=== PATIENT | female | born 1945 | race Caucasian/White ===

== ENCOUNTER 2022-05-10 14:53 | Outpatient (CLI) | payer MEDICARE, BC, SELFPAY ==
--- NOTE | 2022-05-10 15:00 | CRLHL7_ITS ---
For Patients: As a result of the Century Cures Act, medical imaging exams and procedure reports are released immediately into your electronic medical record. You may view this report before your referring provider. If you have questions, please contact your health care provider. INDICATION: Right lateral calf pain. COMPARISON: None. TECHNIQUE: A compression venous ultrasound exam was performed of the right lower extremity using mcfarlane-scale imaging, color Doppler and spectral Doppler analysis. FINDINGS: Sonographic imaging of the right lower extremity demonstrates normal compressibility and color Doppler venous blood flow within the common femoral vein, deep femoral vein, and the proximal greater saphenous vein. Within the thigh, the femoral vein is patent and compressible. At a lower level, the popliteal, peroneal, and posterior tibial veins also show normal compressibility and color Doppler venous blood flow. Limited imaging of the contralateral groin demonstrates a normal spectral waveform and color Doppler venous blood flow within the left common femoral vein. IMPRESSION: Negative for acute DVT in the right lower extremity. Dictated by Rosalia Velarde MD @ 05/11/2022 2:08:42 AM (Electronically Signed)
--- OUTSIDE RECORDS SUMMARY | 2022-05-10 15:00 | XMS_ITS | Encounter Summary ---
:1945 Author Organization [facility] Address [address], [place] [address] Care Team Providers Name Role Phone Feliciano Uribe MD Primary Care Provider Reason for Visit Procedure/Equipment (Routine) - Incomplete Specialty Diagnoses / Procedures Referred By Contact Refer red To Contact Diagnoses Chronic pain of both knees Juan Diego Luo MD Procedures XR Knee Bilat 3 Views [address] [place], [place] [address] Referral ID Status Reason Start Date Expiration Date Visits V isits Requested Authorized [id number] Incomplete 04/07/2020 07/07/2021 1 1 Encounter Details Date Type Department Care Team Description 04/07/2020 Ancillary Amo Juan Diego Luo M D Chronic pain of both Procedure Radiology [address] [address] [place] [address] [phone] Social History Tobacco Use Types Packs/Day Years Used Date Smoking Tobacco: Never Smokeless Tobacco: Never Alcohol Use Standard Drinks/Week Comments Not Currently 0 (1 standard drink = 0.6 oz pure alcoho l) Sex Assigned at Date Recorded Not on file documented as of this encounter Plan of Treatment Not on filedocumented as of this encounter Procedures Procedure Name Priority Date/Time Associated Diagnosis Comme nts XR KNEE BILAT 3 Routine 04/07/2020 10:31 AM Chronic pain of vijay th Results for this VIEWS CDT knees procedure are i n the results section. documented in this encounter Results XR Knee Bilat 3 Views (04/07/2020 10:31 AM CDT) Anatomical Region Laterality Modality Lower Extremity, Knee Digital Radiograph y Specimen (Source) Anatomical Collection Method Collection Time Re ceived Time Location / / Volume Laterality 04/07/2020 10:20 AM CDT Impressions 04/07/2020 11:09 AM CDT COMPARISON: ??None. FINDINGS: ?? Right knee: Moderate tricompartmental guru int space narrowing. Chondrocalcinosis in the medial and lateral compartments. No effusion. Small dorsal patellar osteophytic spurring. Left knee: Mild tricompartmental joint s pace narrowing. Chondrocalcinosis in the lateral compartment. No effusion. Procedure Note Jack Burris MD - 04/07/2020Fo rmatting of this note might be different from the original. IMPRESSION COMPARISON: None. FINDINGS: Right knee: Moderate tricompartmental guru int space narrowing. Chondrocalcinosis in the medial and lateral compartments. No effusion. Small dorsal patellar osteophytic spurring. Left knee: Mild tricompartmental joint s pace narrowing. Chondrocalcinosis in the lateral compartment. No effusion. Juan Diego Luo MD RAD GD documented in this encounter Visit Diagnoses Diagnosis Chronic pain of both knees documented in this encounter Care Teams Junior Financial Analyst Relationship Specialty Start Date End Date Feliciano Uribe MD PCP - General 02/17/[address] [place] [address] documented as of this encounter
--- OUTSIDE RECORDS SUMMARY | 2022-05-10 15:00 | XMS_ITS | Clinical Summary ---
:1945 Author Organization [facility] Address [address] [address] Care Team Providers Name Role Phone Feliciano Uribe MD Primary Care Provider Source Comments You are receiving this document as you are listed as the primary care provider,follow-up provider, or the patient has been referred to you for consultation.This is in compliance with the Medicare and Medicaid EHR Incentive Program,which states Providers who transition their patient to another setting of careor provider of care or refers their patient to another provider of care shouldprovide summarycare record for each transition of care or referral. [address] street Allergies No known active allergies Medications Medication Sig Dispensed Refills Start Date End Date Status amLODIPine (NORVASC) Take 1 Tablet by 90 Tablet 3 03/27/2019 Active 10 MG tablet mouth daily. atorvastatin Take 1 Tablet by 11 03/27/2019 Active (LIPITOR) 10 MG mouth daily. tablet chlorthalidone Take 1 Tablet by 90 Tablet 3 03/27/2019 Active (HYGROTON) 50 MG mouth daily. tablet FLUoxetine (PROZAC) Take 1 Capsule by 90 Capsule 3 03/27/2019 Active 40 MG capsule mouth daily. nitroglycerin Place 1 Tablet 100 Tablet 11 03/27/2019 Active (NITROSTAT) 0.4 MG under tongue every sublingual tablet 5 minutes as needed for Chest Pain. If no relief after 5 min call 911;continue 1 tab every 5 min max 3 tab valACYclovir Take 1 Tablet by 0 03/27/2019 Active (VALTREX) 1 g tablet mouth two times a day. Cholecalciferol 0 03/27/2019 Act johnny (VITAMIN D3) 45592 units TABS levothyroxine Take 175 mcg by 90 Tablet 3 03/27/2019 Active (SYNTHROID) 137 MCG mouth daily. tablet multivitamin Take 1 Tablet by 30 Tablet 11 03/27/2019 Active (THERAGRAN) tablet mouth daily. calcium carbonate Take 1 Tablet by 0 03/27/2019 Active oyster shell (OYSTER mouth two times a SHELL) 500 mg day. elemental Ca tablet drug not in computer Cyanocobalamin 0 03/27/2019 Active (vitamin B 12) alendronate Take 1 Tablet by 12 Tablet 3 04/07/2020 Active (FOSAMAX) 70 MG mouth once every tablet week. Take 30 minutes before first lsol-dojxv-fpjkmggk on. Avoid lying down for 30 minutes. lisinopril (ZESTRIL) Take 1 Tablet by 90 Tablet 3 04/07/2020 Active 10 MG tablet mouth daily. celecoxib (CELEBREX) Take 1 Capsule by 180 Capsule 2 0 Active 100 MG capsule mouth two times daily as needed for Pain. 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 Hypothyroidism 04/07/2019 CAD (coronary artery disease) 04/07/2019 HTN (hypertension) 04/07/2019 Hyperlipidemia 04/07/2019 Anxiety 04/07/2019 Immunizations Name Administration Dates Next Due DT Ped 01/30/1980 Influenza, Unspecified Formulation 06/21/2020 Social History Tobacco Use Types Packs/Day Years Used Date Smoking Tobacco: Never Smokeless Tobacco: Never Alcohol Use Standard Drinks/Week Comments Not Currently 0 (1 standard drink = 0.6 oz pure alcoho l) Sex Assigned at Date Recorded Not on file Last Filed Vital Signs Vital Sign Reading Time Taken Comments Blood Pressure 181/88 04/07/2020 9:21 AM CDT Pulse 78 04/07/2020 9:21 AM CDT Temperature 36.1 ??C (96.9 ??F) 04/07/2020 9:21 AM CDT Respiratory Rate - - Oxygen Saturation - - Inhaled Oxygen Concentration - - Weight 60.8 kg (134 lb) 04/07/2020 9:21 AM CDT Height 152 cm (4' 11.84) 04/07/2019 12:52 PM CDT Body Mass Index 26.31 04/07/2019 12:52 PM CDT Plan of Treatment Health Maintenance Due Date Last Done Comments Hep C Screening (Preventive 1945 Services) Medicare Annual Wellness 1945 Visit COVID-19 Vaccine (#1) 1945 Zoster/Shingles (1 of 2) 1996 Dexa 2011 Influenza (#1) 2022 06/21/2020, 06/21/2020, 06/28/2018, Additional history exists DTaP/Tdap/Td (4 - Tdap) 05/02/2022 05/02/2012, 03/10/2005, 01/30/1980 Pneumococcal 65+ Yrs Completed 01/12/2015, 11/28/2013, 08/27/2007 HepA Aged Out No longer eligib le based on patient 's age to complete this topic HepB Aged Out No longer eligib le based on patient 's age to complete this topic Hib Aged Out No longer eligib le based on patient 's age to complete this topic IPV (Polio) Aged Out No longer eligib le based on patient 's age to complete this topic MCV4 Aged Out No longer eligib le based on patient 's age to complete this topic Insurance Payer Benefit Plan / Subscriber ID Effective Dates Phone Addre ss Type Group MEDICARE MEDICARE [id number] 1997-Presen [phone] M edicare MANAGED CARE t 66 BCBS BCBS BCBS [place] [id number] 2016-Presen [phone] [address] [address] Medicare BLUE t [address] [place] [address] Care Teams Radiologic Technologist Mammogram Relationship Specialty Start Date End Date Feliciano Uribe MD PCP - General 02/17/191999 [place] [address]
--- OUTSIDE RECORDS SUMMARY | 2022-05-10 15:00 | XMS_ITS | Encounter Summary ---
:1945 Author Organization [employer] Address [address] [address] Care Team Providers Name Role Phone Feliciano Uribe MD Primary Care Provider Encounter Details Date Type Department Care Team Description 04/07/2020 Lab Visit [facility] [place] [address] [place] [address] anti-inflammatories (NSAID) [phone] Social History Tobacco Use Types Packs/Day Years Used Date Smoking Tobacco: Never Smokeless Tobacco: Never Alcohol Use Standard Drinks/Week Comments Not Currently 0 (1 standard drink = 0.6 oz pure alcoho l) Sex Assigned at Date Recorded Not on file documented as of this encounter Plan of Treatment Not on filedocumented as of this encounter Procedures Procedure Name Priority Date/Time Associated Comments Diagnosis CBC AND DIFFERENTIAL Routine 04/07/2020 10:11 intermediate manager curren t Results for this PANEL AM CDT use of procedure are i n non-steroidal the results anti-inflammatories section. (NSAID) CREATININE / GFR Routine 04/07/2020 10:11 [facility] current Re sults for this AM CDT use of procedure are i n non-steroidal the results anti-inflammatories section. (NSAID) COMPLETE BLOOD Routine 04/07/2020 10:11 intermediate manager current Resu lts for this COUNT-W/DIFF AM CDT use of procedure are i n non-steroidal the results anti-inflammatories section. (NSAID) AST Routine 04/07/2020 10:11 intermediate manager current Result s for this AM CDT use of procedure are i n non-steroidal the results anti-inflammatories section. (NSAID) documented in this encounter Results Complete Blood Count-W/Diff (04/07/2020 10:11 AM CDT) P athologist Signature WBC 5.9 3.5 - 10.5 04/07/2020 [facility] x10(9)/L 10:47 AM CDT LABORATORY RBC 4.50 3.90 - 04/07/2020 [facility] 5.03 10:47 AM CDT LABORATORY x10(12)/L Hemoglobin 13.3 12.0 - 04/07/2020 [facility] 15.5 g/dL 10:47 AM CDT LABORATORY HCT 41.2 34.9 - 04/07/2020 [facility] 44.5 % 10:47 AM CDT LABORATORY MCV 91.6 80.0 - 04/07/2020 [facility] 100.0 fL 10:47 AM CDT LABORATORY MCH 29.6 27.6 - 04/07/2020 [facility] 33.3 pg 10:47 AM CDT LABORATORY MCHC 32.3 31.5 - 04/07/2020 [facility] 35.2 g/dL 10:47 AM CDT LABORATORY RDW 14.0 11.9 - 04/07/2020 [facility] 15.5 % 10:47 AM CDT LABORATORY Platelets 183 150 - 450 04/07/2020 [facility] x10(9)/L 10:47 AM CDT LABORATORY Automated NRBC 0 <=0 /100 04/07/2020 [facility] WBC 10:47 AM CDT LABORATORY Neutrophil 4.2 1.7 - 7.0 04/07/2020 [facility] Absolute 10(9)/L 10:47 AM CDT LABORATORY Lymphocyte 1.0 1.0 - 4.8 04/07/2020 [facility] Absolute 10(9)/L 10:47 AM CDT LABORATORY Monocytes 0.6 0.2 - 0.9 04/07/2020 [facility] [place] Absolute 10(9)/L 10:47 AM CDT LABORATORY Eosinophil 0.1 0.0 - 0.5 04/07/2020 [facility] Absolute 10(9)/L 10:47 AM CDT LABORATORY Basophil 0.0 0.0 - 0.3 04/07/2020 [facility] Absolute 10(9)/L 10:47 AM CDT LABORATORY Immature Gran % 0.3 0.0 - 0.5 04/07/2020 [facility] % 10:47 AM CDT LABORATORY Specimen Anatomical Collection Method / Collection Time Recei rylee Time (Source) Location / Volume Laterality Blood Venipuncture / 04/07/2020 10:11 0 Unknown AM CDT 10:11 AM CDT Juan Diego Luo MD LAB_1 Performing Organization Address City/[facility]/ZIP Code Phon e Number [facility] [address] [place] [address] AST - Aspartate Aminotransferase (04/07/2020 10:11 AM CDT) P athologist Signature AST (SGOT) 26 10 - 40 U/L 04/07/2020 [facility] 11:00 AM CDT LABORATORY Specimen Anatomical Collection Method / Collection Time Recei rylee Time (Source) Location / Volume Laterality Blood Venipuncture / 04/07/2020 10:11 0 Unknown AM CDT 10:11 AM CDT Juan Diego Luo MD LAB_1 Performing Organization Address [facility] Code Phon e Number [facility] [address] [place] [address] CREAT - Creatinine (04/07/2020 10:11 AM CDT) athologist Signature Creatinine 0.70 0.55 - 04/07/2020 [facility] 1.02 mg/dL 11:00 AM CDT LABORATORY GFR, Estimated >60 >60 04/07/2020 [facility] mL/min/1.7 11:00 AM CDT LABORATORY 3m2 Specimen Anatomical Collection Method / Collection Time Recei rylee Time (Source) Location / Volume Laterality Blood Venipuncture / 04/07/2020 10:11 0 Unknown AM CDT 10:11 AM CDT Juan Diego Luo MD LAB_1 Performing Organization Address City/[facility] Code Phon e Number [facility] [address] [place] [address] documented in this encounter Visit Diagnoses Diagnosis pen[facility]entiary current use of non-steroidal a nti-inflammatories (NSAID) Encounter for long-term (current) use of non-steroidal anti-inflammatories documented in this encounter Care Teams Director Of Sustainability Relationship Specialty Start Date End Date Feliciano Uribe MD PCP - General 02/17/19[address] [place] [address] documented as of this encounter
--- OUTSIDE RECORDS SUMMARY | 2022-05-10 15:00 | XMS_ITS | Encounter Summary ---
:1945 Author Organization [facility] Address [address] [place] [address] Care Team Providers Name Role Phone Feliciano Uribe MD Primary Care Provider Encounter Details Date Type Department Care Team Description 04/08/2019 Notes/Orders [place] [address] [place] [address] [address] [place], [place] [address] (Wo rk) Social History Tobacco Use Types Packs/Day Years Used Date Smoking Tobacco: Never Smokeless Tobacco: Never Alcohol Use Standard Drinks/Week Comments Not Currently 0 (1 standard drink = 0.6 oz pure alcoho l) Sex Assigned at Date Recorded Not on file documented as of this encounter Plan of Treatment Not on filedocumented as of this encounter Visit Diagnoses Not on filedocumented in this encounter Care Teams Manager R D Relationship Specialty Start Date End Date Feliciano Uribe MD PCP - General 02/17/19[address] [place] [address] documented as of this encounter
--- OUTSIDE RECORDS SUMMARY | 2022-05-10 15:00 | XMS_ITS | Encounter Summary ---
:1945 Author Organization [facility] Address [address] [place] [address] Care Team Providers Name Role Phone Unavailable Primary Care Provider Unavailable Encounter Details Date Type Department Care Team Description 08/27/1989 PN Conversion Only STRUCTURAL METAL WORKER [address] [place] [address] Social History Tobacco Use Types Packs/Day Years Used Date Smoking Tobacco: Never Assessed Sex Assigned at Date Recorded Not on file documented as of this encounter Plan of Treatment Not on filedocumented as of this encounter Visit Diagnoses Not on filedocumented in this encounter
--- OUTSIDE RECORDS SUMMARY | 2022-05-10 15:00 | XMS_ITS | Encounter Summary ---
:1945 Author Organization [facility] Address [address], [place] [address] Care Team Providers Name Role Phone Feliciano Uribe MD Primary Care Provider Reason for Referral (Routine) - Closed Specialty Diagnoses / Procedures Referred By Contact Refer red To Contact Diagnoses Primary osteoarthritis of left knee Juan Diego Luo MD Procedures Triamcinolone Acet Inj Nos: (per 10 mg) [address] [place], [place] [address] Referral ID Status Reason Start Date Expiration Date Visits Requ ested Visits Authorized [id number] Closed 04/07/2020 07/07/2021 1 1 Procedure/Equipment (Routine) - Incomplete Specialty Diagnoses / Procedures Referred By Contact Refer red To Contact Diagnoses Chronic pain of both knees Juan Diego Luo MD Procedures XR Knee Bilat 3 Views [address] [place], [place] [address] Referral ID Status Reason Start Date Expiration Date Visits V isits Requested Authorized [id number] Incomplete 04/07/2020 07/07/2021 1 1 Reason for Visit Reason Comments Follow-up Encounter Details Date Type Department Care Team Description 04/07/2020 Office Visit Juan Diego Matthews M D Pseudogout (Primary Dx); Rheumatology [address] [facility] Chondrocalcinosis; [address] [facility] Primary osteoarthritis of both ankles; [place] [address] [place], [place] director long term care current use of non -steroidal anti-inflammatories (NSAID); [phone] [id number] Chronic pain of both knees; [phone] Primary osteoar thritis of left knee (Work) Social History Tobacco Use Types Packs/Day Years Used Date Smoking Tobacco: Never Smokeless Tobacco: Never Alcohol Use Standard Drinks/Week Comments Not Currently 0 (1 standard drink = 0.6 oz pure alcoho l) Sex Assigned at Date Recorded Not on file documented as of this encounter Last Filed Vital Signs Vital Sign Reading Time Taken Comments Blood Pressure 181/88 04/07/2020 9:21 AM CDT Pulse 78 04/07/2020 9:21 AM CDT Temperature 36.1 ??C (96.9 ??F) 04/07/2020 9:21 AM CDT Respiratory Rate - - Oxygen Saturation - - Inhaled Oxygen Concentration - - Weight 60.8 kg (134 lb) 04/07/2020 9:21 AM CDT Height - - Body Mass Index 26.31 04/07/2019 12:52 PM CDT documented in this encounter Patient Instructions Patient InstructionsJuan Diego Luo MD - 04/07/2020 9:30 AM CDT Most of your pain is likely from osteoarthritis = age related cartilage wear. On top that, you've occasionally had pseudogout, which is usually red, swollen, very painful - for that you can use prednisone. I've sent in a new prescription for prednisone. Lets x-ray the knees today, lower level (basement) of this building. I suspect you have some arthritis there; we could do a cortisone shot in the knee. Also, today, lab - lab is on this floor, right across the matias. I'll be checking blood counts, liverand kidney function. Instead of naproxen (aleve), I'd recommend celebrex (celecoxib) 100 mg up to twice daily as needed for pain. Tylenol 1000 mg up to 3 times daily is also safe and can be used with the celecoxib. Recheck in 6 months, sooner if problem. documented in this encounter Progress Notes Juan Diego Luo MD - 04/07/2020 9:30 AM CDT RHEUMATOLOGY RECHECK This note was generated with voice activated robotics mechanic software and may contain typographical and word substitution errors. CC: Follow-up probable episodes of pseudogout, chondrocalcinosis, mild hyperuricemia, osteoarthritisof the ankles, osteoarthritis knees HPI: I initially evaluated her March,, she gets her primary care at [facility]. She described occasional attacks of severe ankle pain. She had an episode in June, where the right wrist got red and swollen. X-ray had shown chondrocalcinosis at the triangular fibrocartilage of the wrist. I gave her prednisone 20-40 mg for 1-10 days for gout attacks. She also had mild hyperuricemia, uricacid 7.8 in 2013 and was on chlorthalidone. She also had some osteoarthritis of the ankles but was still able to walk several miles daily. She returns for a 1 year follow-up. Interval history is reviewed. In 2018 she underwent a left ankle arthroscopic debridement the osteochondral lesion. She has done pretty well with this, is able to walk 2 or 3 miles daily. A new issue is that her left knee bothers her, she feels like it can give out at times. It can bother with walking sometimes. She estimates that she may have had 1 or 2 attacks of pseudogout, 1 in the ankle, 1 in the wrist since I saw her last and she use prednisone appropriately. She points out that she has been taking Aleve up to 2 tablets twice daily. She actually has a history of a gastric bypass and I have told her probably that is not a good idea. We are going to try Celebrex instead which I think would be safer. She has a little bit of dermatitis on the right 2nd finger, I suggested some topical hydrocortisone cream. She describes intermittent paresthesias hands and feet but nothing progressive. SH: , retired PMH: Updated in EMR MEDS: Updated in EMR but notable for: Prednisone 20-40 mg daily for 1-10 days for pseudogout or goutattacks. Aleve 2 tablets b.i.d. to be discontinued and switched to Celebrex 100 mg b.i.d. ADR/ALLERGIES: Updated in EMR ROS: Review of systems form from today's visit was reviewed with the patient, placed into SDOC, and is negative except: PAIN & RAPID3: In flowsheet if completed by patient. OBJECTIVE: VS: Per flow sheet. General: NAD. Eyes: Externally clear. Chest: CTA Musculoskeletal: All 4 limbs are examined. Mildly reduced range of motion right wrist but no swelling or erythema. Elbows shoulders and hips move normally. No warmth swelling or erythema in the knees, minimal crepitation. Ankles have good range of motion without swelling. 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 It sounds like she has had a couple episodes of pseudogout and I haverenewed her prednisone to take as needed for those flare ups. 2: She describes some new or issues in the left knee, probably has some degenerative change there. X-rays were obtained today. She would like to try cortisone injection for the left knee and after verbal consent and sterile prep, the left knee was injected using a medial subpatellar approach with 60 mg of triamcinolone and 3 cc of lidocaine. She tolerated it well. 3: She has actually been taking Aleve up to 2 tablets twice daily to manage arthritis pain. She has a history of a gastric bypass and I would worry about developing an anastomotic ulcer using the Aleve. Therefore I have suggested we try Celebrex 100 mg b.i.d. which is safer on the stomach and she can also supplement this with Tylenol. I will obtain CBC AST and creatinine today because of chronic NSAID usage. 4: Given the new medication of Celebrex and the cortisone injection in the knee, we are going to plan have her come back in about 6 months, sooner if problem arises. Feliciano Uribe MD, [facility], [place] documented in this encounter Plan of Treatment Not on filedocumented as of this encounter Results XR Knee Bilat 3 [...] effusion. Juan Diego Luo MD RAD GD AST - Aspartate Aminotransferase (04/07/2020 10:11 AM CDT) athologist Signature AST (SGOT) 26 10 - 40 U/L 04/07/2020 [facility] 11:00 AM CDT LABORATORY Specimen Anatomical Collection Method / Collection Time Recei rylee Time (Source) Location / Volume Laterality Blood Venipuncture / 04/07/2020 10:11 0 Unknown AM CDT 10:11 AM CDT Juan Diego Luo MD LAB_1 Performing Organization Address City/State/ZIP Code Phon e Number [facility] [address] [place] [address] CREAT - Creatinine (04/07/2020 10:11 AM CDT) athologist Signature Creatinine 0.70 0.55 - 04/07/2020 [facility] 1.02 mg/dL 11:00 AM CDT LABORATORY GFR, Estimated >60 >60 04/07/2020 [facility] mL/min/1.7 11:00 AM CDT LABORATORY 3m2 Specimen Anatomical Collection Method / Collection Time Recei rylee Time (Source) Location / Volume Laterality Blood Venipuncture / 04/07/2020 10:11 0 Unknown AM CDT 10:11 AM CDT Juan Diego Luo MD LAB_1 Performing Organization Address City/State/ZIP Code Phon e Number [facility] [address] [place] [address] documented in this encounter Visit Diagnoses Diagnosis Pseudogout - Primary Other disorder of calcium metabolism Chondrocalcinosis Other disorder of calcium metabolism Primary osteoarthritis of both ankles director long term care current use of non-steroidal a nti-inflammatories (NSAID) Encounter for long-term (current) use of non-steroidal anti-inflammatories Chronic pain of both knees Primary osteoarthritis of left knee Primary localized osteoarthrosis, lower leg Chronic pain of both knees documented in this encounter Care Teams Respiratory Care Instructor Relationship Specialty Start Date End Date Feliciano Uribe MD PCP - General 02/17/191999 [place], [place] [id number] documented as of this encounter
--- OUTSIDE RECORDS SUMMARY | 2022-05-10 15:00 | XMS_ITS | Encounter Summary ---
:1945 Author Organization [employer] Address [address] [place] [address] Care Team Providers Name Role Phone Feliciano Uribe MD Primary Care Provider Reason for Visit Reason Comments Consult, New Patient Encounter Details Date Type Department Care Team Description 04/07/2019 Initial Consult Juan Dieog Matthews, Pseudogout (Primary Dx); Rheumatology Chondrocalcinosis; [address] Primary osteo arthritis of both ankles; [address] [address] Osteochondritis dessicans; [facility], Hypothyroid ism, unspecified type [address] [place] [address] [phone] Social History Tobacco Use Types Packs/Day Years Used Date Smoking Tobacco: Never Smokeless Tobacco: Never Alcohol Use Standard Drinks/Week Comments Not Currently 0 (1 standard drink = 0.6 oz pure alcoho l) Sex Assigned at Date Recorded Not on file documented as of this encounter Last Filed Vital Signs Vital Sign Reading Time Taken Comments Blood Pressure 157/73 04/07/2019 12:52 PM CDT Pulse 78 04/07/2019 12:52 PM CDT Temperature - - Respiratory Rate - - Oxygen Saturation - - Inhaled Oxygen Concentration - - Weight 63.5 kg (140 lb) 04/07/2019 12:52 PM CDT Height 152 cm (4' 11.84) 04/07/2019 12:52 PM CDT Body Mass Index 27.49 04/07/2019 12:52 PM CDT documented in this encounter Patient Instructions Patient InstructionsJuan Diego Luo MD - 04/07/2019 1:30 PM CDT No doubt, your ankle have plain old arthritis = osteoarthritis = degenerative arthritis; we can see that on the x-ray. There also are these osteochondral lesions of the talus (part of the ankle). Seewhat the ankle specialist has to say about that, I'm doubtful they are a major part of your pain. Your wrist x-ray at december showed chondrocalcinosis = calcium crystals in the cartilage of the wrist.This is not uncommon with aging and arthritis and has nothing to do with calcium intake. Sometimes the body decides to attack those crystals and sends in inflammation cells and that can cause swelling, bad pain, warmth, and redness. Those attacks are very likely pseudogout (like gout, but instead ofuric acid crystals, they are calcium crystals). There is nothing to take away those crystals (for pseudogout). There are 3 types of medications thatcan help an attack: 1)ibuprofen or other cousins of it 2)colchicine 3)prednisone I could give you a prescription of prednisone 20 mg tabs, 1-2 tabs daily for 1- 10 days for an attack. You would not use this for day to day aches and pains. The joint needs to have a major change. You also have an elevated uric acid, which is the cause of gout, so its hard to totally rule out gout. The chlorthalidone you take raises uric acid, so if you could get off that, your gout risk would be less. Only way to really prove gout or pseudogout is to remove some fluid during an attack. For the osteoarthritis (aging) - tylenol 1000 mg up to 3 times daily. Can try aspercreme with lidocaine over the counter on any sore area. Pseudogout Definition Pseudogout (TAI-ehr-yfam) is a form of arthritis characterized by sudden, painful swelling in one ormore of your joints. These episodes can last for days or weeks. Pseudogout typically occurs in olderadults and most commonly affects the knee. Also called calcium pyrophosphate deposition (CPPD) disease, pseudogout gets its common name from its similarity to gout. Pseudogout and gout both occur when crystals -- one type in gout, another type in pseudogout -- form in the fluid that lubricates joint linings, causing pain and inflammation. Besides affecting the knees, pseudogout may develop in the ankles, wrists and elbows, while gout tends toaffect the big toe. It isn't clear why crystals form in your joints and cause pseudogout. Although you can't get rid of the crystals, there are treatments to help you relieve the pain and reduce the inflammation of pseudogout. Symptoms Pseudogout most commonly affects the knees. Other joints that may be involved include the ankles, hands, wrists, elbows and shoulders. If you have pseudogout, you might experience: Swelling of the affected joint or joints Warmth Severe joint pain Some people experience recurring pseudogout attacks. When to see a doctor Make an appointment with your doctor if you experience sudden, intense joint pain and swelling. Causes Pseudogout occurs when calcium pyrophosphate dihydrate (CPPD) crystals migrate from the cartilage inand around your joints to the lining of your joint (synovium), causing inflammation. Although it isn't clear why CPPD crystals form, they appear to be associated with the aging process.However, many older people have CPPD crystals in their joints, but most don't experience signs and symptoms of pseudogout. Symptoms may be more likely to develop when CPPD crystals form and you have: A family history of pseudogout Joint trauma, such as an injury to or surgery on the affected joint Certain medical conditions, such as hyperparathyroidism and amyloidosis Pseudogout is actually just one feature of calcium pyrophosphate deposition disease. This condition can cause calcification of joint cartilage (chondrocalcinosis) and joint degeneration as well as pseudogout, though you won't necessarily experience all of these manifestations. Risk factors Several factors are known to increase your risk of developing CPPD crystals that can increase your risk of pseudogout, including: Older age. Older adults are more likely to experience pseudogout because CPPD crystals are more commonly found in the joints of older people. Joint trauma. Trauma to a joint, such as a serious injury or a joint replacement surgery, increases your risk of developing CPPD crystals in your joints. Genetic disorder. Families can pass predisposition to CPPD crystals through their genes. People withfamilial chondrocalcinosis, the name for the inherited condition, tend to develop signs and symptomsof CPPD disease at younger ages. Complications The CPPD crystal deposits that cause pseudogout can also lead to joint damage. Bones in the affectedjoint or joints can develop cysts, bone spurs and cartilage loss. Further damage can lead to fractures. Joint damage associated with CPPD crystals sometimes mimics the signs and symptoms of osteoarthritisor rheumatoid arthritis. Tests and diagnosis Pseudogout signs and symptoms mimic those of gout, so your doctor may first suspect gout. Tests can rule out gout as a cause of your signs and symptoms. To determine whether pseudogout is causing your pain, your doctor may have you undergo these tests: Analysis of joint fluid. Your doctor inserts a needle into your joint to extract a small sample of joint fluid for analysis with a microscope. He or she looks for CPPD crystals in the fluid. X-rays. X-rays of your knee can reveal other conditions caused by CPPD crystals, such as crystal deposits in the joint cartilage (chondrocalcinosis) and joint damage. Your doctor may want to rule out other causes of joint pain and inflammation, such as infection, gout, injury and rheumatoid arthritis. Treatments and drugs Pseudogout treatment aims to reduce your pain and swelling. No treatments can rid your joints of theCPPD crystals that lead to pseudogout. Treatments to relieve the pain and inflammation of pseudogout include: Nonsteroidal anti-inflammatory drugs (NSAIDs), such as ibuprofen (Advil, Motrin, others), naproxen (Aleve) and indomethacin (Indocin). NSAIDs can cause stomach bleeding and decreased kidney function, especially in older adults, so discuss these risks with your doctor. Colchicine. This medication reduces inflammation in people with gout, but it may also be useful in people with pseudogout who can't take NSAIDs. Side effects include stomach pain, nausea, diarrhea and vomiting. Rare side effects include bone marrow suppression and intestinal bleeding. To minimize these risks, your doctor will prescribe the lowest dose possible to manage flare-ups -- typically not more than two tablets daily. Joint aspiration and injection. To relieve pain and pressure in an affected joint, your doctor inserts a needle and removes some of the joint fluid. Then he or she injects a corticosteroid to decrease inflammation and an anesthetic to temporarily numb your joint. Rest. Keeping your affected joints still in addition to taking medications may relieve pain and swelling. Your doctor may recommend limiting your activity for a short time. If your pseudogout is caused by joint trauma or a disease, such as hemochromatosis, your doctor alsowill treat the underlying condition. Lifestyle and home remedies Home treatment measures that commonly help with joint pain may ease the symptoms of pseudogout. During flare-ups, you may find relief by: Resting and elevating the affected joint Applying heat to the affected area Taking ksoc-ifu-teaauta NSAIDs, such as ibuprofen (Advil, Motrin, others) and naproxen (Aleve) Regular exercise, especially activities that strengthen the muscles around your affected joints, mayhelp you keep those joints mobile. Ask your doctor to recommend a safe and effective exercise program for you. Prevention If you experience repeated pseudogout attacks, you and your doctor may consider medication that may prevent attacks from occurring. Low doses of colchicine, a drug commonly used to prevent and treat gout, may reduce the number of pseudogout attacks you experience. Side effects, such as stomach problems, can occur in people taking colchicine. Discuss the benefits and risks of colchicine with your doctor. Symptoms documented in this encounter Progress Notes Juan Diego Luo MD - 04/07/2019 1:30 PM CDT RHEUMATOLOGY CONSULT NOTE This note was generated with voice activated rn medical surgical software and may contain typographical and word substitution errors. Consultation was requested by: Feliciano Uribe MD, [facility], family medicine HPI: She is a 73-year-old female. No internal records are available. I received and reviewed records from [facility] Review of lab data from 2019 shows normal creatinine, normal calcium. She had been seen in clinic in February, with bilateral ankle pain, worse on the right. In December, the pain has gotten so severe that even the sheets touching the ankles would cause severe pain. She had x-rays in the ankles which showed narrowing of the tibiotalarjoints consistent with osteoarthritis and bilateral medial talus osteochondral lesions in some plantar and posterior calcaneal spurs. She had been referred to an ankle surgeon, wanted to maintain active lifestyle. We reviewed her history in detail. She actually did see an orthopedist about her ankles but has beenreferred to yet another one, presumably a foot and ankle specialist about the osteochondral lesions. She recalls that in the early 80s she had polyarthralgias and may have had some inflammatory condition but this was not definitively diagnosed, apparently with serologically negative. She has had a few discrete attacks, 1 was June 2018 when the right wrist got red and swollen. She happened to be at [facility] following up on her Graves disease and an x-ray was done which showedchondrocalcinosis of the triangular fibrocartilage at the wrist. She has a history of kidney stones which were calcium. She has history of gastric bypass. She had another episode in November, where her right ankle got very painful and swollen. This wentaway in several days. I note that her uric acid was modestly elevated at 7.8 in 2014 and she is on chlorthalidone. She has other more degenerative sound in arthralgias such as some stiffness that can happen in the hips, shoulders, wrists, sometimes her ankles feel like they could give way, but despite that she is able to walk often 3 miles per day. PMH: Hypothyroidism, coronary artery disease, hypertension, hyperlipidemia, neck and back pain, depression, anxiety, gastric bypass, probably pseudogout MEDS: Updated in EMR but notable for: Amlodipine 10 mg daily, atorvastatin 10 mg daily, chlorthalidone 50 mg daily, fluoxetine 40 mg daily, Valtrex p.r.n., vitamin-D, levothyroxine, calcium ADRs: None FH: Positive for breast cancer, hypertension, heart disease SH: , retired PAIN & RAPID3: In flowsheet if completed by patient, 05/06 ROS: Comprehensive review of systems form filled out for today's visit was reviewed with the patient, placed into SDOC, and is otherwise negative except: OBJECTIVE: VS: Per flow sheet. Wt: 140 lb General: NAD. Eyes: Externally clear. Mouth: Moist mucous membranes. No ulcers. Lymph: No cervical or groin adenopathy. Chest: CTA. Heart: RRR, no M/R/G. Abdomen: Bowel sounds present, soft, nontender, no palpable HSM. Musculoskeletal: All 4 limbs examined. The joint exam was negative for synovitis, deformity, or instability with the exception of: Mild degenerative changes in the fingers, no synovitis. Elbows shoulders and hips move normally. Mild tenderness at the bilateral ankles. 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 The episode of right wrist pain and swelling she describes in conjunction with the chondrocalcinosis seen on prior wrist x-ray would suggest that she likely had pseudogout. This results from calcium pyrophosphate crystals. Unfortunately, these cannot be removed and are not related to dietary calcium. Thankfully, the attacks tend to be infrequent. She also had another attack in her right ankle which may also have been pseudogout. For those attacks, I recommend short course of prednisone 20-40 mg of prednisone for 1-10 days. If she wanted to really get to a crystal positive diagnosis she would need to call us and we would try to work RN for attempted aspiration of the inflamed joint. 2: I do note that she has mild hyperuricemia on blood work done elsewhere, uric acid was 7.8 at [facility] in 2013. Most likely this relates to chlorthalidone. If there were an alternative non diuretic blood pressure medication that would work for her, this may be something to consider. 3: No doubt, she has osteoarthritis of the ankles which gives her more of day-to-day difficulty but she still is able to walk 3 miles. We discussed Tylenol 1 g t.i.d. p.r.n. and some abyb-kqo-jwzjsoy Aspercreme since Voltaren gel did not appear to be covered by her insurance. 4: We will have her check back with us in 1 year, sooner if episodes of pseudogout become problematic or not managed with prednisone. Thanks for referring this nice lady. 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
== END 2022-05-10 14:54 | disposition home or self-care (01) ==
PROVIDERS: PCP Family Medicine; Visit Provider Physical Medicine & Rehabilitation Pain Medicine
DX: M79.651 Pain in right thigh (principal); R09.89 Other specified symptoms and signs involving the circulatory and respiratory systems
CPT/HCPCS: 93971

== ENCOUNTER 2022-05-22 09:47 | Outpatient (CLI) | payer MEDICARE, BC, SELFPAY ==
--- OUTSIDE RECORDS SUMMARY | 2022-05-22 09:50 | XMS_ITS | Encounter Summary ---
:1945 Author Organization [facility] Address [address] [place] [address] Care Team Providers Name Role Phone Feliciano Uribe MD Primary Care Provider Encounter Details Date Type Department Care Team Description 04/08/2019 Notes/Orders [place] [address] [address] [place], [place] [address] (Wo rk) Social History Tobacco Use Types [...] on filedocumented in this encounter Care Teams Shed Boss Relationship Specialty Start Date End Date Feliciano Uribe MD PCP - General 02/17/191999 [place] [address] documented as of this encounter
--- OUTSIDE RECORDS SUMMARY | 2022-05-22 09:50 | XMS_ITS | Encounter Summary ---
:1945 Author Organization [facility] Address [address], [place] [address] Care Team Providers Name Role Phone Feliciano Uribe MD Primary Care Provider Reason for Visit Procedure/Equipment (Routine) - Incomplete Specialty Diagnoses / Procedures Referred By Contact Refer red To Contact Diagnoses Chronic pain of both knees Juan Diego Luo MD Procedures XR Knee Bilat 3 Views [address] [place], [place] [address] Referral ID Status Reason Start Date Expiration Date Visits V isits Requested Authorized [id number] Incomplete 04/07/2020 07/07/2021 1 1 Encounter Details Date Type Department Care Team Description 04/07/2020 Ancillary [place] Juan Diego Luo M D Chronic pain of both Procedure Radiology [address] [address] [place] [address] [phone] Social History Tobacco Use Types Packs/Day Years [...] knees documented in this encounter Care Teams Planning And Analysis Manager Relationship Specialty Start Date End Date Feliciano Uribe MD PCP - General 02/17/191999 [place] [address] documented as of this encounter
--- OUTSIDE RECORDS SUMMARY | 2022-05-22 09:50 | XMS_ITS | Clinical Summary ---
:1945 Author Organization [employer] Address [address], [place] [address] Care Team Providers Name Role Phone Feliciano rUibe MD Primary Care Provider Source Comments You [...] for each transition of care or referral. Grain Management Allergies No known active allergies Medications Medication [...] Cholecalciferol 0 03/27/2019 Act johnny (VITAMIN D3) 49984 units TABS levothyroxine Take 175 mcg by [...] tablet week. Take 30 minutes before first cgvo-hoxsu-qajgdchx on. Avoid lying down for 30 minutes. [...] Phone Addre ss Type Group MEDICARE MEDICARE [id number] 1997-Presen [phone] M edicare MANAGED CARE t 65 BCBS BCBS BCBS CADDO [id number] 2016-Presen [phone] [address] [address] Medicare BLUE t [address] [place] [address] Care Teams Garden Machinery Mechanic Relationship Specialty Start Date End Date Feliciano Uribe MD PCP - General 02/17/191999 [place] [address]
--- OUTSIDE RECORDS SUMMARY | 2022-05-22 09:50 | XMS_ITS | Encounter Summary ---
:1945 Author Organization [facility] Address [address] [place] [address] Care Team Providers Name Role Phone Feliciano Uribe MD Primary Care Provider Reason for Visit Reason Comments Consult, New Patient Encounter Details Date Type Department Care Team Description 04/07/2019 Initial Consult Juan Diego Matthews, Pseudogout (Primary Dx); Rheumatology Chondrocalcinosis; [address] Primary osteo arthritis of both ankles; [address] Osteochondritis dessicans; [facility], Hypothyroid ism, [place] [address] [place] [address] [phone] Social History Tobacco Use Types Packs/Day Years [...] on any sore area. Pseudogout Definition Pseudogout (CLK-pgk-kler) is a form of arthritis characterized by [...] Applying heat to the affected area Taking dwgq-lch-qeysuyx NSAIDs, such as ibuprofen (Advil, Motrin, others) [...] This note was generated with voice activated melter clerk software and may contain typographical and word substitution errors. Consultation was requested by: Feliciano Uribe MD, [facility], family medicine HPI: She is a 73-year-old female. No internal records are available. I received and reviewed records from [facility]. Review of lab data from 2019 shows [...] and swollen. She happened to be at [facility] following up on her Graves disease and [...] seen on hand x-ray [facility] 3: Mild hyperuricemia, also puts her at [...] done elsewhere, uric acid was 7.8 at [facility] in 2013. Most likely this relates to chlorthalidone. If there were an alternative non diuretic blood pressure medication that would work for her, this may be something to consider. 3: No doubt, she has osteoarthritis of the ankles which gives her more of day-to-day difficulty but she still is able to walk 3 miles. We discussed Tylenol 1 g t.i.d. p.r.n. and some xfxa-ogt-klytgwz Aspercreme since Voltaren gel did not appear to be covered by her insurance. 4: We will have her check back with us in 1 year, sooner if episodes of pseudogout become problematic or not managed with prednisone. Thanks for referring this nice lady. 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
--- OUTSIDE RECORDS SUMMARY | 2022-05-22 09:50 | XMS_ITS | Encounter Summary ---
:1945 Author Organization [facility] Address [address] [place] [address] Care Team Providers Name Role Phone Unavailable Primary Care Provider Unavailable Encounter Details Date Type Department Care Team Description 08/27/1989 PN Conversion Only [employer] [address] [place] [address] Social History Tobacco Use Types Packs/Day Years Used Date Smoking Tobacco: Never Assessed Sex Assigned at Date Recorded Not on file documented as of this encounter Plan of Treatment Not on filedocumented as of this encounter Visit Diagnoses Not on filedocumented in this encounter
--- OUTSIDE RECORDS SUMMARY | 2022-05-22 09:50 | XMS_ITS | Encounter Summary ---
:1945 Author Organization [facility] Address [address], [place] [address] Care Team Providers Name Role Phone Feliciano Uribe MD Primary Care Provider Reason for Referral (Routine) - Closed Specialty Diagnoses / Procedures Referred By Contact Refer red To Contact Diagnoses Primary osteoarthritis of left knee Juan Diego Luo MD Procedures Triamcinolone Acet Inj Nos: (per 10 mg) [address] [place], [place] [address] Referral ID Status Reason Start Date Expiration Date Visits Requ ested Visits Authorized [id number] Closed 04/07/2020 07/07/2021 1 1 Procedure/Equipment (Routine) - Incomplete Specialty Diagnoses / Procedures Referred By Contact Refer red To Contact Diagnoses Chronic pain of both knees Juan Diego Luo MD Procedures XR Knee Bilat 3 Views [address] [place], [place] [address] Referral ID Status Reason Start Date Expiration Date Visits V isits Requested Authorized [id number] Incomplete 04/07/2020 07/07/2021 1 1 Reason for Visit Reason Comments Follow-up Encounter Details Date Type Department Care Team Description 04/07/2020 Office Visit Juan Diego Matthews M D Pseudogout (Primary Dx); Rheumatology [address] [facility] Chondrocalcinosis; [address] [facility] Primary osteoarthritis of both ankles; [place] [address] [place], [place]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 CC: Follow-up probable episodes of pseudogout, chondrocalcinosis, mild hyperuricemia, osteoarthritisof the ankles, osteoarthritis knees HPI: I initially evaluated her March,, she gets her primary care at [facility]. She described occasional attacks of [...] ankle) 2: [facility] 3: Mild hyperuricemia, also puts her [...] sooner if problem arises. Feliciano Uribe MD, [facility], [place] documented in this encounter Plan of [...] (SGOT) 26 10 - 40 U/L 04/07/2020 [facility] 11:00 AM CDT LABORATORY Specimen Anatomical Collection Method / Collection Time Recei rylee Time (Source) Location / Volume Laterality Blood Venipuncture / 04/07/2020 10:11 0 Unknown AM CDT 10:11 AM CDT Juan Diego Luo MD LAB_1 Performing Organization Address City/State/ZIP Code Phon e Number [facility] [address] [place] [address] CREAT - Creatinine (04/07/2020 10:11 AM CDT) athologist Signature Creatinine 0.70 0.55 - 04/07/2020 [facility] 1.02 mg/dL 11:00 AM CDT LABORATORY GFR, Estimated >60 >60 04/07/2020 [facility] mL/min/1.7 11:00 AM CDT LABORATORY 3m2 Specimen Anatomical Collection Method / Collection Time Recei rylee Time (Source) Location / Volume Laterality Blood Venipuncture / 04/07/2020 10:11 0 Unknown AM CDT 10:11 AM CDT Juan Diego Luo MD LAB_1 Performing Organization Address City/State/ZIP Code Phon e Number [facility] [address] [place] [address] documented in this encounter Visit Diagnoses Diagnosis Pseudogout - Primary Other disorder of calcium metabolism Chondrocalcinosis Other disorder of calcium metabolism Primary osteoarthritis of both ankles 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
--- OUTSIDE RECORDS SUMMARY | 2022-05-22 09:50 | XMS_ITS | Encounter Summary ---
:1945 Author Organization [employer] Address [address], [place] [address] Care Team Providers Name Role Phone Feliciano Uribe MD Primary Care Provider Encounter Details Date Type Department Care Team Description 04/07/2020 Lab Visit [place] [place] [address] [employer] [place] [address] anti-inflammatories (NSAID) [phone] Social History Tobacco Use Types Packs/Day Years [...] Diagnosis CBC AND DIFFERENTIAL Routine 04/07/2020 10:11 buttermaker curren t Results for this PANEL AM CDT use of procedure are i n non-steroidal the results anti-inflammatories section. (NSAID) CREATININE / GFR Routine 04/07/2020 10:11 senior care current Re sults for this AM CDT use of procedure are i n non-steroidal the results anti-inflammatories section. (NSAID) COMPLETE BLOOD Routine 04/07/2020 10:11 buttermaker current Resu lts for this COUNT-W/DIFF AM CDT use of procedure are i n non-steroidal the results anti-inflammatories section. (NSAID) AST Routine 04/07/2020 10:11 buttermaker current Result s for this AM CDT use of procedure are i n non-steroidal the results anti-inflammatories section. (NSAID) documented in this encounter Results Complete Blood Count-W/Diff (04/07/2020 10:11 AM CDT) P athologist Signature WBC 5.9 3.5 - 10.5 04/07/2020 [facility] x10(9)/L 10:47 AM CDT LABORATORY RBC 4.50 3.90 - 04/07/2020 [facility] 5.03 10:47 AM CDT LABORATORY x10(12)/L Hemoglobin 13.3 12.0 - 04/07/2020 [facility] 15.5 g/dL 10:47 AM CDT LABORATORY HCT 41.2 34.9 - 04/07/2020 [facility] 44.5 % 10:47 AM CDT LABORATORY MCV 91.6 80.0 - 04/07/2020 [facility] 100.0 fL 10:47 AM CDT LABORATORY MCH 29.6 27.6 - 04/07/2020 [facility] 33.3 pg 10:47 AM CDT LABORATORY MCHC 32.3 31.5 - 04/07/2020 [facility] 35.2 g/dL 10:47 AM CDT LABORATORY RDW 14.0 11.9 - 04/07/2020 [facility] 15.5 % 10:47 AM CDT LABORATORY Platelets 183 150 - 450 04/07/2020 [facility] x10(9)/L 10:47 AM CDT LABORATORY Automated NRBC 0 <=0 /100 04/07/2020 [facility] WBC 10:47 AM CDT LABORATORY Neutrophil 4.2 1.7 - 7.0 04/07/2020 [facility] Absolute 10(9)/L 10:47 AM CDT LABORATORY Lymphocyte 1.0 1.0 - 4.8 04/07/2020 [facility] Absolute 10(9)/L 10:47 AM CDT LABORATORY Monocytes 0.6 0.2 - 0.9 04/07/2020 [facility] Absolute 10(9)/L 10:47 AM CDT LABORATORY Eosinophil 0.1 0.0 - 0.5 04/07/2020 [facility] Absolute 10(9)/L 10:47 AM CDT LABORATORY Basophil 0.0 0.0 - 0.3 04/07/2020 [facility] Absolute 10(9)/L 10:47 AM CDT LABORATORY Immature Gran % 0.3 0.0 - 0.5 04/07/2020 [facility] % 10:47 AM CDT LABORATORY Specimen Anatomical Collection Method / Collection Time Recei rylee Time (Source) Location / Volume Laterality Blood Venipuncture / 04/07/2020 10:11 0 Unknown AM CDT 10:11 AM CDT Juan Diego Luo MD LAB_1 Performing Organization Address City/[facility]/ZIP Code Phon e Number [facility] [address] [place] [address] AST - Aspartate Aminotransferase (04/07/2020 10:11 AM CDT) P athologist Signature AST (SGOT) 26 10 - 40 U/L 04/07/2020 [facility] 11:00 AM CDT LABORATORY Specimen Anatomical Collection Method / Collection Time Recei rylee Time (Source) Location / Volume Laterality Blood Venipuncture / 04/07/2020 10:11 0 Unknown AM CDT 10:11 AM CDT Juan Diego Luo MD LAB_1 Performing Organization Address [facility] Code Phon e Number [facility] [address] [place] [address] CREAT - Creatinine (04/07/2020 10:11 AM CDT) athologist Signature Creatinine 0.70 0.55 - 04/07/2020 [facility] 1.02 mg/dL 11:00 AM CDT LABORATORY GFR, Estimated >60 >60 04/07/2020 [facility] mL/min/1.7 11:00 AM CDT LABORATORY 3m2 Specimen Anatomical Collection Method / Collection Time Recei rylee Time (Source) Location / Volume Laterality Blood Venipuncture / 04/07/2020 10:11 0 Unknown AM CDT 10:11 AM CDT Juan Diego Luo MD LAB_1 Performing Organization Address City/[facility] Code Phon e Number [facility] [address] [place] [address] documented in this encounter Visit Diagnoses Diagnosis senior care current use of non-steroidal a nti-inflammatories (NSAID) Encounter for long-term (current) use of non-steroidal anti-inflammatories documented in this encounter Care Teams Aircraft Machinist Relationship Specialty Start Date End Date Feliciano Uribe MD PCP - General 02/17/191999 [place] [address] documented as of this encounter
--- NOTE | 2022-05-22 10:15 | MR_ITS ---
[address] [address] Phone:?[phone] Fax:?[phone] Referring Physician Information: Jah Lobo D.O. [address] [place] [address] Phone:?[phone] Fax:?[phone] Patient:?Gato Jimenez D.O.B:?1945 Sex:?Female Phone:?[phone] [facility] MRN:?[id number] Exam Date:?05/22/2022 ? EXAM: MRI LUMBAR SPINE WITHOUT CONTRAST CLINICAL INFORMATION: 77-year-old woman with low back pain. TECHNICAL INFORMATION: MRI lumbar spine was obtained on 1.5 Lucy magnet including sagittal T2, T1, and STIR images. Axial T2 and T1-weighted images. INTERPRETATION: This exam is compared to MRI study dated 09/17/2021. There is normal lordotic curvature of the lumbar spine. No marrow edema within the lumbar vertebral bodies. No loss of vertebral body height. The conus is at the L1 level and is normal in appearance. There is a 12 mm cystic lesion in the right kidney most likely representing a renal cyst. L5-S1: Mild degenerative disc disease and disc bulge without central spinal canal or foraminal stenosis. Mild bilateral facet arthropathy. L4-5: Moderate degenerative disc disease and minimal anterolisthesis with disc bulge. Moderate right and mild left facet arthropathy. Moderate bilateral AP foraminal stenosis similar to the comparison study. L3-4: Moderate to severe degenerative disc disease with Schmorl's node and disc bulge. No central spinal canal stenosis. Small left posterior lateral and foraminal disc protrusion with left-sided subarticular recess narrowing. Moderate bilateral foraminal stenosis similar to the comparison study. L2-3: Mild degenerative disc disease. No central spinal canal or foraminal stenosis. The facet joints are unremarkable. L1-2: Mild degenerative disc disease and disc bulge. No central spinal canal or foraminal stenosis. T12-L1: Mild degenerative disc disease. No central spinal canal or foraminal stenosis. The facet joints are unremarkable. T11-12: Mild degenerative disc disease and disc bulge. No central spinal canal or foraminal stenosis. CONCLUSION: Multilevel degenerative disc disease with specific findings according to level includin. L3-4 small left posterior lateral and foraminal disc protrusion with left- sided subarticular recess narrowing. Moderate bilateral foraminal stenosis. 2. L4-5 moderate degenerative disc disease and minimal anterolisthesis with bilateral facet arthropathy and disc bulge. Moderate bilateral foraminal stenosis. 3. No significant change compared to MRI study of 09/17/2021. LPB Electronically signed on 05/23/2022 10:31:00 AM by Alexander Muniz M.D.
== END 2022-05-22 09:48 | disposition home or self-care (01) ==
LOC: MRI 09:48
PROVIDERS: PCP Family Medicine; Visit Provider Physical Medicine & Rehabilitation Pain Medicine
DX: M54.50 Low back pain, unspecified (principal); M51.26 Other intervertebral disc displacement, lumbar region; M51.36 Other intervertebral disc degeneration, lumbar region
CPT/HCPCS: 72148

== ENCOUNTER 2022-06-26 08:47 | Outpatient (CLI) | payer MEDICARE, BC, SELFPAY ==
--- OUTSIDE RECORDS SUMMARY | 2022-06-26 08:54 | XMS_ITS | Encounter Summary ---
:1945 Author Organization [facility] Address [address], [place] [address] Care Team Providers Name Role Phone Feliciano Uribe MD Primary Care Provider Reason for Visit Procedure/Equipment (Routine) - Incomplete Specialty Diagnoses / Procedures Referred By Contact Refer red To Contact Diagnoses Chronic pain of both knees Juan Diego Luo MD Procedures XR Knee Bilat 3 Views [address] [place], [place] [address] Referral ID Status Reason Start Date Expiration Date Visits V isits Requested Authorized [id number] Incomplete 04/07/2020 07/07/2021 1 1 Encounter Details Date Type Department Care Team Description 04/07/2020 Ancillary [place] Juan Diego Luo M D Chronic pain of both Procedure Radiology [address] [address] [place] [address] [phone] Social History Tobacco Use Types Packs/Day Years [...] knees documented in this encounter Care Teams Bracelet Former Relationship Specialty Start Date End Date Feliciano Uribe MD PCP - General 02/17/191999 [place] [address] documented as of this encounter
--- OUTSIDE RECORDS SUMMARY | 2022-06-26 08:54 | XMS_ITS | Encounter Summary ---
:1945 Author Organization [facility] Address [address] [place] [address] Care Team Providers Name Role Phone Feliciano Uribe MD Primary Care Provider Encounter Details Date Type Department Care Team Description 04/08/2019 Notes/Orders [place] [address] [employer] [address] [address] [place], [place] [address] (Wo rk) Social History Tobacco Use Types [...] on filedocumented in this encounter Care Teams Spindle Carver Relationship Specialty Start Date End Date Feliciano Uribe MD PCP - General 02/17/191999 [place] [address] documented as of this encounter
--- OUTSIDE RECORDS SUMMARY | 2022-06-26 08:54 | XMS_ITS | Encounter Summary ---
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
--- OUTSIDE RECORDS SUMMARY | 2022-06-26 08:54 | XMS_ITS | Encounter Summary ---
:1945 Author Organization [facility] Address [address] [address] Care Team Providers Name Role Phone Feliciano Uribe MD Primary Care Provider Reason for Referral (Routine) - Closed Specialty Diagnoses / Procedures Referred By Contact Refer red To Contact Diagnoses Primary osteoarthritis of left knee Juan Diego Luo MD Procedures Triamcinolone Acet Inj Nos: (per 10 mg) [address] [place], [place] [address] Referral ID Status Reason Start Date Expiration Date Visits Requ ested Visits Authorized [id number] Closed 04/07/2020 07/07/2021 1 1 Procedure/Equipment (Routine) - Incomplete Specialty Diagnoses / Procedures Referred By Contact Refer red To Contact Diagnoses Chronic pain of both knees Juan Diego Luo MD Procedures XR Knee Bilat 3 Views [address] [place], [place] [address] Referral ID Status Reason Start Date Expiration Date Visits V isits Requested Authorized [id number] Incomplete 04/07/2020 07/07/2021 1 1 Reason for Visit Reason Comments Follow-up Encounter Details Date Type Department Care Team Description 04/07/2020 Office Visit Juan Diego Matthews M D Pseudogout (Primary Dx); Rheumatology 38[address] 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 CC: Follow-up probable episodes of pseudogout, chondrocalcinosis, mild hyperuricemia, osteoarthritisof the ankles, osteoarthritis knees HPI: I initially evaluated her March,, she gets her primary care at [facility]. She described occasional attacks of [...] ankle) 2: Chondrocalcinosis seen on hand x-ray [facility] 3: Mild hyperuricemia, also puts [...] sooner if problem arises. Feliciano Uribe MD, [facility], [place] documented in this encounter Plan of [...] (SGOT) 26 10 - 40 U/L 04/07/2020 [facility] 11:00 AM CDT LABORATORY Specimen Anatomical Collection Method / Collection Time Recei rylee Time (Source) Location / Volume Laterality Blood Venipuncture / 04/07/2020 10:11 0 Unknown AM CDT 10:11 AM CDT Juan Diego Luo MD LAB_1 Performing Organization Address City/State/ZIP Code Phon e Number [facility] [address] [place] [address] CREAT - Creatinine (04/07/2020 10:11 AM CDT) athologist Signature Creatinine 0.70 0.55 - 04/07/2020 [facility] 1.02 mg/dL 11:00 AM CDT LABORATORY GFR, Estimated >60 >60 04/07/2020 [facility] mL/min/1.7 11:00 AM CDT LABORATORY 3m2 Specimen Anatomical Collection Method / Collection Time Recei rylee Time (Source) Location / Volume Laterality Blood Venipuncture / 04/07/2020 10:11 0 Unknown AM CDT 10:11 AM CDT Juan Diego Luo MD LAB_1 Performing Organization Address City/State/ZIP Code Phon e Number [facility] [address] [place] [address] documented in this encounter Visit Diagnoses Diagnosis Pseudogout - Primary Other disorder of calcium metabolism Chondrocalcinosis Other disorder of calcium metabolism Primary 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
--- OUTSIDE RECORDS SUMMARY | 2022-06-26 08:54 | XMS_ITS | Encounter Summary ---
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 (NSAID) CREATININE / GFR Routine 04/07/2020 10:11 prison current Re sults for this AM CDT use of procedure are i n non-steroidal the results anti-inflammatories section. (NSAID) COMPLETE BLOOD Routine 04/07/2020 10:11 parts counterman current Resu lts for this COUNT-W/DIFF AM CDT use of procedure are i n non-steroidal the results anti-inflammatories section. (NSAID) AST Routine 04/07/2020 10:11 parts counterman current Result s for this AM CDT use of procedure are i n non-steroidal the results anti-inflammatories section. (NSAID) documented in this encounter Results Complete Blood Count-W/Diff (04/07/2020 10:11 AM CDT) P athologist Signature WBC 5.9 3.5 - 10.5 04/07/2020 [facility] x10(9)/L 10:47 AM CDT LABORATORY RBC 4.50 3.90 - 04/07/2020 [facility] 5.03 10:47 AM CDT LABORATORY x10(12)/L Hemoglobin 13.3 12.0 - 04/07/2020 [facility] 15.5 g/dL 10:47 AM CDT LABORATORY HCT 41.2 34.9 - 04/07/2020 [facility] 44.5 % 10:47 AM CDT LABORATORY MCV 91.6 80.0 - 04/07/2020 [facility] 100.0 fL 10:47 AM CDT LABORATORY MCH 29.6 27.6 - 04/07/2020 [facility] 33.3 pg 10:47 AM CDT LABORATORY MCHC 32.3 31.5 - 04/07/2020 [facility] 35.2 g/dL 10:47 AM CDT LABORATORY RDW 14.0 11.9 - 04/07/2020 [facility] 15.5 % 10:47 AM CDT LABORATORY Platelets 183 150 - 450 04/07/2020 [facility] x10(9)/L 10:47 AM CDT LABORATORY Automated NRBC 0 <=0 /100 04/07/2020 [facility] WBC 10:47 AM CDT LABORATORY Neutrophil 4.2 1.7 - 7.0 04/07/2020 [facility] Absolute 10(9)/L 10:47 AM CDT LABORATORY Lymphocyte 1.0 1.0 - 4.8 04/07/2020 [facility] Absolute 10(9)/L 10:47 AM CDT LABORATORY Monocytes 0.6 0.2 - 0.9 04/07/2020 [facility] Absolute 10(9)/L 10:47 AM CDT LABORATORY Eosinophil 0.1 0.0 - 0.5 04/07/2020 [facility] Absolute 10(9)/L 10:47 AM CDT LABORATORY Basophil 0.0 0.0 - 0.3 04/07/2020 [facility] Absolute 10(9)/L 10:47 AM CDT LABORATORY Immature Gran % 0.3 0.0 - 0.5 04/07/2020 [facility] % 10:47 AM CDT LABORATORY Specimen Anatomical Collection Method / Collection Time Recei rylee Time (Source) Location / Volume Laterality Blood Venipuncture / 04/07/2020 10:11 0 Unknown AM CDT 10:11 AM CDT Juan Diego Luo MD LAB_1 Performing Organization Address City/[facility]/ZIP Code Phon e Number [facility] [address] [place] [address] AST - Aspartate Aminotransferase (04/07/2020 10:11 AM CDT) P athologist Signature AST (SGOT) 26 10 - 40 U/L 04/07/2020 [facility] 11:00 AM CDT LABORATORY Specimen Anatomical Collection Method / Collection Time Recei rylee Time (Source) Location / Volume Laterality Blood Venipuncture / 04/07/2020 10:11 0 Unknown AM CDT 10:11 AM CDT Juan Diego Luo MD LAB_1 Performing Organization Address [facility] Code Phon e Number [facility] [address] [place] [address] CREAT - Creatinine (04/07/2020 10:11 AM CDT) athologist Signature Creatinine 0.70 0.55 - 04/07/2020 [facility] 1.02 mg/dL 11:00 AM CDT LABORATORY GFR, Estimated >60 >60 04/07/2020 [facility] mL/min/1.7 11:00 AM CDT LABORATORY 3m2 Specimen Anatomical Collection Method / Collection Time Recei rylee Time (Source) Location / Volume Laterality Blood Venipuncture / 04/07/2020 10:11 0 Unknown AM CDT 10:11 AM CDT Juan Diego Luo MD LAB_1 Performing Organization Address City/[facility] Code Phon e Number [facility] [address] [place] [address] documented in this encounter Visit Diagnoses Diagnosis prison current use of non-steroidal a nti-inflammatories (NSAID) Encounter for long-term (current) use of non-steroidal anti-inflammatories documented in this encounter Care Teams Software Reliability Engineer Relationship Specialty Start Date End Date Feliciano Uribe MD PCP - General 02/17/191999 [place] [address] documented as of this encounter
--- OUTSIDE RECORDS SUMMARY | 2022-06-26 08:54 | XMS_ITS | Clinical Summary ---
:1945 Author Organization [facility] Address [address] [address] Care Team Providers Name Role Phone Feliciano [...] for each transition of care or referral. [facility] Allergies No known active allergies Medications Medication Sig Dispensed Refills Start Date End Date Status amLODIPine (NORVASC) Take 1 Tablet by 90 Tablet 3 03/27/2019 Active 10 MG tablet mouth daily. atorvastatin Take 1 Tablet by 03/27/2019 Active (LIPITOR) 10 MG mouth daily. tablet chlorthalidone Take 1 Tablet by 90 Tablet 3 03/27/2019 Active (HYGROTON) 50 MG mouth daily. tablet FLUoxetine (PROZAC) Take 1 Capsule by 90 Capsule 3 03/27/2019 Active 40 MG capsule mouth daily. nitroglycerin Place 1 Tablet 100 Tablet 03/27/2019 Active (NITROSTAT) 0.4 MG under tongue every sublingual tablet 5 minutes as needed for Chest Pain. If no relief after 5 min call 911;continue 1 tab every 5 min max 3 tab valACYclovir Take 1 Tablet by 0 03/27/2019 Active (VALTREX) 1 g tablet mouth two times a day. Cholecalciferol 0 03/27/2019 Act johnny (VITAMIN D3) 52593 units TABS levothyroxine Take 175 mcg by [...] tablet week. Take 30 minutes before first modu-bhqdk-kqgwehok on. Avoid lying down for 30 minutes. [...] Phone Addre ss Type Group MEDICARE MEDICARE [id number] 1997-Presen [phone] M edicare MANAGED CARE t 66 BCBS BCBS BCBS [place] [id number] 2016-Presen [phone] [address] [address] Medicare BLUE t [address] [place] [address] Care Teams Lawn Maintenance Worker Relationship Specialty Start Date End Date Feliciano Uribe MD PCP - General 02/17/191999 [place] [address]
--- OUTSIDE RECORDS SUMMARY | 2022-06-26 08:54 | XMS_ITS | Encounter Summary ---
:1945 Author Organization [facility] Address [address] [place] [address] Care Team Providers Name Role Phone Feliciano Uribe MD Primary Care Provider Reason for Visit Reason Comments Consult, New Patient Encounter Details Date Type Department Care Team Description 04/07/2019 Initial Consult Juan Diego Matthews, Pseudogout (Primary Dx); Rheumatology Chondrocalcinosis; [address] Primary osteo arthritis of both ankles; [address] Osteochondritis dessicans; [facility], Hypothyroid [place]m, [place] [address] [place] [id number] [phone] Social History Tobacco Use Types Packs/Day Years [...] on any sore area. Pseudogout Definition Pseudogout (VUI-lfv-pbvb) is a form of arthritis characterized by [...] Applying heat to the affected area Taking smwz-aig-lxtmger NSAIDs, such as ibuprofen (Advil, Motrin, others) [...] This note was generated with voice activated software applications architect software and may contain typographical and word substitution errors. Consultation was requested by: Feliciano Uribe MD, [facility], family medicine HPI: She is a 73-year-old female. No internal records are available. I received and reviewed records from [facility]. Review of lab data from 2019 shows [...] and swollen. She happened to be at [facility] following up on her Graves disease [...] ankle) 2: Chondrocalcinosis seen on hand x-ray [facility] 3: Mild hyperuricemia, also puts her [...] done elsewhere, uric acid was 7.8 at [facility] in 2013. Most likely this relates to chlorthalidone. If there were an alternative non diuretic blood pressure medication that would work for her, this may be something to consider. 3: No doubt, she has osteoarthritis of the ankles which gives her more of day-to-day difficulty but she still is able to walk 3 miles. We discussed Tylenol 1 g t.i.d. p.r.n. and some epkl-vet-abayldd Aspercreme since Voltaren gel did not appear to be covered by her insurance. 4: We will have her check back with us in 1 year, sooner if episodes of pseudogout become problematic or not managed with prednisone. Thanks for referring this nice lady. 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
[2022-06-26 10:17] LABS: Vitamin D 25 Hydroxy* 22 ng/mL (30-80)
== END 2022-06-26 08:48 | disposition home or self-care (01) ==
LOC: NFLDREF 08:48
PROVIDERS: PCP Family Medicine; Visit Provider Family Medicine
DX: Z01.818 Encounter for other preprocedural examination (principal); M85.80 Other specified disorders of bone density and structure, unspecified site; E55.9 Vitamin D deficiency, unspecified
CPT/HCPCS: 82306

== ENCOUNTER 2022-06-28 12:05 | Day surgery (SDC) | payer MEDICARE, BC, SELFPAY ==
[2022-06-28 11:15] VITALS: BP 140/67; PULSE 65; RESP 16; TEMP 36.6; O2SAT 98; BMI 24.4
[2022-06-28] MEDS: KETOROLAC OPHTH 0.5% 1 DROP EYE-RIGHT ×2 (11:15→11:22)
[2022-06-28] MEDS: TETRACAINE 0.5% OPHTH 1 DROP EYE-RIGHT ×2 (11:15→11:40)
[2022-06-28] MEDS: SODIUM CHLORIDE 0.9 % (FLUSH) 10 ML SYRINGE IVF (11:41)
[2022-06-28] MEDS: ETHYL CHLORIDE 1 APPLICATION 1 APPLIC TOPICAL (11:41)
--- NOTE | 2022-06-28 11:42 | SUR.PREOP ---
UPON ADMIT, The eye drops brought by the patient (Ketorolac and Prednisolone) are examined and I have determined they are labeled by the patient's pharmacy for this patient as prescribed by the surgeon. The bottles are intact, recently obtained and appear to be correct.
[2022-06-28] MEDS: TETRACAINE 0.5% OPHTH 2 DROP EYE-RIGHT (12:07)
[2022-06-28] MEDS: BALANCED SALT IRRIG SOLN 15 ML EYE-RIGHT (12:11)
--- NOTE | 2022-06-28 12:42 | W.ANESCHARGE ---
Anesthesia Charges Start Date/Time Anesthesia Start Date: 06/28/22 Anesthesia Start Time: 12:03 Stop Date/Time Anesthesia Stop Date: 06/28/22 Anesthesia Stop Time: 12:37 Summary Emergency: No Extremes of Age: Over 71-CPT 28508
[2022-06-28 12:50] VITALS: BP 133/65; PULSE 83; RESP 16; TEMP 36.5; O2SAT 97
--- NOTE | 2022-06-28 12:52 | W.ANESCHARGE ---
Anesthesia Charges Start Date/Time Anesthesia Start Date: 06/28/22 Anesthesia Start Time: 12:03 Stop Date/Time Anesthesia Stop Date: 06/28/22 Anesthesia Stop Time: 12:37 Summary Emergency: No Extremes of Age: Over 70-CPT 95521
--- NOTE | 2022-06-28 13:14 | W.PM.OPTPROC ---
Procedure Note Date of procedure: 06/28/22 Will [facility] bill your pro fee for this procedure?: Yes Procedure Description: SURGEON: Elvira Grimaldo MD PREOPERATIVE DIAGNOSIS: Nuclear sclerotic cataract, right eye. POSTOPERATIVE DIAGNOSIS: Nuclear sclerotic cataract, right eye. NAME OF OPERATION: Phacoemulsification of cataract with posterior chamber intraocular lens implantation in the right eye. ANESTHESIA: Topical. ESTIMATED BLOOD LOSS: Less than 2 cc. COMPLICATIONS: None. PATHOLOGY SPECIMEN: None. INDICATIONS: See consult note for details. The risks, benefits and alternatives of the procedure were explained to the patient, who elected to proceed and signed informed consent to do so. PROCEDURE: The patient was brought to the pre-holding area where the right eye was identified as the operative eye. I placed my initials above this eye. The patient received eye drops consisting of 0.5% tetracaine, 1% tropicamide, 10% phenylephrine, and 0.5% ketorolac. The patient was then brought to the operating room where the right eye was again identified as the operative eye. The eye was prepped with Betadine and draped in the usual sterile ophthalmic fashion. A #15 super-sharp blade was used to create a paracentesis site. 1% non-preserved intracameral lidocaine was injected into the anterior chamber. Endocoat was injected into the anterior chamber. A 2.4 mm keratome was used to create a three-plane self-sealing incision 1 mm anterior to the temporal limbus. A cystotome was used to create an anterior capsular leaflet. The Utrata forceps were used to extend this to form a continuous curvilinear capsulorrhexis. Hydrodissection was performed. The cataract was removed with phacoemulsification using the hctwus-xwq-bwixvna technique. The irrigation and aspiration tip was used to remove the remaining cortex. Healon was injected into the capsular bag. An ANYA ZCB00 intraocular lens of 17.5 diopters was injected into the capsular bag. The irrigation and aspiration tip was used to remove the remaining viscoelastic. Balanced salt solution on a cannula was used to hydrate the wound, and the wound was found to be watertight. The pupil was noted to be round. DISPOSITION: The patient was taken to the recovery room and discharged to home in stable condition. The patient was instructed to call me or go to the emergency department with any sudden change, including dramatic loss of vision, severe pain in the eye or eyebrow region, nausea, or vomiting. The patient will follow up in the clinic tomorrow morning. Surgeon: Elvira Grimaldo MD
== END 2022-06-28 13:05 | disposition home or self-care (01) ==
PROVIDERS: PCP Family Medicine; Visit Provider Ophthalmology
PROC: (CPT 66984; principal; 2022-06-28 11:00)
DX: H25.11 Age-related nuclear cataract, right eye (principal)
CPT/HCPCS: 66984; 00142; 99100; A9270; J2250; J3010; V2632

== ENCOUNTER 2022-07-10 09:01 | Outpatient (CLI) | payer MEDICARE, BC, SELFPAY ==
--- OUTSIDE RECORDS SUMMARY | 2022-07-10 09:03 | XMS_ITS | Clinical Summary ---
:1945 Author Organization [facility] Address [address], [place] [address] Care Team Providers Name Role Phone Feliciano [...] for each transition of care or referral. [facility] Allergies No known active allergies Medications Medication [...] Cholecalciferol 0 03/27/2019 Act johnny (VITAMIN D3) 57239 units TABS levothyroxine Take 175 mcg by [...] tablet week. Take 30 minutes before first mryb-buhqm-jkfrfree on. Avoid lying down for 30 minutes. [...] Phone Addre ss Type Group MEDICARE MEDICARE [id number] 1997-Presen [phone] M edicare MANAGED CARE t 66 BCBS BCBS BCBS [place] [id number] 2016-PresFrankly Chat [phone] [address] [address] Medicare BLUE t [address] [place] [address] Care Teams Heat Engineering Teacher Relationship Specialty Start Date End Date Feliciano Uribe MD PCP - General 02/17/191999 [place] [address]
--- OUTSIDE RECORDS SUMMARY | 2022-07-10 09:03 | XMS_ITS | Encounter Summary ---
:1945 Author Organization [facility] [employer] Address [address] [address] Care Team Providers Name Role Phone Feliciano Uribe MD Primary Care Provider Encounter Details Date Type Department Care Team Description 04/07/2020 Lab Visit [facility] [place] [address] [employer] [address] anti-inflammatories (NSAID) [phone] Social History Tobacco Use Types Packs/Day Years [...] Diagnosis CBC AND DIFFERENTIAL Routine 04/07/2020 10:11 extermination inspector curren t Results for this PANEL AM CDT use of procedure are i n non-steroidal the results anti-inflammatories section. (NSAID) CREATININE / GFR Routine 04/07/2020 10:11 skilled nursing current Re sults for this AM CDT use of procedure are i n non-steroidal the results anti-inflammatories section. (NSAID) COMPLETE BLOOD Routine 04/07/2020 10:11 skilled nursing current Resu lts for this COUNT-W/DIFF AM CDT use of procedure are i n non-steroidal the results anti-inflammatories section. (NSAID) AST Routine 04/07/2020 10:11 skilled nursing current Result s for this AM CDT use of procedure are i n non-steroidal the results anti-inflammatories section. (NSAID) documented in this encounter Results Complete Blood Count-W/Diff (04/07/2020 10:11 AM CDT) P athologist Signature WBC 5.9 3.5 - 10.5 04/07/2020 [facility] x10(9)/L 10:47 AM CDT LABORATORY RBC 4.50 3.90 - 04/07/2020 [facility] 5.03 10:47 AM CDT LABORATORY x10(12)/L Hemoglobin 13.3 12.0 - 04/07/2020 [facility] 15.5 g/dL 10:47 AM CDT LABORATORY HCT 41.2 34.9 - 04/07/2020 [facility] 44.5 % 10:47 AM CDT LABORATORY MCV 91.6 80.0 - 04/07/2020 [facility] 100.0 fL 10:47 AM CDT LABORATORY MCH 29.6 27.6 - 04/07/2020 [facility] 33.3 pg 10:47 AM CDT LABORATORY MCHC 32.3 31.5 - 04/07/2020 [facility] 35.2 g/dL 10:47 AM CDT LABORATORY RDW 14.0 11.9 - 04/07/2020 [facility] 15.5 % 10:47 AM CDT LABORATORY Platelets 183 150 - 450 04/07/2020 [facility] x10(9)/L 10:47 AM CDT LABORATORY Automated NRBC 0 <=0 /100 04/07/2020 [facility] WBC 10:47 AM CDT LABORATORY Neutrophil 4.2 1.7 - 7.0 04/07/2020 [facility] Absolute 10(9)/L 10:47 AM CDT LABORATORY Lymphocyte 1.0 1.0 - 4.8 04/07/2020 [facility] Absolute 10(9)/L 10:47 AM CDT LABORATORY Monocytes 0.6 0.2 - 0.9 04/07/2020 [facility] Absolute 10(9)/L 10:47 AM CDT LABORATORY Eosinophil 0.1 0.0 - 0.5 04/07/2020 [facility] Absolute 10(9)/L 10:47 AM CDT LABORATORY Basophil 0.0 0.0 - 0.3 04/07/2020 [facility] Absolute 10(9)/L 10:47 AM CDT LABORATORY Immature Gran % 0.3 0.0 - 0.5 04/07/2020 [facility] % 10:47 AM CDT LABORATORY Specimen Anatomical Collection Method / Collection Time Recei rylee Time (Source) Location / Volume Laterality Blood Venipuncture / 04/07/2020 10:11 0 Unknown AM CDT 10:11 AM CDT Juan Diego Luo MD LAB_1 Performing Organization Address City/[facility]/ZIP Code Phon e Number [facility] [address] [place] [address] AST - Aspartate Aminotransferase (04/07/2020 10:11 AM CDT) P athologist Signature AST (SGOT) 26 10 - 40 U/L 04/07/2020 [facility] 11:00 AM CDT LABORATORY Specimen Anatomical Collection Method / Collection Time Recei rylee Time (Source) Location / Volume Laterality Blood Venipuncture / 04/07/2020 10:11 0 Unknown AM CDT 10:11 AM CDT Juan Diego Luo MD LAB_1 Performing Organization Address [facility]/ZIP Code Phon e Number [facility] [address] [place] [address] CREAT - Creatinine (04/07/2020 10:11 AM CDT) athologist Signature Creatinine 0.70 0.55 - 04/07/2020 [facility] 1.02 mg/dL 11:00 AM CDT LABORATORY GFR, Estimated >60 >60 04/07/2020 [facility] mL/min/1.7 11:00 AM CDT LABORATORY 3m2 Specimen Anatomical Collection Method / Collection Time Recei rylee Time (Source) Location / Volume Laterality Blood Venipuncture / 04/07/2020 10:11 0 Unknown AM CDT 10:11 AM CDT Juan Diego Luo MD LAB_1 Performing Organization Address City/[facility] Phon e Number [facility] [address] [place] [address] documented in this encounter Visit Diagnoses Diagnosis skilled nursing current use of non-steroidal a nti-inflammatories (NSAID) Encounter for long-term (current) use of non-steroidal anti-inflammatories documented in this encounter Care Teams Route Salesman Relationship Specialty Start Date End Date Feliciano Uribe MD PCP - General 02/17/191999 [place] [address] documented as of this encounter
--- OUTSIDE RECORDS SUMMARY | 2022-07-10 09:03 | XMS_ITS | Encounter Summary ---
:1945 Author Organization [facility] Address [address] [place] [address] Care Team Providers Name Role Phone Feliciano Uribe MD Primary Care Provider Reason for Referral (Routine) - Closed Specialty Diagnoses / Procedures Referred By Contact Refer red To Contact Diagnoses Primary osteoarthritis of left knee Juan Diego Luo MD Procedures Triamcinolone Acet Inj Nos: (per 10 mg) [address] [place], [place] [address] Referral ID Status Reason Start Date Expiration Date Visits Requ ested Visits Authorized [id number] Closed 04/07/2020 07/07/2021 1 1 Procedure/Equipment (Routine) - Incomplete Specialty Diagnoses / Procedures Referred By Contact Refer red To Contact Diagnoses Chronic pain of both knees Juan Diego Luo MD Procedures XR Knee Bilat 3 Views [address] [place], [place] [address] Referral ID Status Reason Start Date Expiration Date Visits V isits Requested Authorized [id number] Incomplete 04/07/2020 07/07/2021 1 1 Reason for Visit Reason Comments Follow-up Encounter Details Date Type Department Care Team Description 04/07/2020 Office Visit Juan Diego Matthews M D Pseudogout (Primary Dx); Rheumatology [address] [facility] Chondrocalcinosis; [address] [facility] Primary osteoarthritis of both ankles; [place] [address] [place], [place] teacher [employer] current use of non -steroidal anti-inflammatories (NSAID); [phone] [address] Chronic pain of both knees; [phone] Primary osteoar thritis of left knee (Work) [...] This note was generated with voice activated wearing apparel assembler software and may contain typographical and word substitution errors. CC: Follow-up probable episodes of pseudogout, chondrocalcinosis, mild hyperuricemia, osteoarthritisof the ankles, osteoarthritis knees HPI: I initially evaluated her March,, she gets her primary care at [facility]. She described occasional attacks [...] Chondrocalcinosis seen on hand x-ray [facility] 3: Mild hyperuricemia, also puts her at [...] sooner if problem arises. Feliciano Uribe MD, [facility], [place], [place] documented in this encounter Plan of [...] (SGOT) 26 10 - 40 U/L 04/07/2020 [facility] 11:00 AM CDT LABORATORY Specimen Anatomical Collection Method / Collection Time Recei rylee Time (Source) Location / Volume Laterality Blood Venipuncture / 04/07/2020 10:11 0 Unknown AM CDT 10:11 AM CDT Juan Diego Luo MD LAB_1 Performing Organization Address City/State/ZIP Code Phon e Number [facility] [address] [place] [address] CREAT - Creatinine (04/07/2020 10:11 AM CDT) athologist Signature Creatinine 0.70 0.55 - 04/07/2020 [facility] 1.02 mg/dL 11:00 AM CDT LABORATORY GFR, Estimated >60 >60 04/07/2020 [facility] mL/min/1.7 11:00 AM CDT LABORATORY 3m2 Specimen Anatomical Collection Method / Collection Time Recei rylee Time (Source) Location / Volume Laterality Blood Venipuncture / 04/07/2020 10:11 0 Unknown AM CDT 10:11 AM CDT Juan Diego Luo MD LAB_1 Performing Organization Address City/State/ZIP Code Phon e Number [facility] [address] [place] [address] documented in this encounter Visit Diagnoses Diagnosis Pseudogout - Primary Other disorder of calcium metabolism Chondrocalcinosis Other disorder of calcium metabolism Primary osteoarthritis of both ankles [facility] current use of non-steroidal a nti-inflammatories (NSAID) Encounter for long-term (current) use of non-steroidal anti-inflammatories Chronic pain of both knees Primary osteoarthritis of left knee Primary localized osteoarthrosis, lower leg Chronic pain of both knees documented in this encounter Care Teams Rn Triage Relationship Specialty Start Date End Date Feliciano Uribe MD PCP - General 02/17/191999 [place] [address] documented as of this encounter
--- OUTSIDE RECORDS SUMMARY | 2022-07-10 09:03 | XMS_ITS | Encounter Summary ---
:1945 Author Organization [facility] Address [address] [place] [address] Care Team Providers Name Role Phone Feliciano Uribe MD Primary Care Provider Reason for Visit Procedure/Equipment (Routine) - Incomplete Specialty Diagnoses / Procedures Referred By Contact Refer red To Contact Diagnoses Chronic pain of both knees Juan Diego Luo MD Procedures XR Knee Bilat 3 Views [address] [place], [place] [address] Referral ID Status Reason Start Date Expiration Date Visits V isits Requested Authorized [id number] Incomplete 04/07/2020 07/07/2021 1 1 Encounter Details Date Type Department Care Team Description 04/07/2020 Ancillary [place] Juan Diego Luo M D Chronic pain of both Procedure Radiology [address] [address] [place] [address] [phone] Social History Tobacco Use Types Packs/Day Years [...] knees documented in this encounter Care Teams Academic Support Specialist Relationship Specialty Start Date End Date Feliciano Uribe MD PCP - General 02/17/191999 [place] [address] documented as of this encounter
--- OUTSIDE RECORDS SUMMARY | 2022-07-10 09:04 | XMS_ITS | Encounter Summary ---
:1945 Author Organization [facility] Address [address] [place] [address] Care Team Providers Name Role Phone Unavailable Primary Care Provider Unavailable Encounter Details Date Type Department Care Team Description 08/27/1989 PN Conversion Only SPEED OPERATOR [address] [place] [address] Social History Tobacco Use Types Packs/Day Years Used Date Smoking Tobacco: Never Assessed Sex Assigned at Date Recorded Not on file documented as of this encounter Plan of Treatment Not on filedocumented as of this encounter Visit Diagnoses Not on filedocumented in this encounter
--- OUTSIDE RECORDS SUMMARY | 2022-07-10 09:04 | XMS_ITS | Encounter Summary ---
:1945 Author Organization [facility] Address [address] [place] [address] Care Team Providers Name Role Phone Feliciano Uribe MD Primary Care Provider Reason for Visit Reason Comments Consult, New Patient Encounter Details Date Type Department Care Team Description 04/07/2019 Initial Consult Juan Diego Matthews, Pseudogout (Primary Dx); Rheumatology Chondrocalcinosis; [address] Primary osteo arthritis of both ankles; [address] Osteochondritis dessicans; [facility], Hypothyroid ism, unspecified type [address] [place] [address] [phone] Social History Tobacco Use Types Packs/Day Years [...] on any sore area. Pseudogout Definition Pseudogout (UCX-ieb-jhcx) is a form of arthritis characterized by [...] Applying heat to the affected area Taking oqxc-wxs-pqxwdcd NSAIDs, such as ibuprofen (Advil, Motrin, others) [...] This note was generated with voice activated crisis intervention counselor software and may contain typographical and word substitution errors. Consultation was requested by: Feliciano Uribe MD, [facility], family medicine HPI: She is a 73-year-old female. No internal records are available. I received and reviewed records from [facility]. Review of lab data from 2019 shows [...] She happened to be at [facility] following up on her Graves disease [...] acid was modestly elevated at 7.8 in 2013 and she is on chlorthalidone. She has [...] Chondrocalcinosis seen on hand x-ray [facility] 3: Mild hyperuricemia, also puts her [...] done elsewhere, uric acid was 7.8 at [facility] in 2013. Most likely this relates [...] Tylenol 1 g t.i.d. p.r.n. and some ckwy-brp-tccoufa Aspercreme since Voltaren gel did not appear to be covered by her insurance. 4: We will have her check back with us in 1 year, sooner if episodes of pseudogout become problematic or not managed with prednisone. Thanks for referring this nice lady. 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
--- OUTSIDE RECORDS SUMMARY | 2022-07-10 09:04 | XMS_ITS | Encounter Summary ---
:1945 Author Organization [facility] Address [address] [place] [address] Care Team Providers Name Role Phone Feliciano Uribe MD Primary Care Provider Encounter Details Date Type Department Care Team Description 04/08/2019 Notes/Orders [place] [id number] [place] [address] [place] [address] [phone] (Wo rk) Social History Tobacco Use Types [...] on filedocumented in this encounter Care Teams Charter Coordinator Relationship Specialty Start Date End Date Feliciano Uribe MD PCP - General 02/17/191999 [place] [address] documented as of this encounter
[2022-07-10 12:00] LABS: Chloride* 103 mmol/L (96-114)
[2022-07-10 12:01] LABS: Potassium* 4.2 mmol/L (3.6-5.1); Sodium* 136 mmol/L (135-149)
[2022-07-10 12:03] LABS: Creatinine* 0.5 mg/dL (0.5-1.5); Estimated Glomerular Filt Rate 97 ml/min
[2022-07-10 12:04] LABS: Blood Urea Nitrogen* 16 mg/dL (7-30); Carbon Dioxide* 26 mmol/L (20-32); Glucose* 95 mg/dL (60-115)
== END 2022-07-10 09:02 | disposition home or self-care (01) ==
LOC: NFLDREF 09:02
PROVIDERS: PCP Family Medicine; Visit Provider Family Medicine
DX: Z01.818 Encounter for other preprocedural examination (principal)
CPT/HCPCS: 80048

== ENCOUNTER 2022-07-12 07:15 | Day surgery (SDC) | payer MEDICARE, BC, SELFPAY ==
[2022-07-12] MEDS: KETOROLAC OPHTH 0.5% 1 DROP EYE-LEFT ×2 (07:35→07:40)
[2022-07-12] MEDS: TETRACAINE 0.5% OPHTH 1 DROP EYE-LEFT ×2 (07:35→07:40)
[2022-07-12 07:40] VITALS: BP 127/71; PULSE 68; RESP 16; TEMP 36.9; O2SAT 99
[2022-07-12] MEDS: SODIUM CHLORIDE 0.9 % (FLUSH) 10 ML SYRINGE IVF (07:40)
[2022-07-12 07:43] VITALS: BMI 24.7
--- NOTE | 2022-07-12 07:52 | SUR.PREOP ---
PATIENTS HOME COVID ANTIGEN TEST NEGATIVE.
[2022-07-12] MEDS: BALANCED SALT IRRIG SOLN 15 ML EYE-LEFT (09:02)
[2022-07-12] MEDS: TETRACAINE 0.5% OPHTH 2 DROP EYE-LEFT (09:02)
[2022-07-12 09:21] VITALS: BP 125/57; PULSE 67; RESP 16; TEMP 36.6; O2SAT 94
--- NOTE | 2022-07-12 09:22 | W.ANESCHARGE ---
Anesthesia Charges Start Date/Time Anesthesia Start Date: 07/12/22 Anesthesia Start Time: 08:52 Stop Date/Time Anesthesia Stop Date: 07/12/22 Anesthesia Stop Time: 09:21 Summary Emergency: No Extremes of Age: Over 70-CPT [address]
--- NOTE | 2022-07-12 09:22 | W.ANESCHARGE ---
Anesthesia Charges Start Date/Time Anesthesia Start Date: 07/12/22 Anesthesia Start Time: 12:03 Stop Date/Time Anesthesia Stop Date: 07/12/22 Anesthesia Stop Time: 12:37 Summary Emergency: No Extremes of Age: Over 71-CPT [address]
--- NOTE | 2022-07-12 09:24 | P.OPTPRC_ITS ---
Procedure Note Date of procedure: 07/12/22 Will [facility] bill your pro fee for this procedure?: Yes Procedure Description: SURGEON: Elvira Grimaldo MD PREOPERATIVE DIAGNOSIS: Nuclear sclerotic cataract, left eye. POSTOPERATIVE DIAGNOSIS: Nuclear sclerotic cataract, left eye. NAME OF OPERATION: Phacoemulsification of cataract with posterior chamber intraocular lens implantation in the left eye. ANESTHESIA: Topical. ESTIMATED BLOOD LOSS: Less than 2 cc. COMPLICATIONS: None. PATHOLOGY SPECIMEN: None. INDICATIONS: See consult note for details. The risks, benefits and alternatives of the procedure were explained to the patient, who elected to proceed and sign ed informed consent to do so. PROCEDURE: The patient was brought to the pre-holding area where the left eye was identified as the operative eye. I placed my initials above this eye. The patient received eye drops consisting of 0.5% tetracaine, 1% tropicamide, 10% phenylephrine, and 0.5% ketorolac. The patient was then brought to the operating room where the left eye was again identified as the operative eye. The eye was prepped with Betadine and draped in the usual sterile ophthalmic fashion. A #15 super-sharp blade was used to create a paracentesis site. 1% non-preserved intracameral lidocaine was injected into the anterior chamber. Endocoat was injected into the anterior chamber. A 2.4 mm keratome was used to create a three-plane self-sealing incision 1 mm anterior to the temporal limbus. A cystotome was used to create an anterior capsular leaflet. The Utrata forceps were used to extend this to form a continuous curvilinear capsulorrhexis. Hydrodissection was performed. The cataract was removed with phacoemulsification using the nlkjzf-obn-uxpnquz technique. The irrigation and aspiration tip was used to remove the remaining cortex. Healon was injected into the capsular bag. An ANYA ZCB00 intraocular lens of 20.0 diopters was injected into the capsular bag. The irrigation and aspiration tip was used to remove the remaining viscoelastic. Balanced salt solution on a cannula was used to hydrate the wound, and the wound was found to be watertight. The pupil was noted to be round. DISPOSITION: The patient was taken to the recovery room and discharged to home in stable condition. The patient was instructed to call me or go to the emergency department with any sudden change, including dramatic loss of vision, severe pain in the eye or eyebrow region, nausea, or vomiting. The patient will follow up in the clinic tomorrow morning. Surgeon: Elvira Grimaldo MD
== END 2022-07-12 09:50 | disposition home or self-care (01) ==
PROVIDERS: PCP Family Medicine; Visit Provider Ophthalmology
PROC: (CPT 66984; principal; 2022-07-12 07:30)
DX: H25.12 Age-related nuclear cataract, left eye (principal)
CPT/HCPCS: 66984; 142; 99100; A9270; J2250; J3010; V2632

== ENCOUNTER 2022-07-22 03:12 | Outpatient (CLI) | payer MEDICARE, BC, SELFPAY ==
--- OUTSIDE RECORDS SUMMARY | 2022-08-03 16:59 | XMS_ITS | Encounter Summary ---
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 (NSAID) CREATININE / GFR Routine 04/07/2020 10:11 detention current Re sults for this AM CDT use of procedure are i n non-steroidal the results anti-inflammatories section. (NSAID) COMPLETE BLOOD Routine 04/07/2020 10:11 detention current Resu lts for this COUNT-W/DIFF AM CDT use of procedure are i n non-steroidal the results anti-inflammatories section. (NSAID) AST Routine 04/07/2020 10:11 detention current Result s for this AM CDT use of procedure are i n non-steroidal the results anti-inflammatories section. (NSAID) documented in this encounter Results Complete Blood Count-W/Diff (04/07/2020 10:11 AM CDT) P athologist Signature WBC 5.9 3.5 - 10.5 04/07/2020 [place] x10(9)/L 10:47 AM CDT LABORATORY RBC 4.50 3.90 - 04/07/2020 [place] 5.03 10:47 AM CDT LABORATORY x10(12)/L Hemoglobin 13.3 12.0 - 04/07/2020 [place] 15.5 g/dL 10:47 AM CDT LABORATORY HCT 41.2 34.9 - 04/07/2020 [place] 44.5 % 10:47 AM CDT LABORATORY MCV 91.6 80.0 - 04/07/2020 [place] 100.0 fL 10:47 AM CDT LABORATORY MCH 29.6 27.6 - 04/07/2020 [place] 33.3 pg 10:47 AM CDT LABORATORY MCHC 32.3 31.5 - 04/07/2020 [place] 35.2 g/dL 10:47 AM CDT LABORATORY RDW 14.0 11.9 - 04/07/2020 [place] 15.5 % 10:47 AM CDT LABORATORY Platelets 183 150 - 450 04/07/2020 [place] x10(9)/L 10:47 AM CDT LABORATORY Automated NRBC 0 <=0 /100 04/07/2020 [place] WBC 10:47 AM CDT LABORATORY Neutrophil 4.2 1.7 - 7.0 04/07/2020 [place] Absolute 10(9)/L 10:47 AM CDT LABORATORY Lymphocyte 1.0 1.0 - 4.8 04/07/2020 [place] Absolute 10(9)/L 10:47 AM CDT LABORATORY Monocytes 0.6 0.2 - 0.9 04/07/2020 [place] Absolute 10(9)/L 10:47 AM CDT LABORATORY Eosinophil 0.1 0.0 - 0.5 04/07/2020 [place] Absolute 10(9)/L 10:47 AM CDT LABORATORY Basophil 0.0 0.0 - 0.3 04/07/2020 [place] Absolute 10(9)/L 10:47 AM CDT LABORATORY Immature Gran % 0.3 0.0 - 0.5 04/07/2020 [place] % 10:47 AM CDT LABORATORY Specimen Anatomical Collection Method / Collection Time Recei rylee Time (Source) Location / Volume Laterality Blood Venipuncture / 04/07/2020 10:11 0 Unknown AM CDT 10:11 AM CDT Juan Diego Luo MD LAB_1 Performing Organization Address City/[facility]/ZIP Code Phon e Number [facility] [address] [place] [address] 5791 AST - Aspartate Aminotransferase (04/07/2020 10:11 AM CDT) P athologist Signature AST (SGOT) 26 10 - 40 U/L 04/07/2020 [place] 11:00 AM CDT LABORATORY Specimen Anatomical Collection Method / Collection Time Recei rylee Time (Source) Location / Volume Laterality Blood Venipuncture / 04/07/2020 10:11 0 Unknown AM CDT 10:11 AM CDT Juan Diego Luo MD LAB_1 Performing Organization Address [facility]/ZIP Code Phon e Number [facility] [address] [place] [address] 5713 CREAT - Creatinine (04/07/2020 10:11 AM CDT) athologist Signature Creatinine 0.70 0.55 - 04/07/2020 [place] 1.02 mg/dL 11:00 AM CDT LABORATORY GFR, Estimated >60 >60 04/07/2020 [place] mL/min/1.7 11:00 AM CDT LABORATORY 3m2 Specimen Anatomical Collection Method / Collection Time Recei rylee Time (Source) Location / Volume Laterality Blood Venipuncture / 04/07/2020 10:11 0 Unknown AM CDT 10:11 AM CDT Juan Diego Luo MD LAB_1 Performing Organization Address City/[facility] Phon e Number [facility] [address] [place] [address] documented in this encounter Visit Diagnoses Diagnosis detention current use of non-steroidal a nti-inflammatories (NSAID) Encounter for long-term (current) use of non-steroidal anti-inflammatories documented in this encounter Care Teams Customer Relationship Specialist Relationship Specialty Start Date End Date eFliciano Uribe MD PCP - General 02/17/[address] [place] [address] documented as of this encounter
--- OUTSIDE RECORDS SUMMARY | 2022-08-03 16:59 | XMS_ITS | Encounter Summary ---
:1945 Author Organization [facility] Address [address] [place] [address] Care Team Providers Name Role Phone Feliciano Uribe MD Primary Care Provider Reason for Visit Reason Comments Consult, New Patient Encounter Details Date Type Department Care Team Description 04/07/2019 Initial Consult Juan Diego Matthews, Pseudogout (Primary Dx); Rheumatology Chondrocalcinosis; [address] Primary osteo arthritis of both ankles; [address] Osteochondritis dessicans; [facility], Hypothyroid ism, unspecified type [address] [place] [address] [phone] Social History Tobacco Use Types Packs/Day Years [...] on any sore area. Pseudogout Definition Pseudogout ([id number]) is a form of arthritis characterized by [...] Applying heat to the affected area Taking [id number]-iabvpry NSAIDs, such as ibuprofen (Advil, Motrin, others) [...] This note was generated with voice activated removable prosthodontist software and may contain typographical and word substitution errors. Consultation was requested by: Feliciano Uribe MD, [facility], family medicine HPI: She is a 73-year-old female. No internal records are available. I received and reviewed records from [facility]. Review of lab data from 2019 shows [...] and swollen. She happened to be at [facility] following up on her Graves disease [...] ankle) 2: Chondrocalcinosis seen on hand x-ray [facility] 3: Mild hyperuricemia, also puts her [...] done elsewhere, uric acid was 7.8 at [facility] in 2013. Most likely this relates to chlorthalidone. If there were an alternative non diuretic blood pressure medication that would work for her, this may be something to consider. 3: No doubt, she has osteoarthritis of the ankles which gives her more of day-to-day difficulty but she still is able to walk 3 miles. We discussed Tylenol 1 g t.i.d. p.r.n. and some [id number] Aspercreme since Voltaren gel did not appear to be covered by her insurance. 4: We will have her check back with us in 1 year, sooner if episodes of pseudogout become problematic or not managed with prednisone. Thanks for referring this nice lady. 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
--- OUTSIDE RECORDS SUMMARY | 2022-08-03 16:59 | XMS_ITS | Encounter Summary ---
:1945 Author Organization [facility] Address [address] [place] [address] Care Team Providers Name Role Phone Unavailable Primary Care Provider Unavailable Encounter Details Date Type Department Care Team Description 08/27/1989 PN Conversion Only DIRECTOR TOXICOLOGY [address] [place] [address] Social History Tobacco Use Types Packs/Day Years Used Date Smoking Tobacco: Never Assessed Sex Assigned at Date Recorded Not on file documented as of this encounter Plan of Treatment Not on filedocumented as of this encounter Visit Diagnoses Not on filedocumented in this encounter
--- OUTSIDE RECORDS SUMMARY | 2022-08-03 16:59 | XMS_ITS | Encounter Summary ---
:1945 Author Organization [facility] Address [address] [place] [address] Care Team Providers Name Role Phone Feliciano Uribe MD Primary Care Provider Reason for Referral (Routine) - Closed Specialty Diagnoses / Procedures Referred By Contact Refer red To Contact Diagnoses Primary osteoarthritis of left knee Juan Diego Luo MD Procedures Triamcinolone Acet Inj Nos: (per 10 mg) [address] [place], [place] [address] Referral ID Status Reason Start Date Expiration Date Visits Requ ested Visits Authorized [id number] Closed 04/07/2020 07/07/2021 1 1 Procedure/Equipment (Routine) - Incomplete Specialty Diagnoses / Procedures Referred By Contact Refer red To Contact Diagnoses Chronic pain of both knees Juan Diego Luo MD Procedures XR Knee Bilat 3 Views 38[address] [place], [place] [address] Referral ID Status Reason Start Date Expiration Date Visits V isits Requested Authorized [id number] Incomplete 04/07/2020 07/07/2021 1 1 Reason for Visit Reason Comments Follow-up Encounter Details Date Type Department Care Team Description 04/07/2020 Office Visit Juan Diego Matthews M D Pseudogout (Primary Dx); Rheumatology 3800 [facility] Chondrocalcinosis; [address] [facility] Primary osteoarthritis of both ankles; [place] [address] [place], [place]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 CC: Follow-up probable episodes of pseudogout, chondrocalcinosis, mild hyperuricemia, osteoarthritisof the ankles, osteoarthritis knees HPI: I initially evaluated her March,, she gets her primary care at [facility]. She described occasional [...] sooner if problem arises. Feliciano Uribe MD, [facility], [place] documented in this encounter Plan of [...] (SGOT) 26 10 - 40 U/L 04/07/2020 [facility] 11:00 AM CDT LABORATORY Specimen Anatomical Collection Method / Collection Time Recei rylee Time (Source) Location / Volume Laterality Blood Venipuncture / 04/07/2020 10:11 0 Unknown AM CDT 10:11 AM CDT Juan Diego Luo MD LAB_1 Performing Organization Address City/State/ZIP Code Phon e Number [facility] [address] [place] [address] CREAT - Creatinine (04/07/2020 10:11 AM CDT) athologist Signature Creatinine 0.70 0.55 - 04/07/2020 [facility] 1.02 mg/dL 11:00 AM CDT LABORATORY GFR, Estimated >60 >60 04/07/2020 [place] mL/min/1.7 11:00 AM CDT LABORATORY 3m2 Specimen Anatomical Collection Method / Collection Time Recei rylee Time (Source) Location / Volume Laterality Blood Venipuncture / 04/07/2020 10:11 0 Unknown AM CDT 10:11 AM CDT Juan Diego Luo MD LAB_1 Performing Organization Address City/State/ZIP Code Phon e Number [facility] [address] [place] [address] documented in this encounter Visit Diagnoses Diagnosis Pseudogout - Primary Other disorder of calcium metabolism Chondrocalcinosis Other disorder of calcium metabolism Primary osteoarthritis of both ankles longterm current use of non-steroidal a nti-inflammatories (NSAID) Encounter for long-term (current) use of non-steroidal anti-inflammatories Chronic pain of both knees Primary osteoarthritis of left knee Primary localized osteoarthrosis, lower leg Chronic pain of both knees documented in this encounter Care Teams Hand Rigger Relationship Specialty Start Date End Date Feliciano Uribe MD PCP - General 02/17/191999 [place] [address] documented as of this encounter
--- OUTSIDE RECORDS SUMMARY | 2022-08-03 16:59 | XMS_ITS | Clinical Summary ---
:1945 Author Organization [facility] Address [address], [place] [address] Care Team Providers Name Role Phone Feliciano [...] for each transition of care or referral. [facility] Allergies No known active allergies Medications Medication [...] Cholecalciferol 0 03/27/2019 Act johnny (VITAMIN D3) 22781 units TABS levothyroxine Take 175 mcg by [...] tablet week. Take 30 minutes before first dxly-zkjra-kzwqkzrr on. Avoid lying down for 30 minutes. [...] Phone Addre ss Type Group MEDICARE MEDICARE [id number] 1997-Presen [phone] M edicare MANAGED CARE t 66 BCBS BCBS BCBS [place] [id number] 2016-Pres[employer]ive Market [phone] [address] [address] Medicare BLUE t 65 [place] [address] Care Teams Correctional Therapy Director Relationship Specialty Start Date End Date Feliciano Uribe MD PCP - General 02/17/191999 [place] [address]
--- OUTSIDE RECORDS SUMMARY | 2022-08-03 16:59 | XMS_ITS | Encounter Summary ---
:1945 Author Organization [facility] Address [address] [place] [address] Care Team Providers Name Role Phone Feliciano Uribe MD Primary Care Provider Reason for Visit Procedure/Equipment (Routine) - Incomplete Specialty Diagnoses / Procedures Referred By Contact Refer red To Contact Diagnoses Chronic pain of both knees Juan Diego Luo MD Procedures XR Knee Bilat 3 Views [address] [place], [place] [address] Referral ID Status Reason Start Date Expiration Date Visits V isits Requested Authorized [id number] Incomplete 04/07/2020 07/07/2021 1 1 Encounter Details Date Type Department Care Team Description 04/07/2020 [facility] [place] Juan Diego Luo M D Chronic pain of both Procedure Radiology [address] [place] [address] [address] [place] [address] [phone] Social History Tobacco Use Types Packs/Day Years [...] knees documented in this encounter Care Teams Grappler Relationship Specialty Start Date End Date Feliciano Uribe MD PCP - General 02/17/191999 [place] [address] documented as of this encounter
--- OUTSIDE RECORDS SUMMARY | 2022-08-03 16:59 | XMS_ITS | Encounter Summary ---
:1945 Author Organization [facility] Address [address] [place] [address] Care Team Providers Name Role Phone Feliciano Uribe MD Primary Care Provider Encounter Details Date Type Department Care Team Description 04/08/2019 Notes/Orders [place] [address] [place] [address] [place] [address] [phone] (Wo rk) Social History Tobacco Use Types [...] on filedocumented in this encounter Care Teams Jig Bore Tool Maker Relationship Specialty Start Date End Date Feliciano Uribe MD PCP - General 02/17/191999 [place] [address] documented as of this encounter
== END 2022-07-22 03:13 | disposition home or self-care (01) ==
LOC: AMB 08-03 16:57
PROVIDERS: PCP Family Medicine; Visit Provider Family Medicine
DX: R53.1 Weakness (principal); R11.2 Nausea with vomiting, unspecified
CPT/HCPCS: A0425; A0427

== ENCOUNTER 2022-07-22 03:38 | Emergency (ER) | payer MEDICARE, BC, SELFPAY ==
[2022-07-22] VITALS (36 sets, daily range): BP systolic 114–150; BP diastolic 43–97; PULSE 93–130; RESP 16–25; TEMP 35.6–36.8; O2SAT 89–100; BMI 25.4
--- OUTSIDE RECORDS SUMMARY | 2022-07-22 04:08 | XMS_ITS | Encounter Summary ---
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
--- OUTSIDE RECORDS SUMMARY | 2022-07-22 04:08 | XMS_ITS | Clinical Summary ---
:1945 Author Organization [facility] Address [address], [place] [address] Care Team Providers Name Role Phone Feliciano [...] for each transition of care or referral. [facility] Property Manager Allergies No known active allergies Medications Medication [...] Cholecalciferol 0 03/27/2019 Act johnny (VITAMIN D3) 98126 units TABS levothyroxine Take 175 mcg by [...] tablet week. Take 30 minutes before first dklm-hokkt-rtehdyxi on. Avoid lying down for 30 minutes. [...] Phone Addre ss Type Group MEDICARE MEDICARE [id number] 1997-Presen [phone] M edicare MANAGED CARE t 66 BCBS BCBS BCBS KAKE [id number] 2016-[employer]is [place] [phone] [address] [address] Medicare BLUE t [address] [place] [address] Care Teams Race Relations Professor Relationship Specialty Start Date End Date Feliciano Uribe MD PCP - General 02/17/191999 [place] [address]
--- OUTSIDE RECORDS SUMMARY | 2022-07-22 04:08 | XMS_ITS | Encounter Summary ---
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 (NSAID) CREATININE / GFR Routine 04/07/2020 10:11 [facility] current Re sults for this AM CDT use of procedure are i n non-steroidal the results anti-inflammatories section. (NSAID) COMPLETE BLOOD Routine 04/07/2020 10:11 [facility] current Resu lts for this COUNT-W/DIFF AM CDT use of procedure are i n non-steroidal the results anti-inflammatories section. (NSAID) AST Routine 04/07/2020 10:11 [facility] current Result s for this AM CDT use of procedure are i n non-steroidal the results anti-inflammatories section. (NSAID) documented in this encounter Results Complete Blood Count-W/Diff (04/07/2020 10:11 AM CDT) P athologist Signature WBC 5.9 3.5 - 10.5 04/07/2020 [facility] x10(9)/L 10:47 AM CDT LABORATORY RBC 4.50 3.90 - 04/07/2020 [facility] 5.03 10:47 AM CDT LABORATORY x10(12)/L Hemoglobin 13.3 12.0 - 04/07/2020 [facility] 15.5 g/dL 10:47 AM CDT LABORATORY HCT 41.2 34.9 - 04/07/2020 [facility] 44.5 % 10:47 AM CDT LABORATORY MCV 91.6 80.0 - 04/07/2020 [facility] 100.0 fL 10:47 AM CDT LABORATORY MCH 29.6 27.6 - 04/07/2020 [facility] 33.3 pg 10:47 AM CDT LABORATORY MCHC 32.3 31.5 - 04/07/2020 [facility] 35.2 g/dL 10:47 AM CDT LABORATORY RDW 14.0 11.9 - 04/07/2020 [facility] 15.5 % 10:47 AM CDT LABORATORY Platelets 183 150 - 450 04/07/2020 [facility] x10(9)/L 10:47 AM CDT LABORATORY Automated NRBC 0 <=0 /100 04/07/2020 [facility] WBC 10:47 AM CDT LABORATORY Neutrophil 4.2 1.7 - 7.0 04/07/2020 [facility] Absolute 10(9)/L 10:47 AM CDT LABORATORY Lymphocyte 1.0 1.0 - 4.8 04/07/2020 [facility] Absolute 10(9)/L 10:47 AM CDT LABORATORY Monocytes 0.6 0.2 - 0.9 04/07/2020 [facility] Absolute 10(9)/L 10:47 AM CDT LABORATORY Eosinophil 0.1 0.0 - 0.5 04/07/2020 [facility] Absolute 10(9)/L 10:47 AM CDT LABORATORY Basophil 0.0 0.0 - 0.3 04/07/2020 [facility] Absolute 10(9)/L 10:47 AM CDT LABORATORY Immature Gran % 0.3 0.0 - 0.5 04/07/2020 [facility] % 10:47 AM CDT LABORATORY Specimen Anatomical Collection Method / Collection Time Recei rylee Time (Source) Location / Volume Laterality Blood Venipuncture / 04/07/2020 10:11 0 Unknown AM CDT 10:11 AM CDT Juan Diego Luo MD LAB_1 Performing Organization Address City/[facility]/ZIP Code Phon e Number [facility] [address] [place] [address] AST - Aspartate Aminotransferase (04/07/2020 10:11 AM CDT) P athologist Signature AST (SGOT) 26 10 - 40 U/L 04/07/2020 [facility] 11:00 AM CDT LABORATORY Specimen Anatomical Collection Method / Collection Time Recei rylee Time (Source) Location / Volume Laterality Blood Venipuncture / 04/07/2020 10:11 0 Unknown AM CDT 10:11 AM CDT Juan Diego Luo MD LAB_1 Performing Organization Address [facility]/ZIP Code Phon e Number [facility] [address] [place] [address] CREAT - Creatinine (04/07/2020 10:11 AM CDT) athologist Signature Creatinine 0.70 0.55 - 04/07/2020 [facility] 1.02 mg/dL 11:00 AM CDT LABORATORY GFR, Estimated >60 >60 04/07/2020 [facility] mL/min/1.7 11:00 AM CDT LABORATORY 3m2 Specimen Anatomical Collection Method / Collection Time Recei rylee Time (Source) Location / Volume Laterality Blood Venipuncture / 04/07/2020 10:11 0 Unknown AM CDT 10:11 AM CDT Juan Diego Luo MD LAB_1 Performing Organization Address City/[facility] Phon e Number [facility] [address] [place] [address] documented in this encounter Visit Diagnoses Diagnosis [facility] current use of non-steroidal a nti-inflammatories (NSAID) Encounter for long-term (current) use of non-steroidal anti-inflammatories documented in this encounter Care Teams Designer/Writer Relationship Specialty Start Date End Date Feliciano Uribe MD PCP - General 02/17/191999 [place] [address] documented as of this encounter
--- OUTSIDE RECORDS SUMMARY | 2022-07-22 04:08 | XMS_ITS | Encounter Summary ---
:1945 Author Organization [facility] Address [address] [place] [address] Care Team Providers Name Role Phone Feliciano Uribe MD Primary Care Provider Reason for Referral (Routine) - Closed Specialty Diagnoses / Procedures Referred By Contact Refer red To Contact Diagnoses Primary osteoarthritis of left knee Juan Diego Luo MD Procedures Triamcinolone Acet Inj Nos: (per 10 mg) [address] [place], [place] [address] Referral ID Status Reason Start Date Expiration Date Visits Requ ested Visits Authorized [id number] Closed 04/07/2020 07/07/2021 1 1 Procedure/Equipment (Routine) - Incomplete Specialty Diagnoses / Procedures Referred By Contact Refer red To Contact Diagnoses Chronic pain of both knees Juan Diego Luo MD Procedures XR Knee Bilat 3 Views [address] [place], [place] [address] Referral ID Status Reason Start Date Expiration Date Visits V isits Requested Authorized [id number] Incomplete 04/07/2020 07/07/2021 1 1 Reason for Visit Reason Comments Follow-up Encounter Details Date Type Department Care Team Description 04/07/2020 Office Visit Juan Diego Matthews M D Pseudogout (Primary Dx); Rheumatology [address] [facility] Chondrocalcinosis; [address] [facility] Primary osteoarthritis of both ankles; [place] [address] [place], [place] extermination inspector current use of non -steroidal anti-inflammatories (NSAID); [phone] [address] Chronic pain of both knees; [phone] Primary osteoar thritis of left knee (Work) [...] documented in this encounter Progress Notes Juan Deigo Luo MD - 04/07/2020 9:30 AM CDT RHEUMATOLOGY RECHECK This note was generated with voice activated slat twister software and may contain typographical and word substitution errors. CC: Follow-up probable episodes of pseudogout, chondrocalcinosis, mild hyperuricemia, osteoarthritisof the ankles, osteoarthritis knees HPI: I initially evaluated her March,, she gets her primary care at [facility]. She described occasional attacks [...] ankle) 2: Chondrocalcinosis seen on hand x-ray [facility] 3: Mild hyperuricemia, also puts her at [...] sooner if problem arises. Feliciano Uribe MD, [facility] [place]note 2], [place] documented in this encounter Plan of [...] (SGOT) 26 10 - 40 U/L 04/07/2020 [facility] 11:00 AM CDT LABORATORY Specimen Anatomical Collection Method / Collection Time Recei rylee Time (Source) Location / Volume Laterality Blood Venipuncture / 04/07/2020 10:11 0 Unknown AM CDT 10:11 AM CDT Juan Diego Luo MD LAB_1 Performing Organization Address City/State/ZIP Code Phon e Number [facility] [address] [place] [address] CREAT - Creatinine (04/07/2020 10:11 AM CDT) athologist Signature Creatinine 0.70 0.55 - 04/07/2020 [place] 1.02 mg/dL 11:00 AM CDT LABORATORY GFR, Estimated >60 >60 04/07/2020 [place] mL/min/1.7 11:00 AM CDT LABORATORY 3m2 Specimen Anatomical Collection Method / Collection Time Recei rylee Time (Source) Location / Volume Laterality Blood Venipuncture / 04/07/2020 10:11 0 Unknown AM CDT 10:11 AM CDT Juan Diego Luo MD LAB_1 Performing Organization Address City/State/ZIP Code Phon e Number [facility] [address] [place] [address] documented in this encounter Visit Diagnoses Diagnosis Pseudogout - Primary Other disorder of calcium metabolism Chondrocalcinosis Other disorder of calcium metabolism Primary osteoarthritis of both ankles alf current use of non-steroidal a nti-inflammatories (NSAID) Encounter for long-term (current) use of non-steroidal anti-inflammatories Chronic pain of both knees Primary osteoarthritis of left knee Primary localized osteoarthrosis, lower leg Chronic pain of both knees documented in this encounter Care Teams Marketing Automation Specialist Relationship Specialty Start Date End Date Feliciano Uribe MD PCP - General 02/17/191999 [place] [address] documented as of this encounter
--- OUTSIDE RECORDS SUMMARY | 2022-07-22 04:08 | XMS_ITS | Encounter Summary ---
:1945 Author Organization [facility] Address [address] [place] [address] Care Team Providers Name Role Phone Feliciano Uribe MD Primary Care Provider Reason for Visit Reason Comments Consult, New Patient Encounter Details Date Type Department Care Team Description 04/07/2019 Initial Consult Juan Diego Matthews, Pseudogout (Primary Dx); Rheumatology Chondrocalcinosis; [address] Primary osteo arthritis of both ankles; [address] Osteochondritis dessicans; [facility], Hypothyroid [place], [place] [address] [place] [address] [phone] Social History Tobacco Use Types Packs/Day Years [...] on any sore area. Pseudogout Definition Pseudogout (VCF-isr-zkyu) is a form of arthritis characterized by [...] Applying heat to the affected area Taking heby-icn-aqweeam NSAIDs, such as ibuprofen (Advil, Motrin, others) [...] This note was generated with voice activated negative developer software and may contain typographical and word substitution errors. Consultation was requested by: Feliciano Uribe MD, [facility], family medicine HPI: She is a 73-year-old female. No internal records are available. I received and reviewed records from [facility]. Review of lab data from 2019 shows [...] and swollen. She happened to be at [facility] following up on her Graves disease and [...] ankle) 2: Chondrocalcinosis seen on hand x-ray [facility] 3: Mild hyperuricemia, also puts her at [...] done elsewhere, uric acid was 7.8 at [facility] in 2013. Most likely this relates to chlorthalidone. If there were an alternative non diuretic blood pressure medication that would work for her, this may be something to consider. 3: No doubt, she has osteoarthritis of the ankles which gives her more of day-to-day difficulty but she still is able to walk 3 miles. We discussed Tylenol 1 g t.i.d. p.r.n. and some iomu-utn-afcjyvj Aspercreme since Voltaren gel did not appear to be covered by her insurance. 4: We will have her check back with us in 1 year, sooner if episodes of pseudogout become problematic or not managed with prednisone. Thanks for referring this nice lady. 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 Senator Relationship Specialty Start Date End Date Feliciano Uribe MD PCP - General 02/17/191999 [place] [address] documented as of this encounter
--- OUTSIDE RECORDS SUMMARY | 2022-07-22 04:08 | XMS_ITS | Encounter Summary ---
:1945 Author Organization [facility] Address [address] [place] [address] Care Team Providers Name Role Phone Feliciano Uribe MD Primary Care Provider Reason for Visit Procedure/Equipment (Routine) - Incomplete Specialty Diagnoses / Procedures Referred By Contact Refer red To Contact Diagnoses Chronic pain of both knees Juan Diego Luo MD Procedures XR Knee Bilat 3 Views [address] [place], [place] [address] Referral ID Status Reason Start Date Expiration Date Visits V isits Requested Authorized [id number] Incomplete 04/07/2020 07/07/2021 1 1 Encounter Details Date Type Department Care Team Description 04/07/2020 [facility] Juan Diego Luo M D Chronic pain of both Procedure Radiology [address] [place] [address] [address] [place] [address] [phone] Social History Tobacco Use Types Packs/Day Years [...] knees documented in this encounter Care Teams Mica Miner Relationship Specialty Start Date End Date Feliciano Uribe MD PCP - General 02/17/191999 [place] [address] documented as of this encounter
--- OUTSIDE RECORDS SUMMARY | 2022-07-22 04:08 | XMS_ITS | Encounter Summary ---
:1945 Author Organization [facility] Address [address] [place] [address] Care Team Providers Name Role Phone Feliciano Uribe MD Primary Care Provider Encounter Details Date Type Department Care Team Description 04/08/2019 Notes/Orders [place] [address] [place] [address] [place] [address] [phone] (Wo rk) Social History Tobacco Use Types [...] on filedocumented in this encounter Care Teams Vp Clinical Research Relationship Specialty Start Date End Date Felicinao Uribe MD PCP - General 02/17/191999 [place] [address] documented as of this encounter
[2022-07-22 04:15] LABS: Basophils Percent Auto 0.3 % (0.0-3.0); Eosinophils Percent Auto 1.5 % (0.0-7.0); Hematocrit 30.3 % (33.0-51.0); Hemoglobin* 9.7 gm/dL (12.0-16.0); Immature Granulocytes Pct Auto 1.1 %; Lymphocytes Percent Auto 9.4 % (20-44); Mean Corpuscular HGB Conc 32 gm/dL (32-36); Mean Corpuscular Hemoglobin 31 pg (26-34); Mean Corpuscular Volume 95 fL (80-100); Neutrophils Percent Auto 80.7 % (42.0-72.0); Platelet Count* 265 K/uL (140-440); RDW Coefficient of Variation % 14.1 % (11.5-15.5); Red Blood Count 3.18 m/uL (4.00-5.20); White Blood Count* 11.49 K/uL (4.50-11.00)
[2022-07-22 04:19] LABS: Slide Review Reflex No
[2022-07-22] MEDS: 0.9 % SODIUM CHLORIDE 1000 ml 1,000 ML IV (04:24)
[2022-07-22 04:30] LABS: Albumin* 2.8 g/dL (3.3-5.0); Chloride* 106 mmol/L (96-114); Sodium* 133 mmol/L (135-149)
[2022-07-22 04:31] LABS: Potassium* 4.9 mmol/L (3.6-5.1)
[2022-07-22 04:33] LABS: Creatinine* 0.5 mg/dL (0.5-1.5); Est. Creatinine Clearance* 34.38; Estimated Glomerular Filt Rate 97 ml/min
[2022-07-22 04:34] LABS: Alanine Aminotransferase* 265 U/L (4-35); Alkaline Phosphatase* 190 U/L (40-150); Aspartate Amino Transferase* 91 U/L (12-35); Bilirubin Direct* 0.2 mg/dL (0.0-0.5); Bilirubin Total* 0.9 mg/dL (0.1-1.5); Blood Urea Nitrogen* 16 mg/dL (7-30); Carbon Dioxide* 17 mmol/L (20-32); Glucose* 195 mg/dL (60-115); Total Protein* 4.9 g/dL (6.0-8.3)
[2022-07-22 04:37] LABS: C Reactive Protein* 4.4 mg/dL (0.5-1.0)
[2022-07-22 04:40] LABS: Prothrombin Time 13.8 Seconds
[2022-07-22 04:42] LABS: Partial Thromboplastin Time* 31 Seconds (23-33)
[2022-07-22 04:43] LABS: NT Pro B Type NatriureticPept* 445 PG/mL (0-450)
[2022-07-22 04:54] LABS: PCR FLU A Negative PCR FLU A (Negative); PCR FLU B Negative PCR FLU B (Negative)
[2022-07-22 04:57] LABS: SARS PCR* Negative SARS-CoV-2 (Negative)
[2022-07-22] MEDS: 0.9 % SODIUM CHLORIDE 500 ML 500 ML IV ×2 (06:36→07:45)
[2022-07-22 07:13] LABS: Troponin I* < 0.01 ng/mL (0.01-0.04)
[2022-07-22 07:14] LABS: Basophils Absolute Auto 0.02 K/uL (0.00-0.30); Basophils Percent Auto 0.2 % (0.0-3.0); Eosinophils Absolute Auto 0.02 K/uL (0.00-0.50); Eosinophils Percent Auto 0.2 % (0.0-7.0); Hematocrit 22.1 % (33.0-51.0); Immature Granulocytes Abs Auto 0.05 K/uL (0.00-0.30); Immature Granulocytes Pct Auto 0.5 %; Mean Corpuscular HGB Conc 32 gm/dL (32-36); Mean Corpuscular Hemoglobin 30 pg (26-34); Mean Corpuscular Volume 94 fL (80-100); Monocytes Percent Auto 6.2 % (0.0-11.0); Neutrophils Percent Auto 85.9 % (42.0-72.0); Platelet Count* 210 K/uL (140-440); RDW Coefficient of Variation % 14.2 % (11.5-15.5); Red Blood Count 2.35 m/uL (4.00-5.20); White Blood Count* 9.85 K/uL (4.50-11.00)
[2022-07-22 07:23] LABS: Slide Review Reflex No
[2022-07-22] MEDS: ONDANSETRON 2 MG/ML inj 4 MG IVP (07:23)
--- NOTE | 2022-07-22 07:24 | CRLHL7_ITS ---
For Patients: As a result of the Century Cures Act, medical imaging exams and procedure reports are released immediately into your electronic medical record. You may view this report before your referring provider. If you have questions, please contact your health care provider. INDICATION: GI bleed. TECHNIQUE: Multiple axial images were obtained from the diaphragm to symphysis pubis after administration of 64 mL of IV Isovue-370 intravenously. Sagittal and coronal re-formatted images were obtained. COMPARISON: 07/12/2017. FINDINGS: The visualized portion of the long bases are clear. There is no focal liver lesion. The gallbladder is surgically absent. There is intra and extrahepatic biliary dilatation again noted consistent with a reservoir effect. This is unchanged from the study of 2017. There are calcifications in the spleen consistent with previous granulomatous disease. There is stable tiny cyst in the spleen inferiorly. There is fatty involution of the pancreas. There is no mass in the pancreas. The adrenal glands are unremarkable. There are 2 cysts in the right kidney. There is no hydronephrosis. There is no stone seen in the ureters. There are postoperative changes on the stomach. There is no evidence of a bowel obstruction. There is a moderate amount of stool in the colon. The abdominal aorta is normal in caliber. There are atherosclerotic calcifications. There is no adenopathy. There is no free fluid in the abdomen or pelvis. The uterus is surgically absent. There are degenerative changes in the spine IMPRESSION: 1. No acute abnormality. 2. Status post cholecystectomy, gastric bypass and hysterectomy. 3. Prominent intra and extra hepatic biliary ducts unchanged from the previous study consistent with a reservoir effect. 4. Right kidney cysts. Please note that all CT scans at this facility use dose modulation, iterative reconstruction, and/or weight-based dosing when appropriate to reduce radiation dose to as low as reasonably achievable. Dictated by Salvador Rebolledo MD @ 07/22/2022 9:33:28 AM (Electronically Signed)
--- NOTE | 2022-07-22 07:41 | ED_ITS ---
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 She is 1 week status post right total knee. Has only been on low-dose aspirin. She does not know of any diverticular disease. She is not having abdominal pain. She had woken and subsequently vomited blood and gestures with a cupped hand as to quantity, then went to the stool and says she filled the bowl with blood. Became diaphoretic and lightheaded. She is not having urge to have a bowel movement at this time. Is not feeling short of breath. I note her to be tachycardic on arrival. Is not feeling lightheaded at this time. Not presently really nauseated either. No fever. Admits was feeling a little unwell last night before bed. Has been constipated postop. Reviewing records I see that about 2 weeks ago hemoglobin was nearly 14. Related Data Home Medications Medication Instructions Recorded Confirmed amlodipine 10 mg tablet 10 mg PO DAILY 06/26/22 07/22/22 atorvastatin 10 mg tablet 10 mg PO .Bedtime 06/26/22 07/22/22 calcium carbonate 500 mg calcium 500 mg PO QDAY 06/26/22 07/22/22 (1,250 mg) tablet (Oyster Shell Calcium) cyanocobalamin (vitamin B-12) 1,000 mcg IM ONCE 06/26/22 07/22/22 1,000 mcg/mL injection solution cyclobenzaprine 10 mg tablet 10 mg PO .Bedtime as needed PRN 06/26/22 07/22/22 fluoxetine 40 mg capsule 40 mg PO DAILY 06/26/22 07/22/22 levothyroxine 175 mcg tablet 175 mcg PO DAILY 06/26/22 07/22/22 lisinopril 10 mg tablet 10 mg PO DAILY 06/26/22 07/22/22 multivitamin 1 tab PO QAM 06/26/22 07/22/22 naproxen 250 mg tablet 250 mg PO QAM PRN 06/26/22 07/22/22 nitroglycerin 0.4 mg sublingual 0.4 mg sublingual ONCE PRN 06/26/22 07/12/22 tablet prednisone 20 mg tablet 20 mg PO BID PRN 06/26/22 07/22/22 Tylenol 07/22/22 aspirin 81 mg capsule 81 mg PO BID 07/22/22 07/22/22 Previous Rx's Medication Instructions Recorded cholecalciferol (vitamin D3) 1,250 50,000 unit PO .Once A Week #12 06/26/22 mcg (50,000 unit) tablet tabs Allergies Allergy/AdvReac Type Severity Reaction Status Date / Time No Known Allergies Allergy Verified 07/22/22 03:48 Review of Systems Status of ROS: Reports: 10 or more systems reviewed and unremarkable except as noted in History and below [facility] Medical History Calculus of kidney (05/06/09) Cerebrovascular accident (CVA) (05/02/12) Depression (05/06/09) Gastroesophageal reflux disease (05/06/09) Graves' disease (05/06/09) Hiatal hernia (05/06/09) History of tear of meniscus of knee joint (05/02/12) Hyperlipidemia (05/06/09) Hypertension (05/06/09) Hypothyroidism (05/06/09) Muscle spasms of neck Obstructive sleep apnea syndrome Osteopenia (05/13/09) Osteoporosis Restless legs syndrome Vitamin D deficiency Surgical History History of cystoscopy (05/02/12) History of hysterectomy (05/02/12) Status post gastric bypass for obesity Social History Smoking Status: Never smoker Do you use any of these nicotine containing products: None How often do you have a drink containing alcohol: 2-3 times a week Alcohol type: wine How many standard drinks containing alcohol do you have on a typical day: 1 or 2 How often do you have six or more drinks on one occasion: Weekly AUDIT-C Alcohol total score: 6 Non-prescribed substance use: denies use Caffeine: Yes (DAILY 3) Are you using contraception or practicing any form of control: No Exam Narrative: Exam Narrative: To split. Quite alert NAD. Looks pale. Cranial nerves 2-12 intact Is breathing easily. Lungs are clear. Oropharynx is dry. I do not see evidence of blood. Mucous membranes generally are rather pale. Abdomen is soft and nontender with normoactive bowel sounds. Cardiovascular is tachycardic and in a regular rhythm. Families are well perfused. Examination of recent surgical site of the right knee shows bandage in place without inflammatory changes or unusual swelling. There is bruising in the right thigh. Has compression stockings on the lower legs with some dried blood; on buttocks as well. Const: Vital Signs, click to edit/add: Vital Signs - 24 hr 07/22/22 03:39 07/22/22 03:41 07/22/22 04:03 Temperature 96.0 F L Pulse Rate 129 H Pulse Rate [Left P ulse Oximeter] 130 H Respiratory Rate 16 Blood Pressure 114/43 L Blood Pressure [Ri ght Upper Arm] 114/43 L Pulse Oximetry 95 92 96 Oxygen Delivery Me thod Room Air 07/22/22 04:20 07/22/22 04:21 07/22/22 04:32 Temperature Pulse Rate 115 H 112 H Pulse Rate [Left P ulse Oximeter] Respiratory Rate Blood Pressure 129/97 H 136/53 L Blood Pressure [Ri ght Upper Arm] Pulse Oximetry 97 98 Oxygen Delivery Me thod 07/22/22 04:37 07/22/22 04:45 07/22/22 05:00 Temperature Pulse Rate 107 H 101 H 97 Pulse Rate [Left P ulse Oximeter] Respiratory Rate Blood Pressure Blood Pressure [Ri ght Upper Arm] Pulse Oximetry 89 96 98 Oxygen Delivery Me thod 07/22/22 05:02 07/22/22 05:15 07/22/22 05:30 Temperature Pulse Rate 98 96 93 Pulse Rate [Left P ulse Oximeter] Respiratory Rate Blood Pressure 120/45 L Blood Pressure [Ri ght Upper Arm] Pulse Oximetry 98 97 97 Oxygen Delivery Me thod 07/22/22 05:32 07/22/22 05:45 07/22/22 06:00 Temperature Pulse Rate 101 H 101 H 105 H Pulse Rate [Left P ulse Oximeter] Respiratory Rate Blood Pressure 126/57 L Blood Pressure [Ri ght Upper Arm] Pulse Oximetry 100 98 99 Oxygen Delivery Me thod 07/22/22 06:02 07/22/22 06:15 07/22/22 06:30 Temperature Pulse Rate 99 101 H 98 Pulse Rate [Left P ulse Oximeter] Respiratory Rate Blood Pressure 128/54 L Blood Pressure [Ri ght Upper Arm] Pulse Oximetry 97 100 97 Oxygen Delivery Me thod 07/22/22 06:32 07/22/22 06:45 07/22/22 07:00 Temperature Pulse Rate 100 104 H 126 H Pulse Rate [Left P ulse Oximeter] Respiratory Rate Blood Pressure 139/51 L Blood Pressure [Ri ght Upper Arm] Pulse Oximetry 98 98 97 Oxygen Delivery Me thod 07/22/22 07:01 07/22/22 07:14 Temperature 97.6 F Pulse Rate 126 H Pulse Rate [Left P ulse Oximeter] Respiratory Rate Blood Pressure 127/59 L Blood Pressure [Ri ght Upper Arm] Pulse Oximetry 99 Oxygen Delivery Me thod Documenting provider has reviewed patient's vital signs: yes Course Vital Signs Vital signs: Initial Vital Signs Temperature 96.0 F L 07/22/22 03:39 Temperature Source Temporal Artery Scan 07/22/22 03:39 Pulse Rate 130 H 07/22/22 03:39 Respiratory Rate 16 07/22/22 03:39 Blood Pressure 114/43 L 07/22/22 03:39 Blood Pressure Mean 66 07/22/22 03:39 Blood Pressure Position Supine 07/22/22 03:39 Pulse Oximetry 95 07/22/22 03:39 Oxygen Delivery Method 07/22/22 03:39 Vital Signs Temperature 96.0 F L 07/22/22 03:39 Pulse Rate 130 H 07/22/22 03:39 Respiratory Rate 16 07/22/22 03:39 Blood Pressure 114/43 L 07/22/22 03:39 Pulse Oximetry 95 07/22/22 03:39 Oxygen Delivery Method 07/22/22 03:39 Temperature 97.6 F 07/22/22 07:14 Pulse Rate 126 H 07/22/22 07:01 Respiratory Rate 16 07/22/22 03:39 Blood Pressure 127/59 L 07/22/22 07:01 Pulse Oximetry 99 07/22/22 07:01 Oxygen Delivery Method 07/22/22 03:39 MDM - GI Bleed MDM Narrative Medical decision making narrative: Will be collecting labs to check a blood level, type and screen. Initiating 2 lines and fluid resuscitation. Assuming that this tachycardia does represent more abrupt or precipitous blood loss. Blood pressure is okay. Other than tachycardia Ms. Jimenez appears to be asymptomatic. EKG reviewed by me shows sinus tachycardia at 120 Initial hemoglobin returns at 9.7. I did collect coags which are unremarkable however transaminases are moderately elevated. Had cholecystectomy with gastric bypass. Last year transaminases were normal. Re-examination she has no abdominal tenderness though later does complain of some discomfort a little nausea in the low abdomen. Had not had urges to this point have any further bowel movement. Received a little over 1 L of normal saline with recheck of hemoglobin at 7 at 3 hours. Given TXA. Remained tachycardic in the 1 teens. Given Zofran for nausea. Requested type and cross now 2 units. Anticipating admission. Have added added hepatitis panel to the labs. With combination of factors now I think we will go ahead and scan abdomen. Just before 8:00 a.m. has got up to urinate and was very lightheaded almost passed out. Diaphoretic. Had some smears of maroon stool. Hanging another L of fluids. Pending transfusion. Lying flat blood pressure 130s over 50. Lightheadedness still present but much less. At change of shift CT scan abdomen pelvis is pending. I discussed this case with our hospitalist however it is a challenge for us to do scopes on the weekend let alone intervene with an active GI bleed. Will be looking for care elsewhere. Medical Records Attestation: I reviewed the patient's medical records. Lab Data Attestation: I reviewed the patient's lab results. Labs: Lab Results 07/22/22 07/22/22 07/22/22 Range/Units 03:49 04:07 04:07 WBC 11.49 H (4.50-11.00) K/uL RBC 3.18 L (4.00-5.20) m/uL Hgb 9.7 L (12.0-16.0) gm/dL Hct 30.3 L (33.0-51.0) % MCV 95 (80-100) fL MCH 31 (26-34) pg MCHC 32 (32-36) gm/dL RDW Coeff of Jerica 14.1 (11.5-15.5) % Plt Count 265 (140-440) K/uL Neut % (Auto) 80.7 H (42.0-72.0) % Lymph % (Auto) 9.4 L (20-44) % [place] % (Auto) 7.0 (0.0-11.0) % Eos % (Auto) 1.5 (0.0-7.0) % Baso % (Auto) 0.3 (0.0-3.0) % Neut # (Auto) 9.30 H (1.7-7.0) K/uL Lymph # (Auto) 1.10 (0.90-2.90) K/uL [place] # (Auto) 0.80 (0.00-0.90) K/UL Eos # (Auto) 0.20 (0.00-0.50) K/uL Baso # (Auto) 0.00 (0.00-0.30) K/uL Abs Immat Gran (auto) 0.10 (0.00-0.30) K/uL Imm/Tot Granulo (auto) 1.1 % INR (0.91-1.10) APTT (23-33) Seconds Sodium (135-149) mmol/L Potassium (3.6-5.1) mmol/L Chloride (96-114) mmol/L Carbon Dioxide (20-32) mmol/L BUN (7-30) mg/dL Creatinine (0.5-1.5) mg/dL Estimated Creat Clear Estimated GFR ml/min Glucose (60-115) mg/dL Calcium (8.4-10.6) mg/dL Total Bilirubin (0.1-1.5) mg/dL Direct Bilirubin (0.0-0.5) mg/dL AST (12-35) U/L ALT (4-35) U/L Alkaline Phosphatase (40-150) U/L Troponin I (0.01-0.04) ng/mL C-Reactive Protein (0.5-1.0) mg/dL NT-Pro-B Natriuret Pep (0-450) PG/mL Total Protein (6.0-8.3) g/dL Albumin (3.3-5.0) g/dL SARS-CoV-2 (PCR) Negative SARS-CoV-2 (Negative) Hepatitis A IgM Ab Hep Bs Antigen Hep Bs Antibody (Negative) Hep B Core IgM Ab Hepatitis C Antibody (Negative) Hep C Ab Index (EZIO) Hep C Ab Interp EZIO Hepatitis Interpret Influenza Type A (PCR) Negative PCR FLU A (Negative) Influenza Type B (PCR) Negative PCR FLU B (Negative) Blood Type O Negative Antibody Screen NEGATIVE Crossmatch (AHG) See Detail 07/22/22 07/22/22 07/22/22 Range/Units 04:07 04:07 04:07 WBC (4.50-11.00) K/uL RBC (4.00-5.20) m/uL Hgb (12.0-16.0) gm/dL Hct (33.0-51.0) % MCV (80-100) fL MCH (26-34) pg MCHC (32-36) gm/dL RDW Coeff of Jerica (11.5-15.5) % Plt Count (140-440) K/uL Neut % (Auto) (42.0-72.0) % Lymph % (Auto) (20-44) % [place] % (Auto) (0.0-11.0) % Eos % (Auto) (0.0-7.0) % Baso % (Auto) (0.0-3.0) % Neut # (Auto) (1.7-7.0) K/uL Lymph # (Auto) (0.90-2.90) K/uL [place] # (Auto) (0.00-0.90) K/UL Eos # (Auto) (0.00-0.50) K/uL Baso # (Auto) (0.00-0.30) K/uL Abs Immat Gran (auto) (0.00-0.30) K/uL Imm/Tot Granulo (auto) % INR 1.00 (0.91-1.10) APTT 31 (23-33) Seconds Sodium 133 L (135-149) mmol/L Potassium 4.9 (3.6-5.1) mmol/L Chloride 106 (96-114) mmol/L Carbon Dioxide 17 L (20-32) mmol/L BUN 16 (7-30) mg/dL Creatinine 0.5 (0.5-1.5) mg/dL Estimated Creat Clear 34.38 Estimated GFR 97 ml/min Glucose 195 H (60-115) mg/dL Calcium 8.0 L (8.4-10.6) mg/dL Total Bilirubin 0.9 (0.1-1.5) mg/dL Direct Bilirubin 0.2 (0.0-0.5) mg/dL AST 91 H (12-35) U/L ALT 265 H (4-35) U/L Alkaline Phosphatase 190 H (40-150) U/L Troponin I < 0.01 L (0.01-0.04) ng/mL C-Reactive Protein 4.4 H (0.5-1.0) mg/dL NT-Pro-B Natriuret Pep 445 (0-450) PG/mL Total Protein 4.9 L (6.0-8.3) g/dL Albumin 2.8 L (3.3-5.0) g/dL SARS-CoV-2 (PCR) (Negative) Hepatitis A IgM Ab Cancelled Hep Bs Antigen Cancelled Hep Bs Antibody (Negative) Hep B Core IgM Ab Cancelled Hepatitis C Antibody (Negative) Hep C Ab Index (EZIO) Cancelled Hep C Ab Interp EZIO Cancelled Hepatitis Interpret Cancelled Influenza Type A (PCR) (Negative) Influenza Type B (PCR) (Negative) Blood Type Antibody Screen Crossmatch (AHG) 07/22/22 07/22/22 07/22/22 Range/Units 07:05 07:05 07:05 WBC 9.85 (4.50-11.00) K/uL RBC 2.35 L (4.00-5.20) m/uL Hgb 7.0 L* (12.0-16.0) gm/dL Hct 22.1 L (33.0-51.0) % MCV 94 (80-100) fL MCH 30 (26-34) pg MCHC 32 (32-36) gm/dL RDW Coeff of Jerica 14.2 (11.5-15.5) % Plt Count 210 (140-440) K/uL Neut % (Auto) 85.9 H (42.0-72.0) % Lymph % (Auto) 7.0 L (20-44) % [place] % (Auto) 6.2 (0.0-11.0) % Eos % (Auto) 0.2 (0.0-7.0) % Baso % (Auto) 0.2 (0.0-3.0) % Neut # (Auto) 8.50 H (1.7-7.0) K/uL Lymph # (Auto) 0.70 L (0.90-2.90) K/uL [place] # (Auto) 0.60 (0.00-0.90) K/UL Eos # (Auto) 0.02 (0.00-0.50) K/uL Baso # (Auto) 0.02 (0.00-0.30) K/uL Abs Immat Gran (auto) 0.05 (0.00-0.30) K/uL Imm/Tot Granulo (auto) 0.5 % INR (0.91-1.10) APTT (23-33) Seconds Sodium (135-149) mmol/L Potassium (3.6-5.1) mmol/L Chloride (96-114) mmol/L Carbon Dioxide (20-32) mmol/L BUN (7-30) mg/dL Creatinine (0.5-1.5) mg/dL Estimated Creat Clear Estimated GFR ml/min Glucose (60-115) mg/dL Calcium (8.4-10.6) mg/dL Total Bilirubin (0.1-1.5) mg/dL Direct Bilirubin (0.0-0.5) mg/dL AST (12-35) U/L ALT (4-35) U/L Alkaline Phosphatase (40-150) U/L Troponin I 0.02 (0.01-0.04) ng/mL C-Reactive Protein (0.5-1.0) mg/dL NT-Pro-B Natriuret Pep (0-450) PG/mL Total Protein (6.0-8.3) g/dL Albumin (3.3-5.0) g/dL SARS-CoV-2 (PCR) (Negative) Hepatitis A IgM Ab Hep Bs Antigen Negative Hep Bs Antibody Negative (Negative) Hep B Core IgM Ab Hepatitis C Antibody Negative (Negative) Hep C Ab Index (EZIO) Hep C Ab Interp EZIO Hepatitis Interpret Influenza Type A (PCR) (Negative) Influenza Type B (PCR) (Negative) Blood Type Antibody Screen Crossmatch (AHG) Critical Care Time Critical Care Time Critical Care Time: Yes Attestation: The patient required my highest level preparedness to intervene emergently and I personally spent this critical care time directly and personally managing the patient. This critical care time included: Obtaining a history; Examining the patient; Pulse oximetry; Ordering and reviewing of studies; Arranging urgent treatment with development of a management plan; Evaluation of patients response to treatment; Frequent reassessment discussions with other providers. This critical care time was performed to assess and manage the high probability of imminent life-threatening deterioration that could result in multiorgan fa ilure. It was exclusive of separate billable procedures and treating other patients and teaching time. Total Critical Care Time in Minutes: 70 Discharge Plan Discharge Patient Disposition: Pending Disposition
[2022-07-22 07:44] LABS: Troponin I* 0.02 ng/mL (0.01-0.04)
--- NOTE | 2022-07-22 07:45 | ED.NURSE ---
wanted to try to urinate on commode. did void approx 200 ml of charla urine. became very weak and near syncopal, did help back to bed. was very pale and sl diaphoretic. did hang 1000 ml and will give 500 ml bolus of additional fluid per ok of dr fonseca.
[2022-07-22] MEDS: TRANEXAMIC ACID 100 MG/ML INJ 1000 MG IV (08:10)
[2022-07-22 08:19] LABS: Hepatitis B Surface Antigen* Negative (Negative)
[2022-07-22 08:36] LABS: Hepatitis C Virus Antibody* Negative (Negative)
[2022-07-22 08:37] LABS: Hepatitis B Surface Antibody* Negative (Negative)
[2022-07-22] MEDS: 0.9 % SODIUM CHLORIDE 250 ml IV (09:00)
--- NOTE | 2022-07-22 09:34 | ED.NURSE ---
anw has accepted and they will call with bed placement. is feeling less nauseated. feels tired. getting 1 unit of prbcs-see tar.
--- NOTE | 2022-07-22 10:13 | ED.NURSE ---
per dr fuller need to give 2 units blood (prbc) and to run each unit over~ 1 hour.. denies any reaction to blood.
--- NOTE | 2022-07-22 11:05 | ED.NURSE ---
is getting 2nd unit of blood. denies any new complaints. at bs. is awaiting anw call. does have more color, not as pale.
--- NOTE | 2022-07-22 11:23 | ED.NURSE ---
report was called to luz dang rn. will transfer to room 2014.
--- NOTE | 2022-07-22 11:57 | ED.NURSE ---
transferred via [facility] to [facility] 2013. did call [phone] and wasre that she is on the way.
[2022-07-22 12:42] LABS: Mono Screen* Negative (Negative)
[2022-07-25 13:34] LABS: CMV Antibody IgG <0.20 U/mL; CMV Antibody IgM <8.0 AU/mL (<=29.9)
== END 2022-07-22 11:55 | disposition home or self-care (01) ==
PROVIDERS: Emergency Provider Family Medicine; PCP Family Medicine
DX: K92.2 Gastrointestinal hemorrhage, unspecified (principal)
CPT/HCPCS: 36415; 36430; 74177; 80048; 80074; 80076; 83880; 84484; 85025; 85610; 85730; 86140; 86308; 86644; 86645; 86706; 86803; 86850; 86900; 86901; 86922; 87340; 87631; 93005; 94761; 96374; 99285; 99291; J2405; J7030; J7050; J7120; P9016; Q9967

== ENCOUNTER 2022-07-22 11:42 | Outpatient (CLI) | payer MEDICARE, BC, SELFPAY ==
--- OUTSIDE RECORDS SUMMARY | 2022-08-03 17:21 | XMS_ITS | Encounter Summary ---
:1945 Author Organization [employer] Address [address] [place] [address] Care Team Providers Name Role Phone Feliciano Uribe MD Primary Care Provider Reason for Visit Procedure/Equipment (Routine) - Incomplete Specialty Diagnoses / Procedures Referred By Contact Refer red To Contact Diagnoses Chronic pain of both knees Juan Diego Luo MD Procedures XR Knee Bilat 3 Views 38[address] [place], [place] [address] Referral ID Status Reason Start Date Expiration Date Visits V isits Requested Authorized [id number] Incomplete 04/07/2020 07/07/2021 1 1 Encounter Details Date Type Department Care Team Description 04/07/2020 [facility] [place] Juan Diego Luo M D Chronic pain of both Procedure Radiology [address] [place] [address] [address] [place] [address] [phone] Social History Tobacco Use Types Packs/Day Years [...] Routine 04/07/2020 10:31 AM Chronic pain of vijya th Results for this VIEWS CDT knees [...] knees documented in this encounter Care Teams Immunopathologist Relationship Specialty Start Date End Date Feliciano rUibe MD PCP - General 02/17/191999 [place] [address] documented as of this encounter
--- OUTSIDE RECORDS SUMMARY | 2022-08-03 17:21 | XMS_ITS | Clinical Summary ---
:1945 Author Organization [facility] Address [address] [address] Care Team Providers Name Role Phone Feliciano [...] for each transition of care or referral. [facility] Allergies No known active allergies Medications Medication [...] Cholecalciferol 0 03/27/2019 Act johnny (VITAMIN D3) 36398 units TABS levothyroxine Take 175 mcg by [...] tablet week. Take 30 minutes before first bgbf-rfqfw-zdndnbap on. Avoid lying down for 30 minutes. [...] Phone Addre ss Type Group MEDICARE MEDICARE [id number] 1997-Presen [phone] M edicare MANAGED CARE t 66 BCBS BCBS BCBS [employer] [employer] [place] [id number] 2016-PresZymeworks [phone] [address] [address] Medicare BLUE t [address] [place] [address] Care Teams Optomechanical Technician Relationship Specialty Start Date End Date Feliciano Uribe MD PCP - General 02/17/191999 [place] [address]
--- OUTSIDE RECORDS SUMMARY | 2022-08-03 17:21 | XMS_ITS | Encounter Summary ---
:1945 Author Organization [facility] Address [address] [place] [address] Care Team Providers Name Role Phone Feliciano Uribe MD Primary Care Provider Reason for Referral (Routine) - Closed Specialty Diagnoses / Procedures Referred By Contact Refer red To Contact Diagnoses Primary osteoarthritis of left knee Juan Diego Luo MD Procedures Triamcinolone Acet Inj Nos: (per 10 mg) [address] [place], [place] [address] Referral ID Status Reason Start Date Expiration Date Visits Requ ested Visits Authorized [id number] Closed 04/07/2020 07/07/2021 1 1 Procedure/Equipment (Routine) - Incomplete Specialty Diagnoses / Procedures Referred By Contact Refer red To Contact Diagnoses Chronic pain of both knees Juan Diego Luo MD Procedures XR Knee Bilat 3 Views [address] [place], [place] [address] Referral ID Status Reason Start Date Expiration Date Visits V isits Requested Authorized [id number] Incomplete 04/07/2020 07/07/2021 1 1 Reason for Visit Reason Comments Follow-up Encounter Details Date Type Department Care Team Description 04/07/2020 Office Visit Juan Diego Matthews M D Pseudogout (Primary Dx); Rheumatology 3800 [facility] Chondrocalcinosis; [address] [facility] Primary osteoarthritis of both ankles; [place] [address] [place], [place]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 CC: Follow-up probable episodes of pseudogout, chondrocalcinosis, mild hyperuricemia, osteoarthritisof the ankles, osteoarthritis knees HPI: I initially evaluated her March,, she gets her primary care at [facility]. She described occasional attacks [...] ankle) 2: Chondrocalcinosis seen on hand x-ray [facility] 3: Mild hyperuricemia, also puts [...] sooner if problem arises. Feliciano Uribe MD, [facility], [place], [place] documented in this encounter Plan of [...] (SGOT) 26 10 - 40 U/L 04/07/2020 [facility] 11:00 AM CDT LABORATORY Specimen Anatomical Collection Method / Collection Time Recei rylee Time (Source) Location / Volume Laterality Blood Venipuncture / 04/07/2020 10:11 0 Unknown AM CDT 10:11 AM CDT Juan Diego Luo MD LAB_1 Performing Organization Address City/State/ZIP Code Phon e Number [facility] [address] [place] [address] CREAT - Creatinine (04/07/2020 10:11 AM CDT) athologist Signature Creatinine 0.70 0.55 - 04/07/2020 [facility] 1.02 mg/dL 11:00 AM CDT LABORATORY GFR, Estimated >60 >60 04/07/2020 [facility] mL/min/1.7 11:00 AM CDT LABORATORY 3m2 Specimen Anatomical Collection Method / Collection Time Recei rylee Time (Source) Location / Volume Laterality Blood Venipuncture / 04/07/2020 10:11 0 Unknown AM CDT 10:11 AM CDT Juan Diego Luo MD LAB_1 Performing Organization Address City/State/ZIP Code Phon e Number [facility] [address] [place] [address] documented in this encounter Visit Diagnoses Diagnosis Pseudogout - Primary Other disorder of calcium metabolism Chondrocalcinosis Other disorder of calcium metabolism Primary osteoarthritis of both ankles residential current use of non-steroidal a nti-inflammatories (NSAID) Encounter for long-term (current) use of non-steroidal anti-inflammatories Chronic pain of both knees Primary osteoarthritis of left knee Primary localized osteoarthrosis, lower leg Chronic pain of both knees documented in this encounter Care Teams Spiral Spring Winder Relationship Specialty Start Date End Date Feliciano Uribe MD PCP - General 02/17/191999 [place] [address] documented as of this encounter
--- OUTSIDE RECORDS SUMMARY | 2022-08-03 17:21 | XMS_ITS | Encounter Summary ---
:1945 Author Organization [facility] Address [address] [place] [address] Care Team Providers Name Role Phone Unavailable Primary Care Provider Unavailable Encounter Details Date Type Department Care Team Description 08/27/1989 PN Conversion Only SOFTWARE RECRUITER [address] [place] [address] Social History Tobacco Use Types Packs/Day Years Used Date Smoking Tobacco: Never Assessed Sex Assigned at Date Recorded Not on file documented as of this encounter Plan of Treatment Not on filedocumented as of this encounter Visit Diagnoses Not on filedocumented in this encounter
--- OUTSIDE RECORDS SUMMARY | 2022-08-03 17:21 | XMS_ITS | Encounter Summary ---
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 (NSAID) CREATININE / GFR Routine 04/07/2020 10:11 residential current Re sults for this AM CDT use of procedure are i n non-steroidal the results anti-inflammatories section. (NSAID) COMPLETE BLOOD Routine 04/07/2020 10:11 residential current Resu lts for this COUNT-W/DIFF AM CDT use of procedure are i n non-steroidal the results anti-inflammatories section. (NSAID) AST Routine 04/07/2020 10:11 residential current Result s for this AM CDT use of procedure are i n non-steroidal the results anti-inflammatories section. (NSAID) documented in this encounter Results Complete Blood Count-W/Diff (04/07/2020 10:11 AM CDT) P athologist Signature WBC 5.9 3.5 - 10.5 04/07/2020 [facility] x10(9)/L 10:47 AM CDT LABORATORY RBC 4.50 3.90 - 04/07/2020 [facility] 5.03 10:47 AM CDT LABORATORY x10(12)/L Hemoglobin 13.3 12.0 - 04/07/2020 [facility] 15.5 g/dL 10:47 AM CDT LABORATORY HCT 41.2 34.9 - 04/07/2020 [facility] 44.5 % 10:47 AM CDT LABORATORY MCV 91.6 80.0 - 04/07/2020 [facility] 100.0 fL 10:47 AM CDT LABORATORY MCH 29.6 27.6 - 04/07/2020 [facility] 33.3 pg 10:47 AM CDT LABORATORY MCHC 32.3 31.5 - 04/07/2020 [facility] 35.2 g/dL 10:47 AM CDT LABORATORY RDW 14.0 11.9 - 04/07/2020 [facility] 15.5 % 10:47 AM CDT LABORATORY Platelets 183 150 - 450 04/07/2020 [facility] x10(9)/L 10:47 AM CDT LABORATORY Automated NRBC 0 <=0 /100 04/07/2020 [facility] WBC 10:47 AM CDT LABORATORY Neutrophil 4.2 1.7 - 7.0 04/07/2020 [facility] Absolute 10(9)/L 10:47 AM CDT LABORATORY Lymphocyte 1.0 1.0 - 4.8 04/07/2020 [facility] Absolute 10(9)/L 10:47 AM CDT LABORATORY Monocytes 0.6 0.2 - 0.9 04/07/2020 [facility] Absolute 10(9)/L 10:47 AM CDT LABORATORY Eosinophil 0.1 0.0 - 0.5 04/07/2020 [facility] Absolute 10(9)/L 10:47 AM CDT LABORATORY Basophil 0.0 0.0 - 0.3 04/07/2020 [facility] Absolute 10(9)/L 10:47 AM CDT LABORATORY Immature Gran % 0.3 0.0 - 0.5 04/07/2020 [facility] % 10:47 AM CDT LABORATORY Specimen Anatomical Collection Method / Collection Time Recei rylee Time (Source) Location / Volume Laterality Blood Venipuncture / 04/07/2020 10:11 0 Unknown AM CDT 10:11 AM CDT Juan Diego Luo MD LAB_1 Performing Organization Address City/[facility]/ZIP Code Phon e Number [facility] [address] [place] [address] AST - Aspartate Aminotransferase (04/07/2020 10:11 AM CDT) P athologist Signature AST (SGOT) 26 10 - 40 U/L 04/07/2020 [facility] 11:00 AM CDT LABORATORY Specimen Anatomical Collection Method / Collection Time Recei rylee Time (Source) Location / Volume Laterality Blood Venipuncture / 04/07/2020 10:11 0 Unknown AM CDT 10:11 AM CDT Juan Diego Luo MD LAB_1 Performing Organization Address [facility]/ZIP Code Phon e Number [facility] [address] [place] [address] CREAT - Creatinine (04/07/2020 10:11 AM CDT) athologist Signature Creatinine 0.70 0.55 - 04/07/2020 [facility] 1.02 mg/dL 11:00 AM CDT LABORATORY GFR, Estimated >60 >60 04/07/2020 [facility] mL/min/1.7 11:00 AM CDT LABORATORY 3m2 Specimen Anatomical Collection Method / Collection Time Recei rylee Time (Source) Location / Volume Laterality Blood Venipuncture / 04/07/2020 10:11 0 Unknown AM CDT 10:11 AM CDT Juan Diego Luo MD LAB_1 Performing Organization Address City/[facility] Phon e Number [facility] [address] [place] [address] documented in this encounter Visit Diagnoses Diagnosis residential current use of non-steroidal a nti-inflammatories (NSAID) Encounter for long-term (current) use of non-steroidal anti-inflammatories documented in this encounter Care Teams Chief Telephone Operator Relationship Specialty Start Date End Date Feliciano Uribe MD PCP - General 02/17/191999 [place] [address] documented as of this encounter
--- OUTSIDE RECORDS SUMMARY | 2022-08-03 17:21 | XMS_ITS | Encounter Summary ---
:1945 Author Organization [email or web address] Address [address] [place] [address] Care Team Providers Name Role Phone Feliciano Uribe MD Primary Care Provider Reason for Visit Reason Comments Consult, New Patient Encounter Details Date Type Department Care Team Description 04/07/2019 Initial Consult Juan Diego Matthews, Pseudogout (Primary Dx); Rheumatology Chondrocalcinosis; [address] Primary osteo arthritis of both ankles; [address] Osteochondritis dessicans; [facility], Hypothyroid ism, unspecified type [address] [place] [address] [phone] Social History Tobacco Use Types Packs/Day Years [...] on any sore area. Pseudogout Definition Pseudogout (PPP-vsk-mwdv) is a form of arthritis characterized by [...] Applying heat to the affected area Taking dddt-njn-blsgklg NSAIDs, such as ibuprofen (Advil, Motrin, others) [...] This note was generated with voice activated communication arts lecturer software and may contain typographical and word substitution errors. Consultation was requested by: Feliciano Uribe MD, [facility], family medicine HPI: She is a 73-year-old female. No internal records are available. I received and reviewed records from [facility]. Review of lab data from 2019 shows [...] and swollen. She happened to be at [facility] following up on her Graves disease and [...] ankle) 2: Chondrocalcinosis seen on hand x-ray [facility] 3: Mild hyperuricemia, also puts her at [...] done elsewhere, uric acid was 7.8 at [facility] in 2013. Most likely this relates [...] Tylenol 1 g t.i.d. p.r.n. and some xdiu-fpu-yeogyst Aspercreme since Voltaren gel did not appear to be covered by her insurance. 4: We will have her check back with us in 1 year, sooner if episodes of pseudogout become problematic or not managed with prednisone. Thanks for referring this nice lady. 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
--- OUTSIDE RECORDS SUMMARY | 2022-08-03 17:21 | XMS_ITS | Encounter Summary ---
:1945 Author Organization [facility] Address [address] [place] [address] Care Team Providers Name Role Phone Feliciano Uribe MD Primary Care Provider Encounter Details Date Type Department Care Team Description 04/08/2019 Notes/Orders [place] [address] [address] [place] [address] [place] [address] [phone] (Wo rk) Social History Tobacco Use Types [...] on filedocumented in this encounter Care Teams Principal Ios Developer Relationship Specialty Start Date End Date Feliciano Uribe MD PCP - General 02/17/191999 [place] [address] documented as of this encounter
== END 2022-07-22 11:43 | disposition home or self-care (01) ==
LOC: AMB 08-03 17:18
PROVIDERS: PCP Family Medicine; Visit Provider Family Medicine
DX: K92.2 Gastrointestinal hemorrhage, unspecified (principal)
CPT/HCPCS: A0425; A0427

== ENCOUNTER 2022-11-22 07:30 | Outpatient (CLI) | payer MEDICARE, BC, SELFPAY | END 2022-11-22 07:31 | disposition home or self-care (01) | LOC: NFLDREF 11-23 03:48 | PROVIDERS: PCP Family Medicine; Referring Provider Family Medicine; Visit Provider Family Medicine | DX: Z00.00 Encounter for general adult medical examination without abnormal findings (principal); E03.9 Hypothyroidism, unspecified; E78.5 Hyperlipidemia, unspecified; I10 Essential (primary) hypertension; M81.0 Age-related osteoporosis without current pathological fracture; F32.A Depression, unspecified | CPT/HCPCS: 80053; 80061; 84439; 84443 ==

== ENCOUNTER 2022-12-21 12:26 | Outpatient (CLI) | payer MEDICARE, BC, SELFPAY ==
--- NOTE | 2022-12-21 13:00 | CRLHL7_ITS ---
For Patients: As a result of the Century Cures Act, medical imaging exams and procedure reports are released immediately into your electronic medical record. You may view this report before your referring provider. If you have questions, please contact your health care provider. DXA BONE MINERAL DENSITY STUDY Current height (in): 60.0. Weight (lb): 132.0. Menopause age: 31. Ethnicity: White. Reason for exam: Osteoporosis. 1. Have you had a previous hip or vertebral fracture? No. 2. Have you had any fractures during your adult life which did not result from significant trauma (e.g., auto accident)? No. 3. Did either of your parents have a hip fracture? No. 4. Do you smoke? No. 5. Have you ever taken Glucocorticoids? No. 6. Do you have rheumatoid arthritis? No. 7. Do you have secondary osteoporosis? Yes. 8. Do you drink 3 or more alcoholic drinks per day? No. 9. Are you being treated for osteoporosis? Yes. 10. Have you ever taken any of the following medications: Actonel, Evista, Fosamax, Miacalcin, Reclast, Boniva, Forteo, HRT (i.e. estrogen/hormone therapy), Protelos, Prolia, Vitamin D, Calcium, other ??? please specify. ANSWER: Yes, Reclast, vitamin D, calcium. 11. Do you have any of the following medical conditions: Anorexia or bulimia, asthma or emphysema, end stage renal disease, hyperparathyroidism, any seizure disorders, cancer, inflammatory bowel diseases, hysterectomy, other ??? please specify. ANSWER: Yes, hyperparathyroidism, hysterectomy. 12. What was your maximum height (inches)? 62. 13. Do you perform weight bearing exercise regularly? No. 14. Do you regularly consume dairy products? Yes. 15. Do you drink caffeinated beverages? Yes. 16. At what age did your period start? 11. 17. Are you premenopausal? No. 18. How many full term pregnancies have you had? 1. 19. Have you ever missed your period for more than 6 months in a row (not including or menopause)? No. TECHNIQUE: Bone mineral density study was performed using the [employer]. FINDINGS: The results of the study expressed as bone mineral density (BMD) are as follows: Lumbar spine L1 to L3: BMD: 0.956 g/cm2. T-score: -0.6. Z-score: 1.9. Neck Left: BMD: 0.572 g/cm2. T-score: -2.5. Z-score: -0.3. Right: BMD: 0.599 g/cm2. T-score: -2.3. Z-score: -0.1. Total Left: BMD: 0.655 g/cm2. T-score: -2.3. Z-score: -0.5. Right: BMD: 0.681 g/cm2. T-score: -2.1. Z-score: -0.3. IMPRESSION: Osteoporosis. *Comparison exams done prior to 01/2020 were performed on different unit, [facility]. COMPARISON: Compared with scan of 10/13/2020, the bone mineral density has decreased by 3.2 percent at the spine and decreased by 0.8 percent at the hip. Jah Alvarez M.D. Diagnostic Radiologist [email or web address] Transcribed: 8:12 a.m. DW/Dictated by: Jah Alvarez MD @ 12/24/2022 8:01:00 PM (Electronically Signed)
== END 2022-12-21 12:27 | disposition home or self-care (01) ==
LOC: RAD 12:28
PROVIDERS: PCP Family Medicine; Visit Provider Family Medicine
DX: M81.0 Age-related osteoporosis without current pathological fracture (principal)
CPT/HCPCS: 77080

== ENCOUNTER 2022-12-22 08:02 | Outpatient (RCR) | payer MEDICARE, BC, SELFPAY ==
--- NOTE | 2022-11-29 12:05 | URNOTE ---
Request received for authorization forVan ([id number]). Prior authorization is not required as services are based on medical necessity and follow Medicare guidelines.
[2022-12-22 08:15] VITALS: BP 183/83; PULSE 60; RESP 16; TEMP 36.5; O2SAT 98
== END 2023-06-20 23:59 | disposition home or self-care (01) ==
LOC: CCIC 08:02
PROVIDERS: PCP Family Medicine; Referring Provider Family Medicine; Visit Provider Family Medicine
DX: M81.0 Age-related osteoporosis without current pathological fracture (principal)
CPT/HCPCS: 96374; J3489

== ENCOUNTER 2022-12-27 07:28 | Emergency (ER) | payer MEDICARE, BC, SELFPAY ==
[2022-12-27 07:33] VITALS: BP 189/90; PULSE 85; RESP 20; TEMP 36.8; O2SAT 98; BMI 23.8
--- NOTE | 2022-12-27 07:58 | CRLHL7_ITS ---
For Patients: As a result of the Century Cures Act, medical imaging exams and procedure reports are released immediately into your electronic medical record. You may view this report before your referring provider. If you have questions, please contact your health care provider. INDICATION: Neck pain. TECHNIQUE: CT cervical spine without contrast. COMPARISON: None. FINDINGS: Vertebrae: Alignment is normal. There are no fractures or suspicious bony lesions. Discs and facet joints: There are diffuse degenerative changes in the disc spaces and facet joints. Extraspinal findings: Paraspinous soft tissues are unremarkable. IMPRESSION: 1. No acute findings. 2. Severe degenerative disc spondylosis at C5-6 and C6-7. Multilevel facet joint spondylosis also present. Please note that all CT scans at this facility use dose modulation, iterative reconstruction, and/or weight-based dosing when appropriate to reduce radiation dose to as low as reasonably achievable. Dictated by Neftali Palacios MD @ 12/27/2022 9:00:21 AM (Electronically Signed)
--- NOTE | 2022-12-27 07:59 | ED_ITS ---
HPI - General Adult General Chief complaint: Neck Injury/Pain Stated complaint: Neck pain Time Seen by Provider: 12/27/22 07:49 History of Present Illness HPI narrative: Patient is a pleasant 77 year white female has had intermittent neck problems, she has had some degenerative changes by history. She describes over the last few days having increasing pain along cervical strap muscles bilaterally it has been tight in the base of her head. No falls, no injuries, no radicular symptom s other than she gets occasional pain in her shoulders bilaterally. She thinks that is from her stiff neck. She has not had any history of spinal stenosis or cervical trauma. Her past medical history is reviewed from her chart. She is on medications for hypertension hypothyroidism. Related Data Home Medications Medication Instructions Recorded Confirmed calcium carbonate 500 mg calcium 500 mg PO QDAY 06/26/22 11/28/22 (1,250 mg) tablet (Oyster Shell Calcium) cyanocobalamin (vitamin B-12) 1,000 mcg IM ONCE 06/26/22 11/28/22 1,000 mcg/mL injection solution levothyroxine 175 mcg tablet 175 mcg PO DAILY 06/26/22 11/28/22 multivitamin 1 tab PO QAM 06/26/22 11/28/22 naproxen 250 mg tablet 250 mg PO QAM PRN 06/26/22 11/28/22 amoxicillin 500 mg capsule 1,000 mg PO BID 11/28/22 11/28/22 cholecalciferol (vitamin D3) 1,250 50,000 unit PO 2XW 11/28/22 mcg (50,000 unit) tablet pantoprazole 40 mg tablet,delayed 40 mg PO 11/28/22 11/28/22 release Previous Rx's Medication Instructions Recorded atorvastatin 10 mg tablet 10 mg PO .Bedtime #90 tabs 11/28/22 fluoxetine 40 mg capsule 40 mg PO DAILY #90 caps 11/28/22 levothyroxine 150 mcg tablet 150 mcg PO QDAY #90 tabs 11/28/22 lisinopril 10 mg tablet 10 mg PO DAILY #90 tabs 11/28/22 metoprolol succinate 50 mg 50 mg PO QDAY #90 tabs 11/28/22 tablet,extended release 24 hr nitroglycerin 0.4 mg sublingual 0.4 mg sublingual ONCE PRN chest 11/28/22 tablet pain #25 tabs hydrocodone 5 mg-acetaminophen 325 1 tab PO Q8H PRN pain #7 tabs 12/27/22 mg tablet methylprednisolone 4 mg tablets in See Rx Instructions PO .COMPLEX 12/27/22 a dose pack (Medrol (Dominguez)) #21 ea Allergies Allergy/AdvReac Type Severity Reaction Status Date / Time No Known Allergies Allergy Verified 11/28/22 07:33 Review of Systems Status of ROS: Reports: 6 or more systems reviewed and unremarkable except as noted in History and below PFSH [facility] Medical History Vitamin D deficiency ?E55.9 - Vitamin D deficiency, unspecified (ICD-10) Restless legs syndrome ?G25.81 - Restless legs syndrome (ICD-10) Osteoporosis ?M81.0 - Age-related osteoporosis without current pathological fracture (ICD- 10) Osteopenia (05/13/09) ?M85.80 - Other specified disorders of bone density and structure, unspecified site (ICD-10) Obstructive sleep apnea syndrome ?G47.33 - Obstructive sleep apnea (adult) (pediatric) (ICD-10) Muscle spasms of neck ?M62.838 - Other muscle spasm (ICD-10) Hypothyroidism (05/06/09) ?E03.9 - Hypothyroidism, unspecified (ICD-10) Hypertension (05/06/09) ?I10 - Essential (primary) hypertension (ICD-10) Hyperlipidemia (05/06/09) ?E78.5 - Hyperlipidemia, unspecified (ICD-10) History of tear of meniscus of knee joint (05/02/12) ?Z87.828 - Personal history of other (healed) physical injury and trauma (ICD-10) Hiatal hernia (05/06/09) ?K44.9 - Diaphragmatic hernia without obstruction or gangrene (ICD-10) Graves' disease (05/06/09) ?E05.00 - Thyrotoxicosis with diffuse goiter without thyrotoxic crisis or storm (ICD-10) Gastroesophageal reflux disease (05/06/09) ?K21.9 - Gastro-esophageal reflux disease without esophagitis (ICD-10) Depression (05/06/09) ?F32.A - Depression, unspecified (ICD-10) Cerebrovascular accident (CVA) (05/02/12) ?I63.9 - Cerebral infarction, unspecified (ICD-10) Calculus of kidney (05/06/09) ?N20.0 - Calculus of kidney (ICD-10) Surgical History Status post gastric bypass for obesity ?Z98.84 - Bariatric surgery status (ICD-10) History of hysterectomy (05/02/12) ?Z90.710 - Acquired absence of both cervix and uterus (ICD-10) History of cystoscopy (05/02/12) ?Z98.890 - Other specified postprocedural states (ICD-10) Social History Smoking Status: Never smoker Do you use any of these nicotine containing products: None Second hand tobacco smoke exposure: No How often do you have a drink containing alcohol: 2-3 times a week Alcohol type: wine How many standard drinks containing alcohol do you have on a typical day: 1 or 2 How often do you have six or more drinks on one occasion: Never AUDIT-C Alcohol total score: 3 Non-prescribed substance use: denies use Caffeine: Yes (DAILY 3) Little interest or pleasure in doing things: not at all Feeling down, depressed, or hopeless: not at all Are you using contraception or practicing any form of control: No service: No Exam Narrative: Exam Narrative: Objective: Patient's vital signs show slightly elevated elevated blood pressure Neck shows some limited range of motion secondary to discomfort, no midline tenderness, mild cervical strap muscle tenderness bilaterally Neurologic in upper lower extremities unremarkable normal strength sensation. No redness or warmth of the neck region Const: Vital Signs, click to edit/add: Vital Signs - 24 hr 12/27/22 07:33 12/27/22 09:39 Temperature 98.3 F Pulse Rate [Pulse Oximeter] 85 74 Respiratory Rate 20 16 Blood Pressure [Ri ght Upper Arm] 189/90 H 136/74 Pulse Oximetry 98 99 Oxygen Delivery Me thod Room Air Room Air Course Vital Signs Vital signs: Initial Vital Signs Temperature 98.3 F 12/27/22 07:33 Temperature Source Temporal Artery Scan 12/27/22 07:33 Pulse Rate 85 12/27/22 07:33 Pulse Rhythm Regular 12/27/22 07:33 Respiratory Rate 20 12/27/22 07:33 Blood Pressure 189/90 H 12/27/22 07:33 Blood Pressure Mean 123 H 12/27/22 07:33 Blood Pressure Position Supine 12/27/22 07:33 Pulse Oximetry 98 12/27/22 07:33 Oxygen Delivery Method Room Air 12/27/22 07:33 Vital Signs Temperature 98.3 F 12/27/22 07:33 Pulse Rate 85 12/27/22 07:33 Respiratory Rate 20 12/27/22 07:33 Blood Pressure 189/90 H 12/27/22 07:33 Pulse Oximetry 98 12/27/22 07:33 Oxygen Delivery Method Room Air 12/27/22 07:33 Temperature 98.3 F 12/27/22 07:33 Pulse Rate 74 12/27/22 09:39 Respiratory Rate 16 12/27/22 09:39 Blood Pressure 136/74 12/27/22 09:39 Pulse Oximetry 99 12/27/22 09:39 Oxygen Delivery Method Room Air 12/27/22 09:39 Medical Decision Making [facility] Narrative Medical decision making narrative: Given the patient's age and presentation, I think a CT scan of the neck to rule out facet abnormality, spinal stenosis would be appropriate. Will do this w ithout contrast. Will also give 5 mg IM morphine. Her is here to drive her home. If her CT looks reassuring, I think some pain medications such as Medrol would be helpful, may also prescribe a couple of doses of [place]. Addendum: Patient's CT scan of the neck looks like degenerative change, no acute fracture or dislocation or facet jumping. Would recommend the medicine as above observation ice to the neck return to primary care in 2-3 days may consider some physical therapy if not improving. Discharge Plan Discharge Clinical Impression: Cervical spine pain Patient Disposition: Home w/ Parent or Adult Condition: Stable Additional Instructions: Light activity, ice to the neck, pain medication as needed only sparingly. Cautioned about sedation with the pain medicine. May use Tylenol as well. Recheck with regular doctor in 2-3 days. Activity Level: Light activity Discharge Diet: Regular Prescriptions: New methylprednisolone [Medrol (Dominguez)] 4 mg tablets,dose pack See Rx Instructions .ROUTE .COMPLEX Qty: 21 0RF Rx Instructions: orally per package directions hydrocodone-acetaminophen 5-325 mg tablet 1 tab PO Q8H PRN (Reason: pain) Qty: 7 0RF No Action multivitamin Tablet 1 tab PO QAM levothyroxine 175 mcg tablet 175 mcg PO DAILY naproxen 250 mg tablet 250 mg PO QAM PRN Hold Instructions: Doctor's Order calcium carbonate [Oyster Shell Calcium] 500 mg calcium (1,250 mg) tablet 500 mg PO QDAY cyanocobalamin (vitamin B-12) 1,000 mcg/mL solution 1,000 mcg IM ONCE pantoprazole 40 mg tablet,delayed release (DR/EC) 40 mg PO cholecalciferol (vitamin D3) 1,250 mcg (50,000 unit) tablet 50,000 unit PO 2XW amoxicillin 500 mg capsule 1,000 mg PO BID Rx Instructions: for dental work atorvastatin 10 mg tablet 10 mg PO .Bedtime Qty: 90 3RF fluoxetine 40 mg capsule 40 mg PO DAILY Qty: 90 3RF levothyroxine 150 mcg tablet 150 mcg PO QDAY Qty: 90 0RF lisinopril 10 mg tablet 10 mg PO DAILY Qty: 90 3RF metoprolol succinate 50 mg tablet extended release 24 hr 50 mg PO QDAY Qty: 90 3RF nitroglycerin 0.4 mg tablet, sublingual 0.4 mg sublingual ONCE PRN (Reason: chest pain) Qty: 25 0RF Rx Instructions: PRN CHEST PAIN, take every 5 min x 3 doses max Follow Up/Referrals: Feliciano Uribe MD [Primary Care Provider] - [facility]
[2022-12-27] MEDS: MORPHINE 10 MG/ML inj 5 MG IM (08:04)
--- NOTE | 2022-12-27 09:00 | ED.NURSE ---
Notified Dr. Jorge that patient was feeling nauseous and sweating. Per MD, give it a little more time to see if it passes. Likely due to the morphine.
[2022-12-27] MEDS: ONDANSETRON ODT 4 MG TAB PO ×2 (09:21→09:57)
--- NOTE | 2022-12-27 09:21 | ED.NURSE ---
Patient continues to have nausea. Zofran 4mg ODT given. Will continue to reassess.
[2022-12-27 09:39] VITALS: BP 136/74; PULSE 74; RESP 16; O2SAT 99
== END 2022-12-27 09:58 | disposition home or self-care (01) ==
LOC: ED 08:05
PROVIDERS: Emergency Provider Family Medicine; PCP Family Medicine
DX: S16.1XXA Strain of muscle, fascia and tendon at neck level, initial encounter (principal)
CPT/HCPCS: 72125; 96372; 99284; A9270; J2270

== ENCOUNTER 2023-03-05 09:05 | Outpatient (CLI) | payer MEDICARE, BC, SELFPAY | END 2023-03-05 09:06 | disposition home or self-care (01) | PROVIDERS: PCP Family Medicine; Visit Provider Family Medicine | DX: E03.9 Hypothyroidism, unspecified (principal); E78.5 Hyperlipidemia, unspecified; I10 Essential (primary) hypertension; E05.00 Thyrotoxicosis with diffuse goiter without thyrotoxic crisis or storm; E55.9 Vitamin D deficiency, unspecified; E53.8 Deficiency of other specified B group vitamins | CPT/HCPCS: 82306; 82652; 84443 ==

== ENCOUNTER 2023-10-15 07:09 | Outpatient (CLI) | payer MEDICARE, BC, SELFPAY ==
--- OUTSIDE RECORDS SUMMARY | 2023-10-15 07:11 | XMS_ITS | Clinical Summary ---
Author Name Unknown Organization [facility] Address [address] [place] [address] Care Team Providers Care Supervisor [employer] Manufacturing Name Role Phone Unavailable Primary Care Provider Unavailabl e Source Comments Patient records contain information from all sites at [facility]. For routine questions regarding patient records, call [phone] during business hours, M-F 8:00 AM - 5:00 PM Central Time. Record requests for emergency care only can be directed to [phone] at any time.[facility] Allergies No known active allergies Medications Medication Sig Dispensed Refills Start Date End Date Status nitroglycerin (NITROSTAT) 0.[address] 1 tablet under the tongue daily as needed. Place 1 tab under tongue at first sign of angina. Repeat in 5 min until relief. Max 3 tab/15 min. 02/05/13-has only needed to take this once in past 2 weeks. One tab relieved sx. 0 05/21/2013 Active atorvastatin (LIPITOR) 10 mg tablet daily. 0 07/02/2018 Active calcium carbonate (OS-CALDERON) 1,250 mg (500 mg calcium) tablet Take 500 mg of calcium by mouth 2 (two) times a day. Oyster shell calcium 0 03/27/2019 Active predniSONE (DELTASONE) 20 mg tablet as needed. For gout when needed 0 04/07/2019 Active FLUoxetine (PROzac) 40 mg capsule Take 40 mg by mouth daily. 0 03/27/2019 Active lisinopriL (PRINIVIL,ZESTRIL) 10 mg tablet Take 1 tablet by mouth daily. 0 06/10/2020 Active levothyroxine (SYNTHROID, LEVOTHROID) 175 mcg tablet Take 1 tablet by mouth daily. 0 06/10/2020 Active multivitamin (THERAGRAN) tablet Take 1 tablet by mouth 2 (two) times a day. 0 07/12/2020 Active metoprolol succinate (TOPROL-XL) 50 mg 24 hr tablet Take 50 mg by mouth daily. 0 09/09/2022 Active cholecalciferol (VITAMIN D3) 1,250 mcg (50,000 Unit) capsule Take 50,000 Units by mouth once a week. 0 06/26/2022 Active cyanocobalamin, vitamin B-12, (B-12 KIT INJ) Inject 1,000 mcg as directed every 30 (thirty) days. Through primary care clinic 0 Active cholecalciferol (VITAMIN D3) 1,250 mcg (50,000 Unit) capsuleIndications :Bypass Gastric Suellen En Y Status Post Take 1 capsule (50,000 Units total) by mouth 2 (two) times a week. If refills required, please reach out to primary care provider 24 capsule 3 10/23/2022 Active omeprazole (PriLOSEC) [address] capsule Take 1 capsule (40 mg total) by mouth 2 (two) times a day before breakfast and dinner. Open capsule onto a bite of applesauce 180 capsule 0 11/01/2022 Active Active Problems Problem Noted Date Diagnosed Date Bypass Gastric Suellen En Y Status Post 07/12/2020 Family History Coronary Artery Disease 7 Elevated Liver Enzyme Abnorm al, Aspartate Transaminase, Serum Glutamic-Oxaloacetic Transaminase, Alanine Transaminase 03/24/2015 Hyperlipidemia 03/14/2010 Hypertension Essential Primary 03/14/2010 Immunizations Name Administration Dates Next Due Influenza, Unspecified 05/05/2011 PPSV23(Discontinued) 11/28/2013,08/27/2007 Family History Medical History Relation Name Comments Coronary artery disease Father rosa isela haile Hypertension Father rosa isela haile Transient ischemic attack Mother Winifred Haile Relation Name Status Comments Father rosa isela haile Mother Winifred Haile Social History Tobacco Use Types Packs/Day Years Used Date Smoking Tobacco: Never Smokeless Tobacco: Never Tobacco Cessation:Counseling Given: Not Answered Alcohol Use Standard Drinks/Week Comments Not Currently 0 (1 standard drink = 0.6 oz pur e alcohol) Occ. social drink Humiliation, Afraid, Rape, and Kick questionnair e Answer Date Recorded Within the last year, have y ou been afraid of your partner or ex-partner? No 10/10/2022 Within the last year, have y ou been humiliated or emotionally abused in other ways by your partner or ex-partner? No Within the last year, have y ou been kicked, hit, slapped, or otherwise physically hurt by your partner or ex-partner? No 10/10/2022 Within the last year, have y ou been raped or forced to have any kind of sexual activity by your partner or ex-partner? No 10/10/2022 Social Connection and Isolat ion Panel [NHANES] Answer Date Recorded In a typical week, how many times do you talk on the phone with family, friends, or neighbors? Twice a week 10/10/2022 How often do you get togethe r with friends or relatives? Twice a week 10/10/2022 How often do you attend chur ch or catholic services? More than 4 times per year 10/10/2022 Do you belong to any clubs o r organizations such as yazidism groups, unions, fraternal or athletic groups, or school groups? Yes 10/10/2022 How often do you attend meet ings of the clubs or organizations you belong to? 1 to 4 times per year 10/10/2022 Are you , , di vorced, , never , or living with a partner? 10/10/2022 AUDIT-C Answer Date Recorded Q1: How often do you have a drink containing alcohol? Monthly or less 10/10/2022 Q2: How many drinks containi ng alcohol do you have on a typical day when you are drinking? Patient does not drink Q3: How often do you have si x or more drinks on one occasion? Never 10/10/2022 Overall Financial Resource Strain (CARDIA) Answe r Date Recorded How hard is it for you to pa y for the very basics like food, housing, medical care, and heating? Not hard at all 10/10/2022 [facility] - Occupational Stress Questionnaire Answer Date Recorded Do you feel stress - tense, restless, nervous, or anxious, or unable to sleep at night because your mind is troubled all the time - these days? Only a little 10/10/2022 Exercise Vital Sign Answer Date Recorde d On average, how many days pe r week do you engage in moderate to strenuous exercise (like a brisk walk)? 2 days 10/10/2022 On average, how many minutes do you engage in exercise at this level? 40 min 10/10/2022 Hunger Vital Sign Answer Date Recorded Within the past 12 months, y ou worried that your food would run out before you got the money to buy more. Never true 10/10/19 Within the past 12 months, t he food you bought just didn't last and you didn't have money to get more. Never true 10/10/2022 PRAPARE - Transportation Answer Date Re corded In the past 12 months, has l ack of transportation kept you from medical appointments or from getting medications? No 09/27 In the past 12 months, has l ack of transportation kept you from meetings, work, or from getting things needed for daily living? No 10/10/2022 Housing Stability Vital Sign Answer Ramin e Recorded In the last 12 months, was t here a time when you were not able to pay the mortgage or rent on time? No 10/10/2022 In the last 12 months, how many places have you lived? 1 10/10/2022 In the last 12 months, was t here a time when you did not have a steady place to sleep or slept in a fdc (including now)? No 10/10/2022 Nutrition Answer Date Recorded Nutrition: EVOO Fat Source No 10/10 On average, how many serving s of fruits and vegetables do you eat per day (serving size is equal to 1 cup or approximately the size of a tennis ball)? 2-3 10/10/2022 Dental Answer Date Recorded Dental: Regular Dentist Yes 10/10/19 Employment Answer Date Recorded Employment status Retired 10/10/2022 Education Answer Date Recorded What is the highest level of school you have completed or the highest degree you have received? Associate degree: occupational, technical, or vocational program 10/10/2022 Sex and Gender Information Value Date Recorded Sex Assigned at Female 10/10/2022 4:07 PM [employer] Gender Identity Female 07/16/2018 12:55 PM [employer] Sexual Orientation Straight 07/16/2018 12 :55 PM [employer] Last Filed Vital Signs Vital Sign Reading Time Taken Comments Blood Pressure 163/73 10/31/2022 12:17 PM [employer] Pulse 75 10/31/2022 12:17 PM [employer] Temperature 36.5 ??C (97.7 ??F) 10/31/2022 1 2:27 PM [employer] Respiratory Rate 20 10/31/2022 12:1 7 PM [employer] Oxygen Saturation 96% 10/31/2022 12: 17 PM [employer] Inhaled Oxygen Concentration - - Weight 55.2 kg (121 lb 11.1 oz) 11/01/2022 9:18 AM [employer] Height 152 cm (4' 11.84) 11/01/2022 9:18 AM [employer] Body Mass Index 23.89 11/01/2022 9:18 AM [employer] Plan of Treatment Health Maintenance Due Date Last Done Comments Hepatitis C Screening 1945 Hepatitis A Vaccines (1 of 2 - Risk 2-dose series) 1965 Zoster Vaccines (1 of 2) 1996 Hepatitis B Vaccines (1 of 3 - Risk 3-dose series) 2006 Office Visit for Blood Press ure Check / Re-check 01/14/2023 10/17/2022 COVID-19 Vaccine (4 - 2022-2 4 season) 2023 05/14/2022, 11/12/2020, 10/15/2020 Thyroid Stimulating Hormone (TSH) test for thyroid function 07/26/2023 07/26/2022, 06/23/2019, 09/24/2018, Additional history exists Depression Screening (Annual PHQ-2) 08/27/2023 Fall Risk Screen (Annual) 08/27/2023 Creatinine Level (Kidney Fun ction Test) 10/17/2023 10/17/2022, 07/27/2022, 07/26/2022, Additional history exists Potassium Level 10/17/2023 10/17/2022, 1208/2021, 07/26/2022, Additional history exists Sodium Level 10/17/2023 10/17/2022, 06/29, 07/23/2022, Additional history exists DTaP,Tdap,and Td Vaccines (5 - Td or Tdap) 11/22/2031 11/21/2021, 05/02/2012, 03/10/2005, Additional history exists Colonoscopy Discontinued 08/27/2003 (Perf ormed elsewhere) Colorectal Cancer Screening Discontinued Mammogram Discontinued 05/27/2012 (Perf ormed elsewhere), 04/29/2012 (Performed elsewhere) Pneumococcal vaccine (65+ years) Completed 01/12/2015, 11/28/2013, 08/27/2007 Influenza Vaccine Completed 06/19/2023, , 06/21/2020, Additional history exists CT Colonography Discontinued Cologuard Discontinued FIT Discontinued Medical Devices Implanted Type Area Customer Operations Associate Device Identifier Shelf Expiration Date Model / Serial / Lot Knee Implant- [id number] Implanted:01/2022 (Quantity not on file) Knee Implant Right: Knee Ocular Lens Ocular Lens Bilatera l: Eye
--- OUTSIDE RECORDS SUMMARY | 2023-10-15 07:12 | XMS_ITS | Encounter Summary ---
Author Name Unknown Organization [facility] Address [address] [place] [id number] Care Team Providers Care Spool Fixer Name Role Phone Unavailable Primary Care Provider Unavailabl e Reason for Referral * Outpatient (Routine) - Closed Specialty Diagnoses / Procedures Referred By Amena prasad Referred To Contact Diagnoses Nausea And Vomiting Procedures [place] Upper GI Single Contrast Without KUB Merlyn Benedict M.B.B.S., M.D. [address] [place] [phone] [facility] Referral ID Status Reason Start Date Expiration Date Visits Re quested Visits Authorized [id number] Closed 10/17/2022 10/17/2023 1 1 E BUSINESS PROJECT MANAGER Reason for Visit * Outpatient (Routine) - Closed Specialty Diagnoses / Procedures Referred By Amena prasad Referred To Contact Diagnoses Nausea And Vomiting Procedures FL Upper GI Single Contrast Without KUB Merlyn Benedict M.B.B.S., M.D. [address] [place] [phone] [facility] Referral ID Status Reason Start Date Expiration Date Visits Re quested Visits Authorized [id number] Closed 10/17/2022 10/17/2023 1 1 Encounter Details Date Type Department Care Team (Latest Contact Info) Description 10/24/2022 12:46 PM E BUSINESS PROJECT MANAGER - 10/24/2022 11:59 PM E BUSINESS PROJECT MANAGER Hospital Encounter Department of Radiology, [facility], in [place], [place] [address] [place] [phone] Merlyn Benedict M.B.B.S., M.D. [address] [place] [phone] Nausea And Vomiting Discharge Disposition: Home or Self Care Social History Tobacco Use Types Packs/Day Years Used Date Smoking Tobacco: Never Smokeless Tobacco: Never Alcohol Use Standard Drinks/Week Comments Yes 0 (1 standard drink = 0.6 oz pur e alcohol) Humiliation, Afraid, Rape, and Kick questionnair e [...] 10/10/2022 How often do you attend chur or mandaeism services? More than 4 times per year 10/10/2022 Do you belong to any clubs o r organizations such as buddhist groups, unions, fraternal or athletic groups, or [...] you are drinking? Patient does not drink 3 Q3: How often do you have si x or more drinks on one occasion? Never 10/10/2022 Overall Financial Resource Strain (CARDIA) Answe r Date Recorded How hard is it for you to pa y for the very basics like food, housing, medical care, and heating? Not hard at all 10/10/2022 [facility] - Occupational Stress [...] money to buy more. Never true 10/10/19 23 Within the past 12 months, t he [...] place to sleep or slept in a custodial (including now)? No 10/10/2022 Nutrition Answer Date [...] Sex Assigned at Female 10/10/2022 4:07 PM E BUSINESS PROJECT MANAGER Gender Identity Female 07/16/2018 12:55 PM E BUSINESS PROJECT MANAGER Sexual Orientation Straight 07/16/2018 12 :55 PM E BUSINESS PROJECT MANAGER documented as of this encounter Medications at Time of Discharge Medication Sig Dispensed Refills Start Date End Date atorvastatin (LIPITOR) 10 mg tablet daily. 0 07/02/2018 calcium carbonate (OS-CALDERON) 1,250 mg (500 mg calcium) tablet Take 500 mg of calcium by mouth 2 (two) times a day. Oyster shell calcium 0 03/27/2019 cholecalciferol (VITAMIN D3) 1,250 mcg (50,000 Unit) capsule Take 50,000 Units by mouth once a week. 0 06/26/2022 cholecalciferol (VITAMIN D3) 1,250 mcg (50,000 Unit) capsuleIndications:Byp ass Gastric Suellen En Y Status Post Take 1 capsule (50,000 Units total) by mouth 2 (two) times a week. If refills required, please reach out to primary care provider 24 capsule 3 10/23/2022 cyanocobalamin, vitamin B-12, (B-12 KIT INJ) Inject 1,000 mcg as directed every 30 (thirty) days. Through primary care clinic 0 FLUoxetine (PROzac) 40 mg capsule Take 40 mg by mouth daily. 0 03/27/2019 levothyroxine (SYNTHROID, LEVOTHROID) 175 mcg tablet Take 1 tablet by mouth daily. 0 06/10/2020 lisinopriL (PRINIVIL,ZESTRIL) 10 mg tablet Take 1 tablet by mouth daily. 0 06/10/2020 metoprolol succinate (TOPROL-XL) 50 mg 24 hr tablet Take 50 mg by mouth daily. 0 09/09/2022 multivitamin (THERAGRAN) tablet Take 1 tablet by mouth 2 (two) times a day. 0 07/12/2020 nitroglycerin (NITROSTAT) 0.[address] 1 tablet under the tongue daily as needed. Place 1 tab under tongue at first sign of angina. Repeat in 5 min until relief. Max 3 tab/15 min. 02/05/13-has only needed to take this once in past 2 weeks. One tab relieved sx. 0 05/21/2013 predniSONE (DELTASONE) 20 mg tablet as needed. For gout when needed 0 04/07/2019 pantoprazole (PROTONIX) 40 mg EC tabletIndications:Bypa ss Gastric Suellen En Y Status Post Take 1 tablet (40 mg total) by mouth every morning before breakfast. 90 tablet 0 10/17/2022 11/01/2022 documented as of this encounter Plan of Treatment Not on file documented as of this encounter Procedures Procedure Name Priority Date/Time Associated Diagnosis Comments FL UPPER GI SINGLE CONTRAST WITHOUT KUB RAD - Routine (most inpatients and all outpatients) 10/24/2022 1:55 PM E BUSINESS PROJECT MANAGER Nausea And Vomiting documented in this encounter Results * FL Upper GI Single Contrast Without KUB (10/24/2022 1:55 PM E BUSINESS PROJECT MANAGER) Anatomical Region Laterality Modality Gastro Intestinal, Abdominal RST LOS, Abdominal ARZ LOS, Abdominal FLA LOS Digital Radiography 10/24/2022 1:59 PM E BUSINESS PROJECT MANAGER Impressions 10/24/2022 2:39 PM E BUSINESS PROJECT MANAGER 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 Narrative 10/24/2022 2:39 PM E BUSINESS PROJECT MANAGER EXAM: ??FL UPPER GI SINGLE CONTRAST WITHOUT KUB COMPARISON: ??Outside CT abdomen and pelvis from 07/25/2022, fluoroscopic upper gastrointestinal examination from 10/07/2013 FINDINGS: ??Fluoroscopic single contrast upper gastrointestinal study was performed. 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 There is a stricture measuring 1.1 cm in length with maximum diameter of 0.4 cm (series 3) at the gastrojejunal anastomosis. Contrast flows readily through this stricture. No perianastomotic marginal ulcer. No reflux into the pancreaticobiliary limb. Normal esophageal motility. Procedure Note Juanito Rojas M.D. - 10/24/2022 EXAM: FL UPPER GI SINGLE CONTRAST WITHOUT KUB COMPARISON: Outside CT abdomen and pelvis from 07/25/2022, fluoroscopicupper gastrointestinal examination from 10/07/2013 FINDINGS: Fluoroscopic single contrast upper gastrointestinal study wasperformed. 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 There is a stricture measuring 1.1cm in length with maximum diameter of 0.4 cm (series 3) at the gastrojejunal anastomosis. Contrastflows readily through this stricture. No perianastomotic marginal ulcer. No reflux into thepancreaticobiliary limb. Normal esophageal motility. 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 Gastrojejunalanastomotic stricture measuring 1.1 cm in length with maximum diameter of 0.4 cm. Merlyn Cobos M.D. IMG FLU OROSCOPY PROCEDURES documented in this encounter Visit Diagnoses Diagnosis Nausea And Vomiting documented in this encounter Administered Medications Inactive Administered Medications - up to 3 most recent administrations Medication Order MAR Action Action Date Dose Rate Site barium 60 % (w/v) suspension (LIQUID E-Z-PAQUE) oral, Code/trauma/sedation medication, Starting on Sun10/24/22 at 1358 Given 10/24/2022 1:58 PM E BUSINESS PROJECT MANAGER 100 mL barium 98 % oral powder for suspension (E-Z-HD) oral, Code/trauma/sedation medication, Starting on Sun10/24/22 at 1358 Given 10/24/2022 1:58 PM E BUSINESS PROJECT MANAGER 100 mL documented in this encounter Additional Health Concerns Assessment Noted Time PHQ-9 Depression Total Score: 0 01/16/20 14 9:12 AM CDT documented as of this encounter
--- OUTSIDE RECORDS SUMMARY | 2023-10-15 07:12 | XMS_ITS | Encounter Summary ---
Author Name Unknown Organization [facility] Address [address] [place] [id number] Care Team Providers Care Fermenter Champagne Name Role Phone Unavailable Primary Care Provider Unavailabl e Reason for Visit * Reason Comments Med Refill Encounter Details Date Type Department Care Team (Late st Contact Info) Description 11/03/2022 Refill Division of Endocrine and Metabolic Surgery in [place], [place] [address] [place] [phone] Abida Arboleda APRN, C.N.P., D.N.P. [address] [place] [phone] Med Refill Social History Tobacco Use Types Packs/Day Years [...] often do you attend chur ch or congregation services? More than 4 times per year 10/10/2022 Do you belong to any clubs o r organizations such as temple groups, unions, fraternal or athletic groups, or [...] and heating? Not hard at all 10/10/2022 [facility] - Occupational [...] place to sleep or slept in a prison (including now)? No 10/10/2022 Nutrition Answer Date [...] Sex Assigned at Female 10/10/2022 4:07 PM VARYING EXCEPTIONALITIES TEACHER Gender Identity Female 07/16/2018 12:55 PM VARYING EXCEPTIONALITIES TEACHER Sexual Orientation Straight 07/16/2018 12 :55 PM VARYING EXCEPTIONALITIES TEACHER documented as of this encounter Plan of Treatment Not on file documented as of this encounter Visit Diagnoses Not on filedocumented in this encounter Additional Health Concerns Assessment Noted Time PHQ-9 Depression Total Score: 0 01/16/20 14 9:12 AM CDT documented as of this encounter
--- OUTSIDE RECORDS SUMMARY | 2023-10-15 07:12 | XMS_ITS | Encounter Summary ---
Author Name Unknown Organization [facility] Address [address] [place] [address] Care Team Providers Care Product Marketing Coordinator Name Role Phone Unavailable Primary Care Provider Unavailabl e Reason for Referral * Outpatient (Routine) - Closed Specialty Diagnoses / Procedures Referred By Amena prasad Referred To Contact Diagnoses Bypass Gastric Suellen En Y Status Post Procedures FL Fluoro Less Than 1 Hour Elvira Segura APRN C.N.P., M.S.N. [address] [place] [phone] [facility] Referral ID Status Reason Start Date Expiration Date Visits Re quested Visits Authorized [id number] Closed 10/31/2022 10/31/2023 1 1 ENGER TIRE INSPECTOR Reason for Visit * Outpatient (Routine) - Closed Specialty Diagnoses / Procedures Referred By Amena prasad Referred To Contact Diagnoses Bypass Gastric Suellen En Y Status Post Procedures FL Fluoro Less Than 1 Hour Elvira Segura APRN C.N.P., M.S.N. [address] [place] [phone] [facility] Referral ID Status Reason Start Date Expiration Date Visits Re quested Visits Authorized [id number] Closed 10/31/2022 10/31/2023 1 1 Encounter Details Date Type Department Care Team (Latest Contact Info) Description 10/31/2022 10:29 AM PASSENGER TIRE INSPECTOR - 10/31/2022 11:59 PM PASSENGER TIRE INSPECTOR Hospital Encounter Department of Radiology, [facility], in [place], [place] [address] [place] [phone] Elvira Segura APRN, C.N.P., M.S.N. 200 [place] [phone] Bypass Gastric Suellen En Y Status Post Discharge Disposition: Home or Self Care Social [...] often do you attend chur ch or jain services? More than 4 times per year 10/10/2022 Do you belong to any clubs o r organizations such as confucianism groups, unions, fraternal or athletic groups, or [...] and heating? Not hard at all 10/10/2022 [facility] [place] [facility] - Occupational Stress [...] place to sleep or slept in a senior care (including now)? No 10/10/2022 Nutrition Answer Date [...] Sex Assigned at Female 10/10/2022 4:07 PM PASSENGER TIRE INSPECTOR Gender Identity Female 07/16/2018 12:55 PM PASSENGER TIRE INSPECTOR Sexual Orientation Straight 07/16/2018 12 :55 PM PASSENGER TIRE INSPECTOR documented as of this encounter Medications at [...] Name Priority Date/Time Associated Diagnosis Comments FL FLUORO LESS THAN 1 HOUR RAD - Routine (most inpatients and all outpatients) 10/31/2022 11:41 AM PASSENGER TIRE INSPECTOR Bypass Gastric Suellen En Y Status Post documented in this encounter Results * FL Fluoro Less Than 1 Hour (10/31/2022 11:41 AM PASSENGER TIRE INSPECTOR) Narrative ERCP LOS RST - 10/31/2022 11:45 AM PASSENGER TIRE INSPECTOR This exam does not require a radiologist review or interpretation. Please refer to the patient's medical record on this date for clinical details. Elvira Segura APRN C.N.P., M.S.N. I MG FLUOROSCOPY PROCEDURES ERCP LOS RST documented in this encounter Visit Diagnoses Diagnosis Bypass Gastric Suellen En Y Status Post documented in this encounter Additional Health Concerns Assessment Noted Time PHQ-9 Depression Total Score: 0 01/16/20 14 9:12 AM CDT documented as of this encounter
--- OUTSIDE RECORDS SUMMARY | 2023-10-15 07:12 | XMS_ITS | Encounter Summary ---
Author Name Unknown Organization [facility] Address [address] [place] [id number] Care Team Providers Care Office Manager Receptionist Name Role Phone Unavailable Primary Care Provider Unavailabl e Encounter Details Date Type Department Care Team (Latest Contact Info) Description 10/17/2022 9:49 AM CORNER CUTTER 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 - 10/17/2022 11:59 PM CORNER CUTTER 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 Hospital Encounter Department of Laboratory Medicine and Pathology, [facility] in [place], [place] [address] [place] [address] Merlyn Benedict M.B.B.S., M.D. [address] [place] [address] Bypass Gastric Suellen En Y Status Post; Osteoporosis Discharge Disposition: Home or Self Care Social [...] How often do you attend chur or quaker services? More than 4 times per year 10/10/2022 Do you belong to any clubs o r organizations such as faith groups, unions, fraternal or athletic groups, or [...] and heating? Not hard at all 10/10/2022 [facility] of Occupat ional Health - Occupational Stress [...] the money to buy more. Never true 02/14/20 23 Within the past 12 months, t [...] place to sleep or slept in a long term (including now)? No 10/10/2022 Nutrition Answer Date [...] Sex Assigned at Female 10/10/2022 4:07 PM CORNER CUTTER 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 Gender Identity Female 07/16/2018 12:55 PM CORNER CUTTER 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 Sexual Orientation Straight 07/16/2018 12 :55 PM CORNER CUTTER 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 documented as of this encounter Medications at [...] by mouth once a week. 0 06/26/2022 cyanocobalamin, vitamin B-12, (B-12 KIT INJ) Inject [...] 0 04/07/2019 pantoprazole (PROTONIX) 40 mg EC tabletIndications:Bywalker s Gastric Suellen En Y Status Post Take 1 tablet (40 mg total) by mouth every morning before breakfast. 90 tablet 0 10/17/2022 11/01/2022 documented as of this encounter Plan of Treatment Not on file documented as of this encounter Procedures Procedure Name Priority Date/Time Associated Diagnosis Comments LIPID PANEL, S Routine 10/17/2022 10:01 AM CORNER CUTTER 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 Bypass Gastric Suellen En Y Status Post IRON AND TOT IRON-BINDING CAPACITY, S/P Routine 10/17/2022 10:01 AM CORNER CUTTER 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 Bypass Gastric Suellen En Y Status Post BONE ALKALINE PHOSPHATASE, S Routine 10/17/2022 10:01 AM CORNER CUTTER 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 Bypass Gastric Suellen En Y Status Post Osteoporosis 25-HYDROXYVITAMIN D2 AND D3, S Routine 10/17/2022 10:01 AM CORNER CUTTER 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 Bypass Gastric Suellen En Y Status Post CBC WITH DIFFERENTIAL, B Routine 10/17/2022 10:01 AM CORNER CUTTER 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 Bypass Gastric Suellen En Y Status Post PARATHYROID HORMONE (PTH), S Routine 10/17/2022 10:01 AM CORNER CUTTER 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 Bypass Gastric Suellen En Y Status Post Osteoporosis HEMOGLOBIN A1C, B Routine 10/17/2022 10: 01 AM CORNER CUTTER 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 Bypass Gastric Suellen En Y Status Post FERRITIN, S Routine 10/17/2022 10:01 AM CORNER CUTTER 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 Bypass Gastric Suellen En Y Status Post VITAMIN B12 ASSAY, S Routine 10/17/2022 10:01 AM CORNER CUTTER 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 Bypass Gastric Suellen En Y Status Post COMPREHENSIVE METABOLIC PANEL, S/P Routine 10/17/2022 10:01 AM CORNER CUTTER 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 Bypass Gastric Suellen En Y Status Post documented in this encounter Results * Bone Alkaline Phosphatase (10/17/2022 10:01 AM CORNER CUTTER 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) Pathologist [facility] Bone Alkaline Phosphatase, S 14 mcg/L 10/17/2022 3:48 PM [facility] Comment: ----REFERENCE VALUE---- <=14 (Premenopausal) <=22 (Postmenopausal) ----ADDITIONAL INFORMATION---- Liver-derived alkaline phosphatase (ALP) increases apparent measured bone alkaline phosphatase (BAP) in this assay by 2.5 mcg/L to 5.8 mcg/L for every 100 U/L of liver ALP. ??Accordingly, serum specimens with significant elevations of liver ALP activity may yield artificially elevated results in the BAP assay. Blood (Blood, Venous) 10/17/2022 10:01 AM CORNER CUTTER 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 10/17/2022 2:40 PM [facility] Merlyn Cobos M.D. LAB BLO OD ADD-ON [facility] [address] [place] [address] [facility] [address] [place] [address] * (ABNORMAL) Parathyroid Hormone (PTH) (10/17/2022 10:01 AM CORNER CUTTER 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) [facility] Parathyroid Hormone (PTH), S 86(H) 15 - 65 pg/mL 10/17/2022 12:01 PM CORNER CUTTER 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 DTL Blood (Blood, Venous) 10/17/2022 10:01 AM CORNER CUTTER 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 10/17/2022 10:38 AM CORNER CUTTER 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 Merlyn Cobos M.D. LAB BLO OD ADD-ON [facility] [address] [place] [address], [facility] [address] [place] [address] * (ABNORMAL) CBC with Differential, Blood (10/17/2022 10:01 AM CORNER CUTTER 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) [facility] Hemoglobin 13.5 11.6 - 15.0 g/dL 10/17/2022 10:38 AM CORNER CUTTER 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 DTL Hematocrit 43.8 35.5 - 44.9 % 10/17/2022 10:38 AM CORNER CUTTER 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 DTL Erythrocytes 4.62 3.92 - 5.13 x10(12)/L 10/17/2022 10:38 AM CORNER CUTTER 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 DTL MCV 94.8 78.2 - 97.9 fL 10/17/2022 10:38 AM CORNER CUTTER 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 DTL RBC Distrib Width 13.1 12.2 - 16.1 % 10/17/2022 10:38 AM CORNER CUTTER 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 DTL Platelet Count 216 157 - 371 x10(9)/L 10/17/2022 10:38 AM CORNER CUTTER 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 DTL Leukocytes 5.7 3.4 - 9.6 x10(9)/L 10/17/2022 10:38 AM CORNER CUTTER 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 DTL Neutrophils 4.18 1.56 - 6.45 x10(9)/L 10/17/2022 10:38 AM CORNER CUTTER 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 DTL Lymphocytes 0.84(L) 0.95 - 3.07 x10(9)/L 10/17/2022 10:38 AM CORNER CUTTER 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 DTL Monocytes 0.56 0.26 - 0.81 x10(9)/L 10/17/2022 10:38 AM CORNER CUTTER 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 DTL Eosinophils 0.06 0.03 - 0.48 x10(9)/L 10/17/2022 10:38 AM CORNER CUTTER 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 DTL Basophils 0.05 0.01 - 0.08 x10(9)/L 10/17/2022 10:38 AM CORNER CUTTER 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 DTL Blood (Blood, Venous) 10/17/2022 10:01 AM CORNER CUTTER 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 10/17/2022 10:26 AM CORNER CUTTER 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 Merlyn Cobos M.D. LAB BLO OD ADD-ON [facility] [address] [place] [address], [facility] DTL [facility] [address] [place] [address] * Vitamin B12 Assay (10/17/2022 10:01 AM CORNER CUTTER 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) [facility] Vitamin B12 Assay, S 355 180 - 914 ng/L 10/17/2022 12:10 PM CORNER CUTTER 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 DTL Comment: ----ADDITIONAL INFORMATION---- In patients being evaluated for vitamin B12 deficiency who have intrinsic factor blocking antibodies (IFBA), false elevations of B12 may occur due to IFBA interference thus potentially obscuring a physiological deficiency of B12. If observed B12 concentrations are discordant with clinical presentation, measurement of methylmalonic acid (MMA) should be considered. Blood (Blood, Venous) 10/17/2022 10:01 AM CORNER CUTTER 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 10/17/2022 10:38 AM CORNER CUTTER 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 Merlyn Cobos M.D. LAB BLO OD ADD-ON [facility] [address] [place] [address], [facility] DTL [facility] [address] [place] [address] * Lipid Panel (10/17/2022 10:01 AM CORNER CUTTER 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) Triglycerides 87 mg/dL 10/17/2022 11:08 AM CORNER CUTTER 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 DTL Comment: ----REFERENCE VALUE---- Normal: <150 mg/dL Borderline High: 150-199 mg/dL High: 200-499 mg/dL Very High: > or =500 mg/dL Cholesterol, Total 179 mg/dL 2022 11:08 AM CORNER CUTTER 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 DTL Comment: ----REFERENCE VALUE---- Desirable: < 200 mg/dL Borderline High: 200 - 239 mg/dL High: > or = 240 mg/dL Cholesterol, LDL, Calculated 71 mg/dL 10/17/2022 11:08 AM CORNER CUTTER 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 DTL Comment: ----REFERENCE VALUE---- Desirable: <100 mg/dL Above Desirable: 100-129 mg/dL Borderline High: 130-159 mg/dL High: 160-189 mg/dL Very High: >=190 mg/dL ----ADDITIONAL INFORMATION---- LDL cholesterol calculated using the Unger/NIH equation. Cholesterol, HDL, S 92 >=50 mg/dL 10/17/2022 11:08 AM CORNER CUTTER 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 DTL Cholesterol, Non-HDL, Calculated 87 mg/dL 10/17/2022 11:08 AM CORNER CUTTER 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 DTL Comment: ----REFERENCE VALUE---- Desirable: <130 mg/dL Above Desirable: 130-159 mg/dL Borderline High: 160-189 mg/dL High: 190-219 mg/dL Very High: > or =220 mg/dL Fasting (8 HR or more) yes 10/17/2022 10:41 AM CORNER CUTTER 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 DTL Blood (Blood, Venous) 10/17/2022 10:01 AM CORNER CUTTER 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 10/17/2022 10:41 AM CORNER CUTTER 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 Merlyn Cobos M.D. LAB BLO OD ADD-ON [facility] [address] [place] [address], [facility] [address] [place] [address] * Hemoglobin A1c (10/17/2022 10:01 AM CORNER CUTTER 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) Hemoglobin A1c, B 5.3 4.0 - 5.6 % 10/17/2022 11:01 AM CORNER CUTTER 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 DTL Blood (Blood, Venous) 10/17/2022 10:01 AM CORNER CUTTER 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 10/17/2022 10:26 AM CORNER CUTTER 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 Merlyn Cobos M.D. LAB BLO OD ADD-ON [facility] [address] [place] [address], [facility] [address] [place] [address] * Comprehensive Metabolic Panel (10/17/2022 10:01 AM CORNER CUTTER 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) Pathologist [facility] Potassium, S 4.5 3.6 - 5.2 mmol/L 10/17/2022 11:02 AM CORNER CUTTER 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 DTL Sodium, S 141 135 - 145 mmol/L 10/17/2022 11:02 AM CORNER CUTTER 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 DTL Chloride, S 106 98 - 107 mmol/L 10/17/2022 11:02 AM CORNER CUTTER 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 DTL Bicarbonate, S 26 22 - 29 mmol/L 10/17/2022 11:02 AM CORNER CUTTER 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 DTL Anion Gap 9 7 - 15 10/17/2022 11:02 AM CORNER CUTTER 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 DTL BUN (Blood Urea Nitrogen), S 12 6 - 21 mg/dL 10/17/2022 11:02 AM CORNER CUTTER 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 DTL Creatinine 0.59 0.59 - 1.04 mg/dL 10/17/2022 11:02 AM CORNER CUTTER 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 DTL Estimated GFR (eGFR) >90 >=60 mL/min/BS A 10/17/2022 11:02 AM CORNER CUTTER 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 DTL Comment: Estimated GFR calculated using the 2020 CKD_EPI creatinine equation. Calcium, Total, S 9.7 8.8 - 10.2 mg/dL 10/17/2022 11:02 AM CORNER CUTTER 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 DTL Glucose, S 100 70 - 140 mg/dL 10/17/2022 11:02 AM CORNER CUTTER 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 DTL Protein, Total, S 6.8 6.3 - 7.9 g/dL 10/17/2022 11:02 AM CORNER CUTTER 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 DTL Albumin, S 4.5 3.5 - 5.0 g/dL 10/17/2022 11:02 AM CORNER CUTTER 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 DTL Aspartate Aminotransferase (AST), S 23 8 - 43 U/L 10/17/2022 11:02 AM CORNER CUTTER 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 DTL Alkaline Phosphatase, S 83 35 - 104 U/L 10/17/2022 11:02 AM CORNER CUTTER 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 DTL Alanine Aminotransferase (ALT), S 23 7 - 45 U/L 10/17/2022 11:02 AM CORNER CUTTER 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 DTL Bilirubin, Total, S 0.3 <=1.2 mg/dL 10/17/2022 11:02 AM CORNER CUTTER 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 DTL Blood (Blood, Venous) 10/17/2022 10:01 AM CORNER CUTTER 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 10/17/2022 10:38 AM CORNER CUTTER 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 Merlyn Cobos M.D. LAB BLO OD ADD-ON Performing Organization Address City/[facility]/ZIP Co de Phone Number [facility] [address] [place] [address], [facility] [address] [place] [address] * Ferritin (10/17/2022 10:01 AM CORNER CUTTER 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) Ferritin, S 15 11 - 307 mcg/L 10/17/2022 11:57 AM CORNER CUTTER 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 DTL Blood (Blood, Venous) 10/17/2022 10:01 AM CORNER CUTTER 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 10/17/2022 10:41 AM CORNER CUTTER 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 Merlyn Cobos M.D. LAB BLO OD ADD-ON Performing Organization Address City/[facility]/ZIP Co de Phone Number [facility] [address] [place] [address], [facility] [address] [place] [address] * Iron and Total Iron-Binding Capacity (10/17/2022 10:01 AM CORNER CUTTER 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) Iron 58 35 - 145 mcg/dL 10/17/2022 11:08 AM CORNER CUTTER 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 DTL Total Iron Binding Capacity 341 250 - 400 mcg/dL 10/17/2022 11:08 AM CORNER CUTTER 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 DTL Percent Saturation 17 14 - 50 % 10/17/2022 11:08 AM CORNER CUTTER 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 DTL Blood (Blood, Venous) 10/17/2022 10:01 AM CORNER CUTTER 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 10/17/2022 10:41 AM CORNER CUTTER 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 Merlyn Cobos M.D. LAB BLO OD ADD-ON Performing Organization Address City/[facility]/ZIP Co de Phone Number [facility] [address] [place] [address], [facility] [address] [place] [address] * (ABNORMAL) 25-Hydroxyvitamin D2 and D3 (10/17/2022 10:01 AM CORNER CUTTER 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) [facility] 25-Hydroxy D2 <4.0 ng/mL 10/19/2022 8:34 AM [facility] 25-Hydroxy D3 18 ng/mL 10/19/2022 8:34 AM [facility] 25-Hydroxy D Total 18(L) ng/mL 2022 8:34 AM [facility] Comment: Interpretation: 10-19 ng/mL (mild to moderate deficiency) ----REFERENCE VALUE---- 25-HYDROXY D TOTAL (D2+D3) Optimum levels in the healthy population are 20-50, patients with bone disease may benefit from higher levels within this range. ----ADDITIONAL INFORMATION---- This test was developed and its performance characteristics determined by [facility] in a manner consistent with CLIA requirements. This test has not been cleared or approved by the U.S. Food and Drug Administration. Blood (Blood, Venous) 10/17/2022 10:01 AM CORNER CUTTER 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 10/18/2022 7:00 AM CORNER CUTTER 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 Merlyn Cobos M.D. LAB BLO OD ADD-ON Performing Organization Address City/[facility]/ZIP Co de Phone Number [facility] [address] [place] [address] [facility] [address] [place] [address] documented in this encounter Visit Diagnoses Diagnosis Bypass Gastric Suellen En Y Status Post Osteoporosis documented in this encounter Additional Health Concerns Assessment Noted Time PHQ-9 Depression Total Score: 0 01/16/20 14 9:12 AM CDT documented as of this encounter
--- OUTSIDE RECORDS SUMMARY | 2023-10-15 07:12 | XMS_ITS | Encounter Summary ---
Author Name Unknown Organization [facility] Address [address] [place] [address] Care Team Providers Care All Source Intelligence Name Role Phone Unavailable Primary Care Provider Unavailabl e Reason for Visit * Outpatient (Routine) - Closed Specialty Diagnoses / Procedures Referred By Amena prasad Referred To Contact General Surgery Diagnoses Bypass Gastric Suellen En Y Status Post Elvira Segura APRN, C.N.P., M.S.N. [address] [place] [phone] [facility] Referral ID Status Reason Start Date Expiration Date Visits Re quested Visits Authorized [id number] Closed 10/05/2022 10/05/2023 1 1 Encounter Details Date Type Department Care Team (Latest Contact Info) Description 11/01/2022 10:00 AM HANDICRAFTS TEACHER Comprehensive Visit Division of Endocrine and Metabolic Surgery in [place], [place] [address] [place] [address] Abida Arboleda APRN, C.N.P., D.N.P. [address] [place] [phone] Ulcer Gastric (Primary Dx); Bypass Gastric Suellen En Y Status Post Social History Tobacco Use Types Packs/Day Years [...] week 10/10/2022 How often do you attend [facility] or [facility] services? More than 4 times per year 10/10/2022 Do you belong to any clubs o r organizations such as taoism groups, unions, fraternal or athletic groups, or [...] and heating? Not hard at all 10/10/2022 [facility] [place] of Occupat ional Health - Occupational Stress [...] Sex Assigned at Female 10/10/2022 4:07 PM HANDICRAFTS TEACHER Gender Identity Female 07/16/2018 12:55 PM HANDICRAFTS TEACHER Sexual Orientation Straight 07/16/2018 12 :55 PM HANDICRAFTS TEACHER documented as of this encounter Last Filed Vital Signs Vital Sign Reading Time Taken Comments Blood Pressure - - Pulse - - Temperature - - Respiratory Rate - - Oxygen Saturation - - Inhaled Oxygen Concentration - - Weight 55.2 kg (121 lb 11.1 oz) 11/01/2022 9:18 AM HANDICRAFTS TEACHER Height 152 cm (4' 11.84) 11/01/2022 9:18 AM HANDICRAFTS TEACHER Body Mass Index 23.89 11/01/2022 9:18 AM HANDICRAFTS TEACHER documented in this encounter Progress Notes * Abida Arboleda APRN, C.N.P., D.N.P. - 11/01/2022 10:00 AM CST SUBJECTIVE CHIEF COMPLAINT/REASON FOR VISIT Post-Endoscopy Visit HISTORY OF PRESENT ILLNESS Gato Jimenez is a 77 y.o. female seen in follow up after endoscopy yesterday. She is a history of Suellen-en-Y gastric [place] [address] Arana. She was doing very well until she developed a bleeding ulcer at the GJ anastomosis after taking aspirin in preparation for knee surgery at [facility]. She would endoscopy completed an outside facility and a clip was placed to stop the bleeding ulcer. She did require 4 units of blood at that time. She was placed on Protonix and Carafate after discharge from the hospital in the [facility]. She reports that she was maintaining herweight around 130 lb until the bleeding ulcer developed. She lost about 10 lb in his currently maint aining her weight around 120 lb. She is only able to eat a few tbsp of food at a time at this point. Reports that meat continues to not be well tolerated but this is not a change since prior to the ulcer developing. The results of the EGD were as follows: Post-op Diagnoses: - Normal esophagus. - Suellen-en-Y gastrojejunostomy with mild narrowing in the setting of large amount of suture material and saskia at the anastomosis. All visible sutures saskia removed. The anastomosis was dilated to 15 mm using a CRE balloon. - Erythematous mucosa in the anastomosis. Biopsied. No active marginal ulcer appreciated. Her pain is well controlled at this time. ASSESSMENT / PLAN #1 Bypass Gastric Suellen En Y Status Post #2 Ulcer Gastric Ms. Jimenez is doing well post Endoscopy.. We discussed the findings and expected course from this point and she expressed understanding. We discussed in details how to meet her protein requirementof 60 g without meat. I wrote down a detailed list of different foods to try. Also recommended she monitor how many calories she is consuming to ensure adequate calorie intake. She does not need to have an endoscopy follow-up in 3 months but she should take omeprazole 40 mg open capsule twice daily for 3 months. Have prescribed this for her to her local pharmacy. She already has her long-term post bariatric follow-up visit set for November. She plans on attending this and encouraged her to do so. All of her questions were answered to her satisfaction. She will contact us if she has any additional questions or concerns. At this point the patient is dismissed from our surgical service. ICRAFTS TEACHER documented in this encounter Plan of Treatment Not on file documented as of this encounter Visit Diagnoses Diagnosis Ulcer Gastric- Primary Bypass Gastric Suellen En Y Status Post documented in this encounter Additional Health Concerns Assessment Noted Time PHQ-9 Depression Total Score: 0 01/16/20 14 9:12 AM CDT documented as of this encounter
--- OUTSIDE RECORDS SUMMARY | 2023-10-15 07:12 | XMS_ITS | Referral Summary ---
Author Name Unknown Organization [facility] Address [address] [place] [address] Care Team Providers Care Health And Physical Education Teacher Name Role Phone Unavailable Primary Care Provider Unavailabl e Source Comments Patient records contain information from all sites at [facility]. For routine questions regarding patient records, call [phone] during business hours, M-F 8:00 AM - 5:00 PM Central Time. Record requests for emergency care only can be directed to [phone] at any time.[facility] Allergies No known active allergies Medications Medication [...] Next Due Influenza, Unspecified 05/05/2011 PPSV23(Discontinued) 11/28/2013,08/27/2007 Social History Tobacco Use Types Packs/Day Years [...] How often do you attend chur or druze services? More than 4 times per year 10/10/2022 Do you belong to any clubs o r organizations such as moravian groups, unions, fraternal or athletic groups, or [...] and heating? Not hard at all 10/10/[address] [facility] [place] of Occupat ional Health - Occupational Stress [...] place to sleep or slept in a correction (including now)? No 10/10/2022 Nutrition Answer Date [...] Sex Assigned at Female 10/10/2022 4:07 PM BLOCK SAWYER Gender Identity Female 07/16/2018 12:55 PM BLOCK SAWYER Sexual Orientation Straight 07/16/2018 12 :55 PM BLOCK SAWYER Last Filed Vital Signs Vital Sign Reading Time Taken Comments Blood Pressure 163/73 10/31/2022 12:17 PM BLOCK SAWYER Pulse 75 10/31/2022 12:17 PM BLOCK SAWYER Temperature 36.5 ??C (97.7 ??F) 10/31/2022 1 2:27 PM BLOCK SAWYER Respiratory Rate 20 10/31/2022 12:1 7 PM BLOCK SAWYER Oxygen Saturation 96% 10/31/2022 12: 17 PM BLOCK SAWYER Inhaled Oxygen Concentration - - Weight 55.2 kg (121 lb 11.1 oz) 11/01/2022 9:18 AM BLOCK SAWYER Height 152 cm (4' 11.84) 11/01/2022 9:18 AM BLOCK SAWYER Body Mass Index 23.89 11/01/2022 9:18 AM BLOCK SAWYER Plan of Treatment Not on file Medical Devices Implanted Type Area Film Sound Engineer Device Identifier Shelf Expiration Date Model / Serial / Lot Knee Implant- 022 Implanted:01/2022 (Quantity not on file) Knee Implant Right: Knee Ocular Lens Ocular Lens Bilatera l: Eye
--- OUTSIDE RECORDS SUMMARY | 2023-10-15 07:12 | XMS_ITS ---
Author Name Unknown Organization [facility] Address [address] [place] [address] Care Team Providers Care Berry Planter Name Role Phone Unavailable Unavailable Unavailable Surgery Details Not on file Complications Check Surgery Details section. Procedure Estimated Blood Loss Check Surgery Details section. Procedure Findings Check Surgery Details section. Procedure Specimens Taken Check Surgery Details section.
--- OUTSIDE RECORDS SUMMARY | 2023-10-15 07:12 | XMS_ITS | Encounter Summary ---
Author Name Unknown Organization [facility] Address [address] [place] [address] Care Team Providers Care Manhole Builder Name Role Phone Unavailable Primary Care Provider Unavailabl e Encounter Details Date Type Department Care Team (Latest Contact Info) Description 10/17/2022 9:[address] [facility] Hospital Encounter Department of Laboratory Medicine and Pathology, [facility], in [place], [place] [address] [place] [phone] Merlyn Benedict M.B.B.S., [place] [address] [place] [phone] Bypass Gastric Suellen En Y Status Post; Stone Kidney Personal History Discharge Disposition: Home or Self Care Social [...] often do you attend chur ch or mormonism services? More than 4 times per year 10/10/2022 Do you belong to any clubs o r organizations such as jew groups, unions, fraternal or athletic groups, or [...] hard at all 10/10/2022 [facility]ational Stress Questionnaire Answer Date [...] place to sleep or slept in a retirement (including now)? No 10/10/2022 Nutrition Answer Date [...] Sex Assigned at Female 10/10/2022 4:07 PM CUSTOMS COMPLIANCE ANALYST Gender Identity Female 07/16/2018 12:55 PM CUSTOMS COMPLIANCE ANALYST Sexual Orientation Straight 07/16/2018 12 :55 PM CUSTOMS COMPLIANCE ANALYST documented as of this encounter Medications at [...] 0 04/07/2019 pantoprazole (PROTONIX) 40 mg EC tabletIndications:Bypas s Gastric Suellen En Y Status Post Take 1 tablet (40 mg total) by mouth every morning before breakfast. 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
--- OUTSIDE RECORDS SUMMARY | 2023-10-15 07:12 | XMS_ITS | Encounter Summary ---
Author Name Unknown Organization [facility] Address [address] [place] [address] Care Team Providers Care Systems Program Manager Name Role Phone Unavailable Primary Care Provider Unavailabl e Reason for Referral * Outpatient (Routine) - Closed Specialty Diagnoses / Procedures Referred By Amena prasad Referred To Contact Diagnoses Bypass Gastric Suellen En Y Status Post Procedures EGD (EsophagealGastroDuodenoscopy ) Elvira Segura APRN, C.NMartha, M.S.N. [address] [place] [phone] [facility] Referral ID Status Reason Start Date Expiration Date Visits Re quested Visits Authorized [id number] Closed 10/05/2022 10/05/2023 1 1 ORM ATTENDANT Reason for Visit * Outpatient (Routine) - Closed Specialty Diagnoses / Procedures Referred By Amena prasad Referred To Contact Diagnoses Bypass Gastric Suellen En Y Status Post Procedures EGD (EsophagealGastroDuodenoscopy ) Elvira Segura APRN, C.N.P., M.S.N. [address] [place] [phone] [facility] Referral ID Status Reason Start Date Expiration Date Visits Re quested Visits Authorized [id number] Closed 10/05/2022 10/05/2023 1 1 Encounter Details Date Type Department Care Team (Latest Contact Info) Description 10/31/2022 10:22 AM UNIFORM ATTENDANT - 10/31/2022 10:28 AM UNIFORM ATTENDANT Hospital Encounter Division of Gastroenterology in [place], [place] [address] [place] [phone] Elvira Segura APRN, C.N.P., M.S.N. [address] [place] [phone] Saturnino Rod M.D., M.P.H. [address] [place] [phone] Bettie Amezcua APRN, JENNY [address] [place], [place] [phone] Bypass Gastric Suellen En Y Status Post [...] week 10/10/2022 How often do you attend [facility] or cheondoism services? More than 4 times per year 10/10/2022 Do you belong to any clubs o r organizations such as congregational groups, unions, fraternal or athletic groups, or [...] and heating? Not hard at all 10/10/2022 [facility] of Occupat ional Health - Occupational Stress [...] Sex Assigned at Female 10/10/2022 4:07 PM UNIFORM ATTENDANT Gender Identity Female 07/16/2018 12:55 PM UNIFORM ATTENDANT Sexual Orientation Straight 07/16/2018 12 :55 PM UNIFORM ATTENDANT documented as of this encounter Medications at [...] Procedure Name Priority Date/Time Associated Diagnosis Comments SURGICAL PATHOLOGY Routine 10/31/2022 11 :23 AM UNIFORM ATTENDANT UPPER GI ENDOSCOPY Routine 10/31/2022 10 :23 AM UNIFORM ATTENDANT Bypass Gastric Suellen En Y Status Post EGD (ESOPHAGEALGASTRODU ODENOSCOPY) Routine 10/31/2022 10:23 AM UNIFORM ATTENDANT Bypass Gastric Suellen En Y Status Post documented in this encounter Results * Surgical Pathology (10/31/2022 11:23 AM UNIFORM ATTENDANT) 11/02/2022 8:47 AM UNIFORM ATTENDANT DTL Report electronically signed by Anton Dash M.D. I verify that I have examined all relevant slides/materials for the specimen(s) and rendered or confirmed the diagnosis. 11/02/2022 8:47 AM UNIFORM ATTENDANT DTL Gross Description Received in formalin labeled with the patient's name, medical record number, and stomach, gastric pouch-biopsy, stomach are three pale grossman-pink irregular soft tissues, ranging from 0.2-0.6 cm in greatest dimension. ??Specimens are submitted en toto in cassette A1. ??Grossed by AJG. 11/02/2022 8:47 AM UNIFORM ATTENDANT DTL Addendum H. pylori immunostain (A1) is negative Signed by Anton Dash M.D. 11/03/2022 3:19 PM This test was developed using an analyte specific reagent. Its performance characteristics were determined by [facility] in a manner consistent with CLIA requirements. This test has not been cleared or approved by the U.S. Food and Drug Administration. 11/03/2022 3:19 PM UNIFORM ATTENDANT DTL Comment:REVISED RESULTS Interpretation FINAL DIAGNOSIS A. Stomach, gastric pouch, endoscopic biopsy: ??Antral and fundic mucosa with mild chronic inflammation. 11/03/2022 3:19 PM UNIFORM ATTENDANT DTL Biopsy (Stomach) 10/31/2022 11:23 AM UNIFORM ATTENDANT Saturnino Rod M.D., M.P.H. LAB ISRRAEL G PATH ORDERABLES [facility] [address] [place] [address], [facility] DTD[facility] [address] [place] [address] * Upper GI Endoscopy (10/31/2022 10:23 AM UNIFORM ATTENDANT) 10/31/2022 10:2 3 AM UNIFORM ATTENDANT [facility] 10/31/2022 11:53 AM UNIFORM ATTENDANT Post-op Diagnoses: ? - Normal esophagus. ? - Suellen-en-Y gastrojejunostomy with mild narrowing in the setting of ? large amount of suture material and saskia at the anastomosis. All ? visible sutures saskia removed. The anastomosis was dilated to 15 mm ? using a CRE balloon. ? - Erythematous mucosa in the anastomosis. Biopsied. No active marginal ? ulcer appreciated. Narrative [employer] - 10/31/2022 11:53 AM UNIFORM ATTENDANT Tracey 2 GI Patient Name: Gato Jimenez Date of : 1945 Age: 77 Gender: Female Procedure Date: 10/31/2022 Procedure: ? Upper GI endoscopy Providers: ? Saturnino Rod MD Referring Provider: ?Elvira Segura Pre-op Diagnoses: ?Foreign body in the stomach, Assessment following ? Suellen-en-Y gastrojejunostomy Recommendation: ? - Discharge patient to home. Open capsule PPI daily for 3 months. ? Follow-up with referring team on pending pathology. Findings: ? The examined esophagus was normal. The GE junction was at 35 cm from the ? incisors. No esophagitis. ? Evidence of a Sulelen-en-Y gastrojejunostomy was found. The gastric pouch ? measured 5 cm in length. Mild narrowing of the gastrojejunal anastomosis ? to 10 mm. This was easily traversed with the therapeutic upper ? gastroscope. Large amount of suture material at the anastomosis. Using ? double channel gastroscope for traction, all suture material and visible ? saskia completely removed. There was no evidence of underlying marginal ? ulcer. The gastrojejunal anastomosis was dilated to 15 mm using a CRE ? balloon under fluoroscopy. I personally interpreted the fluoroscopic ? images obtained during the course of the procedure. ? Diffuse mildly erythematous mucosa without bleeding was found at the ? anastomosis. Biopsies were taken with a cold forceps for histology and H ? pylori. ? Normal jejunum Procedural Details: ? The patient was seen, evaluated, history reviewed, airway and heart-lung ? exams were performed by licensed provider and were satisfactory for ? planned level of sedation care. ? The risks, benefits and alternatives for the procedure and sedation were ? discussed and informed consent was obtained. A procedural pause was ? conducted in the presence of assisting personnel to verify the correct ? patient identity and procedure to be performed. Throughout the ? procedure, the patient's blood pressure, pulse, and oxygen saturations ? were monitored continuously. The Gastroscope was introduced through the ? mouth, and advanced to the jejunum. The upper GI endoscopy was ? accomplished without difficulty. The patient tolerated the procedure ? well. Complications: ? No immediate complications. Estimated Blood Loss: ?Estimated blood loss was minimal. Attending Participation: I personally performed the entire procedure. Saturnino Rod MD 10/31/2022 11:53:04 AM This report has been signed electronically. Number of Addenda: 0 Note Initiated On: 10/31/2022 10:23 AM Elvira Segura APRN C.N.P., M.S.N. G I PROCEDURE ORDERABLES Performing Organization Address City/State/[facility] Co la Phone Number [facility] documented in this encounter Visit Diagnoses Diagnosis Bypass Gastric Suellen En Y Status Post documented in this encounter Additional Health Concerns Assessment Noted Time PHQ-9 Depression Total Score: 0 01/16/20 14 9:12 AM CDT documented as of this encounter
--- OUTSIDE RECORDS SUMMARY | 2023-10-15 07:12 | XMS_ITS | Encounter Summary ---
Author Name Unknown Organization [facility] Address [address] [place] [address] Care Team Providers Care Solid Waste Division Supervisor Name Role Phone Unavailable Primary Care Provider Unavailabl e Encounter Details Date Type Department Care Team (Late st Contact Info) Description 10/31/2022 11:04 AM STONE POLISHER MACHINE Anesthesia Event Division of Gastroenterology in [place], [place] [address] [place] [phone] Bettie Amezcua APRN, AMMONIA STILL OPERATOR [address] [place] [phone] Luan Kennedy M.D., J.D. [address] [place] [phone] Anesthesia Record Procedure Summary Procedure Name Responsible Anesthesiologist Anesthesia Start Time Anesthesia Stop Time EGD (ESOPHAGEALGASTRODU ODENOSCOPY) Bettie Amezcua APRN, CRNA 10/31/22 1104 10/31/22 1146 Events Date Time Event Comment 10/31/2022 1104 1104 An Start Machine/Equipme nt Checked Infection Precautions Followed Procedure/Site Verified NPO Status Verified Supine Standard ASA Monitors Applied 1109 Turnover to Proceduralist 1114 Proc Start 1138 Proc Fin 1141 Turnover to ANE Staff 1141 an stop data 1146 An End I completed my handoff to the receiving staff during which we 1. Identified the patient 2. Identified the responsible provider 3. Reviewed the pertinent medical history 4. Discussed the surgical course 5. Reviewed intra-op anesthesia management and issues during anesthesia 6. Set expectations for post-procedure period 7. Allowed opportunity for questions and acknowledgement of understanding. Meds Name Total fentanyl injection 50 mcg/mL 75 mcg lidocaine 2% (mg) injection 60 mg propofol 10 mg/mL injection 100 mg propofol 10 mg/mL infusion 235.64 mg ondansetron PF 4 mg/2 mL injection 4 mg Lactated Ringers Free Drip 800 mL * Agents No agents on file. * Blood No blood administrations on file. Lines, Drains, and Airways Type Details Placement Removal Peripheral IV Placement Date: 03/18; Placement Time: 104; Catheter Size: 20 G; Orientation: Posterior, Right; Location: Wrist; Site Prep: Chlorhexidine (Preferred); Technique: Anatomical landmarks; Inserted by: Kadi Lindo; Insertion Attempts: 1; Removal Date: 10/31/22; Removal Time: 122; Removal Reason: Patient discharged 10/31/22 1049 by Kadi Lindo, R.N. 10/31/22 1227 by Constanza Sorensen documented in this encounter Social History Tobacco Use Types Packs/Day Years [...] week 10/10/2022 How often do you attend [facility] or denominational services? More than 4 times per year 10/10/2022 Do you belong to any clubs o r organizations such as rastafarian groups, unions, fraternal or athletic groups, or [...] and heating? Not hard at all 10/10/2022 [facility] of Occupat ional Health - Occupational Stress [...] Sex Assigned at Female 10/10/2022 4:07 PM STONE POLISHER MACHINE Gender Identity Female 07/16/2018 12:55 PM STONE POLISHER MACHINE Sexual Orientation Straight 07/16/2018 12 :55 PM STONE POLISHER MACHINE documented as of this encounter OR Notes * Anesthesia Postprocedure Evaluation - Bettie Amezcua APRN, CRNA - 10/31/2022 11:47 AM CST Patient: Gato Jimenez Procedure Summary Date: 10/31/22 Room / Location: Division of Gastroenterology in [place], [place] Anesthesia Start: 1104 Anesthesia Stop: Procedure: EGD (ESOPHAGEALGASTRODUODENOSCOPY) Diagnosis: Bypass Gastric Suellen En Y Status Post Scheduled Providers: Saturnino Rod M.D., M.P.H.; Bettie Amezcua APRN, CRNA Responsible Provider: Bettie Amezcua APRN, CRNA Anesthesia Type: MAC ASA Status: 3 Anesthesia Type: MAC Last vitals Vitals Value Taken Time BP 140/66 10/31/22 1145 Temp Pulse 86 10/31/22 1145 Resp 17 10/31/22 1145 SpO2 98 % 10/31/22 1145 Vitals shown include unvalidated device data. Please reference Vitals flowsheet for most recent vital signs. Anesthesia Post Evaluation Patient Disposition: dismissal Cardiovascular status: hemodynamics (HR & BP) acceptable Respiratory status: patent airway with spontaneous effort Temperature: normothermic Oxygen requirements: room air Level of consciousness: awake Pain score: pain adequately controlled and/or at baseline Post Op nausea/vomiting: none Hydration status: euvolemic E POLISHER MACHINE * Anesthesia Preprocedure Evaluation - Luan Kennedy M.D., J.DMaddie - 10/31/2022 11:04 AM CST Preprocedure Anesthesia & H&P Assessment Procedure Summary Date/Time: 10/31/22 1200 Scheduled providers: Saturnino Rod M.D., M.P.H.; Bettie Amezcua APRN, CRNA Procedure: EGD (ESOPHAGEALGASTRODUODENOSCOPY) Diagnosis: Bypass Gastric Suellen En Y Status Post [Z98.0] Location: Division of Gastroenterology in [place], [place] Pertinent components of the patient's history including current problem list, medical history, surgical history, family history, social history, medications and allergies were reviewed. Present illness and pre-op diagnosis were confirmed. The planned surgery / procedure was verified with the patient / legal guardian. The patient's general health condition remains unchanged RELEVANT COMORBID CONDITIONS CV (+) Hypertension Essential Primary GENETICS (+) Hyperlipidemia OBJECTIVE PHYSICAL EXAMINATION Airway (HEENT) Mallampati: II TM Distance: >3 FB Neck ROM: Full Mouth Opening: >3 cm Upper Lip Bite Test Class: I Cardiovascular Rhythm: Regular Rate: Normal Cardiovascular Assessment: cardiovascular normal Functional Capacity: >4 METS Pulmonary Pulmonary Assessment: Clear General / Constitutional Constitutional Assessment: Normal General State of Health:: healthy appearing and calm ASSESSMENT / PLAN ANESTHESIA PLAN ASA: 3 Anesthesia Plan: MAC Patient seen and allergies reviewed, anesthesia plan and risks discussed directly with patient /legal guardian or through an sql server consultant. The use of blood products not discussed Approval to Proceed: approved for anesthesia E POLISHER MACHINE documented in this encounter Plan of Treatment Not on file documented as of this encounter Visit Diagnoses Not on filedocumented in this encounter Administered Medications Inactive Administered Medications - up to 3 most recent administrations Medication Order MAR Action Action Date Dose Rate Site fentaNYL injection (SUBLIMAZE) intravenous, As needed, Starting on Sun10/31/22 at 1116, Anesthesia Intra-op Given 10/31/2022 11:31 AM STONE POLISHER MACHINE 25 mcg Given 10/31/2022 11:19 AM STONE POLISHER MACHINE 25 mcg Given 10/31/2022 11:16 AM STONE POLISHER MACHINE 25 mcg lactated ringers intravenous, Continuous Infusion: Per Instructions PRN, Starting on Sun10/31/22 at 1106, Anesthesia Intra-op New Bag 10/31/2022 11:06 AM STONE POLISHER MACHINE lidocaine (PF) (cardiac) injection intravenous, As needed, Starting on Sun10/31/22 at 1109, Anesthesia Intra-op Given 10/31/2022 11:09 AM STONE POLISHER MACHINE 60 mg ondansetron (PF) injection (ZOFRAN) intravenous, As needed, Starting on Sun10/31/22 at 1109, Anesthesia Intra-op Given 10/31/2022 11:09 AM STONE POLISHER MACHINE 4 mg propofol 10 mg/mL infusion (DIPRIVAN) intravenous, Continuous Infusion: Per Instructions PRN, Starting on Sun10/31/22 at 1109, Anesthesia Intra-op Rate/Dose Change 10/31/2022 11:33 AM STONE POLISHER MACHINE 100 mcg/kg/min 32.88 mL/hr Rate/Dose Change 10/31/2022 11:11 AM STONE POLISHER MACHINE 160 mcg/kg/min 52 .608 mL/hr New Bag 10/31/2022 11:09 AM STONE POLISHER MACHINE 140 mcg/kg/min 46.032 m L/hr propofoL injection (DIPRIVAN) intravenous, As needed, Starting on Sun10/31/22 at 1109, Anesthesia Intra-op Given 10/31/2022 11:16 AM STONE POLISHER MACHINE 20 mg Given 10/31/2022 11:14 AM STONE POLISHER MACHINE 20 mg Given 10/31/2022 11:13 AM STONE POLISHER MACHINE 30 mg documented in this encounter Additional Health Concerns Assessment Noted Time PHQ-9 Depression Total Score: 0 01/16/20 14 9:12 AM CDT documented as of this encounter
--- OUTSIDE RECORDS SUMMARY | 2023-10-15 07:12 | XMS_ITS | Encounter Summary ---
Author Name Unknown Organization [facility] Address [address] [place] [id number] Care Team Providers Care Chicken Buyer Name Role Phone Unavailable Primary Care Provider Unavailabl e Encounter Details Date Type Department Care Team (Latest Contact Info) Description 11/01/2022 9:48 AM URBAN SOCIOLOGIST - 11/01/2022 11:59 PM URBAN SOCIOLOGIST Hospital Encounter Department of Laboratory Medicine and Pathology, [facility] in [place], [place] [address] [place] [address] Merlyn Benedict M.B.B.S., M.D. [address] [place] [address] Bypass Gastric Suellen En Y Status Post [...] any clubs o r organizations such as bahai groups, unions, fraternal or athletic groups, or [...] and heating? Not hard at all 10/10/2022 [facility] - Occupational Stress [...] place to sleep or slept in a alf (including now)? No 10/10/2022 Nutrition Answer Date [...] Sex Assigned at Female 10/10/2022 4:07 PM URBAN SOCIOLOGIST Gender Identity Female 07/16/2018 12:55 PM URBAN SOCIOLOGIST Sexual Orientation Straight 07/16/2018 12 :55 PM URBAN SOCIOLOGIST documented as of this encounter Medications at [...] weeks. One tab relieved sx. 0 05/21/2013 omeprazole (PriLOSEC) [address] capsule Take 1 capsule (40 mg total) by mouth 2 (two) times a day before breakfast and dinner. Open capsule onto a bite of applesauce 180 capsule 0 11/01/2022 predniSONE (DELTASONE) 20 mg tablet as needed. For gout when needed 0 04/07/2019 documented as of this encounter Plan of Treatment Not on file documented as of this encounter Procedures Procedure Name Priority Date/Time Associated Diagnosis Comments SUPERSATURATION, 24H, U Routine 11/07/2022 7:00 AM CDT Bypass Gastric Suellen En Y Status Post documented in this encounter Results * (ABNORMAL) Supersaturation, 24 Hr, Urine (11/07/2022 7:00 AM CDT) [facility] Sodium, 24 HR, U 146 22 - 328 mmol/24 h 11/07/2022 11:48 AM CDT DTL Potassium, 24 HR, U 86 16 - 105 mmol/24 h 11/07/2022 11:48 AM CDT DTL Calcium, 24 HR, U 65 <200 mg/24 h 11/07/2022 11:48 AM CDT DTL Magnesium, 24 HR, U 114 51 - 269 mg/24 h 11/07/2022 11:48 AM CDT DTL Chloride, 24 HR, U 128 34 - 286 mmol/24 h 11/07/2022 11:48 AM CDT DTL Phosphorus, 24 HR, U 699 226 - 1797 mg/24 h 11/07/2022 11:48 AM CDT DTL Sulfate, 24 HR, U 9 7 - 47 mmol/24 h 11/07/2022 4:23 PM CDT DTL Comment: ----ADDITIONAL INFORMATION---- This test was developed and its performance characteristics determined by [facility] in a manner consistent with CLIA requirements. This test has not been cleared or approved by the U.S. Food and Drug Administration. Citrate Excretion, 24 HR, U 407 mg/24 h 11/07/2022 12:23 PM CDT DTL Comment: ----REFERENCE VALUE---- Reference values have not been established for patients who are >60 years of age. ----ADDITIONAL INFORMATION---- This test was developed and its performance characteristics determined by [facility] in a manner consistent with CLIA requirements. This test has not been cleared or approved by the U.S. Food and Drug Administration. Oxalate, 24 HR, U (mmol/24 HR) 0.23 0.11 - 0.46 mmol/24 h 11/07/2022 2:54 PM CDT DTL Comment: ----ADDITIONAL INFORMATION---- This test was developed and its performance characteristics determined by [facility] in a manner consistent with CLIA requirements. This test has not been cleared or approved by the U.S. Food and Drug Administration. Oxalate, 24 HR, U (mg/24 HR) 20.2 9.7 - 40.5 mg/24 h 11/07/2022 2:54 PM CDT DTL pH, 24 HR, U 7.0 4.5 - 8.0 11/07/2022 11:45 AM CDT DTL Uric Acid, 24 HR, U 293 250 - 750 mg/24 h 11/07/2022 11:48 AM CDT DTL Creatinine, 24 HR, U 569(L) 603 - 1783 mg/24 h 11/07/2022 11:48 AM CDT DTL Osmolality, 24 HR, U 414 150 - 1150 mOsm/kg 11/07/2022 11:45 AM CDT DTL Comment: Consistent with decreased fluid intake or increased intestinal losses. Urine overly concentrated; advise increased fluid intake. Ammonium, 24 HR, U 9(L) 15 - 56 mmol/24 h 11/07/2022 4:23 PM CDT DTL Comment: ----ADDITIONAL INFORMATION---- This test has been modified from the resource conservation specialist's instructions. Its performance characteristics were determined by [facility] in a manner consistent with CLIA requirements. This test has not been cleared or approved by the U.S. Food and Drug Administration. Urea Nitrogen, 24 HR, U 6.4(L) 7.0 - 42.0 g/24 h 11/07/2022 1:54 PM CDT DTL Protein Catabolic Rate, 24 HR, U 65 56 - 125 g/24 h 11/07/2022 1:54 PM CDT DTL Patient Surface Area SEE COMMENT 1.73m(2) 11/07/2022 10:55 AM CDT DTL Comment:Adult values are not corrected for body surface area. Calcium Oxalate Crystal 0.28 Reference Mean= 1.59 DG 11/08/2022 7:27 AM CDT DTL Brushite Crystal 0.13 Reference Mean= -0.11 DG 11/08/2022 7:27 AM CDT DTL Hydroxyapatite Crystal 6.00(H) Reference Mean= 3.62 DG 11/08/2022 7:27 AM CDT DTL Uric Acid Crystal -6.41 Reference Mean= 0.89 DG 11/08/2022 7:27 AM CDT DTL Collection Duration 24 h 11/08/2022 7:27 AM CDT DTL Volume 1626 mL 11/08/2022 7:27 AM CDT DTL Interpretation The DG is related to supersaturation. DG is negative for undersaturated solutions, zero for solutions at the solubility product, and positive for saturated solutions. Any value greater than the Reference Mean is considered a risk for the respective crystal type formation. In general, a higher calculated SS means the risk for forming that type of stone is increased. A positive DG value indicates that the urine is supersaturated for that crystal type. 11/08/2022 7:27 AM CDT DTL Urine (Urine, 24 Hours) 11/07/2022 7:00 AM CDT 11/07/2022 10:55 AM CDT Merlyn Cobos M.D. LAB URI NE ORDERABLES [facility] [address] [place] [address], [facility] [address] [place] [address] documented in this encounter Visit Diagnoses Diagnosis Bypass Gastric Suellen En Y Status Post documented in this encounter Additional Health Concerns Assessment Noted Time PHQ-9 Depression Total Score: 0 01/16/20 14 9:12 AM CDT documented as of this encounter
--- OUTSIDE RECORDS SUMMARY | 2023-10-15 07:12 | XMS_ITS | Encounter Summary ---
Author Name Unknown Organization [facility] Address [address] [place] [address] Care Team Providers Care Typewriter Repairer Name Role Phone Unavailable Primary Care Provider Unavailabl e Encounter Details Date Type Department Care Team (Latest Contact Info) Description 10/31/2022 10:25 AM CISCO NETWORK ENGINEER Ancillary Procedure Department of Gastroenterology Social History Tobacco Use Types Packs/Day Years [...] week 10/10/2022 How often do you attend [facility] or christianity services? More than 4 times per year [...] and heating? Not hard at all 10/10/2022 [facility] Occupat ional [facility] - Occupational Stress Questionnaire Answer Date Recorded [...] place to sleep or slept in a snf (including now)? No 10/10/2022 Nutrition Answer Date [...] Sex Assigned at Female 10/10/2022 4:07 PM CISCO NETWORK ENGINEER Gender Identity Female 07/16/2018 12:55 PM CISCO NETWORK ENGINEER Sexual Orientation Straight 07/16/2018 12 :55 PM CISCO NETWORK ENGINEER documented as of this encounter Plan of Treatment Not on file documented as of this encounter Procedures Procedure Name Priority Date/Time Associated Diagnosis Comments GASTROENTEROLOGY IMAGE EXAM Routine 10/31/2022 10:25 AM CISCO NETWORK ENGINEER documented in this encounter Results * Upper GI endoscopy-Gastroenterology Image Exam (10/31/2022 10:25 AM CISCO NETWORK ENGINEER) 10/31/2022 10:2 3 AM CISCO NETWORK ENGINEER Narrative IIMS - 10/31/2022 12:00 PM CISCO NETWORK ENGINEER This order has been created and auto-finalized to support the import of images acquired without order. The clinical documentation to support these images can be found on the encounter that produced images. Provider Not In System IMG NON RAD IMAGI NG PROCEDURES IIMS NA documented in this encounter Visit Diagnoses Not on filedocumented in this encounter Additional Health Concerns Assessment Noted Time PHQ-9 Depression Total Score: 0 05/22/20 14 9:12 AM CDT documented as of this encounter
--- OUTSIDE RECORDS SUMMARY | 2023-10-15 07:13 | XMS_ITS | Encounter Summary ---
Author Name Unknown Organization [facility] Address [address] [place] [address] Care Team Providers Care Foundation Coordinator Name Role Phone Unavailable Primary Care Provider Unavailabl e Reason for Referral * Outpatient (Routine) - Closed Specialty Diagnoses / Procedures Referred By Amena prasad Referred To Contact Diagnoses Nausea And Vomiting Procedures FL Upper GI Single Contrast Without KUB Merlyn Benedict M.B.B.S., M.D. [address] [place] [address] [facility] Referral ID Status Reason Start Date Expiration Date Visits Re quested Visits Authorized [id number] Closed 10/17/2022 10/17/2023 1 1 RITY OPERATIONS ENGINEER Reason for Visit * Outpatient (Routine) - Closed Specialty Diagnoses / Procedures Referred By Amena prasad Referred To Contact Endocrinology Diagnoses Bypass Gastric Suellen En Y Status Post Tucker Zavaleta M.D. [address] [place] [address] [facility] Referral ID Status Reason Start Date Expiration Date Visits Re quested Visits Authorized [id number] Closed 10/06/2022 10/06/2023 1 1 Encounter Details Date Type Department Care Team (Latest Contact Info) Description 10/17/2022 8:30 AM SECURITY OPERATIONS ENGINEER Comprehensive Visit Division of Endocrinology in [place], [place] [address] [place] [phone] Merlyn Benedict M.B.B.S., M.D. [address] [place] [address] Bypass Gastric Suellen En Y Status Post (Primary Dx); Nausea And Vomiting; Stone Kidney Personal History; Osteoporosis Social History Tobacco Use Types Packs/Day Years [...] week 10/10/2022 How often do you attend [facility] or roman catholic services? More than 4 times per year 10/10/2022 Do you belong to any clubs o r organizations such as yarsanism groups, unions, fraternal or athletic groups, or [...] and heating? Not hard at all 10/10/2022 [facility] - Occupational [...] Sex Assigned at Female 10/10/2022 4:07 PM SECURITY OPERATIONS ENGINEER Gender Identity Female 07/16/2018 12:55 PM SECURITY OPERATIONS ENGINEER Sexual Orientation Straight 07/16/2018 12 :55 PM SECURITY OPERATIONS ENGINEER documented as of this encounter Last Filed Vital Signs Vital Sign Reading Time Taken Comments Blood Pressure 150/80 10/17/2022 8:10 AM SECURITY OPERATIONS ENGINEER Pulse 71 10/17/2022 8:10 AM SECURITY OPERATIONS ENGINEER Temperature - - Respiratory Rate - - Oxygen Saturation - - Inhaled Oxygen Concentration - - Weight 54.8 kg (120 lb 13 oz) 10/17/2022 8:10 AM SECURITY OPERATIONS ENGINEER Height 153 cm (5' 0.24) 10/17/2022 8:10 AM SECURITY OPERATIONS ENGINEER Body Mass Index 23.41 10/17/2022 8:10 AM SECURITY OPERATIONS ENGINEER documented in this encounter Consult Notes * Merlyn Benedict M.B.B.S., M.D. - 10/17/2022 8:30 AM CST SUBJECTIVE CHIEF COMPLAINT / REASON FOR VISIT For evaluation and management post bariatric surgery REFERRING PROVIDER: Tucker Zavaleta M.D.. PRIMARY CARE PROVIDER: No primary care provider on file. HISTORY OF PRESENT ILLNESS Gato Jimenez is a 77 y.o. female, from [facility], with post bariatric endocrine follow-up visit in 2019. She is post Suellen-en-Y gastric bypass by Dr. Mariano Arana on 11/27/2013 Heaviest adult weight: Weight at time of surgery: 96.7 kg Sal weight: 57.4 kg Weight at the time of visit in 2020: 60.8 kg Weight today: Wt 54.8 kg (121 lbs) Weight loss: 92 lbs (43 % of baseline weight) Gastrointestinal Symptoms: Had a knee surgery in 06/2022 and had taken aspirin and presented with upper GI bleed. On reviewing outside records, patient was noted to have a Dieulafoy lesion with spurting bleeding and stigmata of recent bleeding found at G-J anastomosis (typical Suellen-en-Y anatomy). Area was successfully injected with epi and 3 hemostatic clips placed. No bleeding at end of procedure. However, a long wire extending from the anastomosis into lumen at least 6 cm was seen, could notsee distal aspect due to blood obscuring visualization. There was also mention of marginal ulceration at the gastrojejunostomy. Recommended endoscopic removal of the retained sutures if repeated episodes of bleeding; otherwise, no additional therapy or suture removal as needed Started on Protonix since then. She currently requests a refill. She also had A.Fib at that time. Reports having continued abdominal discomfort in the epigastric area since then, worsened by eating/drinking. Also having nausea/vomiting post prandially Reports baseline weight being 134 lbs post bariatric surgery and reports recent continued weight loss. Vitamin supplementation: MVI: Takes 1 BID Vitamin B12: Does injections once a month Iron: None separate Had 4 units PRBC transfusion in 06/2022 after bleed Calcium/Vitamin D: Takes 50,000 units once a week Tums 1 BID Kidney stone: 3-4 episodes prior to surgery and 1 last episode 5 years prior. Reports calcium type stone. No stone analysis available. Bone health: Reports history of osteoporosis and receiving Reclast infusion once a year. Patient isvague on further details. Denies history of fragility fracture. CURRENT EXERCISE HABITS: Type/quantity: Does an aquatic exercise class 2 days/week CURRENT EATING HABITS: Eats 6 small meals/day (able to eat only 2 tbsp at a time now). I try to eat everything. Pastas and rice bother her with nausea Avoids sweets WEIGHT RELATED CO-MORBIDITIES 1. Sleep apnea: Had sleep apnea prior to surgery. No CPAP use since surgery 2. Glucose related concerns: Denies concerns prior to surgery 3. Blood pressure related concerns: On Toprol XL and Lisinopril for HTN. Amlodipine was stopped in the hospital. Reports usual BP in the 130 range for systolic. 4. Liver concerns: No known diagnosis of MAFLD AST and ALT elevated at 165 and 41 in 06/2022. On recheck in few days ALT was 88 and AST normal 5. Lipid concerns: On Atorvastatin 10 mg daily Reports having a stroke in her 30s with transient right sided weakness 6. GERD: Had GERD before surgery. OTHER POTENTIAL CONTRIBUTING FACTORS: Psych History: Has history of depression. Reports being stable on Prozac. No history of suicidal attempts, psychiatric hospitalization or psychiatric Emergency Department visit in the past. No prior diagnosis of Bipolar disorder. Other relevant comorbidities: Hypothyroidism s/p RM for Graves disease. Last TSH from 06/2022 was 0.75 REVIEW OF SYSTEMS Pertinent items are noted in HPI; all other review of systems was negative. OTHER RELEVANT LABS REVIEWED: Hb in 07/2022 was 11.1 from 7.6 in 06/2022 during bleed The following portions of the patient's history were reviewed and updated as appropriate: visit questionnaire, allergies, current medications, family history, medical history, social history, surgical history, and problem list. 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 Lives with . Never smoked. ETOH use: rare OBJECTIVE Ht 153 cm Wt 54.8 kg Body mass index is 23.41 kg/m??. VITAL SIGNS Vitals: 10/17/22 0810 BP: 150/80 Pulse: 71 PHYSICAL EXAM General-patient appears well no apparent distress. Lungs-clear to auscultation Cardiovascular-regular rate and rhythm, no murmur Abdomen- soft, has tenderness in the epigastric area, no hepatosplenomegaly; no widened or hyperpigmented striae Extremities- no lower extremity edema ASSESSMENT / PLAN 1. Bypass Gastric Usellen En Y Status Post - Endocrinology - Bariatric consult (clinic) - pantoprazole (PROTONIX) 40 mg EC tablet; Take 1 tablet (40 mg total) by mouth every morning before breakfast. Dispense: 90 tablet; Refill: 0 - 25-Hydroxyvitamin D2 and D3; Future - Iron and Total Iron-Binding Capacity; Future - Ferritin; Future - Comprehensive Metabolic Panel; Future - Hemoglobin A1c; Future - Lipid Panel; Future - Vitamin B12 Assay; Future - CBC with Differential, Blood; Future - Parathyroid Hormone (PTH); Future - Bone Alkaline Phosphatase; Future - Supersaturation, 24 Hr, Urine; Future 2. Nausea And Vomiting - FL Upper GI Single Contrast Without KUB; Future 3. Stone Kidney Personal History - Supersaturation, 24 Hr, Urine; Future 4. Osteoporosis - Parathyroid Hormone (PTH); Future - Bone Alkaline Phosphatase; Future Other orders - cyanocobalamin, vitamin B-12, (B-12 KIT INJ); Inject 1,000 mcg as directed every 30 (thirty) days. Through primary care clinic 1. Patient has an upcoming appointment for EGD and follow-up in Endocrine surgery. With reported postprandial nausea/vomiting, upper GI series will also be ordered currently. 2. I have recommended to update bariatric follow-up labs including comprehensive metabolic panel, iron parameters, vitamin-D, vitamin B12, CBC with diff, hemoglobin A1c and lipid panel. In the setting of osteoporosis and prior history of nephrolithiasis, 24 hour urine super saturation profile, PTH and bone alkaline phosphatase will be obtained. 3. Records from her primary care provider of bone densities and osteoporosis management will also be requested. 4. She had long-term post bariatric care group visits coming up in late October and can continue annually thereafter. I have spent 56 minutes in patient consultation, chart review and documentation. RITY OPERATIONS ENGINEER documented in this encounter Plan of Treatment Scheduled Orders Name Type Priority Associated Diagnoses Orde r Schedule Supersaturation, 24 Hr, Urine Lab Routine Bypass Gastric Suellen En Y Status Post Stone Kidney Personal History Expected: 10/17/2022 (Approximate), Expires: 12/16/2022 documented as of this encounter Results * FL Upper GI Single Contrast Without KUB (10/24/2022 1:55 PM SECURITY OPERATIONS ENGINEER) Anatomical Region Laterality Modality Gastro Intestinal, Abdominal RST LOS, Abdominal ARZ LOS, Abdominal FLA LOS Digital Radiography 10/24/2022 1:59 PM SECURITY OPERATIONS ENGINEER Impressions 10/24/2022 2:39 PM SECURITY OPERATIONS ENGINEER 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 Narrative 10/24/2022 2:39 PM SECURITY OPERATIONS ENGINEER EXAM: ??FL UPPER GI SINGLE CONTRAST WITHOUT [...] Merlyn Cobos M.D. IMG FLU OROSCOPY PROCEDURES * Bone Alkaline Phosphatase (10/17/2022 10:01 AM SECURITY OPERATIONS ENGINEER) Pathologist [facility] Bone Alkaline Phosphatase, S 14 mcg/L 10/17/2022 3:48 PM SECURITY OPERATIONS ENGINEER [facility] Comment: ----REFERENCE VALUE---- <=14 (Premenopausal) <=22 (Postmenopausal) ----ADDITIONAL INFORMATION---- Liver-derived alkaline phosphatase (ALP) increases apparent measured bone alkaline phosphatase (BAP) in this assay by 2.5 mcg/L to 5.8 mcg/L for every 100 U/L of liver ALP. ??Accordingly, serum specimens with significant elevations of liver ALP activity may yield artificially elevated results in the BAP assay. Blood (Blood, Venous) 10/17/2022 10:01 AM SECURITY OPERATIONS ENGINEER 10/17/2022 2:40 PM SECURITY OPERATIONS ENGINEER Merlyn Cobos M.D. LAB BLO OD ADD-ON Performing Organization Address [facility] Co de Phone Number [facility] [address] [place] [address] [facility] [address] [place] [address] * (ABNORMAL) Parathyroid Hormone (PTH) (10/17/2022 10:01 AM SECURITY OPERATIONS ENGINEER) Pathologist [facility] Parathyroid Hormone (PTH), S 86(H) 15 - 65 pg/mL 10/17/2022 12:01 PM SECURITY OPERATIONS ENGINEER DTL Blood (Blood, Venous) 10/17/2022 10:01 AM SECURITY OPERATIONS ENGINEER 10/17/2022 10:38 AM SECURITY OPERATIONS ENGINEER Merlyn Cobos M.D. LAB BLO OD ADD-ON Performing Organization Address [facility] Co de Phone Number [facility] [address] [place], [place] [id number] [place] [address] [facility] [address] [place] [address] * (ABNORMAL) CBC with Differential, Blood (10/17/2022 10:01 AM SECURITY OPERATIONS ENGINEER) Pathologist [facility] Hemoglobin 13.5 11.6 - 15.0 g/dL 10/17/2022 10:38 AM SECURITY OPERATIONS ENGINEER DTL Hematocrit 43.8 35.5 - 44.9 % 10/17/2022 10:38 AM SECURITY OPERATIONS ENGINEER DTL Erythrocytes 4.62 3.92 - 5.13 x10(12)/L 10/17/2022 10:38 AM SECURITY OPERATIONS ENGINEER DTL MCV 94.8 78.2 - 97.9 fL 10/17/2022 10:38 AM SECURITY OPERATIONS ENGINEER DTL RBC Distrib Width 13.1 12.2 - 16.1 % 10/17/2022 10:38 AM SECURITY OPERATIONS ENGINEER DTL Platelet Count 216 157 - 371 x10(9)/L 10/17/2022 10:38 AM SECURITY OPERATIONS ENGINEER DTL Leukocytes 5.7 3.4 - 9.6 x10(9)/L 10/17/2022 10:38 AM SECURITY OPERATIONS ENGINEER DTL Neutrophils 4.18 1.56 - 6.45 x10(9)/L 10/17/2022 10:38 AM SECURITY OPERATIONS ENGINEER DTL Lymphocytes 0.84(L) 0.95 - 3.07 x10(9)/L 10/17/2022 10:38 AM SECURITY OPERATIONS ENGINEER DTL Monocytes 0.56 0.26 - 0.81 x10(9)/L 10/17/2022 10:38 AM SECURITY OPERATIONS ENGINEER DTL Eosinophils 0.06 0.03 - 0.48 x10(9)/L 10/17/2022 10:38 AM SECURITY OPERATIONS ENGINEER DTL Basophils 0.05 0.01 - 0.08 x10(9)/L 10/17/2022 10:38 AM SECURITY OPERATIONS ENGINEER DTL Blood (Blood, Venous) 10/17/2022 10:01 AM SECURITY OPERATIONS ENGINEER 10/17/2022 10:26 AM SECURITY OPERATIONS ENGINEER Merlyn Cobos M.D. LAB BLO OD ADD-ON Performing Organization Address City/[facility]/ZIP Co de Phone Number [facility] [address] [place] [address], [facility] [address] [place] [address] * Vitamin B12 Assay (10/17/2022 10:01 AM SECURITY OPERATIONS ENGINEER) [facility] Vitamin B12 Assay, S 355 180 - 914 ng/L 10/17/2022 12:10 PM SECURITY OPERATIONS ENGINEER DTL Comment: ----ADDITIONAL INFORMATION---- In patients being evaluated for vitamin B12 deficiency who have intrinsic factor blocking antibodies (IFBA), false elevations of B12 may occur due to IFBA interference thus potentially obscuring a physiological deficiency of B12. If observed B12 concentrations are discordant with clinical presentation, measurement of methylmalonic acid (MMA) should be considered. Blood (Blood, Venous) 10/17/2022 10:01 AM SECURITY OPERATIONS ENGINEER 10/17/2022 10:38 AM SECURITY OPERATIONS ENGINEER Merlyn Cobos M.D. LAB BLO OD ADD-ON [facility] [address] [place], [place] [address] DTL [facility] [address] [place] [address] * Lipid Panel (10/17/2022 10:01 AM SECURITY OPERATIONS ENGINEER) Triglycerides 87 mg/dL 10/17/2022 11:08 AM SECURITY OPERATIONS ENGINEER DTL Comment: ----REFERENCE VALUE---- Normal: <150 mg/dL Borderline High: 150-199 mg/dL High: 200-499 mg/dL Very High: > or =500 mg/dL Cholesterol, Total 179 mg/dL 2022 11:08 AM SECURITY OPERATIONS ENGINEER DTL Comment: ----REFERENCE VALUE---- Desirable: < 200 mg/dL Borderline High: 200 - 239 mg/dL High: > or = 240 mg/dL Cholesterol, LDL, Calculated 71 mg/dL 10/17/2022 11:08 AM SECURITY OPERATIONS ENGINEER DTL Comment: ----REFERENCE VALUE---- Desirable: <100 mg/dL Above Desirable: 100-129 mg/dL Borderline High: 130-159 mg/dL High: 160-189 mg/dL Very High: >=190 mg/dL ----ADDITIONAL INFORMATION---- LDL cholesterol calculated using the Unger/NIH equation. Cholesterol, HDL, S 92 >=50 mg/dL 10/17/2022 11:08 AM SECURITY OPERATIONS ENGINEER DTL Cholesterol, Non-HDL, Calculated 87 mg/dL 10/17/2022 11:08 AM SECURITY OPERATIONS ENGINEER DTL Comment: ----REFERENCE VALUE---- Desirable: <130 mg/dL Above Desirable: 130-159 mg/dL Borderline High: 160-189 mg/dL High: 190-219 mg/dL Very High: > or =220 mg/dL Fasting (8 HR or more) yes 10/17/2022 10:41 AM SECURITY OPERATIONS ENGINEER DTL Blood (Blood, Venous) 10/17/2022 10:01 AM SECURITY OPERATIONS ENGINEER 10/17/2022 10:41 AM SECURITY OPERATIONS ENGINEER Merlyn Cobos M.D. LAB BLO OD ADD-ON [facility] [address] [place] [address], [place] [facility] [address] [place] [address] * Hemoglobin A1c (10/17/2022 10:01 AM SECURITY OPERATIONS ENGINEER) Pathologist [facility] Hemoglobin A1c, B 5.3 4.0 - 5.6 % 10/17/2022 11:01 AM SECURITY OPERATIONS ENGINEER DTL Blood (Blood, Venous) 10/17/2022 10:01 AM SECURITY OPERATIONS ENGINEER 10/17/2022 10:26 AM SECURITY OPERATIONS ENGINEER Merlyn Cobos M.D. LAB BLO OD ADD-ON [facility] [address] [place] [address], [facility] [address] [place] [address] * Comprehensive Metabolic Panel (10/17/2022 10:01 AM SECURITY OPERATIONS ENGINEER) [facility] Potassium, S 4.5 3.6 - 5.2 mmol/L 10/17/2022 11:02 AM SECURITY OPERATIONS ENGINEER DTL Sodium, S 141 135 - 145 mmol/L 10/17/2022 11:02 AM SECURITY OPERATIONS ENGINEER DTL Chloride, S 106 98 - 107 mmol/L 10/17/2022 11:02 AM SECURITY OPERATIONS ENGINEER DTL Bicarbonate, S 26 22 - 29 mmol/L 10/17/2022 11:02 AM SECURITY OPERATIONS ENGINEER DTL Anion Gap 9 7 - 15 10/17/2022 11:02 AM SECURITY OPERATIONS ENGINEER DTL BUN (Blood Urea Nitrogen), S 12 6 - 21 mg/dL 10/17/2022 11:02 AM SECURITY OPERATIONS ENGINEER DTL Creatinine 0.59 0.59 - 1.04 mg/dL 10/17/2022 11:02 AM SECURITY OPERATIONS ENGINEER DTL Estimated GFR (eGFR) >90 >=60 mL/min/BS A 10/17/2022 11:02 AM SECURITY OPERATIONS ENGINEER DTL Comment: Estimated GFR calculated using the 2020 CKD_EPI creatinine equation. Calcium, Total, S 9.7 8.8 - 10.2 mg/dL 10/17/2022 11:02 AM SECURITY OPERATIONS ENGINEER DTL Glucose, S 100 70 - 140 mg/dL 10/17/2022 11:02 AM SECURITY OPERATIONS ENGINEER DTL Protein, Total, S 6.8 6.3 - 7.9 g/dL 10/17/2022 11:02 AM SECURITY OPERATIONS ENGINEER DTL Albumin, S 4.5 3.5 - 5.0 g/dL 10/17/2022 11:02 AM SECURITY OPERATIONS ENGINEER DTL Aspartate Aminotransferase (AST), S 23 8 - 43 U/L 10/17/2022 11:02 AM SECURITY OPERATIONS ENGINEER DTL Alkaline Phosphatase, S 83 35 - 104 U/L 10/17/2022 11:02 AM SECURITY OPERATIONS ENGINEER DTL Alanine Aminotransferase (ALT), S 23 7 - 45 U/L 10/17/2022 11:02 AM SECURITY OPERATIONS ENGINEER DTL Bilirubin, Total, S 0.3 <=1.2 mg/dL 10/17/2022 11:02 AM SECURITY OPERATIONS ENGINEER DTL Blood (Blood, Venous) 10/17/2022 10:01 AM SECURITY OPERATIONS ENGINEER 10/17/2022 10:38 AM SECURITY OPERATIONS ENGINEER Merlyn Cobos M.D. LAB BLO OD ADD-ON [facility] [address] [place] [address], [facility] [address] [place] [address] * Ferritin (10/17/2022 10:01 AM SECURITY OPERATIONS ENGINEER) Ferritin, S 15 11 - 307 mcg/L 10/17/2022 11:57 AM SECURITY OPERATIONS ENGINEER DTL Blood (Blood, Venous) 10/17/2022 10:01 AM SECURITY OPERATIONS ENGINEER 10/17/2022 10:41 AM SECURITY OPERATIONS ENGINEER Merlyn Cobos M.D. LAB BLO OD ADD-ON [facility] [address] [place] [address], [facility] DTL [facility] [address] [place] [address] * Iron and Total Iron-Binding Capacity (10/17/2022 10:01 AM SECURITY OPERATIONS ENGINEER) Pathologist [facility] Iron 58 35 - 145 mcg/dL 10/17/2022 11:08 AM SECURITY OPERATIONS ENGINEER DTL Total Iron Binding Capacity 341 250 - 400 mcg/dL 10/17/2022 11:08 AM SECURITY OPERATIONS ENGINEER DTL Percent Saturation 17 14 - 50 % 10/17/2022 11:08 AM SECURITY OPERATIONS ENGINEER DT Blood (Blood, Venous) 10/17/2022 10:01 AM SECURITY OPERATIONS ENGINEER 10/17/2022 10:41 AM SECURITY OPERATIONS ENGINEER Merlyn Cobos M.D. LAB BLO OD ADD-ON Performing Organization Address [facility] Co de Phone Number [facility] [address] [place] [address], [facility] [address] [place] [address] * (ABNORMAL) 25-Hydroxyvitamin D2 and D3 (10/17/2022 10:01 AM SECURITY OPERATIONS ENGINEER) Pathologist [facility] 25-Hydroxy D2 <4.0 ng/mL 10/19/2022 8:34 AM SECURITY OPERATIONS ENGINEER SDS 25-Hydroxy D3 18 ng/mL 10/19/2022 8:34 AM SECURITY OPERATIONS ENGINEER SDS 25-Hydroxy D Total 18(L) ng/mL 2022 8:34 AM SECURITY OPERATIONS ENGINEER SDS Comment: Interpretation: 10-19 ng/mL (mild to moderate deficiency) ----REFERENCE VALUE---- 25-HYDROXY D TOTAL (D2+D3) Optimum levels in the healthy population are 20-50, patients with bone disease may benefit from higher levels within this range. ----ADDITIONAL INFORMATION---- This test was developed and its performance characteristics determined by [facility] in a manner consistent with CLIA requirements. This test has not been cleared or approved by the U.S. Food and Drug Administration. Blood (Blood, Venous) 10/17/2022 10:01 AM SECURITY OPERATIONS ENGINEER 10/18/2022 7:00 AM SECURITY OPERATIONS ENGINEER Merlyn Cobos M.D. LAB BLO OD ADD-ON [facility] [address] [place] [address] [facility] [address] [place] [address] documented in this encounter Visit Diagnoses Diagnosis Bypass Gastric Suellen En Y Status Post- Primary Nausea And Vomiting Stone Kidney Personal History Osteoporosis Nausea And Vomiting documented in this encounter Additional Health Concerns Assessment Noted Time PHQ-9 Depression Total Score: 0 01/16/20 14 9:12 AM CDT documented as of this encounter
--- OUTSIDE RECORDS SUMMARY | 2023-10-15 07:13 | XMS_ITS | Clinical Summary ---
Author Name Unknown Organization [facility] Address [address] [place] [address] Care Team Providers Care Service Order Clerk Name Role Phone Feliciano Uribe MD Primary Care Provider + [phone] Source Comments You are receiving this document as you are listed as the primary care provider,follow-up provider, or the patient has been referred to you for consultation.This is in compliance with the Medicare and[facility] E[facility] Incentive Program,which states Providers who transition their patient to another setting of careor provider of care or refers their patient to another provider of care shouldprovide summary care record for each transition of care or referral. [facility] Allergies No known active allergies Medications Medication Sig Dispensed Refills Start Date End Date Status amLODIPine (NORVASC) 10 MG tablet Take 1 Tablet by mouth daily. 90 Tablet 3 03/27/2019 Active atorvastatin (LIPITOR) 10 MG tablet Take 1 Tablet by mouth daily. 11 03/27/2019 Active chlorthalidone (HYGROTON) 50 MG tablet Take 1 Tablet by mouth daily. 90 Tablet 3 03/27/2019 Active FLUoxetine (PROZAC) 40 MG capsule Take 1 Capsule by mouth daily. 90 Capsule 3 03/27/2019 Active nitroglycerin (NITROSTAT) 0.[address] 1 Tablet under tongue every 5 minutes as needed for Chest Pain. If no relief after 5 min call 911;continue 1 tab every 5 min max 3 tab 100 Tablet 11 03/27/2019 Active valACYclovir (VALTREX) 1 g tablet Take 1 Tablet by mouth two times a day. 03/27/2019 Active Cholecalciferol (VITAMIN D3) 23509 units TABS 03/27/2019 Active levothyroxine (SYNTHROID) 137 MCG tablet Take 175 mcg by mouth daily. 90 Tablet 3 03/27/2019 Active multivitamin (THERAGRAN) tablet Take 1 Tablet by mouth daily. 30 Tablet 11 03/27/2019 Active calcium carbonate oyster shell (OYSTER SHELL) 500 mg elemental Ca tablet Take 1 Tablet by mouth two times a day. 03/27/2019 Active drug not in computer Cyanocobalamin (vitamin B 12) 03/27/2019 Active alendronate (FOSAMAX) 70 MG tablet Take 1 Tablet by mouth once every week. Take 30 minutes before first kwtg-gandh-ygdxdchhn n. Avoid lying down for 30 minutes. 12 Tablet 3 04/07/2020 Active lisinopril (ZESTRIL) 10 MG tablet Take 1 Tablet by mouth daily. 90 Tablet 3 04/07/2020 Active celecoxib (CELEBREX) 100 MG capsule Take 1 Capsule by mouth two times daily as needed for Pain. 180 Capsule 2 04/07/2020 Active predniSONE (DELTASONE) 20 MG tablet 1-2 tabs daily for 1-10 days for attack of pseudogout 30 Tablet 04/07/2020 Active Active Problems Problem Noted Date Diagnosed Date Primary osteoarthritis of left knee 04/07/2020 [...] drink = 0.6 oz pur e alcohol) Sex and Gender Information Value Date Recorded Sex Assigned at Not on file Gender Identity Not on file Sexual Orientation Not on file Last Filed Vital Signs Vital Sign Reading Time Taken Comments Blood Pressure 181/88 04/07/2020 9:21 AM CDT Pulse 78 04/07/2020 9:21 AM CDT Temperature 36.1 ??C (96.9 ??F) 04/07/2020 9:21 AM CD T Respiratory Rate - - Oxygen Saturation - - Inhaled Oxygen Concentration - - Weight 60.8 kg (134 lb) 04/07/2020 9:21 AM CDT Height 152 cm (4' 11.84) 04/07/2019 12:52 PM CD T Body Mass Index 26.31 04/07/2019 12:52 PM CDT Plan of Treatment Health Maintenance Due Date Last Done Comments Hep C Screening (Preventive Services) 1945 Medicare Annual Wellness Visit 1945 Zoster/Shingles (1 of 2) 1996 Dexa 2011 DTaP/Tdap/Td (4 - Tdap) 05/02/2022 05/02/20 12, 03/10/2005, 01/30/1980 COVID-19 Vaccine ( season) 2023 11/12/2020, 10/15/2020 Influenza (#1) 2023 06/21/2020, 1109/2017, 05/02/2017, Additional history exists Pneumococcal 65+ Yrs Completed 01/12/2015, 11/28/2013, 08/27/2007 HepA Aged Out No longer eligi ble based on patient's age to complete this topic HepB Aged Out No longer eligi ble based on patient's age to complete this topic Hib Aged Out No longer eligi ble based on patient's age to complete this topic IPV (Polio) Aged Out No longer eligi ble based on patient's age to complete this topic MCV4 Aged Out No longer eligi ble based on patient's age to complete this topic Care Teams Service Order Clerk Relationship Specialty Start Date End Date Feliciano Uribe MD [address] [place] [address] PCP - General 02/17/19
--- OUTSIDE RECORDS SUMMARY | 2023-10-15 07:13 | XMS_ITS | Encounter Summary ---
Author Name Unknown Organization [facility] Address [address] [place] [address] Care Team Providers Care Calender Operator Name Role Phone Feliciano Uribe MD Primary Care Provider + [phone] Encounter Details Date Type Department Care Team (Late st Contact Info) Description 07/04/2023 Notes/Orders [facility] [address] Rheumatology [address] [facility] [place], [place] [id number] [place] [address] [place], [place] [address] Cervical pain (Primary Dx) Social History Tobacco Use Types Packs/Day Years Used Date Smoking Tobacco: Never Smokeless Tobacco: Never Alcohol Use Standard Drinks/Week Comments Not Currently 0 (1 standard drink = 0.6 oz pur e alcohol) Sex and Gender Information Value Date Recorded Sex Assigned at Not on file Gender Identity Not on file Sexual Orientation Not on file documented as of this encounter Plan of Treatment Not on file documented as of this encounter Visit Diagnoses Diagnosis Cervical pain- Primary Cervicalgia documented in this encounter Care Teams Calender Operator Relationship Specialty Start Date End Date Feliciano Uribe MD [address] [place] [address] PCP - General 02/17/19 documented as of this encounter
--- OUTSIDE RECORDS SUMMARY | 2023-10-15 07:13 | XMS_ITS | Encounter Summary ---
Author Name Unknown Organization [facility] Address [address] [place] [address] Care Team Providers Care Hardness Inspector Name Role Phone Unavailable Primary Care Provider Unavailabl e Reason for Visit * Reason Comments Skin Check * Appointment Request (Routine) - Closed Specialty Diagnoses / Procedures Referred By Amena prasad Referred To Contact Dermatology Referral ID Status Reason Start Date Expiration Date Visits Re quested Visits Authorized [id number] Closed 05/02/2022 05/02/2023 1 1 Encounter Details Date Type Department Care Team (Late st Contact Info) Description 10/16/2022 11:15 AM CONSULTING NURSE Office Visit Department of Dermatology in [address] [phone] Betty Carr M.D. [address] [place] [phone] Keratosis Actinic (Primary Dx); Nevi Multiple; Keratosis Seborrheic Social History Tobacco Use Types Packs/Day Years [...] often do you attend chur ch or adventism services? More than 4 times per year 10/10/2022 Do you belong to any clubs o r organizations such as scientologist groups, unions, fraternal or athletic groups, or [...] and heating? Not hard at all 10/10/2022 [facility] - [...] place to sleep or slept in a intermediate (including now)? No 10/10/2022 Nutrition Answer Date [...] Sex Assigned at Female 10/10/2022 4:07 PM CONSULTING NURSE Gender Identity Female 07/16/2018 12:55 PM CONSULTING NURSE Sexual Orientation Straight 07/16/2018 12 :55 PM CONSULTING NURSE documented as of this encounter Progress Notes * Betty Carr M.D. - 10/16/2022 11:15 AM CST SUBJECTIVE CHIEF COMPLAINT / REASON FOR VISIT Full skin cancer screening HISTORY OF PRESENT ILLNESS Gato Jimenez is a pleasant 77 y.o. female who presents for a full skin cancer screening.The patient was initially seen by me in Dermatology clinic in 2018. She denies a personal history of skin cancer or family history for melanoma. She uses sunscreen. She would particularly like us to evaluate several rough lesions involving her face today. She states she has picked at them. MEDICAL HISTORY Negative for skin cancer History of rosacea History of knee replacement FAMILY HISTORY Negative for melanoma OBJECTIVE PHYSICAL EXAMINATION General: Awake, alert, in no acute distress, and with appropriate affect. Eyes: No scleral injection or icterus. No eyelid abnormalities. Lymph: No lower extremity edema. Skin: I have examined the scalp, face, neck, chest, abdomen, back, bilateral upper extremities, andbilateral lower extremities. My scribe (Koki) served as a early childhood education worker for the entirety of the exam. Examination today reveals actinic keratoses, including 1 right cheek, 1 right jawline, 1 left jawline, 1 right dorsal wrist and 1 left dorsal wrist. Examination of the face, trunk and extremities reveals multiple benign-appearing nevi, lentigines and seborrheic keratoses. Examination today reveals no suspicious lesions for skin cancer. ASSESSMENT / PLAN #1 Right cheek,right jawline, right dorsal wrist and left dorsal wrist: Actinic keratosis x 5 Given the precancerous nature of this lesion(s), treatment is medically indicated. After discussionof the risks, benefits and alternatives to treatment with cryotherapy, informed consent was obtained. We treated a total of five lesion(s) with two 18-02-sseobj freeze-thaw cycles of liquid nitrogen c ryotherapy. The patient tolerated the procedure well. Aftercare instructions were provided in written and verbal form to the patient. Should any of these lesions recur, the patient should return for biopsy or further evaluation. Follow up in 1-2 months for recheck if these areas do not complete resolve. #2 Face, trunk and extremities: Multiple nevi and lentigines The ABCDE criteria for melanoma was reviewed with the patient. None of the patient's nevi reach theclinical threshold for biopsy. I recommend continued sun protection, sunscreen (SPF 30 or greater),self-skin examinations, and observation. Should any of the patient's nevi change in size, color, texture, or shape or develop symptoms such as itching or bleeding, I recommend an immediate return visit for reassessment. #3 Face, trunk and extremities: Seborrheic keratosis The benign nature of the skin lesion(s) was discussed with the patient. No treatment is required. Irecommend continued observation. Should this lesion change in size, color, texture, or shape or develop symptoms such as itching or bleeding, I recommend an immediate return visit for reassessment. PATIENT EDUCATION: Ready to learn. No apparent learning barriers were identified. Learning preferences include listening. Explained diagnosis and treatment plan; patient/guardian of patient expressed understanding of the content. By signing my name below, I, Koki Clarke, attest that this documentation has been prepared underthe direction and in the presence of Betty Carr M.D. Electronically Signed: loreto Allan. 10/10/2022. 9:46 AM CONSULTING NURSE. I, Betty Carr M.D., personally performed the services described in this documentation. All medical record entries made by the scribe were at my direction and in my presence. I have reviewed the chart and discharge instructions (if applicable) and agree that the record reflects my personal performance and is accurate and complete. Betty Carr M.D. Scribed for Betty Carr M.D. by Koki Clarke, on 10/16/2022, 11:44 AM CONSULTING NURSE. ULTING NURSE documented in this encounter Plan of Treatment Not on file documented as of this encounter Visit Diagnoses Diagnosis Keratosis Actinic- Primary Nevi Multiple Keratosis Seborrheic documented in this encounter Additional Health Concerns Assessment Noted Time PHQ-9 Depression Total Score: 0 01/16/20 14 9:12 AM CDT documented as of this encounter
--- OUTSIDE RECORDS SUMMARY | 2023-10-15 07:13 | XMS_ITS | Clinical Summary ---
Author Name Unknown Organization [facility] Address [place], [place] [address] Care Team Providers Care Asian Studies Program Chair Name Role Phone Feliciano Uribe MD Primary Care Provider [phone] Allergies No known active allergies Medications Medication Sig Dispensed Refills Start Date End Date Status atorvastatin (LIPITOR) 10 mg tablet Take 10 mg by mouth at bedtime. 0 07/04/2022 Active cholecalciferol (VITAMIN D3) 50,000 unit capsule Take 50,000 units by mouth once weekly. 0 06/26/2022 Active FLUoxetine (PROZAC) 40 mg capsule Take 40 mg by mouth once daily. 0 07/04/2022 Active nitroglycerin (NITROSTAT) 0.[address] 0.4 mg under the tongue every 5 minutes if needed. 0 11/21/2021 Active prednisoLONE acetate 1% ophthalmic (ECONOPRED PLUS, PRED FORTE, OMNIPRED) suspension As directed 1 Drop four times daily. 0 Active WalkerIndications:Ar thritis of knee, right Walker with front wheels for home use. 1 Each 0 07/27/2022 Active metoprolol succinate (TOPROL XL) 50 mg sustained-release tablet Take 50 mg by mouth once daily. 0 09/09/2022 Active omeprazole (PRILOSEC) 40 mg Delayed-Release capsule Take 40 mg by mouth once daily before a meal. 0 11/01/2022 Active levothyroxine (SYNTHROID) 150 mcg tablet Take 1 Tablet (150 mcg) by mouth once daily. 0 09/12/2023 Active lisinopriL (PRINIVIL; ZESTRIL) 10 mg tabletIndications:Hy pertension Take 1 Tablet (10 mg) by mouth two times daily. 180 Tablet 3 09/14/2023 Active metoprolol tartrate (LOPRESSOR) 25 mg tabletIndications:SV T (supraventricular tachycardia) Take 1 Tablet (25 mg) by mouth two times daily. 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 07/22/2022 CAD (coronary artery disease) 04/07/2019 Hyperlipidemia 04/07/2019 Hypothyroidism 04/07/2019 Primary osteoarthritis of both ankles 04/07/2019 Pseudogout 04/07/2019 Anxiety 04/07/2019 Primary hypertension Gastric bypass status for obesity Encounters Date Type Department Care Team Description 09/14/2023 2:30 PM BEAUTY CULTURIST APPRENTICE Office Visit [facility] [address] [place] [address] Ethan Abrams MD from Last 3 Months Social History Tobacco Use Types Packs/Day Years Used Date Smoking Tobacco: Never Smokeless Tobacco: Never Tobacco Cessation:Counseling Given: Not Answered Alcohol Use Standard Drinks/Week Comments Yes 0 (1 standard drink = 0.6 oz pur e alcohol) occ wine Social Connections Answer Date Recorded Frequency of Communication with Friends and Fami ly Not on file 09/09/2022 Sex and Gender Information Value Date Recorded Sex Assigned at Not on file Gender Identity Not on file Sexual Orientation Not on file Obstetrics History Last Filed Vital Signs Vital Sign Reading Time Taken Comments Blood Pressure 144/68 07/27/2022 4:00 PM BEAUTY CULTURIST APPRENTICE Pulse 63 07/27/2022 4:00 PM BEAUTY CULTURIST APPRENTICE Temperature 36.7 ??C (98 ??F) 07/27/2022 4:00 PM BEAUTY CULTURIST APPRENTICE Respiratory Rate 16 07/27/2022 4:00 PM BEAUTY CULTURIST APPRENTICE Oxygen Saturation 98% 07/27/2022 4:00 PM BEAUTY CULTURIST APPRENTICE Inhaled Oxygen Concentration - - Weight 66.9 kg (147 lb 7.8 oz) 07/23/2022 12:00 AM BEAUTY CULTURIST APPRENTICE Height 177.8 cm (5' 10) 07/22/2022 1:00 PM BEAUTY CULTURIST APPRENTICE Body Mass Index 21.16 07/22/2022 1:00 PM BEAUTY CULTURIST APPRENTICE Plan of Treatment Upcoming Encounters Date Type Department Care Team (Late st Contact Info) Description 12/11/2023 8:30 AM CDT Office Visit [facility] [address] [place] [address] Ethan Abrams MD [address] [place] [id number] Health Maintenance Due Date Last Done Comments Tdap 1956 Depression screening for age 12+ 1958 BMI (ht and wt on same day) for age 18+ 1964 Hepatitis C screening for age 18-79 1964 Tetanus booster 1966 Zoster (shingles) series for age 50+ (1 of 2) 1996 DEXA/DXA scan for age 65+ 2011 Medicare Wellness for age 65+ 2011 Pneumococcal series for age 65+ (1 of 1 - PCV) 2011 COVID-19 vaccine series (2022-24 season) 2023 11/12/2020, 10/15/2020 Influenza for age 65+ 04/27/2023 Advance Directives Latest Code Status on File Code Status Date Activated Date Inactivated Comments Full Code 07/22/2022 1:18 PM 07/27/2022 7:46 PM Question Answer Comments Code Status Discussion: Reviewed Preferences Care Teams Asian Studies Program Chair Relationship Specialty Start Date End Date Feliciano Uribe MD [address] [place] [phone] PCP - General Family Practice 09/01/22
--- OUTSIDE RECORDS SUMMARY | 2023-10-15 07:13 | XMS_ITS | Encounter Summary ---
Author Name Unknown Organization [facility] Address [address] [place] [address] Care Team Providers Care Plywood Layup Line Back Feeder Name Role Phone Unavailable Primary Care Provider Unavailabl e Reason for Referral * Outpatient (Routine) - Closed Specialty Diagnoses / Procedures Referred By Amena prasad Referred To Contact Endocrinology Diagnoses Bypass Gastric Suellen En Y Status Post Tucker Zavaleta M.D. [address] [place] [address] [facility] Referral ID Status Reason Start Date Expiration Date Visits Re quested Visits Authorized [id number] Closed 10/06/2022 10/06/2023 1 1 Scheduling Instructions Should be scheduled first before Nutrition consult. Can be scheduled after Psych if visits are within a week of eachother HEALTH CARE WORKER Encounter Details Date Type Department Care Team (Late st Contact Info) Description 10/05/2022 Orders Only Division of Endocrinology in [place], [place] [address] [place] [phone] Sally Pinzon, RMaddieN. Bypass Gastric Suellen En Y Status Post (Primary Dx) Social History Tobacco Use Types [...] often do you attend chur ch or orthodoxy services? More than 4 times per year 10/10/2022 Do you belong to any clubs o r organizations such as druze groups, unions, fraternal or athletic groups, or [...] and heating? Not hard at all 10/10/2022 [facility] - Occupational Stress [...] place to sleep or slept in a halfway (including now)? No 10/10/2022 Nutrition Answer Date Recorded Nutrition: EVOO Fat Source No 10/10 On average, how many serving s of fruits and vegetables do you eat per day (serving size is equal to 1 cup or approximately the size of a tennis ball)? 2-3 10/10/2022 Dental Answer Date Recorded Dental: Regular Dentist Yes 10/10/19 Employment Answer Date Recorded Employment status Retired 10/10/2022 Sex and Gender Information Value Date Recorded Sex Assigned at Female 10/10/2022 4:07 PM HOME HEALTH CARE WORKER Gender Identity Female 07/16/2018 12:55 PM HOME HEALTH CARE WORKER Sexual Orientation Straight 07/16/2018 12 :55 PM HOME HEALTH CARE WORKER documented as of this encounter Plan of Treatment Scheduled Referrals Name Type Priority Associated Diagnoses Order Schedule Endocrinology - Bariatric consult (clinic) Outpatient Referral Routine Bypass Gastric Suellen En Y Status Post Expected: 10/05/2022 (Approximate), Expires: 01/03/2024 documented as of this encounter Visit Diagnoses Diagnosis Bypass Gastric Suellen En Y Status Post- Primary documented in this encounter Additional Health Concerns Assessment Noted Time PHQ-9 Depression Total Score: 0 01/16/20 14 9:12 AM CDT documented as of this encounter
--- OUTSIDE RECORDS SUMMARY | 2023-10-15 07:13 | XMS_ITS | Encounter Summary ---
Author Name Unknown Organization [facility] Address [address] [place] [address] Care Team Providers Care Cabin Cleaner Name Role Phone Feliciano Uribe MD Primary Care Provider + [phone] Reason for Referral * Consult/Transfer Care (Routine) - New Request Specialty Diagnoses / Procedures Referred By Amena prasad Referred To Contact Diagn[place] [address] [place] [address] Referral ID Status Reason Start Date Expiration Date V isits Requested Visits Authorized [id number] New Request 07/04/2023 10/02/2024 1 1 Scheduling Instructions Your clinician has recommended an appointment with Jennifer aVsquez. You may call [phone] for help scheduling your appointment. We suggest you call your health insurance company about your coverage and benefits for this appointment. Question Answer Appointment Urgency? Non-Urgent ERY STACKER Encounter Details Date Type Department Care Team (Late st Contact Info) Description 07/04/2023 Notes/Orders [facility] [address] Rheumatology [address] [place], [place] [phone] [place] [address] [place] [address] Cervical pain (Primary Dx) Social History Tobacco [...] Scheduled Referrals Name Type Priority Associated Diagnoses Orde r Schedule Rheumatology Consult-Adults Referral Routine Cervical pain Ordered: 07/04/2023 documented as of this encounter Visit Diagnoses Diagnosis Cervical pain- Primary Cervicalgia documented in this encounter Care Teams Cabin Cleaner Relationship Specialty Start Date End Date Feliciano Uribe MD [address] [place] [address] PCP - General 02/17/19 documented as of this encounter
[2023-10-15 07:41] LABS: Creatinine* 0.5 mg/dL (0.5-1.5); Estimated Glomerular Filt Rate 97 ml/min
--- NOTE | 2023-10-15 08:00 | CT_ITS ---
Final Report Patient: PRASHANT PARTIDA Facility:?[facility] Patient ID:?[id number] Site Patient ID:?[id number]. Site :?1945 Study:?CT Abdomen/Pelvis W/ 70CC ISOVUE 370-10/15/2023 8:31:01 AM Ordering Physician:MADELYN Final Report: Indication: Renal cyst Technique: CT Abdomen/Pelvis W/ 70CC ISOVUE 370 Please note that all CT scans at this facility use dose modulation, iterative reconstruction, and/or weight-based dosing when appropriate to reduce radiation dose to as low as reasonably achievable. Comparison: 07/22/2022 Findings: Mild dependent areas of atelectasis are present within both lung bases. There is no pleural effusion. No intrahepatic mass. The gallbladder is absent. Normal adrenal glands. Spleen is unremarkable. The pancreas is atrophied. There is no biliary obstruction. Atherosclerotic changes. Extrarenal pelvis noted bilaterally. Simple cyst at the lateral aspect of the right kidney measures 1.3 cm. The ureters are within normal limits. Normal bladder. Gaseous distention colonic loops in the upper abdomen. Increased stool within the right colon. The appendix is normal. No adenopathy, free air, free fluid or abscess. Degenerative disc disease and facet degeneration. No vertebral body compression fracture. Degenerative joint disease at both hips with chondrocalcinosis. Chondrocalcinosis also associated with the proximal hamstring tendon insertions and symphysis pubis. Postop changes gastric bypass. Impression: Simple right renal cyst. No suspicious renal mass. No hydronephrosis. Please note that all CT scans at this facility use dose modulation, iterative reconstruction, and/or weight-based dosing when appropriate to reduce radiation dose to as low as reasonably achievable. Dictated by Jah Alvarez MD @ 10/15/2023 9:21:09 AM (Electronic Signature)
== END 2023-10-15 07:10 | disposition home or self-care (01) ==
LOC: CT 07:10
PROVIDERS: PCP Family Medicine; Visit Provider Family Medicine
DX: N28.1 Cyst of kidney, acquired (principal); N13.4 Hydroureter
CPT/HCPCS: 36415; 74177; 82565; Q9967

== ENCOUNTER 2023-12-31 07:40 | Outpatient (CLI) | payer MEDICARE, BC, SELFPAY ==
--- OUTSIDE RECORDS SUMMARY | 2024-01-02 07:31 | XMS_ITS | Referral Summary ---
Author Name Unknown Organization [facility] Address [address] [place] [address] Care Team Providers Care Sieve Grader Tender Name Role Phone Feliciano Uribe MD Primary Care Provider Christina Roe PA-C Unavailable Christina Roe PA-C Unavailable Encounters Date Type Department Care Team Description 12/13/2023 Travel 12/13/2023 12:00 PM CDT Office Visit [facility] [address] [facility] [address] [place] [address] Christina Roe PA-C Polymyalgia rheumatica (H24) (Primary Dx); On prednisone therapy 12/07/[address] [facility] [address] [place] [address] Christina Roe PA-C Patient/info Update 11/18/2023 MyC Medical Advice [address] [address] Christina Roe PA-C Polyarthralgia; Myalgia 11/06/2023 Travel 11/06/2023 2:30 PM CDT Virtual Visit [facility] [address] [place] [phone] Christina Roe PA-C Myalgia (Primary Dx); Polyarthralgia; Joint stiffness 10/23/2023 MyC Medical Advice [facility] [address] [place] [address] 200 [place] [address] Christina Roe PA-C Appointment 10/18/2023 8:38 AM LIEUTENANT SHIFT SUPERVISOR - 10/18/2023 11:59 PM LIEUTENANT SHIFT SUPERVISOR Hospital Encounter [facility] [address] [place] [address] [address] [place] [address] Christina Roe PA-C Polyarthralgia; Myalgia; Joint stiffness Discharge Disposition: Home or Self Care 10/18/2023 8:20 AM LIEUTENANT SHIFT SUPERVISOR Lab [facility] [address] [place] [address] [address] [place] [address] Polyarthralgia; Myalgia; Joint stiffness 10/18/2023 Travel 10/18/2023 8:00 AM LIEUTENANT SHIFT SUPERVISOR Office Visit [facility] [address] [facility] [address] [place] [address] Christina Roe PA-C Polyarthralgia (Primary Dx); Myalgia; Joint stiffness from Last 3 Months Allergies Active Allergy Reactions Criticality Noted Date Comments Aspirin 11/06/2023 Contraindicated due to hx of gastric bypass Medications Medication Sig Dispensed Refills Start Date End Date Status amLODIPine (NORVASC) 10 MG tablet Take 1 tablet by mouth daily at 2 pm 10/14/2023 Active amoxicillin (AMOXIL) 500 MG capsule TAKE 4 CAPSULES BY MOUTH 1 HOUR BEFORE DENTAL APPOINTMENT FOR 1 DOSE 11/06/2022 Active atorvastatin (LIPITOR) 10 MG tablet Take 10 mg by mouth at bedtime Active D3-50 1.25 MG (01225 UT) capsule Take 1,250 mcg by mouth once a week Active FLUoxetine (PROZAC) 40 MG capsule Take 40 mg by mouth daily Active HYDROcodone-acet aminophen (NORCO) 5-325 MG tablet Take 1 tablet by mouth every 8 hours as needed for pain 12/27/2022 Active levothyroxine (SYNTHROID/LEVOT HROID) 150 MCG tablet Take 150 mcg by mouth daily Active lisinopril (ZESTRIL) 10 MG tablet Take 10 mg by mouth 2 times daily 09/14/2023 Active metoprolol tartrate (LOPRESSOR) 25 MG tablet Take 25 mg by mouth 2 times daily 09/14/2023 Active nitroGLYcerin (NITROSTAT) 0.[address] 0.4 mg under the tongue 11/21/2021 Active predniSONE (DELTASONE) 5 MG tabletIndication s:Polymyalgia rheumatica (H24),On prednisone therapy take 2 tablets daily for 2 weeks, then take 1 tablet and 4 of the 1mg tablets for a total daily dose of 9mg daily for 2 weeks, You will continue to decrease your dose by 1mg every 2 weeks 90 tablet 2 12/13/2023 Active predniSONE (DELTASONE) 1 MG tabletIndication s:Polymyalgia rheumatica (H24),On prednisone therapy Take 4 tablets in addition to 1 of the 5mg tablets for a total daily dose of 9mg daily for 2 weeks, You will continue to decrease your dose by 1mg every 2 weeks 120 tablet 2 12/13/2023 Active predniSONE (DELTASONE) 10 MG tabletIndication s:Polyarthralgia ,Myalgia Take 1 tablet (10 mg) by mouth daily Along with 5 mg tab for 1 week (15mg total) THEN take with 2.5mg tab (12.5 total) for additional 2 weeks pt has 5 10mg tabs on hand 16 tablet 11/19/2023 4 Discontinued predniSONE (DELTASONE) 5 MG tabletIndication s:Polyarthralgia ,Myalgia Take 1 tablet (5 mg) by mouth daily for 7 days, THEN 0.5 tablets (2.5 mg) daily for 14 days. 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 Provider to review Hyperlipidemia 03/14/2010 Primary hypertension 03/14/2010 Immunizations Name Administration Dates Next Due Influenza (IIV3) PF 05/05/2011 Social History Tobacco Use Types Packs/Day Years Used Date Smoking Tobacco: Never Passive Smoke Exposure: Past Smokeless Tobacco: Never Tobacco Cessation:Counseling Given: Not Answered Alcohol Use Standard Drinks/Week Comments Yes 0 (1 standard drink = 0.6 oz pur e alcohol) occasional wine Adolescent Education Answer Date Record ed Getting School Help Needed Not on file 05/31 Sex and Gender Information Value Date Recorded Sex Assigned at Not on file Gender Identity Not on file Sexual Orientation Not on file Last Filed Vital Signs Vital Sign Reading Time Taken Comments Blood Pressure 138/68 12/13/2023 11:07 AM CDT Pulse 61 12/13/2023 11:07 AM CDT Temperature - - Respiratory Rate - - Oxygen Saturation 97% 12/13/2023 11:07 AM CDT Inhaled Oxygen Concentration - - Weight 65.9 kg (145 lb 3.2 oz) 12/13/2023 11:07 AM CDT Height - - Body Mass Index - - Plan of Treatment Upcoming Encounters Date Type Department Care Team (Late st Contact Info) Description 03/20/2024 10:30 AM CDT Office Visit [address] [place] [phone] Christina Roe PA-C [address] [place] [address] Procedures Procedure Name Priority Date/Time Associated Diagnosis Comments XR HAND BILATERAL G/E 3 VIEWS Routine 10/18/2023 8:44 AM LIEUTENANT SHIFT SUPERVISOR Polyarthralgia Myalgia Joint stiffness ALDOLASE Routine 10/18/2023 8:35 AM LIEUTENANT SHIFT SUPERVISOR Polyarthralgia Myalgia Joint stiffness CK TOTAL Routine 10/18/2023 8:35 AM LIEUTENANT SHIFT SUPERVISOR Polyarthralgia Myalgia Joint stiffness SSB LA LEELEE ANTIBODY IGG Routine 10/18/2023 8:35 AM LIEUTENANT SHIFT SUPERVISOR Polyarthralgia Myalgia Joint stiffness SSA RO LEELEE ANTIBODY IGG Routine 10/18/2023 8:35 AM LIEUTENANT SHIFT SUPERVISOR Polyarthralgia Myalgia Joint stiffness RHEUMATOID FACTOR Routine 10/18/2023 8:3 5 AM LIEUTENANT SHIFT SUPERVISOR Polyarthralgia Myalgia Joint stiffness ERYTHROCYTE SEDIMENTATION RATE AUTO Routine 10/18/2023 8:35 AM LIEUTENANT SHIFT SUPERVISOR Polyarthralgia Myalgia Joint stiffness CYCLIC CITRULLINATED PEPTIDE ANTIBODY IGG Routine 10/18/2023 8:35 AM LIEUTENANT SHIFT SUPERVISOR Polyarthralgia Myalgia Joint stiffness CRP INFLAMMATION Routine 10/18/2023 8:35 AM LIEUTENANT SHIFT SUPERVISOR Polyarthralgia Myalgia Joint stiffness from Last 3 Months Results * XR Hand Bilateral G/E 3 Views (10/18/2023 8:44 AM LIEUTENANT SHIFT SUPERVISOR) Anatomical Region Laterality Modality Hand, Wrist Bilateral Digital Radiogra phy 10/18/2023 8:44 AM LIEUTENANT SHIFT SUPERVISOR Impressions 10/18/2023 12:27 PM LIEUTENANT SHIFT SUPERVISOR IMPRESSION: No fractures. 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 Mild chondrocalcinosis in the TFCCs bilaterally. Narrative 10/18/2023 12:27 PM LIEUTENANT SHIFT SUPERVISOR EXAM: XR HAND BILATERAL G/E 3 VIEWS LOCATION: [facility] DATE: 10/18/2023 INDICATION: Polyarthralgia, myalgia, joint stiffness. COMPARISON: None. Procedure Note Brenden Odell MD - 10/18/2023 EXAM: XR HAND BILATERAL G/E 3 VIEWS LOCATION: [facility] DATE: 10/18/2023 INDICATION: Polyarthralgia, myalgia, joint stiffness. COMPARISON: None. IMPRESSION: No fractures. Moderate degenerative changes at the left andright STT and 1st CMC joints. Mild chondrocalcinosis in the TFCCsbilaterally. Christina Roe PA-C IMG DIAGNOSTIC IMAGING ORDERABLES * SSB La LEELEE Antibody IgG (10/18/2023 8:35 AM LIEUTENANT SHIFT SUPERVISOR) SSB [place] IgG Instrument Value <0.6 <7.0 U/mL 10/19/2023 5:38 PM LIEUTENANT SHIFT SUPERVISOR [facility] SPECIAL[facility] CORE/PROT/END O SSB (La) Antibody IgG Negative Negative 10/19/2023 5:38 PM LIEUTENANT SHIFT SUPERVISOR UM SPECIALTY CORE/PROT/END O Blood BLOOD SPECIMEN / Unknown Venipuncture / Unknown 10/18/2023 8:35 AM LIEUTENANT SHIFT SUPERVISOR 10/18/2023 8:35 AM LIEUTENANT SHIFT SUPERVISOR Christina [facility]IGHTC LAB - BLOOD OR DERABLES UM SPECIALTY CORE/PROT/ENDO Specialty Core/Prot/Endo [address] [facility] [address] Building, Room [address] [phone] * SSA Ro LEELEE Antibody IgG (10/18/2023 8:35 AM LIEUTENANT SHIFT SUPERVISOR) SSA [place] IgG Instrument Value <0.5 <7.0 U/mL 10/19/2023 5:38 PM LIEUTENANT SHIFT SUPERVISOR SPECIALTY CORE/PROT/END O SSA (Ro) Antibody IgG Negative Negative 10/19/2023 5:38 PM LIEUTENANT SHIFT SUPERVISOR SPECIALTY CORE/PROT/END O Blood BLOOD SPECIMEN / Unknown Venipuncture / Unknown 10/18/2023 8:35 AM LIEUTENANT SHIFT SUPERVISOR 10/18/2023 8:35 AM LIEUTENANT SHIFT SUPERVISOR Christina Roe PA-C LAB - BLOOD OR DERABLES UM SPECIALTY CORE/PROT/ENDO Specialty Core/Prot/Endo [address] [facility] [address] Building, Room [address] [phone] * Cyclic Citrullinated Peptide Antibody IgG (10/18/2023 8:35 AM LIEUTENANT SHIFT SUPERVISOR) Cyclic Citrullinated Peptide Antibody IgG 1.0 <7.0 U/mL 10/19/2023 5:39 PM LIEUTENANT SHIFT SUPERVISOR SPECIALTY CORE/PROT/END O Comment:Negative Blood BLOOD SPECIMEN / Unknown Venipuncture / Unknown 10/18/2023 8:35 AM LIEUTENANT SHIFT SUPERVISOR 10/18/2023 8:35 AM LIEUTENANT SHIFT SUPERVISOR Christina Roe PA-C LAB - BLOOD OR DERABLES SPECIALTY CORE/PROT/ENDO Specialty Core/Prot/Endo [address] [facility] [address] Building, [address] [phone] * Rheumatoid factor (10/18/2023 8:35 AM LIEUTENANT SHIFT SUPERVISOR) Rheumatoid Factor <10 <14 IU/mL 10/18/2023 12:25 PM LIEUTENANT SHIFT SUPERVISOR [facility] Blood BLOOD SPECIMEN / Unknown Venipuncture / Unknown 10/18/2023 8:35 AM LIEUTENANT SHIFT SUPERVISOR 10/18/2023 8:35 AM LIEUTENANT SHIFT SUPERVISOR Christina Roe PA-C LAB - BLOOD OR DERABLES [facility] [place] Core Lab [address] [facility] [address] Building, Room [address] [phone] * Erythrocyte sedimentation rate auto (10/18/2023 8:35 AM LIEUTENANT SHIFT SUPERVISOR) Erythrocyte Sedimentation Rate 14 0 - 30 mm/hr 10/18/2023 8:49 AM LIEUTENANT SHIFT SUPERVISOR [facility] Blood BLOOD SPECIMEN / Unknown Venipuncture / Unknown 10/18/2023 8:35 AM LIEUTENANT SHIFT SUPERVISOR 10/18/2023 8:35 AM LIEUTENANT SHIFT SUPERVISOR Christina Roe PA-C LAB - BLOOD [place] [address], [facility] * CRP inflammation (10/18/2023 8:35 AM LIEUTENANT SHIFT SUPERVISOR) CRP Inflammation <3.00 <5.00 mg/L 10/18/19 12:25 PM LIEUTENANT SHIFT SUPERVISOR [facility] Blood BLOOD SPECIMEN / Unknown Venipuncture / Unknown 10/18/2023 8:35 AM LIEUTENANT SHIFT SUPERVISOR 10/18/2023 8:35 AM LIEUTENANT SHIFT SUPERVISOR Christina Roe PA-C LAB - BLOOD OR DERABLES U LAB[facility]ATORY [facility] Core Lab [address] [facility], [address] [address], [facility] [phone] * CK total (10/18/2023 8:35 AM LIEUTENANT SHIFT SUPERVISOR) Pathologist [facility] CK 53 26 - 192 U/L 10/18/2023 12:25 PM LIEUTENANT SHIFT SUPERVISOR [facility] Blood BLOOD SPECIMEN / Unknown Venipuncture / Unknown 10/18/2023 8:35 AM LIEUTENANT SHIFT SUPERVISOR 10/18/2023 8:35 AM LIEUTENANT SHIFT SUPERVISOR Christina Roe PA-C LAB - BLOOD OR DERABLES LABORATORY [facility] Core Lab [address] [facility], [address] [address], [facility] [phone] * Aldolase (10/18/2023 8:35 AM LIEUTENANT SHIFT SUPERVISOR) Pathologist [facility] Aldolase 6.3 1.2 - 7.6 U/L 10/19/2023 10:04 PM LIEUTENANT SHIFT SUPERVISOR [facility] Comment: REFERENCE INTERVAL: Aldolase Access complete set of age- and/or gender-specific reference intervals for this test in the [facility] Test Directory ([employer]). Performed By: [facility] [address] [place] [address] Customer Experience Associate: Royer Samuels MD, PhD CLIA Number: [id number] Blood BLOOD SPECIMEN / Unknown Venipuncture / Unknown 10/18/2023 8:35 AM LIEUTENANT SHIFT SUPERVISOR 10/18/2023 8:35 AM LIEUTENANT SHIFT SUPERVISOR Christina Roe PA-C LAB - BLOOD OR DERABLES Performing Organization Address City/State/[facility] Co de Phone Number [facility] [address] [place] [address] [phone] from Last 3 Months Care Teams Sieve Grader Tender Relationship Specialty Start Date End Date Feliciano Uribe MD [facility] [address] [place] [address] PCP - General Family Medicine 06/01/23 Christina Roe PA-C [address] [place] [address] Physician Weeder Rheumatology 11/06/23 Christina Roe PA-C [address] [place] [address] Assigned Rheumatology Provider 11/09/23
--- OUTSIDE RECORDS SUMMARY | 2024-01-02 07:31 | XMS_ITS | Clinical Summary ---
Author Name Unknown Organization [facility] Address [address] [place] [address] Care Team Providers Care Woods Boss Name Role Phone Feliciano Uribe MD Primary Care Provider [phone] Christina Roe PA-C Unavailable Christina Roe PA-C Unavailable Allergies Active Allergy Reactions Criticality Noted Date [...] mouth at bedtime Active D3-50 1.25 MG (20426 UT) capsule Take 1,250 mcg by mouth [...] to review Hyperlipidemia 03/14/2010 Primary hypertension 03/14/2010 Encounters Date Type Department Care Team Description 12/13/2023 12:00 PM CDT Office Visit [facility] [address] [facility] [address] [place] [address] Christina Roe PA-C Polymyalgia rheumatica (H24) (Primary Dx); On prednisone therapy 12/13/2023 Travel 12/07/2023 Telephone [facility] [address] [place] [phone] Christina Roe PA-C Patient/info Update 11/18/2023 MyC Medical Advice [address] [address] Christina Roe PA-C Polyarthralgia; Myalgia 11/06/2023 2:30 PM CDT Virtual Visit [address] [address] Christina Roe PA-C Myalgia (Primary Dx); Polyarthralgia; Joint stiffness 11/06/2023 Travel 10/23/[address] [facility] [address] [facility] [address] [place] [address] Christina Roe PA-C Appointment 10/18/2023 8:38 AM JOINT MAKER MACHINE - 10/18/2023 11:59 PM JOINT MAKER MACHINE Hospital Encounter [facility] [address] [place] [address] [address] [place] [address] Chirstina Roe PA-C Polyarthralgia; Myalgia; Joint stiffness Discharge Disposition: Home or Self Care 10/18/2023 8:20 AM JOINT MAKER MACHINE Lab [facility] [address] [place] [address] [address] [place] [phone] Polyarthralgia; Myalgia; Joint stiffness 10/18/2023 8:00 AM JOINT MAKER MACHINE Office Visit [address] [place] [phone] Christina Roe PA-C Polyarthralgia (Primary Dx); Myalgia; Joint stiffness 10/18/2023 Travel from Last 3 Months Immunizations Name Administration Dates Next Due Influenza [...] Description 03/20/2024 10:30 AM CDT Office Visit [address] [phone] Christina Roe PA-C [address] [place] [address] Health Maintenance Due Date Last Done Comments ADVANCE CARE PLANNING 1945 ANNUAL REVIEW OF HM ORDERS 1946 DEXA 1946 GLUCOSE 1946 LIPID 1946 TSH W/FREE T4 REFLEX 1946 HEPATITIS C SCREENING 1964 ZOSTER IMMUNIZATION (1 of 2) 1996 RSV VACCINE ( & 60+) (1 - 1-dose 60+ series) 2006 FALL RISK ASSESSMENT 2011 MEDICARE ANNUAL WELLNESS VISIT 2011 COVID-19 Vaccine (3 - 2022- season) 2023 11/12/2020, 10/15/2020 PHQ-2 (once per calendar year) 2023 DTAP/TDAP/TD IMMUNIZATION (3 - Td or Tdap) 11/22/2031 11/21/2021, 05/02/2012, 03/10/2005 Pneumococcal Vaccine: 65+ Years Completed 01/12/2015, 11/28/2013, 08/27/2007 INFLUENZA VACCINE Completed 06/19/2023, , 06/21/2020, Additional history exists HPV IMMUNIZATION Aged Out No longer e ligible based on patient's age to complete this topic IPV IMMUNIZATION Aged Out No longer e ligible based on patient's age to complete this topic MENINGITIS IMMUNIZATION Aged Out No l onger eligible based on patient's age to complete this topic RSV MONOCLONAL ANTIBODY Aged Out No l onger eligible based on patient's age to complete this topic Procedures Procedure Name Priority Date/Time Associated Diagnosis Comments XR HAND BILATERAL G/E 3 VIEWS Routine 10/18/2023 8:44 AM JOINT MAKER MACHINE Polyarthralgia Myalgia Joint stiffness ALDOLASE Routine 10/18/2023 8:35 AM JOINT MAKER MACHINE Polyarthralgia Myalgia Joint stiffness CK TOTAL Routine 10/18/2023 8:35 AM JOINT MAKER MACHINE Polyarthralgia Myalgia Joint stiffness SSB LA LEELEE ANTIBODY IGG Routine 10/18/2023 8:35 AM JOINT MAKER MACHINE Polyarthralgia Myalgia Joint stiffness SSA RO LEELEE ANTIBODY IGG Routine 10/18/2023 8:35 AM JOINT MAKER MACHINE Polyarthralgia Myalgia Joint stiffness RHEUMATOID FACTOR Routine 10/18/2023 8:3 5 AM JOINT MAKER MACHINE Polyarthralgia Myalgia Joint stiffness ERYTHROCYTE SEDIMENTATION RATE AUTO Routine 10/18/2023 8:35 AM JOINT MAKER MACHINE Polyarthralgia Myalgia Joint stiffness CYCLIC CITRULLINATED PEPTIDE ANTIBODY IGG Routine 10/18/2023 8:35 AM JOINT MAKER MACHINE Polyarthralgia Myalgia Joint stiffness CRP INFLAMMATION Routine 10/18/2023 8:35 AM JOINT MAKER MACHINE Polyarthralgia Myalgia Joint stiffness from Last 3 Months Results * XR Hand Bilateral G/E 3 Views (10/18/2023 8:44 AM JOINT MAKER MACHINE) Anatomical Region Laterality Modality Hand, Wrist Bilateral Digital Radiogra phy 10/18/2023 8:44 AM JOINT MAKER MACHINE Impressions 10/18/2023 12:27 PM JOINT MAKER MACHINE IMPRESSION: No fractures. 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 Mild chondrocalcinosis in the TFCCs bilaterally. Narrative 10/18/2023 12:27 PM JOINT MAKER MACHINE EXAM: XR HAND BILATERAL G/E 3 VIEWS LOCATION: [facility] DATE: 10/18/2023 INDICATION: Polyarthralgia, myalgia, joint stiffness. COMPARISON: None. Procedure Note Brenden Odell MD - 10/18/2023 EXAM: XR HAND BILATERAL G/E 3 VIEWS LOCATION: [facility] DATE: 10/18/2023 INDICATION: Polyarthralgia, myalgia, joint stiffness. COMPARISON: None. IMPRESSION: No fractures. Moderate degenerative changes at the left andright STT and 1st CMC joints. Mild chondrocalcinosis in the TFCCsbilaterally. Christina Roe PA-C IMG DIAGNOSTIC IMAGING ORDERABLES * SSB La LEELEE Antibody IgG (10/18/2023 8:35 AM JOINT MAKER MACHINE) SSB [place] IgG Instrument Value <0.6 <7.0 U/mL 10/19/2023 5:38 PM JOINT MAKER MACHINE UM SPECIALTY CORE/PROT/END O SSB (La) Antibody IgG Negative Negative 10/19/2023 5:38 PM JOINT MAKER MACHINE SPECIALTY CORE/PROT/END O Blood BLOOD SPECIMEN / Unknown Venipuncture / Unknown 10/18/2023 8:35 AM JOINT MAKER MACHINE 10/18/2023 8:35 AM JOINT MAKER MACHINE Christina Roe PA-C LAB - BLOOD OR DERABLES UM SPECIALTY CORE/PROT/ENDO Specialty Core/Prot/Endo [address] [facility], Room [address] [phone] * SSA Ro LEELEE Antibody IgG (10/18/2023 8:35 AM JOINT MAKER MACHINE) SSA [place] IgG Instrument Value <0.5 <7.0 U/mL 10/19/2023 5:38 PM JOINT MAKER MACHINE SPECIALTY CORE/PROT/END O SSA (Ro) Antibody IgG Negative Negative 10/19/2023 5:38 PM JOINT MAKER MACHINE SPECIALTY CORE/PROT/END O Blood BLOOD SPECIMEN / Unknown Venipuncture / Unknown 10/18/2023 8:35 AM JOINT MAKER MACHINE 10/18/2023 8:35 AM JOINT MAKER MACHINE Christina Roe PA-C LAB - BLOOD OR DERABLES UM SPECIALTY CORE/PROT/ENDO Specialty Core/Prot/Endo [address] [facility], Room [address] [phone] * Cyclic Citrullinated Peptide Antibody IgG (10/18/2023 8:35 AM JOINT MAKER MACHINE) Cyclic Citrullinated Peptide Antibody IgG 1.0 <7.0 U/mL 10/19/2023 5:39 PM JOINT MAKER MACHINE SPECIALTY CORE/PROT/END O Comment:Negative Blood BLOOD SPECIMEN / Unknown Venipuncture / Unknown 10/18/2023 8:35 AM JOINT MAKER MACHINE 10/18/2023 8:35 AM JOINT MAKER MACHINE Christina Roe PA-C LAB - BLOOD OR DERABLES UM SPECIALTY CORE/PROT/ENDO UM Specialty Core/Prot/Endo [address] [facility] [address] Building, Room [address] [address] [phone] * Rheumatoid factor (10/18/2023 8:35 AM JOINT MAKER MACHINE) Rheumatoid Factor <10 <14 IU/mL 10/18/2023 12:25 PM JOINT MAKER MACHINE [facility] Blood BLOOD SPECIMEN / Unknown Venipuncture / Unknown 10/18/2023 8:35 AM JOINT MAKER MACHINE 10/18/2023 8:35 AM JOINT MAKER MACHINE Christina Roe PA-C LAB - BLOOD OR DERABLES [facility] 500 [facility], [address] [address], [facility] [phone] * Erythrocyte sedimentation rate auto (10/18/2023 8:35 AM JOINT MAKER MACHINE) Erythrocyte Sedimentation Rate 14 0 - 30 mm/hr 10/18/2023 8:49 AM JOINT MAKER MACHINE [facility] Blood BLOOD SPECIMEN / Unknown Venipuncture / Unknown 10/18/2023 8:35 AM JOINT MAKER MACHINE 10/18/2023 8:35 AM JOINT MAKER MACHINE Christina Roe PA-C LAB - BLOOD OR DERABLES [facility] [address] * CRP inflammation (10/18/2023 8:35 AM JOINT MAKER MACHINE) CRP Inflammation <3.00 <5.00 mg/L 10/18/19 12:25 PM JOINT MAKER MACHINE [facility] Blood BLOOD SPECIMEN / Unknown Venipuncture / Unknown 10/18/2023 8:35 AM JOINT MAKER MACHINE 10/18/2023 8:35 AM JOINT MAKER MACHINE Christina Roe PA-C LAB - BLOOD OR DERABLES U [facility] [address] [facility], [address] [address], [facility] [phone] * CK total (10/18/2023 8:35 AM JOINT MAKER MACHINE) CK 53 26 - 192 U/L 10/18/2023 12:25 PM JOINT MAKER MACHINE [facility] Blood BLOOD SPECIMEN / Unknown Venipuncture / Unknown 10/18/2023 8:35 AM JOINT MAKER MACHINE 10/18/2023 8:35 AM JOINT MAKER MACHINE Christina Roe PA-C LAB - BLOOD OR DERABLES Performing Organization Address City/[facility] Co de Phone Number [facility] Core Lab [address] [facility], [address] [address], [facility] [phone] * Aldolase (10/18/2023 8:35 AM JOINT MAKER MACHINE) Aldolase 6.3 1.2 - 7.6 U/L 10/19/2023 10:04 PM JOINT MAKER MACHINE [facility] Comment: REFERENCE INTERVAL: Aldolase Access complete set of age- and/or gender-specific reference intervals for this test in the [facility] Test Directory ([employer]). Performed By: [facility] [address] [place] [id number] Loom Mechanic: Royer Samuels MD, PhD CLIA Number: [id number] Blood BLOOD SPECIMEN / Unknown Venipuncture / Unknown 10/18/2023 8:35 AM JOINT MAKER MACHINE 10/18/2023 8:35 AM JOINT MAKER MACHINE Christina Roe PA-C LAB - BLOOD OR DERABLES [facility] [address] [place] [phone], [facility] [phone] from Last 3 Months Care Teams Woods Boss Relationship Specialty Start Date End Date Feliciano Uribe MD [address] [address] PCP - General Family Medicine 06/01/23 Christina Roe PA-C [address] [place] [address] Physician Copy Chief Rheumatology 11/06/23 Christina Roe PA-C [address] [place] [address] Assigned Rheumatology Provider 11/09/23
--- OUTSIDE RECORDS SUMMARY | 2024-01-02 07:32 | XMS_ITS | Clinical Summary ---
Author Name Unknown Organization [facility] Address [address] [place] [address] Care Team Providers Care Overhead Crane Operator Name Role Phone Unavailable Primary Care Provider Unavailabl e Source Comments Patient records contain information from all sites at [facility]. For routine questions regarding patient records, call [phone] during business hours, M-F 8:00 AM - 5:00 PM Central Time. Record requests for emergency care only can be directed to [phone] at any time.[facility] Allergies No known active allergies Medications Medication [...] past 2 weeks. One tab relieved sx. 05/21/2013 Active atorvastatin (LIPITOR) 10 mg tablet daily. 0 07/02/2018 Active calcium carbonate (OS-CALDERON) 1,250 mg (500 mg calcium) tablet Take 500 mg of calcium by mouth 2 (two) times a day. Oyster shell calcium 03/27/2019 Active predniSONE (DELTASONE) 20 mg tablet as needed. For gout when needed 04/07/2019 Active FLUoxetine (PROzac) 40 mg capsule Take 40 mg by mouth daily. 03/27/2019 Active lisinopriL (PRINIVIL,ZESTRIL) 10 mg tablet Take 1 tablet by mouth daily. 06/10/2020 Active levothyroxine (SYNTHROID, LEVOTHROID) 175 mcg tablet Take 1 tablet by mouth daily. 06/10/2020 Active multivitamin (THERAGRAN) tablet Take 1 tablet by mouth 2 (two) times a day. 07/12/2020 Active metoprolol succinate (TOPROL-XL) 50 mg 24 hr tablet Take 50 mg by mouth daily. 09/09/2022 Active cholecalciferol (VITAMIN D3) 1,250 mcg (50,000 Unit) capsule Take 50,000 Units by mouth once a week. 06/26/2022 Active cyanocobalamin, vitamin B-12, (B-12 KIT INJ) Inject 1,000 mcg as directed every 30 (thirty) days. Through primary care clinic Active cholecalciferol (VITAMIN D3) 1,250 mcg (50,000 [...] onto a bite of applesauce 180 capsule 11/01/2022 Active Active Problems Problem Noted Date Diagnosed Date Bypass Gastric Suellen En Y Status Post 07/12/2020 Family History Coronary Artery Disease 7 Elevated Liver Enzyme Abnorm al, Aspartate Transaminase, Serum Glutamic-Oxaloacetic Transaminase, Alanine Transaminase 03/24/2015 Hyperlipidemia 03/14/2010 Hypertension Essential Primary 03/14/2010 Immunizations Name Administration Dates Next Due Influenza, Unspecified 05/05/2011 PPSV23 11/28/2013,08/27/2007 Family History Medical History Relation Name Comments Coronary artery disease Father rosa isela cline Hypertension Father rosa isela cline Transient ischemic attack Mother Winifred Cline Relation Name Status Comments Father rosa isela cline Mother Winifred Cline Social History Tobacco Use Types Packs/Day Years [...] often do you attend chur ch or voodoo services? More than 4 times per year 10/10/2022 Do you belong to any clubs o r organizations such as hoahaoism groups, unions, fraternal or athletic groups, or [...] and heating? Not hard at all 10/10/2022 [facility] [place] [facility] - Occupational Stress [...] place to sleep or slept in a nursing home (including now)? No 10/10/2022 Nutrition Answer Date [...] Sex Assigned at Female 10/10/2022 4:07 PM PLY BANDER Gender Identity Female 07/16/2018 12:55 PM PLY BANDER Sexual Orientation Straight 07/16/2018 12 :55 PM PLY BANDER Last Filed Vital Signs Vital Sign Reading Time Taken Comments Blood Pressure 163/73 10/31/2022 12:17 PM PLY BANDER Pulse 75 10/31/2022 12:17 PM PLY BANDER Temperature 36.5 ??C (97.7 ??F) 10/31/2022 1 2:27 PM PLY BANDER Respiratory Rate 20 10/31/2022 12:1 7 PM PLY BANDER Oxygen Saturation 96% 10/31/2022 12: 17 PM PLY BANDER Inhaled Oxygen Concentration - - Weight 55.2 kg (121 lb 11.1 oz) 11/01/2022 9:18 AM PLY BANDER Height 152 cm (4' 11.84) 11/01/2022 9:18 AM PLY BANDER Body Mass Index 23.89 11/01/2022 9:18 AM PLY BANDER Plan of Treatment Health Maintenance Due Date [...] Additional history exists Potassium Level 10/17/2023 10/17/2022, 12/08/2021, 07/26/2022, Additional history exists Sodium Level 10/17/2023 [...] FIT Discontinued Medical Devices Implanted Type Area Cream Dumper Device Identifier Shelf Expiration Date Model / Serial / Lot Knee Implant- 022 Implanted:01/2022 (Quantity not on file) Knee Implant Right: Knee Ocular Lens Ocular Lens Bilatera l: Eye Procedures Procedure Name Priority Date/Time Associated Diagnosis Comments COMPREHENSIVE METABOLIC PANEL, S/P Routine 10/17/2022 10:01 AM PLY BANDER Bypass Gastric Suellen En Y Status Post EXTI THYROID-STIMULATING HORMONE-SENSITIVE (S-TSH), S Routine 07/26/2022 8:02 AM PLY BANDER from Last 3 Months or Most Recently Relevant to Health Maintenance Results * Comprehensive Metabolic Panel (10/17/2022 10:01 AM PLY BANDER) Potassium, S 4.5 3.6 - 5.2 mmol/L 10/17/2022 11:02 AM PLY BANDER DTL Sodium, S 141 135 - 145 mmol/L 10/17/2022 11:02 AM PLY BANDER DTL Chloride, S 106 98 - 107 mmol/L 10/17/2022 11:02 AM PLY BANDER DTL Bicarbonate, S 26 22 - 29 mmol/L 10/17/2022 11:02 AM PLY BANDER DTL Anion Gap 9 7 - 15 10/17/2022 11:02 AM PLY BANDER DTL BUN (Blood Urea Nitrogen), S 12 6 - 21 mg/dL 10/17/2022 11:02 AM PLY BANDER DTL Creatinine 0.59 0.59 - 1.04 mg/dL 10/17/2022 11:02 AM PLY BANDER DTL Estimated GFR (eGFR) >90 >=60 mL/min/BS A 10/17/2022 11:02 AM PLY BANDER DTL Comment: Estimated GFR calculated using the 2020 CKD_EPI creatinine equation. Calcium, Total, S 9.7 8.8 - 10.2 mg/dL 10/17/2022 11:02 AM PLY BANDER DTL Glucose, S 100 70 - 140 mg/dL 10/17/2022 11:02 AM PLY BANDER DTL Protein, Total, S 6.8 6.3 - 7.9 g/dL 10/17/2022 11:02 AM PLY BANDER DTL Albumin, S 4.5 3.5 - 5.0 g/dL 10/17/2022 11:02 AM PLY BANDER DTL Aspartate Aminotransferase (AST), S 23 8 - 43 U/L 10/17/2022 11:02 AM PLY BANDER DTL Alkaline Phosphatase, S 83 35 - 104 U/L 10/17/2022 11:02 AM PLY BANDER DTL Alanine Aminotransferase (ALT), S 23 7 - 45 U/L 10/17/2022 11:02 AM PLY BANDER DTL Bilirubin, Total, S 0.3 <=1.2 mg/dL 10/17/2022 11:02 AM PLY BANDER DTL Blood (Blood, Venous) 10/17/2022 10:01 AM PLY BANDER 10/17/2022 10:38 AM PLY BANDER Merlyn Cobos M.D. LAB BLO OD ADD-ON [facility] [address] [place] [address], [facility] [address] [place] [address] from Last 3 Months or Most Recently Relevant to Health Maintenance
--- OUTSIDE RECORDS SUMMARY | 2024-01-02 07:32 | XMS_ITS | Encounter Summary ---
Author Name Unknown Organization [place] Address [address] [place] [address]. [place] [address] Care Team Providers Care Rubber Tire And Tubes Supervisor Name Role Phone Feliciano Uribe MD Primary Care Provider [phone] Christina Roe PA-C Unavailable Christina Roe PA-C Unavailable [phone] Encounter Details Date Type Department Care Team (Late st Contact Info) Description 11/18/2023 MyC Medical Advice [facility] [address] [place] [address] Christina Roe PA-C [address] [place], [place] [phone] Polyarthralgia; Myalgia Social History Tobacco Use Types Packs/Day Years Used Date Smoking Tobacco: Never Passive Smoke Exposure: Past Smokeless Tobacco: Never Alcohol Use Standard Drinks/Week Comments Yes 0 (1 standard drink = 0.6 oz pur e alcohol) occasional wine Adolescent Education Answer Date Record ed Getting School Help Needed Not on file 05/31 Sex and Gender Information Value Date Recorded Sex Assigned at Not on file Gender Identity Not on file Sexual Orientation Not on file documented as of this encounter Miscellaneous Notes * Telephone Encounter - Anusha Raya RN - 11/19/2023 7:52 AM CDT Per last office visit At this time we will increase the prednisone to 15 mg daily. She will message me next week and depending on if there is improvement we will either increase the dose further, continue on that dose foranother week, or have her follow-up with primary care. Tentative plan will be for the patient to follow-up with me in 2 months, but it will depend on if she has improvement with the prednisone at 15 m g. Please advise. [facility] RN documented in this encounter Plan of Treatment Upcoming Encounters Date Type Department Care Team (Late st Contact Info) Description 03/20/2024 10:30 AM CDT Office Visit [address] [phone] Christina Roe PA-C [address] [place] [address] documented as of this encounter Visit Diagnoses Diagnosis Polyarthralgia Pain in joint, multiple sites Myalgia Mylagia and myositis, unspecified documented in this encounter Care Teams Rubber Tire And Tubes Supervisor Relationship Specialty Start Date End Date Feliciano Uribe MD [facility] [address] [place] [address] PCP - General Family Medicine 06/01/23 Christina Roe PA-C [address] [place] [address] Physician Boat Loader Rheumatology 11/06/23 Christina Roe PA-C [address] [place] [address] Assigned Rheumatology Provider 11/09/23 documented as of this encounter
--- OUTSIDE RECORDS SUMMARY | 2024-01-02 07:32 | XMS_ITS | Clinical Summary ---
Author Name Unknown Organization [employer] [email or web address] Address [place], [place] [address] Care Team Providers Care Hydrology Teacher Name Role Phone Feliciano Uribe MD Primary Care Provider [phone] Allergies No known active allergies Medications Medication Sig Dispensed Refills Start Date End Date Status atorvastatin (LIPITOR) 10 mg tablet Take 10 mg by mouth at bedtime. 07/04/2022 Active cholecalciferol (VITAMIN D3) 50,000 unit capsule Take 50,000 units by mouth once weekly. 06/26/2022 Active FLUoxetine (PROZAC) 40 mg capsule Take 40 mg by mouth once daily. 07/04/2022 Active nitroglycerin (NITROSTAT) 0.[address] 0.4 mg under the tongue every 5 minutes if needed. 11/21/2021 Active prednisoLONE acetate 1% ophthalmic (ECONOPRED PLUS, PRED FORTE, OMNIPRED) suspension As directed 1 Drop four times daily. Active WalkerIndications:Ar thritis of knee, right Walker with front wheels for home use. 1 Each 07/27/2022 Active metoprolol succinate (TOPROL XL) 50 mg sustained-release tablet Take 50 mg by mouth once daily. 09/09/2022 Active omeprazole (PRILOSEC) 40 mg Delayed-Release capsule Take 40 mg by mouth once daily before a meal. 11/01/2022 Active levothyroxine (SYNTHROID) 150 mcg tablet Take 1 Tablet (150 mcg) by mouth once daily. 09/12/2023 Active lisinopriL (PRINIVIL; ZESTRIL) 10 mg tabletIndications:Hy pertension Take 1 Tablet (10 mg) by mouth two times daily. 180 Tablet 3 09/14/2023 Active metoprolol tartrate (LOPRESSOR) 25 mg tabletIndications:SV T (supraventricular tachycardia) (HC) Take 1 Tablet (25 mg) by mouth two times daily. 180 Tablet 3 09/14/2023 Active amLODIPine (NORVASC) 5 mg tabletIndications:Hy pertension, unspecified type Take 1 Tablet (5 mg) by mouth once daily. 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 07/22/2022 CAD (coronary artery disease) 04/07/2019 Hyperlipidemia 04/07/2019 Hypothyroidism 04/07/2019 Primary osteoarthritis of both ankles 04/07/2019 Pseudogout 04/07/2019 Anxiety 04/07/2019 Primary hypertension Gastric bypass status for obesity Encounters Date Type Department Care Team Description 12/11/2023 8:30 AM CDT Office Visit [facility] [address] [place] [address] Ethan Abrams MD Follow Up (Blood pressure medications- high bp) 12/11/2023 Travel 11/01/[address] [place] [id number] Ethan Abrams MD Results (monitor) from Last 3 Months Social History Tobacco [...] Sign Reading Time Taken Comments Blood Pressure 147/84 12/11/2023 8:25 AM CDT Pulse 64 12/11/2023 8:25 AM CDT Temperature 36.7 ??C (98 ??F) 07/27/2022 4:00 PM PRODUCT DEVELOPMENT ACTUARY Respiratory Rate 16 07/27/2022 4:00 PM PRODUCT DEVELOPMENT ACTUARY Oxygen Saturation 98% 12/11/2023 8:25 AM CDT Inhaled Oxygen Concentration - - Weight 65.5 kg (144 lb 4.8 oz) 12/11/2023 8:25 A M CDT Height 177.8 cm (5' 10) 07/22/2022 1:00 PM PRODUCT DEVELOPMENT ACTUARY Body Mass Index 20.7 07/22/2022 1:00 PM PRODUCT DEVELOPMENT ACTUARY Plan of Treatment Health Maintenance Due Date [...] 1 - PCV) 2011 COVID-19 vaccine series (3 - season) 2023 11/12/2020, 10/15/2020 Influenza for age 65+ 04/27/2024 Procedures Procedure Name Priority Date/Time Associated Diagnosis Comments EXTENDED HOLTER Routine 10/25/2023 SVT (supraventricular tachycardia) from Last 3 Months Results * Zio XT (10/25/2023) Ethan Abrams MD CARDIAC SERVIC ES ORD from Last 3 Months Advance Directives * Full Code (Latest Code Status on File) Date Activated Date Inactivated Comments 07/22/2022 1:18 PM 07/27/2022 7:46 PM Question Answer Comments Code Status Discussion: Reviewed Preferences Care Teams Hydrology Teacher Relationship Specialty Start Date End Date Feliciano Uribe MD [address] [place] [address] PCP - General Family Practice 09/01/22
--- OUTSIDE RECORDS SUMMARY | 2024-01-02 07:32 | XMS_ITS | Encounter Summary ---
Author Name Unknown Organization [place] Address [address] [place] [address] Care Team Providers Care Key Attendant Name Role Phone Feliciano Uribe MD Primary Care Provider [phone] Encounter Details Date Type Department Care Team (Late st Contact Info) Description 10/18/2023 8:20 AM MERCHANDISING SPECIALIST Lab [facility] [address] [place] [address] [address] [place] [phone] Polyarthralgia; Myalgia; Joint stiffness Social History Tobacco Use Types Packs/Day Years Used Date Smoking Tobacco: Never Assessed Adolescent Education Answer Date Record ed Getting School Help Needed Not on file 05/31 Sex and Gender Information Value Date Recorded Sex Assigned at Not on file Gender Identity Not on file Sexual Orientation Not on file documented as of this encounter Plan of Treatment Upcoming Encounters Date Type Department Care Team (Late st Contact Info) Description 03/20/2024 10:30 AM CDT Office Visit [facility] [address] [place] [address] [address] [place] [phone] Christina Roe PA-C [address] [place] [address] documented as of this encounter Procedures Procedure Name Priority Date/Time Associated Diagnosis Comments SSB LA LEELEE ANTIBODY IGG Routine 10/18/2023 8:35 AM MERCHANDISING SPECIALIST Polyarthralgia Myalgia Joint stiffness SSA RO LEELEE ANTIBODY IGG Routine 10/18/2023 8:35 AM MERCHANDISING SPECIALIST Polyarthralgia Myalgia Joint stiffness CYCLIC CITRULLINATED PEPTIDE ANTIBODY IGG Routine 10/18/2023 8:35 AM MERCHANDISING SPECIALIST Polyarthralgia Myalgia Joint stiffness RHEUMATOID FACTOR Routine 10/18/2023 8:3 5 AM MERCHANDISING SPECIALIST Polyarthralgia Myalgia Joint stiffness ERYTHROCYTE SEDIMENTATION RATE AUTO Routine 10/18/2023 8:35 AM MERCHANDISING SPECIALIST Polyarthralgia Myalgia Joint stiffness CRP INFLAMMATION Routine 10/18/2023 8:35 AM MERCHANDISING SPECIALIST Polyarthralgia Myalgia Joint stiffness CK TOTAL Routine 10/18/2023 8:35 AM MERCHANDISING SPECIALIST Polyarthralgia Myalgia Joint stiffness ALDOLASE Routine 10/18/2023 8:35 AM MERCHANDISING SPECIALIST Polyarthralgia Myalgia Joint stiffness documented in this encounter Results * Aldolase (10/18/2023 8:35 AM MERCHANDISING SPECIALIST) Aldolase 6.3 1.2 - 7.6 U/L 10/19/2023 10:04 PM MERCHANDISING SPECIALIST NEXAGE Comment: REFERENCE INTERVAL: Aldolase Access complete set of age- and/or gender-specific reference intervals for this test in the [facility] Test Directory ([employer] Information). Performed By: [id number] [address] [place] [id number] Emission Specialist: Royer Samuels MD, PhD CLIA Number: [id number] Blood BLOOD SPECIMEN / Unknown Venipuncture / Unknown 10/18/2023 8:35 AM MERCHANDISING SPECIALIST 10/18/2023 8:35 AM MERCHANDISING SPECIALIST Christina Roe PA-C LAB - BLOOD OR DERABLES [facility] [address] [place] [phone], [facility] [phone] * CK total (10/18/2023 8:35 AM MERCHANDISING SPECIALIST) CK 53 26 - 192 U/L 10/18/2023 12:25 PM MERCHANDISING SPECIALIST [facility] Blood BLOOD SPECIMEN / Unknown Venipuncture / Unknown 10/18/2023 8:35 AM MERCHANDISING SPECIALIST 10/18/2023 8:35 AM MERCHANDISING SPECIALIST Christina Roe PA-C LAB - BLOOD OR DERABLES [facility] [address] [facility], [address] [address], [facility] [phone] * SSB La LEELEE Antibody IgG (10/18/2023 8:35 AM MERCHANDISING SPECIALIST) Pathologist [facility] SSB [place] IgG Instrument Value <0.6 <7.0 U/mL 10/19/2023 5:38 PM MERCHANDISING SPECIALIST SPECIALTY CORE/PROT/END O SSB (La) Antibody IgG Negative Negative 10/19/2023 5:38 PM MERCHANDISING SPECIALIST SPECIALTY CORE/PROT/END O Blood BLOOD SPECIMEN / Unknown Venipuncture / Unknown 10/18/2023 8:35 AM MERCHANDISING SPECIALIST 10/18/2023 8:35 AM MERCHANDISING SPECIALIST Christina Roe PA-C LAB - BLOOD OR DERABLES SPECIALTY CORE/PROT/ENDO Specialty Core/Prot/Endo [address] [facility] [address], Room [address] [phone] * SSA Ro ELELEE Antibody IgG (10/18/2023 8:35 AM MERCHANDISING SPECIALIST) Pathologist [facility] SSA [place] IgG Instrument Value <0.5 <7.0 U/mL 10/19/2023 5:38 PM MERCHANDISING SPECIALIST SPECIALTY CORE/PROT/END O SSA (Ro) Antibody IgG Negative Negative 10/19/2023 5:38 PM MERCHANDISING SPECIALIST SPECIALTY CORE/PROT/END O Blood BLOOD SPECIMEN / Unknown Venipuncture / Unknown 10/18/2023 8:35 AM MERCHANDISING SPECIALIST 10/18/2023 8:35 AM MERCHANDISING SPECIALIST Christina Roe PA-C LAB - BLOOD OR DERABLES SPECIALTY CORE/PROT/ENDO Specialty Core/Prot/Endo [address] [facility] Unit Building, [address] [phone] * Rheumatoid factor (10/18/2023 8:35 AM MERCHANDISING SPECIALIST) Rheumatoid Factor <10 <14 IU/mL 10/18/2023 12:25 PM MERCHANDISING SPECIALIST [facility] Blood BLOOD SPECIMEN / Unknown Venipuncture / Unknown 10/18/2023 8:35 AM MERCHANDISING SPECIALIST 10/18/2023 8:35 AM MERCHANDISING SPECIALIST Christina Roe PA-C LAB - BLOOD OR DERABLES Performing Organization Address City/[facility]/ZIP Co de Phone Number [facility] [address] [facility], [address] [address] [phone] * Erythrocyte sedimentation rate auto (10/18/2023 8:35 AM MERCHANDISING SPECIALIST) Erythrocyte Sedimentation Rate 14 0 - 30 mm/hr 10/18/2023 8:49 AM MERCHANDISING SPECIALIST [facility] Blood BLOOD SPECIMEN / Unknown Venipuncture / Unknown 10/18/2023 8:35 AM MERCHANDISING SPECIALIST 10/18/2023 8:35 AM MERCHANDISING SPECIALIST Christina Roe PA-C LAB - BLOOD OR DERABLES [facility] [address] * Cyclic Citrullinated Peptide Antibody IgG (10/18/2023 8:35 AM MERCHANDISING SPECIALIST) Cyclic Citrullinated Peptide Antibody IgG 1.0 <7.0 U/mL 10/19/2023 5:39 PM MERCHANDISING SPECIALIST [facility] SPECIALTY CORE/PROT/END O Comment:Negative Blood BLOOD SPECIMEN / Unknown Venipuncture / Unknown 10/18/2023 8:35 AM MERCHANDISING SPECIALIST 10/18/2023 8:35 AM MERCHANDISING SPECIALIST Christina Roe PA-C LAB - BLOOD OR DERABLES [facility] SPECIALTY CORE/PROT/ENDO [facility] Specialty Core/Prot/Endo [address] [facility], Room [phone] [place] [address] * CRP inflammation (10/18/2023 8:35 AM MERCHANDISING SPECIALIST) CRP Inflammation <3.00 <5.00 mg/L 10/18/19 12:25 PM MERCHANDISING SPECIALIST [facility] Blood BLOOD SPECIMEN / Unknown Venipuncture / Unknown 10/18/2023 8:35 AM MERCHANDISING SPECIALIST 10/18/2023 8:35 AM MERCHANDISING SPECIALIST Christina Roe PA-C LAB - BLOOD OR DERABLES [facility] [address] [facility], [address] [address] [phone] documented in this encounter Visit Diagnoses Diagnosis Polyarthralgia Pain in joint, multiple sites Myalgia Mylagia and myositis, unspecified Joint stiffness Stiffness of joint, not elsewhere classified, unspecified site documented in this encounter Care Teams Key Attendant Relationship Specialty Start Date End Date Feliciano Uribe MD [facility] [place] [address] PCP - General Family Medicine 06/01/23 documented as of this encounter
--- OUTSIDE RECORDS SUMMARY | 2024-01-02 07:32 | XMS_ITS ---
Author Name Unknown Organization [facility] Address [address] [place] [address] Care Team Providers Care Hoof Trimmer Name Role Phone Unavailable Unavailable Unavailable Surgery Details Not on file Complications Check Surgery Details section. Procedure Estimated Blood Loss Check Surgery Details section. Procedure Findings Check Surgery Details section. Procedure Specimens Taken Check Surgery Details section.
--- OUTSIDE RECORDS SUMMARY | 2024-01-02 07:32 | XMS_ITS | Encounter Summary ---
Author Name Unknown Organization [facility] Address [address] [place] [address]. [place] [address] Care Team Providers Care Business Analysis Analyst Name Role Phone Feliciano Uribe MD Primary Care Provider [phone] Reason for Referral * Diagnostic Imaging XR (Routine) - Pending Review Specialty Diagnoses / Procedures Referred By Amena prasad Referred To Contact Radiology. Diagnoses Polyarthralgia Myalgia Joint stiffness Procedures XR Hand Bilateral G/E 3 Views Christina Roe PA-C [address] [place] [address] Referral ID Status Reason Start Date Expiration Date V isits Requested Visits Authorized [id number] Pending Review 10/18/2023 10/17/2024 1 1 CONTROLS ENGINEER Reason for Visit * Reason Comments New Patient * Consultation (Routine) - Pending Review Specialty Diagnoses / Procedures Referred By Amena prasad Referred To Contact Rheumatology Diagnoses Cervical pain Jah Lobo, DO [facility] [address] [place] [address] Referral ID Status Reason Start Date Expiration Date V isits Requested Visits Authorized [id number] Pending Review 05/31/2023 05/30/2024 1 1 Encounter Details Date Type Department Care Team (Late st Contact Info) Description 10/18/2023 8:00 AM PLC CONTROLS ENGINEER Office Visit [place] [address] [place] [phone] Christina Roe PA-C [facility] [place] [address] Polyarthralgia (Primary Dx); Myalgia; Joint stiffness Social History Tobacco Use [...] Sign Reading Time Taken Comments Blood Pressure 206/96 10/18/2023 7:57 AM PLC CONTROLS ENGINEER Pulse 77 10/18/2023 7:55 AM PLC CONTROLS ENGINEER Temperature - - Respiratory Rate - - Oxygen Saturation 98% 10/18/2023 7:55 AM PLC CONTROLS ENGINEER Inhaled Oxygen Concentration - - Weight 66.1 kg (145 lb 11.2 oz) 10/18/2023 7:55 AM PLC CONTROLS ENGINEER Height - - Body Mass Index - - documented in this encounter Patient Instructions * Patient Instructions* Christina Roe PA-C - 10/18/2023 8:00 AM PLC CONTROLS ENGINEER After Visit Instructions: Thank you for coming to [facility] for your care. It is my goal to partner withyou to help you reach your optimal state of health. Plan: Schedule follow-up with Christina Roe PA-C as needed Imaging: xray hands Labs: CCP antibody, Rheumatoid factor, CRP, Sed Rate, SSA, SSB, Aldolase and CK Christina Roe PA-C [facility] Contact information: [facility] Number: [phone] Please call or send a Swift Shift message with any questions about your care CONTROLS ENGINEER documented in this encounter Progress Notes * Christina Roe PA-C - 10/18/2023 8:00 AM CST Rheumatology Clinic Visit [facility] Christina Roe [facility] Gato Jimenez Date of : 1945 Age: [age] year old Date of Visit: 10/18/2023 Primary care provider: Feliciano Uribe Assessment and Plan: Polyarthralgia Myalgia Joint stiffness Patient presents today for an initial visit. She states that she has had a lot of joint pain that has worsened over the last year. She states that she notices a lot of pain in her neck and in her arms. At times she wonders if she has pseudogout in her arms. Occasionally she has trouble raising her arms and needs help getting dressed. Other days she feels a lot better, for example today is a goodday. She also reports having a lot of falls due to issues with her ankles and them giving out on her. She has noticed some swelling in her right hand as well. Physical examination today shows some soft tissue swelling over the dorsum of her right hand but no active synovitis. She did have tenderness to palpation of her MCPs, PIPs, heels, MTPs, midline spine and upper spinal musculature. Previousimaging studies were reviewed, results below. Given the multitude of symptoms that she is having we will do an autoimmune workup today. Will check her for rheumatoid arthritis as well as check her for Sjogren's syndrome as she does report havingdry eye and dry mouth. Given the muscle weakness that she has been noticing we will check her aldolase and CK levels. I did consider the diagnosis of polymyalgia rheumatica today. Will get her CRP and her sed rate. Depending on the results of the evaluation we may bring her back to start treatment.May consider a course of prednisone as well. She does have a significantly elevated blood pressure on examination today. She denies any shortness of breath, headaches, chest pain, or double vision orblurry vision. She states that she has been working with her turbo operator to get her blood pressureunder control and blood pressure medications were recently changed. She has not yet taken her bloodpressure today. Discussed that if she does develop any of the symptoms that she denied today she needs to present to the emergency room. She verbalized her understanding. This would need to be taken into consideration if we do consider a course of prednisone since prednisone can increase blood pressure. I did verbalize this to the patient today as well as she verbalized her understanding. I will contact her with the results of today's evaluation once it is complete. Plan: Schedule follow-up with Christina Roe PA-C as needed Imaging: xray hands Labs: CCP antibody, Rheumatoid factor, CRP, Sed Rate, SSA, SSB, Aldolase and CK Christina Roe, [facility] History of Present Illness: Gato Jimenez presents for evaluation of neck pain. She reports that she has a lot of joint pain. She has a lot of pain in her neck. She states that she has pseudogout in her arms. She states that at times she is unable to raise her arms. This has been worse over the last 6 months. She states that she has had surgery in her ankles in the past due tocalcium deposits. She has a lot of falls due to her ankles giving out on her. She has had a right knee replacement. She states that some days the pain is so severe she has trouble to get going and walking. She finds that everything is getting harder to do. She has a constant in her arms. She cannotsit for very long, otherwise she gets too stiff. She does not sleep very well due to her legs, (this is not new). The majority of her pain is her arms. She has started to notice swelling her right hand. She also feels that there is a weakness. She recently had a heart monitor. Her blood pressure has been high and she is working on her medications. This has been going on for the last few months. She has not taken her medications yet today. She will break out on her chest and on her face at night sometimes. She was diagnosed with Grave's in 1992. Daughter with lupus. Review of Systems: Constitutional: negative Skin: negative Eyes: negative Ears/Nose/Throat: negative Respiratory: No shortness of breath, dyspnea on exertion, cough, or hemoptysis Cardiovascular: negative Gastrointestinal: negative Genitourinary: negative Musculoskeletal: as above Neurologic: negative Psychiatric: negative Hematologic/Lymphatic/Immunologic: negative Endocrine: negative Active Problem List: Patient Active Problem List Diagnosis Date Noted Adjustment reaction 04/24/2013 Priority: Medium Problem list name updated by automated process. Provider to review Past Medical History: No past medical history on file. No past surgical history on file. Social History: Social History Socioeconomic History Marital status: Spouse name: Not on file Number of children: Not on file Years of education: Not on file Highest education level: Not on file Occupational History Not on file Tobacco Use Smoking status: Not on file Smokeless tobacco: Not on file Substance and Sexual Activity Alcohol use: Not on file Drug use: Not on file Sexual activity: Not on file Other Topics Concern Not on file Social History Narrative Not on file Social Determinants of Health Financial Resource Strain: Not on file Food Insecurity: Not on file Transportation Needs: Not on file Physical Activity: Not on file Stress: Not on file Social Connections: Not on file Interpersonal Safety: Not on file Housing Stability: Not on file Family History: No family history on file. Allergies: No Known Allergies Medications: Current Outpatient Medications Medication Sig Dispense Refill amLODIPine (NORVASC) 10 MG tablet Take 1 tablet by mouth daily at 2 pm amoxicillin (AMOXIL) 500 MG capsule TAKE 4 CAPSULES BY MOUTH 1 HOUR BEFORE DENTAL APPOINTMENT FOR 1DOSE atorvastatin (LIPITOR) 10 MG tablet Take 10 mg by mouth at bedtime D3-50 1.25 MG (19975 UT) capsule Take 1,250 mcg by mouth once a week FLUoxetine (PROZAC) 40 MG capsule Take 40 mg by mouth daily HYDROcodone-acetaminophen (NORCO) 5-325 MG tablet Take 1 tablet by mouth every 8 hours as needed for pain levothyroxine (SYNTHROID/LEVOTHROID) 150 MCG tablet Take 150 mcg by mouth daily lisinopril (ZESTRIL) 10 MG tablet Take 10 mg by mouth metoprolol tartrate (LOPRESSOR) 25 MG tablet Take 25 mg by mouth nitroGLYcerin (NITROSTAT) 0.[address] 0.4 mg under the tongue Physical Exam: Blood pressure (!) 206/96, pulse 77, weight 66.1 kg (145 lb 11.2 oz), SpO2 98%. Wt Readings from Last 6 Encounters: 10/18/23 66.1 kg (145 lb 11.2 oz) Constitutional: well-developed, appearing stated age; cooperative Eyes: nl PERRLA, conjunctiva, sclera ENT: nl external ears, nose, hearing, lips, teeth, gums, throat. No mucositis. No mucous membrane lesions, normal saliva pool Neck: no mass or thyroid enlargement Resp: No shortness of breath with normal conversation Lymph: no cervical, supraclavicular or epitrochlear nodes MS: The TMJ, neck, shoulder, elbow, wrist, MCP/PIP/DIP, spine, hip, knee, ankle, and foot MTP/IP joints were examined and found normal. No active synovitis or altered joint anatomy. Full joint ROM. Normal infertility medical assistant strength. No dactylitis, tenosynovitis, enthesopathy. She did have tenderness to palpation across her MCPs, PIPs, wrist, elbows, MTPs, heels, upper spinal musculature as well as her midlinespine. Some soft tissue swelling over the dorsum of her right hand. Skin: no nail pitting, alopecia, rash, nodules or lesions. Psych: nl judgement, orientation, memory, affect. Data: Imaging: XR Knee Bilateral 3 Views Impression FINDINGS: Right knee: Moderate tricompartmental joint space narrowing. Chondrocalcinosis in the medial and lateral compartments. No effusion. Small dorsal patellar osteophytic spurring. Left knee: Mild tricompartmental joint space narrowing. Chondrocalcinosis in the lateral compartment. No effusion. Laboratory: No recent labs CONTROLS ENGINEER documented in this encounter Plan of Treatment Upcoming Encounters Date Type Department Care Team (Late st Contact Info) Description 03/20/2024 10:30 AM CDT Office Visit [address] [phone] Christina Roe PA-C [address] [place] [id number] documented as of this encounter Results * XR Hand Bilateral G/E 3 Views (10/18/2023 8:44 AM PLC CONTROLS ENGINEER) Anatomical Region Laterality Modality Hand, Wrist Bilateral Digital Radiogra phy 10/18/2023 8:44 AM PLC CONTROLS ENGINEER Impressions 10/18/2023 12:27 PM PLC CONTROLS ENGINEER IMPRESSION: No fractures. 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 Mild chondrocalcinosis in the TFCCs bilaterally. Narrative 10/18/2023 12:27 PM PLC CONTROLS ENGINEER EXAM: XR HAND BILATERAL G/E 3 VIEWS LOCATION: [facility] DATE: 10/18/2023 INDICATION: Polyarthralgia, myalgia, joint stiffness. COMPARISON: None. Procedure Note Brenden Odell MD - 10/18/2023 EXAM: XR HAND BILATERAL G/E 3 VIEWS LOCATION: [facility] DATE: 10/18/2023 INDICATION: Polyarthralgia, myalgia, joint stiffness. COMPARISON: None. IMPRESSION: No fractures. Moderate degenerative changes at the left andright STT and 1st CMC joints. Mild chondrocalcinosis in the TFCCsbilaterally. Christina Roe PA-C IMG DIAGNOSTIC IMAGING ORDERABLES * Aldolase (10/18/2023 8:35 AM PLC CONTROLS ENGINEER) Aldolase 6.3 1.2 - 7.6 U/L 10/19/2023 10:04 PM PLC CONTROLS ENGINEER BTIG Comment: REFERENCE INTERVAL: Aldolase Access complete set of age- and/or gender-specific reference intervals for this test in the [facility] Test Directory ([facility]). Performed By: [facility] [address] [place] [id number] [facility] Program Manager: Royer Samuels MD, PhD CLIA Number: [id number] Blood BLOOD SPECIMEN / Unknown Venipuncture / Unknown 10/18/2023 8:35 AM PLC CONTROLS ENGINEER 10/18/2023 8:35 AM PLC CONTROLS ENGINEER Christina Roe PA-C LAB - BLOOD OR DERABLES [facility] [address] [place] [id number], [facility] [phone] * CK total (10/18/2023 8:35 AM PLC CONTROLS ENGINEER) CK 53 26 - 192 U/L 10/18/2023 12:25 PM PLC CONTROLS ENGINEER [facility] Blood BLOOD SPECIMEN / Unknown Venipuncture / Unknown 10/18/2023 8:35 AM PLC CONTROLS ENGINEER 10/18/2023 8:35 AM PLC CONTROLS ENGINEER Christina Roe PA-C LAB - BLOOD OR DERABLES [facility] [facility] [address] [facility] [address], [address] [address], [facility] [phone] * SSB La LEELEE Antibody IgG (10/18/2023 8:35 AM PLC CONTROLS ENGINEER) SSB [place] IgG Instrument Value <0.6 <7.0 U/mL 10/19/2023 5:38 PM PLC CONTROLS ENGINEER [facility] CORE/PROT/END O SSB ([place]) Antibody IgG Negative Negative 10/19/2023 5:38 PM PLC CONTROLS ENGINEER SPECIALTY CORE/PROT/END O Blood BLOOD SPECIMEN / Unknown Venipuncture / Unknown 10/18/2023 8:35 AM PLC CONTROLS ENGINEER 10/18/2023 8:35 AM PLC CONTROLS ENGINEER Christina Roe PA-C LAB - BLOOD OR DERABLES [facility] CORE/PROT/ENDO Specialty Core/Prot/Endo [address] [facility] [address] [facility], [address] [address], [facility] [phone] * SSA Ro LEELEE Antibody IgG (10/18/2023 8:35 AM PLC CONTROLS ENGINEER) SSA [place] IgG Instrument Value <0.5 <7.0 U/mL 10/19/2023 5:38 PM PLC CONTROLS ENGINEER SPECIALTY CORE/PROT/END O SSA (Ro) Antibody IgG Negative Negative 10/19/2023 5:38 PM PLC CONTROLS ENGINEER SPECIALTY CORE/PROT/END O Blood BLOOD SPECIMEN / Unknown Venipuncture / Unknown 10/18/2023 8:35 AM PLC CONTROLS ENGINEER 10/18/2023 8:35 AM PLC CONTROLS ENGINEER Christina Roe PA-C LAB - BLOOD OR DERABLES SPECIALTY CORE/PROT/ENDO Specialty Core/Prot/Endo [address] [facility] [address] Building, [address] [address] [phone] * Rheumatoid factor (10/18/2023 8:35 AM PLC CONTROLS ENGINEER) Rheumatoid Factor <10 <14 IU/mL 10/18/2023 12:25 PM PLC CONTROLS ENGINEER [facility] Blood BLOOD SPECIMEN / Unknown Venipuncture / Unknown 10/18/2023 8:35 AM PLC CONTROLS ENGINEER 10/18/2023 8:35 AM PLC CONTROLS ENGINEER Christina Roe PA-C LAB - BLOOD OR DERABLES [facility] [place] [facility] [address] [facility], [address] [address] [phone] * Erythrocyte sedimentation rate auto (10/18/2023 8:35 AM PLC CONTROLS ENGINEER) Erythrocyte Sedimentation Rate 14 0 - 30 mm/hr 10/18/2023 8:49 AM PLC CONTROLS ENGINEER [facility] Blood BLOOD SPECIMEN / Unknown Venipuncture / Unknown 10/18/2023 8:35 AM PLC CONTROLS ENGINEER 10/18/2023 8:35 AM PLC CONTROLS ENGINEER Christina Roe PA-C LAB - BLOOD OR DERABLES [facility] [place] [place] [address], [facility] * Cyclic Citrullinated Peptide Antibody IgG (10/18/2023 8:35 AM PLC CONTROLS ENGINEER) Cyclic Citrullinated Peptide Antibody IgG 1.0 <7.0 U/mL 10/19/2023 5:39 PM PLC CONTROLS ENGINEER SPECIALTY CORE/PROT/END O Comment:Negative Blood BLOOD SPECIMEN / Unknown Venipuncture / Unknown 10/18/2023 8:35 AM PLC CONTROLS ENGINEER 10/18/2023 8:35 AM PLC CONTROLS ENGINEER Christina Roe PA-C LAB - BLOOD OR DERABLES [facility] SPECIAL[facility] CORE/PROT/ENDO [facility] Specialty Core/Prot/Endo [address] [facility], [address] [address] [phone] * CRP inflammation (10/18/2023 8:35 AM PLC CONTROLS ENGINEER) CRP Inflammation <3.00 <5.00 mg/L 10/18/19 24 12:25 PM PLC CONTROLS ENGINEER [facility] Blood BLOOD SPECIMEN / Unknown Venipuncture / Unknown 10/18/2023 8:35 AM PLC CONTROLS ENGINEER 10/18/2023 8:35 AM PLC CONTROLS ENGINEER Christina Roe PA-C LAB - BLOOD OR DERABLES Performing Organization Address City/[facility]/ZIP Co de Phone Number [facility] [place] [facility] [address] [facility], [address] [address], [facility] [phone] documented in this encounter Visit Diagnoses Diagnosis Polyarthralgia- Primary Pain in joint, multiple sites Myalgia Mylagia and myositis, unspecified Joint stiffness Stiffness of joint, not elsewhere classified, unspecified site Polyarthralgia Pain in joint, multiple sites Myalgia Mylagia and myositis, unspecified Joint stiffness Stiffness of joint, not elsewhere classified, unspecified site documented in this encounter Care Teams Business Analysis Analyst Relationship Specialty Start Date End Date Feliciano Uribe MD [address] [address] PCP - General Family Medicine 06/01/23 documented as of this encounter
--- OUTSIDE RECORDS SUMMARY | 2024-01-02 07:32 | XMS_ITS | Encounter Summary ---
Author Name Unknown Organization [facility] Address [address] [place] [address] Care Team Providers Care General Accountant Name Role Phone Feliciano Uribe MD Primary Care Provider Christina Roe PA-C Unavailable [phone] Christina Roe PA-C Unavailable [phone] Reason for Visit * Reason Comments RECHECK Encounter Details Date Type Department Care Team (Late st Contact Info) Description 12/13/2023 12:00 PM CDT Office Visit [address] [place] [address] Christina Roe PA-C [address] [place] [address] Polymyalgia rheumatica (H24) (Primary Dx); On prednisone therapy Social History Tobacco Use Types Packs/Day Years [...] * Patient Instructions* Christina Roe PA-C - 12/13/2023 12:00 PM CDT After Visit Instructions: Thank you for coming to [facility] Rheumatology for your care. It is my goal to partner withkaiser hayward to help you reach your optimal state of health. Plan: Schedule follow-up with Christina Roe PA-C in 3 months. Medication recommendations: Prednisone 5mg: take 2 tablets daily for 2 weeks, then take 1 tablet and 4 of the 1mg tablets for atotal daily dose of 9mg daily for 2 weeks, You will continue to decrease your dose by 1mg every 2 weeks. Christina Roe PA-C [facility] Rheumatology [facility] Contact information: [facility] Clinic Number: [phone] Please call or send a [employer] message with any questions about your care documented in this encounter Progress Notes * Christina Roe PA-C - 12/13/2023 12:00 PM CDT Rheumatology Clinic Visit [facility] MAURILIO Woodardgilbert [place] Barbara Date of : 1945 Age: [age] year old Date of Visit: 12/13/2023 Primary care provider: Feliciano Uribe Assessment and Plan: Polymyalgia rheumatica On Prednisone therapy Patient presents today for follow-up. She states that her symptoms significantly improved with the use of the prednisone. She has been off of it for almost a week. She does notice some stiffness still in her upper arms and shoulders but states that things are significantly better. She is now able to get out of bed as and get herself dressed without difficulty. Certainly her symptoms are suggestive of polymyalgia rheumatica. With the dramatic improvement with prednisone, would recommend that we complete a course of prednisone for treating polymyalgia rheumatica. Will have her go back on prednisone at 10 mg daily for which she will take this for 2 weeks. She will then taper by 1 mg every 2 weeks. She will follow-up with me in 3 months, sooner if needed. Plan: Schedule follow-up with Christina Roe PA-C in 3 months. Medication recommendations: Prednisone 5mg: take 2 tablets daily for 2 weeks, then take 1 tablet and 4 of the 1mg tablets for atotal daily dose of 9mg daily for 2 weeks, You will continue to decrease your dose by 1mg every 2 weeks. Christina Roe, LOC[facility]IN [facility] Rheumatology History of Present Illness: Gato Jimenez presents for evaluation of neck pain. Interval history December 13, 2023: She is doing significantly better. She still has some stiffness in her shoulders/upper arms, but this is much better. She is able to get dressed now without difficultly like before. She has not had any stomach upset. She is sleeping okay. She does get an infusion yearly for her bone density. Interval history November 06, 2023: She was started on 10mg daily of Prednisone. She states that this has not done much for her. She states that she has pain in her neck down to her elbows. She can not lift things. She has pain in her ankles. She states that years ago she took high doses of Prednisone for pseudogout. In the recent past she has gone to the ER and was given steroids and a muscle relaxant and this helped quite a bit. She states that the last injection for the low back has is starting worsen. She states that her ankles go out. She states that she feels 'beside' herself due to her pain. She ahs started to notice numbness in her right hand. She had a blister on her thumb and pointer. 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 Provider to review Hyperlipidemia 03/14/2010 Priority: Medium Primary hypertension 03/14/2010 Priority: Medium Past Medical History: No past medical history on file. Past Surgical History: Procedure Laterality Date GASTRIC BYPASS JOINT REPLACEMENT Right Social History: Social History Socioeconomic History Marital status: Spouse name: Not on file Number of children: Not on file Years of education: Not on file Highest education level: Not on file Occupational History Not on file Tobacco Use Smoking status: Never Passive exposure: Past Smokeless tobacco: Never Substance and Sexual Activity Alcohol use: Yes Comment: occasional wine Drug use: Never Sexual activity: Not on file Other Topics Concern Not on file Social History Narrative Not on file Social Determinants of Health Financial Resource Strain: Low Risk (10/10/2022) Received from [facility] Overall Financial Resource Strain (CARDIA) Difficulty of Paying Living Expenses: Not hard at all Food Insecurity: No Food Insecurity (10/10/2022) Received from [facility] Hunger Vital Sign Worried About Running Out of Food in the Last Year: Never true Ran Out of Food in the Last Year: Never true Transportation Needs: No Transportation Needs (10/10/2022) Received from [facility] PRAPARE - Transportation Lack of Transportation (Medical): No Lack of Transportation (Non-Medical): No Physical Activity: Insufficiently Active (10/10/2022) Received from [facility] Exercise Vital Sign Days of Exercise per Week: 2 days Minutes of Exercise per Session: 40 min Stress: No Stress Concern Present (10/10/2022) Received from [facility] Citizen Of [place] of Occupational Health - Occupational Stress Questionnaire Feeling of Stress : Only a little Social Connections: Socially Integrated (10/10/2022) Received from [facility] Social Connection and Isolation Panel [NHANES] Frequency of Communication with Friends and Family: Twice a week Frequency of Social Gatherings with Friends and Family: Twice a week Attends [employer] Services: More than 4 times per year Active Member of Clubs or Organizations: Yes Attends Club or Organization Meetings: 1 to 4 times per year Marital Status: Interpersonal Safety: Not At Risk (10/10/2022) Received from [facility] Humiliation, Afraid, Rape, and Kick questionnaire Fear of Current or Ex-Partner: No Emotionally Abused: No Physically Abused: No Sexually Abused: No Housing Stability: Low Risk (10/10/2022) Received from [facility] Housing Stability Vital Sign Unable to Pay for Housing in the Last Year: No Number of Places Lived in the Last Year: 1 Unstable Housing in the Last Year: No Family History: No family history on file. Allergies: 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 Medications: Current Outpatient Medications Medication Sig Dispense Refill amLODIPine (NORVASC) 10 MG tablet Take 1 tablet by mouth daily at 2 pm amoxicillin (AMOXIL) 500 MG capsule TAKE 4 CAPSULES BY MOUTH 1 HOUR BEFORE DENTAL APPOINTMENT FOR 1DOSE atorvastatin (LIPITOR) 10 MG tablet Take 10 mg by mouth at bedtime D3-50 1.25 MG (01332 UT) capsule Take 1,250 mcg by mouth once a week FLUoxetine (PROZAC) 40 MG capsule Take 40 mg by mouth daily HYDROcodone-acetaminophen (NORCO) 5-325 MG tablet Take 1 tablet by mouth every 8 hours as needed for pain levothyroxine (SYNTHROID/LEVOTHROID) 150 MCG tablet Take 150 mcg by mouth daily lisinopril (ZESTRIL) 10 MG tablet Take 10 mg by mouth 2 times daily metoprolol tartrate (LOPRESSOR) 25 MG tablet Take 25 mg by mouth 2 times daily nitroGLYcerin (NITROSTAT) 0.[address] 0.4 mg under the tongue predniSONE (DELTASONE) 1 MG tablet Take 4 tablets in addition to 1 of the 5mg tablets for a total daily dose of 9mg daily for 2 weeks, You will continue to decrease your dose by 1mg every 2 weeks 120tablet 2 predniSONE (DELTASONE) 5 MG tablet take 2 tablets daily for 2 weeks, then take 1 tablet and 4 of the 1mg tablets for a total daily dose of 9mg daily for 2 weeks, You will continue to decrease your dose by 1mg every 2 weeks 90 tablet 2 Physical Exam: Blood pressure 138/68, pulse 61, weight 65.9 kg (145 lb 3.2 oz), SpO2 97%. Wt Readings from Last 6 Encounters: 12/13/23 65.9 kg (145 lb 3.2 oz) 11/06/23 66.1 kg (145 lb 11.6 oz) 10/18/23 66.1 kg (145 lb 11.2 oz) Constitutional: well-developed, appearing stated age; cooperative Eyes: nl conjunctiva, sclera ENT: nl external ears, nose, hearing, lips, Neck: no mass or thyroid enlargement Resp: No shortness of breath with normal conversation Psych: nl judgement, orientation, memory, affect. Data: Imaging: XR Knee Bilateral 3 Views Impression FINDINGS: Right knee: Moderate tricompartmental joint space narrowing. Chondrocalcinosis in the medial and lateral compartments. No effusion. Small dorsal patellar osteophytic spurring. Left knee: Mild tricompartmental joint space narrowing. Chondrocalcinosis in the lateral compartment. No effusion. X-ray bilateral hands 10/18/2023 IMPRESSION: No fractures. 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 Mild chondrocalcinosis in the TFCCs bilaterally. Laboratory: SSA negative, SSB negative Sed rate 14 Rheumatoid factor less than 10 CCP antibody 1.0 CRP less than 3.0 CK 53 Aldolase 6.3 documented in this encounter Plan of Treatment Upcoming Encounters Date Type Department Care Team (Late st Contact Info) Description 03/20/2024 10:30 AM CDT Office Visit [address] [phone] Christina Roe PA-C [address] [place] [address] documented as of this encounter Visit Diagnoses Diagnosis Polymyalgia rheumatica (H24)- Primary Polymyalgia rheumatica On prednisone therapy documented in this encounter Care Teams General Accountant Relationship Specialty Start Date End Date Feliciano Uribe MD [facility] & [address] [address] PCP - General Family Medicine 06/01/23 Christina Roe PA-C [address] [place] [address] Physician Towboat Engineer Rheumatology 11/06/23 Christina Roe PA-C [address] [place] [address] Assigned Rheumatology Provider 11/09/23 documented as of this encounter
--- OUTSIDE RECORDS SUMMARY | 2024-01-02 07:32 | XMS_ITS | Encounter Summary ---
Author Name Unknown Organization [facility] Address [address] [place] [address] Care Team Providers Care Fitter Hand Name Role Phone Feliciano Uribe MD Primary Care Provider Christina Roe PA-C Unavailable [phone] Christina Roe PA-C Unavailable Encounter Details Date Type Department Care Team (Late Contact Info) Description 04/24/2013 Abstract [facility] [place] Psychology [address] [place] [phone] Iris Hernandez [facility] [address] [facility] [address] [place] [address] Social History Tobacco Use Types Packs/Day Years Used Date Smoking Tobacco: Never Assessed Sex and Gender Information Value Date Recorded Sex Assigned at Not on file Gender Identity Not on file Sexual Orientation Not on file documented as of this encounter Plan of Treatment Upcoming Encounters Date Type Department Care Team (Late st Contact Info) Description 03/20/2024 10:30 AM CDT Office Visit [facility] [address] [facility] [address] [place] [phone] Christina Roe PA-C [address] [place], [place] [phone] documented as of this encounter Visit Diagnoses Not on filedocumented in this encounter Care Teams Fitter Hand Relationship Specialty Start Date End Date Feliciano Uribe MD [facility] - [address] [address] PCP - General Family Medicine 06/01/23 Christina Roe PA-C [address] [place] [address] Physician Pace Analyst Rheumatology 11/06/23 Christina Roe PA-C [address] [place] [address] Assigned Rheumatology Provider 11/09/23 documented as of this encounter
--- OUTSIDE RECORDS SUMMARY | 2024-01-02 07:32 | XMS_ITS | Encounter Summary ---
Author Name Unknown Organization [facility] Address [address] [place] [address]. [place] [address] Care Team Providers Care Mold Repairer Name Role Phone Feliciano Uribe MD Primary Care Provider Christina Roe PA-C Unavailable Reason for Visit * Reason Comments RECHECK Joint and muscle claudia n Encounter Details Date Type Department Care Team (Late st Contact Info) Description 11/06/2023 2:30 PM CDT Virtual Visit [facility] [address] [place] [phone] Christina Roe PA-C [address] [place] [address] Myalgia (Primary Dx); Polyarthralgia; Joint stiffness Social History Tobacco Use Types [...] - Inhaled Oxygen Concentration - - Weight 66.1 kg (145 lb 11.6 oz) 11/06/2023 1:15 PM CDT as of 10/18/23 Height - - Body Mass Index - - documented in this encounter Patient Instructions * Patient Instructions* Christina Roe PA-C - 11/06/2023 2:30 PM CDT After Visit Instructions: Thank you for coming to [facility] Rheumatology for your care. It is my goal to partner withyou to help you reach your optimal state of health. Plan: Schedule follow-up with Christina Roe PA-C in 2 months Medications: increase Prednisone to 1.5 tablets daily-send me a message next week and let me know if there is improvement with that increased dose. Christina Roe PA-C [facility] Rheumatology [facility] Contact information: [facility] Rheumatology Clinic Number: [phone] Please call or send a [employer] message with any questions about your care documented in this encounter Progress Notes * Christina Roe PA-C - 11/06/2023 2:30 PM CDT Gato is a 78 year old who is being evaluated via a billable video visit. How would you like to obtain your AVS? MyChart If the video visit is dropped, the invitation should be resent by: Send to e- mail at: [email or web address] Will anyone else be joining your video visit? No Will you be in [place] for the visit? Yes Please send text to [phone] Video-Visit Details Type of service: Video Visit Video Start Time: 2:20 PM Video End Time:2:28 PM Originating Location (pt. Location): Home Distant Location (provider location): On-site Platform used for Video Visit: [facility] Rhe[facility]ology Clinic Visit [facility] MAURILIO Woodard Gato Jimenez Date of : 1945 Age: [age] year old Date of Visit: 11/06/2023 Primary care provider: Feliciano Uribe Assessment and Plan: Polyarthralgia Myalgia Joint stiffness Patient presents today for follow-up. She was having increased pain in her neck down her arms into her elbows. She states at times she finds that it is difficult to hold a coffee cup or carry things.We put her on 10 mg daily of prednisone. She states that there is been a very minor improvement butthere still continues to be a significant amount of symptoms. We did review that the autoimmune workup that I did all returned to normal/negative. Polymyalgia rheumatica is still on the differential even with the CRP and sed rate being normal. However she does also report having symptoms in her ankles which would not be related to polymyalgia rheumatica. She also describes having numbness and blisters on her right hand which also would not be related to polymyalgia rheumatica. I strongly recommended that she schedule an appointment with her primary care provider given the numbness in the handand blisters on her finger. At this time we will increase the prednisone to 15 mg daily. She will message me next week and depending on if there is improvement we will either increase the dose further, continue on that dose for another week, or have her follow-up with primary care. Tentative plan will be for the patient to follow-up with me in 2 months, but it will depend on if she has improvement with the prednisone at 15 mg. Plan: Schedule follow-up with Christina Roe PA-C in 2 months Medications: increase Prednisone to 1.5 tablets daily-send me a message next week and let me know if there is improvement with that increased dose. MA[facility] Rheumatology History of Present Illness: Gato Jimenez presents for evaluation of neck pain. Interval history November 06, 2023: She was [...] by mouth at bedtime D3-50 1.25 MG (17143 UT) capsule Take 1,250 mcg by mouth [...] 0.4 mg under the tongue predniSONE (DELTASONE) 10 MG tablet Take 1 tablet (10 mg) by mouth daily 30 tablet 0 Physical Exam: There were no vitals taken for this visit. Wt Readings from Last 6 Encounters: 10/18/23 [...] altered joint anatomy. Full joint ROM. Normal commissioner of relocation services strength. No dactylitis, tenosynovitis, enthesopathy. She did [...] less than 3.0 CK 53 Aldolase 6.3 * Nancy Peace CMA - 11/06/2023 1:55 PM CDT Patient reports she has a primary provider who is treating her for depression at this time. documented in this encounter Plan of Treatment Upcoming Encounters Date Type Department Care Team (Late st Contact Info) Description 03/20/2024 10:30 AM CDT Office Visit [address] [place] [address] Christina Roe PA-C [address] [place] [address] documented as of this encounter Visit Diagnoses Diagnosis Myalgia- Primary Mylagia and myositis, unspecified Polyarthralgia Pain in joint, multiple sites Joint stiffness Stiffness of joint, not elsewhere classified, unspecified site documented in this encounter Care Teams Mold Repairer Relationship Specialty Start Date End Date Feliciano Uribe MD [address] [address] PCP - General Family Medicine 06/01/23 Christina Roe PA-C [address] [place] [address] Physician Match Marker Rheumatology 11/06/23 documented as of this encounter
--- OUTSIDE RECORDS SUMMARY | 2024-01-02 07:32 | XMS_ITS | Clinical Summary ---
Author Name Unknown Organization [facility] Address [address] [place] [address] Care Team Providers Care Senior Etl Developer Name Role Phone Feliciano Uribe MD Primary Care Provider [phone] Source Comments You are receiving this document as you are listed as the primary care provider,follow-up provider, or the patient has been referred to you for consultation.This is in compliance with the Medicare andShel[facility] Arms Hospitalcaid EHR Incentive Program,which states Providers who transition their patient to another setting of careor provider of care or refers their patient to another provider of care shouldprovide summary care record for each transition of care or referral. [facility] Allergies No known active allergies Medications Medication [...] a day. 03/27/2019 Active Cholecalciferol (VITAMIN D3) 25689 units TABS 03/27/2019 Active levothyroxine (SYNTHROID) 137 [...] every week. Take 30 minutes before first [id number] n. Avoid lying down for 30 minutes. 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
--- OUTSIDE RECORDS SUMMARY | 2024-01-02 07:32 | XMS_ITS | Encounter Summary ---
Author Name Unknown Organization [facility] Address [address] [place] [address] Care Team Providers Care Client Support Consultant Name Role Phone Feliciano Uribe MD Primary Care Provider [phone] Christina Roe PA-C Unavailable Christina Roe PA-C Unavailable Reason for Visit * Reason Onset Date Comments Appointment 10/23/2023 Encounter Details Date Type Department Care Team (Late st Contact Info) Description 10/23/2023 [facility] Medical Advice [address] [place] [address] Christina Roe PA-C [address] [place], [place] [phone] Appointment Social History Tobacco Use Types Packs/Day Years Used Date Smoking Tobacco: Never Assessed Adolescent Education Answer Date Record ed Getting School Help Needed Not on file 05/31 Sex and Gender Information Value Date Recorded Sex Assigned at Not on file Gender Identity Not on file Sexual Orientation Not on file documented as of this encounter Miscellaneous Notes * Telephone Encounter - Shayy Michelle - 11/20/2023 11:57 AM CDT LVM * Telephone Encounter - Brenda Hartley - 11/05/2023 12:04 PM CDT Lvm x2 * Telephone Encounter - Brenda Hartley - 10/23/2023 3:24 PM CST lvm EPOINT CONSULTANT * Telephone Encounter - Smiley Perez - 10/23/2023 2:23 PM CST [facility] Phone Message May a detailed message be left on voicemail: yes Reason for Call: Other: Patient called to schedule 1 month follow up appt per previous communication w/ Christina, technical proposal writer tried to schedule but did not see any available appts for Chirstina until 12/26. Please advise. Action Taken: Other: RHEUM Travel Screening: Not Applicable EPOINT CONSULTANT * Telephone Encounter - Jonelle Aguirre RN - 10/23/2023 8:45 AM CST To provider to review and advise, I do not see any new medication that pt is referring to. Jonelle Aguirre [facility] RN EPOINT CONSULTANT documented in this encounter Plan of Treatment Upcoming Encounters Date Type Department Care Team (Late st Contact Info) Description 03/20/2024 10:30 AM CDT Office Visit [facility] [address] [facility] [address] [place] [address] Christina Roe PA-C [address] [place], [place] [phone] documented as of this encounter Visit Diagnoses Diagnosis Polyarthralgia- Primary Pain in joint, multiple sites Myalgia Mylagia and myositis, unspecified documented in this encounter Care Teams Client Support Consultant Relationship Specialty Start Date End Date Ailabouni, Feliciano, MD [facility] - [address] [address] PCP - General Family Medicine 06/01/23 Christina Roe PA-C [address] [place] [address] Physician Patching Machine Operator Rheumatology 11/06/23 Christina Roe PA-C [address] [place] [address] Assigned Rheumatology Provider 11/09/23 documented as of this encounter
--- OUTSIDE RECORDS SUMMARY | 2024-01-02 07:32 | XMS_ITS | Encounter Summary ---
Author Name Unknown Organization [place] Address [address] [place] [address]. [place] [address] Care Team Providers Care Group Worker Name Role Phone Feliciano Uribe MD Primary Care Provider Christina Roe PA-C Unavailable Christina Roe PA-C Unavailable [phone] Reason for Visit * Reason Onset Date Comments Patient/info Update 12/07/2023 Encounter Details Date Type Department Care Team (Late st Contact Info) Description 12/07/[address] [address] Christina Roe PA-C [address] [place] [address] Patient/info Update Social History Tobacco Use Types Packs/Day Years [...] encounter Miscellaneous Notes * Telephone Encounter - Christina Roe PA-C - 12/07/2023 9:56 AM CDT Message reviewed. MAURILIO Woodard * Telephone Encounter - Shon Mendenhalla - 12/07/2023 9:07 AM CDT [facility] Call Center Phone Message May a detailed message be left on voicemail: no Reason for Call: Other: Per pt would like provider to know the prednisone has helped a lot. Just a Fyi. Action Taken: Other: rheum Travel Screening: Not Applicable documented in this encounter Plan of Treatment Upcoming Encounters Date Type Department Care Team (Late st Contact Info) Description 03/20/2024 10:30 AM CDT Office Visit [address] [address] Christina Roe PA-C [address] [place] [address] documented as of this encounter Visit Diagnoses Not on filedocumented in this encounter Care Teams Group Worker Relationship Specialty Start Date End Date Feliciano Uribe MD [address] [address] PCP - General Family Medicine 06/01/23 Christina Roe PA-C [address] [place] [address] Physician Assistant To The Director Rheumatology 11/06/23 Christina Roe PA-C [address] [place] [address] Assigned Rheumatology Provider 11/09/23 documented as of this encounter
--- OUTSIDE RECORDS SUMMARY | 2024-01-02 07:32 | XMS_ITS | Encounter Summary ---
Author Name Unknown Organization [place] Address [address] [place] [address]. [place] [address] Care Team Providers Care Inside Sales Director Name Role Phone Feliciano Uribe MD Primary Care Provider [phone] Christina Roe PA-C Unavailable [phone] Encounter Details Date Type Department Care Team (Latest Contact Info) Description 11/06/2023 Travel Social History Tobacco Use Types Packs/Day Years [...] Description 03/20/2024 10:30 AM CDT Office Visit [address] [address] Christina Roe PA-C [address] [place] [address] documented as of this encounter Visit Diagnoses Not on filedocumented in this encounter Care Teams Inside Sales Director Relationship Specialty Start Date End Date Feliciano Uribe MD [facility] [address] [place] [address] PCP - General Family Medicine 06/01/23 Christina Roe PA-C [address] [place] [address] Physician Boiler Tender Rheumatology 11/06/23 documented as of this encounter
--- OUTSIDE RECORDS SUMMARY | 2024-01-02 07:32 | XMS_ITS | Encounter Summary ---
Author Name Unknown Organization [place] Address [address] [place] [address]. [place] [address] Care Team Providers Care Manager Of Internal Name Role Phone Feliciano Uribe MD Primary Care Provider [phone] Encounter Details Date Type Department Care Team (Latest Contact Info) Description 10/18/2023 Travel Social History Tobacco Use Types Packs/Day [...] 03/20/2024 10:30 AM CDT Office Visit [address] [place] [address] Christina Roe PA-C [address] [place] [address] documented as of this encounter Visit Diagnoses Not on filedocumented in this encounter Care Teams Manager Of Internal Relationship Specialty Start Date End Date Feliciano Uribe MD [facility] [address] [place] [address] PCP - General Family Medicine 06/01/23 documented as of this encounter
--- OUTSIDE RECORDS SUMMARY | 2024-01-02 07:32 | XMS_ITS | Encounter Summary ---
Author Name Unknown Organization [place] Address [address] [place] [address]. [place] [address] Care Team Providers Care Three Dimensional Art Instructor Name Role Phone Feliciano Uribe MD Primary Care Provider Christina Roe PA-C Unavailable [phone] Christina Roe PA-C Unavailable [phone] Encounter Details Date Type Department Care Team (Latest Contact Info) Description 12/13/2023 Travel Social History Tobacco Use Types Packs/Day [...] Description 03/20/2024 10:30 AM CDT Office Visit [address] [place] [address] Christina Roe PA-C [address] [place] [address] documented as of this encounter Visit Diagnoses Not on filedocumented in this encounter Care Teams Three Dimensional Art Instructor Relationship Specialty Start Date End Date Feliciano Uribe MD [facility] [address] [place] [address] PCP - General Family Medicine 06/01/23 Christina Roe PA-C [address] [place] [address] Physician Banking Attorney Rheumatology 11/06/23 Christina Roe PA-C [address] [place] [address] Assigned Rheumatology Provider 11/09/23 documented as of this encounter
--- OUTSIDE RECORDS SUMMARY | 2024-01-02 07:32 | XMS_ITS | Encounter Summary ---
Author Name Unknown Organization [place] Address [address] [place] [address] Care Team Providers Care Accounts Payable Coordinator Name Role Phone Feliciano Uribe MD Primary Care Provider [phone] Reason for Referral * Diagnostic Imaging XR (Routine) - Pending Review Specialty Diagnoses / Procedures Referred By Amena prasad Referred To Contact Radiology. Diagnoses Polyarthralgia Myalgia Joint stiffness Procedures XR Hand Bilateral G/E 3 Views Christina Roe PA-C [address] [place] [address] Referral ID Status Reason Start Date Expiration Date V isits Requested Visits Authorized [id number] Pending Review 10/18/2023 10/17/2024 1 1 O GAME TESTER Reason for Visit * Diagnostic Imaging XR (Routine) - Pending Review Specialty Diagnoses / Procedures Referred By Amena prasad Referred To Contact Radiology. Diagnoses Polyarthralgia Myalgia Joint stiffness Procedures XR Hand Bilateral G/E 3 Views Christina Roe PA-C [address] [place] [address] Referral ID Status Reason Start Date Expiration Date V isits Requested Visits Authorized [id number] Pending Review 10/18/2023 10/17/2024 1 1 Encounter Details Date Type Department Care Team (Latest Contact Info) Description 10/18/2023 8:38 AM VIDEO GAME TESTER - 10/18/2023 11:59 PM VIDEO GAME TESTER Hospital Encounter [facility] [address] [facility] [address] [place] [address] Christina Roe PA-C [address] [place] [address] Polyarthralgia; Myalgia; Joint stiffness Discharge Disposition: Home or Self Care Social History Tobacco Use Types Packs/Day Years Used Date Smoking Tobacco: Never Assessed Adolescent Education Answer Date Record ed Getting School Help Needed Not on file 05/31 Sex and Gender Information Value Date Recorded Sex Assigned at Not on file Gender Identity Not on file Sexual Orientation Not on file documented as of this encounter Medications at Time of Discharge Medication Sig Dispensed Refills Start Date End Date amLODIPine (NORVASC) 10 MG tablet Take 1 tablet by mouth daily at 2 pm 10/14/2023 amoxicillin (AMOXIL) 500 MG capsule TAKE 4 CAPSULES BY MOUTH 1 HOUR BEFORE DENTAL APPOINTMENT FOR 1 DOSE 11/06/2022 atorvastatin (LIPITOR) 10 MG tablet Take 10 mg by mouth at bedtime D3-50 1.25 MG (47651 UT) capsule Take 1,250 mcg by mouth once a week FLUoxetine (PROZAC) 40 MG capsule Take 40 mg by mouth daily HYDROcodone-acetaminoph en (NORCO) 5-325 MG tablet Take 1 tablet by mouth every 8 hours as needed for pain 12/27/2022 levothyroxine (SYNTHROID/LEVOTHROID) 150 MCG tablet Take 150 mcg by mouth daily lisinopril (ZESTRIL) 10 MG tablet Take 10 mg by mouth 2 times daily 09/14/2023 metoprolol tartrate (LOPRESSOR) 25 MG tablet Take 25 mg by mouth 2 times daily 09/14/2023 nitroGLYcerin (NITROSTAT) 0.[address] 0.4 mg under the tongue 11/21/2021 documented as of this encounter Plan of Treatment Upcoming Encounters Date Type Department Care Team (Late st Contact Info) Description 03/20/2024 10:30 AM CDT Office Visit [facility] [address] [facility] [address] [place] [address] Christina Roe PA-C [address] [place] [address] documented as of this encounter Procedures Procedure Name Priority Date/Time Associated Diagnosis Comments XR HAND BILATERAL G/E 3 VIEWS Routine 10/18/2023 8:44 AM VIDEO GAME TESTER Polyarthralgia Myalgia Joint stiffness documented in this encounter Results * XR Hand Bilateral G/E 3 Views (10/18/2023 8:44 AM VIDEO GAME TESTER) Anatomical Region Laterality Modality Hand, Wrist Bilateral Digital Radiogra phy 10/18/2023 8:44 AM VIDEO GAME TESTER Impressions 10/18/2023 12:27 PM VIDEO GAME TESTER IMPRESSION: No fractures. 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 Mild chondrocalcinosis in the TFCCs bilaterally. Narrative 10/18/2023 12:27 PM VIDEO GAME TESTER EXAM: XR HAND BILATERAL G/E 3 VIEWS LOCATION: [facility] DATE: 10/18/2023 INDICATION: Polyarthralgia, myalgia, joint stiffness. COMPARISON: None. Procedure Note Brenden Odell MD - 10/18/2023 EXAM: XR HAND BILATERAL G/E 3 VIEWS LOCATION: [facility] DATE: 10/18/2023 INDICATION: Polyarthralgia, myalgia, joint stiffness. COMPARISON: None. IMPRESSION: No fractures. Moderate degenerative changes at the left andright STT and 1st CMC joints. Mild chondrocalcinosis in the TFCCsbilaterally. Christina Roe PA-C IMG DIAGNOSTIC IMAGING ORDERABLES documented in this encounter Visit Diagnoses Diagnosis Polyarthralgia Pain in joint, multiple sites Myalgia Mylagia and myositis, unspecified Joint stiffness Stiffness of joint, not elsewhere classified, unspecified site documented in this encounter Care Teams Accounts Payable Coordinator Relationship Specialty Start Date End Date Feliciano Uribe MD [address] [place] [address] PCP - General Family Medicine 06/01/23 documented as of this encounter
--- OUTSIDE RECORDS SUMMARY | 2024-01-02 07:32 | XMS_ITS | Referral Summary ---
Author Name Unknown Organization [facility] Address [address] [place] [address] Care Team Providers Care Legal Secretary Name Role Phone Unavailable Primary Care Provider Unavailabl e Source Comments Patient records contain information from all sites at [facility]. For routine questions regarding patient records, call [phone] during business hours, M-F 8:00 AM - 5:00 PM Central Time. Record requests for emergency care only can be directed to [phone] at any time.[facility] Allergies No known active allergies Medications Medication [...] Next Due Influenza, Unspecified 05/05/2011 PPSV23 11/28/2013,08/27/2007 Social History Tobacco Use Types Packs/Day [...] How often do you attend chur or adventism services? More than 4 times per year 10/10/2022 Do you belong to any clubs o r organizations such as caodaism groups, unions, fraternal or athletic groups, or [...] and heating? Not hard at all 10/10/2022 [facility] [place] [facility] - Occupational Stress [...] Sex Assigned at Female 10/10/2022 4:07 PM PARTNER CCO Gender Identity Female 07/16/2018 12:55 PM PARTNER CCO Sexual Orientation Straight 07/16/2018 12 :55 PM PARTNER CCO Last Filed Vital Signs Vital Sign Reading Time Taken Comments Blood Pressure 163/73 10/31/2022 12:17 PM PARTNER CCO Pulse 75 10/31/2022 12:17 PM PARTNER CCO Temperature 36.5 ??C (97.7 ??F) 10/31/2022 1 2:27 PM PARTNER CCO Respiratory Rate 20 10/31/2022 12:1 7 PM PARTNER CCO Oxygen Saturation 96% 10/31/2022 12: 17 PM PARTNER CCO Inhaled Oxygen Concentration - - Weight 55.2 kg (121 lb 11.1 oz) 11/01/2022 9:18 AM PARTNER CCO Height 152 cm (4' 11.84) 11/01/2022 9:18 AM PARTNER CCO Body Mass Index 23.89 11/01/2022 9:18 AM PARTNER CCO Plan of Treatment Not on file Medical Devices Implanted Type Area Nicker Device Identifier Shelf Expiration Date Model / Serial / Lot Knee Implant- 022 Implanted:01/2022 (Quantity not on file) Knee Implant Right: Knee Ocular Lens Ocular Lens Bilatera l: Eye Procedures Procedure Name Priority Date/Time Associated Diagnosis Comments COMPREHENSIVE METABOLIC PANEL, S/P Routine 10/17/2022 10:01 AM PARTNER CCO Bypass Gastric Suellen En Y Status Post EXTI THYROID-STIMULATING HORMONE-SENSITIVE (S-TSH), S Routine 07/26/2022 8:02 AM PARTNER CCO from Last 3 Months or Most Recently Relevant to Health Maintenance Results * Comprehensive Metabolic Panel (10/17/2022 10:01 AM PARTNER CCO) Pathologist [facility] Potassium, S 4.5 3.6 - 5.2 mmol/L 10/17/2022 11:02 AM PARTNER CCO DTL Sodium, S 141 135 - 145 mmol/L 10/17/2022 11:02 AM PARTNER CCO DTL Chloride, S 106 98 - 107 mmol/L 10/17/2022 11:02 AM PARTNER CCO DTL Bicarbonate, S 26 22 - 29 mmol/L 10/17/2022 11:02 AM PARTNER CCO DTL Anion Gap 9 7 - 15 10/17/2022 11:02 AM PARTNER CCO DTL BUN (Blood Urea Nitrogen), S 12 6 - 21 mg/dL 10/17/2022 11:02 AM PARTNER CCO DTL Creatinine 0.59 0.59 - 1.04 mg/dL 10/17/2022 11:02 AM PARTNER CCO DTL Estimated GFR (eGFR) >90 >=60 mL/min/BS A 10/17/2022 11:02 AM PARTNER CCO DTL Comment: Estimated GFR calculated using the 2020 CKD_EPI creatinine equation. Calcium, Total, S 9.7 8.8 - 10.2 mg/dL 10/17/2022 11:02 AM PARTNER CCO DTL Glucose, S 100 70 - 140 mg/dL 10/17/2022 11:02 AM PARTNER CCO DTL Protein, Total, S 6.8 6.3 - 7.9 g/dL 10/17/2022 11:02 AM PARTNER CCO DTL Albumin, S 4.5 3.5 - 5.0 g/dL 10/17/2022 11:02 AM PARTNER CCO DTL Aspartate Aminotransferase (AST), S 23 8 - 43 U/L 10/17/2022 11:02 AM PARTNER CCO DTL Alkaline Phosphatase, S 83 35 - 104 U/L 10/17/2022 11:02 AM PARTNER CCO DTL Alanine Aminotransferase (ALT), S 23 7 - 45 U/L 10/17/2022 11:02 AM PARTNER CCO DTL Bilirubin, Total, S 0.3 <=1.2 mg/dL 10/17/2022 11:02 AM PARTNER CCO DTL Blood (Blood, Venous) 10/17/2022 10:01 AM PARTNER CCO 10/17/2022 10:38 AM PARTNER CCO Merlyn Cobos M.D. LAB BLO OD ADD-ON [facility] [address] [place] [address], [facility] [address] [place] [address] from Last 3 Months or Most Recently Relevant to Health Maintenance
== END 2023-12-31 07:41 | disposition home or self-care (01) ==
LOC: NFLDREF 01-02 07:29
PROVIDERS: PCP Family Medicine; Referring Provider Family Medicine; Visit Provider Family Medicine
DX: E78.5 Hyperlipidemia, unspecified (principal); E03.9 Hypothyroidism, unspecified; I10 Essential (primary) hypertension
CPT/HCPCS: 80053; 80061; 84443

== ENCOUNTER 2024-01-11 09:03 | Outpatient (RCR) | payer MEDICARE, BC, SELFPAY ==
[2024-01-11 09:11] VITALS: BP 190/77; PULSE 70; RESP 19; TEMP 36.3; O2SAT 98
[2024-01-11 10:25] VITALS: BP 177/78; PULSE 60; RESP 14
[2024-01-11] MEDS: SODIUM CHLORIDE 0.9 % (FLUSH) 10 ML SYRINGE IVF (11:17)
[2024-01-11] MEDS: 0.9 % SODIUM CHLORIDE 250 ml IV ×2 (11:17→11:19)
--- NOTE | 2024-01-11 11:18 | ONC.NURNOTE ---
elevated bp on arrival. she states did not take am cardiac meds. her hubby brought them in. she took them. re checked pt. better. statred infusion 30 min after she took her meds,
== END 2024-07-09 23:59 | disposition home or self-care (01) ==
LOC: CCIC 09:03
PROVIDERS: PCP Family Medicine; Referring Provider Family Medicine; Visit Provider Clinical Nurse Specialist
DX: M81.0 Age-related osteoporosis without current pathological fracture (principal)
CPT/HCPCS: 96365; J3489; J7050

== ENCOUNTER 2024-01-17 14:38 | Outpatient (CLI) | payer MEDICARE, BC, SELFPAY ==
--- OUTSIDE RECORDS SUMMARY | 2024-01-17 14:41 | XMS_ITS | Encounter Summary ---
Author Organization [place] Address [address] [place] [address]. [place] [address] Care Team Providers Care Kersey Department Supervisor Name Role Phone Feliciano Uribe MD Primary Care Provider Christina Roe PA-C Unavailable Christina Roe PA-C Unavailable Reason for Visit * Reason Onset Date Comments Patient/info Update 12/07/2023 Encounter Details Date Type Department Care Team (Late st Contact Info) Description 12/07/[address] [address] Christina Roe PA-C [address] [place], [place] [id number] Patient/info Update Social History Tobacco Use Types [...] reviewed. MAURILIO Woodard * Telephone Encounter - Abdirashid Estefani - 12/07/2023 9:07 AM CDT [facility] Call Center Phone Message May a [...] Description 03/20/2024 10:30 AM CDT Office Visit [address] [address] Christina Roe PA-C [address] [place] [address] documented as of this encounter Visit Diagnoses Not on filedocumented in this encounter Care Teams [place]sey Department Supervisor Relationship Specialty Start Date End Date Feliciano Uribe MD [address] [address] PCP - General Family Medicine 06/01/23 Christina Roe PA-C [address] [place] [address] Physician System Administrator Rheumatology 11/06/23 Christina Roe PA-C [address] [place] [address] Assigned Rheumatology Provider 11/09/23 documented as of this encounter
--- OUTSIDE RECORDS SUMMARY | 2024-01-17 14:41 | XMS_ITS | Encounter Summary ---
Author Organization [place] Address [address] [place] [address] Care Team Providers Care It Teacher Name Role Phone Feliciano Uribe MD Primary Care Provider [phone] Christina Roe PA-C Unavailable [phone] Encounter Details Date Type Department Care Team [...] Description 03/20/2024 10:30 AM CDT Office Visit [address] [phone] Christina Roe PA-C [address] [place] [address] documented as of this encounter Visit Diagnoses Not on filedocumented in this encounter Care Teams It Teacher Relationship Specialty Start Date End Date Feliciano Uribe MD [facility] [address] [address] PCP - General Family Medicine 06/01/23 Christina Roe PA-C [address] [place] [address] Physician Material Preparation Worker Rheumatology 11/06/23 documented as of this encounter
--- OUTSIDE RECORDS SUMMARY | 2024-01-17 14:41 | XMS_ITS | Encounter Summary ---
Author Organization [place] Address [address] [place] [address]. [place] [address] Care Team Providers Care Manager Child Name Role Phone Feliciano Uribe MD Primary Care Provider [phone] Christina Roe PA-C Unavailable [phone] Christina Roe PA-C Unavailable [phone] Encounter Details Date Type Department Care Team [...] Description 03/20/2024 10:30 AM CDT Office Visit [address] [place] [address] Christina Roe PA-C [address] [place] [address] documented as of this encounter Visit Diagnoses Not on filedocumented in this encounter Care Teams Manager Child Relationship Specialty Start Date End Date Feliciano Uribe MD [facility] [address] [place] [address] PCP - General Family Medicine 06/01/23 Christina Roe PA-C [address] [place] [address] Physician Beauty Culturist Apprentice Rheumatology 11/06/23 Christina Roe PA-C [address] [place] [address] Assigned Rheumatology Provider 11/09/23 documented as of this encounter
--- OUTSIDE RECORDS SUMMARY | 2024-01-17 14:41 | XMS_ITS | Clinical Summary ---
Author Organization [place] Address [address] [place] [address] Care Team Providers Care Sales Operations Coordinator Name Role Phone Feliciano Uribe MD Primary Care Provider [phone] Christina Roe PA-C Unavailable Christina Roe PA-C [...] mouth at bedtime Active D3-50 1.25 MG (44753 UT) capsule Take 1,250 mcg by mouth once a week Active FLUoxetine (PROZAC) 40 MG capsule Take 40 mg by mouth daily Active HYDROcodone-acetam inophen (NORCO) 5-325 MG tablet Take 1 tablet by mouth every 8 hours as needed for pain 12/27/2022 Active levothyroxine (SYNTHROID/LEVOTHR OID) 150 MCG tablet Take 150 mcg by mouth daily Active lisinopril (ZESTRIL) 10 MG tablet Take 10 mg by mouth 2 times daily 09/14/2023 Active metoprolol tartrate (LOPRESSOR) 25 MG tablet Take 25 mg by mouth 2 times daily 09/14/2023 Active nitroGLYcerin (NITROSTAT) 0.[address] 0.4 mg under the tongue 11/21/2021 Active predniSONE (DELTASONE) 5 MG tabletIndications: Polymyalgia rheumatica (H24),On prednisone therapy take 2 tablets daily for 2 weeks, then take 1 tablet and 4 of the 1mg tablets for a total daily dose of 9mg daily for 2 weeks, You will continue to decrease your dose by 1mg every 2 weeks 90 tablet 2 12/13/2023 Active predniSONE (DELTASONE) 1 MG tabletIndications: Polymyalgia rheumatica (H24),On prednisone therapy Take 4 tablets in addition to 1 of the 5mg tablets for a total daily dose of 9mg daily for 2 weeks, You will continue to decrease your dose by 1mg every 2 weeks 120 tablet 2 12/13/2023 Active Active Problems Problem Noted Date Diagnosed [...] Description 12/13/2023 12:00 PM CDT Office Visit [facility] [address] [place] [address] [address] [place] [address] Christina Roe PA-C Polymyalgia rheumatica (H24) (Primary Dx); On prednisone therapy 12/13/2023 Travel 12/07/2023 Telephone [facility] [address] [place] [address] Christina Roe PA-C Patient/info Update 11/18/2023 [facility] Medical Advice [address] [address] Christina Roe PA-C Polyarthralgia; Myalgia 11/06/2023 2:30 PM CDT Virtual Visit [facility] [address] [place] [address] Christina Roe PA-C Myalgia (Primary Dx); Polyarthralgia; Joint stiffness 11/06/2023 Travel 10/23/2023 [facility] Medical Advice [address] [place] [address] Christina Roe PA-C Appointment from Last 3 Months Immunizations Name Administration [...] Description 03/20/2024 10:30 AM CDT Office Visit [address] [place] [phone] Christina Roe PA-C [address] [place] [address] Health Maintenance Due Date Last Done Comments [...] age to complete this topic Care Teams Sales Operations Coordinator Relationship Specialty Start Date End Date Feliciano Uribe MD [facility] [address] [place] [address] PCP - General Family Medicine 06/01/23 Christina Roe PA-C [address] [place] [address] Physician Greenhouse Manager Rheumatology 11/06/23 Christina Roe PA-C [address] [place] [address] Assigned Rheumatology Provider 11/09/23
--- OUTSIDE RECORDS SUMMARY | 2024-01-17 14:41 | XMS_ITS | Referral Summary ---
Author Organization [place] Address [address] [place] [address] Care Team Providers Care Head Chef Name Role Phone Feliciano Uribe MD Primary Care Provider [phone] Christina Roe PA-C Unavailable Christina Roe PA-C Unavailable Encounters Date Type Department Care Team Description 12/13/2023 Travel 12/13/2023 12:00 PM CDT Office Visit [facility] [address] [facility] [address] [place] [address] Christina Roe PA-C Polymyalgia rheumatica (H24) (Primary Dx); On prednisone therapy 12/07/2023 Telephone [facility] [address] [place] [address] Christina Roe PA-C Patient/info Update 11/18/2023 MyC Medical Advice [address] [address] Christina Roe PA-C Polyarthralgia; Myalgia 11/06/2023 Travel 11/06/2023 2:30 PM CDT Virtual Visit [facility] [address] [place] [address] Christina Roe PA-C Myalgia (Primary Dx); Polyarthralgia; Joint stiffness 10/23/2023 [facility] Medical Advice [address] [address] Christina Roe PA-C Appointment from Last 3 Months Allergies Active Allergy [...] mouth at bedtime Active D3-50 1.25 MG (05629 UT) capsule Take 1,250 mcg by mouth [...] 03/20/2024 10:30 AM CDT Office Visit [address] [place] [address] Christnia Roe PA-C [address] [place] [address] Care Teams Head Chef Relationship Specialty Start Date End Date Feliciano Uribe MD [address] [address] PCP - General Family Medicine 06/01/23 Christina Roe PA-C [address] [place] [address] Physician Transit Planner Rheumatology 11/06/23 Christina Roe PA-C [address] [place] [address] Assigned Rheumatology Provider 11/09/23
--- OUTSIDE RECORDS SUMMARY | 2024-01-17 14:41 | XMS_ITS | Encounter Summary ---
Author Organization [place] Address [address] [place] [address] Care Team Providers Care Base Filler Operator Name Role Phone Feliciano Uribe MD Primary Care Provider [phone] Christina Roe PA-C Unavailable Christina Roe PA-C Unavailable Encounter Details Date Type Department Care Team (Late st Contact Info) Description 11/18/2023 MyC Medical Advice [facility] [address] [place] [address] Christina Roe PA-C [address] [place] [address] Polyarthralgia; Myalgia Social History Tobacco Use Types [...] Description 03/20/2024 10:30 AM CDT Office Visit [address] [place] [address] Christina Roe PA-C [address] [place] [address] documented as of this encounter Visit Diagnoses Diagnosis Polyarthralgia Pain in joint, multiple sites Myalgia Mylagia and myositis, unspecified documented in this encounter Care Teams Base Filler Operator Relationship Specialty Start Date End Date Feliciano Uribe MD [address] [address] PCP - General Family Medicine 06/01/23 Christina Roe PA-C [address] [place] [address] Physician Ware Dresser Rheumatology 11/06/23 Christina Roe PA-C [address] [place] [address] Assigned Rheumatology Provider 11/09/23 documented as of this encounter
--- OUTSIDE RECORDS SUMMARY | 2024-01-17 14:41 | XMS_ITS | Encounter Summary ---
Author Organization [place] Address [address] [place] [address] Care Team Providers Care Field Pipe Lines Supervisor Name Role Phone Feliciano Uribe MD Primary Care Provider [phone] Christina Roe PA-C Unavailable Reason for Visit * Reason Comments RECHECK Joint and muscle claudia n Encounter Details Date Type Department Care Team (Late st Contact Info) Description 11/06/2023 2:30 PM CDT Virtual Visit [facility] [address] [place] [phone] Christina Roe PA-C [address] [place] [address] Myalgia (Primary Dx); Polyarthralgia; Joint stiffness Social [...] Visit Instructions: Thank you for coming to [facility] Rheumatology for your care. It is my goal to partner withyou to help you reach your optimal state of health. Plan: Schedule follow-up with Christina Roe PA-C in 2 months Medications: increase Prednisone to 1.5 tablets daily-send me a message next week and let me know if there is improvement with that increased dose. Christina Roe PA-C [facility] Rheumatology [facility] Contact information: [facility] Rheumatology Clinic Number: [phone] Please call or send a Entefy message with any questions about your care documented in this encounter Progress Notes * Christina Roe PA-C - 11/06/2023 2:30 PM CDT Gato is a 78 year old who is being evaluated via a billable video visit. How would you like to obtain your AVS? MyChart If the video visit is dropped, the invitation should be resent by: Send to e- mail at: [email or web address] Will anyone else be joining your video visit? No Will you be in [place] for the visit? Yes Please send text to [phone] Video-Visit Details Type of service: Video Visit Video Start Time: 2:20 PM Video End Time:2:28 PM Originating Location (pt. Location): Home Distant Location (provider location): On-site Platform used for Video Visit: [facility] Rheumatology Clinic Visit [facility] MAURILIO Woodard Gato Jimenez [...] is improvement with that increased dose. Christina Roe, [facility] Rheumatology History of Present Illness: Gato Jimenez [...] by mouth at bedtime D3-50 1.25 MG (42339 UT) capsule Take 1,250 mcg by mouth [...] altered joint anatomy. Full joint ROM. Normal analysis engineer strength. No dactylitis, tenosynovitis, enthesopathy. She did [...] Description 03/20/2024 10:30 AM CDT Office Visit [facility] [address] [place] [address] [address] [place] [phone] Christina Roe PA-C [facility] [place] [address] documented as of this encounter Visit Diagnoses Diagnosis Myalgia- Primary Mylagia and myositis, unspecified Polyarthralgia Pain in joint, multiple sites Joint stiffness Stiffness of joint, not elsewhere classified, unspecified site documented in this encounter Care Teams Field Pipe Lines Supervisor Relationship Specialty Start Date End Date Feliciano Uribe MD [address] [address] PCP - General Family Medicine 06/01/23 Christina Roe PA-C [address] [place] [address] Physician Contact Center Director Rheumatology 11/06/23 documented as of this encounter
--- OUTSIDE RECORDS SUMMARY | 2024-01-17 14:41 | XMS_ITS | Encounter Summary ---
Author Organization [place] Address [address] [place] [address] Care Team Providers Care Supervisor Drying Name Role Phone Feliciano Uribe MD Primary Care Provider [phone] Christina Roe PA-C Unavailable [phone] Christina Roe PA-C Unavailable [phone] Reason for Visit * Reason Comments RECHECK Encounter Details Date Type Department Care Team (Late st Contact Info) Description 12/13/2023 12:00 PM CDT Office Visit [address] [place] [address] Christina Roe PA-C [address] [place], [place] [phone] Polymyalgia rheumatica (H24) (Primary Dx); On prednisone [...] Visit Instructions: Thank you for coming to [facility] Rheumatology for your care. It is my goal to partner withu to help you reach your optimal state [...] 1mg every 2 weeks. Christina Roe PA-C [facility] Rheumatology [facility] Contact information: [facility] Rheumatology Clinic Number: [phone] Please call or send a Nervogrid message with any questions about your care documented in this encounter Progress Notes * Christina Roe PA-C - 12/13/2023 12:00 PM CDT Rheumatology Clinic Visit [facility] MAURILIO Woodardgilbert [place] Barbara Date of : [...] by 1mg every 2 weeks. Christina Roe, MAURILIO Rheumatology History of Present [...] Resource Strain: Low Risk (10/10/2022) Received from [facility] Overall Financial Resource Strain (CARDIA) Difficulty of Paying Living Expenses: Not hard at all Food Insecurity: No Food Insecurity (10/10/2022) Received from [facility] Hunger Vital Sign Worried About Running Out of Food in the Last Year: Never true Ran Out of Food in the Last Year: Never true Transportation Needs: No Transportation Needs (10/10/2022) Received from [facility] PRAPARE - Transportation Lack of Transportation (Medical): No Lack of Transportation (Non-Medical): No Physical Activity: Insufficiently Active (10/10/2022) Received from [facility] Exercise Vital Sign Days of Exercise per Week: 2 days Minutes of Exercise per Session: 40 min Stress: No Stress Concern Present (10/10/2022) Received from [facility] [place] of Occupational Health - Occupational Stress Questionnaire Feeling of Stress : Only a little Social Connections: Socially Integrated (10/10/2022) Received from [facility] Social Connection and Isolation Panel [NHANES] Frequency of Communication with Friends and Family: Twice a week Frequency of Social Gatherings with Friends and Family: Twice a week Attends Synagogue Services: More than 4 times per year Active Member of Clubs or Organizations: Yes Attends Club or Organization Meetings: 1 to 4 times per year Marital Status: Interpersonal Safety: Not At Risk (10/10/2022) Received from [facility] Humiliation, Afraid, Rape, and Kick questionnaire Fear of Current or Ex-Partner: No Emotionally Abused: No Physically Abused: No Sexually Abused: No Housing Stability: Low Risk (10/10/2022) Received from [facility] Housing Stability Vital Sign Unable to Pay [...] by mouth at bedtime D3-50 1.25 MG (38629 UT) capsule Take 1,250 mcg by mouth [...] Description 03/20/2024 10:30 AM CDT Office Visit [address] [phone] Christina Roe PA-C [address] [place] [address] documented as of this encounter Visit Diagnoses Diagnosis Polymyalgia rheumatica (H24)- Primary Polymyalgia rheumatica On prednisone therapy documented in this encounter Care Teams Supervisor Drying Relationship Specialty Start Date End Date Feliciano Uribe MD [address] [address] PCP - General Family Medicine 06/01/23 Christina Roe PA-C [address] [place] [address] Physician Nursing Manager Rheumatology 11/06/23 Christina Roe PA-C [address] [place] [address] Assigned Rheumatology Provider 11/09/23 documented as of this encounter
--- OUTSIDE RECORDS SUMMARY | 2024-01-17 14:42 | XMS_ITS | Clinical Summary ---
Author Organization [facility] Address [address] [place] [address] Care Team Providers Care Demand Equipment Repairer Name Role Phone Feliciano Uribe MD Primary Care Provider [phone] Source Comments You are receiving this document as you are listed as the primary care provider,follow-up provider, or the patient has been referred to you for consultation.This is in compliance with the Medicare and[facility] Hospital[facility]or EHR Incentive Program,which states Providers who transition their patient to another setting of careor provider of care or refers their patient to another provider of care shouldprovide summary care record for each transition of care or referral. ipDatatel Allergies No known active allergies Medications Medication [...] a day. 03/27/2019 Active Cholecalciferol (VITAMIN D3) 46358 units TABS 03/27/2019 Active levothyroxine (SYNTHROID) 137 [...] every week. Take 30 minutes before first vihs-[id number]-[id number] n. Avoid lying down for 30 minutes. [...] 05/02/20 12, 03/10/2005, 01/30/1980 COVID-19 Vaccine ( - season) 2023 11/12/2020, 10/15/2020 Influenza (Season Ended) [...] age to complete this topic Care Teams Demand Equipment Repairer Relationship Specialty Start Date End Date Feliciano Uribe MD [address] [place] [address] PCP - General 02/17/19
--- OUTSIDE RECORDS SUMMARY | 2024-01-17 14:42 | XMS_ITS | Encounter Summary ---
Author Organization [place] Address [address] [place] [address] Care Team Providers Care Internal Control Manager Name Role Phone Feliciano Uribe MD Primary Care Provider Christina Roe PA-C Unavailable Christina Roe PA-C Unavailable Encounter Details Date Type Department Care Team (Late Contact Info) Description 04/24/2013 Abstract [facility] [place] [facility] [address] [place] [phone] Iris Hernandez [facility] [address] [facility] [address] [place] [address] Social History Tobacco Use Types Packs/Day Years Used Date Smoking Tobacco: Never Assessed Sex and Gender Information Value Date Recorded Sex Assigned at Not on file Gender Identity Not on file Sexual Orientation Not on file documented as of this encounter Plan of Treatment Upcoming Encounters Date Type Department Care Team (Late st Contact Info) Description 03/20/2024 10:30 AM CDT Office Visit [facility] [address] [facility] [facility] [address] [place] [phone] Christina Roe PA-C [address] [place], [place] [phone] documented as of this encounter Visit Diagnoses Not on filedocumented in this encounter Care Teams Internal Control Manager Relationship Specialty Start Date End Date Feliciano Uribe MD [facility] [address] [place] [address] PCP - General Family Medicine 06/01/23 Christina Roe PA-C [address] [place] [address] Physician Batcher Operator Rheumatology 11/06/23 Christina Roe PA-C [address] [place] [address] Assigned Rheumatology Provider 11/09/23 documented as of this encounter
--- OUTSIDE RECORDS SUMMARY | 2024-01-17 14:42 | XMS_ITS | Referral Summary ---
Author Organization [facility] Address [address] [place] [address] Care Team Providers Care Aerial Sprayer Name Role Phone Unavailable Primary Care Provider Unavailabl e Source Comments Patient records contain information from all sites at [facility]. For routine questions regarding patient records, call [phone] during business hours, M-F 8:00 AM - 5:00 PM Central Time. Record requests for emergency care only can be directed to [phone] at any time.[facility] Allergies No known active allergies Medications Medication [...] How often do you attend chur or congregation services? More than 4 times per year 10/10/2022 Do you belong to any clubs o r organizations such as anglican groups, unions, fraternal or athletic groups, or [...] and heating? Not hard at all 10/10/2022 [facility] of Occupat ional Health - Occupational Stress [...] Sex Assigned at Female 10/10/2022 4:07 PM PHYSICIAN CODING SPECIALIST Gender Identity Female 07/16/2018 12:55 PM PHYSICIAN CODING SPECIALIST Sexual Orientation Straight 07/16/2018 12 :55 PM PHYSICIAN CODING SPECIALIST Last Filed Vital Signs Vital Sign Reading Time Taken Comments Blood Pressure 163/73 10/31/2022 12:17 PM PHYSICIAN CODING SPECIALIST Pulse 75 10/31/2022 12:17 PM PHYSICIAN CODING SPECIALIST Temperature 36.5 ??C (97.7 ??F) 10/31/2022 1 2:27 PM PHYSICIAN CODING SPECIALIST Respiratory Rate 20 10/31/2022 12:1 7 PM PHYSICIAN CODING SPECIALIST Oxygen Saturation 96% 10/31/2022 12: 17 PM PHYSICIAN CODING SPECIALIST Inhaled Oxygen Concentration - - Weight 55.2 kg (121 lb 11.1 oz) 11/01/2022 9:18 AM PHYSICIAN CODING SPECIALIST Height 152 cm (4' 11.84) 11/01/2022 9:18 AM PHYSICIAN CODING SPECIALIST Body Mass Index 23.89 11/01/2022 9:18 AM PHYSICIAN CODING SPECIALIST Plan of Treatment Not on file Medical Devices Implanted Type Area Bridge Operator Device Identifier Shelf Expiration Date Model / Serial / Lot Knee Implant- 022 Implanted:01/2022 (Quantity not on file) Knee Implant Right: Knee Ocular Lens Ocular Lens Bilatera l: Eye Procedures Procedure Name Priority Date/Time Associated Diagnosis Comments COMPREHENSIVE METABOLIC PANEL, S/P Routine 10/17/2022 10:01 AM PHYSICIAN CODING SPECIALIST Bypass Gastric Suellen En Y Status Post EXTI THYROID-STIMULATING HORMONE-SENSITIVE (S-TSH), S Routine 07/26/2022 8:02 AM PHYSICIAN CODING SPECIALIST from Last 3 Months or Most Recently Relevant to Health Maintenance Results * Comprehensive Metabolic Panel (10/17/2022 10:01 AM PHYSICIAN CODING SPECIALIST) Potassium, S 4.5 3.6 - 5.2 mmol/L 10/17/2022 11:02 AM PHYSICIAN CODING SPECIALIST DTL Sodium, S 141 135 - 145 mmol/L 10/17/2022 11:02 AM PHYSICIAN CODING SPECIALIST DTL Chloride, S 106 98 - 107 mmol/L 10/17/2022 11:02 AM PHYSICIAN CODING SPECIALIST DTL Bicarbonate, S 26 22 - 29 mmol/L 10/17/2022 11:02 AM PHYSICIAN CODING SPECIALIST DTL Anion Gap 9 7 - 15 10/17/2022 11:02 AM PHYSICIAN CODING SPECIALIST DTL BUN (Blood Urea Nitrogen), S 12 6 - 21 mg/dL 10/17/2022 11:02 AM PHYSICIAN CODING SPECIALIST DTL Creatinine 0.59 0.59 - 1.04 mg/dL 10/17/2022 11:02 AM PHYSICIAN CODING SPECIALIST DTL Estimated GFR (eGFR) >90 >=60 mL/min/BS A 10/17/2022 11:02 AM PHYSICIAN CODING SPECIALIST DTL Comment: Estimated GFR calculated using the 2020 CKD_EPI creatinine equation. Calcium, Total, S 9.7 8.8 - 10.2 mg/dL 10/17/2022 11:02 AM PHYSICIAN CODING SPECIALIST DTL Glucose, S 100 70 - 140 mg/dL 10/17/2022 11:02 AM PHYSICIAN CODING SPECIALIST DTL Protein, Total, S 6.8 6.3 - 7.9 g/dL 10/17/2022 11:02 AM PHYSICIAN CODING SPECIALIST DTL Albumin, S 4.5 3.5 - 5.0 g/dL 10/17/2022 11:02 AM PHYSICIAN CODING SPECIALIST DTL Aspartate Aminotransferase (AST), S 23 8 - 43 U/L 10/17/2022 11:02 AM PHYSICIAN CODING SPECIALIST DTL Alkaline Phosphatase, S 83 35 - 104 U/L 10/17/2022 11:02 AM PHYSICIAN CODING SPECIALIST DTL Alanine Aminotransferase (ALT), S 23 7 - 45 U/L 10/17/2022 11:02 AM PHYSICIAN CODING SPECIALIST DTL Bilirubin, Total, S 0.3 <=1.2 mg/dL 10/17/2022 11:02 AM PHYSICIAN CODING SPECIALIST DTL Blood (Blood, Venous) 10/17/2022 10:01 AM PHYSICIAN CODING SPECIALIST 10/17/2022 10:38 AM PHYSICIAN CODING SPECIALIST Merlyn Cobos M.D. LAB BLO OD ADD-ON [facility] [address] [place] [address], [facility] [address] [place] [address] from Last 3 Months or Most Recently Relevant to Health Maintenance
--- OUTSIDE RECORDS SUMMARY | 2024-01-17 14:42 | XMS_ITS | Encounter Summary ---
Author Organization [place] Address [address] [place] [address] Care Team Providers Care Signal Wirer Name Role Phone Feliciano Uribe MD Primary [...] Description 03/20/2024 10:30 AM CDT Office Visit [address] [phone] Christina Roe PA-C [address] [place] [address] documented as of this encounter Visit Diagnoses Not on filedocumented in this encounter Care Teams Signal Wirer Relationship Specialty Start Date End Date Feliciano Uribe MD [facility] [address] [place] [address] PCP - General Family Medicine 06/01/23 documented as of this encounter
--- OUTSIDE RECORDS SUMMARY | 2024-01-17 14:42 | XMS_ITS | Encounter Summary ---
Author Organization [place] Address [address] [place] [address] Care Team Providers Care Tubular Stock Glass Bulb Machine Former Name Role Phone Feliciano Uribe MD Primary Care Provider [phone] Encounter Details Date Type Department Care Team (Late st Contact Info) Description 10/18/2023 8:20 AM PARTY PLAN SALES CONSULTANT Lab [facility] [address] [place] [address] [address] [place] [phone] Polyarthralgia; Myalgia; Joint stiffness Social History Tobacco [...] Description 03/20/2024 10:30 AM CDT Office Visit [address] [place] [phone] Christina Roe PA-C [address] [place] [address] documented as of this encounter Procedures Procedure Name Priority Date/Time Associated Diagnosis Comments SSB LA LEELEE ANTIBODY IGG Routine 10/18/2023 8:35 AM PARTY PLAN SALES CONSULTANT Polyarthralgia Myalgia Joint stiffness SSA RO LEELEE ANTIBODY IGG Routine 10/18/2023 8:35 AM PARTY PLAN SALES CONSULTANT Polyarthralgia Myalgia Joint stiffness CYCLIC CITRULLINATED PEPTIDE ANTIBODY IGG Routine 10/18/2023 8:35 AM PARTY PLAN SALES CONSULTANT Polyarthralgia Myalgia Joint stiffness RHEUMATOID FACTOR Routine 10/18/2023 8:3 5 AM PARTY PLAN SALES CONSULTANT Polyarthralgia Myalgia Joint stiffness ERYTHROCYTE SEDIMENTATION RATE AUTO Routine 10/18/2023 8:35 AM PARTY PLAN SALES CONSULTANT Polyarthralgia Myalgia Joint stiffness CRP INFLAMMATION Routine 10/18/2023 8:35 AM PARTY PLAN SALES CONSULTANT Polyarthralgia Myalgia Joint stiffness CK TOTAL Routine 10/18/2023 8:35 AM PARTY PLAN SALES CONSULTANT Polyarthralgia Myalgia Joint stiffness ALDOLASE Routine 10/18/2023 8:35 AM PARTY PLAN SALES CONSULTANT Polyarthralgia Myalgia Joint stiffness documented in this encounter Results * Aldolase (10/18/2023 8:35 AM PARTY PLAN SALES CONSULTANT) Aldolase 6.3 1.2 - 7.6 U/L 10/19/2023 10:04 PM PARTY PLAN SALES CONSULTANT [employer] Comment: REFERENCE INTERVAL: Aldolase Access complete set of age- and/or gender-specific reference intervals for this test in the [facility] Test Directory ([employer]). Performed By: [facility] [address] [place] [id number] Editor Continuity And Script: Royer Samuels MD, PhD CLIA Number: [id number] Blood BLOOD SPECIMEN / Unknown Venipuncture / Unknown 10/18/2023 8:35 AM PARTY PLAN SALES CONSULTANT 10/18/2023 8:35 AM PARTY PLAN SALES CONSULTANT Christina Roe PA-C LAB - BLOOD OR DERABLES [email or web address] [address] [place] [address] [phone] * CK total (10/18/2023 8:35 AM PARTY PLAN SALES CONSULTANT) CK 53 26 - 192 U/L 10/18/2023 12:25 PM PARTY PLAN SALES CONSULTANT [facility] Blood BLOOD SPECIMEN / Unknown Venipuncture / Unknown 10/18/2023 8:35 AM PARTY PLAN SALES CONSULTANT 10/18/2023 8:35 AM PARTY PLAN SALES CONSULTANT Christina Roe PA-C LAB - BLOOD OR DERABLES [facility] [employer] [place] Core Lab [address] [facility] J Building, [address] [address], [facility] [phone] * SSB La LEELEE Antibody IgG (10/18/2023 8:35 AM PARTY PLAN SALES CONSULTANT) Pathologist [facility] SSB [place] IgG Instrument Value <0.6 <7.0 U/mL 10/19/2023 5:38 PM PARTY PLAN SALES CONSULTANT SPECIALTY CORE/PROT/END O SSB (La) Antibody IgG Negative Negative 10/19/2023 5:38 PM PARTY PLAN SALES CONSULTANT SPECIALTY CORE/PROT/END O Blood BLOOD SPECIMEN / Unknown Venipuncture / Unknown 10/18/2023 8:35 AM PARTY PLAN SALES CONSULTANT 10/18/2023 8:35 AM PARTY PLAN SALES CONSULTANT Christina Roe PA-C LAB - BLOOD OR DERABLES SPECIALTY CORE/PROT/ENDO Specialty Core/Prot/Endo [address] [facility] [address] Building, Room [address] [address], [facility] [phone] * SSA Ro LEELEE Antibody IgG (10/18/2023 8:35 AM PARTY PLAN SALES CONSULTANT) Pathologist [facility] SSA [place] IgG Instrument Value <0.5 <7.0 U/mL 10/19/2023 5:38 PM PARTY PLAN SALES CONSULTANT SPECIALTY CORE/PROT/END O SSA (Ro) Antibody IgG Negative Negative 10/19/2023 5:38 PM PARTY PLAN SALES CONSULTANT SPECIALTY CORE/PROT/END O Blood BLOOD SPECIMEN / Unknown Venipuncture / Unknown 10/18/2023 8:35 AM PARTY PLAN SALES CONSULTANT 10/18/2023 8:35 AM PARTY PLAN SALES CONSULTANT Christina Roe PA-C LAB - BLOOD OR DERABLES SPECIALTY CORE/PROT/ENDO Specialty Core/Prot/Endo [address] [facility] Unit Building, Room [address] [address] [phone] * Rheumatoid factor (10/18/2023 8:35 AM PARTY PLAN SALES CONSULTANT) Rheumatoid Factor <10 <14 IU/mL 10/18/2023 12:25 PM PARTY PLAN SALES CONSULTANT [facility] Blood BLOOD SPECIMEN / Unknown Venipuncture / Unknown 10/18/2023 8:35 AM PARTY PLAN SALES CONSULTANT 10/18/2023 8:35 AM PARTY PLAN SALES CONSULTANT Christina Roe PA-C LAB - BLOOD OR DERABLES [facility] [employer] [place] Core Lab [address] [facility], Room [address] [phone] [phone] * Erythrocyte sedimentation rate auto (10/18/2023 8:35 AM PARTY PLAN SALES CONSULTANT) Erythrocyte Sedimentation Rate 14 0 - 30 mm/hr 10/18/2023 8:49 AM PARTY PLAN SALES CONSULTANT [facility] LABORATORY Blood BLOOD SPECIMEN / Unknown Venipuncture / Unknown 10/18/2023 8:35 AM PARTY PLAN SALES CONSULTANT 10/18/2023 8:35 AM PARTY PLAN SALES CONSULTANT Christina Roe PA-C LAB - BLOOD OR DERABLES [facility] [address] * Cyclic Citrullinated Peptide Antibody IgG (10/18/2023 8:35 AM PARTY PLAN SALES CONSULTANT) Cyclic Citrullinated Peptide Antibody IgG 1.0 <7.0 U/mL 10/19/2023 5:39 PM PARTY PLAN SALES CONSULTANT [facility] SPECIALTY CORE/PROT/END O Comment:Negative Blood BLOOD SPECIMEN / Unknown Venipuncture / Unknown 10/18/2023 8:35 AM PARTY PLAN SALES CONSULTANT 10/18/2023 8:35 AM PARTY PLAN SALES CONSULTANT Christina Roe PA-C LAB - BLOOD OR DERABLES [facility] SPECIALTY CORE/PROT/ENDO Specialty Core/Prot/Endo 500 [facility], Room [phone] [place] [address] * CRP inflammation (10/18/2023 8:35 AM PARTY PLAN SALES CONSULTANT) CRP Inflammation <3.00 <5.00 mg/L 10/18/19 12:25 PM PARTY PLAN SALES CONSULTANT [facility] Blood BLOOD SPECIMEN / Unknown Venipuncture / Unknown 10/18/2023 8:35 AM PARTY PLAN SALES CONSULTANT 10/18/2023 8:35 AM PARTY PLAN SALES CONSULTANT Christina Roe PA-C LAB - BLOOD OR DERABLES [facility] [employer] [place] Core Lab [address] [facility], [address] [address] [phone] documented in this encounter Visit Diagnoses Diagnosis Polyarthralgia Pain in joint, multiple sites Myalgia Mylagia and myositis, unspecified Joint stiffness Stiffness of joint, not elsewhere classified, unspecified site documented in this encounter Care Teams Tubular Stock Glass Bulb Machine Former Relationship Specialty Start Date End Date Feliciano Uribe MD [facility] [place] [address] PCP - General Family Medicine 06/01/23 documented as of this encounter
--- OUTSIDE RECORDS SUMMARY | 2024-01-17 14:42 | XMS_ITS ---
Author Organization [facility] Address [address] [place] [address] Care Team Providers Care Pet Groomer Name Role Phone Unavailable Unavailable Unavailable Surgery Details Not on file Complications Check Surgery Details section. Procedure Estimated Blood Loss Check Surgery Details section. Procedure Findings Check Surgery Details section. Procedure Specimens Taken Check Surgery Details section.
--- OUTSIDE RECORDS SUMMARY | 2024-01-17 14:42 | XMS_ITS | Encounter Summary ---
Author Organization [facility] Address [address] [place] [address]. [place] [address] Care Team Providers Care Motorcycle Mechanic Apprentice Name Role Phone Feliciano Uribe MD Primary Care Provider [phone] Reason for Referral * Diagnostic Imaging XR (Routine) - Pending Review Specialty Diagnoses / Procedures Referred By Amena prasad Referred To Contact Radiology. Diagnoses Polyarthralgia Myalgia Joint stiffness Procedures XR Hand Bilateral G/E 3 Views Christina Roe PA-C [address] [place] [address] Referral ID Status Reason Start Date Expiration Date V isits Requested Visits Authorized [id number] Pending Review 10/18/2023 10/17/2024 1 1 MOUNTER Reason for Visit * Reason Comments New Patient * Consultation (Routine) - Pending Review Specialty Diagnoses / Procedures Referred By Amena prasad Referred To Contact Rheumatology Diagnoses Cervical pain Jah Lobo, [facility] [address] [place] [address] Referral ID Status Reason Start Date Expiration Date V isits Requested Visits Authorized [id number] Pending Review 05/31/2023 05/30/2024 1 1 Encounter Details Date Type Department Care Team (Late st Contact Info) Description 10/18/2023 8:00 AM CARD MOUNTER Office Visit [address] [place] [address] Christina Roe PA-C [facility] [place] [address] Polyarthralgia (Primary Dx); Myalgia; Joint stiffness Social [...] Comments Blood Pressure 206/96 10/18/2023 7:57 AM CARD MOUNTER Pulse 77 10/18/2023 7:55 AM CARD MOUNTER Temperature - - Respiratory Rate - - Oxygen Saturation 98% 10/18/2023 7:55 AM CARD MOUNTER Inhaled Oxygen Concentration - - Weight 66.1 kg (145 lb 11.2 oz) 10/18/2023 7:55 AM CARD MOUNTER Height - - Body Mass Index - - documented in this encounter Patient Instructions * Patient Instructions* Christina Roe PA-C - 10/18/2023 8:00 AM CARD MOUNTER After Visit Instructions: Thank you for coming to [facility] Rheumatology for your care. It is my goal to partner withyou to help you reach your optimal state of health. Plan: Schedule follow-up with Christina Roe PA-C as needed Imaging: xray hands Labs: CCP antibody, Rheumatoid factor, CRP, Sed Rate, SSA, SSB, Aldolase and CK Christina Roe PA-C [facility] Rheumatology [facility] Contact information: [facility] Clinic Number: [phone] Please call or send a [employer] message with any questions about your care MOUNTER documented in this encounter Progress Notes * Christina Roe PA-C - 10/18/2023 8:00 AM CST Rheumatology Clinic Visit 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 Full joint ROM. Normal nut grader strength. No dactylitis, tenosynovitis, enthesopathy. She did [...] compartment. No effusion. Laboratory: No recent labs MOUNTER documented in this encounter Plan of Treatment Upcoming Encounters Date Type Department Care Team (Late st Contact Info) Description 03/20/2024 10:30 AM CDT Office Visit [address] [phone] Christina Roe PA-C [address] [place] [address] documented as of this encounter Results * XR Hand Bilateral G/E 3 Views (10/18/2023 8:44 AM CARD MOUNTER) Anatomical Region Laterality Modality Hand, Wrist Bilateral Digital Radiogra phy 10/18/2023 8:44 AM CARD MOUNTER Impressions 10/18/2023 12:27 PM CARD MOUNTER IMPRESSION: No fractures. 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 Mild chondrocalcinosis in the TFCCs bilaterally. Narrative 10/18/2023 12:27 PM CARD MOUNTER EXAM: XR HAND BILATERAL G/E 3 VIEWS LOCATION: [facility] DATE: 10/18/2023 INDICATION: Polyarthralgia, myalgia, joint stiffness. COMPARISON: None. Procedure Note Brenden Odell MD - 10/18/2023 EXAM: XR HAND BILATERAL G/E 3 VIEWS LOCATION: [facility] DATE: 10/18/2023 INDICATION: Polyarthralgia, myalgia, joint stiffness. COMPARISON: None. IMPRESSION: No fractures. Moderate degenerative changes at the left andright STT and 1st CMC joints. Mild chondrocalcinosis in the TFCCsbilaterally. Christina Roe PA-C IMG DIAGNOSTIC IMAGING ORDERABLES * Aldolase (10/18/2023 8:35 AM CARD MOUNTER) Aldolase 6.3 1.2 - 7.6 U/L 10/19/2023 10:04 PM CARD MOUNTER [employer] Comment: REFERENCE INTERVAL: Aldolase Access complete set of age- and/or gender-specific reference intervals for this test in the [employer] Laboratory Test Directory ([employer]). Performed By: [facility] [address] [place] [address] Seismic Survey Assistant: Royer Samuels MD, PhD CLIA Number: [id number] Blood BLOOD SPECIMEN / Unknown Venipuncture / Unknown 10/18/2023 8:35 AM CARD MOUNTER 10/18/2023 8:35 AM CARD MOUNTER Christina Roe PA-C LAB - BLOOD OR DERABLES [facility] [employer] [address] [place] [address], [facility] [phone] * CK total (10/18/2023 8:35 AM CARD MOUNTER) CK 53 26 - 192 U/L 10/18/2023 12:25 PM CARD MOUNTER [facility] Blood BLOOD SPECIMEN / Unknown Venipuncture / Unknown 10/18/2023 8:35 AM CARD MOUNTER 10/18/2023 8:35 AM CARD MOUNTER Christina Roe PA-C LAB - BLOOD OR DERABLES [facility] [place] [facility] [address] [facility] [address], [address] [address], [facility] [phone] * SSB La LEELEE Antibody IgG (10/18/2023 8:35 AM CARD MOUNTER) SSB [place] IgG Instrument Value <0.6 <7.0 U/mL 10/19/2023 5:38 PM CARD MOUNTER [facility] SPECIAL[facility] CORE/PROT/END O SSB (La) Antibody IgG Negative Negative 10/19/2023 5:38 PM CARD MOUNTER SPECIALTY CORE/PROT/END O Blood BLOOD SPECIMEN / Unknown Venipuncture / Unknown 10/18/2023 8:35 AM CARD MOUNTER 10/18/2023 8:35 AM CARD MOUNTER Christina Roe PA-C LAB - BLOOD OR DERABLES [facility] SPECIALTY CORE/PROT/ENDO Specialty Core/Prot/Endo [address] [facility], [address] [address], [facility] [phone] * SSA Ro LEELEE Antibody IgG (10/18/2023 8:35 AM CARD MOUNTER) SSA [place] IgG Instrument Value <0.5 <7.0 U/mL 10/19/2023 5:38 PM CARD MOUNTER SPECIALTY CORE/PROT/END O SSA (Ro) Antibody IgG Negative Negative 10/19/2023 5:38 PM CARD MOUNTER SPECIALTY CORE/PROT/END O Blood BLOOD SPECIMEN / Unknown Venipuncture / Unknown 10/18/2023 8:35 AM CARD MOUNTER 10/18/2023 8:35 AM CARD MOUNTER Christina WRIGHTC LAB - BLOOD OR DERABLES SPECIALTY CORE/PROT/ENDO Specialty Core/Prot/Endo [address] [facility] [address] Building, Room [address] [phone] * Rheumatoid factor (10/18/2023 8:35 AM CARD MOUNTER) Rheumatoid Factor <10 <14 IU/mL 10/18/2023 12:25 PM CARD MOUNTER [facility] Blood BLOOD SPECIMEN / Unknown Venipuncture / Unknown 10/18/2023 8:35 AM CARD MOUNTER 10/18/2023 8:35 AM CARD MOUNTER Christina Roe PA-C LAB - BLOOD OR DERABLES [facility] [place] [facility] [address] [facility], Room [address] [address] [phone] * Erythrocyte sedimentation rate auto (10/18/2023 8:35 AM CARD MOUNTER) Erythrocyte Sedimentation Rate 14 0 - 30 mm/hr 10/18/2023 8:49 AM CARD MOUNTER [facility] Blood BLOOD SPECIMEN / Unknown Venipuncture / Unknown 10/18/2023 8:35 AM CARD MOUNTER 10/18/2023 8:35 AM CARD MOUNTER Christina Roe PA-C LAB - BLOOD OR DERABLES [facility] [address] * Cyclic Citrullinated Peptide Antibody IgG (10/18/2023 8:35 AM CARD MOUNTER) Cyclic Citrullinated Peptide Antibody IgG 1.0 <7.0 U/mL 10/19/2023 5:39 PM CARD MOUNTER SPECIALTY CORE/PROT/END O Comment:Negative Blood BLOOD SPECIMEN / Unknown Venipuncture / Unknown 10/18/2023 8:35 AM CARD MOUNTER 10/18/2023 8:35 AM CARD MOUNTER Christina Roe PA-C LAB - BLOOD OR DERABLES SPECIALTY CORE/PROT/ENDO Specialty Core/Prot/Endo [address] [facility], [address] [address] [phone] * CRP inflammation (10/18/2023 8:35 AM CARD MOUNTER) CRP Inflammation <3.00 <5.00 mg/L 10/18/19 24 12:25 PM CARD MOUNTER [facility] Blood BLOOD SPECIMEN / Unknown Venipuncture / Unknown 10/18/2023 8:35 AM CARD MOUNTER 10/18/2023 8:35 AM CARD MOUNTER Christina Roe PA-C LAB - BLOOD OR DERABLES [facility] [place] [facility] [address] [facility], [address] [address], [facility] [phone] documented in this encounter Visit Diagnoses Diagnosis Polyarthralgia- Primary Pain in joint, multiple sites Myalgia Mylagia and myositis, unspecified Joint stiffness Stiffness of joint, not elsewhere classified, unspecified site Polyarthralgia Pain in joint, multiple sites Myalgia Mylagia and myositis, unspecified Joint stiffness Stiffness of joint, not elsewhere classified, unspecified site documented in this encounter Care Teams Motorcycle Mechanic Apprentice Relationship Specialty Start Date End Date Feliciano Uribe MD [address] [address] PCP - General Family Medicine 06/01/23 documented as of this encounter
--- OUTSIDE RECORDS SUMMARY | 2024-01-17 14:42 | XMS_ITS | Clinical Summary ---
Author Organization [facility] Address [address] [place] [address] Care Team Providers Care Gambling Broker Name Role Phone Unavailable Primary Care Provider Unavailabl e Source Comments Patient records contain information from all sites at [facility]. For routine questions regarding patient records, call [phone] during business hours, M-F 8:00 AM - 5:00 PM Central Time. Record requests for emergency care only can be directed to [phone] at any time.[facility] Allergies No known active allergies Medications Medication [...] Relation Name Status Comments Father rosa isela cilne Mother Winifred Cline Social History Tobacco Use [...] often do you attend chur ch or sikhism services? More than 4 times per year 10/10/2022 Do you belong to any clubs o r organizations such as amish groups, unions, fraternal or athletic groups, or [...] and heating? Not hard at all 10/10/2022 [facility] [place] of Occupat ional Health - Occupational Stress [...] place to sleep or slept in a group home (including now)? No 10/10/2022 Nutrition Answer [...] Sex Assigned at Female 10/10/2022 4:07 PM MARKET MANAGER Gender Identity Female 07/16/2018 12:55 PM MARKET MANAGER Sexual Orientation Straight 07/16/2018 12 :55 PM MARKET MANAGER Last Filed Vital Signs Vital Sign Reading Time Taken Comments Blood Pressure 163/73 10/31/2022 12:17 PM MARKET MANAGER Pulse 75 10/31/2022 12:17 PM MARKET MANAGER Temperature 36.5 ??C (97.7 ??F) 10/31/2022 1 2:27 PM MARKET MANAGER Respiratory Rate 20 10/31/2022 12:1 7 PM MARKET MANAGER Oxygen Saturation 96% 10/31/2022 12: 17 PM MARKET MANAGER Inhaled Oxygen Concentration - - Weight 55.2 kg (121 lb 11.1 oz) 11/01/2022 9:18 AM MARKET MANAGER Height 152 cm (4' 11.84) 11/01/2022 9:18 AM MARKET MANAGER Body Mass Index 23.89 11/01/2022 9:18 AM MARKET MANAGER Plan of Treatment Health Maintenance Due Date [...] FIT Discontinued Medical Devices Implanted Type Area Vice President Of Finance Device Identifier Shelf Expiration Date Model / Serial / Lot Knee Implant- 022 Implanted:01/2022 (Quantity not on file) Knee Implant Right: Knee Ocular Lens Ocular Lens Bilatera l: Eye Procedures Procedure Name Priority Date/Time Associated Diagnosis Comments COMPREHENSIVE METABOLIC PANEL, S/P Routine 10/17/2022 10:01 AM MARKET MANAGER Bypass Gastric Suellen En Y Status Post EXTI THYROID-STIMULATING HORMONE-SENSITIVE (S-TSH), S Routine 07/26/2022 8:02 AM MARKET MANAGER from Last 3 Months or Most Recently Relevant to Health Maintenance Results * Comprehensive Metabolic Panel (10/17/2022 10:01 AM MARKET MANAGER) Potassium, S 4.5 3.6 - 5.2 mmol/L 10/17/2022 11:02 AM MARKET MANAGER DTL Sodium, S 141 135 - 145 mmol/L 10/17/2022 11:02 AM MARKET MANAGER DTL Chloride, S 106 98 - 107 mmol/L 10/17/2022 11:02 AM MARKET MANAGER DTL Bicarbonate, S 26 22 - 29 mmol/L 10/17/2022 11:02 AM MARKET MANAGER DTL Anion Gap 9 7 - 15 10/17/2022 11:02 AM MARKET MANAGER DTL BUN (Blood Urea Nitrogen), S 12 6 - 21 mg/dL 10/17/2022 11:02 AM MARKET MANAGER DTL Creatinine 0.59 0.59 - 1.04 mg/dL 10/17/2022 11:02 AM MARKET MANAGER DTL Estimated GFR (eGFR) >90 >=60 mL/min/BS A 10/17/2022 11:02 AM MARKET MANAGER DTL Comment: Estimated GFR calculated using the 2020 CKD_EPI creatinine equation. Calcium, Total, S 9.7 8.8 - 10.2 mg/dL 10/17/2022 11:02 AM MARKET MANAGER DTL Glucose, S 100 70 - 140 mg/dL 10/17/2022 11:02 AM MARKET MANAGER DTL Protein, Total, S 6.8 6.3 - 7.9 g/dL 10/17/2022 11:02 AM MARKET MANAGER DTL Albumin, S 4.5 3.5 - 5.0 g/dL 10/17/2022 11:02 AM MARKET MANAGER DTL Aspartate Aminotransferase (AST), S 23 8 - 43 U/L 10/17/2022 11:02 AM MARKET MANAGER DTL Alkaline Phosphatase, S 83 35 - 104 U/L 10/17/2022 11:02 AM MARKET MANAGER DTL Alanine Aminotransferase (ALT), S 23 7 - 45 U/L 10/17/2022 11:02 AM MARKET MANAGER DTL Bilirubin, Total, S 0.3 <=1.2 mg/dL 10/17/2022 11:02 AM MARKET MANAGER DTL Blood (Blood, Venous) 10/17/2022 10:01 AM MARKET MANAGER 10/17/2022 10:38 AM MARKET MANAGER Merlyn Cobos M.D. LAB BLO OD ADD-ON [facility] [address] [place] [address], [facility] [address] [place] [address] from Last 3 Months or Most Recently Relevant to Health Maintenance
--- OUTSIDE RECORDS SUMMARY | 2024-01-17 14:42 | XMS_ITS | Clinical Summary ---
Author Organization [facility] Address [place], [place] [address] Care Team Providers Care Tube Making Machine Operator Name Role Phone Feliciano Uribe MD Primary Care Provider [phone] Allergies No known active allergies Medications Medication [...] Description 12/11/2023 8:30 AM CDT Office Visit [facility] [address] [place] [address] Ethan Abrams MD Follow Up (Blood pressure medications- high bp) 12/11/2023 Travel 11/01/[address] Berry [address] [place] [address] Ethan Abrams MD Results (monitor) from Last [...] 36.7 ??C (98 ??F) 07/27/2022 4:00 PM CUSTOMER SERVICE LEADER Respiratory Rate 16 07/27/2022 4:00 PM CUSTOMER SERVICE LEADER Oxygen Saturation 98% 12/11/2023 8:25 AM CDT Inhaled Oxygen Concentration - - Weight 65.5 kg (144 lb 4.8 oz) 12/11/2023 8:25 A M CDT Height 177.8 cm (5' 10) 07/22/2022 1:00 PM CUSTOMER SERVICE LEADER Body Mass Index 20.7 07/22/2022 1:00 PM CUSTOMER SERVICE LEADER Plan of Treatment Health Maintenance Due Date [...] PCV) 2011 COVID-19 vaccine series (3 - 2022- season) 2023 11/12/2020, 10/15/2020 Influenza for age [...] Code Status Discussion: Reviewed Preferences Care Teams Tube Making Machine Operator Relationship Specialty Start Date End Date Feliciano Uribe MD [address] [place] [address] PCP - General Family Practice 09/01/22
--- OUTSIDE RECORDS SUMMARY | 2024-01-17 14:42 | XMS_ITS | Encounter Summary ---
Author Organization [place] Address [address] [place] [address] Care Team Providers Care Gauger Chief Delivery Name Role Phone Feliciano Uribe MD Primary Care Provider [phone] Reason for Referral * Diagnostic Imaging XR (Routine) - Pending Review Specialty Diagnoses / Procedures Referred By Amena prasad Referred To Contact Radiology. Diagnoses Polyarthralgia Myalgia Joint stiffness Procedures XR Hand Bilateral G/E 3 Views Christina Roe PA-C [address] [place] [address] Referral ID Status Reason Start Date Expiration Date V isits Requested Visits Authorized [id number] Pending Review 10/18/2023 10/17/2024 1 1 DRIVER Reason for Visit * Diagnostic Imaging XR (Routine) - Pending Review Specialty Diagnoses / Procedures Referred By Amena prasad Referred To Contact Radiology. Diagnoses Polyarthralgia Myalgia Joint stiffness Procedures XR Hand Bilateral G/E 3 Views Christina Roe PA-C [address] [place] [address] Referral ID Status Reason Start Date Expiration Date V isits Requested Visits Authorized [id number] Pending Review 10/18/2023 10/17/2024 1 1 Encounter Details Date Type Department Care Team (Latest Contact Info) Description 10/18/2023 8:38 AM TEST DRIVER - 10/18/2023 11:59 PM TEST DRIVER Hospital Encounter [facility] [address] [facility] [address] [place] [address] Christina Roe PA-C [address] [facility] [place] [address] Polyarthralgia; Myalgia; Joint stiffness Discharge Disposition: Home [...] by mouth at bedtime D3-50 1.25 MG (53531 UT) capsule Take 1,250 mcg by mouth [...] Description 03/20/2024 10:30 AM CDT Office Visit [facility] [address] [facility] [address] [place] [address] Christina oRe PA-C [address] [place] [address] documented as of this encounter Procedures Procedure Name Priority Date/Time Associated Diagnosis Comments XR HAND BILATERAL G/E 3 VIEWS Routine 10/18/2023 8:44 AM TEST DRIVER Polyarthralgia Myalgia Joint stiffness documented in this encounter Results * XR Hand Bilateral G/E 3 Views (10/18/2023 8:44 AM TEST DRIVER) Anatomical Region Laterality Modality Hand, Wrist Bilateral Digital Radiogra phy 10/18/2023 8:44 AM TEST DRIVER Impressions 10/18/2023 12:27 PM TEST DRIVER IMPRESSION: No fractures. 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 Mild chondrocalcinosis in the TFCCs bilaterally. Narrative 10/18/2023 12:27 PM TEST DRIVER EXAM: XR HAND BILATERAL G/E 3 VIEWS LOCATION: [facility] DATE: 10/18/2023 INDICATION: Polyarthralgia, myalgia, joint stiffness. COMPARISON: None. Procedure Note Brenden Odell MD - 10/18/2023 EXAM: XR HAND BILATERAL G/E 3 VIEWS LOCATION: [facility] DATE: 10/18/2023 INDICATION: Polyarthralgia, myalgia, joint stiffness. COMPARISON: None. IMPRESSION: No fractures. Moderate degenerative changes at the left andright STT and 1st CMC joints. Mild chondrocalcinosis in the TFCCsbilaterally. Chirstina Roe PA-C IMG DIAGNOSTIC IMAGING ORDERABLES documented in this encounter Visit Diagnoses Diagnosis Polyarthralgia Pain in joint, multiple sites Myalgia Mylagia and myositis, unspecified Joint stiffness Stiffness of joint, not elsewhere classified, unspecified site documented in this encounter Care Teams Gauger Chief Delivery Relationship Specialty Start Date End Date Feliciano Uribe MD [place] [id number] PCP - General Family Medicine 06/01/23 documented as of this encounter
--- OUTSIDE RECORDS SUMMARY | 2024-01-17 14:42 | XMS_ITS | Encounter Summary ---
Author Organization [place] Address [address] [place] [address] Care Team Providers Care Machine Tool Builder Name Role Phone Feliciano Uribe MD Primary Care Provider [phone] Christina Roe PA-C Unavailable Christina Roe PA-C Unavailable Reason for Visit * Reason Onset Date Comments Appointment 10/23/2023 Encounter Details Date Type Department Care Team (Late st Contact Info) Description 10/23/2023 [facility] [place] [place] Medical Advice [address] [place] [address] Christina Roe PA-C [address] [place], [place] [phone] Appointment Social History Tobacco Use Types Packs/Day [...] Hartley - 10/23/2023 3:24 PM CST lvm LE GRADER * Telephone Encounter - Smiley Perez - 10/23/2023 2:23 PM CST [facility] Phone Message May a detailed message be left on voicemail: yes Reason for Call: Other: Patient called to schedule 1 month follow up appt per previous communication w/ Christina, film writer tried to schedule but did not see any available appts for Christina until 12/26. Please advise. Action Taken: Other: RHEUM Travel Screening: Not Applicable LE GRADER * Telephone Encounter - Jonelle Aguirre, ALLYSON - 10/23/2023 8:45 AM CST To provider to review and advise, I do not see any new medication that pt is referring to. Jonelle Aguirre [facility] RN LE GRADER documented in this encounter Plan of Treatment Upcoming Encounters Date Type Department Care Team (Late st Contact Info) Description 03/20/2024 10:30 AM CDT Office Visit [facility] [address] [facility] [address] [place] [phone] Christina Roe PA-C [address] [place], [place] [phone] documented as of this encounter Visit Diagnoses Diagnosis Polyarthralgia- Primary Pain in joint, multiple sites Myalgia Mylagia and myositis, unspecified documented in this encounter Care Teams Machine Tool Builder Relationship Specialty Start Date End Date Ailabouni, Feliciano, MD [facility] - [address] [address] PCP - General Family Medicine 06/01/23 Christina Roe PA-C [address] [place] [address] Physician School Bus Aide Rheumatology 11/06/23 Christina Roe PA-C [address] [place] [address] Assigned Rheumatology Provider 11/09/23 documented as of this encounter
--- NOTE | 2024-01-17 15:30 | CRLHL7_ITS ---
For Patients: As a result of the Century Cures Act, medical imaging exams and procedure reports are released immediately into your electronic medical record. You may view this report before your referring provider. If you have questions, please contact your health care provider. DXA BONE MINERAL DENSITY STUDY Reason for exam: Osteoporosis. Current height (in): 60. Weight (lb): 144. Menopause age: 31. Ethnicity: White. 1. Have you had a previous hip or vertebral fracture? No. 2. Have you had any fractures during your adult life which did not result from significant trauma (e.g., auto accident)? No. 3. Did either of your parents have a hip fracture? No. 4. Do you smoke? No. 5. Have you ever taken Glucocorticoids? No. 6. Do you have rheumatoid arthritis? No. 7. Do you have secondary osteoporosis? Yes. 8. Do you drink 3 or more alcoholic drinks per day? No. 9. Are you being treated for osteoporosis? Yes. 10. Have you ever taken any of the following medications: Actonel, Evista, Fosamax, Miacalcin, Reclast, Boniva, Forteo, HRT (i.e. estrogen/hormone therapy), Protelos, Prolia, Vitamin D, Calcium, other ??? please specify. ANSWER: Yes, Reclast, vitamin D and calcium. 11. Do you have any of the following medical conditions: Anorexia or bulimia, asthma or emphysema, end stage renal disease, hyperparathyroidism, any seizure disorders, cancer, inflammatory bowel diseases, hysterectomy, other ??? please specify. ANSWER: Yes, hysterectomy. 12. What was your maximum height (inches)? 62. 13. Do you perform weight bearing exercise regularly? Yes. 14. Do you regularly consume dairy products? Yes. 15. Do you drink caffeinated beverages? Yes. 16. At what age did your period start? 11. 17. Are you premenopausal? No. 18. How many full term pregnancies have you had? 1. 19. Have you ever missed your period for more than 6 months in a row (not including or menopause)? No. TECHNIQUE: Bone mineral density study was performed using the [employer]. FINDINGS: The results of the study expressed as bone mineral density (BMD) are as follows: Lumbar spine L1 to L3: BMD: 0.989 g/cm2. T-score: -0.3. Z-score: 2.2. Neck Left: BMD: 0.548 g/cm2. T-score: -2.7. Z-score: -0.5. Right: BMD: 0.696 g/cm2. T-score: -1.4. Z-score: 0.8. Total Left: BMD: 0.692 g/cm2. T-score: -2.1. Z-score: -0.1. Right: BMD: 0.792 g/cm2. T-score: -1.2. Z-score: 0.7. IMPRESSION: Osteoporosis. *Comparison exams done prior to 01/2020 were performed on different unit, [employer]. COMPARISON: Compared with scan of 12/21/2022, the bone mineral density has increased by 3.4 percent at the spine and increased by 11.0 percent at the hip. Jah Alvarez M.D. Diagnostic Radiologist [email or web address] SP/Dictated by: Jah Alvarez MD @ 01/18/2024 8:53:00 AM (Electronically Signed)
== END 2024-01-17 14:39 | disposition home or self-care (01) ==
LOC: RAD 14:39
PROVIDERS: PCP Family Medicine; Visit Provider Family Medicine
DX: M81.0 Age-related osteoporosis without current pathological fracture (principal)
CPT/HCPCS: 77080

== ENCOUNTER 2024-03-15 16:36 | Emergency (ER) | payer MEDICARE, BC, SELFPAY ==
[2024-03-15 16:40] VITALS: BP 208/92; PULSE 86; RESP 18; O2SAT 98
[2024-03-15 16:46] VITALS: BP 208/92; PULSE 88; RESP 16; TEMP 37.2; O2SAT 98; BMI 28.1
[2024-03-15 17:00] VITALS: BP 206/94; PULSE 86; RESP 20; O2SAT 99
--- NOTE | 2024-03-15 17:03 | ED_ITS ---
HPI - General Adult General Chief complaint: Neck Injury/Pain Stated complaint: pain on neck right side up into head; throbbing Time Seen by Provider: 03/15/24 16:38 History of Present Illness HPI narrative: Patient is a pleasant 78 year white female with been troubled by her neck in the past. She has significant degenerative changes noted on the CT scan done recently with neck pain. She comes in with right-sided trapezius muscle tenderness some bilateral cervical strap muscle tenderness, no headache, no stroke-like symptoms patient denies trauma or injury or falls. She has benefited from prednisone for her PMR and she is on 10 mg a day right now. She started this about a month ago when she had a ?bad spell of muscle spasms and pain?. Patient this time also has atrial fib flutter and is not on anticoagulant. She has no focal neurologic changes, no word-finding ability, no facial asymmetry. And as mention no trauma to her neck. Related Data Home Medications ?Medication ?Instructions ?Recorded ?Confirmed calcium carbonate (Oyster Shell 500 mg PO QDAY 06/26/22 03/15/24 Calcium) multivitamin 1 tab PO QAM 06/26/22 03/15/24 amlodipine 10 mg tablet 5 mg PO DAILY 01/02/24 03/15/24 cyanocobalamin (vitamin B-12) 1,000 mcg IM .Q4 weeks 01/02/24 03/15/24 1,000 mcg/mL injection solution lisinopril 10 mg tablet 10 mg PO BID 01/02/24 03/15/24 metoprolol tartrate 25 mg tablet 25 mg PO BID 01/02/24 03/15/24 prednisone 5 mg tablet 5 mg PO .QD 01/02/24 03/15/24 Previous Rx's ?Medication ?Instructions ?Recorded atorvastatin 10 mg tablet 10 mg PO .Bedtime #90 tabs 01/02/24 cholecalciferol (vitamin D3) 1,250 50,000 unit PO QWEEK #12 tabs 01/02/24 mcg (50,000 unit) tablet fluoxetine 40 mg capsule 40 mg PO DAILY #90 caps 01/02/24 levothyroxine 150 mcg tablet 150 mcg PO QDAY #90 tabs 01/02/24 nitroglycerin 0.4 mg sublingual 0.4 mg sublingual ONCE PRN chest 01/02/24 tablet pain #25 tabs Allergies Allergy/AdvReac Type Severity Reaction Status Date / Time No Known Allergies Allergy Verified 03/15/24 16:50 Review of Systems Status of ROS: Reports: 6 or more systems reviewed and unremarkable except as noted in History and below [facility] Medical History Vitamin D deficiency ?E55.9 - Vitamin D deficiency, unspecified (ICD-10) Restless legs syndrome ?G25.81 - Restless legs syndrome (ICD-10) Osteoporosis ?M81.0 - Age-related osteoporosis without current pathological fracture (ICD- 10) Osteopenia (05/13/09) ?M85.80 - Other specified disorders of bone density and structure, unspecif ied site (ICD-10) Obstructive sleep apnea syndrome ?G47.33 - Obstructive sleep apnea (adult) (pediatric) (ICD-10) Muscle spasms of neck ?M62.838 - Other muscle spasm (ICD-10) Hypothyroidism (05/06/09) ?E03.9 - Hypothyroidism, unspecified (ICD-10) Hypertension (05/06/09) ?I10 - Essential (primary) hypertension (ICD-10) Hyperlipidemia (05/06/09) ?E78.5 - Hyperlipidemia, unspecified (ICD-10) History of tear of meniscus of knee joint (05/02/12) ?Z87.828 - Personal history of other (healed) physical injury and trauma (ICD-10) Hiatal hernia (05/06/09) ?K44.9 - Diaphragmatic hernia without obstruction or gangrene (ICD-10) Graves' disease (05/06/09) ?E05.00 - Thyrotoxicosis with diffuse goiter without thyrotoxic crisis or storm (ICD-10) Gastroesophageal reflux disease (05/06/09) ?K21.9 - Gastro-esophageal reflux disease without esophagitis (ICD-10) Depression (05/06/09) ?F32.A - Depression, unspecified (ICD-10) Cerebrovascular accident (CVA) (05/02/12) ?I63.9 - Cerebral infarction, unspecified (ICD-10) Calculus of kidney (05/06/09) ?N20.0 - Calculus of kidney (ICD-10) Surgical History Hx of total knee arthroplasty ?Z96.659 - Presence of unspecified artificial knee joint (ICD-10) Status post gastric bypass for obesity ?Z98.84 - Bariatric surgery status (ICD-10) History of hysterectomy (05/02/12) ?Z90.710 - Acquired absence of both cervix and uterus (ICD-10) History of cystoscopy (05/02/12) ?Z98.890 - Other specified postprocedural states (ICD-10) Social History What is your current living situation?: I presently have a place to live Problems where you live: no known problems In the past 12 months, utilities in danger of being shut off: no In past 12 months, lack of transportation kept you from medical appts, meetings, work, or getting things needed for daily living: no In the past 12 mos, have been you worried that your food would run out before you had money to buy more?: never true In the past 12 mos, the food you bought just didn't last and you didn't have money to buy more?: never true Smoking Status: Never smoker Do you use any of these nicotine containing products: None Second hand tobacco smoke exposure: No How often do you have a drink containing alcohol: 2-3 times a week Alcohol type: wine How many standard drinks containing alcohol do you have on a typical day: 1 or 2 How often do you have six or more drinks on one occasion: Never AUDIT-C Alcohol total score: 3 Non-prescribed substance use: denies use Caffeine: Yes (DAILY 3) How often does anyone, including family, friends and others, physically hurt you : never How often does anyone, including family, friends and others, insult or talk down to you: never How often does anyone, including family, friends and others, threaten you with harm: never How often does anyone, including family, friends and others, scream or curse at you: never Little interest or pleasure in doing things: several days Feeling down, depressed, or hopeless: several days Are you using contraception or practicing any form of control: No service: No Exam Narrative: Exam Narrative: Objective: Patient's vital signs showed elevated blood pressure She is alert orient x3 very pleasant She has tenderness over right trapezius muscle bilateral cervical strap muscles, no midline tenderness, limited range of motion the neck to lateral rotation to about 60? bilaterally due to muscle tightness and pain. Her arms and legs show no focal neurologic changes. Const: Vital Signs, click to edit/add: Vital Signs - 24 hr 03/15/24 16:46 Temperature 99.0 F Pulse Rate [Pulse Oximeter] 88 Respiratory Rate 16 Blood Pressure [Ri ght Upper Arm] 208/92 H Pulse Oximetry 98 Oxygen Delivery Me thod Room Air Course Vital Signs Vital signs: Initial Vital Signs Temperature 99.0 F 03/15/24 16:46 Temperature Source Temporal Artery Scan 03/15/24 16:46 Pulse Rate 88 03/15/24 16:46 Pulse Rhythm Regular 03/15/24 16:46 Pulse Strength 3+ Normal 03/15/24 16:46 Respiratory Rate 16 03/15/24 16:46 Blood Pressure 208/92 H 03/15/24 16:46 Blood Pressure Mean 130 H 03/15/24 16:46 Blood Pressure Position Semi-Fowlers 03/15/24 16:46 Pulse Oximetry 98 03/15/24 16:46 Oxygen Delivery Method Room Air 03/15/24 16:46 Vital Signs Temperature 99.0 F 03/15/24 16:46 Pulse Rate 88 03/15/24 16:46 Respiratory Rate 16 03/15/24 16:46 Blood Pressure 208/92 H 03/15/24 16:46 Pulse Oximetry 98 03/15/24 16:46 Oxygen Delivery Method Room Air 03/15/24 16:46 Temperature 99.0 F 03/15/24 16:46 Pulse Rate 88 03/15/24 16:46 Respiratory Rate 16 03/15/24 16:46 Blood Pressure 208/92 H 03/15/24 16:46 Pulse Oximetry 98 03/15/24 16:46 Oxygen Delivery Method Room Air 03/15/24 16:46 Medical Decision Making MDM Narrative Medical decision making narrative: [age] year white female with a history of PMR, currently on prednisone, with neck stiffness and tightness, so trapezius muscle spasm on the right. No evidence of radicular symptoms at this time, range of motion is limited by muscle stiffness. She did have a recent CT scan of the neck does show degenerative change no fracture. I think at this point we can try an injection of morphine 5 mg to get muscle relaxation and some pain control. Also she can take Tylenol at home as she has had a Suellen-en-Y back bypass surgery in the past as well. Lastly I think she could increase her prednisone to 20 mg daily for the next 3-5 days and then go back to 10 mg daily she consult her net sorter as needed. If she has trouble or concerns or changes or lack of improvement should return to the ED. she was comfortable this plan wish to proceed accordingly. Discharge Plan Discharge Clinical Impression: Cervical spine pain, PMR (polymyalgia rheumatica) Patient Disposition: Home w/ Parent or Adult Condition: Stable Additional Instructions: Rest, light activity, ice to the neck as tolerated, increase her prednisone to 20 mg daily for 3-5 days, then return to 10 mg daily. Will given injection of morphine today, this is for muscle relaxation and pain control. This should help settle the muscles in your neck down. Use ice on your neck, return if there is problems concerns. Recheck with regular doctor in 3-5 days if not better. Activity Level: Light activity Discharge Diet: Regular Prescriptions: No Action multivitamin Tablet 1 tab PO QAM calcium carbonate [Oyster Shell Calcium] 500 mg calcium (1,250 mg) tablet 500 mg PO QDAY cyanocobalamin (vitamin B-12) 1,000 mcg/mL solution 1,000 mcg IM .Q4 weeks prednisone 5 mg tablet 5 mg PO .QD metoprolol tartrate 25 mg tablet 25 mg PO BID amlodipine 10 mg tablet 5 mg PO DAILY lisinopril 10 mg tablet 10 mg PO BID atorvastatin 10 mg tablet 10 mg PO .Bedtime Qty: 90 3RF cholecalciferol (vitamin D3) 1,250 mcg (50,000 unit) tablet 50,000 unit PO QWEEK Qty: 12 3RF fluoxetine 40 mg capsule 40 mg PO DAILY Qty: 90 3RF levothyroxine 150 mcg tablet 150 mcg PO QDAY Qty: 90 3RF nitroglycerin 0.4 mg tablet, sublingual 0.4 mg sublingual ONCE PRN (Reason: chest pain) Qty: 25 0RF Rx Instructions: PRN CHEST PAIN, take every 5 min x 3 doses max Follow Up/Referrals: Feliciano Uribe MD [Primary Care Provider] - Stand Alone Forms: WordStream Info Instructions
--- OUTSIDE RECORDS SUMMARY | 2024-03-15 17:11 | XMS_ITS | Encounter Summary ---
Author Organization [facility] Address [address] [place] [address] Care Team Providers Care Salvage Cutter Name Role Phone Feliciano Uribe MD Primary Care Provider [phone] Christina Roe PA-C Unavailable Christina Roe PA-C Unavailable [phone] Reason for Visit * Reason Onset Date Comments Appointment 10/23/2023 Encounter Details Date Type Department Care Team (Late st Contact Info) Description 10/23/2023 [facility] [address] [place] [address] Christina Roe PA-C [address] [place], [place] [phone] Appointment Social History Tobacco Use Types Packs/Day [...] Hartley - 10/23/2023 3:24 PM CST lvm ITIONAL YEAST SUPERVISOR * Telephone Encounter - Smiley Perez - 10/23/2023 2:23 PM CST [facility] Phone Message May a detailed message be left on voicemail: yes Reason for Call: Other: Patient called to schedule 1 month follow up appt per previous communication w/ Christina, administrative underwriter tried to schedule but did not see any available appts for Christina until 12/26. Please advise. Action Taken: Other: RHEUM Travel Screening: Not Applicable ITIONAL YEAST SUPERVISOR * Telephone Encounter - Jonelle Aguirre, ALLYSON - 10/23/2023 8:45 AM CST To provider to review and advise, I do not see any new medication that pt is referring to. Jonelle Aguirre [facility] RN ITIONAL YEAST SUPERVISOR documented in this encounter Plan of Treatment Upcoming Encounters Date Type Department Care Team (Late st Contact Info) Description 03/20/2024 10:30 AM CDT Office Visit [facility] [address] [place] [phone] Christina Roe PA-C [address] [place], [place] [phone] documented as of this encounter Visit Diagnoses Diagnosis Polyarthralgia- Primary Pain in joint, multiple sites Myalgia Mylagia and myositis, unspecified documented in this encounter Care Teams Salvage Cutter Relationship Specialty Start Date End Date Ailabouni, Feliciano, MD [facility] - [address] [address] PCP - General Family Medicine 06/01/23 Christina Roe PA-C [address] [place] [address] Physician Ice Cream Freezer Helper Rheumatology 11/06/23 Christina Roe PA-C [address] [place] [address] Assigned Rheumatology Provider 11/09/23 documented as of this encounter
--- OUTSIDE RECORDS SUMMARY | 2024-03-15 17:11 | XMS_ITS | Encounter Summary ---
Author Organization [facility] Address [address] [place] [address]. [place] [address] Care Team Providers Care Mask Layout Designer Name Role Phone Feliciano Uribe MD Primary Care Provider Christina Roe PA-C Unavailable [phone] Christina Roe PA-C Unavailable [phone] Encounter Details Date Type Department Care Team [...] Description 03/20/2024 10:30 AM CDT Office Visit [address] [place] [address] Christina Roe PA-C [address] [place] [address] documented as of this encounter Visit Diagnoses Not on filedocumented in this encounter Care Teams Mask Layout Designer Relationship Specialty Start Date End Date Feliciano Uribe MD [facility] [address] [place] [address] PCP - General Family Medicine 06/01/23 Christina Roe PA-C [address] [place] [address] Physician Medicaid Collection Specialist Rheumatology 11/06/23 Christina Roe PA-C [address] [place] [address] Assigned Rheumatology Provider 11/09/23 documented as of this encounter
--- OUTSIDE RECORDS SUMMARY | 2024-03-15 17:11 | XMS_ITS | Encounter Summary ---
Author Organization [facility] Address [address] [place] [address] Care Team Providers Care Production Stage Manager Name Role Phone Feliciano Uribe MD Primary Care Provider Christina Roe PA-C Unavailable [phone] Christina Roe PA-C Unavailable [phone] Reason for Visit * Reason Comments RECHECK Encounter Details Date Type Department Care Team (Late st Contact Info) Description 12/13/2023 12:00 PM CDT Office Visit [address] [place] [address] Christina Roe PA-C [address] [place], [place] [phone] Polymyalgia rheumatica (H24) (Primary Dx); On prednisone [...] Visit Instructions: Thank you for coming to [facility] for your care. It [...] 1mg every 2 weeks. Christina Roe PA-C [facility] Contact information: [facility] Clinic Number: [phone] Please call or send a CreoPop message with any questions about your care documented in this encounter Progress Notes * Christina Roe PA-C - 12/13/2023 12:00 PM CDT Rheumatology Clinic Visit [facility] MAURILIO Woodardgilbert [place] Barbara Date of [...] Resource Strain: Low Risk (10/10/2022) Received from [facility] Overall Financial Resource Strain (CARDIA) Difficulty of Paying Living Expenses: Not hard at all Food Insecurity: No Food Insecurity (10/10/2022) Received from [facility] Hunger Vital Sign Worried About Running Out of Food in the Last Year: Never true Ran Out of Food in the Last Year: Never true Transportation Needs: No Transportation Needs (10/10/2022) Received from [facility] PRAPARE - Transportation Lack of Transportation (Medical): No Lack of Transportation (Non-Medical): No Physical Activity: Insufficiently Active (10/10/2022) Received from [facility] Exercise Vital Sign Days of Exercise per Week: 2 days Minutes of Exercise per Session: 40 min Stress: No Stress Concern Present (10/10/2022) Received from [facility] [place] of Occupational Health - Occupational Stress Questionnaire Feeling of Stress : Only a little Social Connections: Socially Integrated (10/10/2022) Received from [facility] Social Connection and Isolation Panel [NHANES] Frequency of Communication with Friends and Family: Twice a week Frequency of Social Gatherings with Friends and Family: Twice a week Attends Restorationism Services: More than 4 times per year Active Member of Clubs or Organizations: Yes Attends Club or Organization Meetings: 1 to 4 times per year Marital Status: Interpersonal Safety: Not At Risk (10/10/2022) Received from [facility] Humiliation, Afraid, Rape, and Kick questionnaire Fear of Current or Ex-Partner: No Emotionally Abused: No Physically Abused: No Sexually Abused: No Housing Stability: Low Risk (10/10/2022) Received from [facility] Housing Stability Vital Sign Unable to [...] by mouth at bedtime D3-50 1.25 MG (34120 UT) capsule Take 1,250 mcg by mouth [...] Description 03/20/2024 10:30 AM CDT Office Visit [address] [phone] Christina Roe PA-C [address] [place] [address] documented as of this encounter Visit Diagnoses Diagnosis Polymyalgia rheumatica (H24)- Primary Polymyalgia rheumatica On prednisone therapy documented in this encounter Care Teams Production Stage Manager Relationship Specialty Start Date End Date Feliciano Uribe MD [address] [address] PCP - General Family Medicine 06/01/23 Christina Roe PA-C [address] [place] [address] Physician Gang Investigator Rheumatology 11/06/23 Christina Roe PA-C [address] [place] [address] Assigned Rheumatology Provider 11/09/23 documented as of this encounter
--- OUTSIDE RECORDS SUMMARY | 2024-03-15 17:11 | XMS_ITS | Encounter Summary ---
Author Organization [facility] Address [address] [place] [address]. [place] [address] Care Team Providers Care Supervisor [place] Name Role Phone Feliciano Uribe MD Primary Care Provider Christina Roe PA-C Unavailable Christina Roe PA-C Unavailable Reason for Visit * Reason Onset Date Comments Patient/info Update 12/07/2023 Encounter Details Date Type Department Care Team (Late st Contact Info) Description 12/07/[address] [address] Christina Roe PA-C [address] [place], [place] [phone] Patient/info Update Social History Tobacco Use Types [...] - 12/07/2023 9:07 AM CDT [facility] Call Center Phone Message May a [...] Description 03/20/2024 10:30 AM CDT Office Visit [address] [address] Christina Roe PA-C [address] [place] [address] documented as of this encounter Visit Diagnoses Not on filedocumented in this encounter Care Teams Supervisor [place] Relationship Specialty Start Date End Date Feliciano Uribe MD [address] [address] PCP - General Family Medicine 06/01/23 Christina Roe PA-C [address] [place] [address] Physician Area Counselor Rheumatology 11/06/23 Christina Roe PA-C [address] [place] [address] Assigned Rheumatology Provider 11/09/23 documented as of this encounter
--- OUTSIDE RECORDS SUMMARY | 2024-03-15 17:11 | XMS_ITS | Referral Summary ---
Author Organization [facility] Address [address] [place] [address] Care Team Providers Care Eyeglass Lens Grinder Name Role Phone Unavailable Primary Care Provider Unavailabl e Source Comments Patient records contain information from all sites at [facility]. For routine questions regarding patient records, call [phone] during business hours, M-F 8:00 AM - 5:00 PM Central Time. Record requests for emergency care only can be directed to [phone] at any time.[facility] Allergies No known active allergies Medications [...] How often do you attend chur or congregational services? More than 4 times per year 10/10/2022 Do you belong to any clubs o r organizations such as latter day groups, unions, fraternal or athletic groups, or [...] and heating? Not hard at all 10/10/2022 [facility] of Occupat ional Health - Occupational Stress [...] place to sleep or slept in a fpc (including now)? No 10/10/2022 Nutrition Answer Date [...] Sex Assigned at Female 10/10/2022 4:07 PM DEVELOPMENTAL SERVICES WORKER Gender Identity Female 07/16/2018 12:55 PM DEVELOPMENTAL SERVICES WORKER Sexual Orientation Straight 07/16/2018 12 :55 PM DEVELOPMENTAL SERVICES WORKER Last Filed Vital Signs Vital Sign Reading Time Taken Comments Blood Pressure 163/73 10/31/2022 12:17 PM DEVELOPMENTAL SERVICES WORKER Pulse 75 10/31/2022 12:17 PM DEVELOPMENTAL SERVICES WORKER Temperature 36.5 ??C (97.7 ??F) 10/31/2022 1 2:27 PM DEVELOPMENTAL SERVICES WORKER Respiratory Rate 20 10/31/2022 12:1 7 PM DEVELOPMENTAL SERVICES WORKER Oxygen Saturation 96% 10/31/2022 12: 17 PM DEVELOPMENTAL SERVICES WORKER Inhaled Oxygen Concentration - - Weight 55.2 kg (121 lb 11.1 oz) 11/01/2022 9:18 AM DEVELOPMENTAL SERVICES WORKER Height 152 cm (4' 11.84) 11/01/2022 9:18 AM DEVELOPMENTAL SERVICES WORKER Body Mass Index 23.89 11/01/2022 9:18 AM DEVELOPMENTAL SERVICES WORKER Plan of Treatment Not on file Medical Devices Implanted Type Area Corporate Travel Expert Device Identifier Shelf Expiration Date Model / Serial / Lot Knee Implant- 022 Implanted:0 01/2022 (Quantity not on file) Knee Implant Right: Knee Ocular Lens Ocular Lens Bilatera l: Eye Procedures Procedure Name Priority Date/Time Associated Diagnosis Comments COMPREHENSIVE METABOLIC PANEL, S/P Routine 10/17/2022 10:01 AM DEVELOPMENTAL SERVICES WORKER 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, S Routine 06/23/2019 10:25 AM CDT Overweight Body Mass Index 25-29.9 Adult Hypertension Essential Primary Hyperlipidemia Family History Coronary Artery Disease Elevated Liver Enzyme Abnormal, Aspartate Transaminase, Serum Glutamic-Oxaloacetic Transaminase, Alanine Transaminase Hypothyroidism Primary from Last 3 Months or Most Recently Relevant to Health Maintenance Results * Comprehensive Metabolic Panel (10/17/2022 10:01 AM DEVELOPMENTAL SERVICES WORKER) Pathologist [facility] Potassium, S 4.5 3.6 - 5.2 mmol/L 10/17/2022 11:02 AM DEVELOPMENTAL SERVICES WORKER DTL Sodium, S 141 135 - 145 mmol/L 10/17/2022 11:02 AM DEVELOPMENTAL SERVICES WORKER DTL Chloride, S 106 98 - 107 mmol/L 10/17/2022 11:02 AM DEVELOPMENTAL SERVICES WORKER DTL Bicarbonate, S 26 22 - 29 mmol/L 10/17/2022 11:02 AM DEVELOPMENTAL SERVICES WORKER DTL Anion Gap 9 7 - 15 10/17/2022 11:02 AM DEVELOPMENTAL SERVICES WORKER DTL BUN (Blood Urea Nitrogen), S 12 6 - 21 mg/dL 10/17/2022 11:02 AM DEVELOPMENTAL SERVICES WORKER DTL Creatinine 0.59 0.59 - 1.04 mg/dL 10/17/2022 11:02 AM DEVELOPMENTAL SERVICES WORKER DTL Estimated GFR (eGFR) >90 >=60 mL/min/BS A 10/17/2022 11:02 AM DEVELOPMENTAL SERVICES WORKER DTL Comment: Estimated GFR calculated using the 2020 CKD_EPI creatinine equation. Calcium, Total, S 9.7 8.8 - 10.2 mg/dL 10/17/2022 11:02 AM DEVELOPMENTAL SERVICES WORKER DTL Glucose, S 100 70 - 140 mg/dL 10/17/2022 11:02 AM DEVELOPMENTAL SERVICES WORKER DTL Protein, Total, S 6.8 6.3 - 7.9 g/dL 10/17/2022 11:02 AM DEVELOPMENTAL SERVICES WORKER DTL Albumin, S 4.5 3.5 - 5.0 g/dL 10/17/2022 11:02 AM DEVELOPMENTAL SERVICES WORKER DTL Aspartate Aminotransferase (AST), S 23 8 - 43 U/L 10/17/2022 11:02 AM DEVELOPMENTAL SERVICES WORKER DTL Alkaline Phosphatase, S 83 35 - 104 U/L 10/17/2022 11:02 AM DEVELOPMENTAL SERVICES WORKER DTL Alanine Aminotransferase (ALT), S 23 7 - 45 U/L 10/17/2022 11:02 AM DEVELOPMENTAL SERVICES WORKER DTL Bilirubin, Total, S 0.3 <=1.2 mg/dL 10/17/2022 11:02 AM DEVELOPMENTAL SERVICES WORKER DTL Blood (Blood, Venous) 10/17/2022 10:01 AM DEVELOPMENTAL SERVICES WORKER 10/17/2022 10:38 AM DEVELOPMENTAL SERVICES WORKER Merlyn Cobos M.D. LAB BLO OD [facility] [address] [place] [address], [facility] [address] [place] [address] * (ABNORMAL) Thyroid Function [place] (06/23/2019 10:25 AM CDT) TSH, Sensitive 6.0(H) 0.3 - 4.2 mIU/L 06/24/2019 8:43 AM CDT DTL Blood (Blood, Venous) 06/23/2019 10:25 AM CDT 06/24/2019 7:34 AM CDT Narrative Resulting Agency Comment Mailed In Specimen Sony Belcher Jennifer BEAN C.N.P., D.N.P. LAB BLOOD [facility] [address] [place] [address], [place] [facility] [address] [place] [address] from Last 3 Months or Most Recently Relevant to Health Maintenance
--- OUTSIDE RECORDS SUMMARY | 2024-03-15 17:11 | XMS_ITS | Encounter Summary ---
Author Organization [facility] Address [address] [place] [address] Care Team Providers Care Regulatory Process Manager Name Role Phone Feliciano Uribe MD Primary Care Provider [phone] Christina Roe PA-C Unavailable [phone] Christina Roe PA-C Unavailable Encounter Details Date Type Department Care Team (Late st Contact Info) Description 01/21/2024 My[facility] Medical Advice [address] [address] Christina Roe PA-C [address] [place] [address] Social History Tobacco Use Types Packs/Day Years [...] Description 03/20/2024 10:30 AM CDT Office Visit [address] [place] [address] Christina Roe PA-C [address] [place] [address] documented as of this encounter Visit Diagnoses Not on filedocumented in this encounter Care Teams Regulatory Process Manager Relationship Specialty Start Date End Date Feliciano Uribe MD [address] [address] PCP - General Family Medicine 06/01/23 Christina Roe PA-C [address] [place] [address] Physician Compliance Paralegal Rheumatology 11/06/23 Christina Roe PA-C [address] [place] [address] Assigned Rheumatology Provider 11/09/23 documented as of this encounter
--- OUTSIDE RECORDS SUMMARY | 2024-03-15 17:11 | XMS_ITS | Encounter Summary ---
Author Organization [facility] Address [address] [place] [address] Care Team Providers Care Oral Therapist Name Role Phone Feliciano Uribe MD Primary Care Provider Christina Roe PA-C Unavailable Christina Roe PA-C Unavailable [phone] Encounter Details Date Type Department Care Team (Late Contact Info) Description 04/24/2013 Abstract [facility] [place] [facility] [address] [place] [phone] Iris Hernandez [facility] [address] [facility] [address] [place] [address] Social History Tobacco Use Types Packs/Day Years Used Date Smoking Tobacco: Never Assessed Sex and Gender Information Value Date Recorded Sex Assigned at Not on file Gender Identity Not on file Sexual Orientation Not on file documented as of this encounter Plan of Treatment Upcoming Encounters Date Type Department Care Team (Late st Contact Info) Description 03/20/2024 10:30 AM CDT Office Visit [facility] [address] [facility] [address] [place] [phone] Christina Roe PA-C [address] [place], [place] [id number] documented as of this encounter Visit Diagnoses Not on filedocumented in this encounter Care Teams Oral Therapist Relationship Specialty Start Date End Date Feliciano Uribe MD [facility] [address] [place] [address] PCP - General Family Medicine 06/01/23 Christina Roe PA-C [address] [place] [address] Physician Alternative Medicine Practitioner Rheumatology 11/06/23 Christina Roe PA-C [address] [place] [address] Assigned Rheumatology Provider 11/09/23 documented as of this encounter
--- OUTSIDE RECORDS SUMMARY | 2024-03-15 17:11 | XMS_ITS | Clinical Summary ---
Author Organization [facility] Address [address] [place] [address] Care Team Providers Care Evidence Technician Name Role Phone Unavailable Primary Care Provider Unavailabl e Source Comments Patient records contain information from all sites at [facility]. For routine questions regarding patient records, call [phone] during business hours, M-F 8:00 AM - 5:00 PM Central Time. Record requests for emergency care only can be directed to [phone] at any time.[facility] Allergies No known active allergies Medications [...] often do you attend chur ch or rastafari services? More than 4 times per year 10/10/2022 Do you belong to any clubs o r organizations such as latter-day groups, unions, fraternal or athletic groups, or [...] and heating? Not hard at all 10/10/2022 [facility] [place] of Occupat ional Health - Occupational Stress [...] place to sleep or slept in a mcc (including now)? No 10/10/2022 Nutrition Answer Date [...] Sex Assigned at Female 10/10/2022 4:07 PM VISITOR USE ASSISTANT Gender Identity Female 07/16/2018 12:55 PM VISITOR USE ASSISTANT Sexual Orientation Straight 07/16/2018 12 :55 PM VISITOR USE ASSISTANT Last Filed Vital Signs Vital Sign Reading Time Taken Comments Blood Pressure 163/73 10/31/2022 12:17 PM VISITOR USE ASSISTANT Pulse 75 10/31/2022 12:17 PM VISITOR USE ASSISTANT Temperature 36.5 ??C (97.7 ??F) 10/31/2022 1 2:27 PM VISITOR USE ASSISTANT Respiratory Rate 20 10/31/2022 12:1 7 PM VISITOR USE ASSISTANT Oxygen Saturation 96% 10/31/2022 12: 17 PM VISITOR USE ASSISTANT Inhaled Oxygen Concentration - - Weight 55.2 kg (121 lb 11.1 oz) 11/01/2022 9:18 AM VISITOR USE ASSISTANT Height 152 cm (4' 11.84) 11/01/2022 9:18 AM VISITOR USE ASSISTANT Body Mass Index 23.89 11/01/2022 9:18 AM VISITOR USE ASSISTANT Plan of Treatment Health Maintenance Due Date [...] 10/17/2023 10/17/2022, 06/29, 07/23/2022, Additional history exists Influenza Vaccine (#1) 2024 , 07/19/2021, 06/21/2020, Additional history exists DTaP,Tdap,and Td Vaccines (5 - Td or Tdap) 11/22/2031 11/21/2021, 05/02/2012, 03/10/2005, Additional history exists Colonoscopy Discontinued 08/27/2003 (Perf ormed elsewhere) Colorectal Cancer Screening Discontinued Mammogram Discontinued 05/27/2012 (Perf ormed elsewhere), 04/29/2012 (Performed elsewhere) Pneumococcal vaccine (65+ years) Completed 01/12/2015, 11/28/2013, 08/27/2007 CT Colonography Discontinued Cologuard Discontinued FIT Discontinued Medical Devices Implanted Type Area Sewing Machine Assembler Device Identifier Shelf Expiration Date Model / Serial / Lot Knee Implant- [id number] Implanted:01/2022 (Quantity not on file) Knee Implant Right: Knee Ocular Lens Ocular Lens Bilatera l: Eye Procedures Procedure Name Priority Date/Time Associated Diagnosis Comments COMPREHENSIVE METABOLIC PANEL, S/P Routine 10/17/2022 10:01 AM VISITOR USE ASSISTANT 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, S Routine 06/23/2019 10:25 AM CDT Overweight Body Mass Index 25-29.9 Adult Hypertension Essential Primary Hyperlipidemia Family History Coronary Artery Disease Elevated Liver Enzyme Abnormal, Aspartate Transaminase, Serum Glutamic-Oxaloacetic Transaminase, Alanine Transaminase Hypothyroidism Primary from Last 3 Months or Most Recently Relevant to Health Maintenance Results * Comprehensive Metabolic Panel (10/17/2022 10:01 AM VISITOR USE ASSISTANT) Potassium, S 4.5 3.6 - 5.2 mmol/L 10/17/2022 11:02 AM VISITOR USE ASSISTANT DTL Sodium, S 141 135 - 145 mmol/L 10/17/2022 11:02 AM VISITOR USE ASSISTANT DTL Chloride, S 106 98 - 107 mmol/L 10/17/2022 11:02 AM VISITOR USE ASSISTANT DTL Bicarbonate, S 26 22 - 29 mmol/L 10/17/2022 11:02 AM VISITOR USE ASSISTANT DTL Anion Gap 9 7 - 15 10/17/2022 11:02 AM VISITOR USE ASSISTANT DTL BUN (Blood Urea Nitrogen), S 12 6 - 21 mg/dL 10/17/2022 11:02 AM VISITOR USE ASSISTANT DTL Creatinine 0.59 0.59 - 1.04 mg/dL 10/17/2022 11:02 AM VISITOR USE ASSISTANT DTL Estimated GFR (eGFR) >90 >=60 mL/min/BS A 10/17/2022 11:02 AM VISITOR USE ASSISTANT DTL Comment: Estimated GFR calculated using the 2020 CKD_EPI creatinine equation. Calcium, Total, S 9.7 8.8 - 10.2 mg/dL 10/17/2022 11:02 AM VISITOR USE ASSISTANT DTL Glucose, S 100 70 - 140 mg/dL 10/17/2022 11:02 AM VISITOR USE ASSISTANT DTL Protein, Total, S 6.8 6.3 - 7.9 g/dL 10/17/2022 11:02 AM VISITOR USE ASSISTANT DTL Albumin, S 4.5 3.5 - 5.0 g/dL 10/17/2022 11:02 AM VISITOR USE ASSISTANT DTL Aspartate Aminotransferase (AST), S 23 8 - 43 U/L 10/17/2022 11:02 AM VISITOR USE ASSISTANT DTL Alkaline Phosphatase, S 83 35 - 104 U/L 10/17/2022 11:02 AM VISITOR USE ASSISTANT DTL Alanine Aminotransferase (ALT), S 23 7 - 45 U/L 10/17/2022 11:02 AM VISITOR USE ASSISTANT DTL Bilirubin, Total, S 0.3 <=1.2 mg/dL 10/17/2022 11:02 AM VISITOR USE ASSISTANT DTL Blood (Blood, Venous) 10/17/2022 10:01 AM VISITOR USE ASSISTANT 10/17/2022 10:38 AM VISITOR USE ASSISTANT Merlyn Cobos M.D. LAB BLO OD ADD-ON [facility] [address] [place] [address], [facility] [address] [place] [address] * (ABNORMAL) Thyroid Function [place] (06/23/2019 10:25 AM CDT) TSH, Sensitive 6.0(H) 0.3 - 4.2 mIU/L 06/24/2019 8:43 AM CDT DTL Blood (Blood, Venous) 06/23/2019 10:25 AM CDT 06/24/2019 7:34 AM CDT Narrative Resulting Agency Comment Mailed In Specimen Sony A Jennifer BEAN C.N.P., D.N.P. LAB BLOOD ADD-ON [facility] [address] [place] [address], [place] DTL [facility] [address] [place] [address] from Last 3 Months or Most Recently Relevant to Health Maintenance
--- OUTSIDE RECORDS SUMMARY | 2024-03-15 17:11 | XMS_ITS | Clinical Summary ---
Author Organization [facility] Address [address] [place] [address] Care Team Providers Care Forest Pathology Teacher Name Role Phone Feliciano Uribe MD Primary Care Provider [phone] Source Comments You are receiving this document as you are listed as the primary care provider,follow-up provider, or the patient has been referred to you for consultation.This is in compliance with the Medicare and[facility] EHR Incentive Program,which states Providers who transition their patient to another setting of careor provider of care or refers their patient to another provider of care shouldprovide summary care record for each transition of care or referral. [employer] Allergies No known active allergies Medications Medication [...] a day. 03/27/2019 Active Cholecalciferol (VITAMIN D3) 50777 units TABS 03/27/2019 Active levothyroxine (SYNTHROID) 137 [...] every week. Take 30 minutes before first [id number] n. Avoid lying down for 30 minutes. [...] ( - season) 2023 11/12/2020, 10/15/2020 Influenza (#1) 2024 06/21/2020, 1109/2017, 05/02/2017, Additional history exists Pneumococcal [...] age to complete this topic Care Teams Forest Pathology Teacher Relationship Specialty Start Date End Date Feliciano Uribe MD [address] [place] [address] PCP - General 02/17/19
--- OUTSIDE RECORDS SUMMARY | 2024-03-15 17:11 | XMS_ITS | Clinical Summary ---
Author Organization [facility] Address [place], [place] [address] Care Team Providers Care Molecular Spectroscopist Name Role Phone Feliciano Uribe MD Primary Care Provider [phone] Allergies No known active allergies Medications Medication [...] Primary hypertension Gastric bypass status for obesity Social History Tobacco Use Types Packs/Day Years [...] 36.7 ??C (98 ??F) 07/27/2022 4:00 PM POTATO PICKER Respiratory Rate 16 07/27/2022 4:00 PM POTATO PICKER Oxygen Saturation 98% 12/11/2023 8:25 AM CDT Inhaled Oxygen Concentration - - Weight 65.5 kg (144 lb 4.8 oz) 12/11/2023 8:25 A M CDT Height 177.8 cm (5' 10) 07/22/2022 1:00 PM POTATO PICKER Body Mass Index 20.7 07/22/2022 1:00 PM POTATO PICKER Plan of Treatment Health Maintenance Due Date [...] PCV) 2011 COVID-19 vaccine series (3 - 2022-24 season) 2023 11/12/2020, 10/15/2020 Influenza for age 65+ 04/27/2024 Advance Directives * Full Code (Latest Code Status on File) Date Activated Date Inactivated Comments 07/22/2022 1:18 PM 07/27/2022 7:46 PM Question Answer Comments Code Status Discussion: Reviewed Preferences Care Teams Molecular Spectroscopist Relationship Specialty Start Date End Date Feliciano Uribe MD [address] [place] [address] PCP - General Family Practice 09/01/22
--- OUTSIDE RECORDS SUMMARY | 2024-03-15 17:11 | XMS_ITS | Encounter Summary ---
Author Organization [facility] Address [address] [place] [address] Care Team Providers Care Shelter Advocate Name Role Phone Feliciano Uribe MD Primary Care Provider Christina Roe PA-C Unavailable Christina Roe PA-C Unavailable Encounter Details Date Type Department Care Team (Late st Contact Info) Description 02/15/2024 My[facility] Medical Advice [address] [address] Christina Roe PA-C [address] [place] [address] Polymyalgia rheumatica (H24) (Primary Dx) Social History Tobacco Use Types [...] Description 03/20/2024 10:30 AM CDT Office Visit [address] [place] [phone] Christina Roe PA-C [address] [place] [address] documented as of this encounter Visit Diagnoses Diagnosis Polymyalgia rheumatica (H24)- Primary Polymyalgia rheumatica documented in this encounter Care Teams Shelter Advocate Relationship Specialty Start Date End Date Feliciano Uribe MD [address] [address] PCP - General Family Medicine 06/01/23 Christina Roe PA-C [address] [place] [address] Physician Allergy Physician Rheumatology 11/06/23 Christina Roe PA-C [address] [place] [address] Assigned Rheumatology Provider 11/09/23 documented as of this encounter
--- OUTSIDE RECORDS SUMMARY | 2024-03-15 17:11 | XMS_ITS ---
Author Organization [facility] Address [address] [place] [address] Care Team Providers Care Environmental Control Administrator Name Role Phone Unavailable Unavailable Unavailable Surgery Details Not on file Complications Check Surgery Details section. Procedure Estimated Blood Loss Check Surgery Details section. Procedure Findings Check Surgery Details section. Procedure Specimens Taken Check Surgery Details section.
--- OUTSIDE RECORDS SUMMARY | 2024-03-15 17:11 | XMS_ITS | Referral Summary ---
Author Organization [facility] Address [address] [place] [address] Care Team Providers Care Planning Division Superintendent Name Role Phone Feliciano Uribe MD Primary Care Provider [phone] Christina Roe PA-C Unavailable [phone] Christina Roe PA-C Unavailable Encounters Date Type Department Care Team Description 02/15/2024 [facility]ice [address] [place] [address] Christina Roe PA-C Polymyalgia rheumatica (H24) (Primary Dx) 01/21/2024 [facility] [address] [place] [phone] Christina Roe PA-C from Last 3 Months Allergies Active Allergy [...] mouth at bedtime Active D3-50 1.25 MG (57648 UT) capsule Take 1,250 mcg by mouth [...] 120 tablet 2 12/13/2023 Active predniSONE (DELTASONE) 5 MG tabletIndications: Polymyalgia rheumatica (H24) Take 1 tablet (5 mg) by mouth daily 30 tablet 1 02/20/2024 Active Active Problems Problem Noted Date Diagnosed [...] Description 03/20/2024 10:30 AM CDT Office Visit [address] [address] Christina Roe PA-C [address] [place] [address] Care Teams Planning Division Superintendent Relationship Specialty Start Date End Date Feliciano Uribe MD [facility] [address] [place] [address] PCP - General Family Medicine 06/01/23 Christina Roe PA-C [address] [place] [address] Physician Retail Special Event Associate Rheumatology 11/06/23 Christina Roe PA-C [address] [place] [address] Assigned Rheumatology Provider 11/09/23
--- OUTSIDE RECORDS SUMMARY | 2024-03-15 17:11 | XMS_ITS | Clinical Summary ---
Author Organization [facility] Address [address] [place] [address] Care Team Providers Care Adventure Guide Name Role Phone Feliciano Uribe MD Primary Care Provider Christina Roe PA-C Unavailable [phone] Christina Roe PA-C Unavailable Allergies Active Allergy [...] mouth at bedtime Active D3-50 1.25 MG (03514 UT) capsule Take 1,250 mcg by mouth [...] Date Type Department Care Team Description 02/15/2024 [facility] Medical Advice [address] [place] [address] Christina Roe PA-C Polymyalgia rheumatica (H24) (Primary Dx) 01/21/2024 MyC Medical Advice [place] [id number] [facility] [address] [place] [address] Christina Roe PA-C from Last 3 Months Immunizations Name Administration [...] Description 03/20/2024 10:30 AM CDT Office Visit [address] [place] [address] Christina Roe PA-C [address] [place] [address] Health Maintenance Due Date Last Done Comments ADVANCE CARE PLANNING 1945 ANNUAL REVIEW OF HM ORDERS 1945 DEXA 1945 GLUCOSE 1946 LIPID 1946 TSH W/FREE T4 REFLEX 1946 HEPATITIS C SCREENING 1964 ZOSTER IMMUNIZATION (1 of 2) 1996 RSV VACCINE ( & 60+) (1 - 1-dose 60+ series) 2006 FALL RISK ASSESSMENT 2011 MEDICARE ANNUAL WELLNESS VISIT 2011 COVID-19 Vaccine ( season) 2023 11/12/2020, 10/15/2020 PHQ-2 (once per calendar year) 2023 INFLUENZA VACCINE (#1) 2024 3, 07/19/2021, 06/21/2020, Additional history exists DTAP/TDAP/TD IMMUNIZATION (3 - Td or Tdap) 11/22/2031 11/21/2021, 05/02/2012, 03/10/2005 Pneumococcal Vaccine: 65+ Years Completed 01/12/2015, 11/28/2013, 08/27/2007 HPV IMMUNIZATION Aged Out No longer e [...] age to complete this topic Care Teams Adventure Guide Relationship Specialty Start Date End Date Feliciano Uribe MD [facility] [address] [place] [address] PCP - General Family Medicine 06/01/23 Christina Roe PA-C [address] [place] [address] Physician Salesperson Handbags Rheumatology 11/06/23 Christina Roe PA-C [address] [place] [address] Assigned Rheumatology Provider 11/09/23
[2024-03-15 17:20] VITALS: BP 210/97; PULSE 85; RESP 20; O2SAT 99
[2024-03-15] MEDS: MORPHINE 10 MG/ML inj 5 MG IM (17:20)
[2024-03-15 17:52] VITALS: BP 173/77; PULSE 74; RESP 18; O2SAT 93
== END 2024-03-15 17:53 | disposition home or self-care (01) ==
LOC: ED 17:09
PROVIDERS: Emergency Provider Family Medicine; PCP Family Medicine
DX: M54.2 Cervicalgia (principal); M35.3 Polymyalgia rheumatica
CPT/HCPCS: 96372; 99284; J2270

== ENCOUNTER 2024-05-16 13:10 | Outpatient (CLI) | payer MEDICARE, BC, SELFPAY ==
--- OUTSIDE RECORDS SUMMARY | 2024-05-16 13:13 | XMS_ITS | Clinical Summary ---
Author Organization [place] Address [address] [place] [id number] Care Team Providers Care Sales Support Rep Name Role Phone Feliciano Uribe MD Primary Care Provider Christina Roe PA-C Unavailable [phone] Christina Roe PA-C Unavailable [phone] Richie Rowell [facility] Unavailable Richie Rowell [facility] Unavailable Zhane Crain MD Unavailable Allergies Active Allergy Reactions Criticality Noted Date Comments Aspirin 11/06/2023 Contraindicated due to hx of gastric bypass Medications Medication Sig Dispensed Refills Start Date End Date Status amoxicillin (AMOXIL) 500 MG capsule TAKE 4 CAPSULES BY MOUTH 1 HOUR BEFORE DENTAL APPOINTMENT FOR 1 DOSE 3 Active atorvastatin (LIPITOR) 10 MG tablet Take 10 mg by mouth at bedtime Active D3-50 1.25 MG (49161 UT) capsule Take 1,250 mcg by mouth once a week Active FLUoxetine (PROZAC) 40 MG capsule Take 40 mg by mouth daily Active levothyroxine (SYNTHROID/LEVOTH ROID) 150 MCG tablet Take 150 mcg by mouth daily Active lisinopril (ZESTRIL) 10 MG tablet Take 10 mg by mouth 2 times daily 4 Active metoprolol tartrate (LOPRESSOR) 25 MG tablet Take 25 mg by mouth 2 times daily 4 Active nitroGLYcerin (NITROSTAT) 0.[address] 0.4 mg under the tongue 2 Active Cyanocobalamin 1000 MCG/ML KIT 1,000 mcg every 30 days Active methocarbamol (ROBAXIN) 500 MG tabletIndications :Neck pain Take 1 tablet (500 mg) by mouth 4 times daily as needed for muscle spasms 10 tablet 4 Active pantoprazole (PROTONIX) 40 MG EC tabletIndications :Temporal arteritis,PMR (polymyalgia rheumatica) (H24) Take 1 tablet (40 mg) by mouth every morning (before breakfast) 90 tablet 4 Active predniSONE (DELTASONE) 10 MG tabletIndications :Temporal arteritis,PMR (polymyalgia rheumatica) (H24) Take 6 tablets (60 mg) by mouth daily for 5 days, THEN 5 tablets (50 mg) daily for 7 days, THEN 4 tablets (40 mg) daily for 7 days, THEN 3.5 tablets (35 mg) daily for 7 days, THEN 3 tablets (30 mg) daily for 7 days, THEN 2.5 tablets (25 mg) daily for 7 days, THEN 2 tablets (20 mg) daily for 7 days, THEN 1.5 tablets (15 mg) daily for 7 days. 181 tablet 4 05/20/20 24 Active predniSONE (DELTASONE) 5 MG tabletIndications :Temporal arteritis,PMR (polymyalgia rheumatica) (H24) Take 2.5 tablets (12.5 mg) by mouth daily for 14 days, THEN 2 tablets (10 mg) daily for 7 days. 49 tablet 4 06/10/20 24 Active predniSONE (DELTASONE) 1 MG tabletIndications :Temporal arteritis,PMR (polymyalgia rheumatica) (H24) Take 9 tablets (9 mg) by mouth daily for 7 days, THEN 8 tablets (8 mg) daily for 7 days, THEN 7 tablets (7 mg) daily for 7 days, THEN 6 tablets (6 mg) daily for 14 days, THEN 5 tablets (5 mg) daily for 14 days, THEN 4 tablets (4 mg) daily for 14 days, THEN 3 tablets (3 mg) daily for 14 days, THEN 2 tablets (2 mg) daily for 14 days, THEN 1 tablet (1 mg) daily for 14 days. 462 tablet 4 09/23/19 25 Active amLODIPine (NORVASC) 5 MG tablet Take 5 mg by mouth daily 4 Active Multiple Vitamin (MULTIVITAMIN ADULT PO) Take 1 tablet by mouth daily Active calcium carbonate (TUMS) 500 MG chewable tablet Take 1 chew tab by mouth daily Active zoledronic acid (RECLAST) 5 MG/100ML SOLN infusion Inject 5 mg into the vein once Every 12 months Active tocilizumab (ACTEMRA) 162 MG/0.9ML subcutaneous injectionIndicati ons:GCA (giant cell arteritis) Inject 0.9 mLs (162 mg) subcutaneously every 7 days. 3.6 mL 5 4 Active sulfamethoxazole- trimethoprim (BACTRIM DS) 800-160 MG tabletIndications :prophylaxis Take 1 tablet by mouth three times a week for 43 days 18 tablet 4 05/13/20 24 tocilizumab (ACTEMRA) 162 MG/0.9ML subcutaneous injectionIndicati ons:GCA (giant cell arteritis) Inject 0.9 mLs (162 mg) subcutaneously once a week Hold for signs of infection, and seek medical attention. 3.6 mL 5 4 05/08/20 24 Discontinue d(Duplicate Therapy (No AVS / No eCancel)) Tocilizumab (ACTEMRA ACTPEN) 162 MG/0.9ML SOAJIndications:G CA (giant cell arteritis) Inject 162 mg subcutaneously every 7 days. 3.6 mL 2 4 05/13/20 24 Discontinue d(Reorder (No AVS)) Tocilizumab (ACTEMRA ACTPEN) 162 MG/0.9ML SOAJIndications:G CA (giant cell arteritis) Inject 162 mg subcutaneously every 7 days. 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 [address] [place] [phone] Adalberto Boles 05/07/2024 8:00 AM CDT Office Visit [facility] - [address] [place] [phone] Saeed Berry MD Arcuate scotoma of both eyes (Primary Dx) 05/07/2024 Travel 05/07/2024 PRE VISIT [facility] - [address] [place] [phone] Saeed Berry MD Previsit 05/06/2024 Orders Only [facility] - [address] 4th [place] [phone] Saeed Berry MD Visual field defect (Primary Dx) 05/06/2024 MyC Medical Advice [address] [place] [phone] Christina Roe PA-C 05/02/2024 MyC Medical Advice [address] 1st [place] [phone] Adalberto Boles 05/02/2024 Telephone [facility] - [address] 4th [place] [phone] Saeed Berry MD 04/23/2024 MyC Medical Advice [address] [place] [phone] Zhane Crain MD 04/22/2024 2:20 PM CDT Ancillary Procedure [facility] [address] [place] [phone] Zhane Crain MD GCA (giant cell arteritis) (H); Pain in right lower leg 04/22/2024 1:15 PM CDT Therapy Visit [facility] Rehabilitation Services [address] [place] [phone] Christina Roe, Mary Felipe, OT Temporal arteritis (H) (Primary Dx); Generalized muscle weakness 04/22/2024 Travel 04/21/2024 MyC Medical Advice [facility] [address] [facility] [address] [place] [phone] Richie Rowell RPH 04/17/2024 12:50 PM CDT Lab [facility] [address] [facility] [address] [place] [phone] GCA (giant cell arteritis) (H); PMR (polymyalgia rheumatica) (H24); Need for hepatitis B screening test 04/17/2024 12:30 PM CDT Office Visit [facility] [address] [facility] [address] [place] [phone] Zhane Crain MD GCA (giant cell arteritis) (H); Pain in right lower leg 04/16/2024 Travel 04/14/2024 10:45 AM CDT Therapy Visit [address] [place] [phone] Kristel Madrid, PT Temporal arteritis (H) (Primary Dx); PMR (polymyalgia rheumatica) (H24); Impaired gait and mobility 04/14/2024 MyC Medical Advice [facility] [address] [facility] 1st [place] [phone] Adalberto Boles 04/14/2024 Travel 04/10/2024 MyC Medical Advice [facility] [address] [facility] [address] [place] [address] Richie Rowell [facility] 04/09/2024 11:45 AM CDT Therapy Visit [address] [place] [phone] Christina Roe PA-C Solie, Jessica, OT Cognitive changes (Primary Dx); Temporal arteritis (H); PMR (polymyalgia rheumatica) (H24); Generalized muscle weakness 04/09/2024 10:30 AM CDT Therapy Visit [address] [place] [phone] Luz Yuan MD Archbold, Katherine Charlotta Beed, PT Temporal arteritis (H) (Primary Dx); PMR (polymyalgia rheumatica) (H24); Impaired gait and mobility 04/09/2024 MyC Medical Advice [facility] [address] [facility] [address] [place] [phone] Richie Rowell RPH 04/09/2024 Travel 04/09/2024 PRE VISIT [address] [phone] Saeed Berry MD 04/08/2024 9:30 AM CDT Virtual Visit [facility] [address] [facility] [address] [place] [phone] Zhane Crain MD Krier, John, [facility] GCA (giant cell arteritis) (H) (Primary Dx); PMR (polymyalgia rheumatica) (H24); Vaccine counseling; Primary hypertension; Hyperlipidemia, unspecified hyperlipidemia type; Anxiety; Depression, unspecified depression type; Hypothyroidism, unspecified type; Takes dietary supplements; Need for hepatitis B screening test 04/08/2024 Telephone [facility] [address] [facility] [address] [place] [address] Zhane Crain MD Prior Auth - Medication (Actemra) 04/02/2024 2:15 PM CDT Therapy Visit [facility] [address] [place] [address] Luz Yuan MD Archbold, Katherine Charlotta Beed, JACOBO Impaired gait and mobility (Primary Dx); Temporal arteritis (H); PMR (polymyalgia rheumatica) (H24) 04/02/2024 Travel 03/28/[address] [phone] Jorge Kelly MD Appointment 03/27/2024 [facility] [address] 9[address] Clin [address] [place] [phone] Gary Hu 03/27/2024 Telephone [facility] [address] [facility] [address] 9[address] Fl Clin [address] [place] [phone] Saeed Berry MD 03/25/2024 3:10 PM CDT Anesthesia Event [facility] [address] [place] [address] Shari Mckeon MD Kalina, Lucas, 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 03/25/2024 2:00 PM CDT - 03/25/2024 3:10 PM CDT Surgery [facility] [address] [place] [address] Richie Hawk DO Bilateral temporal Artery Biopsy 03/25/2024 Ophth Exam [facility] Service Line [address] [place] [phone] Jorge Kelly MD 03/24/2024 Orders Only [facility]ology [facility] [address] [phone] Ashwin Galo MD Temporal arteritis (H) (Primary Dx); GCA (giant cell arteritis) (H) 03/24/2024 Ophth Exam [facility] [address] [place] [phone] Lamont Canales MD 03/23/2024 Travel 03/23/2024 Ophth Exam [facility] [address] [place] [phone] Lamont Canales MD 03/22/2024 8:48 AM CDT - 03/26/2024 6:45 PM CDT Hospital Encounter [facility]A On[facility] [address] [place] [address] Renu, MD Toyin Ferreira Sameh M, MD Davis, Elizabeth M, MD Urinary tract infection without hematuria, site unspecified (Primary Dx); Temporal arteritis (H); PMR (polymyalgia rheumatica) (H24); Decreased vision of right eye; Right temporal headache; Neck pain Discharge Disposition: Home or Self Care 03/22/2024 Ophth Exam [facility] - Eye Care Service Line [facility] [place] [address] Luis Alberto Anderson MD 03/22/2024 Travel 03/20/2024 10:30 AM CDT Office Visit [address] [phone] Christina Roe PA-C Polymyalgia rheumatica (H24) (Primary Dx); On prednisone therapy; Right sided temporal headache 03/20/2024 Travel 03/17/2024 MyC Medical Advice [address] [phone] Christina Roe PA-C 02/15/2024 MyC Medical Advice [address] [phone] Christina Roe PA-C Polymyalgia rheumatica (H24) (Primary Dx) from Last 3 Months Immunizations Name Administration Dates Next Due DT (PEDS <7y) 01/30/1980 Flu, Unspecified 06/21/2020,05/05/2011 [id number] Novel Flu 06/28/2009 Influenza (High Dose) Trival ent,PF (Fluzone) 06/28/2018,05/02/2017,06/05/2016,2013 Influenza (IIV3) PF 05/05/2011 Influenza Vaccine 65+ (Fluzone HD) 06/19/2023,,06/21/2020 Influenza, seasonal, injectable, PF 05/02/2012,0 05/13/2009 Pneumo Conj 13-V (2010&after) 01/12/2015 Pneumococcal 23 valent 11/28/2013,08/27/2007 TD,PF 7+ (Tenivac) 03/10/2005 TDAP (Adacel,Boostrix) 11/21/2021,05/02/2012 Family History Medical History Relation Comments Glaucoma No family hx of Macular Degeneration No family hx of Social History Tobacco Use Types Packs/Day Years Used Date Smoking Tobacco: Never Passive Smoke Exposure: Past Smokeless Tobacco: Never Tobacco Cessation:Counseling Given: Not Answered Alcohol Use Standard Drinks/Week Comments Yes 0 (1 standard drink = 0.6 oz pur e alcohol) occasional wine PHQ-2 Answer Date Recorded PHQ-2 Score 1 03/20/2024 Adolescent Education Answer Date Record ed Getting School Help Needed Not on file 05/31 Sex and Gender Information Value Date Recorded Sex Assigned at Not on file Gender Identity Not on file Sexual Orientation Not on file Last Filed Vital Signs Vital Sign Reading Time Taken Comments Blood Pressure 158/72 04/17/2024 12:17 PM CDT Pulse 64 04/17/2024 12:17 PM CDT Temperature 36.7 ??C (98.1 ??F) 03/26/2024 4:09 PM CD T Respiratory Rate 98 04/17/2024 12:17 PM CDT Oxygen Saturation 96% 03/26/2024 4:09 PM CDT Inhaled Oxygen Concentration - - Weight 69.9 kg (154 lb) 04/17/2024 12:17 PM CDT Height 152.4 cm (5') 03/23/2024 8:57 PM CDT Body Mass Index 30.08 03/23/2024 8:57 PM CDT Plan of Treatment Upcoming Encounters Date Type Department Care Team (Late st Contact Info) Description 05/20/2024 9:30 AM CDT Virtual Visit [facility] [address] [facility] [address] [place] [address] Zhane Crain MD [address] [place] [address] Richie Rowell, [facility] [address] [place], [place] [phone] 07/31/2024 2:00 PM LEGISLATIVE ADVOCATE Office Visit [facility] [address] [facility] [address] [place] [address] Christina Roe PA-C [address] [place] [address] Health Maintenance Due Date Last Done Comments ADVANCE CARE PLANNING 1945 ANNUAL REVIEW OF HM ORDERS 1945 DEXA 1945 ZOSTER IMMUNIZATION (1 of 2) 1965 FALL RISK ASSESSMENT 2011 MEDICARE ANNUAL WELLNESS VISIT 2011 COVID-19 Vaccine (3 - Moderna risk series) 12/10/2020 11/12/2020, 10/15/2020 RSV VACCINE (1 - 1-dose 75+ series) 2021 INFLUENZA VACCINE (#1) 2024 , 07/19/2021, 06/21/2020, Additional history exists TSH W/FREE T4 REFLEX 03/22/2025 03/22/2024 BMP 03/26/2025 03/26/2024, /3 , 03/24/2024, Additional history exists LIPID 04/17/2025 04/17/2024 GLUCOSE 03/26/2027 03/26/2024, 3 , 03/24/2024, Additional history exists DTAP/TDAP/TD IMMUNIZATION (3 - Td or Tdap) 11/22/2031 11/21/2021, 05/02/2012, 03/10/2005 Pneumococcal Vaccine: 65+ Years Completed 01/12/2015, 11/28/2013, 08/27/2007 PHQ-2 (once per calendar year) Completed 03/20/2024 HEPATITIS C SCREENING Completed 04/17/2024 HPV IMMUNIZATION Aged Out No longer e ligible based on patient's age to complete this topic MENINGITIS IMMUNIZATION Aged Out No l onger eligible based on patient's age to complete this topic RSV MONOCLONAL ANTIBODY Aged Out No l onger eligible based on patient's age to complete this topic Procedures Procedure Name Priority Date/Time Associated Diagnosis Comments OCT OPTIC NERVE RNFL SPECTRALIS OU (BOTH EYES) Routine 05/07/2024 8:22 AM CDT GLAUCOMA TOP OU Routine 05/07/2024 8:22 AM CDT US LOWER EXTREMITY VENOUS DUPLEX RIGHT STAT 04/22/2024 2:35 PM CDT GCA (giant cell arteritis) (H) Pain in right lower leg QUANTIFERON-TB GOLD PLUS Routine 04/17/2024 1:11 PM CDT GCA (giant cell arteritis) (H) PMR (polymyalgia rheumatica) (H24) QUANTIFERON TB GOLD PLUS Routine 04/17/2024 1:11 PM CDT GCA (giant cell arteritis) (H) PMR (polymyalgia rheumatica) (H24) QUANTIFERON TB GOLD PLUS PURPLE TUBE Routine 04/17/2024 1:11 PM CDT GCA (giant cell arteritis) (H) PMR (polymyalgia rheumatica) (H24) QUANTIFERON TB GOLD PLUS YELLOW TUBE Routine 04/17/2024 1:11 PM CDT GCA (giant cell arteritis) (H) PMR (polymyalgia rheumatica) (H24) QUANTIFERON TB GOLD PLUS GREEN TUBE Routine 04/17/2024 1:11 PM CDT GCA (giant cell arteritis) (H) PMR (polymyalgia rheumatica) (H24) QUANTIFERON TB GOLD PLUS PLUNKETT TUBE Routine 04/17/2024 1:11 PM CDT GCA (giant cell arteritis) (H) PMR (polymyalgia rheumatica) (H24) LIPID REFLEX TO DIRECT LDL PANEL Routine 04/17/2024 1:11 PM CDT GCA (giant cell arteritis) (H) CBC WITH PLATELETS Routine 04/17/2024 1: 11 PM CDT GCA (giant cell arteritis) (H) CREATININE Routine 04/17/2024 1:11 PM CDT GCA (giant cell arteritis) (H) AST Routine 04/17/2024 1:11 PM CDT GCA (giant cell arteritis) (H) ALT Routine 04/17/2024 1:11 PM CDT GCA (giant cell arteritis) (H) CRP INFLAMMATION Routine 04/17/2024 1:11 PM CDT GCA (giant cell arteritis) (H) ERYTHROCYTE SEDIMENTATION RATE AUTO Routine 04/17/2024 1:11 PM CDT GCA (giant cell arteritis) (H) HEPATITIS B SURFACE ANTIGEN Routine 04/17/2024 1:11 PM CDT GCA (giant cell arteritis) (H) PMR (polymyalgia rheumatica) (H24) Need for hepatitis B screening test HEPATITIS B CORE ANTIBODY Routine 04/17/2024 1:11 PM CDT GCA (giant cell arteritis) (H) PMR (polymyalgia rheumatica) (H24) Need for hepatitis B screening test HEPATITIS C ANTIBODY Routine 04/17/2024 1:11 PM CDT GCA (giant cell arteritis) (H) PMR (polymyalgia rheumatica) (H24) BASIC METABOLIC PANEL Routine 03/26/2024 6:14 AM CDT CBC WITH PLATELETS Routine 03/26/2024 6: 14 AM CDT CRP INFLAMMATION Routine 03/26/2024 6:14 AM CDT ERYTHROCYTE SEDIMENTATION RATE AUTO Routine 03/26/2024 6:14 AM CDT SURGICAL PATHOLOGY EXAM Routine 03/25/20 24 4:29 PM CDT ANE AIRWAY ETT PERFORMABLE Routine 03/25/2024 3:23 PM CDT TEMPORAL ARTERY LIGATN OR BX 03/25/2024 2:53 PM CDT Sudden visual loss of right eye CBC WITH PLATELETS & DIFFERENTIAL Routine 03/25/2024 11:38 AM CDT CBC WITH PLATELETS AND DIFFERENTIAL Routine 03/25/2024 11:38 AM CDT BASIC METABOLIC PANEL Routine 03/25/2024 5:54 AM CDT CRP INFLAMMATION Routine 03/25/2024 5:54 AM CDT ERYTHROCYTE SEDIMENTATION RATE AUTO Routine 03/25/2024 5:54 AM CDT CBC WITH PLATELETS Routine 03/24/2024 5: 30 PM CDT US TEMPORAL ARTERIES DUPLEX Routine 03/24/2024 3:02 PM CDT BASIC METABOLIC PANEL Routine 03/24/2024 5:09 AM CDT CBC WITH PLATELETS Routine 03/24/2024 5: 09 AM CDT CRP INFLAMMATION Routine 03/24/2024 5:09 AM CDT ERYTHROCYTE SEDIMENTATION RATE AUTO Routine 03/24/2024 5:09 AM CDT INTERLEUKIN 6 BLOOD STAT 03/23/2024 1 1:04 AM CDT CTA CHEST WITH CONTRAST STAT 03/23/20 9:01 AM CDT ECHO COMPLETE WITH CONTRAST Routine 03/23/2024 8:14 AM CDT CBC WITH PLATELETS STAT 03/23/2024 6: 28 AM CDT BASIC METABOLIC PANEL STAT 03/23/2024 6:28 AM CDT CRP INFLAMMATION STAT 03/23/2024 6:28 AM CDT ERYTHROCYTE SEDIMENTATION RATE AUTO STAT 03/23/2024 6:28 AM CDT CTV HEAD NECK W CONTRAST STAT 03/22/2024 6:23 PM CDT US LOWER EXTREMITY VENOUS DUPLEX RIGHT STAT 03/22/2024 6:05 PM CDT MRA NECK (CAROTIDS) W/O & W CONTRAST STAT 03/22/2024 4:42 PM CDT MRA BRAIN (LYTTON OF GREGORIO) W/O CONTRAST STAT 03/22/2024 4:41 PM CDT MR BRAIN AND ORBITS W/O & W CONTRAST STAT 03/22/2024 4:41 PM CDT URINE CULTURE STAT 03/22/2024 9:44 AM CDT ROUTINE UA WITH MICROSCOPIC REFLEX TO CULTURE STAT 03/22/2024 9:44 AM CDT LACTIC ACID WHOLE BLOOD WITH 1X REPEAT IN 2 HR WHEN >2 STAT 03/22/2024 9:27 AM CDT ERYTHROCYTE SEDIMENTATION RATE AUTO STAT 03/22/2024 9:27 AM CDT EKG 12-LEAD, TRACING ONLY STAT 03/22/2024 9:16 AM CDT CBC WITH PLATELETS & DIFFERENTIAL STAT 03/22/2024 8:45 AM CDT CBC WITH PLATELETS AND DIFFERENTIAL STAT 03/22/2024 8:45 AM CDT TSH STAT 03/22/2024 8:45 AM CDT NT PROBNP INPATIENT STAT 03/22/2024 8 :45 AM CDT TROPONIN T, HIGH SENSITIVITY STAT 03/22/2024 8:45 AM CDT MAGNESIUM STAT 03/22/2024 8:45 AM CDT COMPREHENSIVE METABOLIC PANEL STAT 03/22/2024 8:45 AM CDT CRP INFLAMMATION STAT 03/22/2024 8:45 AM CDT INR STAT 03/22/2024 8:45 AM CDT PARTIAL THROMBOPLASTIN TIME STAT 03/22/2024 8:45 AM CDT EXTRA PURPLE TOP TUBE STAT 03/22/2024 8:45 AM CDT EXTRA GREEN TOP (LITHIUM HEPARIN) TUBE STAT 03/22/2024 8:45 AM CDT EXTRA RED TOP TUBE STAT 03/22/2024 8: 45 AM CDT EXTRA BLUE TOP TUBE STAT 03/22/2024 8 :45 AM CDT EXTRA TUBE STAT 03/22/2024 8:45 AM CDT from Last 3 Months Results * OCT Optic Nerve RNFL Spectralis OU (both eyes) (05/07/2024 8:22 AM CDT) Narrative Saeed Berry MD - 05/07/2024 8:22 AM CDT Right Eye Reliability of the test: Good . Test Findings: Normal . Interpretation: Normal . Plan: Monitor . Interval: Initial . Left Eye Reliability of the test: Good . Test Findings: Normal . Interpretation: Normal . Plan: Monitor . Interval: Initial . Saeed Berry MD OPHTHALMOLOGY * Glaucoma Top OU (05/07/2024 8:22 AM CDT) Narrative Saeed Berry MD - 05/07/2024 8:22 AM CDT Performed by: BD . Good fix BE, not dilated. Right Eye Reliability of the test: Good . Findings: Arcuate scotoma . Interpretation: Abnormal . Interval: Initial . Left Eye Reliability of the test: Good . Findings: Arcuate scotoma . Interpretation: Abnormal . Interval: Initial . Saeed Berry MD OPHTHALMOLOGY * US Lower Extremity Venous Duplex Right (04/22/2024 2:35 PM CDT) Only the most recent of2 resultswithin the time period is included. Anatomical Region Laterality Modality Lower Extremity Ultrasound 04/22/2024 2:35 PM CDT Impressions 04/22/2024 2:41 PM CDT IMPRESSION: 1. ??No deep venous thrombosis in the right lower extremity. Narrative 04/22/2024 2:41 PM CDT EXAM: US LOWER EXTREMITY VENOUS DUPLEX RIGHT LOCATION: [facility] DATE: 04/22/2024 INDICATION: ??GCA (giant cell arteritis) (H), Pain in right lower leg COMPARISON: None. TECHNIQUE: Venous Duplex ultrasound of the right lower extremity with and without compression, augmentation and duplex. Color flow and spectral Doppler with waveform analysis performed. FINDINGS: Exam includes the common femoral, femoral, popliteal, and contralateral common femoral veins as well as segmentally visualized deep calf veins and greater saphenous vein. RIGHT: No deep vein thrombosis. No superficial thrombophlebitis. No popliteal cyst. For comparison the left common femoral vein was evaluated and was unremarkable. Procedure Note Richie Corea MD - 04/22/2024 EXAM: US LOWER EXTREMITY VENOUS DUPLEX RIGHT LOCATION: [facility] DATE: 04/22/2024 INDICATION: GCA (giant cell arteritis) (H), Pain in right lower leg COMPARISON: None. TECHNIQUE: Venous Duplex ultrasound of the right lower extremity with andwithout compression, augmentation and duplex. Color flow and spectralDoppler with waveform analysis performed. FINDINGS: Exam includes the common femoral, femoral, popliteal, andcontralateral common femoral veins as well as segmentally visualized deepcalf veins and greater saphenous vein. RIGHT: No deep vein thrombosis. No superficial thrombophlebitis. Nopopliteal cyst. For comparison the left common femoral vein was evaluatedand was unremarkable. IMPRESSION: 1. No deep venous thrombosis in the right lower extremity. Zhane Crain MD [facility] ORDERABLES * Quantiferon TB Gold Plus (04/17/2024 1:11 PM CDT) Quantiferon-TB Gold Plus Negative Negative 04/18/2024 5:06 PM CDT SPECIALTY CORE/PROT/END O Comment: No interferon gamma response to M.tuberculosis antigens was detected. Infection with M.tuberculosis is unlikely, however a single negative result does not exclude infection. In patients at high risk for infection, a second test should be considered in accordance with the 2017 ATS/IDSA/CDC Clinical Pract ice Guidelines for Diagnosis of Tuberculosis in Adults and Children TB1 Ag minus Nil Value 0.00 IU/mL 04/18/2024 5:06 PM CDT SPECIALTY CORE/PROT/END O TB2 Ag minus Nil Value 0.00 IU/mL 04/18/2024 5:06 PM CDT SPECIALTY CORE/PROT/END O Mitogen minus Nil Result 2.03 IU/mL 04/18/2024 5:06 PM CDT UM SPECIALTY CORE/PROT/END O Nil Result 0.00 IU/mL 04/18/2024 5:06 PM CDT SPECIALTY CORE/PROT/END O Blood BLOOD SPECIMEN / Unknown Venipuncture / Unknown 04/17/2024 1:11 PM CDT 04/17/2024 1:24 PM CDT Zhane Crain MD LAB - MICRO GENERAL ORDERABLES UM SPECIALTY CORE/PROT/ENDO UM Specialty Core/Prot/Endo [address] [facility] J Building, [address] [place] [address] * Quantiferon TB Gold Plus Purple Tube (04/17/2024 1:11 PM CDT) Pathologist [facility] Quantiferon Mitogen 2.03 IU/mL 04/18/2024 4:17 PM CDT SPECIALTY CORE/PROT/ENDO Blood BLOOD SPECIMEN / Unknown Venipuncture / Unknown 04/17/2024 1:11 PM CDT 04/17/2024 1:24 PM CDT Zhane Crain MD LAB - MICRO GENERAL ORDERABLES UM SPECIALTY CORE/PROT/ENDO UM Specialty Core/Prot/Endo [address] [facility] [address] [facility], Room [address] * Quantiferon TB Gold Plus Yellow Tube (04/17/2024 1:11 PM CDT) Quantiferon TB2 Tube 0.00 04/18/2024 4:18 PM CDT UM SPECIALTY CORE/PROT/ENDO Blood BLOOD SPECIMEN / Unknown Venipuncture / Unknown 04/17/2024 1:11 PM CDT 04/17/2024 1:24 PM CDT Zhane Crain MD LAB - MICRO GENERAL ORDERABLES UM SPECIALTY CORE/PROT/ENDO UM Specialty Core/Prot/Endo [address] [facility] Unit [facility], Room [address] * Quantiferon TB Gold Plus Green Tube (04/17/2024 1:11 PM CDT) Quantiferon TB1 Tube 0.00 IU/mL 04/18/2024 4:18 PM CDT UM SPECIALTY CORE/PROT/ENDO Blood BLOOD SPECIMEN / Unknown Venipuncture / Unknown 04/17/2024 1:11 PM CDT 04/17/2024 1:24 PM CDT Zhnae Crain MD LAB - MICRO GENERAL ORDERABLES UM SPECIALTY CORE/PROT/ENDO UM Specialty Core/Prot/Endo [address] [facility] [address] Building, [address] * Quantiferon TB Gold Plus [place]ett Tube (04/17/2024 1:11 PM CDT) Quantiferon Nil Tube 0.00 IU/mL 04/18/2024 4:18 PM CDT SPECIALTY CORE/PROT/ENDO Blood BLOOD SPECIMEN / Unknown Venipuncture / Unknown 04/17/2024 1:11 PM CDT 04/17/2024 1:24 PM CDT Zhane Crain MD LAB - MICRO GENERAL ORDERABLES UM SPECIALTY CORE/PROT/ENDO UM Specialty Core/Prot/Endo [address] Building, [address] [place] [address] * Lipid panel reflex to direct LDL Fasting (04/17/2024 1:11 PM CDT) Cholesterol 182 <200 mg/dL 04/17/2024 7:43 PM CDT [facility] Triglycerides 62 <150 mg/dL 04/17/2024 7:43 PM CDT [facility] Direct Measure HDL 112 >=50 mg/dL 2023 7:43 PM CDT [facility] LDL Cholesterol Calculated 58 <=100 mg/dL 04/17/2024 7:43 PM CDT [facility] Non HDL Cholesterol 70 <130 mg/dL 04/17/2024 7:43 PM CDT [facility] Patient Fasting > 8hrs? No 04/17/2024 7:43 PM CDT [facility] Blood STRUCTURE OF RIGHT UPPER LIMB / Unknown Venipuncture / Unknown 04/17/2024 1:11 PM CDT 04/17/2024 1:24 PM CDT Narrative [facility] - 04/17/2024 7:43 PM CDT Cholesterol Desirable: ??<200 mg/dL Triglycerides Normal: ??Less than 150 mg/dL Borderline High: ??150-199 mg/dL High: ??200-499 mg/dL Very High: ??Greater than or equal to 500 mg/dL Direct Measure HDL Female: ??Greater than or equal to 50 mg/dL Male: ??Greater than or equal to 40 mg/dL LDL Cholesterol Desirable: ??<100mg/dL Above Desirable: ??100-129 mg/dL Borderline High: ??130-159 mg/dL High: ??160-189 mg/dL Very High: ??>= 190 mg/dL Non HDL Cholesterol Desirable: ??130 mg/dL Above Desirable: ??130-159 mg/dL Borderline High: ??160-189 mg/dL High: ??190-219 mg/dL Very High: ??Greater than or equal to 220 mg/dL Zhane Crain MD LAB - BLOOD ORDERABLES Performing Organization Address City/[facility] Co de Phone Number LABORATORY [facility] [place] [facility] [address] [facility], [address] [phone] * Hepatitis C antibody (04/17/2024 1:11 PM CDT) Hepatitis C Antibody Nonreactive Nonreactive 04/17/2024 8:05 PM CDT U LABORATORY Comment:A nonreactive screen ing test result does not exclude the possibility of exposure to or infection with HCV. Nonreactive screening test results in individuals with prior exposure to HCV may be due to antibody levels below the limit of detection of this assay or lack of reactivity to the HCV antigens used in this assay. Patients with recent HCV infections (<3 months from time of exposure) may have false- negative HCV antibody results due to the time needed for seroconversion (average of 8 to 9 weeks). Blood STRUCTURE OF RIGHT UPPER LIMB / Unknown Venipuncture / Unknown 04/17/2024 1:11 PM CDT 04/17/2024 1:24 PM CDT Zhane Crain MD LAB - BLOOD ORDERABLES Performing Organization Address [facility]/ZIP Co de Phone Number LABORATORY [facility] [place] [facility] [address] [facility], Room [address] [place] [phone] * Hepatitis B surface antigen (04/17/2024 1:11 PM CDT) Hepatitis B Surface Antigen Nonreactive Nonreactive 04/17/2024 8:05 PM CDT [facility] Blood STRUCTURE OF RIGHT UPPER LIMB / Unknown Venipuncture / Unknown 04/17/2024 1:11 PM CDT 04/17/2024 1:24 PM CDT Zhane Crain MD LAB - BLOOD ORDERABLES U LABORATORY [facility] [place] [facility] [address] [facility], [address] [phone] * Hepatitis B core antibody (04/17/2024 1:11 PM CDT) Hepatitis B Core Antibody Total Nonreactive Nonreactive 04/17/2024 8:05 PM CDT [facility] Comment:Nonreactive hepatiti s B core antibody test results indicate the absence of exposure to hepatitis B virus and no evidence of recent, past/resolved, or chronic hepatitis B. Blood STRUCTURE OF RIGHT UPPER LIMB / Unknown Venipuncture / Unknown 04/17/2024 1:11 PM CDT 04/17/2024 1:24 PM CDT Zhane Crain MD LAB - BLOOD ORDERABLES LABORATORY [facility] [place] [facility] [address] [facility], [address] [phone] * Erythrocyte sedimentation rate auto (04/17/2024 1:11 PM CDT) Only the most recent of6 resultswithin the time period is included. Erythrocyte Sedimentation Rate 5 0 - 30 mm/hr 04/17/2024 1:43 PM CDT [facility] Blood STRUCTURE OF RIGHT UPPER LIMB / Unknown Venipuncture / Unknown 04/17/2024 1:11 PM CDT 04/17/2024 1:24 PM CDT Zhane Crain MD LAB - BLOOD ORDERABLES [facility] [address] [address], [place] * CRP inflammation (04/17/2024 1:11 PM CDT) Only the most recent of6 resultswithin the time period is included. CRP Inflammation <3.00 <5.00 mg/L 04/17/20 7:43 PM CDT [facility] Blood STRUCTURE OF RIGHT UPPER LIMB / Unknown Venipuncture / Unknown 04/17/2024 1:11 PM CDT 04/17/2024 1:24 PM CDT Zhane Crain MD LAB - BLOOD ORDERABLES [facility] [place] [facility] [address] [facility], [address] [phone] * Creatinine (04/17/2024 1:11 PM CDT) Pathologist [facility] Creatinine 0.70 0.51 - 0.95 mg/dL 04/17/2024 7:43 PM CDT [facility] GFR Estimate 88 >60 mL/min/1.7 3m2 04/17/2024 7:43 PM CDT [facility] Comment:eGFR calculated 2020 CKD-EPI equation. Blood STRUCTURE OF RIGHT UPPER LIMB / Unknown Venipuncture / Unknown 04/17/2024 1:11 PM CDT 04/17/2024 1:24 PM CDT Zhane Crain MD LAB - BLOOD ORDERABLES [facility] [place] [facility] [address] [facility], [address] [phone] * AST (04/17/2024 1:11 PM CDT) Pathologist [facility] AST 42 0 - 45 U/L 04/17/2024 7:4 3 PM CDT [facility] Blood STRUCTURE OF RIGHT UPPER LIMB / Unknown Venipuncture / Unknown 04/17/2024 1:11 PM CDT 04/17/2024 1:24 PM CDT Zhane Crain MD LAB - BLOOD ORDERABLES U LABORATORY [facility] [place] [facility] [address] [facility], [address] [id number] * (ABNORMAL) ALT (04/17/2024 1:11 PM CDT) Pathologist [facility] ALT 101(H) 0 - 50 U/L 04/17/2024 7:43 PM CDT [facility] Blood STRUCTURE OF RIGHT UPPER LIMB / Unknown Venipuncture / Unknown 04/17/2024 1:11 PM CDT 04/17/2024 1:24 PM CDT Zhane Crain MD LAB - BLOOD ORDERABLES Performing Organization Address City/[facility]/ZIP Co de Phone Number U LABORATORY [facility] [place] [facility] [address] [facility], [address] [id number] * (ABNORMAL) CBC with platelets (04/17/2024 1:11 PM CDT) Only the most recent of5 resultswithin the time period is included. [facility] WBC Count 6.2 4.0 - 11.0 10e3/uL 04/17/2024 1:34 PM CDT [facility] RBC Count 4.05 3.80 - 5.20 10e6/uL 04/17/2024 1:34 PM CDT [facility] Hemoglobin 12.3 11.7 - 15.7 g/dL 04/17/2024 1:34 PM CDT [facility] Hematocrit 37.9 35.0 - 47.0 % 04/17/2024 1:34 PM CDT [facility] MCV 94 78 - 100 fL 04/17/2024 1:34 PM CDT [facility] MCH 30.4 26.5 - 33.0 pg 04/17/2024 1:34 PM CDT [facility] MCHC 32.5 31.5 - 36.5 g/dL 04/17/2024 1:34 PM CDT [facility] RDW 16.5(H) 10.0 - 15.0 % 04/17/2024 1:34 PM CDT [facility] Platelet Count 150 150 - 450 10e3/uL 04/17/2024 1:34 PM CDT [facility] Blood STRUCTURE OF RIGHT UPPER LIMB / Unknown Venipuncture / Unknown 04/17/2024 1:11 PM CDT 04/17/2024 1:24 PM CDT Zhane Crain MD LAB - BLOOD ORDERABLES [facility] [address] * (ABNORMAL) Basic metabolic panel (03/26/2024 6:14 AM CDT) Only the most recent of4 resultswithin the time period is included. Sodium 138 135 - 145 mmol/L 03/26/2024 8:30 AM CDT [facility] Potassium 4.1 3.4 - 5.3 mmol/L 03/26/2024 8:30 AM CDT [facility] Chloride 107 98 - 107 mmol/L 03/26/2024 8:30 AM CDT [facility] Carbon Dioxide (CO2) 20(L) 22 - 29 mmol/L 03/26/2024 8:30 AM CDT [facility] Anion Gap 11 7 - 15 mmol/L 03/26/2024 8:30 AM CDT [facility] Urea Nitrogen 18.0 8.0 - 23.0 mg/dL 03/26/2024 8:30 AM CDT [facility] Creatinine 0.68 0.51 - 0.95 mg/dL 03/26/2024 8:30 AM CDT [facility] GFR Estimate 89 >60 mL/min/1.7 3m2 03/26/2024 8:30 AM CDT [facility] Comment:eGFR calculated usin 2020 CKD-EPI equation. Calcium 8.3(L) 8.8 - 10.4 mg/dL 03/26/2024 8:30 AM CDT [facility] Comment:Reference intervals for this test were updated on 03/11/2024 to reflect our healthy population more accurately. There may be differences in the flagging of prior results with similar values performed with this method. Those prior results can be interpreted in the context of the updated reference intervals. Glucose 123(H) 70 - 99 mg/dL 03/26/2024 8:30 AM CDT [facility] Blood STRUCTURE OF LEFT HAND / Unknown Venipuncture / Unknown 03/26/2024 6:14 AM CDT 03/26/2024 6:23 AM CDT Kristel Acosta MD LAB - BLOOD ORDERABL ES [facility] Core Lab [address] [facility], [address] [place] [address] * Surgical Pathology Exam (03/25/2024 4:29 PM CDT) Case Report Surgical Pathology Report ? Case: [id number] ? Authorizing Provider: ??Richie Dominguez ? Collected: ? 03/25/2024 04:29 PM ? Nikos, DO ? Ordering Location: ? [facility] ? Received: ?03/25/2024 05:08 PM ? Pathologist: ? Mayra Galan MD ? Specimens: ?? A) - Artery, Temporal, Left, Left Temporal Artery Biopsy ? B) - Artery, Temporal, Right, Right Temporal Artery Biopsy ? 03/26/2024 9:50 AM CDT SPECIALTY LABS Final Diagnosis A. Temporal artery, left, biopsy: No evidence of giant cell arteritis. Mild medial calcific sclerosis. B. Temporal artery, right, biopsy: No evidence of giant cell arteritis. 03/26/2024 9:50 AM T SPECIALTY LABS Clinical Information The patient is a 78 year old female with a history of polymyalgia rheumatica and acute ischemic optic neuropathy right eye. She undergoes bilateral temporal artery biopsy to evaluate for giant cell arteritis. 03/26/2024 9:50 AM CDT SPECIALTY LABS Gross Description A(1). Artery, Temporal, Left, Left Temporal Artery Biopsy: The specimen is received in formalin with proper patient identification labeled left temporal artery biopsy. The specimen consists of a single, cylindrical piece of red soft tissue, consistent with a portion of great vessel, measuring 1.9 cm in length and 0.3 cm in diameter. It is entirely submitted, intact, in cassette A1 for sectioning at histology. B(2). Artery, Temporal, Right, Right Temporal Artery Biopsy: The specimen is received in formalin with proper patient identification labeled right temporal artery biopsy. The specimen consists of a cylindrical piece of grossman-red soft tissue, consistent with a portion of great vessel, measuring 0.9 cm in length and 0.2 cm in diameter. Additionally in the container is a 0.9 cm piece of red soft tissue. The specimen is entirely submitted, intact, in cassette B1 for sectioning at histology. 03/26/2024 9:50 AM CDT [facility] Microscopic Description A. The tissue consists of artery with patent lumen and mild to moderate intimal hyperplasia. There is patchy calcification at the levels of the internal elastic lamina with disruption and reduplication of the lamina which is not associated with inflammation or scarring. No inflammation or scarring is identified within the vessel. B. The tissue consists of cross sections and longitudinal sections of artery with patent lumen and mild to moderate intimal hyperplasia. The internal elastic lamina is largely intact on elastic stain. No inflammation or scarring is identified within the vessel. 03/26/2024 9:50 AM CDT SPECIAL[facility] LABS Performing Labs The technical component of this testing was completed at [facility]. Stain controls for all stains resulted within this report have been reviewed and show appropriate reactivity. 03/26/2024 9:50 AM CDT [facility] Case Images 03/26/2024 9:50 AM CDT [facility] LAB[facility] Biopsy STRUCTURE OF SUPERFICIAL TEMPORAL ARTERY / Unknown 03/25/2024 4:29 PM CDT 03/25/2024 5:08 PM CDT Specimen from unspecified body site obtained by biopsy (specimen) STRUCTURE OF SUPERFICIAL TEMPORAL ARTERY / Unknown 03/25/2024 4:33 PM CDT 03/25/2024 5:08 PM CDT Richie Hawk DO LAB - BE [facility] Specialty Lab [address] [facility], [address] [phone] Core Lab [address] [facility], [address] [phone] * ANE AIRWAY ETT PERFORMABLE (03/25/2024 3:23 PM CDT) Narrative Saeed Yuen RN - 03/25/2024 3:23 PM CDT Saeed Yuen RN ? 03/25/2024 ??3:53 PM Airway ? Patient location during procedure: OR ? Procedure Start/Stop Times: 03/25/2024 3:23 PM Staff - ? COLD WORKING SUPERVISOR: Margarita Gracia 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 ? Other Anesthesia Staff: Saeed Yuen RN ? Performed By: COLD WORKING SUPERVISOR and SRNA Consent for Airway ? Urgency: elective Indications and Patient Condition ? Indications for airway management: whitney-procedural ? Induction type:intravenous ? Mask difficulty assessment: 1 - vent by mask Final Airway Details ? Final airway type: endotracheal airway ? Successful airway: ETT - single Endotracheal Airway Details ? ETT size (mm): 7.0 ? Cuffed: yes ? Cuff volume (mL): 6 ? Successful intubation technique: direct laryngoscopy ? DL Blade Type: Frausto 2 ? Grade View of Cords: 1 ? Adjucts: stylet ? Position: Right ? Measured from: lips ? Secured at (cm): 22 ? Bite block used: None Post intubation assessment ? Placement verified by: capnometry, equal breath sounds and chest rise ? Number of attempts at approach: 1 ? Number of other approaches attempted: 0 ? Secured with: tape ? Ease of procedure: easy ? Dentition: Intact Medication(s) Administered propofol (DIPRIVAN) injection 10 mg/mL vial - Intravenous 150 mg - 03/25/2024 3:23:00 PM rocuronium (ZEMURON) 10 mg/mL injection - Intravenous 50 mg - 03/25/2024 3:23:00 PM Medication Administration Time: 03/25/2024 3:23 PM Shari Mckeon MD [facility] ANESTHESIA * (ABNORMAL) CBC with platelets and differential (03/25/2024 11:38 AM CDT) Only the most recent of2 resultswithin the time period is included. WBC Count 11.3(H) 4.0 - 11.0 10e3/uL 03/25/2024 11:55 AM CDT [facility] RBC Count 4.23 3.80 - 5.20 10e6/uL 03/25/2024 11:55 AM CDT [facility] Hemoglobin 12.8 11.7 - 15.7 g/dL 03/25/2024 11:55 AM CDT [facility] Hematocrit 38.7 35.0 - 47.0 % 03/25/2024 11:55 AM CDT [facility] MCV 92 78 - 100 fL 03/25/2024 11:55 AM CDT [facility] MCH 30.3 26.5 - 33.0 pg 03/25/2024 11:55 AM CDT [facility] MCHC 33.1 31.5 - 36.5 g/dL 03/25/2024 11:55 AM CDT [facility] RDW 15.3(H) 10.0 - 15.0 % 03/25/2024 11:55 AM CDT [facility] Platelet Count 195 150 - 450 10e3/uL 03/25/2024 11:55 AM CDT [facility] % Neutrophils 92 % 03/25/2024 11:55 AM CDT [facility] % Lymphocytes 3 % 03/25/2024 11:55 AM CDT [facility] % Monocytes 3 % 03/25/2024 11:55 AM CDT [facility] % Eosinophils 0 % 03/25/2024 11:55 AM CDT [facility] % Basophils 0 % 03/25/2024 11:55 AM CDT [facility] % Immature Granulocytes 2 % 03/25/2024 11:55 AM CDT [facility] NRBCs per 100 WBC 0 <1 /100 024 11:55 AM CDT [facility] Absolute Neutrophils 10.4(H) 1.6 - 8.3 10e3/uL 03/25/2024 11:55 AM CDT [facility] Absolute Lymphocytes 0.4(L) 0.8 - 5.3 10e3/uL 03/25/2024 11:55 AM CDT [facility] Absolute Monocytes 0.3 0.0 - 1.3 10e3/uL 03/25/2024 11:55 AM CDT [facility] Absolute Eosinophils 0.0 0.0 - 0.7 10e3/uL 03/25/2024 11:55 AM CDT [facility] Absolute Basophils 0.0 0.0 - 0.2 10e3/uL 03/25/2024 11:55 AM CDT [facility] Absolute Immature Granulocytes 0.2 <=0.4 10e3/uL 03/25/2024 11:55 AM CDT [facility] Absolute NRBCs 0.0 10e3/uL 03/25/2024 11:55 AM CDT [facility] Blood STRUCTURE OF LEFT UPPER LIMB / Unknown Venipuncture / Unknown 03/25/2024 11:38 AM CDT 03/25/2024 11:44 AM CDT Corinna Eller MD LAB - BLO OD ORDERABLES [facility] [place] [facility] [address] [facility], [address] [phone] * US Temporal Arteries Duplex (03/24/2024 3:02 PM CDT) Anatomical Region Laterality Modality Vascular, Head Ultrasound Impressions 03/24/2024 3:06 PM CDT IMPRESSION: No halo sign to suggest active inflammation. Right parietal branch 0.3 mm intima medial thickness. Otherwise negative study.. Cristina?reina VS , Tessa A, Rangel S, Jaswant A, [place]. Ultrasound cut-off values for intima-media thickness of temporal, facial and axillary arteries in giant cell arteritis. Rheumatology 2017;56:1479?83. IMT CUT-OFF VALUES ? COMMON TEMPORAL ARTERY: 0.42 mm ? FRONTAL BRANCH: 0.34 mm ? PARIETAL BRANCH: 0.29 mm MICHAEL SOLIS MD Narrative 03/24/2024 3:06 PM CDT ULTRASOUND TEMPORAL ARTERIES DUPLEX 03/24/2024 3:02 PM CLINICAL HISTORY: bilateral temporal artery ??for R vision loss COMPARISONS: None available. ORDERING PROVIDER: KRISTEL ACOSTA TECHNIQUE: Grayscale, color Doppler, Doppler waveform evaluation was performed through bilateral central temporal arteries, frontal branches, and parietal branches. Intima-media thicknesses (IMT) obtained. Multiple cine clips were stored. FINDINGS: RIGHT: No halo sign. ? COMMON TEMPORAL ARTERY: 121/13 cm/s, 0.3 mm IMT ? FRONTAL BRANCH: 16/0 cm/s, 0.2 mm IMT ? PARIETAL BRANCH: 22/0 cm/s, 0.3 mm IMT LEFT: No halo sign. ? COMMON TEMPORAL ARTERY: 127/15 cm/s, 0.3 mm IMT ? FRONTAL BRANCH: 86/11 cm/s, 0.2 mm IMT ? PARIETAL BRANCH: 83/9 cm/s, 0.2 mm IMT Procedure Note Michael Solis MD - 03/24/2024 ULTRASOUND TEMPORAL ARTERIES DUPLEX 03/24/2024 3:02 PM CLINICAL HISTORY: bilateral temporal artery for R vision loss COMPARISONS: None available. ORDERING PROVIDER: KRISTEL ACOSTA TECHNIQUE: Grayscale, color Doppler, Doppler waveform evaluation was performed through bilateral central temporal arteries, frontal branches, and parietal branches. Intima-media thicknesses (IMT) obtained. Multiple cine clips were stored. FINDINGS: RIGHT: No halo sign. COMMON TEMPORAL ARTERY: 121/13 cm/s, 0.3 mm IMT FRONTAL BRANCH: 16/0 cm/s, 0.2 mm IMT PARIETAL BRANCH: 22/0 cm/s, 0.3 mm IMT LEFT: No halo sign. COMMON TEMPORAL ARTERY: 127/15 cm/s, 0.3 mm IMT FRONTAL BRANCH: 86/11 cm/s, 0.2 mm IMT PARIETAL BRANCH: 83/9 cm/s, 0.2 mm IMT IMPRESSION: No halo sign to suggest active inflammation. Right parietal branch 0.3 mm intima medial thickness. Otherwise negative study.. Cristina?reina VS , Tessa A, Rangel S, Jaswant A, [place]. Ultrasound cut-off values for intima-media thickness of temporal, facial and axillary arteries in giant cell arteritis. Rheumatology 2017;56:1479?83. IMT CUT-OFF VALUES COMMON TEMPORAL ARTERY: 0.42 mm FRONTAL BRANCH: 0.34 mm PARIETAL BRANCH: 0.29 mm MICHAEL SOLIS MD Kristel Acosta MD [facility] ORDERABLES * Interleukin 6 Blood (03/23/2024 11:04 AM CDT) Interleukin 6 Blood <0.70 <3.01 pg/mL LICHA 03/24/2024 2:03 PM CDT [facility] Blood STRUCTURE OF LEFT UPPER LIMB / Unknown Venipuncture / Unknown 03/23/2024 11:04 AM CDT 03/23/2024 11:14 AM CDT Narrative [facility] - 03/24/2024 2:03 PM CDT This test has been validated by the lab and is performed according to CLIA regulations and standards. It ??has not been FDA approved. The results are to be used for research purposes or in attempts to ?? understand the pathophysiology of immune, infectious, or inflammatory disorders and not intended as the sole means for clinical diagnosis or patient management.

Assayed at [facility], [address] [place] [address], [address] [place] [address] Margarita Crockett MD LAB - BLOOD ORDERABL ES [facility] [address] [place] [address] Building Room [address] [place] [address] * CTA Chest with Contrast (03/23/2024 9:01 AM CDT) Anatomical Region Laterality Modality Chest, SUBRAD IR PROCEDURE, P CT CTA, RAD CT Computed Tomography Impressions 03/23/2024 10:45 AM CDT Impression: Unremarkable CTA of the chest. No findings to suggest giant cell arteritis. I have personally reviewed the examination and initial interpretation and I agree with the findings. CORINNA BERG MD Narrative 03/23/2024 10:45 AM CDT Exam: Computed tomographic angiography of the chest without and with contrast including 3D reformations dated 03/23/2024 9:01 AM Clinical information: Patient admitted with concern for GCA. Obtaining CTA chest to assess for large vessel involvement Technique: Helical scans through the chest obtained before the administration of intravenous contrast media and following the injection of contrast media in the arterial phase. Source images reviewed as well as 3D and multi-planar reconstructions. Contrast: Isovue 370 DLP: 1932 mGy*cm Comparison: None Findings: Thoracic aortic diameters: ??Sinuses of Valsalva: 2.8 cm ??Sinotubular ridge: 2.5 cm ??Ascending aorta: ??3.1 cm ??Arch: 2.4 cm ??Proximal descending thoracic aorta: 2.4 cm ??Mid descending thoracic aorta: 2.2 cm ??Descending thoracic aorta at the diaphragm: 1.9 cm No adjacent fat stranding surrounding the aorta or proximal great vessels to suggest inflammation. There is normal branching pattern of the great vessels. Mild atherosclerotic calcifications of the origins of the brachiocephalic artery, left common carotid artery and left subclavian artery. The proximal pulmonary vasculature ??appears normal. The celiac axis, and SMA are patent. The right kidney has 1 visualized renal artery and the left kidney 1 visualized renal artery. Renal arteries appear patent. The splenic vein, portal vein, SMV and renal veins are patent. The hepatic veins and IVC are patent. ?? Chest: No abnormal hilar, mediastinal or axillary lymphadenopathy is seen. No focal consolidation. No pleural effusion or pneumothorax. Mild bibasilar atelectasis. Visualized upper abdomen: Fatty atrophy of the pancreatic parenchyma. Cholecystectomy. Hepatic steatosis. Postsurgical changes of gastric bypass. Multilevel degenerative changes throughout the visualized spine. Procedure Note Corinna Berg MD - 03/23/2024 Exam: Computed tomographic angiography of the chest without and with contrast including 3D reformations dated 03/23/2024 9:01 AM Clinical information: Patient admitted with concern for GCA. Obtaining CTA chest to assess for large vessel involvement Technique: Helical scans through the chest obtained before the administration of intravenous contrast media and following the injection of contrast media in the arterial phase. Source images reviewed as well as 3D and multi-planar reconstructions. Contrast: Isovue 370 DLP: 1932 mGy*cm Comparison: None Findings: Thoracic aortic diameters: Sinuses of Valsalva: 2.8 cm Sinotubular ridge: 2.5 cm Ascending aorta: 3.1 cm Arch: 2.4 cm Proximal descending thoracic aorta: 2.4 cm Mid descending thoracic aorta: 2.2 cm Descending thoracic aorta at the diaphragm: 1.9 cm No adjacent fat stranding surrounding the aorta or proximal great vessels to suggest inflammation. There is normal branching pattern of the great vessels. Mild atherosclerotic calcifications of the origins of the brachiocephalic artery, left common carotid artery and left subclavian artery. The proximal pulmonary vasculature appears normal. The celiac axis, and SMA are patent. The right kidney has 1 visualized renal artery and the left kidney 1 visualized renal artery. Renal arteries appear patent. The splenic vein, portal vein, SMV and renal veins are patent. The hepatic veins and IVC are patent. Chest: No abnormal hilar, mediastinal or axillary lymphadenopathy is seen. No focal consolidation. No pleural effusion or pneumothorax. Mild bibasilar atelectasis. Visualized upper abdomen: Fatty atrophy of the pancreatic parenchyma. Cholecystectomy. Hepatic steatosis. Postsurgical changes of gastric bypass. Multilevel degenerative changes throughout the visualized spine. Impression: Unremarkable CTA of the chest. No findings to suggest giant cell arteritis. I have personally reviewed the examination and initial interpretation and I agree with the findings. CORINNA BERG MD Margarita Crockett MD IMG CT ORDERABLES * ECHO COMPLETE WITH CONTRAST (03/23/2024 8:14 AM CDT) LVEF 60-65% CARDIOLOGY RESULTS Anatomical Region Laterality Modality Echocardiography 03/23/2024 7:53 AM CDT Narrative 03/23/2024 10:36 AM CDT [id number]^DIGNA^MARGARITA [facility] [facility] [address] [place] [address] Name: GATO PARTIDA : 1945 Study Date: 03/23/2024 07:53 AM Age: 78 yrs Gender: Female Patient Location: [facility] Reason For Study: Syncope Ordering Physician: MARGARITA CROCKETT Performed By: Priscila Mann RDCS BSA: 1.6 m2 Height: 60 in Weight: 149 lb BP: 94/48 mmHg Procedure Complete Portable Echo Adult. Contrast Optison. Echocardiogram with two- dimensional, color and spectral Doppler performed. Optison ([facility] #[id number]) given intravenously. Patient was given 5 ml mixture of 3 ml Optison and 6 ml saline. 4 ml wasted. Interpretation Summary Global and regional left ventricular function is normal with an EF of 60-65%. Global right ventricular function is normal. Mild mitral annular calcification is present with mild mitral insufficiency. Estimated mean right atrial pressure is normal. No pericardial effusion is present. Left Ventricle Left ventricular size is normal. Left ventricular wall thickness is normal. Global and regional left ventricular function is normal with an EF of 60-65%. Left ventricular diastolic function is abnormal. No regional wall motion abnormalities are seen. Right Ventricle The right ventricle is normal size. Global right ventricular function is normal. Atria The right atria appears normal. Severe left atrial enlargement is present. Mitral Valve Mild mitral annular calcification is present. Mild mitral insufficiency is present. Aortic Valve On Doppler interrogation, there is no significant stenosis or regurgitation. Tricuspid Valve The tricuspid valve is normal. Trace tricuspid insufficiency is present. The peak velocity of the tricuspid regurgitant jet is not obtainable. Pulmonary artery systolic pressure cannot be assessed. Pulmonic Valve The pulmonic valve is normal. Vessels The aorta root is normal. The inferior vena cava is normal. Estimated mean right atrial pressure is normal. Pericardium No pericardial effusion is present. Compared to Previous Study Previous study not available for comparison. MMode/2D Measurements & Calculations IVSd: 1.0 cm LVIDd: 4.0 cm LVIDs: 2.6 cm LVPWd: 1.0 cm FS: 34.7 % LV mass(C)d: 131.3 grams LV mass(C)dI: 79.7 grams/m2 Ao root diam: 2.7 cm asc Aorta Diam: 2.9 cm LVOT diam: 1.9 cm LVOT area: 2.7 cm2 Ao root diam index Ht(cm/m): 1.8 Ao root diam index BSA (cm/m2): 1.6 Asc Ao diam index BSA (cm/m2): 1.8 Asc Ao diam index Ht(cm/m): 1.9 LA Volume (BP): 95.4 ml LA Volume Index (BP): 57.8 ml/m2 RWT: 0.53 TAPSE: 2.0 cm Doppler Measurements & Calculations MV E max sam: 73.4 cm/sec MV A max sam: 118.4 cm/sec MV E/A: 0.62 MV dec time: 0.16 sec Ao V2 max: 161.2 cm/sec Ao max P.4 mmHg E/E' av.4 Lateral E/e': 9.5 Medial E/e': 11.2 RV S Sam: 14.7 cm/sec Report approved by: Angela Hernandez 03/23/2024 10:36 AM Procedure Note Malaika Dobbins MD - 03/23/2024 [id number]^DIGNA^MARGARITA [facility] [facility] [address] [place] [id number] Name: GATO PARTIDA : 1945 Study Date: 03/23/2024 07:53 AM Age: 78 yrs Gender: Female Patient Location: [facility] Reason For Study: Syncope Ordering Physician: MARGARITA CROCKETT Performed By: Priscila Mann RDCS BSA: 1.6 m2 Height: 60 in Weight: 149 lb BP: 94/48 mmHg Procedure Complete Portable Echo Adult. Contrast Optison. Echocardiogram with two- dimensional, color and spectral Doppler performed. Optison ([facility]#[id number]) given intravenously. Patient was given 5 ml mixture of 3 ml Optison and 6ml saline. 4 ml wasted. Interpretation Summary Global and regional left ventricular function is normal with an EF of60-65%. Global right ventricular function is normal. Mild mitral annular calcification is present with mild mitralinsufficiency. Estimated mean right atrial pressure is normal. No pericardial effusion is present. Left Ventricle Left ventricular size is normal. Left ventricular wall thickness isnormal. Global and regional left ventricular function is normal with an EF of60-65%. Left ventricular diastolic function is abnormal. No regional wall motion abnormalities are seen. Right Ventricle The right ventricle is normal size. Global right ventricular function is normal. Atria The right atria appears normal. Severe left atrial enlargement ispresent. Mitral Valve Mild mitral annular calcification is present. Mild mitral insufficiencyis present. Aortic Valve On Doppler interrogation, there is no significant stenosis orregurgitation. Tricuspid Valve The tricuspid valve is normal. Trace tricuspid insufficiency is present.The peak velocity of the tricuspid regurgitant jet is not obtainable.Pulmonary artery systolic pressure cannot be assessed. Pulmonic Valve The pulmonic valve is normal. Vessels The aorta root is normal. The inferior vena cava is normal. Estimatedmean right atrial pressure is normal. Pericardium No pericardial effusion is present. Compared to Previous Study Previous study not available for comparison. MMode/2D Measurements & Calculations IVSd: 1.0 cm LVIDd: 4.0 cm LVIDs: 2.6 cm LVPWd: 1.0 cm FS: 34.7 % LV mass(C)d: 131.3 grams LV mass(C)dI: 79.7 grams/m2 Ao root diam: 2.7 cm asc Aorta Diam: 2.9 cm LVOT diam: 1.9 cm LVOT area: 2.7 cm2 Ao root diam index Ht(cm/m): 1.8 Ao root diam index BSA (cm/m2): 1.6 Asc Ao diam index BSA (cm/m2): 1.8 Asc Ao diam index Ht(cm/m): 1.9 LA Volume (BP): 95.4 ml LA Volume Index (BP): 57.8 ml/m2 RWT: 0.53 TAPSE: 2.0 cm Doppler Measurements & Calculations MV E max sam: 73.4 cm/sec MV A max sam: 118.4 cm/sec MV E/A: 0.62 MV dec time: 0.16 sec Ao V2 max: 161.2 cm/sec Ao max P.4 mmHg E/E' av.4 Lateral E/e': 9.5 Medial E/e': 11.2 RV S Sam: 14.7 cm/sec Report approved by: Angela Hernandez 03/23/2024 10:36 AM Margarita Crockett MD CV ECHO ORDERABLES * CTV Head Neck w Contrast (03/22/2024 6:23 PM CDT) Anatomical Region Laterality Modality Head, SUBRAD CT NEURO, SUBRA D CT NEURO, UMP CT NEURO, RAD CT Computed Tomography Impressions 03/22/2024 8:37 PM CDT Impression: No evidence of intracranial venous sinus thrombosis. I have personally reviewed the examination and initial interpretation and I agree with the findings. XI BACON MD Narrative 03/22/2024 8:37 PM CDT EXAM: CTV HEAD NECK W CONTRAST 03/22/2024 6:23 PM Reconstruction by the Radiologist on 3D workstation History: ??Rule out venous sinus thrombosis Comparison: None Technique: Post intravenous contrast imaging was obtained of the head and neck with thin sections from the vertex through the lung apices with a delay for venogram purposes. Patient was imaged in the neutral position(s). Images were reviewed on the 3D workstation and manipulated. Contrast Dose: Isovue 370 Findings: HEAD: Head CTV demonstrates patent major dural and deep intracranial venous sinuses with no evidence of thrombosis. NECK Patent major cervical veins with no evidence of thrombosis. Mucosal retention cyst/mucosal thickening in the bilateral maxillary sinuses. Mastoid air cells are clear. Grossly normal orbits. Degenerative changes of the cervical spine, worst at C5-6. Procedure Note Xi Bacon MD - 03/22/2024 EXAM: CTV HEAD NECK W CONTRAST 03/22/2024 6:23 PM Reconstruction by the Radiologist on 3D workstation History: Rule out venous sinus thrombosis Comparison: None Technique: Post intravenous contrast imaging was obtained of the head and neck with thin sections from the vertex through the lung apices with a delay for venogram purposes. Patient was imaged in the neutral position(s). Images were reviewed on the 3D workstation and manipulated. Contrast Dose: Isovue 370 Findings: HEAD: Head CTV demonstrates patent major dural and deep intracranial venous sinuses with no evidence of thrombosis. NECK Patent major cervical veins with no evidence of thrombosis. Mucosal retention cyst/mucosal thickening in the bilateral maxillary sinuses. Mastoid air cells are clear. Grossly normal orbits. Degenerative changes of the cervical spine, worst at C5-6. Impression: No evidence of intracranial venous sinus thrombosis. I have personally reviewed the examination and initial interpretation and I agree with the findings. XI BACON MD Margarita Crockett MD IMG CT ORDERABLES * MRA Angiogram Neck w/o & w Contrast (03/22/2024 4:42 PM CDT) Anatomical Region Laterality Modality Neck, SUBRAD MR NEURO, UMP MR NEURO, RAD MR Magnetic Resonance Impressions 03/22/2024 8:42 PM CDT IMPRESSION: Neck MRA demonstrates patent major cervical vasculature 40% right and 25% left proximal internal carotid artery narrowing. I have personally reviewed the examination and initial interpretation and I agree with the findings. XI BACON MD Narrative 03/22/2024 8:42 PM CDT EXAM: MRA NECK (CAROTIDS) W/O & W CONTRAST ??03/22/2024 4:42 PM HISTORY: ??neck pain with right side headache concern for temporal arteritis vs other cause; Neck pain; Neck pain, no complicating feature; No chronic neck pain >= 3 months ?? COMPARISON: ??None TECHNIQUE: Neck MRA: Limited non contrast 2DTOF images were obtained of the mid-cervical region. Following intravenous gadolinium-based contrast administration, a contrast enhanced MRA of the neck/cervical vessels was performed. Three-dimensional reconstructions of the neck and head MRA were created, which were reviewed by the radiologist. CONTRAST: 6.7 cc IV Gadavist. FINDINGS: Neck MRA demonstrates patent major cervical vasculature. Mild/minimal focal luminal narrowing of the distal left common carotid artery near the bifurcation, likely related to atherosclerotic plaque. Bilateral narrowing of the proximal internal carotid arteries, approximately 25% on the left and 40% on the right. The normal distal right internal carotid artery measures 5 mm. The normal distal left internal carotid artery measures 5 mm. Procedure Note Xi Bacon MD - 03/22/2024 EXAM: MRA NECK (CAROTIDS) W/O & W CONTRAST 03/22/2024 4:42 PM HISTORY: neck pain with right side headache concern for temporal arteritis vs other cause; Neck pain; Neck pain, no complicating feature; No chronic neck pain >= 3 months COMPARISON: None TECHNIQUE: Neck MRA: Limited non contrast 2DTOF images were obtained of the mid-cervical region. Following intravenous gadolinium-based contrast administration, a contrast enhanced MRA of the neck/cervical vessels was performed. Three-dimensional reconstructions of the neck and head MRA were created, which were reviewed by the radiologist. CONTRAST: 6.7 cc IV Gadavist. FINDINGS: Neck MRA demonstrates patent major cervical vasculature. Mild/minimal focal luminal narrowing of the distal left common carotid artery near the bifurcation, likely related to atherosclerotic plaque. Bilateral narrowing of the proximal internal carotid arteries, approximately 25% on the left and 40% on the right. The normal distal right internal carotid artery measures 5 mm. The normal distal left internal carotid artery measures 5 mm. IMPRESSION: Neck MRA demonstrates patent major cervical vasculature 40% right and 25% left proximal internal carotid artery narrowing. I have personally reviewed the examination and initial interpretation and I agree with the findings. XI BACON MD Jona [place] MD [facility] MRI ORDERABLES * MRA Angiogram Head w/o Contrast (03/22/2024 4:41 PM CDT) Anatomical Region Laterality Modality Head, SUBRAD MR NEURO, UMP MR NEURO, RAD MR Magnetic Resonance Impressions 03/22/2024 8:38 PM CDT IMPRESSION: No large vessel occlusion, significant major intracranial arterial stenosis, or definite aneurysm. No definite enlarged temporal artery bilaterally. I have personally reviewed the examination and initial interpretation and I agree with the findings. XI BACON MD Narrative 03/22/2024 8:38 PM CDT EXAM MRA BRAIN (LYTTON OF GREGORIO) W/O CONTRAST 03/22/2024 4:41 PM HISTORY: Headache; r/o Giant cell/temporal arteritis; Age > 50 years; No visual symptoms COMPARISON: ??None TECHNIQUE: Using a 3D [id number] image acquisition technique, MRA of the major arteries at the base of the brain was obtained without intravenous contrast. Three-dimensional reconstructions of the head MRA were created, which were reviewed by the radiologist. FINDINGS: The posterior communicating, anterior, middle, and posterior cerebral arteries are patent. No significant stenosis or occlusion of the arteries in the posterior fossa. No arterial aneurysm. No definite enlarged temporal artery bilaterally. No acute abnormality of the other imaged intracranial, paranasal sinus, orbital, and/or skull base structures. Procedure Note Xi Bacon MD - 03/22/2024 EXAM MRA BRAIN (LYTTON OF GREGORIO) W/O CONTRAST 03/22/2024 4:41 PM HISTORY: Headache; r/o Giant cell/temporal arteritis; Age > 50 years; No visual symptoms COMPARISON: None TECHNIQUE: Using a 3D [id number]-jb-[id number] image acquisition technique, MRA of the major arteries at the base of the brain was obtained without intravenous contrast. Three-dimensional reconstructions of the head MRA were created, which were reviewed by the radiologist. FINDINGS: The posterior communicating, anterior, middle, and posterior cerebral arteries are patent. No significant stenosis or occlusion of the arteries in the posterior fossa. No arterial aneurysm. No definite enlarged temporal artery bilaterally. No acute abnormality of the other imaged intracranial, paranasal sinus, orbital, and/or skull base structures. IMPRESSION: No large vessel occlusion, significant major intracranial arterial stenosis, or definite aneurysm. No definite enlarged temporal artery bilaterally. I have personally reviewed the examination and initial interpretation and I agree with the findings. XI BACON MD Jona [place] MD [facility] MRI ORDERABLES * MR Brain and Orbits w/o & w Contrast (03/22/2024 4:41 PM CDT) Anatomical Region Laterality Modality Head, SUBRAD MR NEURO, UMP MR NEURO, RAD MR Magnetic Resonance Impressions 03/22/2024 10:02 PM CDT Impression: ?? 1. No acute intracranial pathology. 2. Sequela of chronic small vessel ischemic disease. 3. Patent normal appearing major intracranial vasculature without evidence of significant vasculitis. Partially visualized temporal arteries are unremarkable. Ultrasound of the temporal arteries can be considered. I have personally reviewed the examination and initial interpretation and I agree with the findings. XI BACON MD Narrative 03/22/2024 10:02 PM CDT MR BRAIN AND ORBITS W/O & W CONTRAST 03/22/2024 4:41 PM Provided History: ??right vision decrease with right side headache, hx of PMR, dizziness ??and neck and jaw pain ??eval for temporal arteritis vs other ICD-10: Comparison: ??None Technique: ?? 1. MRI of the Brain: ??Sagittal T1-weighted, axial turboFLAIR and axial diffusion-weighted with ADC map images of the brain were obtained without intravenous contrast. ??After intravenous administration of gadolinium, axial T1-weighted images of the brain were obtained. 2. MRI of the Orbits focused on the orbits/visual pathways: ??Axial T2-weighted with inversion recovery and coronal T1-weighted images were obtained without intravenous contrast. Axial and coronal T1-weighted images with fat saturation were obtained after intravenous gadolinium administration. Contrast: 6.7 cc IV Gadavist Findings: No abnormal intracranial diffusion restriction. No evidence of acute intracranial hemorrhage, mass effect, midline shift, exta-axial collection, the ventricles are proportionate overlying several sulci in the setting of mild diffuse cerebral parenchymal volume loss. Scattered periventricular and subcortical white matter T2/FLAIR hyperintense foci/changes, most likely related to chronic small vessel ischemic disease. No abnormal intracranial enhancement. Patent major intracranial arterial vasculature without large vessel occlusion identified or significant stenoses. Grossly unremarkable partially visualized temporal arteries. Normal calvarial signal. Inferior maxillary mucosal retention cyst/mild mucosal thickening. Relatively clear mastoid air cells. Normal orbits. Procedure Note Xi Bacon MD - 03/22/2024 MR BRAIN AND ORBITS W/O & W CONTRAST 03/22/2024 4:41 PM Provided History: right vision decrease with right side headache, hx of PMR, dizziness and neck and jaw pain eval for temporal arteritis vs other ICD-10: Comparison: None Technique: 1. MRI of the Brain: Sagittal T1-weighted, axial turboFLAIR and axial diffusion-weighted with ADC map images of the brain were obtained without intravenous contrast. After intravenous administration of gadolinium, axial T1-weighted images of the brain were obtained. 2. MRI of the Orbits focused on the orbits/visual pathways: Axial T2-weighted with inversion recovery and coronal T1-weighted images were obtained without intravenous contrast. Axial and coronal T1-weighted images with fat saturation were obtained after intravenous gadolinium administration. Contrast: 6.7 cc IV Gadavist Findings: No abnormal intracranial diffusion restriction. No evidence of acute intracranial hemorrhage, mass effect, midline shift, exta-axial collection, the ventricles are proportionate overlying several sulci in the setting of mild diffuse cerebral parenchymal volume loss. Scattered periventricular and subcortical white matter T2/FLAIR hyperintense foci/changes, most likely related to chronic small vessel ischemic disease. No abnormal intracranial enhancement. Patent major intracranial arterial vasculature without large vessel occlusion identified or significant stenoses. Grossly unremarkable partially visualized temporal arteries. Normal calvarial signal. Inferior maxillary mucosal retention cyst/mild mucosal thickening. Relatively clear mastoid air cells. Normal orbits. Impression: 1. No acute intracranial pathology. 2. Sequela of chronic small vessel ischemic disease. 3. Patent normal appearing major intracranial vasculature without evidence of significant vasculitis. Partially visualized temporal arteries are unremarkable. Ultrasound of the temporal arteries can be considered. I have personally reviewed the examination and initial interpretation and I agree with the findings. XI BACON MD Jona [place] MD IMG MRI ORDERABLES * (ABNORMAL) UA with Microscopic reflex to Culture (03/22/2024 9:44 AM CDT) Color Urine Straw Colorless, Straw, Light Yellow, Yellow 03/22/2024 10:28 AM CDT [facility] Appearance Urine Clear Clear 03/22/20 10:28 AM CDT [facility] Glucose Urine Negative Negative mg/dL 03/22/2024 10:28 AM CDT [facility] Bilirubin Urine Negative Negative 10:28 AM CDT [facility] Ketones Urine Negative Negative mg/dL 03/22/2024 10:28 AM CDT [facility] Specific [place] Urine 1.004 1.003 - 1.035 03/22/2024 10:28 AM CDT [facility] Blood Urine Negative Negative 03/22/2024 10:28 AM CDT [facility] pH Urine 6.0 5.0 - 7.0 03/22/2024 10:28 AM CDT [facility] Protein Albumin Urine Negative Negative mg/dL 03/22/2024 10:28 AM CDT [facility] Urobilinogen Urine Normal Normal, 2.0 mg/dL 03/22/2024 10:28 AM CDT [facility] Nitrite Urine Negative Negative 03/22/2024 10:28 AM CDT [facility] Leukocyte Esterase Urine Moderate(A) Negative 03/22/2024 10:28 AM CDT [facility] RBC Urine 0 <=2 /HPF 03/22/2024 10:28 AM CDT [facility] WBC Urine 24(H) <=5 /HPF 03/22/2024 10:28 AM CDT [facility] Squamous Epithelials Urine 1 <=1 /HPF 03/22/2024 10:28 AM CDT [facility] Transitional Epithelials Urine <1 <=1 /HPF 03/22/2024 10:28 AM CDT [facility] Urine MID-STREAM URINE SPECIMEN / Unknown Non-blood Collection / Unknown 03/22/2024 9:44 AM CDT 03/22/2024 9:51 AM CDT Narrative [facility] - 03/22/2024 10:28 AM CDT Urine Culture ordered based on laboratory criteria Jona Saers MD LAB - URINE ORDERAB LES [facility] Lab [address] [place] [address], [address] [place] [id number] * (ABNORMAL) Urine Culture (03/22/2024 9:44 AM CDT) Culture 10,000-50,000 CFU/mL Escherichia coli(A) LICHA 03/23/2024 1:05 PM CDT [facility] Comment:This organism is con sidered part of Normal margarita Culture 10,000-50,000 CFU/mL Mixture of urogenital margarita 03/23/2024 1:05 PM CDT [facility] Urine MID-STREAM URINE SPECIMEN / Unknown Non-blood Collection / Unknown 03/22/2024 9:44 AM CDT 03/22/2024 10:28 AM CDT Jona [place] MD LAB - MICRO GENERAL ORDERABLES [facility] Inf. Diseases Diag. Lab [address] [facility], [address] [place] [phone] * Lactic Acid Whole Blood with 1X Repeat in 2 HR when >2 (03/22/2024 9:27 AM CDT) Lactic Acid, Initial 1.4 0.7 - 2.0 mmol/L 03/22/2024 9:42 AM CDT [facility] Blood BLOOD SPECIMEN / Unknown Venipuncture / Unknown 03/22/2024 9:27 AM CDT 03/22/2024 9:40 AM CDT Jona [place] MD LAB - BLOOD ORDERAB LES Performing Organization Address City/[facility] Co de Phone Number [facility] [place] [facility] Lab [address] [facility], [address] [place] [phone] * EKG 12-lead, tracing only (03/22/2024 9:16 AM CDT) Systolic Blood Pressure mmHg RADIOLOGY RESULTS Diastolic Blood Pressure mmHg RADIOLOGY RESULTS Ventricular Rate 70 BPM RAD IOLOGY RESULTS Atrial Rate 70 BPM RADIOLOG Y RESULTS HI Interval 130 ms RADIOLOG Y RESULTS QRS Duration 84 ms RADIOLO GY RESULTS QT 394 ms RADIOLOGY RESULTS QTc 425 ms RADIOLOGY RESULTS P [place] 19 degrees RADIOLOGY RESULTS R AXIS 33 degrees RADIOLOGY RESULTS T [place] 60 degrees RADIOLOGY RESULTS Interpretation ECG Sinus rhythm Normal ECG Unconfirmed report - interpretation of this ECG is computer generated - see medical record for final interpretation Confirmed by - EMERGENCY ROOM, PHYSICIAN ([id number]), visual effects editor DANIA ACOSTA ([id number]) on 03/24/2024 6:54:51 AM RADIOLOGY RESULTS 03/22/2024 9:16 AM CDT 03/24/2024 6:54 AM CDT Jona Sears MD ECG ORDERABLES RADIOLOGY RESULTS * Extra Purple Top Tube (03/22/2024 8:45 AM CDT) Hold Specimen [facility] 03/22/2024 10:32 AM CDT LABORATORY Blood BLOOD SPECIMEN / Unknown Venipuncture / Unknown 03/22/2024 8:45 AM CDT 03/22/2024 9:24 AM CDT Ramya Berry DO LAB - BLOOD ORDERABL ES LABORATORY [facility] [place] [facility] [address] [facility], [address] * Extra Green Top ([place] Heparin) Tube (03/22/2024 8:45 AM CDT) Hold Specimen [facility] 03/22/2024 10:32 AM CDT LABORATORY Blood BLOOD SPECIMEN / Unknown Venipuncture / Unknown 03/22/2024 8:45 AM CDT 03/22/2024 9:23 AM CDT Ramya Berry DO LAB - BLOOD ORDERABL ES LABORATORY [facility] [place] [facility] [address] [facility], [address] * Extra Red Top Tube (03/22/2024 8:45 AM CDT) Hold Specimen [facility] 03/22/2024 10:46 AM CDT LABORATORY Blood BLOOD SPECIMEN / Unknown Venipuncture / Unknown 03/22/2024 8:45 AM CDT 03/22/2024 9:34 AM CDT Ramya Berry DO LAB - BLOOD ORDERABL ES LABORATORY [facility] [place] [facility] [address] [facility], [address] [id number] * Extra Blue Top Tube (03/22/2024 8:45 AM CDT) Hold Specimen [facility] 03/22/2024 10:32 AM CDT U LABORATORY Blood BLOOD SPECIMEN / Unknown Venipuncture / Unknown 03/22/2024 8:45 AM CDT 03/22/2024 9:24 AM CDT Ramya Berry DO LAB - BLOOD ORDERABL ES LABORATORY [facility] [address] [facility], [address] * Troponin T, High Sensitivity (03/22/2024 8:45 AM CDT) Troponin T, High Sensitivity 12 <=14 ng/L 03/22/2024 10:19 AM CDT U LABORATORY Comment: Either a High Sensitivity Troponin T baseline (0 hours) value = 100 ng/L, or an increase in High Sensitivity Troponin T = 7 ng/L at 2 hours compared to 0 hours (2-0 hours), suggests myocardial injury, and urgent clinical attention is required. ?? If the 2-0 hours increase is <7 ng/L, a High Sensitivity Troponin T result above gender-specific reference ranges warrants further evaluation. Recommendations for further evaluation include correlation with clinical decision-making tool (e.g., HEART), a 3rd High Sensitivity Troponin T test 2 hours after the 2nd (a 20% change from baseline would represent concern), admission for observation, close PCC/cardiology follow-up, or urgent outpatient provocative testing. Blood BLOOD SPECIMEN / Unknown Venipuncture / Unknown 03/22/2024 8:45 AM CDT 03/22/2024 9:23 AM CDT Jona Sears MD LAB - BLOOD ORDERAB LES LABORATORY [facility] [place] [facility] [address] [facility], [address] * TSH (03/22/2024 8:45 AM CDT) TSH 2.40 0.30 - 4.20 uIU/mL 03/22/2024 10:19 AM CDT [facility] Blood BLOOD SPECIMEN / Unknown Venipuncture / Unknown 03/22/2024 8:45 AM CDT 03/22/2024 9:23 AM CDT Jona Sears MD LAB - BLOOD ORDERAB LES U LABORATORY [facility] [place] [facility] [address] [facility], [address] * INR (03/22/2024 8:45 AM CDT) INR 0.91 0.85 - 1.15 03/22/2024 9:50 AM CDT [facility] Blood BLOOD SPECIMEN / Unknown Venipuncture / Unknown 03/22/2024 8:45 AM CDT 03/22/2024 9:24 AM CDT Jona Sears MD LAB - BLOOD ORDERAB LES U LABORATORY [facility] [place] [facility] [address] [facility], [address] * Partial thromboplastin time (03/22/2024 8:45 AM CDT) aPTT 33 22 - 38 Seconds 03/22/2024 9:50 AM CDT [facility] Blood BLOOD SPECIMEN / Unknown Venipuncture / Unknown 03/22/2024 8:45 AM CDT 03/22/2024 9:24 AM CDT Jona Sears MD LAB - BLOOD ORDERAB LES U LAB[facility]ATORY [facility] [place] [facility] [address] [facility], [address] * Nt probnp inpatient (BNP) (03/22/2024 8:45 AM CDT) N terminal Pro BNP Inpatient 523 0 - 1,800 pg/mL 03/22/2024 10:19 AM CDT [facility] Comment: Reference range shown and results flagged as abnormal are suggested inpatient cut points for confirming diagnosis if CHF in an acute setting. Establishing a baseline value for each individual patient is useful for follow-up. An inpatient or emergency department NT-proPBNP <300 pg/mL effectively rules out acute CHF, with 99% negative predictive value. The outpatient non-acute reference range for ruling out CHF is: 0-125 pg/mL (age 18 to less than 75) 0-450 pg/mL (age 75 yrs and older) Blood BLOOD SPECIMEN / Unknown Venipuncture / Unknown 03/22/2024 8:45 AM CDT 03/22/2024 9:23 AM CDT Jona Sears MD LAB - BLOOD ORDERAB LES Performing Organization Address City/[facility]/ZIP Co de Phone Number [facility] LAB[facility]AT[facility] [place] [facility] [address] [facility], [address] * Magnesium (03/22/2024 8:45 AM CDT) Magnesium 1.9 1.7 - 2.3 mg/dL 03/22/2024 10:19 AM CDT [facility] Blood BLOOD SPECIMEN / Unknown Venipuncture / Unknown 03/22/2024 8:45 AM CDT 03/22/2024 9:23 AM CDT Jona Sears MD LAB - BLOOD ORDERAB LES [facility] [place] [facility] [address] [facility], [address] * (ABNORMAL) Comprehensive metabolic panel (03/22/2024 8:45 AM CDT) Sodium 139 135 - 145 mmol/L 03/22/2024 10:19 AM CDT [facility] Potassium 3.8 3.4 - 5.3 mmol/L 03/22/2024 10:19 AM CDT [facility] Carbon Dioxide (CO2) 23 22 - 29 mmol/L 03/22/2024 10:19 AM CDT [facility] Anion Gap 11 7 - 15 mmol/L 03/22/2024 10:19 AM CDT [facility] Urea Nitrogen 19.2 8.0 - 23.0 mg/dL 03/22/2024 10:19 AM CDT [facility] Creatinine 0.64 0.51 - 0.95 mg/dL 03/22/2024 10:19 AM CDT [facility] GFR Estimate >90 >60 mL/min/1.7 3m2 03/22/2024 10:19 AM CDT [facility] Comment:eGFR calculated 2020 CKD-EPI equation. Calcium 9.4 8.8 - 10.4 mg/dL 03/22/2024 10:19 AM CDT [facility] Comment:Reference intervals for this test were updated on 03/11/2024 to reflect our healthy population more accurately. There may be differences in the flagging of prior results with similar values performed with this method. Those prior results can be interpreted in the context of the updated reference intervals. Chloride 105 98 - 107 mmol/L 03/22/2024 10:19 AM CDT [facility] Glucose 88 70 - 99 mg/dL 03/22/2024 10:19 AM CDT [facility] Alkaline Phosphatase 121 40 - 150 U/L 03/22/2024 10:19 AM CDT [facility] AST 21 0 - 45 U/L 03/22/2024 10:19 AM CDT [facility] ALT 79(H) 0 - 50 U/L 03/22/2024 10:19 AM CDT [facility] Protein Total 7.0 6.4 - 8.3 g/dL 03/22/2024 10:19 AM CDT [facility] Albumin 4.4 3.5 - 5.2 g/dL 03/22/2024 10:19 AM CDT [facility] Bilirubin Total 0.3 <=1.2 mg/dL 03/22/2024 10:19 AM CDT [facility] Blood BLOOD SPECIMEN / Unknown Venipuncture / Unknown 03/22/2024 8:45 AM CDT 03/22/2024 9:23 AM CDT Jona Sears MD LAB - BLOOD ORDERAB LES [facility] [place] [facility] [address] [facility] [address] [facility], [address] [place] [address], [facility] from Last 3 Months Advance Directives For more information, please contact: [phone] * Full Code (Latest Code Status on File) Date Activated Date Inactivated Comments 03/25/2024 6:43 PM 03/26/2024 9:05 PM All basic an d advanced life-sustaining interventions are performed as appropriate Question Answer Comments Code status determined by: Discussion with patie nt/ legal decision maker * Full Code Date Activated Date Inactivated Comments 03/22/2024 5:39 PM 03/25/2024 6:43 PM All basic an d advanced life-sustaining interventions are performed as appropriate Question Answer Comments Code status determined by: Discussion with patie nt/ legal decision maker Care Teams Sales Support Rep Relationship Specialty Start Date End Date Feliciano Uribe MD [facility] & [address] [address] PCP - General Family Medicine 06/01/23 Christina Roe PA-C [address] [place] [address] Physician Record Tester Rheumatology 11/06/23 Christina Roe PA-C [address] [place] [address] Assigned Rheumatology Provider 11/09/23 Richie Rowell Justine [address] [place] [id number] Pharmacist Pharmacist 04/08/24 Richie Rowell Justine [address] [place] [id number] Assigned MTM Pharmacist 04/18/24 Zhane Crain MD [address] [place] [address] Physician Rheumatology 05/14/24
--- OUTSIDE RECORDS SUMMARY | 2024-05-16 13:14 | XMS_ITS | Encounter Summary ---
Author Organization [facility] Address [address] [place] [id number] Care Team Providers Care Patent Chemist Name Role Phone Feliciano Uribe MD Primary Care Provider Christina Roe PA-C Unavailable [phone] Christina Roe PA-C Unavailable Richie Rowell [facility] Unavailable Richie Rowell [facility] Unavailable Encounter Details Date Type Department Care Team (Latest Contact Info) Description 04/22/2024 Travel Social History Tobacco Use Types Packs/Day [...] Description 05/20/2024 9:30 AM CDT Virtual Visit [facility] [address] [facility] [address] [place] [address] Zhane Crain MD [address] [place] [id number] Richie Rowell RP [address] [place] [address] 07/31/2024 2:00 PM [employer]SEM[employer]ER [employer] Office Visit [facility] [address] [facility] [address] [place] [phone] Christina Roe PA-C [address] [place] [address] documented as of this encounter Visit Diagnoses Not on filedocumented in this encounter Care Teams Patent Chemist Relationship Specialty Start Date End Date Feliciano Uribe MD [address] [address] PCP - General Family Medicine 06/01/23 Christina Roe PA-C [address] [place] [address] Physician Digital Content Coordinator Rheumatology 11/06/23 Christina Roe PA-C [address] [place] [address] Assigned Rheumatology Provider 11/09/23 Richie Rowell RPH [address] [place] [address] Pharmacist Pharmacist 04/08/24 Richie Rowell RPH [address] [place] [address] Assigned MTM Pharmacist 04/18/24 documented as of this encounter
--- OUTSIDE RECORDS SUMMARY | 2024-05-16 13:14 | XMS_ITS | Referral Summary ---
Author Organization [place] Address [address] [place] [address] Care Team Providers Care Railcar Mechanic Name Role Phone Feliciano Uribe MD Primary Care Provider [phone] Christina Roe PA-C Unavailable [phone] Christina Roe PA-C Unavailable Richie Rowell [facility] Unavailable Richie Rowell [facility] Unavailable Zhane Crain MD Unavailable Encounters Date Type Department Care Team Description 05/13/2024 Telephone [facility] [address] [facility] [facility] [address] [place] [address] Zhane Crain MD Orders 05/13/2024 [facility] [address] [place] [phone] Christina Roe PA-C 05/09/[address] [place] [address] Zhane Crain MD Medication Question (Tocilizumab (ACTEMRA ACTPEN) 162 MG/0.9ML SOAJ /) 05/09/2024 MyC Medical Advice [facility] [address] [place] [phone] Adalberto Boles 05/07/2024 Travel 05/07/2024 PRE VISIT [facility] - [address] [phone] Saeed Berry MD Previsit 05/07/2024 8:00 AM CDT Office Visit [facility] - [address] [phone] Saeed Berry MD Arcuate scotoma of both eyes (Primary Dx) 05/06/2024 Orders Only [facility] - [address] [phone] Saeed Berry MD Visual field defect (Primary Dx) 05/06/2024 MyC Medical Advice [address] [phone] Christina Roe PA-C 05/02/2024 MyC Medical Advice [facility] [address] [place] [phone] Adalberto Boles 05/02/2024 Telephone [facility] - [address] [phone] Saeed Brery MD 04/23/2024 MyC Medical Advice [address] [place] [phone] Zhane Crain MD 04/22/2024 Travel 04/22/2024 2:20 PM CDT Ancillary Procedure [facility] [address] [place] [phone] Zhane Crain MD GCA (giant cell arteritis) (H); Pain in right lower leg 04/22/2024 1:15 PM CDT Therapy Visit [facility] [address] [place] [address] Christina Roe PA-C Solie, Jessica, OT Temporal arteritis (H) (Primary Dx); Generalized muscle weakness 04/21/2024 MyC Medical Advice [facility] [address] [facility] [address] [place] [phone] Richie Rowell [facility] 04/17/2024 12:50 PM CDT Lab [facility] [address] [place] [phone] GCA (giant cell arteritis) (H); PMR (polymyalgia rheumatica) (H24); Need for hepatitis B screening test 04/17/2024 12:30 PM CDT Office Visit [facility] [address] [place] [phone] Zhane Crain MD GCA (giant cell arteritis) (H); Pain in right lower leg 04/16/2024 Travel 04/14/2024 MyC Medical Advice [facility] [address] 1[address] [place] [address] Adalberto Boles 04/14/2024 Travel 04/14/2024 10:45 AM CDT Therapy Visit [facility] [address] [place] [phone] Kristel Madrid, PT Temporal arteritis (H) (Primary Dx); PMR (polymyalgia rheumatica) (H24); Impaired gait and mobility 04/10/2024 MyC Medical Advice [facility] [address] [facility] [address] [place] [phone] Richie Rowell [facility] 04/09/2024 MyC Medical Advice [facility] [address] [facility] [address] [place] [phone] Richie Rowell RPH 04/09/2024 Travel 04/09/2024 11:45 AM CDT Therapy Visit [address] [place] [phone] Christina Roe, Mary Felipe, OT Cognitive changes (Primary Dx); Temporal arteritis (H); PMR (polymyalgia rheumatica) (H24); Generalized muscle weakness 04/09/2024 PRE VISIT [facility] [address] [phone] Saeed Berry MD 04/09/2024 10:30 AM CDT Therapy Visit [address] [place] [phone] Luz Yuan MD Archbold, Katherine Charlotta Beed, PT Temporal arteritis (H) (Primary Dx); PMR (polymyalgia rheumatica) (H24); Impaired gait and mobility 04/08/2024 Telephone [facility] [address] [place] [phone] Zhane Crain MD Prior Auth - Medication (Actemra) 04/08/2024 9:30 AM CDT Virtual Visit [facility] [address] [facility] [facility] [address] [place] [address] Zhane Crain MD Krier, John [facility] GCA (giant cell arteritis) (H) (Primary Dx); PMR (polymyalgia rheumatica) (H24); Vaccine counseling; Primary hypertension; Hyperlipidemia, unspecified hyperlipidemia type; Anxiety; Depression, unspecified depression type; Hypothyroidism, unspecified type; Takes dietary supplements; Need for hepatitis B screening test 04/02/2024 Travel 04/02/2024 2:15 PM CDT Therapy Visit [address] [place] [phone] Luz Yuan MD Archbold, Sue Baldwin, Impaired gait and mobility (Primary Dx); Temporal arteritis (H); PMR (polymyalgia rheumatica) (H24) 03/28/2024 Telephone [facility] [address] [phone] Jorge Kelly MD Appointment 03/27/2024 MyC Medical Advice [address] [phone] Mychart, [place] 03/27/[address] [phone] Saeed Berry MD 03/22/2024 8:48 AM CDT - 03/26/2024 6:45 PM CDT Hospital Encounter [facility] 5A Oncology [address] [place] [address] Jona Sears MD Hozayen, Sameh M, MD Davis, Elizabeth M, MD Urinary tract infection without hematuria, site unspecified (Primary Dx); Temporal arteritis (H); PMR (polymyalgia rheumatica) (H24); Decreased vision of right eye; Right temporal headache; Neck pain Discharge Disposition: Home or Self Care 03/25/2024 3:10 PM CDT Anesthesia Event [facility]iOp [facility] [address] [place] [address] Shari Mckeon MD Kalina, Lucas, APRN CRNA 03/25/2024 Ophth Exam [facility] Service Line [address] [place] [phone] Jorge Kelly MD 03/25/2024 2:00 PM CDT - 03/25/2024 3:10 PM CDT Surgery [facility] [address] [place] [address] Richie Hawk DO Bilateral temporal Artery Biopsy 03/24/2024 Orders Only [facility] [address] [phone] Ashwin Galo MD Temporal arteritis (H) (Primary Dx); GCA (giant cell arteritis) (H) 03/24/2024 Ophth Exam [facility] Service Line [address] [place] [phone] Lamont Canales MD 03/23/2024 Travel 03/23/2024 Ophth Exam [facility] Line [address] [place] [phone] Lamont Canales MD 03/22/2024 Ophth Exam [facility] Service Line [address] [place] [phone] Luis Alberto Anderson MD 03/22/2024 Travel 03/20/2024 Travel 03/20/2024 10:30 AM CDT Office Visit [address] [phone] Christina Roe PA-C Polymyalgia rheumatica (H24) (Primary Dx); On prednisone therapy; Right sided temporal headache 03/17/2024 MyC Medical Advice [address] [phone] Christina Roe PA-C 02/15/2024 MyC Medical Advice [address] [phone] Christina Roe PA-C Polymyalgia rheumatica (H24) (Primary Dx) from Last 3 Months Allergies Active Allergy [...] mouth at bedtime Active D3-50 1.25 MG (96651 UT) capsule Take 1,250 mcg by mouth [...] 03/14/2010 Immunizations Name Administration Dates Next Due DT (PEDS <7y) 01/30/1980 Flu, Unspecified 06/21/2020,05/05/2011 [id number] Novel Flu 06/28/2009 Influenza (High Dose) Trival ent,PF (Fluzone) 06/28/2018,05/02/2017,06/05/2016,2013 Influenza (IIV3) PF 05/05/2011 Influenza Vaccine 65+ (Fluzone HD) 06/19/2023,,06/21/2020 Influenza, seasonal, injectable, PF 05/02/2012,0 05/13/2009 Pneumo Conj 13-V (2010&after) 01/12/2015 Pneumococcal 23 valent 11/28/2013,08/27/2007 TD,PF 7+ (Tenivac) 03/10/2005 TDAP (Adacel,Boostrix) 11/21/2021,05/02/2012 Social History Tobacco Use Types Packs/Day Years [...] Description 05/20/2024 9:30 AM CDT Virtual Visit [facility] [address] [place] [address] Zhane Crain MD [address] [place], [place] [address] Richie Rowell [facility] [address] [place], [place] [phone] 07/31/2024 2:00 PM CUSTODIAL OFFICER Office Visit [facility] [address] [place] [address] Christina Roe PA-C [address] [place] [address] Procedures Procedure Name Priority Date/Time Associated Diagnosis [...] AM CDT SURGICAL PATHOLOGY EXAM Routine 03/25/20 4:29 PM CDT ANE AIRWAY ETT PERFORMABLE [...] STAT 03/22/2024 4:42 PM CDT MRA BRAIN ([place]ER [place]) W/O CONTRAST STAT 03/22/2024 4:41 [...] OU (both eyes) (05/07/2024 8:22 AM CDT) Saeed Pastrana MD - 05/07/2024 8:22 AM CDT Right [...] US LOWER EXTREMITY VENOUS DUPLEX RIGHT LOCATION: [facility] DATE: 04/22/2024 INDICATION: ??GCA (giant cell arteritis) [...] US LOWER EXTREMITY VENOUS DUPLEX RIGHT LOCATION: [facility] DATE: 04/22/2024 INDICATION: GCA (giant cell arteritis) [...] the right lower extremity. Zhane Crain MD [facility] ORDERABLES * Quantiferon TB Gold Plus (04/17/2024 1:11 PM CDT) [facility] Quantiferon-TB Gold Plus Negative Negative 04/18/2024 5:06 [...] UM SPECIALTY CORE/PROT/ENDO [facility] Specialty Core/Prot/Endo [address] [facility] [address], Room [address] * Quantiferon TB Gold Plus Purple Tube (04/17/2024 1:11 PM CDT) Quantiferon Mitogen 2.03 IU/mL 04/18/2024 4:17 PM CDT UM SPECIALTY CORE/PROT/ENDO Blood BLOOD SPECIMEN / Unknown Venipuncture / Unknown 04/17/2024 1:11 PM CDT 04/17/2024 1:24 PM CDT Zhane Crain MD LAB - MICRO GENERAL ORDERABLES UM SPECIALTY CORE/PROT/ENDO UM Specialty Core/Prot/Endo [address] [facility], Room [address] [place] [address] * Quantiferon TB Gold Plus Yellow Tube (04/17/2024 1:11 PM CDT) Quantiferon TB2 Tube 0.00 04/18/2024 4:18 PM CDT SPECIALTY CORE/PROT/ENDO Blood BLOOD SPECIMEN / Unknown Venipuncture / Unknown 04/17/2024 1:11 PM CDT 04/17/2024 1:24 PM CDT Zhane Crain MD LAB - MICRO GENERAL ORDERABLES UM SPECIALTY CORE/PROT/ENDO Specialty Core/Prot/Endo [address] [facility], [address] * Quantiferon TB Gold Plus Green Tube (04/17/2024 1:11 PM CDT) Quantiferon TB1 Tube 0.00 IU/mL 04/18/2024 4:18 PM CDT SPECIALTY CORE/PROT/ENDO Blood BLOOD SPECIMEN / Unknown Venipuncture / Unknown 04/17/2024 1:11 PM CDT 04/17/2024 1:24 PM CDT Zhane Crain MD LAB - MICRO GENERAL ORDERABLES UM SPECIALTY CORE/PROT/ENDO Specialty Core/Prot/Endo [address] [facility], [address] * Quantiferon TB Gold Plus [place]ett Tube (04/17/2024 1:11 PM CDT) Quantiferon Nil Tube 0.00 IU/mL 04/18/2024 4:18 PM CDT UM SPECIALTY CORE/PROT/ENDO Blood BLOOD SPECIMEN / Unknown Venipuncture / Unknown 04/17/2024 1:11 PM CDT 04/17/2024 1:24 PM CDT Zhane Crain MD LAB - MICRO GENERAL ORDERABLES UM SPECIALTY CORE/PROT/ENDO Specialty Core/Prot/Endo [address] [facility] [address] * Lipid panel reflex to direct LDL [...] LAB - BLOOD ORDERABLES Performing Organization Address [facility] de Phone Number LABORATORY [facility] Core Lab [address] [facility], [address] [phone] * Hepatitis C antibody (04/17/2024 1:11 PM CDT) [facility] Hepatitis C Antibody Nonreactive Nonreactive 04/17/2024 8:05 PM CDT LABORATORY Comment:A nonreactive screen ing test result [...] LAB - BLOOD ORDERABLES Performing Organization Address [facility] Co de Phone Number LABORATORY [facility] [address] [facility], [address] [phone] * Hepatitis B surface antigen (04/17/2024 1:11 PM CDT) Pathologist [facility] Hepatitis B Surface Antigen Nonreactive Nonreactive 04/17/2024 8:05 PM CDT U LABORATORY Blood STRUCTURE OF RIGHT UPPER LIMB / Unknown Venipuncture / Unknown 04/17/2024 1:11 PM CDT 04/17/2024 1:24 PM CDT Zhane Crain MD LAB - BLOOD ORDERABLES LABORATORY [facility] [address] [facility], [address] [phone] * Hepatitis B core antibody (04/17/2024 1:11 PM CDT) [facility] Hepatitis B Core Antibody Total Nonreactive Nonreactive 04/17/2024 8:05 PM CDT LABORATORY Comment:Nonreactive hepatiti s B core antibody test results indicate the absence of exposure to hepatitis B virus and no evidence of recent, past/resolved, or chronic hepatitis B. Blood STRUCTURE OF RIGHT UPPER LIMB / Unknown Venipuncture / Unknown 04/17/2024 1:11 PM CDT 04/17/2024 1:24 PM CDT Zhane Crain MD LAB - BLOOD ORDERABLES LABORATORY [facility] [address] [facility], [address] [phone] * Erythrocyte sedimentation rate auto (04/17/2024 1:11 PM CDT) Only the most recent of6 resultswithin the time period is included. [facility] Erythrocyte Sedimentation Rate 5 0 - 30 mm/hr 04/17/2024 1:43 PM CDT [facility] LABORATORY Blood STRUCTURE OF RIGHT UPPER LIMB / Unknown Venipuncture / Unknown 04/17/2024 1:11 PM CDT 04/17/2024 1:24 PM CDT Zhane Crain MD LAB - BLOOD ORDERABLES [facility] [address] * CRP inflammation (04/17/2024 1:11 PM CDT) Only the most recent of6 resultswithin the time period is included. CRP Inflammation <3.00 <5.00 mg/L 04/17/20 7:43 PM CDT [facility] LABORATORY Blood STRUCTURE OF RIGHT UPPER LIMB / Unknown Venipuncture / Unknown 04/17/2024 1:11 PM CDT 04/17/2024 1:24 PM CDT Zhane Crain MD LAB - BLOOD ORDERABLES [facility] LABORATORY [facility] [address] [facility], [address] [phone] * Creatinine (04/17/2024 1:11 PM CDT) Creatinine 0.70 0.51 - 0.95 mg/dL 04/17/2024 7:43 PM CDT [facility] LABORATORY GFR Estimate 88 >60 mL/min/1.7 3m2 04/17/2024 7:43 PM CDT [facility] LABORATORY Comment:eGFR calculated usin 2020 CKD-EPI equation. Blood STRUCTURE OF RIGHT UPPER LIMB / Unknown Venipuncture / Unknown 04/17/2024 1:11 PM CDT 04/17/2024 1:24 PM CDT Zhane Crain MD LAB - BLOOD ORDERABLES [facility] LABORATORY [facility] [address] [facility] [address], [address] * AST (04/17/2024 1:11 PM CDT) Pathologist [facility] AST 42 0 - 45 U/L 04/17/2024 7:4 3 PM CDT [facility] LABORATORY Blood STRUCTURE OF RIGHT UPPER LIMB / Unknown Venipuncture / Unknown 04/17/2024 1:11 PM CDT 04/17/2024 1:24 PM CDT Zhane Crain MD LAB - BLOOD ORDERABLES U LABORATORY [facility] [address] [facility], [address] * (ABNORMAL) ALT (04/17/2024 1:11 PM CDT) Pathologist [facility] ALT 101(H) 0 - 50 U/L 04/17/2024 7:43 PM CDT U LABORATORY Blood STRUCTURE OF RIGHT UPPER LIMB / Unknown Venipuncture / Unknown 04/17/2024 1:11 PM CDT 04/17/2024 1:24 PM CDT Zhane Crain MD LAB - BLOOD ORDERABLES LABORATORY [facility] [address] [facility], [address] * (ABNORMAL) CBC with platelets (04/17/2024 1:11 PM CDT) Only the most recent of5 resultswithin the time period is included. WBC Count 6.2 4.0 - 11.0 10e3/uL [...] LAB - BLOOD ORDERABLES Performing Organization Address City/State/[facility] Co de Phone Number [facility] [address] * (ABNORMAL) Basic metabolic panel (03/26/2024 [...] 8:30 AM CDT [facility] LABORATORY Comment:eGFR calculated us2020 CKD-EPI equation. Calcium 8.3(L) 8.8 - 10.4 [...] LAB - BLOOD ORDERABL ES [facility] LABORATORY [facility] [address] [facility], [address] [phone] * Surgical Pathology Exam (03/25/2024 4:29 PM CDT) Case Report Surgical Pathology Report ? Case: [id number] ? Authorizing Provider: ??Richie Dominguez ? Collected: [...] component of this testing was completed at [facility]. Stain controls for all stains [...] [facility] Specialty Lab [address] [facility] [address] [facility], Room [address] [place] [phone], [facility] UU LABORATORY [facility] [address] [facility], [address] [address], [facility] * ANE AIRWAY ETT PERFORMABLE (03/25/2024 3:23 PM CDT) Narrative Saeed Yuen RN - 03/25/2024 3:23 PM CDT Saeed Yuen RN ? 03/25/2024 ??3:53 PM Airway ? Patient location during procedure: OR ? Procedure Start/Stop Times: 03/25/2024 3:23 PM Staff - ? CUSTOMER ACCOUNT COORDINATOR: Margarita Gracia APRN CRNA ? Other Anesthesia Staff: Saeed Yuen RN ? Performed By: CUSTOMER ACCOUNT COORDINATOR and SRNA Consent for Airway ? Urgency: [...] Time: 03/25/2024 3:23 PM Shari Mckeon MD [place] [facility] * (ABNORMAL) CBC with platelets and [...] LAB - BLO OD ORDERABLES [facility] LABORATORY [facility] Core Lab [address] [facility], [address] [phone] * US Temporal Arteries Duplex (03/24/2024 3:02 PM CDT) Anatomical Region Laterality Modality Vascular, Head Ultrasound Impressions 03/24/2024 3:06 PM CDT IMPRESSION: No halo sign to suggest active inflammation. Right parietal branch 0.3 mm intima medial thickness. Otherwise negative study.. Cristina?reina VS , Tessa A, Rangel S, Jaswant A, [place]. Ultrasound cut-off values for intima-media thickness [...] thickness. Otherwise negative study.. Cristina?reina VS , Juche A, Rangel S, Michaud A, [place]. Ultrasound cut-off values for intima-media thickness of temporal, facial and axillary arteries in giant cell arteritis. Rheumatology 2017;56:1479?83. IMT CUT-OFF VALUES COMMON TEMPORAL ARTERY: 0.42 mm FRONTAL BRANCH: 0.34 mm PARIETAL BRANCH: 0.29 mm MICHAEL SOLIS MD Kristel Acosta MD IMG US ORDERABLES * Interleukin 6 Blood (03/23/2024 11:04 AM CDT) Interleukin 6 Blood <0.70 <3.01 pg/mL LICHA 03/24/2024 2:03 PM CDT [facility] Blood STRUCTURE OF LEFT UPPER LIMB / Unknown Venipuncture / Unknown 03/23/2024 11:04 AM CDT 03/23/2024 11:14 AM CDT Narrative [facility] - 03/24/2024 2:03 PM CDT [...] patient management.

Assayed at [facility], [address] [place] [address] Margarita Crockett MD LAB - BLOOD ORDERABL ES [facility] [address] [place] [address] [place] [address] * CTA Chest with Contrast (03/23/2024 9:01 AM CDT) Anatomical Region Laterality Modality Chest, SUBRAD IR PROCEDURE, UMP CT CTA, RAD CT Computed Tomography Impressions [...] AM CDT Narrative 03/23/2024 10:36 AM CDT [id number]^DIGNA^MARGARITA [facility] Echocardiography Laboratory [address] [place] [address] Name: GATO PARTIDA : 1945 Study Date: 03/23/2024 07:53 AM Age: 78 yrs Gender: Female Patient Location: [facility] Reason For Study: Syncope Ordering Physician: MARGARITA CROCKETT Performed By: Priscila Mann RDCS BSA: 1.6 m2 Height: 60 in Weight: 149 lb BP: 94/48 mmHg Procedure Complete Portable Echo Adult. Contrast Optison. Echocardiogram with two- dimensional, color and spectral Doppler performed. Optison ([facility] #[id number]) given intravenously. Patient was given 5 ml [...] Procedure Note Malaika Dobbins MD - 03/23/2024 [id number]^DIGNA^MARGARITA [facility] E[facility] Laboratory [address] [place] [address] Name: GATO PARTIDA : 1945 Study Date: 03/23/2024 07:53 AM Age: 78 yrs Gender: Female Patient Location: [facility] Reason For Study: Syncope Ordering Physician: MARGARITA CROCKETT Performed By: Priscila Mann RDCS BSA: 1.6 m2 Height: 60 in Weight: 149 lb BP: 94/48 mmHg Procedure Complete Portable Echo Adult. Contrast Optison. Echocardiogram with two- dimensional, color and spectral Doppler performed. Optison ([facility]#[id number]) given intravenously. Patient was given 5 ml [...] Jona Sears MD IMG MRI ORDERABLES * MRA Angiogram Head w/o [...] 03/22/2024 8:38 PM CDT EXAM MRA BRAIN ([place]ER [place]) W/O CONTRAST 03/22/2024 4:41 PM HISTORY: Headache; r/o Giant cell/temporal arteritis; Age > 50 years; No visual symptoms COMPARISON: ??None TECHNIQUE: Using a 3D [id number] image acquisition technique, MRA of the major [...] Bacon MD - 03/22/2024 EXAM MRA BRAIN ([place]) W/O CONTRAST 03/22/2024 4:41 PM HISTORY: Headache; r/o Giant cell/temporal arteritis; Age > 50 years; No visual symptoms COMPARISON: None TECHNIQUE: Using a 3D [id number] image acquisition technique, MRA of the major [...] findings. XI BACON MD Jona Sears MD [facility] MRI ORDERABLES * MR Brain and Orbits [...] [facility] LABORATORY Appearance Urine Clear Clear 03/22/20 24 10:28 AM CDT [facility] LABORATORY Glucose Urine Negative Negative mg/dL 03/22/2024 10:28 AM CDT [facility] LABORATORY Bilirubin Urine Negative Negative 4 10:28 AM CDT [facility] LAB[facility] Ketones Urine Negative Negative mg/dL 03/22/2024 10:28 AM CDT [facility] LABORATORY Specific [place] Urine 1.004 1.003 - 1.035 03/22/2024 10:28 [...] Culture ordered based on laboratory criteria Jona Sears MD LAB - URINE ORDERAB LES [facility] LABORATORY [facility] [address] [facility], [address] [place] [address], [facility] * (ABNORMAL) Urine Culture (03/22/2024 9:44 AM [...] - MICRO GENERAL ORDERABLES U[facility] IDD LABORATORY [facility] Inf. Diseases Diag. Lab [address] [facility], [address] [place] [address] * Lactic Acid Whole Blood with 1X Repeat in 2 HR when >2 (03/22/2024 9:27 AM CDT) Lactic Acid, Initial 1.4 0.7 - 2.0 mmol/L 03/22/2024 9:42 AM CDT [facility] LABORATORY Blood BLOOD SPECIMEN / Unknown Venipuncture / Unknown 03/22/2024 9:27 AM CDT 03/22/2024 9:40 AM CDT Jona Sears MD LAB - BLOOD ORDERAB LES [facility] LABORATORY [facility] [address] [facility], [address] [place] [address] * EKG 12-lead, tracing only (03/22/2024 9:16 AM CDT) Systolic Blood Pressure mmHg RADIOLOGY RESULTS Diastolic Blood Pressure mmHg RADIOLOGY RESULTS Ventricular Rate 70 BPM RAD IOLOGY RESULTS Atrial Rate 70 BPM RADIOLOG Y RESULTS LA Interval 130 ms RADIOLOG Y RESULTS QRS Duration 84 ms RADIOLO GY RESULTS QT 394 ms RADIOLOGY RESULTS QTc 425 ms RADIOLOGY RESULTS P [place] 19 degrees RADIOLOGY RESULTS R AXIS 33 degrees RADIOLOGY RESULTS T [place] 60 degrees RADIOLOGY RESULTS Interpretation ECG Sinus rhythm Normal ECG Unconfirmed report - interpretation of this ECG is computer generated - see medical record for final interpretation Confirmed by - EMERGENCY ROOM, PHYSICIAN ([id number]), managing editor DANIA ACOSTA [id number]) on 03/24/2024 6:54:51 AM RADIOLOGY RESULTS 03/22/2024 9:16 AM CDT 03/24/2024 6:54 AM CDT Jona Sears MD ECG ORDERABLES Performing Organization Address City/[facility]/ZIP Co de Phone Number RADIOLOGY RESULTS * Extra Purple Top Tube (03/22/2024 8:45 AM CDT) Hold Specimen [facility] 03/22/2024 10:32 AM CDT [facility] LAB[facility]ATORY Blood BLOOD SPECIMEN / Unknown Venipuncture / Unknown 03/22/2024 8:45 AM CDT 03/22/2024 9:24 AM CDT Ramya Berry DO LAB - BLOOD ORDERABL ES Performing Organization Address [facility] de Phone Number U LABORATORY [facility] [facility], [address] * Extra Green Top ([place] Heparin) Tube (03/22/2024 8:45 AM CDT) Hold Specimen [facility] 03/22/2024 10:32 AM CDT [facility] Blood BLOOD SPECIMEN / Unknown Venipuncture / Unknown 03/22/2024 8:45 AM CDT 03/22/2024 9:23 AM CDT Ramya Berry DO LAB - BLOOD ORDERABL ES Performing Organization Address City/[facility] de Phone Number U LABORATORY [facility], [address] * Extra Red Top Tube (03/22/2024 8:45 AM CDT) Hold Specimen [facility] 03/22/2024 10:46 AM CDT [facility] Blood BLOOD SPECIMEN / Unknown Venipuncture / Unknown 03/22/2024 8:45 AM CDT 03/22/2024 9:34 AM CDT Ramya Berry DO LAB - BLOOD ORDERABL ES [facility] [address] [facility], [address] * Extra Blue Top Tube (03/22/2024 8:45 AM CDT) Hold Specimen [facility] 03/22/2024 10:32 AM CDT [facility] Blood BLOOD SPECIMEN / Unknown Venipuncture / Unknown 03/22/2024 8:45 AM CDT 03/22/2024 9:24 AM CDT Ramya Jamal CROSS LAB - BLOOD ORDERABL ES Performing Organization Address [facility] de Phone Number LABORATORY [facility] [address] [facility], [address] * Troponin T, High Sensitivity (03/22/2024 [...] LAB - BLOOD ORDERAB LES [facility] [address] [facility], [address] * TSH (03/22/2024 8:45 AM CDT) TSH 2.40 0.30 - 4.20 uIU/mL 03/22/2024 10:19 AM CDT [facility] Blood BLOOD SPECIMEN / Unknown Venipuncture / Unknown 03/22/2024 8:45 AM CDT 03/22/2024 9:23 AM CDT Jona Sears MD LAB - BLOOD ORDERAB LES Performing Organization Address City/[facility]/ZIP Co de Phone Number [facility], [address] * INR (03/22/2024 8:45 AM CDT) INR 0.91 0.85 - 1.15 03/22/2024 9:50 AM CDT [facility] Blood BLOOD SPECIMEN / Unknown Venipuncture / Unknown 03/22/2024 8:45 AM CDT 03/22/2024 9:24 AM CDT Jona Sears MD LAB - BLOOD ORDERAB LES Performing Organization Address City/[facility]/ZIP Co de Phone Number [facility] [address] [facility], [address] * Partial thromboplastin time (03/22/2024 8:45 AM CDT) aPTT 33 22 - 38 Seconds 03/22/2024 9:50 AM CDT [facility] Blood BLOOD SPECIMEN / Unknown Venipuncture / Unknown 03/22/2024 8:45 AM CDT 03/22/2024 9:24 AM CDT Jona Sears MD LAB - BLOOD ORDERAB LES [facility] [address] [facility], [address] [phone] * Nt probnp inpatient (BNP) (03/22/2024 8:45 AM CDT) N terminal Pro BNP Inpatient 523 0 - 1,800 pg/mL 03/22/2024 10:19 AM CDT U LABORATORY Comment: Reference range shown and results [...] - BLOOD ORDERAB LES Performing Organization Address City/[facility]/ZIP Co de Phone Number LABORATORY [facility] [address] [facility], [address] [phone], [place] * Magnesium (03/22/2024 8:45 AM CDT) Pathologist [facility] Magnesium 1.9 1.7 - 2.3 mg/dL 03/22/2024 10:19 AM CDT [facility] Blood BLOOD SPECIMEN / Unknown Venipuncture / Unknown 03/22/2024 8:45 AM CDT 03/22/2024 9:23 AM CDT Jona Sears MD LAB - BLOOD ORDERAB LES [facility] [address] [facility], [address] [phone] * (ABNORMAL) Comprehensive metabolic panel (03/22/2024 8:45 [...] 10:19 AM CDT [facility] Comment:eGFR calculated usin 2020 CKD-EPI equation. Calcium 9.4 8.8 - [...] LAB - BLOOD ORDERAB LES [facility] [address] [facility], [address] [place] [address], [facility] from Last 3 Months Advance Directives For more information, please contact: [phone] * Full Code (Latest Code Status on [...] patie nt/ legal decision maker Care Teams Railcar Mechanic Relationship Specialty Start Date End Date Feliciano Uribe MD [address] [address] PCP - General Family Medicine 06/01/23 Christina Roe PA-C [address] [place] [address] Physician Lead Programmer Rheumatology 11/06/23 Christina Roe PA-C [address] [place] [address] Assigned Rheumatology Provider 11/09/23 Richie Rowell RPH [address] [place] [address] [phone] Pharmacist Pharmacist 04/08/24 Richie Rowell RPH [address] [place] [address] [phone] Assigned MTM Pharmacist 04/18/24 Zhane Crain MD [address] [place] [address] Physician Rheumatology 05/14/24
--- OUTSIDE RECORDS SUMMARY | 2024-05-16 13:14 | XMS_ITS | Encounter Summary ---
Author Organization [place] Address [address] [place] [address]. [place] [address] Care Team Providers Care Tax Lawyer Name Role Phone Feliciano Uribe MD Primary Care Provider Christina Roe PA-C Unavailable Christina Roe PA-C Unavailable [phone] Richie Rowell [facility] Unavailable Richie Rowell [facility] Unavailable Reason for Visit * Reason Onset Date Comments Previsit 05/07/2024 Encounter Details Date Type Department Care Team (Late st Contact Info) Description 05/07/2024 PRE VISIT [facility] - [address] [address] Saeed Berry MD [address] [place] [address] Previsit Social History Tobacco Use Types Packs/Day Years [...] encounter Miscellaneous Notes * Telephone Encounter - Marialuisa Hollins - 04/02/2024 7:42 AM CDT FUTURE VISIT INFORMATION FUTURE VISIT INFORMATION: Date: 05/07/2024 Time: 8 AM Location: [facility] REFERRAL INFORMATION: Referring provider: Self-Referred Referring providers clinic: N/A Reason for visit/diagnosis: v/t/gtop/rnfl RECORDS REQUESTED FROM: Clinic name Comments Records Status Imaging Status [facility] 03/22/24 - Admission with Dr. Yuan * 03/25/24 - EYE OV with Dr. Kelly * 03/24/24, 03/23/24 - EYE OV with Dr. Canales * 03/22/24 - EYE OV with Dr. Anderson [facility] 03/20/24 - RHEUM OV with [facility] - Imaging 03/22/24 - CTV Head/Neck 03/22/24 - MRA Brain COW 03/22/24 - MRI Brain/Orbits [facility] PACs documented in this encounter Plan of Treatment Upcoming Encounters Date Type Department Care Team (Late st Contact Info) Description 05/20/2024 9:30 AM CDT Virtual Visit [facility] 1600 [facility] [address] [place] [phone] Zhane Crain MD 500 [place], [place] [phone] Richie Rowell, [facility] [address] [place] [address] 07/31/2024 2:00 PM SPRING UPHOLSTERER Office Visit [facility] [address] [facility] [address] [place] [phone] Christina Roe PA-C [address] [place] [address] documented as of this encounter Visit Diagnoses Not on filedocumented in this encounter Care Teams Tax Lawyer Relationship Specialty Start Date End Date Feliciano Uribe MD [address] [address] PCP - General Family Medicine 06/01/23 Christina Roe PA-C [address] [place] [address] Physician Wood Heel Flap Inserter Rheumatology 11/06/23 Christina Roe PA-C [address] [place] [address] Assigned Rheumatology Provider 11/09/23 Richie Rowell RPH [address] [place] [address] Pharmacist Pharmacist 04/08/24 Richie Rowell RPH [address] [place] [address] Assigned MTM Pharmacist 04/18/24 documented as of this encounter
--- OUTSIDE RECORDS SUMMARY | 2024-05-16 13:14 | XMS_ITS | Encounter Summary ---
Author Organization [place] Address [address] [place] [address] Care Team Providers Care Metaphysicist Name Role Phone Feliciano Uribe MD Primary Care Provider Christina Roe PA-C Unavailable [phone] Christina Roe PA-C Unavailable [phone] Richie Rowell [facility] Unavailable Richie Rowell [facility] Unavailable Encounter Details Date Type Department Care Team (Latest Contact Info) Description 05/07/2024 Travel Social History Tobacco Use Types Packs/Day [...] Description 05/20/2024 9:30 AM CDT Virtual Visit [facility] [address] [facility] [address] [place] [address] Zhane Crain MD [address] [place] [address]005 Richie Rowell RP [address] [place] [address] 07/31/2024 2:00 PM FORMING 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 Office Visit [facility] [address] [facility] 200 [place] [phone] Christina Roe PA-C [address] [place] [address] documented as of this encounter Visit Diagnoses Not on filedocumented in this encounter Care Teams Metaphysicist Relationship Specialty Start Date End Date Feliciano Uribe MD [address] [address] PCP - General Family Medicine 06/01/23 Christina Roe PA-C [address] [place] [address] Physician Fbi Special Agent Rheumatology 11/06/23 Christina Roe PA-C [address] [place] [address] Assigned Rheumatology Provider 11/09/23 Richie Rowell RPH [address] [place] [address] Pharmacist Pharmacist 04/08/24 Richie Rowell RPH [address] [place] [address] Assigned MTM Pharmacist 04/18/24 documented as of this encounter
--- OUTSIDE RECORDS SUMMARY | 2024-05-16 13:14 | XMS_ITS | Encounter Summary ---
Author Organization [place] Address [address] [place] [address]. [place] [address] Care Team Providers Care Clothing Busheler Name Role Phone Feliciano Uribe MD Primary Care Provider [phone] Christina Roe PA-C Unavailable Christina Roe PA-C Unavailable Richie Rowell [facility] Unavailable Richie Rowell [facility] Unavailable Encounter Details Date Type Department Care Team (Late st Contact Info) Description 05/06/2024 [facility] - [address] [place] [address] Saeed Berry MD [address] [place] [address] Visual field defect (Primary Dx) Social History Tobacco Use Types [...] Description 05/20/2024 9:30 AM CDT Virtual Visit [facility] [address] [facility] [address] [place] [phone] Zhane Crain MD 500 [place] [address] SorinRichie page, [facility] [address] [place] [address] 07/31/2024 2:00 PM BIOCHEMISTRY PROFESSOR Office Visit [facility] [address] [facility] [address] [place] [address] Christina Roe PA-C [address] [place] [address] documented as of this encounter Results * OCT Optic Nerve RNFL Spectralis [...] Glaucoma Top OU (05/07/2024 8:22 AM CDT) Saeed Pastrana MD - 05/07/2024 8:22 AM CDT Performed by: BD . Good fix BE, not dilated. Right Eye Reliability of the test: Good . Findings: Arcuate scotoma . Interpretation: Abnormal . Interval: Initial . Left Eye Reliability of the test: Good . Findings: Arcuate scotoma . Interpretation: Abnormal . Interval: Initial . Saeed Berry MD OPHTHALMOLOGY documented in this encounter Visit Diagnoses Diagnosis Visual field defect- Primary Visual field defect, unspecified Arcuate scotoma of both eyes- Primary documented in this encounter Care Teams Clothing Busheler Relationship Specialty Start Date End Date Feliciano Uribe MD [facility] - [address] [address] PCP - General Family Medicine 06/01/23 Christina Roe PA-C [address] [place] [address] Physician Biochemistry Professor Rheumatology 11/06/23 Christina Roe PA-C [address] [place] [address] Assigned Rheumatology Provider 11/09/23 Richie Rowell RPH [address] [place] [address] [phone] Pharmacist Pharmacist 04/08/24 Richie Rowell RPH [address] [place], [place] [phone] Assigned MTM Pharmacist 04/18/24 documented as of this encounter
--- OUTSIDE RECORDS SUMMARY | 2024-05-16 13:14 | XMS_ITS | Encounter Summary ---
Author Organization [place] Address [address] [place] [address] Care Team Providers Care Life Sciences Teacher Name Role Phone Feliciano Uribe MD Primary Care Provider [phone] Christina Roe PA-C Unavailable Christina Roe PA-C Unavailable Richie Rowell Justine Unavailable Richie Rowell [facility] Unavailable Zhane Crain MD Unavailable Encounter Details Date Type Department Care Team (Late st Contact Info) Description 05/06/2024 [facility] Medical Advice [address] [place] [address] Christina Roe PA-C [address] [place] [address] Social History Tobacco Use Types Packs/Day Years [...] Description 05/20/2024 9:30 AM CDT Virtual Visit [facility] [address] [facility] [address] [place] [phone] Zhane Crain MD [address] [place] [address] Richie Rowell RPH [address] [place] [address] 07/31/2024 2:00 PM CHILDRENS CLUB ATTENDANT Office Visit [facility] [address] [facility] 200 [place] [phone] Christina Roe PA-C [address] [place] [address] documented as of this encounter Visit Diagnoses Not on filedocumented in this encounter Care Teams Life Sciences Teacher Relationship Specialty Start Date End Date Feliciano Uribe MD [facility] [address] [place] [address] PCP - General Family Medicine 06/01/23 Christina Roe PA-C [address] [place] [address] Physician Nurse Substance Abuse Rheumatology 11/06/23 Christina Roe PA-C [address] [place] [address] Assigned Rheumatology Provider 11/09/23 Richie Rowell Justine [address] [place] [address] Pharmacist Pharmacist 04/08/24 Richie Rowell RPH [address] [place] [address] Assigned MTM Pharmacist 04/18/24 Zhane Crain MD 500 [place] [address] Physician Rheumatology 05/14/24 documented as of this encounter
--- OUTSIDE RECORDS SUMMARY | 2024-05-16 13:14 | XMS_ITS | Encounter Summary ---
Author Organization [place] Address [address] [place] [address] Care Team Providers Care Hardboard Press Operator Name Role Phone Feliciano Uribe MD Primary Care Provider Christina Roe PA-C Unavailable Christina Roe PA-C Unavailable Richie Rowell [facility] Unavailable Richie Rowell [facility] Unavailable Zhane Crain MD Unavailable Encounter Details Date Type Department Care Team (Late st Contact Info) Description 05/02/2024 [facility] Medical Advice [facility] [address] [place] [phone] Adalberto Boles Social History Tobacco Use Types Packs/Day Years [...] 05/20/2024 9:30 AM CDT Virtual Visit [facility] [address] [facility] [address] [place] [phone] Zhane Crain MD 500 [place] [address] Richie Rowell RPH [address] [place] [address] 07/31/2024 2:00 PM LABORER BITUMINOUS PAVING Office Visit [facility] [address] [facility] [address] [place] [phone] Christina Roe PA-C [address] [place] [address] documented as of this encounter Visit Diagnoses Not on filedocumented in this encounter Care Teams Hardboard Press Operator Relationship Specialty Start Date End Date Feliciano Uribe MD [facility] [address] [place] [address] PCP - General Family Medicine 06/01/23 Christina Roe PA-C [address] [place] [address] Physician Laboratory Aide Rheumatology 11/06/23 Christina Roe PA-C [address] [place] [address] Assigned Rheumatology Provider 11/09/23 Richie Rowell RPH [address] [place] [address] Pharmacist Pharmacist 04/08/24 Richie Rowell RPH [address] [place] [address] Assigned [place] Pharmacist 04/18/24 Zhane Crain MD [address] [place] [address] Physician Rheumatology 05/14/24 documented as of this encounter
--- OUTSIDE RECORDS SUMMARY | 2024-05-16 13:14 | XMS_ITS | Encounter Summary ---
Author Organization [place] Address [address] [place] [address] Care Team Providers Care Supervisor Print Line Name Role Phone Feliciano Uribe MD Primary Care Provider Christina Roe PA-C Unavailable [phone] Christina Roe PA-C Unavailable Richie Rowell [facility] Unavailable Richie Rowell [facility] Unavailable Zhane Crain MD Unavailable Encounter Details Date Type Department Care Team (Late st Contact Info) Description 05/09/2024 MyC Medical Advice [facility] [address] [place] [phone] Adalberto Boles Social History Tobacco Use [...] Description 05/20/2024 9:30 AM CDT Virtual Visit [facility] 1600 [facility] [address] [place] [phone] Zhane Crain MD 500 [place] [address] Richie Rowell RPH [address] [place] [address] 07/31/2024 2:00 PM STORE SALES CONSULTANT Office Visit [facility] [address] [facility] [address] [place] [phone] Christina Roe PA-C [address] [place] [address] documented as of this encounter Visit Diagnoses Not on filedocumented in this encounter Care Teams Supervisor Print Line Relationship Specialty Start Date End Date Feliciano Uribe MD [facility] [address] [place] [address] PCP - General Family Medicine 06/01/23 Christina Roe PA-C [address] [place] [address] Physician Pressing Machine Operator Rheumatology 11/06/23 Christina Roe PA-C [address] [place] [address] Assigned Rheumatology Provider 11/09/23 Richie Rowell RPH [address] [place] [address] Pharmacist Pharmacist 04/08/24 Richie Rowell RPH [address] [place] [address] Assigned [place] Pharmacist 04/18/24 Zhane Crain MD [address] [place] [address] Physician Rheumatology 05/14/24 documented as of this encounter
--- OUTSIDE RECORDS SUMMARY | 2024-05-16 13:14 | XMS_ITS | Encounter Summary ---
Author Organization [place] Address [address] [place] [address] Care Team Providers Care Lease Picker Name Role Phone Feliciano Uribe MD Primary Care Provider Christina Roe PA-C Unavailable Christina Roe PA-C Unavailable Richie Rowell [facility] Unavailable Richie Rowell [facility] Unavailable Zhane Crain MD Unavailable Reason for Visit * Reason Onset Date Comments Orders 05/13/2024 Encounter Details Date Type Department Care Team (Late st Contact Info) Description 05/13/2024 Telephone [facility] [address] [facility] [address] [place] [address] Zhane Crain MD [address] [place] [address] Orders Social History Tobacco Use Types Packs/Day Years [...] encounter Miscellaneous Notes * Telephone Encounter - Alba Vick RP - 05/15/2024 8:15 AM CDT Patient contacted clinic and prefers pre-filled syringes. Will resend preferred product via [facility] CPAwith Dr. Crain. Alba Vick PharmD Medication Therapy Management Pharmacist [facility] * Telephone Encounter - Richie Rowell RPH - 05/13/2024 1:47 PM CDT Actemra reordered per CPA with Dr. Crain. Richie Rowell PharmD Medication Therapy Management Pharmacist [facility] * Addendum Note - Alba Vick RPH - 05/13/2024 1:47 PM CDTAddended by: ALBA VICK on: 05/15/2024 08:24 AM Modules accepted: Orders documented in this encounter Plan of Treatment Upcoming Encounters Date Type Department Care Team (Late st Contact Info) Description 05/20/2024 9:30 AM CDT Virtual Visit [facility] [address] [facility] [address] [place] [phone] Zhane Crain MD [address] [place], [place] [address] Richie Rowell RPH [address] [place] [address] 07/31/2024 2:00 PM REMANUFACTURING TECHNICIAN Office Visit [facility] [address] [facility] [address] [place] [phone] Christina Roe PA-C [address] [place] [address] documented as of this encounter Visit Diagnoses Diagnosis GCA (giant cell arteritis)- Primary Giant cell arteritis documented in this encounter Care Teams Lease Picker Relationship Specialty Start Date End Date Feliciano Uribe MD [address] [address] PCP - General Family Medicine 06/01/23 Christina Roe PA-C [address] [place] [address] Physician Financial Controller Rheumatology 11/06/23 Christina Roe PA-C [address] [place] [address] Assigned Rheumatology Provider 11/09/23 Richie Rowell RPH [address] [place] [address] Pharmacist Pharmacist 04/08/24 Richie Rowell Justine [address] [place] [address] Assigned MTM Pharmacist 04/18/24 Zhane Crain MD [address] [place] [address] Physician Rheumatology 05/14/24 documented as of this encounter
--- OUTSIDE RECORDS SUMMARY | 2024-05-16 13:14 | XMS_ITS | Encounter Summary ---
Author Organization [place] Address [address] [place] [address] Care Team Providers Care Shaping Machine Operator Name Role Phone Feliciano Uribe MD Primary Care Provider Christina Roe PA-C Unavailable Christina Roe PA-C Unavailable Richie Rowell Justine Unavailable Richie Rowell [facility] Unavailable Zhane Crain MD Unavailable Encounter Details Date Type Department Care Team (Late st Contact Info) Description 05/13/2024 [facility] Medical Advice [address] [place] [address] Christina Roe PA-C [address] [place] [address] Social History Tobacco Use Types Packs/Day Years [...] Description 05/20/2024 9:30 AM CDT Virtual Visit [facility] [address] [facility] [address] [place] [phone] Zhane Crain MD [address] [place] [address] Richie Rowell RPH [address] [place] [address] 07/31/2024 2:00 PM FINANCIAL PLANNING ASSISTANT Office Visit [facility] 2945 [facility] 200 [place] [phone] Christina Roe PA-C [address] [place] [address] documented as of this encounter Visit Diagnoses Not on filedocumented in this encounter Care Teams Shaping Machine Operator Relationship Specialty Start Date End Date Feliciano Uribe MD [facility] [address] [place] [address] PCP - General Family Medicine 06/01/23 Christina Roe PA-C [address] [place] [address] Physician Internet Marketing Intern Rheumatology 11/06/23 Christina Roe PA-C [address] [place] [address] Assigned Rheumatology Provider 11/09/23 Richie Rowell Justine [address] [place] [address] Pharmacist Pharmacist 04/08/24 Richie Rowell RPH 909 [place] [address] Assigned MTM Pharmacist 04/18/24 Zhane Crain MD 500 [place] [address] Physician Rheumatology 05/14/24 documented as of this encounter
--- OUTSIDE RECORDS SUMMARY | 2024-05-16 13:14 | XMS_ITS | Encounter Summary ---
Author Organization [facility] Address [address] [place] [address] Care Team Providers Care Database Administration Manager Name Role Phone Feliciano Uribe MD Primary Care Provider [phone] Christina Roe PA-C Unavailable [phone] Christina Roe PA-C Unavailable Richie Rowell [facility] Unavailable Richie Rowell [facility] Unavailable Zhane Crain MD Unavailable Reason for Visit * Reason Onset Date Comments Medication Question 05/09/2024 Tocilizumab (ACTEMRA ACTPEN) 162 MG/0.9ML SOAJ Encounter Details Date Type Department Care Team ([facility] st Contact Info) Description 05/09/[address] [place] [address] Zhane Crain MD [address] [place] [address] Medication Question (Tocilizumab (ACTEMRA ACTPEN) 162 MG/0.9ML SOAJ /) Social History Tobacco Use Types Packs/Day Years [...] encounter Miscellaneous Notes * Telephone Encounter - Jen Ferreira RN - 05/15/2024 10:12 AM CDT I called LM informing that the requested RX was sent and to contact the pharmacy. * Telephone Encounter - Xiomara Wilcox CMA - 05/14/2024 4:25 PM CDT Call back received from pt: she reports that she never actually received this prescription before (there was a prescription that was written for her, but due to insurance and other issues, she was never able to actually pick it up). She is slightly familiar with these two injection types because Richie Rowell [facility] briefly showed her the two options, and she feels like it would be easier for to go with the prefilled syringes. Says she has had to give herself injections of blood thinners in the past, so that is the method she is more familiar with. * Telephone Encounter - Sherrill Baum RN - 05/14/2024 4:01 PM CDT LM for pt to clarify if pt had a preference on prefilled syringe or auto injector. * Telephone Encounter - Radha Nava - 05/14/2024 3:03 PM CDT Patient returning call, no answer on priority line. Please follow-up. Thank you. * Telephone Encounter - Sherrill Baum RN - 05/14/2024 2:14 PM CDT LM for pt to c/b- does pt have a preference on prefilled or pen. * Telephone Encounter - Radha Nava - 05/09/2024 3:55 PM CDT [facility] Phone Message May a detailed message be left on voicemail: yes Reason for Call: Medication Question or concern regarding medication Prescription Clarification Name of Medication: Tocilizumab (ACTEMRA ACTPEN) 162 MG/0.9ML SOAJ Prescribing Provider: Zhane Crain MD Pharmacy: [facility] - [address] What on the order needs clarification? States pt previously used the prefilled syringe, instead of the auto injectors. They are calling to clarify the provider would like the change. Action Taken: Other: Rheum Travel Screening: Not Applicable Date of Service: 05/09/24 documented in this encounter Plan of Treatment Upcoming Encounters Date Type Department Care Team (Late st Contact Info) Description 05/20/2024 9:30 AM CDT Virtual Visit [facility] [address] [facility] [address] [place] [phone] Zhane Crain MD [address] [place] [address] Richie Rowell, [facility] [address] [place] [address] 07/31/2024 2:00 PM DIRECTOR DANCE Office Visit [facility] [address] [facility] [address] [place] [phone] Christina Roe PA-C [address] [place] [address] documented as of this encounter Visit Diagnoses Not on filedocumented in this encounter Care Teams Database Administration Manager Relationship Specialty Start Date End Date Feliciano Uribe MD [address] [address] PCP - General Family Medicine 06/01/23 Christina Roe PA-C [address] [place] [address] Physician Bonding Machine Setter Rheumatology 11/06/23 Christina Roe PA-C [address] [place] [address] Assigned Rheumatology Provider 11/09/23 Richie Rowell RPH [address] [place], [place] [phone] Pharmacist Pharmacist 04/08/24 Richie Rowell RPH [address] [place] [address] [phone] Assigned MTM Pharmacist 04/18/24 Zhane Crain MD [address] [place] [phone] Physician Rheumatology 05/14/24 documented as of this encounter
--- OUTSIDE RECORDS SUMMARY | 2024-05-16 13:14 | XMS_ITS | Encounter Summary ---
Author Organization [facility] Address [address] [place] [address]. [place] [address] Care Team Providers Care Doll Maker Name Role Phone Feliciano Uribe MD Primary Care Provider [phone] Christina Roe PA-C Unavailable [phone] Christina Roe PA-C Unavailable Richie Rowell [facility] Unavailable Richie Rowell [facility] Unavailable Reason for Visit * Reason Comments Consult For Giant Cell Arteritis Encounter Details Date Type Department Care Team (Late st Contact Info) Description 05/07/2024 8:00 AM CDT Office Visit [facility] - [address] [address] Saeed Berry MD [address] [place] [address] Arcuate scotoma of both eyes (Primary Dx) Social History Tobacco Use Types [...] on file documented as of this encounter Progress Notes * Saeed Berry MD - 05/07/2024 8:00 AM CDT Images from the original note were not included. Assessment & Plan Gato Jimenez is a 79 year old female with the following diagnoses: 1. Arcuate scotoma of both eyes Patient was sent for consultation by Dr. Dickson for Anterior ischemic optic neuropathy (AION). HPI: She has a history of Polymyalgia rheumatica with normal c-reactive protein and sedimentation rate on fluctuating doses of prednisone. She developed headache, double vision, and vision loss RIGHT eye on 03/13/24 while on prednisone 5 mg/day. She feels as if the LEFT eye is normal. [facility] on [facility]24 with 20/70 visual acuity in the RIGHT eye, sedimentation rate was 4, and c- reactive protein was < 3. She had some headache at that time, she had jaw claudication, she had scalp tenderness. These have improved significantly with corticosteroids. She was given intravenous steroids, underwent an MRI, and a temporal artery biopsy bilaterally. This was negative for Giant cell arteritis. 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 Her vision never worsened in the RIGHT eye. Independent historians: Patient Review of outside testing: MRI 03/22/24 My interpretation performed today of outside testing: No evidence of optic nerve enhancement or optic nerve sheath enhancement or internal carotid arterywall enhancement or temporal artery wall enhancement. Review of outside clinical notes: Filipe Dickson MD notes. I have reviewed the documentation from Dr. Monroy and Dr. Anderson and agree with the assessment and plan. I have not examined the patient myself. This patient with a history of polymyalgia rheumatica presents with symptoms highly suggestive of giant cell arteritis and vision loss in a pattern indicative of ischemic optic neuropathy. Agree with decision to treat her with high-dose corticosteroids and obtaining an urgent temporal artery biopsy. Patient will need to remain on high-dose corticosteroids pending her biopsy results. Long- term management will fall to her cut out stitcher and patient would likely benefit from Actemra if she is a candidate and her insurance will approve. 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 Her sister had coronary heart disease. Exam: Visual acuity is 20/20 both eyes. Color vision is 10/11 both eyes. Pupils are normal. Tests ordered and interpreted today: Visual field show very shallow arcuate scotomata both eyes. Retinal nerve fiber layer is normal both eyes. Ganglion cell layer is normal both eyes 0.99 RIGHT eye and 1.03 LEFT eye. Discussion of management / interpretation with another provider: None Assessment/Plan: It is my impression that patient experienced changes to her vision in the RIGHT eye. She was noted to have a right afferent pupillary defect and mild optic disc edema RIGHT eye. Today, her visual acuity is 20/20 with a relatively normal visual field and normal retinal nerve fiber layer and ganglioncell layer. While it is possible that she experienced Anterior ischemic optic neuropathy (AION), itis not 100% clear that this was the case in the absence of retinal nerve fiber layer or ganglion cell layer loss. I have seen cases of choroidal ischemia causing vision loss that was reversible with steroids. In the absence of a fluorescein angiogram, one cannot make that diagnosis. Her story of jaw claudication in the setting of Polymyalgia rheumatica is concerning for Giant cell arteritis. In either case, she appears to be doing extremely well. I am always happy to see Gato back for new concerns but I did not make a follow up appointment for her today. Attending Physician Attestation: Complete documentation of historical and exam elements from today's encounter can be found in the full encounter summary report (not reduplicated in this progress note). I personally obtained the chief complaint(s) and history of present illness. I confirmed and edited as necessary the review of systems, past medical/surgical history, family history, social history, and examination findings as documented by others; and I examined the patient myself. I personallyreviewed the relevant tests, images, and reports as documented above. I formulated and edited as necessary the assessment and plan and discussed the findings and management plan with the patient and family. - Saeed Berry MD documented in this encounter Nursing Notes * Faith Miles COT - 05/07/2024 8:00 AM CDT Chief Complaints and History of Present Illnesses Patient presents with Consult For Giant Cell Arteritis Chief Complaint(s) and History of Present Illness(es) Consult For Laterality: both eyes Associated symptoms: dryness and eye pain (dry eye related per pt). Negative for headache and photophobia Treatments tried: artificial tears Pain scale: 0/10 Comments: Giant Cell Arteritis Comments She tells me that the shadowing she sees with her right eye is starting to resolve. The shadowing had started at the end of February. She typically does not get headaches, only had head pain at the time of her hospitalization. WOLFGANG Holley 7:30 AM May 07, 2024 documented in this encounter Plan of Treatment Upcoming Encounters Date Type Department Care Team (Late st Contact Info) Description 05/20/2024 9:30 AM CDT Virtual Visit [facility] [address] [facility] [address] [place] [phone] Zhane Crain MD [address] [place] [address] Richie Rowell, [facility] [address] [place] [address] 07/31/2024 2:00 PM PYROTECHNICS PRESS TENDER Office Visit [facility] [address] [facility] [address] [place] [phone] Christina Roe PA-C [address] [place] [address] documented as of this encounter Procedures Procedure Name Priority Date/Time Associated Diagnosis Comments OCT OPTIC NERVE RNFL SPECTRALIS OU (BOTH EYES) Routine 05/07/2024 8:22 AM CDT GLAUCOMA TOP OU Routine 05/07/2024 8:22 AM CDT documented in this encounter Results * OCT Optic Nerve [...] documented in this encounter Visit Diagnoses Diagnosis Arcuate scotoma of both eyes- Primary documented in this encounter Care Teams Doll Maker Relationship Specialty Start Date End Date Feliciano Uribe MD [facility] - [address] [address] PCP - General Family Medicine 06/01/23 Christina Roe PA-C [address] [place] [address] Physician Office Rn Rheumatology 11/06/23 Christina Roe PA-C [address] [place] [address] Assigned Rheumatology Provider 3/15/24 Richie Rowell RPH [address] [place], [place] [address] Pharmacist Pharmacist 04/08/24 Richie Rowell RPH [address] [place], [place] [address]405 Assigned [place] Pharmacist 04/18/24 documented as of this encounter
--- OUTSIDE RECORDS SUMMARY | 2024-05-16 13:14 | XMS_ITS | Encounter Summary ---
Author Organization [facility] Address [address] [place] [address] Care Team Providers Care Train Gateman Name Role Phone Feliciano Uribe MD Primary Care Provider Christina Roe PA-C Unavailable Christina Roe PA-C Unavailable Richie Rowell [facility] Unavailable Richie Rowell [facility] Unavailable Reason for Visit * Diagnostic Imaging Ultrasound (Routine) - Pending Review Specialty Diagnoses / Procedures Referred By Amena prasad Referred To Contact Radiology. Diagnoses GCA (giant cell arteritis) Pain in right lower leg Procedures US Lower Extremity Venous Duplex Right Zhane Crain MD [address] [place] [address] Referral ID Status Reason Start Date Expiration Date V isits Requested Visits Authorized [id number] Pending Review 04/17/2024 04/17/2025 3 3 Encounter Details Date Type Department Care Team (Latest Contact Info) Description 04/22/2024 2:20 PM CDT Ancillary Procedure [facility] [address] [place] [phone] Zhane Crain MD [address] [place] [address] GCA (giant cell arteritis) (H); Pain in right lower leg Social History Tobacco Use Types Packs/Day Years [...] Description 05/20/2024 9:30 AM CDT Virtual Visit [facility] [address] [facility] [address] [place] [phone] Zhane Crain MD [address] [place] [address] Richie Rowell, [facility] [address] [place] [address] 07/31/2024 2:00 PM MAINTENANCE WORKER HOUSE TRAILER Office Visit [facility] [address] [facility] [address] [place] [phone] Christina Roe PA-C [address] [place] [address] documented as of this encounter Procedures Procedure Name Priority Date/Time Associated Diagnosis Comments US LOWER EXTREMITY VENOUS DUPLEX RIGHT STAT 04/22/2024 2:35 PM CDT GCA (giant cell arteritis) (H) Pain in right lower leg documented in this encounter Results * US Lower Extremity Venous Duplex Right (04/22/2024 2:35 PM CDT) Anatomical Region Laterality Modality Lower Extremity Ultrasound 04/22/2024 2:35 PM CDT Impressions 04/22/2024 2:41 PM CDT IMPRESSION: 1. ??No deep venous thrombosis in the right lower extremity. Narrative 04/22/2024 2:41 PM CDT EXAM: US LOWER EXTREMITY VENOUS DUPLEX RIGHT LOCATION: [facility] DATE: 04/22/2024 INDICATION: ??GCA (giant cell arteritis) [...] US LOWER EXTREMITY VENOUS DUPLEX RIGHT LOCATION: [facility] DATE: 04/22/2024 INDICATION: GCA (giant cell arteritis) [...] the right lower extremity. Zhane Crain MD [facility] documented in this encounter Visit Diagnoses Diagnosis GCA (giant cell arteritis) Giant cell arteritis Pain in right lower leg documented in this encounter Care Teams Train Gateman Relationship Specialty Start Date End Date Feliciano Uribe MD [facility] [place] [address] PCP - General Family Medicine 06/01/23 Christina Roe PA-C [address] [place] [address] Physician Channel Opener Rheumatology 11/06/23 Christina Roe PA-C [address] [place] [address] Assigned Rheumatology Provider 11/09/23 Richie Rowell RPH [address] [place], [place] [phone] Pharmacist Pharmacist 04/08/24 Richie Rowell RPH [address] [place] [address] Assigned MTM Pharmacist 04/18/24 documented as of this encounter
--- OUTSIDE RECORDS SUMMARY | 2024-05-16 13:14 | XMS_ITS | Encounter Summary ---
Author Organization [facility] Address [address] [place] [address] Care Team Providers Care Curtain Supervisor Name Role Phone Feliciano Uribe MD Primary Care Provider [phone] Christina Roe PA-C Unavailable Christina Roe PA-C Unavailable Richie Rowell [facility] Unavailable Richie Rowell [facility] Unavailable Zhane Crain MD Unavailable Encounter Details Date Type Department Care Team (Late st Contact Info) Description 04/23/2024 [facility] Medical Advice [address] [place] [address] Zhane Crain MD [address] [place] [address] Social History Tobacco Use Types Packs/Day Years [...] encounter Miscellaneous Notes * Telephone Encounter - Mayra Jasso RN - 04/23/2024 12:12 PM CDT Per 04/17/24 OV: -Once < 20mg of prednisone daily obtain flu shot and ensure up to date on pneumonia, Shingles, RSV, and COVID vaccines. (Discussed with patient today) Per lab comments: OK to start Actemra documented in this encounter Plan of Treatment Upcoming Encounters Date Type Department Care Team (Late st Contact Info) Description 05/20/2024 9:30 AM CDT Virtual Visit [facility] [address] [facility] [address] [place] [phone] Zhane Crain MD [address] [place] [address] [facility] 9[address] [place] [address] 07/31/2024 2:00 PM REMOTE INPATIENT CODER Office Visit [facility] [address] [facility] [address] [place] [phone] Christina Roe PA-C [address] [place] [address] documented as of this encounter Visit Diagnoses Not on filedocumented in this encounter Care Teams Curtain Supervisor Relationship Specialty Start Date End Date Feliciano Uribe MD [facility] [address] [place] [address] PCP - General Family Medicine 06/01/23 Christina Roe PA-C [address] [place] [address] [place] [address] Physician Herbarium Curator Rheumatology 11/06/23 Christina Roe PA-C [address] [place] [address] Assigned Rheumatology Provider 11/09/23 Richie Rowell RPH [address] [place] [address] Pharmacist Pharmacist 04/08/24 Richie Rowell RPH [address] [place] [address] Assigned MTM Pharmacist 04/18/24 Zhane Crain MD [address] [place] [address] Physician Rheumatology 05/14/24 documented as of this encounter
--- OUTSIDE RECORDS SUMMARY | 2024-05-16 13:14 | XMS_ITS | Encounter Summary ---
Author Organization [facility] Address [address] [place] [address]. [place] [address] Care Team Providers Care Sheeting Puller Name Role Phone Feliciano Urbie MD Primary Care Provider Christina Roe PA-C Unavailable Christina Roe PA-C Unavailable Richie Rowell [facility] Unavailable Richie Rowell [facility] Unavailable Encounter Details Date Type Department Care Team (Late st Contact Info) Description 05/02/2024 [facility] - [address] [place] [address] Saeed Berry MD [address] [place] [address] Social History Tobacco Use Types Packs/Day Years [...] CDT Virtual Visit [facility] [address] [facility] [address] [place] [phone] Zhane Crain MD [address] [place] [address] Richie Rowell RPH [address] [place] [address] 07/31/2024 2:00 PM DESIGN TEACHER Office Visit [facility] [address] [facility] [address] [place] [phone] Christina Roe PA-C [address] [place] [address] documented as of this encounter Visit Diagnoses Not on filedocumented in this encounter Care Teams Sheeting Puller Relationship Specialty Start Date End Date Feliciano Uribe MD [facility] [address] [place] [address] PCP - General Family Medicine 06/01/23 Christina Roe PA-C [address] [place] [address] Physician Production Line Operator Rheumatology 11/06/23 Christina Roe PA-C [address] [place] [address] Assigned Rheumatology Provider 11/09/23 Richie Rowell RPH [address] [place] [address] Pharmacist Pharmacist 04/08/24 Richie Rowell RPH [address] [place] [address] Assigned MTM Pharmacist 04/18/24 documented as of this encounter
--- OUTSIDE RECORDS SUMMARY | 2024-05-16 13:15 | XMS_ITS | Encounter Summary ---
Author Organization [facility] Address [address] [place] [address]. [place] [address] Care Team Providers Care Poultry Service Technician Name Role Phone Feliciano Uribe MD Primary Care Provider Christina Roe PA-C Unavailable Christina Roe PA-C Unavailable Richie Rowell [facility] Unavailable Encounter Details Date Type Department Care Team (Latest Contact Info) Description 04/09/2024 Travel Social History Tobacco Use Types Packs/Day [...] Description 05/20/2024 9:30 AM CDT Virtual Visit [facility] [address] [facility] [address] [place] [address] Zhane Crain MD [address] [place], [place] [address] Richie Rowell RPH [address] [place] [address] 07/31/2024 2:00 PM SERVICE OBSERVER CHIEF Office Visit [address] [place] [address] Christina Roe PA-C [address] [place] [address] documented as of this encounter Visit Diagnoses Not on filedocumented in this encounter Care Teams Poultry Service Technician Relationship Specialty Start Date End Date Feliciano Uribe MD [address] [address] PCP - General Family Medicine 06/01/23 Christina Roe PA-C [address] [place] [address] Physician Agricultural Production Engineer Rheumatology 11/06/23 Christina Roe PA-C [address] [place] [address] Assigned Rheumatology Provider 11/09/23 Richie Rowell RP [address] [place] [address] Pharmacist Pharmacist 04/08/24 documented as of this encounter
--- OUTSIDE RECORDS SUMMARY | 2024-05-16 13:15 | XMS_ITS | Encounter Summary ---
Author Organization [place] Address [address] [place] [address]. [place] [address] Care Team Providers Care Digital Artist Name Role Phone Feliciano Uribe MD Primary Care Provider Christina Roe PA-C Unavailable Christina Roe PA-C Unavailable Richie Rowell [facility] Unavailable Encounter Details Date Type Department Care Team (Late st Contact Info) Description 04/09/2024 PRE VISIT [facility] [address] [facility] [address] [place] [address] Saeed Berry MD [address] [place] [id number] Social History Tobacco Use Types Packs/Day Years [...] encounter Miscellaneous Notes * Telephone Encounter - Yulissa Aguilar - 04/01/2024 3:20 PM CDT After multiple attempts to reach patient, patient has not confirmed this appointment. It has been cancelled. If patient calls to schedule, patient may schedule next available with neuro-ophthalmology. Yulissa Aguilar on 04/01/2024 at 3:22 PM * Telephone Encounter - Ramya Baum - 03/28/2024 7:48 AM CDT FUTURE VISIT INFORMATION FUTURE VISIT INFORMATION: Date: 04/09/24 Time: 8:15am Location: csc REFERRAL INFORMATION: Referring provider: Jorge Kelly MD Referring providers clinic: [facility] RECORDS REQUESTED FROM: Clinic name Comments Records Status Imaging Status [facility] OV/notes 03/25/24-03/22/24 epic Imaging CTV Head done 03/22/24 MRA Brain 03/22/24 epic pac documented in this encounter Plan of Treatment Upcoming Encounters Date Type Department Care Team (Late st Contact Info) Description 05/20/2024 9:30 AM CDT Virtual Visit [facility] [address] [facility] [address] [place] [phone] Zhane Crain MD [address] [place] [address] Richie Rowell, [facility] [address] [place] [address] 07/31/2024 2:00 PM FIRER WATERTENDER Office Visit [facility] [address] [facility] [address] [place] [phone] Christina Roe PA-C [address] [place], [place] [phone] documented as of this encounter Visit Diagnoses Not on filedocumented in this encounter Care Teams Digital Artist Relationship Specialty Start Date End Date Feliciano Uribe MD [address] [address] PCP - General Family Medicine 06/01/23 Christina Roe PA-C [address] [place] [address] Physician Learning And Development Officer Rheumatology 11/06/23 Christina Roe PA-C [address] [place] [address] Assigned Rheumatology Provider 11/09/23 Richie Rowell RPH [address] [place] [address] Pharmacist Pharmacist 04/08/24 documented as of this encounter
--- OUTSIDE RECORDS SUMMARY | 2024-05-16 13:15 | XMS_ITS | Encounter Summary ---
Author Organization [place] Address [address] [place] [address] Care Team Providers Care Blintze Roller Name Role Phone Feliciano Uribe MD Primary Care Provider [phone] Christina Roe PA-C Unavailable Christina Roe PA-C Unavailable [phone] Richie Rowell [facility] Unavailable Richie Rowell [facility] Unavailable Reason for Visit * Rehab Therapy Integrated Services (Routine: Next available opening) - Authorized Specialty Diagnoses / Procedures Referred By Amena prasad Referred To Contact Diagnoses Temporal arteritis PMR (polymyalgia rheumatica) (H24) [address] [address] Referral ID Status Reason Start Date Expiration Date V isits Requested Visits Authorized [id number] Authorized 03/27/2024 08/26/2024 365 365 Encounter Details Date Type Department Care Team (Latest Contact Info) Description 04/22/2024 1:15 PM CDT Therapy Visit [facility] [address] [place] [address] [address] [place] [address] Christina Roe PA-C [address] [place] [address] Mary Mckinley, YESI [address] [place] [address] Temporal arteritis (H) (Primary Dx); Generalized muscle weakness Social History Tobacco Use Types Packs/Day Years [...] Description 05/20/2024 9:30 AM CDT Virtual Visit [facility] [address] [facility] [address] [place] [address] Zhane Crain MD [address] [place] [address] [facility] [address] [place] [address] 07/31/2024 2:00 PM AUXILIARY PLANT OPERATOR Office Visit [facility] [address] [facility] [address] [place] [phone] Christina Roe PA-C [address] [place] [address] documented as of this encounter Visit Diagnoses Diagnosis Temporal arteritis- Primary Giant cell arteritis Generalized muscle weakness Muscle weakness (generalized) documented in this encounter Care Teams Blintze Roller Relationship Specialty Start Date End Date Feliciano Uribe MD [facility] [address] [place] [address] PCP - General Family Medicine 06/01/23 Christina Roe PA-C [address] [place] [address] Physician Director Of Training Rheumatology 11/06/23 Christina Roe PA-C [address] [place] [address] Assigned Rheumatology Provider 11/09/23 Richie Rowell RPH 9 [place], [place] [phone] Pharmacist Pharmacist 04/08/24 Richie Rowell RPH [address] [place] [address] Assigned MTM Pharmacist 04/18/24 documented as of this encounter
--- OUTSIDE RECORDS SUMMARY | 2024-05-16 13:15 | XMS_ITS | Encounter Summary ---
Author Organization [place] Address [address] [place] [address]. [place] [address] Care Team Providers Care Production Finisher Name Role Phone Feliciano Uribe MD Primary Care Provider [phone] Christina Roe PA-C Unavailable Christina Roe PA-C Unavailable Richie Rowell [facility] Unavailable Reason for Visit * Rehab Therapy Integrated Services (Routine: Next available opening) - Authorized Specialty Diagnoses / Procedures Referred By Amena prasad Referred To Contact Diagnoses Temporal arteritis PMR (polymyalgia rheumatica) (H24) [address] [address] Referral ID Status Reason Start Date Expiration Date V isits Requested Visits Authorized [id number] Authorized 03/27/2024 08/26/2024 365 365 Encounter Details Date Type Department Care Team (Late st Contact Info) Description 04/09/2024 10:30 AM CDT Therapy Visit [facility] [address] [place] [address] Luz Yuan MD [address] [place], [place] [phone] [place] [phone] Sue Gayle, PT [facility] [address] [place] [phone] Temporal arteritis (H) (Primary Dx); PMR (polymyalgia rheumatica) (H24); Impaired gait and mobility Social History Tobacco Use Types Packs/Day Years [...] 05/20/2024 9:30 AM CDT Virtual Visit [facility] [address] [facility] [address] [place] [phone] Zhane Crain MD [address] [place] [address] [facility] 9[address] [place] [address] 07/31/2024 2:00 PM MEXICAN FOOD MAKER Office Visit [facility] [address] [facility] [address] [place] [phone] Christina Roe PA-C [address] [place] [address] documented as of this encounter Visit Diagnoses Diagnosis Temporal arteritis- Primary Giant cell arteritis PMR (polymyalgia rheumatica) (H24) Polymyalgia rheumatica Impaired gait and mobility documented in this encounter Care Teams Production Finisher Relationship Specialty Start Date End Date Feliciano Uribe MD [facility] [address] [address] PCP - General Family Medicine 06/01/23 Christina Roe PA-C [address] [place] [address] Physician Sound Tester Rheumatology 11/06/23 Christina Roe PA-C [address] [place] [address] Assigned Rheumatology Provider 11/09/23 Richie Rowell RPH [address] [place] [address] Pharmacist Pharmacist 04/08/24 documented as of this encounter
--- OUTSIDE RECORDS SUMMARY | 2024-05-16 13:15 | XMS_ITS | Encounter Summary ---
Author Organization [place] Address [address] [place] [address] Care Team Providers Care Quality Review Trainer Name Role Phone Feliciano Uribe MD Primary Care Provider Christina Roe PA-C Unavailable Christina Roe PA-C Unavailable Richie Rowell [facility] Unavailable Reason for Referral * Diagnostic Imaging Ultrasound (Routine) - Pending Review Specialty Diagnoses / Procedures Referred By Amena prasad Referred To Contact Radiology. Diagnoses GCA (giant cell arteritis) Pain in right lower leg Procedures US Lower Extremity Venous Duplex Right Zhane Crain MD [address] [place] [address] Referral ID Status Reason Start Date Expiration Date V isits Requested Visits Authorized [id number] Pending Review 04/17/2024 04/17/2025 3 3 Reason for Visit * Reason Comments Follow Up * Consultation (Routine: Next available opening) - Pending Review Specialty Diagnoses / Procedures Referred By Amena prasad Referred To Contact Rheumatology Diagnoses GCA (giant cell arteritis) Zhane Crain MD [address] [place] [address] Referral ID Status Reason Start Date Expiration Date V isits Requested Visits Authorized [id number] Pending Review 03/24/2024 03/24/2025 1 1 Encounter Details Date Type Department Care Team (Late st Contact Info) Description 04/17/2024 12:30 PM CDT Office Visit [place] [address] [facility] [address] [place] [phone] Zhane Crain MD [address] [place] [phone] GCA (giant cell arteritis) (H); Pain in [...] Pulse 64 04/17/2024 12:17 PM CDT Temperature - - Respiratory Rate 98 04/17/2024 12:17 PM CDT Oxygen Saturation - - Inhaled Oxygen Concentration - - Weight 69.9 kg (154 lb) 04/17/2024 12:17 PM CDT Height - - Body Mass Index 30.08 03/23/2024 8:57 PM CDT documented in this encounter Patient Instructions * Patient Instructions* Zhane Crain MD - 04/17/2024 12:30 PM CDT Once you are on less than 20mg of prednisone daily please obtain your flu shot and make sure you are up to date on pneumonia, Shingles, RSV, and COVID vaccines. You can discontinue the pantoprazole once you are on less than 20mg of prednisone daily. Once you start the Actemra, please get lab work done 4 weeks later, then monthly for the first three months, then every 3 months. Please schedule your right lower leg ultrasound documented in this encounter Progress Notes * Zhane Crain MD - 04/17/2024 12:30 PM CDT Problem List Assessment & Plan Questionable SLE - reports history but no signs/symptoms currently A fib Graves Disease PMR Biopsy Negative GCA Comment: Admitted on 03/22/2024 due to symptoms concerning for GCA in the setting of previous diagnosis of PMR, including a right sided temporal headache, temporal/scalp tenderness, jaw claudication over right side, pain down side of face and neck, and some transient vision changes which completely resolved after initiation of high-dose steroids. Curiously, inflammatory markers never rhina and her temporal artery biopsy was negative. MRI imaging of the head and neck were also unremarkable. Given clinical picture still consistent with GCA and clinical response to steroids still believe GCA is most likely explanation. Given that she was having some presyncopal like episodes around this time as well we obtained a CTA chest to assess for possible aortitis which was negative. Plan: -start Actemra after pre-medication labs return -continue prednisone taper as below -inflammatory markers every 3 months or more frequently if symptoms re-occur -counseled pt on symptoms to be on the look out for -continue to follow with ophthalmology -Given atypical workup, if she does not respond to therapy as expected would reevaluate her diagnosis. -Continue to follow-up with Christina. I am happy to see her as needed. She is disease-free after 2 years with considered tapering her Actemra. Weeks Daily prednisone dose (mg) 26-week taper 1 60 2 50 3 40 4 35 5 30 6 25 7 20 8 15 9 12.5 10 12.5 11 10 12 9 13 8 14 7 15 6 16 6 17 5 18 5 19 4 20 4 21 3 22 3 23 2 24 2 25 1 26 1 High risk medication use Comment: Actemra Quant gold (pending) Hepatitis B and C serologies (pending) Plan: -Toxicity monitoring labs 4 weeks after Actemra then monthly for the first 3 months then every 3 months if stable. -Repeat lipids 1 month after initiation of Actemra and then every 6 months if normal -Reviewed that patient is immunocompromised today and counseled to let us know if she develops a fever or other infection needing antibiotics or if surgery is planned. Should be seen by primary care in these instances. Long-term steroid use Comment: Status post steroids with taper Plan: -Continue vitamin D supplement -Continue pantoprazole until less than 20 of prednisone -Will need DEXA scan, recommend discussing on follow-up -Once < 20mg of prednisone daily obtain flu shot and ensure up to date on pneumonia, Shingles, RSV, and COVID vaccines. (Discussed with patient today) - Continue bactrim DS tablet every MWF for PCP ppx until less than 20mg of prednisone -Encourage to consume appx 1200 mg of calcium daily with her diet. The longitudinal plan of care for the diagnosis(es)/condition(s) as documented were addressed during this visit. Due to the added complexity in care, I will continue to support Gato in the subsequent management and with ongoing continuity of care. Return to Clinic in one year Orders Placed This Encounter Procedures US Lower Extremity Venous Duplex Right Erythrocyte sedimentation rate auto CRP inflammation ALT AST Creatinine CBC with platelets Erythrocyte sedimentation rate auto CRP inflammation Lipid panel reflex to direct LDL Fasting 40 minutes spent on the day of the encounter reviewing tests, records, ordering, communicating results and counseling the patient, care coordination and documentation. Zhane Crain MD Rheumatology Subjective Interim Hx: Sees optho in about a week Had numbness over the side of her face which is now resolved. Did have one episode of jaw tightness since leaving the hospital which lasted about an hour and then self resolved. None since. Has slighthead over her right synagogue in the morning which lasts about an hour and then self-resolves. No past medical history on file. 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 Social History Tobacco Use Smoking status: Never Passive exposure: Past Smokeless tobacco: Never Substance Use Topics Alcohol use: Yes Comment: occasional wine Drug use: Never Current Outpatient Medications: amLODIPine (NORVASC) 5 MG tablet, Take 5 mg by mouth daily, Disp: , Rfl: amoxicillin (AMOXIL) 500 MG capsule, TAKE 4 CAPSULES BY MOUTH 1 HOUR BEFORE DENTAL APPOINTMENT FOR 1 DOSE, Disp: , Rfl: atorvastatin (LIPITOR) 10 MG tablet, Take 10 mg by mouth at bedtime, Disp: , Rfl: calcium carbonate (TUMS) 500 MG chewable tablet, Take 1 chew tab by mouth daily, Disp: , Rfl: Cyanocobalamin 1000 MCG/ML KIT, 1,000 mcg every 30 days, Disp: , Rfl: D3-50 1.25 MG (54984 UT) capsule, Take 1,250 mcg by mouth once a week, Disp: , Rfl: FLUoxetine (PROZAC) 40 MG capsule, Take 40 mg by mouth daily, Disp: , Rfl: levothyroxine (SYNTHROID/LEVOTHROID) 150 MCG tablet, Take 150 mcg by mouth daily, Disp: , Rfl: lisinopril (ZESTRIL) 10 MG tablet, Take 10 mg by mouth 2 times daily, Disp: , Rfl: methocarbamol (ROBAXIN) 500 MG tablet, Take 1 tablet (500 mg) by mouth 4 times daily as needed for muscle spasms, Disp: 10 tablet, Rfl: 0 metoprolol tartrate (LOPRESSOR) 25 MG tablet, Take 25 mg by mouth 2 times daily, Disp: , Rfl: Multiple Vitamin (MULTIVITAMIN ADULT PO), Take 1 tablet by mouth daily, Disp: , Rfl: nitroGLYcerin (NITROSTAT) 0.4 MG sublingual tablet, Place 0.4 mg under the tongue, Disp: , Rfl: pantoprazole (PROTONIX) 40 MG EC tablet, Take 1 tablet (40 mg) by mouth every morning (before breakfast), Disp: 90 tablet, Rfl: 0 [START ON 06/10/2024] predniSONE (DELTASONE) 1 MG tablet, Take 9 tablets (9 mg) by mouth [...] 1 tablet (1 mg) daily for 14 days., Disp: 462 tablet, Rfl: 0 predniSONE (DELTASONE) 10 MG tablet, Take 6 tablets (60 mg) by mouth daily for 5 days, THEN 5 tablets (50 mg) daily for 7 days, THEN 4 tablets (40 mg) daily for 7 days, THEN 3.5 tablets (35 mg) dailyfor 7 days, THEN 3 tablets (30 mg) daily for 7 days, THEN 2.5 tablets (25 mg) daily for 7 days, THEN 2 tablets (20 mg) daily for 7 days, THEN 1.5 tablets (15 mg) daily for 7 days., Disp: 181 tablet, Rfl: 0 [START ON 05/20/2024] predniSONE (DELTASONE) 5 MG tablet, Take 2.5 tablets (12.5 mg) by mouth daily for 14 days, THEN 2 tablets (10 mg) daily for 7 days., Disp: 49 tablet, Rfl: 0 sulfamethoxazole-trimethoprim (BACTRIM DS) 800-160 MG tablet, Take 1 tablet by mouth three times a week for 43 days, Disp: 18 tablet, Rfl: 0 tocilizumab (ACTEMRA) 162 MG/0.9ML subcutaneous injection, Inject 0.9 mLs (162 mg) subcutaneously once a week Hold for signs of infection, and seek medical attention., Disp: 3.6 mL, Rfl: 5 zoledronic acid (RECLAST) 5 MG/100ML SOLN infusion, Inject 5 mg into the vein once Every 12 months,Disp: , Rfl: Objective BP (!) 158/72 Pulse 64 Resp (!) 98 Wt 69.9 kg (154 lb) BMI 30.08 kg/m?? General: alert, well appearing, no distress HEENT: clear conjunctiva, ecchymosis surrounding right eye, no scalp tenderness, no temporal tenderness to palpation Cardiac: warm and well perfused Pulm: normal respiratory effort, MSK: uses walker for ambulation Hand, wrist, elbow, and shoulder joints without evidence of synovitis or effusion. Skin: No rashes, warm and well-perfused. documented in this encounter Plan of Treatment Upcoming Encounters Date Type Department Care Team (Late st Contact Info) Description 05/20/2024 9:30 AM CDT Virtual Visit [facility] [address] [facility] [address] [place] [address] Zhane Crain MD [address] [place] [address] Richie Rowell, [facility] [address] [place] [address] 07/31/2024 2:00 PM DOUBLE END PRODUCTION GRINDER Office Visit [facility] [address] [facility] [address] [place] [phone] Christina Roe PA-C [address] [place] [address] Scheduled Orders Name Type Priority Associated Diagnoses Orde r Schedule Erythrocyte sedimentation rate auto Lab Routine GCA (giant cell arteritis) (H) month for 3 Occurrences starting 04/17/2024 until 04/17/2025, 1 completed CRP inflammation Lab Routine GCA (giant cell arteritis) (H) month for 3 Occurrences starting 04/17/2024 until 04/17/2025, 1 completed US Lower Extremity Venous Duplex Right Imaging STAT GCA (giant cell arteritis) (H) Pain in right lower leg month for 3 Occurrences starting 04/17/2024 until 05/18/2024, 1 completed ALT Lab Routine GCA (giant cell arteritis) (H) month for 3 Occurrences starting 04/17/2024 until 04/17/2025, 1 completed AST Lab Routine GCA (giant cell arteritis) (H) month for 3 Occurrences starting 04/17/2024 until 04/17/2025, 1 completed Creatinine Lab Routine GCA (giant cell arteritis) (H) month for 3 Occurrences starting 04/17/2024 until 04/17/2025, 1 completed CBC with platelets Lab Routine GCA (giant cell arteritis) (H) month for 3 Occurrences starting 04/17/2024 until 04/17/2025, 1 completed Erythrocyte sedimentation rate auto Lab Routine GCA (giant cell arteritis) (H) month for 3 Occurrences starting 04/17/2024 until 04/17/2025 CRP inflammation Lab Routine GCA (giant cell arteritis) (H) month for 3 Occurrences starting 04/17/2024 until 04/17/2025 documented as of this encounter Results * US Lower Extremity Venous Duplex Right (04/22/2024 2:35 PM CDT) Anatomical Region Laterality Modality Lower Extremity Ultrasound 04/22/2024 2:35 PM CDT Impressions 04/22/2024 2:41 PM CDT IMPRESSION: 1. ??No deep venous thrombosis in the right lower extremity. Narrative 04/22/2024 2:41 PM CDT EXAM: US LOWER EXTREMITY VENOUS DUPLEX RIGHT LOCATION: [facility] DATE: 04/22/2024 INDICATION: ??GCA (giant cell [...] US LOWER EXTREMITY VENOUS DUPLEX RIGHT LOCATION: [facility] DATE: 04/22/2024 INDICATION: GCA (giant cell [...] the right lower extremity. Zhane Crain MD [facility] U S ORDERABLES * Lipid panel reflex to direct LDL [...] MD LAB - BLOOD ORDERABLES [facility] [place] [address] [facility] [address] [facility], [address] [place] [address], [facility] * (ABNORMAL) CBC with platelets (04/17/2024 1:11 PM CDT) Pathologist [facility] WBC Count 6.2 4.0 - 11.0 10e3/uL [...] LAB - BLOOD ORDERABLES Performing Organization Address City/State/[facility] [[email or web address]] Co de Phone Number [facility] [address] * Creatinine (04/17/2024 1:11 PM CDT) Creatinine 0.70 0.51 - 0.95 mg/dL 04/17/2024 7:43 PM CDT [facility] GFR Estimate 88 >60 mL/min/1.7 3m2 04/17/2024 7:43 PM CDT [facility] Comment:eGFR calculated us2020 CKD-EPI equation. Blood STRUCTURE OF RIGHT UPPER LIMB / Unknown Venipuncture / Unknown 04/17/2024 1:11 PM CDT 04/17/2024 1:24 PM CDT Zhane Crain MD LAB - BLOOD ORDERABLES [facility] [address] [facility], [address] [phone] * AST (04/17/2024 1:11 PM CDT) AST 42 0 - 45 U/L 04/17/2024 7:4 3 PM CDT [facility] Blood STRUCTURE OF RIGHT UPPER LIMB / Unknown Venipuncture / Unknown 04/17/2024 1:11 PM CDT 04/17/2024 1:24 PM CDT Zhane Crain MD LAB - BLOOD ORDERABLES Performing Organization Address City/[facility]/ZIP Co de Phone Number [facility] [address] [facility], [address] [phone] * (ABNORMAL) ALT (04/17/2024 1:11 PM CDT) Pathologist [facility] ALT 101(H) 0 - 50 U/L 04/17/2024 7:43 PM CDT [facility] Blood STRUCTURE OF RIGHT UPPER LIMB / Unknown Venipuncture / Unknown 04/17/2024 1:11 PM CDT 04/17/2024 1:24 PM CDT Zhane Crain MD LAB - BLOOD ORDERABLES [facility] [address] [facility], [address] [phone] * CRP inflammation (04/17/2024 1:11 PM CDT) CRP Inflammation <3.00 <5.00 mg/L 04/17/20 7:43 PM CDT [facility] Blood STRUCTURE OF RIGHT UPPER LIMB / Unknown Venipuncture / Unknown 04/17/2024 1:11 PM CDT 04/17/2024 1:24 PM CDT Zhane Crain MD LAB - BLOOD ORDERABLES [facility] [address] [facility], [address] [place] [phone] * Erythrocyte sedimentation rate auto (04/17/2024 1:11 PM CDT) Erythrocyte Sedimentation Rate 5 0 - 30 mm/hr 04/17/2024 1:43 PM CDT [facility] Blood STRUCTURE OF RIGHT UPPER LIMB / Unknown Venipuncture / Unknown 04/17/2024 1:11 PM CDT 04/17/2024 1:24 PM CDT Zhane Crain MD LAB - BLOOD ORDERABLES [facility] [address] documented in this encounter Visit Diagnoses Diagnosis GCA (giant cell arteritis) Giant cell arteritis Pain in right lower leg GCA (giant cell arteritis) Giant cell arteritis Pain in right lower leg documented in this encounter Care Teams Quality Review Trainer Relationship Specialty Start Date End Date Feliciano Uribe MD [facility] [address] [place] [address] PCP - General Family Medicine 06/01/23 Christina Roe PA-C [facility] [place] [address] Physician Manager Social Responsibility Rheumatology 11/06/23 Christina Roe PA-C [facility] [place] [address] Assigned Rheumatology Provider 11/09/23 Richie Rowell RPH [address] [place] [address] Pharmacist Pharmacist 04/08/24 documented as of this encounter
--- OUTSIDE RECORDS SUMMARY | 2024-05-16 13:15 | XMS_ITS | Encounter Summary ---
Author Organization [place] Address [address] [place] [address]. [place] [address] Care Team Providers Care Framing Machine Tender Name Role Phone Feliciano Uribe MD Primary Care Provider Christina Roe PA-C Unavailable [phone] Christina Roe PA-C Unavailable [phone] Richie Rowell [facility] Unavailable Richie Rowell [facility] Unavailable Zhane Crain MD Unavailable Encounter Details Date Type Department Care Team (Late st Contact Info) Description 04/10/2024 MyC Medical Advice [facility] [address] [place] [address] Richie Rowell [facility] [address] [place], [place] [phone] Social History Tobacco Use Types Packs/Day Years [...] Description 05/20/2024 9:30 AM CDT Virtual Visit [facility] [address] [place] [address] Zhane Crain MD [address] [place] [address] [phone] Richie Rowell RPH [address] [place] [address] 07/31/2024 2:00 PM YOUTH SERVICES SPECIALIST Office Visit [facility] [address] [facility] [address] [place] [phone] Christina Roe PA-C [address] [place] [address] documented as of this encounter Visit Diagnoses Not on filedocumented in this encounter Care Teams Framing Machine Tender Relationship Specialty Start Date End Date Feliciano Uribe MD [facility] [address] [place] [address] PCP - General Family Medicine 06/01/23 Christina Roe PA-C [address] [place] [address] Physician Senior Benefits Analyst Rheumatology 11/06/23 Christina Roe PA-C [address] [place] [address] Assigned Rheumatology Provider 11/09/23 Richie Rowell RPH [address] [place] [address] Pharmacist Pharmacist 04/08/24 Richie Rowell RPH [address] [place] [phone] Assigned MTM Pharmacist 04/18/24 Zhane Crain MD [address] [place] [address] [phone] Physician Rheumatology 05/14/24 documented as of this encounter
--- OUTSIDE RECORDS SUMMARY | 2024-05-16 13:15 | XMS_ITS | Encounter Summary ---
Author Organization [place] Address [address] [place] [address] Care Team Providers Care Supervisor [employer] Fruit Farming Name Role Phone Feliciano Uribe MD Primary Care Provider [phone] Christina Roe PA-C Unavailable Christina Roe PA-C Unavailable Richie Rowell [facility] Unavailable Richie Rowell [facility] Unavailable Zhane Crain MD Unavailable Encounter Details Date Type Department Care Team (Late st Contact Info) Description 04/14/2024 MyC Medical Advice [facility] [address] [place] [phone] Adalberto Boles Social History Tobacco Use [...] Description 05/20/2024 9:30 AM CDT Virtual Visit [facility] [address] [facility] [address] [place] [phone] Zhane Crain MD 500 [place] [address] Richie Rowell RPH 9[address] [place] [address] 07/31/2024 2:00 PM PRICING INTERN Office Visit [facility] [address] [facility] [address] [place] [phone] Christina Roe PA-C [address] [place] [address] documented as of this encounter Visit Diagnoses Not on filedocumented in this encounter Care Teams Supervisor Vine [employer] Farming Relationship Specialty Start Date End Date Feliciano Uribe MD [facility] [address] [place] [address] PCP - General Family Medicine 06/01/23 Christina Roe PA-C [address] [place] [address] Physician Dispatch Specialist Rheumatology 11/06/23 Christina Roe PA-C [address] [place] [address] Assigned Rheumatology Provider 11/09/23 Richie Rowell RPH 9[address] [place] [address] Pharmacist Pharmacist 04/08/24 Richie Rowell RPH [address] [place] [address] Assigned [place] Pharmacist 04/18/24 Zhane Crain MD [address] [place] [address] Physician Rheumatology 05/14/24 documented as of this encounter
--- OUTSIDE RECORDS SUMMARY | 2024-05-16 13:15 | XMS_ITS | Encounter Summary ---
Author Organization [place] Address [address] [place] [address] Care Team Providers Care Milk Drying Machine Operator Name Role Phone Feliciano Uribe MD Primary Care Provider Christina Roe PA-C Unavailable Christina Roe PA-C Unavailable Richie Rowell [facility] Unavailable Reason for Visit * Rehab Therapy Integrated Services (Routine: Next available opening) - Authorized Specialty Diagnoses / Procedures Referred By Amena prasad Referred To Contact Diagnoses Temporal arteritis PMR (polymyalgia rheumatica) (H24) [address] [address] Referral ID Status Reason Start Date Expiration Date V isits Requested Visits Authorized [id number] Authorized 03/27/2024 08/26/2024 365 365 Encounter Details Date Type Department Care Team (Latest Contact Info) Description 04/14/2024 10:45 AM CDT Therapy Visit [address] [place] [address] Maricruz Madrid, PT [address] [place] [address] Temporal arteritis (H) (Primary Dx); PMR (polymyalgia [...] Description 05/20/2024 9:30 AM CDT Virtual Visit [facility] [address] [facility] [address] [place] [phone] Zhane Crain MD 500 [place], [place] [address] Richie RowellCOX BRANSON 9[address] [place] [address] 07/31/2024 2:00 PM CORNCOB PIPES ASSEMBLER Office Visit [facility] [address] [facility] [address] [place] [phone] Christina Roe PA-C [address] [place] [address] documented as of this encounter Visit Diagnoses Diagnosis Temporal arteritis- Primary Giant cell arteritis PMR (polymyalgia rheumatica) (H24) Polymyalgia rheumatica Impaired gait and mobility documented in this encounter Care Teams Milk Drying Machine Operator Relationship Specialty Start Date End Date Feliciano Uribe MD [facility] [address] [place] [address] PCP - General Family Medicine 06/01/23 Christina Roe PA-C [address] [place] [address] Physician Sap Data Analyst Rheumatology 11/06/23 Christina Roe PA-C [address] [place] [address] Assigned Rheumatology Provider 11/09/23 Richie Rowell RPH 9[address] [place] [address] Pharmacist Pharmacist 04/08/24 documented as of this encounter
--- OUTSIDE RECORDS SUMMARY | 2024-05-16 13:15 | XMS_ITS | Encounter Summary ---
Author Organization [place] Address [address] [place] [address]. [place] [address] Care Team Providers Care Professor Of Surgery Name Role Phone Feliciano Uribe MD Primary Care Provider Christina Roe PA-C Unavailable [phone] Christina Roe PA-C Unavailable Richie Rowell [facility] Unavailable Encounter Details Date Type Department Care Team (Latest Contact Info) Description 04/16/2024 Travel Social History Tobacco Use Types Packs/Day [...] Visit [facility] [address] [facility] [address] [place] [address] Zhane Crain MD 500 [place], [place] [address] Richie Rowell RPH [address] [place] [address] 07/31/2024 2:00 PM FOOD WRITER Office Visit [address] [place] [address] Christina Roe PA-C [address] [place] [address] documented as of this encounter Visit Diagnoses Not on filedocumented in this encounter Care Teams Professor Of Surgery Relationship Specialty Start Date End Date Feliciano Uribe MD [address] [address] PCP - General Family Medicine 06/01/23 Christina Roe PA-C [address] [place] [address] Physician Engineering Program Analyst Rheumatology 11/06/23 Christina Roe PA-C [address] [place] [address] Assigned Rheumatology Provider 11/09/23 Richie Rowell RP [address] [place] [address] Pharmacist Pharmacist 04/08/24 documented as of this encounter
--- OUTSIDE RECORDS SUMMARY | 2024-05-16 13:15 | XMS_ITS | Encounter Summary ---
Author Organization [place] Address [address] [place] [address] Care Team Providers Care Senior Account Director Name Role Phone Feliciano Uribe MD Primary Care Provider [phone] Christina Roe PA-C Unavailable [phone] Christina Roe PA-C Unavailable [phone] Encounter Details Date Type Department Care Team (Latest Contact Info) Description 04/02/2024 Travel Social History Tobacco Use Types Packs/Day [...] Description 05/20/2024 9:30 AM CDT Virtual Visit [facility] [address] [facility] [address] [place] [address] Zhane Crain MD [address] [place] [address] Richie Rowell, [facility] 9[address] [place] [address] 07/31/2024 2:00 PM SOLIDWORKS MECHANICAL DESIGNER Office Visit [address] [phone] Christina Roe PA-C [address] [place] [address] documented as of this encounter Visit Diagnoses Not on filedocumented in this encounter Care Teams Senior Account Director Relationship Specialty Start Date End Date Feliciano Uribe MD [address] [address] PCP - General Family Medicine 06/01/23 Christina Roe PA-C [address] [place] [address] Physician Arch Cushion Press Operator Rheumatology 11/06/23 Christina Roe PA-C [address] [place] [address] Assigned Rheumatology Provider 11/09/23 documented as of this encounter
--- OUTSIDE RECORDS SUMMARY | 2024-05-16 13:15 | XMS_ITS | Encounter Summary ---
Author Organization [place] Address [address] [place] [address] Care Team Providers Care Stallion Manager Name Role Phone Feliciano Uribe MD Primary Care Provider [phone] Christina Roe PA-C Unavailable [phone] Christina Roe PA-C Unavailable [phone] Richie Rowell [facility] Unavailable Encounter Details Date Type Department Care Team (Late st Contact Info) Description 04/17/2024 12:50 PM CDT Lab [facility] [address] [address] GCA (giant cell arteritis) (H); PMR (polymyalgia rheumatica) (H24); Need for hepatitis B screening test Social History Tobacco Use Types Packs/Day Years [...] Encounters Date Type Department Care Team (Late Contact Info) Description 05/20/2024 9:30 AM CDT Virtual Visit [facility] [address] [facility] [address] [place] [phone] Zhane Crain MD 500 [place] [address] SorinRichie, [facility] 909 [place] [address] 07/31/2024 2:00 PM HEAD DOFFER Office Visit [facility] 29[address] [facility] 200 [place] [phone] Christina Roe PA-C [address] [place] [address] documented as of this encounter Procedures Procedure Name Priority Date/Time Associated Diagnosis Comments QUANTIFERON TB GOLD PLUS Routine 04/17/2024 1:11 [...] cell arteritis) (H) PMR (polymyalgia rheumatica) (H24) QUANTIFERON-TB GOLD PLUS Routine 04/17/2024 1:11 PM CDT GCA (giant cell arteritis) (H) PMR (polymyalgia rheumatica) (H24) LIPID REFLEX TO DIRECT LDL PANEL Routine 04/17/2024 1:11 PM CDT GCA (giant cell arteritis) (H) HEPATITIS C ANTIBODY Routine 04/17/2024 1:11 PM CDT GCA (giant cell arteritis) (H) PMR (polymyalgia rheumatica) (H24) HEPATITIS B SURFACE ANTIGEN Routine 04/17/2024 1:11 PM CDT GCA (giant cell arteritis) (H) PMR (polymyalgia rheumatica) (H24) Need for hepatitis B screening test HEPATITIS B CORE ANTIBODY Routine 04/17/2024 1:11 PM CDT GCA (giant cell arteritis) (H) PMR (polymyalgia rheumatica) (H24) Need for hepatitis B screening test ERYTHROCYTE SEDIMENTATION RATE AUTO Routine 04/17/2024 1:11 [...] PM CDT GCA (giant cell arteritis) (H) documented in this encounter Results * Quantiferon TB Gold Plus (04/17/2024 1:11 PM CDT) Pathologist [facility] Quantiferon-TB Gold Plus Negative Negative 04/18/2024 5:06 [...] Result 2.03 IU/mL 04/18/2024 5:06 PM CDT SPECIALTY CORE/PROT/END O Nil Result 0.00 IU/mL 04/18/2024 5:06 PM CDT SPECIALTY CORE/PROT/END O Blood BLOOD SPECIMEN / Unknown Venipuncture / Unknown 04/17/2024 1:11 PM CDT 04/17/2024 1:24 PM CDT Zhane Crain MD LAB - MICRO GENERAL ORDERABLES UM SPECIALTY CORE/PROT/ENDO UM Specialty Core/Prot/Endo [address] [facility], [address] * Quantiferon TB Gold Plus Purple Tube (04/17/2024 1:11 PM CDT) Pathologist [facility] Quantiferon Mitogen 2.03 IU/mL 04/18/2024 4:17 PM CDT SPECIALTY CORE/PROT/ENDO Blood BLOOD SPECIMEN / Unknown Venipuncture / Unknown 04/17/2024 1:11 PM CDT 04/17/2024 1:24 PM CDT Zhane Crain MD LAB - MICRO GENERAL ORDERABLES UM SPECIALTY CORE/PROT/ENDO UM Specialty Core/Prot/Endo [address] [facility], [address] * Quantiferon TB Gold Plus Yellow Tube (04/17/2024 1:11 PM CDT) Quantiferon TB2 Tube 0.00 04/18/2024 4:18 PM CDT UM SPECIALTY CORE/PROT/ENDO Blood BLOOD SPECIMEN / Unknown Venipuncture / Unknown 04/17/2024 1:11 PM CDT 04/17/2024 1:24 PM CDT Zhane Crain MD LAB - MICRO GENERAL ORDERABLES UM SPECIALTY CORE/PROT/ENDO Specialty Core/Prot/Endo [address] [facility], [address] * Quantiferon TB Gold Plus Green Tube (04/17/2024 1:11 PM CDT) Quantiferon TB1 Tube 0.00 IU/mL 04/18/2024 4:18 PM CDT SPECIALTY CORE/PROT/ENDO Blood BLOOD SPECIMEN / Unknown Venipuncture / Unknown 04/17/2024 1:11 PM CDT 04/17/2024 1:24 PM CDT Zhane Carin MD LAB - MICRO GENERAL ORDERABLES UM SPECIALTY CORE/PROT/ENDO UM Specialty Core/Prot/Endo [address] [facility], [address] * Quantiferon TB Gold Plus [place]ett Tube (04/17/2024 1:11 PM CDT) Quantiferon Nil Tube 0.00 IU/mL 04/18/2024 4:18 PM CDT UM SPECIALTY CORE/PROT/ENDO Blood BLOOD SPECIMEN / Unknown Venipuncture / Unknown 04/17/2024 1:11 PM CDT 04/17/2024 1:24 PM CDT Zhane Crain MD LAB - MICRO GENERAL ORDERABLES UM SPECIALTY CORE/PROT/ENDO UM Specialty Core/Prot/Endo 500 [facility] [address] [facility], [address] * Lipid panel reflex to direct [...] MD LAB - BLOOD ORDERABLES [facility] 500 [facility], [address] [place] [phone] * (ABNORMAL) CBC with platelets (04/17/2024 1:11 PM CDT) [facility] WBC Count 6.2 4.0 - 11.0 10e3/uL [...] Zhane Crain MD LAB - BLOOD ORDERABLES [facility] [address] * Creatinine (04/17/2024 1:11 PM CDT) Creatinine 0.70 0.51 - 0.95 mg/dL 04/17/2024 7:43 PM CDT [facility] GFR Estimate 88 >60 mL/min/1.7 3m2 04/17/2024 7:43 PM CDT [facility] Comment:eGFR calculated usin g 2020 CKD-EPI equation. Blood STRUCTURE OF RIGHT UPPER LIMB / Unknown Venipuncture / Unknown 04/17/2024 1:11 PM CDT 04/17/2024 1:24 PM CDT Zhane Crain MD LAB - BLOOD ORDERABLES Performing Organization Address City/[facility]/ZIP Co de Phone Number [facility] [place] [address] [facility], [address] * AST (04/17/2024 1:11 PM CDT) AST 42 0 - 45 U/L 04/17/2024 7:4 3 PM CDT [facility] Blood STRUCTURE OF RIGHT UPPER LIMB / Unknown Venipuncture / Unknown 04/17/2024 1:11 PM CDT 04/17/2024 1:24 PM CDT Zhane Crain MD LAB - BLOOD ORDERABLES [facility] [address] [facility], [address] * (ABNORMAL) ALT (04/17/2024 1:11 PM CDT) ALT 101(H) 0 - 50 U/L 04/17/2024 7:43 PM CDT [facility] Blood STRUCTURE OF RIGHT UPPER LIMB / Unknown Venipuncture / Unknown 04/17/2024 1:11 PM CDT 04/17/2024 1:24 PM CDT Zhane Crain MD LAB - BLOOD ORDERABLES [facility] [address] [facility], [address] [phone] * CRP inflammation (04/17/2024 1:11 PM CDT) CRP Inflammation <3.00 <5.00 mg/L 04/17/20 7:43 PM CDT [facility] Blood STRUCTURE OF RIGHT UPPER LIMB / Unknown Venipuncture / Unknown 04/17/2024 1:11 PM CDT 04/17/2024 1:24 PM CDT Zhane Crain MD LAB - BLOOD ORDERABLES [facility] [address] [facility], [address] [phone] * Erythrocyte sedimentation rate auto (04/17/2024 1:11 PM CDT) Erythrocyte Sedimentation Rate 5 0 - 30 mm/hr 04/17/2024 1:43 PM CDT [facility] Blood STRUCTURE OF RIGHT UPPER LIMB / Unknown Venipuncture / Unknown 04/17/2024 1:11 PM CDT 04/17/2024 1:24 PM CDT Zhane Crain MD LAB - BLOOD ORDERABLES [facility] [address] * Hepatitis B surface antigen (04/17/2024 1:11 PM CDT) Hepatitis B Surface Antigen Nonreactive Nonreactive 04/17/2024 8:05 PM CDT [facility] Blood STRUCTURE OF RIGHT UPPER LIMB / Unknown Venipuncture / Unknown 04/17/2024 1:11 PM CDT 04/17/2024 1:24 PM CDT Zhane Crain MD LAB - BLOOD ORDERABLES [facility]ORY [facility] [address] [facility], [address] [phone] * Hepatitis B core antibody (04/17/2024 1:11 [...] LAB - BLOOD ORDERABLES Performing Organization Address City/[facility]/ZIP Co de Phone Number [facility]ATORY [facility] [address] [facility], [address] [phone] * Hepatitis C antibody (04/17/2024 1:11 PM [...] MD LAB - BLOOD ORDERABLES [facility] 500 [facility], [address] [place] [address], [facility] documented in this encounter Visit Diagnoses Diagnosis GCA (giant cell arteritis) Giant cell arteritis PMR (polymyalgia rheumatica) (H24) Polymyalgia rheumatica Need for hepatitis B screening test documented in this encounter Care Teams Stallion Manager Relationship Specialty Start Date End Date Feliciano Uribe MD [facility] [address] [place] [address] PCP - General Family Medicine 06/01/23 Christina Roe PA-C [address] [place] [address] Physician Software Program Manager Rheumatology 11/06/23 Christina oRe PA-C [address] [place] [address] Assigned Rheumatology Provider 11/09/23 Richie Rowell RPH [address] [place] [address] Pharmacist Pharmacist 04/08/24 documented as of this encounter
--- OUTSIDE RECORDS SUMMARY | 2024-05-16 13:15 | XMS_ITS | Encounter Summary ---
Author Organization [facility] Address [address] [place] [address] Care Team Providers Care Service Center Assistant Name Role Phone Feliciano Uribe MD Primary Care Provider [phone] Christina Roe PA-C Unavailable Crhistina Roe PA-C Unavailable Richie Rowell [facility] Unavailable Reason for Visit * Rehab Therapy Integrated Services (Routine: Next available opening) - Authorized Specialty Diagnoses / Procedures Referred By Amena prasad Referred To Contact Diagnoses Temporal arteritis PMR (polymyalgia rheumatica) (H24) [address] [address] Referral ID Status Reason Start Date Expiration Date V isits Requested Visits Authorized [id number] Authorized 03/27/2024 08/26/2024 365 365 Encounter Details Date Type Department Care Team (Latest Contact Info) Description 04/09/2024 11:45 AM CDT Therapy Visit [facility] [address] [place] [address] [address] [place] [phone] Christina Roe PA-C [address] [place], [place] [id number] Mary Mckinley, YESI [address] [place] [address] Cognitive changes (Primary Dx); Temporal arteritis (H); PMR (polymyalgia rheumatica) (H24); Generalized muscle weakness Social History Tobacco Use [...] as of this encounter Progress Notes * Mary Mckinley, OT - 04/09/2024 11:45 AM CDT OCCUPATIONAL THERAPY EVALUATION Type of Visit: Evaluation Subjective Gato Jimenez was admitted on 03/22/2024 with a history of polymyalgia rheumatica on prednisone, SVT, A-fib, hypertension presenting with head/neck pain, dizziness, and blurred vision in her right eye admitted on 03/22 with unilateral vision loss concerning for possible Giant Cell Arteritis s/p temporal artery biopsy, which was negative but with continued treatment for likely GCA give clinicalpresentation. Patient started on IV methylprednisolone 1000 Pmg with improvement in her symptoms shortly after high dose steroids for three days. She was then transitioned to 60 mg prednisone with plans to continue slow taper on discharge. Ophthalmology exam improving on discharge and patient had re covery of her vision and her symptoms had largely resolved. History of multiple falls with injury, 5-6 falls in the past year. States that her LEs would give out. Also had dizziness started about 1-2 years ago. Could be leaning forward and then just fall forward. Had a walker previously following knee replacement but now is using at all times. No falls since discharging from the hospital. Today she reports noticing general weakness in her UE's, fatigue as well as cognitive changes that started just prior to hospitalization. She reports that she has frequent flairs of PMR, often has joint stiffness. Today is a good day overall. Presenting condition or subjective complaint: walker not letting go memory conservibg my energy Date of onset: 03/22/24 Relevant medical history: Arthritis; Chest pain; Depression Dates & types of surgery: repacment three years sgo Prior diagnostic imaging/testing results: MRI; CT scan; X-ray; Bone scan; Other Prior therapy history for the same diagnosis, illness or injury: Prior Level of Function Transfers: Independent Ambulation: Independent ADL: Independent IADL: Driving, Housekeeping, Laundry, Meal preparation, Medication management Living Environment Social support: With a significant other or spouse Type of home: [facility]; 1 level Stairs to enter the home: Ramp: No Stairs inside the home: No Help at home: Self Cares (home health aide/fryline attendant, family, etc) Equipment owned: Walker and grab bars, is going to be getting a shower chair 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 Hobbies/Interests: Swim at the [employer], fusion swim classes, enjoys cooking Patient goals for therapy: walking with walker so help wiyh the dizziness to not fall over, increasing overall energy, and improving memory Pain assessment: Pain denied this is the first time in years that I am not in pain. Objective Cognitive Status Examination Orientation: Oriented to person, place and time Level of Consciousness: Alert Follows Commands and Answers Questions: 100% of the time, Follows single step instructions Personal Safety and Judgement: At risk behaviors demonstrated Memory: Impaired Attention: Reports problems attending Organization/Problem Solving: Will further assess. Executive Function: Working memory impaired, decreased storage of information for performing tasks,Cognitive flexibility impaired, Planning ability impaired My memory isn't as sharp as it used to be. Patient plays iPad and puzzles. has been taking care of appointments/calendar use. I am not good at details. MoCA: 30 with impairments with executive functioning, visuospatial skills, clock drawing, attention, language, 2/5 delayed recall. [place] Cognitive Assessment (MoCA) which was designed as a rapid screening instrument for mild cognitive dysfunction. It assesses different cognitive domains: attention and concentration, executive functions, memory, language, visuoconstructional skills, conceptual thinking, calculations, and orientation. The total possible score is 30 points; a score of 26 or above is considered within normal range. VISUAL SKILLS Visual Acuity: Wears glasses, for near vision Visual Field: Appears normal Visual Attention: Appears normal Oculomotor: SENSATION: numbness/tingling in her R hand/wrist and R foot, can feel hot/cold POSTURE: WNL RANGE OF MOTION: UE AROM WNL STRENGTH: Pain: - none + mild ++ moderate +++ severe Strength Scale: 0-5/5 Left Right Shoulder Flexion 4 4 Shoulder Extension 4 4 Shoulder Abduction 4 4 Elbow Flexion 5 5 Elbow Extension 4 4 Lithoduplicator Operator Strength (lbs) 37# WNLs for age 35# (1 SD below mean for age) Hand Dominance: Right MUSCLE TONE: WNL COORDINATION: WNL No c/o changes with BALANCE: See PT notes. FUNCTIONAL MOBILITY Assistive Device(s): Walker (four wheeled) Ambulation: 4WW Wheelchair: BED MOBILITY: Independent TRANSFERS: Independent BATHING: SBA Equipment: Walk in shower, getting shower chair and non-skid sticker sltrips UPPER BODY DRESSING: Independent Equipment: LOWER BODY DRESSING: Independent, getting a engineer steam to avoid bending forward to reach feet Equipment: TOILETING: Independent, when her PA flares up, she needs assistance because she can't reach to wipe Equipment: Raised toilet seat GROOMING: Independent Equipment: EATING/SELF FEEDING: Independent Equipment: ACTIVITY TOLERANCE: Patient reports that she doesn't sleep well, but hasn't slept well in years. Gets up to go to the BR and with steroids she feels wired. Patient reports dozing off in the chair during the day but doesn't know how long. FACIT: Patient scored 20. The FACIT-F (Functional Assessment of Chronic Illness Therapy - Fatigue) is a 13-item questionnaire that assesses self-reported fatigue and its impact upon daily activities and function. The range of possible scores is 0-52, with 0 being the worst possible score and 52 thebest. Average score in [place] general population is 40. Any effort to raise or maintain a score above 30 would help keep the person WNLs as defined by + or - one SD. If a person were to have a 3-4 point increase or decrease in score, one can reasonably classify that person as having changed. INSTRUMENTAL ACTIVITIES OF DAILY LIVING (IADL): Meal Planning/Prep: Patient started doing some cooking at home, supervision of to ensure she isn't leaving the burner on, I have found myself putting things in the fridge that should have been in the cupboard. Home/Stitcher Utility: does the finances. Patient has a cleaning lady. has beendoing the laundry. Medications: Daughter laminated a sheet of her medications and laminated that she checks off each day. will double check. Patient has morning/evening pillboxes. Communication/Computer Use: Independent with using phone, iPad and computer. Community Mobility: I don't feel secure driving right now. Receving assistance. Assessment & Plan CLINICAL IMPRESSIONS Medical Diagnosis: Temporal arteritis (H) (M31.6) PMR (polymyalgia rheumatica) Treatment Diagnosis: Cognitive changes, generalized weakness affecting ADL/IADLs Impression/Assessment: Pt is a 79 year old female presenting to Occupational Therapy due to cognitive changes, fatigue and generalized weakness impacting ADL/IADL independence following recent hospitalization for Temporal arteritis/ PMR (polymyalgia rheumatica) . The following significant findings have been identified: Impaired activity tolerance, Impaired balance, Impaired cognition, Impaired mobility, Impaired safety/judgement, Impaired sensation, and Impaired strength. These identified deficits interfere with their ability to perform self care tasks, recreational activities, driving , medication management, meal planning and preparation, and community or volunteer activities as compared to previous level of function. Clinical Decision Making (Complexity): Assessment of Occupational Performance: 3-5 Performance Deficits Occupational Performance Limitations: bathing/showering, dressing, functional mobility, driving andcommunity mobility, health management and maintenance, home establishment and management, meal preparation and cleanup, shopping, and leisure activities Clinical Decision Making (Complexity): Low complexity PLAN OF CARE Treatment Interventions: Interventions: Cognitive Skills, Community/Work Reintegration, Self-Care/Home Management, Therapeutic Activity, Therapeutic Exercise Assisted Goals OT Goal 1 Goal Identifier: 1-Fatigue Goal Description: Patient to verbalize 3 strategies for energy conservation/work simplification andfatigue management for improved independence with IADL/leisure activities and increase their FACIT - Fatigue score by 4 points for increased activity level. Target Date: 06/08/24 OT Goal 2 Goal Identifier: 2-BUE strengthening HEP Goal Description: Patient will demonstrate independence with B UE strengthening HEP 2/2 sessions for improved strength for functional mobility, ADLs and to swim. Target Date: 06/08/24 OT Goal 3 Goal Identifier: 3-Meal prep Goal Description: Patient will demonstrate the ability to cook a simple to moderately complex meal prep task using the stove and/or oven with modified independence using adapted techniques prn for increased safety and independence. Target Date: 06/08/24 OT Goal 4 Goal Identifier: 4-Memory Goal Description: Patient will demonstrate improved memory skills by completing short-term memory tasks in occupational therapy with 85-90% accuracy using compensatory strategies for increased safetyand independence with ADL/IADLS (remembering to take medications, turn off the stove when done, etc.). Target Date: 06/08/24 OT Goal 5 Goal Identifier: 5-Medication Management Goal Description: Patient to demonstrate 100% accuracy on setting up 4 new medications using am/pm pillboxes for resume safe management of her personal medications using a pill box Target Date: 06/08/24 OT Goal 6 Goal Identifier: 6-Community mobility Goal Description: Patient will demonstrate modified I with visual scanning, reaction time, divided attention, and problem solving to ensure safety for community mobility (i.e. driving, crossing the street, pathfinding, shopping, etc.) Target Date: 06/08/24 Frequency of Treatment: 1x/week Duration of Treatment: 60 days Recommended Referrals to Other Professionals: None at time of eval Education Assessment: Learner/Method: Patient;Listening Education Comments: role of OT, POC Risks and benefits of evaluation/treatment have been explained. Patient/Family/caregiver agrees with Plan of Care. Evaluation Time: Onesimo Leblanc Complexity Minutes (96476): 40 Signing Clinician: MARIXA Hale/Sudhakar [facility] OUTPATIENT OCCUPATIONAL THERAPY PLAN OF TREATMENT FOR OUTPATIENT REHABILITATION Patient's Last Name, First Name, Gato Yeh Date of : 1945 Provider's Name [facility] Onset Date: 03/22/24 Start of Care Date: 04/09/24 Medical Diagnosis: Temporal arteritis (H) (M31.6) PMR (polymyalgia rheumatica) OT Treatment Diagnosis: Cognitive changes, generalized weakness affecting ADL/IADLs Plan of Treatment Frequency/Duration:1x/week/60 days Certification date from 04/09/24 To 06/08/24 See note for plan of treatment details and functional goals Mary Mckinley OT I CERTIFY THE NEED FOR THESE SERVICES FURNISHED UNDER THIS PLAN OF TREATMENT AND WHILE UNDER MY CARE (Physician attestation of this document indicates review and certification of the therapy plan). Referring Provider: Christina Roe Initial Assessment See Epic Evaluation- 04/09/24 Associated attestation - Christina Roe PA-C - 04/09/2024 4:41 PM CDT Physician Attestation I agree with the information in this note. Christina Roe PA-C documented in this encounter Plan of Treatment Upcoming Encounters Date Type Department Care Team (Late st Contact Info) Description 05/20/2024 9:30 AM CDT Virtual Visit [facility] [address] [facility] [address] [place] [phone] Zhane Crain MD [address] [place], [place] [address] [facility] [address] [place] [address] 07/31/2024 2:00 PM SVP BUSINESS DEVELOPMENT Office Visit [facility] [address] [facility] [address] [place] [phone] Christina Roe PA-C [address] [place], [place] [phone] documented as of this encounter Visit Diagnoses Diagnosis Cognitive changes- Primary Other signs and symptoms involving cognition Temporal arteritis Giant cell arteritis PMR (polymyalgia rheumatica) (H24) Polymyalgia rheumatica Generalized muscle weakness Muscle weakness (generalized) documented in this encounter Care Teams Service Center Assistant Relationship Specialty Start Date End Date Feliciano Uribe MD [facility] [address] [place] [address] PCP - General Family Medicine 06/01/23 Christina Roe PA-C [address] [place] [address] Physician Marketing Development Specialist Rheumatology 11/06/23 Christina Roe PA-C [address] [place] [address] Assigned Rheumatology Provider 11/09/23 Richie Rowell RPH [address] [place] [address] Pharmacist Pharmacist 04/08/24 documented as of this encounter
--- OUTSIDE RECORDS SUMMARY | 2024-05-16 13:15 | XMS_ITS | Encounter Summary ---
Author Organization [place] Address [address] [place] [address]. [place] [address] Care Team Providers Care Rn Travel Name Role Phone Feliciano Uribe MD Primary Care Provider [phone] Christina Roe PA-C Unavailable [phone] Christina Roe PA-C Unavailable Richie Rowell [facility] Unavailable Richie Rowell [facility] Unavailable Reason for Visit * Reason Onset Date Comments Prior Auth - Medication 04/08/2024 Actemra Encounter Details Date Type Department Care Team ([facility] st Contact Info) Description 04/08/[address] [place] [address] Freddy Crain MD [address] [place] [id number] Prior Auth - Medication (Actemra) Social History Tobacco Use Types Packs/Day Years [...] encounter Miscellaneous Notes * Telephone Encounter - Adalberto Boles - 05/09/2024 2:28 PM CDT [place] APPROVED Medication: ACTEMRA ACTPEN 162 MG/0.9ML SC SOAJ Amount: $ 35,815.44 [facility] Name: [facility] Foundation Effective Date: 05/09/2024 Foundation Expiration Date: 08/26/2024 Additional Information: must fill with fvsp Patient Notified: yes * Telephone Encounter - Adalberto Boles - 05/08/2024 4:05 PM CDT Do we want the pens or syringes? Order currently will send as syringes * Telephone Encounter - Adalberto Boles - 05/05/2024 10:13 AM CDT [place] INITIATED Medication: ACTEMRA ACTPEN 162 MG/0.9ML SC SOAJ [facility] Name: [facility] Date submitted: 05/05/2024 10:13 AM * Telephone Encounter - Adalberto Boles - 05/02/2024 3:49 PM CDT Sent pt message about income documentation * Telephone Encounter - Adalberto Boles - 04/14/2024 3:47 PM CDT Sent pt a message asking if they require/eligible for FPAP * Telephone Encounter - Adalberto Boles - 04/11/2024 3:38 PM CDT Prior Authorization Approval Medication: ACTEMRA ACTPEN 162 MG/0.9ML SC SOAJ Authorization Effective Date: 04/11/2024 Authorization Expiration Date: 04/09/2025 Approved Dose/Quantity: 3.6 Reference #: [id number] Insurance Company: Medicare Blue - Expected CoPay: $ 2160.80 CoPay Card Available: No Financial Assistance Needed: no Which Pharmacy is filling the prescription: [facility] - [address] Pharmacy Notified: yes Patient Notified: yes * Telephone Encounter - Adalberto Boles - 04/09/2024 8:13 AM CDT PA Initiation Medication: ACTEMRA ACTPEN 162 MG/0.9ML SC SOAJ Insurance Company: Medicare Blue - Pharmacy Filling the Rx: [facility] - [address] Filling Pharmacy Phone: Filling Pharmacy Fax: Start Date: 04/09/2024 [id number] * Addendum Note - Freddy Crain MD - 04/08/2024 12:04 PM CDT Addended by: FREDDY CRAIN on: 05/08/2024 10:47 PM Modules accepted: Orders documented in this encounter Plan of Treatment Upcoming Encounters Date Type Department Care Team (Late st Contact Info) Description 05/20/2024 9:30 AM CDT Virtual Visit [facility] [address] [facility] [address] [place] [phone] Freddy Crain MD [address] [place] [address] Richie Rowell RPH [address] [place] [address] 07/31/2024 2:00 PM CHROME POLISHER Office Visit [facility] [address] [facility] [address] [place] [phone] Christina Roe PA-C [address] [place] [address] documented as of this encounter Visit Diagnoses Diagnosis GCA (giant cell arteritis)- Primary Giant cell arteritis documented in this encounter Care Teams Rn Travel Relationship Specialty Start Date End Date Feliciano Uribe MD [address] [address] PCP - General Family Medicine 06/01/23 Christina Roe PA-C [address] [place] [address] Physician Cadet Deck Rheumatology 11/06/23 Christina Roe PA-C [address] [place] [address] Assigned Rheumatology Provider 11/09/23 Richie Rowell RPH [address] [place] [address] Pharmacist Pharmacist 04/08/24 Richie Rowell RPH [address] [place] [address] Assigned MTM Pharmacist 04/18/24 documented as of this encounter
--- OUTSIDE RECORDS SUMMARY | 2024-05-16 13:15 | XMS_ITS | Encounter Summary ---
Author Organization [place] Address [address] [place] [address]. [place] [address] Care Team Providers Care Tumbler Dyeing Machine Operator Name Role Phone Feliciano Uribe MD Primary Care Provider Christina Roe PA-C Unavailable Christina Roe PA-C Unavailable Reason for Visit * Reason Onset Date Comments Appointment 03/28/2024 Encounter Details Date Type Department Care Team (Late st Contact Info) Description 03/28/2024 Telephone [facility] [address] [facility] 9[facility] [address] [place] [address] Jorge Kelly MD [address] [place] [address] Appointment Social History Tobacco Use Types Packs/Day [...] encounter Miscellaneous Notes * Telephone Encounter - Trinity Rodriguez - 04/01/2024 3:20 PM CDT I have called x 3 and left three VM Sent a Second Porch[employer] message This appointment has been canceled / not able to connect with pt or confirm appt Neuro is aware Trinity Rodriguez Communication Coiler Operator on 04/01/2024 at 3:21 PM * Telephone Encounter - Sony Gómez RN - 03/28/2024 9:58 AM CDT Pt scheduled 04-09-[address] Berry yesterday by Patient communicator. Sony Gómez RN 9:59 AM 03/28/24 * Telephone Encounter - Sony Gómez RN - 03/28/2024 6:57 AM CDT Pt been treated for likely Giant Cell Arteritis and seen by Ophthalmology in Hospital. Ok for next available neuro-ophthalmology appointment per neuro-ophthalmology team. Pt now discharged per my review. Will forward to patient communicator to assist in scheduling outpatient exam with neuro-ophthalmology/next available. Sony Gómez RN 6:59 AM 03/28/24 documented in this encounter Plan of Treatment Upcoming Encounters Date Type Department Care Team (Late st Contact Info) Description 05/20/2024 9:30 AM CDT Virtual Visit [facility] [address] [facility] [address] [place] [address] Zhane Crain MD [address] [place], [place] [phone] Richie Rowell RPH [address] [place] [address] 07/31/2024 2:00 PM APPRISE COUNSELOR Office Visit [facility] [address] [facility] [address] [place] [address] Christina Roe PA-C [address] [place] [address] documented as of this encounter Visit Diagnoses Not on filedocumented in this encounter Care Teams Tumbler Dyeing Machine Operator Relationship Specialty Start Date End Date Feliciano Uribe MD [address] [address] PCP - General Family Medicine 06/01/23 Christina Roe PA-C [address] [place] [address] Physician Inside Account Representative Rheumatology 11/06/23 Christina Roe PA-C [address] [place] [address] Assigned Rheumatology Provider 11/09/23 documented as of this encounter
--- OUTSIDE RECORDS SUMMARY | 2024-05-16 13:15 | XMS_ITS | Encounter Summary ---
Author Organization [facility] Address [address] [place] [address] Care Team Providers Care It Assistant Name Role Phone Feliciano Uribe MD Primary Care Provider Christina Roe PA-C Unavailable [phone] Christina Roe PA-C Unavailable [phone] Reason for Referral * Occupational Therapy (Routine: Next available opening) - Pending Review Specialty Diagnoses / Procedures Referred By Amena prasad Referred To Contact Diagnoses Temporal arteritis PMR (polymyalgia rheumatica) (H24) Christina Roe PA-C [address] [place] [address] Referral ID Status Reason Start Date Expiration Date V isits Requested Visits Authorized [id number] Pending Review 04/02/2024 04/02/2025 1 1 Question Answer Course of Action: Evaluation and Treatment Specialty Services: Per Associated Diagnosis Scheduling Instructions: [facility] will call you to coordinate your care as prescribed by your provider. If you don't hear from a telemarketing representative within 2 business days, please call . Comments Please be aware that coverage of these services is subject to the terms and limitations of your health insurance plan. Call member services at your health plan with any benefit or coverage questions. [facility] will call you to coordinate your care as prescribed by your provider. If you don't hear from a telemarketing representative within 2 business days, please call . Reason for Visit * Rehab Therapy Integrated Services (Routine: Next available opening) - Authorized Specialty Diagnoses / Procedures Referred By Amena prasad Referred To Contact Diagnoses Temporal arteritis PMR (polymyalgia rheumatica) (H24) [address] [address] Referral ID Status Reason Start Date Expiration Date V isits Requested Visits Authorized [id number] Authorized 03/27/2024 08/26/2024 365 365 Encounter Details Date Type Department Care Team (Late st Contact Info) Description 04/02/2024 2:15 PM CDT Therapy Visit [address] [place] [phone] Luz Yuan MD [address] [place] [address] [phone] Sue Gayle, PT [facility] [address] [place] [address] [phone] Impaired gait and mobility (Primary Dx); Temporal arteritis (H); PMR (polymyalgia rheumatica) (H24) Social History Tobacco Use Types Packs/Day Years [...] as of this encounter Progress Notes * Sue Gayle, PT - 04/02/2024 2:15 PM CDT PHYSICAL THERAPY EVALUATION Type of Visit: Evaluation Subjective Presenting condition or subjective complaint: walker not letting go memory conservibg my energy Gato Jimenez was admitted on 03/22/2024 with [...] clinicalpresentation. Patient started on IV methylprednisolone 1000 mg with improvement in her symptoms shortly after high dose steroids for three days. She was then transitioned to 60 mg prednisone with plans to continue slow taper on discharge. Ophthalmology exam improving on discharge and patient had recovery of her vision and her symptoms had largely resolved. Uses walker and cane at baseline. History of multiple falls with injury, 5-6 falls in the past year. States that her LEs would give out. Also had dizziness started about 1-2 years ago. Could be leaning forward and then just fall forward. Had a walker previously following knee replacement but now isusing at all times. No falls since discharging from the hospital. Has been encouraged to use the walker at all times which she feels comfortable with. Has frequent flairs of PMR, often has joint stiffness. Today is a good day overall. Date of onset: 03/12/24 Relevant medical history: Arthritis; Chest pain; Depression Dates & types of surgery: repacment three years sgo Prior diagnostic imaging/testing results: MRI; CT scan; X-ray; Bone scan; Other Prior therapy history for the same diagnosis, illness or injury: Prior Level of Function Transfers: Assistive equipment Ambulation: Assistive equipment Living Environment Social support: With a significant other or spouse Type of home: [facility]; 1 level Stairs to enter the home: Ramp: No Stairs inside the home: No Help at home: Self Cares (home health aide/personal attendant, family, etc) Equipment owned: Walker Employment: Hobbies/Interests: Patient goals for therapy: walking with walker so help wiyh the dizziness to not fall over Pain assessment: pt noting minimal pain today but frequently has flairs in PMR which cause increased pain Objective Cognitive Status Examination Orientation: Oriented to person, place and time Level of Consciousness: Alert Reports memory concerns, will request OT evaluation OBSERVATION: presents with 4ww, bruising around R eye following biopsy/hematoma RANGE OF MOTION: limited CROM by 50% STRENGTH: 4-/5 throughout LEs BED MOBILITY: reports mild difficulty when in a flair TRANSFERS: independent but reports more fatigue GAIT: Gait Description: ambulates with 4ww, good step length and denton, only mild path deviations notedwith PT asks pt to turn her head while walking. BALANCE: Pt does not wish to have balance assessed without walker at this time. SPECIAL TESTS Functional Gait Assessment (FGA) (<22/30 indicates fall risk) 10 Meter Walk Test (Comfortable) 0.72 m/s with 4ww 30 sec sit to stand 0 (7 reps with UE support) Dynamic Gait Index (DGI) (<19/24 indicates fall risk) Timed Up and Go (TUG) - sec 16 sec Single Leg Stance Right (sec) Single Leg Stance Left (sec) Modified CTSIB Conditions (sec) Cond 1: Cond 2: Cond 4: Cond 5 : Romberg (sec) Sharpened Romberg (sec) Assessment & Plan CLINICAL IMPRESSIONS Medical Diagnosis: Temporal arteritis (H) PMR (polymyalgia rheumatica) Treatment Diagnosis: Impaired strength and mobility Impression/Assessment: Patient is a 78 year old female with mobility complaints. The following significant findings have been identified: Pain, Decreased ROM/flexibility, Decreased strength, Impairedbalance, Impaired gait, Impaired muscle performance, Decreased activity tolerance, Impaired posture, Instability, Dizziness, Disequilibrium , and Impaired vision. These impairments interfere with their ability to perform self care tasks, recreational activities, church secretary, household mobility, community mobility, and increased fall risk as compared to previous level of function. Clinical Decision Making (Complexity): Clinical Presentation: Evolving/Changing Clinical Presentation Rationale: based on medical and personal factors listed in PT evaluation Clinical Decision Making (Complexity): Moderate complexity PLAN OF CARE Treatment Interventions: Interventions: Gait Training, Manual Therapy, Neuromuscular Re-education, Therapeutic Activity, Therapeutic Exercise, Self-Care/Home Management [facility] Goals PT Goal 1 Goal Identifier: HEP Goal Description: The pt will be independent with an HEP in order to improve self management of symptoms Target Date: 05/31/24 PT Goal 2 Goal Identifier: TUG Goal Description: The pt will improve time on TUG to <14.5 sec due to improvement in stability and safety with 4ww as well as household mobility Goal Progress: baseline: 16 sec Target Date: 05/31/24 PT Goal 3 Goal Identifier: 30 sec sit to stand Goal Description: The pt will complete 9 or more sit to stands in 30 seconds due to improvements infunctional LE strength and overall stability with transfers Goal Progress: baseline: 7 reps with UE support Target Date: 05/31/24 Frequency of Treatment: 1x/week Duration of Treatment: 60 days Recommended Referrals to Other Professionals: Occupational Therapy Education Assessment: Learner/Method: Patient Education Comments: PT role, POC Risks and benefits of evaluation/treatment have been explained. Patient/Family/caregiver agrees with Plan of Care. Evaluation Time: PT Lester Farris Minutes ([id number]): 30 Signing Clinician: Sue Gayle, PT [facility] OUTPATIENT PHYSICAL THERAPY PLAN OF TREATMENT FOR OUTPATIENT REHABILITATION Patient's Last Name, First Name, SivanOsvaldo JimenezGato J Date of : 1945 Provider's Name [facility] Onset Date: 03/12/24 Start of Care Date: 04/02/24 Medical Diagnosis: Temporal arteritis (H) PMR (polymyalgia rheumatica) PT Treatment Diagnosis: Impaired strength and mobility Plan of Treatment Frequency/Duration: 1x/week/ 60 days Certification date from 04/02/24 to 05/31/24 See note for plan of treatment details and functional goals Sue Gayle, PT I CERTIFY THE NEED FOR THESE SERVICES FURNISHED UNDER THIS PLAN OF TREATMENT AND WHILE UNDER MY CARE (Physician attestation of this document indicates review and certification of the therapy plan). Referring Provider: Luz Yuan Initial Assessment See Epic Evaluation- Start of Care Date: 04/02/24 Associated attestation - Christina Roe PA-C - 04/02/2024 3:21 PM CDT Physician Attestation I agree with the information in this note. Christina Roe PA-C documented in this encounter Plan of Treatment Upcoming Encounters Date Type Department Care Team (Late st Contact Info) Description 05/20/2024 9:30 AM CDT Virtual Visit [facility] [address] [place] [address] [address] [place] [phone] Zhane Crain MD [address] [place] [address] Richie Rowell, [facility] [address] [place] [address] 07/31/2024 2:00 PM JAVASCRIPT FRONT END DEVELOPER Office Visit [facility] [address] [facility] [address] [place] [phone] Christina Roe PA-C [address] [place] [address] Scheduled Referrals Name Type Priority Associated Diagnoses Order Schedule Occupational Therapy Capture Manager Referral Referral Routine: Next available opening Temporal arteritis (H) PMR (polymyalgia rheumatica) (H24) Expected: 04/02/2024 (Approximate), Expires: 04/02/2025 documented as of this encounter Visit Diagnoses Diagnosis Impaired gait and mobility- Primary Temporal arteritis Giant cell arteritis PMR (polymyalgia rheumatica) (H24) Polymyalgia rheumatica documented in this encounter Care Teams It Assistant Relationship Specialty Start Date End Date Feliciano Uribe MD [facility] - [address] [address] PCP - General Family Medicine 06/01/23 Christina Roe PA-C [address] [place] [address] Physician Closing Specialist Rheumatology 11/06/23 Christina Roe PA-C [address] [place] [address] Assigned Rheumatology Provider 11/09/23 documented as of this encounter
--- OUTSIDE RECORDS SUMMARY | 2024-05-16 13:15 | XMS_ITS | Encounter Summary ---
Author Organization [facility] Address [address] [place] [address] Care Team Providers Care Multi Media Specialist Name Role Phone Feliciano Uribe MD Primary Care Provider Christina Roe PA-C Unavailable [phone] Christina Roe PA-C Unavailable Villa Alexander RPH Unavailable Reason for Visit * Reason Comments Medication Therapy Management * Med Therapy Management (Routine: Next available opening) - Pending Review Specialty Diagnoses / Procedures Referred By Amena prasad Referred To Contact Pharmacist Diagnoses GCA (giant cell arteritis) Zhane Crain MD [address] [place] [address] Referral ID Status Reason Start Date Expiration Date V isits Requested Visits Authorized [id number] Pending Review 03/24/2024 03/24/2025 1 1 Encounter Details Date Type Department Care Team (Latest Contact Info) Description 04/08/2024 9:30 AM CDT Virtual Visit [facility] [address] [facility] [address] [place] [address] Zhane Crain MD [address] [place] [address] Villa Alexander RPH [address] [place] [address] GCA (giant cell arteritis) (H) (Primary Dx); PMR (polymyalgia rheumatica) (H24); Vaccine counseling; Primary hypertension; Hyperlipidemia, unspecified hyperlipidemia type; Anxiety; Depression, unspecified depression type; Hypothyroidism, unspecified type; Takes dietary supplements; Need for hepatitis B screening test Social [...] on file documented as of this encounter Patient Instructions * Patient Instructions* Villa Alexander, [facility] - 04/08/2024 9:30 AM CDT Recommendations from today's MTM visit: MTM (medication therapy management) is a service provided by a clinical pharmacist designed to helpyou get the most of out of your medicines. Today we reviewed what your medicines are for, how to know if they are working, that your medicinesare safe and how to make your medicine regimen as easy as possible. Villa will discuss lab monitoring with Dr. Crain that might be required before starting Actemra Pending potential labs, start Actemra 162 mg subcutaneous injection every 7 days. Administration Video: [email or web address] Follow-up: Return in 6 weeks (on 05/20/2024) for Follow up, with me, using a video visit. It was great speaking with you today. I value your experience and would be very thankful for your time in providing feedback in our clinic survey. In the next few days, you may receive an email or text message from [employer] with a link to a survey related to your ???clinical pharmacist. To schedule another MTM appointment, please call the clinic directly or you may call the MTM scheduling line at [phone] or toll-free at . My Clinical Pharmacist's contact information: Please feel free to contact me with any questions or concerns you have. Villa Alexander, PharmD Medication Therapy Management Pharmacist [facility] documented in this encounter Progress Notes * Villa Alexander RPH - 04/08/2024 9:30 AM CDT Medication Therapy Management (MTM) Encounter ASSESSMENT: Medication Adherence/Access: No issues identified Giant cell arteritis (GCA)/polymyalgia rheumatica (PMR): Provided education on Actemra today including dosing, general administration, side effects (both common/serious), precautions, monitoring and time to efficacy. Discussed data on malignancy and risk of serious infection in depth. Discussed potential need to hold therapy in the setting of signs/symptoms of active infection. Encouraged her to contact the rheumatology clinic in the event she has questions on this. Would benefit from starting Actemra and using 162 mg once weekly as directed. Recommend checking hepatitis B core antibody, hepatitis B surface antigen, hepatitis C antibody, and Quantiferon TB before starting Actemra. Recommend continue prednisone taper as directed and Bactrim for PJP prophylaxis while prednisone dose >20 mg/day. Recommend continue pantoprazole for GI protection while on prednisone taper. - Dr. Crain approved having hep b, hep c and quant TB tests 04/20/24. Vaccines: Per ACIP guidelines, patient is eligible for Pneumococcal and Zoster. Recommend holding vaccinations until dose of prednisone <20 mg/day to avoid affecting efficacy of vaccines. Hypertension: Stable. Patient is meeting blood pressure goal of < 140/90 mmHg. Hyperlipidemia: Stable, recommend checking lipid panel 4 to 8 weeks after starting Actemra as it has potential increase lipids. Anxiety/Depression: Well controlled on current regimen Hypothyroidism: Stable. Last TSH is within normal limits. Supplements: Stable. PLAN: Villa will discuss lab monitoring with Dr. Crain that might be required before starting Actemra Pending potential labs, start Actemra 162 mg subcutaneous injection every 7 days. Administration Video: [email or web address] Follow-up: Return in 6 weeks (on 05/20/2024) for Follow up, with me, using a video visit. SUBJECTIVE/OBJECTIVE: Gato Jimenez is a 79 year old female seen for an initial visit. She was referred to me from Zhane Crain MD. She has previously seen Christina Roe PA-C. Reason for visit: Actemra new start for GCA and comprehensive medication review. Allergies/ADRs: Reviewed in chart Past Medical History: Reviewed in chart Tobacco: She reports that she has never smoked. She has been exposed to tobacco smoke. She has never used smokeless tobacco. Alcohol: Less than 1 beverage / month Caffeine: 2-3 cups of coffee per day Medication Adherence/Access: no issues reported Giant cell arteritis (GCA)/polymyalgia rheumatica (PMR): Prednisone taper - current dose: 40 mg once daily Actemra 162 mg subcutaneously once weekly - has not started it yet Sulfamethoxazole/trimethoprim 800/160 mg on Mondays, Wednesdays, and Fridays for PJP prophylaxis Pantoprazole 40 mg once daily for GI protection Patient reports she feels better than she did 2 weeks ago when she had severe headache and jaw painwhile chewing. Since starting prednisone she is having trouble sleeping and feeling high energy. Report she has mild ache in neck, shoulders, and hips. Has mild headache, only had one instance of jawclaudication since discharge. Reports no other side effects or concerns with her medications. Last lab monitoring completed: 03/26/2024 Reviewed baseline pre-biologic screening. Hep C antibody not completed Hep B surface antibody not completed Hep B surface antigen not completed Hep B core antibody not completed Quantiferon TB not completed HIV antigen not completed Vaccines: Immunization History Administered Date(s) Administered COVID-19 Monovalent 18+ (Moderna) 10/15/2020, 11/12/2020 DT (PEDS <7y) 01/30/1980 Flu, Unspecified 05/05/2011, 06/21/2020 [id number] Novel Flu 06/28/2009 Influenza (High Dose) 3 valent vaccine 05/27/2014, 06/05/2016, 05/02/2017, 06/28/2018 Influenza (IIV3) PF 05/05/2011 Influenza Vaccine 65+ (Fluzone HD) 06/21/2020, 07/19/2021, 06/19/2023 Influenza, seasonal, injectable, PF 05/13/2009, 05/02/2012 Pneumo Conj 13-V (2010&after) 01/12/2015 Pneumococcal 23 valent 08/27/2007, 11/28/2013 TD,PF 7+ (Tenivac) 03/10/2005 TDAP (Adacel,Boostrix) 05/02/2012, 11/21/2021 Hypertension Amlodipine 5 mg once daily Lisinopril 10 mg twice daily Metoprolol tartrate 25 mg twice daily Patient reports no current medication side effects Patient self monitors blood pressure. Home BP monitoring 126/61 mmHg . Patient reports pulse 64 beats per minute. Hyperlipidemia Atorvastatin 10 mg daily Patient reports no significant myalgias or other side effects. Mental Health Anxiety and Depression Fluoxetine 40 mg once daily Patient reports no current medication side effects.Patient reports symptoms are stable. Hypothyroidism Levothyroxine 150 mcg daily Patient is having the following symptoms: none. Supplements Cyanocobalamin 1000 mcg every 30 days Vitamin D2 92750 units once weekly Multivitamin once daily Tums once daily No reported issues at this time. Today's Vitals: There were no vitals taken for this visit. Post Discharge Medication Reconciliation Status: discharge medications reconciled, continue medications without change. I spent 41 minutes with this patient today. All changes were made via collaborative practice agreement with Zhane Crain. A copy of the visit note was provided to the patient's provider(s). A summary of these recommendations was sent via [employer]. Villa Alexander, PharmD Medication Therapy Management Pharmacist [facility] Telemedicine Visit Details Type of service: Video Conference via [employer] Joined the call at 04/08/2024, 9:29:36 am. Left the call at 04/08/2024, 10:11:27 am. You were on the call for 41 minutes 51 seconds . Medication Therapy Recommendations GCA (giant cell arteritis) (H) Current Medication: tocilizumab (ACTEMRA) 162 MG/0.9ML subcutaneous injection Rationale: Does not understand instructions - Adherence - Adherence Recommendation: Provide Education Status: Patient Agreed - Adherence/Education Note: Actemra new start education provided Current Medication: tocilizumab (ACTEMRA) 162 MG/0.9ML subcutaneous injection Rationale: Medication requires monitoring - Needs additional monitoring Recommendation: Order Lab Status: Accepted per Provider Note: Hepatitis B core antibody, hep b surface antigen, hep c, quant TB documented in this encounter Miscellaneous Notes * Addendum Note - Villa Alexander RPH - 04/08/2024 9:30 AM CDTAddended by: VILLA ALEXANDER on: 04/10/2024 10:31 AM Modules accepted: Orders documented in this encounter Plan of Treatment Upcoming Encounters Date Type Department Care Team (Late st Contact Info) Description 05/20/2024 9:30 AM CDT Virtual Visit [facility] [address] [facility] [address] [place] [phone] Zhane Crain MD [address] [place] [address] Villa Alexander RPH [address] [place] [address] 07/31/2024 2:00 PM PHARMACY PICKING TECH Office Visit [facility] [address] [facility] [address] [place] [phone] Christina Roe PA-C [address] [place] [address] documented as of this encounter Results * Hepatitis B surface antigen (04/17/2024 1:11 PM CDT) Hepatitis B Surface Antigen Nonreactive Nonreactive 04/17/2024 8:05 PM CDT [facility] Blood STRUCTURE OF RIGHT UPPER LIMB / Unknown Venipuncture / Unknown 04/17/2024 1:11 PM CDT 04/17/2024 1:24 PM CDT Zhane Crain MD LAB - BLOOD ORDERABLES [facility]ORY [facility] [address] [facility], [place] [address] * Hepatitis B core antibody (04/17/2024 1:11 [...] LAB - BLOOD ORDERABLES Performing Organization Address [facility] Co de Phone Number [facility]ATORY [facility] [address] [facility] [phone] * Hepatitis C antibody (04/17/2024 1:11 PM [...] MD LAB - BLOOD ORDERABLES [facility] [address] [facility], [address] [phone] documented in this encounter Visit Diagnoses Diagnosis GCA (giant cell arteritis)- Primary Giant cell arteritis PMR (polymyalgia rheumatica) (H24) Polymyalgia rheumatica Vaccine counseling Primary hypertension Unspecified essential hypertension Hyperlipidemia, unspecified hyperlipidemia type Anxiety Anxiety state, unspecified Depression, unspecified depression type Hypothyroidism, unspecified type Takes dietary supplements Need for hepatitis B screening test documented in this encounter Care Teams Multi Media Specialist Relationship Specialty Start Date End Date Feliciano Uribe MD [address] [address] PCP - General Family Medicine 06/01/23 Christina Roe PA-C [address] [place] [address] Physician Supervisor [employer] Rheumatology 11/06/23 Christina Roe PA-C [address] [place] [address] Assigned Rheumatology Provider 11/09/23 Villa Alexander RPH [address] [place] [address] Pharmacist Pharmacist 04/08/24 documented as of this encounter
--- OUTSIDE RECORDS SUMMARY | 2024-05-16 13:15 | XMS_ITS | Encounter Summary ---
Author Organization [facility] Address [address] [place] [address]. [place] [address] Care Team Providers Care Healthcare Project Manager Name Role Phone Feliciano Uribe MD Primary Care Provider Christina Roe PA-C Unavailable Christina Roe PA-C Unavailable Richie Rowell [facility] Unavailable Richie Rowell [facility] Unavailable Zhane Crain MD Unavailable Encounter Details Date Type Department Care Team (Late st Contact Info) Description 04/21/2024 MyC Medical Advice [facility] [address] [facility] [address] [place] [address] Richie Rowell [facility] [address] [place], [place] [phone] Social History Tobacco Use Types Packs/Day Years [...] Description 05/20/2024 9:30 AM CDT Virtual Visit [facility] [address] [address] [place] [address] Zhane Crain MD [address] [place] [address] [id number] Richie Rowell RPH [address] [place] [phone] 07/31/2024 2:00 PM NEWS OPERATIONS MANAGER Office Visit [facility] [address] [facility] [address] [place] [phone] Christina Roe PA-C [address] [place] [address] documented as of this encounter Visit Diagnoses Not on filedocumented in this encounter Care Teams Healthcare Project Manager Relationship Specialty Start Date End Date Feliciano Uribe MD [facility] [address] [place] [address] PCP - General Family Medicine 06/01/23 Christina Roe PA-C [address] [place] [address] Physician Cyber Incident Analyst Rheumatology 11/06/23 Christina Roe PA-C [address] [place] [address] Assigned Rheumatology Provider 11/09/23 Richie Rowell RPH [address] [place] [phone] Pharmacist Pharmacist 04/08/24 Richie Rowell RPH [address] [place] [address] [phone] Assigned MTM Pharmacist 04/18/24 Zhane Crain MD [address] [place] [address] [phone] Physician Rheumatology 05/14/24 documented as of this encounter
--- OUTSIDE RECORDS SUMMARY | 2024-05-16 13:15 | XMS_ITS | Encounter Summary ---
Author Organization [facility] Address [address] [place] [address]. [place] [address] Care Team Providers Care Bench Lathe Operator Name Role Phone Feliciano Uribe MD Primary Care Provider Christina Roe PA-C Unavailable Christina Roe PA-C Unavailable Richie Rowell [facility] Unavailable Encounter Details Date Type Department Care Team (Latest Contact Info) Description 04/14/2024 Travel Social History Tobacco Use Types Packs/Day [...] Description 05/20/2024 9:30 AM CDT Virtual Visit [facility] [address] [place] [address] Zhane Crain MD [address] [place], [place] [phone] Richie Rowell RPH [address] [place] [address] 07/31/2024 2:00 PM TAR HEAT EXCHANGER CLEANER Office Visit [address] [place] [address] Christina Roe PA-C [address] [place] [address] documented as of this encounter Visit Diagnoses Not on filedocumented in this encounter Care Teams Bench Lathe Operator Relationship Specialty Start Date End Date Feliciano Uribe MD [address] [address] PCP - General Family Medicine 06/01/23 Christina Roe PA-C [address] [place] [address] Physician Heating Fixture Tender Rheumatology 11/06/23 Christina Roe PA-C [address] [place] [address] Assigned Rheumatology Provider 11/09/23 Richie Rowell RP [address] [place] [address] Pharmacist Pharmacist 04/08/24 documented as of this encounter
--- OUTSIDE RECORDS SUMMARY | 2024-05-16 13:15 | XMS_ITS | Encounter Summary ---
Author Organization [facility] Address [address] [place] [address]. [place] [address] Care Team Providers Care Pi/Senior Research Associate Name Role Phone Feliciano Uribe MD Primary Care Provider Christina Roe PA-C Unavailable Christina Roe PA-C Unavailable Richie Rowell [facility] Unavailable Richie Rowell [facility] Unavailable Zhane Crain MD Unavailable Encounter Details Date Type Department Care Team (Late st Contact Info) Description 04/09/2024 MyC Medical Advice [facility] [address] [facility] [address] [place] [address] Richie Rowell [facility] [address] [place], [place] [address] Social History Tobacco Use Types Packs/Day Years [...] Description 05/20/2024 9:30 AM CDT Virtual Visit [facility] [address] [facility] [address] [place] [address] Zhane Crain MD [address] [place] [address] [phone] Richie Rowell RPH [address] [place] [phone] 07/31/2024 2:00 PM SIGNALS ANALYST Office Visit [facility] [address] [facility] [address] [place] [phone] Christina Roe PA-C [address] [place] [address] documented as of this encounter Visit Diagnoses Not on filedocumented in this encounter Care Teams Pi/Senior Research Associate Relationship Specialty Start Date End Date Feliciano Uribe MD [facility] [address] [place] [address] PCP - General Family Medicine 06/01/23 Christina Roe PA-C [address] [place] [address] Physician Lost And Found Clerk Rheumatology 11/06/23 Christina Roe PA-C [address] [place] [address] Assigned Rheumatology Provider 11/09/23 Richie Rowell RPH [address] [place] [phone] Pharmacist Pharmacist 04/08/24 Richie Rowell RPH [address] [place] [address] [phone] Assigned MTM Pharmacist 04/18/24 Zhane Crain MD [address] [place] [address] [phone] Physician Rheumatology 05/14/24 documented as of this encounter
--- OUTSIDE RECORDS SUMMARY | 2024-05-16 13:16 | XMS_ITS | Encounter Summary ---
Author Organization [facility] Address [address] [place] [address]. [place] [address] Care Team Providers Care Snow Groomer Name Role Phone Feliciano Uribe MD Primary Care Provider Christina Roe PA-C Unavailable Christina Roe PA-C Unavailable Richie Rowell [facility] Unavailable Richie Rowell [facility] Unavailable Zhane Crain MD Unavailable Encounter Details Date Type Department Care Team (Late st Contact Info) Description 03/27/2024 [facility] [address] [place] [address] [facility] Social History Tobacco Use Types Packs/Day Years [...] Description 05/20/2024 9:30 AM CDT Virtual Visit [facility] [address] [facility] [address] [place] [phone] Zhane Crain MD [address] [place] [address] Richie Rowell RPH [address] [place] [address] 07/31/2024 2:00 PM BRAZER REPAIR AND SALVAGE Office Visit [facility] [address] [facility] [address] [place] [phone] Christina Roe PA-C [address] [place] [address] documented as of this encounter Visit Diagnoses Not on filedocumented in this encounter Care Teams Snow Groomer Relationship Specialty Start Date End Date Feliciano Uribe MD [address] [address] PCP - General Family Medicine 06/01/23 Christina Roe PA-C [address] [place] [address] Physician Corrugator Supervisor Rheumatology 11/06/23 Christina Roe PA-C [address] [place] [address] Assigned Rheumatology Provider 11/09/23 Richie Rowell RPH [address] [place] [phone] Pharmacist Pharmacist 04/08/24 Richie Rowell RPH [address] [place], [place] [phone] Assigned MTM Pharmacist 04/18/24 Zhane Crain MD [address] [place], [place] [phone] Physician Rheumatology 05/14/24 documented as of this encounter
--- OUTSIDE RECORDS SUMMARY | 2024-05-16 13:16 | XMS_ITS | Encounter Summary ---
Author Organization Wall Address [address] [place] [address]. [place] [address] Care Team Providers Care Bundle Tier Name Role Phone Feliciano Uribe MD Primary Care Provider Christina Roe PA-C Unavailable Christina Roe PA-C Unavailable [phone] Reason for Referral * Rehab Therapy Integrated Services (Routine: Next available opening) - Authorized Specialty Diagnoses / Procedures Referred By Amena prasad Referred To Contact Diagnoses Temporal arteritis PMR (polymyalgia rheumatica) (H24) [address] [address] Referral ID Status Reason Start Date Expiration Date V isits Requested Visits Authorized [id number] Authorized 03/27/2024 08/26/2024 365 365 Question Answer Course of Action: Evaluation and Treatment Specialty Services: Per Associated Diagnosis Scheduling Instructions: [facility] will call you to coordinate your care as prescribed by your provider. If you don't hear from a admitting representative within 2 business days, please call . Comments Please be aware that coverage of these services is subject to the terms and limitations of your health insurance plan. Call member services at your health plan with any benefit or coverage questions. [facility] will call you to coordinate your care as prescribed by your provider. If you don't hear from a admitting representative within 2 business days, please call . Reason for Visit * Reason Comments Neck Pain * Auth/Cert Specialty Diagnoses / Procedures Referred By Amena t Referred To Contact EMERGENCY MEDICINE Diagnoses Temporal arteritis (H) PMR (polymyalgia rheumatica) (H24) Decreased vision of right eye Right temporal headache Neck pain [facility] [address] [place] [address] Referral ID Status Reason Start Date Expiration Date Visits Re quested Visits Authorized [id number] 1 1 Encounter Details Date Type Department Care Team (Late st Contact Info) Description 03/22/2024 8:48 AM CDT - 03/26/2024 6:45 PM CDT Hospital Encounter [facility] 5A Oncology [address] [place], [place] [id number] Jona Sears MD [address] [place] [address] [phone] Marilee Deal MD [address] [place] [address] Luz Yuan MD [address] [place] [address] Urinary tract infection without hematuria, site unspecified (Primary Dx); Temporal arteritis (H); PMR (polymyalgia rheumatica) (H24); Decreased vision of right eye; Right temporal headache; Neck pain Discharge Disposition: Home or Self Care Social [...] Sign Reading Time Taken Comments Blood Pressure 111/80 03/26/2024 4:23 PM CDT Pulse 154 03/26/2024 4:09 PM CDT Temperature 36.7 ??C (98.1 ??F) 03/26/2024 4:09 PM CD T Respiratory Rate 18 03/26/2024 4:09 PM CDT Oxygen Saturation 96% 03/26/2024 4:09 PM CDT Inhaled Oxygen Concentration - - Weight 70 kg (154 lb 4.8 oz) 03/26/2024 8:40 AM CDT Height 152.4 cm (5') 03/23/2024 8:57 PM CDT Body Mass Index 30.13 03/23/2024 8:57 PM CDT documented in this encounter Discharge Summaries * Corinna Eller MD - 03/26/2024 6:45 PM CDT [facility] Discharge Summary - Medicine & Pediatrics Date of Admission: 03/22/2024 Date of Discharge: 03/26/2024 6:45 PM Discharging Provider: Dr. Luz Yuan Discharge Service: Medicine Service, [facility] TEAM 3 Discharge Diagnoses Blurry vision Head/neck pain Concern for giant cell arteritis Polymyalgia Rheumatica UTI 2/2 E coli LE edema C/f HFpEF Dizziness/falls Atrial fibrillation Possible volume overload/heart failure HTN Graves Disease Unilateral RLE swelling (resolved) Clinically Significant Risk Factors # Obesity: Estimated body mass index is 30.13 kg/m?? as calculated from the following: Height as of this encounter: 1.524 m (5'). Weight as of this encounter: 70 kg (154 lb 4.8 oz). Follow-ups Needed After Discharge Follow-up Appointments Adult [facility] Follow-up and recommended labs and tests Follow up with primary care provider, Felicinao Uribe, within 7 days to evaluate medication change, to evaluate treatment change, to evaluate after surgery, for hospital follow- up, and regarding new diagnosis. The following labs/tests are recommended: BMP and CBC. Follow up with rheumatology at your scheduled appointment Appointments on [facility] and/or [facility] (with [facility] or [facility] provider or service). Call [phone] if you haven't heard regarding these appointments within 7 days of discharge. Follow up with PCP and rheumatology Unresulted Labs Ordered in the Past 30 Days of this Admission No orders found from 02/21/2024 to 03/23/2024. These results will be followed up by PCP Discharge Disposition Discharged to home Condition at discharge: Stable Hospital Course Gato Partida was admitted on 03/22/2024 with a history of polymyalgia rheumatica on prednisone, SVT, A-fib, hypertension presenting with head/neck pain, dizziness, and blurred vision in her right eye admitted on 03/22 with unilateral vision loss concerning for possible Giant Cell Arteritis s/p temporal artery biopsy, which was negative but with continued treatment for likely GCA give clinicalpresentation. The following problems were addressed during her hospitalization: #Blurry vision #Head/neck pain #Possible giant cell arteritis #Polymyalgia Rheumatica Presented with approximately 10 days of progressively worsening right sided neck/head pain and blurry vision. Is also reporting left sided head pain, and jaw pain that worsens when chewing. On admission denies any visual field deficits. She was seen 03/15 for these symptoms and was prescribed 20mg pr ednisone for 5 days. Previously on prednisone 5mg daily for approximately a month for her polymyalgia rheumatica. Highly suspicious for giant cell arteritis, especially given patient demographics andpolymyalgia rheumatica diagnosis. Posterior stroke also considered due to vision changes. CTA chest, MRA brain and neck, MR brain and orbital, and US temporal artery were negative for signs of vasculitis or optic neuritis. On exam, vision of 20/70 right eye , 20/25 left eye , right-sided APD, minimal color vision deficit right eye, and mild optic disc elevation right eye. Notably patient's ESR 4,CRP <3, IL-6 <0.7 on admission. Patient started on IV methylprednisolone 1000 mg with improvement in her symptoms shortly after high dose steroids for three days. She was then transitioned to 60 mg prednisone with plans to continue slow taper on discharge. Ophthalmology exam improving on discharge and patient had recovery of her vision and her symptoms had largely resolved. - Rheumatology follow up outpatient - Ophthalmology follow up outpatient - Start prednisone 60mg daily Taper as follows: Week Daily Dose(mg) 1 60 2 50 3 40 4 35 5 30 6 25 7 20 8 15 9 12.5 10 12.5 11 10 12 9 1 13 8 14 7 15 6 16 6 17 5 18 5 19 4 20 4 21 3 22 3 23 2 24 2 25 1 26 1 - Start oral pantoprazole 40mg - Start Bactrim 800-160mg BID for 4 days to treat UTI and PJP prophylaxis, resume lower dose PJP prophylaxis once completed # UTI 2/2 E coli Urine culture collected on 03/22 positive for E coli, and patient endorsing dysuria prior to admission. WBC elevated to 12.0 on 03/24. Patient denies N/V, fevers, back pain. On discharge no further urinary symptoms - Bactrim 800-160mg BID for 4 days # LE edema # C/f HFpEF Patient endorsing bilateral LE swelling and edema that improves with raising her legs. TTE on 03/22 with normal L ventricular function and EF of 60-65%. - consider starting oral lasix if edema worsens outpatient #Dizziness/falls #Atrial fibrillation #Possible volume overload/heart failure #C/F GERD #Chest tightness Chronic dizziness and weakness that worsens when leaning forward, reports 3-4 falls within the last6 months. Self reports 15 pound weight gain over the past few months and lower extremity swelling over the past few days. Has been experiencing more severe episodes of a-fib in the past two weeks. One week ago describes having an intense pleuritic chest/rib pain that lasted for a few days, had had episodes similar in the past but have always resolved within hours. Denies chest pain/SOB on admission. Symptoms possibly related to polymyalgia, echo ordered due to concern for CHF, however EF and LV size normal. EKG on admission showing normal sinus. Troponin and TSH within normal range on admission. Orthostatic BP remain similar, HR were normal on discharge. Patient did have fleeting chest pressure that resolved with calcium carbonate - PT/OT following #HTN Patient with periods of hypertension and hypotension since admission. 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 - [employer] amlodipine 5mg daily and lisinopril 10mg BID - [employer] metoprolol tartrate 25mg BID - may also consider hydrochlorothiazide for treatment of steroid-induced HTN if necessary #Graves Disease - [employer] levothyroxine #Unilateral RLE swelling (resolved) On admission, patient thinks one leg appears more swollen than the other, denies LE pain. On 03/23 exam, extremities appear symmetric. - DVT US on 03/22 negative Consultations This Hospital Stay OPHTHALMOLOGY IP CONSULT RHEUMATOLOGY IP CONSULT SURGERY GENERAL ADULT IP CONSULT NEUROLOGY GENERAL ADULT IP CONSULT PHYSICAL THERAPY ADULT IP CONSULT OCCUPATIONAL THERAPY ADULT IP CONSULT NURSING TO CONSULT FOR VASCULAR ACCESS CARE IP CONSULT Code Status Prior The patient was discussed with Dr. Kwabena Eller MD, PhD [place] [address] Medicine Service [facility] 5A ONCOLOGY [address] [place] [address] Physical Exam Vital Signs: Temp: 98.1 ??F (36.7 ??C) Temp src: Oral BP: 111/80 Pulse: (!) 154 Resp: 18 SpO2: 96 %O2 Device: None (Room air) Weight: 154 lbs 4.8 oz General Appearance: NAD, well-appearing Respiratory: breathing comfortably on room air Cardiovascular: RRR GI: nondistended Extremities: Trace edema over bilateral lower extremities Psych: Normal mood, normal affect Primary Care Physician Feliciano Uribe Discharge Orders Physical Therapy Crate [employer] Referral Reason for your hospital stay You were hospitalized for giant cell arteritis, the biopsy did not show this but it is likely you still had it given you symptoms, therefore you should continue the steroids that rheumatology has prescribed. You also had a UTI which you will continue treating with antibiotics. After your antibiotics are done you will take antibiotics Sunday, Sunday and Sunday to prevent infection while you are on high dose steroids. Activity Your activity upon discharge: activity as tolerated Adult [facility] Follow-up and recommended labs and tests Follow up with primary care provider, Feliciano Uribe, within 7 days to evaluate medication change, to evaluate treatment change, to evaluate after surgery, for hospital follow- up, and regarding new diagnosis. The following labs/tests are recommended: BMP and CBC. Follow up with rheumatology at your scheduled appointment Appointments on [facility] and/or [facility] (with [facility] or [facility] provider or service). Call [phone] if you haven't heard regarding these appointments within 7 days of discharge. Diet Follow this diet upon discharge: Orders Placed This Encounter Regular Diet Adult Significant Results and Procedures Most Recent 3 CBC's: Recent Labs Lab Test 03/26/24 0614 03/25/24 1138 03/24/24 1730 WBC 13.4* 11.3* 17.2* HGB 12.9 12.8 13.5 MCV 92 92 92 PLT 196 195 227 Most Recent 3 BMP's: Recent Labs Lab Test 03/26/24 0614 03/25/24 0554 03/24/24 0509 NA 138 141 142 POTASSIUM 4.1 3.8 3.5 CHLORIDE 107 109* 110* CO2 20* 22 22 BUN 18.0 16.6 16.1 CR 0.68 0.67 0.61 ANIONGAP 11 10 10 CALDERON 8.3* 8.4* 8.6* GLC 123* 162* 172* Most Recent TSH and T4: Recent Labs Lab Test 03/22/24 0845 TSH 2.40 , Results for orders placed or performed during the hospital encounter of 03/22/24 MR Brain and Orbits w/o & w Contrast Narrative MR BRAIN AND ORBITS W/O & W [...] Relatively clear mastoid air cells. Normal orbits. Impression Impression: 1. No acute intracranial pathology. 2. Sequela of chronic small vessel ischemic disease. 3. Patent normal appearing major intracranial vasculature without evidence of significant vasculitis. Partially visualized temporal arteries are unremarkable. Ultrasound of the temporal arteries can be considered. I have personally reviewed the examination and initial interpretation and I agree with the findings. XI BACON MD MRA Angiogram Head w/o Contrast Narrative EXAM MRA BRAIN (PAIMIUT OF GREGORIO) W/O CONTRAST 03/22/2024 4:41 PM HISTORY: Headache; r/o Giant cell/temporal arteritis; Age > 50 years; No visual symptoms COMPARISON: None TECHNIQUE: Using a 3D [id number] image acquisition technique, MRA of the major [...] paranasal sinus, orbital, and/or skull base structures. Impression IMPRESSION: No large vessel occlusion, significant major intracranial arterial stenosis, or definite aneurysm. No definite enlarged temporal artery bilaterally. I have personally reviewed the examination and initial interpretation and I agree with the findings. XI BACON MD MRA Angiogram Neck w/o & w Contrast Narrative EXAM: MRA NECK (CAROTIDS) W/O & W [...] left internal carotid artery measures 5 mm. Impression IMPRESSION: Neck MRA demonstrates patent major cervical vasculature 40% right and 25% left proximal internal carotid artery narrowing. I have personally reviewed the examination and initial interpretation and I agree with the findings. XI BACON MD CTV Head Neck w Contrast Narrative EXAM: CTV HEAD NECK W CONTRAST 03/22/2024 [...] of the cervical spine, worst at C5-6. Impression Impression: No evidence of intracranial venous sinus thrombosis. I have personally reviewed the examination and initial interpretation and I agree with the findings. XI BACON MD US Lower Extremity Venous Duplex Right Narrative EXAMINATION: DOPPLER VENOUS ULTRASOUND OF THE RIGHT LOWER EXTREMITY, 03/22/2024 6:05 PM COMPARISON: None. HISTORY: Rule out DVT in swollen right leg TECHNIQUE: Anderson-scale evaluation with compression, spectral flow, and color Doppler assessment of the deep venous system of the right leg from groin to knee, and then at the ankle. Of note, Images are incorrectly labeled as left. FINDINGS: In the right lower extremity, the common femoral, femoral, popliteal and posterior tibial veins demonstrate normal compressibility and blood flow. Patent left common femoral vein Impression IMPRESSION: 1. No evidence of right lower extremity deep venous thrombosis. I have personally reviewed the examination and initial interpretation and I agree with the findings. TAMERA ANTHONY MD CTA Chest with Contrast Narrative Exam: Computed tomographic angiography of the chest [...] Multilevel degenerative changes throughout the visualized spine. Impression Impression: Unremarkable CTA of the chest. No findings to suggest giant cell arteritis. I have personally reviewed the examination and initial interpretation and I agree with the findings. CORINNA BERG MD US Temporal Arteries Duplex Narrative ULTRASOUND TEMPORAL ARTERIES DUPLEX 03/24/2024 3:02 PM CLINICAL HISTORY: bilateral temporal artery for R vision loss COMPARISONS: None available. ORDERING PROVIDER: KRISTEL SIMEON TECHNIQUE: Grayscale, color Doppler, Doppler waveform evaluation [...] PARIETAL BRANCH: 83/9 cm/s, 0.2 mm IMT Impression IMPRESSION: No halo sign to suggest active [...] 0.34 mm PARIETAL BRANCH: 0.29 mm MICHAEL DUENAS MD Echo Complete Value LVEF 60-65% Narrative [id number] [facility] [id number]^DIGNA^MARGARITA [facility] [address] [place] [address] Name: GATO PARTIDA : 1945 Study Date: 03/23/2024 07:53 AM Age: 78 yrs Gender: Female Patient Location: [facility] Reason For Study: Syncope Ordering Physician: MARGARITA SAWYER Performed By: Priscila Mann RDCS BSA: 1.6 m2 Height: 60 in Weight: 149 lb BP: 94/48 mmHg Procedure Complete Portable Echo Adult. Contrast Optison. Echocardiogram with two- dimensional, color and spectral Doppler performed. Optison ([facility] #[id number]) given intravenously. Patient was given 5 ml [...] Doppler Measurements & Calculations MV E max charla: 73.4 cm/sec MV A max charla: 118.4 cm/sec MV E/A: 0.62 MV dec time: 0.16 sec Ao V2 max: 161.2 cm/sec Ao max P.4 mmHg E/E' av.4 Lateral E/e': 9.5 Medial E/e': 11.2 RV S Charla: 14.7 cm/sec Report approved by: Angela Hernandez 03/23/2024 10:36 AM Discharge Medications Discharge Medication List as of 03/26/2024 5:51 PM START taking these medications Details methocarbamol (ROBAXIN) 500 MG tablet Take 1 tablet (500 mg) by mouth 4 times daily as needed for muscle spasms, Disp-10 tablet, R-0, E-Prescribe pantoprazole (PROTONIX) 40 MG EC tablet Take 1 tablet (40 mg) by mouth every morning (before breakfast), Disp-90 tablet, R-0, E-Prescribe !! predniSONE (DELTASONE) 1 MG tablet Take 9 tablets (9 mg) by mouth daily for 7 days, THEN 8 tablets (8 mg) daily for 7 days, THEN 7 tablets (7 mg) daily for 7 days, THEN 6 tablets (6 mg) daily for 14 days, THEN 5 tablets (5 mg) daily for 14 days, THEN 4 tablets (4 mg) daily for 14 days, TH EN 3 tablets (3 mg) daily for 14 days, THEN 2 tablets (2 mg) daily for 14 days, THEN 1 tablet (1 mg) daily for 14 days., Disp-462 tablet, R-0, E-Prescribe !! predniSONE (DELTASONE) 10 MG tablet Take 6 tablets (60 mg) by mouth daily for 5 days, THEN 5 tablets (50 mg) daily for 7 days, THEN 4 tablets (40 mg) daily for 7 days, THEN 3.5 tablets (35 mg) daily for 7 days, THEN 3 tablets (30 mg) daily for 7 days, THEN 2.5 tablets (25 mg) daily for 7 d ays, THEN 2 tablets (20 mg) daily for 7 days, THEN 1.5 tablets (15 mg) daily for 7 days., Disp-181 tablet, R-0, E-Prescribe !! predniSONE (DELTASONE) 5 MG tablet Take 2.5 tablets (12.5 mg) by mouth daily for 14 days, THEN 2tablets (10 mg) daily for 7 days., Disp-49 tablet, R-0, E-Prescribe !! sulfamethoxazole-trimethoprim (BACTRIM DS) 800-160 MG tablet Take 1 tablet by mouth 2 times daily for 2 days, Disp-4 tablet, R-0, E-Prescribe !! sulfamethoxazole-trimethoprim (BACTRIM DS) 800-160 MG tablet Take 1 tablet by mouth three times a week for 43 days, Disp-18 tablet, R-0, E-Prescribe !! - Potential duplicate medications found. Please discuss with provider. CONTINUE these medications which have NOT CHANGED Details amLODIPine (NORVASC) 10 MG tablet Take 1 tablet by mouth daily at 2 pm, Historical amoxicillin (AMOXIL) 500 MG capsule TAKE 4 CAPSULES BY MOUTH 1 HOUR BEFORE DENTAL APPOINTMENT FOR 1DOSE, Historical atorvastatin (LIPITOR) 10 MG tablet Take 10 mg by mouth at bedtime, Historical Cyanocobalamin 1000 MCG/ML KIT 1,000 mcg every 30 days, Historical D3-50 1.25 MG (98594 UT) capsule Take 1,250 mcg by mouth once a week, DEE, Historical FLUoxetine (PROZAC) 40 MG capsule Take 40 mg by mouth daily, Historical HYDROcodone-acetaminophen (NORCO) 5-325 MG tablet Take 1 tablet by mouth every 8 hours as needed for pain, Historical levothyroxine (SYNTHROID/LEVOTHROID) 150 MCG tablet Take 150 mcg by mouth daily, Historical lisinopril (ZESTRIL) 10 MG tablet Take 10 mg by mouth 2 times daily, Historical metoprolol tartrate (LOPRESSOR) 25 MG tablet Take 25 mg by mouth 2 times daily, Historical nitroGLYcerin (NITROSTAT) 0.[address] 0.4 mg under the tongue, Historical tocilizumab (ACTEMRA) 162 MG/0.9ML subcutaneous injection Inject 0.9 mLs (162 mg) subcutaneously once a week for 90 days Hold for signs of infection, and seek medical attention., Disp-3.6 mL, R-2, Injection2 Syringes = 1 Month Allergies 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 I discussed the patient with the resident/fellow and agree with plan of care as documented in the note. I personally reviewed vital signs, medications, labs, and imaging. I personally spent 35 minutes on discharge activities. Luz Yuan MD Date of Service (when I saw the patient): 03/26/24 documented in this encounter Discharge Instructions * Discharge Instructions* Corinna Eller MD - 03/26/2024 3:57 PM CDT Per rheumatology, your steroid taper is as follows Weeks of treatment Dosage 1 60 2 50 3 40 4 35 5 30 6 25 7 20 8 15 9 12.5 10 12.5 11 10 12 9 13 8 14 7 15 6 16 6 17 5 18 5 19 4 20 4 21 3 22 3 23 2 24 2 25 1 26 1 Follow with rheumatology outpatient You will take bactrim for prophylaxis until your steroid dose is below 20 mg daily documented in this encounter Medications at Time of Discharge Medication Sig Dispensed Refills Start Date End Date amLODIPine (NORVASC) 5 MG tablet Take 5 mg by mouth daily 03/08/2024 amoxicillin (AMOXIL) 500 MG capsule TAKE 4 CAPSULES BY MOUTH 1 HOUR BEFORE DENTAL APPOINTMENT FOR 1 DOSE 11/06/2022 atorvastatin (LIPITOR) 10 MG tablet Take 10 mg by mouth at bedtime Cyanocobalamin 1000 MCG/ML KIT 1,000 mcg every 30 days D3-50 1.25 MG (18277 UT) capsule Take 1,250 mcg by mouth once a week FLUoxetine (PROZAC) 40 MG capsule Take 40 mg by mouth daily levothyroxine (SYNTHROID/LEVOTHROI D) 150 MCG tablet Take 150 mcg by mouth daily lisinopril (ZESTRIL) 10 MG tablet Take 10 mg by mouth 2 times daily 09/14/2023 methocarbamol (ROBAXIN) 500 MG tabletIndications:Ne ck pain Take 1 tablet (500 mg) by mouth 4 times daily as needed for muscle spasms 10 tablet 03/26/2024 metoprolol tartrate (LOPRESSOR) 25 MG tablet Take 25 mg by mouth 2 times daily 09/14/2023 nitroGLYcerin (NITROSTAT) 0.[address] 0.4 mg under the tongue 11/21/2021 pantoprazole (PROTONIX) 40 MG EC tabletIndications:Te mporal arteritis,PMR (polymyalgia rheumatica) (H24) Take 1 tablet (40 mg) by mouth every morning (before breakfast) 90 tablet 03/27/2024 predniSONE (DELTASONE) 1 MG tabletIndications:Te mporal arteritis,PMR (polymyalgia rheumatica) (H24) Take 9 tablets [...] mg) daily for 14 days. 462 tablet 06/10/2024 09/23/2024 predniSONE (DELTASONE) 10 MG tabletIndications:Te mporal arteritis,PMR (polymyalgia rheumatica) (H24) Take 6 tablets [...] mg) daily for 7 days. 181 tablet 03/27/2024 05/20/2024 predniSONE (DELTASONE) 5 MG tabletIndications:Te mporal arteritis,PMR (polymyalgia rheumatica) (H24) Take 2.5 tablets (12.5 mg) by mouth daily for 14 days, THEN 2 tablets (10 mg) daily for 7 days. 49 tablet 05/20/2024 06/10/2024 sulfamethoxazole-tri methoprim (BACTRIM DS) 800-160 MG tabletIndications:Ur inary Tract Infection,And PCP prophylaxis Take 1 tablet by mouth 2 times daily for 2 days 4 tablet 03/26/2024 03/28/2024 sulfamethoxazole-tri methoprim (BACTRIM DS) 800-160 MG tabletIndications:pr ophylaxis Take 1 tablet by mouth three times a week for 43 days 18 tablet 03/31/2024 05/13/2024 amLODIPine (NORVASC) 10 MG tablet Take 1 tablet by mouth daily at 2 pm 10/14/2023 04/08/2024 HYDROcodone-acetamin ophen (NORCO) 5-325 MG tablet Take 1 tablet by mouth every 8 hours as needed for pain 12/27/2022 04/08/2024 tocilizumab (ACTEMRA) 162 MG/0.9ML subcutaneous injectionIndications :GCA (giant cell arteritis) Inject 0.9 mLs (162 mg) subcutaneously once a week for 90 days Hold for signs of infection, and seek medical attention. 3.6 mL 2 03/24/2024 04/08/2024 documented as of this encounter Progress Notes * Breann Horn MD - 03/26/2024 12:26 PM CDT General Surgery Progress Note Subjective: NAEON. Feeling well today. Pain controlled. No nausea vomiting or expansion of hematoma Objective: Temp: [97.5 ??F (36.4 ??C)-98.3 ??F (36.8 ??C)] 98 ??F (36.7 ??C) Pulse: [68-89] 68 Resp: [14-22] 16 BP: (101-163)/(55-98) 101/61 SpO2: [93 %-100 %] 95 % I/O last 3 completed shifts: In: 1425 [P.O.:240; I.V.:1185] Out: 1210 [Urine:1200; Blood:10] Gen: NAD HEENT: palpable hematoma on right improved in coloration and stable size. Left side is bruised without hematoma Resp: NLB on RA CV: WWP Abd: Soft, ND, NT, incision c/d/i Ext: no gross deformities A/P: Gato Partida is a 78 year old female s/p bilateral temporal artery biopsy. - recovering well - ok to discharge from EGS perspective - EGS will sign off Discussed with staff Breann Horn MD PGY-7 General Surgery Associated attestation - Richie Hawk DO - 03/27/2024 11:46 AM CDT Physician Attestation I saw this patient with the resident and agree with the resident/fellow's findings and plan of careas documented in the note. Quiñonez findings: surgically stable for discharge Please see A&P for additional details of medical decision making. Richie Hawk DO Date of Service (when I saw the patient): 03/26/24 * Gayle Jha MD - 03/25/2024 9:58 PM CDT Images from the original note were not included. Emergency General Surgery Progress Note Surgery Cross-Cover Post Op Check 03/25/2024 Gato Partida is a 78 year old female POD#0 s/p Procedure(s): Bilateral temporal Artery Biopsy for Pre-Op Diagnosis Codes: * Temporal arteritis (H) [M31.6] Pt reports their pain is controlled with current regimen. Patient asleep on entry to room but wakesto voice and conversational. Denies nausea, SOB, chest pain, or dizziness. She denies any pain at her site of hematoma and no headache or vision changes. Patient is not passing flatus or having bowelmovements and Is voiding spontaneously. BP 134/59 (BP Location: Right arm) Pulse 87 Temp 98.3 ??F (36.8 ??C) (Oral) Resp 14 Ht 1.524 m (5') Wt 69.2 kg (152 lb 8 oz) SpO2 93% BMI 29.78 kg/m?? Gen: A&O x4, NAD HEENT: Hematoma on right upper forehead covered by bandage and tape for pressure dressing. No enlargement of hematoma, non-tender to palpation. Chest: breathing non-labored on RA Abdomen: soft, non-tender, non-distended Extremities: warm and well perfused A/P: No acute post-op issues. Continue plan of care per primary team. Please call with any questions. Gayle Jha MD PGY-1, General Surgery * Jenna Pablo RN - 03/25/2024 7:04 PM CDT Came back from PACU around 18:25, via stretcher. Alert and oriented x4, able to make needs known. Slid down independently from stretcher to bed. 4 eye skin check done. C/o pain on both shoulders and neck, PRN robaxin given. Ate food brought by family, observing if she can tolerate. On O2 @ 1 Lpm via NC. Continue with POC. * Jenna Pablo RN - 03/25/2024 7:01 PM CDT Admitted/transferred from: PACU 2 RN full except buttocks skin assessment completed by Jenna Pablo RN and Shoshana Crow RN. Skin assessment finding: issues found L temporal area surgical incision,MANAGER SOLAR. R temporal area surgical incision with pressure dressing on, generalized mild swelling. Scattered bruises on both FA. Interventions/actions: other none Will continue to monitor. * Mikhail Leon MD - 03/25/2024 11:37 AM CDT [facility] Progress Note - Medicine Service, [facility] TEAM 3 Date of Admission: 03/22/2024 Assessment & Plan Gato Partida is a 78 year old female admitted on 03/22/2024. She has a history of polymyalgia rheumatica on prednisone, SVT, A-fib, hypertension presenting with head/neck pain, dizziness, and blurred vision in her right eye admitted on 03/22 with unilateral vision loss concerning for possible Giant Cell Arteritis. Changes today: - Temporal artery biopsy 03/25/24 - Bactrim to treat UTI and PJP prophylaxis - Discontinued IV ceftriaxone for UTI - Held prophylactic bactrim for PJP, start following 4 day course of higher dose Bactrim for UTI #Blurry vision #Head/neck pain #Possible giant cell arteritis #Polymyalgia Rheumatica Presented with approximately 10 days of progressively worsening right sided neck/head pain and blurry vision. Is also reporting left sided head pain, and jaw pain that worsens when chewing. Currentlydenies any visual field deficits. She was seen 03/15 for these symptoms and was prescribed 20mg prednisone for 5 days. Previously on prednisone 5mg daily for approximately a month for her polymyalgia rheumatica. Highly suspicious for giant cell arteritis, especially given patient demographics and polymyalgia rheumatica diagnosis. Posterior stroke also considered due to vision changes. CTA chest, MRA brain and neck, MR brain and orbital, and US temporal artery were negative for signs of vasculitis or optic neuritis. On exam, vision of 20/70 right eye , 20/25 left eye , right- sided APD, minimal color vision deficit right eye, and mild optic disc elevation right eye. Notably patient's ESR 4, CRP <3, IL-6 <0.7 on admission. - Rheumatology following - Ophthalmology following - Neurology consulted and signed off 03/23/24 - Surgery consulted for temporal artery biopsy - performed on 03/25/24 - Start prednisone 60mg daily - Start oral pantoprazole 40mg - Start Bactrim 800-160mg BID for 4 days to treat UTI and PJP prophylaxis, resume lower dose PJP prophylaxis once completed - Daily ESR, CRP # UTI 2/2 E coli Urine culture collected on 03/22 positive for E coli, and patient endorsing dysuria prior to admission. WBC elevated to 12.0 on 03/24. Patient denies N/V, fevers, back pain. - Discontinue ceftriaxone - Start Bactrim 800-160mg BID for 4 days LE edema C/f HFpEF Patient endorsing bilateral LE swelling and edema that improves with raising her legs. TTE on 03/22 with normal L ventricular function and EF of 60-65%. - consider starting oral lasix if edema worsens #Dizziness/falls #Atrial fibrillation #Possible volume overload/heart failure Chronic dizziness and weakness that worsens when leaning forward, reports 3-4 falls within the last6 months. Self reports 15 pound weight gain over the past few months and lower extremity swelling over the past few days. Has been experiencing more severe episodes of a-fib in the past two weeks. One week ago describes having an intense pleuritic chest/rib pain that lasted for a few days, had had episodes similar in the past but have always resolved within hours. Denies chest pain/SOB on admission. Symptoms possibly related to polymyalgia, echo ordered due to concern for CHF, however EF and LV size normal. EKG on admission showing normal sinus. Troponin and TSH within normal range on admission. Orthostatic BP remain similar, however HR elevation from 80 to 99bpm. - PT/OT following #HTN Patient with periods of hypertension and hypotension since admission. 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 - FEEDER SWITCHBOARD OPERATOR amlodipine 5mg daily and lisinopril 10mg BID - holding metoprolol tartrate 25mg BID, consider restarting if patient continues to be hypertensive - may also consider hydrochlorothiazide for treatment of steroid-induced HTN if necessary #Graves Disease - FEEDER SWITCHBOARD OPERATOR levothyroxine #Unilateral RLE swelling (resolved) On admission, patient thinks one leg appears more swollen than the other, denies LE pain. On 03/23 exam, extremities appear symmetric. - DVT US on 03/22 negative Diet: NPO per Anesthesia Guidelines for Procedure/Surgery Except for: Meds DVT Prophylaxis: ambulating, mechanical VTE prophylaxis Emery Catheter: Not present Fluids: LR 100mL/hr maintenance fluids Lines: None Cardiac Monitoring: ACTIVE order. Indication: Tachyarrhythmias, acute (48 hours) Code Status: Full Code Clinically Significant Risk Factors # Hypertension: Noted on problem list # Overweight: Estimated body mass index is 29.78 kg/m?? as calculated from the following: Height as of this encounter: 1.524 m (5'). Weight as of this encounter: 69.2 kg (152 lb 8 oz)., PRESENT ON ADMISSION Disposition Plan Expected Discharge Date: 03/26/2024 The patient's care was discussed with the Attending Physician, Dr. Yuan . Mikhail Leon MD Medicine Service, [address] Securely message with [employer] (more info) Text page via [facility] Paging/Directory See signed in provider for up to date coverage information Interval History Patient reports she is feeling much better today. She has numbness over the left side of her head and arms that has been improving since admission. She denies any dysuria or blood in the urine today. Physical Exam Vital Signs: Temp: 97.8 ??F (36.6 ??C) Temp src: Oral BP: (!) 184/84 (post ambulation with PT) Pulse: 79 Resp: 18 SpO2: 97 % O2 Device: None (Room air) Weight: 152 lbs 8 oz General Appearance: NAD, well-appearing Respiratory: CTAB, no crackles, no wheezing Cardiovascular: no JVD, RRR, no murmurs GI: soft, nontender, nondistended Extremities: Trace edema over bilateral lower extremities Psych: Normal mood, normal affect Medical Decision Making Please see A&P for additional details of medical decision making. Data I have personally reviewed the following data over the past 24 hrs: 17.2 (H) \ 13.5 / 227 141 109 (H) 16.6 / 162 (H) 3.8 22 0.67 \ Procal: N/A CRP: <3.00 Lactic Acid: N/A Imaging results reviewed over the past 24 hrs: Recent Results (from the past 24 hour(s)) US Temporal Arteries Duplex Narrative ULTRASOUND TEMPORAL ARTERIES DUPLEX 03/24/2024 3:02 PM CLINICAL HISTORY: bilateral temporal artery for R vision loss COMPARISONS: None available. ORDERING PROVIDER: KRISTEL SIMEON TECHNIQUE: Grayscale, color Doppler, Doppler waveform evaluation [...] PARIETAL BRANCH: 83/9 cm/s, 0.2 mm IMT Impression IMPRESSION: No halo sign to suggest active inflammation. Right parietal branch 0.3 mm intima medial thickness. Otherwise negative study.. Cristina?reina VS , Jushraddha A, Rangel S, Jaswant A, [place]. Ultrasound cut-off values for intima-media thickness of temporal, facial and axillary arteries in giant cell arteritis. Rheumatology 2017;56:[id number]. IMT CUT-OFF VALUES COMMON TEMPORAL ARTERY: 0.42 mm FRONTAL BRANCH: 0.34 mm PARIETAL BRANCH: 0.29 mm MICHAEL DUENAS MD Associated attestation - Luz Yuan MD - 03/26/2024 7:22 AM CDT Physician Attestation I saw this patient with the resident and agree with the resident/fellow's findings and plan of careas documented in the note. Quiñonez findings: - Planning for temporal artery biopsy today with surgery. - mIVF while NPO given frequent NPO and poor PO intake - Transitioned to PO prednisone and PPI - Can likely discharge tmrw after biopsy pending pain control and monitoring. Please see A&P for additional details of medical decision making. 55 MINUTES SPENT BY ME on the date of service doing chart review, history, exam, documentation & further activities per the note. I have personally reviewed the following data over the past 24 hrs: 13.4 (H) \ 12.9 / 196 N/A N/A N/A / N/A N/A N/A N/A \ Luz Yuan MD Date of Service (when I saw the patient): 03/25/24 * Alba Morrow, PT - 03/25/2024 9:25 AM CDT 03/25/24924 Appointment Info Signing Clinician's Name / Credentials (PT) Alba Morrow, PT, DPT Living Environment People in Home spouse Current Living Arrangements house Home Accessibility no concerns Transportation Anticipated family or friend will provide Living Environment Comments Pt lives in a single level home w/ . LOBO and Gato are retired. Has good additional family/friend support. Pt has walk in shower. Self-Care Usual Activity Tolerance good Current Activity Tolerance moderate Regular Exercise Yes Activity/Exercise Type swimming (Fusion aqua class at [facility]) Exercise Amount/Frequency 3-5 times/wk Equipment Currently Used at Home cane, straight;walker, rolling;walker, standard (4WW and FWW) Fall history within last six months yes Number of times patient has fallen within last six months (5-6) Activity/Exercise/Self-Care Comment Pt uses a SPC or 4WW for longer distance walking. Also owns a FWW she could use in the house if needed. Pt reports B shoulder pain and neck stifness that started in August, new diagnosis of polymyalgia. Had OP PT to assist with strengthening/stretching. Pt reports new recent increase in onset of head/jaw pain and vision impairments. R eye has improved with steroid treatments but continues to feel cloudy. Pt endorses 5-6 falls in the past 6 months. Pt reports falling when reachign ot complete gardening activities due to feeling like im drunk and woozy. Another fall from ankle/knee giving out stepping off a small step. Pt endorses difficulty with medication set-up, able to have assist from SO if needed. General Information Onset of Illness/Injury or Date of Surgery 03/22/24 Referring Physician Margarita Sawyer MD Patient/Family Therapy Goals Statement (PT) none stated Pertinent History of Current Problem (include personal factors and/or comorbidities that impact thePOC) Pt is a 78 year old female admitted on 03/22/2024. She has a history of polymyalgia rheumatica on prednisone, SVT, A- fib, hypertension presenting with head/neck pain, dizziness, and blurred vision in her right eye admitted on 03/22 with unilateral vision loss concerning for possible Giant Cell Arteritis. Existing Precautions/Restrictions fall Cognition Affect/Mental Status (Cognition) confused (hyberverbal, tangential) Orientation Status (Cognition) oriented x 4 Follows Commands (Cognition) WFL Cognitive Status Comments Pt reports difficulty with memory, currently completes her own medicationset up. SO able to assist if needed. Posture Posture Forward head position Range of Motion (ROM) ROM Comment BLE ROM WFL. Strength (Manual Muscle Testing) Strength Comments BLE strength >4/5 Bed Mobility Comment, (Bed Mobility) IND Transfers Comment, (Transfers) sit<>stand SBA Gait/Stairs (Locomotion) Comment, (Gait/Stairs) Pt ambulated 20 ft without an AD, CGA. Pt ambulates with decreased denton and mild path deviations Balance Balance Comments normal JASWINDER EO/EC x 10 seconds, increased postural sway with eyes closed without LOB. LOB with head turnsduring dynamic balance requiring miN A. Sensory Examination Sensory Perception Comments Numbness and decreased sensation to entire R hemibody. Clinical Impression Criteria for Skilled Therapeutic Intervention Yes, treatment indicated PT Diagnosis (PT) impaired functional mobility Influenced by the following impairments impaired balance, impaired sensation Functional limitations due to impairments difficulty with transfers and ambulation. Clinical Presentation (PT Evaluation Complexity) stable Clinical Presentation Rationale medical status, level of impairments Clinical Decision Making (Complexity) low complexity Planned Therapy Interventions (PT) balance training;gait training;home exercise program;patient/family education;transfer training Risk & Benefits of therapy have been explained evaluation/treatment results reviewed;care plan/treatment goals reviewed;risks/benefits reviewed;current/potential barriers reviewed;participants voiced agreement with care plan;participants included;patient PT Total Evaluation Time PT Eval, Low Complexity Minutes (88806) 18 PT Discharge Planning PT Plan Ambulate with 4WW vs. SPC PT Discharge Recommendation (DC Rec) home with assist;home with outpatient physical therapy PT Rationale for DC Rec Pt presents with impaired sensation and impaired balance. Pt has a SPC, FWWand 4WW at home, was using an AD intermittently. Recommend discharge to home with assist, use of FWW with all mobility within and outside the home, OP PT to address higher level balance and return toambulation without an AD. PT Brief overview of current status Ax1 with GB and FWW, encourage ambulation 4x/day with assist. * Ana Hill, OT - 03/25/2024 9:22 AM CDT 03/24/24 0842 Appointment Info Signing Clinician's Name / Credentials (OT) BLAYNE Nguyen Student Supervision Line of sight supervision provided Living Environment People in Home spouse Current Living Arrangements house Home Accessibility no concerns Transportation Anticipated family or friend will provide Living Environment Comments Pt lives in a single level home w/ . Has good additional family/friend support. Pt has walk in shower. Self-Care Usual Activity Tolerance good Current Activity Tolerance moderate Regular Exercise No Equipment Currently Used at Home cane, quad Fall history within last six months yes Number of times patient has fallen within last six months 3 Activity/Exercise/Self-Care Comment Pt uses cane for security with moving, pt ordered a FWW for home. Pt was previously ind with all self-cares Instrumental Activities of Daily Living (IADL) IADL Comments Pt has assist from with heavier IADLs, pt does not drive. A from [employer] [facility]. General Information Onset of Illness/Injury or Date of Surgery 03/22/24 Referring Physician Margarita Sawyer MD Patient/Family Therapy Goal Statement (OT) To return home Additional Occupational Profile Info/Pertinent History of Current Problem Per chart: Gato Partida is a 78 year old female admitted on 03/22/2024. She has a history of polymyalgia rheumatica on prednisone, SVT, A-fib, hypertension presenting with head/neck pain, dizziness, and blurred vision inher right eye admitted on 03/22 with unilateral vision loss concerning for possible Giant Cell Arteritis Existing Precautions/Restrictions fall Left Upper Extremity (Weight-bearing Status) full weight-bearing (FWB) Right Upper Extremity (Weight-bearing Status) full weight-bearing (FWB) Left Lower Extremity (Weight-bearing Status) full weight-bearing (FWB) Right Lower Extremity (Weight-bearing Status) full weight-bearing (FWB) General Observations and Info Pt below functional baseline, primarily impacted by dizziness and blurred vision impacting ind and safety with I/ADLs Cognitive Status Examination Orientation Status orientation to person, place and time Visual Perception Visual Impairment/Limitations blurry vision;corrective lenses full-time Sensory Sensory Comments Pt reports R-sided numbness and tingling throughout UE and LEs Posture Posture forward head position;protracted shoulders Range of Motion Comprehensive General Range of Motion no range of motion deficits identified Strength Comprehensive (MMT) Comment, General Manual Muscle Testing (MMT) Assessment Pt reports fluctuating strength deficits. Pt reports sometimes not being able to lift/drying machine tender a coffee cup. Coordination Coordination Comments Per chart, pt reports coordination deficits with movement Bed Mobility Comment (Bed Mobility) Pt SBA with bed mobility Transfers Transfers sit-stand transfer;toilet transfer;shower transfer Sit-Stand Transfer Sit-Stand [place] (Transfers) contact guard Shower Transfer Type (Shower Transfer) lateral [place] Level (Shower Transfer) modified independence Assistive Device (Shower Transfer) grab bar, tub rail Shower Transfer Comments Per clinical judgement Toilet Transfer Type (Toilet Transfer) sit-stand;stand-sit [place] Level (Toilet Transfer) modified independence Assistive Device (Toilet Transfer) grab bars/safety frame Balance Balance Comments Per chart pt reports LOB primarily with activities that involve bending over Activities of Daily Living BADL Assessment/Intervention bathing;lower body dressing;grooming;toileting Bathing Assessment/Intervention [place] Level (Bathing) minimum assist (75% patient effort) Comment, (Bathing) Per clinical judgement Lower Body Dressing Assessment/Training Comment, (Lower Body Dressing) Per clinical judgement [place] Level (Lower Body Dressing) minimum assist (75% patient effort) Grooming Assessment/Training [place] Level (Grooming) minimum assist (75% patient effort) Comment, (Grooming) Per clinical judgement, pt reports on days that fluctuates symptoms, pt not able to get UE's over head Toileting Comment, (Toileting) Per clinical judgement [place] Level (Toileting) modified independence Clinical Impression Criteria for Skilled Therapeutic Interventions Met (OT) Yes, treatment indicated OT Diagnosis Pt below functional baseline, primarily impacted by dizziness and blurred vision impacting ind and safety with I/ADLs OT Problem List-Impairments impacting ADL problems related to;activity tolerance impaired;balance;coordination;sensation;strength;vision Assessment of Occupational Performance 3-5 Performance Deficits Identified Performance Deficits LB dressing, bathing, g/h, community mobility Planned Therapy Interventions (OT) ADL retraining;IADL retraining;strengthening;home program guidelines;progressive activity/exercise Clinical Decision Making Complexity (OT) problem focused assessment/low complexity Risk & Benefits of therapy have been explained evaluation/treatment results reviewed;care plan/treatment goals reviewed;risks/benefits reviewed;current/potential barriers reviewed;participants voiced agreement with care plan;participants included;patient OT Total Evaluation Time OT Eval, Low Complexity Minutes ([id number]) 5 OT Goals Therapy Frequency (OT) 6 times/week OT Predicted Duration/Target Date for Goal Attainment 04/04/24 OT Goals Hygiene/Grooming;Lower Body Dressing;Upper Body Dressing;Upper Body Bathing;Lower Body Bathing;Toilet Transfer/Toileting OT: Hygiene/Grooming modified independent;using adaptive equipment OT: Upper Body Dressing Modified independent;using adaptive equipment OT: Lower Body Dressing Modified independent;using adaptive equipment OT: Upper Body Bathing Modified independent;using adaptive equipment OT: Lower Body Bathing Modified independent;using adaptive equipment OT: Toilet Transfer/Toileting Modified independent;using adaptive equipment Interventions Interventions Quick Adds Therapeutic Activity Therapeutic Activities Therapeutic Activity Minutes (01680) 25 Symptoms noted during/after treatment dizziness;fatigue Treatment Detail/Skilled Intervention OT eval completed and treatment initiated. Facilitated functional mobility for increased activity tolerance. Pt greeted lying supine in bed, agreeable to therapysession. Pt completed bed mobility with SBA. Pt completed STS with CGA, then grabbed onto FWW for ambulation. Pt ambulated ~300 ft with CGA and FWW. No LOB when ambulating. Pt returned to room and reported some fatigue. Pt returned to bed and completed bed mobility w/SBA. Pt left lying supine in bed with all needs met. OT Discharge Planning OT Plan LB dressing w/ AE, EC techniques, functional high/low reaching OT Discharge Recommendation (DC Rec) home with assist;home with outpatient occupational therapy (home w/ outpatient PT) OT Rationale for DC Rec Pt below functional baseline. Primarily limited by dizziness, blurry vision, and LOB with activity. On this date, pt CGA w/FWW for ambulation. Rec outpatient OT/PT for higher level therapy for balance/coordination. Pt has good family support. OT Brief overview of current status CGA w/ FWW for ambulation Total Session Time Timed Code Treatment Minutes 25 Total Session Time (sum of timed and untimed services) 30 * Reid Abdalla MD - 03/25/2024 8:45 AM CDT Images from the original note were not included. OPHTHALMOLOGY PROGRESS NOTE 03/24/24 I have not seen or examined the patient, but was available if the need had arisen. 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 She first noticed right sided headache, diplopia and loss of vision in the right eye since 03/13/24 while using prednisone 5 mg/day. She was seen in the ED on 03/15/24, was treated with 20 mg oral prednisone for 5 days until follow-up with her director correctional agency on 03/20/24 when she was seen and repaired referred to the ED because of concern for giant cell arteritis. Patient presented 2 days later on 03/22/2024. Patient also has right-sided headache, scalp tenderness, jaw claudication, joint pains, shoulder pain, proximal muscle weakness, history of resolved double vision, ESR 4, CRP <3. I reviewed the patient's MRI brain and orbit w/o w contrast, did not see any enhancement of the optic nerve or it's sheath , nor enhancement of the intracranial internal carotid artery. 03/23/24 patient has a vision of 20/70 right eye , 20/25 left eye , right-sided APD, minimal color vision deficit right eye, and mild optic disc elevation right eye. Of note the left eye does not havea crowded disc. 03/24/24 Patents ophthalmic exam is relatively stable, with marked improvement in her headache and shoulder pain. 03/25/24 Patients ophthalmic exam is stable with improving vision, headache and shoulder pain. Patient had temporal artery biopsy done today. Per internal medicine note patient has UTI 2/2 E coli, treated with IV ceftriaxone. 03/24/24 Rheumatology recommendations -- Continue Solu-Medrol 1g IV qd x 3 days (started on 03/22) -- Start prednisone 60 mg daily tomorrow. Follow by prednisone taper as below -- Will place order to start tocilizumab 162 mg subcutaneous once every week as outpatient. Risk and benefits discussed with patient. -- Start bactrim DS tablet every MWF for PCP ppx -- Continue Vit D -- Encourage to consume appx 1200 mg of calcium daily with her diet. -- Patient will need a Dexa scan as outpatient -- Continue PPI ppx - can switch to oral once on oral prednisone. -- Will place a MTM referral and Rheumatology referral orders - Plan to see patient in the rheumatology clinic on April 17 at 12:[address] Crain. -- Follow-up surgery for temporal Artery Biopsy at urgent next available -- Follow-up Ophthalmology and surgery recs Weeks Daily prednisone dose (mg) 26-week taper 1 60 2 50 3 40 4 35 5 30 6 25 7 20 8 15 9 12.5 10 12.5 11 10 12 9 13 8 14 7 15 6 16 6 17 5 18 5 19 4 20 4 21 3 22 3 23 2 24 2 25 1 26 1 -Ophthalmology will follow up outpatient after discharge in 2 weeks. -There is concern with patients health regarding the high dose steroids and high blood pressure -Appreciate primary team work up and management of UTI, especially in the setting of immunosuppression that is necessary for GCA. Patient needs to be on prednisone for 26 weeks and Tocilizumab for at least 1-2 years. Please advise regarding current UTI Please direct all questions or concerns to the on-call ophthalmology resident. Reid Sorto MD Fellow, Neuro-ophthalmology Patient: Gato Partida ASSESSMENT/PLAN: Gato Partida is a 78 year old female with pmhx SLE, polymalgia rheumatica, Graves Disease whopresented with right sided head pain and vision changes. 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 On low dose prednisone (5- 10 mg) long-term. Taking 20 mg prednisone 03/15 to 03/20. Exam notable for vision 20/70 right, 20/25 left, right sided APD, color vision down by one test plate by Ishihara in right eye, and right eye fundus exam notable for mild optic disc edema with hyperemia, and mild vessel tortuosity. Otherwise no hemorrhages, CWS, or hernández red spot. Platelets (223), ESR (4) and CRP (<3) within normal limits Update 03/24: [place] 20/25 / 20/20 right eye / left eye with near card, 20/40 right eye / 20/20 left eyewith phone eye chart. Color plates full with phone eye chart. Patient state that subjectively her headache and shoulder pain has improved dramatically on IV steroids and she is sleeping much better. She is s/p 2 doses of 1g IV solumedrol. Bilateral temporal artery biopsy planned by surgery for tomorrow. Update 03/25: BCVA 20/20 OU through pinhole. Color plates without significant change (10/11 on the right, 10.5/11 on the left). Symptoms have improved substantially. TAB planned for today. Transitioning to oral prednisone now that she has received 3/3 IV steroid doses. Plan: - Neurology following, appreciate recs - Finished Solu-Medrol 1g IV qd x 3 days (has received 3 of 3 planned doses) - Oral prednisone +/- steroid sparing therapy on discharge, appreciate rheumatology recommendations. Rheumatology considering tocilizumab. - IV PPI while on corticosteroids - TAB planned for today Syncopal events Atrial fibrillation HTNsive Urgency vs Emergency - Mild evidence of hypertensive retinopathy on exam including tortuous vessels, though not likely longstanding as minimal copper wiring and no hemorrhages or cotton wool spots - It is possible that she is having a systemic hypertensive response due to ongoing corticosteroid therapy - Vision changes may have a contribution from elevated BP in which case this would be considered hypertensive emergency due to end organ involvement Plan: - Chest imaging per rheumatology - Management of BP and atrial fibrillation per internal medicine team - Consider workup for syncopal events while inpatient vs outpatient It is our pleasure to participate in this patient's care and treatment. Please contact us with any further questions or concerns. Discussed with Dr. Monroy who agreed with this assessment and plan. Ophthalmology will continue to follow closely while inpatient. Please contact physician specialist hospital television rental clerk with any questions or concerns. We appreciate your care of this patient. Jorge Kelly MD Resident Physician, PGY-2 Department of Ophthalmology 03/25/2024 11:02 AM HISTORY OF PRESENTING ILLNESS: Gato Partida is a 78 year old female who presented on 03/22/24 with right sided head pain andvision changes. - 03/13 started to notice right sided headache that radiated to C spine, scalp tenderness, and vision changes. Had some diplopia which resolved. Has a chronic (~6-12 mos) history of polymyalgia rheumatica and a longstanding (~40 years) history of SLE. Describes headache crescendo as 10/10 and culminating in difficulty eating due to jaw pain while chewing. Describes vision changes as blurred vision, does not endorse a visual field deficit. Also has some aching pain of the eye and pain associated with eye movements. - 03/15 presented to ED, started prednisone 20 mg PO QD; - 03/20 Follow up rheumatology clinic, self-discontinued steroids due to not having been given further instructions. Told to proceed to the emergency department immediately, though was Around the same timeframe (~03/13), the patient has noticed that her atrial fibrillation has been having intermittent episodes causing rapid heart rate and has been feeling more faint. Does not think that she has ever lost consciousness, but has fallen a few times and is no longer able to garden or deadhead her roses due to losing her balance. She states that her vision worsens during these episodes as well, though has difficulty differentiating whether this may be due to lightheadedness versus true visual acuity change. Update 03/23: Patient complaining of jaw claudication with dinner last night. States that her shoulder and arm pain have improved today after 1 dose of IV solumedrol. She had a templar headache which is also improved. Diplopia has resolved. Update 03/24: States pain is continuing to improve. Headache and shoulder pain improving. Update 03/25: She says that her headache and shoulder pain have improved substantially. 10+ review of systems were otherwise negative except for that which has been stated above. OCULAR/MEDICAL/SURGICAL HISTORIES: Past Ocular History: wears contacts, history of CE IOL Ou, denies other problems Pertinent Systemic Medications: Oral prednisone low dose (unsure of dosing) Past Medical History: No past medical history on file. Past Surgical History: Past Surgical History: Procedure Laterality Date GASTRIC BYPASS JOINT REPLACEMENT Right Family History: No history of macular degeneration or glaucoma Social History: No tobacco use EXAMINATION: Base Eye Exam Visual Acuity (near vsion card) Right Left Near cc 20/25-2 ph 20/20 20/25-2 ph 20/20 Tonometry (Tonopen, 9:06 AM) Right Left Pressure 19 18 Pupils Dark Light Shape React APD Right 3 1 Round Brisk Trace Left 3 1 Round Brisk None Visual Benítez Left Right Full Full Extraocular Movement Right Left Full, Ortho Full, Ortho Neuro/Psych Oriented x3: Yes Mood/Affect: Normal Additional Tests Color Right Left Ishihara 9/14 9/14 9/14 OU by book 10.5/11 OD, 10/11 OS by phone syed Slit Lamp and Fundus Exam External Exam Right Left External Normal Normal Slit Lamp Exam Right Left Lids/Lashes Normal Normal Conjunctiva/Sclera White and quiet White and quiet Cornea 2-3+ PEE 2-3+ PEE Anterior Chamber Deep and quiet Deep and quiet Iris Round and reactive Round and reactive Lens PCIOL PCIOL with PCO Labs/Studies/Imaging Performed Results for orders placed or performed during the hospital encounter of 03/22/24 MR Brain and Orbits w/o & w Contrast Impression Impression: 1. No acute intracranial pathology. 2. Sequela of chronic small vessel ischemic disease. 3. Patent normal appearing major intracranial vasculature without evidence of significant vasculitis. Partially visualized temporal arteries are unremarkable. Ultrasound of the temporal arteries can be considered. I have personally reviewed the examination and initial interpretation and I agree with the findings. XI BACON MD MRA Angiogram Head w/o Contrast Impression IMPRESSION: No large vessel occlusion, significant major intracranial arterial stenosis, or definite aneurysm. No definite enlarged temporal artery bilaterally. I have personally reviewed the examination and initial interpretation and I agree with the findings. XI BACON MD MRA Angiogram Neck w/o & w Contrast Impression IMPRESSION: Neck MRA demonstrates patent major cervical vasculature 40% right and 25% left proximal internal carotid artery narrowing. I have personally reviewed the examination and initial interpretation and I agree with the findings. XI BACON MD CTV Head Neck w Contrast Impression Impression: No evidence of intracranial venous sinus thrombosis. I have personally reviewed the examination and initial interpretation and I agree with the findings. XI BACON MD US Lower Extremity Venous Duplex Right Impression IMPRESSION: 1. No evidence of right lower extremity deep venous thrombosis. I have personally reviewed the examination and initial interpretation and I agree with the findings. TAMERA ANTHONY MD Jorge Kelly MD Resident Physician, PGY-2 Department of Ophthalmology 03/25/2024 11:02 AM * Verona Snyder MD - 03/24/2024 2:22 PM CDT [facility] Progress Note - Medicine Service, [facility] TEAM 3 Date of Admission: 03/22/2024 Assessment & Plan Gato Partida is a 78 year old female admitted on 03/22/2024. She has a history of polymyalgia rheumatica on prednisone, SVT, A-fib, hypertension presenting with head/neck pain, dizziness, and blurred vision in her right eye admitted on 03/22 with unilateral vision loss concerning for possible Giant Cell Arteritis. Changes today: - US of bilateral temporal arteries - NPO at midnight for possible temporal artery biopsy 03/24 - start prophylactic bactrim for PJP - IV ceftriaxone for UTI #Blurry vision #Head/neck pain #Possible giant cell arteritis #Polymyalgia Rheumatica Approximately 10 days of progressively worsening right sided neck/head pain and blurry vision. Is also reporting left sided head pain, and jaw pain that worsens when chewing. Currently denies any visual field deficits. She was seen 03/15 for these symptoms and was prescribed 20mg prednisone for 5 days. Previously on prednisone 5mg daily for approximately a month for her polymyalgia rheumatica. Highly suspicious for giant cell arteritis, especially given patient demographics and polymyalgia rheumatica diagnosis. Posterior stroke also considered due to vision changes. CTA chest, MRA brain and neck, MR brain and orbital negative for signs of vasculitis or optic neuritis. On exam, vision of 20/70 right eye , 20/25 left eye , right-sided APD, minimal color vision deficit right eye, and mild optic disc elevation right eye. Notably patient's ESR 4, CRP <3, IL-6 <0.7 on admission. - Rheumatology consult for evaluation of candidacy for steroid sparing agents; appreciate recommendations - Surgery consult for temporal artery biopsy - US of bilateral temporal arteries, if diagnosis confirmed with US, no biopsy needed - if US negative, plan for OR on 03/24 - Ophthalmology and Neurology consulted -Solu-Medrol 1g IV qd x 3 days (03/24 is day 3) -start Oral prednisone 1mg/kg on 03/25 - pantoprazole IV 40mg - daily ESR, CRP - start prophylactic bactrim for PJP UTI 2/2 E coli Urine culture collected on 03/22 positive for E coli, and patient endorsing dysuria prior to admission. WBC elevated to 12.0 on 03/24. Patient denies N/V, fevers, back pain. - IV ceftriaxone 1g q24h for 5 day course - can transition to oral abx once WBC downtrending LE edema C/f HFpEF Patient endorsing bilateral LE swelling and edema that improves with raising her legs. TTE on 03/22 with normal L ventricular function and EF of 60-65%. - consider starting oral lasix on 03/25 if edema persists #Dizziness/falls #Atrial fibrillation #Possible volume overload/heart failure Chronic dizziness and weakness that worsens when leaning forward, reports 3-4 falls within the last6 months. Self reports 15 pound weight gain over the past few months and lower extremity swelling over the past few days. Has been experiencing more severe episodes of a-fib in the past two weeks. One week ago describes having an intense pleuritic chest/rib pain that lasted for a few days, had had episodes similar in the past but have always resolved within hours. Denies chest pain/SOB on admission. Symptoms possibly related to polymyalgia, echo ordered due to concern for CHF, however EF and LV size normal. EKG on admission showing normal sinus. Troponin and TSH within normal range on admission. Orthostatic BP remain similar, however HR elevation from 80 to 99bpm. - PT/OT consult #HTN Patient with periods of hypertension and hypotension since admission. 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 - resume [employer] amlodipine 5mg daily and lisinopril 10mg BID - holding metoprolol tartrate 25mg BID, consider restarting if patient continues to be hypertensive - may also consider hydrochlorothiazide for treatment of steroid-induced HTN if necessary #Graves Disease - [employer] levothyroxine #Unilateral RLE swelling (resolved) On admission, patient thinks one leg appears more swollen than the other, denies LE pain. On 03/23 exam, extremities appear symmetric. - DVT US on 03/22 negative Diet: Regular Diet Adult NPO per Anesthesia Guidelines for Procedure/Surgery Except for: Meds DVT Prophylaxis: ambulating, mechanical VTE prophylaxis Emery Catheter: Not present Fluids: 1L LR bolus Lines: None Cardiac Monitoring: ACTIVE order. Indication: Tachyarrhythmias, acute (48 hours) Code Status: Full Code Clinically Significant Risk Factors # Hypertension: Noted on problem list # Overweight: Estimated body mass index is 29.55 kg/m?? as calculated from the following: Height as of this encounter: 1.524 m (5'). Weight as of this encounter: 68.6 kg (151 lb 4.8 oz)., PRESENT ON ADMISSION Disposition Plan Expected Discharge Date: 03/26/2024 The patient's care was discussed with the Attending Physician, Dr. Deal . Verona Snyder MD Medicine Service, [facility] TEAM [address] [place] [address] Securely message with [employer] (more info) Text page via [facility] Paging/Directory See signed in provider for up to date coverage information Interval History Patient endorses dysuria prior to admission but none since admission. Feels well today. Denies N/V,fevers. Physical Exam Vital Signs: Temp: 97.5 ??F (36.4 ??C) Temp src: Oral BP: (!) 89/68 Pulse: 64 Resp: 18 SpO2: 98 % O2 Device: None (Room air) Weight: 151 lbs 4.8 oz General Appearance: NAD, well-appearing Respiratory: CTAB, no crackles, no wheezing Cardiovascular: no JVD, RRR, no murmurs GI: suprapubic tenderness, nontender in all other regions, nondistended Skin: nonpitting LE edema Psych: Normal mood, normal affect Medical Decision Making Please see A&P for additional details of medical decision making. Data I have personally reviewed the following data over the past 24 hrs: 12.0 (H) \ 12.3 / 184 142 110 (H) 16.1 / 172 (H) 3.5 22 0.61 \ Procal: N/A CRP: <3.00 Lactic Acid: N/A Imaging results reviewed over the past 24 hrs: No results found for this or any previous visit (from the past 24 hour(s)). Associated attestation - Marilee Deal MD - 03/24/2024 4:54 PM CDT Physician Attestation I saw this patient with the resident and agree with the resident/fellow's findings and plan of careas documented in the note. Quiñonez findings: Please see A&P for additional details of medical decision making. I have personally reviewed the following data over the past 24 hrs: 12.0 (H) \ 12.3 / 184 142 110 (H) 16.1 / 172 (H) 3.5 22 0.61 \ Procal: N/A CRP: <3.00 Lactic Acid: N/A - We will add the following to problem list: - Paroxysmal \atrial flutters, CHADS-VASC score 4, POA - Not on anticoagulation as outpatient given lack of any recent recurrence, will defer initiation of anticoagulation Marilee Deal MD Date of Service (when I saw the patient): 03/24/24 * Reid Abdalla MD - 03/24/2024 9:19 AM CDT Images from the original note were not included. OPHTHALMOLOGY PROGRESS NOTE 03/24/24 I have not seen or examined the patient, but was available if the need had arisen. 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 She first noticed right sided headache, diplopia and loss of vision in the right eye since 03/13/24 while using prednisone 5 mg/day. She was seen in the ED on 03/15/24, was treated with 20 mg oral prednisone for 5 days until follow-up with her director correctional agency on 03/20/24 when she was seen and repaired referred to the ED because of concern for giant cell arteritis. Patient presented 2 days later on 03/22/2024. Patient also has right-sided headache, scalp tenderness, jaw claudication, joint pains, shoulder pain, proximal muscle weakness, history of resolved double vision, ESR 4, CRP <3. I reviewed the patient's MRI brain and orbit w/o w contrast, did not see any enhancement of the optic nerve or it's sheath , nor enhancement of the intracranial internal carotid artery. 03/23/24 patient has a vision of 20/70 right eye , 20/25 left eye , right-sided APD, minimal color vision deficit right eye, and mild optic disc elevation right eye. Of note the left eye does not havea crowded disc. 03/24/24 Patents ophthalmic exam is relatively stable, with marked improvement in her headache and shoulder pain. 03/24/24 Rheumatology recommendations -- Continue Solu-Medrol 1g IV qd x 3 days (started on 03/22) -- Start prednisone 60 mg daily tomorrow. Follow by prednisone taper as below -- Will place order to start tocilizumab 162 mg subcutaneous once every week as outpatient. Risk and benefits discussed with patient. -- Start bactrim DS tablet every MWF for PCP ppx -- Continue Vit D -- Encourage to consume appx 1200 mg of calcium daily with her diet. -- Patient will need a Dexa scan as outpatient -- Continue PPI ppx - can switch to oral once on oral prednisone. -- Will place a MTM referral and Rheumatology referral orders - Plan to see patient in the rheumatology clinic on April 17 at 12:[address] Crain. -- Follow-up surgery for temporal Artery Biopsy at urgent next available -- Follow-up Ophthalmology and surgery recs Weeks Daily prednisone dose (mg) 26-week taper 1 60 2 50 3 40 4 35 5 30 6 25 7 20 8 15 9 12.5 10 12.5 11 10 12 9 13 8 14 7 15 6 16 6 17 5 18 5 19 4 20 4 21 3 22 3 23 2 24 2 25 1 26 1 -Follow up on temporal artery biopsy -Ophthalmology will follow up outpatient after discharge -Continue IV solu-medrol 1gr/day for up to 3 doses. -Appreciate rheumatology and neurology rec Please direct all questions or concerns to the on-call ophthalmology resident. Reid Sorto MD Fellow, Neuro-ophthalmology Patient: Gato Partida ASSESSMENT/PLAN: Gato Partida is a 78 year old female with pmhx SLE, polymalgia rheumatica, Graves Disease whopresented with right sided head pain and vision changes. 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 On low dose prednisone (5- 10 mg) long-term. Taking 20 mg prednisone 03/15 to 7/25. Exam notable for vision 20/70 right, 20/25 left, right sided APD, color vision down by one test plate by Razara in right eye, and right eye fundus exam notable for mild optic disc edema with hyperemia, and mild vessel tortuosity. Otherwise no hemorrhages, CWS, or hernández red spot. Platelets (223), ESR (4) and CRP (<3) within normal limits Update 03/24: [place] 20/25 / 20/20 right eye / left eye with near card, 20/40 right eye / 20/20 left eyewith phone eye chart. Color plates full with phone eye chart. Patient state that subjectively her headache and shoulder pain has improved dramatically on IV steroids and she is sleeping much better. She is s/p 2 doses of 1g IV solumedrol. Bilateral temporal artery biopsy planned by surgery for tomorrow. Plan: - Neurology following, appreciate recs - Solu-Medrol 1g IV qd x 3 days (has received 2 of 3 planned doses) - Oral prednisone +/- steroid sparing therapy on discharge, appreciate rheumatology recommendations. - IV PPI while on corticosteroids - TAB planned for tomorrow Syncopal events Atrial fibrillation HTNsive Urgency vs Emergency - Mild evidence of hypertensive retinopathy on exam including tortuous vessels, though not likely longstanding as minimal copper wiring and no hemorrhages or cotton wool spots - It is possible that she is having a systemic hypertensive response due to ongoing corticosteroid therapy - Vision changes may have a contribution from elevated BP in which case this would be considered hypertensive emergency due to end organ involvement Plan: - Chest imaging per rheumatology - Management of BP and atrial fibrillation per internal medicine team - Consider workup for syncopal events while inpatient vs outpatient It is our pleasure to participate in this patient's care and treatment. Please contact us with any further questions or concerns. Discussed with Dr. Monroy who agreed with this assessment and plan. Ophthalmology will continue to follow closely while inpatient. Please contact physician specialist hospital television rental clerk with any questions or concerns. We appreciate your care of this patient. Lamont Canales MD, PGY2 Ophthalmology Resident [facility] HISTORY OF PRESENTING ILLNESS: Gato Partida is a 78 year old female who presented on 03/22/24 with right sided head pain andvision changes. - 03/13 started to notice right sided headache that radiated to C spine, scalp tenderness, and vision changes. Had some diplopia which resolved. Has a chronic (~6-12 mos) history of polymyalgia rheumatica and a longstanding (~40 years) history of SLE. Describes headache crescendo as 10/10 and culminating in difficulty eating due to jaw pain while chewing. Describes vision changes as blurred vision, does not endorse a visual field deficit. Also has some aching pain of the eye and pain associated with eye movements. - 03/15 presented to ED, started prednisone 20 mg PO QD; - 03/20 Follow up rheumatology clinic, self-discontinued steroids due to not having been given further instructions. Told to proceed to the emergency department immediately, though was Around the same timeframe (~03/13), the patient has noticed that her atrial fibrillation has been having intermittent episodes causing rapid heart rate and has been feeling more faint. Does not think that she has ever lost consciousness, but has fallen a few times and is no longer able to garden or deadhead her roses due to losing her balance. She states that her vision worsens during these episodes as well, though has difficulty differentiating whether this may be due to lightheadedness versus true visual acuity change. Update 03/23: Patient complaining of jaw claudication with dinner last night. States that her shoulder and arm pain have improved today after 1 dose of IV solumedrol. She had a templar headache which is also improved. Diplopia has resolved. Update 03/24: States pain is continuing to improve. Headache and shoulder pain improving. 10+ review of systems were otherwise negative except for that which has been stated above. OCULAR/MEDICAL/SURGICAL HISTORIES: Past Ocular History: wears contacts, history of CE IOL Ou, denies other problems Pertinent Systemic Medications: Oral prednisone low dose (unsure of dosing) Past Medical History: No past medical history on file. Past Surgical History: Past Surgical History: Procedure Laterality Date GASTRIC BYPASS JOINT REPLACEMENT Right Family History: No history of macular degeneration or glaucoma Social History: No tobacco use EXAMINATION: Base Eye Exam Visual Acuity (Snellen - Linear) Right Left Near cc 20/25-1 20/20-1 Visual Acuity #2 (Snellen - Linear) Right Left Near cc 20/40 20/20 Visual Acuity Comments VA1: Near card VA2: Eye chart on mobile phone Tonometry (Tonopen, 10:33 AM) Right Left Pressure 21 23 Pupils Shape React APD Right Round Slow Trace Left Round Brisk None Visual Benítez Left Right Full Full Extraocular Movement Right Left Full Full Neuro/Psych Oriented x3: Yes Additional Tests Color Right Left Ishihara 07/07 phone; 02/04 book 07/07 phone; 02/04 book Slit Lamp and Fundus Exam External Exam Right Left External Normal Normal Slit Lamp Exam Right Left Lids/Lashes Normal Normal Conjunctiva/Sclera White and quiet White and quiet Cornea 2-3+ PEE 2-3+ PEE Anterior Chamber Deep and quiet Deep and quiet Iris Round and reactive Round and reactive Lens PCIOL PCIOL with PCO Anterior Vitreous No view No view Labs/Studies/Imaging Performed Results for orders placed or performed during the hospital encounter of 03/22/24 MR Brain and Orbits w/o & w Contrast Impression Impression: 1. No acute intracranial pathology. 2. Sequela of chronic small vessel ischemic disease. 3. Patent normal appearing major intracranial vasculature without evidence of significant vasculitis. Partially visualized temporal arteries are unremarkable. Ultrasound of the temporal arteries can be considered. I have personally reviewed the examination and initial interpretation and I agree with the findings. XI BACON MD MRA Angiogram Head w/o Contrast Impression IMPRESSION: No large vessel occlusion, significant major intracranial arterial stenosis, or definite aneurysm. No definite enlarged temporal artery bilaterally. I have personally reviewed the examination and initial interpretation and I agree with the findings. XI BACON MD MRA Angiogram Neck w/o & w Contrast Impression IMPRESSION: Neck MRA demonstrates patent major cervical vasculature 40% right and 25% left proximal internal carotid artery narrowing. I have personally reviewed the examination and initial interpretation and I agree with the findings. XI BACON MD CTV Head Neck w Contrast Impression Impression: No evidence of intracranial venous sinus thrombosis. I have personally reviewed the examination and initial interpretation and I agree with the findings. XI BACON MD US Lower Extremity Venous Duplex Right Impression IMPRESSION: 1. No evidence of right lower extremity deep venous thrombosis. I have personally reviewed the examination and initial interpretation and I agree with the findings. TAMERA ANTHONY MD Lamont Canales MD Resident Physician, PGY2 Department of Ophthalmology March 23, 2024 8:27 AM * Kristel Simeon MD - 03/24/2024 9:00 AM CDT Brief Surgery Note Due to OR availability, will plan for OR tomorrow for temporal artery biopsy. OK for diet today, NPO midnight. Kristel Simeon MD General Surgery, PGY2 * Nathaniel Rosenberg RN - 03/23/2024 9:20 PM CDT Nursing Focus: Admission D: Patient admitted/transferred from ED via Transport for continuation of care. I: Upon arrival to the unit patient was oriented to room, unit, and call light. Patient???s height,weight, and vital signs were obtained. Allergies reviewed and allergy band applied. MD notified of patient???s arrival on the unit. Adult AVS completed. Head to toe assessment completed. Education assessment completed. Care plan initiated. A: Vital signs stable upon admission. Patient rates pain at 5/10. Two RN skin assessment completed YES. Second RN was Anai Paige Significant Skin Findings include Bruises in R and L forearm, PIV in R forearm, bx site in R thigh. [facility] Nurse Consult Ordered NO. Bed Algorithm can be found in PCS flow sheets (Support Surface Algorithm) and on IP [facility] NURSE RESOURCE TAB, was this used during this assessment? NO P: Continue to monitor patient???s Status and intervene as needed. Continue with plan of care. Notify MD with any concerns or changes in patient status. * Shanda Reid MD - 03/23/2024 7:[address] [facility] Neurology Consultation - Progress Note Patient Name: Gato Partida Date of Service: March 23, 2024 Subjective: No acute events overnight. Some improved vision of the R eye with IV steroids. UA returned concerning for E Coli UTI, although unclear if symptomatic. Objective: Vitals: BP (!) 148/54 (BP Location: Left arm, Patient Position: Supine, Cuff Size: Adult Regular) Pulse 91 Temp 97.7 ??F (36.5 ??C) (Oral) Resp 18 Ht 1.61 m (5' 3.39) Wt 53.1 kg (117 lb 1.6 oz) SpO2 98% BMI 20.49 kg/m?? General: Sitting up in bed, NAD Head: Normocephalic/atraumatic Eyes: no icterus Cardiac: Regular rate per vitals Pulmonary: non-labored, breathing comfortably on room air GI: non-distended Skin: No rash or lesion on exposed skin Extremities: Extremities warm, no edema Psych: Mood pleasant, affect congruent Neuro: Mental status: Awake, alert, attentive, oriented to self, time, place, and circumstance. Language is fluent and coherent with intact comprehension of simple commands Cranial nerves: PERRL, conjugate gaze, EOMI but endorses R eye is painful with movements, vision burry in R eye but otherwise VFF, decreased sensation to light touch in V1-V3, face symmetric, tongue midline, no dysarthria. Motor: Some stiffness with lateral neck rotation in setting of pain Reflexes: 2+ in all extremities except possibly absent in R knee (prior knee surgery with scar), toes downgoing Sensory: Intact to light touch x 4 extremities aside from R foot 80% numb from her foot to her hip Coordination: FNF without ataxia or dysmetria. L heel to victor intact. R heel to victor unable to be performed due to sensation of hip pain / stiffness. Gait: Deferred Right Left Shoulder abduction: 4, limited by pain 4, limited by pain Elbow extension: 5 5 Elbow flexion: 5 5 Wrist flexion: 5 5 Wrist extension: 5 5 Finger extension 5 5 FDI 5 5 Hip flexion 4-, limited by pain 4-, limited by pain Knee flexion 5 5 Knee extension 5 5 Dorsiflexion 5 5 Plantar flexion 5 5 Pertinent Investigations: I have personally reviewed most recent and pertinent labs, tests, and radiological images. Assessment Gato Partida is a 78 year old woman with history of SLE, polymalgia rheumatica, Graves Disease who presents with right sided head pain, vision changes in setting of jaw claudication and extensive rheumatologic history. This is clinically strongly suggestive of giant cell arteritis. ESR / CRP wnl's although question whether this could be falsely normal as patient has been on chronic prednisone and was undergoing a slow taper since October of this year. Patient was started on IV methylpred x 3 days on admit with plan to transition to prednisone per rheumatology. Did obtain MRI brain and orbits, MRA head and neck, as well as CT venogram which were all without evidence of stroke, optic neuritis, vasculitis, or cerebral venous sinus thrombosis. Discussed with ophthalmology who confirmed that their exam was consistent with anterior ischemic optic neuropathy (AION) without evidence of optic neuritis. 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 temporal artery biopsy per general surgery -Agree with need for PPI while on high dose steroids -Depending on course of high dose steroids, defer need for PJP prophylaxis to primary team -Neurology will sign off. Thank you for involving Neurology in the care of Gato Partida. Please do not hesitate to callwith questions/concerns (consult pager [phone]). Patient was seen and discussed with Dr. Cervantes. Shanda Reid MD PGY-4 Neurology Resident Associated attestation - Alem Cervantes MD - 03/24/2024 12:49 AM CDT Physician Attestation I saw this patient with the resident and agree with the resident/fellow's findings and plan of careas documented in the note. Quiñonez findings: She has a history of SLE, polymyalgia rheumatica, Grave's disease with right sided headache and vision changes, jaw claudication. She has a significant autoimmune history and history of present illness consistent with temporal arteritis, though lab testing was inconsistent with what would be expected with this diagnosis, however has been on a slow taper. Mr brain and orbits, MRA head and neck and CT venogram were negative to my eye for inflammatory lesions. There is highest concern for a vasculitic cause based on ophthalmology's exam being consistentwith anterior ischemic optic neuropathy. No additional neurologic recommendations but would be available in case symptoms evolve beyond a rheumatologic presentation. Alem Cervantes MD Date of Service (when I saw the patient): 03/23/24 * Verona Snyder MD - 03/23/2024 1:36 PM CDT [facility] Progress Note - Medicine Service, [facility] TEAM 3 Date of Admission: 03/22/2024 Assessment & Plan Gato Partida is a 78 year old female admitted on 03/22/2024. She has a history of polymyalgia rheumatica on prednisone, SVT, A-fib, hypertension presenting with head/neck pain, dizziness, and blurred vision in her right eye admitted on 03/22 with unilateral vision loss concerning for possible Giant Cell Arteritis. Changes today: - US of bilateral temporal arteries - CTA chest without evidence of GCA - restart [employer] lisinopril #Blurry vision #Head/neck pain #Possible giant cell arteritis #Polymyalgia Rheumatica Approximately 10 days of progressively worsening right sided neck/head pain and blurry vision. Is also reporting left sided head pain, and jaw pain that worsens when chewing. Currently denies any visual field deficits. She was seen 03/15 for these symptoms and was prescribed 20mg prednisone for 5 days. Previously on prednisone 5mg daily for approximately a month for her polymyalgia rheumatica. Highly suspicious for giant cell arteritis, especially given patient demographics and polymyalgia rheumatica diagnosis. Posterior stroke also considered due to vision changes. CTA chest, MRA brain and neck, MR brain and orbital negative for signs of vasculitis or optic neuritis. On exam, vision of 20/70 right eye , 20/25 left eye , right-sided APD, minimal color vision deficit right eye, and mild optic disc elevation right eye. Notably patient's ESR 4, CRP <3, on admission. - follow-up IL6 - Rheumatology consult for evaluation of candidacy for steroid sparing agents; appreciate recommendations - Surgery consult for temporal artery biopsy - US of bilateral temporal arteries, if positive no biopsy needed - if US negative, plan for OR on 03/24 - Ophthalmology and Neurology consulted -Solu-Medrol 1g IV qd x 3 days -Oral prednisone 1mg/kg when discharged if ok with admitting team - pantoprazole IV 40mg - daily ESR, CRP #Dizziness/falls #Atrial fibrillation #Possible volume overload/heart failure Chronic dizziness and weakness that worsens when leaning forward, reports 3-4 falls within the last6 months. Self reports 15 pound weight gain over the past few months and lower extremity swelling over the past few days. Has been experiencing more severe episodes of a-fib in the past two weeks. One week ago describes having an intense pleuritic chest/rib pain that lasted for a few days, had had episodes similar in the past but have always resolved within hours. Denies chest pain/SOB on admission. Symptoms possibly related to polymyalgia, echo ordered due to concern for CHF, however EF and LV size normal. EKG on admission showing normal sinus. Troponin and TSH within normal range on admission. Orthostatic BP remain similar, however HR elevation from 80 to 99bpm. - PT/OT consult - 1L IV LR #HTN Patient was hypotensive on admission, but Bps improved and hypertensive on 03/23. 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 - resume [employer] amlodipine 5mg daily and lisinopril 10mg BID - holding metoprolol tartrate 25mg BID, consider restarting if patient continues to be hypertensive - may also consider hydrochlorothiazide for treatment of steroid-induced HTN if necessary #Graves Disease - [employer] levothyroxine #Unilateral RLE swelling (resolved) On admission, patient thinks one leg appears more swollen than the other, denies LE pain. On 03/23 exam, extremities appear symmetric. - DVT US on 03/22 negative Diet: Regular Diet Adult NPO per Anesthesia Guidelines for Procedure/Surgery Except for: Meds DVT Prophylaxis: ambulating, mechanical VTE prophylaxis Emery Catheter: Not present Fluids: 1L LR bolus Lines: None Cardiac Monitoring: ACTIVE order. Indication: Tachyarrhythmias, acute (48 hours) Code Status: Full Code Clinically Significant Risk Factors Present on Admission # Hypertension: Noted on problem list Disposition Plan Expected Discharge Date: 03/24/2024 The patient's care was discussed with the Attending Physician, Dr. Deal . Verona Snyder MD Medicine Service, [facility] TEAM [address] [place] [address] Securely message with [employer] (more info) Text page via [facility] Paging/Directory See signed in provider for up to date coverage information Interval History Patient still having intermittent jaw pain and shoulder pain. Talkative and upbeat when speaking with the team this AM. Denies N/V, fevers. Physical Exam Vital Signs: Temp: 97.8 ??F (36.6 ??C) Temp src: Oral BP: (!) 154/64 Pulse: 97 Resp: 18 SpO2: 98 % O2 Device: None (Room air) Oxygen Delivery: 5 LPM Weight: 117 lbs 1.6 oz General Appearance: NAD, well-appearing Respiratory: CTAB, no crackles, no wheezing Cardiovascular: no JVD, RRR, no murmurs Skin: mild nonpitting LE edema Psych: Normal mood, normal affect Medical Decision Making Please see A&P for additional details of medical decision making. Data I have personally reviewed the following data over the past 24 hrs: 7.2 \ 13.2 / 203 141 108 (H) 14.1 / 150 (H) 3.4 20 (L) 0.59 \ Procal: N/A CRP: <3.00 Lactic Acid: N/A Imaging results reviewed over the past 24 hrs: Recent Results (from the past 24 hour(s)) MR Brain and Orbits w/o & w Contrast Narrative MR BRAIN AND ORBITS W/O & W [...] Relatively clear mastoid air cells. Normal orbits. Impression Impression: 1. No acute intracranial pathology. 2. Sequela of chronic small vessel ischemic disease. 3. Patent normal appearing major intracranial vasculature without evidence of significant vasculitis. Partially visualized temporal arteries are unremarkable. Ultrasound of the temporal arteries can be considered. I have personally reviewed the examination and initial interpretation and I agree with the findings. XI BACON MD MRA Angiogram Head w/o Contrast Narrative EXAM MRA BRAIN ([place] OF GREGOR[place]) W/O CONTRAST 03/22/2024 4:41 PM HISTORY: Headache; r/o Giant cell/temporal arteritis; Age > 50 years; No visual symptoms COMPARISON: None TECHNIQUE: Using a 3D [id number] image acquisition technique, MRA of the major [...] paranasal sinus, orbital, and/or skull base structures. Impression IMPRESSION: No large vessel occlusion, significant major intracranial arterial stenosis, or definite aneurysm. No definite enlarged temporal artery bilaterally. I have personally reviewed the examination and initial interpretation and I agree with the findings. XI BACON MD MRA Angiogram Neck w/o & w Contrast Narrative EXAM: MRA NECK (CAROTIDS) W/O & W [...] left internal carotid artery measures 5 mm. Impression IMPRESSION: Neck MRA demonstrates patent major cervical vasculature 40% right and 25% left proximal internal carotid artery narrowing. I have personally reviewed the examination and initial interpretation and I agree with the findings. XI BACON MD US Lower Extremity Venous Duplex Right Narrative EXAMINATION: DOPPLER VENOUS ULTRASOUND OF THE RIGHT LOWER EXTREMITY, 03/22/2024 6:05 PM COMPARISON: None. HISTORY: Rule out DVT in swollen right leg TECHNIQUE: Anderson-scale evaluation with compression, spectral flow, and color Doppler assessment of the deep venous system of the right leg from groin to knee, and then at the ankle. Of note, Images are incorrectly labeled as left. FINDINGS: In the right lower extremity, the common femoral, femoral, popliteal and posterior tibial veins demonstrate normal compressibility and blood flow. Patent left common femoral vein Impression IMPRESSION: 1. No evidence of right lower extremity deep venous thrombosis. I have personally reviewed the examination and initial interpretation and I agree with the findings. TAMERA ANTHONY MD CTV Head Neck w Contrast Narrative EXAM: CTV HEAD NECK W CONTRAST 03/22/2024 [...] of the cervical spine, worst at C5-6. Impression Impression: No evidence of intracranial venous sinus thrombosis. I have personally reviewed the examination and initial interpretation and I agree with the findings. XI BACON MD Echo Complete Result Value LVEF 60-65% Narrative [id number]^DIGNA^MARGARITA [facility] [address] [place] [id number] Name: GATO PARTIDA : 1945 Study Date: 03/23/2024 07:53 AM Age: 78 yrs Gender: Female Patient Location: [facility] Reason For Study: Syncope Ordering Physician: MARGARITA SAWYER Performed By: Priscila Mann RDCS BSA: 1.6 m2 Height: 60 in Weight: 149 lb BP: 94/48 mmHg Procedure Complete Portable Echo Adult. Contrast Optison. Echocardiogram with two- dimensional, color and spectral Doppler performed. Optison ([facility] #[id number]) given intravenously. Patient was given 5 ml [...] Doppler Measurements & Calculations MV E max charla: 73.4 cm/sec MV A max charla: 118.4 cm/sec MV E/A: 0.62 MV dec time: 0.16 sec Ao V2 max: 161.2 cm/sec Ao max P.4 mmHg E/E' av.4 Lateral E/e': 9.5 Medial E/e': 11.2 RV S Charla: 14.7 cm/sec Report approved by: Angela Hernandez 03/23/2024 10:36 AM CTA Chest with Contrast Narrative Exam: Computed tomographic angiography of the chest [...] Multilevel degenerative changes throughout the visualized spine. Impression Impression: Unremarkable CTA of the chest. No findings to suggest giant cell arteritis. I have personally reviewed the examination and initial interpretation and I agree with the findings. CORINNA BERG MD Associated attestation - Marilee Deal MD - 03/23/2024 3:27 PM CDT Physician Attestation I saw this patient with the resident and agree with the resident/fellow's findings and plan of careas documented in the note. Quiñonez findings: Please see A&P for additional details of medical decision making. I have personally reviewed the following data over the past 24 hrs: 7.2 \ 13.2 / 203 141 108 (H) 14.1 / 150 (H) 3.4 20 (L) 0.59 \ Procal: N/A CRP: <3.00 Lactic Acid: N/A Marilee Finnegan. MD Toyin Date of Service (when I saw the patient): 03/23/24 * Reid Abdalla MD - 03/23/2024 8:24 AM CDT Images from the original note were not included. OPHTHALMOLOGY CONSULT NOTE 03/23/24 I have not seen or examined the patient, but was available if the need had arisen. 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 She first noticed right sided headache, diplopia and loss of vision in the right eye since 03/13/24 while using prednisone 5 mg/day. She was seen in the ED on 03/15/24, was treated with 20 mg oral prednisone for 5 days until follow-up with her director correctional agency on 03/20/24 when she was seen and repaired referred to the ED because of concern for giant cell arteritis. Patient presented 2 days later on 03/22/2024. 03/23/24 Patient vision has improved of (20/70 to 20/30) right eye , 20/20 left eye , right APD, minimal color vision deficit , and mild optic disc elevation right eye. Of note the left eye does not have a crowded disc. Patient also has right-sided headache, scalp tenderness, jaw claudication, joint pains, shoulder pain, proximal muscle weakness, ESR 4, CRP <3. Patient has had normal ESR and CRP while diagnosed with polymyalgia rheumatica. Patient also complains of dizziness and falling. I reviewed the patient's MRI brain and orbit w/o w contrast, did not see any enhancement of the optic nerve or it's sheath , nor enhancement of the intracranial internal carotid artery. She has been on prednisone since 10/20 ( between 5 -15 mg) -03/22/24 CTA chest w contrast for giant cell arteritis: unremarkable -Continue solu-medrol 1gr/day up to 3 doses -Temporal artery biopsy, preferably on the right side(scheduled for tomorrow) -Oral prednisone 1mg/kg when discharged if ok with admitting team due to multiple health issues including high blood pressure. ( I talked with the resident on admission about the high blood pressure and the need for the oral steroids which might exacerbate the high blood pressure, minimal dose that ophthalmology would recommend is 30mg/kg, although she may have relapse on this dose.) -Rheumatology consult for starting immunosuppressive agents/alternatives in case patient can not bedischarge on full dose of 1mg/kg prednisone due to high blood pressure. -Continue PPI prophylaxis while admitted and when discharged. Please direct all questions or concerns to the on-call ophthalmology resident. Reid Sorto MD Fellow, Neuro-ophthalmology Patient: Gato Partida ASSESSMENT/PLAN: Gato Partida is a 78 year old female with pmhx SLE, polymalgia rheumatica, Graves Disease whopresented with right sided head pain and vision changes. 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 On low dose prednisone (5- 10 mg) long-term. Taking 20 mg prednisone 03/15 to 03/20. Exam notable for vision 20/70 right, 20/25 left, right sided APD, color vision down by one test plate by Ishihara in right eye, and right eye fundus exam notable for mild optic disc edema with hyperemia, and mild vessel tortuosity. Otherwise no hemorrhages, CWS, or hernández red spot. Platelets (223), ESR (4) and CRP (<3) within normal limits Update 03/23: Patient endorsing jaw claudication with BLT dinner evening of 03/22 (couldn't chew it so didn't eat much) as well as templar headache and binocular diplopia on admission. These symptomshave improved s/p 1 dose of 1g IV solumedrol. MRI brain and orbits with and without contrast without optic nerve enhancement or evidence of significant vasculitis. MRA head and neck obtained with major patent cervical vasculature (40% right and 25% left proximal internal carotid artery narrowing), no definitive major intracranial arterial stenosis, definite aneurysm, or enlarged temporal artery bilaterally. Rheumatology recommending 1 mg/kg oral prednisone after third day of solumedrol. Surgery consulted - right-sided TAB today or Sunday. Plan: - Rheumatology following, appreciate recs - Neurology following, appreciate recs - Solu-Medrol 1g IV qd x 3 days (has received 1 of 3 planned doses) - IV PPI while on corticosteroids - Right sided TAB planned for Sunday Syncopal events Atrial fibrillation HTNsive Urgency vs Emergency - Mild evidence of hypertensive retinopathy on exam including tortuous vessels, though not likely longstanding as minimal copper wiring and no hemorrhages or cotton wool spots - It is possible that she is having a systemic hypertensive response due to ongoing corticosteroid therapy - Vision changes may have a contribution from elevated BP in which case this would be considered hypertensive emergency due to end organ involvement Plan: - Chest imaging per rheumatology - Management of BP and atrial fibrillation per internal medicine team - Consider workup for syncopal events while inpatient vs outpatient It is our pleasure to participate in this patient's care and treatment. Please contact us with any further questions or concerns. Discussed with Dr. Monroy who agreed with this assessment and plan. Ophthalmology will continue to follow closely while inpatient. Please contact physician specialist hospital television rental clerk with any questions or concerns. We appreciate your care of this patient. Lamont Canales MD, PGY2 Ophthalmology Resident [facility] HISTORY OF PRESENTING ILLNESS: Gato Partida is a 78 year old female who presented on 03/22/24 with right sided head pain andvision changes. - 03/13 started to notice right sided headache that radiated to C spine, scalp tenderness, and vision changes. Had some diplopia which resolved. Has a chronic (~6-12 mos) history of polymyalgia rheumatica and a longstanding (~40 years) history of SLE. Describes headache crescendo as 10/10 and culminating in difficulty eating due to jaw pain while chewing. Describes vision changes as blurred vision, does not endorse a visual field deficit. Also has some aching pain of the eye and pain associated with eye movements. - 03/15 presented to ED, started prednisone 20 mg PO QD; - 03/20 Follow up rheumatology clinic, self-discontinued steroids due to not having been given further instructions. Told to proceed to the emergency department immediately, though was Around the same timeframe (~03/13), the patient has noticed that her atrial fibrillation has been having intermittent episodes causing rapid heart rate and has been feeling more faint. Does not think that she has ever lost consciousness, but has fallen a few times and is no longer able to garden or deadhead her roses due to losing her balance. She states that her vision worsens during these episodes as well, though has difficulty differentiating whether this may be due to lightheadedness versus true visual acuity change. Update 03/23: Patient complaining of jaw claudication with dinner last night. States that her shoulder and arm pain have improved today after 1 dose of IV solumedrol. She had a templar headache which is also improved. Diplopia has resolved. Denies double vision, flashes, floaters, curtain-like defects, and pain with eye movements. 10+ review of systems were otherwise negative except for that which has been stated above. OCULAR/MEDICAL/SURGICAL HISTORIES: Past Ocular History: wears contacts, history of CE IOL Ou, denies other problems Pertinent Systemic Medications: Oral prednisone low dose (unsure of dosing) Past Medical History: No past medical history on file. Past Surgical History: Past Surgical History: Procedure Laterality Date GASTRIC BYPASS JOINT REPLACEMENT Right Family History: No history of macular degeneration or glaucoma Social History: No tobacco use EXAMINATION: Base Eye Exam Visual Acuity (Snellen - Linear) Right Left Near cc 20/30 20/20 -1 Tonometry (Tonopen, 10:10 AM) Right Left Pressure 14 16 Pupils Dark Light Shape React APD Right 4 2 Round Slow Yes Left 4 2 Round s None Visual Benítez Left Right Full Full Additional Tests Color Right Left Ishihara 02/04 02/04 Slit Lamp and Fundus Exam External Exam Right Left External Normal Normal Slit Lamp Exam Right Left Lids/Lashes Normal Normal Conjunctiva/Sclera White and quiet White and quiet Cornea 2-3+ PEE 2-3+ PEE Anterior Chamber Deep and quiet Deep and quiet Iris Round and reactive Round and reactive Lens PCIOL PCIOL with PCO Anterior Vitreous No view No view Labs/Studies/Imaging Performed Results for orders placed or performed during the hospital encounter of 03/22/24 MR Brain and Orbits w/o & w Contrast Impression Impression: 1. No acute intracranial pathology. 2. Sequela of chronic small vessel ischemic disease. 3. Patent normal appearing major intracranial vasculature without evidence of significant vasculitis. Partially visualized temporal arteries are unremarkable. Ultrasound of the temporal arteries can be considered. I have personally reviewed the examination and initial interpretation and I agree with the findings. XI BACON MD MRA Angiogram Head w/o Contrast Impression IMPRESSION: No large vessel occlusion, significant major intracranial arterial stenosis, or definite aneurysm. No definite enlarged temporal artery bilaterally. I have personally reviewed the examination and initial interpretation and I agree with the findings. XI BACON MD MRA Angiogram Neck w/o & w Contrast Impression IMPRESSION: Neck MRA demonstrates patent major cervical vasculature 40% right and 25% left proximal internal carotid artery narrowing. I have personally reviewed the examination and initial interpretation and I agree with the findings. XI BACON MD CTV Head Neck w Contrast Impression Impression: No evidence of intracranial venous sinus thrombosis. I have personally reviewed the examination and initial interpretation and I agree with the findings. XI BACON MD US Lower Extremity Venous Duplex Right Impression IMPRESSION: 1. No evidence of right lower extremity deep venous thrombosis. I have personally reviewed the examination and initial interpretation and I agree with the findings. TAMERA ANTHONY MD Lamont Canales MD Resident Physician, PGY2 Department of Ophthalmology March 23, 2024 8:27 AM * Kristel Simeon MD - 03/23/2024 8:21 AM CDT Brief Surgery Note Will order ultrasound of bilateral temporal arteries to evaluate. If ultrasound is positive, patient will not need temporal artery biopsy. If ultrasound is negative, will plan for OR for temporal biopsy. Due to OR availability, will plan for OR tomorrow for temporal artery biopsy. Okay for diet today, then NPO at midnight. Kristel Simeon MD General Surgery, PGY2 documented in this encounter H&P Notes * Margarita Sawyer MD - 03/22/2024 5:08 PM CDT Resident/Fellow Attestation I, Margarita Sawyer MD, was present with the medical/SYED student who participated in the service and in the documentation of the note. I have verified the history and personally performed the physical exam and medical decision making. I agree with the assessment and plan of care as documented in the note. Margarita Sawyer MD PGY3 Date of Service (when I saw the patient): 03/22/24 [facility] History and Physical - Medicine Service, MAROON TEAM 3 Date of Admission: 03/22/2024 Assessment & Plan Gato Partida is a 78 year old female with a history of polymyalgia rheumatica on prednisone, SVT, A-fib, hypertension presenting with head/neck pain, dizziness, and blurred vision in her right eye admitted on 03/22 with unilateral vision loss concerning for possible polymyalgia rheumatica. #Blurry vision #Head/neck pain #Possible giant cell arteritis #Polymyalgia Rheumatica Approximately 10 days of progressively worsening right sided neck/head pain and blurry vision. Is also reporting left sided head pain, and jaw pain that worsens when chewing. Currently denies any visual field deficits. She was seen 03/15 for these symptoms and was prescribed 20mg prednisone for 5 days. Previously on prednisone 5mg daily for approximately a month for her polymyalgia rheumatica. Highly suspicious for giant cell arteritis, especially given patient demographics and polymyalgia rheumatica diagnosis. Posterior stroke also considered due to vision changes. Notably patient's CRP was normal on admission. - Neurology consult; appreciate recommendations > CT venogram ordered - Rheumatology consult; appreciate recommendations - Surgery consult for temporal artery biopsy, to be completed on 03/23 or 03/24 - Ophthalmology consult; appreciate recommendations - Brain/neck MRI and MRA ordered - 1g methylprednisolone daily - Prophylactic bactrim for PJP - Pantoprazole - Visual acuity pending - daily ESR, CRP #Dizziness/falls #Atrial fibrillation #Possible volume overload/heart failure Chronic dizziness and weakness that worsens when leaning forward, reports 3-4 falls within the last6 months. Self reports 15 pound weight gain over the past few months and lower extremity swelling over the past few days. Has been experiencing more severe episodes of a-fib in the past two weeks. One week ago describes having an intense pleuritic chest/rib pain that lasted for a few days, had had episodes similar in the past but have always resolved within hours. Denies chest pain/SOB on admission. Symptoms possibly related to polymyalgia, but concern for heart failure even though BNP is within normal range. EKG on admission showing normal sinus. Troponin and TSH within normal range on admission. 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 Deal . Yobani Guzman Medical Student Medicine Service, RL TEAM 3 [facility] Securely message with [employer] (more info) Text page via [facility] Paging/Directory See signed in provider for up to date coverage information Chief Complaint Vision changes with head/neck pain. History is obtained from the patient History of Present Illness Gato Partida is a 78 year old female with a history of polymyalgia rheumatica on prednisone, Graves disease, SVT, A-fib, hypertension presenting with right head/neck pain, dizziness, and blurred vision in her right eye admitted on 03/22 for possible giant cell arteritis. Reports approximately 10 days of right sided neck/head pain and blurry vision that has progressively worsened. Is also reporting left sided head pain, but is much less severe than the right side, andjaw pain that worsens when chewing. Currently denies any visual field deficits. She was seen 03/15 for these symptoms and was prescribed 20mg prednisone for 5 days. Was previously on prednisone 5mg daily for approximately a month for her polymyalgia rheumatica. Has been experiencing chronic dizziness and weakness that worsens when leaning forward, reports 3-4 falls within the last 6 months. Self reports 15 pound weight gain over the past few months and lower extremity swelling over the past few days. Has been experiencing more severe episodes of a-fib in the past two weeks as well. One week ago describes having an intense pleuritic chest/rib pain that lasted for a few days, had had episodes similar in the past but have always resolved within hours. Currently denies chest pain/SOB. Labs essentially unremarkable on admission. Past Medical History No past medical history on file. Past Surgical History Past Surgical History: Procedure Laterality Date GASTRIC BYPASS JOINT REPLACEMENT Right Prior to Admission Medications Prior to Admission Medications Prescriptions Last Dose Informant Patient Reported? Taking? D3-50 1.25 MG (51516 UT) capsule Yes No Sig: Take 1,250 mcg by mouth once a week FLUoxetine (PROZAC) 40 MG capsule Yes No Sig: Take 40 mg by mouth daily HYDROcodone-acetaminophen (NORCO) 5-325 MG tablet Yes No Sig: Take 1 tablet by mouth every 8 hours as needed for pain amLODIPine (NORVASC) 10 MG tablet Yes No Sig: Take 1 tablet by mouth daily at 2 pm amoxicillin (AMOXIL) 500 MG capsule Yes No Sig: TAKE 4 CAPSULES BY MOUTH 1 HOUR BEFORE DENTAL APPOINTMENT FOR 1 DOSE atorvastatin (LIPITOR) 10 MG tablet Yes No Sig: Take 10 mg by mouth at bedtime levothyroxine (SYNTHROID/LEVOTHROID) 150 MCG tablet Yes No Sig: Take 150 mcg by mouth daily lisinopril (ZESTRIL) 10 MG tablet Yes No Sig: Take 10 mg by mouth 2 times daily metoprolol tartrate (LOPRESSOR) 25 MG tablet Yes No Sig: Take 25 mg by mouth 2 times daily nitroGLYcerin (NITROSTAT) 0.4 MG sublingual tablet Yes No Sig: Place 0.4 mg under the tongue predniSONE (DELTASONE) 1 MG tablet No No Sig: Take 4 tablets in addition to 1 of the 5mg tablets for a total daily dose of 9mg daily for 2 weeks, You will continue to decrease your dose by 1mg every 2 weeks Patient not taking: Reported on 03/20/2024 predniSONE (DELTASONE) 5 MG tablet No No Sig: take 2 tablets daily for 2 weeks, then take 1 tablet and 4 of the 1mg tablets for a total daily dose of 9mg daily for 2 weeks, You will continue to decrease your dose by 1mg every 2 weeks Patient not taking: Reported on 03/20/2024 predniSONE (DELTASONE) 5 MG tablet No No Sig: Take 1 tablet (5 mg) by mouth daily Patient not taking: Reported on 03/20/2024 Facility-Administered Medications: None Physical Exam Vital Signs: Temp: 98.1 ??F (36.7 ??C) Temp src: Oral BP: (!) 189/92 Pulse: 73 Resp: 14 SpO2: 96 % O2 Device: None (Room air) Weight: 0 lbs 0 oz General: sitting up bed, in no acute distress HEENT: anicteric sclerae, normocephalic, no tenderness to palpation of frontal areas. EOMI, PERRL CV: RRR, no murmurs or rubs Pulm: CTAB, crackles or wheezes Abd: soft, nondistended, nontender MSK: mild swelling of RLE Neuro: AAOx3, no focal cranial nerve deficits, moving all extremities spontaneously Data Imaging results reviewed over the past 24 hrs: Recent Results (from the past 24 hour(s)) MR Brain and Orbits w/o & w Contrast Impression RESIDENT PRELIMINARY INTERPRETATION Impression: 1. No acute intracranial pathology. 2. Sequela of chronic small vessel ischemic disease. 3. Patent normal appearing major intracranial vasculature without evidence of significant vasculitis. Partially visualized temporal arteries are unremarkable. Ultrasound of the temporal arteries can be considered. MRA Angiogram Head w/o Contrast Impression RESIDENT PRELIMINARY INTERPRETATION IMPRESSION: No large vessel occlusion, significant major intracranial arterial stenosis, or definite aneurysm. No definite enlarged temporal artery bilaterally. MRA Angiogram Neck w/o & w Contrast Impression RESIDENT PRELIMINARY INTERPRETATION IMPRESSION: Neck MRA demonstrates patent major cervical vasculature without significant stenosis. Associated attestation - Marilee Deal MD - 03/23/2024 3:28 PM CDT Physician Attestation I saw this patient with the resident and agree with the resident/fellow's findings and plan of careas documented in the note. Quiñonez findings: Please see A&P for additional details of medical decision making. I have personally reviewed the following data over the past 24 hrs: 7.2 \ 13.2 / 203 141 108 (H) 14.1 / 150 (H) 3.4 20 (L) 0.59 \ Procal: N/A CRP: <3.00 Lactic Acid: N/A Marilee Deal MD Date of Service (when I saw the patient): 03/22/24 documented in this encounter Consult Notes * Ashwin Galo MD - 03/24/2024 2:45 PM CDT [facility] Rheumatology IP Consult Consult for: GCA ASSESSMENT AND RECOMMENDATIONS: Gato Partida is a 78 year old female with pmhx questionable SLE - no features of SLE present at this moment, A fib, polymalgia rheumatica (recently diagnosed and steroids), Graves Disease who presented with right sided head pain and vision changes. Admitted on 03/22/2024 for possible GCA. Patient reports classic symptoms of GCA, temporal headaches, neck pain and rigidity, claw claudication and vision changes for the last 10 days associated with worsening PMR symptoms - mostly pain andstiffness in her proximal arms and legs despite recent increase prednisone dose concerning for GCA.Seen by ophthalmology, started on pulse steroids on 03/22/24. Ophthalmology recs appreciated. MRA and MRI head and neck did not showed evidence of vasculitis. CTA chest did not showed large vessel involvement. Surgery consulted, plan for temporal artery biopsy tomorrow as inpatient. Patient's headaches, vision changes and jaw claudication resolved on pulse steroids, but continues to have some numbness/heaviness over right side of face. High suspicion of GCA. Will place order for tocilizumab as outpatient and plan to see patient in the clinic on April 17 for post hospital follow-up. DIAGNOSIS: GCA PMR Lightheadedness with gait imbalance Hx A fib Hx grave disease RECOMMENDATIONS: -- Continue Solu-Medrol 1g IV qd x 3 days (started on 03/22) -- Start prednisone 60 mg daily tomorrow. Follow by prednisone taper as below -- Will place order to start tocilizumab 162 mg subcutaneous once every week as outpatient. Risk and benefits discussed with patient. -- Start bactrim DS tablet every MWF for PCP ppx -- Continue Vit D -- Encourage to consume appx 1200 mg of calcium daily with her diet. -- Patient will need a Dexa scan as outpatient -- Continue PPI ppx - can switch to oral once on oral prednisone. -- Will place a MTM referral and Rheumatology referral orders - Plan to see patient in the rheumatology clinic on April 17 at 12:[address] Crain. -- Follow-up surgery for temporal Artery Biopsy at urgent next available -- Follow-up Ophthalmology and surgery recs Weeks Daily prednisone dose (mg) 26-week taper 1 60 2 50 3 40 4 35 5 30 6 25 7 20 8 15 9 12.5 10 12.5 11 10 12 9 13 8 14 7 15 6 16 6 17 5 18 5 19 4 20 4 21 3 22 3 23 2 24 2 25 1 26 1 I discussed the findings and recommendations with the patient. I communicated the assessment and plan to the consulting team. Case seen and discussed with Dr. Paras Rodríguez MD PGY-4 Rheumatology Fellow [phone] [text page] History of Present Illness Gato Partida is a 78 year old female with pmhx questionable SLE - not features of SLE presentat this moment, A fib, polymalgia rheumatica (recently diagnosed and steroids), Graves Disease who presented on 03/22/24 with right sided head pain and vision changes ongoing for around 10 days associated with worsening PMR symptoms - mostly bilateral arms and legs pain and stiffness - 03/13 started to notice right sided headache that radiated to C spine, scalp tenderness, and vision changes. Had some diplopia which resolved. Has a chronic (~6-12 mos) history of polymyalgia rheumatica and a longstanding (~40 years) history of SLE. Describes headache crescendo as 10/10 and culminating in difficulty eating due to jaw pain while chewing. Describes vision changes as blurred vision, does not endorse a visual field deficit. Also has some aching pain of the eye and pain associated with eye movements. - 03/15 presented to ED, increased prednisone 20 mg PO QD; - 03/20 Follow up rheumatology clinic, self-discontinued steroids due to not having been given further instructions. Told to proceed to the emergency department immediately, however patient did not goto the ED. Around the same timeframe (~03/13), the patient has noticed that her atrial fibrillation has been having intermittent episodes causing rapid heart rate and has been feeling more faint. Does not think that she has ever lost consciousness, but has fallen a few times and is no longer able to garden or deadhead her roses due to losing her balance. She states that her vision worsens during these episodes as well, though has difficulty differentiating whether this may be due to lightheadedness versus true visual acuity change. Today, patient headaches, jaw claudication and neck pain and rigidity are improving. Reports some right sided numbness in her face but less than before. Denies any other new or worsening symptoms at this moment. Denies any joint pain, new rash, mouth sores, photosensitivity, dry eyes, dry mouth, raynouds, chest pain, sob, abdominal pain, dysuria or diarrhea. No results found for: HBCAB, [id number], HCABC, HCVAB, TBRES Immunization History Administered Date(s) Administered COVID-19 Monovalent 18+ (Moderna) 10/15/2020, 11/12/2020 Influenza (IIV3) PF 05/05/2011 Review of Systems Unless stated above, a 14-point review of systems was otherwise normal. Past Medical History No past medical history on file. Past Surgical History: Procedure Laterality Date GASTRIC BYPASS JOINT REPLACEMENT Right No family history on file. Social History Socioeconomic History Marital status: Spouse [...] Resource Strain: Low Risk (10/10/2022) Received from [facility] Overall Financial Resource Strain (CARDIA) Difficulty of Paying Living Expenses: Not hard at all Food Insecurity: No Food Insecurity (10/10/2022) Received from [facility] Hunger Vital Sign Worried About Running Out of Food in the Last Year: Never true Ran Out of Food in the Last Year: Never true Transportation Needs: No Transportation Needs (10/10/2022) Received from [facility] PRAPARE - Transportation Lack of Transportation (Medical): No Lack of Transportation (Non-Medical): No Physical Activity: Insufficiently Active (10/10/2022) Received from [facility] Exercise Vital Sign Days of Exercise per Week: 2 days Minutes of Exercise per Session: 40 min Stress: No Stress Concern Present (10/10/2022) Received from [facility] [employer] - Occupational Stress Questionnaire Feeling of Stress : Only a little Social Connections: Socially Integrated (10/10/2022) Received from [facility] Social Connection and Isolation Panel [NHANES] Frequency of Communication with Friends and Family: Twice a week Frequency of Social Gatherings with Friends and Family: Twice a week Attends Christianity Services: More than 4 times per year Active Member of Clubs or Organizations: Yes Attends Club or Organization Meetings: 1 to 4 times per year Marital Status: Interpersonal Safety: Not At Risk (10/10/2022) Received from [facility] Humiliation, Afraid, Rape, and Kick questionnaire Fear of Current or Ex-Partner: No Emotionally Abused: No Physically Abused: No Sexually Abused: No Housing Stability: Low Risk (10/10/2022) [facility] Housing Stability Vital Sign Unable to Pay for Housing in the Last Year: No Number of Places Lived in the Last Year: 1 Unstable Housing in the Last Year: No Patient Active Problem List Diagnosis Adjustment reaction Anxiety Calcium pyrophosphate deposition disease Chondrocalcinosis Coronary atherosclerosis 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 Wt Readings from Last 4 Encounters: 03/23/24 68.6 kg (151 lb 4.8 oz) 03/20/24 67.8 kg (149 lb 6.4 oz) 12/13/23 65.9 kg (145 lb 3.2 oz) 11/06/23 66.1 kg (145 lb 11.6 oz) Physical Exam Vitals reviewed. HENT: Head: Normocephalic and atraumatic. Comments: R sided Temporal tenderness improving Mouth/Throat: Comments: R sided mandibular tenderness improving Eyes: Extraocular Movements: Extraocular movements intact. Cardiovascular: Rate and Rhythm: Normal rate and regular rhythm. Pulses: Normal pulses. Heart sounds: Normal heart sounds. Pulmonary: Breath sounds: Normal breath sounds. Abdominal: Palpations: Abdomen is soft. Musculoskeletal: General: No swelling, tenderness or deformity. Neurological: General: No focal deficit present. Mental Status: She is alert and oriented to person, place, and time. Comments: Right sided numbness in her face - improving Data CBC: Recent Labs Lab Test 03/22/24 0845 WBC 9.8 RBC 4.56 HGB 13.5 HCT 42.0 MCV 92 MCH 29.6 MCHC 32.1 RDW 15.2* PLT 223 BMP: Recent Labs Lab Test 03/22/24 0845 NA 139 POTASSIUM 3.8 CHLORIDE 105 CO2 23 ANIONGAP 11 GLC 88 BUN 19.2 CR 0.64 GFRESTIMATED >90 CALDERON 9.4 LFT: Recent Labs Lab Test 03/22/24 0845 PROTTOTAL 7.0 ALBUMIN 4.4 BILITOTAL 0.3 ALKPHOS 121 AST 21 ALT 79* No results found for: CKTOTAL TSH Date Value Ref Range Status 03/22/2024 2.40 0.30 - 4.20 uIU/mL Final UA RESULTS: Recent Labs Lab Test 03/22/24 0944 COLOR Straw APPEARANCE Clear URINEGLC Negative URINEBILI Negative URINEKETONE Negative SG 1.004 UBLD Negative URINEPH 6.0 PROTEIN Negative NITRITE Negative LEUKEST Moderate* RBCU 0 WBCU 24* Autoimmunity labs: Lab Results Component Value Date RHF <10 10/18/2023 Lab Results Component Value Date CCPIGG 1.0 10/18/2023 No results found for: ANCA No results found for: [id number] No results found for: [id number] No results found for: ANTONIA No results found for: DNA Lab Results Component Value Date SSAIGG Negative 10/18/2023 SSBIGG Negative 10/18/2023 No results found for: CCPABG, CCPABY, RF8, CARIA, ANCA, [id number], [id number], [id number], [id number] IMAGING: CTA Chest with Contrast Narrative: Exam: Computed tomographic angiography of the chest [...] degenerative changes throughout the visualized spine. Impression: Impression: Unremarkable CTA of the chest. No findings to suggest giant cell arteritis. I have personally reviewed the examination and initial interpretation and I agree with the findings. CORINNA BERG MD Echo Complete [id number]^DIGNA^MARGARITA [facility] [address] [place] [id number] Name: GATO PARTIDA : 1945 Study Date: 03/23/2024 07:53 AM Age: 78 yrs Gender: Female Patient Location: [facility] Reason For Study: Syncope Ordering Physician: MARGARITA SAWYER Performed By: Priscila Mann RDCS BSA: 1.6 m2 Height: 60 in Weight: 149 lb BP: 94/48 mmHg Procedure Complete Portable Echo Adult. Contrast Optison. Echocardiogram with two- dimensional, color and spectral Doppler performed. Optison ([facility] #[id number]) given intravenously. Patient was given 5 ml [...] Doppler Measurements & Calculations MV E max charla: 73.4 cm/sec MV A max charla: 118.4 cm/sec MV E/A: 0.62 MV dec time: 0.16 sec Ao V2 max: 161.2 cm/sec Ao max P.4 mmHg E/E' av.4 Lateral E/e': 9.5 Medial E/e': 11.2 RV S Charla: 14.7 cm/sec Report approved by: Malaika Dobbins MDon 03/23/2024 10:36 AM Data: Chart, labs and images reviewed and discussed with the rheumatology staff Associated attestation - Zhane Crain MD - 03/24/2024 3:54 PM CDT Staff addendum I confirmed quiñonez aspects of history and physical examination and discussed the management with the fellow/resident. I reviewed the available lab and imaging studies. I was directly involved in medicaldecision making and management of this patient, and I agree with the documentation, findings, and plan and outlined below. 35 MINUTES SPENT BY ME on the date of service doing chart review, history, exam, documentation & further activities per the note. Zhane Crain MD Rheumatology * Christo Alicea MD - 03/22/2024 7:34 PM CDTAssociated Order(s): SURGERY GENERAL ADULT IP CONSULT [facility] Consult Note - General Surgery Service Date of Admission: 03/22/2024 Consult Requested by: Marilee Deal Reason for Consult: Temporal Artery Biopsy Assessment & Plan: Surgery Gato Partida is a 78 year old female admitted on 03/22/2024 with concerns for GCA. General surgery consulted to obtain right temporal artery biopsy for tissue diagnosis. - NPO at midnight - General surgery team will obtain formal consent in the morning - Will aim for temporal artery biopsy tomorrow or Sunday, pending OR availability Drains: None Code Status: Full Code Clinically Significant Risk Factors Present on Admission # Hypertension: Noted on problem list The patient's care was discussed with the chief resident, Dr. Samson, and staff surgeon, Dr. Telles. Christo Alicea MD General Surgery Resident [facility] Text page via [facility] Paging/Directory Chief Complaint Neck Pain History is obtained from the patient and the patient's chart. History of Present Illness Gato Partida is a 78 year old female with a history of polymyalgia rheumatica on prednisone, Graves disease, SVT, A-fib, hypertension presenting with right head/neck pain, dizziness, and blurred vision in her right eye admitted on 03/22 for possible giant cell arteritis. Reports approximately 10 days of right sided neck/head pain and blurry vision that has progressively worsened. Is also reporting left sided head pain, but is much less severe than the right side, andjaw pain that worsens when chewing. Currently denies any visual field deficits. She was seen 03/15 for these symptoms and was prescribed 20mg prednisone for 5 days. Was previously on prednisone 5mg daily for approximately a month for her polymyalgia rheumatica. Has been experiencing chronic dizziness and weakness that worsens when leaning forward, reports 3-4 falls within the last 6 months. Self reports 15 pound weight gain over the past few months and lower extremity swelling over the past few days. Has been experiencing more severe episodes of a-fib in the past two weeks as well. One week ago describes having an intense pleuritic chest/rib pain that lasted for a few days, had had episodes similar in the past but have always resolved within hours. Currently denies chest pain/SOB. Labs essentially unremarkable on admission. Past Medical History No past medical history on file. Past Surgical History Past Surgical History: Procedure Laterality Date GASTRIC BYPASS JOINT REPLACEMENT Right Prior to Admission Medications I have reviewed this patient's current medications Current Outpatient Medications on File Prior to Encounter Medication Sig Dispense Refill amLODIPine (NORVASC) 10 MG tablet Take 1 tablet by mouth daily at 2 pm amoxicillin (AMOXIL) 500 MG capsule TAKE 4 CAPSULES BY MOUTH 1 HOUR BEFORE DENTAL APPOINTMENT FOR 1DOSE atorvastatin (LIPITOR) 10 MG tablet Take 10 mg by mouth at bedtime D3-50 1.25 MG (51708 UT) capsule Take 1,250 mcg by mouth [...] your dose by 1mg every 2 weeks (Patient not taking: Reported on 03/20/2024) 120 tablet 2 predniSONE (DELTASONE) 5 MG tablet Take 1 tablet (5 mg) by mouth daily (Patient not taking: Reported on 03/20/2024) 30 tablet 1 predniSONE (DELTASONE) 5 MG tablet take 2 tablets daily for 2 weeks, then take 1 tablet and 4 of the 1mg tablets for a total daily dose of 9mg daily for 2 weeks, You will continue to decrease your dose by 1mg every 2 weeks (Patient not taking: Reported on 03/20/2024) 90 tablet 2 Review of Systems The 10 point Review of Systems is negative other than noted in the HPI or here. Social History I have reviewed this patient's social history and updated it with pertinent information if needed. Social History Tobacco Use Smoking status: Never Passive exposure: Past Smokeless tobacco: Never Substance Use Topics Alcohol use: Yes Comment: occasional wine Drug use: Never Family History Allergies 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 Physical Exam Vitals: Most Recent Ranges (Last 24 hours) Temp: 98.3 ??F (36.8 ??C) Pulse: 85 BP: 94/48 Resp: 18 SpO2: 97 % O2 Device: Oxymask Temp Min: 98.1 ??F (36.7 ??C) Max: 98.3 ??F (36.8 ??C) Pulse Min: 73 Max: 85 BP Min: 94/48 Max: 189/92 Resp Min: 14 Max: 18 SpO2 Min: 96 % Max: 97 % Physical Exam: General: sitting up bed, in no acute distress HEENT: anicteric sclerae, normocephalic, EOMI, PERRL CV: Warm and well perfused Pulm: NWOB on RA Abd: soft, nondistended, nontender MSK: MARSHALL x4 Neuro: AAOx3, no focal cranial nerve deficits, moving all extremities spontaneously Data I have personally reviewed the following data over the past 24 hrs: 9.8 \ 13.5 / 223 139 105 19.2 / 88 3.8 23 0.64 \ ALT: 79 (H) AST: 21 AP: 121 TBILI: 0.3 ALB: 4.4 TOT PROTEIN: 7.0 LIPASE: N/A Trop: 12 BNP: 523 TSH: 2.40 T4: N/A A1C: N/A Procal: N/A CRP: <3.00 Lactic Acid: 1.4 INR: 0.91 PTT: 33 D-dimer: N/A Fibrinogen: N/A Imaging results reviewed over the past 24 hrs: Recent Results (from the past 24 hour(s)) MR Brain and Orbits w/o & w Contrast Impression RESIDENT PRELIMINARY INTERPRETATION Impression: 1. No acute intracranial pathology. 2. Sequela of chronic small vessel ischemic disease. 3. Patent normal appearing major intracranial vasculature without evidence of significant vasculitis. Partially visualized temporal arteries are unremarkable. Ultrasound of the temporal arteries can be considered. MRA Angiogram Head w/o Contrast Impression RESIDENT PRELIMINARY INTERPRETATION IMPRESSION: No large vessel occlusion, significant major intracranial arterial stenosis, or definite aneurysm. No definite enlarged temporal artery bilaterally. MRA Angiogram Neck w/o & w Contrast Impression RESIDENT PRELIMINARY INTERPRETATION IMPRESSION: Neck MRA demonstrates patent major cervical vasculature without significant stenosis. US Lower Extremity Venous Duplex Right Narrative EXAMINATION: DOPPLER VENOUS ULTRASOUND OF THE RIGHT LOWER EXTREMITY, 03/22/2024 6:05 PM COMPARISON: None. HISTORY: Rule out DVT in swollen right leg TECHNIQUE: Anderson-scale evaluation with compression, spectral flow, and color Doppler assessment of the deep venous system of the right leg from groin to knee, and then at the ankle. Of note, Images are incorrectly labeled as left. FINDINGS: In the right lower extremity, the common femoral, femoral, popliteal and posterior tibial veins demonstrate normal compressibility and blood flow. Patent left common femoral vein Impression IMPRESSION: 1. No evidence of right lower extremity deep venous thrombosis. I have personally reviewed the examination and initial interpretation and I agree with the findings. TAMERA ANTHONY MD CTV Head Neck w Contrast Impression RESIDENT PRELIMINARY INTERPRETATION Impression: No evidence of intracranial venous sinus thrombosis. Associated attestation - Teresa Telles MD - 04/12/2024 3:13 PM CDT I discussed this patient with the resident. I agree with the assessment and plan in the note below.I was immediately available if needed. Teresa Telles MD data consultant Pager [phone] * Ge Lincoln Lowe MD - 03/22/2024 3:49 PM CDTAssociated Order(s): NEUROLOGY GENERAL ADULT IP CONSULT [facility] Neurology Consultation Patient Name: Gato Partida : 1945 Date of Service: March 22, 2024 Primary care provider: Feliciano Uribe Neurology consultation service was asked to see Gato Partida by Dr. Marilee Deal MD to evaluate for possible temporal arteritis. Chief Complaint: right sided head pain and vision changes. History of Present Illness: Gato Partida is a 78 year old female with history of SLE, polymalgia rheumatica, Graves Disease who presents with right sided head pain and vision changes. This initially started on 03/13 with right sided headache which radiated to her neck. This was also associated with scalp tenderness and vision changes. She describes the headache as slowly worsening to 10/10 pain and is also associated with jaw pain. This has made it difficult to chew. Her vision changes are of the right eye only and consist of blurry vision throughout. There is also some aching pain of the eye that worsens slightly with EOM. She presented to the ED on 03/15 where she was given prednisone 20mg PO daily to bridge herto an urgent rheumatology appointment. At this follow up appointment on 03/20, rheumatology was concerned for GCA and advised the patient to present to the ED immediately, however she ended up presenting on 03/22. CRP < 3. ROS A comprehensive ROS was performed and pertinent findings were included in HPI. PMH No past medical history on file. Past Surgical History: Procedure Laterality Date GASTRIC BYPASS JOINT REPLACEMENT Right Medications I have personally reviewed the patient's medication list. Allergies I have personally reviewed the patient's allergy list. Social History Social History Socioeconomic History Marital status: Spouse [...] Resource Strain: Low Risk (10/10/2022) Received from [facility] Overall Financial Resource Strain (CARDIA) Difficulty of Paying Living Expenses: Not hard at all Food Insecurity: No Food Insecurity (10/10/2022) Received from [facility] Hunger Vital Sign Worried About Running Out of Food in the Last Year: Never true Ran Out of Food in the Last Year: Never true Transportation Needs: No Transportation Needs (10/10/2022) Received from [facility] PRAPARE - Transportation Lack of Transportation (Medical): No Lack of Transportation (Non-Medical): No Physical Activity: Insufficiently Active (10/10/2022) Received from [facility] Exercise Vital Sign Days of Exercise per Week: 2 days Minutes of Exercise per Session: 40 min Stress: No Stress Concern Present (10/10/2022) Received from [facility] [employer] - Occupational Stress Questionnaire Feeling of Stress : Only a little Social Connections: Socially Integrated (10/10/2022) Received from [facility] Social Connection and Isolation Panel [NHANES] Frequency of Communication with Friends and Family: Twice a week Frequency of Social Gatherings with Friends and Family: Twice a week Attends Christianity Services: More than 4 times per year Active Member of Clubs or Organizations: Yes Attends Club or Organization Meetings: 1 to 4 times per year Marital Status: Interpersonal Safety: Not At Risk (10/10/2022) Received from [facility] Humiliation, Afraid, Rape, and Kick questionnaire Fear of Current or Ex-Partner: No Emotionally Abused: No Physically Abused: No Sexually Abused: No Housing Stability: Low Risk (10/10/2022) Received from [facility] Housing Stability Vital Sign Unable to Pay for Housing in the Last Year: No Number of Places Lived in the Last Year: 1 Unstable Housing in the Last Year: No Family History No family history on file. Physical Examination Vitals: BP 94/48 Pulse 85 Temp 98.3 ??F (36.8 ??C) (Oral) Resp 18 SpO2 97% General: Lying in bed, NAD Head: NC/AT Eyes: no icterus, op pink and moist Cardiac: RRR. Extremities warm, no edema. Respiratory: non-labored on RA GI: S/NT/ND Skin: No rash or lesion on exposed skin Psych: Mood pleasant, affect congruent Neuro: Mental status: Awake, alert, attentive, oriented to self, time, place, and circumstance. Language is fluent and coherent with intact comprehension of complex commands, naming and repetition. Cranial nerves: Vision is described as subjectively blurry throughout the right eye. Left eye is unaffected. Otherwise VFF, PERRL, conjugate gaze, EOMI, facial sensation intact, face symmetric, shoulder shrug strong, tongue/uvula midline, no dysarthria. Motor: Normal bulk and tone. No abnormal movements. 5/5 strength bilaterally in deltoids, biceps, triceps, hand drying machine tender, hip flexors, hip extensors, knee flexion, knee extension, plantarflexion, dorsiflexion. Reflexes: Did not assess Sensory: Intact to light touch in distal aspects of all 4 extremities Coordination: Did not assess Gait: Normal width, stride length, turn, and arm swing. Station normal. Investigations I have personally reviewed pertinent labs, tests, and radiological imaging. Discussion of notable findings is included under Impression. Recent Results (from the past 24 hour(s)) Extra Blue Top Tube Collection Time: 03/22/24 8:45 AM Result Value Ref Range Hold Specimen JIC Extra Red Top Tube Collection Time: 03/22/24 8:45 AM Result Value Ref Range Hold Specimen JIC Extra Green Top ([employer] Heparin) Tube Collection Time: 03/22/24 8:45 AM Result Value Ref Range Hold Specimen JIC Extra Purple Top Tube Collection Time: 03/22/24 8:45 AM Result Value Ref Range Hold Specimen JIC Partial thromboplastin time Collection Time: 03/22/24 8:45 AM Result Value Ref Range aPTT 33 22 - 38 Seconds INR Collection Time: 03/22/24 8:45 AM Result Value Ref Range INR 0.91 0.85 - 1.15 CRP inflammation Collection Time: 03/22/24 8:45 AM Result Value Ref Range CRP Inflammation <3.00 <5.00 mg/L Comprehensive metabolic panel Collection Time: 03/22/24 8:45 AM Result Value Ref Range Sodium 139 135 - 145 mmol/L Potassium 3.8 3.4 - 5.3 mmol/L Carbon Dioxide (CO2) 23 22 - 29 mmol/L Anion Gap 11 7 - 15 mmol/L Urea Nitrogen 19.2 8.0 - 23.0 mg/dL Creatinine 0.64 0.51 - 0.95 mg/dL GFR Estimate >90 >60 mL/min/1.73m2 Calcium 9.4 8.8 - 10.4 mg/dL Chloride 105 98 - 107 mmol/L Glucose 88 70 - 99 mg/dL Alkaline Phosphatase 121 40 - 150 U/L AST 21 0 - 45 U/L ALT 79 (H) 0 - 50 U/L Protein Total 7.0 6.4 - 8.3 g/dL Albumin 4.4 3.5 - 5.2 g/dL Bilirubin Total 0.3 <=1.2 mg/dL Magnesium Collection Time: 03/22/24 8:45 AM Result Value Ref Range Magnesium 1.9 1.7 - 2.3 mg/dL Troponin T, High Sensitivity Collection Time: 03/22/24 8:45 AM Result Value Ref Range Troponin T, High Sensitivity 12 <=14 ng/L Nt probnp inpatient (BNP) Collection Time: 03/22/24 8:45 AM Result Value Ref Range N terminal Pro BNP Inpatient 523 0 - 1,800 pg/mL TSH Collection Time: 03/22/24 8:45 AM Result Value Ref Range TSH 2.40 0.30 - 4.20 uIU/mL CBC with platelets and differential Collection Time: 03/22/24 8:45 AM Result Value Ref Range WBC Count 9.8 4.0 - 11.0 10e3/uL RBC Count 4.56 3.80 - 5.20 10e6/uL Hemoglobin 13.5 11.7 - 15.7 g/dL Hematocrit 42.0 35.0 - 47.0 % MCV 92 78 - 100 fL MCH 29.6 26.5 - 33.0 pg MCHC 32.1 31.5 - 36.5 g/dL RDW 15.2 (H) 10.0 - 15.0 % Platelet Count 223 150 - 450 10e3/uL % Neutrophils 77 % % Lymphocytes 13 % % Monocytes 8 % % Eosinophils 2 % % Basophils 0 % % Immature Granulocytes 0 % NRBCs per 100 WBC 0 <1 /100 Absolute Neutrophils 7.5 1.6 - 8.3 10e3/uL Absolute Lymphocytes 1.2 0.8 - 5.3 10e3/uL Absolute Monocytes 0.8 0.0 - 1.3 10e3/uL Absolute Eosinophils 0.2 0.0 - 0.7 10e3/uL Absolute Basophils 0.0 0.0 - 0.2 10e3/uL Absolute Immature Granulocytes 0.0 <=0.4 10e3/uL Absolute NRBCs 0.0 10e3/uL EKG 12-lead, tracing only Collection Time: 03/22/24 9:16 AM Result Value Ref Range Systolic Blood Pressure mmHg Diastolic Blood Pressure mmHg Ventricular Rate 70 BPM Atrial Rate 70 BPM NH Interval 130 ms QRS Duration 84 ms QT 394 ms QTc 425 ms P [place] 19 degrees R AXIS 33 degrees T [place] 60 degrees Interpretation ECG Sinus rhythm Normal ECG Erythrocyte sedimentation rate auto Collection Time: 03/22/24 9:27 AM Result Value Ref Range Erythrocyte Sedimentation Rate 4 0 - 30 mm/hr Lactic Acid Whole Blood with 1X Repeat in 2 HR when >2 Collection Time: 03/22/24 9:27 AM Result Value Ref Range Lactic Acid, Initial 1.4 0.7 - 2.0 mmol/L UA with Microscopic reflex to Culture Collection Time: 03/22/24 9:44 AM Specimen: Urine, Midstream Result Value Ref Range Color Urine Straw Colorless, Straw, Light Yellow, Yellow Appearance Urine Clear Clear Glucose Urine Negative Negative mg/dL Bilirubin Urine Negative Negative Ketones Urine Negative Negative mg/dL Specific [place] Urine 1.004 1.003 - 1.035 Blood Urine Negative Negative pH Urine 6.0 5.0 - 7.0 Protein Albumin Urine Negative Negative mg/dL Urobilinogen Urine Normal Normal, 2.0 mg/dL Nitrite Urine Negative Negative Leukocyte Esterase Urine Moderate (A) Negative RBC Urine 0 <=2 /HPF WBC Urine 24 (H) <=5 /HPF Squamous Epithelials Urine 1 <=1 /HPF Transitional Epithelials Urine <1 <=1 /HPF Was patient transferred from outside hospital? No Impression #Right sided headache and vision changes #Concern for temporal arteritis vs medication overuse headache Gato Partida is a 78 year old female with history of SLE, polymalgia rheumatica, Graves Disease who presents with right sided head pain and vision changes. I would tend to agree with rheum and ophthalmology teams that this presentation is concerning for a new temporal arteritis (AKA giant cell arteritis, GCA) considering subacute unilateral temporal pain involving the eye, vision blurriness, jaw claudication, and an extensive rheumatological past medical history. That being said, her CRP is curiously undetectable, which is not classically the case with active GCA. The patient has notably been on a prednisone taper since around October of this year. Given her pain history, medication overuse MCGEE was also considered, however she uses only tylenol for pain quite conservatively (about onceevery other day) making this less likely. In addition, this would not explain her vision changes. In order to rule out alternative etiologies of her present symptoms, we would agree with the obtaining of MRI brain and orbits w/ and w/o as well as MRA head and neck. We would also recommend CT venogram head and neck to r/o venous thrombosis iso possible hypercoagulable state due to rheum history. Given that our suspicion is high for temporal arteritis in this patient, and considering the potential vision loss as a result of delayed treatment, we would agree with prompt administration of 1g IV methylprednisolone in addition to the above. We appreciate the involvement of the rheumatology and ophthalmology teams in the care of this patient, and will follow along closely. Recommendations -Agree with starting IV methylpred 1G daily -Daily CRP and ESR labs -Imaging: MRI brain and orbits w/ and w/o, MRA head and neck, CTV head and neck -Temporal artery biopsy while inpatient if possible -Appreciate input from ophthalmology and rheumatology teams Thank you for involving Neurology in the care of Gato Partida. Please do not hesitate to callwith questions/concerns (consult pager [phone]). Patient was seen and discussed with Dr. Cervantes. Lincoln Carolina MD Neurology Resident, PGY-2 Associated attestation - Alem Cervantes MD - 03/23/2024 12:52 PM CDT Physician Attestation I did not see the patient on this date. Patient was staffed with me via phone. Ms. Gato Partida is a 78 year old female with an extensive autoimmune disease history includingpolymyalgia rheumatica, Grave's disease and SLE who presented with right sided head pain last (as well as left sided numbness) and then 3 days ago began having right sided vision loss, then left sided vision loss. MR was negative for stroke to explain the hemibody numbness. Examination was notable for 80% reduced sensation of entire hemibody to light touch. Visual benítez were intact, EOMI, PERRL, facial symmetry intact, tongue movement symmetric. Difficult with arm abduction due to pain, but full strength throughout, normoreflexia with downgoing toes. FNF intact and heel victor on the left, right could not be performed due to pain. Recommended CT head and neck venogram given active autoimmune disease to evaluate for CVST, daily ESR/CRP, MRI brain and orbits w/ and w/o, MRA head and neck -Temporal artery biopsy while inpatient if possible Alem Cervantes MD * Ashwin Galo MD - 03/22/2024 2:26 PM CDTAssociated Order(s): RHEUMATOLOGY IP CONSULT [facility] Rheumatology IP Consult Consult for: GCA ASSESSMENT AND RECOMMENDATIONS: Gato Partida is a 78 year old female with pmhx questionable SLE - not features of SLE presentat this moment, A fib, polymalgia rheumatica (recently diagnosed and steroids), Graves Disease who presented with right sided head pain and vision changes. Admitted on 03/22/2024 for possible GCA. Patient reports classic symptoms of GCA, temporal headaches, neck pain and rigidity, claw claudication and vision changes for the last 10 days associated with worsening PMR symptoms - mostly pain andstiffness in her proximal arms and legs despite recent increase prednisone dose concerning for GCA.Seen by ophthalmology, started on pulse steroids. Ophthalmology recs appreacited. Agrre with MRA head and neck and with surgery consult for temporal artery biopsy. Additionally, Chest CTA to rule outany large vessel involvement since patient c/o episodes of lightheadedness and imbalance. DIAGNOSIS: GCA PMR Lightheadedness with gait imbalance Hx A fib Hx grave disease RECOMMENDATIONS: -- Continue Solu-Medrol 1g IV qd x 3 days -- Start prednisone 1 mg per Kg after the third day of solumedrol -- PPI while on IV corticosteroids, pt has hx of GI bleeding, consider IV PPI while on IV steroids -- Agree with MRA head and neck with vasculitis protocol -- CTA chest to assess for large vessel involvement, pt c/o chest pain leading up to presentation - Follow-up surgery for Right-sided Temporal Artery Biopsy at urgent next available (strong preference to obtain while inpatient, given duration of steroid treatment and chronicity at time of presentation) -- will consider tocilizumab as outpatient. I discussed the findings and recommendations with the patient. I communicated the assessment and plan to the consulting team. Case seen and discussed with Dr. Paras Rodríguez MD PGY-4 Rheumatology Fellow [phone] [text page] History of Present Illness Gato Partida is a 78 year old female with pmhx questionable SLE - not features of SLE presentat this moment, A fib, polymalgia rheumatica (recently diagnosed and steroids), Graves Disease who presented on 03/22/24 with right sided head pain and vision changes ongoing for around 10 days associated with worsening PMR symptoms - mostly bilateral arms and legs pain and stiffness - 03/13 started to notice right sided headache that radiated to C spine, scalp tenderness, and vision changes. Had some diplopia which resolved. Has a chronic (~6-12 mos) history of polymyalgia rheumatica and a longstanding (~40 years) history of SLE. Describes headache crescendo as 10/10 and culminating in difficulty eating due to jaw pain while chewing. Describes vision changes as blurred vision, does not endorse a visual field deficit. Also has some aching pain of the eye and pain associated with eye movements. - 03/15 presented to ED, increased prednisone 20 mg PO QD; - 03/20 Follow up rheumatology clinic, self-discontinued steroids due to not having been given further instructions. Told to proceed to the emergency department immediately, however patient did not goto the ED. Around the same timeframe (~03/13), the patient has noticed that her atrial fibrillation has been having intermittent episodes causing rapid heart rate and has been feeling more faint. Does not think that she has ever lost consciousness, but has fallen a few times and is no longer able to garden or deadhead her roses due to losing her balance. She states that her vision worsens during these episodes as well, though has difficulty differentiating whether this may be due to lightheadedness versus true visual acuity change. Denies any joint pain, new rash, mouth sores, photosensitivity, dry eyes, dry mouth, raynouds, chest pain, sob, abdominal pain, dysuria or diarrhea. No results found for: HBCAB, [id number], HCABC, HCVAB, TBRES Immunization History Administered Date(s) Administered COVID-19 Monovalent 18+ (Moderna) 10/15/2020, 11/12/2020 Influenza (IIV3) PF 05/05/2011 Review of Systems Unless stated above, a 14-point review of systems was otherwise normal. Past Medical History No past medical history on file. Past Surgical History: Procedure Laterality Date GASTRIC BYPASS JOINT REPLACEMENT Right No family history on file. Social History Socioeconomic History Marital status: Spouse [...] Resource Strain: Low Risk (10/10/2022) Received from [facility] Overall Financial Resource Strain (CARDIA) Difficulty of Paying Living Expenses: Not hard at all Food Insecurity: No Food Insecurity (10/10/2022) Received from [facility] Hunger Vital Sign Worried About Running Out of Food in the Last Year: Never true Ran Out of Food in the Last Year: Never true Transportation Needs: No Transportation Needs (10/10/2022) Received from [facility] PRAPARE - Transportation Lack of Transportation (Medical): No Lack of Transportation (Non-Medical): No Physical Activity: Insufficiently Active (10/10/2022) Received from [facility] Exercise Vital Sign Days of Exercise per Week: 2 days Minutes of Exercise per Session: 40 min Stress: No Stress Concern Present (10/10/2022) Received from [facility] [employer] - Occupational Stress Questionnaire Feeling of Stress : Only a little Social Connections: Socially Integrated (10/10/2022) Received from [facility] Social Connection and Isolation Panel [NHANES] Frequency of Communication with Friends and Family: Twice a week Frequency of Social Gatherings with Friends and Family: Twice a week Attends Christianity Services: More than 4 times per year Active Member of Clubs or Organizations: Yes Attends Club or Organization Meetings: 1 to 4 times per year Marital Status: Interpersonal Safety: Not At Risk (10/10/2022) Received from [facility] Humiliation, Afraid, Rape, and Kick questionnaire Fear of Current or Ex-Partner: No Emotionally Abused: No Physically Abused: No Sexually Abused: No Housing Stability: Low Risk (10/10/2022) [facility] Housing Stability Vital Sign Unable to Pay for Housing in the Last Year: No Number of Places Lived in the Last Year: 1 Unstable Housing in the Last Year: No Patient Active Problem List Diagnosis Adjustment reaction Anxiety Calcium pyrophosphate deposition disease Chondrocalcinosis Coronary atherosclerosis 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 Hemorrhagic shock (H) High aspartate aminotransferase level Hyperlipidemia Hypothyroidism Primary hypertension Primary osteoarthritis of both ankles Primary osteoarthritis of left knee Temporal arteritis (H) Neck pain PMR (polymyalgia rheumatica) (H24) Right temporal headache Decreased vision of right eye 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 Physical Exam PHYSICAL EXAM BP 94/48 Pulse 85 Temp 98.3 ??F (36.8 ??C) (Oral) Resp 18 SpO2 97% Wt Readings from Last 4 Encounters: 03/20/24 67.8 kg (149 lb 6.4 oz) 12/13/23 65.9 kg (145 lb 3.2 oz) 11/06/23 66.1 kg (145 lb 11.6 oz) 10/18/23 66.1 kg (145 lb 11.2 oz) Physical Exam Vitals reviewed. HENT: Head: Normocephalic and atraumatic. Comments: R sided Temporal tenderness Mouth/Throat: Comments: R sided mandibular tenderness Eyes: Extraocular Movements: Extraocular movements intact. Cardiovascular: Rate and Rhythm: Normal rate and regular rhythm. Pulses: Normal pulses. Heart sounds: Normal heart sounds. Pulmonary: Breath sounds: Normal breath sounds. Abdominal: Palpations: Abdomen is soft. Musculoskeletal: General: No swelling, tenderness or deformity. Neurological: General: No focal deficit present. Mental Status: She is alert and oriented to person, place, and time. Data CBC: Recent Labs Lab Test 03/22/24 0845 WBC 9.8 RBC 4.56 HGB 13.5 HCT 42.0 MCV 92 MCH 29.6 MCHC 32.1 RDW 15.2* PLT 223 BMP: Recent Labs Lab Test 03/22/24 0845 NA 139 POTASSIUM 3.8 CHLORIDE 105 CO2 23 ANIONGAP 11 GLC 88 BUN 19.2 CR 0.64 GFRESTIMATED >90 CALDERON 9.4 LFT: Recent Labs Lab Test 03/22/24 0845 PROTTOTAL 7.0 ALBUMIN 4.4 BILITOTAL 0.3 ALKPHOS 121 AST 21 ALT 79* No results found for: CKTOTAL TSH Date Value Ref Range Status 03/22/2024 2.40 0.30 - 4.20 uIU/mL Final UA RESULTS: Recent Labs Lab Test 03/22/24 0944 COLOR Straw APPEARANCE Clear URINEGLC Negative URINEBILI Negative URINEKETONE Negative SG 1.004 UBLD Negative URINEPH 6.0 PROTEIN Negative NITRITE Negative LEUKEST Moderate* RBCU 0 WBCU 24* Autoimmunity labs: Lab Results Component Value Date RHF <10 10/18/2023 Lab Results Component Value Date CCPIGG 1.0 10/18/2023 No results found for: ANCA No results found for: [id number] No results found for: [id number] No results found for: ANTONIA No results found for: DNA Lab Results Component Value Date SSAIGG Negative 10/18/2023 SSBIGG Negative 10/18/2023 No results found for: CCPABG, CCPABY, RF8, CARIA, ANCA, [id number], [id number], [id number], [id number] IMAGING: CTV Head Neck w Contrast RESIDENT PRELIMINARY INTERPRETATION Impression: No evidence of intracranial venous sinus thrombosis. US Lower Extremity Venous Duplex Right Narrative: EXAMINATION: DOPPLER VENOUS ULTRASOUND OF THE RIGHT LOWER EXTREMITY, 03/22/2024 6:05 PM COMPARISON: None. HISTORY: Rule out DVT in swollen right leg TECHNIQUE: Anderson-scale evaluation with compression, spectral flow, and color Doppler assessment of the deep venous system of the right leg from groin to knee, and then at the ankle. Of note, Images are incorrectly labeled as left. FINDINGS: In the right lower extremity, the common femoral, femoral, popliteal and posterior tibial veins demonstrate normal compressibility and blood flow. Patent left common femoral vein Impression: IMPRESSION: 1. No evidence of right lower extremity deep venous thrombosis. I have personally reviewed the examination and initial interpretation and I agree with the findings. TAMERA ANTHONY MD MR Brain and Orbits w/o & w Contrast RESIDENT PRELIMINARY INTERPRETATION Impression: 1. No acute intracranial pathology. 2. Sequela of chronic small vessel ischemic disease. 3. Patent normal appearing major intracranial vasculature without evidence of significant vasculitis. Partially visualized temporal arteries are unremarkable. Ultrasound of the temporal arteries can be considered. MRA Angiogram Neck w/o & w Contrast RESIDENT PRELIMINARY INTERPRETATION IMPRESSION: Neck MRA demonstrates patent major cervical vasculature without significant stenosis. MRA Angiogram Head w/o Contrast RESIDENT PRELIMINARY INTERPRETATION IMPRESSION: No large vessel occlusion, significant major intracranial arterial stenosis, or definite aneurysm. No definite enlarged temporal artery bilaterally. Data: Chart, labs and images reviewed and discussed with the rheumatology staff Associated attestation - Zhane Crain MD - 03/23/2024 12:25 AM CDT Staff addendum I confirmed quiñonez aspects of history and physical examination and discussed the management with the fellow/resident. I reviewed the available lab and imaging studies. I was directly involved in medicaldecision making and management of this patient, and I agree with the documentation, findings, and plan and outlined below. 60 MINUTES SPENT BY ME on the date of service doing chart review, history, exam, documentation & further activities per the note. Zhane Crain MD Rheumatology * Filipe Dickson MD - 03/22/2024 1:21 PM CDTAssociated Order(s): OPHTHALMOLOGY IP CONSULT Images from the original note were not included. OPHTHALMOLOGY CONSULT NOTE 03/22/24 I have not seen or examined the patient, but was available if the need had arisen. 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 She first noticed right sided headache, diplopia and loss of vision in the right eye since 03/13/24 while using prednisone 5 mg/day. She was seen in the ED on 03/15/24, was treated with 20 mg oral prednisone for 5 days until follow-up with her director correctional agency on 03/20/24 when she was seen and repaired referred to the ED because of concern for giant cell arteritis. Patient presented 2 days later on 03/22/2024. Today patient has a vision of 20/70 right eye , 20/25 left eye , right-sided APD, minimal color vision deficit right eye, and mild optic disc elevation right eye. Of note the left eye does not have acrowded disc. Patient also has right-sided headache, scalp tenderness, jaw claudication, joint pains, shoulder pain, proximal muscle weakness, history of resolved double vision, ESR 4, CRP <3. Patient has had normal ESR and CRP while diagnosed with polymyalgia rheumatica. Patient also complains of dizziness and falling. I reviewed the patient's MRI brain and orbit w/o w contrast, did not see any enhancement of the optic nerve or it's sheath , nor enhancement of the intracranial internal carotid artery . She has been on prednisone since 10/20 ( between 5 -15 mg) -I agree with ophthalmology resident, Dr. Anderson's plan. Please direct all questions or concerns to the on-call ophthalmology resident. Reid Sorto MD Fellow, Neuro-ophthalmology I have reviewed the documentation from Dr. [...] Long- term management will fall to her director correctional agency and patient would likely benefit from Actemra if she is a candidate and her insurance will approve. Filipe Dickson MD Courtesy Bus Driver, Neuro-Ophthalmology and Adult Strabismus Surgery Department of Ophthalmology and Visual Neurosciences [facility] Patient: Gato Partida ASSESSMENT/PLAN: Gato Partida is a 78 year old female with pmhx SLE, polymalgia rheumatica, Graves Disease whopresented with right sided head pain and vision changes. 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 On low dose prednisone (5- 10 mg) long-term. Taking 20 mg prednisone 03/15 to 03/20. Exam notable for vision 20/70 right, 20/25 left, right sided APD, color vision down by one test plate by Ishihara in right eye, and right eye fundus exam notable for mild optic disc edema with hyperemia, and mild vessel tortuosity. Otherwise no hemorrhages, CWS, or hernández red spot. Platelets (223), ESR (4) and CRP (<3) within normal limits Plan: - Admit to medicine - Daytime rheumatology consult - Daytime neurology consult- for dizziness and headahce - Solu-Medrol 1g IV qd x 3 days - PPI while on corticosteroids - MRI brain and orbit w/w/o contrast - Ok with MRA head and neck given FIRESTOPPER INSTALLER symptoms with headache and syncope, though defer to ordering team regarding this - recommend vasculitis protocol - Right-sided Temporal Artery Biopsy at urgent next available (strong preference to obtain while inpatient, given duration of steroid treatment and chronicity at time of presentation) Syncopal events Atrial fibrillation HTNsive Urgency vs Emergency - Mild evidence of hypertensive retinopathy on exam including tortuous vessels, though not likely longstanding as minimal copper wiring and no hemorrhages or cotton wool spots - It is possible that she is having a systemic hypertensive response due to ongoing corticosteroid therapy - Vision changes may have a contribution from elevated BP in which case this would be considered hypertensive emergency due to end organ involvement Plan: - Chest imaging per rheumatology - Management of BP and atrial fibrillation per internal medicine team - Consider workup for syncopal events while inpatient vs outpatient It is our pleasure to participate in this patient's care and treatment. Please contact us with any further questions or concerns. Discussed with Dr. Monroy who agreed with this assessment and plan. Ophthalmology will continue to follow closely while inpatient. Please contact physician specialist hospital television rental clerk with any questions or concerns. We appreciate your care of this patient. Luis Alberto Anderson MD, PGY3 Ophthalmology Resident [facility] HISTORY OF PRESENTING ILLNESS: Gato Partida is a 78 year old female who presented on 03/22/24 with right sided head pain andvision changes. - 03/13 started to notice right sided headache that radiated to C spine, scalp tenderness, and vision changes. Had some diplopia which resolved. Has a chronic (~6-12 mos) history of polymyalgia rheumatica and a longstanding (~40 years) history of SLE. Describes headache crescendo as 10/10 and culminating in difficulty eating due to jaw pain while chewing. Describes vision changes as blurred vision, does not endorse a visual field deficit. Also has some aching pain of the eye and pain associated with eye movements. - 03/15 presented to ED, started prednisone 20 mg PO QD; - 03/20 Follow up rheumatology clinic, self-discontinued steroids due to not having been given further instructions. Told to proceed to the emergency department immediately, though was Around the same timeframe (~03/13), the patient has noticed that her atrial fibrillation has been having intermittent episodes causing rapid heart rate and has been feeling more faint. Does not think that she has ever lost consciousness, but has fallen a few times and is no longer able to garden or deadhead her roses due to losing her balance. She states that her vision worsens during these episodes as well, though has difficulty differentiating whether this may be due to lightheadedness versus true visual acuity change. Denies double vision, flashes, floaters, curtain-like defects, and pain with eye movements. 10+ review of systems were otherwise negative except for that which has been stated above. OCULAR/MEDICAL/SURGICAL HISTORIES: Past Ocular History: wears contacts, history of CE IOL Ou, denies other problems Pertinent Systemic Medications: Oral prednisone low dose (unsure of dosing) Past Medical History: No past medical history on file. Past Surgical History: Past Surgical History: Procedure Laterality Date GASTRIC BYPASS JOINT REPLACEMENT Right Family History: No history of macular degeneration or glaucoma Social History: No tobacco use EXAMINATION: Base Eye Exam Visual Acuity (Snellen - Linear) Right Left Near cc 20/70 20/25 Tonometry (Tonopen, 1:46 PM) Right Left Pressure stp stp Pupils Dark Light Shape React APD Right 4 2 Round Slow Yes Left 4 2 Round Brisk None Visual Benítez Left Right Full Full Extraocular Movement Right Left Full, Ortho Full, Ortho Dilation Both eyes: 1.0% Mydriacyl, 2.5% Leon Synephrine @ 1:46 PM Additional Tests Color Right Left Ishihara Slit Lamp and Fundus Exam External Exam Right Left External Normal Normal Slit Lamp Exam Right Left Lids/Lashes Normal Normal Conjunctiva/Sclera White and quiet White and quiet Cornea 2-3+ PEE 2-3+ PEE Anterior Chamber Deep and quiet Deep and quiet Iris Round and reactive Round and reactive Lens PCIOL PCIOL with PCO Anterior Vitreous Syneresis, Alaniz Ring Syneresis, Alaniz Ring Fundus Exam Right Left Disc Disc fullness, slight hyperemia, mild blurring of optic disc margins, most notable at superioraspect Normal C/D Ratio 0.3 Macula Normal; no hernández red spot Normal Vessels Mild tortuosity Mild tortuosity Periphery Normal; flat and attached, no heme Normal; flat and attached, no heme Labs/Studies/Imaging Performed MRI brain and orbits w/w/o contrast pending MRA head pending MRA neck pending Luis Alberto Anderson MD Resident Physician, PGY3 Department of Ophthalmology 03/22/24 1:21 PM documented in this encounter Nursing Notes * Henrique Diaz RN - 03/25/2024 6:30 PM CDT PAR doc to place signout note when available. documented in this encounter ED Notes * Justino Mcduffie RN - 03/22/2024 8:37 AM CDT Pt arrives to Ed ambulatory c/o neck pain accompanied by vertigo and blurred vision. Pt referred toED for IV steroid tx d/t giant cell arteritis. Triage Assessment (Adult) Row Name 03/22/24 0864 Triage Assessment Airway WDL WDL Respiratory WDL Respiratory WDL WDL Skin Circulation/Temperature WDL Skin Circulation/Temperature WDL WDL Cardiac WDL Cardiac WDL WDL Peripheral/Neurovascular WDL Peripheral Neurovascular WDL WDL Cognitive/Neuro/Behavioral WDL Cognitive/Neuro/Behavioral WDL WDL * Jona Sears MD - 03/22/2024 8:27 AM CDT ED Provider Note [facility] History Chief Complaint Patient presents with Neck Pain HPI Gato Partida is a 78 year old female with a history of polymyalgia rheumatica on prednisone, SVT, hypertension who presents to the emergency department with neck pain. Patient also endorses vertigo and blurred vision. Per chart review, patient had an office visit 03/20/2024 at rheumatology clinic. In that note patient reported that she was experiencing headache, vision changes, and jaw tiredness. According to that note, patient presented to the ED in [place] on 03/15 with stiffness on the right side of her neckthat radiated up to the right side of her head. She also had double vision at that time and difficulty focusing. She was given a dose of morphine and recommended to take 20 mg daily of prednisone for5 days until her rheumatology visit on 03/20. She reported that her symptoms have improved since theED visit. She was initially diagnosed with polymyalgia rheumatica and had severe stiffness in her shoulders and arms and was unable to raise her arms above her head. After taking prednisone her symptoms improved. Manufactured Buildings Repairer recommended that she present to the emergency room for possible IV steroids and a temporal artery biopsy due to concern for giant cell arteritis. Patient notes her right eye vision is worse than the left tenderness in the right temporal area also. Some neck stiffness noted over the last few months. No fevers reported. Patient describes when leaning forward as if she is going to fall some dizziness sensation but no true vertigo with this she had some bilateral rib pain that resolved after few days no shortness of breath no history of DVTs etc. Patient notes generalized weakness in the shoulders consistent with her PMR along with in the legs etc. Recommended come here now per rheumatology for admission for high-dose steroids IV etc. Past Medical History No past medical history on file. Past Surgical History: Procedure Laterality Date GASTRIC BYPASS JOINT REPLACEMENT Right amLODIPine (NORVASC) 10 MG tablet amoxicillin (AMOXIL) 500 MG capsule atorvastatin (LIPITOR) 10 MG tablet D3-50 1.25 MG (82755 UT) capsule FLUoxetine (PROZAC) 40 MG capsule HYDROcodone-acetaminophen (NORCO) 5-325 MG tablet levothyroxine (SYNTHROID/LEVOTHROID) 150 MCG tablet lisinopril (ZESTRIL) 10 MG tablet metoprolol tartrate (LOPRESSOR) 25 MG tablet nitroGLYcerin (NITROSTAT) 0.4 MG sublingual tablet predniSONE (DELTASONE) 1 MG tablet predniSONE (DELTASONE) 5 MG tablet predniSONE (DELTASONE) 5 MG tablet 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 Family History No family history on file. Social History Social History Tobacco Use Smoking status: Never Passive exposure: Past Smokeless tobacco: Never Substance Use Topics Alcohol use: Yes Comment: occasional wine Drug use: Never A medically appropriate review of systems was performed with pertinent positives and negatives noted in the HPI, and all other systems negative. Physical Exam BP: (!) 189/92 Pulse: 73 Temp: 98.1 ??F (36.7 ??C) Resp: 14 SpO2: 96 % Physical Exam Vitals and nursing note reviewed. Constitutional: General: She is in acute distress. Appearance: Normal appearance. She is well-developed. She is not toxic-appearing. Comments: Patient very conversive here with family with and daughter. Does have informationfrom recommendations from ER etc. Patient without fever mildly hypertensive HENT: Head: Normocephalic and atraumatic. Comments: Patient with some tenderness of the right temporal region without palpable ropes Nose: Nose normal. Mouth/Throat: Mouth: Mucous membranes are moist. Pharynx: Oropharynx is clear. Eyes: General: No scleral icterus. Extraocular Movements: Extraocular movements intact. Conjunctiva/sclera: Conjunctivae normal. Pupils: Pupils are equal, round, and reactive to light. Comments: Patient with some slight decreased blurred vision in the right eye compared to the left otherwise no field cuts were noted at all. Neck: Comments: Some neck stiffness noted generally throughout. Is been ongoing for a few months without change Cardiovascular: Rate and Rhythm: Normal rate and regular rhythm. Pulmonary: Effort: Pulmonary effort is normal. No respiratory distress. Breath sounds: No stridor. Abdominal: General: Abdomen is flat. Tenderness: There is no guarding. Musculoskeletal: Cervical back: Normal range of motion. Rigidity present. Right lower leg: Edema present. Left lower leg: Edema present. Skin: General: Skin is warm and dry. Capillary Refill: Capillary refill takes less than 2 seconds. Coloration: Skin is not jaundiced. Findings: No bruising or rash. Neurological: Mental Status: She is alert and oriented to person, place, and time. Mental status is at baseline. Comments: Patient with some generalized weakness noted in the upper and lower extremities etc. No neurological focal findings seen except for some decreased vision in the right eye without field cutsnoted just some increasing blurriness noted Psychiatric: Comments: Slight anxious but otherwise appropriate ED Course, Procedures, & Data Records are in [facility]. Patient seen by rheumatology on the Dr. Roe for polymyalgia rheumatica H24. With this concern of right-sided temporal headache. Recommendations at point are to go to the emergency room. That was 2 days ago now patient presents with family. The ER and IV established labs are drawn. Will send off inflammatory markers etc. I paged rheumatology and talk to neurology also with concerns about imaging possible they recommended if rheumatologyagrees we will get a a head MRI brain and orbits with and without contrast along with an MRA head and neck. Will check other basic labs cardiac eval etc. Discussed with rheumatology also. I consulted ophthalmology who will see the patient also in the meantime I did order the MRI as noted above. I did talk to ophthalmology who did come and see the patient in the ER. They evaluated the patient also we did order the MRI and brain and orbits with and without contrast along with this MRA head and neck with and without contrast ordered. Ophthalmology did evaluate the patient still high concern for GCA. Recommended a gram of Solu-Medrol daily for the next 3 days admitting the patient getting the MRI as noted which had not been done yet. Labs reviewed also. Labs reviewed sed rate was only 4 lactic acid 1.4. Urinalysis does show 24 white cells. Troponin was 12 BNP was 523 TSH within normal limits. Sodium 139 potassium 3.8. Bicarb 23 gap is 11 BUN 19.2 creatinine 0.64. Calcium 9.4. Glucose 88 ALT is 79 the rest LFTs with normal limits. White count 9.8 hemoglobin is 13.5. INR is 0.91. As noted the MRI was pending at this point patient is just going down for this. I talked to medicine had ordered the Solu-Medrol also. Patient received a liter normal saline also here in the ER. Otherwise been stable. As noted will beadmitted to medicine for ongoing evaluation of potential GCA with history of PMR MRI results pending at this point. Procedures EKG Interpretation: Interpreted by Jona Sears MD Time reviewed: 9:20:00 AM Symptoms at time of EKG: Neck pain Rhythm: Normal sinus Rate: 70 bpm [place]: Normal Ectopy: None Conduction: Normal ST Segments/ T Waves: No ST-T wave changes and No acute ischemic changes Q Waves: None Comparison to prior: No old EKG available Clinical Impression: no acute ischemia Results for orders placed or performed during the hospital encounter of 03/22/24 MR Brain and Orbits w/o & w Contrast Status: None (Preliminary result) Impression RESIDENT PRELIMINARY INTERPRETATION Impression: 1. No acute intracranial pathology. 2. Sequela of chronic small vessel ischemic disease. 3. Patent normal appearing major intracranial vasculature without evidence of significant vasculitis. Partially visualized temporal arteries are unremarkable. Ultrasound of the temporal arteries can be considered. MRA Angiogram Head w/o Contrast Status: None Narrative EXAM MRA BRAIN ([place]) W/O CONTRAST 03/22/2024 4:41 PM HISTORY: Headache; r/o Giant cell/temporal arteritis; Age > 50 years; No visual symptoms COMPARISON: None TECHNIQUE: Using a 3D [id number] image acquisition technique, MRA of the major [...] paranasal sinus, orbital, and/or skull base structures. Impression IMPRESSION: No large vessel occlusion, significant major intracranial arterial stenosis, or definite aneurysm. No definite enlarged temporal artery bilaterally. I have personally reviewed the examination and initial interpretation and I agree with the findings. XI BACON MD MRA Angiogram Neck w/o & w Contrast Status: None Narrative EXAM: MRA NECK (CAROTIDS) W/O & W [...] left internal carotid artery measures 5 mm. Impression IMPRESSION: Neck MRA demonstrates patent major cervical vasculature 40% right and 25% left proximal internal carotid artery narrowing. I have personally reviewed the examination and initial interpretation and I agree with the findings. XI BACON MD CTV Head Neck w Contrast Status: None Narrative EXAM: CTV HEAD NECK W CONTRAST 03/22/2024 [...] of the cervical spine, worst at C5-6. Impression Impression: No evidence of intracranial venous sinus thrombosis. I have personally reviewed the examination and initial interpretation and I agree with the findings. XI BACON MD US Lower Extremity Venous Duplex Right Status: None Narrative EXAMINATION: DOPPLER VENOUS ULTRASOUND OF THE RIGHT LOWER EXTREMITY, 03/22/2024 6:05 PM COMPARISON: None. HISTORY: Rule out DVT in swollen right leg TECHNIQUE: Anderson-scale evaluation with compression, spectral flow, and color Doppler assessment of the deep venous system of the right leg from groin to knee, and then at the ankle. Of note, Images are incorrectly labeled as left. FINDINGS: In the right lower extremity, the common femoral, femoral, popliteal and posterior tibial veins demonstrate normal compressibility and blood flow. Patent left common femoral vein Impression IMPRESSION: 1. No evidence of right lower extremity deep venous thrombosis. I have personally reviewed the examination and initial interpretation and I agree with the findings. TAMERA ANTHONY MD [place] Draw Status: None Narrative The following orders were created for panel order [place] Draw. Procedure Abnormality Status --------- ------ Extra Blue Top Tube[[id number]] Final result Extra Red Top Tube[[id number]] Final result Extra Green Top ([employer]...[[id number]] Final result Extra Purple Top Tube[[id number]] Final result Please view results for these tests on the individual orders. Extra Blue Top Tube Status: None Result Value Ref Range Hold Specimen JIC Extra Red Top Tube Status: None Result Value Ref Range Hold Specimen JIC Extra Green Top ([employer] Heparin) Tube Status: None Result Value Ref Range Hold Specimen JIC Extra Purple Top Tube Status: None Result Value Ref Range Hold Specimen JIC Partial thromboplastin time Status: Normal Result Value Ref Range aPTT 33 22 - 38 Seconds INR Status: Normal Result Value Ref Range INR 0.91 0.85 - 1.15 CRP inflammation Status: Normal Result Value Ref Range CRP Inflammation <3.00 <5.00 mg/L Erythrocyte sedimentation rate auto Status: Normal Result Value Ref Range Erythrocyte Sedimentation Rate 4 0 - 30 mm/hr Comprehensive metabolic panel Status: Abnormal Result Value Ref Range Sodium 139 135 - 145 mmol/L Potassium 3.8 3.4 - 5.3 mmol/L Carbon Dioxide (CO2) 23 22 - 29 mmol/L Anion Gap 11 7 - 15 mmol/L Urea Nitrogen 19.2 8.0 - 23.0 mg/dL Creatinine 0.64 0.51 - 0.95 mg/dL GFR Estimate >90 >60 mL/min/1.73m2 Calcium 9.4 8.8 - 10.4 mg/dL Chloride 105 98 - 107 mmol/L Glucose 88 70 - 99 mg/dL Alkaline Phosphatase 121 40 - 150 U/L AST 21 0 - 45 U/L ALT 79 (H) 0 - 50 U/L Protein Total 7.0 6.4 - 8.3 g/dL Albumin 4.4 3.5 - 5.2 g/dL Bilirubin Total 0.3 <=1.2 mg/dL Magnesium Status: Normal Result Value Ref Range Magnesium 1.9 1.7 - 2.3 mg/dL Lactic Acid Whole Blood with 1X Repeat in 2 HR when >2 Status: Normal Result Value Ref Range Lactic Acid, Initial 1.4 0.7 - 2.0 mmol/L Troponin T, High Sensitivity Status: Normal Result Value Ref Range Troponin T, High Sensitivity 12 <=14 ng/L Nt probnp inpatient (BNP) Status: Normal Result Value Ref Range N terminal Pro BNP Inpatient 523 0 - 1,800 pg/mL TSH Status: Normal Result Value Ref Range TSH 2.40 0.30 - 4.20 uIU/mL UA with Microscopic reflex to Culture Status: Abnormal Specimen: Urine, Midstream Result Value Ref Range Color Urine Straw Colorless, Straw, Light Yellow, Yellow Appearance Urine Clear Clear Glucose Urine Negative Negative mg/dL Bilirubin Urine Negative Negative Ketones Urine Negative Negative mg/dL Specific [place] Urine 1.004 1.003 - 1.035 Blood Urine Negative Negative pH Urine 6.0 5.0 - 7.0 Protein Albumin Urine Negative Negative mg/dL Urobilinogen Urine Normal Normal, 2.0 mg/dL Nitrite Urine Negative Negative Leukocyte Esterase Urine Moderate (A) Negative RBC Urine 0 <=2 /HPF WBC Urine 24 (H) <=5 /HPF Squamous Epithelials Urine 1 <=1 /HPF Transitional Epithelials Urine <1 <=1 /HPF Narrative Urine Culture ordered based on laboratory criteria CBC with platelets and differential Status: Abnormal Result Value Ref Range WBC Count 9.8 4.0 - 11.0 10e3/uL RBC Count 4.56 3.80 - 5.20 10e6/uL Hemoglobin 13.5 11.7 - 15.7 g/dL Hematocrit 42.0 35.0 - 47.0 % MCV 92 78 - 100 fL MCH 29.6 26.5 - 33.0 pg MCHC 32.1 31.5 - 36.5 g/dL RDW 15.2 (H) 10.0 - 15.0 % Platelet Count 223 150 - 450 10e3/uL % Neutrophils 77 % % Lymphocytes 13 % % Monocytes 8 % % Eosinophils 2 % % Basophils 0 % % Immature Granulocytes 0 % NRBCs per 100 WBC 0 <1 /100 Absolute Neutrophils 7.5 1.6 - 8.3 10e3/uL Absolute Lymphocytes 1.2 0.8 - 5.3 10e3/uL Absolute Monocytes 0.8 0.0 - 1.3 10e3/uL Absolute Eosinophils 0.2 0.0 - 0.7 10e3/uL Absolute Basophils 0.0 0.0 - 0.2 10e3/uL Absolute Immature Granulocytes 0.0 <=0.4 10e3/uL Absolute NRBCs 0.0 10e3/uL EKG 12-lead, tracing only Status: None (Preliminary result) Result Value Ref Range Systolic Blood Pressure mmHg Diastolic Blood Pressure mmHg Ventricular Rate 70 BPM Atrial Rate 70 BPM NH Interval 130 ms QRS Duration 84 ms QT 394 ms QTc 425 ms P [place] 19 degrees R AXIS 33 degrees T [place] 60 degrees Interpretation ECG Sinus rhythm Normal ECG CBC with platelets differential Status: Abnormal Narrative The following orders were created for panel order CBC with platelets differential. Procedure Abnormality Status --------- ------ CBC with platelets and d...[[id number]] Abnormal Final result Please view results for these tests on the individual orders. Medications lidocaine 1 % 0.1-1 mL (has no administration in time range) lidocaine (LMX4) cream (has no administration in time range) sodium chloride (PF) 0.9% PF flush 3 mL (3 mLs Intracatheter $Given 03/22/24 5203) sodium chloride (PF) 0.9% PF flush 3 mL (has no administration in time range) ondansetron (ZOFRAN) injection 4 mg (has no administration in time range) methylPREDNISolone sodium succinate (solu-MEDROL) 1,000 mg in sodium chloride 0.9 % 283 mL intermittent infusion (1,000 mg Intravenous $New Bag 03/22/24 8222) pantoprazole (PROTONIX) 2 mg/mL suspension 40 mg (has no administration in time range) lidocaine 1 % 0.1-1 mL (has no administration in time range) lidocaine (LMX4) cream (has no administration in time range) sodium chloride (PF) 0.9% PF flush 3 mL (3 mLs Intracatheter $Given 03/22/24 1856) sodium chloride (PF) 0.9% PF flush 3 mL (has no administration in time range) senna-docusate (SENOKOT-S/PERICOLACE) 8.6-50 MG per tablet 1 tablet (has no administration in time range) Or senna-docusate (SENOKOT-S/PERICOLACE) 8.6-50 MG per tablet 2 tablet (has no administration in time range) calcium carbonate (TUMS) chewable tablet 1,000 mg (has no administration in time range) amLODIPine (NORVASC) tablet 10 mg ( Oral Automatically Held 03/25/24 0800) atorvastatin (LIPITOR) tablet 10 mg (has no administration in time range) cholecalciferol (VITAMIN D3) capsule 1,250 mcg (has no administration in time range) FLUoxetine (PROzac) capsule 40 mg (40 mg Oral $Given 03/22/24 1849) levothyroxine (SYNTHROID/LEVOTHROID) tablet 150 mcg (150 mcg Oral Not Given 03/22/24 190) lisinopril (ZESTRIL) tablet 10 mg ( Oral Automatically Held 03/25/241999) metoprolol tartrate (LOPRESSOR) tablet 25 mg ( Oral Automatically Held 03/25/241999) sodium chloride 0.9% BOLUS 1,000 mL (0 mLs Intravenous Stopped 03/22/24 1151) gadobutrol (GADAVIST) injection 6.78 mL (6.7 mLs Intravenous $Given 03/22/24 1530) iopamidol (ISOVUE-370) solution 67 mL (67 mLs Intravenous $Given 03/22/24 180) sodium chloride (PF) 0.9% PF flush 90 mL (90 mLs Intravenous $Given 03/22/241803) Labs Ordered and Resulted from Time of ED Arrival to Time of ED Departure COMPREHENSIVE METABOLIC PANEL - Abnormal Result Value Sodium 139 Potassium 3.8 Carbon Dioxide (CO2) 23 Anion Gap 11 Urea Nitrogen 19.2 Creatinine 0.64 GFR Estimate >90 Calcium 9.4 Chloride 105 Glucose 88 Alkaline Phosphatase 121 AST 21 ALT 79 (*) Protein Total 7.0 Albumin 4.4 Bilirubin Total 0.3 ROUTINE UA WITH MICROSCOPIC REFLEX TO CULTURE - Abnormal Color Urine Straw Appearance Urine Clear Glucose Urine Negative Bilirubin Urine Negative Ketones Urine Negative Specific [place] Urine 1.004 Blood Urine Negative pH Urine 6.0 Protein Albumin Urine Negative Urobilinogen Urine Normal Nitrite Urine Negative Leukocyte Esterase Urine Moderate (*) RBC Urine 0 WBC Urine 24 (*) Squamous Epithelials Urine 1 Transitional Epithelials Urine <1 CBC WITH PLATELETS AND DIFFERENTIAL - Abnormal WBC Count 9.8 RBC Count 4.56 Hemoglobin 13.5 Hematocrit 42.0 MCV 92 MCH 29.6 MCHC 32.1 RDW 15.2 (*) Platelet Count 223 % Neutrophils 77 % Lymphocytes 13 % Monocytes 8 % Eosinophils 2 % Basophils 0 % Immature Granulocytes 0 NRBCs per 100 WBC 0 Absolute Neutrophils 7.5 Absolute Lymphocytes 1.2 Absolute Monocytes 0.8 Absolute Eosinophils 0.2 Absolute Basophils 0.0 Absolute Immature Granulocytes 0.0 Absolute NRBCs 0.0 PARTIAL THROMBOPLASTIN TIME - Normal aPTT 33 INR - Normal INR 0.91 CRP INFLAMMATION - Normal CRP Inflammation <3.00 ERYTHROCYTE SEDIMENTATION RATE AUTO - Normal Erythrocyte Sedimentation Rate 4 MAGNESIUM - Normal Magnesium 1.9 LACTIC ACID WHOLE BLOOD WITH 1X REPEAT IN 2 HR WHEN >2 - Normal Lactic Acid, Initial 1.4 TROPONIN T, HIGH SENSITIVITY - Normal Troponin T, High Sensitivity 12 NT PROBNP INPATIENT - Normal N terminal Pro BNP Inpatient 523 TSH - Normal TSH 2.40 URINE CULTURE CTV Head Neck w Contrast Final Result Impression: No evidence of intracranial venous sinus thrombosis. I have personally reviewed the examination and initial interpretation and I agree with the findings. XI BACON MD US Lower Extremity Venous Duplex Right Final Result IMPRESSION: 1. No evidence of right lower extremity deep venous thrombosis. I have personally reviewed the examination and initial interpretation and I agree with the findings. TAMERA ANTHONY MD MRA Angiogram Neck w/o & w Contrast Final Result IMPRESSION: Neck MRA demonstrates patent major cervical vasculature 40% right and 25% left proximal internal carotid artery narrowing. I have personally reviewed the examination and initial interpretation and I agree with the findings. XI BACON MD MRA Angiogram Head w/o Contrast Final Result IMPRESSION: No large vessel occlusion, significant major intracranial arterial stenosis, or definite aneurysm. No definite enlarged temporal artery bilaterally. I have personally reviewed the examination and initial interpretation and I agree with the findings. XI BACON MD MR Brain and Orbits w/o & w Contrast Preliminary Result RESIDENT PRELIMINARY INTERPRETATION Impression: 1. No acute intracranial pathology. 2. Sequela of chronic small vessel ischemic disease. 3. Patent normal appearing major intracranial vasculature without evidence of significant vasculitis. Partially visualized temporal arteries are unremarkable. Ultrasound of the temporal arteries can be considered. Echo Complete (Results Pending) Critical care was not performed. Medical Decision Making The patient's presentation was of high complexity (an acute health issue posing potential threat tolife or bodily function). The patient's evaluation involved: an assessment requiring an independent historian (see separate area of note for details) review of external note(s) from 3+ sources (see separate area of note for details) review of 3+ test result(s) ordered prior to this encounter (see separate area of note for details) ordering and/or review of 3+ test(s) in this encounter (see separate area of note for details) discussion of management or test interpretation with another health professional (see separate areaof note for details) The patient's management necessitated high risk (a decision regarding hospitalization). Assessment & Plan 78-year-old female history of PMR presents with at least a week of headache some decreased right vision changes right-sided headache some neck stiffness jaw pain with ongoing PMR symptoms. Concern for giant cell arteritis. Patient instructed to come to the ER on showed up to the ER today evaluated neurologically intact otherwise with some tenderness in right temporal area with some just slight blurred vision but no other neurological focal findings cardiac workup otherwise negative labs otherwise stable including sed rate etc. Consultation initially I talked to neurology for consideration of imaging I talked to rheumatology recommended talking to ophthalmology who did see the patient here in the ER recommendations for MRI which was ordered of the brain and orbits along with MRA head and neck were also done. Patient findings are concerning for GCA recommendations for gram of Solu-Medrol which I did order and was administered the patient here in the ER. Will plan to admit to medicine service for ongoing workup of giant cell arteritis potential temporal artery biopsy. MRI was ordered pending at this point. Will be admitted to medicine they will follow-up on these results and further evaluate the patient for other ongoing causes of her symptoms. I have reviewed the nursing notes. I have reviewed the findings, diagnosis, plan and need for follow up with the patient. New Prescriptions No medications on file Final diagnoses: Temporal arteritis (H) PMR (polymyalgia rheumatica) (H24) Decreased vision of right eye Right temporal headache Neck pain Jona Sears MD [facility] EMERGENCY DEPARTMENT 03/22/2024 This note was created at least in part by the use of [employer] voice dictation system. Inadvertent typographical errors may still exist. Jona Sears MD. Patient evaluated in the emergency department during the COVID-19 pandemic period. Careful attention to patients safety was addressed throughout the evaluation. Evaluation and treatment management was initiated with disposition made efficiently and appropriate as possible to minimize any risk of potential exposure to patient during this evaluation. Jona Sears MD 03/22/24 2143 documented in this encounter Miscellaneous Notes * Plan of Care - Ankita Gill OT - 03/26/2024 6:45 PM CDT Occupational Therapy Discharge Summary Reason for therapy discharge: Discharged to home with outpatient therapy. Progress towards therapy goal(s). See goals on Care Plan in [facility] electronic health record for goal details. Goals partially met. Barriers to achieving goals: limited tolerance for therapy. Therapy recommendation(s): Continued therapy is recommended. Rationale/Recommendations: OP PT/OT to progress pt IND/safety andADLs and functional mobility. Recommendation for pt to use FWW at all times at home as pt remains falls risk. * Plan of Care - Ann Aquino RN - 03/26/2024 5:21 PM CDT Pt discharged to: Home Via: Private car Accompanied by: & daughter Belongings: Sent with patient. Teaching: Completed with patient & family. Clinic appointment: Patient will follow-up with primary physician. Rheumatology appointment pending. Patient had elevated HR in 160s while talking with provider about discharge. BP also 166/110. Recheck of patient BP 110/80 & HR 97. Auscultated some irregular heart beats & patient noted to have occasional fluttering of heart, but I have A.Fib. Notified Mikhail Snustad provider about duration of episode. Provider visited patient at bedside & noted regular rhythm upon assessment. No other symptoms noted. Prior to discharge patient reported heartburn or angina. Patient has reported history of angina & takes nitroglycerin. Patient given tums & reported relief. Patient reported another episodeof similar symptoms & notified hospital television rental clerk primary team. Resident visited patient at bedside & assessed. Educated patient on signs & symptoms to look out for & identify to return to hospital. Patient comfortable going home. Patient cleared to discharge home. Reviewed discharge instruction with patient, daughter & . Expressed understanding of prednisone taper schedule. Problem: Adult Inpatient Plan of Care Goal: Plan of Care Review Description: The Plan of Care Review/Shift note should be completed every shift. The Outcome Evaluation is a brief statement about your assessment that the patient is improving, declining, or no change. This information will be displayed automatically on your shift note. 03/26/20241720 by Ann Aquino RN Outcome: Met 03/26/20241720 by Ann Aquino RN Outcome: Progressing Problem: Adult Inpatient Plan of Care Goal: Absence of Hospital-Acquired Illness or Injury 03/26/20241720 by Ann Aquino RN Outcome: Met 03/26/20241720 by Ann Aquino RN Outcome: Progressing Intervention: Identify and Manage Fall Risk Recent Flowsheet Documentation Taken 03/26/2024 1600 by Ann Aquino RN Safety Promotion/Fall Prevention: safety round/check completed room near nurse's station Intervention: Prevent Skin Injury Recent Flowsheet Documentation Taken 03/26/2024 1600 by Ann Aquino RN Body Position: position changed independently Skin Protection: adhesive use limited Intervention: Prevent and Manage VTE (Venous Thromboembolism) Risk Recent Flowsheet Documentation Taken 03/26/2024 1600 by Ann Aquino RN VTE Prevention/Management: SCDs on (sequential compression devices) Intervention: Prevent Infection Recent Flowsheet Documentation Taken 03/26/2024 1600 by Ann Aquino RN Infection Prevention: rest/sleep promoted hand hygiene promoted Problem: Adult Inpatient Plan of Care Goal: Optimal Comfort and Wellbeing 03/26/20241720 by Ann Aquino RN Outcome: Met 03/26/20241720 by Ann Aquino RN Outcome: Progressing Problem: Adult Inpatient Plan of Care Goal: Readiness for Transition of Care 03/26/20241720 by nAn Aquino RN Outcome: Met 03/26/2024 1721 by Ann Aquino RN Outcome: Progressing Problem: Risk for Delirium Goal: Optimal Coping 03/26/2024 172 by Ann Aquino RN Outcome: Met 03/26/2024 172 by Ann Aquino RN Outcome: Progressing Intervention: Optimize Psychosocial Adjustment to Delirium Recent Flowsheet Documentation Taken 03/26/2024 1600 by Ann Aquino RN Supportive Measures: active listening utilized goal-setting facilitated * Plan of Care - Shoshana Jaimes RN - 03/26/2024 2:37 PM CDT Goal Outcome Evaluation: 0700 - 1500 BP (!) 154/78 (BP Location: Right arm) Pulse 71 Temp 98.3 ??F (36.8 ??C) (Oral) Resp 18 Ht 1.524 m (5') Wt 70 kg (154 lb 4.8 oz) SpO2 94% BMI 30.13 kg/m?? Reason for admission: Admitted on 03/22 with unilateral vision loss concern for possible Giant Cell Arteritis. Activity: SBA with walker Pain: Rated head pain a 5/10 this shift, managed with PRN tylenol. Neuro: A&Ox4, R sided weakness and blurred vision in R eye Cardiac: WDL except HTN. Cardiac monitoring in place, NSR Respiratory: WDL, on RA GI/: WDL, last BM 03/24/2024, given PRN senna Diet: Regular Lines: PIV x1 Wounds: Surgical incision on left and right temporal, MANAGER SOLAR/CDI. Hematoma on R temporal. Labs/imaging: Reviewed, see chart. Plan: Possible discharge today. Continue to monitor and follow POC * Plan of Care - Latonya Osei RN - 03/26/2024 4:51 AM CDT Goal Outcome Evaluation: Pt A&O, VSS on RA, afebrile. Denies nausea, vomiting, or SOB. Hematoma on right side of head covered by pressure dressing. Incision MANAGER SOLAR on left side of head. Pain managed with tylenol. Up with SBA. * Brief Op Note - Kristel Simeon MD - 03/25/2024 5:15 PM CDT [facility] Brief Operative Note Pre-operative diagnosis: Sudden visual loss of right eye [H53.131] Post-operative diagnosis Same as pre-operative diagnosis Procedure: Bilateral temporal Artery Biopsy, Bilateral - Head Surgeon: Surgeons and Role: * Richie Hawk DO - Primary * Breann Horn MD - Resident - Assisting * Kristel Simeon MD - Resident - Assisting Anesthesia: General Estimated Blood Loss: 10 mL from 03/25/2024 3:13 PM to 03/25/2024 5:00 PM Drains: None Specimens: ID Type Source Tests Collected by Time Destination 1 : Left Temporal Artery Biopsy Biopsy Artery, Temporal, Left SURGICAL PATHOLOGY EXAM Richie Hawk, DO 03/25/2024 4:29 PM 2 : Right Temporal Artery Biopsy Biopsy Artery, Temporal, Right SURGICAL PATHOLOGY EXAM Richie Hawk, DO 03/25/2024 4:33 PM Findings: None. Complications: None. Implants: * No implants in log * Back to floor Regular diet Pain control Keep dressing in place on R side until tomorrow Rest of cares per primary team Kristel Simeon MD General Surgery, PGY2 * Op Note - Breann Horn MD - 03/25/2024 3:54 PM CDT Operative Note [facility] Pre-operative diagnosis: sudden visual loss of the right eye Post-operative diagnosis Same as pre-operative diagnosis Procedure: Biopsy artery temporal, bilateral Surgeon: Surgeons and Role: Dr. Hawk, Dr. Kristel Simeon, Dr. Breann Horn Anesthesia: general Estimated Blood Loss: 10mL Drains: None Specimens: bilateral temporal arteries Findings: difficult to doppler however bilateral arteries identified and removed Complications: none Implants: * No implants in log * OPERATIVE INDICATIONS: Gtao Partida is an 78Y F with a history of PMR and new right sided vision loss. General surgery was consulted to consider temporal artery biopsy for concern for giant cell arteritis. After understanding the risks and benefits of proceeding with surgery, the patient has an indication for temporal artery biopsy and consented to undergo surgery. Risks explained, which include bleeding, infection, and damage to surrounding nerves. OPERATIVE DETAILS: The patient was brought to the operating room and prepared in a routine fashion. A timeout was performed prior to surgery and documented by the nursing team. The location of patient's right and left temporal artery was confirmed by use of doppler pre-operatively. The patient was induced with general anesthesia. Local anesthetic of 4mL was injected near the operative site, with care taken to not inject into vessels. An incision was made with a 15-blade scalpel. Sharp dissection was performed, and the temporal arteries were identified. Doppler was utilized intra-operatively to confirm positioning of temporal arteries. Once the incision was made, the doppler was still present but very faint. The artery wasdissected free from surrounding tissue. 3-0 silk sutures were tied around both exposed ends of the artery on the right side. The artery had several branches which were clipped distally. The artery was then divided, and the specimen was removed. The left artery was clipped proximally and distally and then divided. Irrigation was used, and complete hemostasis was achieved. Three interrupted sutureswere placed with 4-0 vicryl. Post operatively, a hematoma was present on the right side that had pressure placed over it and remained stable. The left side had some bruising as well. This was monitored and stable. All needle and sponge counts were correct x2 at the end of the procedure. The patient was woken up and taken to the PACU in satisfactory condition. Dr. Hawk was scrubbed in throughout the entirety of the case Breann Horn MD PGY-7 General Surgery Associated attestation - Richie Hawk DO - 03/26/2024 2:02 PM CDT Physician Attestation I was present for the entire procedure between opening and closing. Richie Hawk, Date of Service (when I saw the patient): 03/25/24 * Plan of Care - Shoshana Jaimes, ALLYSON - 03/25/2024 2:54 PM CDT Goal Outcome Evaluation: 0700 - 1500 BP (!) 163/69 (BP Location: Left arm) Pulse 68 Temp 97.7 ??F (36.5 ??C) (Oral) Resp 18 Ht 1.524 m (5') Wt 69.2 kg (152 lb 8 oz) SpO2 95% BMI 29.78 kg/m?? Reason for admission: Admitted on 03/22 with unilateral vision loss concern for possible Giant Cell Arteritis. Activity: Independent Pain: Rated head and neck pain a 5/10 throughout shift, Given PRN tylenol x2 and PRN Robaxin added on. Neuro: A&Ox4, right sided weakness and blurred vision in R) eye. Cardiac: WDL except HTN. Telemetry monitoring in place, NSR. Respiratory: WDL, on RA GI/: WDL, last BM 03/24/2024 Diet: NPO for biopsy Lines: PIV x1 Wounds: No new wounds Labs/imaging: Reviewed, see chart. New changes this shift: Biopsy of the artery was today. Discontinued Rocephin and switched to PO Bactrim. MIVF initiated of LR @100 ml/hr. Continue to monitor and follow POC * Plan of Care - Latonya Osei RN - 03/25/2024 3:46 AM CDT Goal Outcome Evaluation: 4710-2841 Pt A&O, VSS on RA, afebrile. Denies nausea, vomiting, or SOB. Slight headache and no other pain. Numbness on right side, up with Ax1. Denied any pain when urinating. NPO at midnight. * Plan of Care - Diana Beltran M - 03/24/2024 10:32 PM CDT Assumed care from: [[id number]] Vitals: BP (!) 145/63 Pulse 73 Temp 97.6 ??F (36.4 ??C) (Axillary) Resp 18 Ht 1.524 m (5') Wt 68.6 kg (151 lb 4.8 oz) SpO2 97% BMI 29.55 kg/m?? Neuro: A&Ox4 Pain: Pain located mostly in the forehead and neck; rated a 4/10 and managed with oral tylenol. Denied pain or burning sensation with urination. Activity: Uses walker, assist x1 Skin: Clean, dry, intact GI: Last BM 03/24/2024 : Voided 780 mL during this shift. Denies pain or burning with urination. Diet: Regular diet IV: PIV on left and right lower forearm New changes this shift: NPO starting midnight for procedure tomorrow. Goal Outcome Evaluation: Continue with plan of care Associated attestation - Nathaniel Rosenberg RN - 03/24/2024 10:58 PM CDT RN reviewed * Plan of Care - Yue Clark RN - 03/24/2024 4:07 PM CDT Goal Outcome Evaluation: Plan of Care Reviewed With: patient, spouse, child Overall Patient Progress: no changeOverall Patient Progress: no change Pt neuros intact except right side weakness and numbness, and right eye blurred vision. Pt also c/oright side headache. Pt did not urinate today until 1400, 200ml and dark charla. Pt stated she has had burning with urination for the past 3 days and per MD told patient that she has a UTI. Pt bladderscanned for 0. MD paged to consider fluids. Ultrasound done. Plan for OR tomorrow. Pt was NPO overnight for possible procedure today, so did not get fluids overnight and did not eat or drink until 11am today. Will continue with [employer] and notify MD if any other concerns. * Plan of Care - Liliam Garduno RN - 03/24/2024 1:58 AM CDT 3004-1325 BP (!) 154/74 (BP Location: Left arm) Pulse 82 Temp 97.8 ??F (36.6 ??C) (Oral) Resp 18 Ht 1.524 m (5') Wt 68.6 kg (151 lb 4.8 oz) SpO2 98% BMI 29.55 kg/m?? Afebrile, VSS No acute event. Pt slept well between cares. NPO since midnight. NEURO: Alert and oriented x4. RESPIRATORY: Room Air, denies dizziness, and SOB. Lungs sound, clear, equal bilateral. CARDIO: VSS, denies dizziness, and extremity pain. GI/: Denies N/V, BS active, SKIN: Intact. ACTIVITY: Stand by assist. PAIN: Denies pain. DLA: PIV, NS locked. BG: No PLAN: NPO for possible Tremporal arteries biopsy. Continue monitoring. * Italic, from provider's note. * Plan of Care - Nathaniel Rosenberg RN - 03/23/2024 10:49 PM CDT BP (!) 154/74 (BP Location: Left arm) Pulse 82 Temp 97.9 ??F (36.6 ??C) (Oral) Resp 16 Ht 1.524 m (5') Wt 68.6 kg (151 lb 4.8 oz) SpO2 98% BMI 29.55 kg/m?? Pt is A&Ox4. VSS; hypertensive and not within notifying parameters. Denies pain and nausea. 2 RN skin assessment completed. Rating pain 5/10. PIV SL. Plan is for a procedure tomorrow; will be NPOat midnight. Will continue plan of care. * Plan of Care - Shannan Perry RN - 03/23/2024 1:32 PM CDT Goal Outcome Evaluation: Plan of Care Reviewed With: patient A/Ox4, visited by physician specialist who conducted bedside assessment, had echocardiogram done in , had CT chest completed. On regular diet after being NPO for possible Tremporal arteries bx, but postponed until tomorrow, to be NPO after midnight tonight, pt is aware, still c/o of chronic symptoms weak Upper extremities.Rt eye blurred vision, Rt arm aches radiating to back, shoulders, neck and rt side of head, tylenol was given with good result. IV L/R bolus 1000 completed over 2 hours, after orthostatics V/S obtained. Voiding freely, had a small BM today, eating well. 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 BP (!) 148/54 (BP Location: Left arm, Patient Position: Supine, Cuff Size: Adult Regular) Pulse 91 Temp 97.7 ??F (36.5 ??C) (Oral) Resp 18 Ht 1.61 m (5' 3.39) Wt 53.1 kg (117 lb 1.6 oz) SpO2 98% BMI 20.49 kg/m?? * Plan of Care - Sánchez Segal RN - 03/23/2024 7:01 AM CDT BP (!) 153/81 (BP Location: Right arm) Pulse 94 Temp 97.6 ??F (36.4 ??C) (Oral) Resp 20 SpO2 98% Time: 2636-1132 Patient is alert and oriented, SBA, C/o headache and neck area pain, received PRN Tylenol, and it was effective, NPO after midnight, Biopsy today. * Medication Scribe - Admission Medication History - Elidia Beltran - 03/23/2024 6:50 AM CDT Medication Scribe Admission Medication History Admission medication history is complete. The information provided in this note is only as accurateas the sources available at the time of the update. 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 Changes made to [employer] OPER[employer] medication list: Added: Cyanocobalamin 1000 mcg/ml. Deleted: Prednisone 5 mg tabs. Changed: None Allergies reviewed with patient and updates made in EHR: yes Medication History Completed By: Elidia Beltran 03/23/2024 6:50 AM [employer] OPER[employer] Med List Medication Sig Last Dose amLODIPine (NORVASC) 10 MG tablet Take 1 tablet by mouth daily at 2 pm 03/22/2024 at am amoxicillin (AMOXIL) 500 MG capsule TAKE 4 CAPSULES BY MOUTH 1 HOUR BEFORE DENTAL APPOINTMENT FOR 1DOSE at procedure only atorvastatin (LIPITOR) 10 MG tablet Take 10 mg by mouth at bedtime 03/21/2024 at hs D3-50 1.25 MG (39280 UT) capsule Take 1,250 mcg by mouth once a week 03/17/2024 FLUoxetine (PROZAC) 40 MG capsule Take 40 mg by mouth daily 03/21/2024 at hs HYDROcodone-acetaminophen (NORCO) 5-325 MG tablet Take 1 tablet by mouth every 8 hours as needed for pain More than a month levothyroxine (SYNTHROID/LEVOTHROID) 150 MCG tablet Take 150 mcg by mouth daily 03/22/2024 at am lisinopril (ZESTRIL) 10 MG tablet Take 10 mg by mouth 2 times daily 03/22/2024 at am metoprolol tartrate (LOPRESSOR) 25 MG tablet Take 25 mg by mouth 2 times daily 03/22/2024 at am nitroGLYcerin (NITROSTAT) 0.[address] 0.4 mg under the tongue Past Month documented in this encounter Plan of Treatment Upcoming Encounters Date Type Department Care Team (Late st Contact Info) Description 05/20/2024 9:30 AM CDT Virtual Visit [facility] [address] [place] [phone] Zhane Crain MD [address] [place] [address] SorinRichie, [facility] [address] [place] [address] 07/31/2024 2:00 PM [employer] Office Visit [facility] [address] [place] [phone] Christina Roe PA-C [address] [place] [address] Scheduled Referrals Name Type Priority Associated Diagnoses Orde r Schedule Physical Therapy 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 Referral Referral Routine: Next available opening Temporal arteritis (H) PMR (polymyalgia rheumatica) (H24) Expected: 03/26/2024 (Approximate), Expires: 03/26/2025 documented as of this encounter Procedures Procedure Name Priority Date/Time Associated Diagnosis Comments ERYTHROCYTE SEDIMENTATION RATE AUTO Routine 03/26/2024 6:14 AM CDT CRP INFLAMMATION Routine 03/26/2024 6:14 AM CDT BASIC METABOLIC PANEL Routine 03/26/2024 6:14 AM CDT CBC WITH PLATELETS Routine 03/26/2024 6: 14 AM CDT SURGICAL PATHOLOGY EXAM Routine 03/25/20 4:29 PM CDT TEMPORAL ARTERY LIGATN OR BX 03/25/2024 2:53 PM CDT Sudden visual loss of right eye CBC WITH PLATELETS AND DIFFERENTIAL Routine 03/25/2024 11:38 AM CDT CBC WITH PLATELETS & DIFFERENTIAL Routine 03/25/2024 11:38 AM CDT ERYTHROCYTE SEDIMENTATION RATE AUTO Routine 03/25/2024 5:54 AM CDT CRP INFLAMMATION Routine 03/25/2024 5:54 AM CDT BASIC METABOLIC PANEL Routine 03/25/2024 5:54 AM CDT CBC WITH PLATELETS Routine 03/24/2024 5: 30 PM CDT US TEMPORAL ARTERIES DUPLEX Routine 03/24/2024 3:02 PM CDT ERYTHROCYTE SEDIMENTATION RATE AUTO Routine 03/24/2024 5:09 AM CDT CRP INFLAMMATION Routine 03/24/2024 5:09 AM CDT BASIC METABOLIC PANEL Routine 03/24/2024 5:09 AM CDT CBC WITH PLATELETS Routine 03/24/2024 5: 09 AM CDT INTERLEUKIN 6 BLOOD STAT 03/23/2024 1 1:04 AM CDT CTA CHEST WITH CONTRAST STAT 03/23/20 9:01 AM CDT ECHO COMPLETE WITH CONTRAST Routine 03/23/2024 8:14 AM CDT ERYTHROCYTE SEDIMENTATION RATE AUTO STAT 03/23/2024 6:28 AM CDT CRP INFLAMMATION STAT 03/23/2024 6:28 AM CDT BASIC METABOLIC PANEL STAT 03/23/2024 6:28 AM CDT CBC WITH PLATELETS STAT 03/23/2024 6: 28 AM CDT CTV HEAD NECK W CONTRAST STAT 03/22/2024 6:23 PM CDT US LOWER EXTREMITY VENOUS DUPLEX RIGHT STAT 03/22/2024 6:05 PM CDT MRA NECK (CAROTIDS) W/O & W CONTRAST STAT 03/22/2024 4:42 PM CDT MRA BRAIN (PA[place] OF GREGORIO) W/O CONTRAST STAT 03/22/2024 4:41 PM CDT MR BRAIN AND ORBITS W/O & W CONTRAST STAT 03/22/2024 4:41 PM CDT ROUTINE UA WITH MICROSCOPIC REFLEX TO CULTURE STAT 03/22/2024 9:44 AM CDT URINE CULTURE STAT 03/22/2024 9:44 AM CDT LACTIC ACID WHOLE BLOOD WITH 1X REPEAT IN 2 HR WHEN >2 STAT 03/22/2024 9:27 AM CDT ERYTHROCYTE SEDIMENTATION RATE AUTO STAT 03/22/2024 9:27 AM CDT EKG 12-LEAD, TRACING ONLY STAT 03/22/2024 9:16 AM CDT EXTRA TUBE STAT 03/22/2024 8:45 AM CDT EXTRA PURPLE TOP TUBE STAT 03/22/2024 8:45 AM CDT EXTRA GREEN TOP (LITHIUM HEPARIN) TUBE STAT 03/22/2024 8:45 AM CDT EXTRA RED TOP TUBE STAT 03/22/2024 8: 45 AM CDT EXTRA BLUE TOP TUBE STAT 03/22/2024 8 :45 AM CDT CBC WITH PLATELETS AND DIFFERENTIAL STAT 03/22/2024 8:45 AM CDT TROPONIN T, HIGH SENSITIVITY STAT 03/22/2024 8:45 AM CDT CBC WITH PLATELETS & DIFFERENTIAL STAT 03/22/2024 8:45 AM CDT TSH STAT 03/22/2024 8:45 AM CDT INR STAT 03/22/2024 8:45 AM CDT PARTIAL THROMBOPLASTIN TIME STAT 03/22/2024 8:45 AM CDT NT PROBNP INPATIENT STAT 03/22/2024 8 :45 AM CDT MAGNESIUM STAT 03/22/2024 8:45 AM CDT CRP INFLAMMATION STAT 03/22/2024 8:45 AM CDT COMPREHENSIVE METABOLIC PANEL STAT 03/22/2024 8:45 AM CDT documented in this encounter Results * CRP inflammation (03/26/2024 6:14 AM CDT) CRP Inflammation <3.00 <5.00 mg/L 03/26/20 9:04 AM CDT [facility] Blood STRUCTURE OF LEFT HAND / Unknown Venipuncture / Unknown 03/26/2024 6:14 AM CDT 03/26/2024 6:23 AM CDT Kristel Simeon MD LAB - BLOOD ORDERABL ES [facility] [place] [facility] [address], [address] [place] [phone], [facility] * Erythrocyte sedimentation rate auto (03/26/2024 6:14 AM CDT) Pathologist [facility] Erythrocyte Sedimentation Rate 6 0 - 30 mm/hr 03/26/2024 7:08 AM CDT [facility] Blood STRUCTURE OF LEFT HAND / Unknown Venipuncture / Unknown 03/26/2024 6:14 AM CDT 03/26/2024 6:23 AM CDT Kristel Simeon MD LAB - BLOOD ORDERABL ES [facility] [place] [address] [facility] [address] [facility] [place] [phone], [facility] * (ABNORMAL) Basic metabolic panel (03/26/2024 6:14 AM CDT) Sodium 138 135 - 145 mmol/L 03/26/2024 [...] AM CDT [facility] Comment:eGFR calculated usin g 2020 CKD-EPI equation. Calcium 8.3(L) 8.8 - [...] AM CDT 03/26/2024 6:23 AM CDT Kristel Simeon MD LAB - BLOOD ORDERABL ES [facility] [place] [facility] [address], [address] [phone] * (ABNORMAL) CBC with platelets (03/26/2024 6:14 AM CDT) WBC Count 13.4(H) 4.0 - 11.0 10e3/uL 03/26/2024 6:36 AM CDT [facility] RBC Count 4.28 3.80 - 5.20 10e6/uL 03/26/2024 6:36 AM CDT [facility] Hemoglobin 12.9 11.7 - 15.7 g/dL 03/26/2024 6:36 AM CDT [facility] Hematocrit 39.2 35.0 - 47.0 % 03/26/2024 6:36 AM CDT [facility] MCV 92 78 - 100 fL 03/26/2024 6:36 AM CDT [facility] MCH 30.1 26.5 - 33.0 pg 03/26/2024 6:36 AM CDT [facility] MCHC 32.9 31.5 - 36.5 g/dL 03/26/2024 6:36 AM CDT [facility] RDW 15.4(H) 10.0 - 15.0 % 03/26/2024 6:36 AM CDT [facility] Platelet Count 196 150 - 450 10e3/uL 03/26/2024 6:36 AM CDT [facility] Blood STRUCTURE OF LEFT HAND / Unknown Venipuncture / Unknown 03/26/2024 6:14 AM CDT 03/26/2024 6:23 AM CDT Kristel Simeon MD LAB - BLOOD ORDERABL ES [facility] [place] [facility] [address], [address] [phone] * Surgical Pathology Exam (03/25/2024 4:29 PM CDT) Case Report Surgical Pathology Report ? Case: [id number] ? Authorizing Provider: ??Richie Dominguez ? Collected: [...] of giant cell arteritis. 03/26/2024 9:50 AM [facility] Clinical Information The patient is a 78 year old female with a history of polymyalgia rheumatica and acute ischemic optic neuropathy right eye. She undergoes bilateral temporal artery biopsy to evaluate for giant cell arteritis. 03/26/2024 9:50 AM [facility] Gross Description A(1). Artery, Temporal, [...] for sectioning at histology. 03/26/2024 9:50 AM [facility] Microscopic Description A. The tissue consists [...] identified within the vessel. 03/26/2024 9:50 AM [facility] Performing Labs The technical component of this testing was completed at [facility]. Stain controls for all stains resulted within this report have been reviewed and show appropriate reactivity. 03/26/2024 9:50 AM [facility] Case Images 03/26/2024 9:50 AM [facility] Biopsy STRUCTURE OF SUPERFICIAL TEMPORAL ARTERY / Unknown 03/25/2024 4:29 PM CDT 03/25/2024 5:08 PM CDT Specimen from unspecified body site obtained by biopsy (specimen) STRUCTURE OF SUPERFICIAL TEMPORAL ARTERY / Unknown 03/25/2024 4:33 PM CDT 03/25/2024 5:08 PM CDT Richie Nikos Carine DO LAB - [facility] Specialty Lab [address], [address] [place] [phone] [place] [facility] [address] [facility] [place] [phone] * (ABNORMAL) CBC with platelets and differential (03/25/2024 11:38 AM CDT) WBC Count 11.3(H) 4.0 - 11.0 10e3/uL [...] LAB - BLO OD ORDERABLES [facility] [place] [address], [address] [place] [phone] * CRP inflammation (03/25/2024 5:54 AM CDT) CRP Inflammation <3.00 <5.00 mg/L 03/25/20 24 6:47 AM CDT [facility] Blood STRUCTURE OF LEFT UPPER LIMB / Unknown Venipuncture / Unknown 03/25/2024 5:54 AM CDT 03/25/2024 6:14 AM CDT Kristel Simeon MD LAB - BLOOD ORDERABL ES Performing Organization Address City/[facility]/ZIP Co de Phone Number [facility] [place] [address], [address] * Erythrocyte sedimentation rate auto (03/25/2024 5:54 AM CDT) Erythrocyte Sedimentation Rate 8 0 - 30 mm/hr 03/25/2024 7:01 AM CDT [facility] Blood STRUCTURE OF LEFT UPPER LIMB / Unknown Venipuncture / Unknown 03/25/2024 5:54 AM CDT 03/25/2024 6:14 AM CDT Kristel Simeon MD LAB - BLOOD ORDERABL ES Performing Organization Address City/[facility] Co de Phone Number [facility] [place] [address] [facility], [address] * (ABNORMAL) Basic metabolic panel (03/25/2024 5:54 AM CDT) Sodium 141 135 - 145 mmol/L 03/25/2024 6:47 AM CDT [facility] Potassium 3.8 3.4 - 5.3 mmol/L 03/25/2024 6:47 AM CDT [facility] Chloride 109(H) 98 - 107 mmol/L 03/25/2024 6:47 AM CDT [facility] Carbon Dioxide (CO2) 22 22 - 29 mmol/L 03/25/2024 6:47 AM CDT [facility] Anion Gap 10 7 - 15 mmol/L 03/25/2024 6:47 AM CDT [facility] Urea Nitrogen 16.6 8.0 - 23.0 mg/dL 03/25/2024 6:47 AM CDT [facility] Creatinine 0.67 0.51 - 0.95 mg/dL 03/25/2024 6:47 AM CDT [facility] GFR Estimate 90 >60 mL/min/1.7 3m2 03/25/2024 6:47 AM CDT [facility] Comment:eGFR calculated us2020 CKD-EPI equation. Calcium 8.4(L) 8.8 - 10.4 mg/dL 03/25/2024 6:47 AM CDT [facility] Comment:Reference intervals for this test were updated on 03/11/2024 to reflect our healthy population more accurately. There may be differences in the flagging of prior results with similar values performed with this method. Those prior results can be interpreted in the context of the updated reference intervals. Glucose 162(H) 70 - 99 mg/dL 03/25/2024 6:47 AM CDT [facility] Blood STRUCTURE OF LEFT UPPER LIMB / Unknown Venipuncture / Unknown 03/25/2024 5:54 AM CDT 03/25/2024 6:14 AM CDT Verona Snyder MD LAB - BLOOD ORDERABL ES [facility] [place] [facility] [address] [facility], [address] [place] [phone] * (ABNORMAL) CBC with platelets (03/24/2024 5:30 PM CDT) WBC Count 17.2(H) 4.0 - 11.0 10e3/uL 03/24/2024 6:13 PM CDT [facility] RBC Count 4.49 3.80 - 5.20 10e6/uL 03/24/2024 6:13 PM CDT [facility] Hemoglobin 13.5 11.7 - 15.7 g/dL 03/24/2024 6:13 PM CDT [facility] Hematocrit 41.4 35.0 - 47.0 % 03/24/2024 6:13 PM CDT [facility] MCV 92 78 - 100 fL 03/24/2024 6:13 PM CDT [facility] MCH 30.1 26.5 - 33.0 pg 03/24/2024 6:13 PM CDT [facility] MCHC 32.6 31.5 - 36.5 g/dL 03/24/2024 6:13 PM CDT [facility] RDW 15.4(H) 10.0 - 15.0 % 03/24/2024 6:13 PM CDT [facility] Platelet Count 227 150 - 450 10e3/uL 03/24/2024 6:13 PM CDT [facility] Blood STRUCTURE OF LEFT HAND / Unknown Venipuncture / Unknown 03/24/2024 5:30 PM CDT 03/24/2024 5:36 PM CDT Verona Snyder MD LAB - BLOOD ORDERABL ES [facility] [address], [address] [place] [phone] * US Temporal Arteries Duplex (03/24/2024 3:02 [...] mm ? PARIETAL BRANCH: 0.29 mm MICHAEL DUENAS MD Narrative 03/24/2024 3:06 PM CDT ULTRASOUND TEMPORAL ARTERIES DUPLEX 03/24/2024 3:02 PM CLINICAL HISTORY: bilateral temporal artery ??for R vision loss COMPARISONS: None available. ORDERING PROVIDER: KRISTEL SIMEON TECHNIQUE: Grayscale, color Doppler, Doppler waveform evaluation [...] cm/s, 0.2 mm IMT Procedure Note Michael Duenas MD - 03/24/2024 ULTRASOUND TEMPORAL ARTERIES DUPLEX 03/24/2024 3:02 PM CLINICAL HISTORY: bilateral temporal artery for R vision loss COMPARISONS: None available. ORDERING PROVIDER: KRISTEL SIMEON TECHNIQUE: Grayscale, color Doppler, Doppler waveform evaluation [...] 0.34 mm PARIETAL BRANCH: 0.29 mm MICHAEL DUENAS MD Kristel Simeon MD [facility] US ORDERABLES * CRP inflammation (03/24/2024 5:09 AM CDT) CRP Inflammation <3.00 <5.00 mg/L 03/24/20 5:48 AM CDT [facility] Blood STRUCTURE OF LEFT UPPER LIMB / Unknown Venipuncture / Unknown 03/24/2024 5:09 AM CDT 03/24/2024 5:15 AM CDT Kristel Simeon MD LAB - BLOOD ORDERABL ES Performing Organization Address City/[facility]/ZIP Co de Phone Number [facility] Lab [address] [facility], [address] * Erythrocyte sedimentation rate auto (03/24/2024 5:09 AM CDT) Erythrocyte Sedimentation Rate 6 0 - 30 mm/hr 03/24/2024 6:23 AM CDT [facility] Blood STRUCTURE OF LEFT UPPER LIMB / Unknown Venipuncture / Unknown 03/24/2024 5:09 AM CDT 03/24/2024 5:15 AM CDT Kristel Simeon MD LAB - BLOOD ORDERABL ES Performing Organization Address City/State/[facility] Co de Phone Number [facility] [address] [facility], [address] * (ABNORMAL) Basic metabolic panel (03/24/2024 5:09 AM CDT) Sodium 142 135 - 145 mmol/L 03/24/2024 5:48 AM CDT [facility] Potassium 3.5 3.4 - 5.3 mmol/L 03/24/2024 5:48 AM CDT [facility] Chloride 110(H) 98 - 107 mmol/L 03/24/2024 5:48 AM CDT [facility] Carbon Dioxide (CO2) 22 22 - 29 mmol/L 03/24/2024 5:48 AM CDT [facility] Anion Gap 10 7 - 15 mmol/L 03/24/2024 5:48 AM CDT [facility] Urea Nitrogen 16.1 8.0 - 23.0 mg/dL 03/24/2024 5:48 AM CDT [facility] Creatinine 0.61 0.51 - 0.95 mg/dL 03/24/2024 5:48 AM CDT [facility] GFR Estimate >90 >60 mL/min/1.7 3m2 03/24/2024 5:48 AM CDT [facility] Comment:eGFR calculated usin 2020 CKD-EPI equation. Calcium 8.6(L) 8.8 - 10.4 mg/dL 03/24/2024 5:48 AM CDT [facility] Comment:Reference intervals for this test were updated on 03/11/2024 to reflect our healthy population more accurately. There may be differences in the flagging of prior results with similar values performed with this method. Those prior results can be interpreted in the context of the updated reference intervals. Glucose 172(H) 70 - 99 mg/dL 03/24/2024 5:48 AM CDT [facility] Blood STRUCTURE OF LEFT UPPER LIMB / Unknown Venipuncture / Unknown 03/24/2024 5:09 AM CDT 03/24/2024 5:15 AM CDT Margarita Sawyer MD LAB - BLOOD ORDERABL ES [facility] [address] [facility], [address] [place] [address] * (ABNORMAL) CBC with platelets (03/24/2024 5:09 AM CDT) WBC Count 12.0(H) 4.0 - 11.0 10e3/uL 03/24/2024 5:22 AM CDT [facility] RBC Count 4.05 3.80 - 5.20 10e6/uL 03/24/2024 5:22 AM CDT [facility] Hemoglobin 12.3 11.7 - 15.7 g/dL 03/24/2024 5:22 AM CDT [facility] Hematocrit 37.2 35.0 - 47.0 % 03/24/2024 5:22 AM CDT [facility] MCV 92 78 - 100 fL 03/24/2024 5:22 AM CDT [facility] MCH 30.4 26.5 - 33.0 pg 03/24/2024 5:22 AM CDT [facility] MCHC 33.1 31.5 - 36.5 g/dL 03/24/2024 5:22 AM CDT [facility] RDW 15.2(H) 10.0 - 15.0 % 03/24/2024 5:22 AM CDT [facility] Platelet Count 184 150 - 450 10e3/uL 03/24/2024 5:22 AM CDT [facility] Blood STRUCTURE OF LEFT UPPER LIMB / Unknown Venipuncture / Unknown 03/24/2024 5:09 AM CDT 03/24/2024 5:15 AM CDT Margarita Sawyer MD LAB - BLOOD ORDERABL ES [facility] [place] [address] [facility], [address] * Interleukin 6 Blood (03/23/2024 11:04 AM CDT) Interleukin 6 Blood <0.70 <3.01 pg/mL [facility] 03/24/2024 2:03 PM CDT [facility] Blood STRUCTURE OF LEFT UPPER LIMB / Unknown Venipuncture / Unknown 03/23/2024 11:04 AM CDT 03/23/2024 11:14 AM CDT Narrative [facility] - 03/24/2024 2:03 PM CDT [...] patient management.

Assayed at [facility], [address] [facility] [place], [address] [place] [address], [place] [address] Margarita Sawyer MD LAB - BLOOD ORDERABL ES [facility] [address] [place] [address] [address] * CTA Chest with Contrast (03/23/2024 9:01 [...] with the findings. CORINNA BERG MD Margarita Sawyer MD IMG CT ORDERABLES * ECHO COMPLETE WITH CONTRAST (03/23/2024 8:14 AM CDT) LVEF 60-65% CARDIOLOGY RESULTS Anatomical Region Laterality Modality Echocardiography 03/23/2024 7:53 AM CDT Narrative 03/23/2024 10:36 AM T [id number]^DIGNA^MARGARITA [facility] [address] [place] [id number] Name: GATO PARTIDA : 1945 Study Date: 03/23/2024 07:53 AM Age: 78 yrs Gender: Female Patient Location: [facility] Reason For Study: Syncope Ordering Physician: MARGARITA SAWYER Performed By: Priscila Mann RDCS BSA: 1.6 m2 Height: 60 in Weight: 149 lb BP: 94/48 mmHg Procedure Complete Portable Echo Adult. Contrast Optison. Echocardiogram with two- dimensional, color and spectral Doppler performed. Optison ([facility] #[id number]) given intravenously. Patient was given 5 ml [...] Doppler Measurements & Calculations MV E max charla: 73.4 cm/sec MV A max charla: 118.4 cm/sec MV E/A: 0.62 MV dec time: 0.16 sec Ao V2 max: 161.2 cm/sec Ao max P.4 mmHg E/E' av.4 Lateral E/e': 9.5 Medial E/e': 11.2 RV S Charla: 14.7 cm/sec Report approved by: Angela Hernandez 03/23/2024 10:36 AM Procedure Note Malaika Dobbins MD - 03/23/2024 [id number]^DIGNA^MARGARITA [facility] [address] [place] [id number] Name: GATO PARTIDA : 1945 Study Date: 03/23/2024 07:53 AM Age: 78 yrs Gender: Female Patient Location: [facility] Reason For Study: Syncope Ordering Physician: MARGARITA SAWYER Performed By: Priscila Mann RDCS BSA: 1.6 m2 Height: 60 in Weight: 149 lb BP: 94/48 mmHg Procedure Complete Portable Echo Adult. Contrast Optison. Echocardiogram with two- dimensional, color and spectral Doppler performed. Optison ([facility]#[id number]) given intravenously. Patient was given 5 ml [...] Doppler Measurements & Calculations MV E max charla: 73.4 cm/sec MV A max charla: 118.4 cm/sec MV E/A: 0.62 MV dec time: 0.16 sec Ao V2 max: 161.2 cm/sec Ao max P.4 mmHg E/E' av.4 Lateral E/e': 9.5 Medial E/e': 11.2 RV S Charla: 14.7 cm/sec Report approved by: Angela Hernandez 03/23/2024 10:36 AM Margarita Sawyer MD CV ECHO ORDERABLES * CRP inflammation (03/23/2024 6:28 AM CDT) CRP Inflammation <3.00 <5.00 mg/L 03/23/20 8:07 AM CDT [facility] Blood STRUCTURE OF RIGHT UPPER LIMB / Unknown Venipuncture / Unknown 03/23/2024 6:28 AM CDT 03/23/2024 7:35 AM CDT Kristel Simeon MD LAB - BLOOD ORDERABL ES [facility] [place] [facility] [address] [facility], [address] [place] [address] * Erythrocyte sedimentation rate auto (03/23/2024 6:28 AM CDT) Pathologist [facility] Erythrocyte Sedimentation Rate 10 0 - 30 mm/hr 03/23/2024 8:10 AM CDT [facility] Blood STRUCTURE OF RIGHT UPPER LIMB / Unknown Venipuncture / Unknown 03/23/2024 6:28 AM CDT 03/23/2024 7:21 AM CDT Kristel Simeon MD LAB - BLOOD ORDERABL ES [facility] [place] [address] [facility], [address] [phone] * CBC with platelets (03/23/2024 6:28 AM CDT) Pathologist [facility] WBC Count 7.2 4.0 - 11.0 10e3/uL 03/23/2024 7:39 AM CDT [facility] RBC Count 4.42 3.80 - 5.20 10e6/uL 03/23/2024 7:39 AM CDT [facility] Hemoglobin 13.2 11.7 - 15.7 g/dL 03/23/2024 7:39 AM CDT [facility] Hematocrit 40.6 35.0 - 47.0 % 03/23/2024 7:39 AM CDT [facility] MCV 92 78 - 100 fL 03/23/2024 7:39 AM CDT [facility] MCH 29.9 26.5 - 33.0 pg 03/23/2024 7:39 AM CDT [facility] MCHC 32.5 31.5 - 36.5 g/dL 03/23/2024 7:39 AM CDT [facility] RDW 15.0 10.0 - 15.0 % 03/23/2024 7:39 AM CDT [facility] Platelet Count 203 150 - 450 10e3/uL 03/23/2024 7:39 AM CDT [facility] Blood STRUCTURE OF RIGHT UPPER LIMB / Unknown Venipuncture / Unknown 03/23/2024 6:28 AM CDT 03/23/2024 7:23 AM CDT Margarita Sawyer MD LAB - BLOOD ORDERABL ES [facility] [address] [facility], [address] [phone] * (ABNORMAL) Basic metabolic panel (03/23/2024 6:28 AM CDT) Sodium 141 135 - 145 mmol/L 03/23/2024 8:14 AM CDT [facility] Potassium 3.4 3.4 - 5.3 mmol/L 03/23/2024 8:14 AM CDT [facility] Chloride 108(H) 98 - 107 mmol/L 03/23/2024 8:14 AM CDT [facility] Carbon Dioxide (CO2) 20(L) 22 - 29 mmol/L 03/23/2024 8:14 AM CDT [facility] Anion Gap 13 7 - 15 mmol/L 03/23/2024 8:14 AM CDT [facility] Urea Nitrogen 14.1 8.0 - 23.0 mg/dL 03/23/2024 8:14 AM CDT [facility] Creatinine 0.59 0.51 - 0.95 mg/dL 03/23/2024 8:14 AM CDT [facility] GFR Estimate >90 >60 mL/min/1.7 3m2 03/23/2024 8:14 AM CDT [facility] Comment:eGFR calculated usin g 2020 CKD-EPI equation. Calcium 8.7(L) 8.8 - 10.4 mg/dL 03/23/2024 8:14 AM CDT [facility] Comment:Reference intervals for this test were updated on 03/11/2024 to reflect our healthy population more accurately. There may be differences in the flagging of prior results with similar values performed with this method. Those prior results can be interpreted in the context of the updated reference intervals. Glucose 150(H) 70 - 99 mg/dL 03/23/2024 8:14 AM CDT [facility] Blood STRUCTURE OF RIGHT UPPER LIMB / Unknown Venipuncture / Unknown 03/23/2024 6:28 AM CDT 03/23/2024 7:35 AM CDT Margarita Sawyer MD LAB - BLOOD ORDERABL ES [facility] [place] [address] [facility], Room [address] [phone] * CTV Head Neck w Contrast (03/22/2024 [...] with the findings. XI BACON MD Margarita Sawyer MD IMG CT ORDERABLES * US Lower Extremity Venous Duplex Right (03/22/2024 6:05 PM CDT) Anatomical Region Laterality Modality Lower Extremity Ultrasound Impressions 03/22/2024 6:32 PM CDT IMPRESSION: 1. ??No evidence of right lower extremity deep venous thrombosis. I have personally reviewed the examination and initial interpretation and I agree with the findings. TAMERA ANTHONY MD Narrative 03/22/2024 6:32 PM CDT EXAMINATION: DOPPLER VENOUS ULTRASOUND OF THE RIGHT LOWER EXTREMITY, 03/22/2024 6:05 PM COMPARISON: None. HISTORY: Rule out DVT in swollen right leg TECHNIQUE: ??Anderson-scale evaluation with compression, spectral flow, and color Doppler assessment of the deep venous system of the right leg from groin to knee, and then at the ankle. Of note, Images are incorrectly labeled as left. FINDINGS: In the right lower extremity, the common femoral, femoral, popliteal and posterior tibial veins demonstrate normal compressibility and blood flow. Patent left common femoral vein Procedure Note Tamera Anthony MD - 03/22/2024 EXAMINATION: DOPPLER VENOUS ULTRASOUND OF THE RIGHT LOWER EXTREMITY, 03/22/2024 6:05 PM COMPARISON: None. HISTORY: Rule out DVT in swollen right leg TECHNIQUE: Anderson-scale evaluation with compression, spectral flow, and color Doppler assessment of the deep venous system of the right leg from groin to knee, and then at the ankle. Of note, Images are incorrectly labeled as left. FINDINGS: In the right lower extremity, the common femoral, femoral, popliteal and posterior tibial veins demonstrate normal compressibility and blood flow. Patent left common femoral vein IMPRESSION: 1. No evidence of right lower extremity deep venous thrombosis. I have personally reviewed the examination and initial interpretation and I agree with the findings. TAMERA ANTHONY MD Margarita Sawyer MD IMG US ORDERABLES * MRA Angiogram Neck w/o & [...] 03/22/2024 8:38 PM CDT EXAM MRA BRAIN ([place]) W/O CONTRAST 03/22/2024 4:41 PM HISTORY: Headache; r/o Giant cell/temporal arteritis; Age > 50 years; No visual symptoms COMPARISON: ??None TECHNIQUE: Using a 3D wvas-eu-hizadm image acquisition technique, MRA of the major [...] Bacon MD - 03/22/2024 EXAM MRA BRAIN ([place]) W/O CONTRAST 03/22/2024 4:41 PM HISTORY: Headache; r/o Giant cell/temporal arteritis; Age > 50 years; No visual symptoms COMPARISON: None TECHNIQUE: Using a 3D ofoj-jo-wmpjfb image acquisition technique, MRA of the major [...] findings. XI BACON MD Jona Sears MD [facility] MRI ORDERABLES * MR Brain and Orbits [...] findings. XI BACON MD Jona Sears MD G MRI ORDERABLES * (ABNORMAL) Urine Culture (03/22/2024 9:44 AM [...] - MICRO GENERAL ORDERABLES [facility] Inf. Diseases Diag. Lab [address] [facility], [address] [place] [address], [facility] * (ABNORMAL) UA with Microscopic reflex to [...] 03/22/2024 10:28 AM CDT [facility] Specific [place] Urine 1.004 1.003 - 1.035 03/22/2024 10:28 [...] LAB - URINE ORDERAB LES [facility] Core Lab [address], [address] [place] [address], [place] * Lactic Acid Whole Blood with 1X Repeat in 2 HR when >2 (03/22/2024 9:27 AM CDT) Pathologist [facility] Lactic Acid, Initial 1.4 0.7 - 2.0 mmol/L 03/22/2024 9:42 AM CDT [facility] Blood BLOOD SPECIMEN / Unknown Venipuncture / Unknown 03/22/2024 9:27 AM CDT 03/22/2024 9:40 AM CDT Jona Sears MD LAB - BLOOD ORDERAB LES LABORATORY [facility] [place] [facility] Lab [address] [facility], [address] * Erythrocyte sedimentation rate auto (03/22/2024 9:27 AM CDT) [facility] Erythrocyte Sedimentation Rate 4 0 - 30 mm/hr 03/22/2024 10:11 AM CDT [facility] Blood BLOOD SPECIMEN / Unknown Venipuncture / Unknown 03/22/2024 9:27 AM CDT 03/22/2024 9:41 AM CDT Jona Sears MD LAB - BLOOD ORDERAB LES LABORATORY [facility] [place] [facility] Lab [address] [facility], [address] [phone] [place] [address] * EKG 12-lead, tracing only (03/22/2024 9:16 AM CDT) Pathologist [facility] Systolic Blood Pressure mmHg RADIOLOGY RESULTS Diastolic Blood Pressure mmHg RADIOLOGY RESULTS Ventricular Rate 70 BPM RAD IOLOGY RESULTS Atrial Rate 70 BPM RADIOLOG Y RESULTS NH Interval 130 ms RADIOLOG Y RESULTS QRS Duration 84 ms RADIOLO GY RESULTS QT 394 ms RADIOLOGY RESULTS QTc 425 ms RADIOLOGY RESULTS P [place] 19 degrees RADIOLOGY RESULTS R AXIS 33 degrees RADIOLOGY RESULTS T [place] 60 degrees RADIOLOGY RESULTS Interpretation ECG Sinus rhythm Normal ECG Unconfirmed report - interpretation of this ECG is computer generated - see medical record for final interpretation Confirmed by - EMERGENCY ROOM, PHYSICIAN ([id number]), magazine editor DANIA SIMEON ([id number]) on 03/24/2024 6:54:51 AM RADIOLOGY RESULTS 03/22/2024 9:16 AM CDT 03/24/2024 6:54 AM CDT Jona Sears MD ECG ORDERABLES RADIOLOGY RESULTS * (ABNORMAL) CBC with platelets and differential (03/22/2024 8:45 AM CDT) WBC Count 9.8 4.0 - 11.0 10e3/uL 03/22/2024 9:38 AM CDT [facility] RBC Count 4.56 3.80 - 5.20 10e6/uL 03/22/2024 9:38 AM CDT [facility] Hemoglobin 13.5 11.7 - 15.7 g/dL 03/22/2024 9:38 AM CDT [facility] Hematocrit 42.0 35.0 - 47.0 % 03/22/2024 9:38 AM CDT [facility] MCV 92 78 - 100 fL 03/22/2024 9:38 AM CDT [facility] MCH 29.6 26.5 - 33.0 pg 03/22/2024 9:38 AM CDT [facility] MCHC 32.1 31.5 - 36.5 g/dL 03/22/2024 9:38 AM CDT [facility] RDW 15.2(H) 10.0 - 15.0 % 03/22/2024 9:38 AM CDT [facility] Platelet Count 223 150 - 450 10e3/uL 03/22/2024 9:38 AM CDT [facility] % Neutrophils 77 % 03/22/2024 9:38 AM CDT [facility] % Lymphocytes 13 % 03/22/2024 9:38 AM CDT [facility] % Monocytes 8 % 03/22/2024 9:38 AM CDT [facility] % Eosinophils 2 % 03/22/2024 9:38 AM CDT [facility] % Basophils 0 % 03/22/2024 9:38 AM CDT [facility] % Immature Granulocytes 0 % 03/22/2024 9:38 AM CDT [facility] NRBCs per 100 WBC 0 <1 /100 024 9:38 AM CDT [facility] Absolute Neutrophils 7.5 1.6 - 8.3 10e3/uL 03/22/2024 9:38 AM CDT [facility] Absolute Lymphocytes 1.2 0.8 - 5.3 10e3/uL 03/22/2024 9:38 AM CDT [facility] Absolute Monocytes 0.8 0.0 - 1.3 10e3/uL 03/22/2024 9:38 AM CDT [facility] Absolute Eosinophils 0.2 0.0 - 0.7 10e3/uL 03/22/2024 9:38 AM CDT [facility] Absolute Basophils 0.0 0.0 - 0.2 10e3/uL 03/22/2024 9:38 AM CDT [facility] Absolute Immature Granulocytes 0.0 <=0.4 10e3/uL 03/22/2024 9:38 AM CDT [facility] Absolute NRBCs 0.0 10e3/uL 03/22/2024 9:38 AM CDT [facility] Blood BLOOD SPECIMEN / Unknown Venipuncture / Unknown 03/22/2024 8:45 AM CDT 03/22/2024 9:24 AM CDT Jona Sears MD LAB - BLOOD ORDERAB LES [facility] [place] [facility] Lab [address] [facility], [address] [phone] * TSH (03/22/2024 8:45 AM CDT) TSH 2.40 0.30 - 4.20 uIU/mL 03/22/2024 10:19 AM CDT [facility] Blood BLOOD SPECIMEN / Unknown Venipuncture / Unknown 03/22/2024 8:45 AM CDT 03/22/2024 9:23 AM CDT Jona Sears MD LAB - BLOOD ORDERAB LES [facility] [place] [facility] Lab [address] [facility], [address] [place], [place] [phone] * Nt probnp inpatient (BNP) (03/22/2024 8:45 AM CDT) [facility] N terminal Pro BNP Inpatient 523 0 [...] LAB - BLOOD ORDERAB LES [facility] Core Lab [address] [facility], [address] [place], [place] [phone] * Troponin T, High Sensitivity (03/22/2024 8:45 AM CDT) [facility] Troponin T, High Sensitivity 12 <=14 ng/L [...] - BLOOD ORDERAB LES Performing Organization Address City/[facility]/ZIP Co de Phone Number [facility] [place] [facility] Lab [address] [facility], [address] * Magnesium (03/22/2024 8:45 AM CDT) Magnesium 1.9 1.7 - 2.3 mg/dL 03/22/2024 10:19 AM CDT [facility] Blood BLOOD SPECIMEN / Unknown Venipuncture / Unknown 03/22/2024 8:45 AM CDT 03/22/2024 9:23 AM CDT Jona Sears MD LAB - BLOOD ORDERAB LES Performing Organization Address City/[facility] de Phone Number [facility] [place] [facility] Lab [address] [facility], Room [address] [place] [address] * (ABNORMAL) Comprehensive metabolic panel (03/22/2024 8:45 [...] LAB - BLOOD ORDERAB LES [facility] [address] [facility], [address] [place] [address] * CRP inflammation (03/22/2024 8:45 AM CDT) CRP Inflammation <3.00 <5.00 mg/L 03/22/20 10:19 AM CDT [facility] Blood BLOOD SPECIMEN / Unknown Venipuncture / Unknown 03/22/2024 8:45 AM CDT 03/22/2024 9:23 AM CDT Jona Sears MD LAB - BLOOD ORDERAB LES [facility] Lab [address] [facility], [address] * INR (03/22/2024 8:45 AM CDT) INR 0.91 0.85 - 1.15 03/22/2024 9:50 AM CDT [facility] Blood BLOOD SPECIMEN / Unknown Venipuncture / Unknown 03/22/2024 8:45 AM CDT 03/22/2024 9:24 AM CDT Jona Sears MD LAB - BLOOD ORDERAB LES [facility] [place] [facility] Lab [address] [facility], [address] * Partial thromboplastin time (03/22/2024 8:45 AM CDT) aPTT 33 22 - 38 Seconds 03/22/2024 9:50 AM CDT [facility] Blood BLOOD SPECIMEN / Unknown Venipuncture / Unknown 03/22/2024 8:45 AM CDT 03/22/2024 9:24 AM CDT Jona Sears MD LAB - BLOOD ORDERAB LES [facility] [place] [facility] [address] [facility], [address] * Extra Purple Top Tube (03/22/2024 8:45 AM CDT) Hold Specimen JIC 03/22/2024 10:32 AM CDT [facility] Blood BLOOD SPECIMEN / Unknown Venipuncture / Unknown 03/22/2024 8:45 AM CDT 03/22/2024 9:24 AM CDT Ramya Berry DO LAB - BLOOD ORDERABL ES Performing Organization Address City/[facility]/ZIP Co de Phone Number U LABORATORY [facility] [place] [facility] Lab [address] [facility], [address], [place] [address] * Extra Green Top ([employer] Heparin) Tube (03/22/2024 8:45 AM CDT) Hold Specimen [facility] 03/22/2024 10:32 AM CDT [facility] Blood BLOOD SPECIMEN / Unknown Venipuncture / Unknown 03/22/2024 8:45 AM CDT 03/22/2024 9:23 AM CDT Ramya Berry DO LAB - BLOOD ORDERABL ES Performing Organization Address City/[facility]/ZIP Co de Phone Number U [facility] [place] [facility] [address] [facility], [address] [phone] * Extra Red Top Tube (03/22/2024 8:45 AM CDT) Hold Specimen [facility] 03/22/2024 10:46 AM CDT [facility] Blood BLOOD SPECIMEN / Unknown Venipuncture / Unknown 03/22/2024 8:45 AM CDT 03/22/2024 9:34 AM CDT Ramya Berry DO LAB - BLOOD ORDERABL ES U LABORATORY [facility] [place] [facility] Lab 500 [facility], [address] [phone] * Extra Blue Top Tube (03/22/2024 8:45 AM CDT) Hold Specimen [facility] 03/22/2024 10:32 AM CDT [facility] Blood BLOOD SPECIMEN / Unknown Venipuncture / Unknown 03/22/2024 8:45 AM CDT 03/22/2024 9:24 AM CDT Ramya Berry DO LAB - BLOOD ORDERABL ES [facility] Lab [address] [facility], [address] [place] [phone], [facility] documented in this encounter Visit Diagnoses Diagnosis Urinary tract infection without hematuria, site unspecified- Primary Temporal arteritis Giant cell arteritis PMR (polymyalgia rheumatica) (H24) Polymyalgia rheumatica Decreased vision of right eye Right temporal headache Headache Neck pain Cervicalgia Temporal arteritis Giant cell arteritis Neck pain Cervicalgia PMR (polymyalgia rheumatica) (H24) Polymyalgia rheumatica Right temporal headache Headache Decreased vision of right eye documented in this encounter Administered Medications Inactive Administered Medications - up to 3 most recent administrations Medication Order MAR Action Action Date Dose Rate Site acetaminophen (TYLENOL) tablet 650 mg 650 mg, Oral, EVERY 4 HOURS PRN, mild pain, Starting on 03/22/24 at 2337, Maximum acetaminophen dose from all sources = 75 mg/kg/day not to exceed 4 grams/day. $Given 03/26/2024 8:26 AM CDT 650 mg $Given 03/26/2024 1:29 AM CDT 650 mg $Given 03/25/2024 12:06 PM CDT 650 mg amLODIPine (NORVASC) tablet 5 mg 5 mg, Oral, DAILY, First dose (after last modification) on 03/23/24 at 0100 $Given 03/26/2024 8:14 AM CDT 5 mg $Given 03/25/2024 8:24 AM CDT 5 mg $Given 03/24/2024 8:37 AM CDT 5 mg atorvastatin (LIPITOR) tablet 10 mg 10 mg, Oral, AT BEDTIME, First dose on 03/22/24 at 2200 $Given 03/25/2024 10:19 PM CDT 10 mg $Given 03/24/2024 9:45 PM CDT 10 mg $Given 03/23/2024 9:02 PM CDT 10 mg calcium carbonate (TUMS) chewable tablet 1,000 mg 1,000 mg, Oral, 4 TIMES DAILY PRN, heartburn, Starting on 03/22/24 at 1736 $Given 03/26/2024 5:40 PM CDT 1,000 mg cefTRIAXone (ROCEPHIN) 2 g vial to attach to NS 100 ml bag for ADULTS or NS 50 ml bag for PEDS Routine, 2 g, Intravenous, EVERY 24 HOURS, First dose (after last modification) on 03/24/24 at 1700, Do not administer with lactated ringers or other calcium containing IV fluids. If patient has these running flush line with NS before and after and hold calcium containing IV fluid during administration., Indications: Urinary Tract Infection $New Bag 03/24/2024 5:25 PM CDT 2 g enoxaparin ANTICOAGULANT (LOVENOX) injection 40 mg 40 mg, Subcutaneous, PRE-OP/PRE-PROCEDURE, Starting on Sun03/25/24 at 1306, For 1 dose, IF patient to receive a Nerve Block, verify order with Fish Hatchery Supervisor BEFORE administering. IMPORTANT: IF Patient ONLY receiving a TAP Block, Nursing does NOT need to verify order with Anesthesia, and can proceed with medication administration., Pre-procedure $Given 03/25/2024 1:14 PM CDT 40 mg FLUoxetine (PROzac) capsule 40 mg 40 mg, Oral, DAILY, First dose on 03/22/24 at 1800 $Given 03/26/2024 8:15 AM CDT 40 mg $Given 03/25/2024 8:24 AM CDT 40 mg $Given 03/24/2024 8:37 AM CDT 40 mg gadobutrol (GADAVIST) injection 6.78 mL 6.78 mL (0.1 mL/kg ? 67.8 kg), Intravenous, ONCE, On 03/22/24 at 1530, For 1 dose $Given 03/22/2024 3:30 PM CDT 6.7 mLs iopamidol (ISOVUE-370) solution 67 mL 67 mL, Intravenous, ONCE, On 03/22/24 at 1755, For 1 dose $Given 03/22/2024 6:04 PM CDT 67 mLs iopamidol (ISOVUE-370) solution 90 mL 90 mL, Intravenous, ONCE, On 03/23/24 at 0800, For 1 dose $Given 03/23/2024 8:43 AM CDT 90 mLs lactated ringers BOLUS 1,000 mL Intravenous, 1,000 mL, ONCE, at 500 mL/hr, Administer over 2 Hours, On Sun03/23/24 at 1205, For 1 dose $New Bag 03/23/2024 1:06 PM CDT 1,000 mLs 500 mL/hr lactated ringers BOLUS 500 mL Intravenous, 500 mL, ONCE, On 03/24/24 at 1630, For 1 dose $New Bag 03/24/2024 5:11 PM CDT 500 mLs lactated ringers infusion at 100 mL/hr, Intravenous, CONTINUOUS, Starting on Sun03/25/24 at 1000, Until Sun03/25/24 at 1955 $New Bag 03/25/2024 3:20 PM CDT $New Bag 03/25/2024 10:08 AM CDT 100 mL/hr levothyroxine (SYNTHROID/LEVOTHROID) tablet 150 mcg 150 mcg, Oral, EVERY MORNING BEFORE BREAKFAST, First dose on 03/22/24 at 1800, Separate oral administration of iron- or calcium-containing products and levothyroxine by at least 4 hours. $Given 03/26/2024 4:33 AM CDT 150 mcg $Given 03/25/2024 4:43 AM CDT 150 mcg $Given 03/24/2024 6:02 AM CDT 150 mcg lidocaine (LMX4) cream Topical, EVERY 1 HOUR PRN, pain, with VAD insertion, Starting on 03/22/24 at 1736, Apply at least 30 minutes prior to VAD insertion in divided doses as needed for size of site for insertion. MAX Dose: 2.5 g (?? of 5 g tube) Do NOT give if patient has a history of allergy to any local anesthetic or any colt product. Do NOT use both lidocaine intradermal/subcutaneous injection and the lidocaine cream on the same site. lidocaine 1 % 0.1-1 mL 0.1-1 mL, Other, EVERY 1 HOUR PRN, mild pain with VAD insertion, Starting on 03/22/24 at 1736, MAX dose 1 mL subcutaneous OR intradermal along the side of the vein in divided doses as needed for VAD insertion. Do NOT give if patient has a history of allergy to any local anesthetic or any colt product. Do NOT use both lidocaine intradermal/subcutaneous injection and the lidocaine cream on the same site. lisinopril (ZESTRIL) tablet 10 mg 10 mg, Oral, 2 TIMES DAILY, First dose on Sun03/22/24 at 2000 $Given 03/26/2024 8:14 AM CDT 10 mg $Given 03/25/2024 7:34 PM CDT 10 mg $Given 03/25/2024 8:24 AM CDT 10 mg methocarbamol (ROBAXIN) tablet 500 mg 500 mg, Oral, 4 TIMES DAILY PRN, muscle spasms, Starting on Sun03/25/24 at 1212 $Given 03/26/2024 4:34 PM CDT 500 mg $Given 03/26/2024 1:27 AM CDT 500 mg $Given 03/25/2024 6:55 PM CDT 500 mg methylPREDNISolone sodium succinate (solu-MEDROL) 1,000 mg in sodium chloride 0.9 % 283 mL intermittent infusion 1,000 mg, Intravenous, Administer over 60 Minutes, at 283 mL/hr, EVERY 24 HOURS, First dose (after last modification) on Sun03/22/24 at 1615, For 3 days $New Bag 03/24/2024 5:28 PM CDT 1,000 mg 283 mL/hr $New Bag 03/23/2024 5:59 PM CDT 1,000 mg 283 mL/hr $New Bag 03/22/2024 4:55 PM CDT 1,000 mg 283 mL/hr ondansetron (ZOFRAN) injection 4 mg 4 mg, Intravenous, EVERY 30 MIN PRN, nausea, vomiting, Administer over 2-5 Minutes, Starting on Sun03/22/24 at 0902, For 3 doses, May repeat in 30 minutes as needed, up to 3 doses. $Given 03/25/2024 4:43 PM CDT 4 mg ondansetron (ZOFRAN) injection 4 mg 4 mg, Intravenous, EVERY 30 MIN PRN, nausea, Administer over 2-5 Minutes, Starting on Sun03/25/24 at 1732, For 2 doses, This is Step 1 of nausea and vomiting management. If nausea/vomiting not resolved in 15 minutes, then go to Step 2 dexamethasone (DECADRON) IV. MAX total dose = 8 mg, including OR dosing., PACU $Given 03/25/2024 5:32 PM CDT 4 mg pantoprazole (PROTONIX) EC tablet 40 mg 40 mg, Oral, EVERY MORNING BEFORE BREAKFAST, First dose on Sun03/26/24 at 0730, DO NOT CRUSH. $Given 03/26/2024 8:13 AM CDT 40 mg pantoprazole (PROTONIX) IV push injection 40 mg 40 mg, Intravenous, DAILY WITH BREAKFAST, First dose on Sun03/23/24 at 0800 $Given 03/25/2024 8:24 AM CDT 40 mg $Given 03/24/2024 8:37 AM CDT 40 mg $Given 03/23/2024 10:00 AM CDT 40 mg perflutren diluted 1mL to 2mL with saline (OPTISON) diluted injection 9 mL 9 mL, Intravenous, ONCE, On Sun03/23/24 at 0810, For 1 dose $Given 03/23/2024 8:13 AM CDT 5 mLs predniSONE (DELTASONE) tablet 60 mg 60 mg, Oral, DAILY, First dose (after last modification) on Sun03/25/24 at 0800 $Given 03/26/2024 8:14 AM CDT 60 mg $Given 03/25/2024 8:26 AM CDT 60 mg prochlorperazine (COMPAZINE) injection 5 mg 5 mg, Intravenous, EVERY 6 HOURS PRN, nausea, vomiting, Administer over 1-2 Minutes, Starting on Sun03/25/24 at 1732, This is Step 3 of the nausea and vomiting protocol. If nausea/vomitting not resolved in 15-30 minutes, notify Provider., PACU $Given 03/25/2024 5:47 PM CDT 5 mg senna-docusate (SENOKOT-S/PERICOLACE) 8.6-50 MG per tablet 1 tablet 1 tablet, Oral, 2 TIMES DAILY PRN, constipation, Starting on Sun03/22/24 at 1736, If no bowel movement in 24 hours, increase to 2 tablets by mouth. IF more than 1 constipation PRN medication is ordered, administer step-garnica as indicated, moving to the next step ONLY if prior step ineffective. Step 1: senna-docusate (SENOKOT-S; PERICOLACE) OR bisacodyl (DULCOLAX) EC tablet Step 2: polyethylene glycol (MIRALAX/GLYCOLAX) Step 3: bisacodyl (DULCOLAX) suppository Step 4: enema Hold for loose stools. $Given 03/26/2024 8:26 AM CDT 1 table t senna-docusate (SENOKOT-S/PERICOLACE) 8.6-50 MG per tablet 2 tablet 2 tablet, Oral, 2 TIMES DAILY PRN, constipation, Starting on 03/22/24 at 1736, IF more than 1 constipation PRN medication is ordered, administer step-garnica as indicated, moving to the next step ONLY if prior step ineffective. Step 1: senna-docusate (SENOKOT-S; PERICOLACE) OR bisacodyl (DULCOLAX) EC tablet Step 2: polyethylene glycol (MIRALAX/GLYCOLAX) Step 3: bisacodyl (DULCOLAX) suppository Step 4: enema Hold for loose stools. sodium chloride (PF) 0.9% PF flush 3 mL 3 mL, Intracatheter, EVERY 8 HOURS, First dose on 03/22/24 at 0905, to lock peripheral IV dormant line $Given 03/23/2024 12:08 AM CDT 3 mLs $Given 03/22/2024 4:58 PM CDT 3 mLs $Given 03/22/2024 9:24 AM CDT 3 mLs sodium chloride (PF) 0.9% PF flush 3 mL 3 mL, Intracatheter, EVERY 8 HOURS, First dose on 03/22/24 at 1740, to lock peripheral IV dormant line $Given 03/26/2024 8:46 AM CDT 3 mLs $Given 03/25/2024 8:25 AM CDT 3 mLs $Given 03/25/2024 4:43 AM CDT 3 mLs sodium chloride (PF) 0.9% PF flush 3 mL 3 mL, Intracatheter, EVERY 1 MIN PRN, line flush, other, to ensure patency or to lock dormant line, Starting on 03/22/24 at 1736 sodium chloride (PF) 0.9% PF flush 3 mL 3 mL, Intracatheter, EVERY 8 HOURS, First dose on 03/25/24 at 1900, to lock peripheral IV dormant line $Given 03/26/2024 4:33 AM CDT 3 mLs $Given 03/25/2024 7:36 PM CDT 3 mLs sodium chloride (PF) 0.9% PF flush 90 mL 90 mL, Intravenous, ONCE, On 03/22/24 at 1755, For 1 dose $Given 03/22/2024 6:04 PM CDT 90 mLs sodium chloride (PF) 0.9% PF flush 90 mL 90 mL, Intravenous, ONCE, On 03/23/24 at 0800, For 1 dose $Given 03/23/2024 8:44 AM CDT 90 mLs sodium chloride 0.9% BOLUS 1,000 mL Intravenous, 1,000 mL, ONCE, at 1,000 mL/hr, Administer over 1 Hours, On 03/22/24 at 0905, For 1 dose $New Bag 03/22/2024 9:24 AM CDT 1,000 mLs 1000 mL/hr sulfamethoxazole-trimethoprim (BACTRIM DS) 800-160 MG per tablet 1 tablet Routine, 1 tablet, Oral, THREE TIMES WEEKLY (Once per day on Sunday), First dose on Sun03/24/24 at 1530, Indications: prophylaxis $Given 03/24/2024 5:10 PM CDT 1 tablet sulfamethoxazole-trimethoprim (BACTRIM DS) 800-160 MG per tablet 1 tablet Routine, 1 tablet, Oral, 2 TIMES DAILY, First dose on Sun03/25/24 at 1000, For 4 days, Indications: Urinary Tract Infection, And PCP prophylaxis $Given 03/26/2024 8:13 AM CDT 1 tablet $Given 03/25/2024 7:35 PM CDT 1 tablet $Given 03/25/2024 10:08 AM CDT 1 tablet sulfamethoxazole-trimethoprim (BACTRIM DS) 800-160 MG per tablet 1 tablet Routine, 1 tablet, Oral, THREE TIMES WEEKLY (Once per day on Sunday), First dose on Sun03/31/24 at 0900, Indications: prophylaxis documented in this encounter Active and Recently Administered Medications Times are shown in CDT. Scheduled Medication Order 03/24/2024 03/25/2024 03/26/2024 amLODIPine (NORVASC) tablet 5 mg 5 mg, Oral, DAILY, First dose (after last modification) on 03/23/24 at 0100 0837 ($Given - Provider: Yue Clark RN) 0824 ($Given - Provider: Shoshana Jaimes, ALLYSON)1250 (Auto Hold - Provider: Orders Generic Provider - Reason: Transfer to a procedural area)1834 (Unhold - Provider: Orders Generic Provider) 0814 ($Given - Provider: Shoshana Jaimes, ALLYSON) atorvastatin (LIPITOR) tablet 10 mg 10 mg, Oral, AT BEDTIME, First dose on Sun03/22/24 at 2200 2145 ($Given - Provider: Diana Beltran) 1250 (Auto Hold - Provider: Orders Generic Provider - Reason: Transfer to a procedural area)1834 (Unhold - Provider: Orders Generic Provider)2219 ($Given - Provider: Latonya Osei RN) ceFAZolin Sodium (ANCEF) injection 2 g (CANCELED) Routine, 2 g, Intravenous, SEE ADMIN INSTRUCTIONS, Starting on Sun03/25/24 at 1306, Intra-Op Dose.??Give every 4 hours while patient in surgery, starting 4 hours after pre-op dose., Indications: Perioperative Pharmacoprophylaxis, Pre-procedure 1525 ($Given - Provider: Saeed Yuen, ALLYSON) cefTRIAXone (ROCEPHIN) 2 g vial to attach to NS 100 ml bag for ADULTS or NS 50 ml bag for PEDS (CANCELED) Routine, 2 g, Intravenous, EVERY 24 HOURS, First dose (after last modification) on Sun03/24/24 at 1700, Do not administer with lactated ringers or other calcium containing IV fluids. If patient has these running flush line with NS before and after and hold calcium containing IV fluid during administration., Indications: Urinary Tract Infection 1725 ($New Bag - Provider: Nathaniel Rosenberg, [place]YSON) cholecalciferol (VITAMIN D3) capsule 1,250 mcg 1,250 mcg, Oral, WEEKLY, First dose on Sun03/24/24 at 0800, Note: 1250 mcg = 50,000 units 0800 (Canceled Entry - Provider: Orders Generic Provider - Comment: Automatically canceled at discontinue of medication order) 1250 (Auto Hold - Provider: Orders Generic Provider - Reason: Transfer to a procedural area)1834 (Unhold - Provider: Orders Generic Provider) enoxaparin ANTICOAGULANT (LOVENOX) injection 40 mg (COMPLETED) 40 mg, Subcutaneous, PRE-OP/PRE-PROCEDURE, Starting on Sun03/25/24 at 1306, For 1 dose, IF patient to receive a Nerve Block, verify order with Fish Hatchery Supervisor BEFORE administering. IMPORTANT: IF Patient ONLY receiving a TAP Block, Nursing does NOT need to verify order with Anesthesia, and can proceed with medication administration., Pre-procedure 1314 ($Given - Provider: Mayra Liz RN) FLUoxetine (PROzac) capsule 40 mg 40 mg, Oral, DAILY, First dose on 03/22/24 at 1800 0837 ($Given - Provider: Yue Clark, ALLYSON) 0824 ($Given - Provider: Shoshana Jaimes, [place]YSON)1250 (Auto Hold - Provider: Orders Generic Provider - Reason: Transfer to a procedural area)1834 (Unhold - Provider: Orders Generic Provider) 0815 ($Given - Provider: Shoshana Jaimes, [place]) lactated ringers BOLUS 500 mL (COMPLETED) Intravenous, 500 mL, ONCE, On Sun03/24/24 at 1630, For 1 dose 1711 ($New Bag - Provider: Nathaniel Rosenberg RN) levothyroxine (SYNTHROID/LEVOTHROID) tablet 150 mcg 150 mcg, Oral, EVERY MORNING BEFORE BREAKFAST, First dose on Sun03/22/24 at 1800, Separate oral administration of iron- or calcium-containing products and levothyroxine by at least 4 hours. 0602 ($Given - Provider: Liliam Garduno RN) 0443 ($Given - Provider: Latonya Osei RN)1250 (Auto Hold - Provider: Orders Generic Provider - Reason: Transfer to a procedural area)1834 (Unhold - Provider: Orders Generic Provider) 0433 ($Given - Provider: Latonya Osei, [place]ON) lisinopril (ZESTRIL) tablet 10 mg 10 mg, Oral, 2 TIMES DAILY, First dose on Sun03/22/24 at 2000 0837 ($Given - Provider: Yue Clark, ALLYSON)1941 ($Given - Provider: Nathaniel Rosenberg, ALLYSON) 0824 ($Given - Provider: Shoshana Jaimes RN)1250 (Auto Hold - Provider: Orders Generic Provider - Reason: Transfer to a procedural area)1834 (Unhold - Provider: Orders Generic Provider)1934 ($Given - Provider: Latonya Osei, [place]YSON) 0814 ($Given - Provider: Shohsana Jaimes, ALLYSON)1999 (Canceled Entry - Provider: Orders Generic Provider - Comment: Automatically canceled at discontinue of medication order) methylPREDNISolone sodium succinate (solu-MEDROL) 1,000 mg in sodium chloride 0.9 % 283 mL intermittent infusion (COMPLETED) 1,000 mg, Intravenous, Administer over 60 Minutes, at 283 mL/hr, EVERY 24 HOURS, First dose (after last modification) on Sun03/22/24 at 1615, For 3 days 1728 ($New Bag - Provider: Nathaniel Rosenberg RN) metoprolol tartrate (LOPRESSOR) tablet 25 mg 25 mg, Oral, 2 TIMES DAILY, First dose on Sun03/22/24 at 2000, Tablets can be crushed and given via enteral route. 0800 (Automatically Held)1999 (Automatically Held) 0800 (Automatically Held)1999 (Automatically Held) 0800 (Automatically Held)1416 (Unheld by provider - Provider: Corinna Eller MD)1999 (Canceled Entry - Provider: Orders Generic Provider - Comment: Automatically canceled at discontinue of medication order) pantoprazole (PROTONIX) EC tablet 40 mg 40 mg, Oral, EVERY MORNING BEFORE BREAKFAST, First dose on Sun03/26/24 at 0730, DO NOT CRUSH. 1250 (Auto Hold - Provider: Orders Generic Provider - Reason: Transfer to a procedural area)1834 (Unhold - Provider: Orders Generic Provider) 0813 ($Given - Provider: Shoshana Jaimes RN) pantoprazole (PROTONIX) IV push injection 40 mg (CANCELED) 40 mg, Intravenous, DAILY WITH BREAKFAST, First dose on Sun03/23/24 at 0800 0837 ($Given - Provider: Yue Clark, ALLYSON) 0824 ($Given - Provider: Shoshana Jaimes, [place]) predniSONE (DELTASONE) tablet 60 mg 60 mg, Oral, DAILY, First dose (after last modification) on Sun03/25/24 at 0800 0826 ($Given - Provider: Shoshana Jaimes RN)1250 (Auto Hold - Provider: Orders Generic Provider - Reason: Transfer to a procedural area)1834 (Unhold - Provider: Orders Generic Provider) 0814 ($Given - Provider: Shoshana Jaimes RN) sodium chloride (PF) 0.9% PF flush 3 mL 3 mL, Intracatheter, EVERY 8 HOURS, First dose on Sun03/22/24 at 1740, to lock peripheral IV dormant line 0602 ($Given - Provider: Liliam Garduno RN)1725 ($Given - Provider: Nathaniel Rosenberg RN) 0443 ($Given - Provider: Latonya Osei RN)0825 ($Given - Provider: Shoshana Jaimes RN)0940 (Canceled Entry - Provider: Shoshana Jaimes RN)1250 (Auto Hold - Provider: Orders Generic Provider - Reason: Transfer to a procedural area)1740 (Automatically Held - Provider: Orders Generic Provider)1834 (Unhold - Provider: Orders Generic Provider) 0057 (Not Given - Provider: Latonya Osei RN - Reason: Patient sleeping)0846 ($Given - Provider: Shoshana Jaimes RN)1740 (Canceled Entry - Provider: Orders Generic Provider - Comment: Automatically canceled at discontinue of medication order) sodium chloride (PF) 0.9% PF flush 3 mL 3 mL, Intracatheter, EVERY 8 HOURS, First dose on Sun03/25/24 at 1900, to lock peripheral IV dormant line 1936 ($Given - Provider: Latonya Osei RN) 0433 ($Given - Provider: Latonya Osei RN)1118 (Canceled Entry - Provider: Shoshana Jaimes RN - Comment: flushed is AM, see MAR)1900 (Canceled Entry - Provider: Orders Generic Provider - Comment: Automatically canceled at discontinue of medication order) sulfamethoxazole-trimet hoprim (BACTRIM DS) 800-160 MG per tablet 1 tablet (CANCELED) Routine, 1 tablet, Oral, THREE TIMES WEEKLY (Once per day on Sunday), First dose on Sun03/24/24 at 1530, Indications: prophylaxis 1710 ($Given - Provider: Nathaniel Rosenberg RN) sulfamethoxazole-trimet hoprim (BACTRIM DS) 800-160 MG per tablet 1 tablet Routine, 1 tablet, Oral, 2 TIMES DAILY, First dose on Sun03/25/24 at 1000, For 4 days, Indications: Urinary Tract Infection, And PCP prophylaxis 1008 ($Given - Provider: Gayle Berry RN)1250 (Auto Hold - Provider: Orders Generic Provider - Reason: Transfer to a procedural area)1834 (Unhold - Provider: Orders Generic Provider)1935 ($Given - Provider: Latonya Osei RN) 0813 ($Given - Provider: Shoshana Jaimes, [place]YSON)2000 (Canceled Entry - Provider: Orders Generic Provider - Comment: Automatically canceled at discontinue of medication order) sulfamethoxazole-trimet hoprim (BACTRIM DS) 800-160 MG per tablet 1 tablet Routine, 1 tablet, Oral, THREE TIMES WEEKLY (Once per day on Sunday), First dose on Sun03/31/24 at 0900, Indications: prophylaxis Continuous Medication Order 03/24/2024 03/25/2024 03/26/2024 lactated ringers infusion (CANCELED) at 100 mL/hr, Intravenous, CONTINUOUS, Starting on Sun03/25/24 at 1000, Until Sun03/25/24 at 1955 1008 ($New Bag - Provider: Gayle Berry RN)1519 (Paused - Provider: Saeed Yuen RN - Comment: Switch to gravity)1520 ($New Bag - Provider: Saeed Yuen RN)1657 (Anesthesia Volume Adjustment - Provider: Saeed Yuen RN) PRN Medication Order 03/24/2024 03/25/2024 03/26/2024 acetaminophen (TYLENOL) tablet 650 mg 650 mg, Oral, EVERY 4 HOURS PRN, mild pain, Starting on 03/22/24 at 2337, Maximum acetaminophen dose from all sources = 75 mg/kg/day not to exceed 4 grams/day. 1059 ($Given - Provider: Yue Clark RN)2145 ($Given - Provider: Diana Beltran) 0824 ($Given - Provider: Shoshana Jaimes, ALYLSON)1206 ($Given - Provider: Gayle A Jamal, RN)1250 (Auto Hold - Provider: Orders Generic Provider - Reason: Transfer to a procedural area)1834 (Unhold - Provider: Orders Generic Provider) 0129 ($Given - Provider: Christina Velásquez, ALLYSON)0826 ($Given - Provider: Shoshana Jaimes, [place]YSON) calcium carbonate (TUMS) chewable tablet 1,000 mg 1,000 mg, Oral, 4 TIMES DAILY PRN, heartburn, Starting on 03/22/24 at 1736 1250 (Auto Hold - Provider: Orders Generic Provider - Reason: Transfer to a procedural area)1834 (Unhold - Provider: Orders Generic Provider) 1740 ($Given - Provider: Rosalia Corona RN) lidocaine (LMX4) cream Topical, EVERY 1 HOUR PRN, pain, with VAD insertion, Starting on 03/22/24 at 1736, Apply at least 30 minutes prior to VAD insertion in divided doses as needed for size of site for insertion. MAX Dose: 2.5 g (?? of 5 g tube) Do NOT give if patient has a history of allergy to any local anesthetic or any colt product. Do NOT use both lidocaine intradermal/subcutaneous injection and the lidocaine cream on the same site. 1250 (Auto Hold - Provider: Orders Generic Provider - Reason: Transfer to a procedural area)1834 (Unhold - Provider: Orders Generic Provider) lidocaine (LMX4) cream Topical, EVERY 1 HOUR PRN, pain, with VAD insertion, Starting on 03/25/24 at 1843, Apply at least 30 minutes prior to VAD insertion in divided doses as needed for size of site for insertion. MAX Dose: 2.5 g (?? of 5 g tube) Do NOT give if patient has a history of allergy to any local anesthetic or any colt product. Do NOT use both lidocaine intradermal/subcutaneous injection and the lidocaine cream on the same site. lidocaine 1 % 0.1-1 mL 0.1-1 mL, Other, EVERY 1 HOUR PRN, mild pain with VAD insertion, Starting on 03/22/24 at 1736, MAX dose 1 mL subcutaneous OR intradermal along the side of the vein in divided doses as needed for VAD insertion. Do NOT give if patient has a history of allergy to any local anesthetic or any colt product. Do NOT use both lidocaine intradermal/subcutaneous injection and the lidocaine cream on the same site. 1250 (Auto Hold - Provider: Orders Generic Provider - Reason: Transfer to a procedural area)1834 (Unhold - Provider: Orders Generic Provider) lidocaine 1 % 0.1-1 mL 0.1-1 mL, Other, EVERY 1 HOUR PRN, mild pain with VAD insertion, Starting on Sun03/25/24 at 1843, MAX dose 1 mL subcutaneous OR intradermal along the side of the vein in divided doses as needed for VAD insertion. Do NOT give if patient has a history of allergy to any local anesthetic or any colt product. Do NOT use both lidocaine intradermal/subcutaneous injection and the lidocaine cream on the same site. lidocaine 1% with EPINEPHrine 1:100,000 30 mL, BUPivacaine (MARCAINE) 0.25 % 30 mL (CANCELED) PRN, Starting on Sun03/25/24 at 1645, Intra-procedure 1645 ($Given - Provider: Richie Hawk, DO - Comment: Temporal part of the head) methocarbamol (ROBAXIN) tablet 500 mg 500 mg, Oral, 4 TIMES DAILY PRN, muscle spasms, Starting on Sun03/25/24 at 1212 1250 (Auto Hold - Provider: Orders Generic Provider - Reason: Transfer to a procedural area)1834 (Unhold - Provider: Orders Generic Provider)1855 ($Given - Provider: Jenna Pablo RN) 0127 ($Given - Provider: Christina Velásquez, ALLYSON)1634 ($Given - Provider: Ann Aquino, [place]YSON) ondansetron (ZOFRAN) injection 4 mg 4 mg, Intravenous, EVERY 30 MIN PRN, nausea, vomiting, Administer over 2-5 Minutes, Starting on Sun03/22/24 at 0902, For 3 doses, May repeat in 30 minutes as needed, up to 3 doses. 1250 (Auto Hold - Provider: Orders Generic Provider - Reason: Transfer to a procedural area)1643 ($Given - Provider: Saeed Yuen RN)1834 (Unhold - Provider: Orders Generic Provider) ondansetron (ZOFRAN) injection 4 mg (CANCELED)(Linked Group 1) 4 mg, Intravenous, EVERY 30 MIN PRN, nausea, Administer over 2-5 Minutes, Starting on Sun03/25/24 at 1732, For 2 doses, This is Step 1 of nausea and vomiting management. If nausea/vomiting not resolved in 15 minutes, then go to Step 2 dexamethasone (DECADRON) IV. MAX total dose = 8 mg, including OR dosing., PACU 1732 ($Given - Provider: Henrique Diaz, RN) prochlorperazine (COMPAZINE) injection 5 mg (CANCELED) 5 mg, Intravenous, EVERY 6 HOURS PRN, nausea, vomiting, Administer over 1-2 Minutes, Starting on 03/25/24 at 1732, This is Step 3 of the nausea and vomiting protocol. If nausea/vomitting not resolved in 15-30 minutes, notify Provider., PACU 1747 ($Given - Provider: Henrique Diaz RN) senna-docusate (SENOKOT-S/PERICOLACE) 8.6-50 MG per tablet 1 tablet(Linked Group 2) 1 tablet, Oral, 2 TIMES DAILY PRN, constipation, Starting on 03/22/24 at 1736, If no bowel movement in 24 hours, increase to 2 tablets by mouth. IF more than 1 constipation PRN medication is ordered, administer step-garnica as indicated, moving to the next step ONLY if prior step ineffective. Step 1: senna-docusate (SENOKOT-S; PERICOLACE) OR bisacodyl (DULCOLAX) EC tablet Step 2: polyethylene glycol (MIRALAX/GLYCOLAX) Step 3: bisacodyl (DULCOLAX) suppository Step 4: enema Hold for loose stools. 1250 (Auto Hold - Provider: Orders Generic Provider - Reason: Transfer to a procedural area)1834 (Unhold - Provider: Orders Generic Provider) 0826 ($Given - Provider: Shoshana Jaimes RN) senna-docusate (SENOKOT-S/PERICOLACE) 8.6-50 MG per tablet 2 tablet(Linked Group 2) 2 tablet, Oral, 2 TIMES DAILY PRN, constipation, Starting on 03/22/24 at 1736, IF more than 1 constipation PRN medication is ordered, administer step-garnica as indicated, moving to the next step ONLY if prior step ineffective. Step 1: senna-docusate (SENOKOT-S; PERICOLACE) OR bisacodyl (DULCOLAX) EC tablet Step 2: polyethylene glycol (MIRALAX/GLYCOLAX) Step 3: bisacodyl (DULCOLAX) suppository Step 4: enema Hold for loose stools. 1250 (Auto Hold - Provider: Orders Generic Provider - Reason: Transfer to a procedural area)1834 (Unhold - Provider: Orders Generic Provider) 0826 (See Alternative - Provider: Shoshana Jaimes RN) sodium chloride (PF) 0.9% PF flush 3 mL 3 mL, Intracatheter, EVERY 1 MIN PRN, line flush, other, to ensure patency or to lock dormant line, Starting on 03/22/24 at 1736 1250 (Auto Hold - Provider: Orders Generic Provider - Reason: Transfer to a procedural area)1834 (Unhold - Provider: Orders Generic Provider) sodium chloride (PF) 0.9% PF flush 3 mL 3 mL, Intracatheter, EVERY 1 MIN PRN, line flush, other, to ensure patency or to lock dormant line, Starting on 03/25/24 at 1843 Linked Groups Order Group 1: ondansetron (ZOFRAN ODT) ODT tab 4 mg (CANCELED) 4 mg, Oral, EVERY 30 MIN PRN, nausea, Starting on Sun03/25/24 at 1732, For 2 doses, Administer if NO vascular access present. This is Step 1 of nausea and vomiting management. If nausea/vomiting not resolved in 15 minutes, go to Step 2 dexamethasone (DECADRON) IV. MAX total dose = 8 mg, including OR dosing. With dry hands, peel back foil backing and gently remove tablet. Do not push oral disintegrating tablet through foil backing. Administer immediately on tongue and oral disintegrating tablet dissolves in seconds, then swallow with saliva. Liquid not required., PACU Or ondansetron (ZOFRAN) injection 4 mg (CANCELED)Jump to med 4 mg, Intravenous, EVERY 30 MIN PRN, nausea, Administer over 2-5 Minutes, Starting on Tu03/25/24 at 1732, For 2 doses, This is Step 1 of nausea and vomiting management. If nausea/vomiting not resolved in 15 minutes, then go to Step 2 dexamethasone (DECADRON) IV. MAX total dose = 8 mg, including OR dosing., PACU Group 2: senna-docusate (SENOKOT-S/PERICOLACE) 8.6-50 MG per tablet 1 tabletJump to med 1 tablet, Oral, 2 TIMES DAILY PRN, constipation, Starting on 03/22/24 at 1736, If no bowel movement in 24 hours, increase to 2 tablets by mouth. IF more than 1 constipation PRN medication is ordered, administer step-garnica as indicated, moving to the next step ONLY if prior step ineffective. Step 1: senna-docusate (SENOKOT-S; PERICOLACE) OR bisacodyl (DULCOLAX) EC tablet Step 2: polyethylene glycol (MIRALAX/GLYCOLAX) Step 3: bisacodyl (DULCOLAX) suppository Step 4: enema Hold for loose stools. Or senna-docusate (SENOKOT-S/PERICOLACE) 8.6-50 MG per tablet 2 tabletJump to med 2 tablet, Oral, 2 TIMES DAILY PRN, constipation, Starting on 03/22/24 at 1736, IF more than 1 constipation PRN medication is ordered, administer step-garnica as indicated, moving to the next step ONLY if prior step ineffective. Step 1: senna-docusate (SENOKOT-S; PERICOLACE) OR bisacodyl (DULCOLAX) EC tablet Step 2: polyethylene glycol (MIRALAX/GLYCOLAX) Step 3: bisacodyl (DULCOLAX) suppository Step 4: enema Hold for loose stools. documented in this encounter Care Teams Bundle Tier Relationship Specialty Start Date End Date Feliciano Uribe MD [facility] [address] [place] [address] PCP - General Family Medicine 06/01/23 Christina Roe PA-C [address] [place] [address] Physician Disc Recordist Rheumatology 11/06/23 Christina Roe PA-C [address] [place] [address] Assigned Rheumatology Provider 11/09/23 documented as of this encounter
--- OUTSIDE RECORDS SUMMARY | 2024-05-16 13:16 | XMS_ITS | Encounter Summary ---
Author Organization [facility] Address [address] [place] [address]. [place] [address] Care Team Providers Care Associate Financial Advisor Name Role Phone Feliciano Uribe MD Primary Care Provider Christina Roe PA-C Unavailable Christina Roe PA-C Unavailable Richie Rowell [facility] Unavailable Richie Rowell [facility] Unavailable Zhane Crain MD Unavailable Encounter Details Date Type Department Care Team (Late st Contact Info) Description 03/25/2024 Ophth Exam [facility] Service Line [address] [place] [phone] Jorge Kelly MD [address] [place] [address] [phone] Social History Tobacco Use Types Packs/Day Years [...] Virtual Visit [facility] [address] [facility] [address] [place] [address] Zhane Crain MD [address] [place] [phone] Richie Rowell RPH [address] [place] [address] 07/31/2024 2:00 PM ANODIZER Office Visit [facility] [address] [facility] [address] [place] [phone] Christina Roe PA-C [address] [place] [address] documented as of this encounter Visit Diagnoses Not on filedocumented in this encounter Care Teams Associate Financial Advisor Relationship Specialty Start Date End Date Feliciano Uribe MD [facility] [address] [place] [address] PCP - General Family Medicine 06/01/23 Christina Roe PA-C [address] [place] [address] Physician Classifier Rheumatology 11/06/23 Christina Roe PA-C [address] [place] [address] Assigned Rheumatology Provider 11/09/23 Richie Rowell RPH [address] [place] [address] Pharmacist Pharmacist 04/08/24 Richie Rowell RPH [address] [place] [address] [phone] Assigned MTM Pharmacist 04/18/24 Zhane Crain MD [address] [place] [phone] Physician Rheumatology 05/14/24 documented as of this encounter
--- OUTSIDE RECORDS SUMMARY | 2024-05-16 13:16 | XMS_ITS | Encounter Summary ---
Author Organization [facility] Address [address] [place] [address]. [place] [address] Care Team Providers Care Sales Account Specialist Name Role Phone Feliciano Uribe MD Primary Care Provider Christina Roe PA-C Unavailable [phone] Christina Roe PA-C Unavailable Encounter Details Date Type Department Care Team (Late st Contact Info) Description 03/27/2024 Telephone [facility] Eye [facility] - [address] [place] [phone] Saeed Berry MD [address] [place] [address] Social History Tobacco Use Types Packs/Day Years [...] encounter Miscellaneous Notes * Telephone Encounter - Michael Trinity - 03/27/2024 4:15 PM CDT Called and LVM Scheduled for 8/14 @ 815 am if Gato is not able to come in that day - ok for next available and add to the wait list Sent a Penana message Trinity Rodriguez Communication Rn Document Improvement Specialist on 03/27/2024 at 4:19 PM documented in this encounter Plan of Treatment Upcoming Encounters Date Type Department Care Team (Late st Contact Info) Description 05/20/2024 9:30 AM CDT Virtual Visit [facility] [address] [facility] [address] [place] [phone] Zhane Crain MD [address] [place] [address] [facility] [address] [place] [address] 07/31/2024 2:00 PM SALES CLOSER Office Visit [facility] [address] [facility] [address] [place] [phone] Christina Roe PA-C [address] [place] [address] documented as of this encounter Visit Diagnoses Not on filedocumented in this encounter Care Teams Sales Account Specialist Relationship Specialty Start Date End Date Feliciano Uribe MD [facility] - [address] [address] PCP - General Family Medicine 06/01/23 Christina Roe PA-C [address] [place] [address] Physician Professional Programmer Analyst Rheumatology 11/06/23 Christina Roe PA-C [address] [place], [place] [phone] Assigned Rheumatology Provider 11/09/23 documented as of this encounter
--- OUTSIDE RECORDS SUMMARY | 2024-05-16 13:16 | XMS_ITS | Encounter Summary ---
Author Organization [facility] Address [address] [place] [address]. [place] [address] Care Team Providers Care Business Transformation Consultant Name Role Phone Feliciano Uribe MD Primary Care Provider Christina Roe PA-C Unavailable [phone] Christina Roe PA-C Unavailable Reason for Visit * Auth/Cert Specialty Diagnoses / Procedures Referred By Amena prasad Referred To Contact EMERGENCY MEDICINE Diagnoses Temporal arteritis (H) PMR (polymyalgia rheumatica) (H24) Decreased vision of right eye Right temporal headache Neck pain [facility] [address] [place] [address] Referral ID Status Reason Start Date Expiration Date Visits Re quested Visits Authorized [id number] 1 1 Encounter Details Date Type Department Care Team (Late st Contact Info) Description 03/25/2024 3:10 PM CDT Anesthesia Event [facility] [address] [place] [address] Shari Mckeon MD [address] [place] [address] Jeffrey Kelsey APRN BEHAVIORAL HEALTH ASSISTANT [address] [place] [address] Anesthesia Record Procedure Summary Procedure Name Responsible Anesthesiologist Anesthesia Start Time Anesthesia Stop Time Bilateral temporal Artery Biopsy (Bilateral: Head) Shari Mckeon MD 03/25/24 1510 03/25/24 1709 Events Date Time Event Comment 03/25/2024 1330 BEHAVIORAL HEALTH ASSISTANT Ready for Procedure 1501 1510 An Start Anesthesia Star t is defined as when the anesthesia provider assumed care, began anesthesia prep, remained continuously present with the patient, and excludes all time for performing the pre-anesthesia evaluation. The Pre-Anesthesia Evaluation was completed before Anesthesia Start. 1513 An Start Data 1521 AN REASSESS I attest that I have identified and re-evaluated the patient immediately before the induction of anesthesia and I am satisfied that the anesthetic plan is suitable for the patient's condition and procedure. The first vital signs recorded are pre- induction. Saeed Yuen RN 1521 An Induction 1523 An Intubation 1527 Anesthesia Ready for Procedu re 1652 AN Extubation All extubation criteria met prior to removal. 165 Quick Note Noted R hematom a at surgical site. Surgery assessing, planning on holding pressure for [address] to PACU and placing pressure dressing. 1657 an stop data 1709 An Stop Electronically signed by Wandy Ulloa APRN BEHAVIORAL HEALTH ASSISTANT on March 25, 2024 5:09 PM Meds Name Total fentaNYL 50 mcg/mL 100 mcg lidocaine 2% 100 mg propofol 10 mg/mL 150 mg propofol (DIPRIVAN) injection 10 mg/mL v ial 150 mg phenylephrine (HOPE-SYNEPHRINE) injection 600 mcg dexamethasone (DECADRON) 4 mg/mL 8 mg sugammadex (BRIDION) 200mg/2mL 150 mg ceFAZolin Sodium (ANCEF) injection 2 g 2 g esmolol 10 mg/mL 70 mg glycopyrrolate 0.2 mg/mL 0.2 mg rocuronium (ZEMURON) 10 mg/mL injection 50 mg phenylephrine 0.1 mg/mL infusion (mcg/kg /min) 0.73 mg ondansetron (ZOFRAN) injection 4 mg 4 mg lactated ringers infusion 700 mL * Agents Name O2 N2O Air Exp Sevoflurane Exp Isoflurane Exp Desflurane O2 Delivery Device Ins Sevoflurane Ins Isoflurane Ins Desflurane O2 Auxiliary * Blood No blood administrations on file. Lines, Drains, and Airways Type Details Placement Removal Incision/Surgical Site 03/25/24; 1648; Bilateral; Head; Sutured and Glued 03/25/24 1648 by Felipe Plata RN Peripheral IV 03/24/24; 1719; 22 G ; B Benjamin; Anterior, Left; Lower forearm; Chlorhexidine; None; Tolerated well 03/24/24 1719 by Zuly Gomez 03/26/242004 by Inpatient, Nurse ETT Placement Date: 03/25/24; Placement Time: 1522 (created via procedure documentation); Mask Ventilation: 1; Induction Type: Intravenous; Ease of Intubation: Easy; Technique: Direct laryngoscopy; Tube Size: 7 mm; DL Blade Size: Frausto 2; Grade View: 1; Adjucts: Stylet; Placement Person: BEHAVIORAL HEALTH ASSISTANT, BEHAVIORAL HEALTH ASSISTANT Student; Attempts: 1 03/25/24 1523 by Shari Mckeon MD 03/25/24 1652 by Saeed Yuen RN documented in this encounter Social History Tobacco [...] on file documented as of this encounter OR Notes * Anesthesia Postprocedure Evaluation - Brenda Nunn MD - 03/25/2024 6:20 PM CDT Patient: Gato Jimenez Procedure: Procedure(s): Bilateral temporal Artery Biopsy Anesthesia Type: General Note: Disposition: Inpatient Postop Pain Control: Uneventful Sign Out: Well controlled pain PONV: No Neuro/Psych: Uneventful Sign Out: Acceptable/Baseline neuro status Airway/Respiratory: Uneventful Sign Out: Acceptable/Baseline resp. status CV/Hemodynamics: Uneventful Sign Out: Acceptable CV status; No obvious hypovolemia; No obvious fluid overload Other NRE: NONE DID A NON-ROUTINE EVENT OCCUR? Last vitals: Vitals Value Taken Time BP 150/69 03/25/24 1815 Temp 36.4 ??C (97.5 ??F) 03/25/24 1800 Pulse 73 03/25/24 1824 Resp 21 03/25/24 1824 SpO2 96 % 07/30/24 1824 Vitals shown include unfiled device data. Electronically Signed By: Brenda Nunn MD March 25, 2024 6:33 PM * Anesthesia Procedure Notes - Saeed Yuen RN - 03/25/2024 3:51 PM CDT Associated Order(s): Airway Airway Patient location during procedure: OR Procedure Start/Stop Times: 03/25/2024 3:23 PM Staff - BEHAVIORAL HEALTH ASSISTANT: Margarita Gracia APRN CRNA Other Anesthesia Staff: Saeed Yuen RN Performed By: BEHAVIORAL HEALTH ASSISTANT and SRNA Consent for Airway Urgency: elective Indications and Patient Condition Indications for airway management: whitney-procedural Induction type:intravenous Mask difficulty assessment: 1 - vent by mask Final Airway Details Final airway type: endotracheal airway Successful airway: ETT - single Endotracheal Airway Details ETT size (mm): 7.0 Cuffed: yes Cuff volume (mL): 6 Successful intubation technique: direct laryngoscopy DL Blade Type: Frausto 2 Grade View of Cords: 1 Adjucts: stylet Position: Right Measured from: lips Secured at (cm): 22 Bite block used: None Post intubation assessment Placement verified by: capnometry, equal breath sounds and chest rise Number of attempts at approach: 1 Number of other approaches attempted: 0 Secured with: tape Ease of procedure: easy Dentition: Intact Medication(s) Administered propofol (DIPRIVAN) injection 10 mg/mL vial - Intravenous 150 mg - 03/25/2024 3:23:00 PM rocuronium (ZEMURON) 10 mg/mL injection - Intravenous 50 mg - 03/25/2024 3:23:00 PM Medication Administration Time: 03/25/2024 3:23 PM * Anesthesia Preprocedure Evaluation - Marvin Zapata MD - 03/25/2024 1:59 PM CDT Anesthesia Pre-Procedure Evaluation Patient: Gato Jimenez : 1945 Procedure : Procedure(s): Biopsy artery temporal No past medical history on file. Past Surgical History: Procedure Laterality Date GASTRIC BYPASS JOINT REPLACEMENT Right 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 Social History Tobacco Use Smoking status: Never Passive exposure: Past Smokeless tobacco: Never Substance Use Topics Alcohol use: Yes Comment: occasional wine Wt Readings from Last 1 Encounters: 03/25/24 69.2 kg (152 lb 8 oz) Anesthesia Evaluation Pt has had prior anesthetic. Type: General and MAC. ROS/MED HX ENT/Pulmonary: Neurologic: Comment: Temporal arteritis Cardiovascular: (+) Dyslipidemia hypertension- - CAD - - - dysrhythmias (paroxysmal), a-fib and a-flutter, METS/Exercise Tolerance: Hematologic: Musculoskeletal: Comment: R total knee arthroplasty GI/Hepatic: Comment: R-en-Y gastric bypass (-) GERD Renal/Genitourinary: Endo: (+) thyroid problem, hypothyroidism, Psychiatric/Substance Use: (+) psychiatric history anxiety Infectious Disease: Malignancy: Other: Comment: SLE, polymyalgia rheumatica on prednisone, graves disease, concern for giant cell arteritis Physical Exam Airway Mallampati: III TM distance: > 3 FB Neck ROM: full Mouth opening: < 3 cm Respiratory Devices and Support Dental (+) Modest Abnormalities - crowns, retainers, 1 or 2 missing teeth Cardiovascular Pulmonary OUTSIDE LABS: CBC: Lab Results Component Value Date WBC 11.3 (H) 03/25/2024 WBC 17.2 (H) 03/24/2024 HGB 12.8 03/25/2024 HGB 13.5 03/24/2024 HCT 38.7 03/25/2024 HCT 41.4 03/24/2024 PLT 195 03/25/2024 PLT 227 03/24/2024 BMP: Lab Results Component Value Date NA 141 03/25/2024 NA 142 03/24/2024 POTASSIUM 3.8 03/25/2024 POTASSIUM 3.5 03/24/2024 CHLORIDE 109 (H) 03/25/2024 CHLORIDE 110 (H) 03/24/2024 CO2 22 03/25/2024 CO2 22 03/24/2024 BUN 16.6 03/25/2024 BUN 16.1 03/24/2024 CR 0.67 03/25/2024 CR 0.61 03/24/2024 GLC 162 (H) 03/25/2024 GLC 172 (H) 03/24/2024 COAGS: Lab Results Component Value Date PTT 33 03/22/2024 INR 0.91 03/22/2024 POC: No results found for: BGM, HCG, HCGS HEPATIC: Lab Results Component Value Date ALBUMIN 4.4 03/22/2024 PROTTOTAL 7.0 03/22/2024 ALT 79 (H) 03/22/2024 AST 21 03/22/2024 ALKPHOS 121 03/22/2024 BILITOTAL 0.3 03/22/2024 OTHER: Lab Results Component Value Date LACT 1.4 03/22/2024 CALDERON 8.4 (L) 03/25/2024 MAG 1.9 03/22/2024 TSH 2.40 03/22/2024 SED 8 03/25/2024 Anesthesia Plan ASA Status: 3 NPO Status: NPO Appropriate Anesthesia Type: General. - Airway: ETT Induction: Intravenous, Propofol. Maintenance: Balanced. Consents Anesthesia Plan(s) and associated risks, benefits, and realistic alternatives discussed. Questions answered and patient/real estate representative(s) expressed understanding. - Discussed: - Discussed with: Patient - Extended Intubation/Ventilatory Support Discussed: No. - Patient is DNR/DNI Status: No Postoperative Care Pain management: IV analgesics. PONV prophylaxis: Ondansetron (or other 5HT-3), Dexamethasone or Solumedrol Comments: Marvin Zapata MD I have reviewed the pertinent notes and labs in the chart from the past 30 days and (re)examined the patient. Any updates or changes from those notes are reflected in this note. documented in this encounter Miscellaneous Notes * Anesthesia Care Transfer Note - Wandy Ulloa APRN BEHAVIORAL HEALTH ASSISTANT - 03/25/2024 5:06 PM CDT Patient: Gato Jimenez Procedure: Procedure(s): Bilateral temporal Artery Biopsy Diagnosis: Sudden visual loss of right eye [H53.131] Diagnosis Additional Information: No value filed. Anesthesia Type: General Note: Oropharynx: oropharynx clear of all foreign objects and spontaneously breathing Level of Consciousness: awake Oxygen Supplementation: nasal cannula Level of Supplemental Oxygen (L/min / FiO2): 4 Independent Airway: airway patency satisfactory and stable Dentition: dentition unchanged Vital Signs Stable: post-procedure vital signs reviewed and stable Report to RN Given: handoff report given Patient transferred to: PACU Handoff Report: Identifed the Patient, Identified the Reponsible Provider, Reviewed the pertinent medical history, Discussed the surgical course, Reviewed Intra-OP anesthesia mangement and issues during anesthesia, Set expectations for post-procedure period and Allowed opportunity for questions andacknowledgement of understanding Vitals: Vitals Value Taken Time BP Temp Pulse 155 03/25/24 1706 Resp 18 03/25/24 1706 SpO2 100 % 03/25/24 1706 Vitals shown include unfiled device data. Electronically Signed By: Wandy Ulloa APRN CRNA March 25, 2024 5:06 PM documented in this encounter Plan of Treatment Upcoming Encounters Date Type Department Care Team (Late st Contact Info) Description 05/20/2024 9:30 AM CDT Virtual Visit [facility] [address] [facility] [address] [place] [phone] Zhane Crain MD [address] [place] [address] Richie Rowell, [facility] [address] [place] [address] 07/31/2024 2:00 PM REMELT SUGAR BOILER Office Visit [facility] [address] [facility] [address] [place] [phone] Christina Roe PA-C [address] [place] [address] documented as of this encounter Procedures Procedure Name Priority Date/Time Associated Diagnosis Comments ANE AIRWAY ETT PERFORMABLE Routine 03/25/2024 3:23 PM CDT documented in this encounter Results * ANE AIRWAY ETT PERFORMABLE (03/25/2024 3:23 PM CDT) Narrative Saeed Yuen RN - 03/25/2024 3:23 PM CDT Saeed Yuen RN ? 03/25/2024 ??3:53 PM Airway ? Patient location during procedure: OR ? Procedure Start/Stop Times: 03/25/2024 3:23 PM Staff - ? BEHAVIORAL HEALTH ASSISTANT: Margarita Gracia APRN CRNA ? Other Anesthesia Staff: Saeed Yuen RN ? Performed By: BEHAVIORAL HEALTH ASSISTANT and SRNA Consent for Airway ? Urgency: [...] Time: 03/25/2024 3:23 PM Shari Mckeon MD [place] ANESTHESIA documented in this encounter Visit Diagnoses Not on filedocumented in this encounter Administered Medications Inactive Administered Medications - up to 3 most recent administrations Medication Order MAR Action Action Date Dose Rate Site ceFAZolin Sodium (ANCEF) injection 2 g Routine, 2 g, Intravenous, SEE ADMIN INSTRUCTIONS, Starting on Sun03/25/24 at 1306, Intra-Op Dose.??Give every 4 hours while patient in surgery, starting 4 hours after pre-op dose., Indications: Perioperative Pharmacoprophylaxis, Pre-procedure $Given 03/25/2024 3:25 PM CDT 2 g dexAMETHasone (DECADRON) injection Intravenous, PRN, Administer over 1 Minutes, Starting on Sun03/25/24 at 1527, Anesthesia Intra-op $Given 03/25/2024 3:27 PM CDT 8 mg esmolol (BREVIBLOC) injection Intravenous, PRN, Starting on Sun03/25/24 at 1527, Anesthesia Intra-op $Given 03/25/2024 3:27 PM CDT 70 mg fentaNYL (PF) (SUBLIMAZE) injection Intravenous, PRN, Administer over 3-5 Minutes, Starting on Sun03/25/24 at 1521, Anesthesia Intra-op $Given 03/25/2024 3:21 PM CDT 100 mcg glycopyrrolate (ROBINUL) injection Intravenous, PRN, Administer over 1-2 Minutes, Starting on Sun03/25/24 at 1540, Anesthesia Intra-op $Given 03/25/2024 3:40 PM CDT 0.2 mg lactated ringers infusion at 100 mL/hr, Intravenous, CONTINUOUS, Starting on Sun03/25/24 at 1000, Until Sun03/25/24 at 1955 $New Bag 03/25/2024 3:20 PM CDT $New Bag 03/25/2024 10:08 AM CDT 100 mL/hr lidocaine 2% injection (MDV) Intravenous, PRN, Starting on Sun03/25/24 at 1521, Anesthesia Intra-op $Given 03/25/2024 3:21 PM CDT 100 mg ondansetron (ZOFRAN) injection 4 mg 4 mg, Intravenous, EVERY 30 MIN PRN, nausea, vomiting, Administer over 2-5 Minutes, Starting on Sun03/22/24 at 0902, For 3 doses, May repeat in 30 minutes as needed, up to 3 doses. $Given 03/25/2024 4:43 PM CDT 4 mg phenylephrine (HOPE-SYNEPHRINE) injection Intravenous, CONTINUOUS PRN, Starting on Sun03/25/24 at 1540, Anesthesia Intra-op $Bolus 03/25/2024 4:14 PM CDT 100 mcg $Bolus 03/25/2024 4:07 PM CDT 200 mcg $Bolus 03/25/2024 4:02 PM CDT 100 mcg phenylephrine 0.1 mg/mL infusion (mcg/kg/min) Intravenous, CONTINUOUS PRN, Starting on Sun03/25/24 at 1619, Anesthesia Intra-op Rate/Dose Change 03/25/2024 4:31 PM CDT 0.5 mcg/kg/min 20.76 mL/hr $New Bag 03/25/2024 4:19 PM CDT 0.3 mcg/kg/min 12.456 mL /hr propofol (DIPRIVAN) injection 10 mg/mL vial Intravenous, PRN, Starting on Sun03/25/24 at 1521, Anesthesia Intra-op $Given 03/25/2024 3:30 PM CDT 70 mg $Given 03/25/2024 3:21 PM CDT 80 mg propofol (DIPRIVAN) injection 10 mg/mL vial Intravenous, Starting on Sun03/25/24 at 1523, Anesthesia Intra-op $Given 03/25/2024 3:23 PM CDT 150 mg rocuronium injection Intravenous, Starting on Sun03/25/24 at 1523, Anesthesia Intra-op $Given 03/25/2024 3:23 PM CDT 50 mg sugammadex (BRIDION) injection Intravenous, PRN, Starting on Sun03/25/24 at 1642, Anesthesia Intra-op $Given 03/25/2024 4:42 PM CDT 150 mg documented in this encounter Care Teams Business Transformation Consultant Relationship Specialty Start Date End Date Feliciano Uribe MD [facility] [address] [place] [address] PCP - General Family Medicine 06/01/23 Christina Roe PA-C [address] [place] [id number] Physician Hat Lining Paster Rheumatology 11/06/23 Christina Roe PA-C [address] [place] [address] Assigned Rheumatology Provider 11/09/23 documented as of this encounter
--- OUTSIDE RECORDS SUMMARY | 2024-05-16 13:17 | XMS_ITS | Encounter Summary ---
Author Organization [facility] Address [address] [place] [address]. [place] [address] Care Team Providers Care Patient Safety Sitter Name Role Phone Feliciano Uribe MD Primary Care Provider [phone] Christina Roe PA-C Unavailable Crhistina Roe PA-C Unavailable Richie Rowell [facility] Unavailable Richie Rowell [facility] Unavailable Zhane Crain MD Unavailable Encounter Details Date Type Department Care Team (Late st Contact Info) Description 03/23/2024 Ophth Exam [facility] - Eye Care Service Line [address] [place] [phone] Lamont Canales MD [address] [place] [address] [phone] Social History Tobacco Use Types Packs/Day Years [...] Description 05/20/2024 9:30 AM CDT Virtual Visit [facility] [address] [facility] [address] [place] [phone] Zhane Crain MD [address] [place] [address] [phone] Richie Rowell RPH [address] [place] [address] 07/31/2024 2:00 PM NEWS DIRECTOR Office Visit [facility] [address] [facility] [address] [place] [phone] Christina Roe PA-C [address] [place] [address] documented as of this encounter Visit Diagnoses Not on filedocumented in this encounter Care Teams Patient Safety Sitter Relationship Specialty Start Date End Date Feliciano Uribe MD [facility] [address] [place] [address] PCP - General Family Medicine 06/01/23 Christina Roe PA-C [address] [place] [address] Physician Supervisor Slitting And Shipping Rheumatology 11/06/23 Christina Roe PA-C [address] [place] [address] Assigned Rheumatology Provider 11/09/23 Richie Rowell RPH [address] [place] [address] [phone] Pharmacist Pharmacist 04/08/24 Richie Rowell RPH [address] [place] [address] Assigned MTM Pharmacist 04/18/24 Zhane Crain MD [address] [place] [address] Physician Rheumatology 05/14/24 documented as of this encounter
--- OUTSIDE RECORDS SUMMARY | 2024-05-16 13:17 | XMS_ITS | Encounter Summary ---
Author Organization [facility] Address [address] [place] [address] Care Team Providers Care Nursery School Attendant Name Role Phone Feliciano Uribe MD Primary Care Provider Christina Roe PA-C Unavailable Christina Roe PA-C Unavailable Richie Rowell Justine Unavailable Richie Rowell [facility] Unavailable Zhane rCain MD Unavailable Encounter Details Date Type Department Care Team (Late st Contact Info) Description 02/15/2024 [facility] Medical Advice [address] [place] [address] Christina Roe PA-C [address] [place] [address] Polymyalgia rheumatica (H24) (Primary Dx) Social History [...] Description 05/20/2024 9:30 AM CDT Virtual Visit [facility] [address] [facility] [address] [place] [phone] Zhane Crain MD [address] [place] [address] Richie Rowell RPH [address] [place] [address] 07/31/2024 2:00 PM FOREST FIRE WARDEN Office Visit [facility] [address] [facility] [address] [place] [phone] Christina Roe PA-C [address] [place] [address] documented as of this encounter Visit Diagnoses Diagnosis Polymyalgia rheumatica (H24)- Primary Polymyalgia rheumatica documented in this encounter Care Teams Nursery School Attendant Relationship Specialty Start Date End Date Feliciano Uribe MD [address] [address] PCP - General Family Medicine 06/01/23 Christina Roe PA-C [address] [place] [address] Physician Press Brake Operator Rheumatology 11/06/23 Christina Roe PA-C [address] [place] [address] Assigned Rheumatology Provider 11/09/23 Richie Rowell RPH [address] [place] [address] Pharmacist Pharmacist 04/08/24 Richie Rowell RPH [address] [place] [address] Assigned MTM Pharmacist 04/18/24 Zhane Crain MD [address] [place] [address] Physician Rheumatology 05/14/24 documented as of this encounter
--- OUTSIDE RECORDS SUMMARY | 2024-05-16 13:17 | XMS_ITS | Encounter Summary ---
Author Organization [facility] Address [address] [place] [address] Care Team Providers Care Director Business Management Name Role Phone Feliciano Uribe MD Primary Care Provider Christina Roe PA-C Unavailable Christina Roe PA-C Unavailable Encounter Details Date Type Department Care Team (Late st Contact Info) Description 03/17/2024 [facility] Medical Advice [address] [place] [address] Christina Roe PA-C [address] [place] [address] Social History Tobacco Use Types Packs/Day Years [...] Telephone Encounter - Christina Roe PA-C - 03/19/2024 1:22 PM CDT Message reviewed. MAURILIO Woodard documented in this encounter Plan of Treatment Upcoming Encounters Date Type Department Care Team (Late st Contact Info) Description 05/20/2024 9:30 AM CDT Virtual Visit [facility] [address] [facility] [address] [place] [phone] Zhane Crain MD [address] [place] [address] [address] [address] [place] [address] 07/31/2024 2:00 PM OPHTHALMIC DISPENSER Office Visit [facility] [address] [facility] [address] [place] [phone] Christina Roe PA-C [address] [place] [address] documented as of this encounter Visit Diagnoses Not on filedocumented in this encounter Care Teams Director Business Management Relationship Specialty Start Date End Date Feliciano Uribe MD [facility] [address] [address] PCP - General Family Medicine 06/01/23 Christina Roe PA-C [address] [place] [address] Physician Oil Well Pumper Rheumatology 11/06/23 Christina Roe PA-C [address] [place] [address] Assigned Rheumatology Provider 11/09/23 documented as of this encounter
--- OUTSIDE RECORDS SUMMARY | 2024-05-16 13:17 | XMS_ITS | Encounter Summary ---
Author Organization [facility] Address [address] [place] [address] Care Team Providers Care Manufacturing Assistant Name Role Phone Feliciano Uribe MD Primary Care Provider [phone] Christina Roe PA-C Unavailable [phone] Christina Roe PA-C Unavailable [phone] Reason for Visit * Reason Comments RECHECK Encounter Details Date Type Department Care Team (Late st Contact Info) Description 03/20/2024 10:30 AM CDT Office Visit [address] [place] [address] Christina Roe PA-C [address] [place], [place] [phone] Polymyalgia rheumatica (H24) (Primary Dx); On prednisone therapy; Right sided temporal headache Social History Tobacco Use Types Packs/Day Years [...] Sign Reading Time Taken Comments Blood Pressure 190/90 03/20/2024 9:42 AM CDT Pulse 73 03/20/2024 9:42 AM CDT Temperature - - Respiratory Rate - - Oxygen Saturation 98% 03/20/2024 9:42 AM CDT Inhaled Oxygen Concentration - - Weight 67.8 kg (149 lb 6.4 oz) 03/20/2024 9:42 A M CDT Height - - Body Mass Index - - documented in this encounter Patient Instructions * Patient Instructions* Christina Roe PA-C - 03/20/2024 10:30 AM CDT After Visit Instructions: Thank you for coming to [facility] for your care. It is my goal to partner withu to help you reach your optimal state of health. Plan: I recommend that you present to the Emergency Room. You have been getting treated for polymyalgia rheumatica. Given the onset of severe headache, double vision and jaw tiredness, I recommend you be seen in the ER as you may need IV steroids for a condition called Giant Cell Arteritis. Christina Roe PA-C [facility] Contact information: [facility] Number: [phone] Please call or send a Appreciation Engine message with any questions about your care documented in this encounter Progress Notes * Christina Roe PA-C - 03/20/2024 10:30 AM CDT Rheumatology Clinic Visit [facility] MAURILIO Woodardgilbert Mikeinson Date of : 1945 Age: [age] year old Date of Visit: 03/20/2024 Primary care provider: Feliciano Uribe Assessment and Plan: Polymyalgia rheumatica On Prednisone therapy Right-sided temporal headache Patient presents today for follow-up. Patient was initially diagnosed with polymyalgia rheumatica based on her symptoms. She had severe stiffness in her shoulders and arms. She was unable to raise her arms above her head. She had had dramatic improvement of symptoms with the initiation of prednisone. She has had a normal CRP and sed rate which although is not common can happen with polymyalgia rheumatica. We have been periodically having to increase her dose with increased symptoms as we taper the prednisone. On Sunday she presented to the emergency room as she had severe onset of pain and stiffness on the right side of her neck. This radiated up into her head and she had a severe headache on the right side of her head. She reports that she had double vision at that time as well and hada difficult time focusing. She also reports that when eating her jaw does get tired and sore and she needs to stop. She was given a shot of morphine and recommended to go up to 20 mg daily of prednisone for 5 days until she came in to be seen by rheumatology. She states that the symptoms in her arms have improved. She is now able to raise her arms above her head and get herself dressed. This was difficult to do when she had the sudden onset of pain as well. She does continue to have a headache,vision changes, and jaw tiredness but states that it has improved. I am quite concerned that this could be giant cell arteritis. Given the vision changes that she has started to have I recommended that she present to the emergency room as she may need IV steroids and a stat temporal artery biopsy. She has also had an elevated blood pressure which could be related to the steroids but could also beother etiologies as well. She states that overall she feels that her head is fuzzy which is anotherrecommendation to present to the emergency room with a headache and the elevated blood pressure. Patient verbalized her understanding and stated that she will present to the emergency room. Follow-up with rheumatology will depend on the workup performed in the ER. Christina Roe, MAURILIO Rheumatology History of Present Illness: Gato Jimenez presents for evaluation of neck pain. Interval history March 20, 2024: She started with pain in her rib cage. It was difficult to breathe due to the pain. Then her neck started to hurt and it went up into her head and jaw. She felt like her head was breaking. Patient was seen in the emergency room due to severe pain on the right side of her neck. She had rib cage inflammation as well. She got 20 mg of prednisone for 5 days. Currently her pain is at a 4. She still feels it in the head/neck. She states that she had a hard time focusing during that episode. She states that her head feels funny. On Sunday she was unable to raise her arms above her head. She needed assistance with getting dressed. Interval history December 13, 2023: She is [...] Strain: Low Risk (10/10/2022) Received from [facility] Overall Financial Resource Strain (CARDIA) Difficulty of Paying Living Expenses: Not hard at all Food Insecurity: No Food Insecurity (10/10/2022) Received from [facility] Hunger Vital Sign Worried About Running Out of Food in the Last Year: Never true Ran Out of Food in the Last Year: Never true Transportation Needs: No Transportation Needs (10/10/2022) Received from [facility] PRAPARE - Transportation Lack of Transportation (Medical): No Lack of Transportation (Non-Medical): No Physical Activity: Insufficiently Active (10/10/2022) Received from [facility] Exercise Vital Sign Days of Exercise per Week: 2 days Minutes of Exercise per Session: 40 min Stress: No Stress Concern Present (10/10/2022) Received from [facility] [place] of Occupational Health - Occupational Stress Questionnaire Feeling of Stress : Only a little Social Connections: Socially Integrated (10/10/2022) Received from [facility] Social Connection and Isolation Panel [NHANES] Frequency of Communication with Friends and Family: Twice a week Frequency of Social Gatherings with Friends and Family: Twice a week Attends Religion Services: More than 4 times per year Active Member of Clubs or Organizations: Yes Attends Club or Organization Meetings: 1 to 4 times per year Marital Status: Interpersonal Safety: Not At Risk (10/10/2022) Received from [facility] Humiliation, Afraid, Rape, and Kick questionnaire Fear of Current or Ex-Partner: No Emotionally Abused: No Physically Abused: No Sexually Abused: No Housing Stability: Low Risk (10/10/2022) Received from [facility] Housing Stability Vital Sign Unable to Pay [...] by mouth at bedtime D3-50 1.25 MG (32605 UT) capsule Take 1,250 mcg by mouth [...] 120tablet 2 predniSONE (DELTASONE) 5 MG tablet Take 1 tablet (5 mg) by mouth daily 30 tablet 1 predniSONE (DELTASONE) 5 MG tablet take 2 tablets daily for 2 weeks, then take 1 tablet and 4 of the 1mg tablets for a total daily dose of 9mg daily for 2 weeks, You will continue to decrease your dose by 1mg every 2 weeks 90 tablet 2 Physical Exam: There were no vitals taken for this visit. Wt Readings from Last 6 Encounters: 12/13/23 65.9 kg (145 lb 3.2 oz) 11/06/23 66.1 kg (145 lb 11.6 oz) 10/18/23 66.1 kg (145 lb 11.2 oz) Constitutional: well-developed, appearing stated age; cooperative Eyes: nl conjunctiva, sclera ENT: nl external ears, nose, hearing, lips, Neck: no mass or thyroid enlargement Resp: No shortness of breath with normal conversation MSK: Able to raise arms above her head. She does have tenderness to palpation over the right temporal artery. Some tenderness over her right jaw as well. Psych: nl judgement, orientation, memory, affect. Data: [...] Virtual Visit [facility] [address] [facility] [address] [place] [phone] Zhane Crain MD [address] [place], [place] [phone] [facility] 909 [place] [address] 07/31/2024 2:00 PM BUSINESS DEVELOPMENT ASSISTANT Office Visit [facility] [address] [facility] [address] [place] [phone] Christina Roe PA-C [address] [place] [address] documented as of this encounter Visit Diagnoses Diagnosis Polymyalgia rheumatica (H24)- Primary Polymyalgia rheumatica On prednisone therapy Right sided temporal headache Headache documented in this encounter Care Teams Manufacturing Assistant Relationship Specialty Start Date End Date Feliciano Uribe MD [facility] [address] [place] [address] PCP - General Family Medicine 06/01/23 Christina Roe PA-C [address] [place] [address] Physician Vehicle And Equipment Cleaner Rheumatology 11/06/23 Christina Roe PA-C [address] [place] [address] Assigned Rheumatology Provider 11/09/23 documented as of this encounter
--- OUTSIDE RECORDS SUMMARY | 2024-05-16 13:17 | XMS_ITS | Encounter Summary ---
Author Organization [facility] Address [address] [place] [address]. [place] [address] Care Team Providers Care Ore Smelter Name Role Phone Feliciano Uribe MD Primary Care Provider Christina Roe PA-C Unavailable [phone] Christina Roe PA-C Unavailable Richie Rowell [facility] Unavailable Richie Rowell [facility] Unavailable Zhane Crain MD Unavailable Encounter Details Date Type Department Care Team (Late st Contact Info) Description 03/22/2024 Ophth Exam [facility] - Eye Care Service Line [address] [place] [phone] Luis Alberto Anderson MD [address] [place] [address] Social History Tobacco Use Types Packs/Day [...] Description 05/20/2024 9:30 AM CDT Virtual Visit [facility] [address] [facility] [address] [place] [phone] Zhane Crain MD [address] [place] [address]135 Richie Rowell RPH [address] [place] [address] 07/31/2024 2:00 PM BINDERY CUTTER OPERATOR Office Visit [facility] [address] [facility] [address] [place] [phone] Christina Roe PA-C [address] [place] [address] documented as of this encounter Visit Diagnoses Not on filedocumented in this encounter Care Teams Ore Smelter Relationship Specialty Start Date End Date Feliciano Uribe MD [facility] [address] [place] [address] PCP - General Family Medicine 06/01/23 Christina Roe PA-C [address] [place] [address] Physician Assistant Teaching Professor Rheumatology 11/06/23 Christina Roe PA-C [address] [place] [address] Assigned Rheumatology Provider 11/09/23 Richie Rowell RPH [address] [place] [address] [phone] Pharmacist Pharmacist 04/08/24 Richie Rowell RPH [address] [place] [address] Assigned MTM Pharmacist 04/18/24 Zhane Crain MD [address] [place] [address] Physician Rheumatology 05/14/24 documented as of this encounter
--- OUTSIDE RECORDS SUMMARY | 2024-05-16 13:17 | XMS_ITS | Encounter Summary ---
Author Organization [facility] Address [address] [place] [address]. [place] [address] Care Team Providers Care Dry Cleaning Supervisor Name Role Phone Feliciano Uribe MD Primary Care Provider Christina Roe PA-C Unavailable Christina Roe PA-C Unavailable Richie Rowell [facility] Unavailable Richie Rowell [facility] Unavailable Zhane Crain MD Unavailable Encounter Details Date Type Department Care Team (Late st Contact Info) Description 03/24/2024 Ophth Exam [facility] - Eye Care Service Line [address] [place] [phone] Lamont Canales MD [address] [place] [phone] Social History Tobacco Use Types Packs/Day Years [...] 05/20/2024 9:30 AM CDT Virtual Visit [facility] [address] [facility] [address] [place] [phone] Zhane Crain MD [address] [place] [address] [phone] Richie Rowell RPH [address] [place] [address] 07/31/2024 2:00 PM OPERATING ROOM SURGICAL TECHNOLOGIST Office Visit [facility] [address] [facility] [address] [place] [phone] Christina Roe PA-C [address] [place] [address] documented as of this encounter Visit Diagnoses Not on filedocumented in this encounter Care Teams Dry Cleaning Supervisor Relationship Specialty Start Date End Date Feliciano Uribe MD [facility] [address] [place] [address] PCP - General Family Medicine 06/01/23 Christina Roe PA-C [address] [place] [address] Physician Agricultural Service Worker Rheumatology 11/06/23 Christina Roe PA-C [address] [place] [address] Assigned Rheumatology Provider 11/09/23 Richie Rowell RPH [address] [place] [address] [phone] Pharmacist Pharmacist 04/08/24 Richie Rowell RPH [address] [place] [address] Assigned MTM Pharmacist 04/18/24 Zhane Crain MD [address] [place] [address] Physician Rheumatology 05/14/24 documented as of this encounter
--- OUTSIDE RECORDS SUMMARY | 2024-05-16 13:17 | XMS_ITS | Encounter Summary ---
Author Organization [facility] Address [address] [place] [address] Care Team Providers Care Funeral Pre Arrangement Counselor Name Role Phone Feliciano Uribe MD Primary Care Provider Christina Roe PA-C Unavailable [phone] Christina Roe PA-C Unavailable [phone] Encounter Details Date Type Department Care Team (Latest Contact Info) Description 03/20/2024 Travel Social History Tobacco Use Types Packs/Day [...] Description 05/20/2024 9:30 AM CDT Virtual Visit [facility] [address] [facility] [address] [place] [address] Zhane rCain MD [address] [place] [address] Richie Rowell, [facility] 9[address] [place] [address] 07/31/2024 2:00 PM BUSINESS OFFICE ASSISTANT Office Visit [address] [phone] Christina Roe PA-C [address] [place] [address] documented as of this encounter Visit Diagnoses Not on filedocumented in this encounter Care Teams Funeral Pre Arrangement Counselor Relationship Specialty Start Date End Date Feliciano Uribe MD [address] [address] PCP - General Family Medicine 06/01/23 Christina Roe PA-C [address] [place] [address] Physician Rodeo Clown Rheumatology 11/06/23 Christina Roe PA-C [address] [place] [address] Assigned Rheumatology Provider 11/09/23 documented as of this encounter
--- OUTSIDE RECORDS SUMMARY | 2024-05-16 13:17 | XMS_ITS | Encounter Summary ---
Author Organization [facility] Address [address] [place] [address] Care Team Providers Care Licensed Funeral Director And Embalmer Name Role Phone Feliciano Uribe MD Primary Care Provider Christina Roe PA-C Unavailable [phone] Christina Roe PA-C Unavailable [phone] Encounter Details Date Type Department Care Team (Latest Contact Info) Description 03/22/2024 Travel Social History Tobacco Use Types Packs/Day [...] Description 05/20/2024 9:30 AM CDT Virtual Visit [facility] [address] [facility] [address] [place] [address] Zhane Crain MD [address] [place] [address] Richie Rowell, [facility] 9[address] [place] [address] 07/31/2024 2:00 PM CASER IN Office Visit [address] [phone] Christina Roe PA-C [address] [place] [address] documented as of this encounter Visit Diagnoses Not on filedocumented in this encounter Care Teams Licensed Funeral Director And Embalmer Relationship Specialty Start Date End Date Feliciano Uribe MD [address] [address] PCP - General Family Medicine 06/01/23 Christina Roe PA-C [address] [place] [address] Physician Dev Manager Rheumatology 11/06/23 Christina Roe PA-C [address] [place] [address] Assigned Rheumatology Provider 11/09/23 documented as of this encounter
--- OUTSIDE RECORDS SUMMARY | 2024-05-16 13:17 | XMS_ITS | Encounter Summary ---
Author Organization [facility] Address [address] [place] [address] Care Team Providers Care Cotton Baler Name Role Phone Feliciano Uribe MD Primary Care Provider Christina Roe PA-C Unavailable [phone] Christina Roe PA-C Unavailable [phone] Encounter Details Date Type Department Care Team (Latest Contact Info) Description 03/23/2024 Travel Social History Tobacco Use Types Packs/Day [...] Description 05/20/2024 9:30 AM CDT Virtual Visit [facility] [address] [facility] [address] [place] [address] Zhane Crain MD [address] [place] [address] Richie Rowell, [facility] 9[address] [place] [address] 07/31/2024 2:00 PM SECRETARY RECEPTIONIST Office Visit [address] [phone] Christina Roe PA-C [address] [place] [address] documented as of this encounter Visit Diagnoses Not on filedocumented in this encounter Care Teams Cotton Baler Relationship Specialty Start Date End Date Feliciano Uribe MD [address] [address] PCP - General Family Medicine 06/01/23 Christina Roe PA-C [address] [place] [address] Physician Enrollment Management Manager Rheumatology 11/06/23 Christina Roe PA-C [address] [place] [address] Assigned Rheumatology Provider 11/09/23 documented as of this encounter
--- OUTSIDE RECORDS SUMMARY | 2024-05-16 13:17 | XMS_ITS | Encounter Summary ---
Author Organization [facility] Address [address] [place] [id number] Care Team Providers Care Fairground Operator Name Role Phone Feliciano Uribe MD Primary Care Provider Christina Roe PA-C Unavailable [phone] Christina Roe PA-C Unavailable Reason for Visit * Reason Comments Neck Pain * Auth/Cert Specialty Diagnoses / Procedures Referred By Amena prasad Referred To Contact EMERGENCY MEDICINE Diagnoses Temporal arteritis (H) PMR (polymyalgia rheumatica) (H24) Decreased vision of right eye Right temporal headache Neck pain [facility] [address] [place] [address] Referral ID Status Reason Start Date Expiration Date Visits Re quested Visits Authorized [id number] 1 1 Encounter Details Date Type Department Care Team (Late st Contact Info) Description 03/25/2024 2:00 PM CDT - 03/25/2024 3:10 PM CDT Surgery [facility]iOp Services [address] [place] [address] Richie Hawk, DO [address] [facility] ISAIAS CARDENAS [id number] Bilateral temporal Artery Biopsy Surgery Details Date/Time Status Location OR Service Patient Class Case Class Case Type Trauma Case? 03/25/24 2:00 PM Posted [facility] OR 19 General Inpatient NEST 5 - Semi-Urge nt (within 48hrs) Panel 1 Procedure [facility]RB Anes Op Region Wound Class Comments Bilateral temporal Artery Biopsy Bilateral General Head I-Clean EBL: 10ML Surgeon Surgeon Role Service Panel Chivo-Richie Kelly DO Primary General 1 Breann Horn MD Resident - Assisting 1 Kristel Simeon MD Resident - Assisting Senior Systems Developer Amanda leigh 1 documented in this encounter Social History Tobacco [...] Sign Reading Time Taken Comments Blood Pressure 163/69 03/25/2024 2:28 PM CDT Pulse 68 03/25/2024 2:28 PM CDT Temperature 36.5 ??C (97.7 ??F) 03/25/2024 2:28 PM CD T Respiratory Rate 18 03/25/2024 2:28 PM CDT Oxygen Saturation 95% 03/25/2024 2:28 PM CDT Inhaled Oxygen Concentration - - Weight 69.2 kg (152 lb 8 oz) 03/25/2024 8:24 AM CDT Height 152.4 cm (5') 03/23/2024 8:57 PM CDT Body Mass Index 30.13 03/23/2024 8:57 PM CDT documented in this encounter Discharge Summaries * Corinna Eller MD - 03/26/2024 6:45 PM CDT [facility] Discharge Summary - Medicine & Pediatrics Date of Admission: 03/22/2024 Date of Discharge: 03/26/2024 6:45 PM Discharging Provider: Dr. Luz Yuan Discharge Service: Medicine Service, [facility] TEAM 3 Discharge Diagnoses Blurry vision Head/neck [...] Follow-ups Needed After Discharge Follow-up Appointments Adult [facility] Follow-up and recommended labs and tests Follow up with primary care provider, Feliciano Uribe, within 7 days to evaluate medication change, to evaluate treatment change, to evaluate after surgery, for hospital follow- up, and regarding new diagnosis. The following labs/tests are recommended: BMP and CBC. Follow up with rheumatology at your scheduled appointment Appointments on [place] and/or [facility] (with [facility] or [facility] provider or service). Call [phone] if you haven't heard regarding these appointments [...] and hypotension since admission. Will gradually resume BOBBIN DISKER hypertensive medications. 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 - BOBBIN DISKER amlodipine 5mg daily and lisinopril 10mg BID - BOBBIN DISKER metoprolol tartrate 25mg BID - may also consider hydrochlorothiazide for treatment of steroid-induced HTN if necessary #Graves Disease - BOBBIN DISKER levothyroxine #Unilateral RLE swelling (resolved) On admission, [...] discussed with Dr. Kwabena Eller MD, PhD [place] [address] Medicine Service [facility] ONCOLOGY [address] [facility] [address] Physical Exam Vital Signs: Temp: 98.1 ??F [...] Physician Feliciano Uribe Discharge Orders Physical Therapy Garment Sorter Referral Reason for your hospital stay You [...] activity upon discharge: activity as tolerated Adult [facility] Follow-up and recommended labs and tests Follow up with primary care provider, Feliciano Uribe, within 7 days to evaluate medication change, to evaluate treatment change, to evaluate after surgery, for hospital follow- up, and regarding new diagnosis. The following labs/tests are recommended: BMP and CBC. Follow up with rheumatology at your scheduled appointment Appointments on [place] and/or [facility] (with [facility] or [facility] provider or service). Call [phone] if you haven't heard regarding these appointments [...] Head w/o Contrast Narrative EXAM MRA BRAIN (NINILCHIK OF GREGORIO) W/O CONTRAST 03/22/2024 4:41 PM HISTORY: Headache; r/o Giant cell/temporal arteritis; Age > 50 years; No visual symptoms COMPARISON: None TECHNIQUE: Using a 3D hxcf-qc-trspzf image acquisition technique, MRA of the major [...] Cristina?reina VS , Jushraddha A, Rangel S, Michaud A, [place]. Ultrasound cut-off values for intima-media thickness of temporal, facial and axillary arteries in giant cell arteritis. Rheumatology 2017;56:1479?83. IMT CUT-OFF VALUES COMMON TEMPORAL ARTERY: 0.42 mm FRONTAL BRANCH: 0.34 mm PARIETAL BRANCH: 0.29 mm MICHAEL DUENAS MD Echo Complete Value LVEF 60-65% Narrative [id number]^SOFYNELSON^MARGARITA [facility] [address] [place] [address] Name: GATO PARTIDA Yesy : 1945 Study Date: 03/23/2024 07:53 AM Age: 78 yrs Gender: Female Patient Location: [facility] Reason For Study: Syncope Ordering Physician: MARGARITA SAWYER Performed By: Priscila Mann RDCS BSA: 1.6 m2 Height: 60 in Weight: 149 lb BP: 94/48 mmHg Procedure Complete Portable Echo Adult. Contrast Optison. Echocardiogram with two- dimensional, color and spectral Doppler performed. Optison ([facility] #[id number]) given intravenously. Patient was given 5 ml [...] every 30 days, Historical D3-50 1.25 MG (72968 UT) capsule Take 1,250 mcg by mouth [...] mcg every 30 days D3-50 1.25 MG (52909 UT) capsule Take 1,250 mcg by mouth [...] finding: issues found L temporal area surgical incision,RICHIE. R temporal area surgical incision with pressure dressing on, generalized mild swelling. Scattered bruises on both FA. Interventions/actions: other none Will continue to monitor. * Mikhail Leon MD - 03/25/2024 11:37 AM CDT [facility] Progress Note - Medicine Service, [facility] TEAM [...] and hypotension since admission. Will gradually resume BOBBIN DISKER hypertensive medications. 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 On 03/23 exam, extremities appear symmetric. - DVT US on 03/22 negative Diet: NPO per Anesthesia Guidelines for Procedure/Surgery Except for: Meds DVT Prophylaxis: ambulating, mechanical VTE prophylaxis Meery Catheter: Not present Fluids: LR 100mL/hr maintenance [...] Yuan . Mikhail Leon MD Medicine Service, [facility] TEAM [address] [place] [address] Securely message with uma information technology (more info) Text page via [facility] Paging/Directory See signed in provider for [...] I saw the patient): 03/25/24 * Alba Morrow PT - 03/25/2024 9:25 AM CDT 03/25/24924 Appointment Info Signing Clinician's Name / Credentials (PT) Alba Morrow PT, DPT Living Environment People in Home spouse Current Living Arrangements house Home Accessibility no concerns Transportation Anticipated family or friend will provide Living Environment Comments Pt lives in a single level home w/ . SO and Gato are retired. Has good additional family/friend support. Pt has walk in shower. Self-Care Usual Activity Tolerance good Current Activity Tolerance moderate Regular Exercise Yes Activity/Exercise Type swimming (Fusion aqua class at [facility]) Exercise Amount/Frequency 3-5 times/wk Equipment [...] (include personal factors and/or comorbidities that impact thePO) Pt is a 78 year old female [...] Evaluation Time PT Eval, Low Complexity Minutes (99456) 18 PT Discharge Planning PT Plan Ambulate [...] OT - 03/25/2024 9:22 AM CDT 03/24/24 9935 Appointment Info Signing Clinician's Name / Credentials [...] IADLs, pt does not drive. A from [facility]. General Information Onset of Illness/Injury or Date [...] Pt reports sometimes not being able to lift/kick boxer a coffee cup. Coordination Coordination Comments Per chart, pt reports coordination deficits with movement Bed Mobility Comment (Bed Mobility) Pt SBA with bed mobility Transfers Transfers sit-stand transfer;toilet transfer;shower transfer Sit-Stand Transfer Sit-Stand [place] (Transfers) contact guard Shower Transfer Type (Shower Transfer) lateral [place] Level (Shower Transfer) modified independence Assistive Device (Shower Transfer) grab bar, tub rail Shower Transfer Comments Per clinical judgement Toilet Transfer Type (Toilet Transfer) sit-stand;stand-sit [place] Level (Toilet Transfer) modified independence Assistive Device (Toilet Transfer) grab bars/safety frame Balance Balance Comments Per chart pt reports LOB primarily with activities that involve bending over Activities of Daily Living BADL Assessment/Intervention bathing;lower body dressing;grooming;toileting Bathing Assessment/Intervention [place] Level (Bathing) minimum assist (75% patient effort) Comment, (Bathing) Per clinical judgement Lower Body Dressing Assessment/Training Comment, (Lower Body Dressing) Per clinical judgement [place] Level (Lower Body Dressing) minimum assist (75% patient effort) Grooming Assessment/Training [place] Level (Grooming) minimum assist (75% patient effort) Comment, (Grooming) Per clinical judgement, pt reports on days that fluctuates symptoms, pt not able to get UE's over head Toileting Comment, (Toileting) Per clinical judgement [place] Level (Toileting) modified independence Clinical Impression Criteria [...] Evaluation Time OT Eval, Low Complexity Minutes (75210) 5 OT Goals Therapy Frequency (OT) 6 [...] Therapeutic Activity Therapeutic Activities Therapeutic Activity Minutes (91458) 25 Symptoms noted during/after treatment dizziness;fatigue Treatment [...] for 5 days until follow-up with her filler block inserter remover on 03/20/24 when she was seen and [...] to follow closely while inpatient. Please contact buffing turner and counter business applications analyst with any questions or concerns. We appreciate your care of this patient. Jorge Kelly MD Resident Physician, PGY-2 Department of Ophthalmology 03/25/2024 11:02 AM HISTORY OF PRESENTING ILLNESS: Gtao Partida is a 78 year old female [...] Normal Additional Tests Color Right Left Ishihara 05/10 05/10 05/10 OU by book 10.5/11 OD, 10 OS by phone syed Slit Lamp and [...] Snyder MD - 03/24/2024 2:22 PM CDT [facility] Progress Note - Medicine Service, [facility] TEAM [...] - start prophylactic bactrim for PJP UTI 2/ E coli Urine culture collected on 03/22 [...] and hypotension since admission. Will gradually resume BOBBIN DISKER hypertensive medications. 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 Verona Snyder MD Medicine Service, [address] Securely message with uma information technology ([employer] info) Text page via [facility] Paging/Directory See signed in provider for [...] for 5 days until follow-up with her filler block inserter remover on 03/20/24 when she was seen and [...] to follow closely while inpatient. Please contact buffing turner and counter business applications analyst with any questions or concerns. We appreciate your care of this patient. Lamont Canales MD, PGY2 Ophthalmology Resident [facility] HISTORY OF PRESENTING ILLNESS: Gato Partida is [...] R forearm, bx site in R thigh. [facility] Nurse Consult Ordered NO. Bed Algorithm can be found in PCS flow sheets (Support Surface Algorithm) and on IP [facility] NURSE RESOURCE TAB, was this used during this assessment? NO P: Continue to monitor patient???s Status and intervene as needed. Continue with plan of care. Notify MD with any concerns or changes in patient status. * Shanda Reid MD - 03/23/2024 7:44 PM CDT [facility] Neurology Consultation - Progress Note Patient Name: [...] not hesitate to callwith questions/concerns (consult pager [phone]). Patient was seen and discussed with Dr. [...] Snyder MD - 03/23/2024 1:36 PM CDT [facility] Progress Note - [facility] Date of Admission: 03/22/2024 Assessment [...] chest without evidence of GCA - restart BOBBIN DISKER lisinopril #Blurry vision #Head/neck pain #Possible giant [...] and hypertensive on 03/23. Will gradually resume BOBBIN DISKER hypertensive medications. 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 Verona Snyder MD Medicine Service, [facility] TEAM [address] [place] [address] Securely message with uma information technology (more info) Text page via [facility] Paging/Directory See signed in provider for [...] Head w/o Contrast Narrative EXAM MRA BRAIN (NINILCHIK OF GREGORIO) W/O CONTRAST 03/22/2024 4:41 PM HISTORY: Headache; r/o Giant cell/temporal arteritis; Age > 50 years; No visual symptoms COMPARISON: None TECHNIQUE: Using a 3D ldwl-xu-xlbzgd image acquisition technique, MRA of the major [...] Echo Complete Result Value LVEF 60-65% Narrative [id number]^DIGNA^MARGARITA [facility] [address] [place] [address] Name: GATO PARTIDA : 1945 Study Date: 03/23/2024 07:53 AM Age: 78 yrs Gender: Female Patient Location: [facility] Reason For Study: Syncope Ordering Physician: MARGARITA SAWYER Performed By: Priscila Mann RDCS BSA: 1.6 m2 Height: 60 in Weight: 149 lb BP: 94/48 mmHg Procedure Complete Portable Echo Adult. Contrast Optison. Echocardiogram with two- dimensional, color and spectral Doppler performed. Optison ([facility] #[id number]) given intravenously. Patient was given 5 ml [...] for 5 days until follow-up with her filler block inserter remover on 03/20/24 when she was seen and [...] to follow closely while inpatient. Please contact buffing turner and counter business applications analyst with any questions or concerns. We appreciate your care of this patient. Lamont Canales MD, PGY2 Ophthalmology Resident [facility] HISTORY OF PRESENTING ILLNESS: Gato Partida is [...] Full Additional Tests Color Right Left Ishihara 6/11 6/11 Slit Lamp and Fundus Exam External Exam [...] interpretation and I agree with the findings. ATMERA ANTHONY MD Lamont Canales MD Resident Physician, [...] Service (when I saw the patient): 03/22/24 [facility] History and Physical - Medicine Service, [facility] TEAM 3 Date of Admission: 03/22/2024 Assessment [...] - DVT US ordered #HTN - hold BOBBIN DISKER amlodipine, metoprolol, and lisinopril #Graves Disease - BOBBIN DISKER levothyroxine Diet: regular diet now, NPO at [...] . Yobani Guzman Medical Student Medicine Service, [address] Securely message with uma information technology (more info) Text page via [facility] Paging/Directory See signed in provider for [...] Informant Patient Reported? Taking? D3-50 1.25 MG (60014 UT) capsule Yes No Sig: Take 1,250 [...] Galo MD - 03/24/2024 2:45 PM CDT [facility] Rheumatology IP Consult Consult for: GCA ASSESSMENT [...] Dr. Paras Rodríguez MD PGY-4 Rheumatology Fellow [phone] [text page] History of Present Illness Gato [...] or diarrhea. No results found for: HBCAB, [id number], HCABC, HCVAB, TBRES Immunization History Administered Date(s) [...] Received from [facility] [place] [facility] [employer] [facility] - Occupational Stress Questionnaire Feeling of Stress : Only a little Social Connections: Socially Integrated (10/10/2022) Received from [facility] Social Connection and Isolation Panel [NHANES] Frequency of Communication with Friends and Family: Twice a week Frequency of Social Gatherings with Friends and Family: Twice a week Attends Baptism Services: More than 4 times per year [...] found for: ANCA No results found for: [id number] No results found for: Q1BWWBW No results found for: ANTONIA No results found for: DNA Lab Results Component Value Date SSAIGG Negative 10/18/2023 SSBIGG Negative 10/18/2023 No results found for: CCPABG, CCPABY, RF8, CARIA, ANCA, [id number], [id number], [id number], [id number] IMAGING: CTA Chest with Contrast Narrative: Exam: [...] the findings. CORINNA BERG MD Echo Complete [id number]^SOFYNELSON^MARGARITA [facility] [address] [place] [address] Name: GATO PARTIDA : 1945 Study Date: 03/23/2024 07:53 AM Age: 78 yrs Gender: Female Patient Location: [facility] Reason For Study: Syncope Ordering Physician: MARGARITA SAWYER Performed By: Priscila Mann RDCS BSA: 1.6 m2 Height: 60 in Weight: 149 lb BP: 94/48 mmHg Procedure Complete Portable Echo Adult. Contrast Optison. Echocardiogram with two- dimensional, color and spectral Doppler performed. Optison ([facility] #[id number]) given intravenously. Patient was given 5 ml [...] approved by: Angela Hernandez 03/23/2024 10:36 AM Data: Chart, labs and [...] CDTAssociated Order(s): SURGERY GENERAL ADULT IP CONSULT [facility] Consult Note - General Surgery Service Date [...] Telles. Christo Alicea MD General Surgery Resident [facility] Text page via [facility] Paging/Directory Chief Complaint Neck Pain History [...] by mouth at bedtime D3-50 1.25 MG (52007 UT) capsule Take 1,250 mcg by mouth [...] on RA Abd: soft, nondistended, nontender MSK: ROLANDO x4 Neuro: AAOx3, no focal cranial nerve [...] immediately available if needed. Teresa Telles MD rock loader Pager [phone] * Lincoln Carolina MD - 03/22/2024 3:49 PM CDTAssociated Order(s): NEUROLOGY GENERAL ADULT IP CONSULT [facility] Neurology Consultation Patient Name: Gato Partida : [...] Received from [facility] [place] [employer] - Occupational Stress Questionnaire Feeling of Stress : Only a little Social Connections: Socially Integrated (10/10/2022) Received from [facility] Social Connection and Isolation Panel [NHANES] Frequency of Communication with Friends and Family: Twice a week Frequency of Social Gatherings with Friends and Family: Twice a week Attends Baptism Services: More than 4 times per year [...] Housing Stability: Low Risk (10/10/2022) Received from [facility] Housing Stability Vital Sign Unable to [...] strength bilaterally in deltoids, biceps, triceps, hand kick boxer, hip flexors, hip extensors, knee flexion, knee [...] Range Hold Specimen JIC Extra Green Top ([place] Heparin) Tube Collection Time: 03/22/24 8:45 AM [...] Rate 70 BPM Atrial Rate 70 BPM IA Interval 130 ms QRS Duration 84 ms QT 394 ms QTc 425 ms P [place] 19 degrees R AXIS 33 degrees T [place] 60 degrees Interpretation ECG Sinus rhythm Normal [...] Negative Ketones Urine Negative Negative mg/dL Specific [place] Urine 1.004 1.003 - 1.035 Blood Urine [...] not hesitate to callwith questions/concerns (consult pager [phone]). Patient was seen and discussed with Dr. [...] 2:26 PM CDTAssociated Order(s): RHEUMATOLOGY IP CONSULT [facility] Rheumatology IP Consult Consult for: GCA ASSESSMENT [...] Dr. Paras Rodríguez MD PGY-4 Rheumatology Fellow [phone] [text page] History of Present Illness Gato [...] or diarrhea. No results found for: HBCAB, [id number], HCABC, HCVAB, TBRES Immunization History Administered Date(s) [...] Insecurity: No Food Insecurity (10/10/2022) Received from [facility] Hunger Vital Sign Worried About Running [...] Received from [facility] [place] [employer] - Occupational Stress Questionnaire Feeling of Stress : Only a little Social Connections: Socially Integrated (10/10/2022) Received from [facility] Social Connection and Isolation Panel [NHANES] Frequency of Communication with Friends and Family: Twice a week Frequency of Social Gatherings with Friends and Family: Twice a week Attends Baptism Services: More than 4 times per year [...] found for: ANCA No results found for: F5HNDVF No results found for: V2UMTOM No results found for: ANTONIA No results found for: DNA Lab Results Component Value Date SSAIGG Negative 10/18/2023 SSBIGG Negative 10/18/2023 No results found for: CCPABG, CCPABY, RF8, CARIA, ANCA, [id number], [id number], [id number], [id number] IMAGING: CTV Head Neck w Contrast RESIDENT [...] for 5 days until follow-up with her filler block inserter remover on 03/20/24 when she was seen and [...] Long- term management will fall to her filler block inserter remover and patient would likely benefit from Actemra if she is a candidate and her insurance will approve. Filipe Dickson MD Link Knitting Machine Operator, Neuro-Ophthalmology and Adult Strabismus Surgery Department of Ophthalmology and Visual Neurosciences [facility] Patient: Gato Partida ASSESSMENT/PLAN: Gato Partida is [...] Ok with MRA head and neck given EDGE MOLDER symptoms with headache and syncope, though defer [...] to follow closely while inpatient. Please contact buffing turner and counter business applications analyst with any questions or concerns. We appreciate your care of this patient. Luis Alberto Anderson MD, PGY3 Ophthalmology Resident [facility] HISTORY OF PRESENTING ILLNESS: Gato Partida is [...] PM Additional Tests Color Right Left Ishihara 15/16 16/16 Slit Lamp and Fundus Exam External Exam [...] arteritis. Triage Assessment (Adult) Row Name 03/22/24 0837 Triage Assessment Airway WDL WDL Respiratory WDL Respiratory WDL WDL Skin Circulation/Temperature WDL Skin Circulation/Temperature WDL WDL Cardiac WDL Cardiac WDL WDL Peripheral/Neurovascular WDL Peripheral Neurovascular WDL WDL Cognitive/Neuro/Behavioral WDL Cognitive/Neuro/Behavioral WDL WDL * Jona Sears MD - 03/22/2024 8:27 AM CDT ED Provider Note [facility] History Chief Complaint Patient presents with Neck [...] note, patient presented to the ED in [place] on 03/15 with stiffness on the right [...] head. After taking prednisone her symptoms improved. A And P Mechanic recommended that she present to the emergency [...] (LIPITOR) 10 MG tablet D3-50 1.25 MG (58713 UT) capsule FLUoxetine (PROZAC) 40 MG capsule [...] Course, Procedures, & Data Records are in [facility]. Patient seen by rheumatology on the Dr. [...] pain Rhythm: Normal sinus Rate: 70 bpm [place]: Normal Ectopy: None Conduction: Normal ST Segments/ [...] Contrast Status: None Narrative EXAM MRA BRAIN (NINILCHIK OF [place]) W/O CONTRAST 03/22/2024 4:41 PM HISTORY: Headache; r/o Giant cell/temporal arteritis; Age > 50 years; No visual symptoms COMPARISON: None TECHNIQUE: Using a 3D [id number]-du-[id number] image acquisition technique, MRA of the major [...] agree with the findings. TAMERA ANTHONY MD Adel Draw Status: None Narrative The following orders were created for panel order Adel Draw. Procedure Abnormality Status --------- ------ Extra Blue Top Tube[[id number]] Final result Extra Red Top Tube[[id number]] Final result Extra Green Top ([place]...[[id number]] Final result Extra Purple Top Tube[[id number]] Final result Please view results for these tests on the individual orders. Extra Blue Top Tube Status: None Result Value Ref Range Hold Specimen JIC Extra Red Top Tube Status: None Result Value Ref Range Hold Specimen JIC Extra Green Top ([place] Heparin) Tube Status: None Result Value Ref [...] Negative Ketones Urine Negative Negative mg/dL Specific [place] Urine 1.004 1.003 - 1.035 Blood Urine [...] Rate 70 BPM Atrial Rate 70 BPM IA Interval 130 ms QRS Duration 84 ms QT 394 ms QTc 425 ms P [place] 19 degrees R AXIS 33 degrees T [place] 60 degrees Interpretation ECG Sinus rhythm Normal ECG CBC with platelets differential Status: Abnormal Narrative The following orders were created for panel order CBC with platelets differential. Procedure Abnormality Status --------- ------ CBC with platelets and d...[[id number]] Abnormal Final result Please view results for these tests on the individual orders. Medications lidocaine 1 % 0.1-1 mL (has no administration in time range) lidocaine (LMX4) cream (has no administration in time range) sodium chloride (PF) 0.9% PF flush 3 mL (3 mLs Intracatheter $Given 03/22/24 1658) sodium chloride (PF) 0.9% PF flush 3 mL (has no administration in time range) ondansetron (ZOFRAN) injection 4 mg (has no administration in time range) methylPREDNISolone sodium succinate (solu-MEDROL) 1,000 mg in sodium chloride 0.9 % 283 mL intermittent infusion (1,000 mg Intravenous $New Bag 03/22/24 1655) pantoprazole (PROTONIX) 2 mg/mL suspension 40 mg [...] mcg (150 mcg Oral Not Given 03/22/24 1902) lisinopril (ZESTRIL) tablet 10 mg ( Oral Automatically Held 03/25/24 2000) metoprolol tartrate (LOPRESSOR) tablet 25 mg ( Oral Automatically Held 03/25/241999) sodium chloride 0.9% BOLUS 1,000 mL (0 mLs Intravenous Stopped 03/22/24 1151) gadobutrol (GADAVIST) injection 6.78 mL (6.7 mLs Intravenous $Given 03/22/24 1530) iopamidol (ISOVUE-370) solution 67 mL (67 mLs Intravenous $Given 03/22/24 1804) sodium chloride (PF) 0.9% PF flush 90 mL (90 mLs Intravenous $Given 03/22/24 180) Labs Ordered and Resulted from Time of [...] Bilirubin Urine Negative Ketones Urine Negative Specific [place] Urine 1.004 Blood Urine Negative pH Urine [...] temporal headache Neck pain Jona Sears MD [facility] 03/22/2024 This note was created at least in part by the use of [employer] voice dictation system. Inadvertent typographical errors may [...] goal(s). See goals on Care Plan in [facility] electronic health record for goal details. Goals [...] heart, but I have A.Fib. Not[facility] about duration of episode. Provider visited patient at bedside & noted regular rhythm upon assessment. No other symptoms noted. Prior to discharge patient reported heartburn or angina. Patient has reported history of angina & takes nitroglycerin. Patient given tums & reported relief. Patient reported another episodeof similar symptoms & notified business applications analyst primary team. Resident visited patient at bedside [...] Goal: Absence of Hospital-Acquired Illness or Injury 03/26/2024 172 by Ann Aquino RN Outcome: Met 03/26/20241720 [...] of Care Goal: Optimal Comfort and Wellbeing 03/26/2024 1721 by Ann Aquino RN Outcome: Met 03/26/2024 172 by Ann Aquino RN Outcome: Progressing Problem: Adult Inpatient Plan of Care Goal: Readiness for Transition of Care 03/26/2024 1721 by Ann Aquino RN Outcome: Met 03/26/2024 1721 by Ann Aquino RN Outcome: Progressing Problem: Risk for Delirium Goal: Optimal Coping 03/26/2024 172 by Ann Aquino RN Outcome: Met 03/26/2024 1721 by Ann Aquino RN Outcome: Progressing Intervention: [...] Surgical incision on left and right temporal, 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 Hematoma on R temporal. Labs/imaging: Reviewed, see chart. Plan: Possible discharge today. Continue to monitor and follow POC * Plan of Care - Latonya Osei RN - 03/26/2024 4:51 AM CDT Goal Outcome Evaluation: Pt A&O, VSS on RA, afebrile. Denies nausea, vomiting, or SOB. Hematoma on right side of head covered by pressure dressing. Incision RICHIE on left side of head. Pain managed with tylenol. Up with SBA. * Brief Op Note - Kristel Simeon MD - 03/25/2024 5:15 PM CDT [facility] Brief Operative Note Pre-operative diagnosis: Sudden visual [...] Artery, Temporal, Left SURGICAL PATHOLOGY EXAM Richie Hawk DO 03/25/2024 4:29 PM 2 : Right Temporal Artery Biopsy Biopsy Artery, Temporal, Right SURGICAL PATHOLOGY EXAM Richie Hawk NikosDO 03/25/2024 4:33 PM Findings: None. Complications: None. Implants: * No implants in log * Back to floor Regular diet Pain control Keep dressing in place on R side until tomorrow Rest of cares per primary team Kristel Simeon MD General Surgery, PGY2 * Op Note - Breann Horn MD - 03/25/2024 3:54 PM CDT Operative Note [facility] Pre-operative diagnosis: sudden visual loss of the [...] No implants in log * OPERATIVE INDICATIONS: Gato Partida is an 78Y F with a [...] entire procedure between opening and closing. Richie Hawk DO Date of Service (when I saw the patient): 03/25/24 * Plan of Care - Shoshana Jaimes RN - 03/25/2024 2:54 PM CDT Goal Outcome [...] 03/25/2024 3:46 AM CDT Goal Outcome Evaluation: [id number] Pt A&O, VSS on RA, afebrile. Denies nausea, vomiting, or SOB. Slight headache and no other pain. Numbness on right side, up with Ax1. Denied any pain when urinating. NPO at midnight. * Plan of Care - Diana Beltran - 03/24/2024 10:32 PM CDT Assumed care from: [[id number]] Vitals: BP (!) 145/63 Pulse 73 Temp [...] drink until 11am today. [facility] and notify MD if any other concerns. * Plan of Care - Liliam Garduno RN - 03/24/2024 1:58 AM CDT [id number] BP (!) 154/74 (BP Location: Left arm) [...] Care Reviewed With: patient A/Ox4, visited by buffing turner and counter who conducted bedside assessment, had echocardiogram done [...] eating well. Visited by family, continued on school lunch monitor. BP (!) 148/54 (BP Location: Left arm, [...] ??C) (Oral) Resp 20 SpO2 98% Time: 5075-7800 Patient is alert and oriented, SBA, C/o [...] Pertinent Information: Pt reported taking medications on [facility] medication list as directed, stated that she placed on Prednisone 20 mg tabs on March 15 for 5 days, which she took till Sunday, said she went to see her doctor and her doctor sent her here. Changes made to [facility] medication list: Added: Cyanocobalamin 1000 mcg/ml. Deleted: Prednisone 5 mg tabs. Changed: None Allergies reviewed with patient and updates made in EHR: yes Medication History Completed By: Elidia Beltran 03/23/2024 6:50 AM [facility] Med List Medication Sig Last Dose amLODIPine (NORVASC) 10 MG tablet Take 1 tablet by mouth daily at 2 pm 03/22/2024 at am amoxicillin (AMOXIL) 500 MG capsule TAKE 4 CAPSULES BY MOUTH 1 HOUR BEFORE DENTAL APPOINTMENT FOR 1DOSE at procedure only atorvastatin (LIPITOR) 10 MG tablet Take 10 mg by mouth at bedtime 03/21/2024 at hs D3-50 1.25 MG (43615 UT) capsule Take 1,250 mcg by mouth [...] Description 05/20/2024 9:30 AM CDT Virtual Visit [facility] [address] [facility] [address] [place] [phone] Zhane Crain MD [address] [place], [place] [phone] Richie Rowell, [facility]LY [facility] [address] [place] [address] 07/31/2024 2:00 PM SENIOR WATER RESOURCES ENGINEER Office Visit [facility] [address] [facility] [address] [place] [address] Christina Roe PA-C [address] [place] [address] Scheduled Referrals Name Type Priority Associated Diagnoses Orde r Schedule Physical Therapy Garment Sorter Referral Referral Routine: Next available opening Temporal [...] STAT 03/22/2024 4:42 PM CDT MRA BRAIN (NINILCHIK OF [place]) W/O CONTRAST STAT 03/22/2024 4:41 [...] - BLOOD ORDERABL ES Performing Organization Address City/[facility]/ZIP Co de Phone Number [facility] LAB[facility] [address] [facility], [address] * Erythrocyte sedimentation rate auto (03/26/2024 6:14 AM CDT) Erythrocyte Sedimentation Rate 6 0 - 30 mm/hr 03/26/2024 7:08 AM CDT [facility] Blood STRUCTURE OF LEFT HAND / Unknown Venipuncture / Unknown 03/26/2024 6:14 AM CDT 03/26/2024 6:23 AM CDT Kristel Simeon MD LAB - BLOOD ORDERABL ES Performing Organization Address City/[facility] Co de Phone Number [facility] [address] [facility], Room [address] [place] [address] * (ABNORMAL) Basic metabolic panel (03/26/2024 6:14 [...] LAB - BLOOD ORDERABL ES [facility] [address] [facility], [address] [place], [place] [phone] * (ABNORMAL) CBC with platelets (03/26/2024 [...] LAB - BLOOD ORDERABL ES [facility] [address] [facility], [address] [place] [address] * Surgical Pathology Exam (03/25/2024 4:29 PM CDT) Case Report Surgical Pathology Report ? Case: [id number] ? Authorizing Provider: ??Richie Dominguez ? Collected: [...] of giant cell arteritis. 03/26/2024 9:50 AM CDT [facility] Clinical Information The patient is [...] component of this testing was completed at [facility]. Stain controls for all stains resulted within this report have been reviewed and show appropriate reactivity. 03/26/2024 9:50 AM CDT [facility] Case Images 03/26/2024 9:50 AM CDT [facility] Biopsy STRUCTURE OF SUPERFICIAL TEMPORAL ARTERY / Unknown 03/25/2024 4:29 PM CDT 03/25/2024 5:08 PM CDT Specimen from unspecified body site obtained by biopsy (specimen) STRUCTURE OF SUPERFICIAL TEMPORAL ARTERY / Unknown 03/25/2024 4:33 PM CDT 03/25/2024 5:08 PM CDT Richie Hawk DO LAB - BE TERRY AMEZCUA [facility] Specialty Lab [address] [facility], [address], [place] [address] [facility] [address] [facility], [address] [place], [place] [address] * (ABNORMAL) CBC with platelets and differential [...] [facility] [address] [facility], [address] [address] * CRP inflammation (03/25/2024 5:54 AM CDT) CRP Inflammation <3.00 <5.00 mg/L 03/25/20 6:47 AM CDT [facility] Blood STRUCTURE OF LEFT UPPER LIMB / Unknown Venipuncture / Unknown 03/25/2024 5:54 AM CDT 03/25/2024 6:14 AM CDT Kristel Simeon MD LAB - BLOOD ORDERABL ES Performing Organization Address [facility] Co de Phone Number U [facility] [address] [facility], [address] [address] * Erythrocyte sedimentation rate auto (03/25/2024 5:54 AM CDT) Erythrocyte Sedimentation Rate 8 0 - 30 mm/hr 03/25/2024 7:01 AM CDT [facility] Blood STRUCTURE OF LEFT UPPER LIMB / Unknown Venipuncture / Unknown 03/25/2024 5:54 AM CDT 03/25/2024 6:14 AM CDT Kristel Simeon MD LAB - BLOOD ORDERABL ES [facility] [address] [facility], [address] [phone] * (ABNORMAL) Basic metabolic panel (03/25/2024 5:54 [...] LAB - BLOOD ORDERABL ES [facility] [address] [facility] [address] [facility], [address] [place] [address], [facility] * (ABNORMAL) CBC with platelets (03/24/2024 5:30 [...] LAB - BLOOD ORDERABL ES [facility] [address] [facility] [address] [facility], [address] [place] [address], [facility] * US Temporal Arteries Duplex (03/24/2024 3:02 [...] mm MICHAEL DUENAS MD Kristel Simeon MD [facility] ORDERABLES * CRP inflammation (03/24/2024 5:09 AM CDT) CRP Inflammation <3.00 <5.00 mg/L 03/24/20 5:48 AM CDT [facility] Blood STRUCTURE OF LEFT UPPER LIMB / Unknown Venipuncture / Unknown 03/24/2024 5:09 AM CDT 03/24/2024 5:15 AM CDT Kristel Simeon MD LAB - BLOOD ORDERABL ES Performing Organization Address City/[facility]/ZIP Co de Phone Number [facility] [address] [facility], [facility] [address] [address] * Erythrocyte sedimentation rate auto (03/24/2024 5:09 AM CDT) Pathologist [facility] Erythrocyte Sedimentation Rate 6 0 - 30 mm/hr 03/24/2024 6:23 AM CDT [facility] Blood STRUCTURE OF LEFT UPPER LIMB / Unknown Venipuncture / Unknown 03/24/2024 5:09 AM CDT 03/24/2024 5:15 AM CDT Kristel Simeon MD LAB - BLOOD ORDERABL ES [facility] [address] [facility], [address] [phone] * (ABNORMAL) Basic metabolic panel (03/24/2024 5:09 [...] LAB - BLOOD ORDERABL ES [facility] [address] [facility] [address] [facility], [address] [place] [address] * (ABNORMAL) CBC with platelets (03/24/2024 5:09 [...] LAB - BLOOD ORDERABL ES [facility] [address] [facility], [address] [place] [address] * Interleukin 6 Blood (03/23/2024 11:04 AM [...] patient management.

Assayed at [facility], [facility], [address] [place] [address] Margarita Sawyer MD LAB - BLOOD ORDERABL ES [facility] CYTOKINE LAB [facility] Cytokine Lab [address] [place] [address] Building [address] [place] [address] * CTA Chest with Contrast (03/23/2024 9:01 [...] AM CDT Narrative 03/23/2024 10:36 AM CDT [id number]^DIGNA^MARGARITA [facility] Echocardiography Laboratory [address] [place] [address] Name: GATO PARTIDA : 1945 Study Date: 03/23/2024 07:53 AM Age: 78 yrs Gender: Female Patient Location: [facility] Reason For Study: Syncope Ordering Physician: MARGARITA SAWYER Performed By: Priscila Mann RDCS BSA: 1.6 m2 Height: 60 in Weight: 149 lb BP: 94/48 mmHg Procedure Complete Portable Echo Adult. Contrast Optison. Echocardiogram with two- dimensional, color and spectral Doppler performed. Optison ([facility] #[id number]) given intravenously. Patient was given 5 ml [...] Procedure Note Malaika Dobbins MD - 03/23/2024 [id number]^DIGNA^MARGARITA [facility] Laboratory [address] [place] [address] Name: GATO PARTIDA : 1945 Study Date: 03/23/2024 07:53 AM Age: 78 yrs Gender: Female Patient Location: [facility] Reason For Study: Syncope Ordering Physician: MARGARITA SAWYER Performed By: Priscila Mann RDCS BSA: 1.6 m2 Height: 60 in Weight: 149 lb BP: 94/48 mmHg Procedure Complete Portable Echo Adult. Contrast Optison. Echocardiogram with two- dimensional, color and spectral Doppler performed. Optison ([facility]#[id number]) given intravenously. Patient was given 5 ml [...] <3.00 <5.00 mg/L 03/23/20 8:07 AM CDT [facility] Blood STRUCTURE OF RIGHT UPPER LIMB / Unknown Venipuncture / Unknown 03/23/2024 6:28 AM CDT 03/23/2024 7:35 AM CDT Kristel Simeon MD LAB - BLOOD ORDERABL ES LABORATORY [facility] [address] [facility], [address] * Erythrocyte sedimentation rate auto (03/23/2024 6:28 AM CDT) Erythrocyte Sedimentation Rate 10 0 - 30 mm/hr 03/23/2024 8:10 AM CDT [facility] Blood STRUCTURE OF RIGHT UPPER LIMB / Unknown Venipuncture / Unknown 03/23/2024 6:28 AM CDT 03/23/2024 7:21 AM CDT Kristel Simeon MD LAB - BLOOD ORDERABL ES LABORATORY [facility] [address] [facility], [address] * CBC with platelets (03/23/2024 6:28 AM CDT) WBC Count 7.2 4.0 - 11.0 10e3/uL [...] LAB - BLOOD ORDERABL ES [facility] [address] [facility], [address] [place] [phone] * (ABNORMAL) Basic metabolic panel (03/23/2024 6:28 [...] Comment:eGFR calculated usin 2020 CKD-EPI equation. Calcium 8.7(L) 8.8 - [...] LAB - BLOOD ORDERABL ES [facility] [address] [facility], [address] [address] * CTV Head Neck w Contrast (03/22/2024 [...] findings. XI BACON MD Jona Sears MD [facility] MRI ORDERABLES * MRA Angiogram Head w/o [...] 03/22/2024 8:38 PM CDT EXAM MRA BRAIN (NINILCHIK OF [place]) W/O CONTRAST 03/22/2024 4:41 PM HISTORY: Headache; r/o Giant cell/temporal arteritis; Age > 50 years; No visual symptoms COMPARISON: ??None TECHNIQUE: Using a 3D zyqk-qz-fncjoo image acquisition technique, MRA of the major [...] Bacon MD - 03/22/2024 EXAM MRA BRAIN (NINILCHIK OF [place]) W/O CONTRAST 03/22/2024 4:41 PM HISTORY: Headache; r/o Giant cell/temporal arteritis; Age > 50 years; No visual symptoms COMPARISON: None TECHNIQUE: Using a 3D qsmq-xu-wwimwg image acquisition technique, MRA of the major [...] findings. XI BACON MD Jona Sears MD [facility] MRI ORDERABLES * MR Brain and Orbits [...] findings. XI BACON MD Jona Sears MD [facility] MRI ORDERABLES * (ABNORMAL) Urine Culture (03/22/2024 [...] 9:44 AM CDT 03/22/2024 10:28 AM CDT oJna Sears MD LAB - MICRO GENERAL ORDERABLES [facility] IDD LABORATORY [facility] Inf. Diseases Diag. Lab [address] [facility], [address] [place] [phone] * (ABNORMAL) UA with Microscopic [...] 03/22/2024 10:28 AM CDT [facility] Specific [place] Urine 1.004 1.003 - 1.035 03/22/2024 10:28 [...] LAB - URINE ORDERAB LES [facility] [address] [facility], [address] * Lactic Acid Whole Blood with 1X Repeat in 2 HR when >2 (03/22/2024 9:27 AM CDT) Lactic Acid, Initial 1.4 0.7 - 2.0 mmol/L 03/22/2024 9:42 AM CDT [facility] Blood BLOOD SPECIMEN / Unknown Venipuncture / Unknown 03/22/2024 9:27 AM CDT 03/22/2024 9:40 AM CDT Jona Sears MD LAB - BLOOD ORDERAB LES [facility] [address] [facility], [address] * Erythrocyte sedimentation rate auto (03/22/2024 9:27 AM CDT) Erythrocyte Sedimentation Rate 4 0 - 30 mm/hr 03/22/2024 10:11 AM CDT [facility] Blood BLOOD SPECIMEN / Unknown Venipuncture / Unknown 03/22/2024 9:27 AM CDT 03/22/2024 9:41 AM CDT Jona Sears MD LAB - BLOOD ORDERAB LES [facility] [address] [facility] [address] [facility], [address] [phone] * EKG 12-lead, tracing only (03/22/2024 9:16 AM CDT) Pathologist [facility] Systolic Blood Pressure mmHg RADIOLOGY RESULTS Diastolic Blood Pressure mmHg RADIOLOGY RESULTS Ventricular Rate 70 BPM RAD IOLOGY RESULTS Atrial Rate 70 BPM RADIOLOG Y RESULTS IA Interval 130 ms RADIOLOG Y RESULTS QRS Duration 84 ms RADIOLO GY RESULTS QT 394 ms RADIOLOGY RESULTS QTc 425 ms RADIOLOGY RESULTS P [place] 19 degrees RADIOLOGY RESULTS R AXIS 33 degrees RADIOLOGY RESULTS T [place] 60 degrees RADIOLOGY RESULTS Interpretation ECG Sinus rhythm Normal ECG Unconfirmed report - interpretation of this ECG is computer generated - see medical record for final interpretation Confirmed by - EMERGENCY ROOM, PHYSICIAN ([id number]), legal editor DANIA SIMEON ([id number]) on 03/24/2024 6:54:51 AM RADIOLOGY RESULTS 03/22/2024 9:16 AM CDT 03/24/2024 6:54 AM CDT Jona Sears MD ECG ORDERABLES RADIOLOGY RESULTS * (ABNORMAL) CBC with platelets and differential (03/22/2024 8:45 AM CDT) Pathologist [facility] WBC Count 9.8 4.0 - 11.0 10e3/uL [...] LAB - BLOOD ORDERAB LES U LABORATORY [facility] Core Lab [address] [facility], [address] * TSH (03/22/2024 8:45 AM CDT) TSH 2.40 0.30 - 4.20 uIU/mL 03/22/2024 10:19 AM CDT [facility] Blood BLOOD SPECIMEN / Unknown Venipuncture / Unknown 03/22/2024 8:45 AM CDT 03/22/2024 9:23 AM CDT Jona Sears MD LAB - BLOOD ORDERAB LES Performing Organization Address [facility] de Phone Number LABORATORY [facility] Core Lab [address] [facility], [address] * Nt probnp inpatient (BNP) (03/22/2024 [...] U LABORATORY [facility] [address] [facility], [address] [phone] * Troponin T, High Sensitivity (03/22/2024 8:45 AM CDT) Troponin T, High Sensitivity 12 <=14 ng/L 03/22/2024 10:19 AM CDT [facility] Comment: Either a High Sensitivity Troponin [...] U LABORATORY [facility] [place] [address] [facility], [address] [phone] * Magnesium (03/22/2024 8:45 AM CDT) Magnesium 1.9 1.7 - 2.3 mg/dL 03/22/2024 10:19 AM CDT [facility] Blood BLOOD SPECIMEN / Unknown Venipuncture / Unknown 03/22/2024 8:45 AM CDT 03/22/2024 9:23 AM CDT Jona Sears MD LAB - BLOOD ORDERAB LES U [facility] [address] [facility], [address] [place] [address], [facility] * (ABNORMAL) Comprehensive metabolic panel (03/22/2024 8:45 [...] 10:19 AM CDT [facility] Comment:eGFR calculated us2020 CKD-EPI equation. Calcium 9.4 8.8 - 10.4 [...] [facility] [address] [facility], [address] * CRP inflammation (03/22/2024 8:45 AM CDT) CRP Inflammation <3.00 <5.00 mg/L 03/22/20 10:19 AM CDT [facility] Blood BLOOD SPECIMEN / Unknown Venipuncture / Unknown 03/22/2024 8:45 AM CDT 03/22/2024 9:23 AM CDT Jona Sears MD LAB - BLOOD ORDERAB LES [facility] [place] [facility] [address] [facility], [address] * INR (03/22/2024 8:45 AM CDT) INR 0.91 0.85 - 1.15 03/22/2024 9:50 AM CDT [facility] LABORATORY Blood BLOOD SPECIMEN / Unknown Venipuncture / Unknown 03/22/2024 8:45 AM CDT 03/22/2024 9:24 AM CDT Jona Sears MD LAB - BLOOD ORDERAB LES [facility] [place] [facility] [address] [facility], [address] [id number], [place] * Partial thromboplastin time (03/22/2024 8:45 AM CDT) aPTT 33 22 - 38 Seconds 03/22/2024 9:50 AM CDT U LABORATORY Blood BLOOD SPECIMEN / Unknown Venipuncture / Unknown 03/22/2024 8:45 AM CDT 03/22/2024 9:24 AM CDT Jona Sears MD LAB - BLOOD ORDERAB LES LABORATORY [facility] [place] [facility] [address] [facility], [address] * Extra Purple Top Tube (03/22/2024 8:45 AM CDT) Hold Specimen [facility] 03/22/2024 10:32 AM CDT U LABORATORY Blood BLOOD SPECIMEN / Unknown Venipuncture / Unknown 03/22/2024 8:45 AM CDT 03/22/2024 9:24 AM CDT Ramya Berry DO LAB - BLOOD ORDERABL ES Performing Organization Address City/[facility]/ZIP Co de Phone Number LABORATORY [facility] [place] [facility] [address] [facility], [address] * Extra Green Top ([place] Heparin) Tube (03/22/2024 8:45 AM CDT) Hold Specimen [facility] 03/22/2024 10:32 AM CDT U LABORATORY Blood BLOOD SPECIMEN / Unknown Venipuncture / Unknown 03/22/2024 8:45 AM CDT 03/22/2024 9:23 AM CDT Ramya Berry DO LAB - BLOOD ORDERABL ES LABORATORY [facility] [place] [facility] [address] [facility], [address] [address] [place] [address] * Extra Red Top Tube (03/22/2024 8:45 AM CDT) Hold Specimen [facility] 03/22/2024 10:46 AM CDT [facility] LABORATORY Blood BLOOD SPECIMEN / Unknown Venipuncture / Unknown 03/22/2024 8:45 AM CDT 03/22/2024 9:34 AM CDT Ramya Berry DO LAB - BLOOD ORDERABL ES U LABORATORY [facility] [place] [facility] [address] [facility], [address] [phone] * Extra Blue Top Tube (03/22/2024 8:45 AM CDT) Hold Specimen [facility] 03/22/2024 10:32 AM CDT [facility] LABORATORY Blood BLOOD SPECIMEN / Unknown Venipuncture / Unknown 03/22/2024 8:45 AM CDT 03/22/2024 9:24 AM CDT Ramya Berry DO LAB - BLOOD ORDERABL ES LABORATORY [facility] [place] [facility] [address] [facility], [address] [address] documented in this encounter Visit Diagnoses Diagnosis Urinary tract infection without hematuria, site unspecified- Primary Temporal arteritis Giant cell arteritis PMR (polymyalgia rheumatica) (H24) Polymyalgia rheumatica Decreased vision of right eye Right temporal headache Headache Neck pain Cervicalgia Temporal arteritis Giant cell arteritis Neck pain Cervicalgia PMR (polymyalgia rheumatica) (H24) Polymyalgia rheumatica Right temporal headache Headache Decreased vision of right eye Sudden visual loss of right eye Sudden visual loss documented in this encounter Administered Medications Inactive [...] on 03/22/24 at 1736 $Given 03/26/2024 5:40 P M CDT 1,000 mg FLUoxetine (PROzac) capsule 40 mg 40 mg, Oral, DAILY, First dose on 03/22/24 at 1800 $Given 03/26/2024 8:15 AM CDT 40 mg $Given 03/25/2024 8:24 AM CDT 40 mg $Given 03/24/2024 8:37 AM CDT 40 mg levothyroxine (SYNTHROID/LEVOTHROID) tablet 150 mcg 150 mcg, [...] mild pain with VAD insertion, Starting on Sun03/22/24 at 1736, MAX dose 1 mL subcutaneous [...] mL, BUPivacaine (MARCAINE) 0.25 % 30 mL PRN, Starting on Sun03/25/24 at 1645, Intra-procedure $Given 03/25/2024 4:45 PM CDT 4 mLs Other (see comments) lisinopril (ZESTRIL) tablet 10 mg 10 mg, [...] $Given 03/25/2024 6:55 PM CDT 500 mg ondansetron (ZOFRAN) injection 4 mg 4 mg, Intravenous, EVERY 30 MIN PRN, nausea, vomiting, Administer over 2-5 Minutes, Starting on Sun03/22/24 at 0902, For 3 doses, May repeat in 30 minutes as needed, up to 3 doses. $Given 03/25/2024 4:43 PM CDT 4 mg pantoprazole (PROTONIX) EC tablet 40 mg 40 mg, Oral, EVERY MORNING BEFORE BREAKFAST, First dose on Sun03/26/24 at 0730, DO NOT CRUSH. $Given 03/26/2024 8:13 AM CDT 40 mg predniSONE (DELTASONE) tablet 60 mg 60 mg, Oral, DAILY, First dose (after last modification) on Sun03/25/24 at 0800 $Given 03/26/2024 8:14 AM CDT 60 mg $Given 03/25/2024 8:26 AM CDT 60 mg senna-docusate (SENOKOT-S/PERICOLACE) 8.6-50 MG per tablet [...] or to lock dormant line, Starting on Sun03/22/24 at 1736 sodium chloride (PF) 0.9% PF flush 3 mL 3 mL, Intracatheter, EVERY 8 HOURS, First dose on Sun03/25/24 at 1900, to lock peripheral IV dormant line $Given 03/26/2024 4:33 AM CDT 3 mLs $Given 03/25/2024 7:36 PM CDT 3 mLs sulfamethoxazole-trimethoprim (BACTRIM DS) 800-160 MG per tablet [...] DAILY, First dose (after last modification) on Sun03/23/24 at 0100 0837 ($Given - Provider: Yue Clark RN) 0824 ($Given - Provider: Shoshana Jaimes RN)1250 [...] Infection 1725 ($New Bag - Provider: Nathaniel Rosenberg RN) cholecalciferol (VITAMIN D3) capsule 1,250 mcg 1,250 [...] receive a Nerve Block, verify order with Manager Property BEFORE administering. IMPORTANT: IF Patient ONLY receiving a TAP Block, Nursing does NOT need to verify order with Anesthesia, and can proceed with medication administration., Pre-procedure 1314 ($Given - Provider: Mayra Liz RN) FLUoxetine (PROzac) capsule 40 mg 40 mg, Oral, DAILY, First dose on 03/22/24 at 1800 0837 ($Given - Provider: Yue Clark RN) 0824 ($Given - Provider: Shoshana Jaimes RN)1250 (Auto Hold - Provider: Orders Generic Provider - Reason: Transfer to a procedural area)1834 (Unhold - Provider: Orders Generic Provider) 0815 ($Given - Provider: Shoshana Jaimes RN) lactated ringers BOLUS 500 mL (COMPLETED) Intravenous, [...] Oral, 2 TIMES DAILY, First dose on 03/22/24 at 2000 0837 ($Given - Provider: Yue Clark RN)1941 ($Given - Provider: Nathaniel Rosenberg RN) 0824 ($Given - Provider: Shoshana Jaimes RN)1250 (Auto Hold - Provider: Orders Generic Provider - Reason: Transfer to a procedural area)1834 (Unhold - Provider: Orders Generic Provider)1934 ($Given - Provider: Latonya Osei RN) 0814 ($Given - Provider: Shoshana Jaimes RN)1999 (Canceled Entry - Provider: Orders Generic Provider - Comment: Automatically canceled at discontinue of medication order) methylPREDNISolone sodium succinate (solu-MEDROL) 1,000 mg in sodium chloride 0.9 % 283 mL intermittent infusion (COMPLETED) 1,000 mg, Intravenous, Administer over 60 Minutes, at 283 mL/hr, EVERY 24 HOURS, First dose (after last modification) on Sun03/22/24 at 1615, For 3 days 1728 ($New Bag - Provider: Nathaniel Rosenberg, ALLYSON) metoprolol tartrate (LOPRESSOR) tablet 25 mg 25 [...] Generic Provider) 0813 ($Given - Provider: Shoshana Jaimes, [place]ON) pantoprazole (PROTONIX) IV push injection 40 mg (CANCELED) 40 mg, Intravenous, DAILY WITH BREAKFAST, First dose on Sun03/23/24 at 0800 0837 ($Given - Provider: Yue Clark, ALLYSON) 0824 ($Given - Provider: Shoshana Jaimes, [place]) predniSONE (DELTASONE) tablet 60 mg 60 mg, Oral, DAILY, First dose (after last modification) on Sun03/25/24 at 0800 0826 ($Given - Provider: Shoshana Jaimes, [place]ON)1250 (Auto Hold - Provider: Orders Generic Provider - Reason: Transfer to a procedural area)1834 (Unhold - Provider: Orders Generic Provider) 0814 ($Given - Provider: Shoshana Jaimes, [place]YSON) sodium chloride (PF) 0.9% PF flush 3 mL 3 mL, Intracatheter, EVERY 8 HOURS, First dose on Sun03/22/24 at 1740, to lock peripheral IV dormant line 0602 ($Given - Provider: Liliam Garduno, ALLYSON)1725 ($Given - Provider: Nathaniel Rosneberg, ALLYSON) 0443 ($Given - Provider: Latonya Osei RN)0825 [...] Latonya Osei RN) 0813 ($Given - Provider: Shosahna Jaimes, ALLYSON)1999 (Canceled Entry - Provider: Orders [...] Bel[place]) 0824 ($Given - Provider: Shoshana Jaimes, ALLYSON)1206 ($Given - Provider: Gayle Berry RN)1250 (Auto Hold - Provider: Orders Generic Provider - Reason: Transfer to a procedural area)1834 (Unhold - Provider: Orders Generic Provider) 0129 ($Given - Provider: Christina Velásquez RN)0826 ($Given - Provider: Shoshana Jaimes, [place]ON) calcium [...] mild pain with VAD insertion, Starting on 03/25/24 at 1843, MAX dose 1 mL subcutaneous [...] Orders Generic Provider)1855 ($Given - Provider: Jenna Pablo, ALLYSON) 0127 ($Given - Provider: Christina Velásquez, ALLYSON)1634 ($Given - Provider: Ann Aquino RN) ondansetron (ZOFRAN) injection 4 mg 4 mg, Intravenous, EVERY 30 MIN PRN, nausea, vomiting, Administer over 2-5 Minutes, Starting on 03/22/24 at 0902, For 3 doses, May repeat in 30 minutes as needed, up to 3 doses. 1250 (Auto Hold - Provider: Orders Generic Provider - Reason: Transfer to a procedural area)1643 ($Given - Provider: Saeed Yuen, ALLYSON)1834 (Unhold - Provider: Orders Generic Provider) ondansetron [...] PACU 1732 ($Given - Provider: Henrique Diaz, ALLYSON) prochlorperazine (COMPAZINE) injection 5 mg (CANCELED) 5 mg, Intravenous, EVERY 6 HOURS PRN, nausea, vomiting, Administer over 1-2 Minutes, Starting on Sun24 at 1732, This is Step 3 of [...] or to lock dormant line, Starting on Sun03/25/24 at 1843 Linked Groups Order Group 1: [...] nausea, Administer over 2-5 Minutes, Starting on 03/25/24 at 1732, For 2 doses, This is [...] stools. documented in this encounter Care Teams Fairground Operator Relationship Specialty Start Date End Date Feliciano Uribe MD [address] [address] PCP - General Family Medicine 06/01/23 Christina Roe PA-C [address] [place] [address] Physician Senior Systems Developer Rheumatology 11/06/23 Christina Roe PA-C [address] [place] [address] Assigned Rheumatology Provider 11/09/23 documented as of this encounter
--- OUTSIDE RECORDS SUMMARY | 2024-05-16 13:17 | XMS_ITS | Encounter Summary ---
Author Organization [facility] Address [address] [place] [address]. [place] [address] Care Team Providers Care Translator Name Role Phone Feliciano Uribe MD Primary Care Provider Christina Roe PA-C Unavailable Christina Roe PA-C Unavailable [phone] Reason for Referral * Consultation (Routine: Next available opening) - Pending Review Specialty Diagnoses / Procedures Referred By Amena prasad Referred To Contact Rheumatology Diagnoses GCA (giant cell arteritis) Zhane Crain MD [address] [place] [address] Referral ID Status Reason Start Date Expiration Date V isits Requested Visits Authorized [id number] Pending Review 03/24/2024 03/24/2025 1 1 Question Answer Reason for Referral: Other My Clinical Question Is: GCA, started on prednisone taper, plan to start tocilizumab as outpatient - Plan to FU with Dr Gregg on April 17 at 12:30PM Scheduling Instructions: [facility] Rheumatology Size Marker will call you to coordinate your care as prescribed by your provider. A patient registration representative will call you within 1 business day to help schedule your appointment, or you may contact the Size Marker Brick Setter Operator at [phone]. Comments Please be aware that coverage of these services is subject to the terms and limitations of your health insurance plan. Call member services at your health plan with any benefit or coverage questions. [facility] Rheumatology Size Marker will call you to coordinate your care as prescribed by your provider. A patient registration representative will call you within 1 business day to help schedule your appointment, or you may contact the Size Marker Brick Setter Operator at [phone]. * Med Therapy Management (Routine: Next available opening) - Pending Review Specialty Diagnoses / Procedures Referred By Amena prasad Referred To Contact Pharmacist Diagnoses GCA (giant cell arteritis) Zhane Crain MD [address] [place] [id number] Referral ID Status Reason Start Date Expiration Date V isits Requested Visits Authorized [id number] Pending Review 03/24/2024 03/24/2025 1 1 Question Answer Type of MTM: Specialty Specialty: Rheumatology Course of Action: Other Reason for Referral: 78 yo f with GCA and PMR, on prednisone taper, plan to start on tocilizumab, kindly follow up Comments [facility] Medication Therapy Management department will contact you to schedule an appointment. You may also schedule the appointment by calling or toll-free at . This service is designed to help you get the most from your medications. A specially trained Pharmacist will work closely with you and your providers to solve any questions, concerns, issues or problems related to your medications. Please bring all of your prescription and non-prescription medications (such as vitamins, [id number] medications, and herbals) or a detailed medication list to your appointment. If you have a glucose meter or other home monitoring information, please also bring this to your appointment (i.e. blood glucose log, blood pressure log, pain log, etc.). Encounter Details Date Type Department Care Team ([facility] st Contact Info) Description 03/24/2024 Orders Only [facility] [address] [address] Ashwin Galo MD [address] [place] [id number] Temporal arteritis (H) (Primary Dx); GCA (giant cell arteritis) (H) Social History Tobacco Use Types Packs/Day Years [...] Description 05/20/2024 9:30 AM CDT Virtual Visit [facility] [address] [facility] [address] [place] [phone] Zhane Crain MD [address] [place] [address] Richie Rowell, [facility] [address] [place] [address] 07/31/2024 2:00 PM CARTOGRAPHIC DRAFTER Office Visit [facility] [address] [place] [phone] Christina Roe PA-C [address] [place] [address] Scheduled Referrals Name Type Priority Associated Diagnoses Order Schedule Med Therapy Management Referral Referral Routine: Next available opening GCA (giant cell arteritis) (H) Ordered: 03/24/2024 Adult Rheumatology Size Marker Referral Referral Routine: Next available opening GCA (giant cell arteritis) (H) Expected: 03/24/2024 (Approximate), Expires: 03/24/2025 documented as of this encounter Visit Diagnoses Diagnosis Temporal arteritis- Primary Giant cell arteritis GCA (giant cell arteritis) Giant cell arteritis documented in this encounter Care Teams Translator Relationship Specialty Start Date End Date Feliciano Uribe MD [facility] [address] [place] [address] PCP - General Family Medicine 06/01/23 Christina Roe PA-C [address] [place] [address] Physician Ring Spinner Rheumatology 11/06/23 Christina Roe PA-C [address] [place] [address] Assigned Rheumatology Provider 11/09/23 documented as of this encounter
--- OUTSIDE RECORDS SUMMARY | 2024-05-16 13:18 | XMS_ITS | Clinical Summary ---
Author Organization [facility] Address [address] [place] [address] Care Team Providers Care Supervisor Bridges And Buildings Name Role Phone Unavailable Primary Care Provider Unavailabl e Source Comments Patient records contain information from all sites at [facility]. For routine questions regarding patient records, call [phone] during business hours, M-F 8:00 AM - 5:00 PM Central Time. Record requests for emergency care only can be directed to [phone] at any time.[facility] Allergies No known active allergies Medications Medication [...] often do you attend chur ch or yarsanism services? More than 4 times per year 10/10/2022 Do you belong to any clubs o r organizations such as sikh groups, unions, fraternal or athletic groups, or [...] and heating? Not hard at all 10/10/2022 [facility] Occupat ional [facility] - Occupational Stress [...] place to sleep or slept in a chcf (including now)? No 10/10/2022 Nutrition Answer Date [...] Sex Assigned at Female 10/10/2022 4:07 PM MANAGER PAYMENT Gender Identity Female 07/16/2018 12:55 PM MANAGER PAYMENT Sexual Orientation Straight 07/16/2018 12 :55 PM MANAGER PAYMENT Last Filed Vital Signs Vital Sign Reading Time Taken Comments Blood Pressure 163/73 10/31/2022 12:17 PM MANAGER PAYMENT Pulse 75 10/31/2022 12:17 PM MANAGER PAYMENT Temperature 36.5 ??C (97.7 ??F) 10/31/2022 1 2:27 PM MANAGER PAYMENT Respiratory Rate 20 10/31/2022 12:1 7 PM MANAGER PAYMENT Oxygen Saturation 96% 10/31/2022 12: 17 PM MANAGER PAYMENT Inhaled Oxygen Concentration - - Weight 55.2 kg (121 lb 11.1 oz) 11/01/2022 9:18 AM MANAGER PAYMENT Height 152 cm (4' 11.84) 11/01/2022 9:18 AM MANAGER PAYMENT Body Mass Index 23.89 11/01/2022 9:18 AM MANAGER PAYMENT Plan of Treatment Health Maintenance Due Date Last Done Comments Hepatitis C Screening 1945 Hepatitis A Vaccines (1 of 2 - Risk 2-dose series) 1965 Zoster Vaccines (1 of 2) 1996 Hepatitis B Vaccines (1 of 3 - Risk 3-dose series) 2006 Office Visit for Blood Press ure Check / Re-check 01/14/2023 10/17/2022 Thyroid Stimulating Hormone (TSH) test for thyroid function 07/26/2023 07/26/2022, 06/23/2019, 09/24/2018, Additional history exists Depression Screening (Annual PHQ-2) 08/27/2023 Fall Risk Screen (Annual) 08/27/2023 Creatinine Level (Kidney Fun ction Test) 10/17/2023 10/17/2022, 07/27/2022, 07/26/2022, Additional history exists Potassium Level 10/17/2023 10/17/2022, 12/0 08/2021, 07/26/2022, Additional history exists Sodium Level 10/17/2023 10/17/2022, 06/29, 07/23/2022, Additional history exists COVID-19 Vaccine (4 - 2022-2 4 season) 2024 05/14/2022, 11/12/2020, 10/15/2020 Influenza Vaccine (#1) 2024 , 07/19/2021, 06/21/2020, [...] FIT Discontinued Medical Devices Implanted Type Area Alcoholic Counselor Device Identifier Shelf Expiration Date Model / Serial / Lot Knee Implant- 022 Implanted:01/2022 (Quantity not on file) Knee Implant Right: Knee Ocular Lens Ocular Lens Bilatera l: Eye Procedures Procedure Name Priority Date/Time Associated Diagnosis Comments COMPREHENSIVE METABOLIC PANEL, S/P Routine 10/17/2022 10:01 AM MANAGER PAYMENT 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, S Routine 06/23/2019 10:25 AM CDT Overweight Body Mass Index 25-29.9 Adult Hypertension Essential Primary Hyperlipidemia Family History Coronary Artery Disease Elevated Liver Enzyme Abnormal, Aspartate Transaminase, Serum Glutamic-Oxaloacetic Transaminase, Alanine Transaminase Hypothyroidism Primary from Last 3 Months or Most Recently Relevant to Health Maintenance Results * Comprehensive Metabolic Panel (10/17/2022 10:01 AM MANAGER PAYMENT) Potassium, S 4.5 3.6 - 5.2 mmol/L 10/17/2022 11:02 AM MANAGER PAYMENT DTL Sodium, S 141 135 - 145 mmol/L 10/17/2022 11:02 AM MANAGER PAYMENT DTL Chloride, S 106 98 - 107 mmol/L 10/17/2022 11:02 AM MANAGER PAYMENT DTL Bicarbonate, S 26 22 - 29 mmol/L 10/17/2022 11:02 AM MANAGER PAYMENT DTL Anion Gap 9 7 - 15 10/17/2022 11:02 AM MANAGER PAYMENT DTL BUN (Blood Urea Nitrogen), S 12 6 - 21 mg/dL 10/17/2022 11:02 AM MANAGER PAYMENT DTL Creatinine 0.59 0.59 - 1.04 mg/dL 10/17/2022 11:02 AM MANAGER PAYMENT DTL Estimated GFR (eGFR) >90 >=60 mL/min/BS A 10/17/2022 11:02 AM MANAGER PAYMENT DTL Comment: Estimated GFR calculated using the 2020 CKD_EPI creatinine equation. Calcium, Total, S 9.7 8.8 - 10.2 mg/dL 10/17/2022 11:02 AM MANAGER PAYMENT DTL Glucose, S 100 70 - 140 mg/dL 10/17/2022 11:02 AM MANAGER PAYMENT DTL Protein, Total, S 6.8 6.3 - 7.9 g/dL 10/17/2022 11:02 AM MANAGER PAYMENT DTL Albumin, S 4.5 3.5 - 5.0 g/dL 10/17/2022 11:02 AM MANAGER PAYMENT DTL Aspartate Aminotransferase (AST), S 23 8 - 43 U/L 10/17/2022 11:02 AM MANAGER PAYMENT DTL Alkaline Phosphatase, S 83 35 - 104 U/L 10/17/2022 11:02 AM MANAGER PAYMENT DTL Alanine Aminotransferase (ALT), S 23 7 - 45 U/L 10/17/2022 11:02 AM MANAGER PAYMENT DTL Bilirubin, Total, S 0.3 <=1.2 mg/dL 10/17/2022 11:02 AM MANAGER PAYMENT DTL Blood (Blood, Venous) 10/17/2022 10:01 AM MANAGER PAYMENT 10/17/2022 10:38 AM MANAGER PAYMENT Merlyn Cobos M.D. LAB BLO OD ADD-ON [facility] [address] [place] [address], [facility] [address] [place] [address] * (ABNORMAL) Thyroid Function [place] (06/23/2019 10:25 AM CDT) TSH, Sensitive 6.0(H) 0.3 - 4.2 mIU/L 06/24/2019 8:43 AM CDT DTL Blood (Blood, Venous) 06/23/2019 10:25 AM CDT 06/24/2019 7:34 AM CDT Narrative Resulting Agency Comment Mailed In Specimen Sony A Jennifer BEAN C.N.P., D.N.P. LAB BLOOD ADD-ON [facility] [address] [place] [address], [place] DTL [facility] [address] [place] [address] from Last 3 Months or Most Recently Relevant to Health Maintenance
--- OUTSIDE RECORDS SUMMARY | 2024-05-16 13:18 | XMS_ITS | Clinical Summary ---
Author Organization [facility] Address [address] [place] [address] Care Team Providers Care Welding Manager Name Role Phone Feliciano Uribe MD Primary Care Provider + [phone] Source Comments You are receiving this document as you are listed as the primary care provider,follow-up provider, or the patient has been referred to you for consultation.This is in compliance with the Medicare and[facility] EHR Incentive Program,which states Providers who transition their patient to another setting of careor provider of care or refers their patient to another provider of care shouldprovide summary care record for each transition of care or referral. [employer] Allergies No known active allergies Medications Medication [...] a day. 03/27/2019 Active Cholecalciferol (VITAMIN D3) 83010 units TABS 03/27/2019 Active levothyroxine (SYNTHROID) 137 [...] every week. Take 30 minutes before first [id number] n. Avoid lying down for 30 minutes. [...] Zoster/Shingles (1 of 2) 1996 Dexa 2011 RSV (1 - 1-dose 75+ series) 2021 DTaP/Tdap/Td (4 - Tdap) 05/02/2022 05/02/20 12, 03/10/2005, 01/30/1980 COVID-19 Vaccine ( season) 2024 11/12/2020, 10/15/2020 Influenza (#1) 2024 06/21/2020, 11/0 09/2017, 05/02/2017, Additional history exists Pneumococcal 65+ Yrs [...] age to complete this topic Care Teams Welding Manager Relationship Specialty Start Date End Date Ailabouni, Feliciano D, MD [address] [place] [id number] PCP - General 02/17/19
--- OUTSIDE RECORDS SUMMARY | 2024-05-16 13:18 | XMS_ITS ---
Author Organization [facility] Address [address] [place] [address] Care Team Providers Care Sales Force Administrator Name Role Phone Unavailable Unavailable Unavailable Surgery Details Not on file Complications Check Surgery Details section. Procedure Estimated Blood Loss Check Surgery Details section. Procedure Findings Check Surgery Details section. Procedure Specimens Taken Check Surgery Details section.
--- OUTSIDE RECORDS SUMMARY | 2024-05-16 13:18 | XMS_ITS | Encounter Summary ---
Author Organization [place] Address [address] [place] [address]. [place] [address] Care Team Providers Care Environmental Health Safety Engineer Name Role Phone Feliciano Uribe MD Primary Care Provider Christina Roe PA-C Unavailable Christina Roe PA-C Unavailable [phone] Richie Rowell [facility] Unavailable Richie Rowell [facility] Unavailable Zhane Crain MD Unavailable Encounter Details Date Type Department Care Team (Late st Contact Info) Description 04/24/2013 Abstract [facility] [place] [facility] [address] [place] [phone] Iris Hernandez [facility] [address] [facility] [address] [place] [address] Social History Tobacco Use Types Packs/Day Years [...] Virtual Visit [facility] [address] [facility] [address] [place] [address] Zhane Crain MD [address] [place] [address] Richie Rowell RPH [address] [place] [address] 07/31/2024 2:00 PM SUPERVISOR COOK HOUSE Office Visit [facility] [address] [facility] [address] [place] [phone] Christina Roe PA-C [address] [place] [address] documented as of this encounter Visit Diagnoses Not on filedocumented in this encounter Care Teams Environmental Health Safety Engineer Relationship Specialty Start Date End Date Feliciano Uribe MD [address] [address] PCP - General Family Medicine 06/01/23 Christina Roe PA-C [address] [place] [address] Physician Customer Solutions Teammate Rheumatology 11/06/23 Christina Roe PA-C [address] [place] [address] Assigned Rheumatology Provider 11/09/23 Richie Rowell RPH [address] [place] [address] Pharmacist Pharmacist 04/08/24 Richie Rowell RPH [address] [place] [address] Assigned MTM Pharmacist 04/18/24 Zhane Crain MD [address] [place] [address] Physician Rheumatology 05/14/24 documented as of this encounter
--- OUTSIDE RECORDS SUMMARY | 2024-05-16 13:18 | XMS_ITS | Encounter Summary ---
Author Organization [place] Address [address] [place] [address] Care Team Providers Care Risk Developer Name Role Phone Feliciano Uribe MD Primary Care Provider [phone] Christina Roe PA-C Unavailable Christina Roe PA-C Unavailable [phone] Richie Rowell Just[facility] Unavailable Richie Rowell [facility] Unavailable Zhane Crain MD Unavailable Encounter Details Date Type Department Care Team (Late st Contact Info) Description 01/21/2024 [facility] [address] [place] [phone] Christina Roe PA-C [address] [place] [address] Social History Tobacco Use Types Packs/Day Years [...] 9:30 AM CDT Virtual Visit [facility] [address] [facility] [address] [place] [phone] Zhane Crain MD [address] [place] [address] Richie Rowell RPH [address] [place] [address] 07/31/2024 2:00 PM SHIP SCRAPER Office Visit [facility] [address] [facility] [address] [place] [phone] Christina Roe PA-C [address] [place] [address] documented as of this encounter Visit Diagnoses Not on filedocumented in this encounter Care Teams Risk Developer Relationship Specialty Start Date End Date Feliciano Uribe MD [facility] [address] [address] PCP - General Family Medicine 06/01/23 Christina Roe PA-C [address] [place] [address] Physician Popcorn Machine Operator Rheumatology 11/06/23 Christina Roe PA-C [address] [place] [address] Assigned Rheumatology Provider 11/09/23 Richie Rowell RPH [address] [place] [address] Pharmacist Pharmacist 04/08/24 Richie Rowell Justine [address] [place] [address] Assigned MTM Pharmacist 04/18/24 Zhane Crain MD [address] [place] [id number] Physician Rheumatology 05/14/24 documented as of this encounter
--- OUTSIDE RECORDS SUMMARY | 2024-05-16 13:18 | XMS_ITS | Clinical Summary ---
Author Organization [employer] [facility] [facility] Address [place], [place] [address] Care Team Providers Care Almond Roaster Name Role Phone Feliciano Uribe MD Primary Care Provider [phone] Allergies No known active allergies Medications Medication [...] 36.7 ??C (98 ??F) 07/27/2022 4:00 PM BOAT OUTFITTER Respiratory Rate 16 07/27/2022 4:00 PM BOAT OUTFITTER Oxygen Saturation 98% 12/11/2023 8:25 AM CDT Inhaled Oxygen Concentration - - Weight 65.5 kg (144 lb 4.8 oz) 12/11/2023 8:25 A M CDT Height 177.8 cm (5' 10) 07/22/2022 1:00 PM BOAT OUTFITTER Body Mass Index 20.7 07/22/2022 1:00 PM BOAT OUTFITTER Plan of Treatment Health Maintenance Due Date Last Done Comments Tdap 1957 Depression screening for age 12+ 1958 BMI (ht and wt on same day) for age 18+ 1964 Hepatitis C screening for age 18-79 1964 Tetanus booster 1966 Zoster (shingles) series for age 50+ (1 of 2) 1996 RSV vaccine for adults or pr egnancy (1 - 1-dose 60+ series) 2006 DEXA/DXA scan for age 65+ 2011 Medicare Wellness for age 65+ 2011 Pneumococcal series for age 65+ (1 of 1 - PCV) 2011 COVID-19 vaccine series (3 - 2022- season) 2024 11/12/2020, 10/15/2020 Influenza for age 65+ 04/27/2024 Advance Directives * Full Code (Latest Code Status on File) Date Activated Date Inactivated Comments 07/22/2022 1:18 PM 07/27/2022 7:46 PM Question Answer Comments Code Status Discussion: Reviewed Preferences Care Teams Almond Roaster Relationship Specialty Start Date End Date Feliciano Uribe MD [address] [place] [address] PCP - General Family Practice 09/01/22
--- OUTSIDE RECORDS SUMMARY | 2024-05-16 13:18 | XMS_ITS | Encounter Summary ---
Author Organization [place] Address [address] [place] [address] Care Team Providers Care Associate Publisher Name Role Phone Feliciano Uribe MD Primary Care Provider [phone] Christina Roe PA-C Unavailable Christina Roe PA-C Unavailable Richie Rowell [facility] Unavailable Richie Rowell [facility] Unavailable Zhane Crain MD Unavailable Reason for Visit * Reason Onset Date Comments Appointment 10/23/2023 Encounter Details Date Type Department Care Team (Late st Contact Info) Description 10/23/2023 MyC Medical Advice [address] [place] [address] Christina Roe PA-C [address] [place] [address] Appointment Social History Tobacco Use Types Packs/Day [...] Hartley - 10/23/2023 3:24 PM CST lvm TENDER * Telephone Encounter - Smiley Perez - 10/23/2023 2:23 PM CST [facility] Call Center Phone Message May a detailed message be left on voicemail: yes Reason for Call: Other: Patient called to schedule 1 month follow up appt per previous communication w/ Christina teletypewriter installer tried to schedule but did not see any available appts for Christina until 12/26. Please advise. Action Taken: Other: RHEUM Travel Screening: Not Applicable TENDER * Telephone Encounter - Jonelle Aguirre RN - 10/23/2023 8:45 AM CST To provider to review and advise, I do not see any new medication that pt is referring to. Jonelle Aguirre [facility] RN TENDER documented in this encounter Plan of Treatment Upcoming Encounters Date Type Department Care Team (Late st Contact Info) Description 05/20/2024 9:30 AM CDT Virtual Visit [facility] [address] [facility] [address] [place] [phone] Zhane Crain MD [address] [place] [address] Richie Rowell RP [address] [place] [address] 07/31/2024 2:00 PM UNIT TENDER Office Visit [facility] [address] [facility] [address] [place] [phone] Christina Roe PA-C [address] [place] [address] documented as of this encounter Visit Diagnoses Diagnosis Polyarthralgia- Primary Pain in joint, multiple sites Myalgia Mylagia and myositis, unspecified documented in this encounter Care Teams Associate Publisher Relationship Specialty Start Date End Date Feliciano Uribe MD [facility] & [address] [address] PCP - General Family Medicine 06/01/23 Christina Roe PA-C [address] [place] [address] Physician Manager [employer] Rheumatology 11/06/23 Christina Roe PA-C [address] [place] [address] Assigned Rheumatology Provider 11/09/23 Richie Rowell RPH [address] [place] [address] Pharmacist Pharmacist 04/08/24 Richie Rowell RPH [address] [place] [address] Assigned MTM Pharmacist 04/18/24 Zhane Crain MD [address] [place] [address] Physician Rheumatology 05/14/24 documented as of this encounter
--- OUTSIDE RECORDS SUMMARY | 2024-05-16 13:18 | XMS_ITS | Referral Summary ---
Author Organization [facility] Address [address] [place] [address] Care Team Providers Care Barrel Ribs Solderer Name Role Phone Unavailable Primary Care Provider Unavailabl e Source Comments Patient records contain information from all sites at [facility]. For routine questions regarding patient records, call [phone] during business hours, M-F 8:00 AM - 5:00 PM Central Time. Record requests for emergency care only can be directed to [phone] at any time.[facility] Allergies No known active allergies Medications Medication [...] How often do you attend chur or christian services? More than 4 times per year [...] and heating? Not hard at all 10/10/2022 [facility] of Occupat ional Health - Occupational Stress [...] Sex Assigned at Female 10/10/2022 4:07 PM GROUNDS AND NURSERY SPECIALIST Gender Identity Female 07/16/2018 12:55 PM GROUNDS AND NURSERY SPECIALIST Sexual Orientation Straight 07/16/2018 12 :55 PM GROUNDS AND NURSERY SPECIALIST Last Filed Vital Signs Vital Sign Reading Time Taken Comments Blood Pressure 163/73 10/31/2022 12:17 PM GROUNDS AND NURSERY SPECIALIST Pulse 75 10/31/2022 12:17 PM GROUNDS AND NURSERY SPECIALIST Temperature 36.5 ??C (97.7 ??F) 10/31/2022 1 2:27 PM GROUNDS AND NURSERY SPECIALIST Respiratory Rate 20 10/31/2022 12:1 7 PM GROUNDS AND NURSERY SPECIALIST Oxygen Saturation 96% 10/31/2022 12: 17 PM GROUNDS AND NURSERY SPECIALIST Inhaled Oxygen Concentration - - Weight 55.2 kg (121 lb 11.1 oz) 11/01/2022 9:18 AM GROUNDS AND NURSERY SPECIALIST Height 152 cm (4' 11.84) 11/01/2022 9:18 AM GROUNDS AND NURSERY SPECIALIST Body Mass Index 23.89 11/01/2022 9:18 AM GROUNDS AND NURSERY SPECIALIST Plan of Treatment Not on file Medical Devices Implanted Type Area Repairer Typewriter Device Identifier Shelf Expiration Date Model / Serial / Lot Knee Implant- 022 Implanted:0 01/2022 (Quantity not on file) Knee Implant Right: Knee Ocular Lens Ocular Lens Bilatera l: Eye Procedures Procedure Name Priority Date/Time Associated Diagnosis Comments COMPREHENSIVE METABOLIC PANEL, S/P Routine 10/17/2022 10:01 AM GROUNDS AND NURSERY SPECIALIST Bypass Gastric Suellen En Y Status [...] * Comprehensive Metabolic Panel (10/17/2022 10:01 AM GROUNDS AND NURSERY SPECIALIST) Pathologist [facility] Potassium, S 4.5 3.6 - 5.2 mmol/L 10/17/2022 11:02 AM GROUNDS AND NURSERY SPECIALIST DTL Sodium, S 141 135 - 145 mmol/L 10/17/2022 11:02 AM GROUNDS AND NURSERY SPECIALIST DTL Chloride, S 106 98 - 107 mmol/L 10/17/2022 11:02 AM GROUNDS AND NURSERY SPECIALIST DTL Bicarbonate, S 26 22 - 29 mmol/L 10/17/2022 11:02 AM GROUNDS AND NURSERY SPECIALIST DTL Anion Gap 9 7 - 15 10/17/2022 11:02 AM GROUNDS AND NURSERY SPECIALIST DTL BUN (Blood Urea Nitrogen), S 12 6 - 21 mg/dL 10/17/2022 11:02 AM GROUNDS AND NURSERY SPECIALIST DTL Creatinine 0.59 0.59 - 1.04 mg/dL 10/17/2022 11:02 AM GROUNDS AND NURSERY SPECIALIST DTL Estimated GFR (eGFR) >90 >=60 mL/min/BS A 10/17/2022 11:02 AM GROUNDS AND NURSERY SPECIALIST DTL Comment: Estimated GFR calculated using the 2020 CKD_EPI creatinine equation. Calcium, Total, S 9.7 8.8 - 10.2 mg/dL 10/17/2022 11:02 AM GROUNDS AND NURSERY SPECIALIST DTL Glucose, S 100 70 - 140 mg/dL 10/17/2022 11:02 AM GROUNDS AND NURSERY SPECIALIST DTL Protein, Total, S 6.8 6.3 - 7.9 g/dL 10/17/2022 11:02 AM GROUNDS AND NURSERY SPECIALIST DTL Albumin, S 4.5 3.5 - 5.0 g/dL 10/17/2022 11:02 AM GROUNDS AND NURSERY SPECIALIST DTL Aspartate Aminotransferase (AST), S 23 8 - 43 U/L 10/17/2022 11:02 AM GROUNDS AND NURSERY SPECIALIST DTL Alkaline Phosphatase, S 83 35 - 104 U/L 10/17/2022 11:02 AM GROUNDS AND NURSERY SPECIALIST DTL Alanine Aminotransferase (ALT), S 23 7 - 45 U/L 10/17/2022 11:02 AM GROUNDS AND NURSERY SPECIALIST DTL Bilirubin, Total, S 0.3 <=1.2 mg/dL 10/17/2022 11:02 AM GROUNDS AND NURSERY SPECIALIST DTL Blood (Blood, Venous) 10/17/2022 10:01 AM GROUNDS AND NURSERY SPECIALIST 10/17/2022 10:38 AM GROUNDS AND NURSERY SPECIALIST Merlyn Cobos M.D. LAB BLO OD ADD-ON [facility] [address] [place] [address], [facility] [address] [place] [address] * (ABNORMAL) Thyroid Function Wilson (06/23/2019 10:25 AM CDT) TSH, Sensitive 6.0(H) 0.3 - 4.2 mIU/L 06/24/2019 8:43 AM CDT DTL Blood (Blood, Venous) 06/23/2019 10:25 AM CDT 06/24/2019 7:34 AM CDT Narrative Resulting Agency Comment Mailed In Specimen Sony Belcher Jennifer BEAN C.N.P., D.N.P. LAB BLOOD ADD-ON [facility] [address] [place] [address], [place] [facility] [address] [place] [address] from Last 3 Months or Most Recently Relevant to Health Maintenance
--- NOTE | 2024-05-16 13:40 | CRLHL7_ITS ---
For Patients: As a result of the Century Cures Act, medical imaging exams and procedure reports are released immediately into your electronic medical record. You may view this report before your referring provider. If you have questions, please contact your health care provider. BILATERAL SCREENING MAMMOGRAM WITH COMPUTER-AIDED DETECTION AND TOMOSYNTHESIS TECHNIQUE: CC and MLO views were obtained. These mammographic images have been obtained using full-field digital technique. These mammographic images were interpreted with the benefit of computer-aided detection. Breast Tomosynthesis was used in this interpretation. COMPARISON FILM: 09/23/19, 01/17/18, 06/08/16. FINDINGS: There are scattered areas of fibroglandular density IMPRESSION: There is no radiographic evidence for malignancy. ASSESSMENT: BI-RADS Category 1: Negative RECOMMENDATION: Routine screening mammogram in 1 year. A lay language report of this examination will be provided to the patient. Jah Alvarez M.D. Diagnostic Radiologist [email or web address] DIONI/Dictated by: Jah Alvarez MD @ 05/27/2024 10:58:00 AM (Electronically Signed)
== END 2024-05-16 13:11 | disposition home or self-care (01) ==
LOC: MAMMO 13:11
PROVIDERS: PCP Family Medicine; Visit Provider Family Medicine
DX: Z12.31 Encounter for screening mammogram for malignant neoplasm of breast (principal)
CPT/HCPCS: 77063; 77067

== ENCOUNTER 2024-06-24 08:57 | Outpatient (CLI) | payer MEDICARE, BC, SELFPAY ==
--- OUTSIDE RECORDS SUMMARY | 2024-06-24 08:59 | XMS_ITS | Clinical Summary ---
Author Organization [place] Address [address] [place] [address] Care Team Providers Care Highway Engineer Name Role Phone Feliciano Uribe MD Primary Care Provider Christina Roe PA-C Unavailable Christina Roe PA-C Unavailable Richie Rowell [facility] Unavailable Richie Rowell [facility] Unavailable Zhane Crain MD Unavailable Saeed Berry MD Unavailable [phone] Allergies Active Allergy Reactions Criticality Noted Date Comments Aspirin 11/06/2023 Contraindicated due to hx of gastric bypass Medications amoxicillin (AMOXIL) 500 MG capsule TAKE 4 CAPSULES BY MOUTH 1 HOUR BEFORE DENTAL APPOINTMENT FOR 1 DOSE 11/07/19 23 Active atorvastatin (LIPITOR) 10 MG tablet Take 10 mg by mouth at bedtime Active D3-50 1.25 MG (19509 UT) capsule Take 1,250 mcg by mouth once a week Active FLUoxetine (PROZAC) 40 MG capsule Take 40 mg by mouth daily Active levothyroxine (SYNTHROID/LEVOT HROID) 150 MCG tablet Take 150 mcg by mouth daily Active lisinopril (ZESTRIL) 10 MG tablet Take 10 mg by mouth 2 times daily 09/14/19 24 Active metoprolol tartrate (LOPRESSOR) 25 MG tablet Take 25 mg by mouth 2 times daily 09/14/19 24 Active nitroGLYcerin (NITROSTAT) 0.[address] 0.4 mg under the tongue 11/22/19 22 Active Cyanocobalamin 1000 MCG/ML KIT 1,000 mcg every 30 days Active methocarbamol (ROBAXIN) 500 MG tabletIndication s:Neck pain Take 1 tablet (500 mg) by mouth 4 times daily as needed for muscle spasms 10 tablet 03/26/20 24 Active pantoprazole (PROTONIX) 40 MG EC tabletIndication s:Temporal arteritis (H),PMR (polymyalgia rheumatica) (H) Take 1 tablet (40 mg) by mouth every morning (before breakfast) 90 tablet 03/27/20 24 Active amLODIPine (NORVASC) 5 MG tablet Take 5 mg by mouth daily 03/08/20 24 Active Multiple Vitamin (MULTIVITAMIN ADULT PO) Take 1 tablet by mouth daily Active calcium carbonate (TUMS) 500 MG chewable tablet Take 1 chew tab by mouth daily Active zoledronic acid (RECLAST) 5 MG/100ML SOLN infusion Inject 5 mg into the vein once Every 12 months Active tocilizumab (ACTEMRA) 162 MG/0.9ML subcutaneous injectionIndicat ions:GCA (giant cell arteritis) (H) Inject 0.9 mLs (162 mg) subcutaneously every 7 days. 3.6 mL 5 05/15/20 24 Active predniSONE (DELTASONE) 5 MG tabletIndication s:Temporal arteritis (H),PMR (polymyalgia rheumatica) (H) Take 2.5 tablets (12.5 mg) by mouth daily for 14 days, THEN 2 tablets (10 mg) daily for 7 days. 19 tablet 06/05/20 24 024 Active predniSONE (DELTASONE) 1 MG tabletIndication s:Temporal arteritis (H),PMR (polymyalgia rheumatica) (H) Take 9 tablets (9 mg) by mouth [...] mg) daily for 14 days. 462 tablet 06/10/20 24 025 Active predniSONE (DELTASONE) 5 MG tabletIndication s:Temporal arteritis (H),PMR (polymyalgia rheumatica) (H) Take 2.5 tablets (12.5 mg) by mouth daily for 14 days, THEN 2 tablets (10 mg) daily for 7 days. 49 tablet 05/20/20 24 024 Discontin ued(Reord er (No AVS)) predniSONE (DELTASONE) 1 MG tabletIndication s:Temporal arteritis (H),PMR (polymyalgia rheumatica) (H) Take 9 tablets (9 mg) by mouth [...] mg) daily for 14 days. 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 Provider to review Hyperlipidemia 03/14/2010 Primary hypertension 03/14/2010 Encounters Date Type Department Care Team Description 06/12/[address] [place] [phone] Christina Roe PA-C Call Back 06/04/2024 MyC Medical Advice [facility] [address] [place] [address] [address] [place] [address] Christina Roe PA-C Temporal arteritis (H); PMR (polymyalgia rheumatica) (H) 05/21/2024 MyC Medical Advice [facility] Rheumatology [facility] [address] [phone] Richie Rowell Justine 05/20/2024 9:30 AM CDT Virtual Visit [facility] [place] [facility] 1600 [facility] [address] [place] [phone] Zhane Crain MD Krier, John, [facility] GCA (giant cell arteritis) (H) (Primary Dx); PMR (polymyalgia rheumatica) (H); Vaccine counseling 05/13/2024 Telephone [facility] [place] [facility] [address] [phone] Zhane Crain MD Orders 05/13/2024 Sonia Medical Advice [facility] [address] [place] [address] [address] [place] [phone] Christina Roe PA-C 05/09/[address] [place] [address] Zhane Crain MD Medication Question (Tocilizumab (ACTEMRA ACTPEN) 162 MG/0.9ML SOAJ /) 05/09/2024 MyC Medical Advice [facility] [address] [place], [place] [phone] Adalberto Boles 05/07/2024 8:00 AM CDT Office Visit [facility] - [address] [phone] Saeed Berry MD Arcuate scotoma of both eyes (Primary Dx) 05/07/2024 Travel 05/07/2024 PRE VISIT [facility] - [address] [phone] Saeed Berry MD Previsit 05/06/2024 Orders Only [facility] - [address] [phone] Saeed Berry MD Visual field defect (Primary Dx) 05/06/2024 MyC Medical Advice [address] [phone] Christina Roe PA-C 05/02/2024 MyC Medical Advice [address] [phone] Adalberto Boles 05/02/2024 Telephone [facility] Eye [facility] - [address] [phone] Saeed Berry MD 04/23/2024 MyC Medical Advice [address] [place] [phone] Zhane Crain MD 04/22/2024 2:20 PM CDT Ancillary Procedure [address] [phone] Zhane Crain MD GCA (giant cell arteritis) (H); Pain in right lower leg 04/22/2024 1:15 PM CDT Therapy Visit [facility] Rehabilitation Services [address] [place] [address] Christina Roe, Mary Felipe, OT Temporal arteritis (H) (Primary Dx); Generalized muscle weakness 04/22/2024 Travel 04/21/2024 MyC Medical Advice [facility] 1600 [facility] [address] [place] [phone] Richie Rowell [facility] 04/17/2024 12:50 PM CDT Lab [facility] Laboratory [address] [facility] [address] [place] [phone] GCA (giant cell arteritis) (H); PMR (polymyalgia rheumatica) (H); Need for hepatitis B screening test 04/17/2024 12:30 PM CDT Office Visit [facility] [address] [facility] [address] [place] [phone] Zhane Crain MD GCA (giant cell arteritis) (H); Pain in right lower leg 04/16/2024 Travel 04/14/2024 10:45 AM CDT Therapy Visit [place] [address] [place] [phone] Kristel Madrid, PT Temporal arteritis (H) (Primary Dx); PMR (polymyalgia rheumatica) (H); Impaired gait and mobility 04/14/2024 MyC Medical Advice [facility] [address] [facility] [address] [place] [address] Adalberto Boles 04/14/2024 Travel 04/10/2024 MyC Medical Advice [facility] [address] [phone] Richie Rowell [facility] 04/09/2024 11:45 AM CDT Therapy Visit [facility] [address] [place] [address] [address] [place] [phone] Christina Roe PA-C Solie, Jessica, OT Cognitive changes (Primary Dx); Temporal arteritis (H); PMR (polymyalgia rheumatica) (H); Generalized muscle weakness 04/09/2024 10:30 AM CDT Therapy Visit [address] [place] [phone] Luz Yuan MD Archbold, Katherine Charlotta Beed, PT Temporal arteritis (H) (Primary Dx); PMR (polymyalgia rheumatica) (H); Impaired gait and mobility 04/09/2024 MyC Medical Advice [facility] [place] [facility] 1600 [facility] [address] [place] [phone] Richie Rowell RPH 04/09/2024 Travel 04/09/2024 PRE VISIT [facility] Eye [address] [phone] Saeed Berry MD 04/08/2024 9:30 AM CDT Virtual Visit [facility] [place] [facility] [address] [facility] [address] [place] [phone] Zhane Crain MD Krier, John, [facility] GCA (giant cell arteritis) (H) (Primary Dx); PMR (polymyalgia rheumatica) (H); Vaccine counseling; Primary hypertension; Hyperlipidemia, unspecified hyperlipidemia type; Anxiety; Depression, unspecified depression type; Hypothyroidism, unspecified type; Takes dietary supplements; Need for hepatitis B screening test 04/08/2024 Telephone [facility] [address] [facility] [address] [place] [phone] Zhane Crain MD Prior Auth - Medication (Actemra) 04/02/2024 2:15 PM CDT Therapy Visit [address] [place] [phone] Luz Yuan MD Archbold, Sue Baldwin, PT Impaired gait and mobility (Primary Dx); Temporal arteritis (H); PMR (polymyalgia rheumatica) (H) 04/02/2024 Travel 03/28/[address] [phone] Jorge Kelly MD Appointment 03/27/2024 MyC Medical Advice [address] [phone] Mychart [place] 03/27/[address] [phone] Saeed Berry MD 03/25/2024 3:10 PM CDT Anesthesia Event [facility] PeriOp Services [address] [place] [phone] Shari Mckeon MD Kalina, Lucas, APRN EVENT PLANNING INTERN 03/25/2024 2:00 PM CDT - 03/25/2024 3:10 PM CDT Surgery [facility] Services [address] [place] [phone] Richie Hawk DO Bilateral temporal Artery Biopsy 03/25/2024 Ophth Exam [facility] [address] [place] [phone] Jorge Kelly MD 03/24/2024 Orders Only [facility] Rheumatology Clinic [address] [phone] Ashwin Galo MD Temporal arteritis (H) (Primary Dx); GCA (giant cell arteritis) (H) 03/24/2024 Ophth Exam [facility] [address] [place] [phone] Lamont Canales MD 03/22/2024 8:48 AM CDT - 03/26/2024 6:45 PM CDT Hospital Encounter [facility] 5A Oncology [address] [place] [address] Jona Sears MD Hozayen, Sameh M, MD Davis, Elizabeth M, MD Urinary tract infection without hematuria, site unspecified (Primary Dx); Temporal arteritis (H); PMR (polymyalgia rheumatica) (H); Decreased vision of right eye; Right temporal headache; Neck pain Discharge Disposition: Home or Self Care from Last 3 Months Immunizations Name Administration Dates Next Due DT (PEDS <7y) 01/30/1980 Flu, Unspecified 06/21/2020,05/05/2011 [id number] Novel Flu 06/28/2009 Influenza (High Dose) Trival [...] School Help Needed Not on file 05/31 Comments Unknown Sex and Gender Information Value Date Recorded Sex Assigned at Not on file Legal Sex Female 3:41 AM 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 Gender Identity Not on file Sexual Orientation [...] Care Team (Late st Contact Info) Description 07/08/2024 9:30 AM 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 SUPERVISOR Virtual Visit [facility] Rheumatology [facility] 1600 [facility] 101 [place] [phone] Zhane Crain MD [address] [place], [place] [address] [facility] [address] [place] [address] 07/31/2024 2:00 PM 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 SUPERVISOR Office Visit [facility] [address] [facility] [address] [place] [phone] Christina Roe PA-C [address] [place] [address] Health Maintenance Due Date Last Done Comments [...] T4 REFLEX 03/22/2025 03/22/2024 BMP 03/26/2025 03/26/2024, 07/3 , 03/24/2024, Additional history exists LIPID 04/17/2025 [...] (giant cell arteritis) (H) PMR (polymyalgia rheumatica) (H) QUANTIFERON TB GOLD PLUS Routine 04/17/2024 1:11 PM CDT GCA (giant cell arteritis) (H) PMR (polymyalgia rheumatica) (H) QUANTIFERON TB GOLD PLUS PURPLE TUBE Routine 04/17/2024 1:11 PM CDT GCA (giant cell arteritis) (H) PMR (polymyalgia rheumatica) (H) QUANTIFERON TB GOLD PLUS YELLOW TUBE Routine 04/17/2024 1:11 PM CDT GCA (giant cell arteritis) (H) PMR (polymyalgia rheumatica) (H) QUANTIFERON TB GOLD PLUS GREEN TUBE Routine 04/17/2024 1:11 PM CDT GCA (giant cell arteritis) (H) PMR (polymyalgia rheumatica) (H) QUANTIFERON TB GOLD PLUS PLUNKETT TUBE Routine 04/17/2024 1:11 PM CDT GCA (giant cell arteritis) (H) PMR (polymyalgia rheumatica) (H) LIPID REFLEX TO DIRECT LDL PANEL Routine [...] (giant cell arteritis) (H) PMR (polymyalgia rheumatica) (H) Need for hepatitis B screening test HEPATITIS B CORE ANTIBODY Routine 04/17/2024 1:11 PM CDT GCA (giant cell arteritis) (H) PMR (polymyalgia rheumatica) (H) Need for hepatitis B screening test HEPATITIS C ANTIBODY Routine 04/17/2024 1:11 PM CDT GCA (giant cell arteritis) (H) PMR (polymyalgia rheumatica) (H) BASIC METABOLIC PANEL Routine 03/26/2024 6:14 AM CDT CBC WITH PLATELETS Routine 03/26/2024 6: 14 AM CDT CRP INFLAMMATION Routine 03/26/2024 6:14 AM CDT ERYTHROCYTE SEDIMENTATION RATE AUTO Routine 03/26/2024 6:14 AM CDT SURGICAL PATHOLOGY EXAM Routine 03/25/2024 4:29 PM CDT ANE AIRWAY ETT PERFORMABLE [...] RATE AUTO Routine 03/24/2024 5:09 AM CDT TSH STAT 03/22/2024 8:45 AM CDT from Last 3 Months or Most Recently Relevant to Health Maintenance Results * OCT Optic Nerve RNFL Spectralis [...] . Plan: Monitor . Interval: Initial . us Saeed Berry MD OPHTHALMOLOGY Final Result * Glaucoma Top OU (05/07/2024 8:22 AM CDT) Saeed Pastrana MD - 05/07/2024 8:22 AM CDT Performed by: BD . Good fix BE, not dilated. Right Eye Reliability of the test: Good . Findings: Arcuate scotoma . Interpretation: Abnormal . Interval: Initial . Left Eye Reliability of the test: Good . Findings: Arcuate scotoma . Interpretation: Abnormal . Interval: Initial . us Saeed Berry MD OPHTHALMOLOGY Final Result * US Lower Extremity Venous Duplex Right (04/22/2024 2:35 PM CDT) Anatomical Region Laterality Modality Lower Extremity Ultrasound 04/22/2024 2:35 PM CDT Impressions 04/22/2024 2:41 PM CDT IMPRESSION: 1. ??No deep venous thrombosis in the right lower extremity. Narrative 04/22/2024 2:41 PM CDT EXAM: US LOWER EXTREMITY VENOUS DUPLEX RIGHT LOCATION: [facility] DATE: 04/22/2024 INDICATION: ??GCA (giant cell arteritis) [...] US LOWER EXTREMITY VENOUS DUPLEX RIGHT LOCATION: [facility] DATE: 04/22/2024 INDICATION: GCA (giant cell arteritis) [...] the right lower extremity. Zhane Crain MD [facility] ORDERA BLES Final Result * Quantiferon TB Gold Plus (04/17/2024 1:11 [...] CDT Zhane Crain MD LAB - MICRO G ENERAL ORDERABLES Final Result [facility] SPECIALTY CORE/PROT/ENDO UM Specialty Core/Prot/Endo 500 [facility], [address] * Quantiferon TB Gold Plus Purple Tube (04/17/2024 1:11 PM CDT) Quantiferon Mitogen 2.03 IU/mL 04/18/2024 4:17 PM CDT SPECIALTY CORE/PROT/ENDO Blood BLOOD SPECIMEN / Unknown Venipuncture / Unknown 04/17/2024 1:11 PM CDT 04/17/2024 1:24 PM CDT Zhane Crain MD LAB - MICRO G ENERAL ORDERABLES Final Result UM SPECIALTY CORE/PROT/ENDO UM Specialty Core/Prot/Endo [address] [facility], [address] * Quantiferon TB Gold Plus Yellow Tube (04/17/2024 1:11 PM CDT) Quantiferon TB2 Tube 0.00 04/18/2024 4:18 PM CDT SPECIALTY CORE/PROT/ENDO Blood BLOOD SPECIMEN / Unknown Venipuncture / Unknown 04/17/2024 1:11 PM CDT 04/17/2024 1:24 PM CDT Zhane Crain MD LAB - MICRO G ENERAL ORDERABLES Final Result UM SPECIALTY CORE/PROT/ENDO UM Specialty Core/Prot/Endo 500 [facility], Room [address] [place] [address] * Quantiferon TB Gold Plus Green Tube (04/17/2024 1:11 PM CDT) Quantiferon TB1 Tube 0.00 IU/mL 04/18/2024 4:18 PM CDT SPECIALTY CORE/PROT/ENDO Blood BLOOD SPECIMEN / Unknown Venipuncture / Unknown 04/17/2024 1:11 PM CDT 04/17/2024 1:24 PM CDT Zhane Crain MD LAB - MICRO G ENERAL ORDERABLES Final Result UM SPECIALTY CORE/PROT/ENDO Specialty Core/Prot/Endo [address] [facility], [address] * Quantiferon TB Gold Plus Plunkett Tube (04/17/2024 1:11 PM CDT) Quantiferon Nil Tube 0.00 IU/mL 04/18/2024 4:18 PM CDT SPECIALTY CORE/PROT/ENDO Blood BLOOD SPECIMEN / Unknown Venipuncture / Unknown 04/17/2024 1:11 PM CDT 04/17/2024 1:24 PM CDT us Zhane Crain MD LAB - MICRO G ENERAL ORDERABLES Final Result UM SPECIALTY CORE/PROT/ENDO UM Specialty Core/Prot/Endo 500 [facility] [address] [facility], [address] * Lipid panel reflex to direct [...] mg/dL Zhane Crain MD LAB - BLOOD O RDERABLES Final Result Performing Organization Address City/[place] [facility]/ZIP Co de Phone Number LABORATORY [facility] Core Lab 500 [facility], Room [address] * Hepatitis C antibody (04/17/2024 1:11 PM [...] CDT Zhane Crain MD LAB - BLOOD O RDERABLES Final Result Performing Organization Address City/[facility]/ZIP Co de Phone Number LABORATORY [facility] Core Lab 500 [facility], [address] [phone] * Hepatitis B surface antigen (04/17/2024 1:11 PM CDT) Hepatitis B Surface Antigen Nonreactive Nonreactive 04/17/2024 8:05 PM CDT LABORATORY Blood STRUCTURE OF RIGHT UPPER LIMB / Unknown Venipuncture / Unknown 04/17/2024 1:11 PM CDT 04/17/2024 1:24 PM CDT Zhane Crain MD LAB - BLOOD O RDERABLES Final Result LABORATORY [facility] [place] Core Lab 500 [facility], [address] [phone] * Hepatitis B core antibody [...] CDT Zhane Crain MD LAB - BLOOD O RDERABLES Final Result LABORATORY [facility] [place] Core Lab 500 [facility], [address] [phone] * Erythrocyte sedimentation rate auto (04/17/2024 1:11 PM CDT) Only the most recent of4 resultswithin the time period is included. Erythrocyte Sedimentation Rate 5 0 - 30 mm/hr 04/17/2024 1:43 PM CDT [facility] LABORATORY Blood STRUCTURE OF RIGHT UPPER LIMB / Unknown Venipuncture / Unknown 04/17/2024 1:11 PM CDT 04/17/2024 1:24 PM CDT Zhane Crain MD LAB - BLOOD O RDERABLES Final Result [facility] [place] [address], [facility] * CRP inflammation (04/17/2024 1:11 PM CDT) Only the most recent of4 resultswithin the time period is included. CRP Inflammation <3.00 <5.00 mg/L 04/17/20 7:43 PM CDT [facility] Blood STRUCTURE OF RIGHT UPPER LIMB / Unknown Venipuncture / Unknown 04/17/2024 1:11 PM CDT 04/17/2024 1:24 PM CDT Zhane Crain MD LAB - BLOOD O RDERABLES Final Result [facility] LABORATORY [facility] [place] Core Lab 500 [facility], [address] [place] [address] * Creatinine (04/17/2024 1:11 PM CDT) Creatinine 0.70 0.51 - 0.95 mg/dL 04/17/2024 7:43 PM CDT [facility] LAB[facility] GFR Estimate 88 >60 mL/min/1.7 3m2 04/17/2024 7:43 PM CDT [facility] Comment:eGFR calculated 2020 CKD-EPI equation. Blood STRUCTURE OF RIGHT UPPER LIMB / Unknown Venipuncture / Unknown 04/17/2024 1:11 PM CDT 04/17/2024 1:24 PM CDT Zhane Crain MD LAB - BLOOD O RDERABLES Final Result [facility] LABORATORY [facility] [place] Core Lab [address] [facility], [address] [place] [address] * AST (04/17/2024 1:11 PM CDT) AST 42 0 - 45 U/L 04/17/2024 7:4 3 PM CDT [facility] LAB[facility]ATORY Blood STRUCTURE OF RIGHT UPPER LIMB / Unknown Venipuncture / Unknown 04/17/2024 1:11 PM CDT 04/17/2024 1:24 PM CDT Zhane Crain MD LAB - BLOOD O RDERABLES Final Result U LABORATORY [facility] Core Lab [address] [facility], [address] [phone] * (ABNORMAL) ALT (04/17/2024 1:11 PM CDT) [facility] ALT 101(H) 0 - 50 U/L 04/17/2024 7:43 PM CDT [facility] LAB[facility]ATORY Blood STRUCTURE OF RIGHT UPPER LIMB / Unknown Venipuncture / Unknown 04/17/2024 1:11 PM CDT 04/17/2024 1:24 PM CDT Zhane Crain MD LAB - BLOOD O RDERABLES Final Result Performing Organization Address City/[facility] Co de Phone Number [facility] LABORATORY [facility] Core Lab [address] [facility], Room [address] * (ABNORMAL) CBC with platelets (04/17/2024 1:11 PM CDT) Only the most recent of4 resultswithin the time period is included. [facility] WBC Count 6.2 4.0 - 11.0 10e3/uL [...] CDT Zhane Crain MD LAB - BLOOD O RDERABLES Final Result [facility] [address] * (ABNORMAL) Basic metabolic panel (03/26/2024 6:14 AM CDT) Only the most recent of3 resultswithin the time period is included. Sodium [...] 6:14 AM CDT 03/26/2024 6:23 AM CDT us Kristel Acosta MD LAB - BLOOD ORDERABLES Final Result [facility] LABORATORY [facility] Core Lab 500 [facility], [address] [phone] * Surgical Pathology Exam (03/25/2024 4:29 PM CDT) Case Report Surgical Pathology Report ? Case: [id number] ? Authorizing Provider: ??Richie Dominguez ? Collected: [...] component of this testing was completed at [facility]. Stain controls for [...] PM CDT Richie Hawk DO [facility] Final Result SPECIALTY LABS Specialty Lab 500 [facility] [address] [facility], [address] [phone]U LABORATORY [facility] [place] Core Lab 500 [facility] [address] Building, [address] [address], [facility] * ANE AIRWAY ETT PERFORMABLE (03/25/2024 3:23 PM CDT) Narrative Saeed Yuen RN - 03/25/2024 3:23 PM CDT Saeed Yuen RN ? 03/25/2024 ??3:53 PM Airway ? Patient location during procedure: OR ? Procedure Start/Stop Times: 03/25/2024 3:23 PM Staff - ? EVENT PLANNING INTERN: Margarita Gracia APRN CRNA ? Other Anesthesia Staff: Saeed Yuen RN ? Performed By: EVENT PLANNING INTERN and SRNA Consent for Airway ? Urgency: [...] PM Medication Administration Time: 03/25/2024 3:23 PM us Shari Mckeon MD [place] ANESTHESIA Final Result * (ABNORMAL) CBC with platelets and differential (03/25/2024 11:38 AM CDT) Pathologist [facility] WBC Count 11.3(H) 4.0 - 11.0 10e3/uL [...] 11:38 AM CDT 03/25/2024 11:44 AM CDT us Luan Eller MD LAB - BLOOD ORDER [place] Final Result [facility] LABORATORY [facility] [place] Core Lab 500 [facility], [address] [phone] * US Temporal Arteries Duplex [...] PARIETAL BRANCH: 0.29 mm MICHAEL SOLIS MD us Kristel Acosta MD [facility] ORDERABLES Final Resul t * TSH (03/22/2024 8:45 AM CDT) TSH 2.40 0.30 - 4.20 uIU/mL 03/22/2024 10:19 AM CDT [facility] LAB[facility]ATORY Blood BLOOD SPECIMEN / Unknown Venipuncture / Unknown 03/22/2024 8:45 AM CDT 03/22/2024 9:23 AM CDT Jona Sears MD LAB - BLOOD ORDERABLES Daylin corrales Result [facility] LABORATORY [facility] [place] Core Lab 500 [facility], [address] [phone] from Last 3 Months or Most Recently Relevant to Health Maintenance Insurance * Guarantor: Gato Jimenez Account Type Relation to Patient Date of Phone Billing Address Personal/Family Self [address] [place] [address] [facility] Address: [address] [address] [place] [address] MEDICARE Member Subscriber Plan / Payer (Ef fective 1997-Present) Name:Gato Jimenez Member ID:[id number] Relation to Subscriber:Self Name:Gato Jimenez Subscriber ID:[id number] Payer ID:[id number] Group ID:Not on file Type:Medicare Address: ATTN CLAIMS [address] [employer] [place] [facility] [facility] Address: [address] [address] [place] [address] MEDICARE Member Subscriber Plan / Payer (Ef fective 1997-Present) Name:Gato Jimenez Member ID:[id number] Relation to Subscriber:Self Name:Gato Jimenez Subscriber ID:[id number] Payer ID:[id number] Group ID:Not on file Type:Medicare Address: ATTN CLAIMS [address] * Guarantor: Gato Jimenez Account Type Relation to Patient Date of Phone Billing Address Medication Therapy Self [address] [place] [address] MEDICARE BC[employer] [place] [facility] [place] Advance Directives For more information, please contact: [phone] * Full Code (Latest Code Status on File) Date Activated Date Inactivated Comments 03/25/2024 6:43 PM 03/26/2024 9:05 PM All basic an d advanced life-sustaining interventions are performed as appropriate Question Answer Comments Code status determined by: Discussion with sury nt/ legal decision maker * Full Code Date Activated Date Inactivated Comments 03/22/2024 5:39 PM 03/25/2024 6:43 PM All basic an d advanced life-sustaining interventions are performed as appropriate Question Answer Comments Code status determined by: Discussion with patie nt/ legal decision maker Care Teams Highway Engineer Relationship Specialty Start Date End Date Feliciano Uribe MD [address] [address] PCP - General Family Medicine 06/01/23 Christina Roe PA-C [address] [place] [address] Physician Agent Based Modeler Rheumatology 11/06/23 Christina Roe PA-C [address] [place] [address] Assigned Rheumatology Provider 11/09/23 Richie Rowell [facility] [address] [place] [address] Pharmacist Pharmacist 04/08/24 Richie Rowell [facility] [address] [place] [address] Assigned MTM Pharmacist 04/18/24 Zhane Crain MD [address] [place] [address] Physician Rheumatology 05/14/24 Saeed Berry MD [address] [place] [address] [phone] Assigned Surgical Provider 05/19/24
--- OUTSIDE RECORDS SUMMARY | 2024-06-24 08:59 | XMS_ITS | Encounter Summary ---
Author Organization [place] Address [address] [place] [address] Care Team Providers Care Health Sciences Program Coordinator Name Role Phone Feliciano Uribe MD Primary Care Provider Christina Roe PA-C Unavailable Christina Roe PA-C Unavailable Richie Rowell [facility] Unavailable Richie Rowell [facility] Unavailable Zhane Crain MD Unavailable Encounter Details Date Type Department Care Team (Late st Contact Info) Description 05/13/2024 MyC Medical Advice [address] [place] [phone] Christina Roe PA-C [address] [place] [address] Social History Tobacco Use Types Packs/Day Years [...] on file Legal 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 Rheumatology [facility] 1600 [facility] 101 [place] [phone] Zhane Crain MD 500 [place] [address] Richie Rowell [facility] 909 [place] [address] 07/31/2024 2:00 PM INTERNET SALES MANAGER Office Visit [facility] 2945 [facility] 200 [place] [phone] Christina Roe PA-C [address] [place] [address] documented as of this encounter Visit Diagnoses Not on filedocumented in this encounter Care Teams Health Sciences Program Coordinator Relationship Specialty Start Date End Date Feliciano Uribe MD [address] [address] PCP - General Family Medicine 06/01/23 Christina Roe PA-C [address] [place] [address] Physician Growth Hacker Rheumatology 11/06/23 Christina Roe PA-C [address] [place] [address] Assigned Rheumatology Provider 11/09/23 Richie Rowell [facility] 909 [place] [address] Pharmacist Pharmacist 04/08/24 Richie Rowell RPH 909 [place] [address] Assigned MTM Pharmacist 04/18/24 Zhane Crain MD [address] [place] [address] Physician Rheumatology 05/14/24 documented as of this encounter
--- OUTSIDE RECORDS SUMMARY | 2024-06-24 08:59 | XMS_ITS | Encounter Summary ---
Author Organization [place] Address [address] [place] [address] Care Team Providers Care Bus Starter Name Role Phone Feliciano Uribe MD Primary Care Provider Christina Roe PA-C Unavailable [phone] Crhistina Roe PA-C Unavailable Richie Rowell [facility] Unavailable Richie Rowell [facility] Unavailable Reason for Visit * Reason Comments Consult For Giant Cell Arteritis Encounter Details Date Type Department Care Team (Late st Contact Info) Description 05/07/2024 8:00 AM CDT Office Visit [facility] Eye [facility] - [address] 4th [place] [address] Saeed Berry MD [address] [place] [address], CLINIC [address] [place] [address] Arcuate scotoma of both eyes (Primary [...] on file Legal Sex Female 3:41 AM UNIT LEADER Gender Identity Not on file Sexual Orientation [...] Long- term management will fall to her can stacker and patient would likely benefit from Actemra [...] st Contact Info) Description 07/08/2024 9:30 AM UNIT LEADER Virtual Visit [facility] Rheumatology [facility] 1600 [facility] 101 [place] [phone] Zhane Crain MD [address] [place] [address] Richie Rowell, [facility] 909 [place] [address] 07/31/2024 2:00 PM UNIT LEADER Office Visit [facility] 2945 [facility] [address] [place] [phone] Christina Roe PA-C [address] [place] [address] documented as of this encounter Procedures Procedure [...] Interval: Initial . Saeed Berry MD OPHTHALMOLOGY Final Result * [...] Interval: Initial . Saeed Berry MD OPHTHALMOLOGY Final Result documented in this encounter Visit Diagnoses Diagnosis Arcuate scotoma of both eyes- Primary documented in this encounter Care Teams Bus Starter Relationship Specialty Start Date End Date Feliciano Uribe MD [facility] [address] [place] [address] PCP - General Family Medicine 06/01/23 Crhistina Roe PA-C [address] [place] [address] Physician Long Term Care Administrator Rheumatology 11/06/23 Christina Roe PA-C [address] [place] [address] Assigned Rheumatology Provider 11/09/23 Richie Rowell RPH [address] [place] [address] Pharmacist Pharmacist 04/08/24 Richie Rowell RPH [address] [place] [address] Assigned MTM Pharmacist 04/18/24 documented as of this encounter
--- OUTSIDE RECORDS SUMMARY | 2024-06-24 08:59 | XMS_ITS | Encounter Summary ---
Author Organization [place] Address [address] [place] [address] Care Team Providers Care Proof Load Mechanic Name Role Phone Feliciano Uribe MD Primary Care Provider Christina Roe PA-C Unavailable [phone] Christina Roe PA-C Unavailable Richie Rowell [facility] Unavailable Richie Rowell [facility] Unavailable Zhane Crain MD Unavailable Saeed Berry MD Unavailable [phone] Encounter Details Date Type Department Care Team (Late st Contact Info) Description 06/04/2024 [facility] Medical Advice [address] [place] [address] Christina Roe PA-C [address] [place] [address] Temporal arteritis (H); PMR (polymyalgia rheumatica) (H) Social History Tobacco Use Types Packs/Day [...] on file Legal Sex Female 3:41 AM PILER Gender Identity Not on file Sexual Orientation Not on file documented as of this encounter Plan of Treatment Upcoming Encounters Date Type Department Care Team (Late st Contact Info) Description 07/08/2024 9:30 AM PILER Virtual Visit [facility] Rheumatology [facility] 1600 [facility] [address] [place] [phone] Zhane Crain MD 500 [place], [place] [phone] [facility] 909 [place] [address] 07/31/2024 2:00 PM PILER Office Visit [facility] 2945 [facility] [address] [place] [phone] Christina Roe PA-C [address] [place] [address] documented as of this encounter Visit Diagnoses Diagnosis Temporal arteritis (H) Giant cell arteritis PMR (polymyalgia rheumatica) (H) Polymyalgia rheumatica documented in this encounter Care Teams Proof Load Mechanic Relationship Specialty Start Date End Date Feliciano Uribe MD [address] [address] PCP - General Family Medicine 06/01/23 Christina Roe PA-C [address] [place] [address] Physician Permastone Installer Rheumatology 11/06/23 Christina Roe PA-C [address] [place] [address] Assigned Rheumatology Provider 11/09/23 Richie Rowell RPH [address] [place] [address] Pharmacist Pharmacist 04/08/24 Richie Rowell RPH [address] [place] [address] Assigned MTM Pharmacist 04/18/24 Zhane Crain MD [address] [place] [address] Physician Rheumatology 05/14/24 Saeed Berry MD [address] [place] [address] 457115 Assigned Surgical Provider 05/19/24 documented as of this encounter
--- OUTSIDE RECORDS SUMMARY | 2024-06-24 08:59 | XMS_ITS | Encounter Summary ---
Author Organization [place] Address [address] [place] [address] Care Team Providers Care Maintenance Repairer Name Role Phone Feliciano Uribe MD Primary Care Provider [phone] Christina Roe PA-C Unavailable Christina Roe PA-C Unavailable Richie Rowell [facility] Unavailable Richie Rowell [facility] Unavailable Zhane Crain MD Unavailable Reason for Visit * Reason Onset Date Comments Medication Question 05/09/2024 Tocilizumab (ACTEMRA ACTPEN) 162 MG/0.9ML SOAJ Encounter Details Date Type Department Care Team (Late st Contact Info) Description 05/09/[address] [place] [address] Zhane Crain MD [address] [place] [address] Medication Question (Tocilizumab (ACTEMRA ACTPEN) 162 [...] on file Legal 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 Gender Identity Not on file Sexual Orientation [...] with these two injection types because Richie Sorin [facility] briefly showed her the two options, and [...] Radha Nava - 05/09/2024 3:55 PM CDT [facility] Call Center Phone Message May a detailed message be left on voicemail: yes Reason for Call: Medication Question or concern regarding medication Prescription Clarification Name of Medication: Tocilizumab (ACTEMRA ACTPEN) 162 MG/0.9ML SOAJ Prescribing Provider: Zhane Crain MD Pharmacy: [facility] - [address] What on the order needs clarification? [...] st Contact Info) Description 07/08/2024 9:30 AM PLASTIC TOP ASSEMBLER Virtual Visit [facility] Rheumatology [facility] 1600 [facility] [address] [place] [phone] Zhane Crain MD [address] [place] [address] 5248[address] Richie Rowell [facility] 909 [place], [place] [address] 07/31/2024 2:00 PM PLASTIC TOP ASSEMBLER Office Visit [facility] 2945 [facility] [address] [place] [phone] Christina Roe PA-C [address] [place] [address] documented as of this encounter Visit Diagnoses Not on filedocumented in this encounter Care Teams Maintenance Repairer Relationship Specialty Start Date End Date Feliciano Uribe MD [address] [address] PCP - General Family Medicine 06/01/23 Christina Roe PA-C [address] [place] [address] Physician Electrical Equipment Tester Rheumatology 11/06/23 Christina Roe PA-C [address] [place] [address] Assigned Rheumatology Provider 11/09/23 Richie Rowell RPH [address] [place] [address] [phone] Pharmacist Pharmacist 04/08/24 Richie Rowell RPH [address] [place] [address] 111655 Assigned MTM Pharmacist 04/18/24 Zhane Crain MD [address] [place] [address] [phone] Physician Rheumatology 05/14/24 documented as of this encounter
--- OUTSIDE RECORDS SUMMARY | 2024-06-24 08:59 | XMS_ITS | Encounter Summary ---
Author Organization [place] Address [address] [place] [address] Care Team Providers Care Venetian Blind Washer Name Role Phone Feliciano Uribe MD Primary Care Provider [phone] Christina Roe PA-C Unavailable [phone] Christina Roe PA-C Unavailable [phone] Richie Rowell [facility] Unavailable Richie Rowell [facility] Unavailable Zhane Crain MD Unavailable Saeed Berry MD Unavailable [phone] Encounter Details Date Type Department Care Team (Late st Contact Info) Description 05/09/2024 MyC Medical Advice [facility] [address] [place] [address] Adalberto Boles Social History Tobacco Use [...] on file Legal Sex Female 3:41 AM HAND DEICER ELEMENT WINDER Gender Identity Not on file Sexual Orientation Not on file documented as of this encounter Plan of Treatment Upcoming Encounters Date Type Department Care Team (Late st Contact Info) Description 07/08/2024 9:30 AM HAND DEICER ELEMENT WINDER Virtual Visit [facility] Rheumatology [facility] 1600 [facility] [address] [place] [phone] Zhane Crain MD [address] [place] [address] Richie Rowell RPH [address] [place] [address] 07/31/2024 2:00 PM HAND DEICER ELEMENT WINDER Office Visit [facility] 2945 [facility] 200 [place] [phone] Christina Roe PA-C 5[address] [place] [address] documented as of this encounter Visit Diagnoses Not on filedocumented in this encounter Care Teams Venetian Blind Washer Relationship Specialty Start Date End Date Feliciano Uribe MD [address] [address] PCP - General Family Medicine 06/01/23 Christina Roe PA-C [address] [place] [address] Physician Warehouse Order Selector Rheumatology 11/06/23 Christina Roe PA-C [address] [place] [address] Assigned Rheumatology Provider 11/09/23 Richie Rowell RPH [address] [place] [address] [phone] Pharmacist Pharmacist 04/08/24 Richie Rowell Justine [address]09 [place] [address] Assigned MTM Pharmacist 04/18/24 Zhane Crain MD [address] [place] [address] Physician Rheumatology 05/14/24 Saeed Berry MD [address] [place] [address] Assigned Surgical Provider 05/19/24 documented as of this encounter
--- OUTSIDE RECORDS SUMMARY | 2024-06-24 08:59 | XMS_ITS | Encounter Summary ---
Author Organization [place] Address [address] [place] [address] Care Team Providers Care Massage Therapist Name Role Phone Feliciano Uribe MD Primary Care Provider Christina Roe PA-C Unavailable Christina Roe PA-C Unavailable Richie Rowell [facility] Unavailable Richie Rowell [facility] Unavailable Reason for Visit * Reason Onset Date Comments Previsit 05/07/2024 Encounter Details Date Type Department Care Team (Late st Contact Info) Description 05/07/2024 PRE VISIT [facility] Eye 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 Yuna * 03/25/24 - EYE OV with Dr. Kelly * 03/24/24, 03/23/24 - EYE OV with Dr. Canales * 03/22/24 - EYE OV with Dr. Anderson [facility] 03/20/24 - RHEUM OV with ANTWON [facility] - Imaging 03/22/24 - CTV Head/Neck 03/22/24 - MRA Brain COW 03/22/24 - MRI Brain/Orbits [facility] PACs documented in this encounter Plan of Treatment Upcoming Encounters Date Type Department Care Team (Late st Contact Info) Description 07/08/2024 9:30 AM BALANCING MACHINE SET UP WORKER Virtual Visit [facility] Rheumatology [facility] 1600 [facility] 101 [place] [phone] Zhane Crain MD [address] [place] [address] Richie Rowell, [facility] 909 [place], [place] 6[address] 07/31/2024 2:00 PM BALANCING MACHINE SET UP WORKER Office Visit [facility] 2945 [facility] 200 [place] [phone] Christina Roe PA-C [address] [place] [address] documented as of this encounter Visit Diagnoses Not on filedocumented in this encounter Care Teams Massage Therapist Relationship Specialty Start Date End Date Feliciano Uribe MD [address] [address] PCP - General Family Medicine 06/01/23 Christina Roe PA-C 5[address] [place] [address] Physician Glassware Maker Rheumatology 11/06/23 Christina Roe PA-C [address] [place] [address] Assigned Rheumatology Provider 11/09/23 Richie Rowell RPH [address] [place] [address] Pharmacist Pharmacist 04/08/24 Richie Rowell RPH [address] [place] [address] Assigned [place] Pharmacist 04/18/24 documented as of this encounter
--- OUTSIDE RECORDS SUMMARY | 2024-06-24 08:59 | XMS_ITS | Encounter Summary ---
Author Organization [place] Address [address] [place] [address] Care Team Providers Care Nuisance Wildlife Specialist Name Role Phone Feliciano Uribe MD Primary Care Provider Christina Roe PA-C Unavailable Christina Roe PA-C Unavailable Richie Rowell [facility] Unavailable Richie Rowell [facility] Unavailable Encounter Details Date Type Department [...] on file Legal Sex Female 3:41 AM HEAVY MACHINERY ASSEMBLER Gender Identity Not on file Sexual Orientation Not on file documented as of this encounter Plan of Treatment Upcoming Encounters Date Type Department Care Team (Late st Contact Info) Description 07/08/2024 9:30 AM HEAVY MACHINERY ASSEMBLER Virtual Visit [facility] Rheumatology [facility] 1600 [facility] [address] [place] [address] Zhane Crain MD [address] [place] [address] Richie Rowell RPH 909 [place] [address] 07/31/2024 2:00 PM HEAVY MACHINERY ASSEMBLER Office Visit [facility] 2945 [facility] [address] [place] [address] Christina Roe PA-C [address] [place] [address] documented as of this encounter Visit Diagnoses Not on filedocumented in this encounter Care Teams Nuisance Wildlife Specialist Relationship Specialty Start Date End Date Feliciano Uribe MD [address] [address] PCP - General Family Medicine 06/01/23 Christina Roe PA-C [address] [place] [address] Physician Power System Operator Rheumatology 11/06/23 Christina Roe PA-C [address] [place] [address] Assigned Rheumatology Provider 11/09/23 Richie Rowell RPH 9 [place] [address] Pharmacist Pharmacist 04/08/24 Richie Rowell RPH 9 [place] [address] Assigned MTM Pharmacist 04/18/24 documented as of this encounter
--- OUTSIDE RECORDS SUMMARY | 2024-06-24 08:59 | XMS_ITS | Referral Summary ---
Author Organization [facility] Address [address] [place] [address] Care Team Providers Care Food Service Driver Name Role Phone Feliciano Uribe MD Primary Care Provider Christina Roe PA-C Unavailable Christina Roe PA-C Unavailable Richie Rowell RPH Unavailable Richie Rowell RPH Unavailable Zhane Crain MD Unavailable Saeed Berry MD Unavailable [phone] Encounters Date Type Department Care Team Description 06/12/[address] [place] [address] Christina Roe PA-C Call Back 06/04/2024 MyC Medical Advice [facility] [address] [place] [address] Christina Roe PA-C Temporal arteritis (H); PMR (polymyalgia rheumatica) (H) 05/21/2024 MyC Medical Advice [facility] Rheumatology [facility] [address] [facility] [address] [place] [address] Richie Rowell RPH 05/20/2024 9:30 AM CDT Virtual Visit [facility] [address] [facility] [address] [place] [address] Zhane Crain MD Krier, John [facility] GCA (giant cell arteritis) (H) (Primary Dx); PMR (polymyalgia rheumatica) (H); Vaccine counseling 05/13/2024 Telephone [facility] [address] [facility] [address] [place] [address] Zhane Crain MD Orders 05/13/2024 MyC Medical Advice [address] [place] [address] Christina Roe PA-C 05/09/2024 Telephone [facility] [address] [place] [address] Zhane Crain MD Medication Question (Tocilizumab (ACTEMRA ACTPEN) 162 MG/0.9ML SOAJ /) 05/09/2024 MyC Medical Advice [facility] [address] [phone] Adalberto Boles 05/07/2024 Travel 05/07/2024 PRE VISIT [facility] [address] [phone] Saeed Berry MD Previsit 05/07/2024 8:00 AM CDT Office Visit [facility] [address] [phone] Saeed Berry MD Arcuate scotoma of both eyes (Primary Dx) 05/06/2024 Orders Only [facility] [address] [phone] Saeed Berry MD Visual field defect (Primary Dx) 05/06/2024 MyC Medical Advice [address] [place] [phone] Christina Roe PA-C 05/02/2024 MyC Medical Advice [address] 1st [place] [phone] Adalberto Boles 05/02/2024 Telephone [facility] [place] [address] [facility] 4th [place] [phone] Saeed Berry MD 04/23/2024 MyC Medical Advice [place] [address] [place] [phone] Zhane Crain MD 04/22/2024 Travel 04/22/2024 2:20 PM CDT Ancillary Procedure [facility] [address] [place] [phone] Zhane Crain MD GCA (giant cell arteritis) (H); Pain in right lower leg 04/22/2024 1:15 PM CDT Therapy Visit [facility] [address] [phone] Christina Roe PA-C Solie, Jessica, OT Temporal arteritis (H) (Primary Dx); Generalized muscle weakness 04/21/2024 MyC Medical Advice [facility] [address] [facility] [address] [place] [phone] Richie Rowell RPH 04/17/2024 12:50 PM CDT Lab [facility] Laboratory [facility] [place] [phone] GCA (giant cell arteritis) (H); PMR (polymyalgia rheumatica) (H); Need for hepatitis B screening test 04/17/2024 12:30 PM CDT Office Visit [facility] [address] [place] [address] Zhane Crain MD GCA (giant cell arteritis) (H); Pain in right lower leg 04/16/2024 Travel 04/14/2024 MyC Medical Advice [facility] [address] [facility] 1st [place] [address] Adalberto Boles 04/14/2024 Travel 04/14/2024 10:45 AM CDT Therapy Visit [address] [place] [address] Kristel Madrid, PT Temporal arteritis (H) (Primary Dx); PMR (polymyalgia rheumatica) (H); Impaired gait and mobility 04/10/2024 MyC Medical Advice [facility] [address] [facility] [address] [place] [address] Richie Rowell [facility] 04/09/2024 MyC Medical Advice [facility] [address] [facility] [address] [place] [address] Richie Rowell [facility] 04/09/2024 Travel 04/09/2024 11:45 AM CDT Therapy Visit [address] [place] [phone] Christina Roe PA-C Solie, Jessica, OT Cognitive changes (Primary Dx); Temporal arteritis (H); PMR (polymyalgia rheumatica) (H); Generalized muscle weakness 04/09/2024 PRE VISIT [facility] [address] [phone] Saeed Berry MD 04/09/2024 10:30 AM CDT Therapy Visit [address] [place] [phone] Luz Yuan MD Archbold, Sue Baldwin, PT Temporal arteritis (H) (Primary Dx); PMR (polymyalgia rheumatica) (H); Impaired gait and mobility 04/08/2024 Telephone [facility] [address] [place] [phone] Zhane Crain MD Prior Auth - Medication (Actemra) 04/08/2024 9:30 AM CDT Virtual Visit [facility] [address] [facility] [address] [place] [phone] Zhane Crain MD [facility] GCA (giant cell arteritis) (H) (Primary Dx); PMR (polymyalgia rheumatica) (H); Vaccine counseling; Primary hypertension; Hyperlipidemia, unspecified hyperlipidemia type; Anxiety; Depression, unspecified depression type; Hypothyroidism, unspecified type; Takes dietary supplements; Need for hepatitis B screening test 04/02/2024 Travel 04/02/2024 2:15 PM CDT Therapy Visit [facility] [place] [address] [place] [address] [address] [place] [address] Luz Yuan MD Archbold, Sue Baldwin, PT Impaired gait and mobility (Primary Dx); Temporal arteritis (H); PMR (polymyalgia rheumatica) (H) 03/28/2024 Telephone [facility] [address] Clin [address] [place] [phone] Jorge Kelly MD Appointment 03/27/2024 MyC Medical Advice [address] [facility] [address] [place] [phone] [facility] 03/27/[address] [facility] [address] [place] [address] Saeed Berry MD 03/22/2024 8:48 AM CDT - 03/26/2024 6:45 PM CDT Hospital Encounter [facility]cology [address] [place] [address] Jona Sears MD Hozayen, Sameh M, MD Davis, Elizabeth M, MD Urinary tract infection without hematuria, site unspecified (Primary Dx); Temporal arteritis (H); PMR (polymyalgia rheumatica) (H); Decreased vision of right eye; Right temporal headache; Neck pain Discharge Disposition: Home or Self Care 03/25/2024 3:10 PM CDT Anesthesia Event [facility] [address] [place] [address] Shari Mckeon MD Kalina, Lucas, APRN CRNA 03/25/2024 Ophth Exam [facility] Care Service Line [address] [place] [phone] Jorge Kelly MD 03/25/2024 2:00 PM CDT - 03/25/2024 3:10 PM CDT Surgery [facility] [address] [place] [address] Richie Hawk DO Bilateral temporal Artery Biopsy 03/24/2024 Orders Only [facility] [address] [phone] Ashwin Galo MD Temporal arteritis (H) (Primary Dx); GCA (giant cell arteritis) (H) 03/24/2024 Ophth Exam [facility] Care Service Line [address] [place] [phone] [place] Canales MD from Last 3 Months Allergies Active Allergy Reactions Criticality Noted Date Comments Aspirin 11/06/2023 Contraindicated due to hx of gastric bypass Medications amoxicillin (AMOXIL) 500 MG capsule TAKE 4 CAPSULES BY MOUTH 1 HOUR BEFORE DENTAL APPOINTMENT FOR 1 DOSE 11/07/19 23 Active atorvastatin (LIPITOR) 10 MG tablet Take 10 mg by mouth at bedtime Active D3-50 1.25 MG (99519 UT) capsule Take 1,250 mcg by mouth [...] DT (PEDS <7y) 01/30/1980 Flu, Unspecified 06/21/2020,05/05/2011 [id number] Novel Flu 06/28/2009 Influenza (High Dose) Trival [...] on file Legal Sex Female 3:41 AM JOCKEY'S AGENT Gender Identity Not on file Sexual Orientation [...] st Contact Info) Description 07/08/2024 9:30 AM JOCKEY'S AGENT Virtual Visit [facility] Rheumatology [facility] [address] [facility] [address] [place] [phone] Zhane Crain MD [address] [place] [address] Richie Rowell, [facility] [address] [place], [place] [address] 07/31/2024 2:00 PM JOCKEY'S AGENT Office Visit [facility] [address] [place] [phone] Christina Roe PA-C [address] [place] [address] Procedures Procedure Name Priority Date/Time Associated Diagnosis [...] AM CDT CBC WITH PLATELETS Routine 03/24/2024 5 :30 PM CDT US TEMPORAL ARTERIES DUPLEX Routine [...] US LOWER EXTREMITY VENOUS DUPLEX RIGHT LOCATION: [facility] DATE: 04/22/2024 INDICATION: ??GCA (giant cell arteritis) [...] US LOWER EXTREMITY VENOUS DUPLEX RIGHT LOCATION: [facility] DATE: 04/22/2024 INDICATION: GCA (giant cell arteritis) [...] right lower extremity. Zhane Crain MD [facility] ORDERA BLES Final Result * Quantiferon TB Gold Plus (04/17/2024 1:11 PM CDT) Pathologist [facility] Quantiferon-TB Gold Plus Negative Negative 04/18/2024 5:06 [...] SPECIALTY CORE/PROT/ENDO UM Specialty Core/Prot/Endo [address] [facility] J [facility], [address] * Quantiferon TB Gold Plus Purple Tube (04/17/2024 1:11 PM CDT) Pathologist [facility] Quantiferon Mitogen 2.03 IU/mL 04/18/2024 4:17 PM CDT SPECIALTY CORE/PROT/ENDO Blood BLOOD SPECIMEN / Unknown Venipuncture / Unknown 04/17/2024 1:11 PM CDT 04/17/2024 1:24 PM CDT Zhane Crain MD LAB - MICRO G ENERAL ORDERABLES Final Result UM SPECIALTY CORE/PROT/ENDO UM Specialty Core/Prot/Endo 500 [facility] J [facility], [address] * Quantiferon TB Gold Plus Yellow Tube (04/17/2024 1:11 PM CDT) Quantiferon TB2 Tube 0.00 04/18/2024 4:18 PM CDT UM SPECIALTY CORE/PROT/ENDO Blood BLOOD SPECIMEN / Unknown Venipuncture / Unknown 04/17/2024 1:11 PM CDT 04/17/2024 1:24 PM CDT Zhane Crain MD LAB - MICRO G ENERAL ORDERABLES Final Result UM SPECIALTY CORE/PROT/ENDO UM Specialty Core/Prot/Endo [address] [facility] [address] [facility], [address] * Quantiferon TB Gold Plus Green Tube (04/17/2024 1:11 PM CDT) Quantiferon TB1 Tube 0.00 IU/mL 04/18/2024 4:18 PM CDT UM SPECIALTY CORE/PROT/ENDO Blood BLOOD SPECIMEN / Unknown Venipuncture / Unknown 04/17/2024 1:11 PM CDT 04/17/2024 1:24 PM CDT Zhane Crain MD LAB - MICRO G ENERAL ORDERABLES Final Result UM SPECIALTY CORE/PROT/ENDO UM Specialty Core/Prot/Endo [address] [facility] [address] [facility], [address] * Quantiferon TB Gold Plus Plunkett Tube (04/17/2024 1:11 PM CDT) Quantiferon Nil Tube 0.00 IU/mL 04/18/2024 4:18 PM CDT SPECIALTY CORE/PROT/ENDO Blood BLOOD SPECIMEN / Unknown Venipuncture / Unknown 04/17/2024 1:11 PM CDT 04/17/2024 1:24 PM CDT us Zhane Crain MD LAB - MICRO G ENERAL ORDERABLES Final Result UM SPECIALTY CORE/PROT/ENDO Specialty Core/Prot/Endo [address] [facility], Room [address] * Lipid panel reflex to direct [...] O RDERABLES Final Result Performing Organization Address City/[facility] Co de Phone Number LABORATORY [facility] Core Lab 500 [facility], Room [address] [place] [address] * Hepatitis C antibody (04/17/2024 1:11 PM CDT) [facility] Hepatitis C Antibody Nonreactive Nonreactive 04/17/2024 8:05 [...] O RDERABLES Final Result Performing Organization Address City/[facility] Co de Phone Number LABORATORY [facility] Core Lab 500 [facility], [address] [phone] * Hepatitis B surface antigen (04/17/2024 1:11 PM CDT) [facility] Hepatitis B Surface Antigen Nonreactive Nonreactive 04/17/2024 8:05 PM CDT U LABORATORY Blood STRUCTURE OF RIGHT UPPER LIMB / Unknown Venipuncture / Unknown 04/17/2024 1:11 PM CDT 04/17/2024 1:24 PM CDT Zhane Crain MD LAB - BLOOD O RDERABLES Final Result Performing Organization Address City/[facility]/ZIP Co de Phone Number LABORATORY [facility] Core Lab [address] [facility], [address] [phone] * Hepatitis B core antibody (04/17/2024 1:11 PM CDT) [facility] Hepatitis B Core Antibody Total Nonreactive Nonreactive [...] O RDERABLES Final Result Performing Organization Address [facility] Co de Phone Number LABORATORY [facility] Core Lab [address] [facility], [address] [phone] * Erythrocyte sedimentation rate auto (04/17/2024 1:11 PM CDT) Only the most recent of4 resultswithin the time period is included. [facility] Erythrocyte Sedimentation Rate 5 0 - 30 mm/hr 04/17/2024 1:43 PM CDT [facility] LABORATORY Blood STRUCTURE OF RIGHT UPPER LIMB / Unknown Venipuncture / Unknown 04/17/2024 1:11 PM CDT 04/17/2024 1:24 PM CDT Zhane Crain MD LAB - BLOOD O RDERABLES Final Result [place] [phone] * CRP inflammation (04/17/2024 1:11 PM CDT) Only the most recent of4 resultswithin the time period is included. CRP Inflammation <3.00 <5.00 mg/L 04/17/20 7:43 PM CDT [facility] LABORATORY Blood STRUCTURE OF RIGHT UPPER LIMB / Unknown Venipuncture / Unknown 04/17/2024 1:11 PM CDT 04/17/2024 1:24 PM CDT Zhane Crain MD LAB - BLOOD O RDERABLES Final Result U LABORATORY [facility] Core Lab [address] [facility], [address] [phone] * Creatinine (04/17/2024 1:11 PM CDT) [...] BLOOD O RDERABLES Final Result U LABORATORY [facility] Lab [address] [facility], Room [address] [place] [phone] * AST (04/17/2024 1:11 PM CDT) Pathologist [facility] AST 42 0 - 45 U/L 04/17/2024 7:4 3 PM CDT [facility] LABORATORY Blood STRUCTURE OF RIGHT UPPER LIMB / Unknown Venipuncture / Unknown 04/17/2024 1:11 PM CDT 04/17/2024 1:24 PM CDT Zhane Crain MD LAB - BLOOD O RDERABLES Final Result [facility] LABORATORY [facility] [address] [facility], [address] [place] [phone] * (ABNORMAL) ALT (04/17/2024 1:11 PM CDT) Pathologist [facility] ALT 101(H) 0 - 50 U/L 04/17/2024 7:43 PM CDT [facility] LABORATORY Blood STRUCTURE OF RIGHT UPPER LIMB / Unknown Venipuncture / Unknown 04/17/2024 1:11 PM CDT 04/17/2024 1:24 PM CDT Zhane Crain MD LAB - BLOOD O RDERABLES Final Result [facility] LABORATORY [facility] [address] [facility], [address] [place] [phone] * (ABNORMAL) CBC with platelets (04/17/2024 1:11 PM CDT) Only the most recent of4 resultswithin the time period is included. WBC [...] O RDERABLES Final Result Performing Organization Address [facility]/State/[facility] Co de Phone Number [facility] [address] * (ABNORMAL) Basic metabolic panel (03/26/2024 [...] 8:30 AM CDT [facility] LABORATORY Comment:eGFR calculated 2020 CKD-EPI equation. Calcium 8.3(L) 8.8 - [...] CDT Kristel Acosta MD LAB - BLOOD ORDERABLES Final Result [facility] LABORATORY [facility] [address] [facility], [address] [place] [phone] * Surgical Pathology Exam (03/25/2024 4:29 PM CDT) Case Report Surgical Pathology Report ? Case: [id number] ? Authorizing Provider: ??Richie Dominguez ? Collected: [...] component of this testing was completed at [facility]. Stain controls for [...] 4:33 PM CDT 03/25/2024 5:08 PM CDT us Richie LUNDBERG - SUSIE AMEZCUA Final Result SPECIALTY LABS UM Specialty Lab [address] [facility] [address] [facility], [address] [place] [address], [facility] UU LABORATORY [facility] Core Lab 500 [facility] [address] [facility], [address] [place] [address], [facility] * ANE AIRWAY ETT PERFORMABLE (03/25/2024 3:23 PM CDT) Narrative Saeed Yuen RN - 03/25/2024 3:23 PM CDT Saeed Yuen RN ? 03/25/2024 ??3:53 PM Airway ? Patient location during procedure: OR ? Procedure Start/Stop Times: 03/25/2024 3:23 PM Staff - ? SINGLE STAYER OPERATOR: Margarita Gracia APRN CRNA ? Other Anesthesia Staff: Saeed Yuen RN ? Performed By: SINGLE STAYER OPERATOR and SRNA Consent for Airway ? Urgency: [...] Time: 03/25/2024 3:23 PM Shari Mckeon MD [place] ANESTHESIA Final Result * (ABNORMAL) CBC with [...] BLOOD ORDER LUCILLE Final Result [facility] LABORATORY [facility] Core Lab [address] [facility], [address] [phone] * US Temporal Arteries Duplex (03/24/2024 3:02 [...] MICHAEL SOLIS MD us Kristel Acosta MD IMG US ORDERABLES Final Resul t * TSH (03/22/2024 8:45 AM CDT) TSH 2.40 0.30 - 4.20 uIU/mL 03/22/2024 10:19 AM CDT [facility] LABORATORY Blood BLOOD SPECIMEN / Unknown Venipuncture / Unknown 03/22/2024 8:45 AM CDT 03/22/2024 9:23 AM CDT us Jona Sears MD LAB - BLOOD ORDERABLES Daylin l Result UU LABORATORY [facility] Core Lab [address] [facility], [address] [place] [address] from Last 3 Months or Most Recently Relevant to Health Maintenance Insurance [facility] [place] MEDICARE [facility] MEDICARE * Guarantor: Gato Jimenez Account Type Relation to Patient Date of Phone Billing Address Medication Therapy Self [address] [place] [id number] MEDICARE [facility] [employer] BLUE [facility] [employer] BLUE MEDICARE Advance Directives For more information, please contact: [phone] * Full Code (Latest Code Status on [...] patie nt/ legal decision maker Care Teams Food Service Driver Relationship Specialty Start Date End Date Feliciano Uribe MD [address] [address] PCP - General Family Medicine 06/01/23 Christina Roe PA-C [address] [place] [address] Physician Plate Washer Rheumatology 11/06/23 Christina Roe PA-C [address] [place] [address] Assigned Rheumatology Provider 11/09/23 Richie Rowell Justine [address] [place] [address] Pharmacist Pharmacist 04/08/24 Richie Rowell [facility] [address] [place] [address] Assigned MTM Pharmacist 04/18/24 Zhane Crain MD [address] [place] [address] Physician Rheumatology 05/14/24 Saeed Berry MD [address] [address] Assigned Surgical Provider 05/19/24
--- OUTSIDE RECORDS SUMMARY | 2024-06-24 08:59 | XMS_ITS | Encounter Summary ---
Author Organization [facility] Address [address] [place] [address] Care Team Providers Care Laboratory Sampler Name Role Phone Feliciano Uribe MD Primary Care Provider Christina Roe PA-C Unavailable [phone] Christina Roe PA-C Unavailable Richie Rowell [facility] Unavailable Richie Rowell [facility] Unavailable Zhane Crain MD Unavailable Saeed Berry MD Unavailable [phone] Reason for Visit * Reason Onset Date Comments Call Back 06/12/2024 Encounter Details Date Type Department Care Team (Late st Contact Info) Description 06/12/[address] [place] [address] Christina Roe PA-C [address] [place] [address] Call Back Social History Tobacco Use Types Packs/Day Years [...] on file Legal Sex Female 3:41 AM PUBLIC ADDRESS ANNOUNCER Gender Identity Not on file Sexual Orientation Not on file documented as of this encounter Miscellaneous Notes * Telephone Encounter - Desiree Huff - 06/13/2024 9:58 AM CDT Called and spoke to patient. * Telephone Encounter - Mary Johnson - 06/12/2024 10:27 AM CDT [facility] Call Center Phone Message May a detailed message be left on voicemail: yes Reason for Call: Other: Pt returning call received yesterday, 06/11/24 from Jen. Pt available anytime today for a call back at [phone]. Thanks! Action Taken: Message routed to: Other: [facility]HEUM Travel Screening: Not Applicable Date of Service: 06/12/2024 documented in this encounter Plan of Treatment Upcoming Encounters Date Type Department Care Team (Late st Contact Info) Description 07/08/2024 9:30 AM PUBLIC ADDRESS ANNOUNCER Virtual Visit [facility] Rheumatology [facility] [address] [facility] [address] [place] [phone] Zhane Crain MD [address] [place] [phone] Richie Rowell, [facility] [address] [place], [place] [phone] 07/31/2024 2:00 PM PUBLIC ADDRESS ANNOUNCER Office Visit [facility] [address] [place] [phone] Christina Roe PA-C [address] [place] [address] documented as of this encounter Visit Diagnoses Not on filedocumented in this encounter Care Teams Laboratory Sampler Relationship Specialty Start Date End Date Feliciano Uribe MD [facility] [address] [place] [address] PCP - General Family Medicine 06/01/23 Christina Roe PA-C [address] [place] [address] Physician Performance Test Engineer Rheumatology 11/06/23 Christina Roe PA-C [address] [place] [address] Assigned Rheumatology Provider 11/09/23 Richie Rowell [facility] [address] [place] [phone] Pharmacist Pharmacist 04/08/24 Richie Rowell [facility] [address] [place] [phone] Assigned MTM Pharmacist 04/18/24 Zhane Crain MD [address] [place] [phone] Physician Rheumatology 05/14/24 Saeed Berry MD [address] [place] [address] Assigned Surgical Provider 05/19/24 documented as of this encounter
--- OUTSIDE RECORDS SUMMARY | 2024-06-24 08:59 | XMS_ITS | Encounter Summary ---
Author Organization [place] Address [address] [place] [address] Care Team Providers Care Radiator Tester Name Role Phone Feliciano Uribe MD Primary Care Provider [phone] Christina Roe PA-C Unavailable Christina Roe PA-C Unavailable Richie Rowell [facility] Unavailable Richie Rowell [facility] Unavailable Zhane Crain MD Unavailable Reason for Visit * Reason Onset Date Comments Orders 05/13/2024 Encounter Details Date Type Department Care Team (Late st Contact Info) Description 05/13/2024 Telephone [facility] [address] [facility] [address] [place] [address] Zhane Crain MD [address] [place] [address] Orders Social History Tobacco Use Types [...] on file Legal Sex Female 3:41 AM PREFLIGHT INSPECTOR Gender Identity Not on file Sexual Orientation Not on file documented as of this encounter Miscellaneous Notes * Telephone Encounter - Alba Vick RP - 05/15/2024 8:15 AM CDT Patient contacted clinic and prefers pre-filled syringes. Will resend preferred product via [facility] CPAwith Dr. Crain. Alba Vick, Tory Medication Therapy Management Pharmacist [facility]ology [facility] * Telephone Encounter - Richie Rowell RPH - 05/13/2024 1:47 PM CDT Actemra reordered per CPA with Dr. Crain. Richie Rowell PharmD Medication Therapy Management Pharmacist [facility] * Addendum Note - Alba Vick RPH - 05/13/2024 1:47 PM CDTAddended by: ALBA VICK on: 05/15/2024 08:24 AM Modules accepted: Orders documented in this encounter Plan of Treatment Upcoming Encounters Date Type Department Care Team (Late st Contact Info) Description 07/08/2024 9:30 AM PREFLIGHT INSPECTOR Virtual Visit [facility] Rheumatology [facility] [address] [facility] [address] [place] [address] Zhane Crain MD [address] [place], [place] [address] Richie Rowell RPH [address] [place], [place] [address] 07/31/2024 2:00 PM PREFLIGHT INSPECTOR Office Visit [facility] [address] [facility] [address] [place] [address] Christina Roe PA-C [address] [place] [address] documented as of this encounter Visit Diagnoses Diagnosis GCA (giant cell arteritis) (H)- Primary Giant cell arteritis documented in this encounter Care Teams Radiator Tester Relationship Specialty Start Date End Date Feliciano Uribe MD [address] [address] PCP - General Family Medicine 06/01/23 Christina Roe PA-C [address] [place] [address] Physician Clinical Material Handler Rheumatology 11/06/23 Christina Roe PA-C [address] [place] [address] Assigned Rheumatology Provider 11/09/23 Richie Rowell [facility] [address] [place] [address] Pharmacist Pharmacist 04/08/24 Richie Rowell [facility] [address] [place] [address] Assigned MTM Pharmacist 04/18/24 Zhane Crain MD [address] [place] [address] Physician Rheumatology 05/14/24 documented as of this encounter
--- OUTSIDE RECORDS SUMMARY | 2024-06-24 08:59 | XMS_ITS | Encounter Summary ---
Author Organization [place] Address [address] [place] [address] Care Team Providers Care Electric Motors Salesperson Name Role Phone Feliciano Uribe MD Primary Care Provider Christina Roe PA-C Unavailable Christina Roe PA-C Unavailable Richie Rowell [facility] Unavailable Richie Rowell [facility] Unavailable Zhane Crain MD Unavailable Saeed Berry MD Unavailable [phone] Encounter Details Date Type Department Care Team (Late st Contact Info) Description 05/21/2024 MyC Medical Advice [facility] Rheumatology [facility] [address] [facility] [address] [place] [address] Richie Rowell, [facility] [address] [place] [address] Social History Tobacco Use Types Packs/Day [...] on file Legal Sex Female 3:41 AM METER READERS SUPERVISOR Gender Identity Not on file Sexual Orientation Not on file documented as of this encounter Plan of Treatment Upcoming Encounters Date Type Department Care Team (Late st Contact Info) Description 07/08/2024 9:30 AM METER READERS SUPERVISOR Virtual Visit [facility] Rheumatology [facility] [address] [facility] [address] [place] [phone] Zhane Crain MD 500 [place] [address] [facility] 9[address] [place] [address] 07/31/2024 2:00 PM METER READERS SUPERVISOR Office Visit [facility] [address] [facility] [address] [place] [phone] Christina Roe PA-C [address] [place] [address] documented as of this encounter Visit Diagnoses Not on filedocumented in this encounter Care Teams Electric Motors Salesperson Relationship Specialty Start Date End Date Feliciano Uribe MD [facility] & [address] [address] PCP - General Family Medicine 06/01/23 Christina Roe PA-C [address] [place] [address] Physician Cytotechnologist Supervisor Rheumatology 11/06/23 Christina Roe PA-C [address] [place] [address] Assigned Rheumatology Provider 11/09/23 Richie Rowell [facility] [address] [place] [address] Pharmacist Pharmacist 04/08/24 Richie Rowell RP [address] [place] [address] Assigned MTM Pharmacist 04/18/24 Zhane Crain MD [address] [place] [address] Physician Rheumatology 05/14/24 Saeed Berry MD [address] [place] [address] [phone] Assigned Surgical Provider 05/19/24 documented as of this encounter
--- OUTSIDE RECORDS SUMMARY | 2024-06-24 08:59 | XMS_ITS | Encounter Summary ---
Author Organization [place] Address [address] [place] [address] Care Team Providers Care Traffic Control Officer Name Role Phone Feliciano Uribe MD Primary Care Provider Christina Roe PA-C Unavailable Christina Roe PA-C Unavailable Richie Rowell [facility] Unavailable Richie Rowell [facility] Unavailable Zhane Crain MD Unavailable Saeed Berry MD Unavailable [phone] Reason for Visit * Reason Comments Medication Therapy Management Encounter Details Date Type Department Care Team (Late st Contact Info) Description 05/20/2024 9:30 AM CDT Virtual Visit [facility] [address] [facility] [address] [place] [address] Zhane Crain MD [address] [place] [address] Richie Rowell RPH [address] [place], [place] [address] GCA (giant cell arteritis) (H) (Primary Dx); PMR (polymyalgia rheumatica) (H); Vaccine counseling Social History Tobacco Use Types Packs/Day Years [...] on file Legal 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 Second dose due 2-6 months after first. Pneumonia (Prevnar 20) Annual flu Get in May/June. COVID Booster Respiratory Syncytial Virus (RSV) Recommended over age of 60. Follow-up: Return in 7 weeks (on 07/08/2024) for Follow up, with me, using a video visit. It was great speaking with you today. I value your experience and would be very thankful for your time in providing feedback in our clinic survey. In the next few days, you may receive an email or text message from [facility] with a link to a survey related to your ???clinical pharmacist. To schedule another MTM appointment, please call the clinic directly or you may call the MTM scheduling line at [phone] or toll-free at . My Clinical Pharmacist's contact information: Please feel free to contact me with any questions or concerns you have. Richie Rowell, PharmD Medication Therapy Management Pharmacist [facility] Rheumatology Clinic documented in this encounter Progress Notes * Richie Rowell RPH - 05/20/2024 9:30 AM CDT Medication Therapy Management (MTM) Encounter ASSESSMENT: Medication Adherence/Access: No issues identified Giant cell arteritis (GCA)/polymyalgia rheumatica (PMR): Patient would benefit from continuing prednisone taper as directed and starting Actemra once she receives it. Discussed that she can discontinue pantoprazole or continue it until she finished prednisone if she wishes. Discussed to proceed to emergency department if she has increased headache, jaw pain, or changes in vision. She is due for lab monitoring 4 to 8 weeks after starting Actemra, including fasting lipid panel. Vaccines: Per ACIP guidelines, patient is eligible for Covid-19, Influenza, Pneumococcal, RSV, and Zoster PLAN: Continue current medication regimen Start Actemra 162 mg subcutaneously once weekly on Sunday as planned Consider the following vaccines: Shingles (Shingrix) Vaccine is 2-dose series. Second dose due 2-6 months after first. Pneumonia (Prevnar 20) Annual flu Get in May/June. COVID Booster Respiratory Syncytial Virus (RSV) Recommended over age of 60. Follow-up: Return in 7 weeks (on 07/08/2024) for Follow up, with me, using a video visit. SUBJECTIVE/OBJECTIVE: Gato Jimenez is a 79 year old female seen for a follow-up visit from 04/08/2024. She was referred to me from Zhane Crain MD. She has previously seen Christina Roe PA-C and plan is to continue follow up with Christina Roe. Reason for visit: GCA follow up. Allergies/ADRs: Reviewed in chart Past Medical History: Reviewed in chart Tobacco: She reports that she has never smoked. She has been exposed to tobacco smoke. She has never used smokeless tobacco. Alcohol: Less than 1 beverage / month Caffeine: 2-3 cups of coffee per day Medication Adherence/Access: no issues reported Giant cell arteritis (GCA)/polymyalgia rheumatica (PMR): Prednisone taper - current dose: 12.5 mg once daily Actemra 162 mg subcutaneously once weekly - has not started it yet, plans to start Sunday. Pantoprazole 40 mg once daily for GI protection Patient reports she is getting her first delivery of Actemra tomorrow. There was a delay in gettingher application for grants approved and in getting patient her preferred product of prefilled syringes. She would like to start with the prefilled syringes and will notify me if she would like to change to autoinjector device in the future. States she is feeling more stiffness today, primarily in her legs, hips, arms, and some tenderness in her neck. She attributes this to the decreasing prednisone dose. Finds her sleep is improving as prednisone is decreased and also due to her wearinga mask to reduce his snoring. States she has weight gain and puffy face from prednisone. Reports nochanges in vision or eye pain. She has headache that started today above her right eye and slight jaw pain. Reports no swelling since being discharged from hospital end of February 2024. Last lab monitoring completed: 04/17/2024 Vaccines: Immunization History Administered Date(s) Administered COVID-19 Monovalent 18+ (Moderna) 10/15/2020, 11/12/2020 DT (PEDS <7y) 01/30/1980 Flu, Unspecified 05/05/2011, 06/21/2020 [id number] Novel Flu 06/28/2009 Influenza (High Dose) Trivalent,PF (Fluzone) 05/27/2014, 06/05/2016, 05/02/2017, 06/28/2018 Influenza (IIV3) PF 05/05/2011 Influenza Vaccine 65+ (Fluzone HD) 06/21/2020, 07/19/2021, 06/19/2023 Influenza, seasonal, injectable, PF 05/13/2009, 05/02/2012 Pneumo Conj 13-V (2010&after) 01/12/2015 Pneumococcal 23 valent 08/27/2007, 11/28/2013 TD,PF 7+ (Tenivac) 03/10/2005 TDAP (Adacel,Boostrix) 05/02/2012, 11/21/2021 Today's Vitals: There were no vitals taken for this visit. I spent 17 minutes with this patient today. All changes were made via collaborative practice agreement with Zhane Crain. A copy of the visit note was provided to the patient's provider(s). A summary of these recommendations was sent via [employer]. Richie Rowell, MallyD Medication Therapy Management Pharmacist [facility] Rheumatology Clinic Telemedicine Visit Details The patient's medications can be safely assessed via a telemedicine encounter. Type of service: Video Conference via [employer] Originating Location (pt. Location): Home Distant Location (provider location): Off-site Joined the call at 05/20/2024, 9:30:31 am. Left the call at 05/20/2024, 9:47:41 am. You were on the call for 17 minutes 9 seconds . Medication Therapy Recommendations Vaccine counseling Rationale: Preventive therapy - Needs additional medication therapy - Indication Recommendation: Provide Education Status: Patient Agreed - Adherence/Education documented in this encounter Plan of Treatment Upcoming Encounters Date Type Department Care Team (Late st Contact Info) Description 07/08/2024 9:30 AM RUBBER PRESS OPERATOR Virtual Visit [facility] Rheumatology [facility] [address] [facility] [address] [place] [phone] Zhane Crain MD [address] [place] [address] Richie Rowell RPH 9[address] [place] [address] 07/31/2024 2:00 PM RUBBER PRESS OPERATOR Office Visit [facility] [address] [facility] [address] [place] [phone] Christina Roe PA-C [address] [place] [address] documented as of this encounter Visit Diagnoses Diagnosis GCA (giant cell arteritis) (H)- Primary Giant cell arteritis PMR (polymyalgia rheumatica) (H) Polymyalgia rheumatica Vaccine counseling documented in this encounter Care Teams Traffic Control Officer Relationship Specialty Start Date End Date Feliciano Uribe MD [facility] - [address] [address] PCP - General Family Medicine 06/01/23 Christina Roe PA-C [address] [place] [address] Physician Ethnoarchaeologist Rheumatology 11/06/23 Christina Roe PA-C [address] [place] [address] Assigned Rheumatology Provider 11/09/23 Richie Rowell RPH [address] [place] [phone] Pharmacist Pharmacist 04/08/24 Richie Rowell RPH [address] [place] [address] Assigned MTM Pharmacist 04/18/24 Zhane Crain MD [address] [place] [address] Physician Rheumatology 05/14/24 Saeed Berry MD [address] [place] [address] Assigned Surgical Provider 05/19/24 documented as of this encounter
--- OUTSIDE RECORDS SUMMARY | 2024-06-24 09:00 | XMS_ITS | Encounter Summary ---
Author Organization [place] Address [address] [place] [address] Care Team Providers Care Elementary Science Teacher Name Role Phone Feliciano Uribe MD Primary Care Provider Christina Roe PA-C Unavailable Christina Roe PA-C Unavailable [phone] Richie Rowell [facility] Unavailable Richie Rowell [facility] Unavailable Zhane Crain MD Unavailable Saeed Berry MD Unavailable [phone] Encounter Details Date Type Department Care Team (Late st Contact Info) Description 04/14/2024 MyC Medical Advice [facility] [address] [place] [phone] Adalberto Boles Social History Tobacco Use [...] on file Legal Sex Female 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 Gender Identity Not on file Sexual Orientation Not on file documented as of this encounter Plan of Treatment Upcoming Encounters Date Type Department Care Team (Late st Contact Info) Description 07/08/2024 9:30 AM RESTROOMS OR LOUNGES MAID Virtual Visit [facility] Rheumatology [facility] [address] [facility] [address] [place] [phone] Zhane Crain MD [address] [place] [address] Richie Rowell RPH [address] [place] [address] 07/31/2024 2:00 PM RESTROOMS OR LOUNGES MAID Office Visit [facility] [address] [facility] 200 [place] [phone] Christina Roe PA-C [address] [place] [address] documented as of this encounter Visit Diagnoses Not on filedocumented in this encounter Care Teams Elementary Science Teacher Relationship Specialty Start Date End Date Feliciano Uribe MD [address] [address] PCP - General Family Medicine 06/01/23 Christina Roe PA-C [address] [place] [address] Physician Wool Dyer Rheumatology 11/06/23 Christina Roe PA-C [address] [place] [address] Assigned Rheumatology Provider 11/09/23 Richie Rowell RPH [address] [place] [phone] Pharmacist Pharmacist 04/08/24 Richie Rowell Justine [address] [place] [address] Assigned MTM Pharmacist 04/18/24 Zhane Crain MD [address] [place] [address] Physician Rheumatology 05/14/24 Saeed Berry MD [address] [place] [address] Assigned Surgical Provider 05/19/24 documented as of this encounter
--- OUTSIDE RECORDS SUMMARY | 2024-06-24 09:00 | XMS_ITS | Encounter Summary ---
Author Organization [place] Address [address] [place] [address] Care Team Providers Care Flotation Tender Name Role Phone Feliciano Uribe MD Primary Care Provider Crhistina Roe PA-C Unavailable Christina Roe PA-C Unavailable Richie Rowell [facility] Unavailable Reason for Referral * Diagnostic Imaging Ultrasound (Routine) - Pending Review Specialty Diagnoses / Procedures Referred By Amena prasad Referred To Contact Radiology. Diagnoses GCA (giant cell arteritis) (H) Pain in right lower leg Procedures US Lower Extremity Venous Duplex Right Zhane Crain MD [address] [place] [address] Phone: tel: fax: Referral ID Status Reason Start Date Expiration Date V isits Requested Visits Authorized [id number] Pending Review 04/17/2024 04/17/2025 3 3 Reason for Visit * Reason Comments Follow Up * Consultation (Routine: Next available opening) - Pending Review Specialty Diagnoses / Procedures Referred By Amena prasad Referred To Contact Rheumatology Diagnoses GCA (giant cell arteritis) (H) Zhane Crain MD [address] [place] [address] Phone: tel: fax: Referral ID Status Reason Start Date Expiration Date V isits Requested Visits Authorized [id number] Pending Review 03/24/2024 03/24/2025 1 1 Encounter Details Date Type Department Care Team (Late st Contact Info) Description 04/17/2024 12:30 PM CDT Office Visit [address] [place] [address] Zhane Crain MD [address] [place] [address] GCA (giant cell arteritis) (H); Pain in [...] on file Legal Sex Female 3: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 Has slighthead over her right jehovah's witness in the morning which lasts about an [...] days, Disp: , Rfl: D3-50 1.25 MG (08456 UT) capsule, Take 1,250 mcg by mouth [...] st Contact Info) Description 07/08/2024 9:30 AM ANGIOGRAPHY NURSE Virtual Visit [facility] Rheumatology [facility] [address] [facility] 101 [place] [phone] Zhane Crain MD [address] [place] [address] [facility] 9[address] [place] [address] 07/31/2024 2:00 PM ANGIOGRAPHY NURSE Office Visit [facility] [address] [facility] 200 [place] [phone] Christina Roe PA-C [address] [place] [address] Scheduled Orders Name Type Priority Associated Diagnoses [...] US LOWER EXTREMITY VENOUS DUPLEX RIGHT LOCATION: [facility] DATE: 04/22/2024 INDICATION: ??GCA (giant cell [...] US LOWER EXTREMITY VENOUS DUPLEX RIGHT LOCATION: [facility] DATE: 04/22/2024 INDICATION: GCA (giant cell [...] the right lower extremity. Zhane Crain MD [facility] US ORDERA BLES Final Result * Lipid panel reflex to direct LDL Fasting (04/17/2024 1:11 PM CDT) [facility] Cholesterol 182 <200 mg/dL 04/17/2024 7:43 PM [...] ??Greater than or equal to 220 mg/dL us Zhane Crain MD LAB - BLOOD O RDERABLES Final Result [facility] [address] [facility], Room [address] [place] [phone] * (ABNORMAL) CBC with platelets (04/17/2024 1:11 PM CDT) [facility] WBC Count 6.2 4.0 - 11.0 10e3/uL [...] CDT us Zhane Crain MD LAB - BLOOD O RDERABLES Final Result [facility] [address] * Creatinine (04/17/2024 1:11 PM CDT) [...] BLOOD O RDERABLES Final Result [facility] [address] [facility], [address] * AST (04/17/2024 1:11 PM CDT) AST 42 0 - 45 U/L 04/17/2024 7:4 3 PM CDT [facility] Blood STRUCTURE OF RIGHT UPPER LIMB / Unknown Venipuncture / Unknown 04/17/2024 1:11 PM CDT 04/17/2024 1:24 PM CDT Zhane Crain MD LAB - BLOOD O RDERABLES Final Result [facility] [address] [facility], [address] * (ABNORMAL) ALT (04/17/2024 1:11 PM CDT) ALT 101(H) 0 - 50 U/L 04/17/2024 7:43 PM CDT [facility] Blood STRUCTURE OF RIGHT UPPER LIMB / Unknown Venipuncture / Unknown 04/17/2024 1:11 PM CDT 04/17/2024 1:24 PM CDT Zhane Crain MD LAB - BLOOD O RDERABLES Final Result [facility] [address] [facility], [address] [phone] * CRP inflammation (04/17/2024 1:11 PM CDT) CRP Inflammation <3.00 <5.00 mg/L 04/17/20 7:43 PM CDT [facility] Blood STRUCTURE OF RIGHT UPPER LIMB / Unknown Venipuncture / Unknown 04/17/2024 1:11 PM CDT 04/17/2024 1:24 PM CDT Zhane Crain MD LAB - BLOOD O RDERABLES Final Result [facility] [address] [facility], [address] [phone] * Erythrocyte sedimentation rate auto (04/17/2024 1:11 PM CDT) Erythrocyte Sedimentation Rate 5 0 - 30 mm/hr 04/17/2024 1:43 PM CDT [facility] Blood STRUCTURE OF RIGHT UPPER LIMB / Unknown Venipuncture / Unknown 04/17/2024 1:11 PM CDT 04/17/2024 1:24 PM CDT Zhane Crain MD LAB - BLOOD O RDERABLES Final Result [facility] [address] documented in this encounter Visit Diagnoses Diagnosis GCA (giant cell arteritis) (H) Giant cell arteritis Pain in right lower leg GCA (giant cell arteritis) (H) Giant cell arteritis Pain in right lower leg documented in this encounter Care Teams Flotation Tender Relationship Specialty Start Date End Date Feliciano Uribe MD [facility] [address] [place] [address] PCP - General Family Medicine 06/01/23 Christina Roe PA-C [address] [place] [address] Physician Manager Product Design Rheumatology 11/06/23 Christina Roe PA-C [address] [place] [address] Assigned Rheumatology Provider 11/09/23 Richie Rowell RPH [address] [place] [address] Pharmacist Pharmacist 04/08/24 documented as of this encounter
--- OUTSIDE RECORDS SUMMARY | 2024-06-24 09:00 | XMS_ITS | Encounter Summary ---
Author Organization [place] Address [address] [place] [address] Care Team Providers Care Liquor Runner Name Role Phone Feliciano Uribe MD Primary Care Provider Christina Roe PA-C Unavailable Christina Roe PA-C Unavailable Richie Rowell [facility] Unavailable Richie Rowell [facility] Unavailable Zhane Crain MD Unavailable Saeed Berry MD Unavailable [phone] Encounter Details Date Type Department Care Team (Late st Contact Info) Description 04/21/2024 MyC Medical Advice [facility] [address] [facility] [address] [place] [address] Richie Rowell, [facility] 909 [place], [place] [address] Social History Tobacco Use Types Packs/Day Years [...] on file Legal Sex Female 3:[address] SUPERVISOR OF ENGINES Gender Identity Not on file Sexual Orientation Not on file documented as of this encounter Plan of Treatment Upcoming Encounters Date Type Department Care Team (Late st Contact Info) Description 07/08/2024 9:[address] SUPERVISOR OF ENGINES Virtual Visit [facility] Rheumatology [facility] [address] [facility] [address] [place] [address] Zhane Crain MD 500 [place] [address] Richie Rowell, [facility] 909 [place] [address] 07/31/2024 2:[address] SUPERVISOR OF ENGINES Office Visit [facility] [address] [facility] [address] [place] [phone] Christina Roe PA-C 5200 [place] [address] documented as of this encounter Visit Diagnoses Not on filedocumented in this encounter Care Teams Liquor Runner Relationship Specialty Start Date End Date Feliciano Uribe MD [facility] & [address] [address] PCP - General Family Medicine 06/01/23 Christina Roe PA-C 5[address] [place] [address] Physician Oyster Worker Rheumatology 11/06/23 Christina Roe PA-C [address] [place] [address] Assigned Rheumatology Provider 11/09/23 Richie Rowell [facility] 909 [place] [address] Pharmacist Pharmacist 04/08/24 Richie Rowell [facility] 909 [place] [address] Assigned MTM Pharmacist 04/18/24 Zhane Crain MD [address] [place] [address] [phone] Physician Rheumatology 05/14/24 Saeed Berry MD [address] [place] [address] Assigned Surgical Provider 05/19/24 documented as of this encounter
--- OUTSIDE RECORDS SUMMARY | 2024-06-24 09:00 | XMS_ITS | Encounter Summary ---
Author Organization [facility] Address [address] [place] [address] Care Team Providers Care Uptwister Tender Name Role Phone Feliciano Uribe MD Primary Care Provider Christina Roe PA-C Unavailable Christina Roe PA-C Unavailable [phone] Richie Rowell [facility] Unavailable Richie Rowell [facility] Unavailable Reason for Visit * Rehab Therapy Integrated Services (Routine: Next available opening) - Authorized Specialty Diagnoses / Procedures Referred By Amena prasad Referred To Contact Diagnoses Temporal arteritis (H) PMR (polymyalgia rheumatica) (H) [address] [address] Phone: tel: Referral ID Status Reason Start Date Expiration Date V isits Requested Visits Authorized [id number] Authorized 03/27/2024 08/26/2024 365 365 Encounter Details Date Type Department Care Team (Latest Contact Info) Description 04/22/2024 1:15 PM CDT Therapy Visit [address] [place] [address] Christina Roe PA-C [address] [place] [address] Mary Mckinley OT [address] [place] [address] Temporal arteritis (H) (Primary Dx); Generalized muscle [...] on file Legal Sex Female 3:41 AM ESCROW PROCESSOR Gender Identity Not on file Sexual Orientation Not on file documented as of this encounter Plan of Treatment Upcoming Encounters Date Type Department Care Team (Late st Contact Info) Description 07/08/2024 9:30 AM ESCROW PROCESSOR Virtual Visit [facility] Rheumatology [facility] [address] [facility] [address] [place] [address] Zhane Crain MD 500 [place] [address] [facility] 9[address] [place] [address] 07/31/2024 2:00 PM ESCROW PROCESSOR Office Visit [facility] [address] [facility] [address] [place] [phone] Christina Roe PA-C [address] [place] [address] documented as of this encounter Visit Diagnoses Diagnosis Temporal arteritis (H)- Primary Giant cell arteritis Generalized muscle weakness Muscle weakness (generalized) documented in this encounter Care Teams Uptwister Tender Relationship Specialty Start Date End Date Feliciano Uribe MD [facility] & [address] [phone] PCP - General Family Medicine 06/01/23 Christina Roe PA-C [address] [place] [address] Physician Kitchen Stewardess Rheumatology 11/06/23 Christina Roe PA-C [address] [place] [address] Assigned Rheumatology Provider 11/09/23 Richie Rowell RPH 9 [place] [address] Pharmacist Pharmacist 04/08/24 Richie Rowell RPH [address] [place] [address] Assigned MTM Pharmacist 04/18/24 documented as of this encounter
--- OUTSIDE RECORDS SUMMARY | 2024-06-24 09:00 | XMS_ITS | Encounter Summary ---
Author Organization [facility] Address [address] [place] [address] Care Team Providers Care Perinatology Physician Name Role Phone Feliciano Uribe MD Primary Care Provider [phone] Christina Roe PA-C Unavailable Christina Roe PA-C Unavailable Richie Rowell [facility] Unavailable Richie Rowell [facility] Unavailable Zhane Crain MD Unavailable Saeed Berry MD Unavailable [phone] Encounter Details Date Type Department Care Team (Late st Contact Info) Description 05/02/2024 MyC Medical Advice [facility] [address] [place] [address] Adalberto Boles Social History Tobacco Use [...] on file Legal Sex Female 3:41 AM REGULATORY COMPLIANCE OFFICER Gender Identity Not on file Sexual Orientation Not on file documented as of this encounter Plan of Treatment Upcoming Encounters Date Type Department Care Team (Late st Contact Info) Description 07/08/2024 9:30 AM REGULATORY COMPLIANCE OFFICER Virtual [facility] Rheumatology [facility] [address] [facility] [address] [place] [address] Zhane Crain MD [address] [place] [address] Richie Rowell RPH [address] [place] [address] 07/31/2024 2:00 PM REGULATORY COMPLIANCE OFFICER Office Visit [facility] 29[address] [facility] 200 [place] [address] Christina Roe PA-C 5[address] [place] [address] documented as of this encounter Visit Diagnoses Not on filedocumented in this encounter Care Teams Perinatology Physician Relationship Specialty Start Date End Date Feliciano Uribe MD [address] [address] PCP - General Family Medicine 06/01/23 Christina Roe PA-C [address] [place] [address] Physician Automatic Furnace Operator Rheumatology 11/06/23 Christina Roe PA-C [address] [place] [address] Assigned Rheumatology Provider 11/09/23 Richie Rowell RPH [address] [place] [phone] Pharmacist Pharmacist 04/08/24 Richie Rowell Justine 909 [place] [address] Assigned MTM Pharmacist 04/18/24 Zhane Crain MD [address] [place] [address] Physician Rheumatology 05/14/24 Saeed Berry MD [address] [place] [address] Assigned Surgical Provider 05/19/24 documented as of this encounter
--- OUTSIDE RECORDS SUMMARY | 2024-06-24 09:00 | XMS_ITS | Encounter Summary ---
Author Organization [facility] Address [address] [place] [address] Care Team Providers Care Lining Finisher Name Role Phone Feliciano Uribe MD Primary Care Provider [phone] Christina Roe PA-C Unavailable Christina Roe PA-C Unavailable Richie Rowell [facility] Unavailable Richie Rowell [facility] Unavailable Zhane Crain MD Unavailable Saeed Berry MD Unavailable [phone] Encounter Details Date Type Department Care Team (Late st Contact Info) Description 04/23/2024 MyC Medical Advice [address] [place] [address] Zhane Crain MD [address] [place] [address] Social History Tobacco Use Types Packs/Day [...] on file Legal Sex Female 3:41 AM CAPACITY PLANNING ANALYST Gender Identity Not on file Sexual Orientation [...] st Contact Info) Description 07/08/2024 9:30 AM CAPACITY PLANNING ANALYST Virtual Visit [facility] Rheumatology [facility] 1600 [facility] 101 [place] [phone] Zhane Crain MD [address] [place] [address] [facility] 909 [place] [address] 07/31/2024 2:00 PM CAPACITY PLANNING ANALYST Office Visit [facility] [address] [facility] [address] [place] [address] Christina Roe PA-C 5[address] [place] [address] documented as of this encounter Visit Diagnoses Not on filedocumented in this encounter Care Teams Lining Finisher Relationship Specialty Start Date End Date Feliciano Uribe MD [facility] [address] [place] [address] PCP - General Family Medicine 06/01/23 Christina Reo PA-C [address] [place] [address] Physician Film Cleaner Rheumatology 11/06/23 Christina Roe PA-C [address] [place] [address] Assigned Rheumatology Provider 11/09/23 Richie Rowell RPH [address] [place] [address] [phone] Pharmacist Pharmacist 04/08/24 Richie Rowell RPH [address] [place] [address] [phone] Assigned MTM Pharmacist 04/18/24 Zhane Crain MD [address] [place] [address] Physician Rheumatology 05/14/24 Saeed Berry MD [address] [place] [address] [phone] Assigned Surgical Provider 05/19/24 documented as of this encounter
--- OUTSIDE RECORDS SUMMARY | 2024-06-24 09:00 | XMS_ITS | Encounter Summary ---
Author Organization [place] Address [address] [place] [address] Care Team Providers Care Seaming Machine Operator Name Role Phone Feliciano Uribe [...] on file Legal Sex Female 3:41 AM DIMENSION SPECIFICATION INSPECTOR Gender Identity Not on file Sexual Orientation Not on file documented as of this encounter Plan of Treatment Upcoming Encounters Date Type Department Care Team (Late st Contact Info) Description 07/08/2024 9:30 AM DIMENSION SPECIFICATION INSPECTOR Virtual Visit [facility] Rheumatology [facility] [address] [facility] [address] [place] [address] Zhane Crain MD [address] [place] [address] Richie Rowell RPH 909 [place] [address] 07/31/2024 2:00 PM DIMENSION SPECIFICATION INSPECTOR Office Visit [facility] 2945 [facility] 200 [place] [address] Christina Roe PA-C [address] [place] [address] documented as of this encounter Visit Diagnoses Not on filedocumented in this encounter Care Teams Seaming Machine Operator Relationship Specialty Start Date End Date Feliciano Uribe MD [address] [address] PCP - General Family Medicine 06/01/23 Christina Roe PA-C [address] [place] [address] Physician Comic Book Writer Rheumatology 11/06/23 Christina Roe PA-C [address] [place] [address] Assigned Rheumatology Provider 11/09/23 Richie Rowell RPH 909 [place] [address] Pharmacist Pharmacist 04/08/24 documented as of this encounter
--- OUTSIDE RECORDS SUMMARY | 2024-06-24 09:00 | XMS_ITS | Encounter Summary ---
Author Organization [facility] Address [address] [place] [address] Care Team Providers Care Patient Relations Coordinator Name Role Phone Feliciano Uribe MD Primary Care Provider Christina Roe PA-C Unavailable Christina Roe PA-C Unavailable Richie Rowell [facility] Unavailable Encounter Details Date Type Department Care [...] on file Legal Sex Female 3:41 AM MANUFACTURING STOREPERSON Gender Identity Not on file Sexual Orientation Not on file documented as of this encounter Plan of Treatment Upcoming Encounters Date Type Department Care Team (Late st Contact Info) Description 07/08/2024 9:30 AM MANUFACTURING STOREPERSON Virtual Visit [facility] Rheumatology [facility] [address] [facility] [address] [place] [address] Zhane Crain MD [address] [place] [address] Richie Rowell RPH 909 [place] [address] 07/31/2024 2:00 PM MANUFACTURING STOREPERSON Office Visit [facility] 2945 [facility] 200 [place] [phone] Christina Roe PA-C 5200 [place] [address] documented as of this encounter Visit Diagnoses Not on filedocumented in this encounter Care Teams Patient Relations Coordinator Relationship Specialty Start Date End Date Feliciano Uribe MD [address] [address] PCP - General Family Medicine 06/01/23 Christina Roe PA-C 5[address] [place] [address] Physician Air Traffic Supervisor Rheumatology 11/06/23 Christina Roe PA-C [address] [place] [address] Assigned Rheumatology Provider 11/09/23 Richie Rowell RPH 909 [place] [address] Pharmacist Pharmacist 04/08/24 documented as of this encounter
--- OUTSIDE RECORDS SUMMARY | 2024-06-24 09:00 | XMS_ITS | Encounter Summary ---
Author Organization [place] Address [address] [place] [address] Care Team Providers Care Parking Worker Name Role Phone Feliciano Uribe MD Primary Care Provider Christina Roe PA-C Unavailable [phone] Christina Roe PA-C Unavailable Richie Rowell [facility] Unavailable Richie Rowlel [facility] Unavailable Zhane Crain MD Unavailable Saeed Berry MD Unavailable [phone] Encounter Details Date Type Department Care Team (Late st Contact Info) Description 04/09/2024 MyC Medical Advice [facility] [address] [facility] [address] [place] [address] Richie Rowell, [facility] 909 [place], [place] 9[address] Social History Tobacco Use Types Packs/Day Years [...] on file Legal Sex Female 3:41 AM PHOTOGRAPHIC RESTORER Gender Identity Not on file Sexual Orientation Not on file documented as of this encounter Plan of Treatment Upcoming Encounters Date Type Department Care Team (Late st Contact Info) Description 07/08/2024 9:30 AM PHOTOGRAPHIC RESTORER Virtual Visit [facility]ology [facility] [address] [facility] [address] [place] [address] Zhane Crain MD 500 [place] [address] Richie Rowell, [facility] 909 [place] [address] 07/31/2024 2:00 PM PHOTOGRAPHIC RESTORER Office Visit [facility] [address] [facility] [address] [place] [phone] Christina Roe PA-C [address] [place] [address] documented as of this encounter Visit Diagnoses Not on filedocumented in this encounter Care Teams Parking Worker Relationship Specialty Start Date End Date Feliciano Uribe MD [facility] & [address] [address] PCP - General Family Medicine 06/01/23 Christina Roe PA-C [address] [place] [address] Physician Lacrosse Player Rheumatology 11/06/23 Christina Roe PA-C [address] [place] [address] Assigned Rheumatology Provider 11/09/23 Richie Rowell [facility] 909 [place] [address] Pharmacist Pharmacist 04/08/24 Richie Rowell [facility] 909 [place] [address] Assigned MTM Pharmacist 04/18/24 Zhane Crain MD [address] [place] [address]115 Physician Rheumatology 05/14/24 Saeed Berry MD [address] [place] [address] Assigned Surgical Provider 05/19/24 documented as of this encounter
--- OUTSIDE RECORDS SUMMARY | 2024-06-24 09:00 | XMS_ITS | Encounter Summary ---
Author Organization [facility] Address [address] [place] [address]. [place] [address] Care Team Providers Care Manager Android Name Role Phone Feliciano Uribe MD Primary Care Provider Christina Roe PA-C Unavailable Christina Roe PA-C Unavailable Richie Rowell [facility] Unavailable Richie Rowell [facility] Unavailable Encounter Details Date Type Department Care Team (Late st Contact Info) Description 05/06/2024 [facility] - [address] 4th [place] [address] Saeed Berry MD 6 [facility] [address]A [place] [address] Visual field defect (Primary Dx) Social [...] on file Legal Sex Female 3:41 AM HANDLE 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 Gender Identity Not on file Sexual Orientation Not on file documented as of this encounter Plan of Treatment Upcoming Encounters Date Type Department Care Team (Late st Contact Info) Description 07/08/2024 9:30 AM HANDLE 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 Virtual Visit [facility] Rheumatology [facility] [address] [facility] [address] [place] [address] Zhane Crain MD 500 [place], [place] [address] Richie Rowell, [facility] 909 [place] [address] 07/31/2024 2:00 PM HANDLE 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 Office Visit [facility] [address] [facility] [address] [place] [phone] Christina Roe PA-C 5[address] [place], [place] 315[address] documented as of this encounter Results * [...] Primary documented in this encounter Care Teams Manager Android Relationship Specialty Start Date End Date Feliciano Uribe MD [address] [address] PCP - General Family Medicine 06/01/23 Christina Roe PA-C [address] [place] [address] Physician Wire Stitcher Machine Rheumatology 11/06/23 Christina Roe PA-C [address] [place] [address] Assigned Rheumatology Provider 11/09/23 Richie Rowell RPH 909 [place] [address] Pharmacist Pharmacist 04/08/24 Richie Rowell RPH 909 [place] [address] Assigned MTM Pharmacist 04/18/24 documented as of this encounter
--- OUTSIDE RECORDS SUMMARY | 2024-06-24 09:00 | XMS_ITS | Encounter Summary ---
Author Organization [place] Address [address] [place] [address]. [place] [address] Care Team Providers Care Coffee Brewer Name Role Phone Feliciano Uribe MD Primary Care Provider Christina Roe PA-C Unavailable [phone] Christina Roe PA-C Unavailable [phone] Richie Rowell [facility] Unavailable Encounter Details Date Type Department Care Team (Late st Contact Info) Description 04/09/2024 PRE VISIT [facility] Eye [facility] - [address] Clin [address] [place] [address] Saeed Berry MD 6 [facility] [address]A [place] [address] Social History Tobacco Use Types [...] on file Legal Sex Female 3:41 AM EXECUTIVE DIRECTOR GLOBAL BRAND MARKETING Gender Identity Not on file Sexual Orientation [...] st Contact Info) Description 07/08/2024 9:30 AM EXECUTIVE DIRECTOR GLOBAL BRAND MARKETING Virtual Visit [facility] Rheumatology [facility] [address] [facility] [address] [place] [address] Zhane Crain MD 500 [place], [place] [address] Richie Rowell, [facility] 909 [place] [address] 07/31/2024 2:00 PM EXECUTIVE DIRECTOR GLOBAL BRAND MARKETING Office Visit [facility] 29[address] [facility] [address] [place] [phone] Christina Roe PA-C 5[address] [place] [address] documented as of this encounter Visit Diagnoses Not on filedocumented in this encounter Care Teams Coffee Brewer Relationship Specialty Start Date End Date Feliciano Uribe MD [address] [address] PCP - General Family Medicine 06/01/23 Christina Roe PA-C 5[address] [place] [address] Physician Station Gateman Rheumatology 11/06/23 Christina Roe PA-C [address] [place] [address] Assigned Rheumatology Provider 11/09/23 Richie Rowell [facility] [address] [place] [address] Pharmacist Pharmacist 04/08/24 documented as of this encounter
--- OUTSIDE RECORDS SUMMARY | 2024-06-24 09:00 | XMS_ITS | Encounter Summary ---
Author Organization [facility] Address [address] [place] [address] Care Team Providers Care Skoog Operator Name Role Phone Feliciano Uribe MD Primary Care Provider [phone] Christina Roe PA-C Unavailable [phone] Christina Roe PA-C Unavailable Richie Rowell [facility] Unavailable Encounter Details Date Type [...] on file Legal Sex Female 3:41 AM SCIENTIFIC GLASS BLOWER Gender Identity Not on file Sexual Orientation Not on file documented as of this encounter Plan of Treatment Upcoming Encounters Date Type Department Care Team (Late st Contact Info) Description 07/08/2024 9:30 AM SCIENTIFIC GLASS BLOWER Virtual Visit [facility] Rheumatology [facility] [address] [facility] [address] [place] [address] Zhane Crain MD [address] [place] [address] 4[address] Richie Rowell RPH 909 [place] [address] 07/31/2024 2:00 PM SCIENTIFIC GLASS BLOWER Office Visit [facility] 2945 [facility] 200 [place] [phone] Christina Roe PA-C 5[address] [place] [address] documented as of this encounter Visit Diagnoses Not on filedocumented in this encounter Care Teams Skoog Operator Relationship Specialty Start Date End Date Feliciano Uribe MD [address] [address] PCP - General Family Medicine 06/01/23 Christina Roe PA-C [address] [place] [address] Physician Store Stock Associate Rheumatology 11/06/23 Christina Roe PA-C [address] [place] [address] Assigned Rheumatology Provider 11/09/23 Richie Rowell RPH 909 [place] [address] Pharmacist Pharmacist 04/08/24 documented as of this encounter
--- OUTSIDE RECORDS SUMMARY | 2024-06-24 09:00 | XMS_ITS | Encounter Summary ---
Author Organization [facility] Address [address] [place] [address]. [place] [address] Care Team Providers Care Mechanical Operator Name Role Phone Feliciano Uribe MD Primary Care Provider Christina Roe PA-C Unavailable Christina Roe PA-C Unavailable [phone] [facility] Unavailable Richie Rowell [facility] Unavailable Encounter Details Date Type Department Care Team (Late st Contact Info) Description 05/02/2024 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 Gender Identity Not on file Sexual Orientation Not on file documented as of this encounter Plan of Treatment Upcoming Encounters Date Type Department Care Team (Late st Contact Info) Description 07/08/2024 9:30 AM HIGH SCHOOL DRAFTING TEACHER Virtual Visit [facility] [address] [facility] [address] [place] [address] Zhane Crain MD [address] [place] [address] Richie Rowell RPH [address] [place] [address] 07/31/2024 2:00 PM HIGH SCHOOL DRAFTING TEACHER Office Visit [facility] 2945 [facility] 200 [place] [phone] Christina Roe PA-C 5200 [place] [address] documented as of this encounter Visit Diagnoses Not on filedocumented in this encounter Care Teams Mechanical Operator Relationship Specialty Start Date End Date Feliciano Uribe MD [address] [address] PCP - General Family Medicine 06/01/23 Christina Roe PA-C 5[address] [place] [address] Physician Rpg Developer Rheumatology 11/06/23 Christina Roe PA-C [address] [place] [address] Assigned Rheumatology Provider 11/09/23 Richie Rowell RPH [address] [place] [address] Pharmacist Pharmacist 04/08/24 Richie Rowell RPH [address] [place] [address] Assigned [place] Pharmacist 04/18/24 documented as of this encounter
--- OUTSIDE RECORDS SUMMARY | 2024-06-24 09:00 | XMS_ITS | Encounter Summary ---
Author Organization [facility] Address [address] [place] [address] Care Team Providers Care Web Press Operator Name Role Phone Feliciano Uribe MD Primary Care Provider Christina Roe PA-C Unavailable [phone] Christina Roe PA-C Unavailable Richie Rowell [facility] Unavailable Reason for Visit * Rehab Therapy Integrated Services (Routine: Next available opening) - Authorized Specialty Diagnoses / Procedures Referred By Amena prasad Referred To Contact Diagnoses Temporal arteritis (H) PMR (polymyalgia rheumatica) (H) [address] [address] Phone: tel: Referral ID Status Reason Start Date Expiration Date V isits Requested Visits Authorized [id number] Authorized 03/27/2024 08/26/2024 365 365 Encounter Details Date Type Department Care Team (Latest Contact Info) Description 04/09/2024 11:45 AM CDT Therapy Visit [address] [place] [phone] Christina Roe PA-C [address] [place] [address] Mary Mckinley, OT [address] [place] [address] Cognitive changes (Primary Dx); Temporal arteritis (H); PMR (polymyalgia rheumatica) (H); Generalized muscle weakness Social History Tobacco Use [...] on file Legal Sex Female 3:41 AM PROPERTY MANAGEMENT ACCOUNTANT Gender Identity Not on file Sexual Orientation Not on file documented as of this encounter Progress Notes * Mary Mckinley, OT - 04/09/2024 11:45 AM CDT OCCUPATIONAL THERAPY EVALUATION Type of Visit: Evaluation Subjective Gato Hayward Barbara was admitted on 03/22/2024 with a history [...] significant other or spouse Type of home: [facility]; 1 level Stairs to enter the home: Ramp: No Stairs inside the home: No Help at home: Self Cares (home health aide/personal service workers, family, etc) Equipment owned: Walker and grab bars, is going to be getting a shower chair 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 Hobbies/Interests: Swim at the [employer], fusion swim classes, enjoys cooking Patient goals [...] I am not good at details. MoCA: with impairments with executive functioning, visuospatial skills, clock drawing, attention, language, 2/5 delayed recall. Ambrose Cognitive Assessment (MoCA) which was designed as [...] Flexion 5 5 Elbow Extension 4 4 Clinical Law Professor Strength (lbs) 37# WNLs for age 35# [...] Equipment: LOWER BODY DRESSING: Independent, getting a cut tobacco bulker to avoid bending forward to reach feet Equipment: TOILETING: Independent, when her IN flares up, she needs assistance because she [...] that should have been in the cupboard. Home/Broker Associate: does the finances. Patient has a cleaning [...] Reintegration, Self-Care/Home Management, Therapeutic Activity, Therapeutic Exercise [facility] Goals OT Goal 1 Goal Identifier: 1-Fatigue [...] agrees with Plan of Care. Evaluation Time: YESI Farris Low Complexity Minutes (94840): 40 Signing Clinician: MARIXA Hale/Sudhakar [facility] OUTPATIENT OCCUPATIONAL THERAPY PLAN OF TREATMENT FOR OUTPATIENT REHABILITATION Patient's Last Name, First Name, Gato Yeh Date of : 1945 Provider's Name [facility] Onset Date: 03/22/24 Start of Care [...] Roe Initial Assessment See Epic Evaluation- 04/09/24 Cosigned by Christina Roe PA-C at 04/09/2024 4:41 PM CDT Associated attestation - Christina Roe PA-C - 04/09/2024 4:41 PM CDT Physician Attestation I agree with the information in this note. Christina Roe PA-C documented in this encounter Plan of Treatment Upcoming Encounters Date Type Department Care Team (Late st Contact Info) Description 07/08/2024 9:30 AM PROPERTY MANAGEMENT ACCOUNTANT Virtual Visit [facility] Rheumatology [facility] [address] [facility] [address] [place] [phone] Zhane Crain MD [address] [place] [address] Richie Rowell, [facility] [address] [place] [address] 07/31/2024 2:00 PM PROPERTY MANAGEMENT ACCOUNTANT Office Visit [facility] [address] [facility] [address] [place] [phone] Christina Roe PA-C [address] [place], [place] [phone] documented as of this encounter Visit Diagnoses Diagnosis Cognitive changes- Primary Other signs and symptoms involving cognition Temporal arteritis (H) Giant cell arteritis PMR (polymyalgia rheumatica) (H) Polymyalgia rheumatica Generalized muscle weakness Muscle weakness (generalized) documented in this encounter Care Teams Web Press Operator Relationship Specialty Start Date End Date Feliciano Uribe MD [address] [address] PCP - General Family Medicine 06/01/23 Christina Roe PA-C [address] [place] [address] Light Lamp Cleaner Rheumatology 11/06/23 Christina Roe PA-C [address] [place] [address] Assigned Rheumatology Provider 11/09/23 Richie Rowell RPH [address] [place] [address] Pharmacist Pharmacist 04/08/24 documented as of this encounter
--- OUTSIDE RECORDS SUMMARY | 2024-06-24 09:00 | XMS_ITS | Encounter Summary ---
Author Organization [place] Address [address] [place] [address] Care Team Providers Care Occupational Therapist Assistants Name Role Phone Feliciano Uribe MD Primary Care Provider Christina Roe PA-C Unavailable Christina Roe PA-C Unavailable Richie Rowell [facility] Unavailable Encounter Details Date Type Department Care Team (Late st Contact Info) Description 04/17/2024 12:50 PM CDT Lab [facility] Laboratory [address] [place] [phone] GCA (giant cell arteritis) (H); PMR (polymyalgia rheumatica) (H); Need for hepatitis B screening test Social [...] on file Legal Sex Female 3:41 AM NAILHEAD PUNCHER Gender Identity Not on file Sexual Orientation Not on file documented as of this encounter Plan of Treatment Upcoming Encounters Date Type Department Care Team (Late st Contact Info) Description 07/08/2024 9:30 AM NAILHEAD PUNCHER Virtual Visit [facility] Rheumatology [facility] [address] [facility] [address] [place] [phone] Zhane Crain MD [address] [place] [address] Richie Rowell, [facility] 9[address] [place] [address] 07/31/2024 2:00 PM NAILHEAD PUNCHER Office Visit [facility] [address] [facility] [address] [place] [address] Christina Roe PA-C [address] [place] [address] documented as of this encounter Procedures Procedure [...] cell arteritis) (H) PMR (polymyalgia rheumatica) (H) QUANTIFERON-TB GOLD PLUS Routine 04/17/2024 1:11 PM CDT GCA (giant cell arteritis) (H) PMR (polymyalgia rheumatica) (H) LIPID REFLEX TO DIRECT LDL PANEL Routine 04/17/2024 1:11 PM CDT GCA (giant cell arteritis) (H) HEPATITIS C ANTIBODY Routine 04/17/2024 1:11 PM CDT GCA (giant cell arteritis) (H) PMR (polymyalgia rheumatica) (H) HEPATITIS B SURFACE ANTIGEN Routine 04/17/2024 1:11 PM CDT GCA (giant cell arteritis) (H) PMR (polymyalgia rheumatica) (H) Need for hepatitis B screening test HEPATITIS B CORE ANTIBODY Routine 04/17/2024 1:11 PM CDT GCA (giant cell arteritis) (H) PMR (polymyalgia rheumatica) (H) Need for hepatitis B screening test ERYTHROCYTE [...] UM SPECIALTY CORE/PROT/ENDO UM Specialty Core/Prot/Endo [address] [facility], Room [address] * Quantiferon TB Gold Plus Purple Tube (04/17/2024 1:11 PM CDT) Pathologist [facility] Quantiferon Mitogen 2.03 IU/mL 04/18/2024 4:17 PM CDT SPECIALTY CORE/PROT/ENDO Blood BLOOD SPECIMEN / Unknown Venipuncture / Unknown 04/17/2024 1:11 PM CDT 04/17/2024 1:24 PM CDT us Zhane Crain MD LAB - MICRO G ENERAL ORDERABLES Final Result UM SPECIALTY CORE/PROT/ENDO UM Specialty Core/Prot/Endo 500 [facility], [address] * Quantiferon TB Gold Plus Yellow Tube (04/17/2024 1:11 PM CDT) Quantiferon TB2 Tube 0.00 04/18/2024 4:18 PM CDT UM SPECIALTY CORE/PROT/ENDO Blood BLOOD SPECIMEN / Unknown Venipuncture / Unknown 04/17/2024 1:11 PM CDT 04/17/2024 1:24 PM CDT Zhane Crain MD LAB - MICRO G ENERAL ORDERABLES Final Result UM SPECIALTY CORE/PROT/ENDO Specialty Core/Prot/Endo 500 [facility], [address] * Quantiferon TB Gold Plus Green Tube (04/17/2024 1:11 PM CDT) Quantiferon TB1 Tube 0.00 IU/mL 04/18/2024 4:18 PM CDT SPECIALTY CORE/PROT/ENDO Blood BLOOD SPECIMEN / Unknown Venipuncture / Unknown 04/17/2024 1:11 PM CDT 04/17/2024 1:24 PM CDT Zhane Crain MD LAB - MICRO G ENERAL ORDERABLES Final Result UM SPECIALTY CORE/PROT/ENDO UM Specialty Core/Prot/Endo 500 [facility], [address] * Quantiferon TB Gold Plus Plunkett Tube (04/17/2024 1:11 PM CDT) Quantiferon Nil Tube 0.00 IU/mL 04/18/2024 4:18 PM CDT UM SPECIALTY CORE/PROT/ENDO Blood BLOOD SPECIMEN / Unknown Venipuncture / Unknown 04/17/2024 1:11 PM CDT 04/17/2024 1:24 PM CDT Zhane Crain MD LAB - MICRO G ENERAL ORDERABLES Final Result SPECIALTY CORE/PROT/ENDO Specialty Core/Prot/Endo [address] [facility], Room [address] [place] [address] * Lipid panel reflex to direct LDL [...] - BLOOD O RDERABLES Final Result LABORATORY [facility] Core Lab [address] [facility], [address] [place] [address] * (ABNORMAL) CBC with platelets (04/17/2024 1:11 PM CDT) [facility] WBC Count 6.2 4.0 - [...] LAB - BLOOD O RDERABLES Final Result [facility] [address] * Creatinine (04/17/2024 1:11 PM CDT) [...] BLOOD O RDERABLES Final Result U LABORATORY [facility] Core Lab [address] [facility], [address] * AST (04/17/2024 1:11 PM CDT) Pathologist [facility] AST 42 0 - 45 U/L 04/17/2024 7:4 3 PM CDT UU LABORATORY Blood STRUCTURE OF RIGHT UPPER LIMB / Unknown Venipuncture / Unknown 04/17/2024 1:11 PM CDT 04/17/2024 1:24 PM CDT Zhane Crain MD LAB - BLOOD O RDERABLES Final Result U LABORATORY [facility] Core Lab [address] [facility], [address] [id number] * (ABNORMAL) ALT (04/17/2024 1:11 PM CDT) Pathologist [facility] ALT 101(H) 0 - 50 U/L 04/17/2024 7:43 PM CDT U LABORATORY Blood STRUCTURE OF RIGHT UPPER LIMB / Unknown Venipuncture / Unknown 04/17/2024 1:11 PM CDT 04/17/2024 1:24 PM CDT Zhane Crain MD LAB - BLOOD O RDERABLES Final Result [facility] LABORATORY [facility] Core Lab [address] [facility], [address] [place] [address], [facility] * CRP inflammation (04/17/2024 1:11 PM CDT) CRP Inflammation <3.00 <5.00 mg/L 04/17/20 7:43 PM CDT [facility] LABORATORY Blood STRUCTURE OF RIGHT UPPER LIMB / Unknown Venipuncture / Unknown 04/17/2024 1:11 PM CDT 04/17/2024 1:24 PM CDT Zhane Crain MD LAB - BLOOD O RDERABLES Final Result [facility] LABORATORY [facility] Core Lab [address] [facility], Room [address] [place] [phone], [facility] * Erythrocyte sedimentation rate auto (04/17/2024 1:11 PM CDT) Erythrocyte Sedimentation Rate 5 0 - 30 mm/hr 04/17/2024 1:43 PM CDT [facility] Blood STRUCTURE OF RIGHT UPPER LIMB / Unknown Venipuncture / Unknown 04/17/2024 1:11 PM CDT 04/17/2024 1:24 PM CDT Zhane Crain MD LAB - BLOOD O RDERABLES Final Result [facility] [address] [address], [place] * Hepatitis B surface antigen (04/17/2024 1:11 PM CDT) Pathologist [facility] Hepatitis B Surface Antigen Nonreactive Nonreactive 04/17/2024 8:05 PM CDT U LABORATORY Blood STRUCTURE OF RIGHT UPPER LIMB / Unknown Venipuncture / Unknown 04/17/2024 1:11 PM CDT 04/17/2024 1:24 PM CDT Zhane Crain MD LAB - BLOOD O RDERABLES Final Result LABORATORY [facility] Core Lab [address] [facility], [address] [phone] * Hepatitis B core antibody (04/17/2024 1:11 PM CDT) [facility] Hepatitis B Core Antibody Total Nonreactive [...] - BLOOD O RDERABLES Final Result LABORATORY [facility] Core Lab [address] [facility], [address] [address] * Hepatitis C antibody (04/17/2024 1:11 PM CDT) [facility] Hepatitis C Antibody Nonreactive Nonreactive 04/17/2024 [...] - BLOOD O RDERABLES Final Result LABORATORY [facility] Core Lab [address] [facility], Room [address] [place] [address], [facility] documented in this encounter Visit Diagnoses Diagnosis GCA (giant cell arteritis) (H) Giant cell arteritis PMR (polymyalgia rheumatica) (H) Polymyalgia rheumatica Need for hepatitis B screening test documented in this encounter Care Teams Occupational Therapist Assistants Relationship Specialty Start Date End Date Feliciano Uribe MD [facility] - [address] [address] PCP - General Family Medicine 06/01/23 Christina Roe PA-C [address] [place] [address] Physician Newspaper Deliverer Rheumatology 11/06/23 Christina Roe PA-C [address] [place] [address] Assigned Rheumatology Provider 11/09/23 Richie Rowell RPH [address] [place] [address] Pharmacist Pharmacist 04/08/24 documented as of this encounter
--- OUTSIDE RECORDS SUMMARY | 2024-06-24 09:00 | XMS_ITS | Encounter Summary ---
Author Organization [place] Address [address] [place] [address] Care Team Providers Care Couture Dressmaker Name Role Phone Feliciano Uribe MD Primary Care Provider [phone] Christina Roe PA-C Unavailable Christina Roe PA-C Unavailable [phone] Richie Rowell [facility] Unavailable Richie Rowell [facility] Unavailable Reason for Visit * Diagnostic Imaging Ultrasound (Routine) - Pending Review Specialty Diagnoses / Procedures Referred By Amena prasad Referred To Contact Radiology. Diagnoses GCA (giant cell arteritis) (H) Pain in right lower leg Procedures US Lower Extremity Venous Duplex Right Zhane Crain MD [address] [place] [address] Phone: tel: fax: Referral ID Status Reason Start Date Expiration Date V isits Requested Visits Authorized [id number] Pending Review 04/17/2024 04/17/2025 3 3 Encounter Details Date Type Department Care Team (Latest Contact Info) Description 04/22/2024 2:20 PM CDT Ancillary Procedure [facility] [address] [place] [address] Zhane Crain MD [address] [place] [address] GCA (giant cell arteritis) (H); [...] on file Legal Sex Female 3:41 AM ICT TRAINER Gender Identity Not on file Sexual Orientation Not on file documented as of this encounter Plan of Treatment Upcoming Encounters Date Type Department Care Team (Late st Contact Info) Description 07/08/2024 9:30 AM ICT TRAINER Virtual Visit [facility] Rheumatology [facility] [address] [facility] [address] [place] [phone] Zhane Crain MD [address] [place] [address] [facility] [address] [place] [address] 07/31/2024 2:00 PM ICT TRAINER Office Visit [facility] [address] [facility] [address] [place] [phone] Christina Roe PA-C [address] [place] [address] documented as of this encounter [...] US LOWER EXTREMITY VENOUS DUPLEX RIGHT LOCATION: [facility] DATE: 04/22/2024 INDICATION: ??GCA (giant cell [...] US LOWER EXTREMITY VENOUS DUPLEX RIGHT LOCATION: [facility] DATE: 04/22/2024 INDICATION: GCA (giant cell [...] the right lower extremity. Zhane Crain MD IMG US ORDERA BLES Final Result documented in this encounter Visit Diagnoses Diagnosis GCA (giant cell arteritis) (H) Giant cell arteritis Pain in right lower leg documented in this encounter Care Teams Couture Dressmaker Relationship Specialty Start Date End Date Feliciano Uribe MD [address] [place] [address] PCP - General Family Medicine 06/01/23 Christina Roe PA-C [address] [place] [address] Physician Finishing Department Supervisor Rheumatology 11/06/23 Christina Roe PA-C [address] [place] [address] Assigned Rheumatology Provider 11/09/23 Richie Rowell RPH [address] [place] [address] Pharmacist Pharmacist 04/08/24 Richie Rowell RPH [address] [place] [address] Assigned MTM Pharmacist 04/18/24 documented as of this encounter
--- OUTSIDE RECORDS SUMMARY | 2024-06-24 09:00 | XMS_ITS | Encounter Summary ---
Author Organization [place] Address [address] [place] [address] Care Team Providers Care Global Marketing Operations Manager Name Role Phone Feliciano Uribe MD Primary Care Provider [phone] Christina Roe PA-C Unavailable [phone] Christina Roe PA-C Unavailable Richie Rowell [facility] [...] on file Legal Sex Female 3:41 AM TRAFFIC WORKFORCE REPRESENTATIVE Gender Identity Not on file Sexual Orientation Not on file documented as of this encounter Plan of Treatment Upcoming Encounters Date Type Department Care Team (Late st Contact Info) Description 07/08/2024 9:30 AM TRAFFIC WORKFORCE REPRESENTATIVE Virtual Visit [facility] Rheumatology [facility] [address] [facility] [address] [place] [address] Zhane Crain MD [address] [place] [address] Richie Rowell RPH [address] [place] [address] 07/31/2024 2:00 PM TRAFFIC WORKFORCE REPRESENTATIVE Office Visit [facility] [address] [facility] [address] [place] [address] Christina Roe PA-C [address] [place] [address] documented as of this encounter Visit Diagnoses Not on filedocumented in this encounter Care Teams Global Marketing Operations Manager Relationship Specialty Start Date End Date Feliciano Uribe MD [address] [address] PCP - General Family Medicine 06/01/23 Christina Roe PA-C [address] [place] [address] Physician Memorial Adviser Rheumatology 11/06/23 Christina Roe PA-C [address] [place] [address] Assigned Rheumatology Provider 11/09/23 Richie Rowell RPH 9 [place] [address] Pharmacist Pharmacist 04/08/24 Richie Rowell RPH [address] [place] [address] Assigned MTM Pharmacist 04/18/24 documented as of this encounter
--- OUTSIDE RECORDS SUMMARY | 2024-06-24 09:00 | XMS_ITS | Encounter Summary ---
Author Organization [place] Address [address] [place] [address] Care Team Providers Care Pick Up And Delivery Driver Name Role Phone Feliciano Uribe MD Primary Care Provider Christina Roe PA-C Unavailable [phone] Christina Roe PA-C Unavailable [phone] Richie Rowell [facility] Unavailable Reason for Visit * Rehab Therapy Integrated Services (Routine: Next available opening) - Authorized Specialty Diagnoses / Procedures Referred By Amena prasad Referred To Contact Diagnoses Temporal arteritis (H) PMR (polymyalgia rheumatica) (H) [address] [address] Phone: tel: Referral ID Status Reason Start Date Expiration Date V isits Requested Visits Authorized [id number] Authorized 03/27/2024 08/26/2024 365 365 Encounter Details Date Type Department Care Team (Latest Contact Info) Description 04/14/2024 10:45 AM CDT Therapy Visit [address] [place] [phone] Maricruz [place], PT [address] [place] [address] Temporal arteritis (H) (Primary Dx); PMR (polymyalgia rheumatica) (H); Impaired gait and mobility Social History Tobacco [...] on file Legal Sex Female 3:41 AM NURSE ADVISOR Gender Identity Not on file Sexual Orientation Not on file documented as of this encounter Plan of Treatment Upcoming Encounters Date Type Department Care Team (Late st Contact Info) Description 07/08/2024 9:30 AM NURSE ADVISOR Virtual Visit [facility] Rheumatology [facility] [address] [facility] [address] [place] [phone] Zhane Crain MD [address] [place] [address] Richie Rowell, [facility] 9[address] [place] [address] 07/31/2024 2:00 PM NURSE ADVISOR Office Visit [facility] [address] [facility] [address] [place] [phone] Christina Roe PA-C [address] [place] [address] documented as of this encounter Visit Diagnoses Diagnosis Temporal arteritis (H)- Primary Giant cell arteritis PMR (polymyalgia rheumatica) (H) Polymyalgia rheumatica Impaired gait and mobility documented in this encounter Care Teams Pick Up And Delivery Driver Relationship Specialty Start Date End Date Feliciano Uribe MD [facility] [address] [place] [address] PCP - General Family Medicine 06/01/23 Christina Roe PA-C [facility] [place] [address] Physician Bell Cleaner Rheumatology 11/06/23 Christina Roe PA-C [address] [place] [address] Assigned Rheumatology Provider 11/09/23 Richie Rowell RPH [address] [place] [address] Pharmacist Pharmacist 04/08/24 documented as of this encounter
--- OUTSIDE RECORDS SUMMARY | 2024-06-24 09:00 | XMS_ITS | Encounter Summary ---
Author Organization [place] Address [address] [place] [address] Care Team Providers Care Customizer Name Role Phone Feliciano Uribe MD Primary Care Provider Christina Roe PA-C Unavailable [phone] Christina Roe PA-C Unavailable Richie Rowell [facility] Unavailable Richie Rowell [facility] Unavailable Zhane Crain MD Unavailable Saeed Berry MD Unavailable [phone] Encounter Details Date Type Department Care Team (Late st Contact Info) Description 04/10/2024 MyC Medical Advice [facility] [address] [facility] [address] [place] [address] Richie Rowell, [facility] [address] [place], [place] [phone] Social History Tobacco Use Types Packs/Day Years [...] on file Legal Sex Female 3:41 AM LEADERSHIP DEVELOPMENT INSTRUCTOR Gender Identity Not on file Sexual Orientation Not on file documented as of this encounter Plan of Treatment Upcoming Encounters Date Type Department Care Team (Late st Contact Info) Description 07/08/2024 9:30 AM LEADERSHIP DEVELOPMENT INSTRUCTOR Virtual Visit [facility] Rheumatology [facility] [address] [facility] [address] [place] [phone] Zhane Crain MD [address] [place] [address] Richie Rowlel, [facility] [address] [place] [address] 07/31/2024 2:00 PM LEADERSHIP DEVELOPMENT INSTRUCTOR Office Visit [facility] [address] [facility] [address] [place] [phone] Christina Roe PA-C [address] [place] [address] documented as of this encounter Visit Diagnoses Not on filedocumented in this encounter Care Teams Customizer Relationship Specialty Start Date End Date Feliciano Uribe MD [facility] [address] [address] PCP - General Family Medicine 06/01/23 Christina Roe PA-C [address] [place] [address] Physician Socket Puller Rheumatology 11/06/23 Christina Roe PA-C [address] [place] [address] Assigned Rheumatology Provider 11/09/23 Richie Rowell [facility] [address] [place] [address] Pharmacist Pharmacist 04/08/24 Richie Rowell [facility] [address] [place] [address] Assigned MTM Pharmacist 04/18/24 Zhane Crain MD [address] [place] [address] Physician Rheumatology 05/14/24 Saeed Berry MD [address] [place] [address] Assigned Surgical Provider 05/19/24 documented as of this encounter
--- OUTSIDE RECORDS SUMMARY | 2024-06-24 09:00 | XMS_ITS | Encounter Summary ---
Author Organization [facility] Address [address] [place] [address] Care Team Providers Care Inspector Repairer Sandstone Name Role Phone Feilciano Uribe MD Primary Care Provider Christina Roe PA-C Unavailable Christina Roe PA-C Unavailable [phone] Richie Rowell [facility] Unavailable Richie Rowell [facility] Unavailable Zhane Crain MD Unavailable Saeed Berry MD Unavailable [phone] Encounter Details Date Type Department Care Team (Late st Contact Info) Description 05/06/2024 MyC Medical Advice [address] [place] [address] Christina Roe PA-C [address] [place] [address] Social History Tobacco Use Types Packs/Day Years [...] on file Legal Sex Female 3:41 AM OPERATOR CAVITY PUMP Gender Identity Not on file Sexual Orientation Not on file documented as of this encounter Plan of Treatment Upcoming Encounters Date Type Department Care Team (Late st Contact Info) Description 07/08/2024 9:30 AM OPERATOR CAVITY PUMP Virtual Visit [facility] Rheumatology [facility] [address] [facility] [address] [place] [phone] Zhane Crain MD [address] [place] [address] Richie Rowell, [facility] [address] [place] [address] 07/31/2024 2:00 PM OPERATOR CAVITY PUMP Office Visit [facility] [address] [facility] [address] [place] [phone] Christina Roe PA-C [address] [place] [address] documented as of this encounter Visit Diagnoses Not on filedocumented in this encounter Care Teams Inspector Repairer Sandstone Relationship Specialty Start Date End Date Feliciano Uribe MD [facility] & [address] [address] PCP - General Family Medicine 06/01/23 Christina Roe PA-C [address] [place] [address] Physician Plug Cutter Rheumatology 11/06/23 Christina Roe PA-C [address] [place] [address] Assigned Rheumatology Provider 3/15/24 Richie Rowell [facility] [address] [place] [address] Pharmacist Pharmacist 04/08/24 Richie Rowell [facility] [address] [place] [address] Assigned MTM Pharmacist 04/18/24 Zhane Crain MD [address] [place] [address]33[address] Physician Rheumatology 05/14/24 Saeed Berry MD [address] [place] [address] [address] [place], [place] 9545[address] Assigned Surgical Provider 05/19/24 documented as of this encounter
--- OUTSIDE RECORDS SUMMARY | 2024-06-24 09:01 | XMS_ITS | Encounter Summary ---
Author Organization [facility] Address [address] [place] [address] Care Team Providers Care Brand Advisor Name Role Phone Feliciano Uribe MD Primary Care Provider [phone] Christina Roe PA-C Unavailable [phone] Christina Roe PA-C Unavailable [phone] Reason for Referral * Occupational Therapy (Routine: Next available opening) - Pending Review Specialty Diagnoses / Procedures Referred By Amena prasad Referred To Contact Diagnoses Temporal arteritis (H) PMR (polymyalgia rheumatica) (H) Christina Roe PA-C [address] [place] [address] Phone: tel: fax: Referral ID Status Reason Start Date Expiration Date V isits Requested Visits Authorized [id number] Pending Review 04/02/2024 04/02/2025 1 1 Question Answer Course of Action: Evaluation and Treatment Specialty Services: Per Associated Diagnosis Scheduling Instructions: [facility] will call you to coordinate your care as prescribed by your provider. If you don't hear from a major account representative within 2 business days, please call . Comments Please be aware that coverage of these services is subject to the terms and limitations of your health insurance plan. Call member services at your health plan with any benefit or coverage questions. [facility] will call you to coordinate your care as prescribed by your provider. If you don't hear from a major account representative within 2 business days, please call . Reason for Visit * Rehab Therapy Integrated Services (Routine: Next available opening) - Authorized Specialty Diagnoses / Procedures Referred By Amena prasad Referred To Contact Diagnoses Temporal arteritis (H) PMR (polymyalgia rheumatica) (H) [address] [address] Phone: tel: Referral ID Status Reason Start Date Expiration Date V isits Requested Visits Authorized [id number] Authorized 03/27/2024 08/26/2024 365 365 Encounter Details Date Type Department Care Team (Late st Contact Info) Description 04/02/2024 2:15 PM CDT Therapy Visit [address] [place] [phone] Luz Yuan MD [address] [place] [address]59815 Sue Gayle, PT [facility] [address] [place] [address] 733874 Impaired gait and mobility (Primary Dx); Temporal [...] on file Legal Sex Female 3:41 AM CLAY PREPARATION SUPERVISOR Gender Identity Not on file Sexual [...] significant other or spouse Type of home: [facility]; 1 level Stairs to enter the home: Ramp: No Stairs inside the home: No Help at home: Self Cares (home health aide/personal finance instructor, family, etc) Equipment owned: Walker Employment: Hobbies/Interests: [...] time. SPECIAL TESTS Functional Gait Assessment (FGA) (< indicates fall risk) 10 Meter Walk Test (Comfortable) 0.72 m/s with 4ww 30 sec sit to stand 0 (7 reps with UE support) Dynamic Gait Index (DGI) (< indicates fall risk) Timed Up and Go [...] to perform self care tasks, recreational activities, copy and print associate, household mobility, community mobility, and increased fall risk as compared to previous level of function. Clinical Decision Making (Complexity): Clinical Presentation: Evolving/Changing Clinical Presentation Rationale: based on medical and personal factors listed in PT evaluation Clinical Decision Making (Complexity): Moderate complexity PLAN OF CARE Treatment Interventions: Interventions: Gait Training, Manual Therapy, Neuromuscular Re-education, Therapeutic Activity, Therapeutic Exercise, Self-Care/Home Management Fci Goals PT Goal 1 Goal Identifier: HEP [...] with Plan of Care. Evaluation Time: PT Lseter Farris Minutes (17233): 30 Signing Clinician: Sue Gayle, PT [facility] OUTPATIENT PHYSICAL THERAPY PLAN OF TREATMENT FOR OUTPATIENT REHABILITATION Patient's Last Name, First Name, Gato Yeh Date of : 1945 Provider's Name [facility] Onset Date: 03/12/24 Start of Care Date: [...] Epic Evaluation- Start of Care Date: 04/02/24 Cosigned by Christina Roe PA-C at 04/02/2024 3:21 PM CDT Associated attestation - Christina Roe PA-C - 04/02/2024 3:21 PM CDT Physician Attestation I agree with the information in this note. Christina Roe PA-C documented in this encounter Plan of Treatment Upcoming Encounters Date Type Department Care Team (Late st Contact Info) Description 07/08/2024 9:30 AM CLAY PREPARATION SUPERVISOR Virtual Visit [facility] Rheumatology [facility] [address] [facility] [address] [place] [phone] Zhane Crain MD [address] [place] [address] [facility] 9[address] [place] [address] 07/31/2024 2:00 PM CLAY PREPARATION SUPERVISOR Office Visit [facility] [address] [facility] 200 [place] [phone] Christina Roe PA-C [address] [place] [address] Scheduled Referrals Name Type Priority Associated Diagnoses Order Schedule Occupational Therapy Sound Truck Operator Referral Referral Routine: Next available opening Temporal arteritis (H) PMR (polymyalgia rheumatica) (H) Expected: 04/02/2024 (Approximate), Expires: 04/02/2025 documented as of this encounter Visit Diagnoses Diagnosis Impaired gait and mobility- Primary Temporal arteritis (H) Giant cell arteritis PMR (polymyalgia rheumatica) (H) Polymyalgia rheumatica documented in this encounter Care Teams Brand Advisor Relationship Specialty Start Date End Date Feliciano Uribe MD [facility] [address] [place] [address] PCP - General Family Medicine 06/01/23 Christina Roe PA-C [facility] [place] [address] Physician Consulting Services Project Manager Rheumatology 11/06/23 Christina Roe PA-C [address] [place] [address] Assigned Rheumatology Provider 11/09/23 documented as of this encounter
--- OUTSIDE RECORDS SUMMARY | 2024-06-24 09:01 | XMS_ITS | Encounter Summary ---
Author Organization [facility] Address [address] [place] [address]. 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 Gender Identity Not on file Sexual Orientation Not on file documented as of this encounter Miscellaneous Notes * Telephone Encounter - Trinity Rodriguez - 04/01/2024 3:20 PM CDT I have called x 3 and left three VM Sent a Per Viceshart message This appointment has been canceled / not able to connect with pt or confirm appt Neuro is aware Trinity Rodriguez Communication Sample Builder on 04/01/2024 at 3:21 PM * Telephone [...] st Contact Info) Description 07/08/2024 9:30 AM CHIP CRUSHER OPERATOR Virtual Visit [facility] Rheumatology [facility] [address] [facility] [address] [place] [address] Zhane Crain MD [address] [place], [place] [phone] Richie Rowell Just[facility] [address] [place] [address] 07/31/2024 2:00 PM CHIP CRUSHER OPERATOR Office Visit [address] [place] [address] Christina Roe PA-C [address] [place] [address] documented as of this encounter Visit Diagnoses Not on filedocumented in this encounter Care Teams Waiter/Waitress Counter Relationship Specialty Start Date End Date Feliciano Uribe MD [address] [address] PCP - General Family Medicine 06/01/23 Christina Roe PA-C [address] [place] [address] Physician Ic Designer Gate Arrays Rheumatology 11/06/23 Christina Roe PA-C [address] [place] [address] Assigned Rheumatology Provider 11/09/23 documented as of this encounter
--- OUTSIDE RECORDS SUMMARY | 2024-06-24 09:01 | XMS_ITS | Encounter Summary ---
Author Organization [facility] Address [address] [place] [address] Care Team Providers Care Water/Wastewater Engineer Name Role Phone Feliciano Uribe MD Primary Care Provider [phone] Christina Roe PA-C Unavailable [phone] Christina Roe PA-C Unavailable [phone] Encounter Details Date Type Department Care Team [...] on file Legal Sex Female 3:41 AM EVENT STAFF Gender Identity Not on file Sexual Orientation Not on file documented as of this encounter Plan of Treatment Upcoming Encounters Date Type Department Care Team (Late st Contact Info) Description 07/08/2024 9:30 AM EVENT STAFF Virtual Visit [facility] Rheumatology [facility] [address] [facility] [address] [place] [address] Zhane Crain MD [address] [place] [address] [facility] 9[address] [place] [address] 07/31/2024 2:00 PM EVENT STAFF Office Visit [facility] [address] [facility] 200 [place] [address] Christina Roe PA-C [address] [place] [address] documented as of this encounter Visit Diagnoses Not on filedocumented in this encounter Care Teams Water/Wastewater Engineer Relationship Specialty Start Date End Date Feliciano Uribe MD [facility] [address] [place] [address] PCP - General Family Medicine 06/01/23 Christina Roe PA-C [address] [place] [address] Physician Weighing Station Operator Rheumatology 11/06/23 Christina Roe PA-C [address] [place] [address] Assigned Rheumatology Provider 11/09/23 documented as of this encounter
--- OUTSIDE RECORDS SUMMARY | 2024-06-24 09:01 | XMS_ITS | Encounter Summary ---
Author Organization [facility] Address [address] [place] [address] Care Team Providers Care Manufacturing Technology Professor Name Role Phone Feliciano Uribe MD Primary Care Provider Christina Roe PA-C Unavailable [phone] Christina Roe PA-C Unavailable Villa Alexander RPH Unavailable Reason for Visit * Reason Comments Medication Therapy Management * Med Therapy Management (Routine: Next available opening) - Pending Review Specialty Diagnoses / Procedures Referred By Amena prasad Referred To Contact Pharmacist Diagnoses GCA (giant cell arteritis) (H) Zhane Crain MD [address] [place] [address] Phone: tel: fax: Referral ID Status Reason Start Date Expiration Date V isits Requested Visits Authorized [id number] Pending Review 03/24/2024 03/24/2025 1 1 Encounter Details Date Type Department Care Team (Latest Contact Info) Description 04/08/2024 9:30 AM CDT Virtual Visit [facility] [address] [facility] [address] [place] [address] Zhane Crain MD [address] [place] [address] Villa Alexander RPH [address] [place] [address] GCA (giant cell arteritis) (H) (Primary Dx); [...] on file Legal Sex Female 3:41 AM VIRTUAL ASSISTANT FOR ADVERTISERS Gender Identity Not on file Sexual Orientation Not on file documented as of this encounter Patient Instructions * Patient Instructions* Villa Alexander, [facility] - 04/08/2024 9:30 AM CDT Recommendations from [...] receive an email or text message from [employer] with a link to a survey related to your ???clinical pharmacist. To schedule another MTM appointment, please call the clinic directly or you may call the MTM scheduling line at [phone] or toll-free at . My Clinical Pharmacist's contact information: Please feel free to contact me with any questions or concerns you have. Villa Alexander, PharmD Medication Therapy Management Pharmacist [facility] documented in this encounter [...] (PEDS <7y) 01/30/1980 Flu, Unspecified 05/05/2011, 06/21/2020 [id number] Novel Flu 06/28/2009 Influenza (High Dose) 3 [...] 1000 mcg every 30 days Vitamin D2 93222 units once weekly Multivitamin once daily Tums [...] summary of these recommendations was sent via PopJam. Villa Alexander, PharmD Medication Therapy Management Pharmacist [facility] Telemedicine Visit Details Type of service: Video Conference via Breathometer Joined the call at 04/08/2024, 9:29:36 am. [...] st Contact Info) Description 07/08/2024 9:30 AM VIRTUAL ASSISTANT FOR ADVERTISERS Virtual Visit [facility] Rheumatology [facility] [address] [facility] 101 [place] [phone] Zhane Crain MD [address] [place] [address] Villa Alexander RP [address] [place] [address] 07/31/2024 2:00 PM VIRTUAL ASSISTANT FOR ADVERTISERS Office Visit [facility] [address] [facility] [address] [place] [phone] Christina Roe PA-C [address] [place] [address] documented as of this encounter Results * Hepatitis B surface antigen (04/17/2024 1:11 PM CDT) Pathologist [facility] Hepatitis B Surface Antigen Nonreactive Nonreactive 04/17/2024 8:05 PM CDT [facility] Blood STRUCTURE OF RIGHT UPPER LIMB / Unknown Venipuncture / Unknown 04/17/2024 1:11 PM CDT 04/17/2024 1:24 PM CDT Zhane Crain MD LAB - BLOOD O RDERABLES Final Result Performing Organization Address City/[facility]/ZIP Co de Phone Number LABORATORY [facility] [place] [facility] [address] [facility], Room [address] [phone] * Hepatitis B core antibody (04/17/2024 1:11 PM CDT) [facility] Hepatitis B Core Antibody Total Nonreactive Nonreactive [...] O RDERABLES Final Result Performing Organization Address [facility]/ZIP Co de Phone Number LABORATORY [facility] [place] [facility] [address] [facility], Room [address] [phone] * Hepatitis C antibody (04/17/2024 1:11 PM CDT) [facility] Hepatitis C Antibody Nonreactive Nonreactive 04/17/2024 8:05 [...] BLOOD O RDERABLES Final Result U LABORATORY [facility] [place] [facility] [address] [facility], [address] [place] [address], [facility] documented in this encounter Visit Diagnoses Diagnosis GCA (giant cell arteritis) (H)- Primary Giant cell arteritis PMR (polymyalgia rheumatica) (H) Polymyalgia rheumatica Vaccine counseling Primary hypertension Unspecified essential hypertension Hyperlipidemia, unspecified hyperlipidemia type Anxiety Anxiety state, unspecified Depression, unspecified depression type Hypothyroidism, unspecified type Takes dietary supplements Need for hepatitis B screening test documented in this encounter Care Teams Manufacturing Technology Professor Relationship Specialty Start Date End Date Feliciano Uribe MD [facility] [address] [place] [address] PCP - General Family Medicine 06/01/23 Christina Roe PA-C [address] [place] [address] Physician Business Services Coordinator Rheumatology 11/06/23 Christina Roe PA-C [address] [place] [address] Assigned Rheumatology Provider 11/09/23 Villa Alexander RPH [address] [place] [address] Pharmacist Pharmacist 04/08/24 documented as of this encounter
--- OUTSIDE RECORDS SUMMARY | 2024-06-24 09:01 | XMS_ITS | Encounter Summary ---
Author Organization [facility] Address [address] [place] [address]. [place] [address] Care Team Providers Care 3D Specialist Name Role Phone Feliciano Uribe MD Primary Care Provider Christina Roe PA-C Unavailable [phone] Christina Roe PA-C Unavailable Richie Rowell [facility] Unavailable Richie Rowell [facility] Unavailable Zhane Crain MD Unavailable Saeed Berry MD Unavailable [phone] Encounter Details Date Type Department Care Team (Late st Contact Info) Description 03/27/2024 [facility] Eye [address] [place] [address] [facility] Social History Tobacco Use Types Packs/Day Years [...] on file Legal Sex Female 3:41 AM ENGINE DISPATCHER Gender Identity Not on file Sexual Orientation Not on file documented as of this encounter Plan of Treatment Upcoming Encounters Date Type Department Care Team (Late st Contact Info) Description 07/08/2024 9:30 AM ENGINE DISPATCHER Virtual Visit [facility] Rheumatology [facility] [address] [facility] 101 [place] [phone] Zhane Crain MD [address] [place] [address] Richie Rowell RPH [address] [place] [address] 07/31/2024 2:00 PM ENGINE DISPATCHER Office Visit [facility] [address] [facility] 200 [place] [phone] Christina Roe PA-C [address] [place] [address] documented as of this encounter Visit Diagnoses Not on filedocumented in this encounter Care Teams 3D Specialist Relationship Specialty Start Date End Date Feliciano Uribe MD [facility] 2000 [place] [address] PCP - General Family Medicine 06/01/23 Christina Roe PA-C [address] [place] [address] Physician Business Office Technician Rheumatology 11/06/23 Christina Roe PA-C [address] [place] [address] Assigned Rheumatology Provider 11/09/23 Richie Rowell RPH [address] [place] [address] Pharmacist Pharmacist 04/08/24 Richie Rowell [facility] [address] [place] [address] Assigned MTM Pharmacist 04/18/24 Zhane Crain MD [address] [place] [address] Physician Rheumatology 05/14/24 Saeed Berry MD [address] [place] [address] Assigned Surgical Provider 05/19/24 documented as of this encounter
--- OUTSIDE RECORDS SUMMARY | 2024-06-24 09:01 | XMS_ITS | Encounter Summary ---
Author Organization [facility] Address [address] [place] [address] Care Team Providers Care Sales Assistant Displays Name Role Phone Feliciano Uribe MD Primary Care Provider Christina Roe PA-C Unavailable Christina Roe PA-C Unavailable Encounter Details Date Type Department Care Team (Late st Contact Info) Description 03/27/2024 Telephone [facility] Eye [facility] [place] 123426 [facility] 9[facility] [address] [place] [phone] Saeed Berry MD [address] [place] [address], CLINIC [address] [place], [place] [address] Social History Tobacco Use Types Packs/Day Years [...] on file Legal Sex Female 3:41 AM DATA ENTRY MANAGER Gender Identity Not on file Sexual Orientation Not on file documented as of this encounter Miscellaneous Notes * Telephone Encounter - Trinity Rodriguez - 03/27/2024 4:15 PM CDT Called and LVM Scheduled for 04/09 @ 815 am if Gato is not able to come in that day - ok for next available and add to the wait list Sent a InfoReach message Trinity Rodriguez Communication Public Interviewer on 03/27/2024 at 4:19 PM documented in this encounter Plan of Treatment Upcoming Encounters Date Type Department Care Team (Late st Contact Info) Description 07/08/2024 9:30 AM DATA ENTRY MANAGER Virtual Visit [facility] Rheumatology [facility] [address] [facility] 101 [place] [phone] Zhane Crain MD 500 [place] [address] [facility] 909 [place] [address] 07/31/2024 2:00 PM DATA ENTRY MANAGER Office Visit [facility] [address] [facility] [address] [place] [phone] Christina Roe PA-C 5[address] [place] [address] documented as of this encounter Visit Diagnoses Not on filedocumented in this encounter Care Teams Sales Assistant Displays Relationship Specialty Start Date End Date Feliciano Uribe MD [facility] 2000 [place] [address] PCP - General Family Medicine 06/01/23 Christina Roe PA-C [address] [place] [address] Physician Residential Coordinator Rheumatology 11/06/23 Christina Roe PA-C [address] [place] [address] Assigned Rheumatology Provider 11/09/23 documented as of this encounter
--- OUTSIDE RECORDS SUMMARY | 2024-06-24 09:01 | XMS_ITS | Encounter Summary ---
Author Organization [place] Address [address] [place] [id number] Care Team Providers Care Frame Maker Name Role Phone Feliciano Uribe MD Primary Care Provider [phone] Christina Roe PA-C Unavailable Christina Roe PA-C Unavailable Richie Rowell [facility] Unavailable Richie Rowell [facility] Unavailable Reason for Visit * Reason Onset Date Comments Prior Auth - Medication 04/08/2024 Actemra Encounter Details Date Type Department Care Team ([facility] st Contact Info) Description 04/08/[address] [place] [address] Freddy Crain MD [address] [place] [id number] Prior Auth - Medication (Actemra) Social History [...] on file Legal Sex Female 3:41 AM GENERAL FARM MANAGER Gender Identity Not on file Sexual Orientation Not on file documented as of this encounter Miscellaneous Notes * Telephone Encounter - Adalberto Boles - 05/09/2024 2:28 PM CDT [place] APPROVED Medication: ACTEMRA ACTPEN 162 MG/0.9ML SC SOAJ Amount: $ 35,815.44 [facility] [place] Name: [facility] Effective Date: 05/09/2024 Foundation Expiration Date: 08/26/2024 Additional Information: must fill with [facility] Patient Notified: yes * Telephone Encounter - Adalberto Boles - 05/08/2024 4:05 PM CDT Do we want the pens or syringes? Order currently will send as syringes * Telephone Encounter - Adalberto Boles - 05/05/2024 10:13 AM CDT [place] INITIATED Medication: ACTEMRA ACTPEN 162 MG/0.9ML SC SOAJ Foundation Name: [facility] Date submitted: 05/05/2024 10:13 AM * Telephone [...] Date: 04/09/2025 Approved Dose/Quantity: 3.6 Reference #: [id number] Insurance Company: Medicare Blue - Expected CoPay: $ 2160.80 CoPay Card Available: No Financial Assistance Needed: no Which Pharmacy is filling the prescription: [facility] - [address] Pharmacy Notified: yes Patient Notified: yes * Telephone Encounter - Adalberto Boles - 04/09/2024 8:13 AM CDT PA Initiation Medication: ACTEMRA ACTPEN 162 MG/0.9ML SC SOAJ Insurance Company: Medicare Blue - Pharmacy Filling the Rx: [facility] - [place] [id number] [facility] Filling Pharmacy Phone: Filling Pharmacy Fax: Start Date: 04/09/2024 [id number] * Addendum Note - Freddy Crain MD - 04/08/2024 12:04 PM CDT Addended by: FREDDY CRAIN on: 05/08/2024 10:47 PM Modules accepted: Orders documented in this encounter Plan of Treatment Upcoming Encounters Date Type Department Care Team (Late st Contact Info) Description 07/08/2024 9:30 AM GENERAL FARM MANAGER Virtual Visit [facility] Rheumatology [facility] [address] [address] Freddy Crain MD [address] [place] [id number] Richie Rowell RPH [address] [place] [address] 07/31/2024 2:00 PM GENERAL FARM MANAGER Office Visit [address] [place] [id number] Christina Roe PA-C [address] [place] [address] documented as of this encounter Visit Diagnoses Diagnosis GCA (giant cell arteritis) (H)- Primary Giant cell arteritis documented in this encounter Care Teams Frame Maker Relationship Specialty Start Date End Date Feliciano Uribe MD [address] [address] PCP - General Family Medicine 06/01/23 Christina Roe PA-C [address] [place] [address] Physician Customer Care Coordinator Rheumatology 11/06/23 Christina Roe PA-C [address] [place] [address] Assigned Rheumatology Provider 11/09/23 Richie Rowell RPH [address] [place] [address] Pharmacist Pharmacist 04/08/24 Richie Rowell RPH [address] [place] [address] Assigned MTM Pharmacist 04/18/24 documented as of this encounter
--- OUTSIDE RECORDS SUMMARY | 2024-06-24 09:01 | XMS_ITS | Encounter Summary ---
Author Organization [facility] Address [address] [place] [address]. [place] [address] Care Team Providers Care Central Sterilization Technician Name Role Phone Feliciano Uribe MD Primary Care Provider [phone] Christina Roe PA-C Unavailable [phone] Christina Roe PA-C Unavailable [phone] Reason for Referral * Rehab Therapy Integrated Services (Routine: Next available opening) - Authorized Specialty Diagnoses / Procedures Referred By Amena prasad Referred To Contact Diagnoses Temporal arteritis (H) PMR (polymyalgia rheumatica) (H) [address] [address] Phone: tel: Referral ID Status Reason Start Date Expiration Date V isits Requested Visits Authorized [id number] Authorized 03/27/2024 08/26/2024 365 365 Question Answer Course of Action: Evaluation and Treatment Specialty Services: Per Associated Diagnosis Scheduling Instructions: [facility] will call you to coordinate your care as prescribed by your provider. If you don't hear from a dairy supplies sales representative within 2 business days, please call . Comments Please be aware that coverage of these services is subject to the terms and limitations of your health insurance plan. Call member services at your health plan with any benefit or coverage questions. [facility] will call you to coordinate your care as prescribed by your provider. If you don't hear from a dairy supplies sales representative within 2 business days, please call . Reason for Visit * Reason Comments Neck Pain * Auth/Cert Specialty Diagnoses / Procedures Referred By Amena t Referred To Contact EMERGENCY MEDICINE Diagnoses Temporal arteritis (H) PMR (polymyalgia rheumatica) (H24) Decreased vision of right eye Right temporal headache Neck pain [facility] Emergency Department [address] [place] [address] Phone: tel: Referral ID Status Reason Start Date Expiration Date Visits Re quested Visits Authorized [id number] 1 1 Encounter Details Date Type Department Care Team (Late st Contact Info) Description 03/22/2024 8:48 AM CDT - 03/26/2024 6:45 PM CDT Hospital Encounter [facility] 5A Oncology [address] [place], [place] [id number] Jona Sears MD [address] [place] [address] [phone] Marilee Deal MD [address] [place] [address] Luz Yuan MD [address] [place] [address] Urinary tract infection without hematuria, site [...] on file 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 Luz Yuan Discharge Service: Medicine Service, [facility] TEAM 3 Discharge [...] Follow-ups Needed After Discharge Follow-up Appointments Adult [facility] Follow-up and recommended labs and tests Follow up with primary care provider, Feliciano Uribe, within 7 days to evaluate medication change, to evaluate treatment change, to evaluate after surgery, for hospital follow- up, and regarding new diagnosis. The following labs/tests are recommended: BMP and CBC. Follow up with rheumatology at your scheduled appointment Appointments on [place] and/or [facility] (with [facility] or [facility] provider or service). Call [phone] if you haven't heard regarding these appointments [...] and hypotension since admission. Will gradually resume FAUCET POLISHER hypertensive medications. 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 - FAUCET POLISHER amlodipine 5mg daily and lisinopril 10mg BID - FAUCET POLISHER metoprolol tartrate 25mg BID - may also consider hydrochlorothiazide for treatment of steroid-induced HTN if necessary #Graves Disease - FAUCET POLISHER levothyroxine #Unilateral RLE swelling (resolved) On admission, [...] discussed with Dr. Kwabena Eller MD, PhD [place] [address] Medicine Service [facility] 5A ONCOLOGY [address] [facility] [address] Physical Exam Vital Signs: Temp: 98.1 ??F [...] Physician Feliciano Uribe Discharge Orders Physical Therapy C Python Developer Referral Reason for your hospital stay You [...] activity upon discharge: activity as tolerated Adult [facility] Follow-up and recommended labs and tests Follow up with primary care provider, Feliciano Uribe, within 7 days to evaluate medication change, to evaluate treatment change, to evaluate after surgery, for hospital follow- up, and regarding new diagnosis. The following labs/tests are recommended: BMP and CBC. Follow up with rheumatology at your scheduled appointment Appointments on [place] and/or [facility] (with [facility] or [facility] provider or service). Call [phone] if you haven't heard regarding these appointments [...] Head w/o Contrast Narrative EXAM MRA BRAIN (KWIGILLINGOK OF GREGORIO) W/O CONTRAST 03/22/2024 4:41 PM HISTORY: Headache; r/o Giant cell/temporal arteritis; Age > 50 years; No visual symptoms COMPARISON: None TECHNIQUE: Using a 3D dlnn-hk-kftacz image acquisition technique, MRA of the major [...] MD Echo Complete Value LVEF 60-65% Narrative [id number]^DIGNA^[facility]ARG[facility] [address] [place] [address] Name: GATO PARTIDA : 1945 Study Date: 03/23/2024 07:53 AM Age: 78 yrs Gender: Female Patient Location: [facility] Reason For Study: Syncope Ordering Physician: MARGARITA SAWYER Performed By: Priscila Mann RDCS BSA: 1.6 m2 Height: 60 in Weight: 149 lb BP: 94/48 mmHg Procedure Complete Portable Echo Adult. Contrast Optison. Echocardiogram with two- dimensional, color and spectral Doppler performed. Optison ([facility] #[id number]) given intravenously. Patient was given 5 ml [...] every 30 days, Historical D3-50 1.25 MG (87256 UT) capsule Take 1,250 mcg by mouth [...] Contraindicated due to hx of gastric bypass Cosigned by Luz Yuan MD at 03/27/2024 1:00 PM CDT Associated attestation - Luz Yuan MD - [...] this encounter Medications at Time of Discharge amLODIPine (NORVASC) 5 MG tablet Take 5 mg by mouth daily 4 amoxicillin (AMOXIL) 500 MG capsule TAKE 4 CAPSULES BY MOUTH 1 HOUR BEFORE DENTAL APPOINTMENT FOR 1 DOSE 3 atorvastatin (LIPITOR) 10 MG tablet Take 10 mg by mouth at bedtime Cyanocobalamin 1000 MCG/ML KIT 1,000 mcg every 30 days D3-50 1.25 MG (10228 UT) capsule Take 1,250 mcg by mouth once a week FLUoxetine (PROZAC) 40 MG capsule Take 40 mg by mouth daily levothyroxine (SYNTHROID/LEVOTH ROID) 150 MCG tablet Take 150 mcg by mouth daily lisinopril (ZESTRIL) 10 MG tablet Take 10 mg by mouth 2 times daily 4 methocarbamol (ROBAXIN) 500 MG tabletIndications :Neck pain Take 1 tablet (500 mg) by mouth 4 times daily as needed for muscle spasms 10 tablet 4 metoprolol tartrate (LOPRESSOR) 25 MG tablet Take 25 mg by mouth 2 times daily 4 nitroGLYcerin (NITROSTAT) 0.[address] 0.4 mg under the tongue 2 pantoprazole (PROTONIX) 40 MG EC tabletIndications :Temporal arteritis (H),PMR (polymyalgia rheumatica) (H) Take 1 tablet (40 mg) by mouth every morning (before breakfast) 90 tablet 4 predniSONE (DELTASONE) 10 MG tabletIndications :Temporal arteritis (H),PMR (polymyalgia rheumatica) (H) Take 6 tablets (60 mg) by mouth [...] 7 days. 181 tablet 4 05/20/20 24 sulfamethoxazole- trimethoprim (BACTRIM DS) 800-160 MG tabletIndications :Urinary Tract Infection,And PCP prophylaxis Take 1 tablet by mouth 2 times daily for 2 days 4 tablet 4 03/28/20 24 sulfamethoxazole- trimethoprim (BACTRIM DS) 800-160 MG tabletIndications :prophylaxis Take 1 tablet by mouth three times a week for 43 days 18 tablet 4 05/13/20 24 amLODIPine (NORVASC) 10 MG tablet Take 1 tablet by mouth daily at 2 pm 4 04/08/20 24 HYDROcodone-aceta minophen (NORCO) 5-325 MG tablet Take 1 tablet by mouth every 8 hours as needed for pain 3 04/08/20 24 predniSONE (DELTASONE) 1 MG tabletIndications :Temporal arteritis (H),PMR (polymyalgia rheumatica) (H) Take 9 [...] daily for 14 days. 462 tablet 4 06/05/20 24 predniSONE (DELTASONE) 5 MG tabletIndications :Temporal arteritis (H),PMR (polymyalgia rheumatica) (H) Take 2.5 tablets (12.5 mg) by mouth daily for 14 days, THEN 2 tablets (10 mg) daily for 7 days. 49 tablet 4 06/05/20 24 tocilizumab (ACTEMRA) 162 MG/0.9ML subcutaneous injectionIndicati ons:GCA (giant cell arteritis) (H) Inject 0.9 mLs (162 mg) subcutaneously once a week for 90 days Hold for signs of infection, and seek medical attention. 3.6 mL 2 4 04/08/20 24 documented as of this encounter Progress Notes [...] staff Breann Horn MD PGY-7 General Surgery Cosigned by Richie Hawk DO at 03/27/2024 11:46 AM CDT Associated attestation - Richie Hawk DO - 03/27/2024 11:46 AM CDT Physician Attestation I saw this patient with the resident and agree with the resident/fellow's findings and plan of careas documented in the note. Quiñonez findings: surgically stable for discharge Please see A&P for additional details of medical decision making. Richie Hawk, Date of Service (when I [...] Leon MD - 03/25/2024 11:37 AM CDT [facility] Progress Note - Medicine Service, [facility] TEAM 3 Date [...] and hypotension since admission. Will gradually resume FAUCET POLISHER hypertensive medications. 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 - FAUCET POLISHER amlodipine 5mg daily and lisinopril 10mg BID - holding metoprolol tartrate 25mg BID, consider restarting if patient continues to be hypertensive - may also consider hydrochlorothiazide for treatment of steroid-induced HTN if necessary #Graves Disease - FAUCET POLISHER levothyroxine #Unilateral RLE swelling (resolved) On admission, [...] Yuan . Mikhail Leon MD Medicine Service, [facility] TEAM [address] [place] [address] Securely message with [employer] (more info) Text page via [facility] Paging/Directory See signed in provider for [...] PARIETAL BRANCH: 0.29 mm MICHAEL DUENAS MD Cosigned by Luz Yuan MD at 03/26/2024 7:22 AM CDT Associated attestation - Luz Yuan MD - [...] Morrow PT - 03/25/2024 9:25 AM CDT 03/25/24 0925 Appointment Info Signing Clinician's Name / Credentials [...] Activity/Exercise Type swimming (Fusion aqua class at [facility]) Exercise Amount/Frequency 3-5 times/wk Equipment Currently Used [...] Evaluation Time PT Eval, Low Complexity Minutes (08545) 18 PT Discharge Planning PT Plan Ambulate [...] OT - 03/25/2024 9:22 AM CDT 03/24/24 6410 Appointment Info Signing Clinician's Name / Credentials [...] IADLs, pt does not drive. A from [employer] forth[facility] home. 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 Coordination Coordination Comments Per chart, pt reports coordination deficits with movement Bed Mobility Comment (Bed Mobility) Pt SBA with bed mobility Transfers Transfers sit-stand transfer;toilet transfer;shower transfer Sit-Stand Transfer Sit-Stand [place] (Transfers) contact guard Shower Transfer Type (Shower Transfer) lateral [place] Level (Shower Transfer) modified independence Assistive Device (Shower Transfer) grab bar, tub rail Shower Transfer Comments Per clinical judgement Toilet Transfer Type (Toilet Transfer) sit-stand;stand-sit [place] Level (Toilet Transfer) modified independence Assistive Device (Toilet Transfer) grab bars/safety frame Balance Balance Comments Per chart pt reports LOB primarily with activities that involve bending over Activities of Daily Living BADL Assessment/Intervention bathing;lower body dressing;grooming;toileting Bathing Assessment/Intervention [place] Level (Bathing) minimum assist (75% patient effort) Comment, (Bathing) Per clinical judgement Lower Body Dressing Assessment/Training Comment, (Lower Body Dressing) Per clinical judgement [place] Level (Lower Body Dressing) minimum assist (75% patient effort) Grooming Assessment/Training [place] Level (Grooming) minimum assist (75% patient effort) Comment, (Grooming) Per clinical judgement, pt reports on days that fluctuates symptoms, pt not able to get UE's over head Toileting Comment, (Toileting) Per clinical judgement [place] Level (Toileting) modified independence Clinical Impression Criteria [...] Evaluation Time OT Eval, Low Complexity Minutes (65062) 5 OT Goals Therapy Frequency (OT) 6 [...] Therapeutic Activity Therapeutic Activities Therapeutic Activity Minutes (11981) 25 Symptoms noted during/after treatment dizziness;fatigue Treatment [...] for 5 days until follow-up with her electrical maintenance technician on 03/20/24 when she was seen and [...] to follow closely while inpatient. Please contact gravel roofer toy consultant with any questions or concerns. We appreciate [...] Snyder MD - 03/24/2024 2:22 PM CDT [facility] Progress Note - Medicine Service, [place] TEAM [...] and hypotension since admission. Will gradually resume FAUCET POLISHER hypertensive medications. 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 - resume FAUCET POLISHER amlodipine 5mg daily and lisinopril 10mg BID - holding metoprolol tartrate 25mg BID, consider restarting if patient continues to be hypertensive - may also consider hydrochlorothiazide for treatment of steroid-induced HTN if necessary #Graves Disease - FAUCET POLISHER levothyroxine #Unilateral RLE swelling (resolved) On admission, [...] Deal . Verona Snyder MD Medicine Service, [facility] TEAM [address] [place] [address] Securely message with [employer] (more info) Text page via [facility] Paging/Directory See signed in provider for [...] previous visit (from the past 24 hour(s)). Cosigned by Marilee Deal MD at 03/24/2024 4:54 PM CDT Associated attestation - Marilee Deal MD - [...] for 5 days until follow-up with her electrical maintenance technician on 03/20/24 when she was seen and [...] to follow closely while inpatient. Please contact gravel roofer toy consultant with any questions or concerns. We appreciate your care of this patient. Lamont Canales MD, PGY2 Ophthalmology Resident [facility] HISTORY OF PRESENTING ILLNESS: Gato Partida is [...] R forearm, bx site in R thigh. [facility] Nurse Consult Ordered NO. Bed Algorithm can be found in PCS flow sheets (Support Surface Algorithm) and on IP [facility] NURSE RESOURCE TAB, was this used during this assessment? NO P: Continue to monitor patient???s Status and intervene as needed. Continue with plan of care. Notify MD with any concerns or changes in patient status. * Shanda Reid MD - 03/23/2024 7:44 PM CDT [facility] Neurology Consultation - Progress Note Patient [...] not hesitate to callwith questions/concerns (consult pager [phone]). Patient was seen and discussed with Dr. Cervantes. Shanda Reid MD PGY-4 Neurology Resident Cosigned by Alem Cervantes MD at 03/24/2024 12:49 AM CDT Associated attestation - Alem Cervantes MD - [...] Snyder MD - 03/23/2024 1:36 PM CDT [facility] Progress Note - Medicine Service, [facility] TEAM 3 Date [...] chest without evidence of GCA - restart FAUCET POLISHER lisinopril #Blurry vision #Head/neck pain #Possible giant [...] and hypertensive on 03/23. Will gradually resume FAUCET POLISHER hypertensive medications. 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 - resume FAUCET POLISHER amlodipine 5mg daily and lisinopril 10mg BID - holding metoprolol tartrate 25mg BID, consider restarting if patient continues to be hypertensive - may also consider hydrochlorothiazide for treatment of steroid-induced HTN if necessary #Graves Disease - FAUCET POLISHER levothyroxine #Unilateral RLE swelling (resolved) On admission, [...] Deal . Verona Snyder MD [facility] [address] [place] [address] Securely message with [employer] (more info) Text page via [employer] Paging/Directory See signed in provider for up [...] Head w/o Contrast Narrative EXAM MRA BRAIN (KWIGILLINGOK OF GREGORIO) W/O CONTRAST 03/22/2024 4:41 PM HISTORY: Headache; r/o Giant cell/temporal arteritis; Age > 50 years; No visual symptoms COMPARISON: None TECHNIQUE: Using a 3D ahpu-xy-fglukl image acquisition technique, MRA of the major [...] Echo Complete Result Value LVEF 60-65% Narrative [id number]^DIGNA^[facility]ARGARITA [facility] [address] [place] [address] Name: GATO PARTIDA : 1945 Study Date: 03/23/2024 07:53 AM Age: 78 yrs Gender: Female Patient Location: [facility] Reason For Study: Syncope Ordering Physician: MARGARITA SAWYER Performed By: Priscila Mann RDCS BSA: 1.6 m2 Height: 60 in Weight: 149 lb BP: 94/48 mmHg Procedure Complete Portable Echo Adult. Contrast Optison. Echocardiogram with two- dimensional, color and spectral Doppler performed. Optison ([facility] #[id number]) given intravenously. Patient was given 5 ml [...] agree with the findings. CORINNA BERG MD Cosigned by Marilee Deal MD at 03/23/2024 3:27 PM CDT Associated attestation - Marilee Deal MD - [...] for 5 days until follow-up with her electrical maintenance technician on 03/20/24 when she was seen and [...] to follow closely while inpatient. Please contact gravel roofer toy consultant with any questions or concerns. We appreciate your care of this patient. Lamont Canales MD, PGY2 Ophthalmology Resident [facility] HISTORY OF PRESENTING ILLNESS: Gato Partida is [...] Service (when I saw the patient): 03/22/24 [facility] History and Physical - Medicine Service, [place] TEAM 3 Date of Admission: 03/22/2024 Assessment [...] - DVT US ordered #HTN - hold FAUCET POLISHER amlodipine, metoprolol, and lisinopril #Graves Disease - FAUCET POLISHER levothyroxine Diet: regular diet now, NPO at [...] . Yobani Guzman Medical Student Medicine Service, [address] Securely message with [employer] info) Text page via [facility] Paging/Directory See signed in provider for [...] Informant Patient Reported? Taking? D3-50 1.25 MG (37561 UT) capsule Yes No Sig: Take 1,250 [...] patent major cervical vasculature without significant stenosis. Cosigned by Marilee Deal MD at 03/23/2024 3:28 PM CDT Associated attestation - Marilee Deal MD - [...] Galo MD - 03/24/2024 2:45 PM CDT [facility] Rheumatology IP Consult Consult for: GCA [...] Dr. Paras Rodríguez MD PGY-4 Rheumatology Fellow [phone] [text page] History of Present Illness Gato [...] or diarrhea. No results found for: HBCAB, [id number], HCABC, HCVAB, TBRES Immunization History Administered Date(s) [...] Resource Strain: Low Risk (10/10/2022) Received from [facility] Overall Financial Resource Strain (CARDIA) Difficulty of Paying Living Expenses: Not hard at all Food Insecurity: No Food Insecurity (10/10/2022) Received from [facility] Hunger Vital Sign Worried About Running Out of Food in the Last Year: Never true Ran Out of Food in the Last Year: Never true Transportation Needs: No Transportation Needs (10/10/2022) Received from [facility] PRAPARE - Transportation Lack of Transportation (Medical): No Lack of Transportation (Non-Medical): No Physical Activity: Insufficiently Active (10/10/2022) Received from [facility] Exercise Vital Sign Days of Exercise per Week: 2 days Minutes of Exercise per Session: 40 min Stress: No Stress Concern Present (10/10/2022) Received from [facility], [facility] [employer] [place] of Occupational Health - Occupational Stress Questionnaire Feeling of Stress : Only a little Social Connections: Socially Integrated (10/10/2022) Received from [facility], [facility] Social Connection and Isolation Panel [NHANES] Frequency of Communication with Friends and Family: Twice a week Frequency of Social Gatherings with Friends and Family: Twice a week Attends Mosque Services: More than 4 times per year Active Member of Clubs or Organizations: Yes Attends Club or Organization Meetings: 1 to 4 times per year Marital Status: Interpersonal Safety: Not At Risk (10/10/2022) Received from [facility] Humiliation, Afraid, Rape, and Kick questionnaire Fear of Current or Ex-Partner: No Emotionally Abused: No Physically Abused: No Sexually Abused: No Housing Stability: Low Risk (10/10/2022) Received from [facility], [facility] Housing Stability Vital Sign Unable to [...] found for: ANCA No results found for: A8TBKIM No results found for: K8EQGFF No results found for: ANTONIA No results found for: DNA Lab Results Component Value Date SSAIGG Negative 10/18/2023 SSBIGG Negative 10/18/2023 No results found for: CCPABG, CCPABY, RF8, CARIA, ANCA, SL6430, [id number], [id number], [id number] IMAGING: CTA Chest with Contrast Narrative: Exam: [...] the findings. CORINNA BERG MD Echo Complete [id number]^DIGNA^MARGARITA [facility] Echocardiography Laboratory [address] [place] [address] Name: GATO PARTIDA : 1945 Study Date: 03/23/2024 07:53 AM Age: 78 yrs Gender: Female Patient Location: [facility] Reason For Study: Syncope Ordering Physician: KAGALWALLA, MARGARITA Performed By: Priscila Mann RDCS BSA: 1.6 m2 Height: 60 in Weight: 149 lb BP: 94/48 mmHg Procedure Complete Portable Echo Adult. Contrast Optison. Echocardiogram with two- dimensional, color and spectral Doppler performed. Optison ([facility] #[id number]) given intravenously. Patient was given 5 ml [...] reviewed and discussed with the rheumatology staff Cosigned by Zhane Crain MD at 03/24/2024 3:54 PM CDT Associated attestation - Zhane Crain MD - [...] CDTAssociated Order(s): SURGERY GENERAL ADULT IP CONSULT [facility] Consult Note - General Surgery Service Date [...] Telles. Christo Alicea MD General Surgery Resident [facility] Text page via [facility] Paging/Directory Chief Complaint Neck Pain History [...] by mouth at bedtime D3-50 1.25 MG (57008 UT) capsule Take 1,250 mcg by mouth [...] No evidence of intracranial venous sinus thrombosis. Cosigned by Teresa Telles MD at 04/12/2024 3:13 PM CDT Associated attestation - Teresa Telles MD - 04/12/2024 3:13 PM CDT I discussed this patient with the resident. I agree with the assessment and plan in the note below.I was immediately available if needed. Teresa Telles MD development professional Pager [phone] * Lincoln Carolina MD - 03/22/2024 3:49 PM CDTAssociated Order(s): NEUROLOGY GENERAL ADULT IP CONSULT [facility] Neurology Consultation Patient Name: Gato Partida [...] Resource Strain: Low Risk (10/10/2022) Received from [facility] Overall Financial Resource Strain (CARDIA) Difficulty of Paying Living Expenses: Not hard at all Food Insecurity: No Food Insecurity (10/10/2022) Received from [facility] Hunger Vital Sign Worried About Running Out of Food in the Last Year: Never true Ran Out of Food in the Last Year: Never true Transportation Needs: No Transportation Needs (10/10/2022) Received from [facility] PRAPARE - Transportation Lack of Transportation (Medical): No Lack of Transportation (Non-Medical): No Physical Activity: Insufficiently Active (10/10/2022) Received from [facility] Exercise Vital Sign Days of Exercise per Week: 2 days Minutes of Exercise per Session: 40 min Stress: No Stress Concern Present (10/10/2022) Received from [facility] [place] of Occupational Health - Occupational Stress Questionnaire Feeling of Stress : Only a little Social Connections: Socially Integrated (10/10/2022) Received from [facility] Social Connection and Isolation Panel [NHANES] Frequency of Communication with Friends and Family: Twice a week Frequency of Social Gatherings with Friends and Family: Twice a week Attends Mosque Services: More than 4 times per year Active Member of Clubs or Organizations: Yes Attends Club or Organization Meetings: 1 to 4 times per year Marital Status: Interpersonal Safety: Not At Risk (10/10/2022) Received from [facility] Humiliation, Afraid, Rape, and Kick questionnaire Fear of Current or Ex-Partner: No Emotionally Abused: No Physically Abused: No Sexually Abused: No Housing Stability: Low Risk (10/10/2022) Received from [facility] Housing Stability Vital Sign Unable to [...] strength bilaterally in deltoids, biceps, triceps, hand grant writer, hip flexors, hip extensors, knee flexion, knee [...] Range Hold Specimen JIC Extra Green Top ([place] Heparin) Tube Collection Time: 03/22/24 8:45 AM [...] Rate 70 BPM Atrial Rate 70 BPM LA Interval 130 ms QRS Duration 84 ms QT 394 ms QTc 425 ms P Chatom 19 degrees R AXIS 33 degrees T Chatom 60 degrees Interpretation ECG Sinus rhythm Normal [...] Negative Ketones Urine Negative Negative mg/dL Specific Cougar Urine 1.004 1.003 - 1.035 Blood Urine [...] not hesitate to callwith questions/concerns (consult pager [phone]). Patient was seen and discussed with Dr. Cervantes. Lincoln Carolina MD Neurology Resident, PGY-2 Cosigned by Alem Cervantes MD at 03/23/2024 12:52 PM CDT Associated attestation - Alem Cervantes MD - [...] 2:26 PM CDTAssociated Order(s): RHEUMATOLOGY IP CONSULT [facility] Rheumatology IP Consult Consult for: [facility] [...] Dr. Paras Rodríguez MD PGY-4 Rheumatology Fellow [phone] [text page] History of Present Illness Gato [...] or diarrhea. No results found for: HBCAB, [id number], HCABC, HCVAB, TBRES Immunization History Administered Date(s) [...] Resource Strain: Low Risk (10/10/2022) Received from [facility] Overall Financial Resource Strain (CARDIA) Difficulty of Paying Living Expenses: Not hard at all Food Insecurity: No Food Insecurity (10/10/2022) Received from [facility] Hunger Vital Sign Worried About Running Out of Food in the Last Year: Never true Ran Out of Food in the Last Year: Never true Transportation Needs: No Transportation Needs (10/10/2022) Received from [facility] PRAPARE - Transportation Lack of Transportation (Medical): No Lack of Transportation (Non-Medical): No Physical Activity: Insufficiently Active (10/10/2022) Received from [facility] Exercise Vital Sign Days of Exercise per Week: 2 days Minutes of Exercise per Session: 40 min Stress: No Stress Concern Present (10/10/2022) Received from [facility] [place] of Occupational Health - Occupational Stress Questionnaire Feeling of Stress : Only a little Social Connections: Socially Integrated (10/10/2022) Received from [facility] Social Connection and Isolation Panel [NHANES] Frequency of Communication with Friends and Family: Twice a week Frequency of Social Gatherings with Friends and Family: Twice a week Attends Mosque Services: More than 4 times per year Active Member of Clubs or Organizations: Yes Attends Club or Organization Meetings: 1 to 4 times per year Marital Status: Interpersonal Safety: Not At Risk (10/10/2022) Received from [facility] Humiliation, Afraid, Rape, and Kick questionnaire Fear of Current or Ex-Partner: No Emotionally Abused: No Physically Abused: No Sexually Abused: No Housing Stability: Low Risk (10/10/2022) Received from [facility] Housing Stability Vital Sign Unable to [...] found for: ANCA No results found for: U3GLVWA No results found for: K1WQKHW No results found for: ANTONIA No results found for: DNA Lab Results Component Value Date SSAIGG Negative 10/18/2023 SSBIGG Negative 10/18/2023 No results found for: CCPABG, CCPABY, RF8, CARIA, ANCA, [id number], [id number], [id number], [id number] IMAGING: CTV Head Neck w Contrast RESIDENT [...] reviewed and discussed with the rheumatology staff Cosigned by Zhane Crain MD at 03/23/2024 12:25 AM CDT Associated attestation - Zhane Crain MD - [...] for 5 days until follow-up with her electrical maintenance technician on 03/20/24 when she was seen and [...] Long- term management will fall to her electrical maintenance technician and patient would likely benefit from Actemra if she is a candidate and her insurance will approve. Filipe Dickson MD Icu Nurse, Neuro-Ophthalmology and Adult Strabismus Surgery Department of Ophthalmology and Visual Neurosciences [facility] Patient: Gato Partida ASSESSMENT/PLAN: Gato Partida is [...] Ok with MRA head and neck given MATERIALS RESEARCH ENGINEER symptoms with headache and syncope, though defer [...] to follow closely while inpatient. Please contact gravel roofer toy consultant with any questions or concerns. We appreciate your care of this patient. Luis Alberto Anderson MD, PGY3 Ophthalmology Resident [facility] HISTORY OF PRESENTING ILLNESS: Gato Partida is [...] arteritis. Triage Assessment (Adult) Row Name 03/22/24 0830 Triage Assessment Airway WDL WDL Respiratory WDL Respiratory WDL WDL Skin Circulation/Temperature WDL Skin Circulation/Temperature WDL WDL Cardiac WDL Cardiac WDL WDL Peripheral/Neurovascular WDL Peripheral Neurovascular WDL WDL Cognitive/Neuro/Behavioral WDL Cognitive/Neuro/Behavioral WDL WDL * Jona Sears MD - 03/22/2024 8:27 AM CDT ED Provider Note [facility] History Chief Complaint Patient presents with Neck [...] note, patient presented to the ED in [place] on 03/15 with stiffness on the right [...] head. After taking prednisone her symptoms improved. Acid Bleacher recommended that she present to the emergency [...] (LIPITOR) 10 MG tablet D3-50 1.25 MG (45882 UT) capsule FLUoxetine (PROZAC) 40 MG capsule [...] Course, Procedures, & Data Records are in epic. Patient seen by rheumatology on the Dr. [...] pain Rhythm: Normal sinus Rate: 70 bpm Chatom: Normal Ectopy: None Conduction: Normal ST Segments/ [...] Contrast Status: None Narrative EXAM MRA BRAIN ([place] OF [place]) W/O CONTRAST 03/22/2024 4:41 PM HISTORY: Headache; r/o Giant cell/temporal arteritis; Age > 50 years; No visual symptoms COMPARISON: None TECHNIQUE: Using a 3D [id number]-[id number] image acquisition technique, MRA of the major [...] agree with the findings. TAMERA ANTHONY MD [place] [facility] Status: None Narrative The following orders were created for panel order [place] [facility]. Procedure Abnormality Status --------- ------ Extra Blue Top Tube[[id number]] Final result Extra Red Top Tube[[id number]] Final result Extra Green Top ([place]...[[id number]] Final result Extra Purple Top Tube[[id number]] Final result Please view results for these tests on the individual orders. Extra Blue Top Tube Status: None Result Value Ref Range Hold Specimen JIC Extra Red Top Tube Status: None Result Value Ref Range Hold Specimen JIC Extra Green Top ([place] Heparin) Tube Status: None Result Value Ref [...] Negative Ketones Urine Negative Negative mg/dL Specific Cougar Urine 1.004 1.003 - 1.035 Blood Urine [...] Rate 70 BPM Atrial Rate 70 BPM LA Interval 130 ms QRS Duration 84 ms QT 394 ms QTc 425 ms P Chatom 19 degrees R AXIS 33 degrees T Chatom 60 degrees Interpretation ECG Sinus rhythm Normal ECG CBC with platelets differential Status: Abnormal Narrative The following orders were created for panel order CBC with platelets differential. Procedure Abnormality Status --------- ------ CBC with platelets and d...[[id number]] Abnormal Final result Please view results for [...] 3 mL (3 mLs Intracatheter $Given 03/22/24 7811) sodium chloride (PF) 0.9% PF flush 3 [...] 40 mg (40 mg Oral $Given 03/22/24 184) levothyroxine (SYNTHROID/LEVOTHROID) tablet 150 mcg (150 mcg [...] Bilirubin Urine Negative Ketones Urine Negative Specific Cougar Urine 1.004 Blood Urine Negative pH Urine [...] temporal headache Neck pain Jona Sears MD [facility] EMERGENCY DEPARTMENT 03/22/2024 This note was created at least in part by the use of [employer] voice dictation system. Inadvertent typographical errors may still exist. Jona Sears MD. Patient evaluated in the emergency department during the COVID-19 pandemic period. Careful attention to patients safety was addressed throughout the evaluation. Evaluation and treatment management was initiated with disposition made efficiently and appropriate as possible to minimize any risk of potential exposure to patient during this evaluation. Jona Sears MD 03/22/24 214 documented in this encounter Miscellaneous Notes * Plan of Care - Ankita Gill OT - 03/26/2024 6:45 PM CDT Occupational Therapy Discharge Summary Reason for therapy discharge: Discharged to home with outpatient therapy. Progress towards therapy goal(s). See goals on Care Plan in [facility] electronic health record for goal details. [...] heart, but I have A.Fib. Notified Mikhail Leon provider about duration of episode. Provider visited patient at bedside & noted regular rhythm upon assessment. No other symptoms noted. Prior to discharge patient reported heartburn or angina. Patient has reported history of angina & takes nitroglycerin. Patient given tums & reported relief. Patient reported another episodeof similar symptoms & notified toy consultant primary team. Resident visited patient at bedside [...] Readiness for Transition of Care 03/26/20241720 by Ann Aquino RN Outcome: Met [...] Surgical incision on left and right temporal, FURNITURE ASSEMBLER AND INSTALLER/CDI. Hematoma on R temporal. Labs/imaging: Reviewed, see chart. Plan: Possible discharge today. Continue to monitor and follow POC * Plan of Care - Latonya Osei RN - 03/26/2024 4:51 AM CDT Goal Outcome Evaluation: Pt A&O, VSS on RA, afebrile. Denies nausea, vomiting, or SOB. Hematoma on right side of head covered by pressure dressing. Incision FURNITURE ASSEMBLER AND INSTALLER on left side of head. Pain managed with tylenol. Up with SBA. * Brief Op Note - Kristel Simeon MD - 03/25/2024 5:15 PM CDT [facility] Brief Operative Note Pre-operative diagnosis: Sudden visual [...] Temporal, Left SURGICAL PATHOLOGY EXAM Richie Hawk, 03/25/2024 4:29 PM 2 : Right Temporal [...] - 03/25/2024 3:54 PM CDT Operative Note [facility] Pre-operative diagnosis: sudden visual loss of the [...] case Breann Horn MD PGY-7 General Surgery Cosigned by Richie Hawk DO at 03/26/2024 2:02 PM CDT Associated attestation - Richie Hawk DO - 03/26/2024 2:02 PM CDT Physician Attestation I was present for the entire procedure between opening and closing. Richie Hawk DO Date of Service (when I saw the patient): 03/25/24 * Plan of Care - Shoshana Jaimes RN - 03/25/2024 2:54 PM CDT Goal Outcome Evaluation: 699 - 1500 BP (!) 163/69 (BP Location: [...] 03/25/2024 3:46 AM CDT Goal Outcome Evaluation: 8559-1525 Pt A&O, VSS on RA, afebrile. Denies nausea, vomiting, or SOB. Slight headache and no other pain. Numbness on right side, up with Ax1. Denied any pain when urinating. NPO at midnight. * Plan of Care - Diana Beltran - 03/24/2024 10:32 PM CDT Assumed care from: [[id number]] Vitals: BP (!) 145/63 Pulse 73 Temp [...] Outcome Evaluation: Continue with plan of care Cosigned by Nathaniel Rosenberg RN at 03/24/2024 10:58 PM CDT Associated attestation - Nathaniel Rosenberg RN - [...] drink until 11am today. Will continue with careplan and notify MD if any other concerns. * Plan of Care - Liliam Garduno RN - 03/24/2024 1:58 AM CDT 7731-9785 BP (!) 154/74 (BP Location: Left arm) [...] Care Reviewed With: patient A/Ox4, visited by gravel roofer who conducted bedside assessment, had echocardiogram done [...] eating well. Visited by family, continued on director traffic and planning. BP (!) 148/54 (BP Location: Left arm, [...] ??C) (Oral) Resp 20 SpO2 98% Time: 0474-4552 Patient is alert and oriented, SBA, C/o [...] Pertinent Information: Pt reported taking medications on [employer] medication list as directed, stated that she placed on Prednisone 20 mg tabs on March 15 for 5 days, which she took till Sunday, said she went to see her doctor and her doctor sent her here. Changes made to [employer] medication list: Added: Cyanocobalamin 1000 mcg/ml. Deleted: Prednisone 5 mg tabs. Changed: None Allergies reviewed with patient and updates made in EHR: yes Medication History Completed By: Elidia Beltran 03/23/2024 6:50 AM [employer] Med List Medication Sig Last Dose amLODIPine (NORVASC) 10 MG tablet Take 1 tablet by mouth daily at 2 pm 03/22/2024 at am amoxicillin (AMOXIL) 500 MG capsule TAKE 4 CAPSULES BY MOUTH 1 HOUR BEFORE DENTAL APPOINTMENT FOR 1DOSE at procedure only atorvastatin (LIPITOR) 10 MG tablet Take 10 mg by mouth at bedtime 03/21/2024 at hs D3-50 1.25 MG (83185 UT) capsule Take 1,250 mcg by mouth [...] st Contact Info) Description 07/08/2024 9:30 AM SCIENCE TEACHER Virtual Visit [facility] Rheumatology [facility] [address] [facility] [address] [place] [phone] Zhane Crain MD [address] [place] [address] [facility] [address] [place] [address] 07/31/2024 2:00 PM SCIENCE TEACHER Office Visit [facility] [address] [place] [phone] Christina Roe PA-C [address] [place] [address] Scheduled Referrals Name Type Priority Associated Diagnoses Orde r Schedule Physical Therapy C Python Developer Referral Referral Routine: Next available opening Temporal arteritis (H) PMR (polymyalgia rheumatica) (H) Expected: 03/26/2024 (Approximate), Expires: 03/26/2025 documented as [...] STAT 03/22/2024 4:42 PM CDT MRA BRAIN (KWIGILLINGOK OF [place]) W/O CONTRAST STAT 03/22/2024 4:41 [...] <3.00 <5.00 mg/L 03/26/20 9:04 AM CDT [facility] Blood STRUCTURE OF LEFT HAND / Unknown Venipuncture / Unknown 03/26/2024 6:14 AM CDT 03/26/2024 6:23 AM CDT Kristel Simeon MD LAB - BLOOD ORDERABLES Final Result [facility] [place] [facility] [address] [facility], [address] [place] [phone], [facility] * Erythrocyte sedimentation rate auto (03/26/2024 6:14 AM CDT) Erythrocyte Sedimentation Rate 6 0 - 30 mm/hr 03/26/2024 7:08 AM CDT [facility] Blood STRUCTURE OF LEFT HAND / Unknown Venipuncture / Unknown 03/26/2024 6:14 AM CDT 03/26/2024 6:23 AM CDT Kristel Simeon MD LAB - BLOOD ORDERABLES Final Result [facility] [place] [facility] [address] [facility], [address] [place] [address] * (ABNORMAL) Basic metabolic panel (03/26/2024 6:14 AM CDT) Pathologist [facility] Sodium 138 135 - 145 mmol/L 03/26/2024 [...] CDT Kristel Simeon MD LAB - BLOOD ORDERABLES Final Result [facility] [place] [facility] [address] [facility], [address] [place] [address] * (ABNORMAL) CBC with platelets (03/26/2024 6:14 [...] CDT 03/26/2024 6:23 AM CDT us Kristel Simeon MD LAB - BLOOD ORDERABLES Final Result [facility] Lab [address] [facility] [address], [address] [place] [address] * Surgical Pathology Exam (03/25/2024 4:29 PM CDT) Case Report Surgical Pathology Report ? Case: [id number] ? Authorizing Provider: ??Richie Domingeuz ? Collected: ? 03/25/2024 04:29 PM ? Nikos, DO ? Ordering Location: ? [facility] MAIN OR ? Received: ?03/25/2024 05:08 PM ? Pathologist: ? Mayra Galan MD ? Specimens: ?? A) - Artery, Temporal, Left, Left Temporal Artery Biopsy ? B) - Artery, Temporal, Right, Right Temporal Artery Biopsy ? 03/26/2024 9:50 AM [facility] Final Diagnosis A. Temporal artery, left, biopsy: No evidence of giant cell arteritis. Mild medial calcific sclerosis. B. Temporal artery, right, biopsy: No evidence of giant cell arteritis. 03/26/2024 9:50 AM [facility] Clinical Information The patient is a 78 year old female with a history of polymyalgia rheumatica and acute ischemic optic neuropathy right eye. She undergoes bilateral temporal artery biopsy to evaluate for giant cell arteritis. 03/26/2024 9:50 AM [facility] Gross Description A(1). Artery, [...] for sectioning at histology. 03/26/2024 9:50 AM [facility] Microscopic Description A. The tissue consists [...] identified within the vessel. 03/26/2024 9:50 AM [facility] Performing Labs The technical component of this testing was completed at [facility]. Stain controls for [...] PM CDT 03/25/2024 5:08 PM CDT Richie LUNDBERG - SUSIE AP Final Result [facility] Specialty Lab [address] [facility], [address] [phone] [place] [facility] [address] [facility], [address] [phone] * (ABNORMAL) CBC with platelets and differential [...] AM CDT 03/25/2024 11:44 AM CDT us Corinna Eller MD LAB - BLOOD ORDER [place] Final Result [facility] [place] [facility] [address] [facility], [address] [phone] * CRP inflammation (03/25/2024 5:54 AM CDT) [facility] CRP Inflammation <3.00 <5.00 mg/L 03/25/20 6:47 AM CDT [facility] Blood STRUCTURE OF LEFT UPPER LIMB / Unknown Venipuncture / Unknown 03/25/2024 5:54 AM CDT 03/25/2024 6:14 AM CDT us Kristel Simeon MD LAB - BLOOD ORDERABLES Final Result [facility] Lab [address] [facility], [address] [phone] * Erythrocyte sedimentation rate auto (03/25/2024 5:54 AM CDT) [facility] Erythrocyte Sedimentation Rate 8 0 - 30 mm/hr 03/25/2024 7:01 AM CDT [facility] Blood STRUCTURE OF LEFT UPPER LIMB / Unknown Venipuncture / Unknown 03/25/2024 5:54 AM CDT 03/25/2024 6:14 AM CDT us Kristel Simeon MD LAB - BLOOD ORDERABLES Final Result LABORATORY [facility] [place] [facility] [address] [facility], [address] [phone] * (ABNORMAL) Basic metabolic panel (03/25/2024 5:54 AM CDT) Pathologist [facility] Sodium 141 135 - 145 mmol/L 03/25/2024 [...] 5:54 AM CDT 03/25/2024 6:14 AM CDT us Verona Snyder MD LAB - BLOOD ORDERABLES Final Result [facility] [place] [facility] [address] [facility], [address] [place] [address], [facility] * (ABNORMAL) CBC with platelets (03/24/2024 5:30 [...] 5:30 PM CDT 03/24/2024 5:36 PM CDT us Verona Snyder MD LAB - BLOOD ORDERABLES Final Result [facility] [place] [facility] [address] [facility], [address] [phone] * US Temporal Arteries Duplex (03/24/2024 [...] PARIETAL BRANCH: 0.29 mm MICHAEL DUENAS MD us Kristel Simeon MD [facility] US ORDERABLES Final Resul t * CRP inflammation (03/24/2024 5:09 AM CDT) Pathologist [facility] CRP Inflammation <3.00 <5.00 mg/L 03/24/20 5:48 AM CDT [facility] Blood STRUCTURE OF LEFT UPPER LIMB / Unknown Venipuncture / Unknown 03/24/2024 5:09 AM CDT 03/24/2024 5:15 AM CDT us Kristel Simeon MD LAB - BLOOD ORDERABLES Final Result Performing Organization Address City/[facility]/ZIP Co de Phone Number [facility] [place] [facility] [address] [facility], [address] * Erythrocyte sedimentation rate auto (03/24/2024 5:09 AM CDT) [facility] Erythrocyte Sedimentation Rate 6 0 - 30 mm/hr 03/24/2024 6:23 AM CDT [facility] Blood STRUCTURE OF LEFT UPPER LIMB / Unknown Venipuncture / Unknown 03/24/2024 5:09 AM CDT 03/24/2024 5:15 AM CDT Kristel Simeon MD LAB - BLOOD ORDERABLES Final Result [facility] [place] [facility] [address] [facility], [address] * (ABNORMAL) Basic metabolic panel (03/24/2024 5:09 AM CDT) Pathologist [facility] Sodium 142 135 - 145 mmol/L 03/24/2024 [...] 5:09 AM CDT 03/24/2024 5:15 AM CDT us Margarita Sawyer MD LAB - BLOOD ORDERABLES Final Result [facility] [place] [facility] [address] [facility], [address] [place] [address], [facility] * (ABNORMAL) CBC with platelets (03/24/2024 [...] 5:09 AM CDT 03/24/2024 5:15 AM CDT us Margarita Sawyer MD LAB - BLOOD ORDERABLES Final Result [facility] [place] [facility] [address] [facility], [address] [place] [phone] * Interleukin 6 Blood (03/23/2024 11:04 AM CDT) Interleukin 6 Blood <0.70 <3.01 pg/mL [facility] 03/24/2024 2:03 PM CDT [facility] Blood STRUCTURE OF LEFT UPPER LIMB / Unknown Venipuncture / Unknown 03/23/2024 11:04 AM CDT 03/23/2024 11:14 AM CDT Narrative [facility] - 03/24/2024 2:03 PM [...] patient management.

Assayed at [facility], [address] [place] [address] Margarita Sawyer MD LAB - BLOOD ORDERABLES Final Result [facility] [address] [place] [address] * CTA Chest with Contrast (03/23/2024 [...] MD Margarita Sawyer MD IMG CT ORDERABLES Final Resul t * ECHO COMPLETE WITH CONTRAST (03/23/2024 8:14 AM CDT) LVEF 60-65% CARDIOLOGY RESULTS Anatomical Region Laterality Modality Echocardiography 03/23/2024 7:53 AM CDT Narrative 03/23/2024 10:36 AM CDT [id number]^DIGNA^MARGARITA [facility] [address] [place] [phone] Name: GATO PARTIDA : 1945 Study Date: 03/23/2024 07:53 AM Age: 78 yrs Gender: Female Patient Location: [facility] Reason For Study: Syncope Ordering Physician: MARGARITA SAWYER Performed By: Priscila Mann RDCS BSA: 1.6 m2 Height: 60 in Weight: 149 lb BP: 94/48 mmHg Procedure Complete Portable Echo Adult. Contrast Optison. Echocardiogram with two- dimensional, color and spectral Doppler performed. Optison ([facility] #[id number]) given intravenously. Patient was given 5 ml [...] Procedure Note Malaika Dobbins MD - 03/23/2024 [id number]^DIGNA^MARGARITA [facility] [address] [place] [id number] Name: GATO PARTIDA : 1945 Study Date: 03/23/2024 07:53 AM Age: 78 yrs Gender: Female Patient [facility] CENTER Reason For Study: Syncope Ordering Physician: MARGARITA SAWYER Performed By: Priscila Mann RDCS BSA: 1.6 m2 Height: 60 in Weight: 149 lb BP: 94/48 mmHg Procedure Complete Portable Echo Adult. Contrast Optison. Echocardiogram with two- dimensional, color and spectral Doppler performed. Optison ([facility]#[id number]) given intravenously. Patient was given 5 ml [...] approved by: Angela Hernandez 03/23/2024 10:36 AM us Margarita Sawyer MD CV ECHO ORDERABLES Edited Res ult - Final * CRP inflammation (03/23/2024 6:28 AM CDT) CRP Inflammation <3.00 <5.00 mg/L 03/23/20 8:07 AM CDT [facility] Blood STRUCTURE OF RIGHT UPPER LIMB / Unknown Venipuncture / Unknown 03/23/2024 6:28 AM CDT 03/23/2024 7:35 AM CDT Kristel Simeon MD LAB - BLOOD ORDERABLES Final Result [facility] [place] [facility] [address] [facility], [address] * Erythrocyte sedimentation rate auto (03/23/2024 6:28 AM CDT) Erythrocyte Sedimentation Rate 10 0 - 30 mm/hr 03/23/2024 8:10 AM CDT [facility] Blood STRUCTURE OF RIGHT UPPER LIMB / Unknown Venipuncture / Unknown 03/23/2024 6:28 AM CDT 03/23/2024 7:21 AM CDT Kristel Simeon MD LAB - BLOOD ORDERABLES Final Result [facility] [place] [facility] [address] [facility], Room [address] * CBC with platelets (03/23/2024 6:28 [...] 6:28 AM CDT 03/23/2024 7:23 AM CDT us Margarita Sawyer MD LAB - BLOOD ORDERABLES Final Result [facility] [place] [facility] [address] [facility], Room [address] [place], [place] [phone] * (ABNORMAL) Basic metabolic panel (03/23/2024 6:28 [...] 8:14 AM CDT [facility] Comment:eGFR calculated us2020 CKD-EPI equation. Calcium 8.7(L) 8.8 - 10.4 [...] 6:28 AM CDT 03/23/2024 7:35 AM CDT us Margarita Sawyer MD LAB - BLOOD ORDERABLES Final Result [facility] Core Lab [address] [facility], [address] [phone] * CTV Head Neck w Contrast (03/22/2024 [...] MD Margarita Sawyer MD IMG CT ORDERABLES Final Resul t * US Lower Extremity Venous Duplex Right [...] agree with the findings. TAMERA ANTHONY MD us Margarita Sawyer MD IMG US ORDERABLES Final Resul t * MRA Angiogram Neck w/o & w [...] findings. XI BACON MD Jona Sears MD IM MRI ORDERABLES Final Re sult * MRA Angiogram Head w/o Contrast (03/22/2024 [...] 03/22/2024 8:38 PM CDT EXAM MRA BRAIN ([place]) W/O CONTRAST 03/22/2024 4:41 PM HISTORY: Headache; r/o Giant cell/temporal arteritis; Age > 50 years; No visual symptoms COMPARISON: ??None TECHNIQUE: Using a 3D dwho-zv-uyeoad image acquisition technique, MRA of the major [...] Bacon MD - 03/22/2024 EXAM MRA BRAIN ([place]) W/O CONTRAST 03/22/2024 4:41 PM HISTORY: Headache; r/o Giant cell/temporal arteritis; Age > 50 years; No visual symptoms COMPARISON: None TECHNIQUE: Using a 3D crvv-cz-coqlny image acquisition technique, MRA of the major [...] MD Jona Sears MD IMG MRI ORDERABLES Final Re sult * MR Brain and Orbits w/o & [...] mastoid air cells. Normal orbits. Procedure Note iX Bacon MD - 03/22/2024 MR BRAIN AND [...] findings. XI BACON MD Jona Sears MD [facility] MRI ORDERABLES Final Re sult * (ABNORMAL) Urine Culture (03/22/2024 9:44 AM CDT) Culture 10,000-50,000 CFU/mL Escherichia coli(A) LICHA 03/23/2024 1:05 PM CDT [facility] Comment:This organism is con sidered part of Normal margarita Culture 10,000-50,000 CFU/mL Mixture of urogenital margarita 03/23/2024 1:05 PM CDT [facility] Urine MID-STREAM URINE SPECIMEN / Unknown Non-blood Collection / Unknown 03/22/2024 9:44 AM CDT 03/22/2024 10:28 AM CDT us Jona Sears MD LAB - MICRO GENERAL ORDERAB LES Final Result [facility] Inf. Diseases Diag. Lab 500 [facility], [address] [place] [address] * (ABNORMAL) UA with Microscopic reflex to [...] 03/22/2024 10:28 AM CDT [facility] Specific [place]oug[place] Urine 1.004 1.003 - 1.035 03/22/2024 10:28 [...] criteria Jona Sears MD LAB - URINE ORDERABLES Daylin l Result [facility] [place] [facility] [address] [facility], [address] * Lactic Acid Whole Blood with 1X Repeat in 2 HR when >2 (03/22/2024 9:27 AM CDT) Lactic Acid, Initial 1.4 0.7 - 2.0 mmol/L 03/22/2024 9:42 AM CDT [facility] Blood BLOOD SPECIMEN / Unknown Venipuncture / Unknown 03/22/2024 9:27 AM CDT 03/22/2024 9:40 AM CDT Jona Sears MD LAB - BLOOD ORDERABLES Daylin l Result [facility] [place] [facility] [address] [facility], [address] [id number] * Erythrocyte sedimentation rate auto (03/22/2024 9:27 AM CDT) Erythrocyte Sedimentation Rate 4 0 - 30 mm/hr 03/22/2024 10:11 AM CDT [facility] Blood BLOOD SPECIMEN / Unknown Venipuncture / Unknown 03/22/2024 9:27 AM CDT 03/22/2024 9:41 AM CDT Jona Sears MD LAB - BLOOD ORDERABLES Daylin l Result [facility] [place] [facility], Room [address] [phone] * EKG 12-lead, tracing only (03/22/2024 9:16 AM CDT) Systolic Blood Pressure mmHg RADIOLOGY RESULTS Diastolic Blood Pressure mmHg RADIOLOGY RESULTS Ventricular Rate 70 BPM RAD IOLOGY RESULTS Atrial Rate 70 BPM RADIOLOG Y RESULTS LA Interval 130 ms RADIOLOG Y RESULTS QRS Duration 84 ms RADIOLO GY RESULTS QT 394 ms RADIOLOGY RESULTS QTc 425 ms RADIOLOGY RESULTS P [place] 19 degrees RADIOLOGY RESULTS R AXIS 33 degrees RADIOLOGY RESULTS T [place] 60 degrees RADIOLOGY RESULTS Interpretation ECG Sinus rhythm Normal ECG Unconfirmed report - interpretation of this ECG is computer generated - see medical record for final interpretation Confirmed by - EMERGENCY ROOM, PHYSICIAN ([id number]), editorial project manager DANIA SIMEON ([id number]) on 03/24/2024 6:54:51 AM RADIOLOGY RESULTS 03/22/2024 9:16 AM CDT 03/24/2024 6:54 AM CDT Jona Sears MD ECG ORDERABLES Edited Resu lt - Final RADIOLOGY RESULTS * (ABNORMAL) CBC with platelets [...] 8:45 AM CDT 03/22/2024 9:24 AM CDT us Jona Sears MD LAB - BLOOD ORDERABLES Daylin l Result LABORATORY [facility] Core Lab [address] [facility], [address] * TSH (03/22/2024 8:45 AM CDT) TSH 2.40 0.30 - 4.20 uIU/mL 03/22/2024 10:19 AM CDT [facility] Blood BLOOD SPECIMEN / Unknown Venipuncture / Unknown 03/22/2024 8:45 AM CDT 03/22/2024 9:23 AM CDT us Jona Sears MD LAB - BLOOD ORDERABLES Daylin l Result Performing Organization Address [facility] de Phone Number LABORATORY [facility] Core Lab [address] [facility], [address] * Nt probnp inpatient (BNP) (03/22/2024 8:45 AM CDT) Pathologist [facility] N terminal Pro BNP Inpatient [phone] [...] LAB - BLOOD ORDERABLES Daylin l Result LABORATORY [facility] Core Lab [address] [facility], [address] [phone] * Troponin T, High Sensitivity (03/22/2024 8:45 [...] LAB - BLOOD ORDERABLES Daylin l Result LABORATORY [facility] Core Lab [address] [facility], [address] [phone] * Magnesium (03/22/2024 8:45 AM CDT) Magnesium 1.9 1.7 - 2.3 mg/dL 03/22/2024 10:19 AM CDT [facility] Blood BLOOD SPECIMEN / Unknown Venipuncture / Unknown 03/22/2024 8:45 AM CDT 03/22/2024 9:23 AM CDT us Jona Sears MD LAB - BLOOD ORDERABLES Daylin corrales Result [facility] [place] [facility] [address] [facility], Room [address] [place] [address], [facility] * (ABNORMAL) Comprehensive metabolic panel (03/22/2024 8:45 [...] LAB - BLOOD ORDERABLES Daylin l Result U LABORATORY [facility] Core Lab [address] [facility], Room [address] * CRP inflammation (03/22/2024 8:45 AM CDT) CRP Inflammation <3.00 <5.00 mg/L 03/22/20 10:19 AM CDT [facility] Blood BLOOD SPECIMEN / Unknown Venipuncture / Unknown 03/22/2024 8:45 AM CDT 03/22/2024 9:23 AM CDT Jona Sears MD LAB - BLOOD ORDERABLES Daylin l Result U LABORATORY [facility] Core Lab [address] [facility], [address] * INR (03/22/2024 8:45 AM CDT) INR 0.91 0.85 - 1.15 03/22/2024 9:50 AM CDT [facility] Blood BLOOD SPECIMEN / Unknown Venipuncture / Unknown 03/22/2024 8:45 AM CDT 03/22/2024 9:24 AM CDT Jona Sears MD LAB - BLOOD ORDERABLES Daylin l Result LABORATORY [facility] Core Lab [address] [facility], [address] * Partial thromboplastin time (03/22/2024 8:45 AM CDT) aPTT 33 22 - 38 Seconds 03/22/2024 9:50 AM CDT LABORATORY Blood BLOOD SPECIMEN / Unknown Venipuncture / Unknown 03/22/2024 8:45 AM CDT 03/22/2024 9:24 AM CDT Jona Sears MD LAB - BLOOD ORDERABLES Daylin l Result Performing Organization Address City/[facility]/ZIP Co de Phone Number LABORATORY [facility] Core Lab [address] [facility], [address] * Extra Purple Top Tube (03/22/2024 8:45 AM CDT) Hold Specimen [facility] 03/22/2024 10:32 AM CDT LABORATORY Blood BLOOD SPECIMEN / Unknown Venipuncture / Unknown 03/22/2024 8:45 AM CDT 03/22/2024 9:24 AM CDT Ramya Berry DO LAB - BLOOD ORDERABLES Final Res ult LABORATORY [facility] [place] [facility] [address] [facility], Room [address] * Extra Green Top ([place] Heparin) Tube (03/22/2024 8:45 AM CDT) Hold Specimen [facility] 03/22/2024 10:32 AM CDT LABORATORY Blood BLOOD SPECIMEN / Unknown Venipuncture / Unknown 03/22/2024 8:45 AM CDT 03/22/2024 9:23 AM CDT us Ramya Berry LAB - BLOOD ORDERABLES Final Res ult LABORATORY [facility] [place] [facility] Lab [address] [facility], [address] [phone] * Extra Red Top Tube (03/22/2024 8:45 AM CDT) Hold Specimen [facility] 03/22/2024 10:46 AM CDT LABORATORY Blood BLOOD SPECIMEN / Unknown Venipuncture / Unknown 03/22/2024 8:45 AM CDT 03/22/2024 9:34 AM CDT us Bui Jamal CROSS LAB - BLOOD ORDERABLES Final Res ult LABORATORY [facility] [place] [facility] Lab [address] [facility], [address] [phone] * Extra Blue Top Tube (03/22/2024 8:45 AM CDT) Hold Specimen [facility] 03/22/2024 10:32 AM CDT LABORATORY Blood BLOOD SPECIMEN / Unknown Venipuncture / Unknown 03/22/2024 8:45 AM CDT 03/22/2024 9:24 AM CDT us Ramya Berry LAB - BLOOD ORDERABLES Final Res ult LABORATORY [facility] [place] [facility] [address] [facility], [address] [phone] documented in this encounter Visit Diagnoses Diagnosis Urinary tract infection without hematuria, site unspecified- Primary Temporal arteritis (H) Giant cell arteritis PMR (polymyalgia rheumatica) (H) Polymyalgia rheumatica Decreased vision of right eye Right temporal headache Headache Neck pain Cervicalgia Temporal arteritis (H) Giant cell arteritis Neck pain Cervicalgia PMR (polymyalgia rheumatica) (H) Polymyalgia rheumatica Right temporal headache Headache Decreased [...] IV fluid during administration., Indications: Urinary Tract InfectionIndications:Urinary Tract Infection $New Bag 03/24/2024 5:25 PM CDT 2 g enoxaparin ANTICOAGULANT (LOVENOX) injection 40 mg 40 mg, Subcutaneous, PRE-OP/PRE-PROCEDURE, Starting on Sun03/25/24 at 1306, For 1 dose, IF patient to receive a Nerve Block, verify order with Song Plugger BEFORE administering. IMPORTANT: IF Patient ONLY receiving a TAP Block, Nursing does NOT need to verify order with Anesthesia, and can proceed with medication administration., Pre-procedure $Given 03/25/2024 1:14 PM CDT 40 mg FLUoxetine (PROzac) capsule 40 mg 40 mg, Oral, DAILY, First dose on Sun03/22/24 at 1800 $Given 03/26/2024 8:15 AM CDT 40 mg $Given 03/25/2024 8:24 AM CDT 40 mg $Given 03/24/2024 8:37 AM CDT 40 mg gadobutrol (GADAVIST) injection 6.78 mL 6.78 mL (0.1 mL/kg ? 67.8 kg), Intravenous, ONCE, On Sun03/22/24 at 1530, For 1 dose $Given 03/22/2024 3:30 PM CDT 6.7 mLs iopamidol (ISOVUE-370) solution 67 mL 67 mL, Intravenous, ONCE, On Sun03/22/24 at 1755, For 1 dose $Given 03/22/2024 6:04 PM CDT 67 mLs iopamidol (ISOVUE-370) solution 90 mL 90 mL, Intravenous, ONCE, On Sun03/23/24 at 0800, For 1 dose $Given 03/23/2024 8:43 AM CDT 90 mLs lactated ringers BOLUS 1,000 mL Intravenous, 1,000 mL, ONCE, at 500 mL/hr, Administer over 2 Hours, On Sun03/23/24 at 1205, For 1 dose $New Bag 03/23/2024 1:06 PM CDT 1,000 mLs 500 mL/hr lactated ringers BOLUS 500 mL Intravenous, 500 mL, ONCE, On Sun03/24/24 at 1630, For 1 dose $New Bag [...] HOURS, First dose (after last modification) on 03/22/24 at 1615, For 3 days $New Bag [...] 8 HOURS, First dose on Sun03/22/24 at 0905, to lock peripheral IV dormant [...] First dose on Sun03/24/24 at 1530, Indications: prophylaxisIndications:prophyla xis $Given 03/24/2024 5:10 PM CDT 1 tablet sulfamethoxazole-trimethoprim (BACTRIM DS) 800-160 MG per tablet 1 tablet Routine, 1 tablet, Oral, 2 TIMES DAILY, First dose on Sun03/25/24 at 1000, For 4 days, Indications: Urinary Tract Infection, And PCP prophylaxisIndications:Urinary Tract Infection,And PCP prophylaxis $Given 03/26/2024 8:13 AM CDT 1 tablet $Given 03/25/2024 7:35 PM CDT 1 tablet $Given 03/25/2024 10:08 AM CDT 1 tablet sulfamethoxazole-trimethoprim (BACTRIM DS) 800-160 MG per tablet 1 tablet Routine, 1 tablet, Oral, THREE TIMES WEEKLY (Once per day on Sunday), First dose on Sun03/31/24 at 0900, Indications: prophylaxisIndications:prophylaxis documented in this encounter Active and Recently [...] 0814 ($Given - Provider: Shoshana Jaimes RN) atorvastatin (LIPITOR) tablet 10 mg 10 mg, [...] Pharmacoprophylaxis, Pre-procedure 1525 ($Given - Provider: Saeed Yuen RN) cefTRIAXone (ROCEPHIN) 2 g vial to attach [...] receive a Nerve Block, verify order with Song Plugger BEFORE administering. IMPORTANT: IF Patient ONLY receiving a TAP Block, Nursing does NOT need to verify order with Anesthesia, and can proceed with medication administration., Pre-procedure 1314 ($Given - Provider: Mayra Liz RN) FLUoxetine (PROzac) capsule 40 mg 40 mg, Oral, DAILY, First dose on Sun03/22/24 at 1800 0837 ($Given - Provider: Yue [...] dose 1711 ($New Bag - Provider: Nathaniel Rosenberg, ALL[place]) levothyroxine (SYNTHROID/LEVOTHROID) tablet 150 mcg 150 mcg, [...] Generic Provider) 0433 ($Given - Provider: Latonya Osei RN) lisinopril (ZESTRIL) tablet 10 mg 10 mg, Oral, 2 TIMES DAILY, First dose on Sun03/22/24 at 1999 0837 ($Given - Provider: Yue Clark RN)1941 ($Given - Provider: Nathaniel Rosenberg RN) 0824 ($Given - Provider: Shoshana Jaimes RN)1250 (Auto Hold - Provider: Orders Generic Provider - Reason: Transfer to a procedural area)1834 (Unhold - Provider: Orders Generic Provider)1934 ($Given - Provider: Latonya Osei RN) 0814 ($Given - Provider: Shoshana Jaimes, ALLYSON)1999 (Canceled Entry - Provider: Orders Generic Provider - Comment: Automatically canceled at discontinue of medication order) methylPREDNISolone sodium succinate (solu-MEDROL) 1,000 mg in sodium chloride 0.9 % 283 mL intermittent infusion (COMPLETED) 1,000 mg, Intravenous, Administer over 60 Minutes, at 283 mL/hr, EVERY 24 HOURS, First dose (after last modification) on 03/22/24 at 1615, For 3 days 1728 ($New [...] at 0800 0837 ($Given - Provider: Yue Clark RN) 0824 ($Given - Provider: Shoshana Jaimes RN) predniSONE (DELTASONE) tablet 60 mg 60 mg, [...] Osei RN) 0813 ($Given - Provider: Shoshana Jaimes RN)2000 (Canceled Entry - Provider: Orders Generic Provider [...] Provider - Reason: Transfer to a procedural area)183 (Unhold - Provider: Orders Generic Provider) lidocaine (LMX4) cream Topical, EVERY 1 HOUR PRN, pain, with VAD insertion, Starting on Sun03/25/24 at 1843, Apply at least 30 minutes [...] Provider - Reason: Transfer to a procedural area)183 (Unhold - Provider: Orders Generic Provider) lidocaine [...] % 30 mL (CANCELED) PRN, Starting on e 03/25/24 at 1645, Intra-procedure 1645 ($Given - Provider: [...] stools. documented in this encounter Care Teams Central Sterilization Technician Relationship Specialty Start Date End Date Feliciano Uribe MD [address] [address] PCP - General Family Medicine 06/01/23 Christina Roe PA-C [address] [place] [address] Physician Licensing Manager Rheumatology 11/06/23 Christina Roe PA-C [address] [place] [address] Assigned Rheumatology Provider 11/09/23 documented as of this encounter
--- OUTSIDE RECORDS SUMMARY | 2024-06-24 09:01 | XMS_ITS | Encounter Summary ---
Author Organization [facility] Address [address] [place] [address]. [place] [address] Care Team Providers Care Technician Automated Equipment Name Role Phone Feliciano Uribe MD Primary Care Provider [phone] Christina Roe PA-C Unavailable Christina Roe PA-C Unavailable Richie Rowell [facility] Unavailable Reason for Visit * Rehab Therapy Integrated Services (Routine: Next available opening) - Authorized Specialty Diagnoses / Procedures Referred By Amena prasad Referred To Contact Diagnoses Temporal arteritis (H) PMR (polymyalgia rheumatica) (H) [address] [address] Phone: tel: Referral ID Status Reason Start Date Expiration Date V isits Requested Visits Authorized [id number] Authorized 03/27/2024 08/26/2024 365 365 Encounter Details Date Type Department Care Team (Late st Contact Info) Description 04/09/2024 10:30 AM CDT Therapy Visit [facility] Rehabilitation [address] [place] [address] Luz Yuan MD [address] [place] [address] Sue Gayle, PT [facility] [address] [place] [address] Temporal arteritis (H) (Primary Dx); PMR (polymyalgia [...] on file Legal Sex Female 3:41 AM MANAGEMENT ADVISOR Gender Identity Not on file Sexual Orientation Not on file documented as of this encounter Plan of Treatment Upcoming Encounters Date Type Department Care Team (Late st Contact Info) Description 07/08/2024 9:30 AM MANAGEMENT ADVISOR Virtual Visit [facility] Rheumatology [facility] [address] [facility] [address] [place] [phone] Zhane Crain MD [address] [place] [address] [facility] [address] [place] [address] 07/31/2024 2:00 PM MANAGEMENT ADVISOR Office Visit [facility] [address] [place] [phone] Christina Roe PA-C [address] [place] [address] documented as of this encounter Visit Diagnoses Diagnosis Temporal arteritis (H)- Primary Giant cell arteritis PMR (polymyalgia rheumatica) (H) Polymyalgia rheumatica Impaired gait and mobility documented in this encounter Care Teams Technician Automated Equipment Relationship Specialty Start Date End Date Feliciano Uribe MD [facility] [address] [place] [address] PCP - General Family Medicine 06/01/23 Christina Roe PA-C [address] [place] [address] Physician Quarter Backer Rheumatology 11/06/23 Christina Roe PA-C [address] [place] [address] Assigned Rheumatology Provider 11/09/23 Richie Rowell RPH [address] [place] [address] Pharmacist Pharmacist 04/08/24 documented as of this encounter
--- OUTSIDE RECORDS SUMMARY | 2024-06-24 09:02 | XMS_ITS | Encounter Summary ---
Author Organization [facility] Address [address] [place] [address]. [place] [address] Care Team Providers Care Ruling Machine Operator Name Role Phone Feliciano Uribe MD Primary Care Provider [phone] Christina Roe PA-C Unavailable Christina Roe PA-C Unavailable Richie Rowell [facility] Unavailable Richie Rowell [facility] Unavailable Zhane Crain MD Unavailable Saeed Berry MD Unavailable [phone] Encounter Details Date Type Department Care Team (Late st Contact Info) Description 03/25/2024 Ophth Exam [facility] Services - Eye Care Service Line [address] [place] [phone] Jorge Kelly MD [address] [place] [id number] Social History Tobacco Use Types Packs/Day Years [...] on file Legal Sex Female 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 [address] [facility] [address] [place] [phone] Zhane Crain MD [address] [place] [address] Richie Rowell, [facility] [address] [place] [address] 07/31/2024 2:00 PM CORRESPONDENCE SCHOOL TEACHER Office Visit [facility] [address] [facility] [address] [place] [phone] Christina Roe PA-C [address] [place] [address] documented as of this encounter Visit Diagnoses Not on filedocumented in this encounter Care Teams Ruling Machine Operator Relationship Specialty Start Date End Date Feliciano Uribe MD [facility] & [address] [address] PCP - General Family Medicine 06/01/23 Christina Roe PA-C [address] [place] [address] Physician Program Schedule Clerk Rheumatology 11/06/23 Christina Roe PA-C [address] [place] [address] Assigned Rheumatology Provider 11/09/23 Richie Rowell [facility] [address] [place] [address] Pharmacist Pharmacist 04/08/24 Richie Rowell [facility] [address] [place] [address] Assigned MTM Pharmacist 04/18/24 Zhane Crain MD [address] [place] [phone] Physician Rheumatology 05/14/24 Saeed Berry MD [address] [place] [address] Assigned Surgical Provider 05/19/24 documented as of this encounter
--- OUTSIDE RECORDS SUMMARY | 2024-06-24 09:02 | XMS_ITS | Encounter Summary ---
Author Organization [facility] Address [address] [place] [id number] Care Team Providers Care Tooling Engineering Tech Name Role Phone Feliciano Uribe MD Primary Care Provider Christina Roe PA-C Unavailable Christina Roe PA-C Unavailable + [phone] Encounter Details Date Type Department Care Team [...] on file Legal Sex Female 3:41 AM INTERLOCKING INSTALLER Gender Identity Not on file Sexual Orientation Not on file documented as of this encounter Plan of Treatment Upcoming Encounters Date Type Department Care Team (Late st Contact Info) Description 07/08/2024 9:30 AM INTERLOCKING INSTALLER Virtual Visit [facility] Rheumatology [facility] [address] [place] [address] Zhane Crain MD [address] [place] [address] [facility] [address] [place] [address] 07/31/2024 2:00 PM INTERLOCKING INSTALLER Office Visit [facility] [address] [place] [address] Christina Roe PA-C [address] [place] [address] documented as of this encounter Visit Diagnoses Not on filedocumented in this encounter Care Teams Tooling Engineering Tech Relationship Specialty Start Date End Date Feliciano Uribe MD [facility] [address] [place] [address] PCP - General Family Medicine 06/01/23 Christina Roe PA-C [address] [place] [address] Physician Gis Technician Rheumatology 11/06/23 Christina Roe PA-C [address] [place] [address] Assigned Rheumatology Provider 11/09/23 documented as of this encounter
--- OUTSIDE RECORDS SUMMARY | 2024-06-24 09:02 | XMS_ITS | Encounter Summary ---
Author Organization [facility] Address [address] [place] [address] Care Team Providers Care Claims Support Specialist Name Role Phone Feliciano Uribe MD Primary Care Provider Christina Roe PA-C Unavailable Christina Roe PA-C Unavailable Reason for Visit * Reason Comments Neck Pain * Auth/Cert Specialty Diagnoses / Procedures Referred By Amena prasad Referred To Contact EMERGENCY MEDICINE Diagnoses Temporal arteritis (H) PMR (polymyalgia rheumatica) (H24) Decreased vision of right eye Right temporal headache Neck pain [facility] Emergency Department [address] [place] [address] Phone: tel: Referral ID Status Reason Start Date Expiration Date Visits Re quested Visits Authorized [id number] 1 1 Encounter Details Date Type Department Care Team (Late st Contact Info) Description 03/25/2024 2:00 PM CDT - 03/25/2024 3:10 PM CDT Surgery [facility] PeriOp Services [address] [place] [phone] Richie Hawk, DO [address] [facility] [place]DE[facility] [id number] Bilateral temporal Artery Biopsy Surgery Details Date/Time Status Location OR Service Patient Class Case Class Case Type Trauma Case? 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 Luz Yuan Discharge Service: Medicine Service, [facility] TEAM 3 Discharge Diagnoses Blurry [...] Follow-ups Needed After Discharge Follow-up Appointments Adult [facility] Follow-up and recommended labs and tests Follow up with primary care provider, Feliciano Uribe, within 7 days to evaluate medication change, to evaluate treatment change, to evaluate after surgery, for hospital follow- up, and regarding new diagnosis. The following labs/tests are recommended: BMP and CBC. Follow up with rheumatology at your scheduled appointment Appointments on [facility] and/or [facility] (with [facility] or [facility] provider or service). Call [phone] if you haven't heard regarding these appointments [...] and hypotension since admission. Will gradually resume [employer] hypertensive medications. 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 Kwabena Eller MD, PhD [place] [address] Medicine Service [facility] 5A ONCOLOGY [address] [facility] [id number] Physical Exam Vital Signs: Temp: 98.1 ??F [...] Physician Feliciano Uribe Discharge Orders Physical Therapy Geosciences Associate Professor Referral Reason for your hospital stay You [...] activity upon discharge: activity as tolerated Adult [facility] Follow-up and recommended labs and tests Follow up with primary care provider, Feliciano Uribe, within 7 days to evaluate medication change, to evaluate treatment change, to evaluate after surgery, for hospital follow- up, and regarding new diagnosis. The following labs/tests are recommended: BMP and CBC. Follow up with rheumatology at your scheduled appointment Appointments on [facility] and/or [facility] (with [facility] or [facility] provider or service). Call [phone] if you haven't heard regarding these appointments [...] Head w/o Contrast Narrative EXAM MRA BRAIN ([place]) W/O CONTRAST 03/22/2024 4:41 PM HISTORY: Headache; r/o Giant cell/temporal arteritis; Age > 50 years; No visual symptoms COMPARISON: None TECHNIQUE: Using a 3D pjoo-pa-qwilpu image acquisition technique, MRA of the major [...] MD Echo Complete Value LVEF 60-65% Narrative [id number]^DIGNA^MARGARITA [facility] [address] [place] [id number] Name: GATO PARTIDA : 1945 Study Date: 03/23/2024 07:53 AM Age: 78 yrs Gender: Female Patient Location: [facility] Reason For Study: Syncope Ordering Physician: MARGARITA SAWYER Performed By: Priscila Mann RDCS BSA: 1.6 m2 Height: 60 in Weight: 149 lb BP: 94/48 mmHg Procedure Complete Portable Echo Adult. Contrast Optison. Echocardiogram with two- dimensional, color and spectral Doppler performed. Optison ([facility] #[id number]) given intravenously. 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 R temporal area surgical incision with pressure dressing on, generalized mild swelling. Scattered bruises on both FA. Interventions/actions: other none Will continue to monitor. * Mikhail Leon MD - 03/25/2024 11:37 AM CDT [facility] Progress Note - Medicine Service, [...] and hypotension since admission. Will gradually resume [employer] hypertensive medications. 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 Mikhail Leon MD Medicine Service, [address] Securely message with Oncoscope (more info) Text page via [employer] Paging/Directory See signed in provider for up [...] Activity/Exercise Type swimming (Fusion aqua class at [facility]) Exercise Amount/Frequency 3-5 times/wk Equipment Currently Used [...] Evaluation Time PT Eval, Low Complexity Minutes (39897) 18 PT Discharge Planning PT Plan Ambulate [...] OT - 03/25/2024 9:22 AM CDT 03/24/24 1237 Appointment Info Signing Clinician's Name / Credentials [...] IADLs, pt does not drive. A from [employer] [facility]. 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 Coordination Coordination Comments Per chart, pt reports coordination deficits with movement Bed Mobility Comment (Bed Mobility) Pt SBA with bed mobility Transfers Transfers sit-stand transfer;toilet transfer;shower transfer Sit-Stand Transfer Sit-Stand Harris (Transfers) contact guard Shower Transfer Type (Shower Transfer) lateral Harris Level (Shower Transfer) modified independence Assistive Device (Shower Transfer) grab bar, tub rail Shower Transfer Comments Per clinical judgement Toilet Transfer Type (Toilet Transfer) sit-stand;stand-sit Harris Level (Toilet Transfer) modified independence Assistive Device (Toilet Transfer) grab bars/safety frame Balance Balance Comments Per chart pt reports LOB primarily with activities that involve bending over Activities of Daily Living BADL Assessment/Intervention bathing;lower body dressing;grooming;toileting Bathing Assessment/Intervention Harris Level (Bathing) minimum assist (75% patient effort) Comment, (Bathing) Per clinical judgement Lower Body Dressing Assessment/Training Comment, (Lower Body Dressing) Per clinical judgement Harris Level (Lower Body Dressing) minimum assist (75% patient effort) Grooming Assessment/Training Harris Level (Grooming) minimum assist (75% patient effort) Comment, (Grooming) Per clinical judgement, pt reports on days that fluctuates symptoms, pt not able to get UE's over head Toileting Comment, (Toileting) Per clinical judgement Harris Level (Toileting) modified independence Clinical Impression Criteria [...] Evaluation Time OT Eval, Low Complexity Minutes (68084) 5 OT Goals Therapy Frequency (OT) 6 [...] Therapeutic Activity Therapeutic Activities Therapeutic Activity Minutes (17499) 25 Symptoms noted during/after treatment dizziness;fatigue Treatment [...] for 5 days until follow-up with her ingredient mixer on 03/20/24 when she was seen and [...] to follow closely while inpatient. Please contact anesthetic assistant satellite television installer with any questions or concerns. We appreciate [...] Normal Additional Tests Color Right Left Ishihara /14 9/14 9/14 OU by book 10.5/11 OD, 1011 OS by phone syed Slit Lamp and [...] Snyder MD - 03/24/2024 2:22 PM CDT [facility] Progress Note - Medicine Service, [facility] TEAM 3 Date of Admission: 03/22/2024 Assessment & Plan Gato Patrida is a 78 year old female admitted [...] and hypotension since admission. Will gradually resume SU[employer] hypertensive medications. 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 Verona Snyder MD Medicine Service, [address] Securely message with Oncoscope (more info) Text page via [facility] Paging/Directory See signed in provider for [...] for 5 days until follow-up with her ingredient mixer on 03/20/24 when she was seen and [...] to follow closely while inpatient. Please contact anesthetic assistant satellite television installer with any questions or concerns. We appreciate your care of this patient. Lamont Canales MD, PGY2 Ophthalmology Resident [facility] HISTORY OF PRESENTING ILLNESS: Gato Partida is [...] R forearm, bx site in R thigh. [facility] Nurse Consult Ordered NO. Bed Algorithm can be found in PCS flow sheets (Support Surface Algorithm) and on IP [facility] NURSE RESOURCE TAB, was this used during this assessment? NO P: Continue to monitor patient???s Status and intervene as needed. Continue with plan of care. Notify MD with any concerns or changes in patient status. * Shanda Reid MD - 03/23/2024 7:44 PM CDT [facility] Neurology Consultation - Progress Note [...] not hesitate to callwith questions/concerns (consult pager [phone]). Patient was seen and discussed with Dr. [...] Snyder MD - 03/23/2024 1:36 PM CDT [facility] Progress Note - Medicine Service, [facility] TEAM 3 Date of Admission: [...] chest without evidence of GCA - restart [employer] lisinopril #Blurry vision #Head/neck pain #Possible giant [...] and hypertensive on 03/23. Will gradually resume SUPER[employer] hypertensive medications. 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 Verona Snyder MD Medicine Service, [facility] TEAM [address] [place] [address] Securely message with Oncoscope (more info) Text page via [facility] Paging/Directory See signed in provider for [...] Head w/o Contrast Narrative EXAM MRA BRAIN ([place]) W/O CONTRAST 03/22/2024 4:41 PM HISTORY: Headache; r/o Giant cell/temporal arteritis; Age > 50 years; No visual symptoms COMPARISON: None TECHNIQUE: Using a 3D oqfd-[id number]-dpcnzk image acquisition technique, MRA of the major [...] Echo Complete Result Value LVEF 60-65% Narrative [id number]^DIGNA^MARGARITA [facility] [address] [place] [address] Name: GATO PARTIDA : 1945 Study Date: 03/23/2024 07:53 AM Age: 78 yrs Gender: Female Patient Location: [facility] Reason For Study: Syncope Ordering Physician: MARGARITA SAWYER Performed By: Priscila Mann RDCS BSA: 1.6 m2 Height: 60 in Weight: 149 lb BP: 94/48 mmHg Procedure Complete Portable Echo Adult. Contrast Optison. Echocardiogram with two- dimensional, color and spectral Doppler performed. Optison ([facility] #[id number]) given intravenously. Patient was given 5 ml [...] for 5 days until follow-up with her ingredient mixer on 03/20/24 when she was seen and [...] to follow closely while inpatient. Please contact anesthetic assistant satellite television installer with any questions or concerns. We appreciate your care of this patient. Lamont Canales MD, PGY2 Ophthalmology Resident [facility] HISTORY OF PRESENTING ILLNESS: Gato Partida is [...] Service (when I saw the patient): 03/22/24 [facility] History and Physical - Medicine Service, [facility] TEAM 3 Date of Admission: [...] - DVT US ordered #HTN - hold [employer] amlodipine, metoprolol, and lisinopril #Graves Disease - SU[employer] levothyroxine Diet: regular diet now, NPO at [...] . Yobani Guzman Medical Student Medicine Service, [address] Securely message with Oncoscope (more info) Text page via [facility] Paging/Directory See signed in provider for [...] Informant Patient Reported? Taking? D3-50 1.25 MG (27926 UT) capsule Yes No Sig: Take 1,250 [...] Galo MD - 03/24/2024 2:45 PM CDT [facility] Rheumatology IP Consult Consult for: GCA ASSESSMENT [...] Dr. Paras Rodríguez MD PGY-4 Rheumatology Fellow [phone] [text page] History of Present Illness Gato [...] or diarrhea. No results found for: HBCAB, [id number], HCABC, HCVAB, TBRES Immunization History Administered Date(s) [...] Resource Strain: Low Risk (10/10/2022) Received from [facility] Overall Financial Resource Strain (CARDIA) Difficulty of Paying Living Expenses: Not hard at all Food Insecurity: No Food Insecurity (10/10/2022) Received from [facility] Hunger Vital Sign Worried About Running Out of Food in the Last Year: Never true Ran Out of Food in the Last Year: Never true Transportation Needs: No Transportation Needs (10/10/2022) Received from [facility] PRAPARE - Transportation Lack of Transportation (Medical): No Lack of Transportation (Non-Medical): No Physical Activity: Insufficiently Active (10/10/2022) Received from [facility] Exercise Vital Sign Days of Exercise per Week: 2 days Minutes of Exercise per Session: 40 min Stress: No Stress Concern Present (10/10/2022) Received from [facility] Citizen Of The [place] Kennard of Occupational Health - Occupational Stress Questionnaire Feeling of Stress : Only a little Social Connections: Socially Integrated (10/10/2022) Received from [facility] Social Connection and Isolation Panel [NHANES] Frequency of Communication with Friends and Family: Twice a week Frequency of Social Gatherings with Friends and Family: Twice a week Attends Taoism Services: More than 4 times per year Active Member of Clubs or Organizations: Yes Attends Club or Organization Meetings: 1 to 4 times per year Marital Status: Interpersonal Safety: Not At Risk (10/10/2022) Received from [facility] Humiliation, Afraid, Rape, and Kick questionnaire Fear of Current or Ex-Partner: No Emotionally Abused: No Physically Abused: No Sexually Abused: No Housing Stability: Low Risk (10/10/2022) Received from [facility] Housing Stability Vital Sign Unable [...] found for: ANCA No results found for: [id number] No results found for: Q1GIQWI No results found for: ANTONIA No results found for: DNA Lab Results Component Value Date SSAIGG Negative 10/18/2023 SSBIGG Negative 10/18/2023 No results found for: CCPABG, CCPABY, RF8, CARIA, ANCA, IR4563, [id number], [id number], [id number] IMAGING: CTA Chest with Contrast Narrative: Exam: [...] the findings. CORINNA BERG MD Echo Complete [id number]^DIGNA^MARGARITA [facility] [address] [place] [address] Name: GATO PARTIDA : 1945 Study Date: 03/23/2024 07:53 AM Age: 78 yrs Gender: Female Patient Location: [facility] Reason For Study: Syncope Ordering Physician: MARGARITA SAWYER Performed By: Priscila Mann RDCS BSA: 1.6 m2 Height: 60 in Weight: 149 lb BP: 94/48 mmHg Procedure Complete Portable Echo Adult. Contrast Optison. Echocardiogram with two- dimensional, color and spectral Doppler performed. Optison ([facility] #[id number]) given intravenously. Patient was given 5 ml [...] CDTAssociated Order(s): SURGERY GENERAL ADULT IP CONSULT [facility] Consult Note - General Surgery [...] Telles. Christo Alicea MD General Surgery Resident [facility] Text page via [facility] Paging/Directory Chief Complaint Neck Pain History [...] by mouth at bedtime D3-50 1.25 MG (75308 UT) capsule Take 1,250 mcg by mouth [...] immediately available if needed. Teresa Telles MD director of orthopedics Pager [phone] * Lincoln Carolina MD - 03/22/2024 3:49 PM CDTAssociated Order(s): NEUROLOGY GENERAL ADULT IP CONSULT [facility] Neurology Consultation Patient Name: Gato [...] Resource Strain: Low Risk (10/10/2022) Received from [facility] Overall Financial Resource Strain (CARDIA) Difficulty of Paying Living Expenses: Not hard at all Food Insecurity: No Food Insecurity (10/10/2022) Received from [facility] Hunger Vital Sign Worried About Running Out of Food in the Last Year: Never true Ran Out of Food in the Last Year: Never true Transportation Needs: No Transportation Needs (10/10/2022) Received from [facility] PRAPARE - Transportation Lack of Transportation (Medical): No Lack of Transportation (Non-Medical): No Physical Activity: Insufficiently Active (10/10/2022) Received from [facility] Exercise Vital Sign Days of Exercise per Week: 2 days Minutes of Exercise per Session: 40 min Stress: No Stress Concern Present (10/10/2022) Received from [facility] Citizen Of The [place] Kennard of Occupational Health - Occupational Stress Questionnaire Feeling of Stress : Only a little Social Connections: Socially Integrated (10/10/2022) Received from [facility] Social Connection and Isolation Panel [NHANES] Frequency of Communication with Friends and Family: Twice a week Frequency of Social Gatherings with Friends and Family: Twice a week Attends Taoism Services: More than 4 times per year Active Member of Clubs or Organizations: Yes Attends Club or Organization Meetings: 1 to 4 times per year Marital Status: Interpersonal Safety: Not At Risk (10/10/2022) Received from [facility] Humiliation, Afraid, Rape, and Kick questionnaire Fear of Current or Ex-Partner: No Emotionally Abused: No Physically Abused: No Sexually Abused: No Housing Stability: Low Risk (10/10/2022) Received from [facility] Housing Stability Vital Sign Unable [...] strength bilaterally in deltoids, biceps, triceps, 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 Patient was seen and discussed with Dr. [...] 2:26 PM CDTAssociated Order(s): RHEUMATOLOGY IP CONSULT [facility] Rheumatology IP Consult Consult for: GCA ASSESSMENT [...] Dr. Paras Rodríguez MD PGY-4 Rheumatology Fellow [phone] [text page] History of Present Illness Gato [...] or diarrhea. No results found for: HBCAB, [id number], HCABC, HCVAB, TBRES Immunization History Administered Date(s) [...] Resource Strain: Low Risk (10/10/2022) Received from [facility] Overall Financial Resource Strain (CARDIA) Difficulty of Paying Living Expenses: Not hard at all Food Insecurity: No Food Insecurity (10/10/2022) Received from [facility] Hunger Vital Sign Worried About Running Out of Food in the Last Year: Never true Ran Out of Food in the Last Year: Never true Transportation Needs: No Transportation Needs (10/10/2022) Received from [facility] PRAPARE - Transportation Lack of Transportation (Medical): No Lack of Transportation (Non-Medical): No Physical Activity: Insufficiently Active (10/10/2022) Received from [facility] Exercise Vital Sign Days of Exercise per Week: 2 days Minutes of Exercise per Session: 40 min Stress: No Stress Concern Present (10/10/2022) Received from [facility] Citizen Of The [place] Kennard of Occupational Health - Occupational Stress Questionnaire Feeling of Stress : Only a little Social Connections: Socially Integrated (10/10/2022) Received from [facility] Social Connection and Isolation Panel [NHANES] Frequency of Communication with Friends and Family: Twice a week Frequency of Social Gatherings with Friends and Family: Twice a week Attends Taoism Services: More than 4 times per year Active Member of Clubs or Organizations: Yes Attends Club or Organization Meetings: 1 to 4 times per year Marital Status: Interpersonal Safety: Not At Risk (10/10/2022) Received from [facility] Humiliation, Afraid, Rape, and Kick questionnaire Fear of Current or Ex-Partner: No Emotionally Abused: No Physically Abused: No Sexually Abused: No Housing Stability: Low Risk (10/10/2022) [facility] Housing Stability Vital Sign Unable to Pay [...] found for: ANCA No results found for: [id number] No results found for: B2RKACU No results found for: ANTONIA No results found for: DNA Lab Results Component Value Date SSAIGG Negative 10/18/2023 SSBIGG Negative 10/18/2023 No results found for: CCPABG, CCPABY, RF8, CARIA, ANCA, EE1736, [id number], [id number], [id number] IMAGING: CTV Head Neck w Contrast RESIDENT [...] for 5 days until follow-up with her ingredient mixer on 03/20/24 when she was seen and [...] Long- term management will fall to her ingredient mixer and patient would likely benefit from Actemra if she is a candidate and her insurance will approve. 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 Please contact anesthetic assistant satellite television installer with any questions or concerns. We appreciate your care of this patient. Luis Alberto Anderson MD, PGY3 Ophthalmology Resident [facility] HISTORY OF PRESENTING ILLNESS: Gato Partida is [...] PM Additional Tests Color Right Left Ishihara /16 1616 Slit Lamp and Fundus Exam External Exam [...] 03/22/2024 8:27 AM CDT ED Provider Note [facility] History Chief Complaint Patient presents [...] note, patient presented to the ED in [place] on 03/15 with stiffness on the right [...] head. After taking prednisone her symptoms improved. Assembler Trim recommended that she present to the emergency [...] (LIPITOR) 10 MG tablet D3-50 1.25 MG (18803 UT) capsule FLUoxetine (PROZAC) 40 MG capsule [...] Course, Procedures, & Data Records are in [facility]. Patient seen by rheumatology on [...] pain Rhythm: Normal sinus Rate: 70 bpm Bloxom: Normal Ectopy: None Conduction: Normal ST Segments/ [...] Contrast Status: None Narrative EXAM MRA BRAIN ([place]) W/O CONTRAST 03/22/2024 4:41 PM HISTORY: Headache; r/o Giant cell/temporal arteritis; Age > 50 years; No visual symptoms COMPARISON: None TECHNIQUE: Using a 3D imfm-wu-mndwme image acquisition technique, MRA of the major [...] agree with the findings. TAMERA ANTHONY MD [place] Draw Status: None Narrative The following orders were created for panel order [place] Draw. Procedure Abnormality Status --------- ------ Extra Blue Top Tube[[id number]] Final result Extra Red Top Tube[[id number]] Final result Extra Green Top ([place]...[[id number]] Final result Extra Purple Top Tube[[id number]] Final result Please view results for these tests on the individual orders. Extra Blue Top Tube Status: None Result Value Ref Range Hold Specimen JIC Extra Red Top Tube Status: None Result Value Ref Range Hold Specimen JIC Extra Green Top ([place] Heparin) Tube Status: None Result Value Ref [...] Negative Ketones Urine Negative Negative mg/dL Specific [place]ler Urine 1.004 1.003 - 1.035 Blood Urine [...] Rate 70 BPM Atrial Rate 70 BPM OR Interval 130 ms QRS Duration 84 ms QT 394 ms QTc 425 ms P Bloxom 19 degrees R AXIS 33 degrees T Bloxom 60 degrees Interpretation ECG Sinus rhythm Normal ECG CBC with platelets differential Status: Abnormal Narrative The following orders were created for panel order CBC with platelets differential. Procedure Abnormality Status --------- ------ CBC with platelets and d...[[id number]] Abnormal Final result Please view results for [...] Bilirubin Urine Negative Ketones Urine Negative Specific [place]ler Urine 1.004 Blood Urine Negative pH Urine [...] temporal headache Neck pain Jona Sears MD [facility] EM[facility]GENCY DEPARTMENT 03/22/2024 This note was created at least in part by the use of [employer] voice dictation system. Inadvertent typographical errors may [...] goal(s). See goals on Care Plan in [facility] electronic health record for goal [...] reported another episodeof similar symptoms & notified satellite television installer primary team. Resident visited patient at bedside [...] be displayed automatically on your shift note. 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 Hematoma on R temporal. Labs/imaging: Reviewed, see chart. Plan: Possible discharge today. Continue to monitor and follow POC * Plan of Care - Latonya Osei RN - 03/26/2024 4:51 AM CDT Goal Outcome Evaluation: Pt A&O, VSS on RA, afebrile. Denies nausea, vomiting, or SOB. Hematoma on right side of head covered by pressure dressing. 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 Pain managed with tylenol. Up with SBA. * Brief Op Note - Kristel Simeon MD - 03/25/2024 5:15 PM CDT [facility] Brief Operative Note Pre-operative diagnosis: [...] Temporal, Right SURGICAL PATHOLOGY EXAM Richie Hawk DO 03/25/2024 4:33 PM Findings: None. Complications: None. Implants: * No implants in log * Back to floor Regular diet Pain control Keep dressing in place on R side until tomorrow Rest of cares per primary team Kristel Simeon MD General Surgery, PGY2 * Op Note - Breann Horn MD - 03/25/2024 3:54 PM CDT Operative Note [facility] Pre-operative diagnosis: sudden visual loss [...] 03/25/2024 3:46 AM CDT Goal Outcome Evaluation: [id number] Pt A&O, VSS on RA, afebrile. Denies nausea, vomiting, or SOB. Slight headache and no other pain. Numbness on right side, up with Ax1. Denied any pain when urinating. NPO at midnight. * Plan of Care - Diana Beltran - 03/24/2024 10:32 PM CDT Assumed care from: [[id number]] Vitals: BP (!) 145/63 Pulse 73 Temp [...] drink until 11am today. [facility] and notify MD if any other concerns. * Plan of Care - Liliam Garduno RN - 03/24/2024 1:58 AM CDT [id number] BP (!) 154/74 (BP Location: Left arm) [...] Care Reviewed With: patient A/Ox4, visited by anesthetic assistant who conducted bedside assessment, had echocardiogram done [...] eating well. Visited by family, continued on teletypesetter monitor. BP (!) 148/54 (BP Location: Left [...] ??C) (Oral) Resp 20 SpO2 98% Time: 1142-6430 Patient is alert and oriented, SBA, C/o [...] Pertinent Information: Pt reported taking medications on [employer] medication list as directed, stated that she placed on Prednisone 20 mg tabs on March 15 for 5 days, which she took till Sunday, said she went to see her doctor and her doctor sent her here. Changes made to [employer] medication list: Added: Cyanocobalamin 1000 mcg/ml. Deleted: Prednisone 5 mg tabs. Changed: None Allergies reviewed with patient and updates made in EHR: yes Medication History Completed By: Elidia Beltran 03/23/2024 6:50 AM [employer] Med List Medication Sig Last Dose amLODIPine (NORVASC) 10 MG tablet Take 1 tablet by mouth daily at 2 pm 03/22/2024 at am amoxicillin (AMOXIL) 500 MG capsule TAKE 4 CAPSULES BY MOUTH 1 HOUR BEFORE DENTAL APPOINTMENT FOR 1DOSE at procedure only atorvastatin (LIPITOR) 10 MG tablet Take 10 mg by mouth at bedtime 03/21/2024 at hs D3-50 1.25 MG (19350 UT) capsule Take 1,250 mcg by mouth [...] st Contact Info) Description 07/08/2024 9:30 AM CHAIN HOIST OPERATOR Virtual Visit M [facility] Rheumatology [facility] [address] [place] [phone] Zhane Crain MD [address] [place], [place] [address] Richie Rowell, [facility] [address] [place] [address] 07/31/2024 2:00 PM CHAIN HOIST OPERATOR Office Visit M [facility] [address] [place] [phone] Christina Roe PA-C [address] [place] [address] Scheduled Referrals Name Type Priority Associated Diagnoses Orde r Schedule Physical Therapy Geosciences Associate Professor Referral Referral Routine: Next available opening Temporal [...] STAT 03/22/2024 4:42 PM CDT MRA BRAIN ([place]) W/O CONTRAST STAT 03/22/2024 4:41 [...] - BLOOD ORDERABLES Final Result U LABORATORY [facility] [place] Core Lab [address] [facility], [address] * Erythrocyte sedimentation rate auto (03/26/2024 6:14 AM CDT) Pathologist [facility] Erythrocyte Sedimentation Rate 6 0 - 30 mm/hr 03/26/2024 7:08 AM CDT [facility] LAB[facility]ORY Blood STRUCTURE OF LEFT HAND / Unknown Venipuncture / Unknown 03/26/2024 6:14 AM CDT 03/26/2024 6:23 AM CDT Kristel Simeon MD LAB - BLOOD ORDERABLES Final Result LABORATORY [facility] Core Lab [address] [facility], [address] * (ABNORMAL) Basic metabolic panel (03/26/2024 6:14 AM CDT) Pathologist [facility] Sodium 138 135 - 145 mmol/L 03/26/2024 [...] - BLOOD ORDERABLES Final Result [facility] LABORATORY [facility] [place] [facility] [address], [address] [place] [address] * (ABNORMAL) CBC with platelets [...] - BLOOD ORDERABLES Final Result [facility] LABORATORY [facility] Core Lab [address] [facility] [address], [address] [place], [place] [address] * Surgical Pathology Exam (03/25/2024 4:29 PM CDT) Case Report Surgical Pathology Report ? Case: [id number] ? Authorizing Provider: ??Richie Dominguez ? Collected: ? 03/25/2024 04:29 PM ? Nikos, DO ? Ordering Location: ? [facility] MAIN OR ? Received: ?03/25/2024 05:08 PM ? Pathologist: ? Mayra Galan MD ? Specimens: ?? A) - Artery, Temporal, Left, Left Temporal Artery Biopsy ? B) - Artery, Temporal, Right, Right Temporal Artery Biopsy ? 03/26/2024 9:50 AM T SPECIALTY LABS Final Diagnosis A. Temporal artery, left, biopsy: No evidence of giant cell arteritis. Mild medial calcific sclerosis. B. Temporal artery, right, biopsy: No evidence of giant cell arteritis. 03/26/2024 9:50 AM [facility] Clinical Information The patient is [...] component of this testing was completed at [facility]. Stain controls for all [...] CDT 03/25/2024 5:08 PM CDT us Richie Hawk DO LAB - QUANAKER AP Final Result SPECIALTY LABS Specialty Lab [address] [facility] [address], [address] [place] [phone], [facility] UU LABORATORY [facility] [place] [facility] Lab [address], [address] [place] [address], [facility] * (ABNORMAL) CBC with platelets and differential (03/25/2024 11:38 AM CDT) [facility] WBC Count 11.3(H) 4.0 - 11.0 10e3/uL [...] BLOOD ORDER LUCILLE Final Result [facility] LABORATORY [facility] [place] [facility] [address] [facility], [address] * CRP inflammation (03/25/2024 5:54 AM CDT) Pathologist [facility] CRP Inflammation <3.00 <5.00 mg/L 03/25/20 6:47 AM CDT [facility] LAB[facility]ORY Blood STRUCTURE OF LEFT UPPER LIMB / Unknown Venipuncture / Unknown 03/25/2024 5:54 AM CDT 03/25/2024 6:14 AM CDT us Kristel Simeon MD LAB - BLOOD ORDERABLES Final Result [facility] LABORATORY [facility] [place] [facility] [address] [facility], [address] * Erythrocyte sedimentation rate auto (03/25/2024 5:54 AM CDT) Erythrocyte Sedimentation Rate 8 0 - 30 mm/hr 03/25/2024 7:01 AM CDT [facility] LAB[facility] Blood STRUCTURE OF LEFT UPPER LIMB / Unknown Venipuncture / Unknown 03/25/2024 5:54 AM CDT 03/25/2024 6:14 AM CDT Kristel Simeon MD LAB - BLOOD ORDERABLES Final Result [facility] LABORATORY [facility] [place] [facility] [address] [facility], [address] [address], [facility] * (ABNORMAL) Basic metabolic panel (03/25/2024 5:54 [...] 6:47 AM CDT [facility] LABORATORY Comment:eGFR calculated usin g 2020 CKD-EPI equation. Calcium 8.4(L) 8.8 - 10.4 [...] - BLOOD ORDERABLES Final Result [facility] LABORATORY [facility] [place] [facility] [address], [address] [place] [phone] * (ABNORMAL) CBC with platelets (03/24/2024 5:30 PM CDT) [facility] WBC Count 17.2(H) 4.0 - 11.0 10e3/uL [...] - BLOOD ORDERABLES Final Result [facility] LABORATORY [facility] [place] [facility] [address] [facility] Building, [address] [place] [address] * US Temporal Arteries Duplex [...] mm MICHAEL DUENAS MD Kristel Simeon MD [facility] US ORDERABLES Final Resul t * CRP inflammation (03/24/2024 5:09 AM CDT) [facility] CRP Inflammation <3.00 <5.00 mg/L 03/24/20 5:48 AM CDT U LABORATORY Blood STRUCTURE OF LEFT UPPER LIMB / Unknown Venipuncture / Unknown 03/24/2024 5:09 AM CDT 03/24/2024 5:15 AM CDT Kristel Simeon MD LAB - BLOOD ORDERABLES Final Result U LABORATORY [facility] [place] [facility] [address], [address] [place] [address], [facility] * Erythrocyte sedimentation rate auto (03/24/2024 5:09 AM CDT) [facility] Erythrocyte Sedimentation Rate 6 0 - 30 mm/hr 03/24/2024 6:23 AM CDT [facility] LAB[facility] Blood STRUCTURE OF LEFT UPPER LIMB / Unknown Venipuncture / Unknown 03/24/2024 5:09 AM CDT 03/24/2024 5:15 AM CDT Kristel Simeon MD LAB - BLOOD ORDERABLES Final Result [facility] LABORATORY [facility] [place] [facility] [address] [facility], [address] [place] [address] * (ABNORMAL) Basic metabolic panel (03/24/2024 5:09 [...] CDT Margarita Sawyer MD LAB - BLOOD ORDERABLES Final Result [facility] LABORATORY [facility] [place] [facility] [address] [facility], [address] [place] [address] * (ABNORMAL) CBC with platelets (03/24/2024 5:09 [...] CDT Margarita Sawyer MD LAB - BLOOD ORDERABLES Final Result [facility] LABORATORY [facility] [place] [facility] [address] [facility], [facility], [address] [place] [id number] * Interleukin 6 Blood (03/23/2024 11:04 AM CDT) Interleukin 6 Blood <0.70 <3.01 pg/mL LICHA 03/24/2024 2:03 PM CDT [facility] Blood STRUCTURE OF LEFT UPPER LIMB / Unknown Venipuncture / Unknown 03/23/2024 11:04 AM CDT 03/23/2024 11:14 AM CDT Narrative [facility] - 03/24/2024 2:03 PM [...] patient management.

Assayed at [facility], [address] [address] Margarita Sawyer MD LAB - BLOOD ORDERABLES Final Result Performing Organization Address [facility] de Phone Number [facility] [address] [place] [address] * CTA Chest with Contrast (03/23/2024 [...] findings. CORINNA BERG MD Margarita Sawyer MD IM CT ORDERABLES Final Resul t * ECHO COMPLETE WITH CONTRAST (03/23/2024 8:14 AM CDT) LVEF 60-65% CARDIOLOGY RESULTS Anatomical Region Laterality Modality Echocardiography 03/23/2024 7:53 AM CDT Narrative 03/23/2024 10:36 AM CDT [id number]^DIGNA^MARGARITA [facility] Echocardiography Laboratory [address] [place] [id number] Name: GATO PARTIDA : 1945 Study Date: 03/23/2024 07:53 AM Age: 78 yrs Gender: Female Patient Location: [facility] Reason For Study: Syncope Ordering Physician: MARGARITA SAWYER Performed By: Priscila Mann RDCS BSA: 1.6 m2 Height: 60 in Weight: 149 lb BP: 94/48 mmHg Procedure Complete Portable Echo Adult. Contrast Optison. Echocardiogram with two- dimensional, color and spectral Doppler performed. Optison ([facility] #[id number]) given intravenously. Patient was given 5 ml [...] Procedure Note Malaika Dobbins MD - 03/23/2024 [id number]^DIGNA^MARGARITA [facility] Ech[facility] Laboratory [address] [place] [id number] Name: GATO PARTIDA : 1945 Study Date: 03/23/2024 07:53 AM Age: 78 yrs Gender: Female Patient Location: [facility] Reason For Study: Syncope Ordering Physician: MARGARITA SAWYER Performed By: Priscila Mann RDCS BSA: 1.6 m2 Height: 60 in Weight: 149 lb BP: 94/48 mmHg Procedure Complete Portable Echo Adult. Contrast Optison. Echocardiogram with two- dimensional, color and spectral Doppler performed. Optison ([facility]#[id number]) given intravenously. Patient was given 5 ml [...] AM Margarita Sawyer MD CV ECHO ORDERABLES Edited Res ult - Final * CRP inflammation (03/23/2024 6:28 AM CDT) Pathologist [facility] CRP Inflammation <3.00 <5.00 mg/L 03/23/20 8:07 AM CDT U LABORATORY Blood STRUCTURE OF RIGHT UPPER LIMB / Unknown Venipuncture / Unknown 03/23/2024 6:28 AM CDT 03/23/2024 7:35 AM CDT us Kristel Simeon MD LAB - BLOOD ORDERABLES Final Result [facility] LABORATORY [facility] [place] [facility] [address] [facility], [address] [place] [phone] * Erythrocyte sedimentation rate auto (03/23/2024 6:28 AM CDT) Pathologist [facility] Erythrocyte Sedimentation Rate 10 0 - 30 mm/hr 03/23/2024 8:10 AM CDT U LABORATORY Blood STRUCTURE OF RIGHT UPPER LIMB / Unknown Venipuncture / Unknown 03/23/2024 6:28 AM CDT 03/23/2024 7:21 AM CDT us Kristel Simeon MD LAB - BLOOD ORDERABLES Final Result [facility] LABORATORY [facility] [place] [facility] [address] [facility], [address] [place] [phone] * CBC with platelets (03/23/2024 6:28 AM CDT) [facility] WBC Count 7.2 4.0 - 11.0 10e3/uL [...] - BLOOD ORDERABLES Final Result [facility] LABORATORY [facility] [place] [facility] [address] [facility], [address] [place] [phone] * (ABNORMAL) Basic metabolic panel [...] - BLOOD ORDERABLES Final Result [facility] LABORATORY [facility] [place] [facility] [address] [facility], [address] [place] [address], [facility] * CTV Head Neck w Contrast (03/22/2024 [...] with the findings. TAMERA ANTHONY MD Margarita OLIVARES US ORDERABLES Final Resul t * MRA [...] agree with the findings. XI BACON MD us Jona Sears MD IMG MRI ORDERABLES Final Re sult * MRA [...] 03/22/2024 8:38 PM CDT EXAM MRA BRAIN ([place]) W/O CONTRAST 03/22/2024 4:41 PM HISTORY: Headache; r/o Giant cell/temporal arteritis; Age > 50 years; No visual symptoms COMPARISON: ??None TECHNIQUE: Using a 3D buja-ff-ichplc image acquisition technique, MRA of the major [...] Bacon MD - 03/22/2024 EXAM MRA BRAIN ([place]) W/O CONTRAST 03/22/2024 4:41 PM HISTORY: Headache; r/o Giant cell/temporal arteritis; Age > 50 years; No visual symptoms COMPARISON: None TECHNIQUE: Using a 3D btdb-ii-xnptao image acquisition technique, MRA of the major [...] IM MRI ORDERABLES Final Re sult * MR [...] mastoid air cells. Normal orbits. Procedure Note NascXi mcnair MD - 03/22/2024 MR BRAIN AND ORBITS [...] IMG MRI ORDERABLES Final Re sult * (ABNORMAL) [...] ORDERAB LES Final Result UU IDD LABORATORY [facility] Inf. Diseases Diag. Lab [address] [facility], [address] [place] [address] * (ABNORMAL) UA with Microscopic [...] 03/22/2024 10:28 AM CDT [facility] LABORATORY Specific [place] Urine 1.004 1.003 - 1.035 03/22/2024 10:28 [...] Urine Culture ordered based on laboratory criteria us Jona Sears MD LAB - URINE ORDERABLES Daylin l Result [facility]U LABORATORY [facility] [place] [facility] [address] [facility], [address] [place] [address] * Lactic Acid Whole Blood with 1X Repeat in 2 HR when >2 (03/22/2024 9:27 AM CDT) Lactic Acid, Initial 1.4 0.7 - 2.0 mmol/L 03/22/2024 9:42 AM CDT U LABORATORY Blood BLOOD SPECIMEN / Unknown Venipuncture / Unknown 03/22/2024 9:27 AM CDT 03/22/2024 9:40 AM CDT Jona Sears MD LAB - BLOOD ORDERABLES Daylin l Result LABORATORY [facility] Core Lab [address] [facility], [address] * Erythrocyte sedimentation rate auto (03/22/2024 9:27 AM CDT) Erythrocyte Sedimentation Rate 4 0 - 30 mm/hr 03/22/2024 10:11 AM CDT LABORATORY Blood BLOOD SPECIMEN / Unknown Venipuncture / Unknown 03/22/2024 9:27 AM CDT 03/22/2024 9:41 AM CDT Jona Sears MD LAB - BLOOD ORDERABLES Daylin l Result Performing Organization Address City/State/[facility] Co de Phone Number LABORATORY [facility] [address] [place] [address], [address] * EKG 12-lead, tracing only (03/22/2024 9:16 AM CDT) Systolic Blood Pressure mmHg RADIOLOGY RESULTS Diastolic Blood Pressure mmHg RADIOLOGY RESULTS Ventricular Rate 70 BPM RAD IOLOGY RESULTS Atrial Rate 70 BPM RADIOLOG Y RESULTS OR Interval 130 ms RADIOLOG Y RESULTS QRS Duration 84 ms RADIOLO GY RESULTS QT 394 ms RADIOLOGY RESULTS QTc 425 ms RADIOLOGY RESULTS P Bloxom 19 degrees RADIOLOGY RESULTS R AXIS 33 degrees RADIOLOGY RESULTS T Bloxom 60 degrees RADIOLOGY RESULTS Interpretation ECG Sinus rhythm Normal ECG Unconfirmed report - interpretation of this ECG is computer generated - see medical record for final interpretation Confirmed by - EMERGENCY ROOM, PHYSICIAN ([id number]), science editor DANIA SIMEON ([id number]) on 03/24/2024 6:54:51 AM RADIOLOGY RESULTS 03/22/2024 9:16 AM CDT 03/24/2024 6:54 AM CDT us Jona Sears MD ECG ORDERABLES Edited Resu [...] BLOOD ORDERABLES Daylin l Result [facility] LABORATORY [facility] [place] [facility] [address] [facility], [address] * TSH (03/22/2024 8:45 AM CDT) TSH 2.40 0.30 - 4.20 uIU/mL 03/22/2024 10:19 AM CDT [facility] LABORATORY Blood BLOOD SPECIMEN / Unknown Venipuncture / Unknown 03/22/2024 8:45 AM CDT 03/22/2024 9:23 AM CDT Jona Sears MD LAB - BLOOD ORDERABLES Daylin l Result [facility] LABORATORY [facility] [place] [facility] [address] [facility] * Nt probnp inpatient (BNP) (03/22/2024 [...] BLOOD ORDERABLES Daylin corrales Result [facility] LABORATORY [facility] [place] [facility] [address] [facility], [address] [place] [phone] * Troponin T, High Sensitivity (03/22/2024 8:45 AM CDT) Pathologist [facility] Troponin T, High Sensitivity 12 <=14 ng/L [...] BLOOD ORDERABLES Daylin l Result [facility] LABORATORY [facility] [place] [facility] [address] [facility], [address] * Magnesium (03/22/2024 8:45 AM CDT) Magnesium 1.9 1.7 - 2.3 mg/dL 03/22/2024 10:19 AM CDT [facility] LABORATORY Blood BLOOD SPECIMEN / Unknown Venipuncture / Unknown 03/22/2024 8:45 AM CDT 03/22/2024 9:23 AM CDT Jona Sears MD LAB - BLOOD ORDERABLES Daylin l Result [facility] LABORATORY [facility] [place] [facility] [address] [facility] * (ABNORMAL) Comprehensive metabolic panel (03/22/2024 [...] BLOOD ORDERABLES Daylin l Result [facility] LABORATORY [facility] [place] [facility] [address] [facility], [address] [place] [address], [facility] * CRP inflammation (03/22/2024 8:45 AM CDT) CRP Inflammation <3.00 <5.00 mg/L 03/22/20 10:19 AM CDT [facility] LABORATORY Blood BLOOD SPECIMEN / Unknown Venipuncture / Unknown 03/22/2024 8:45 AM CDT 03/22/2024 9:23 AM CDT Jona Sears MD LAB - BLOOD ORDERABLES Daylin l Result LABORATORY [facility] [place] [facility] [address] [facility] * INR (03/22/2024 8:45 AM CDT) INR 0.91 0.85 - 1.15 03/22/2024 9:50 AM CDT U LABORATORY Blood BLOOD SPECIMEN / Unknown Venipuncture / Unknown 03/22/2024 8:45 AM CDT 03/22/2024 9:24 AM CDT Jona Sears MD LAB - BLOOD ORDERABLES Daylin l Result LABORATORY [facility] Core Lab [facility], [address] * Partial thromboplastin time (03/22/2024 8:45 AM CDT) aPTT 33 22 - 38 Seconds 03/22/2024 9:50 AM CDT U LABORATORY Blood BLOOD SPECIMEN / Unknown Venipuncture / Unknown 03/22/2024 8:45 AM CDT 03/22/2024 9:24 AM CDT Jona Sears MD LAB - BLOOD ORDERABLES Daylin l Result LABORATORY [facility] [place] Core Lab [facility], [address] * Extra Purple Top Tube (03/22/2024 8:45 AM CDT) Hold Specimen [facility] 03/22/2024 10:32 AM CDT LABORATORY Blood BLOOD SPECIMEN / Unknown Venipuncture / Unknown 03/22/2024 8:45 AM CDT 03/22/2024 9:24 AM CDT Ramya Berry DO LAB - BLOOD ORDERABLES Final Res ult LABORATORY [facility] [place] Core Lab [facility], [address] [address] [place] [address] * Extra Green Top ([place] Heparin) Tube (03/22/2024 8:45 AM CDT) Hold Specimen [facility] 03/22/2024 10:32 AM CDT LABORATORY Blood BLOOD SPECIMEN / Unknown Venipuncture / Unknown 03/22/2024 8:45 AM CDT 03/22/2024 9:23 AM CDT Ramya Berry DO LAB - BLOOD ORDERABLES Final Res ult LABORATORY [facility] [place] Core Lab [facility] * Extra Red Top Tube (03/22/2024 8:45 AM CDT) Hold Specimen [facility] 03/22/2024 10:46 AM CDT LABORATORY Blood BLOOD SPECIMEN / Unknown Venipuncture / Unknown 03/22/2024 8:45 AM CDT 03/22/2024 9:34 AM CDT Ramya Berry DO LAB - BLOOD ORDERABLES Final Res ult LABORATORY [facility] [place] Core Lab [facility], [address] [address] * Extra Blue Top Tube (03/22/2024 8:45 AM CDT) Hold Specimen [facility] 03/22/2024 10:32 AM CDT U LABORATORY Blood BLOOD SPECIMEN / Unknown Venipuncture / Unknown 03/22/2024 8:45 AM CDT 03/22/2024 9:24 AM CDT Ramya Berry DO LAB - BLOOD ORDERABLES Final Res ult LABORATORY [facility] Core Lab [facility], [address] [place] [address] documented in this encounter Visit [...] receive a Nerve Block, verify order with Back Line Cook BEFORE administering. IMPORTANT: IF Patient ONLY receiving [...] EVERY MORNING BEFORE BREAKFAST, First dose on Sun24 at 1800, Separate oral administration of iron- [...] TIMES DAILY, First dose on 03/22/24 at 1999 0837 ($Given - Provider: Yue [...] TIMES DAILY, First dose on 03/22/24 at 2000, Tablets can be crushed and [...] Liliam Garduno, ALLYSON)1725 ($Given - Provider: Nathaniel Rosenberg, ALLYSON) 0443 ($Given - Provider: Latonya Osei, ALLYSON)0825 ($Given - Provider: Shoshana Jaimes, ALLYSON)0940 (Canceled Entry - Provider: Shoshana Jaimes RN)1250 (Auto Hold - Provider: Orders Generic Provider - Reason: Transfer to a procedural area)1740 (Automatically Held - Provider: Orders Generic Provider)1834 (Unhold - Provider: Orders Generic Provider) 0057 (Not Given - Provider: Latonya Osei RN - Reason: Patient sleeping)0846 ($Given - Provider: Shoshana Jaimes, ALLYSON)1740 (Canceled Entry - Provider: Orders Generic Provider [...] CONTINUOUS, Starting on Sun03/25/24 at 1000, Until Tu03/25/24 at 1955 1008 ($New Bag - Provider: Gayle Berry, RN)1519 (Paused - Provider: Saeed Yuen, RN - Comment: Switch to gravity)1520 ($New Bag - Provider: Saeed Yuen, RN)1657 (Anesthesia Volume Adjustment - Provider: Saeed Yuen, RN) PRN Medication Order 03/24/2024 03/25/2024 03/26/2024 [...] procedural area)183 (Unhold - Provider: Orders Generic Provider)1855 ($Given - Provider: Jenna Pablo, RN) 0127 ($Given - Provider: Christina Velásquez, [...] Provider., PACU 1747 ($Given - Provider: Henrique Diaz, ALLYSON) senna-docusate (SENOKOT-S/PERICOLACE) 8.6-50 MG per tablet 1 [...] stools. documented in this encounter Care Teams Claims Support Specialist Relationship Specialty Start Date End Date Feliciano Uribe MD [address] [address] PCP - General Family Medicine 06/01/23 Christina Roe PA-C [address] [place] [address] Physician Hydrogen Power Plant Engineer Rheumatology 11/06/23 Christina Roe PA-C [address] [place] [address] Assigned Rheumatology Provider 11/09/23 documented as of this encounter
--- OUTSIDE RECORDS SUMMARY | 2024-06-24 09:02 | XMS_ITS | Encounter Summary ---
Author Organization [facility] Address [address] [place] [address]. [place] [address] Care Team Providers Care Sales Strategy Manager Name Role Phone Feliciano Uribe MD Primary Care Provider Christina Roe PA-C Unavailable Christina Roe PA-C Unavailable Reason for Visit * Auth/Cert Specialty Diagnoses / Procedures Referred By Amena prasad Referred To Contact EMERGENCY MEDICINE Diagnoses Temporal arteritis (H) PMR (polymyalgia rheumatica) (H24) Decreased vision of right eye Right temporal headache Neck pain [facility] Emergency Department [address] [place] [address] Phone: tel: Referral ID Status Reason Start Date Expiration Date Visits Re quested Visits Authorized [id number] 1 1 Encounter Details Date Type Department Care Team (Late st Contact Info) Description 03/25/2024 3:10 PM CDT Anesthesia Event [facility] PeriOp Services [address] [place] [address] Shari Mckeon MD [address] [place] [address] Jeffrey Kelsey APRN CAMBERING 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 [address] [place] [address] [id number] Anesthesia Record Procedure Summary Procedure Name Responsible Anesthesiologist Anesthesia Start Time Anesthesia Stop Time Bilateral temporal Artery Biopsy (Bilateral: Head) Shari Mckeon MD 03/25/24 1510 03/25/24 1709 Events Date Time Event Comment 03/25/2024 1330 CAMBERING 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 Ready for Procedure 1501 1510 An Start [...] All extubation criteria met prior to removal. 1656 Quick Note Noted R hematom a at surgical site. Surgery assessing, planning on holding pressure for [address] to PACU and placing pressure dressing. 1657 an stop data 1709 An Stop Electronically signed by Wandy Ulloa APRN CAMBERING 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 on March 25, 2024 5:09 PM Meds [...] Lower forearm; Chlorhexidine; None; Tolerated well 03/24/24 171 by Zuly Gomez 03/26/242004 by Inpatient, Nurse ETT Placement Date: 03/25/24; Placement Time: 1523 (created via procedure documentation); Mask Ventilation: 1; Induction Type: Intravenous; Ease of Intubation: Easy; Technique: Direct laryngoscopy; Tube Size: 7 mm; DL Blade Size: Frausto 2; Grade View: 1; Adjucts: Stylet; Placement Person: CAMBERING 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, CAMBERING 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 Student; Attempts: 1 03/25/24 1523 by Shari [...] on file Legal Sex Female 3:41 AM PAINTER HELPER SPRAY Gender Identity Not on file Sexual Orientation [...] Resp 21 03/25/24 1824 SpO2 96 % 03/25/24 1824 Vitals shown include unfiled device data. Electronically Signed By: Brenda Nunn MD March 25, 2024 6:33 PM * Anesthesia Procedure Notes - Saeed Yuen RN - 03/25/2024 3:51 PM CDT Associated Order(s): Airway Airway Patient location during procedure: OR Procedure Start/Stop Times: 03/25/2024 3:23 PM Staff - CAMBERING 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: Margarita Gracia APRN CRNA Other Anesthesia Staff: Saeed Yuen RN Performed By: CAMBERING 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 and SRNA Consent for Airway Urgency: elective [...] and realistic alternatives discussed. Questions answered and patient/pharmaceutical sales representative(s) expressed understanding. - Discussed: - Discussed [...] Notes * Anesthesia Care Transfer Note - Wadny Ulloa APRN CAMBERING 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 - 03/25/2024 5:06 PM CDT Patient: Gato [...] st Contact Info) Description 07/08/2024 9:30 AM PAINTER HELPER SPRAY Virtual Visit [facility] Rheumatology [facility] 1600 [facility] [address] [place] [phone] Zhane Crain MD [address] [place] [address] Richie Rowell, [facility] [address] [place] [address] 07/31/2024 2:00 PM PAINTER HELPER SPRAY Office Visit [facility] [address] [facility] [address] [place] [phone] Christina Roe PA-C [address] [place] [address] documented as of this encounter Procedures Procedure [...] Times: 03/25/2024 3:23 PM Staff - ? CAMBERING 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: Margarita Gracia APRN CRNA ? Other Anesthesia Staff: Saeed Yuen RN ? Performed By: CAMBERING 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 and SRNA Consent for Airway ? [...] Medication Administration Time: 03/25/2024 3:23 PM Shari LOFTON ANESTHESIA Final Result documented in this encounter Visit Diagnoses Not [...] hours after pre-op dose., Indications: Perioperative Pharmacoprophylaxis, Pre-procedureIndications:Perioperat johnny Pharmacoprophylaxis $Given 03/25/2024 3:25 PM CDT 2 g [...] mg documented in this encounter Care Teams Sales Strategy Manager Relationship Specialty Start Date End Date Ailabouni, Feliciano, MD [facility] - [address] [address] PCP - General Family Medicine 06/01/23 Christina Roe PA-C [address] [place] [address] Physician Termite Inspector Rheumatology 11/06/23 Christina Roe PA-C [address] [place] [address] Assigned Rheumatology Provider 11/09/23 documented as of this encounter
--- OUTSIDE RECORDS SUMMARY | 2024-06-24 09:02 | XMS_ITS | Encounter Summary ---
Author Organization [facility] Address [address] [place] [address]. [place] [address] Care Team Providers Care Laser Set Up Operator Name Role Phone Feliciano Uribe MD Primary Care Provider [phone] Christina Roe PA-C Unavailable [phone] Christina Roe PA-C Unavailable Richie Rowell [facility] Unavailable Richie Rowell [facility] Unavailable Zhane Crain MD Unavailable Saeed Berry MD Unavailable [phone] Encounter Details Date Type Department Care Team (Late st Contact Info) Description 03/24/2024 Ophth Exam [facility] Services - Eye Care Service Line [address] [place] [address] Lamont Canales MD [address] [place] [address] Social History Tobacco Use Types Packs/Day Years [...] on file Legal Sex Female 3:41 AM THREAD REELER Gender Identity Not on file Sexual Orientation Not on file documented as of this encounter Plan of Treatment Upcoming Encounters Date Type Department Care Team (Late st Contact Info) Description 07/08/2024 9:30 AM THREAD REELER Virtual Visit [facility] Rheumatology [facility] [address] [facility] [address] [place] [address] Zhane Crain MD [address] [place] [address] Richie Rowell RP [address] [place] [address] 07/31/2024 2:00 PM THREAD REELER Office Visit [facility] 29[address] [facility] 200 [place] [phone] Christina Roe PA-C [address] [place] [address] documented as of this encounter Visit Diagnoses Not on filedocumented in this encounter Care Teams Laser Set Up Operator Relationship Specialty Start Date End Date Feliciano Uribe MD [facility] & [address] [address] PCP - General Family Medicine 06/01/23 Christina Roe PA-C [address] [place] [address] Physician Nuclear Security Officer Rheumatology 11/06/23 Christina Roe PA-C [address] [place] [address] Assigned Rheumatology Provider 11/09/23 Richie Rowell [facility] [address] [place] [address] Pharmacist Pharmacist 04/08/24 Richie Rowell [facility] [address] [place] [address] Assigned MTM Pharmacist 04/18/24 Zhane Crain MD [address] [place] [address] Physician Rheumatology 05/14/24 Saeed Berry MD [address] [place] [address] Assigned Surgical Provider 05/19/24 documented as of this encounter
--- OUTSIDE RECORDS SUMMARY | 2024-06-24 09:02 | XMS_ITS | Encounter Summary ---
Author Organization [facility] Address [address] [place] [address] Care Team Providers Care Bakery Demonstrator Name Role Phone Feliciano Uribe MD Primary Care Provider [phone] Christina Roe PA-C Unavailable [phone] Christina Roe PA-C Unavailable [phone] Reason for Referral * Consultation (Routine: Next available opening) - Pending Review Specialty Diagnoses / Procedures Referred By Amena prasad Referred To Contact Rheumatology Diagnoses GCA (giant cell arteritis) (H) Zhane Crain MD [address] [place] [address] Phone: tel: fax: Referral ID Status Reason Start Date Expiration Date V isits Requested Visits Authorized [id number] Pending Review 03/24/2024 03/24/2025 1 1 Question Answer Reason for Referral: Other My Clinical Question Is: GCA, started on prednisone taper, plan to start tocilizumab as outpatient - Plan to FU with Dr Gregg on April 17 at 12:30PM Scheduling Instructions: [facility] Rheumatology Reservoir Engineering Consultant will call you to coordinate your care as prescribed by your provider. A reimbursement representative will call you within 1 business day to help schedule your appointment, or you may contact the Reservoir Engineering Consultant Laboratory Worker at [phone]. Comments Please be aware that coverage of these services is subject to the terms and limitations of your health insurance plan. Call member services at your health plan with any benefit or coverage questions. [facility] Rheumatology Reservoir Engineering Consultant will call you to coordinate your care as prescribed by your provider. A reimbursement representative will call you within 1 business day to help schedule your appointment, or you may contact the Reservoir Engineering Consultant Laboratory Worker at [phone]. * Med Therapy Management (Routine: Next available opening) - Pending Review Specialty Diagnoses / Procedures Referred By Contac t Referred To Contact Pharmacist Diagnoses GCA (giant cell arteritis) (H) Zhane Crain MD [address] [place] [address] Phone: tel: fax: Referral ID Status Reason Start Date Expiration Date V isits Requested Visits Authorized [id number] Pending Review 03/24/2024 03/24/2025 1 1 Question Answer Type of MTM: Specialty Specialty: Rheumatology Course of Action: Other Reason for Referral: 78 yo f with GCA and PMR, on prednisone taper, plan to start on tocilizumab, kindly follow up Comments [facility] Medication Therapy Management department will contact [...] prescription and non-prescription medications (such as vitamins, wxef-czm-uymyqiq medications, and herbals) or a detailed medication list to your appointment. If you have a glucose meter or other home monitoring information, please also bring this to your appointment (i.e. blood glucose log, blood pressure log, pain log, etc.). Encounter Details Date Type Department Care Team ([facility] st Contact Info) Description 03/24/2024 Orders Only [facility] Rhe[facility]ology [facility] [address] [phone] Ashwin Galo MD [address] [place], [place] [address] Temporal arteritis (H) (Primary Dx); GCA (giant [...] on file Legal Sex Female 3:41 AM RECORD SYSTEMS ANALYST Gender Identity Not on file Sexual Orientation Not on file documented as of this encounter Plan of Treatment Upcoming Encounters Date Type Department Care Team (Late st Contact Info) Description 07/08/2024 9:30 AM RECORD SYSTEMS ANALYST Virtual Visit [facility] Rheumatology [facility] [address] [facility] [address] [place] [phone] Zhane Crain MD [address] [place], [place] [phone] Richie Rowell, [facility] 9[address] [place] [address] 07/31/2024 2:00 PM RECORD SYSTEMS ANALYST Office Visit [facility] [address] [facility] [address] [place] [phone] Christina Roe PA-C [address] [place] [address] Scheduled Referrals Name Type Priority Associated Diagnoses Order Schedule Med Therapy Management Referral Referral Routine: Next available opening GCA (giant cell arteritis) (H) Ordered: 03/24/2024 Adult Rheumatology Reservoir Engineering Consultant Referral Referral Routine: Next available opening GCA (giant cell arteritis) (H) Expected: 03/24/2024 (Approximate), Expires: 03/24/2025 documented as of this encounter Visit Diagnoses Diagnosis Temporal arteritis (H)- Primary Giant cell arteritis GCA (giant cell arteritis) (H) Giant cell arteritis documented in this encounter Care Teams Bakery Demonstrator Relationship Specialty Start Date End Date Feliciano Uribe MD [address] [address] PCP - General Family Medicine 06/01/23 Christina Roe PA-C [address] [place] [address] Physician Instrument Shop Supervisor Rheumatology 11/06/23 Christina Roe PA-C [address] [place] [address] Assigned Rheumatology Provider 11/09/23 documented as of this encounter
--- OUTSIDE RECORDS SUMMARY | 2024-06-24 09:02 | XMS_ITS | Encounter Summary ---
Author Organization [facility] Address [address] [place] [address]. [place] [address] Care Team Providers Care Personal Investment Adviser Name Role Phone Feliciano Uribe MD Primary Care Provider Christina Roe PA-C Unavailable Christina Roe PA-C Unavailable Rich[facility] Rowell [facility] Unavailable Richie Rowell [facility] Unavailable Zhane Crain MD Unavailable Saeed Berry MD Unavailable [phone] Encounter Details Date Type Department Care Team (Late st Contact Info) Description 03/23/2024 Ophth Exam [facility] Services - Eye Care Service Line [address] [place] [phone] Lamont Canales MD [address] [place] [phone] Social History Tobacco Use Types Packs/Day Years [...] on file Legal Sex Female 3:41 AM ENGINEER PROCESS Gender Identity Not on file Sexual Orientation Not on file documented as of this encounter Plan of Treatment Upcoming Encounters Date Type Department Care Team (Late st Contact Info) Description 07/08/2024 9:30 AM ENGINEER PROCESS Virtual Visit [facility] Rheumatology [facility] 1600 [facility] [address] [place] [address] Zhane Crain MD [address] [place] [address] Richie Rowell RP [address] [place] [address] 07/31/2024 2:00 PM ENGINEER PROCESS Office Visit [facility] 2945 [facility] 200 [place] [phone] Christina Roe PA-C [address] [place] [address] documented as of this encounter Visit Diagnoses Not on filedocumented in this encounter Care Teams Personal Investment Adviser Relationship Specialty Start Date End Date Feliciano Uribe MD [facility] & [address] [address] PCP - General Family Medicine 06/01/23 Christina Roe PA-C [address] [place] [address] Physician Crop Or Grain Farmworker Rheumatology 11/06/23 Christina Roe PA-C [address] [place] [address] Assigned Rheumatology Provider 11/09/23 [facility] [address] [place] [address] Pharmacist Pharmacist 04/08/24 Rich[facility] Rowell [facility] [address] [place] [address] Assigned MTM Pharmacist 04/18/24 Zhane Crain MD [address] [place] [address] Physician Rheumatology 05/14/24 Saeed Berry MD [address] [place] [address] Assigned Surgical Provider 05/19/24 documented as of this encounter
--- OUTSIDE RECORDS SUMMARY | 2024-06-24 09:03 | XMS_ITS | Encounter Summary ---
Author Organization [facility] [place] Address [address] [place] [address]. [place] [address] Care Team Providers Care Wire Coating Machine Operator Name Role Phone Feliciano Urbie MD Primary Care Provider Christina Roe PA-C Unavailable [phone] Christina Roe PA-C Unavailable Richie Rowell [facility] Unavailable Richie Rowell [facility] Unavailable Zhane Crain MD Unavailable Saeed Berry MD Unavailable [phone] Encounter Details Date Type Department Care Team (Late st Contact Info) Description 03/22/2024 Ophth Exam [facility] Services - Eye Care Service Line [address] [place] [phone] Luis Alberto Anderson MD [address] [place] [address] Social History Tobacco Use Types Packs/Day [...] on file Legal Sex Female 3:41 AM ENVIRONMENTAL PROFESSIONAL Gender Identity Not on file Sexual Orientation Not on file documented as of this encounter Plan of Treatment Upcoming Encounters Date Type Department Care Team (Late st Contact Info) Description 07/08/2024 9:30 AM ENVIRONMENTAL PROFESSIONAL Virtual Visit [facility] Rheumatology [facility] 1600 [facility] [address] [place] [phone] Zhane Crain MD [address] [place] [address] Richie Rowell RPH [address] [place] [address] 07/31/2024 2:00 PM ENVIRONMENTAL PROFESSIONAL Office Visit [facility] 2945 [facility] 200 [place] [phone] Christina Roe PA-C [address] [place] [address] documented as of this encounter Visit Diagnoses Not on filedocumented in this encounter Care Teams Wire Coating Machine Operator Relationship Specialty Start Date End Date Feliciano Uribe MD [facility] & [address] [address] PCP - General Family Medicine 06/01/23 Christina Roe PA-C [address] [place] [address] Physician Outplacement Consultant Rheumatology 11/06/23 Christina Roe PA-C [address] [place] [address] Assigned Rheumatology Provider 11/09/23 Richie Rowell RPH [address] [place] [address] Pharmacist Pharmacist 04/08/24 Richie Rowell [facility] [address] [place] [address] Assigned MTM Pharmacist 04/18/24 Zhane Crain MD [address] [place] [address] Physician Rheumatology 05/14/24 Saeed Berry MD [address] [place] [address] Assigned Surgical Provider 05/19/24 documented as of this encounter
--- OUTSIDE RECORDS SUMMARY | 2024-06-24 09:03 | XMS_ITS | Encounter Summary ---
Author Organization [place] Address [address] [place] [address] Care Team Providers Care Profile Trimmer Name Role Phone Feliciano Uribe MD Primary Care Provider [phone] Christina Roe PA-C Unavailable [phone] Christina Roe PA-C Unavailable [phone] Reason for Visit * Reason Comments RECHECK Encounter Details Date Type Department Care Team (Late st Contact Info) Description 03/20/2024 10:30 AM CDT Office Visit [address] [place] [address] Christina Roe PA-C [address] [place] [address] Polymyalgia rheumatica (H) (Primary Dx); On prednisone therapy; Right sided [...] on file Legal Sex Female 3:41 AM GALLERY OR MUSEUM GUIDE Gender Identity Not on file Sexual Orientation [...] Visit Instructions: Thank you for coming to [facility] for your care. It is my [...] called Giant Cell Arteritis. Christina Roe PA-C [facility] Contact information: [facility] Number: [phone] Please call or send a Funium message with any questions about your care documented in this encounter Progress Notes * Christina Roe PA-C - 03/20/2024 10:30 AM CDT Rheumatology Clinic Visit [facility]IL[facility] Woodard Gato Jimenez Date of : [...] Resource Strain: Low Risk (10/10/2022) Received from [facility], [facility] Overall Financial Resource Strain (CARDIA) Difficulty of Paying Living Expenses: Not hard at all Food Insecurity: No Food Insecurity (10/10/2022) Received from [facility] Hunger Vital Sign Worried About Running Out of Food in the Last Year: Never true Ran Out of Food in the Last Year: Never true Transportation Needs: No Transportation Needs (10/10/2022) Received from [facility] PRAPARE - Transportation Lack of Transportation (Medical): No Lack of Transportation (Non-Medical): No Physical Activity: Insufficiently Active (10/10/2022) Received from [facility] Exercise Vital Sign Days of Exercise per Week: 2 days Minutes of Exercise per Session: 40 min Stress: No Stress Concern Present (10/10/2022) Received from [facility] [place] of Occupational Health - Occupational Stress Questionnaire Feeling of Stress : Only a little Social Connections: Socially Integrated (10/10/2022) Received from [facility] Social Connection and Isolation Panel [NHANES] Frequency of Communication with Friends and Family: Twice a week Frequency of Social Gatherings with Friends and Family: Twice a week Attends Lutheran Services: More than 4 times per year Active Member of Clubs or Organizations: Yes Attends Club or Organization Meetings: 1 to 4 times per year Marital Status: Interpersonal Safety: Not At Risk (10/10/2022) Received from [facility] Humiliation, Afraid, Rape, and Kick questionnaire Fear of Current or Ex-Partner: No Emotionally Abused: No Physically Abused: No Sexually Abused: No Housing Stability: Low Risk (10/10/2022) Received from [facility] Housing Stability Vital Sign Unable to [...] by mouth at bedtime D3-50 1.25 MG (84964 UT) capsule Take 1,250 mcg by mouth [...] st Contact Info) Description 07/08/2024 9:30 AM GALLERY OR MUSEUM GUIDE Virtual Visit [facility] [address] [facility] [address] [place] [phone] Zhane Crain MD [address] [place] [address] [facility] [address] [place] [address] 07/31/2024 2:00 PM GALLERY OR MUSEUM GUIDE Office Visit [facility] [place] [facility] [address] [facility] [place] [facility] [address] [place] [phone] Christina Roe PA-C [address] [place] [address] documented as of this encounter Visit Diagnoses Diagnosis Polymyalgia rheumatica (H)- Primary Polymyalgia rheumatica On prednisone therapy Right sided temporal headache Headache documented in this encounter Care Teams Profile Trimmer Relationship Specialty Start Date End Date Feliciano Uribe MD [facility] [address] [place] [address] PCP - General Family Medicine 06/01/23 Christina Roe PA-C [address] [place] [address] Physician Composing Machine Operator/Tender Rheumatology 11/06/23 Christina Roe PA-C [address] [place] [address] Assigned Rheumatology Provider 11/09/23 documented as of this encounter
--- OUTSIDE RECORDS SUMMARY | 2024-06-24 09:03 | XMS_ITS | Encounter Summary ---
Author Organization [place] Address [address] [place] [address] Care Team Providers Care Linting Machine Operator Name Role Phone Feliciano Uribe MD Primary Care Provider Christina Roe PA-C Unavailable Christina Roe PA-C Unavailable Richie Rowell [facility] Unavailable Richie Rowell [facility] Unavailable Zhane Crain MD Unavailable Saeed Berry MD Unavailable [phone] Encounter Details Date Type Department Care Team (Late st Contact Info) Description 04/24/2013 Abstract [facility] [place] [facility] [address] [place] [phone] [facility] [address] [facility] [address] [place] [address] Social History Tobacco Use Types Packs/Day Years Used Date Smoking Tobacco: Never Assessed Comments Unknown Sex and Gender Information Value Date Recorded Sex Assigned at Not on file Legal Sex Female 3:41 AM NEWSROOM INTERN Gender Identity Not on file Sexual Orientation Not on file documented as of this encounter Plan of Treatment Upcoming Encounters Date Type Department Care Team (Late st Contact Info) Description 07/08/2024 9:30 AM NEWSROOM INTERN Virtual Visit [facility] Rheumatology [facility] [address] [facility] [address] [place] [phone] Zhane Crain MD [address] [place] [address] Richie Rowell RPH [address] [place] [address] 07/31/2024 2:00 PM NEWSROOM INTERN Office Visit [facility] [address] [facility] [address] [place] [phone] Christina Roe PA-C [address] [place] [address] documented as of this encounter Visit Diagnoses Not on filedocumented in this encounter Care Teams Linting Machine Operator Relationship Specialty Start Date End Date Feliciano Uribe MD [address] [address] PCP - General Family Medicine 06/01/23 Christina Roe PA-C [address] [place] [address] Physician Grinder And Plater Rheumatology 11/06/23 Christina Roe PA-C [address] [place] [address] Assigned Rheumatology Provider 11/09/23 Richie Rowell RPH [address] [place] [address] Pharmacist Pharmacist 04/08/24 Richie Rowell RPH [address] [place] [address] Assigned MTM Pharmacist 04/18/24 Zhane Crain MD [address] [place] [address] Physician Rheumatology 05/14/24 Saeed Berry MD [address] [place] [address] Assigned Surgical Provider 05/19/24 documented as of this encounter
--- OUTSIDE RECORDS SUMMARY | 2024-06-24 09:03 | XMS_ITS | Referral Summary ---
Author Organization [facility] Address [address] [place] [address] Care Team Providers Care Cage Unloader Name Role Phone Unavailable Primary Care Provider Unavailabl e Source Comments Patient records contain information from all sites at [facility]. For routine questions regarding patient records, call [phone] during business hours, M-F 8:00 AM - 5:00 PM Central Time. Record requests for emergency care only can be directed to [phone] at any time.[facility] Allergies No known active allergies Medications * This document contains information received from the source organization and may not represent a complete record from that organization. nitroglycerin (NITROSTAT) 0.[address] 1 tablet under the tongue daily as needed. Place 1 tab under tongue at first sign of angina. Repeat in 5 min until relief. Max 3 tab/15 min. 02/05/13-has only needed to take this once in past 2 weeks. One tab relieved sx. 3 Active atorvastatin (LIPITOR) 10 mg tablet daily. 0 8 Active calcium carbonate (OS-CALDERON) 1,250 mg (500 mg calcium) tablet Take 500 mg of calcium by mouth 2 (two) times a day. Oyster shell calcium 9 Active predniSONE (DELTASONE) 20 mg tablet as needed. For gout when needed 9 Active FLUoxetine (PROzac) 40 mg capsule Take 40 mg by mouth daily. 9 Active lisinopriL (PRINIVIL,ZESTR IL) 10 mg tablet Take 1 tablet by mouth daily. 0 Active levothyroxine (SYNTHROID, LEVOTHROID) 175 mcg tablet Take 1 tablet by mouth daily. 0 Active multivitamin (THERAGRAN) tablet Take 1 tablet by mouth 2 (two) times a day. 0 Active metoprolol succinate (TOPROL-XL) 50 mg 24 hr tablet Take 50 mg by mouth daily. 3 Active cholecalciferol (VITAMIN D3) 1,250 mcg (50,000 Unit) capsule Take 50,000 Units by mouth once a week. 2 Active cyanocobalamin, vitamin B-12, (B-12 KIT INJ) Inject 1,000 mcg as directed every 30 (thirty) days. Through primary care clinic Active cholecalciferol (VITAMIN D3) 1,250 mcg (50,000 Unit) capsuleIndicati ons:Bypass Gastric Suellen En Y Status Post Take 1 capsule (50,000 Units total) by mouth 2 (two) times a week. If refills required, please reach out to primary care provider 24 capsule 3 3 Active omeprazole (PriLOSEC) [address] capsule Take 1 capsule (40 mg total) by mouth 2 (two) times a day before breakfast and dinner. Open capsule onto a bite of applesauce 180 capsule 3 Active Active Problems Problem Noted Date Diagnosed [...] How often do you attend chur or judaism services? More than 4 times per year 10/10/2022 Do you belong to any clubs o r organizations such as congregation groups, unions, fraternal or athletic groups, or [...] and heating? Not hard at all 10/10/2022 [facility] [place] of Occupat ional Health - Occupational Stress [...] to sleep or slept in a senior living (including now)? No 10/10/2022 Nutrition Answer Date Recorded On average, how many serving s of [...] degree: occupational, technical, or vocational program 10/10/2022 Comments No Sex and Gender Information Value Date Recorded Sex Assigned at Female 10/10/2022 4:07 PM SALESPERSON [employer] AND GLASSWARE Legal Sex Female 6:05 AM SALESPERSON [employer] Gender Identity Female 07/16/2018 12:55 PM SALESPERSON [employer]WARE Sexual Orientation Straight 07/16/2018 12 :55 PM SALESPERSON [employer] Last Filed Vital Signs Vital Sign Reading Time Taken Comments Blood Pressure 163/73 10/31/2022 12:17 PM SALESPERSON [employer]ASSWARE Pulse 75 10/31/2022 12:17 PM SALESPERSON [employer] GLASSWARE Temperature 36.5 ??C (97.7 ??F) 10/31/2022 1 2:27 PM SALESPERSON [employer]ASSWARE Respiratory Rate 20 10/31/2022 12:1 7 PM SALESPERSON [employer]ASSWARE Oxygen Saturation 96% 10/31/2022 12: 17 PM SALESPERSON [employer] AND GLASSWARE Inhaled Oxygen Concentration - - Weight 55.2 kg (121 lb 11.1 oz) 11/01/2022 9:18 AM SALESPERSON [employer]WARE Height 152 cm (4' 11.84) 11/01/2022 9:18 AM SALESPERSON [employer] AND [employer]WARE Body Mass Index 23.89 11/01/2022 9:18 AM SALESPERSON [employer] AND GLASSWARE Plan of Treatment Not on file Medical Devices Implanted Type Area Hairspring Assembler Device Identifier Shelf Expiration Date Model / Serial / Lot Knee Implant- [id number] Implanted:01/2022 (Quantity not on file) Knee Implant Right: Knee Ocular Lens Ocular Lens Bilatera l: Eye Procedures Procedure Name Priority Date/Time Associated Diagnosis Comments COMPREHENSIVE METABOLIC PANEL, S/P Routine 10/17/2022 10:01 AM SALESPERSON [employer] [employer] GLASS[employer] 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, S Routine 06/23/2019 10:25 AM CDT Overweight Body Mass Index 25-29.9 Adult Hypertension Essential Primary Hyperlipidemia Family History Coronary Artery Disease Elevated Liver Enzyme Abnormal, Aspartate Transaminase, Serum Glutamic-Oxaloacetic Transaminase, Alanine Transaminase Hypothyroidism Primary from Last 3 Months or Most Recently Relevant to Health Maintenance Results * (ABNORMAL) Thyroid Function [place] (06/23/2019 10:25 AM CDT) TSH, Sensitive 6.0(H) 0.3 - 4.2 mIU/L 06/24/2019 8:43 AM CDT DTL Blood (Blood, Venous) 06/23/2019 10:25 AM CDT 06/24/2019 7:34 AM CDT Narrative Resulting Agency Comment Mailed In Specimen us Sony Rodriguez APRN, C.N.P., D.N.P. LAB BLOOD A DD-ON Final Result [facility] [address] [place] [address], [place] DTL [facility] [address] [place] [address] from Last 3 Months or Most Recently Relevant to Health Maintenance Insurance MEDICARE [facility]
--- OUTSIDE RECORDS SUMMARY | 2024-06-24 09:03 | XMS_ITS | Clinical Summary ---
Author Organization [facility] Address [address] [place] [address] Care Team Providers Care Inseam Trimmer Name Role Phone Unavailable Primary Care Provider Unavailabl e Source Comments Patient records contain information from all sites at [facility]. For routine questions regarding patient records, call [phone] during business hours, M-F 8:00 AM - 5:00 PM Central Time. Record requests for emergency care only can be directed to [phone] at any time.[facility] Allergies No known active allergies Medications * [...] week 10/10/2022 How often do you attend [facility] or presybeterian services? More than 4 times per year 10/10/2022 Do you belong to any clubs o r organizations such as hinduism groups, unions, fraternal or athletic groups, or [...] and heating? Not hard at all 10/10/2022 [facility] [place] of Occupat ional Health - Occupational Stress [...] place to sleep or slept in a assisted (including now)? No 10/10/2022 Nutrition Answer Date [...] Sex Assigned at Female 10/10/2022 4:07 PM WATCH REPAIRER Legal Sex Female 6:05 AM WATCH REPAIRER Gender Identity Female 07/16/2018 12:55 PM WATCH REPAIRER Sexual Orientation Straight 07/16/2018 12 :55 PM WATCH REPAIRER Last Filed Vital Signs Vital Sign Reading Time Taken Comments Blood Pressure 163/73 10/31/2022 12:17 PM WATCH REPAIRER Pulse 75 10/31/2022 12:17 PM WATCH REPAIRER Temperature 36.5 ??C (97.7 ??F) 10/31/2022 1 2:27 PM WATCH REPAIRER Respiratory Rate 20 10/31/2022 12:1 7 PM WATCH REPAIRER Oxygen Saturation 96% 10/31/2022 12: 17 PM WATCH REPAIRER Inhaled Oxygen Concentration - - Weight 55.2 kg (121 lb 11.1 oz) 11/01/2022 9:18 AM WATCH REPAIRER Height 152 cm (4' 11.84) 11/01/2022 9:18 AM WATCH REPAIRER Body Mass Index 23.89 11/01/2022 9:18 AM WATCH REPAIRER Plan of Treatment Health Maintenance Due Date Last Done Comments Hepatitis C Screening 1945 Hepatitis A Vaccines (1 of 2 - Risk 2-dose series) 1965 Zoster Vaccines (1 of 2) 1965 Hepatitis B Vaccines (1 of 3 - Risk 3-dose series) 2006 RSV vaccine - (32-3 6 weeks) or 60+ years (1 - 1-dose 75+ series) 2021 Office Visit for Blood Press ure Check / Re-check 01/14/2023 10/17/2022 Depression Screening (Annual PHQ-2) 08/27/2023 Fall Risk Screen (Annual) 08/27/2023 COVID-19 Vaccine (4 - 2023-2 5 season) 2024 05/14/2022, 11/12/2020, 10/15/2020 Influenza Vaccine (#1) 2024 , 05/07/2022, 07/19/2021, Additional history exists Thyroid Stimulating Hormone (TSH) test for thyroid function 03/22/2025 03/22/2024, 07/26/2022, 06/23/2019, Additional history exists Potassium Level 03/26/2025 03/26/2024, 3 , 03/24/2024, Additional history exists Sodium Level 03/26/2025 03/26/2024, 02/26, 03/24/2024, Additional history exists Creatinine Level (Kidney Fun ction Test) 04/17/2025 04/17/2024, 03/26/2024, 03/25/2024, Additional history exists DTaP,Tdap,and Td Vaccines (5 - Td or Tdap) 11/22/2031 11/21/2021, 05/02/2012, 03/10/2005, Additional history exists Colonoscopy Discontinued 08/27/2003 (Perf ormed elsewhere) Colorectal Cancer Screening Discontinued Mammogram Discontinued 05/27/2012 (Perf ormed elsewhere), 04/29/2012 (Performed elsewhere) Pneumococcal vaccine (65+ years) Completed 01/12/2015, 11/28/2013, 08/27/2007 CT Colonography Discontinued Cologuard Discontinued FIT Discontinued Medical Devices Implanted Type Area Configuration Specialist Device Identifier Shelf Expiration Date Model / Serial / Lot Knee Implant- [id number] Implanted:0 01/2022 (Quantity not on file) Knee Implant Right: Knee Ocular Lens Ocular Lens Bilatera l: Eye Procedures Procedure Name Priority Date/Time Associated Diagnosis Comments COMPREHENSIVE METABOLIC PANEL, S/P Routine 10/17/2022 10:01 AM WATCH REPAIRER 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, S Routine 06/23/2019 10:25 AM CDT Overweight Body Mass Index 25-29.9 Adult Hypertension Essential Primary Hyperlipidemia Family History Coronary Artery Disease Elevated Liver Enzyme Abnormal, Aspartate Transaminase, Serum Glutamic-Oxaloacetic Transaminase, Alanine Transaminase Hypothyroidism Primary from Last 3 Months or Most Recently Relevant to Health Maintenance Results * (ABNORMAL) Thyroid Function [place] (06/23/2019 10:25 AM CDT) TSH, Sensitive 6.0(H) 0.3 - 4.2 mIU/L 06/24/2019 8:43 AM CDT DTL Blood (Blood, Venous) 06/23/2019 10:25 AM CDT 06/24/2019 7:34 AM CDT Narrative Resulting Agency Comment Mailed In Specimen us Sony Rodriguez APRN, C.N.P., D.N.P. LAB BLOOD A DD-ON Final Result [facility] [address] [place] [address], [place] DTL [facility] [address] [place] [address] from Last 3 Months or Most Recently Relevant to Health Maintenance Insurance MEDICARE [facility]
--- OUTSIDE RECORDS SUMMARY | 2024-06-24 09:03 | XMS_ITS | Encounter Summary ---
Author Organization [facility] Address [address] [place] [address] Care Team Providers Care Waste Baler Name Role Phone Feliciano Uribe MD Primary Care Provider [phone] Chritsina Roe PA-C Unavailable Christina Roe PA-C Unavailable Richie Rowell [facility] Unavailable Richie Rowell [facility] Unavailable Zhane Crain MD Unavailable Saeed Berry MD Unavailable [phone] Encounter Details Date Type Department Care Team (Late st Contact Info) Description 01/21/2024 MyC Medical Advice [address] [place] [address] Christina Roe PA-C [address] [place] [address] Social History Tobacco Use Types Packs/Day Years [...] on file Legal Sex Female 3:41 AM DOOR CLAMP OPERATOR Gender Identity Not on file Sexual Orientation Not on file documented as of this encounter Plan of Treatment Upcoming Encounters Date Type Department Care Team (Late st Contact Info) Description 07/08/2024 9:30 AM DOOR CLAMP OPERATOR Virtual Visit [facility] Rheumatology [facility] [address] [facility] [address] [place] [phone] Zhane Crain MD [address] [place], [place] [address] Richie Rowell [facility] [address] [place] [address] 07/31/2024 2:00 PM DOOR CLAMP OPERATOR Office Visit [facility] [address] [facility] [address] [place] [phone] Christina Roe PA-C [address] [place] [address] documented as of this encounter Visit Diagnoses Not on filedocumented in this encounter Care Teams Waste Baler Relationship Specialty Start Date End Date Feliciano Uribe MD [address] [address] PCP - General Family Medicine 06/01/23 Christina Roe PA-C [address] [place] [address] Physician Colorer Machine Rheumatology 11/06/23 Christina Roe PA-C [address] [place] [address] Assigned Rheumatology Provider 11/09/23 Richie Rowell [facility] [address] [place] [address] Pharmacist Pharmacist 04/08/24 Richie Rowell RPH [address] [place] [address] Assigned MTM Pharmacist 04/18/24 Zhane Crain MD [address] [place] [address] Physician Rheumatology 05/14/24 Saeed Berry MD [address] [place] [address] [address] [place] [address] Assigned Surgical Provider 05/19/24 documented as of this encounter
--- OUTSIDE RECORDS SUMMARY | 2024-06-24 09:03 | XMS_ITS | Encounter Summary ---
Author Organization [place] Address [address] [place] [address] Care Team Providers Care Charge Master Specialist Name Role Phone Feliciano Uribe MD Primary Care Provider [phone] Christina Roe PA-C Unavailable Christina Roe PA-C Unavailable Rcihie Rowell [facility] Unavailable Richie Rowell [facility] Unavailable Zhane Crain MD Unavailable Saeed Berry MD Unavailable [phone] Reason for Visit * Reason Onset Date Comments Appointment 10/23/2023 Encounter Details Date Type Department Care Team (Late st Contact Info) Description 10/23/2023 MyC Medical Advice [address] [place] [address] Christina Roe PA-C [address] [place] [address] Appointment Social History Tobacco Use Types Packs/Day Years Used Date Smoking Tobacco: Never Assessed Adolescent Education Answer Date Record ed Getting School Help Needed Not on file 05/31 Comments Unknown Sex and Gender Information Value Date Recorded Sex Assigned at Not on file Legal Sex Female 3:41 AM CANAL EQUIPMENT MECHANIC Gender Identity Not on file Sexual Orientation Not on file documented as of this encounter Miscellaneous Notes * Telephone Encounter - Shayy Michelle - 11/20/2023 11:57 AM CDT LVM * Telephone Encounter - Brenda Hartley - 11/05/2023 12:04 PM CDT Lvm x2 * Telephone Encounter - Brenda Hartley - 10/23/2023 3:24 PM CST lvm L EQUIPMENT MECHANIC * Telephone Encounter - Smiley Perez - 10/23/2023 2:23 PM CST [facility] Phone Message May a detailed message be left on voicemail: yes Reason for Call: Other: Patient called to schedule 1 month follow up appt per previous communication w/ Christina expert medical writer tried to schedule but did not see any available appts for Christina until 12/26. Please advise. Action Taken: Other: RHEUM Travel Screening: Not Applicable L EQUIPMENT MECHANIC * Telephone Encounter - Jonelle Aguirre, RN - 10/23/2023 8:45 AM CST To provider to review and advise, I do not see any new medication that pt is referring to. Jonelle Aguirre [facility] RN L EQUIPMENT MECHANIC documented in this encounter Plan of Treatment Upcoming Encounters Date Type Department Care Team (Late st Contact Info) Description 07/08/2024 9:30 AM CANAL EQUIPMENT MECHANIC Virtual Visit [facility] Rheumatology [facility] [address] [facility] [address] [place] [address] Zhane Crain MD [address] [place] [address] Richie Rowell RPH [address] [place] [address] 07/31/2024 2:00 PM CANAL EQUIPMENT MECHANIC Office Visit [address] [place] [address] Christina Roe PA-C [address] [place] [address] documented as of this encounter Visit Diagnoses Diagnosis Polyarthralgia- Primary Pain in joint, multiple sites Myalgia Mylagia and myositis, unspecified documented in this encounter Care Teams Charge Master Specialist Relationship Specialty Start Date End Date Feliciano Uribe MD [address] [address] PCP - General Family Medicine 06/01/23 Christina Roe PA-C [address] [place] [address] Physician Plodding Operator Rheumatology 11/06/23 Christina Roe PA-C [address] [place] [address] Assigned Rheumatology Provider 11/09/23 Richie Rowell RPH [address] [place] [address] Pharmacist Pharmacist 04/08/24 Richie Rowell RPH [address] [place] [address] Assigned MTM Pharmacist 04/18/24 Zhane Crain MD [address] [place] [address] Physician Rheumatology 05/14/24 Saeed Berry MD [address] [place] [address] Assigned Surgical Provider 05/19/24 documented as of this encounter
--- OUTSIDE RECORDS SUMMARY | 2024-06-24 09:03 | XMS_ITS | Clinical Summary ---
Author Organization [facility] Address [place], [place] [address] Care Team Providers Care Ware Dresser Name Role Phone Feliciano Uribe MD Primary Care Provider [phone] Allergies No known active allergies Medications Medication [...] directed 1 Drop four times daily. Active WalkerIndications :Arthritis of knee, right Walker with front wheels [...] mcg) by mouth once daily. 09/12/2023 Active amLODIPine (NORVASC) 5 mg tabletIndications :Hypertension, unspecified type Take 1 Tablet (5 mg) by mouth once daily. 90 Tablet 3 12/11/2023 Active metoprolol tartrate (LOPRESSOR) 25 mg tabletIndications :SVT (supraventricular tachycardia) (HC) TAKE 1 TABLET(25 MG) BY MOUTH TWICE DAILY 180 Tablet 1 06/16/2024 Active lisinopriL (PRINIVIL; ZESTRIL) 10 mg tabletIndications :Hypertension TAKE 1 TABLET(10 MG) BY MOUTH TWICE DAILY 180 Tablet 06/16/2024 Active lisinopriL (PRINIVIL; ZESTRIL) 10 mg tabletIndications :Hypertension Take 1 Tablet (10 mg) by mouth two times daily. 180 Tablet 3 09/14/2023 4 Discontinued metoprolol tartrate (LOPRESSOR) 25 mg tabletIndications :SVT (supraventricular tachycardia) (HC) Take 1 Tablet (25 mg) by mouth two times daily. 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 07/22/2022 CAD (coronary artery disease) 04/07/2019 Hyperlipidemia 04/07/2019 Hypothyroidism 04/07/2019 Primary osteoarthritis of both ankles 04/07/2019 Pseudogout 04/07/2019 Anxiety 04/07/2019 Primary hypertension Gastric bypass status for obesity Encounters Date Type Department Care Team Description 06/15/2024 Refill [facility] [address] [place] [address] Ethan Abrams MD Refill Request (Metoprolol Tartrate, Lisinopril) 05/27/2024 Transcribe Orders [facility] [place] [address] [place] [address] Rubin Mancera MD from Last 3 Months Social History [...] 36.7 ??C (98 ??F) 07/27/2022 4:00 PM [employer] Respiratory Rate 16 07/27/2022 4:00 PM [employer] Oxygen Saturation 98% 12/11/2023 8:25 AM CDT Inhaled Oxygen Concentration - - Weight 65.5 kg (144 lb 4.8 oz) 12/11/2023 8:25 A M CDT Height 177.8 cm (5' 10) 07/22/2022 1:00 PM [employer] Body Mass Index 20.7 07/22/2022 1:00 PM [employer] Plan of Treatment Upcoming Encounters Date Type Department Care Team (Latest Contact Info) Description 07/09/2024 7:55 AM [employer] Hospital Encounter [address] [address] Rubin Mancera MD [address] [address] 07/09/2024 9:55 AM [employer] - 07/09/2024 11:50 AM [employer] Surgery [address] [address] Rubin Mancera MD [address] [address] LEFT TOTAL KNEE ARTHROPLASTY Scheduled Procedures Name Priority Associated Diagnoses Date/Ti me ARTHROPLASTY KNEE 07/09/2024 9:55 AM [employer] Health Maintenance Due Date Last Done Comments [...] 65+ (1 of 1 - PCV) 2011 RSV vaccine for adults or pr egnancy (1 - 1-dose 75+ series) 2021 COVID-19 vaccine series (3 - 2023-25 season) 2024 11/12/2020, 10/15/2020 Influenza for age 65+ 04/27/2024 Advance Directives * Full Code (Latest Code Status on File) Date Activated Date Inactivated Comments 07/22/2022 1:18 PM 07/27/2022 7:46 PM Question Answer Comments Code Status Discussion: Reviewed Preferences Care Teams Ware Dresser Relationship Specialty Start Date End Date Feliciano Uribe MD [address] [place] [address] PCP - General Family Practice 09/01/22
--- OUTSIDE RECORDS SUMMARY | 2024-06-24 09:03 | XMS_ITS | Encounter Summary ---
Author Organization [facility] Address [address] [place] [address] Care Team Providers Care Assembler Insulator Name Role Phone Feliciano Uribe MD Primary Care Provider [phone] Christina Roe PA-C Unavailable [phone] Christina Roe PA-C Unavailable [phone] Encounter Details Date Type Department Care Team (Late st Contact Info) Description 03/17/2024 [facility] Medical Advice [address] [place] [address] Christina Roe PA-C [address] [place] [address] Social History Tobacco Use Types Packs/Day Years [...] on file Legal Sex Female 3:41 AM NEEDLE LOOM OPERATOR HELPER Gender Identity Not on file Sexual Orientation Not on file documented as of this encounter Miscellaneous Notes * Telephone Encounter - Christina Roe PA-C - 03/19/2024 1:22 PM CDT Message reviewed. Christina Roe, MAURILIO documented in this encounter Plan of Treatment Upcoming Encounters Date Type Department Care Team (Late st Contact Info) Description 07/08/2024 9:30 AM NEEDLE LOOM OPERATOR HELPER Virtual Visit [facility] Rheumatology [facility] [address] [place] [phone] Zhane Crain MD [address] [place] [address] [facility] [address] [place] [address] 07/31/2024 2:00 PM NEEDLE LOOM OPERATOR HELPER Office Visit [facility] [address] [facility] [address] [place] [phone] Christina Roe PA-C [address] [place] [address] documented as of this encounter Visit Diagnoses Not on filedocumented in this encounter Care Teams Assembler Insulator Relationship Specialty Start Date End Date Feliciano Uribe MD [facility] [address] [place] [address] PCP - General Family Medicine 06/01/23 Christina Roe PA-C [address] [place] [address] Physician Driver Engineer Rheumatology 11/06/23 Christina Roe PA-C [address] [place] [address] Assigned Rheumatology Provider 11/09/23 documented as of this encounter
--- OUTSIDE RECORDS SUMMARY | 2024-06-24 09:03 | XMS_ITS | Encounter Summary ---
Author Organization [place] Address [address] [place] [address] Care Team Providers Care Director Of Head Start Name Role Phone Feliciano Uribe MD Primary Care Provider Christina Roe PA-C Unavailable Christina Roe PA-C Unavailable [phone] Encounter Details Date Type Department Care Team [...] on file Legal Sex Female 3:41 AM CORE ANALYSIS OPERATOR Gender Identity Not on file Sexual Orientation Not on file documented as of this encounter Plan of Treatment Upcoming Encounters Date Type Department Care Team (Late st Contact Info) Description 07/08/2024 9:30 AM CORE ANALYSIS OPERATOR Virtual Visit [facility] Rheumatology [facility] [address] [facility] [address] [place] [address] Zhane Crain MD [address] [place] [address] [facility] [address] [place] [address] 07/31/2024 2:00 PM CORE ANALYSIS OPERATOR Office Visit [facility] [address] [facility] [address] [place] [address] Christina Roe PA-C [address] [place] [address] documented as of this encounter Visit Diagnoses Not on filedocumented in this encounter Care Teams Director Of Head Start Relationship Specialty Start Date End Date Feliciano Uribe MD [facility] [address] [place] [address] PCP - General Family Medicine 06/01/23 Christina Roe PA-C [address] [place] [address] Physician Manager Internal Rheumatology 11/06/23 Christina Roe PA-C [address] [place] [address] Assigned Rheumatology Provider 11/09/23 documented as of this encounter
--- OUTSIDE RECORDS SUMMARY | 2024-06-24 09:03 | XMS_ITS ---
Author Organization [facility] Address [address] [place] [address] Care Team Providers Care Picker Packer Name Role Phone Unavailable Unavailable Unavailable Surgery Details Not on file Complications Check Surgery Details section. Procedure Estimated Blood Loss Check Surgery Details section. Procedure Findings Check Surgery Details section. Procedure Specimens Taken Check Surgery Details section.
--- OUTSIDE RECORDS SUMMARY | 2024-06-24 09:03 | XMS_ITS | Encounter Summary ---
Author Organization [facility] Address [address] [place] [address] Care Team Providers Care Search Coordinator Name Role Phone Feliciano Uribe MD Primary Care Provider Christina Roe PA-C Unavailable [phone] Christina Roe PA-C Unavailable Richie Rowell [facility] Unavailable Richie Rowell [facility] Unavailable Zhane Crain MD Unavailable Saeed Berry MD Unavailable [phone] Encounter Details Date Type Department Care Team (Late st Contact Info) Description 02/15/2024 [facility] Medical Advice [address] [place] [address] Christina Roe PA-C [address] [place] [address] Polymyalgia rheumatica (H) (Primary Dx) Social History Tobacco Use Types [...] on file Legal Sex Female 3:41 AM BEEF TRIMMER Gender Identity Not on file Sexual Orientation Not on file documented as of this encounter Plan of Treatment Upcoming Encounters Date Type Department Care Team (Late st Contact Info) Description 07/08/2024 9:30 AM BEEF TRIMMER Virtual Visit [facility] Rheumatology [facility] [address] [facility] [address] [place] [phone] Zhane Crain MD [address] [place] [address] [facility] [address] [place] [address] 07/31/2024 2:00 PM BEEF TRIMMER Office Visit [facility] [address] [facility] [address] [place] [phone] Christina Roe PA-C [address] [place] [address] documented as of this encounter Visit Diagnoses Diagnosis Polymyalgia rheumatica (H)- Primary Polymyalgia rheumatica documented in this encounter Care Teams Search Coordinator Relationship Specialty Start Date End Date Feliciano Uribe MD [facility] - [address] [address] PCP - General Family Medicine 06/01/23 Christina Roe PA-C [address] [place] [address] Physician Assistant Professor Of English Rheumatology 11/06/23 Christina Roe PA-C [address] [place] [address] Assigned Rheumatology Provider 11/09/23 Richie Rowell [facility] [address] [place] [address] Pharmacist Pharmacist 04/08/24 Richie Rowell [facility] [address] [place] [address] Assigned MTM Pharmacist 04/18/24 Zhane Crain MD [address] [place] [id number] Physician Rheumatology 05/14/24 Saeed Berry MD [address] [place] [id number] Assigned Surgical Provider 05/19/24 documented as of this encounter
--- OUTSIDE RECORDS SUMMARY | 2024-06-24 09:03 | XMS_ITS | Encounter Summary ---
Author Organization [facility] Address [address] [place] [address] Care Team Providers Care Berry Grower Name Role Phone Feliciano Uribe MD Primary Care Provider Christina Roe PA-C Unavailable [phone] Christina Roe PA-C Unavailable [phone] Encounter Details Date Type Department Care Team [...] on file Legal Sex Female 3:41 AM RETORT FIRER Gender Identity Not on file Sexual Orientation Not on file documented as of this encounter Plan of Treatment Upcoming Encounters Date Type Department Care Team (Late st Contact Info) Description 07/08/2024 9:30 AM RETORT FIRER Virtual Visit [facility] Rheumatology [facility] [address] [facility] [address] [place] [address] Zhane Crain MD [address] [place] [address] [facility] [address] [place] [address] 07/31/2024 2:00 PM RETORT FIRER Office Visit [facility] [address] [facility] [address] [place] [address] Christina Roe PA-C [address] [place] [address] documented as of this encounter Visit Diagnoses Not on filedocumented in this encounter Care Teams Berry Grower Relationship Specialty Start Date End Date Feliciano Uribe MD [facility] [address] [place] [address] PCP - General Family Medicine 06/01/23 Christina Roe PA-C [address] [place] [address] Physician Nursing Director Rheumatology 11/06/23 Christina Roe PA-C [address] [place] [address] Assigned Rheumatology Provider 11/09/23 documented as of this encounter
--- OUTSIDE RECORDS SUMMARY | 2024-06-24 09:03 | XMS_ITS | Clinical Summary ---
Author Organization [email or web address] Address [address] [place] [address] Care Team Providers Care Dam Attendant Name Role Phone Feliciano Uribe MD Primary Care Provider [phone] Source Comments You are receiving this document as you are listed as the primary care provider,follow-up provider, or the patient has been referred to you for consultation.This is in compliance with the Medicare and[facility] EHR Incentive Program,which states Providers who transition their patient to another setting of careor provider of care or refers their patient to another provider of care shouldprovide summary care record for each transition of care or referral. [employer] Allergies No known active allergies Medications Medication [...] a day. 03/27/2019 Active Cholecalciferol (VITAMIN D3) 68581 units TABS 03/27/2019 Active levothyroxine (SYNTHROID) 137 [...] every week. Take 30 minutes before first [id number] n. Avoid lying down for 30 minutes. [...] patient's age to complete this topic RSV Aged Out No longer eligi ble based on patient's age to complete this topic [email or web address] Aged Out No longer eligi ble based on patient's age to complete this topic Care Teams Dam Attendant Relationship Specialty Start Date End Date Feliciano Uribe MD [address] [place] [address] PCP - General 02/17/19
== END 2024-06-24 08:58 | disposition home or self-care (01) ==
LOC: NFLDREF 08:57
PROVIDERS: PCP Family Medicine; Visit Provider Family Medicine
DX: Z01.818 Encounter for other preprocedural examination (principal)
CPT/HCPCS: 80048

== ENCOUNTER 2024-08-30 15:45 | Emergency (ER) | payer MEDICARE, BC, SELFPAY ==
--- OUTSIDE RECORDS SUMMARY | 2024-08-30 15:47 | XMS_ITS | Encounter Summary ---
Author Organization [facility] Address [address] [place] [address] Care Team Providers Care Drum Saw Operator Name Role Phone Feliciano Uribe MD Primary Care Provider Christina Roe PA-C Unavailable [phone] Christina Roe PA-C Unavailable Richie Rowell [facility] Unavailable Richie Rowell [facility] Unavailable Zhane Crain MD Unavailable Saeed Berry MD Unavailable [phone] Reason for Visit * Reason Comments RECHECK Encounter Details Date Type Department Care Team (Late st Contact Info) Description 07/31/2024 2:00 PM BEAD FILLER Office Visit [address] [place] [phone] Christina Roe PA-C [address] [place], [place] [id number] Temporal arteritis (H) (Primary Dx); PMR (polymyalgia rheumatica) (H); On prednisone therapy; High risk medication use Social History Tobacco Use Types Packs/Day Years [...] on file Legal Sex Female 3:41 AM BEAD FILLER Gender Identity Not on file Sexual Orientation Not on file documented as of this encounter Last Filed Vital Signs Vital Sign Reading Time Taken Comments Blood Pressure 120/64 07/31/2024 1:12 PM BEAD FILLER Pulse 72 07/31/2024 1:12 PM BEAD FILLER Temperature - - Respiratory Rate - - Oxygen Saturation - - Inhaled Oxygen Concentration - - Weight 62.6 kg (138 lb) 07/31/2024 1:12 PM BEAD FILLER Height - - Body Mass Index 26.95 03/23/2024 8:57 PM CDT documented in this encounter Patient Instructions * Patient Instructions* Christina Roe PA-C - 07/31/2024 2:00 PM BEAD FILLER After Visit Instructions: Thank you for coming to [facility] for your care. It is my goal to partner withyou to help you reach your optimal state of health. Plan: Schedule follow-up with Christina Roe PA-C in 3 months. Labs: CBC, creatinine, Albumin, AST, ALT, CRP and Sed Rate in today and then every 3 months Medication recommendations: Prednisone 1mg: continue taper of 1mg every 2 weeks Continue Actemra Christina Roe PA-C [facility] Contact information: [facility] Number: [phone] Please call or send a StatusNet message with any questions about your care FILLER FILLER documented in this encounter Progress Notes * Christina Roe PA-C - 07/31/2024 2:00 PM CST Rheumatology Clinic Visit [facility] MAURILIO [facility]ard Date of : 1945 Age: [age] year old Date of Visit: 07/31/2024 Primary care provider: Feliciano Uribe Assessment and Plan: Temporal arteritis Polymyalgia rheumatica On prednisone therapy High-risk medication use Patient presents today for follow-up. 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 She was admitted on 03/22/2024 with symptoms of a right-sided temporal headache,temporal/scalp tenderness, jaw claudication on the right side and pain down the side of face. She had some transient vision changes which completely resolved within the initiation of high-dose steroids. She saw Dr. Crain on 04/17/2024 with plans to start her on Actemra and continue on her prednisone taper. She states that she has been doing quite well. The right-sided headache and neck pain have completely resolved as have her shoulder symptoms she is tolerating Actemra well and has not had any infections or side effects. She states she feels very good. Physical examination today does show that she is able to raise both arms above her head. No active synovitis or dactylitis noted. She is due for monitoring labs so we will check those today. Will check a cholesterol in 3 months along with her other labs. Plan to have her follow-up with me in 3 months, sooner if needed. The overall plan will be for her to completely taper off of the prednisone. As long as she remains asymptomatic for 2 years then we can talk about tapering her off of the Actemra. Plan: Schedule follow-up with Christina Roe PA-C in 3 months. Labs: CBC, creatinine, Albumin, AST, ALT, CRP and Sed Rate in today and then every 3 months Medication recommendations: Prednisone 1mg: continue taper of 1mg every 2 weeks Continue Actemra [facility] History of Present Illness: Gato Jimenez presents for evaluation of neck pain. Interval history July 31, 2024: She states that she is doing much better. She is not having any more pain on the right side of her head/neck. She feels so much better. No shoulder pain. She is down to 4mg of Prednisone. Actemra is going well.She had some fatigue with first starting but that is now gone as well. She will update her vaccinations as well. 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 Past Surgical History: Procedure Laterality Date BIOPSY ARTERY TEMPORAL Bilateral 03/25/2024 Procedure: Bilateral temporal Artery Biopsy; Surgeon: Richie Hawk DO; Location: [facility] OR CATARACT IOL, RT/LT GASTRIC BYPASS JOINT REPLACEMENT Right REPAIR PTOSIS Social History: Social History Socioeconomic History Marital [...] Social History Narrative Not on file Social Drivers of Health Financial Resource Strain: Low Risk (07/09/2024) [facility] Financial Resource Strain Difficulty of Paying Living Expenses: 3 Difficulty of Paying Living Expenses: Not on file Food Insecurity: No Food Insecurity (07/09/2024) Received from [facility] Food Insecurity Do you worry your food will run out before you are able to buy more?: 1 Transportation Needs: No Transportation Needs (07/09/2024) [facility] Transportation Needs Does lack of transportation keep you from medical appointments?: 1 Does lack of transportation keep you from work, meetings or getting things that you need?: 1 Physical Activity: Insufficiently Active (10/10/2022) [facility] Exercise Vital Sign Days of Exercise per Week: 2 days Minutes of Exercise per Session: 40 min Stress: No Stress Concern Present (10/10/2022) Re[facility] from [facility] [place] [facility] [employer] [facility] - Occupational Stress Questionnaire Feeling of Stress : Only a little Social Connections: Socially Integrated (07/09/2024) Received from [facility] Social Connections Do you often feel lonely or isolated from those around you?: 0 Interpersonal Safety: Not At Risk (10/10/2022) Re[facility] from [facility] Humiliation, Afraid, Rape, and Kick questionnaire Fear of Current or Ex-Partner: No Emotionally Abused: No Physically Abused: No Sexually Abused: No Housing Stability: Low Risk (07/09/2024) Received from [facility] Housing Stability What is your housing situation today?: 1 Family History: Family History Problem Relation Age of Onset Glaucoma No family hx of Macular Degeneration No family hx of Allergies: 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 Medications: Current Outpatient Medications Medication Sig Dispense Refill amLODIPine (NORVASC) 5 MG tablet Take 5 mg by mouth daily atorvastatin (LIPITOR) 10 MG tablet Take 10 mg by mouth at bedtime calcium carbonate (TUMS) 500 MG chewable tablet Take 1 chew tab by mouth daily Cyanocobalamin 1000 MCG/ML KIT 1,000 mcg every 30 days D3-50 1.25 MG (44895 UT) capsule Take 1,250 mcg by mouth once a week FLUoxetine (PROZAC) 40 MG capsule Take 40 mg by mouth daily levothyroxine (SYNTHROID/LEVOTHROID) 150 MCG tablet Take 150 mcg by mouth daily lisinopril (ZESTRIL) 10 MG tablet Take 10 mg by mouth 2 times daily methocarbamol (ROBAXIN) 500 MG tablet Take 1 tablet (500 mg) by mouth 4 times daily as needed for muscle spasms 10 tablet 0 metoprolol succinate ER (TOPROL XL) 50 MG 24 hr tablet Take 1 tablet by mouth daily at 2 pm. metoprolol tartrate (LOPRESSOR) 25 MG tablet Take 25 mg by mouth 2 times daily Multiple Vitamin (MULTIVITAMIN ADULT PO) Take 1 tablet by mouth daily omeprazole (PRILOSEC) [address] capsule Take 40 mg by mouth daily. pantoprazole (PROTONIX) 40 MG EC tablet Take 1 tablet (40 mg) by mouth every morning (before breakfast) 90 tablet 0 predniSONE (DELTASONE) 1 MG tablet Take 9 [...] days, THEN 1 tablet (1 mg) daily for14 days. 462 tablet 0 rivaroxaban ANTICOAGULANT (XARELTO) 10 MG TABS tablet Take 10 mg by mouth. tocilizumab (ACTEMRA) 162 MG/0.9ML subcutaneous injection Inject 0.9 mLs (162 mg) subcutaneously every 7 days. 3.6 mL 5 zoledronic acid (RECLAST) 5 MG/100ML SOLN infusion Inject 5 mg into the vein once Every 12 months amoxicillin (AMOXIL) 500 MG capsule TAKE 4 CAPSULES BY MOUTH 1 HOUR BEFORE DENTAL APPOINTMENT FOR 1DOSE nitroGLYcerin (NITROSTAT) 0.[address] 0.4 mg under the tongue Physical Exam: Blood pressure 120/64, pulse 72, weight 62.6 kg (138 lb). Wt Readings from Last 6 Encounters: 07/31/24 62.6 kg (138 lb) 04/17/24 69.9 kg (154 lb) 03/26/24 70 kg (154 lb 4.8 oz) 03/20/24 67.8 kg (149 lb 6.4 oz) 12/13/23 65.9 kg (145 lb 3.2 oz) 11/06/23 66.1 kg (145 lb 11.6 oz) Constitutional: well-developed, appearing stated age; cooperative Eyes: nl conjunctiva, sclera ENT: nl external ears, nose, hearing, lips, Neck: no mass or thyroid enlargement Resp: No shortness of breath with normal conversation MSK: Able to raise arms above her head. Psych: nl judgement, orientation, memory, affect. Data: [...] less than 3.0 CK 53 Aldolase 6.3 04/17/2024 Creatinine 0.70, GFR 80 ALT 101, AST 42 CRP less than 3.0 Normal cholesterol White blood cell count 6.2, hemoglobin 12.3, platelet 250 Sed rate 5 TB negative Hepatitis B and C nonreactive FILLER documented in this encounter Plan of Treatment Upcoming Encounters Date Type Department Care Team (Late st Contact Info) Description 10/07/2024 9:30 AM BEAD FILLER Virtual Visit [facility] [address] [facility] [address] [place] [phone] Christina Roe PA-C [address] [place] [address] [facility] [address] [place] [address] 10/23/2024 8:00 AM BEAD FILLER Lab [facility] [address] [facility] [address] [place] [phone] 10/30/2024 10:00 AM BEAD FILLER Office Visit [facility] [address] [facility] [address] [place] [phone] Christina Roe PA-C [address] [place] [address] Scheduled Orders Name Type Priority Associated Diagnoses Orde r Schedule Lipid panel reflex to direct LDL Fasting Lab Routine Temporal arteritis (H) PMR (polymyalgia rheumatica) (H) On prednisone therapy High risk medication use Expected: 10/29/2024 (Approximate), Expires: 07/31/2025 documented as of this encounter Visit Diagnoses Diagnosis Temporal arteritis (H)- Primary Giant cell arteritis PMR (polymyalgia rheumatica) (H) Polymyalgia rheumatica On prednisone therapy High risk medication use Encounter for long-term (current) use of other medications documented in this encounter Care Teams Drum Saw Operator Relationship Specialty Start Date End Date Feliciano Uribe MD [facility] [address] [place] [address] PCP - General Family Medicine 06/01/23 Christina Roe PA-C [address] [place] [address] Physician Shipping Room Helper Rheumatology 11/06/23 Christina Roe PA-C [address] [place] [address] Assigned Rheumatology Provider 11/09/23 Richie Rowell RPH [address] [place] [address] Pharmacist Pharmacist 04/08/24 Richie Rowell RPH [address] [place] [address] Assigned MTM Pharmacist 04/18/24 Zhane Crain MD [address] [place] [address] Physician Rheumatology 05/14/24 Saeed Berry MD [address] [place] [id number] Assigned Surgical Provider 05/19/24 documented as of this encounter
--- OUTSIDE RECORDS SUMMARY | 2024-08-30 15:47 | XMS_ITS | Encounter Summary ---
Author Organization [place] Address [address] [place] [address] Care Team Providers Care Electronic Device Monitor Name Role Phone Feliciano Uribe MD Primary Care Provider Christina Roe PA-C Unavailable [phone] Christina Roe PA-C Unavailable Richie Rowell [facility] Unavailable Richie Rowell [facility] Unavailable Zhane Crain MD Unavailable Saeed Berry MD Unavailable [phone] Encounter Details Date Type Department Care Team (Late st Contact Info) Description 06/04/2024 [facility] Medical Advice [address] [place] [address] Christina Roe PA-C [address] [place] [address] Temporal arteritis (H); PMR (polymyalgia rheumatica) (H) [...] on file Legal Sex Female 3:41 AM NURSE'S COMPANION Gender Identity Not on file Sexual Orientation Not on file documented as of this encounter Plan of Treatment Upcoming Encounters Date Type Department Care Team (Late st Contact Info) Description 10/07/2024 9:30 AM NURSE'S COMPANION Virtual Visit [facility] Rheumatology [facility] [address] [facility] [address] [place] [phone] Christina Roe PA-C [address] [place] [address] [facility] [address] [place] [address] 10/23/2024 8:00 AM NURSE'S COMPANION Lab [facility] [address] [place] [address] [address] [place] [phone] 10/30/2024 10:00 AM NURSE'S COMPANION Office Visit [facility] [address] [place] [address] [address] [place] [phone] Christina Roe PA-C [address] [place] [address] documented as of this encounter Visit Diagnoses Diagnosis Temporal arteritis (H) Giant cell arteritis PMR (polymyalgia rheumatica) (H) Polymyalgia rheumatica documented in this encounter Care Teams Electronic Device Monitor Relationship Specialty Start Date End Date Feliciano Uribe MD [address] [address] PCP - General Family Medicine 06/01/23 Christina Roe PA-C [address] [place] [address] Physician Stretch Machine Operator Rheumatology 11/06/23 Christina Roe PA-C [address] [place] [address] Assigned Rheumatology Provider 11/09/23 Richie Rowell RPH [address] [place] [address] Pharmacist Pharmacist 04/08/24 Richie Rowell RPH [address] [place] [address] Assigned MTM Pharmacist 04/18/24 Zhane Crain MD [address] [place] [address] Physician Rheumatology 05/14/24 Saeed Berry MD [address] [place] [phone] Assigned Surgical Provider 05/19/24 documented as of this encounter
--- OUTSIDE RECORDS SUMMARY | 2024-08-30 15:47 | XMS_ITS | Encounter Summary ---
Author Organization [facility] Address [address] [place] [address] Care Team Providers Care Sewing Machine Operator Name Role Phone Feliciano Uribe MD Primary Care Provider [phone] Christina Roe PA-C Unavailable [phone] Christina Roe PA-C Unavailable Richie Rowell [facility] Unavailable Richie Rowell [facility] Unavailable Zhane Crain MD Unavailable Saeed Berry MD Unavailable [phone] Reason for Visit * Reason Onset Date Comments Prior Auth - Medication 08/11/2024 Actemra FPAP renewal Encounter Details Date Type Department Care Team ([facility] Contact Info) Description 08/11/[address] [place] [phone] Zhane Crain MD [address] [place] [address] Prior Auth - Medication (Actemra FPAP renewal) Social History Tobacco Use Types Packs/Day Years [...] on file Legal Sex Female 3:41 AM LOCK SETTER Gender Identity Not on file Sexual Orientation Not on file documented as of this encounter Miscellaneous Notes * Telephone Encounter - Adalberto Boles - 08/28/2024 2:40 PM CST Sent a test claim, coverage is good SETTER * Telephone Encounter - Adalberto Boles - 08/19/2024 12:03 PM CST [facility] APPROVED Medication: ACTEMRA 162 MG/0.9ML SC SOSY Amount: $ Foundation Name: [facility] Effective Date: 08/27/2024 Foundation Expiration Date: 08/26/2025 Additional Information: must fill at [facility] Patient Notified: yes SETTER * Telephone Encounter - Adalberto Boles - 08/11/2024 4:06 PM CST [facility]KA INITIATED Medication: ACTEMRA 162 MG/0.9ML SC SOSY [facility] Name: [facility] Date submitted: 08/11/2024 4:06 PM Pending renewal SETTER documented in this encounter Plan of Treatment Upcoming Encounters Date Type Department Care Team (Late st Contact Info) Description 10/07/2024 9:30 AM LOCK SETTER Virtual Visit [facility] Rheumatology [facility] [address] [facility] [address] [place] [address] Christina Roe PA-C [address] [place] [address] Richie Rowell, [facility] [address] [place] [address] 10/23/2024 8:00 AM LOCK SETTER Lab [facility] [address] [facility] [address] [place] [phone] 10/30/2024 10:00 AM LOCK SETTER Office Visit [facility] [address] [place] [address] [address] [place] [phone] Christina Roe PA-C [address] [place] [address] documented as of this encounter Visit Diagnoses Not on filedocumented in this encounter Care Teams Sewing Machine Operator Relationship Specialty Start Date End Date Feliciano Uribe MD [address] [address] PCP - General Family Medicine 06/01/23 Christina Roe PA-C [address] [place] [address] Physician Firebrick Layer Helper Rheumatology 11/06/23 Christina Roe PA-C [address] [place] [address] Assigned Rheumatology Provider 11/09/23 Richie Rowell RPH [address] [place] [address] Pharmacist Pharmacist 04/08/24 Richie Rowell RPH [address] [place] [address] Assigned MTM Pharmacist 04/18/24 Zhane Crain MD [address] [place] [address] Physician Rheumatology 05/14/24 Saeed Berry MD [address] [facility] [address] [place], [place] [address] Assigned Surgical Provider 05/19/24 documented as of this encounter
--- OUTSIDE RECORDS SUMMARY | 2024-08-30 15:47 | XMS_ITS | Continuity of Care Document ---
Author Name NwTOMASN User [facility] Address Unknown Organization Unknown Address Unknown Procedures FILTER APPLIED:Only known Procedures with Onset Date within the last 5 years Procedure Date Procedure Provider Additiona l Information Status ADMISSION MED REC MARKER FOR REPORTING AND BPA'S (32489) Completed NT PROBNP INPATIENT (32189) Completed COMPREHEN METABOLIC PANEL (81756) Completed LIPID PANEL (82198) Comp leted ASSAY THYROID STIM HORMONE (31422) Completed CT ABD PELV W/CONTRAST (23162) Completed ROUTINE VENIPUNCTURE (88784) Completed ASSAY OF CREATININE (93979) Completed THER/PROPH/DIAG INJ IV PUSH (75284) Completed Encounters FILTER APPLIED:Only known Encounters with Admission Date within the last 5 years Encounter Location Admission Discharge Billing Code Twisting Frame Changer Attender Outpatient Feliciano Uribe Outpatient Feliciano Uribe Outpatient [facility] Outpatient [facility] Outpatient [facility] Outpatient [facility] Outpatient [facility] Out[facility] Feliciano Uribe Outpatient [facility] Outpatient [facility] Inpatient [facility] Recurring Patient [facility] Outpatient [facility] Recurring Patient [facility] Outpatient [facility] Outpatient [facility] Recurring Patient [facility] Outpatient [facility] Outpatient [facility] Outpatient [facility] Outpatient [facility] Outpatient [facility] Outpatient [facility] Outpatient [facility] Unknown [id number] GREG JOEL Outpatient [facility] Outpatient [facility]
--- OUTSIDE RECORDS SUMMARY | 2024-08-30 15:47 | XMS_ITS | Referral Summary ---
Author Organization [facility] Address [address] [place] [address] Care Team Providers Care Market Development Manager Name Role Phone Feliciano Uribe MD Primary Care Provider Christina Roe PA-C Unavailable Christina Roe PA-C Unavailable Richie Rowell [facility] Unavailable Richie Rowell [facility] Unavailable Zhane Crain MD Unavailable Saeed Berry MD Unavailable [phone] Encounters Date Type Department Care Team Description 08/11/[address] [place] [address] Zhane Cline MD Prior Auth - Medication (Actemra FPAP renewal) 07/31/2024 1:45 PM NETWORK ARCHITECT Lab [facility] Laboratory [address] [place] [address] [address] [place] [address] GCA (giant cell arteritis) (H); PMR (polymyalgia rheumatica) (H) 07/31/2024 Travel 07/31/2024 2:00 PM NETWORK ARCHITECT Office Visit [address] [place] [address] Christina Roe PA-C Temporal arteritis (H) (Primary Dx); PMR (polymyalgia rheumatica) (H); On prednisone therapy; High risk medication use 07/08/2024 9:30 AM NETWORK ARCHITECT Virtual Visit [facility] Rheumatology [facility] [address] [facility] [address] [place] [phone] Zhane Cline MD Krier, John, [facility] GCA (giant cell arteritis) (H) (Primary Dx); PMR (polymyalgia rheumatica) (H); Vaccine counseling 06/12/2024 Telephone [facility] [address] [facility] [address] [place] [address] Christina Roe PA-C Call Back 06/04/2024 MyC Medical Advice [facility] [address] [facility] [address] [place] [address] Christina Roe PA-C Temporal arteritis (H); PMR (polymyalgia rheumatica) (H) from Last 3 Months Allergies Active Allergy Reactions Criticality Noted Date Comments Aspirin 11/06/2023 Contraindicated due to hx of gastric bypass Medications amoxicillin (AMOXIL) 500 MG capsule TAKE 4 CAPSULES BY MOUTH 1 HOUR BEFORE DENTAL APPOINTMENT FOR 1 DOSE 11/07/19 23 Active atorvastatin (LIPITOR) 10 MG tablet Take 10 mg by mouth at bedtime Active D3-50 1.25 MG (22624 UT) capsule Take 1,250 mcg by mouth [...] 24 Active pantoprazole (PROTONIX) 40 MG EC tabletIndications [...] mL 5 05/15/20 24 Active predniSONE (DELTASONE) 1 MG tabletIndications :Temporal arteritis [...] days. 462 tablet 06/10/20 24 025 Active rivaroxaban ANTICOAGULANT (XARELTO) 10 MG TABS tablet Take 10 mg by mouth. 07/09/20 24 Active omeprazole (PRILOSEC) [address] capsule Take 40 mg by mouth daily. 11/02/19 23 Active metoprolol succinate ER (TOPROL XL) 50 MG 24 hr tablet Take 1 tablet by mouth daily at 2 pm. 09/01/19 24 Active Active Problems Problem Noted Date Diagnosed [...] DT (PEDS <7y) 01/30/1980 Flu, Unspecified 06/21/2020,05/05/2011 [id number] Novel Flu 06/28/2009 Influenza (High Dose) Trival ent,PF (Fluzone) 06/28/2018,05/02/2017,06/05/2016,2013 Influenza (IIV3) PF 05/05/2011 Influenza (prior to 2023) 05/02/2012,05/13/2009 Influenza Vaccine 65+ (Fluzone HD) 06/19/2023,,06/21/2020 Pneumo Conj 13-V (2010&after) 01/12/2015 Pneumococcal 23 [...] on file Legal Sex Female 3:41 AM NETWORK ARCHITECT Gender Identity Not on file Sexual Orientation Not on file Last Filed Vital Signs Vital Sign Reading Time Taken Comments Blood Pressure 120/64 07/31/2024 1:12 PM NETWORK ARCHITECT Pulse 72 07/31/2024 1:12 PM NETWORK ARCHITECT Temperature 36.7 C (98.1 F) 03/26/2024 4:09 PM CDT Respiratory Rate 98 04/17/2024 12:17 PM CDT Oxygen Saturation 96% 03/26/2024 4:09 PM CDT Inhaled Oxygen Concentration - - Weight 62.6 kg (138 lb) 07/31/2024 1:12 PM NETWORK ARCHITECT Height 152.4 cm (5') 03/23/2024 8:57 PM CDT Body Mass Index 26.95 03/23/2024 8:57 PM CDT Plan of Treatment Upcoming Encounters Date Type Department Care Team (Late st Contact Info) Description 10/07/2024 9:30 AM NETWORK ARCHITECT Virtual Visit [facility] Rheumatology [facility] [address] [facility] [address] [place] [phone] Christina Roe, ROSLYN [address] [place] [address] Richie Rowell, [address] [address] 10/23/2024 8:00 AM NETWORK ARCHITECT Lab [facility] [address] [place] [address] [address] [place] [phone] 10/30/2024 10:00 AM NETWORK ARCHITECT Office Visit [facility] [address] [facility] [address] [place] [phone] Christina Roe, ROSLYN [address] [place] [address] Procedures Procedure Name Priority Date/Time Associated Diagnosis Comments CBC WITH PLATELETS & DIFFERENTIAL Routine 07/31/2024 1:51 PM NETWORK ARCHITECT GCA (giant cell arteritis) (H) PMR (polymyalgia rheumatica) (H) CBC WITH PLATELETS AND DIFFERENTIAL Routine 07/31/2024 1:51 PM NETWORK ARCHITECT GCA (giant cell arteritis) (H) PMR (polymyalgia rheumatica) (H) ALBUMIN LEVEL Routine 07/31/2024 1:51 PM NETWORK ARCHITECT GCA (giant cell arteritis) (H) PMR (polymyalgia rheumatica) (H) ALT Routine 07/31/2024 1:51 PM NETWORK ARCHITECT GCA (giant cell arteritis) (H) PMR (polymyalgia rheumatica) (H) AST Routine 07/31/2024 1:51 PM NETWORK ARCHITECT GCA (giant cell arteritis) (H) PMR (polymyalgia rheumatica) (H) CREATININE Routine 07/31/2024 1:51 PM NETWORK ARCHITECT GCA (giant cell arteritis) (H) PMR (polymyalgia rheumatica) (H) ERYTHROCYTE SEDIMENTATION RATE AUTO Routine 07/31/2024 1:51 PM NETWORK ARCHITECT GCA (giant cell arteritis) (H) PMR (polymyalgia rheumatica) (H) CRP INFLAMMATION Routine 07/31/2024 1:51 PM NETWORK ARCHITECT GCA (giant cell arteritis) (H) PMR (polymyalgia rheumatica) (H) HEPATITIS C ANTIBODY Routine 04/17/2024 1:11 PM CDT GCA (giant cell arteritis) (H) PMR (polymyalgia rheumatica) (H) LIPID REFLEX TO DIRECT LDL PANEL Routine 04/17/2024 1:11 PM CDT GCA (giant cell arteritis) (H) BASIC METABOLIC PANEL Routine 03/26/2024 6:14 AM CDT TSH STAT 03/22/2024 8:45 AM CDT from Last 3 Months or Most Recently Relevant to Health Maintenance Results * (ABNORMAL) CBC with platelets and differential (07/31/2024 1:51 PM NETWORK ARCHITECT) WBC Count 5.1 4.0 - 11.0 10e3/uL 07/31/2024 2:07 PM NETWORK ARCHITECT [facility] RBC Count 4.53 3.80 - 5.20 10e6/uL 07/31/2024 2:07 PM NETWORK ARCHITECT [facility] Hemoglobin 13.8 11.7 - 15.7 g/dL 07/31/2024 2:07 PM NETWORK ARCHITECT [facility] Hematocrit 43.9 35.0 - 47.0 % 07/31/2024 2:07 PM NETWORK ARCHITECT [facility] MCV 97 78 - 100 fL 07/31/2024 2:07 PM NETWORK ARCHITECT [facility] MCH 30.5 26.5 - 33.0 pg 07/31/2024 2:07 PM NETWORK ARCHITECT [facility] MCHC 31.4(L) 31.5 - 36.5 g/dL 07/31/2024 2:07 PM NETWORK ARCHITECT [facility] RDW 15.8(H) 10.0 - 15.0 % 07/31/2024 2:07 PM NETWORK ARCHITECT [facility] Platelet Count 251 150 - 450 10e3/uL 07/31/2024 2:07 PM NETWORK ARCHITECT [facility] % Neutrophils 60 % 07/31/2024 2:07 PM NETWORK ARCHITECT [facility] % Lymphocytes 13 % 07/31/2024 2:07 PM NETWORK ARCHITECT [facility] % Monocytes 20 % 07/31/2024 2:07 PM NETWORK ARCHITECT [facility] % Eosinophils 6 % 07/31/2024 2:07 PM NETWORK ARCHITECT [facility] % Basophils 1 % 07/31/2024 2:07 PM NETWORK ARCHITECT [facility] % Immature Granulocytes 0 % 07/31/2024 2:07 PM NETWORK ARCHITECT [facility] Absolute Neutrophils 3.1 1.6 - 8.3 10e3/uL 07/31/2024 2:07 PM NETWORK ARCHITECT [facility] Absolute Lymphocytes 0.7(L) 0.8 - 5.3 10e3/uL 07/31/2024 2:07 PM NETWORK ARCHITECT [facility] Absolute Monocytes 1.0 0.0 - 1.3 10e3/uL 07/31/2024 2:07 PM NETWORK ARCHITECT [facility] Absolute Eosinophils 0.3 0.0 - 0.7 10e3/uL 07/31/2024 2:07 PM NETWORK ARCHITECT [facility] Absolute Basophils 0.0 0.0 - 0.2 10e3/uL 07/31/2024 2:07 PM NETWORK ARCHITECT [facility] Absolute Immature Granulocytes 0.0 <=0.4 10e3/uL 07/31/2024 2:07 PM NETWORK ARCHITECT [facility] Blood BLOOD SPECIMEN / Unknown Venipuncture / Unknown 07/31/2024 1:51 PM NETWORK ARCHITECT 07/31/2024 1:51 PM NETWORK ARCHITECT Christina WRIGHTC LAB - BLOOD ORDERABLES Final Result Performing Organization Address City/[facility]/ZIP Co de Phone Number [facility] [address] * Erythrocyte sedimentation rate auto (07/31/2024 1:51 PM NETWORK ARCHITECT) Erythrocyte Sedimentation Rate 5 0 - 30 mm/hr 07/31/2024 2:14 PM NETWORK ARCHITECT [facility] Blood BLOOD SPECIMEN / Unknown Venipuncture / Unknown 07/31/2024 1:51 PM NETWORK ARCHITECT 07/31/2024 1:51 PM NETWORK ARCHITECT Christina KAPOOR-C LAB - BLOOD ORDERABLES Final Result [facility] [address] * CRP inflammation (07/31/2024 1:51 PM NETWORK ARCHITECT) CRP Inflammation <3.00 <5.00 mg/L 07/31/20 9:37 PM NETWORK ARCHITECT [facility] Blood BLOOD SPECIMEN / Unknown Venipuncture / Unknown 07/31/2024 1:51 PM NETWORK ARCHITECT 07/31/2024 1:51 PM NETWORK ARCHITECT Christina KAPOOR-C LAB - BLOOD ORDERABLES Final Result [facility] [place] Core Lab [address] [facility], [address] * Creatinine (07/31/2024 1:51 PM NETWORK ARCHITECT) Creatinine 0.75 0.51 - 0.95 mg/dL 07/31/2024 9:37 PM NETWORK ARCHITECT [facility] GFR Estimate 81 >60 mL/min/1.7 3m2 07/31/2024 9:37 PM NETWORK ARCHITECT [facility] Comment:eGFR calculated usin 2020 CKD-EPI equation. Blood BLOOD SPECIMEN / Unknown Venipuncture / Unknown 07/31/2024 1:51 PM NETWORK ARCHITECT 07/31/2024 1:51 PM NETWORK ARCHITECT Christina KAPOOR-C LAB - BLOOD ORDERABLES Final Result LABORATORY [facility] [place] [facility] [address] [facility], [address] * AST (07/31/2024 1:51 PM NETWORK ARCHITECT) AST 29 0 - 45 U/L 07/31/2024 9:3 7 PM NETWORK ARCHITECT [facility] Blood BLOOD SPECIMEN / Unknown Venipuncture / Unknown 07/31/2024 1:51 PM NETWORK ARCHITECT 07/31/2024 1:51 PM NETWORK ARCHITECT Christina KAPOOR-C LAB - BLOOD ORDERABLES Final Result [facility] [place] [facility] [address] [facility], [address] [phone] * ALT (07/31/2024 1:51 PM NETWORK ARCHITECT) Pathologist [facility] ALT 33 0 - 50 U/L 07/31/2024 9:3 7 PM NETWORK ARCHITECT [facility] Blood BLOOD SPECIMEN / Unknown Venipuncture / Unknown 07/31/2024 1:51 PM NETWORK ARCHITECT 07/31/2024 1:51 PM NETWORK ARCHITECT Christina Roe PA-C LAB - BLOOD ORDERABLES Final Result [facility] [place] [facility] [address] [facility], [address] * Albumin level (07/31/2024 1:51 PM NETWORK ARCHITECT) [facility] Albumin 4.5 3.5 - 5.2 g/dL 07/31/2024 9:37 PM NETWORK ARCHITECT [facility] Blood BLOOD SPECIMEN / Unknown Venipuncture / Unknown 07/31/2024 1:51 PM NETWORK ARCHITECT 07/31/2024 1:51 PM NETWORK ARCHITECT Christina Roe PA-C LAB - BLOOD ORDERABLES Final Result [facility] [place] [facility] [address] [facility], [address] * Lipid panel reflex to direct LDL Fasting (04/17/2024 1:11 PM CDT) [facility] Cholesterol 182 <200 mg/dL 04/17/2024 7:43 PM [...] > 8hrs? No 04/17/2024 7:43 PM CDT [facility] Blood STRUCTURE OF RIGHT UPPER LIMB / Unknown Venipuncture / Unknown 04/17/2024 1:11 PM CDT 04/17/2024 1:[address] [facility] - 04/17/2024 7:43 PM CDT Cholesterol Desirable: <200 mg/dL Triglycerides Normal: Less than 150 mg/dL Borderline High: 150-199 mg/dL High: 200-499 mg/dL Very High: Greater than or equal to 500 mg/dL Direct Measure HDL Female: Greater than or equal to 50 mg/dL Male: Greater than or equal to 40 mg/dL LDL Cholesterol Desirable: <100mg/dL Above Desirable: 100-129 mg/dL Borderline High: 130-159 mg/dL High: 160-189 mg/dL Very High: >= 190 mg/dL Non HDL Cholesterol Desirable: 130 mg/dL Above Desirable: 130-159 mg/dL Borderline High: 160-189 mg/dL High: 190-219 mg/dL Very High: Greater than or equal to 220 mg/dL us Zhane Crain MD LAB - BLOOD O RDERABLES Final Result [facility] Core Lab [address] [facility], [address] [phone] * Hepatitis C antibody (04/17/2024 1:11 [...] BLOOD O RDERABLES Final Result [facility] [place] [facility] [address] [facility], [address] [phone] * (ABNORMAL) Basic metabolic panel (03/26/2024 [...] AM CDT 03/26/2024 6:23 AM CDT us Maricruz Acosta MD LAB - BLOOD ORDERABLES Final Result [facility] Core Lab [address] [facility], [address] [phone] * TSH (03/22/2024 8:45 AM CDT) TSH 2.40 0.30 - 4.20 uIU/mL 03/22/2024 10:19 AM CDT [facility] Blood BLOOD SPECIMEN / Unknown Venipuncture / Unknown 03/22/2024 8:45 AM CDT 03/22/2024 9:23 AM CDT us Jona Sears MD LAB - BLOOD ORDERABLES Daylin l Result Performing Organization Address City/[facility]/ZIP Co de Phone Number [facility] Core Lab [address] [facility], [address] [phone] [place] [address] from Last 3 Months or Most Recently Relevant to Health Maintenance Insurance [facility] [place] [employer] [place] [employer] * Guarantor: Gato Jimenez Account Type Relation to Patient Date of Phone Billing Address Medication Therapy Self [address] [place] [id number] MEDICARE [facility] [place] [facility] [place] [employer] Advance Directives For more information, please contact: [phone] * Full Code (Latest Code Status on [...] Comments Code status determined by: Discussion with nidiae nt/ legal decision maker Care Teams Market Development Manager Relationship Specialty Start Date End Date Feliciano Uribe MD [address] [address] PCP - General Family Medicine 06/01/23 Christina Roe PA-C [address] [place] [address] Physician Oliver Filter Operator Rheumatology 11/06/23 Christina Roe PA-C [address] [place] [address] Assigned Rheumatology Provider 11/09/23 Richie Rowell RPH [address] [place] [phone] Pharmacist Pharmacist 04/08/24 Richie Rowell RPH [address] [place] [address] Assigned MTM Pharmacist 04/18/24 Zhane Crain MD [address] [place], [place] [phone] Physician Rheumatology 05/14/24 Saeed Berry MD [address] [facility] [address] [place], [place] [id number] Assigned Surgical Provider 05/19/24
--- OUTSIDE RECORDS SUMMARY | 2024-08-30 15:47 | XMS_ITS | Clinical Summary ---
Author Organization [place] Address [address] [place] [address] Care Team Providers Care Classified Copy Control Clerk Name Role Phone Feliciano Uribe MD Primary Care Provider [phone] Christina Roe PA-C Unavailable Christina Roe PA-C Unavailable Richie Rowell [facility] Unavailable Richie Rowell [facility] Unavailable Zhane Crain MD Unavailable Saeed Berry MD Unavailable [phone] Allergies Active Allergy Reactions Criticality Noted Date Comments Aspirin 11/06/2023 Contraindicated due to hx of gastric bypass Medications amoxicillin (AMOXIL) 500 MG capsule TAKE 4 CAPSULES BY MOUTH 1 HOUR BEFORE DENTAL APPOINTMENT FOR 1 DOSE 11/07/19 23 Active atorvastatin (LIPITOR) 10 MG tablet Take 10 mg by mouth at bedtime Active D3-50 1.25 MG (87509 UT) capsule Take 1,250 mcg by mouth [...] Type Department Care Team Description 08/11/[address] [place] [address] Zhane Cline MD Prior Auth - Medication (Actemra FPAP renewal) 07/31/2024 2:00 PM BALLISTICS EXPERT FORENSIC Office Visit [address] [place] [address] Christina Roe PA-C Temporal arteritis (H) (Primary Dx); PMR (polymyalgia rheumatica) (H); On prednisone therapy; High risk medication use 07/31/2024 1:45 PM BALLISTICS EXPERT FORENSIC Lab [facility] [address] [place] [address] [address] [place] [address] GCA (giant cell arteritis) (H); PMR (polymyalgia rheumatica) (H) 07/31/2024 Travel 07/08/2024 9:30 AM BALLISTICS EXPERT FORENSIC Virtual Visit [facility] Rheumatology [facility] [address] [facility] [address] [place] [address] Zhane Cline MD Krier, John, [facility] GCA (giant cell arteritis) (H) (Primary Dx); PMR (polymyalgia rheumatica) (H); Vaccine counseling 06/12/2024 Telephone [facility] [address] [facility] [address] [place] [address] Christina Roe PA-C Call Back 06/04/2024 MyC Medical Advice [facility] [address] [facility] [address] [place] [address] Christina Roe PA-C Temporal arteritis (H); PMR (polymyalgia rheumatica) (H) from Last 3 Months Immunizations Name Administration Dates Next Due DT (PEDS <7y) 01/30/1980 Flu, Unspecified 06/21/2020,05/05/2011 [id number] Novel Flu 06/28/2009 Influenza (High Dose) Trival [...] on file Legal Sex Female 3:41 AM BALLISTICS EXPERT FORENSIC Gender Identity Not on file Sexual Orientation Not on file Last Filed Vital Signs Vital Sign Reading Time Taken Comments Blood Pressure 120/64 07/31/2024 1:12 PM BALLISTICS EXPERT FORENSIC Pulse 72 07/31/2024 1:12 PM BALLISTICS EXPERT FORENSIC Temperature 36.7 C (98.1 F) 03/26/2024 4:09 PM CDT Respiratory Rate 98 04/17/2024 12:17 PM CDT Oxygen Saturation 96% 03/26/2024 4:09 PM CDT Inhaled Oxygen Concentration - - Weight 62.6 kg (138 lb) 07/31/2024 1:12 PM BALLISTICS EXPERT FORENSIC Height 152.4 cm (5') 03/23/2024 8:57 PM CDT Body Mass Index 26.95 03/23/2024 8:57 PM CDT Plan of Treatment Upcoming Encounters Date Type Department Care Team (Late st Contact Info) Description 10/07/2024 9:30 AM BALLISTICS EXPERT FORENSIC Virtual Visit [facility] Rheumatology [facility] [address] [facility] [address] [place] [phone] Christina Roe PA-C [address] [place] [address] Richie Rowell, [facility] [address] [place] [address] 10/23/2024 8:00 AM BALLISTICS EXPERT FORENSIC Lab [facility] [address] [place] [address] [address] [place] [phone] 10/30/2024 10:00 AM BALLISTICS EXPERT FORENSIC Office Visit [address] [place] [phone] Christina Roe PA-C [address] [place] [address] Health Maintenance Due Date Last Done Comments [...] T4 REFLEX 03/22/2025 03/22/2024 BMP 03/26/2025 03/26/2024, 3 , 03/24/2024, Additional history exists LIPID 04/17/2025 04/17/2024 GLUCOSE 03/26/2027 03/26/2024, 02/26, 03/24/2024, Additional history exists DTAP/TDAP/TD IMMUNIZATION (3 - Td or Tdap) 11/22/2031 11/21/2021, 05/02/2012, 03/10/2005 Pneumococcal Vaccine: 50+ Years Completed 01/12/2015, 11/28/2013, 08/27/2007 PHQ-2 (once [...] PLATELETS & DIFFERENTIAL Routine 07/31/2024 1:51 PM BALLISTICS EXPERT FORENSIC GCA (giant cell arteritis) (H) PMR (polymyalgia rheumatica) (H) CBC WITH PLATELETS AND DIFFERENTIAL Routine 07/31/2024 1:51 PM BALLISTICS EXPERT FORENSIC GCA (giant cell arteritis) (H) PMR (polymyalgia rheumatica) (H) ALBUMIN LEVEL Routine 07/31/2024 1:51 PM BALLISTICS EXPERT FORENSIC GCA (giant cell arteritis) (H) PMR (polymyalgia rheumatica) (H) ALT Routine 07/31/2024 1:51 PM BALLISTICS EXPERT FORENSIC GCA (giant cell arteritis) (H) PMR (polymyalgia rheumatica) (H) AST Routine 07/31/2024 1:51 PM BALLISTICS EXPERT FORENSIC GCA (giant cell arteritis) (H) PMR (polymyalgia rheumatica) (H) CREATININE Routine 07/31/2024 1:51 PM BALLISTICS EXPERT FORENSIC GCA (giant cell arteritis) (H) PMR (polymyalgia rheumatica) (H) ERYTHROCYTE SEDIMENTATION RATE AUTO Routine 07/31/2024 1:51 PM BALLISTICS EXPERT FORENSIC GCA (giant cell arteritis) (H) PMR (polymyalgia rheumatica) (H) CRP INFLAMMATION Routine 07/31/2024 1:51 PM BALLISTICS EXPERT FORENSIC GCA (giant cell arteritis) (H) PMR (polymyalgia [...] with platelets and differential (07/31/2024 1:51 PM BALLISTICS EXPERT FORENSIC) [facility] WBC Count 5.1 4.0 - 11.0 10e3/uL 07/31/2024 2:07 PM BALLISTICS EXPERT FORENSIC [facility] RBC Count 4.53 3.80 - 5.20 10e6/uL 07/31/2024 2:07 PM BALLISTICS EXPERT FORENSIC [facility] Hemoglobin 13.8 11.7 - 15.7 g/dL 07/31/2024 2:07 PM BALLISTICS EXPERT FORENSIC [facility] Hematocrit 43.9 35.0 - 47.0 % 07/31/2024 2:07 PM BALLISTICS EXPERT FORENSIC [facility] MCV 97 78 - 100 fL 07/31/2024 2:07 PM BALLISTICS EXPERT FORENSIC [facility] MCH 30.5 26.5 - 33.0 pg 07/31/2024 2:07 PM BALLISTICS EXPERT FORENSIC [facility] MCHC 31.4(L) 31.5 - 36.5 g/dL 07/31/2024 2:07 PM BALLISTICS EXPERT FORENSIC [facility] RDW 15.8(H) 10.0 - 15.0 % 07/31/2024 2:07 PM BALLISTICS EXPERT FORENSIC [facility] Platelet Count 251 150 - 450 10e3/uL 07/31/2024 2:07 PM BALLISTICS EXPERT FORENSIC [facility] % Neutrophils 60 % 07/31/2024 2:07 PM BALLISTICS EXPERT FORENSIC [facility] % Lymphocytes 13 % 07/31/2024 2:07 PM BALLISTICS EXPERT FORENSIC [facility] % Monocytes 20 % 07/31/2024 2:07 PM BALLISTICS EXPERT FORENSIC [facility] % Eosinophils 6 % 07/31/2024 2:07 PM BALLISTICS EXPERT FORENSIC [facility] % Basophils 1 % 07/31/2024 2:07 PM BALLISTICS EXPERT FORENSIC [facility] % Immature Granulocytes 0 % 07/31/2024 2:07 PM BALLISTICS EXPERT FORENSIC [facility] Absolute Neutrophils 3.1 1.6 - 8.3 10e3/uL 07/31/2024 2:07 PM BALLISTICS EXPERT FORENSIC [facility] Absolute Lymphocytes 0.7(L) 0.8 - 5.3 10e3/uL 07/31/2024 2:07 PM BALLISTICS EXPERT FORENSIC [facility] Absolute Monocytes 1.0 0.0 - 1.3 10e3/uL 07/31/2024 2:07 PM BALLISTICS EXPERT FORENSIC [facility] Absolute Eosinophils 0.3 0.0 - 0.7 10e3/uL 07/31/2024 2:07 PM BALLISTICS EXPERT FORENSIC [facility] Absolute Basophils 0.0 0.0 - 0.2 10e3/uL 07/31/2024 2:07 PM BALLISTICS EXPERT FORENSIC [facility] Absolute Immature Granulocytes 0.0 <=0.4 10e3/uL 07/31/2024 2:07 PM BALLISTICS EXPERT FORENSIC [facility] Blood BLOOD SPECIMEN / Unknown Venipuncture / Unknown 07/31/2024 1:51 PM BALLISTICS EXPERT FORENSIC 07/31/2024 1:51 PM BALLISTICS EXPERT FORENSIC Christina Roe PA-C LAB - BLOOD ORDERABLES Final Result [facility] [address] * Erythrocyte sedimentation rate auto (07/31/2024 1:51 PM BALLISTICS EXPERT FORENSIC) Erythrocyte Sedimentation Rate 5 0 - 30 mm/hr 07/31/2024 2:14 PM BALLISTICS EXPERT FORENSIC [facility] Blood BLOOD SPECIMEN / Unknown Venipuncture / Unknown 07/31/2024 1:51 PM BALLISTICS EXPERT FORENSIC 07/31/2024 1:51 PM BALLISTICS EXPERT FORENSIC Christina WRIGHTC LAB - BLOOD ORDERABLES Final Result [facility] [address] * CRP inflammation (07/31/2024 1:51 PM BALLISTICS EXPERT FORENSIC) CRP Inflammation <3.00 <5.00 mg/L 07/31/20 9:37 PM BALLISTICS EXPERT FORENSIC [facility] Blood BLOOD SPECIMEN / Unknown Venipuncture / Unknown 07/31/2024 1:51 PM BALLISTICS EXPERT FORENSIC 07/31/2024 1:51 PM BALLISTICS EXPERT FORENSIC Christina WRIGHTC LAB - BLOOD ORDERABLES Final Result [facility] [address] [facility], [address] [place] [address] * Creatinine (07/31/2024 1:51 PM BALLISTICS EXPERT FORENSIC) Creatinine 0.75 0.51 - 0.95 mg/dL 07/31/2024 9:37 PM BALLISTICS EXPERT FORENSIC [facility] GFR Estimate 81 >60 mL/min/1.7 3m2 07/31/2024 9:37 PM BALLISTICS EXPERT FORENSIC [facility] Comment:eGFR calculated usin 2020 CKD-EPI equation. Blood BLOOD SPECIMEN / Unknown Venipuncture / Unknown 07/31/2024 1:51 PM BALLISTICS EXPERT FORENSIC 07/31/2024 1:51 PM BALLISTICS EXPERT FORENSIC us Christina Roe PA-C LAB - BLOOD ORDERABLES Final Result [facility] [address] [facility], [address] [place] [address] * AST (07/31/2024 1:51 PM BALLISTICS EXPERT FORENSIC) AST 29 0 - 45 U/L 07/31/2024 9:3 7 PM BALLISTICS EXPERT FORENSIC [facility] Blood BLOOD SPECIMEN / Unknown Venipuncture / Unknown 07/31/2024 1:51 PM BALLISTICS EXPERT FORENSIC 07/31/2024 1:51 PM BALLISTICS EXPERT FORENSIC us Christina Roe PA-C LAB - BLOOD ORDERABLES Final Result [facility] [address] [facility], [address] * ALT (07/31/2024 1:51 PM BALLISTICS EXPERT FORENSIC) ALT 33 0 - 50 U/L 07/31/2024 9:3 7 PM BALLISTICS EXPERT FORENSIC [facility] Blood BLOOD SPECIMEN / Unknown Venipuncture / Unknown 07/31/2024 1:51 PM BALLISTICS EXPERT FORENSIC 07/31/2024 1:51 PM BALLISTICS EXPERT FORENSIC us Christina Roe PA-C LAB - BLOOD ORDERABLES Final Result [facility] [address] [facility], [address] * Albumin level (07/31/2024 1:51 PM BALLISTICS EXPERT FORENSIC) Albumin 4.5 3.5 - 5.2 g/dL 07/31/2024 9:37 PM BALLISTICS EXPERT FORENSIC [facility] Blood BLOOD SPECIMEN / Unknown Venipuncture / Unknown 07/31/2024 1:51 PM BALLISTICS EXPERT FORENSIC 07/31/2024 1:51 PM BALLISTICS EXPERT FORENSIC Christina Roe PA-C LAB - BLOOD ORDERABLES Final Result Performing Organization Address City/[facility] Co de Phone Number [facility] [address] [place] [address], [address] * Lipid panel reflex to direct [...] Greater than or equal to 220 mg/dL Zhane Crain MD LAB - BLOOD O RDERABLES Final Result Performing Organization Address City/[facility]/ZIP Co de Phone Number LABORATORY [facility] [address] [facility], [address] [phone] * Hepatitis C antibody (04/17/2024 1:11 PM CDT) [facility] Hepatitis C Antibody Nonreactive Nonreactive 04/17/2024 8:05 [...] PM CDT 04/17/2024 1:24 PM CDT Zhane rCain MD LAB - BLOOD O RDERABLES Final Result Performing Organization Address [facility]/ZIP Co de Phone Number LABORATORY [facility] [address] [facility], [address] [phone] * (ABNORMAL) Basic metabolic panel [...] - BLOOD ORDERABLES Final Result [facility] [address] [facility], [address] [place] [address] * TSH (03/22/2024 8:45 AM CDT) TSH 2.40 0.30 - 4.20 uIU/mL 03/22/2024 10:19 AM CDT [facility] Blood BLOOD SPECIMEN / Unknown Venipuncture / Unknown 03/22/2024 8:45 AM CDT 03/22/2024 9:23 AM CDT us Jona Sears MD LAB - BLOOD ORDERABLES Daylin corrales Result [facility] [address] [facility], [address] [place] [address], [facility] from Last 3 Months or Most Recently Relevant to Health Maintenance Insurance [facility] [place] MEDICARE [facility] MEDICARE * Guarantor: Gato Jimenez Account Type Relation to Patient Date of Phone Billing Address Medication Therapy Self [address] [place] [id number] MEDICARE [facility] [place] [facility] [place] MEDICARE Advance Directives For more information, please contact: [phone] * Full Code (Latest Code Status on [...] patie nt/ legal decision maker Care Teams Classified Copy Control Clerk Relationship Specialty Start Date End Date Feliciano Uribe MD [facility] & [address] [address] PCP - General Family Medicine 06/01/23 Christina Roe PA-C [address] [place] [address] Physician Public Safety Dispatcher Rheumatology 11/06/23 Christina Roe PA-C [address] [place] [address] Assigned Rheumatology Provider 11/09/23 Richie Rowell RPH [address] [place] [address] Pharmacist Pharmacist 04/08/24 Richie Rowell RPH [address] [place] [address] Assigned MTM Pharmacist 04/18/24 Zhane Crain MD [address] [place] [phone] Physician Rheumatology 05/14/24 Saeed Berry MD [address] [place] [phone] Assigned Surgical Provider 05/19/24
--- OUTSIDE RECORDS SUMMARY | 2024-08-30 15:47 | XMS_ITS | Encounter Summary ---
Author Organization [place] Address [address] [place] [address] Care Team Providers Care Food Services Coordinator Name Role Phone Feliciano Uribe MD Primary Care Provider Christina Roe PA-C Unavailable Christina Roe PA-C Unavailable Richie Rowell [facility] Unavailable Richie Rowell [facility] Unavailable Zhane Crain MD Unavailable Saeed Berry MD Unavailable [phone] Encounter Details Date Type Department Care Team (Late st Contact Info) Description 05/21/2024 MyC Medical Advice [facility] Rheumatology [facility] [address] [facility] [address] [place] [address] Richie Rowell, [facility] [address] [place] [address] Social History Tobacco Use Types [...] on file Legal Sex Female 3:[address] OFFICER Gender Identity Not on file Sexual Orientation Not on file documented as of this encounter Plan of Treatment Upcoming Encounters Date Type Department Care Team (Late st Contact Info) Description 10/07/2024 9:[address] OFFICER Virtual Visit [facility] Rheumatology [facility] [address] [facility] [address] [place] [phone] Christina Roe PA-C [address] [place] [address] [facility] [address] [place] [address] 10/23/2024 8:[address] PAT[address] OFFICER Lab [facility] [address] [facility] [address] [place] [phone] 10/30/2024 10:[address] OFFICER Office Visit [facility] [address] [facility] [address] [place] [phone] Christina Roe PA-C [address] [place] [address] documented as of this encounter Visit Diagnoses Not on filedocumented in this encounter Care Teams Food Services Coordinator Relationship Specialty Start Date End Date Feliciano Uribe MD [facility] & [address] [address] PCP - General Family Medicine 06/01/23 Christina Roe PA-C [address] [place] [address] Physician Sustainable Products Marketing Manager Rheumatology 11/06/23 Christina Roe PA-C [address] [place] [address] Assigned Rheumatology Provider 11/09/23 Richie Rowell RPH [address] [place] [address] Pharmacist Pharmacist 04/08/24 Richie Rowell RPH [address] [place] [phone] Assigned MTM Pharmacist 04/18/24 Zhane Crain MD [address] [place] [address] Physician Rheumatology 05/14/24 Saeed Berry MD [address] [place] [address] [phone] Assigned Surgical Provider 05/19/24 documented as of this encounter
--- OUTSIDE RECORDS SUMMARY | 2024-08-30 15:47 | XMS_ITS | Clinical Summary ---
Author Organization [facility] Address [place], [place] [address] Care Team Providers Care Matching Machine Operator Name Role Phone Feliciano Uribe MD Primary Care Provider [phone] Allergies Active Allergy Reactions Criticality Noted Date Comments Aspirin GI Bleeding 11/06/2023 Contraindicated due to hx of gastric bypass Medications atorvastatin (LIPITOR) 10 mg tablet Take 10 mg by mouth at bedtime. 07/04/20 22 Active cholecalciferol (VITAMIN D3) 50,000 unit capsule Take 50,000 units by mouth once weekly. 06/26/20 22 Active FLUoxetine (PROZAC) 40 mg capsule Take 40 mg by mouth once daily. 07/04/20 22 Active nitroglycerin (NITROSTAT) 0.[address] 0.4 mg under the tongue every 5 minutes if needed. 11/22/19 22 Active WalkerIndications: Arthritis of knee, right Walker with front wheels for home use. 1 Each 07/27/20 22 Active levothyroxine (SYNTHROID) 150 mcg tablet Take 1 Tablet (150 mcg) by mouth once daily. 09/12/19 24 Active amLODIPine (NORVASC) 5 mg tabletIndications: Hypertension, unspecified type Take 1 Tablet (5 mg) by mouth once daily. 90 Tablet 3 12/11/19 24 Active metoprolol tartrate (LOPRESSOR) 25 mg tabletIndications: SVT (supraventricular tachycardia) (HC) TAKE 1 TABLET(25 MG) BY MOUTH TWICE DAILY 180 Tablet 1 06/16/20 24 Active Additional Information Patient taking differently: 25 mg Oral BID, Reported on 07/08/2024 lisinopriL (PRINIVIL; ZESTRIL) 10 mg tabletIndications: Hypertension TAKE 1 TABLET(10 MG) BY MOUTH TWICE DAILY 180 Tablet 06/16/20 24 Active Additional Information Patient taking differently: 10 mg Oral BID, Reported on 07/08/2024 predniSONE (DELTASONE) 1 mg tablet Take 9 tablets (9 mg) by [...] tablet (1 mg) daily for 14 days. 06/10/20 24 025 Active tocilizumab (Actemra) 162 mg/0.9 mL subcutaneous syringe Inject 162 mg subcutaneous once weekly. 05/15/20 24 Active pantoprazole (PROTONIX) 40 mg delayed-release tablet Take 40 mg by mouth once daily before a meal. 03/27/20 24 Active methocarbamoL 500 mg tablet Take 500 mg by mouth 4 times daily if needed for Muscle Spasm. 03/26/20 24 Active cyanocobalamin (VITAMIN B12) 1,000 mcg/mL injection 1,000 mcg once a month. Active Multivitamin Cmb No.21-Iron-FA 18-400 mg-mcg tab Take 1 Tablet by mouth once daily. Active amoxicillin 500 mg capsule TAKE 2 CAPSULES BY MOUTH TWICE DAILY NEEDED FOR DENTAL PROCEDURES Active calcium carbonate (TUMS) 200 mg calcium (500 mg) chewable tablet Chew 500 mg by mouth once daily. Active clobetasol (TEMOVATE) 0.05 % cream APPLY TO AFFECTED AREAS ON LEG TWICE DAILY FOR 3 WEEKS, THEN TAKE A 1 WEEK BREAK. RESUME NEEDED. 01/10/20 24 Active zoledronic acid in mannitol & water (RECLAST) 5 mg/100 mL infusion Inject 5 mg intravenous. Active oxyCODONE (ROXICODONE) 5 mg immediate release tabletIndications: S/P total knee arthroplasty, left Take 1-2 Tablets (5-10 mg) by mouth every 4 hours if needed for Pain (for moderate to severe pain (5 mg for pain scale rating 4-6; 10 mg for pain scale 7-10)). 26 Tablet 07/09/20 24 Active rivaroxaban (XARELTO) 10 mg tabletIndications: S/P total knee arthroplasty, left Take 1 Tablet (10 mg) by mouth once daily with evening meal. 30 Tablet 07/09/20 24 Active sennosides-docusat e (SENOKOT S) (8.6-50 mg) tabletIndications: S/P total knee arthroplasty, left Take 1 Tablet by mouth 2 times daily if needed for Constipation (Hold for loose stools). 30 Tablet 07/09/20 24 Active acetaminophen (TYLENOL EXTRA STRGTH) 500 mg tabletIndications: S/P total knee arthroplasty, left Take 2 Tablets (1,000 mg) by mouth every 8 hours if needed for Pain. Max acetaminophen dose: 4000mg in 24 hrs. 60 Tablet 1 07/09/20 24 Active ondansetron (ZOFRAN ODT) 4 mg disintegrating tabletIndications: Nausea Place 1 Tablet (4 mg) on the tongue every 8 hours if needed for Nausea/Vomiting. 10 Tablet 07/10/20 24 Active Active Problems Problem Noted Date Diagnosed Date S/P total knee arthroplasty, left 07/09/2024 Giant cell arteritis 07/09/2024 Paroxysmal A-fib 07/09/2024 Overview (07/09/2024): Patient reports atrial fibrillation during hospital stay for upper gastrointestinal bleed. 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 07/22/2022 CAD (coronary artery disease) 04/07/2019 Hyperlipidemia 04/07/2019 Hypothyroidism 04/07/2019 Primary osteoarthritis of both ankles 04/07/2019 Pseudogout 04/07/2019 Anxiety 04/07/2019 Primary hypertension Gastric bypass status for obesity Encounters Date Type Department Care Team Description 07/09/2024 10:02 AM SEO ANALYST Anesthesia Event [address] [address] Michael Cabrera MD [place], Lindsey Theresa, HUMAN RESOURCES OPERATIONS MANAGER 07/09/2024 9:55 AM SEO ANALYST - 07/09/2024 12:10 PM SEO ANALYST Surgery [address] [address] Rubin Mancera MD LEFT TOTAL KNEE ARTHROPLASTY 07/09/2024 7:30 AM SEO ANALYST - 07/10/2024 12:45 PM SEO ANALYST Hospital Encounter [address] [address] Rubin Mancera MD McQuistan, Ian Mark, DO S/P total knee arthroplasty, left (Primary Dx); Nausea Discharge Disposition: Home Self Care 07/09/2024 Travel 06/15/2024 Refill [place] [facility] at [facility] & [address] [address] Ethan Abrams MD Refill Request (Metoprolol Tartrate, Lisinopril) from Last 3 Months Social History Tobacco Use Types Packs/Day Years Used Date Smoking Tobacco: Never Smokeless Tobacco: Never Tobacco Cessation:Counseling Given: Not Answered Alcohol Use Standard Drinks/Week Comments Yes 0 (1 standard drink = 0.6 oz pur e alcohol) occ wine [facility] Utilities Answer Date Recorded Do you have trouble paying f or utilities (for example, heat, electricity, water, phone)? Yes 07/09/2024 Social Connections Answer Date Recorded Do you often feel lonely or isolated from those around you? 0 07/09/2024 Financial Resource Strain Answer Date R ecorded Difficulty of Paying Living Expenses 3 07/09/2024 Difficulty of Paying Living Expenses Not on file 07/09/2024 Food Insecurity Answer Date Recorded Do you worry your food will run out before you are able to buy more? 1 07/09/2024 Transportation Needs Answer Date Record ed Does lack of transportation keep you from medica l appointments? 1 07/09/2024 Does lack of transportation keep you from work, meetings or getting things that you need? 1 07/09/2024 Housing Stability Answer Date Recorded What is your housing situation today? 1 07/09/2024 Interpersonal Safety Answer Date Record ed Are you being hit, kicked, p ushed or yelled at (see row info)? No 07/09/2024 Interpersonal Safety Abuse 12 - 18 Not on file 07/09/2024 Interpersonal Safety Ambulatory Vulnerability No t on file 07/09/2024 Comments No Sex and Gender Information Value Date Recorded Sex Assigned at Not on file Legal Sex Female 8:24 AM SEO ANALYST Gender Identity Not on file Sexual Orientation Not on file Obstetrics History Last Filed Vital Signs Vital Sign Reading Time Taken Comments Blood Pressure 141/69 07/10/2024 8:15 AM SEO ANALYST Pulse 56 07/10/2024 8:15 AM SEO ANALYST Temperature 36.4 C (97.5 F) 07/10/2024 8:03 AM SEO ANALYST Respiratory Rate 24 07/10/2024 8:15 AM SEO ANALYST Oxygen Saturation 96% 07/10/2024 8:15 AM SEO ANALYST Inhaled Oxygen Concentration - - Weight 66.1 kg (145 lb 11.2 oz) 07/09/2024 8:18 AM SEO ANALYST Height 177.8 cm (5' 10) 07/04/2024 3:14 PM SEO ANALYST Body Mass Index 20.91 07/04/2024 3:14 PM SEO ANALYST Plan of Treatment Health Maintenance Due Date Last Done Comments Tdap 1957 Depression screening for age 12+ 1958 BMI (ht and wt on same day) for age 18+ 1964 Hepatitis C screening for age 18-79 1964 Pneumococcal series for age 50+ (1 of 2 - PCV) 1965 Zoster (shingles) series for age 50+ (1 of 2) 1965 Tetanus booster 1966 DEXA/DXA scan for age 65+ 2011 Medicare Wellness for age 65+ 2011 COVID-19 vaccine series (3 - Moderna risk series) 12/10/2020 11/12/2020, 10/15/2020 RSV vaccine for adults or pr egnancy (1 - 1-dose 75+ series) 2021 Influenza for age 65+ 04/27/2024 Medical Devices Implanted Type Area Fly Winder Device Identifier Shelf Expiration Date Model / Serial / Lot Cmnt Bone 40g Simplex P Non Atb Mv - [id number] Implanted:Qty: 1 on 07/09/2024 by Rubin Mancera MD at [facility] Ortho Total Joint Left: Knee [employer] 04/26/2026 6191-1-01 0 / 6191-1-00 1 Tri[employer]lon Cruciate Retaining Femoral Implanted:Qty: 1 on 07/09/2024 by Rubin Mancera MD at [facility] Ortho Total Joint Left: Knee [employer] 04/19/2026 5510-F-20 1 / / [id number] Triathlon Primary Tibial Baseplate Implanted:Qty: 1 on 07/09/2024 by Rubin Mancera MD at [facility] Total Joint Left: Knee [employer] 5520-B-20 0 / / [id number] Insert Tib Sz 2 9mm Knee X3 Condylar Stabilizing Triathlon - [id number] Implanted:Qty: 1 on 07/09/2024 by Rubin Mancera MD at [facility] Orth[facility] Total Joint Left: Knee [employer] 12/01/2028 5531-G-20 9-E / / [id number] Implant Patellar 73kvm3zh Knee X3 Asymmetric Triathlon - [id number] Implanted:Qty: 1 on 07/09/2024 by Rubin Mancera MD at [facility] Orth[facility] Total Joint Left: Knee [employer] 02/11/2029 5551-G-29 9-E / / [id number] Procedures Procedure Name Priority Date/Time Associated Diagnosis Comments GLUCOSE METER Timed 07/10/2024 8:23 AM SEO ANALYST HEMOGLOBIN Early AM 07/10/2024 5:54 AM SEO ANALYST XR KNEE 2 VIEWS LEFT PORTABLE STEFFANY 07/09/2024 12:05 PM SEO ANALYST SPINAL BLOCK Routine 07/09/2024 10:18 AM SEO ANALYST ARTHROPLASTY KNEE 07/09/2024 9:4 2 AM SEO ANALYST Osteoarthritis left knee Case Notes MARIBEL SANTORO - Tarun NEWTON Justine notified via email 05/27 Special Needs CHART MADEH&P scanned, 06/24/2024 Dr Feliciano Queen emailed - to [facility]rg/anes for review pt hx heart failure, Ok'd 07/03 PERIPHERAL BLOCK Routine 07/09/2024 9:23 AM SEO ANALYST PERIPHERAL BLOCK Routine 07/09/2024 9:23 AM SEO ANALYST GLUCOSE METER Timed 07/09/2024 8:50 AM SEO ANALYST POTASSIUM Preop 07/09/2024 8:11 AM SEO ANALYST CREATININE Preop 07/09/2024 8:11 AM SEO ANALYST CBC W PLT NO DIFF Preop 07/09/2024 8:1 1 AM SEO ANALYST SCAN-CARDIAC STRIP 07/09/2024 12:00 AM SEO ANALYST from Last 3 Months Results * (ABNORMAL) GLUCOSE METER (07/10/2024 8:23 AM SEO ANALYST) Only the most recent of2 resultswithin the time period is included. GLUCOSE METER 105(H) 65 - 100 mg/dL 07/10/2024 8:24 AM SEO ANALYST [facility] Blood BLOOD SPECIMEN / Unknown 07/10/2024 8:23 AM SEO ANALYST 07/10/2024 8:24 AM SEO ANALYST us Rubin Mancera MD CHEMISTRY Final Re sult [facility] [address] [place] [address], [place] [phone] * (ABNORMAL) Hemoglobin - in AM (07/10/2024 5:54 AM SEO ANALYST) HEMOGLOBIN 11.7(L) 12.0 - 16.0 g/dL 07/10/2024 6:16 AM SEO ANALYST [facility] MCV 93 80 - 100 fL 07/10/2024 6:16 AM SEO ANALYST [facility] Blood BLOOD SPECIMEN / Unknown Venipuncture / Unknown 07/10/2024 5:54 AM SEO ANALYST 07/10/2024 6:09 AM SEO ANALYST [facility]i [facility] Final Result [facility] [address] [place] [address], * XR KNEE 2 VIEWS LEFT PORTABLE (07/09/2024 12:05 PM SEO ANALYST) Anatomical Region Laterality Modality KNEE L Computed Radiogr aphy 07/09/2024 12:0 5 PM SEO ANALYST Impressions 07/09/2024 12:12 PM SEO ANALYST Interval postsurgical changes of a left knee arthroplasty. No radiographic evidence of hardware complication. Expected postoperative changes of subcutaneous emphysema and edema. Narrative 07/09/2024 12:12 PM SEO ANALYST For Patients: As a result of the Cures Act, medical imaging exams and procedure reports are released immediately into your electronic medical record. You may view this report before your referring provider. If you have questions, please contact your health care provider. EXAM: XR KNEE 2 VIEWS LEFT PORTABLE LOCATION: [facility] DATE: 07/09/2024 INDICATION: Immediate post-operative joint positioning evaluation. COMPARISON: None. Procedure Note Jeffrey Moralez MD - 07/09/2024 For Patients: As a result of the Cures Act, medical imagingexams and procedure reports are released immediately into your electronicmedical record. You may view this report before your referring provider.If you have questions, please contact your health care provider. EXAM: XR KNEE 2 VIEWS LEFT PORTABLE LOCATION: [facility] DATE: 07/09/2024 INDICATION: Immediate post-operative joint positioning evaluation. COMPARISON: None. IMPRESSION: Interval postsurgical changes of a left knee arthroplasty. No radiographicevidence of hardware complication. Expected postoperative changes ofsubcutaneous emphysema and edema. Thi [facility] Final Result * [facility] TRAY PR10 (07/09/2024 10:18 AM SEO ANALYST) Narrative Neil Maravilla HUMAN RESOURCES OPERATIONS MANAGER - 07/09/2024 10:18 AM SEO ANALYST Neil Maravilla CRNA 07/09/2024 10:19 AM Spinal Block Patient location during procedure: OR Reason for block: primary anesthetic PreProcedure Checklist Completed: patient identified, risks and benefits discussed, timeout performed, hand hygiene performed, chloraprep used and completely dried prior to procedure, IV checked, site marked, surgical consent and hand hygiene performed Spinal Block Patient position: sitting Prep: chloraprep Patient monitoring: continuous pulse oximetry Approach: midline Skin Infiltration: lidocaine 1% Location: L4-5 Needle Needle type: pencil-point Needle gauge: 24 G Needle length: 4 in Assessment Events: no complications. Michael Cabrera MD ANESTHESIA PX NOTE ORDE RABLES Final Result * [facility] NDL PR10, [facility] ANES BLOCK INJ PERIPH (07/09/2024 9:23 AM SEO ANALYST) Narrative Michael Cabrera MD - 07/09/2024 9:23 AM SEO ANALYST Michael Cabrera MD 07/09/2024 9:23 AM Peripheral Block Patient location during procedure: block center Start time: 07/09/2024 9:09 AM End time: 07/09/2024 9:10 AM Reason for block: at surgeon's request and post-op pain Requesting provider: Rubin Mancera MD PreProcedure Checklist Completed: patient identified, site marked, risks and benefits discussed, surgical consent, timeout performed and hand hygiene performed. Peripheral Block Patient position: supine Prep: chloraprep Patient monitoring: continuous pulse oximetry, blood pressure and ECG Supplemental O2: yes Neuro Status: mild sedation Block type: adductor canal and lower extremity , regional analgesia techniques Lower extremity block type: adductor canal block of the femoral nerve Laterality: left Injection technique: single injection Injection assessment: incremental Needle Needle type: short-bevel Needle Details: echogenic Needle gauge: 21 G Needle length: 100 mm Unilateral needle localization (ultrasound): live ultrasound guidance, no pathologic findings and permanent images obtained. Unilateral needle Localization (plane blocks): needle and expected nerve location visualized, local anesthetic visualized in anatomic plane and anatomic plane and expected location of nerve appears normal Catheter Catheter used:no Events: no complications. Michael Cabrera MD ANESTHESIA PX NOTE YONAS GILL Final Result * CBC with Platelets no Differential (07/09/2024 8:11 AM SEO ANALYST) WHITE BLOOD COUNT 6.0 4.5 - 11.0 thou/cu mm 07/09/2024 8:16 AM [facility] RED BLOOD COUNT 4.42 4.00 - 5.20 mil/cu mm 07/09/2024 8:16 AM [facility] HEMOGLOBIN 13.4 12.0 - 16.0 g/dL 07/09/2024 8:16 AM [facility] HEMATOCRIT 41.1 33.0 - 51.0 % 07/09/2024 8:16 AM [facility] MCV 93 80 - 100 fL 07/09/2024 8:16 AM [facility] MCH 30.3 26.0 - 34.0 pg 07/09/2024 8:16 AM [facility] MCHC 32.6 32.0 - 36.0 g/dL 07/09/2024 8:16 AM [facility] RDW 14.5 11.5 - 15.5 % 07/09/2024 8:16 AM [facility] PLATELET COUNT 165 140 - 440 thou/cu mm 07/09/2024 8:16 AM [facility] MPV 10.5 6.5 - 11.0 fL 07/09/2024 8:16 AM [facility] NRBC 0.0 % 07/09/2024 8:16 AM SEO ANALYST [facility] ABS NRBC 0.0 thou /cu mm 07/09/2024 8:16 AM SEO ANALYST [facility] Blood BLOOD SPECIMEN / Unknown Butterfly / Unknown 07/09/2024 8:11 AM SEO ANALYST 07/09/2024 8:14 AM SEO ANALYST us Marialuisa [facility] Final Result [facility] [address] [place] [id number], * Potassium (07/09/2024 8:11 AM SEO ANALYST) POTASSIUM 4.1 3.5 - 5.1 mmol/L 07/09/2024 8:35 AM SEO ANALYST [facility] Blood BLOOD SPECIMEN / Unknown Butterfly / Unknown 07/09/2024 8:11 AM SEO ANALYST 07/09/2024 8:14 AM SEO ANALYST Marialuisa [facility] Final Result Performing Organization Address City/[facility]/ZIP Co de Phone Number [facility] [address] [place] [id number], * (ABNORMAL) Creatinine (07/09/2024 8:11 AM SEO ANALYST) eGFR 89(L) >90 mL/min/1.7 3m2 07/09/2024 8:35 AM SEO ANALYST [facility] Comment:As of 2021, eG FR is calculated by the CKD-EPI creatinine equation without race adjustment. eGFR can be influenced by muscle mass, exercise, and diet. The reported eGFR is an estimation only and is only applicable if the renal function is stable. CREATININE 0.68 0.50 - 0.90 mg/dL 07/09/2024 8:35 AM SEO ANALYST [facility] Blood BLOOD SPECIMEN / Unknown Butterfly / Unknown 07/09/2024 8:11 AM SEO ANALYST 07/09/2024 8:14 AM SEO ANALYST us Marialuisa [facility] Final Result [facility] [address] [place] [address], * SCAN-CARDIAC STRIP (07/09/2024 12:00 AM SEO ANALYST) Narrative 07/09/2024 12:00 AM SEO ANALYST Ordered by an unspecified provider. Other Clinical Staff OTHER Final Resul t from Last 3 Months Insurance BLUE CROSS [employer] BLUE MR PB ONLY BLUE CROSS [employer] BLUE HB ONLY MEDICARE PART A HB ONLY MEDICARE PART B HB ONLY Advance Directives * Full Code (Latest Code Status on File) Date Activated Date Inactivated Comments 07/09/2024 7:51 AM 07/10/2024 2:58 PM Question Answer Comments Code Status Discussion: Unable to Assess Preferences, Provider to review later * Full Code Date Activated Date Inactivated Comments 07/22/2022 1:18 PM 07/27/2022 7:46 PM Question Answer Comments Code Status Discussion: Reviewed Preferences Care Teams Matching Machine Operator Relationship Specialty Start Date End Date Feliciano Uribe MD [address] [place] [address] PCP - General Family Practice 09/01/22
--- OUTSIDE RECORDS SUMMARY | 2024-08-30 15:47 | XMS_ITS | Encounter Summary ---
Author Organization [facility] Address [address] [place] [address] Care Team Providers Care Sausage Tier Name Role Phone Feliciano Uribe MD Primary Care Provider [phone] Christina Roe PA-C Unavailable Christina Roe PA-C Unavailable [phone] Richie Rowell [facility] Unavailable Richie Rowell [facility] Unavailable Zhane Crain MD Unavailable Saeed Berry MD Unavailable [phone] Encounter Details Date Type Department Care Team (Late st Contact Info) Description 05/09/2024 MyC Medical Advice [facility] [address] [place] [phone] Adalberto Boles Social History Tobacco Use [...] on file Legal Sex Female 3:41 AM TRACK RIDER Gender Identity Not on file Sexual Orientation Not on file documented as of this encounter Plan of Treatment Upcoming Encounters Date Type Department Care Team (Late st Contact Info) Description 10/07/2024 9:30 AM TRACK RIDER Virtual Visit [facility] Rheumatology [place] [address] [facility] [address] [place] [id number] Christina Roe PA-C [address] [place] [address] Richie Rowell, [facility] [address] [place] [address] 10/23/2024 8:00 AM TRACK RIDER Lab [facility] [address] [facility] [address] [place] [phone] 10/30/2024 10:00 AM TRACK RIDER Office Visit [facility] [address] [place] [address] [address] [place] [phone] Christina Roe PA-C [address] [place] [address] documented as of this encounter Visit Diagnoses Not on filedocumented in this encounter Care Teams Sausage Tier Relationship Specialty Start Date End Date Feliciano Uribe MD [facility] [address] [place] [address] PCP - General Family Medicine 06/01/23 Christina Roe PA-C [address] [place] [address] Physician Gymnastic Coach Rheumatology 11/06/23 Christina Roe PA-C [address] [place] [address] Assigned Rheumatology Provider 11/09/23 Richie Rowell [facility] [address] [place] [address] Pharmacist Pharmacist 04/08/24 Richie Rowell RP [address] [place] [address] Assigned MTM Pharmacist 04/18/24 Zhane Crain MD [address] [place] [phone] Physician Rheumatology 05/14/24 Saeed Berry MD [address] [place] [id number] Assigned Surgical Provider 05/19/24 documented as of this encounter
--- OUTSIDE RECORDS SUMMARY | 2024-08-30 15:47 | XMS_ITS | Encounter Summary ---
Author Organization [place] Address [address] [place] [address] Care Team Providers Care Maple Sugar Maker Name Role Phone Feliciano Uribe MD Primary Care Provider Christina Roe PA-C Unavailable Christina Roe PA-C Unavailable Richie Rowell [facility] Unavailable Richie Rowell [facility] Unavailable Zhane Crain MD Unavailable Saeed Berry MD Unavailable [phone] Encounter Details Date Type Department Care Team (Late st Contact Info) Description 07/31/2024 1:45 PM TOOTH CUTTER Lab [facility] [place] [facility] [address] [place] [phone] GCA (giant cell arteritis) (H); PMR (polymyalgia rheumatica) (H) Social History [...] on file Legal Sex Female 3:41 AM TOOTH CUTTER Gender Identity Not on file Sexual Orientation Not on file documented as of this encounter Plan of Treatment Upcoming Encounters Date Type Department Care Team (Late st Contact Info) Description 10/07/2024 9:30 AM TOOTH CUTTER Virtual Visit [facility] [place]umatology [place] [address] [facility] [address] [place] [phone] Christina Roe PA-C [address] [place] [address] Richie Rowell, [facility] [address] [place] [address] 10/23/2024 8:00 AM TOOTH CUTTER Lab [facility] [address] [facility] [address] [place] [phone] 10/30/2024 10:00 AM TOOTH CUTTER Office Visit [facility] [address] [facility] [address] [place] [phone] Christina Roe PA-C [address] [place] [address] documented as of this encounter Procedures Procedure Name Priority Date/Time Associated Diagnosis Comments CBC WITH PLATELETS AND DIFFERENTIAL Routine 07/31/2024 1:51 PM TOOTH CUTTER GCA (giant cell arteritis) (H) PMR (polymyalgia rheumatica) (H) CBC WITH PLATELETS & DIFFERENTIAL Routine 07/31/2024 1:51 PM TOOTH CUTTER GCA (giant cell arteritis) (H) PMR (polymyalgia rheumatica) (H) ERYTHROCYTE SEDIMENTATION RATE AUTO Routine 07/31/2024 1:51 PM TOOTH CUTTER GCA (giant cell arteritis) (H) PMR (polymyalgia rheumatica) (H) CRP INFLAMMATION Routine 07/31/2024 1:51 PM TOOTH CUTTER GCA (giant cell arteritis) (H) PMR (polymyalgia rheumatica) (H) CREATININE Routine 07/31/2024 1:51 PM TOOTH CUTTER GCA (giant cell arteritis) (H) PMR (polymyalgia rheumatica) (H) AST Routine 07/31/2024 1:51 PM TOOTH CUTTER GCA (giant cell arteritis) (H) PMR (polymyalgia rheumatica) (H) ALT Routine 07/31/2024 1:51 PM TOOTH CUTTER GCA (giant cell arteritis) (H) PMR (polymyalgia rheumatica) (H) ALBUMIN LEVEL Routine 07/31/2024 1:51 PM TOOTH CUTTER GCA (giant cell arteritis) (H) PMR (polymyalgia rheumatica) (H) documented in this encounter Results * (ABNORMAL) CBC with platelets and differential (07/31/2024 1:51 PM TOOTH CUTTER) [facility] WBC Count 5.1 4.0 - 11.0 10e3/uL 07/31/2024 2:07 PM TOOTH CUTTER [facility] RBC Count 4.53 3.80 - 5.20 10e6/uL 07/31/2024 2:07 PM TOOTH CUTTER [facility] Hemoglobin 13.8 11.7 - 15.7 g/dL 07/31/2024 2:07 PM TOOTH CUTTER [facility] Hematocrit 43.9 35.0 - 47.0 % 07/31/2024 2:07 PM TOOTH CUTTER [facility] MCV 97 78 - 100 fL 07/31/2024 2:07 PM TOOTH CUTTER [facility] MCH 30.5 26.5 - 33.0 pg 07/31/2024 2:07 PM TOOTH CUTTER [facility] MCHC 31.4(L) 31.5 - 36.5 g/dL 07/31/2024 2:07 PM TOOTH CUTTER [facility] RDW 15.8(H) 10.0 - 15.0 % 07/31/2024 2:07 PM TOOTH CUTTER [facility] Platelet Count 251 150 - 450 10e3/uL 07/31/2024 2:07 PM TOOTH CUTTER [facility] % Neutrophils 60 % 07/31/2024 2:07 PM TOOTH CUTTER [facility] % Lymphocytes 13 % 07/31/2024 2:07 PM TOOTH CUTTER [facility] % Monocytes 20 % 07/31/2024 2:07 PM TOOTH CUTTER [facility] % Eosinophils 6 % 07/31/2024 2:07 PM TOOTH CUTTER [facility] % Basophils 1 % 07/31/2024 2:07 PM TOOTH CUTTER [facility] % Immature Granulocytes 0 % 07/31/2024 2:07 PM TOOTH CUTTER [facility] Absolute Neutrophils 3.1 1.6 - 8.3 10e3/uL 07/31/2024 2:07 PM TOOTH CUTTER [facility] Absolute Lymphocytes 0.7(L) 0.8 - 5.3 10e3/uL 07/31/2024 2:07 PM TOOTH CUTTER [facility] Absolute Monocytes 1.0 0.0 - 1.3 10e3/uL 07/31/2024 2:07 PM TOOTH CUTTER [facility] Absolute Eosinophils 0.3 0.0 - 0.7 10e3/uL 07/31/2024 2:07 PM TOOTH CUTTER [facility] Absolute Basophils 0.0 0.0 - 0.2 10e3/uL 07/31/2024 2:07 PM TOOTH CUTTER [facility] Absolute Immature Granulocytes 0.0 <=0.4 10e3/uL 07/31/2024 2:07 PM TOOTH CUTTER [facility] Blood BLOOD SPECIMEN / Unknown Venipuncture / Unknown 07/31/2024 1:51 PM TOOTH CUTTER 07/31/2024 1:51 PM TOOTH CUTTER Christina Roe PA-C LAB - BLOOD ORDERABLES Final Result [facility] [address] * Albumin level (07/31/2024 1:51 PM TOOTH CUTTER) [facility] Albumin 4.5 3.5 - 5.2 g/dL 07/31/2024 9:37 PM TOOTH CUTTER [facility] Blood BLOOD SPECIMEN / Unknown Venipuncture / Unknown 07/31/2024 1:51 PM TOOTH CUTTER 07/31/2024 1:51 PM TOOTH CUTTER Christina KAPOOR-Veena LAB - BLOOD ORDERABLES Final Result [facility] [place] [facility] [address] [facility], [address] * ALT (07/31/2024 1:51 PM TOOTH CUTTER) ALT 33 0 - 50 U/L 07/31/2024 9:3 7 PM TOOTH CUTTER [facility] Blood BLOOD SPECIMEN / Unknown Venipuncture / Unknown 07/31/2024 1:51 PM TOOTH CUTTER 07/31/2024 1:51 PM TOOTH CUTTER Christina KAPOOR-C LAB - BLOOD ORDERABLES Final Result Performing Organization Address City/[facility]/ZIP Co de Phone Number [facility] [address] [facility], [address] * AST (07/31/2024 1:51 PM TOOTH CUTTER) AST 29 0 - 45 U/L 07/31/2024 9:3 7 PM TOOTH CUTTER [facility] Blood BLOOD SPECIMEN / Unknown Venipuncture / Unknown 07/31/2024 1:51 PM TOOTH CUTTER 07/31/2024 1:51 PM TOOTH CUTTER Christina KAPOOR-C LAB - BLOOD ORDERABLES Final Result [facility] [place] [facility] [address] [facility], [address] * Creatinine (07/31/2024 1:51 PM TOOTH CUTTER) Creatinine 0.75 0.51 - 0.95 mg/dL 07/31/2024 9:37 PM TOOTH CUTTER [facility] GFR Estimate 81 >60 mL/min/1.7 3m2 07/31/2024 9:37 PM TOOTH CUTTER [facility] Comment:eGFR calculated 2020 CKD-EPI equation. Blood BLOOD SPECIMEN / Unknown Venipuncture / Unknown 07/31/2024 1:51 PM TOOTH CUTTER 07/31/2024 1:51 PM TOOTH CUTTER Christina WRIGHTC LAB - BLOOD ORDERABLES Final Result [facility] [place] [facility] [address] [facility], [address] [phone] * Erythrocyte sedimentation rate auto (07/31/2024 1:51 PM TOOTH CUTTER) Erythrocyte Sedimentation Rate 5 0 - 30 mm/hr 07/31/2024 2:14 PM TOOTH CUTTER [facility] Blood BLOOD SPECIMEN / Unknown Venipuncture / Unknown 07/31/2024 1:51 PM TOOTH CUTTER 07/31/2024 1:51 PM TOOTH CUTTER Christina KAPOOR-C LAB - BLOOD ORDERABLES Final Result [facility] [address] * CRP inflammation (07/31/2024 1:51 PM TOOTH CUTTER) CRP Inflammation <3.00 <5.00 mg/L 07/31/20 9:37 PM TOOTH CUTTER [facility] Blood BLOOD SPECIMEN / Unknown Venipuncture / Unknown 07/31/2024 1:51 PM TOOTH CUTTER 07/31/2024 1:51 PM TOOTH CUTTER Christina KAPOOR-C LAB - BLOOD ORDERABLES Final Result [facility] [place] [facility] [address] [facility], Room [address] [place] [phone] documented in this encounter Visit Diagnoses Diagnosis GCA (giant cell arteritis) (H) Giant cell arteritis PMR (polymyalgia rheumatica) (H) Polymyalgia rheumatica documented in this encounter Care Teams Maple Sugar Maker Relationship Specialty Start Date End Date Feliciano Uribe MD [address] [address] PCP - General Family Medicine 06/01/23 Christina Roe PA-C [address] [place] [address] Physician Chocolate Dipper Rheumatology 11/06/23 Christina Roe PA-C [address] [place] [address] Assigned Rheumatology Provider 11/09/23 Richie Rowell Justine [address] [place] [address] Pharmacist Pharmacist 04/08/24 Richie Rowell RPH [address] [place] [address] Assigned MTM Pharmacist 04/18/24 Zhane Crain MD [address] [place] [address] Physician Rheumatology 05/14/24 Saeed Berry MD [address] [place] [address] Assigned Surgical Provider 05/19/24 documented as of this encounter
--- OUTSIDE RECORDS SUMMARY | 2024-08-30 15:47 | XMS_ITS | Encounter Summary ---
Author Organization [place] Address [address] [place] [address] Care Team Providers Care Geosciences Associate Professor Name Role Phone Feliciano Uribe MD Primary Care Provider Christina Roe PA-C Unavailable Christina Roe PA-C Unavailable Richie Rowell [facility] Unavailable Richie Rowell [facility] Unavailable Zhane Crain MD Unavailable Saeed Berry MD Unavailable [phone] Encounter Details Date Type Department Care Team (Latest Contact Info) Description 07/31/2024 Travel Social History Tobacco Use Types Packs/Day [...] on file Legal Sex Female 3:41 AM GRE TUTOR Gender Identity Not on file Sexual Orientation Not on file documented as of this encounter Plan of Treatment Upcoming Encounters Date Type Department Care Team (Late st Contact Info) Description 10/07/2024 9:30 AM GRE TUTOR Virtual Visit [facility] Rheumatology MTM [address] [facility] 101 [place] [phone] Christina Roe PA-C [address] [place] [address] Richie Rowell RPH [address] [place] [address] 10/23/2024 8:00 AM GRE TUTOR Lab [facility] [address] [facility] 120 [place] [phone] 10/30/2024 10:00 AM GRE TUTOR Office Visit [facility] [address] [place] [address] 200 [place] [phone] Christina Roe PA-C [address] [place] [address] documented as of this encounter Visit Diagnoses Not on filedocumented in this encounter Care Teams Geosciences Associate Professor Relationship Specialty Start Date End Date Feliciano Uribe MD [address] [address] PCP - General Family Medicine 06/01/23 Christina Roe PA-C [address] [place] [address] Physician Cement Gun Operator Rheumatology 11/06/23 Christina Roe PA-C [address] [place] [address] Assigned Rheumatology Provider 11/09/23 Richie Rowell RPH [address] [place] [address] Pharmacist Pharmacist 04/08/24 Richie Rowell [facility] 9[address] [place] [address] Assigned MTM Pharmacist 04/18/24 Zhane Crain MD [address] [place] [address] Physician Rheumatology 05/14/24 Saeed Berry MD [address] [place] [address] Assigned Surgical Provider 05/19/24 documented as of this encounter
--- OUTSIDE RECORDS SUMMARY | 2024-08-30 15:48 | XMS_ITS | Encounter Summary ---
Author Organization [place] Address [address] [place] [address] Care Team Providers Care Corn Crop Supervisor Name Role Phone Feliciano Uribe MD Primary Care Provider [phone] Christina Roe PA-C Unavailable Christina Roe PA-C Unavailable [phone] Richie Rowell [facility] Unavailable Richie Rowell [facility] Unavailable Zhane Crain MD Unavailable Saeed Berry MD Unavailable [phone] Encounter Details Date Type Department Care Team (Late st Contact Info) Description 01/21/2024 MyC Medical Advice [address] [place] [address] Christina Roe PA-C [address] [place] [address] Social History Tobacco Use Types Packs/Day Years [...] on file Legal Sex Female 3:41 AM PHARMACY TECHNICIAN INPATIENT Gender Identity Not on file Sexual Orientation Not on file documented as of this encounter Plan of Treatment Upcoming Encounters Date Type Department Care Team (Late st Contact Info) Description 10/07/2024 9:30 AM PHARMACY TECHNICIAN INPATIENT Virtual Visit [facility] Rheumatology [facility] [address] [facility] [address] [place] [phone] Christina Roe PA-C [address] [place] [address] Richie Rowell, [facility] [address] [place] [address] 10/23/2024 8:00 AM PHARMACY TECHNICIAN INPATIENT Lab [facility] [address] [facility] 120 [place] [phone] 10/30/2024 10:00 AM PHARMACY TECHNICIAN INPATIENT Office Visit [facility] [address] [facility] [address] [place] [phone] Christina Roe PA-C [address] [place] [address] documented as of this encounter Visit Diagnoses Not on filedocumented in this encounter Care Teams Corn Crop Supervisor Relationship Specialty Start Date End Date Feliciano Uribe MD [facility] [address] [address] PCP - General Family Medicine 06/01/23 Christina Roe PA-C [address] [place] [address] Physician Modeling And Simulation Analyst Rheumatology 11/06/23 Christina Roe PA-C [address] [place] [address] Assigned Rheumatology Provider 11/09/23 Richie Rowell RPH [address] [place] [address] Pharmacist Pharmacist 04/08/24 Richie Rowell RP [address] [place] [address] Assigned MTM Pharmacist 04/18/24 Zhane Crain MD [address] [place] [address] Physician Rheumatology 05/14/24 Saeed Berry MD [address] [place] [address] Assigned Surgical Provider 05/19/24 documented as of this encounter
--- OUTSIDE RECORDS SUMMARY | 2024-08-30 15:48 | XMS_ITS | Encounter Summary ---
Author Organization [facility] Address [address] [place] [address]. [place] [address] Care Team Providers Care Trampoline Team Coach Name Role Phone Feliciano Uribe MD Primary Care Provider Christina Roe PA-C Unavailable Christina Roe PA-C Unavailable Richie Rowell [facility] Unavailable Richie Rowell [facility] Unavailable Zhane Crain MD Unavailable Saeed Berry MD Unavailable [phone] Encounter Details Date Type Department Care Team (Late st Contact Info) Description 03/22/2024 Ophth Exam [facility] Services - Eye Care Service Line [address] [place] [phone] Luis Alberto Anderson MD [address] [place] [address] Social History Tobacco Use Types Packs/Day [...] file Legal Sex Female 3:41 AM HAND COPER Gender Identity Not on file Sexual Orientation Not on file documented as of this encounter Plan of Treatment Upcoming Encounters Date Type Department Care Team (Late st Contact Info) Description 10/07/2024 9:30 AM HAND COPER Virtual Visit [facility] Rheumatology [facility] [address] [facility] [address] [place] [phone] Christina Roe PA-C [address] [place] [address] [facility] 909 [place] [address] 10/23/2024 8:00 AM HAND COPER Lab [facility] [address] [place] [phone] 10/30/2024 10:00 AM HAND COPER Office Visit [facility] [address] [place] [phone] Christina Roe PA-C [address] [place] [address] documented as of this encounter Visit Diagnoses Not on filedocumented in this encounter Care Teams Trampoline Team Coach Relationship Specialty Start Date End Date Feliciano Uribe MD [address] [address] PCP - General Family Medicine 06/01/23 Christina Roe PA-C [address] [place] [address] Physician Brassiere Cup Mold Cutter Rheumatology 11/06/23 Christina Roe PA-C [address] [place] [address] Assigned Rheumatology Provider 11/09/23 Richie Rowell RPH [address] [place] [address] Pharmacist Pharmacist 04/08/24 Richie Rowell RPH [address] [place] [address] Assigned MTM Pharmacist 04/18/24 Zhane Crain MD [address] [place] [address] Physician Rheumatology 05/14/24 Saeed Berry MD [address] [place] [phone] Assigned Surgical Provider 05/19/24 documented as of this encounter
--- OUTSIDE RECORDS SUMMARY | 2024-08-30 15:48 | XMS_ITS | Referral Summary ---
Author Organization [facility] Address [address] [place] [address] Care Team Providers Care Driving School Instructor Name Role Phone Unavailable Primary Care Provider Unavailabl e Source Comments Patient records contain information from all sites at [facility]. For routine questions regarding patient records, call [phone] during business hours, M-F 8:00 AM - 5:00 PM Central Time. Record requests for emergency care only can be directed to [phone] at any time.[facility] Allergies No known active allergies Medications * [...] How often do you attend chur or christianity services? More than 4 times per year 10/10/2022 Do you belong to any clubs o r organizations such as restoration groups, unions, fraternal or athletic groups, or [...] and heating? Not hard at all 10/10/2022 [facility] [place] [facility] Occupat ional Health - Occupational Stress [...] Sex Assigned at Female 10/10/2022 4:07 PM ANESTHESIA DIRECTOR Legal Sex Female 6:05 AM ANESTHESIA DIRECTOR Gender Identity Female 07/16/2018 12:55 PM ANESTHESIA DIRECTOR Sexual Orientation Straight 07/16/2018 12 :55 PM ANESTHESIA DIRECTOR Last Filed Vital Signs Vital Sign Reading Time Taken Comments Blood Pressure 163/73 10/31/2022 12:17 PM ANESTHESIA DIRECTOR Pulse 75 10/31/2022 12:17 PM ANESTHESIA DIRECTOR Temperature 36.5 C (97.7 F) 10/31/2022 12:27 PM ANESTHESIA DIRECTOR Respiratory Rate 20 10/31/2022 12:1 7 PM ANESTHESIA DIRECTOR Oxygen Saturation 96% 10/31/2022 12: 17 PM ANESTHESIA DIRECTOR Inhaled Oxygen Concentration - - Weight 55.2 kg (121 lb 11.1 oz) 11/01/2022 9:18 AM ANESTHESIA DIRECTOR Height 152 cm (4' 11.84) 11/01/2022 9:18 AM ANESTHESIA DIRECTOR Body Mass Index 23.89 11/01/2022 9:18 AM ANESTHESIA DIRECTOR Plan of Treatment Not on file Medical Devices Implanted Type Area Ironing Pleater Device Identifier Shelf Expiration Date Model / Serial / Lot Knee Implant- [id number] Implanted:01/2022 (Quantity not on file) Knee Implant Right: Knee Ocular Lens Ocular Lens Bilatera l: Eye Procedures Procedure Name Priority Date/Time Associated Diagnosis Comments COMPREHENSIVE METABOLIC PANEL, S/P Routine 10/17/2022 10:01 AM ANESTHESIA DIRECTOR 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, S Routine 06/23/2019 10:25 AM CDT Overweight Body Mass Index 25-29.9 Adult Hypertension Essential Primary Hyperlipidemia Family History Coronary Artery Disease Elevated Liver Enzyme Abnormal, Aspartate Transaminase, Serum Glutamic-Oxaloacetic Transaminase, Alanine Transaminase Hypothyroidism Primary from Last 3 Months or Most Recently Relevant to Health Maintenance Results * Comprehensive Metabolic Panel (10/17/2022 10:01 AM ANESTHESIA DIRECTOR) Potassium, S 4.5 3.6 - 5.2 mmol/L 10/17/2022 11:02 AM ANESTHESIA DIRECTOR DTL Sodium, S 141 135 - 145 mmol/L 10/17/2022 11:02 AM ANESTHESIA DIRECTOR DTL Chloride, S 106 98 - 107 mmol/L 10/17/2022 11:02 AM ANESTHESIA DIRECTOR DTL Bicarbonate, S 26 22 - 29 mmol/L 10/17/2022 11:02 AM ANESTHESIA DIRECTOR DTL Anion Gap 9 7 - 15 10/17/2022 11:02 AM ANESTHESIA DIRECTOR DTL BUN (Blood Urea Nitrogen), S 12 6 - 21 mg/dL 10/17/2022 11:02 AM ANESTHESIA DIRECTOR DTL Creatinine 0.59 0.59 - 1.04 mg/dL 10/17/2022 11:02 AM ANESTHESIA DIRECTOR DTL Estimated GFR (eGFR) >90 >=60 mL/min/BS A 10/17/2022 11:02 AM ANESTHESIA DIRECTOR DTL Comment: Estimated GFR calculated using the 2020 CKD_EPI creatinine equation. Calcium, Total, S 9.7 8.8 - 10.2 mg/dL 10/17/2022 11:02 AM ANESTHESIA DIRECTOR DTL Glucose, S 100 70 - 140 mg/dL 10/17/2022 11:02 AM ANESTHESIA DIRECTOR DTL Protein, Total, S 6.8 6.3 - 7.9 g/dL 10/17/2022 11:02 AM ANESTHESIA DIRECTOR DTL Albumin, S 4.5 3.5 - 5.0 g/dL 10/17/2022 11:02 AM ANESTHESIA DIRECTOR DTL Aspartate Aminotransferase (AST), S 23 8 - 43 U/L 10/17/2022 11:02 AM ANESTHESIA DIRECTOR DTL Alkaline Phosphatase, S 83 35 - 104 U/L 10/17/2022 11:02 AM ANESTHESIA DIRECTOR DTL Alanine Aminotransferase (ALT), S 23 7 - 45 U/L 10/17/2022 11:02 AM ANESTHESIA DIRECTOR DTL Bilirubin, Total, S 0.3 <=1.2 mg/dL 10/17/2022 11:02 AM ANESTHESIA DIRECTOR DTL Blood (Blood, Venous) 10/17/2022 10:01 AM ANESTHESIA DIRECTOR 10/17/2022 10:38 AM ANESTHESIA DIRECTOR Merlyn Cobos M.D. LAB BLOOD ADD-O N Final Result [facility] [address] [place] [address], [facility] [address] [place] [address] * (ABNORMAL) Thyroid Function O'Brien (06/23/2019 10:25 AM CDT) TSH, Sensitive 6.0(H) 0.3 - 4.2 mIU/L 06/24/2019 8:43 AM CDT DTL Blood (Blood, Venous) 06/23/2019 10:25 AM CDT 06/24/2019 7:34 AM CDT Narrative Resulting Agency Comment Mailed In Specimen Sony Rodriguez APRN, C.N.P., D.N.P. LAB BLOOD A DD-ON Final Result [facility] [address] [place] [address], [place] DTL [facility] [address] [place] [address] from Last 3 Months or Most Recently Relevant to Health Maintenance Insurance MEDICARE [facility]
--- OUTSIDE RECORDS SUMMARY | 2024-08-30 15:48 | XMS_ITS | Clinical Summary ---
Author Organization [facility] Address [address] [address] Care Team Providers Care Advertising Project Manager Name Role Phone Unavailable Primary Care Provider Unavailabl e Source Comments Patient records contain information from all sites at [facility]. For routine questions regarding patient records, call [phone] during business hours, M-F 8:00 AM - 5:00 PM Central Time. Record requests for emergency care only can be directed to [phone] at any time.[facility] Allergies No known active allergies Medications [...] week 10/10/2022 How often do you attend [facility] or orthodox services? More than 4 times per year [...] Not hard at all 10/10/2022 [facility] [place] of Occupat ional Health - Occupational Stress [...] Sex Assigned at Female 10/10/2022 4:07 PM SALES MARKETING MANAGER Legal Sex Female 6:05 AM SALES MARKETING MANAGER Gender Identity Female 07/16/2018 12:55 PM SALES MARKETING MANAGER Sexual Orientation Straight 07/16/2018 12 :55 PM SALES MARKETING MANAGER Last Filed Vital Signs Vital Sign Reading Time Taken Comments Blood Pressure 163/73 10/31/2022 12:17 PM SALES MARKETING MANAGER Pulse 75 10/31/2022 12:17 PM SALES MARKETING MANAGER Temperature 36.5 C (97.7 F) 10/31/2022 12:27 PM SALES MARKETING MANAGER Respiratory Rate 20 10/31/2022 12:1 7 PM SALES MARKETING MANAGER Oxygen Saturation 96% 10/31/2022 12: 17 PM SALES MARKETING MANAGER Inhaled Oxygen Concentration - - Weight 55.2 kg (121 lb 11.1 oz) 11/01/2022 9:18 AM SALES MARKETING MANAGER Height 152 cm (4' 11.84) 11/01/2022 9:18 AM SALES MARKETING MANAGER Body Mass Index 23.89 11/01/2022 9:18 AM SALES MARKETING MANAGER Plan of Treatment Health Maintenance Due Date Last Done Comments Hepatitis C Screening 1945 Hepatitis A Vaccines (1 of 2 - Risk 2-dose series) 1965 Zoster Vaccines (1 of 2) 1965 Hepatitis B Vaccines (1 of 3 - Risk 3-dose series) 2006 RSV vaccine - (32-36 weeks) or 60+ years (1 - 1-dose 75+ series) 2021 Office Visit for Blood Pressure Check / Re-check 01/14/2023 10/17/2022 Depression Screening (Annual PHQ-2) 08/27/2023 Fall Risk Screen (Annual) 08/27/2023 COVID-19 Vaccine ( season) 2024 05/14/2022, 11/12/2020, 10/15/2020 Influenza Vaccine (#1) 2024 , 05/07/2022, 07/19/2021, Additional history exists Thyroid Stimulating Hormone (TSH) test for thyroid function 03/22/2025 03/22/2024, 07/26/2022, 06/23/2019, Additional history exists Potassium Level 03/26/2025 03/26/2024, 3 , 03/24/2024, Additional history exists Sodium Level 03/26/2025 03/26/2024, 3 , 03/24/2024, Additional history exists Creatinine Level (Kidney Function Test) 04/17/2025 04/17/2024, 03/26/2024, 03/25/2024, Additional history exists DTaP,Tdap,and Td Vaccines (5 - Td or Tdap) 11/22/2031 11/21/2021, 05/02/2012, 03/10/2005, Additional history exists Colonoscopy Discontinued 08/27/2003 (Perf ormed elsewhere) Colorectal Cancer Screening Discontinued Mammogram Discontinued 05/27/2012 (Perf ormed elsewhere), 04/29/2012 (Performed elsewhere) Pneumococcal vaccine (50+ years) Completed 01/12/2015, 11/28/2013, 08/27/2007 CT Colonography Discontinued Cologuard Discontinued FIT Discontinued IPV Vaccines Aged Out No longer eligi ble based on patient's age to complete this topic Medical Devices Implanted Type Area Pie Filler Device Identifier Shelf Expiration Date Model / Serial / Lot Knee Implant- 022 Implanted:01/2022 (Quantity not on file) Knee Implant Right: Knee Ocular Lens Ocular Lens Bilatera l: Eye Procedures Procedure Name Priority Date/Time Associated Diagnosis Comments COMPREHENSIVE METABOLIC PANEL, S/P Routine 10/17/2022 10:01 AM SALES MARKETING MANAGER Bypass Gastric Suellen En Y Status [...] * Comprehensive Metabolic Panel (10/17/2022 10:01 AM SALES MARKETING MANAGER) Potassium, S 4.5 3.6 - 5.2 mmol/L 10/17/2022 11:02 AM SALES MARKETING MANAGER DTL Sodium, S 141 135 - 145 mmol/L 10/17/2022 11:02 AM SALES MARKETING MANAGER DTL Chloride, S 106 98 - 107 mmol/L 10/17/2022 11:02 AM SALES MARKETING MANAGER DTL Bicarbonate, S 26 22 - 29 mmol/L 10/17/2022 11:02 AM SALES MARKETING MANAGER DTL Anion Gap 9 7 - 15 10/17/2022 11:02 AM SALES MARKETING MANAGER DTL BUN (Blood Urea Nitrogen), S 12 6 - 21 mg/dL 10/17/2022 11:02 AM SALES MARKETING MANAGER DTL Creatinine 0.59 0.59 - 1.04 mg/dL 10/17/2022 11:02 AM SALES MARKETING MANAGER DTL Estimated GFR (eGFR) >90 >=60 mL/min/BS A 10/17/2022 11:02 AM SALES MARKETING MANAGER DTL Comment: Estimated GFR calculated using the 2020 CKD_EPI creatinine equation. Calcium, Total, S 9.7 8.8 - 10.2 mg/dL 10/17/2022 11:02 AM SALES MARKETING MANAGER DTL Glucose, S 100 70 - 140 mg/dL 10/17/2022 11:02 AM SALES MARKETING MANAGER DTL Protein, Total, S 6.8 6.3 - 7.9 g/dL 10/17/2022 11:02 AM SALES MARKETING MANAGER DTL Albumin, S 4.5 3.5 - 5.0 g/dL 10/17/2022 11:02 AM SALES MARKETING MANAGER DTL Aspartate Aminotransferase (AST), S 23 8 - 43 U/L 10/17/2022 11:02 AM SALES MARKETING MANAGER DTL Alkaline Phosphatase, S 83 35 - 104 U/L 10/17/2022 11:02 AM SALES MARKETING MANAGER DTL Alanine Aminotransferase (ALT), S 23 7 - 45 U/L 10/17/2022 11:02 AM SALES MARKETING MANAGER DTL Bilirubin, Total, S 0.3 <=1.2 mg/dL 10/17/2022 11:02 AM SALES MARKETING MANAGER DTL Blood (Blood, Venous) 10/17/2022 10:01 AM SALES MARKETING MANAGER 10/17/2022 10:38 AM SALES MARKETING MANAGER us Merlyn Cobos M.D. LAB BLOOD ADD-O N Final Result [facility] [address] [place] [address], [facility] [address] [place] [address] * (ABNORMAL) Thyroid Function [place] (06/23/2019 10:25 AM CDT) TSH, Sensitive 6.0(H) 0.3 - 4.2 mIU/L 06/24/2019 8:43 AM CDT DTL Blood (Blood, Venous) 06/23/2019 10:25 AM CDT 06/24/2019 7:34 AM CDT Narrative Resulting Agency Comment Mailed In Specimen Sony Rodriguez APRN, C.N.P., D.N.P. LAB BLOOD A DD-ON Final Result [facility] [address] [place] [address], [facility] [address] [place] [address] from Last 3 Months or Most Recently Relevant to Health Maintenance Insurance [facility]IC[facility]
--- OUTSIDE RECORDS SUMMARY | 2024-08-30 15:48 | XMS_ITS | Encounter Summary ---
Author Organization [facility] Address [address] [place] [address] Care Team Providers Care Vp Corporate Partnerships Name Role Phone Feliciano Uribe MD Primary Care Provider Christina Roe PA-C Unavailable Christina Roe PA-C Unavailable [phone] Richie Rowell [facility] Unavailable Richie Rowell [facility] Unavailable Zhane Crain MD Unavailable Saeed Berry MD Unavailable [phone] Encounter Details Date Type Department Care Team (Late st Contact Info) Description 05/06/2024 MyC Medical Advice [address] [place] [address] Christina Roe PA-C [address] [place] [address] Social History Tobacco Use Types Packs/Day Years [...] on file Legal Sex Female 3:41 AM PHOTO CHECKER AND ASSEMBLER Gender Identity Not on file Sexual Orientation Not on file documented as of this encounter Plan of Treatment Upcoming Encounters Date Type Department Care Team (Late st Contact Info) Description 10/07/2024 9:30 AM PHOTO CHECKER AND ASSEMBLER Virtual Visit [facility] Rheumatology [facility] [address] [facility] [address] [place] [phone] Christina Roe PA-C [address] [place] [address] Richie Rowell, [facility] [address] [place] [address] 10/23/2024 8:00 AM PHOTO CHECKER AND ASSEMBLER Lab [facility] [address] [facility] [address] [place] [phone] 10/30/2024 10:00 AM PHOTO CHECKER AND ASSEMBLER Office Visit [facility] [address] [facility] [address] [place] [phone] Christina Roe PA-C [address] [place] [address] documented as of this encounter Visit Diagnoses Not on filedocumented in this encounter Care Teams Vp Corporate Partnerships Relationship Specialty Start Date End Date Feliciano Uribe MD [facility] - [facility] [address] [place] [address] PCP - General Family Medicine 06/01/23 Christina Roe PA-C [address] [place] [address] Physician Drafter Assistant Rheumatology 11/06/23 Christina Roe PA-C [address] [place] [address] Assigned Rheumatology Provider 11/09/23 Richie Rowell RPH [address] [place] [address] Pharmacist Pharmacist 04/08/24 Richie Rowell RPH [address] [place] [address] Assigned MTM Pharmacist 04/18/24 Zhane Crain MD [address] [place] [address] Physician Rheumatology 05/14/24 Saeed Berry MD [address] [place] [address] [phone] Assigned Surgical Provider 05/19/24 documented as of this encounter
--- OUTSIDE RECORDS SUMMARY | 2024-08-30 15:48 | XMS_ITS | Encounter Summary ---
Author Organization [facility] Address [address] [place] [address] Care Team Providers Care Coal Or Ore Controller Name Role Phone Feliciano Uribe MD Primary Care Provider [phone] Christina Roe PA-C Unavailable Christina Roe PA-C Unavailable Richie Rowell [facility] Unavailable Richie Rowell [facility] Unavailable Zhane Crain MD Unavailable Saeed Berry MD Unavailable [phone] Encounter Details Date Type Department Care Team (Late st Contact Info) Description 02/15/2024 MyC Medical Advice [address] [place] [address] Christina Roe PA-C [address] [place] [address] Polymyalgia rheumatica (H) (Primary Dx) Social History [...] on file Legal Sex Female 3:41 AM CARBON COATER 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 Gender Identity Not on file Sexual Orientation Not on file documented as of this encounter Plan of Treatment Upcoming Encounters Date Type Department Care Team (Late st Contact Info) Description 10/07/2024 9:30 AM CARBON COATER 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 Virtual Visit [facility] Rheumatology [facility] [address] [facility] [address] [place] [phone] Christina Roe PA-C [address] [place] [address] [facility] [address] [place] [address] 10/23/2024 8:00 AM CARBON COATER 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 Lab [facility] [address] [facility] [address] [place] [phone] 10/30/2024 10:00 AM CARBON COATER 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 Office Visit [facility] [address] [facility] [address] [place] [phone] Christina Roe PA-C [address] [place] [address] documented as of this encounter Visit Diagnoses Diagnosis Polymyalgia rheumatica (H)- Primary Polymyalgia rheumatica documented in this encounter Care Teams Coal Or Ore Controller Relationship Specialty Start Date End Date Feliciano Uribe MD [facility] [address] [place] [address] PCP - General Family Medicine 06/01/23 Christina Roe PA-C [address] [place] [address] Physician Pipe Stem Repairer Rheumatology 11/06/23 Christina Roe PA-C [address] [place] [address] Assigned Rheumatology Provider 11/09/23 Richie Rowell RPH [address] [place] [address] [phone] Pharmacist Pharmacist 04/08/24 Richie Rowell RP [address] [place] [address] [phone] Assigned MTM Pharmacist 04/18/24 Zhane Crain MD [address] [place] [address] [phone] Physician Rheumatology 05/14/24 Saeed Berry MD [address] [place] [address] [phone] Assigned Surgical Provider 05/19/24 documented as of this encounter
--- OUTSIDE RECORDS SUMMARY | 2024-08-30 15:48 | XMS_ITS | Encounter Summary ---
Author Organization [facility] Address [address] [place] [address] Care Team Providers Care Jar Filler Name Role Phone Feliciano Uribe MD Primary Care Provider Christina Roe PA-C Unavailable [phone] Christina Roe PA-C Unavailable Richie Rowell [facility] Unavailable Richie Rowell [facility] Unavailable Zhane Crain MD Unavailable Saeed eBrry MD Unavailable [phone] Encounter Details Date Type Department Care Team (Late st Contact Info) Description 04/23/2024 MyC Medical Advice [address] [place] [address] Zhane Crain MD [address] [place] [address] Social History Tobacco Use Types Packs/Day [...] on file Legal Sex Female 3:41 AM ANTIQUE DEALER Gender Identity Not on file Sexual Orientation [...] st Contact Info) Description 10/07/2024 9:30 AM ANTIQUE DEALER Virtual Visit [facility] Rheumatology [facility] [address] [facility] [address] [place] [phone] Christina Roe PA-C [address] [place] [address] [facility] [address] [place] [address] 10/23/2024 8:00 AM ANTIQUE DEALER Lab [facility] [address] [facility] [address] [place] [phone] 10/30/2024 10:00 AM ANTIQUE DEALER Office Visit [facility] [address] [facility] [address] [place] [phone] Christina Roe PA-C [address] [place] [address] documented as of this encounter Visit Diagnoses Not on filedocumented in this encounter Care Teams Jar Filler Relationship Specialty Start Date End Date Feliciano Uribe MD [facility] [address] [place] [address] PCP - General Family Medicine 06/01/23 Christina Roe PA-C [address] [place] [address] Physician Rope Tier Rheumatology 11/06/23 Christina Roe PA-C [address] [place] [address] Assigned Rheumatology Provider 11/09/23 Richie Rowell RPH [address] [place] [address] [phone] Pharmacist Pharmacist 04/08/24 Richie Rowell RPH [address] [place] [address] Assigned MTM Pharmacist 04/18/24 Zhane Crain MD [address] [place] [address] Physician Rheumatology 05/14/24 Saeed Berry MD [address] [place] [address] [address] [place], [place] [phone] Assigned Surgical Provider 05/19/24 documented as of this encounter
--- OUTSIDE RECORDS SUMMARY | 2024-08-30 15:48 | XMS_ITS | Encounter Summary ---
Author Organization [facility] Address [address] [place] [address] Care Team Providers Care Hand Drawer In Name Role Phone Feliciano Uribe MD Primary Care Provider Christina Roe PA-C Unavailable Christina Roe PA-C Unavailable [phone] Richie Rowell [facility] Unavailable Richie Rowell [facility] Unavailable Zhane Crain MD Unavailable Saeed Berry MD Unavailable [phone] Encounter Details Date Type Department Care Team (Late st Contact Info) Description 04/24/2013 Abstract [facility] [place] Psychology [address] [place] [phone] Iris Hernandez [facility] [address] [facility] [address] [place] [address] Social History Tobacco Use Types Packs/Day Years Used Date Smoking Tobacco: Never Assessed Comments Unknown Sex and Gender Information Value Date Recorded Sex Assigned at Not on file Legal Sex Female 3:41 AM DENTAL SERVICES DIRECTOR Gender Identity Not on file Sexual Orientation Not on file documented as of this encounter Plan of Treatment Upcoming Encounters Date Type Department Care Team (Late Contact Info) Description 10/07/2024 9:30 AM DENTAL SERVICES DIRECTOR Virtual Visit [facility] Rheumatology [facility] [address] [facility] [address] [place] [phone] Christina Roe PA-C [address] [place] [address] Richie Rowell RPH [address] [place] [address] 10/23/2024 8:00 AM DENTAL SERVICES DIRECTOR Lab [facility] [address] [place] [address] [address] [place] [phone] 10/30/2024 10:00 AM DENTAL SERVICES DIRECTOR Office Visit [facility] [address] [place] [address] [address] [place] [phone] Christina Roe PA-C [address] [place] [address] documented as of this encounter Visit Diagnoses Not on filedocumented in this encounter Care Teams Hand Drawer In Relationship Specialty Start Date End Date Feliciano Uribe MD [address] [address] PCP - General Family Medicine 06/01/23 Christina Roe PA-C [address] [place] [address] Physician Senior Abap Developer Rheumatology 11/06/23 Christina Roe PA-C [address] [place] [address] Assigned Rheumatology Provider 11/09/23 Richie Rowell RPH [address] [place] [address] Pharmacist Pharmacist 04/08/24 Richie Rowell RPH [address] [place] [address] Assigned MTM Pharmacist 04/18/24 Zhane Crain MD [address] [place] [address] Physician Rheumatology 05/14/24 Saeed Berry MD [address] [place] [address] Assigned Surgical Provider 05/19/24 documented as of this encounter
--- OUTSIDE RECORDS SUMMARY | 2024-08-30 15:48 | XMS_ITS | Encounter Summary ---
Author Organization [facility] Address [address] [place] [address] Care Team Providers Care Embossograph Operator Name Role Phone Feliciano Uribe MD Primary Care Provider [phone] Christina Roe PA-C Unavailable [phone] Christina Roe PA-C Unavailable Richie Rowell [facility] Unavailable Richie Rowell [facility] Unavailable Zhane Crain MD Unavailable Saeed Berry MD Unavailable [phone] Encounter Details Date Type Department Care Team (Late st Contact Info) Description 04/21/2024 MyC Medical Advice [facility] [address] [facility] [address] [place] [address] Richie Rowell, [facility] [address] [place], [place] [phone] Social History Tobacco Use Types Packs/Day Years [...] file Legal Sex Female 3:41 AM DATA MINER Gender Identity Not on file Sexual Orientation Not on file documented as of this encounter Plan of Treatment Upcoming Encounters Date Type Department Care Team (Late st Contact Info) Description 10/07/2024 9:30 AM DATA MINER Virtual Visit [facility] Rheumatology [facility] [address] [facility] [address] [place] [phone] Christina Roe PA-C [address] [place] [address] [facility] [address] [place] [address] 10/23/2024 8:00 AM DATA MINER Lab [facility] [address] [facility] [address] [place] [phone] 10/30/2024 10:00 AM DATA MINER Office Visit [facility] [address] [facility] [address] [place] [phone] Christina Roe PA-C [address] [place] [address] documented as of this encounter Visit Diagnoses Not on filedocumented in this encounter Care Teams Embossograph Operator Relationship Specialty Start Date End Date Feliciano Uribe MD [facility] [address] [address] PCP - General Family Medicine 06/01/23 Christina Roe PA-C [address] [place] [address] Physician Instrumentation Tech Rheumatology 11/06/23 Christina Roe PA-C [address] [place] [address] Assigned Rheumatology Provider 11/09/23 Richie Rowell RPH [address] [place] [address] Pharmacist Pharmacist 04/08/24 Richie Rowell RPH [address] [place] [address] Assigned MTM Pharmacist 04/18/24 Zhane Crain MD [address] [place] [address] Physician Rheumatology 05/14/24 Saeed Berry MD [address] [place] [address] [phone] Assigned Surgical Provider 05/19/24 documented as of this encounter
--- OUTSIDE RECORDS SUMMARY | 2024-08-30 15:48 | XMS_ITS | Encounter Summary ---
Author Organization [facility] Address [address] [place] [address] Care Team Providers Care X Ray Equipment Tester Name Role Phone Feliciano Uribe MD Primary Care Provider Christina Roe PA-C Unavailable Christina Roe PA-C Unavailable Richie Rowell [facility] Unavailable Richie Rowell [facility] Unavailable Zhane Crain MD Unavailable Saeed Berry MD Unavailable [phone] Encounter Details Date Type Department Care Team (Late st Contact Info) Description 04/10/2024 MyC Medical Advice [facility] [address] [facility] [address] [place] [address] Richie Rowell, [facility] [address] [place], [place] [phone] Social History Tobacco Use Types Packs/Day Years [...] on file Legal Sex Female 3:41 AM FIXED ROUTE BUS OPERATOR Gender Identity Not on file Sexual Orientation Not on file documented as of this encounter Plan of Treatment Upcoming Encounters Date Type Department Care Team (Late st Contact Info) Description 10/07/2024 9:30 AM FIXED ROUTE BUS OPERATOR Virtual Visit [facility] Rheumatology [facility] [address] [facility] [address] [place] [phone] Christina Roe PA-C [address] [place] [address] [facility] [address] [place] [address] 10/23/2024 8:00 AM FIXED ROUTE BUS OPERATOR Lab [facility] [address] [facility] [address] [place] [phone] 10/30/2024 10:00 AM FIXED ROUTE BUS OPERATOR Office Visit [facility] [address] [facility] [address] [place] [phone] Christina Roe PA-C [address] [place] [address] documented as of this encounter Visit Diagnoses Not on filedocumented in this encounter Care Teams X Ray Equipment Tester Relationship Specialty Start Date End Date Feliciano Uribe MD [facility] & [address] [address] PCP - General Family Medicine 06/01/23 Christina Roe PA-C [address] [place] [address] Physician Financial Services Officer Rheumatology 11/06/23 Christina Roe PA-C [address] [place] [address] Assigned Rheumatology Provider 11/09/23 Richie Rowell RPH [address] [place] [address] Pharmacist Pharmacist 04/08/24 Richie Rowell RPH [address] [place] [address] Assigned MTM Pharmacist 04/18/24 Zhane Crain MD [address] [place] [address] Physician Rheumatology 05/14/24 Saeed Berry MD [address] [place] [address] [phone] Assigned Surgical Provider 05/19/24 documented as of this encounter
--- OUTSIDE RECORDS SUMMARY | 2024-08-30 15:48 | XMS_ITS ---
Author Organization [facility] Address [address] [place] [address] Care Team Providers Care Air Filler Name Role Phone Unavailable Unavailable Unavailable Surgery Details Not on file Complications Check Surgery Details section. Procedure Estimated Blood Loss Check Surgery Details section. Procedure Findings Check Surgery Details section. Procedure Specimens Taken Check Surgery Details section.
--- OUTSIDE RECORDS SUMMARY | 2024-08-30 15:48 | XMS_ITS | Encounter Summary ---
Author Organization [place] Address [address] [place] [address] Care Team Providers Care Qa Software Test Engineer Name Role Phone Feliciano Uribe MD Primary Care Provider Christina Roe PA-C Unavailable Christina Roe PA-C Unavailable [phone] Richie Rowell [facility] Unavailable Richie Rowell [facility] Unavailable Zhane Crain MD Unavailable Saeed Berry MD Unavailable [phone] Reason for Visit * Reason Onset Date Comments Appointment 10/23/2023 Encounter Details Date Type Department Care Team (Late st Contact Info) Description 10/23/2023 MyC Medical Advice [address] [place] [address] Christina Roe PA-C [address] [place] [address] Appointment Social History Tobacco Use Types Packs/Day Years Used Date Smoking Tobacco: Never Assessed Adolescent Education Answer Date Record ed Getting School Help Needed Not on file 05/31 Comments Unknown Sex and Gender Information Value Date Recorded Sex Assigned at Not on file Legal Sex Female 3:41 AM SPRING BENDER Gender Identity Not on file Sexual Orientation Not on file documented as of this encounter Miscellaneous Notes * Telephone Encounter - Shayy Michelle - 11/20/2023 11:57 AM CDT LVM * Telephone Encounter - Brenda Hartley - 11/05/2023 12:04 PM CDT Lvm x2 * Telephone Encounter - Brenda Hartley - 10/23/2023 3:24 PM CST lvm NG BENDER * Telephone Encounter - Smiley Perez - 10/23/2023 2:23 PM CST [facility] Phone Message May a detailed message be left on voicemail: yes Reason for Call: Other: Patient called to schedule 1 month follow up appt per previous communication w/ Christina pattern chart writer tried to schedule but did not see any available appts for Christina until 12/26. Please advise. Action Taken: Other: RHEUM Travel Screening: Not Applicable NG BENDER * Telephone Encounter - Jonelle Aguirre, RN - 10/23/2023 8:45 AM CST To provider to review and advise, I do not see any new medication that pt is referring to. Jonelle Aguirre [facility] RN NG BENDER documented in this encounter Plan of Treatment Upcoming Encounters Date Type Department Care Team (Late st Contact Info) Description 10/07/2024 9:30 AM SPRING BENDER Virtual Visit [facility] Rheumatology [facility] [address] [facility] [address] [place] [address] Christina Roe PA-C [address] [place] [address] Richie Rowell RPH [address] [place] [address] 10/23/2024 8:00 AM SPRING BENDER Lab [facility] Laboratory [address] [place] [address] [address] [place] [phone] 10/30/2024 10:00 AM SPRING BENDER Office Visit [facility] [address] [place] [address] [address] [place] [address] Christina Roe PA-C [address] [place] [address] documented as of this encounter Visit Diagnoses Diagnosis Polyarthralgia- Primary Pain in joint, multiple sites Myalgia Mylagia and myositis, unspecified documented in this encounter Care Teams Qa Software Test Engineer Relationship Specialty Start Date End Date Feliciano Uribe MD [address] [address] PCP - General Family Medicine 06/01/23 Christina Roe PA-C [address] [place] [address] Physician Mold Shaker Rheumatology 11/06/23 Christina Roe PA-C [address] [place] [address] Assigned Rheumatology Provider 11/09/23 Richie Rowell RPH [address] [place] [address] Pharmacist Pharmacist 04/08/24 Richie Rowell [facility] [address] [place] [address] Assigned MTM Pharmacist 04/18/24 Zhane Crain MD [address] [place] [address] Physician Rheumatology 05/14/24 Saeed Berry MD [address] [place] [address] Assigned Surgical Provider 05/19/24 documented as of this encounter
--- OUTSIDE RECORDS SUMMARY | 2024-08-30 15:48 | XMS_ITS | Encounter Summary ---
Author Organization [place] Address [address] [place] [address] Care Team Providers Care Superintendent Quarry Name Role Phone Feliciano Uribe MD Primary Care Provider Christina Roe PA-C Unavailable Christina Roe PA-C Unavailable [phone] Richie Rowell [facility] Unavailable Richie Rowell [facility] Unavailable Zhane Crain MD Unavailable Saeed Berry MD Unavailable [phone] Encounter Details Date Type Department Care Team (Late st Contact Info) Description 04/09/2024 MyC Medical Advice [facility] [address] [facility] [address] [place] [address] Richie Rowell, [facility] [address] [place], [place] [phone] Social History Tobacco Use Types Packs/Day Years [...] on file Legal Sex Female 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 PROJECT 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 Gender Identity Not on file Sexual Orientation Not on file documented as of this encounter Plan of Treatment Upcoming Encounters Date Type Department Care Team (Late st Contact Info) Description 10/07/2024 9:30 AM PROJECT RESERVOIR ENGINEER Virtual Visit [facility] Rheumatology [facility] [address] [facility] [address] [place] [phone] Christina Roe PA-C [address] [place] [address] [facility] [address] [place] [address] 10/23/2024 8:00 AM PROJECT RESERVOIR ENGINEER Lab [facility] Laboratory [address] [facility] [address] [place] [phone] 10/30/2024 10:00 AM PROJECT RESERVOIR ENGINEER Office Visit [facility] [address] [facility] [address] [place] [phone] Christina Roe PA-C [address] [place] [address] documented as of this encounter Visit Diagnoses Not on filedocumented in this encounter Care Teams Superintendent Quarry Relationship Specialty Start Date End Date Feliciano Uribe MD [employer] & [address] [address] PCP - General Family Medicine 06/01/23 Christina Roe PA-C [address] [place] [address] Physician Photography Coordinator Rheumatology 11/06/23 Christina Roe PA-C [address] [place] [address] Assigned Rheumatology Provider 11/09/23 Richie Rowell RPH [address] [place] [address] Pharmacist Pharmacist 04/08/24 Richie Rowell RPH [address] [place] [address] Assigned MTM Pharmacist 04/18/24 Zhane Crain MD [address] [place] [address] Physician Rheumatology 05/14/24 Saeed Berry MD [address] [place] [address] [phone] Assigned Surgical Provider 05/19/24 documented as of this encounter
--- OUTSIDE RECORDS SUMMARY | 2024-08-30 15:48 | XMS_ITS | Encounter Summary ---
Author Organization [place] Address [address] [place] [address]. [place] [address] Care Team Providers Care Body Maker Name Role Phone Feliciano Uribe MD Primary Care Provider [phone] Christina Roe PA-C Unavailable [phone] Christina Roe PA-C Unavailable [phone] Richie Rowell [facility] Unavailable Richie Rowell [facility] Unavailable Zhane Crain MD Unavailable Saeed Berry MD Unavailable [phone] Encounter Details Date Type Department Care Team (Late st Contact Info) Description 03/25/2024 Ophth Exam [facility] Services - Eye Care Service Line [address] [place] [address] Jorge Kelly MD [address] [place] [phone] Social History Tobacco Use Types Packs/Day Years [...] on file Legal Sex Female 3:41 AM DOCUMENTATION COORDINATOR Gender Identity Not on file Sexual Orientation Not on file documented as of this encounter Plan of Treatment Upcoming Encounters Date Type Department Care Team (Late st Contact Info) Description 10/07/2024 9:30 AM DOCUMENTATION COORDINATOR Virtual Visit [facility] Rheumatology [facility] [address] [facility] [address] [place] [phone] Christina Roe PA-C [address] [place] [address] [facility] 909 [place] [address] 10/23/2024 8:00 AM DOCUMENTATION COORDINATOR Lab [facility] [address] [facility] [address] [place] [phone] 10/30/2024 10:00 AM DOCUMENTATION COORDINATOR Office Visit [facility] [address] [facility] [address] [place] [phone] Christina Roe PA-C [address] [place] [address] documented as of this encounter Visit Diagnoses Not on filedocumented in this encounter Care Teams Body Maker Relationship Specialty Start Date End Date Feliciano Uribe MD [facility] & [address] [address] PCP - General Family Medicine 06/01/23 Christina Roe PA-C [address] [place] [address] Physician District Sales Leader Rheumatology 11/06/23 Christina Roe PA-C [address] [place] [address] Assigned Rheumatology Provider 11/09/23 Richie Rowell RPH [address] [place] [address] Pharmacist Pharmacist 04/08/24 Richie Rowell RPH [address] [place] [address] Assigned MTM Pharmacist 04/18/24 Zhane Crain MD [address] [place] [address] Physician Rheumatology 05/14/24 Saeed Berry MD [address] [place] [address] [phone] Assigned Surgical Provider 05/19/24 documented as of this encounter
--- OUTSIDE RECORDS SUMMARY | 2024-08-30 15:48 | XMS_ITS | Encounter Summary ---
Author Organization [place] Address [address] [place] [address]. [place] [address] Care Team Providers Care Art Instructor Name Role Phone Feliciano Uribe MD Primary Care Provider Christina Roe PA-C Unavailable Christina Roe PA-C Unavailable Richie Rowell [facility] Unavailable Richie Rowell [facility] Unavailable Zhane Crain MD Unavailable Saeed Berry MD Unavailable [phone] Encounter Details Date Type Department Care Team (Late st Contact Info) Description 03/27/2024 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 Gender Identity Not on file Sexual Orientation Not on file documented as of this encounter Plan of Treatment Upcoming Encounters Date Type Department Care Team (Late st Contact Info) Description 10/07/2024 9:30 AM UNEMPLOYMENT CLAIMS ADJUDICATOR Virtual Visit [facility] Rheumatology [facility] [address] [facility] [address] [place] [address] Christina Roe PA-C [address] [place] [address] [facility] 909 [place] [address] 10/23/2024 8:00 AM UNEMPLOYMENT CLAIMS ADJUDICATOR Lab [facility] Laboratory [address] [facility] 120 [place] [address] 10/30/2024 10:00 AM UNEMPLOYMENT CLAIMS ADJUDICATOR Office Visit [facility] [address] [facility] 200 [place] [phone] Christina Roe PA-C [address] [place] [address] documented as of this encounter Visit Diagnoses Not on filedocumented in this encounter Care Teams Art Instructor Relationship Specialty Start Date End Date Feliciano Uribe MD [facility] & [address] [address] PCP - General Family Medicine 06/01/23 Christina Roe PA-C [address] [place] [address] Physician Cribber Rheumatology 11/06/23 Christina Roe PA-C [address] [place] [address] Assigned Rheumatology Provider 11/09/23 Richie Row[address] [facility] [address] [place] [address] [phone] Pharmacist Pharmacist 04/08/24 Richie Rowell [facility] [address] [place] [address] 235105 Assigned MTM Pharmacist 04/18/24 Zhane Crain MD [address] [place] [phone] Physician Rheumatology 05/14/24 Saeed Berry MD [address] [place] [address] [phone] Assigned Surgical Provider 05/19/24 documented as of this encounter
--- OUTSIDE RECORDS SUMMARY | 2024-08-30 15:48 | XMS_ITS | Encounter Summary ---
Author Organization [place] Address [address] [place] [address] Care Team Providers Care Screen Making Supervisor Name Role Phone Feliciano Uribe MD Primary Care Provider Christina Roe PA-C Unavailable Christina Roe PA-C Unavailable Richie Rowell [facility] Unavailable Richie Rowell [facility] Unavailable Zhane Crain MD Unavailable Saeed Berry MD Unavailable [phone] Encounter Details Date Type Department Care Team (Late st Contact Info) Description 04/14/2024 MyC Medical Advice [facility] [address] [place] [address] Adalberto Boles Social History Tobacco Use [...] on file Legal Sex Female 3:41 AM MARINE ERECTOR Gender Identity Not on file Sexual Orientation Not on file documented as of this encounter Plan of Treatment Upcoming Encounters Date Type Department Care Team (Late st Contact Info) Description 10/07/2024 9:30 AM MARINE ERECTOR Virtual Visit [facility] [place] [address] [facility] [address] [place] [phone] Christina Roe PA-C [address] [place] [address] Richie Rowell, [facility] 909 [place] [address] 10/23/2024 8:00 AM MARINE ERECTOR Lab [facility] [address] [facility] 120 [place] [address] 10/30/2024 10:00 AM MARINE ERECTOR Office Visit [facility] [address] [place] [address] [address] [place] [address] Christina Roe PA-C [address] [place] [address] documented as of this encounter Visit Diagnoses Not on filedocumented in this encounter Care Teams Screen Making Supervisor Relationship Specialty Start Date End Date Feliciano Uribe MD [facility] [address] [place] [address] PCP - General Family Medicine 06/01/23 Christina Roe PA-C [address] [place] [address] Physician Cleaning Technician Rheumatology 11/06/23 Christina Roe PA-C [address] [place] [address] Assigned Rheumatology Provider 11/09/23 Richie Rowell [facility] [address] [place] [address] Pharmacist Pharmacist 04/08/24 Richie Rowell RP [address] [place] [address] Assigned MTM Pharmacist 04/18/24 Zhane Crain MD [address] [place] [address] [phone] Physician Rheumatology 05/14/24 Saeed Berry MD [address] [place] [address] [phone] Assigned Surgical Provider 05/19/24 documented as of this encounter
--- OUTSIDE RECORDS SUMMARY | 2024-08-30 15:48 | XMS_ITS | Encounter Summary ---
Author Organization [place] Address [address] [place] [address] Care Team Providers Care Division Chair Name Role Phone Feliciano Uribe MD Primary Care Provider Christina Roe PA-C Unavailable Christina Roe PA-C Unavailable Richie Rowell [facility] Unavailable Richie Rowell [facility] Unavailable Zhane Crain MD Unavailable Saeed Berry MD Unavailable [phone] Encounter Details Date Type Department Care Team (Late st Contact Info) Description 05/02/2024 MyC Medical Advice [facility] [address] [place] [address] Adalberto Boles Social History Tobacco Use [...] on file Legal Sex Female 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 Gender Identity Not on file Sexual Orientation Not on file documented as of this encounter Plan of Treatment Upcoming Encounters Date Type Department Care Team (Late st Contact Info) Description 10/07/2024 9:30 AM PUG 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 Virtual Visit [facility] [place] [address] [facility] [address] [place] [address] Christina Roe PA-C [address] [place] [address] Richie Rowell, [facility] 9[address] [place] [address] 10/23/2024 8:00 AM PUG 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 Lab [facility] Laboratory [address] [facility] 120 [place] [address] 10/30/2024 10:00 AM PUG 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 Office Visit [facility] [address] [place] [address] [address] [place] [address] Christina Roe PA-C [address] [place] [address] documented as of this encounter Visit Diagnoses Not on filedocumented in this encounter Care Teams Division Chair Relationship Specialty Start Date End Date Feliciano Uribe MD [facility] [address] [place] [address] PCP - General Family Medicine 06/01/23 Christina Roe PA-C [address] [place] [address] Physician Registered Nurse Ambulatory Rheumatology 11/06/23 Christina Roe PA-C [address] [place] [address] Assigned Rheumatology Provider 11/09/23 Richie Rowell [facility] 9[address] [place] [address] Pharmacist Pharmacist 04/08/24 Richie Rowell RP [address] [place] [address] Assigned MTM Pharmacist 04/18/24 Zhane Crain MD [address] [place] [address] 457135 Physician Rheumatology 05/14/24 Saeed Berry MD [address] [place] [address] [phone] Assigned Surgical Provider 05/19/24 documented as of this encounter
--- OUTSIDE RECORDS SUMMARY | 2024-08-30 15:48 | XMS_ITS | Clinical Summary ---
Author Organization [employer] Address [address] [place] [address] Care Team Providers Care Quality Improvement Coordinator (Rn) Name Role Phone Feliciano Uribe MD Primary Care Provider [phone] Source Comments You are receiving this document as you are listed as the primary care provider,follow-up provider, or the patient has been referred to you for consultation.This is in compliance with the Medicare and[facility] EHR Incentive Program,which states Providers who transition their patient to another setting of careor provider of care or refers their patient to another provider of care shouldprovide summary care record for each transition of care or referral. [place] Allergies No known active allergies Medications Medication [...] a day. 03/27/2019 Active Cholecalciferol (VITAMIN D3) 87048 units TABS 03/27/2019 Active levothyroxine (SYNTHROID) 137 [...] every week. Take 30 minutes before first dtqa-lkipp-hicuakdvz n. Avoid lying down for 30 minutes. [...] 78 04/07/2020 9:21 AM CDT Temperature 36.1 C (96.9 F) 04/07/2020 9:21 AM CDT Respiratory Rate - [...] 2024 11/12/2020, 10/15/2020 Influenza (#1) 2024 06/21/2020, 1109/2017, [...] age to complete this topic Care Teams Quality Improvement Coordinator (Rn) Relationship Specialty Start Date End Date Feliciano Uribe MD [address] [place] [address] PCP - General 02/17/19
--- OUTSIDE RECORDS SUMMARY | 2024-08-30 15:48 | XMS_ITS | Encounter Summary ---
Author Organization [place] Address [address] [place] [address]. [place] [address] Care Team Providers Care Facility Examiner Name Role Phone Feliciano Uribe MD Primary Care Provider Christina Roe PA-C Unavailable Christina Roe PA-C Unavailable Richie Rowell [facility] Unavailable Richie Rowell [facility] Unavailable Zhane Crain MD Unavailable Saeed Berry MD Unavailable [phone] Encounter Details Date Type Department Care Team (Late st Contact Info) Description 03/24/20[address] 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 Rheumatology [facility] [address] [facility] [address] [place] [phone] Christina Roe PA-C [address] [place] [address] [facility] 909 [place] [address] 10/23/2024 8:00 AM GARBAGE DEPOT WORKER Lab [facility] Laboratory [address] [facility] [address] [place] [address] 10/30/2024 10:00 AM GARBAGE DEPOT WORKER Office Visit [facility] [address] [facility] [address] [place] [address] Christina Roe PA-C [address] [place] [address] documented as of this encounter Visit Diagnoses Not on filedocumented in this encounter Care Teams Facility Examiner Relationship Specialty Start Date End Date Feliciano Uribe MD [address] [address] PCP - General Family Medicine 06/01/23 Christina Roe PA-C [address] [place] [address] Physician Optometric Coordinator Rheumatology 11/06/23 Christina Roe PA-C [address] [place] [address] Assigned Rheumatology Provider 11/09/23 Richie Rowell RPH [address] [place] [address] Pharmacist Pharmacist 04/08/24 Richie Rowell RPH [address] [place] [address] Assigned MTM Pharmacist 04/18/24 Zhane Crain MD [address] [place] [address] Physician Rheumatology 05/14/24 Saeed Berry MD [address] [place] [address] Assigned Surgical Provider 05/19/24 documented as of this encounter
--- OUTSIDE RECORDS SUMMARY | 2024-08-30 15:48 | XMS_ITS | Encounter Summary ---
Author Organization [place] Address [address] [place] [address]. [place] [address] Care Team Providers Care Grievance And Appeals Coordinator Name Role Phone Feliciano Uribe MD Primary Care Provider Christina Roe PA-C Unavailable [phone] Christina Roe PA-C Unavailable Richie Rowell [facility] Unavailable Richie Rowell [facility] Unavailable Zhane Crain MD Unavailable Saeed Berry MD Unavailable [phone] Encounter Details Date Type Department Care Team (Late st Contact Info) Description 03/23/2024 Ophth Exam [facility] Services - Eye Care Service Line [address] [place] [address] Lamont Canales MD [address] [place] [address] [phone] Social History Tobacco Use Types Packs/Day Years [...] on file Legal Sex Female 3:41 AM MANAGER OF RECRUITING Gender Identity Not on file Sexual Orientation Not on file documented as of this encounter Plan of Treatment Upcoming Encounters Date Type Department Care Team (Late st Contact Info) Description 10/07/2024 9:30 AM MANAGER OF RECRUITING Virtual Visit [facility] Rheumatology [facility] [address] [facility] [address] [place] [phone] Christina Roe PA-C [address] [place] [address] [facility] 909 [place] [address] 10/23/2024 8:00 AM MANAGER OF RECRUITING Lab [facility] Laboratory [address] [facility] [address] [place] [address] 10/30/2024 10:00 AM MANAGER OF RECRUITING Office [facility] [address] [facility] [address] [place] [address] Christina Roe PA-C [address] [place] [address] documented as of this encounter Visit Diagnoses Not on filedocumented in this encounter Care Teams Grievance And Appeals Coordinator Relationship Specialty Start Date End Date Feliciano Uribe MD [address] [address] PCP - General Family Medicine 06/01/23 Christina Roe PA-C [address] [place] [address] Physician Commercial Lines Assistant Rheumatology 11/06/23 Christina Roe PA-C [address] [place] [address] Assigned Rheumatology Provider 11/09/23 Richie Rowell RPH [address] [place] [address] Pharmacist Pharmacist 04/08/24 Richie Rowell RPH [address] [place] [address] Assigned MTM Pharmacist 04/18/24 Zhane Crain MD [address] [place] [address] Physician Rheumatology 05/14/24 Saeed Berry MD [address] [place] [address] Assigned Surgical Provider 05/19/24 documented as of this encounter
[2024-08-30 16:07] VITALS: BP 126/75; PULSE 69; RESP 16; TEMP 36.9; O2SAT 93; BMI 26.2
--- NOTE | 2024-08-30 16:40 | CRLHL7_ITS ---
For Patients: As a result of the Century Cures Act, medical imaging exams and procedure reports are released immediately into your electronic medical record. You may view this report before your referring provider. If you have questions, please contact your health care provider. INDICATION: Left lower extremity swelling. TECHNIQUE: Left lower extremity Doppler venous ultrasound examination was performed. Grayscale and color Doppler images were obtained. COMPARISON: None. FINDINGS: RIGHT LOWER EXTREMITY: Common femoral vein: Fully compressible. No deep vein thrombus. Normal flow and response to augmentation on color Doppler imaging. LEFT LOWER EXTREMITY: Common femoral vein: Fully compressible. No deep vein thrombus. Normal flow and response to augmentation on color Doppler imaging. Superficial femoral vein: Fully compressible. No deep vein thrombus. Normal flow on color Doppler imaging. Deep femoral vein: No deep vein thrombus Popliteal vein: Fully compressible. No deep vein thrombus. Normal flow on color Doppler imaging. Lower calf: The visualized posterior tibial and peroneal veins are fully compressible. No deep vein thrombus. Normal flow and response to augmentation on color Doppler imaging. Superficial veins: The superficial veins, including the greater saphenous vein, remain patent and are fully compressible. Soft tissues: Left popliteal fossa fluid collection measuring 3.2 x 1.3 x 3.4 cm, compatible with a Padilla`s cyst. IMPRESSION: No deep vein thrombus within the left lower extremity. Dictated by Silvio Burciaga MD @ 08/30/2024 6:36:11 PM (Electronically Signed)
--- NOTE | 2024-08-30 16:41 | ED_ITS ---
HPI - General Adult General Chief complaint: Extremity Pain/Injury, Lower Stated complaint: Left leg, pain, discoloration, blood clot? Time Seen by Provider: 08/30/24 16:37 History of Present Illness HPI narrative: This 79-year-old female comes in reporting some discomfort in her left lower extremity and a sense of a bit of swelling and little bit of discoloration. She did have a total knee replacement of the left leg about 6 weeks ago and has been doing well. She does not report any chest pain or shortness of breath and arrives here with normal vital signs. She has not had any recent injury event. Related Data Home Medications ?Medication ?Instructions ?Recorded ?Confirmed calcium carbonate (Oyster Shell 500 mg PO QDAY 06/26/22 06/24/24 Calcium) multivitamin 1 tab PO QAM 06/26/22 06/24/24 amlodipine 10 mg tablet 5 mg PO DAILY 01/02/24 08/30/24 cyanocobalamin (vitamin B-12) 1,000 mcg IM .Q4 weeks 01/02/24 06/24/24 1,000 mcg/mL injection solution lisinopril 10 mg tablet 10 mg PO BID 01/02/24 08/30/24 metoprolol tartrate 25 mg tablet 25 mg PO BID 01/02/24 08/30/24 pantoprazole 40 mg tablet,delayed 40 mg PO DAILY 04/24/24 06/24/24 release prednisone 10 mg tablet 7 mg PO .QD 06/24/24 06/24/24 tocilizumab 162 mg/0.9 mL 162 mg subcut QWEEK 06/24/24 08/30/24 subcutaneous syringe (Actemra) Previous Rx's ?Medication ?Instructions ?Recorded atorvastatin 10 mg tablet 10 mg PO .Bedtime #90 tabs 01/02/24 cholecalciferol (vitamin D3) 1,250 50,000 unit PO QWEEK #12 tabs 01/02/24 mcg (50,000 unit) tablet fluoxetine 40 mg capsule 40 mg PO DAILY #90 caps 01/02/24 levothyroxine 150 mcg tablet 150 mcg PO QDAY #90 tabs 01/02/24 methocarbamol 500 mg tablet 500 mg PO QID PRN muscle spasm #30 04/15/24 tabs nitroglycerin 0.4 mg sublingual 0.4 mg sublingual ONCE PRN chest 04/24/24 tablet pain #25 tabs Allergies Allergy/AdvReac Type Severity Reaction Status Date / Time No Known Allergies Allergy Verified 06/24/24 08:03 Review of Systems Status of ROS: Reports: 10 or more systems reviewed and unremarkable except as noted in History and below Narrative: Constitutional: No fevers, no weight gain or loss. Eyes: No discharge. No vision changes. HENT: No congestion, no sore throat, no ear pain. Cardiovascular: No chest pain, no palpitations. Respiratory: No shortness of breath, no wheezes, no cough. Gastrointestinal: No abdominal pain, no vomiting, no diarrhea. Genitourinary: No dysuria, no hematuria. Musculoskeletal: Normal range of motion. Skin: No rashes, no pruritis. Neurological: No dizziness, weakness, sensory change, speech change. Endo/Heme/Allergies: No bruising or bleeding. No polydipsia. Pysch: no suicidality, no anxiety, no insomnia. All other systems reviewed and are negative. [facility] Medical History (Updated 08/30/24 @ 18:08 by Edson Murray MD) PMR (polymyalgia rheumatica) ?M35.3 - Polymyalgia rheumatica (ICD-10) Vitamin D deficiency ?E55.9 - Vitamin D deficiency, unspecified (ICD-10) Restless legs syndrome ?G25.81 - Restless legs syndrome (ICD-10) Osteoporosis ?M81.0 - Age-related osteoporosis without current pathological fracture (ICD- 10) Osteopenia (05/13/09) ?M85.80 - Other specified disorders of bone density and structure, unspecified site (ICD-10) Obstructive sleep apnea syndrome ?G47.33 - Obstructive sleep apnea (adult) (pediatric) (ICD-10) Muscle spasms of neck ?M62.838 - Other muscle spasm (ICD-10) Hypothyroidism (05/06/09) ?E03.9 - Hypothyroidism, unspecified (ICD-10) Hypertension (05/06/09) ?I10 - Essential (primary) hypertension (ICD-10) Hyperlipidemia (05/06/09) ?E78.5 - Hyperlipidemia, unspecified (ICD-10) History of tear of meniscus of knee joint (05/02/12) ?Z87.828 - Personal history of other (healed) physical injury and trauma (ICD-10) Hiatal hernia (05/06/09) ?K44.9 - Diaphragmatic hernia without obstruction or gangrene (ICD-10) Graves' disease (05/06/09) ?E05.00 - Thyrotoxicosis with diffuse goiter without thyrotoxic crisis or storm (ICD-10) Gastroesophageal reflux disease (05/06/09) ?K21.9 - Gastro-esophageal reflux disease without esophagitis (ICD-10) Depression (05/06/09) ?F32.A - Depression, unspecified (ICD-10) Cerebrovascular accident (CVA) (05/02/12) ?I63.9 - Cerebral infarction, unspecified (ICD-10) Calculus of kidney (05/06/09) ?N20.0 - Calculus of kidney (ICD-10) Surgical History Hx of total knee arthroplasty ?Z96.659 - Presence of unspecified artificial knee joint (ICD-10) Status post gastric bypass for obesity ?Z98.84 - Bariatric surgery status (ICD-10) History of hysterectomy (05/02/12) ?Z90.710 - Acquired absence of both cervix and uterus (ICD-10) History of cystoscopy (05/02/12) ?Z98.890 - Other specified postprocedural states (ICD-10) Social History What is your current living situation?: I presently have a place to live Problems where you live: no known problems In the past 12 months, utilities in danger of being shut off: no In past 12 months, lack of transportation kept you from medical appts, meetings, work, or getting things needed for daily living: no In the past 12 mos, have been you worried that your food would run out before you had money to buy more?: never true In the past 12 mos, the food you bought just didn't last and you didn't have money to buy more?: never true Smoking Status: Never smoker Do you use any of these nicotine containing products: None Second hand tobacco smoke exposure: No How often do you have a drink containing alcohol: 2-3 times a week Alcohol type: wine How many standard drinks containing alcohol do you have on a typical day: 1 or 2 How often do you have six or more drinks on one occasion: Never AUDIT-C Alcohol total score: 3 Non-prescribed substance use: denies use Caffeine: Yes (DAILY 3) How often does anyone, including family, friends and others, physically hurt you : never How often does anyone, including family, friends and others, insult or talk down to you: never How often does anyone, including family, friends and others, threaten you with harm: never How often does anyone, including family, friends and others, scream or curse at you: never Are you using contraception or practicing any form of control: No service: No Exam Narrative: Exam Narrative: Constitutional: Well-developed, well-nourished, no acute distress. HEENT: Normocephalic, atraumatic. Neck: Normal range of motion. Nontender. Supple. Heart: Intact distal pulses. Lungs: No chest discomfort. No wheezes, rhonchi, or rales. Abdomen: Nontender. Back: Normal range of motion. Extremities: Normal range of motion. No injury. Minimal swelling of the left lower extremity. No ecchymosis or erythema. Surgical wound of the left knee appears normal. Skin: Intact. No rash. Warm. No erythema or pallor. Neurologic: No altered sensation. No weakness. Alert and oriented. Psychiatric: No suicidality. No anxiety or depression. No insomnia. Nursing notes and vitals signs are reviewed. Const: Vital Signs, click to edit/add: Vital Signs - 24 hr 08/30/24 16:07 Temperature 98.4 F Pulse Rate [Pulse Oximeter] 69 Respiratory Rate 16 Blood Pressure [Ri ght Upper Arm] 126/75 Pulse Oximetry 93 Oxygen Delivery Me thod Room Air Course Vital Signs Vital signs: Initial Vital Signs Temperature 98.4 F 08/30/24 16:07 Temperature Source Temporal Artery Scan 08/30/24 16:07 Pulse Rate 69 08/30/24 16:07 Respiratory Rate 16 08/30/24 16:07 Blood Pressure 126/75 08/30/24 16:07 Blood Pressure Mean 92 08/30/24 16:07 Blood Pressure Position Sitting 08/30/24 16:07 Pulse Oximetry 93 08/30/24 16:07 Oxygen Delivery Method Room Air 08/30/24 16:07 Vital Signs Temperature 98.4 F 08/30/24 16:07 Pulse Rate 69 08/30/24 16:07 Respiratory Rate 16 08/30/24 16:07 Blood Pressure 126/75 08/30/24 16:07 Pulse Oximetry 93 08/30/24 16:07 Oxygen Delivery Method Room Air 08/30/24 16:07 Temperature 98.4 F 08/30/24 16:07 Pulse Rate 69 08/30/24 16:07 Respiratory Rate 16 08/30/24 16:07 Blood Pressure 126/75 08/30/24 16:07 Pulse Oximetry 93 08/30/24 16:07 Oxygen Delivery Method Room Air 08/30/24 16:07 Medical Decision Making MDM Narrative Medical decision making narrative: This patient comes in with concern about a sense of swelling in her left lower extremity. This is just below the knee that was replaced surgically about 6 weeks ago. She does not report any other symptoms and did not have any injury event or strenuous activity recently. An ultrasound is obtained and shows no evidence of deep venous thrombosis. There is a little bit of fluid collecting behind the knee. Most likely this is some synovial fluid leaking out that it is draining into her calf region. The patient is okay to return home to resume current plans. Discharge Plan Discharge Clinical Impression: Left leg swelling Patient Disposition: Home, Self-Care Condition: Stable Additional Instructions: Continue current plans. Activity as tolerated. Follow up with MD return if worsening. Prescriptions: No Action multivitamin Tablet 1 tab PO QAM calcium carbonate [Oyster Shell Calcium] 500 mg calcium (1,250 mg) tablet 500 mg PO QDAY cyanocobalamin (vitamin B-12) 1,000 mcg/mL solution 1,000 mcg IM .Q4 weeks Actemra 162 mg/0.9 mL syringe 162 mg subcut QWEEK metoprolol tartrate 25 mg tablet 25 mg PO BID amlodipine 10 mg tablet 5 mg PO DAILY lisinopril 10 mg tablet 10 mg PO BID atorvastatin 10 mg tablet 10 mg PO .Bedtime Qty: 90 3RF cholecalciferol (vitamin D3) 1,250 mcg (50,000 unit) tablet 50,000 unit PO QWEEK Qty: 12 3RF fluoxetine 40 mg capsule 40 mg PO DAILY Qty: 90 3RF levothyroxine 150 mcg tablet 150 mcg PO QDAY Qty: 90 3RF pantoprazole 40 mg tablet,delayed release (DR/EC) 40 mg PO DAILY nitroglycerin 0.4 mg tablet, sublingual 0.4 mg sublingual ONCE PRN (Reason: chest pain) Qty: 25 0RF Rx Instructions: PRN CHEST PAIN, take every 5 min x 3 doses max prednisone 10 mg tablet 7 mg PO .QD methocarbamol 500 mg tablet 500 mg PO QID PRN (Reason: muscle spasm) Qty: 30 0RF Follow Up/Referrals: Feliciano Uribe MD [Primary Care Provider] - Stand Alone Forms: [employer] Info Instructions
--- OUTSIDE RECORDS SUMMARY | 2024-08-30 16:47 | XMS_ITS | Referral Summary ---
Author Organization [facility] Address [address] [place] [address] Care Team Providers Care Tool And Die Technician Name Role Phone Feliciano Uribe MD Primary Care Provider Christina Roe PA-C Unavailable Christina Roe PA-C Unavailable Richie Rowell [facility] Unavailable Richie Rowell [facility] Unavailable Zhane Crain MD Unavailable Saeed Berry MD Unavailable [phone] Encounters Date Type Department Care Team Description 08/11/[address] [place] [address] Zhane Cline MD Prior Auth - Medication (Actemra FPAP renewal) 07/31/2024 1:45 PM SAFETY INSPECTOR Lab [facility] [address] [place] [address] [address] [place] [address] GCA (giant cell arteritis) (H); PMR (polymyalgia rheumatica) (H) 07/31/2024 Travel 07/31/2024 2:00 PM SAFETY INSPECTOR Office Visit [address] [place] [address] Christina Roe PA-C Temporal arteritis (H) (Primary Dx); PMR (polymyalgia rheumatica) (H); On prednisone therapy; High risk medication use 07/08/2024 9:30 AM SAFETY INSPECTOR Virtual Visit [facility] [address] [facility] [address] [place] [phone] Zhane Cline MD Krier, John, [facility] GCA (giant cell arteritis) (H) (Primary Dx); PMR (polymyalgia rheumatica) (H); Vaccine counseling 06/12/2024 Telephone [facility] [address] [facility] [address] [place] [address] Christina Roe PA-C Call Back 06/04/2024 MyC Medical Advice [facility] [address] [facility] [address] [place] [address] Christina Roe PA-C Temporal arteritis [...] mouth at bedtime Active D3-50 1.25 MG (74111 UT) capsule Take 1,250 mcg by mouth [...] DT (PEDS <7y) 01/30/1980 Flu, Unspecified 06/21/2020,05/05/2011 [id number] Novel Flu 06/28/2009 Influenza (High Dose) Trival [...] on file Legal Sex Female 3:41 AM SAFETY INSPECTOR Gender Identity Not on file Sexual Orientation Not on file Last Filed Vital Signs Vital Sign Reading Time Taken Comments Blood Pressure 120/64 07/31/2024 1:12 PM SAFETY INSPECTOR Pulse 72 07/31/2024 1:12 PM SAFETY INSPECTOR Temperature 36.7 C (98.1 F) 03/26/2024 4:09 PM CDT Respiratory Rate 98 04/17/2024 12:17 PM CDT Oxygen Saturation 96% 03/26/2024 4:09 PM CDT Inhaled Oxygen Concentration - - Weight 62.6 kg (138 lb) 07/31/2024 1:12 PM SAFETY INSPECTOR Height 152.4 cm (5') 03/23/2024 8:57 PM CDT Body Mass Index 26.95 03/23/2024 8:57 PM CDT Plan of Treatment Upcoming Encounters Date Type Department Care Team (Late st Contact Info) Description 10/07/2024 9:30 AM SAFETY INSPECTOR Virtual Visit [facility] [address] [facility] [address] [place] [phone] Christina Roe, ROSLYN [address] [place] [address] Richie Rowell, [address] [address] 10/23/2024 8:00 AM SAFETY INSPECTOR Lab [facility] [address] [place] [address] [address] [place] [phone] 10/30/2024 10:00 AM SAFETY INSPECTOR Office Visit [facility] [address] [facility] [address] [place] [phone] Christina Roe, ROSLYN [address] [place] [address] Procedures Procedure Name Priority Date/Time Associated Diagnosis Comments CBC WITH PLATELETS & DIFFERENTIAL Routine 07/31/2024 1:51 PM SAFETY INSPECTOR GCA (giant cell arteritis) (H) PMR (polymyalgia rheumatica) (H) CBC WITH PLATELETS AND DIFFERENTIAL Routine 07/31/2024 1:51 PM SAFETY INSPECTOR GCA (giant cell arteritis) (H) PMR (polymyalgia rheumatica) (H) ALBUMIN LEVEL Routine 07/31/2024 1:51 PM SAFETY INSPECTOR GCA (giant cell arteritis) (H) PMR (polymyalgia rheumatica) (H) ALT Routine 07/31/2024 1:51 PM SAFETY INSPECTOR GCA (giant cell arteritis) (H) PMR (polymyalgia rheumatica) (H) AST Routine 07/31/2024 1:51 PM SAFETY INSPECTOR GCA (giant cell arteritis) (H) PMR (polymyalgia rheumatica) (H) CREATININE Routine 07/31/2024 1:51 PM SAFETY INSPECTOR GCA (giant cell arteritis) (H) PMR (polymyalgia rheumatica) (H) ERYTHROCYTE SEDIMENTATION RATE AUTO Routine 07/31/2024 1:51 PM SAFETY INSPECTOR GCA (giant cell arteritis) (H) PMR (polymyalgia rheumatica) (H) CRP INFLAMMATION Routine 07/31/2024 1:51 PM SAFETY INSPECTOR GCA (giant cell arteritis) (H) PMR (polymyalgia [...] with platelets and differential (07/31/2024 1:51 PM SAFETY INSPECTOR) WBC Count 5.1 4.0 - 11.0 10e3/uL 07/31/2024 2:07 PM SAFETY INSPECTOR [facility] RBC Count 4.53 3.80 - 5.20 10e6/uL 07/31/2024 2:07 PM SAFETY INSPECTOR [facility] Hemoglobin 13.8 11.7 - 15.7 g/dL 07/31/2024 2:07 PM SAFETY INSPECTOR [facility] Hematocrit 43.9 35.0 - 47.0 % 07/31/2024 2:07 PM SAFETY INSPECTOR [facility] MCV 97 78 - 100 fL 07/31/2024 2:07 PM SAFETY INSPECTOR [facility] MCH 30.5 26.5 - 33.0 pg 07/31/2024 2:07 PM SAFETY INSPECTOR [facility] MCHC 31.4(L) 31.5 - 36.5 g/dL 07/31/2024 2:07 PM SAFETY INSPECTOR [facility] RDW 15.8(H) 10.0 - 15.0 % 07/31/2024 2:07 PM SAFETY INSPECTOR [facility] Platelet Count 251 150 - 450 10e3/uL 07/31/2024 2:07 PM SAFETY INSPECTOR [facility] % Neutrophils 60 % 07/31/2024 2:07 PM SAFETY INSPECTOR [facility] % Lymphocytes 13 % 07/31/2024 2:07 PM SAFETY INSPECTOR [facility] % Monocytes 20 % 07/31/2024 2:07 PM SAFETY INSPECTOR [facility] % Eosinophils 6 % 07/31/2024 2:07 PM SAFETY INSPECTOR [facility] % Basophils 1 % 07/31/2024 2:07 PM SAFETY INSPECTOR [facility] % Immature Granulocytes 0 % 07/31/2024 2:07 PM SAFETY INSPECTOR [facility] Absolute Neutrophils 3.1 1.6 - 8.3 10e3/uL 07/31/2024 2:07 PM SAFETY INSPECTOR [facility] Absolute Lymphocytes 0.7(L) 0.8 - 5.3 10e3/uL 07/31/2024 2:07 PM SAFETY INSPECTOR [facility] Absolute Monocytes 1.0 0.0 - 1.3 10e3/uL 07/31/2024 2:07 PM SAFETY INSPECTOR [facility] Absolute Eosinophils 0.3 0.0 - 0.7 10e3/uL 07/31/2024 2:07 PM SAFETY INSPECTOR [facility] Absolute Basophils 0.0 0.0 - 0.2 10e3/uL 07/31/2024 2:07 PM SAFETY INSPECTOR [facility] Absolute Immature Granulocytes 0.0 <=0.4 10e3/uL 07/31/2024 2:07 PM SAFETY INSPECTOR [facility] Blood BLOOD SPECIMEN / Unknown Venipuncture / Unknown 07/31/2024 1:51 PM SAFETY INSPECTOR 07/31/2024 1:51 PM SAFETY INSPECTOR Christina WRIGHTC LAB - BLOOD ORDERABLES Final Result Performing Organization Address City/[facility]/ZIP Co de Phone Number [facility] [address] * Erythrocyte sedimentation rate auto (07/31/2024 1:51 PM SAFETY INSPECTOR) Erythrocyte Sedimentation Rate 5 0 - 30 mm/hr 07/31/2024 2:14 PM SAFETY INSPECTOR [facility] Blood BLOOD SPECIMEN / Unknown Venipuncture / Unknown 07/31/2024 1:51 PM SAFETY INSPECTOR 07/31/2024 1:51 PM SAFETY INSPECTOR Christina KAPOOR-C LAB - BLOOD ORDERABLES Final Result [facility] [address] * CRP inflammation (07/31/2024 1:51 PM SAFETY INSPECTOR) CRP Inflammation <3.00 <5.00 mg/L 07/31/20 9:37 PM SAFETY INSPECTOR [facility] Blood BLOOD SPECIMEN / Unknown Venipuncture / Unknown 07/31/2024 1:51 PM SAFETY INSPECTOR 07/31/2024 1:51 PM SAFETY INSPECTOR Christina KAPOOR-C LAB - BLOOD ORDERABLES Final Result [facility] [address] [facility], [address] * Creatinine (07/31/2024 1:51 PM SAFETY INSPECTOR) Creatinine 0.75 0.51 - 0.95 mg/dL 07/31/2024 9:37 PM SAFETY INSPECTOR [facility] GFR Estimate 81 >60 mL/min/1.7 3m2 07/31/2024 9:37 PM SAFETY INSPECTOR [facility] Comment:eGFR calculated usin 2020 CKD-EPI equation. Blood BLOOD SPECIMEN / Unknown Venipuncture / Unknown 07/31/2024 1:51 PM SAFETY INSPECTOR 07/31/2024 1:51 PM SAFETY INSPECTOR Christina KAPOOR-C LAB - BLOOD ORDERABLES Final Result LABORATORY [facility] [address] [facility], [address] * AST (07/31/2024 1:51 PM SAFETY INSPECTOR) AST 29 0 - 45 U/L 07/31/2024 9:3 7 PM SAFETY INSPECTOR [facility] Blood BLOOD SPECIMEN / Unknown Venipuncture / Unknown 07/31/2024 1:51 PM SAFETY INSPECTOR 07/31/2024 1:51 PM SAFETY INSPECTOR Christina KAPOOR-C LAB - BLOOD ORDERABLES Final Result [facility] [address] [facility], [address] [phone] * ALT (07/31/2024 1:51 PM SAFETY INSPECTOR) Pathologist [facility] ALT 33 0 - 50 U/L 07/31/2024 9:3 7 PM SAFETY INSPECTOR [facility] Blood BLOOD SPECIMEN / Unknown Venipuncture / Unknown 07/31/2024 1:51 PM SAFETY INSPECTOR 07/31/2024 1:51 PM SAFETY INSPECTOR Christina Roe PA-C LAB - BLOOD ORDERABLES Final Result [facility] [address] [facility], [address] * Albumin level (07/31/2024 1:51 PM SAFETY INSPECTOR) [facility] Albumin 4.5 3.5 - 5.2 g/dL 07/31/2024 9:37 PM SAFETY INSPECTOR [facility] Blood BLOOD SPECIMEN / Unknown Venipuncture / Unknown 07/31/2024 1:51 PM SAFETY INSPECTOR 07/31/2024 1:51 PM SAFETY INSPECTOR Christina Roe PA-C LAB - BLOOD ORDERABLES Final Result [facility] [address] [facility], [address] * Lipid panel reflex to direct LDL Fasting (04/17/2024 1:11 PM CDT) [facility] Cholesterol 182 <200 mg/dL 04/17/2024 7:43 [...] PM CDT 04/17/2024 1:[address] [facility] - 04/17/2024 7:43 PM CDT [...] BLOOD O RDERABLES Final Result [facility] [address] [facility], [address] [id number] * Hepatitis C antibody (04/17/2024 [...] RDERABLES Final Result [facility] [address] [facility], [address] [phone] * (ABNORMAL) Basic metabolic [...] - BLOOD ORDERABLES Final Result [facility] [address] [facility], [address] [address] * TSH (03/22/2024 8:45 AM CDT) TSH 2.40 0.30 - 4.20 uIU/mL 03/22/2024 10:19 AM CDT [facility] Blood BLOOD SPECIMEN / Unknown Venipuncture / Unknown 03/22/2024 8:45 AM CDT 03/22/2024 9:23 AM CDT us Jona Sears MD LAB - BLOOD ORDERABLES Daylin l Result Performing Organization Address City/[facility]/ZIP Co de Phone Number [facility] Core [facility] [address] [facility], [address] [phone] [place] [address] from Last 3 Months or Most Recently Relevant to Health Maintenance Insurance [facility] [employer] MEDICARE [facility] [employer] MEDICARE * Guarantor: Gato Jimenez Account Type Relation to Patient Date of Phone Billing Address Medication Therapy Self [address] [place] [address] MEDICARE [facility] [employer] [facility] [employer] MEDIC[employer] Advance Directives For more information, please contact: [phone] * Full Code (Latest Code Status on [...] nidiae nt/ legal decision maker Care Teams Tool And Die Technician Relationship Specialty Start Date End Date Feliciano Uribe MD [address] [address] PCP - General Family Medicine 06/01/23 Christina Roe PA-C [address] [place] [address] Physician Food Handler Rheumatology 11/06/23 Christina Roe PA-C [address] [place] [address] Assigned Rheumatology Provider 11/09/23 Richie Rowell RPH [address] [place] [address] Pharmacist Pharmacist 04/08/24 Richie Rowell RPH [address] [place] [address] Assigned MTM Pharmacist 04/18/24 Zhane Crain MD [address] [place], [place] [address] Physician Rheumatology 05/14/24 Saeed Berry MD [address] [facility] [address] [place], [place] [id number] Assigned Surgical Provider 05/19/24
--- OUTSIDE RECORDS SUMMARY | 2024-08-30 16:47 | XMS_ITS | Clinical Summary ---
Author Organization [facility] Address [place], [place] [address] Care Team Providers Care Waterproofer Helper Name Role Phone Feliciano Uribe MD Primary Care Provider [phone] Allergies Active Allergy Reactions Criticality Noted Date [...] Department Care Team Description 07/09/2024 10:02 AM HOG HANDLER Anesthesia Event [address] [address] Michael Cabrera MD [place], Lindsey Theresa, GLUE SIZE 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 07/09/2024 9:55 AM HOG HANDLER - 07/09/2024 12:10 PM HOG HANDLER Surgery [address] [address] Rubin Mancera MD LEFT TOTAL KNEE ARTHROPLASTY 07/09/2024 7:30 AM HOG HANDLER - 07/10/2024 12:45 PM HOG HANDLER Hospital Encounter [address] [address] Rubin Mancera MD [place], Ian Mark, DO S/P total knee arthroplasty, left (Primary Dx); Nausea Discharge Disposition: Home Self Care 07/09/2024 Travel 06/15/2024 Refill [facility] & [address] [address] Ethan Abrams MD Refill Request (Metoprolol Tartrate, Lisinopril) from Last 3 Months Social History Tobacco Use Types Packs/Day Years Used Date Smoking Tobacco: Never Smokeless Tobacco: Never Tobacco Cessation:Counseling Given: Not Answered Alcohol Use Standard Drinks/Week Comments Yes 0 (1 standard drink = 0.6 oz pur e alcohol) occ wine [facility] Utilities Answer Date Recorded Do you have [...] on file Legal Sex Female 8:24 AM HOG HANDLER Gender Identity Not on file Sexual Orientation Not on file Obstetrics History Last Filed Vital Signs Vital Sign Reading Time Taken Comments Blood Pressure 141/69 07/10/2024 8:15 AM HOG HANDLER Pulse 56 07/10/2024 8:15 AM HOG HANDLER Temperature 36.4 C (97.5 F) 07/10/2024 8:03 AM HOG HANDLER Respiratory Rate 24 07/10/2024 8:15 AM HOG HANDLER Oxygen Saturation 96% 07/10/2024 8:15 AM HOG HANDLER Inhaled Oxygen Concentration - - Weight 66.1 kg (145 lb 11.2 oz) 07/09/2024 8:18 AM HOG HANDLER Height 177.8 cm (5' 10) 07/04/2024 3:14 PM HOG HANDLER Body Mass Index 20.91 07/04/2024 3:14 PM HOG HANDLER Plan of Treatment Health Maintenance Due Date [...] 65+ 04/27/2024 Medical Devices Implanted Type Area Tube Closing Machine Operator Device Identifier Shelf Expiration Date Model / Serial / Lot Cmnt Bone 40g Simplex P Non Atb Mv - [id number] Implanted:Qty: 1 on 07/09/2024 by Rubin Mancera MD at [facility] Ortho Total Joint Left: Knee [employer] 04/26/2026 6191-1-01 0 / 6191-1-00 1 Triathlon Cruciate Retaining Femoral Implanted:Qty: 1 on 07/09/2024 by Rubin Mancera MD at [facility] Ortho Total Joint Left: Knee [employer] 04/19/2026 5510-F-20 1 / / [id number] Triathlon Primary Tibial Baseplate Implanted:Qty: 1 on 07/09/2024 by Rubin Mancera MD at [facility] Total Joint Left: Knee [employer] 5520-B-20 0 / / [id number] Insert Tib Sz 2 9mm Knee X3 Condylar Stabilizing Triathlon - [id number] Implanted:Qty: 1 on 07/09/2024 by Rubin Mancera MD at [facility] Total Joint Left: Knee [employer] 12/01/2028 5531-G-20 9-E / / [id number] Implant Patellar 14rft2un Knee X3 Asymmetric Tri[employer]lon - [id number] Implanted:Qty: 1 on 07/09/2024 by Rubin Mancera MD at [facility] Total Joint Left: Knee [employer] 02/11/2029 5551-G-29 9-E / / [id number] Procedures Procedure Name Priority Date/Time Associated Diagnosis Comments GLUCOSE METER Timed 07/10/2024 8:23 AM HOG HANDLER HEMOGLOBIN Early AM 07/10/2024 5:54 AM HOG HANDLER XR KNEE 2 VIEWS LEFT PORTABLE STEFFANY 07/09/2024 12:05 PM HOG HANDLER SPINAL BLOCK Routine 07/09/2024 10:18 AM HOG HANDLER ARTHROPLASTY KNEE 07/09/2024 9:4 2 AM HOG HANDLER Osteoarthritis left knee Case Notes MARIBEL SANTORO - Tarun NEWTON Justine notified via email 05/27 Special Needs CHART MADEH&P scanned, 06/24/2024 Dr Feliciano Queen emailed - to chrg/anes for review pt hx heart failure, Ok'd 07/03 PERIPHERAL BLOCK Routine 07/09/2024 9:23 AM HOG HANDLER PERIPHERAL BLOCK Routine 07/09/2024 9:23 AM HOG HANDLER GLUCOSE METER Timed 07/09/2024 8:50 AM HOG HANDLER POTASSIUM Preop 07/09/2024 8:11 AM HOG HANDLER CREATININE Preop 07/09/2024 8:11 AM HOG HANDLER CBC W PLT NO DIFF Preop 07/09/2024 8:1 1 AM HOG HANDLER SCAN-CARDIAC STRIP 07/09/2024 12:00 AM HOG HANDLER from Last 3 Months Results * (ABNORMAL) GLUCOSE METER (07/10/2024 8:23 AM HOG HANDLER) Only the most recent of2 resultswithin the time period is included. GLUCOSE METER 105(H) 65 - 100 mg/dL 07/10/2024 8:24 AM HOG HANDLER [facility] Blood BLOOD SPECIMEN / Unknown 07/10/2024 8:23 AM HOG HANDLER 07/10/2024 8:24 AM HOG HANDLER us Rubin Mancera MD CHEMISTRY Final Re sult [facility] [address] [place] [address], [place] [phone] * (ABNORMAL) Hemoglobin - in AM (07/10/2024 5:54 AM HOG HANDLER) HEMOGLOBIN 11.7(L) 12.0 - 16.0 g/dL 07/10/2024 6:16 AM HOG HANDLER [facility] MCV 93 80 - 100 fL 07/10/2024 6:16 AM HOG HANDLER [facility] Blood BLOOD SPECIMEN / Unknown Venipuncture / Unknown 07/10/2024 5:54 AM HOG HANDLER 07/10/2024 6:09 AM HOG HANDLER Thi [facility] Final Result [facility] [address] [place] [address], * XR KNEE 2 VIEWS LEFT PORTABLE (07/09/2024 12:05 PM HOG HANDLER) Anatomical Region Laterality Modality KNEE L Computed Radiogr aphy 07/09/2024 12:0 5 PM HOG HANDLER Impressions 07/09/2024 12:12 PM HOG HANDLER Interval postsurgical changes of a left knee arthroplasty. No radiographic evidence of hardware complication. Expected postoperative changes of subcutaneous emphysema and edema. Narrative 07/09/2024 12:12 PM HOG HANDLER For Patients: As a result of the Cures Act, medical imaging exams and procedure reports are released immediately into your electronic medical record. You may view this report before your referring provider. If you have questions, please contact your health care provider. EXAM: XR KNEE 2 VIEWS LEFT PORTABLE LOCATION: [facility] DATE: 07/09/2024 INDICATION: Immediate post-operative joint positioning [...] XR KNEE 2 VIEWS LEFT PORTABLE LOCATION: [facility] DATE: 07/09/2024 INDICATION: Immediate post-operative joint positioning evaluation. COMPARISON: None. IMPRESSION: Interval postsurgical changes of a left knee arthroplasty. No radiographicevidence of hardware complication. Expected postoperative changes ofsubcutaneous emphysema and edema. Thi [facility] Final Result * [facility] TRAY PR10 (07/09/2024 10:18 AM HOG HANDLER) Narrative Neil Maravilla GLUE SIZE 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 - 07/09/2024 10:18 AM HOG HANDLER Neil Maravilla CRNA 07/09/2024 10:19 AM Spinal [...] PX NOTE ORDE RABLES Final Result * [facility] NDL PR10, [facility] ANES BLOCK INJ PERIPH (07/09/2024 9:23 AM HOG HANDLER) Narrative Michael Cabrera MD - 07/09/2024 9:23 AM HOG HANDLER Michael Cabrera MD 07/09/2024 9:23 AM Peripheral [...] complications. Michael Cabrera MD ANESTHESIA PX NOTE YNOAS GILL Final Result * CBC with Platelets no Differential (07/09/2024 8:11 AM HOG HANDLER) WHITE BLOOD COUNT 6.0 4.5 - 11.0 thou/cu mm 07/09/2024 8:16 AM [facility] RED BLOOD COUNT 4.42 4.00 - 5.20 mil/cu mm 07/09/2024 8:16 AM [facility] HEMOGLOBIN 13.4 12.0 - 16.0 g/dL 07/09/2024 8:16 AM [facility] HEMATOCRIT 41.1 33.0 - 51.0 % 07/09/2024 8:16 AM [facility] MCV 93 80 - 100 fL 07/09/2024 8:16 AM [facility] MCH 30.3 26.0 - 34.0 pg 07/09/2024 8:16 AM [facility] MCHC 32.6 32.0 - 36.0 g/dL 07/09/2024 8:16 AM [facility] RDW 14.5 11.5 - 15.5 % 07/09/2024 8:16 AM [facility] PLATELET COUNT 165 140 - 440 thou/cu mm 07/09/2024 8:16 AM [facility] MPV 10.5 6.5 - 11.0 fL 07/09/2024 8:16 AM [facility] NRBC 0.0 % 07/09/2024 8:16 AM HOG HANDLER [facility] ABS NRBC 0.0 thou /cu mm 07/09/2024 8:16 AM HOG HANDLER [facility] Blood BLOOD SPECIMEN / Unknown Butterfly / Unknown 07/09/2024 8:11 AM HOG HANDLER 07/09/2024 8:14 AM HOG HANDLER us Marialuisa [facility] Final Result [facility] [address] [place] [address], * Potassium (07/09/2024 8:11 AM HOG HANDLER) POTASSIUM 4.1 3.5 - 5.1 mmol/L 07/09/2024 8:35 AM HOG HANDLER [facility] Blood BLOOD SPECIMEN / Unknown Butterfly / Unknown 07/09/2024 8:11 AM HOG HANDLER 07/09/2024 8:14 AM HOG HANDLER Marialuisa [facility] CHEMISTR[facility] Final Result Performing Organization Address City/[facility]/ZIP Co de Phone Number [facility] [address] [place] [address], * (ABNORMAL) Creatinine (07/09/2024 8:11 AM HOG HANDLER) eGFR 89(L) >90 mL/min/1.7 3m2 07/09/2024 8:35 AM HOG HANDLER [facility] Comment:As of 2021, eG FR is calculated by the CKD-EPI creatinine equation without race adjustment. eGFR can be influenced by muscle mass, exercise, and diet. The reported eGFR is an estimation only and is only applicable if the renal function is stable. CREATININE 0.68 0.50 - 0.90 mg/dL 07/09/2024 8:35 AM HOG HANDLER [facility] Blood BLOOD SPECIMEN / Unknown Butterfly / Unknown 07/09/2024 8:11 AM HOG HANDLER 07/09/2024 8:14 AM HOG HANDLER us Marialuisa [facility] CHEMISTRY Final Result [facility] [address] [place] [address], * SCAN-CARDIAC STRIP (07/09/2024 12:00 AM HOG HANDLER) Narrative 07/09/2024 12:00 AM HOG HANDLER Ordered by an unspecified provider. Other Clinical Staff OTHER Final Resul t from Last 3 Months Insurance [employer] [place] [place] MR PB ONLY [employer] [place] [place] [employer] HB ONLY MEDICARE PART A HB [...] Code Status Discussion: Reviewed Preferences Care Teams Waterproofer Helper Relationship Specialty Start Date End Date Feliciano Uribe MD [address] [place] [address] PCP - General Family Practice 09/01/22
--- OUTSIDE RECORDS SUMMARY | 2024-08-30 16:47 | XMS_ITS | Clinical Summary ---
Author Organization [facility] Address [address] [place] [address] Care Team Providers Care Edging Machine Setter Name Role Phone Feliciano Uribe MD Primary Care Provider Christina Roe PA-C Unavailable Christina Roe PA-C Unavailable Richie Rowell [facility] Unavailable Richie Rowell [facility] Unavailable Zhane Crain MD Unavailable Saeed Berry MD Unavailable [phone] Allergies Active Allergy Reactions Criticality Noted Date Comments Aspirin 11/06/2023 Contraindicated due to hx of gastric bypass Medications amoxicillin (AMOXIL) 500 MG capsule TAKE 4 CAPSULES BY MOUTH 1 HOUR BEFORE DENTAL APPOINTMENT FOR 1 DOSE 11/07/19 23 Active atorvastatin (LIPITOR) 10 MG tablet Take 10 mg by mouth at bedtime Active D3-50 1.25 MG (40196 UT) capsule Take 1,250 mcg by mouth [...] Type Department Care Team Description 08/11/[address] [place] [address] Zhane Cline MD Prior Auth - Medication (Actemra FPAP renewal) 07/31/2024 2:00 PM HOUSEKEEPER Office Visit [address] [place] [address] Christina Roe PA-C Temporal arteritis (H) (Primary Dx); PMR (polymyalgia rheumatica) (H); On prednisone therapy; High risk medication use 07/31/2024 1:45 PM HOUSEKEEPER Lab [facility] [address] [place] [address] [address] [place] [address] GCA (giant cell arteritis) (H); PMR (polymyalgia rheumatica) (H) 07/31/2024 Travel 07/08/2024 9:30 AM HOUSEKEEPER Virtual Visit [facility] Rheumatology [facility] [address] [facility] [address] [place] [address] Zhane Cline MD Krier, John, [facility] GCA (giant cell arteritis) (H) (Primary Dx); PMR (polymyalgia rheumatica) (H); Vaccine counseling 06/12/2024 Telephone [facility] [address] [facility] [address] [place] [address] Christina Roe PA-C Call Back 06/04/2024 MyC Medical Advice [facility] [address] [facility] [address] [place] [address] Christina Roe PA-C Temporal arteritis (H); PMR (polymyalgia rheumatica) (H) from Last 3 Months Immunizations Name Administration Dates Next Due DT (PEDS <7y) 01/30/1980 Flu, Unspecified 06/21/2020,05/05/2011 [id number] Novel Flu 06/28/2009 Influenza (High Dose) Trival [...] on file Legal Sex Female 3:41 AM HOUSEKEEPER Gender Identity Not on file Sexual Orientation Not on file Last Filed Vital Signs Vital Sign Reading Time Taken Comments Blood Pressure 120/64 07/31/2024 1:12 PM HOUSEKEEPER Pulse 72 07/31/2024 1:12 PM HOUSEKEEPER Temperature 36.7 C (98.1 F) 03/26/2024 4:09 PM CDT Respiratory Rate 98 04/17/2024 12:17 PM CDT Oxygen Saturation 96% 03/26/2024 4:09 PM CDT Inhaled Oxygen Concentration - - Weight 62.6 kg (138 lb) 07/31/2024 1:12 PM HOUSEKEEPER Height 152.4 cm (5') 03/23/2024 8:57 PM CDT Body Mass Index 26.95 03/23/2024 8:57 PM CDT Plan of Treatment Upcoming Encounters Date Type Department Care Team (Late st Contact Info) Description 10/07/2024 9:30 AM HOUSEKEEPER Virtual Visit [facility] Rheumatology [facility] [address] [facility] [address] [place] [phone] Christina Roe PA-C [address] [place] [address] Richie Rowell, [facility] [address] [place] [address] 10/23/2024 8:00 AM HOUSEKEEPER Lab [facility] [address] [place] [address] [address] [place] [phone] 10/30/2024 10:00 AM HOUSEKEEPER Office Visit [address] [place] [phone] Christina Roe PA-C [address] [place] [address] Health Maintenance Due Date Last Done Comments [...] PLATELETS & DIFFERENTIAL Routine 07/31/2024 1:51 PM HOUSEKEEPER GCA (giant cell arteritis) (H) PMR (polymyalgia rheumatica) (H) CBC WITH PLATELETS AND DIFFERENTIAL Routine 07/31/2024 1:51 PM HOUSEKEEPER GCA (giant cell arteritis) (H) PMR (polymyalgia rheumatica) (H) ALBUMIN LEVEL Routine 07/31/2024 1:51 PM HOUSEKEEPER GCA (giant cell arteritis) (H) PMR (polymyalgia rheumatica) (H) ALT Routine 07/31/2024 1:51 PM HOUSEKEEPER GCA (giant cell arteritis) (H) PMR (polymyalgia rheumatica) (H) AST Routine 07/31/2024 1:51 PM HOUSEKEEPER GCA (giant cell arteritis) (H) PMR (polymyalgia rheumatica) (H) CREATININE Routine 07/31/2024 1:51 PM HOUSEKEEPER GCA (giant cell arteritis) (H) PMR (polymyalgia rheumatica) (H) ERYTHROCYTE SEDIMENTATION RATE AUTO Routine 07/31/2024 1:51 PM HOUSEKEEPER GCA (giant cell arteritis) (H) PMR (polymyalgia rheumatica) (H) CRP INFLAMMATION Routine 07/31/2024 1:51 PM HOUSEKEEPER GCA (giant cell arteritis) (H) PMR (polymyalgia [...] with platelets and differential (07/31/2024 1:51 PM HOUSEKEEPER) [facility] WBC Count 5.1 4.0 - 11.0 10e3/uL 07/31/2024 2:07 PM HOUSEKEEPER [facility] RBC Count 4.53 3.80 - 5.20 10e6/uL 07/31/2024 2:07 PM HOUSEKEEPER [facility] Hemoglobin 13.8 11.7 - 15.7 g/dL 07/31/2024 2:07 PM HOUSEKEEPER [facility] Hematocrit 43.9 35.0 - 47.0 % 07/31/2024 2:07 PM HOUSEKEEPER [facility] MCV 97 78 - 100 fL 07/31/2024 2:07 PM HOUSEKEEPER [facility] MCH 30.5 26.5 - 33.0 pg 07/31/2024 2:07 PM HOUSEKEEPER [facility] MCHC 31.4(L) 31.5 - 36.5 g/dL 07/31/2024 2:07 PM HOUSEKEEPER [facility] RDW 15.8(H) 10.0 - 15.0 % 07/31/2024 2:07 PM HOUSEKEEPER [facility] Platelet Count 251 150 - 450 10e3/uL 07/31/2024 2:07 PM HOUSEKEEPER [facility] % Neutrophils 60 % 07/31/2024 2:07 PM HOUSEKEEPER [facility] % Lymphocytes 13 % 07/31/2024 2:07 PM HOUSEKEEPER [facility] % Monocytes 20 % 07/31/2024 2:07 PM HOUSEKEEPER [facility] % Eosinophils 6 % 07/31/2024 2:07 PM HOUSEKEEPER [facility] % Basophils 1 % 07/31/2024 2:07 PM HOUSEKEEPER [facility] % Immature Granulocytes 0 % 07/31/2024 2:07 PM HOUSEKEEPER [facility] Absolute Neutrophils 3.1 1.6 - 8.3 10e3/uL 07/31/2024 2:07 PM HOUSEKEEPER [facility] Absolute Lymphocytes 0.7(L) 0.8 - 5.3 10e3/uL 07/31/2024 2:07 PM HOUSEKEEPER [facility] Absolute Monocytes 1.0 0.0 - 1.3 10e3/uL 07/31/2024 2:07 PM HOUSEKEEPER [facility] Absolute Eosinophils 0.3 0.0 - 0.7 10e3/uL 07/31/2024 2:07 PM HOUSEKEEPER [facility] Absolute Basophils 0.0 0.0 - 0.2 10e3/uL 07/31/2024 2:07 PM HOUSEKEEPER [facility] Absolute Immature Granulocytes 0.0 <=0.4 10e3/uL 07/31/2024 2:07 PM HOUSEKEEPER [facility] Blood BLOOD SPECIMEN / Unknown Venipuncture / Unknown 07/31/2024 1:51 PM HOUSEKEEPER 07/31/2024 1:51 PM HOUSEKEEPER Christina Roe PA-C LAB - BLOOD ORDERABLES Final Result [facility] [address] * Erythrocyte sedimentation rate auto (07/31/2024 1:51 PM HOUSEKEEPER) Erythrocyte Sedimentation Rate 5 0 - 30 mm/hr 07/31/2024 2:14 PM HOUSEKEEPER [facility] Blood BLOOD SPECIMEN / Unknown Venipuncture / Unknown 07/31/2024 1:51 PM HOUSEKEEPER 07/31/2024 1:51 PM HOUSEKEEPER Christina WRIGHTC LAB - BLOOD ORDERABLES Final Result [facility] [address] * CRP inflammation (07/31/2024 1:51 PM HOUSEKEEPER) CRP Inflammation <3.00 <5.00 mg/L 07/31/20 9:37 PM HOUSEKEEPER [facility] Blood BLOOD SPECIMEN / Unknown Venipuncture / Unknown 07/31/2024 1:51 PM HOUSEKEEPER 07/31/2024 1:51 PM HOUSEKEEPER Christina WRIGHTC LAB - BLOOD ORDERABLES Final Result [facility] [address] [facility], [address] [place] [address] * Creatinine (07/31/2024 1:51 PM HOUSEKEEPER) Creatinine 0.75 0.51 - 0.95 mg/dL 07/31/2024 9:37 PM HOUSEKEEPER [facility] GFR Estimate 81 >60 mL/min/1.7 3m2 07/31/2024 9:37 PM HOUSEKEEPER [facility] Comment:eGFR calculated usin 2020 CKD-EPI equation. Blood BLOOD SPECIMEN / Unknown Venipuncture / Unknown 07/31/2024 1:51 PM HOUSEKEEPER 07/31/2024 1:51 PM HOUSEKEEPER us Christina Roe PA-C LAB - BLOOD ORDERABLES Final Result [facility] [address] [facility], [address] [place] [address] * AST (07/31/2024 1:51 PM HOUSEKEEPER) AST 29 0 - 45 U/L 07/31/2024 9:3 7 PM HOUSEKEEPER [facility] Blood BLOOD SPECIMEN / Unknown Venipuncture / Unknown 07/31/2024 1:51 PM HOUSEKEEPER 07/31/2024 1:51 PM HOUSEKEEPER us Christina Roe PA-C LAB - BLOOD ORDERABLES Final Result [facility] [address] [facility], [address] * ALT (07/31/2024 1:51 PM HOUSEKEEPER) ALT 33 0 - 50 U/L 07/31/2024 9:3 7 PM HOUSEKEEPER [facility] Blood BLOOD SPECIMEN / Unknown Venipuncture / Unknown 07/31/2024 1:51 PM HOUSEKEEPER 07/31/2024 1:51 PM HOUSEKEEPER us Christina Roe PA-C LAB - BLOOD ORDERABLES Final Result [facility] [address] [facility], [address] * Albumin level (07/31/2024 1:51 PM HOUSEKEEPER) Albumin 4.5 3.5 - 5.2 g/dL 07/31/2024 9:37 PM HOUSEKEEPER [facility] Blood BLOOD SPECIMEN / Unknown Venipuncture / Unknown 07/31/2024 1:51 PM HOUSEKEEPER 07/31/2024 1:51 PM HOUSEKEEPER Christina Roe PA-C LAB - BLOOD ORDERABLES Final Result Performing Organization Address City/[facility] Co de Phone Number [facility] [address] [place] [address], [address] * Lipid panel reflex to direct [...] O RDERABLES Final Result Performing Organization Address City/[facility]/ZIP Co de Phone Number LABORATORY [facility] [address] [facility], [address] [phone] * Hepatitis C antibody (04/17/2024 1:11 PM CDT) [facility] Hepatitis C Antibody Nonreactive Nonreactive [...] O RDERABLES Final Result Performing Organization Address [facility]/ZIP Co de Phone Number LABORATORY [facility] [address] [facility], [address] [phone] * (ABNORMAL) Basic metabolic panel [...] Final Result [facility] [address] [facility], [address] [place] [address] * TSH (03/22/2024 8:45 AM CDT) TSH 2.40 0.30 - 4.20 uIU/mL 03/22/2024 10:19 AM CDT [facility] Blood BLOOD SPECIMEN / Unknown Venipuncture / Unknown 03/22/2024 8:45 AM CDT 03/22/2024 9:23 AM CDT us Jona Sears MD LAB - BLOOD ORDERABLES Daylin corrales Result [facility] [address] [facility], [address] [place] [address], [facility] from Last 3 Months or Most Recently Relevant to Health Maintenance Insurance [employer] [place] MEDICARE FORMERLY [facility] MEDICARE * Guarantor: Gato Jimenez Account Type Relation to Patient Date of Phone Billing Address Medication Therapy Self [address] [place] [id number] MEDICARE [employer] MEDICARE Advance Directives For more information, please contact: [phone] * Full Code (Latest Code Status on [...] patie nt/ legal decision maker Care Teams Edging Machine Setter Relationship Specialty Start Date End Date Feliciano Uribe MD [facility] & [address] [address] PCP - General Family Medicine 06/01/23 Christina Roe PA-C [address] [place] [address] Physician Event Host Rheumatology 11/06/23 Christina Roe PA-C [address] [place] [address] Assigned Rheumatology Provider 11/09/23 Richie Rowell RPH [address] [place] [address] Pharmacist Pharmacist 04/08/24 Richie Rowell RPH [address] [place] [address] Assigned MTM Pharmacist 04/18/24 Zhane Crain MD [address] [place] [phone] Physician Rheumatology 05/14/24 Saeed Berry MD [address] [place] [phone] Assigned Surgical Provider 05/19/24
--- OUTSIDE RECORDS SUMMARY | 2024-08-30 16:48 | XMS_ITS | Referral Summary ---
Author Organization [facility] Address [address] [place] [address] Care Team Providers Care Coat Operator Name Role Phone Unavailable Primary Care Provider Unavailabl e Source Comments Patient records contain information from all sites at [facility]. For routine questions regarding patient records, call [phone] during business hours, M-F 8:00 AM - 5:00 PM Central Time. Record requests for emergency care only can be directed to [phone] at any time.[facility] Allergies No known active allergies Medications [...] How often do you attend chur or sikhism services? More than 4 times per year 10/10/2022 Do you belong to any clubs o r organizations such as shinto groups, unions, fraternal or athletic groups, or [...] and heating? Not hard at all 10/10/2022 [facility] - Occupational Stress [...] Sex Assigned at Female 10/10/2022 4:07 PM PLANT PHYSIOLOGY TEACHER Legal Sex Female 6:05 AM PLANT PHYSIOLOGY TEACHER Gender Identity Female 07/16/2018 12:55 PM PLANT PHYSIOLOGY TEACHER Sexual Orientation Straight 07/16/2018 12 :55 PM PLANT PHYSIOLOGY TEACHER Last Filed Vital Signs Vital Sign Reading Time Taken Comments Blood Pressure 163/73 10/31/2022 12:17 PM PLANT PHYSIOLOGY TEACHER Pulse 75 10/31/2022 12:17 PM PLANT PHYSIOLOGY TEACHER Temperature 36.5 C (97.7 F) 10/31/2022 12:27 PM PLANT PHYSIOLOGY TEACHER Respiratory Rate 20 10/31/2022 12:1 7 PM PLANT PHYSIOLOGY TEACHER Oxygen Saturation 96% 10/31/2022 12: 17 PM PLANT PHYSIOLOGY TEACHER Inhaled Oxygen Concentration - - Weight 55.2 kg (121 lb 11.1 oz) 11/01/2022 9:18 AM PLANT PHYSIOLOGY TEACHER Height 152 cm (4' 11.84) 11/01/2022 9:18 AM PLANT PHYSIOLOGY TEACHER Body Mass Index 23.89 11/01/2022 9:18 AM PLANT PHYSIOLOGY TEACHER Plan of Treatment Not on file Medical Devices Implanted Type Area Chief Compressor Station Engineer Device Identifier Shelf Expiration Date Model / Serial / Lot Knee Implant- [id number] Implanted:01/2022 (Quantity not on file) Knee Implant Right: Knee Ocular Lens Ocular Lens Bilatera l: Eye Procedures Procedure Name Priority Date/Time Associated Diagnosis Comments COMPREHENSIVE METABOLIC PANEL, S/P Routine 10/17/2022 10:01 AM PLANT PHYSIOLOGY TEACHER 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, S Routine 06/23/2019 10:25 AM CDT Overweight Body Mass Index 25-29.9 Adult Hypertension Essential Primary Hyperlipidemia Family History Coronary Artery Disease Elevated Liver Enzyme Abnormal, Aspartate Transaminase, Serum Glutamic-Oxaloacetic Transaminase, Alanine Transaminase Hypothyroidism Primary from Last 3 Months or Most Recently Relevant to Health Maintenance Results * Comprehensive Metabolic Panel (10/17/2022 10:01 AM PLANT PHYSIOLOGY TEACHER) Potassium, S 4.5 3.6 - 5.2 mmol/L 10/17/2022 11:02 AM PLANT PHYSIOLOGY TEACHER DTL Sodium, S 141 135 - 145 mmol/L 10/17/2022 11:02 AM PLANT PHYSIOLOGY TEACHER DTL Chloride, S 106 98 - 107 mmol/L 10/17/2022 11:02 AM PLANT PHYSIOLOGY TEACHER DTL Bicarbonate, S 26 22 - 29 mmol/L 10/17/2022 11:02 AM PLANT PHYSIOLOGY TEACHER DTL Anion Gap 9 7 - 15 10/17/2022 11:02 AM PLANT PHYSIOLOGY TEACHER DTL BUN (Blood Urea Nitrogen), S 12 6 - 21 mg/dL 10/17/2022 11:02 AM PLANT PHYSIOLOGY TEACHER DTL Creatinine 0.59 0.59 - 1.04 mg/dL 10/17/2022 11:02 AM PLANT PHYSIOLOGY TEACHER DTL Estimated GFR (eGFR) >90 >=60 mL/min/BS A 10/17/2022 11:02 AM PLANT PHYSIOLOGY TEACHER DTL Comment: Estimated GFR calculated using the 2020 CKD_EPI creatinine equation. Calcium, Total, S 9.7 8.8 - 10.2 mg/dL 10/17/2022 11:02 AM PLANT PHYSIOLOGY TEACHER DTL Glucose, S 100 70 - 140 mg/dL 10/17/2022 11:02 AM PLANT PHYSIOLOGY TEACHER DTL Protein, Total, S 6.8 6.3 - 7.9 g/dL 10/17/2022 11:02 AM PLANT PHYSIOLOGY TEACHER DTL Albumin, S 4.5 3.5 - 5.0 g/dL 10/17/2022 11:02 AM PLANT PHYSIOLOGY TEACHER DTL Aspartate Aminotransferase (AST), S 23 8 - 43 U/L 10/17/2022 11:02 AM PLANT PHYSIOLOGY TEACHER DTL Alkaline Phosphatase, S 83 35 - 104 U/L 10/17/2022 11:02 AM PLANT PHYSIOLOGY TEACHER DTL Alanine Aminotransferase (ALT), S 23 7 - 45 U/L 10/17/2022 11:02 AM PLANT PHYSIOLOGY TEACHER DTL Bilirubin, Total, S 0.3 <=1.2 mg/dL 10/17/2022 11:02 AM PLANT PHYSIOLOGY TEACHER DTL Blood (Blood, Venous) 10/17/2022 10:01 AM PLANT PHYSIOLOGY TEACHER 10/17/2022 10:38 AM PLANT PHYSIOLOGY TEACHER Merlyn Cobos M.D. LAB BLOOD ADD-O N Final Result [facility] [address] [place] [address], [facility] [place] [address] [place] [address] * (ABNORMAL) Thyroid Function [place] (06/23/2019 10:25 AM CDT) TSH, Sensitive 6.0(H) 0.3 - 4.2 mIU/L 06/24/2019 8:43 AM CDT DTL Blood (Blood, Venous) 06/23/2019 10:25 AM CDT 06/24/2019 7:34 AM CDT Narrative Resulting Agency Comment Mailed In Specimen Sony Rodriguez APRN, C.N.P., D.N.P. LAB BLOOD A DD-ON Final Result [facility] [address] [place] [address], [place] DTL [facility] [address] [place] [address] from Last 3 Months or Most Recently Relevant to Health Maintenance Insurance MEDICARE [facility]
--- OUTSIDE RECORDS SUMMARY | 2024-08-30 16:48 | XMS_ITS | Encounter Summary ---
Author Organization [facility] Address [address] [place] [address] Care Team Providers Care Senior Associate Name Role Phone Feliciano Uribe MD Primary Care Provider Christina oRe PA-C Unavailable Christina Roe PA-C Unavailable [phone] Richie Rowell [facility] Unavailable Richie Rowell [facility] Unavailable Zhane Crain MD Unavailable Saeed Berry MD Unavailable [phone] Encounter Details Date Type Department Care Team (Late st Contact Info) Description 04/24/2013 Abstract [facility] [place] [facility] [address] [place] [phone] Iris Hernandez [facility] [address] [facility] [address] [place] [address] Social History Tobacco Use Types Packs/Day Years Used Date Smoking Tobacco: Never Assessed Comments Unknown Sex and Gender Information Value Date Recorded Sex Assigned at Not on file Legal Sex Female 3:41 AM MEMBERSHIP SOLICITOR Gender Identity Not on file Sexual Orientation Not on file documented as of this encounter Plan of Treatment Upcoming Encounters Date Type Department Care Team (Late Contact Info) Description 10/07/2024 9:30 AM MEMBERSHIP SOLICITOR Virtual Visit [facility] Rheumatology [facility] [address] [facility] [address] [place] [phone] Christina Roe PA-C [address] [place] [address] Richie Rowell RPH [address] [place] [address] 10/23/2024 8:00 AM MEMBERSHIP SOLICITOR Lab [facility] [address] [place] [address] [address] [place] [phone] 10/30/2024 10:00 AM MEMBERSHIP SOLICITOR Office Visit [facility] [address] [place] [address] 200 [place] [phone] Christina Reo PA-C [address] [place] [address] documented as of this encounter Visit Diagnoses Not on filedocumented in this encounter Care Teams Senior Associate Relationship Specialty Start Date End Date Feliciano Uribe MD [address] [address] PCP - General Family Medicine 06/01/23 Christina Roe PA-C [address] [place] [address] Physician Meatcutter Rheumatology 11/06/23 Christina Roe PA-C [address] [place] [address] Assigned Rheumatology Provider 11/09/23 Richie Rowell RPH [address] [place] [address] Pharmacist Pharmacist 04/08/24 Richie Rowell RPH [address] [place] [address] Assigned MTM Pharmacist 04/18/24 Zhane Crain MD [address] [place] [address] Physician Rheumatology 05/14/24 Saeed Berry MD [address] [place] [address] Assigned Surgical Provider 05/19/24 documented as of this encounter
--- OUTSIDE RECORDS SUMMARY | 2024-08-30 16:48 | XMS_ITS | Encounter Summary ---
Author Organization [place] [facility] Address [address] [place] [address]. [place] [address] Care Team Providers Care Sales Office Assistant Name Role Phone Feliciano Uribe MD Primary Care Provider Christina Roe PA-C Unavailable Christina Roe PA-C Unavailable Richie Rowell [facility] Unavailable Richie Rowell [facility] Unavailable Zhane Crain MD Unavailable Saeed Berry MD Unavailable [phone] Encounter Details Date Type Department Care Team (Late st Contact Info) Description 03/25/2024 Ophth Exam [facility] Services - Eye Care Service Line [address] [place] [phone] Jorge Kelly MD [address] [place] [address] [phone] Social History Tobacco Use Types Packs/Day Years [...] on file Legal Sex Female 3:41 AM ADDICTION NURSE Gender Identity Not on file Sexual Orientation Not on file documented as of this encounter Plan of Treatment Upcoming Encounters Date Type Department Care Team (Late st Contact Info) Description 10/07/2024 9:30 AM ADDICTION NURSE Virtual Visit [facility] Rheumatology [facility] [address] [facility] [address] [place] [phone] Crhistina Roe PA-C [address] [place] [address] [facility] 9[address] [place] [address] 10/23/2024 8:00 AM ADDICTION NURSE Lab [facility] [address] [facility] [address] [place] [phone] 10/30/2024 10:00 AM ADDICTION NURSE Office Visit [facility] [address] [facility] [address] [place] [phone] Christina Roe PA-C [address] [place] [address] documented as of this encounter Visit Diagnoses Not on filedocumented in this encounter Care Teams Sales Office Assistant Relationship Specialty Start Date End Date Feliciano Uribe MD [facility] & [address] [address] PCP - General Family Medicine 06/01/23 Christina Roe PA-C [address] [place] [address] Physician Actuarial Clerk Rheumatology 11/06/23 Christina Roe PA-C [address] [place] [address] Assigned Rheumatology Provider 11/09/23 Richie Rowell RPH [address] [place] [address] Pharmacist Pharmacist 04/08/24 Richie Rowell RPH [address] [place] [address] Assigned MTM Pharmacist 04/18/24 Zhane Crain MD [address] [place] [address] Physician Rheumatology 05/14/24 Saeed Berry MD [address] [place] [address] [phone] Assigned Surgical Provider 05/19/24 documented as of this encounter
--- OUTSIDE RECORDS SUMMARY | 2024-08-30 16:48 | XMS_ITS | Encounter Summary ---
Author Organization [place] Address [address] [place] [address] Care Team Providers Care Facing Machine Operator Name Role Phone Feliciano Uribe MD Primary Care Provider [phone] Christina Roe PA-C Unavailable Christina Roe PA-C Unavailable Richie Rowell [facility] Unavailable Richie Rowell [facility] Unavailable Zhane Crain MD Unavailable Saeed Berry MD Unavailable [phone] Encounter Details Date Type Department Care Team (Late st Contact Info) Description 05/21/2024 MyC Medical Advice [facility] Rheumatology [facility] [address] [facility] [address] [place] [address] Richie Rowell, [facility] [address] [place] [address] Social History Tobacco Use Types [...] on file Legal Sex Female 3:41 AM FINANCIAL AID ADVISOR Gender Identity Not on file Sexual Orientation Not on file documented as of this encounter Plan of Treatment Upcoming Encounters Date Type Department Care Team (Late st Contact Info) Description 10/07/2024 9:30 AM FINANCIAL AID ADVISOR Virtual Visit [facility] Rheumatology [facility] [address] [facility] [address] [place] [phone] Christina Roe PA-C [address] [place] [address] [facility] 9[address] [place] [address] 10/23/2024 8:00 AM FINANCIAL AID ADVISOR Lab [facility] [address] [facility] [address] [place] [phone] 10/30/2024 10:00 AM FINANCIAL AID ADVISOR Office Visit [facility] [address] [facility] [address] [place] [phone] Christina Roe PA-C [address] [place] [address] documented as of this encounter Visit Diagnoses Not on filedocumented in this encounter Care Teams Facing Machine Operator Relationship Specialty Start Date End Date Feliciano Uribe MD [facility] & [address] [address] PCP - General Family Medicine 06/01/23 Christina Roe PA-C [address] [place] [address] Physician Milk Powder Grinder Rheumatology 11/06/23 Christina Roe PA-C [address] [place] [address] Assigned Rheumatology Provider 11/09/23 Richie Rowell RPH [address] [place] [address] Pharmacist Pharmacist 04/08/24 Richie Rowell RPH [address] [place] [address] Assigned MTM Pharmacist 04/18/24 Zhane Crain MD [address] [place] [address] Physician Rheumatology 05/14/24 Saeed Berry MD [address] [place] [address] [phone] Assigned Surgical Provider 05/19/24 documented as of this encounter
--- OUTSIDE RECORDS SUMMARY | 2024-08-30 16:48 | XMS_ITS | Encounter Summary ---
Author Organization [place] Address [address] [place] [address]. [place] [address] Care Team Providers Care Pony Worker Name Role Phone Feliciano Uribe MD Primary Care Provider Christina Roe PA-C Unavailable Christina Roe PA-C Unavailable Richie Rowell [facility] Unavailable Richie Rowell [facility] Unavailable Zhane Crain MD Unavailable Saeed Berry MD Unavailable [phone] Encounter Details Date Type Department Care Team (Late st Contact Info) Description 03/27/2024 [facility] [address] [facility] [address] [place] [address] [facility] Social History Tobacco Use Types Packs/Day Years [...] on file Legal Sex Female 3:41 AM ELIGIBILITY SUPERVISOR Gender Identity Not on file Sexual Orientation Not on file documented as of this encounter Plan of Treatment Upcoming Encounters Date Type Department Care Team (Late st Contact Info) Description 10/07/2024 9:30 AM ELIGIBILITY SUPERVISOR Virtual Visit [facility] Rheumatology [facility] [address] [facility] [address] [place] [address] Christina Roe PA-C [address] [place] [address] [facility] 909 [place] [address] 10/23/2024 8:00 AM ELIGIBILITY SUPERVISOR Lab [facility] [address] [facility] 120 [place] [address] 10/30/2024 10:00 AM ELIGIBILITY SUPERVISOR Office Visit [facility] [address] [facility] 200 [place] [phone] Christina Roe PA-C [address] [place] [address] documented as of this encounter Visit Diagnoses Not on filedocumented in this encounter Care Teams Pony Worker Relationship Specialty Start Date End Date Feliciano Uribe MD [facility] & [address] [address] PCP - General Family Medicine 06/01/23 Christina Roe PA-C [address] [place] [address] Physician Ornamental Metalwork Designer Rheumatology 11/06/23 Christina Roe PA-C [address] [place] [address] Assigned Rheumatology Provider 11/09/23 Richie Rowell [facility] [address] [place] [address] [phone] Pharmacist Pharmacist 04/08/24 Richie Rowell [facility] [address] [place] [address] 113[address] Assigned MTM Pharmacist 04/18/24 Zhane Crain MD [address] [place] [address] [phone] Physician Rheumatology 05/14/24 Saeed Berry MD [address] [place] [address] [phone] Assigned Surgical Provider 05/19/24 documented as of this encounter
--- OUTSIDE RECORDS SUMMARY | 2024-08-30 16:48 | XMS_ITS | Encounter Summary ---
Author Organization [facility] Address [address] [place] [address] Care Team Providers Care Outside Installer Apprentice Name Role Phone Feliciano Uribe MD Primary Care Provider Christina Roe PA-C Unavailable [phone] Christina Roe PA-C Unavailable Richie Rowell [facility] Unavailable Richie Rowell [facility] Unavailable Zhane Crain MD Unavailable Saeed Berry MD Unavailable [phone] Encounter Details Date Type Department Care Team (Late st Contact Info) Description 05/02/2024 MyC Medical Advice [facility] [address] [place] [phone] Adalberto Boles Social History Tobacco Use [...] on file Legal Sex Female 3:41 AM MEDICAL RESEARCH ASSISTANT Gender Identity Not on file Sexual Orientation Not on file documented as of this encounter Plan of Treatment Upcoming Encounters Date Type Department Care Team (Late st Contact Info) Description 10/07/2024 9:30 AM MEDICAL RESEARCH ASSISTANT Virtual Visit [facility] [place]ology [place] [address] [facility] [address] [place] [phone] Christina Roe PA-C [address] [place] [address] Richie Rowell, [facility] [address] [place] [address] 10/23/2024 8:00 AM MEDICAL RESEARCH ASSISTANT Lab [facility] [address] [facility] 120 [place] [phone] 10/30/2024 10:00 AM MEDICAL RESEARCH ASSISTANT Office Visit [facility] [address] [place] [address] [address] [place] [phone] Christina Roe PA-C [address] [place] [address] documented as of this encounter Visit Diagnoses Not on filedocumented in this encounter Care Teams Outside Installer Apprentice Relationship Specialty Start Date End Date Feliciano Uribe MD [facility] [address] [place] [address] PCP - General Family Medicine 06/01/23 Christina Roe PA-C [address] [place] [address] Physician Attorney Recruiter Rheumatology 11/06/23 Christina Roe PA-C [address] [place] [address] Assigned Rheumatology Provider 11/09/23 Richie Rowell [facility] [address] [place] [address] Pharmacist Pharmacist 04/08/24 Richie Rowell RP [address] [place] [address] Assigned MTM Pharmacist 04/18/24 Zhane Crain MD [address] [place] [address] 970235 Physician Rheumatology 05/14/24 Saeed Berry MD [address] [place] [address] [phone] Assigned Surgical Provider 05/19/24 documented as of this encounter
--- OUTSIDE RECORDS SUMMARY | 2024-08-30 16:48 | XMS_ITS | Encounter Summary ---
Author Organization [facility] Address [address] [place] [address] Care Team Providers Care Varnish Finisher Name Role Phone Feliciano Uribe MD Primary Care Provider [phone] Christina Roe PA-C Unavailable Christina Roe PA-C Unavailable Richie Rowell [facility] Unavailable Richie Rowell [facility] Unavailable Zhane Crain MD Unavailable Saeed Berry MD Unavailable [phone] Encounter Details Date Type Department Care Team (Late st Contact Info) Description 04/14/2024 MyC Medical Advice [facility] [address] [place] [phone] Adalberto Boles Social History Tobacco Use [...] on file Legal Sex Female 3:41 AM VAUDEVILLE ACTOR Gender Identity Not on file Sexual Orientation Not on file documented as of this encounter Plan of Treatment Upcoming Encounters Date Type Department Care Team (Late st Contact Info) Description 10/07/2024 9:30 AM VAUDEVILLE ACTOR Virtual Visit [facility] [place]ology [place] [address] [facility] [address] [place] [phone] Chritsina Roe PA-C [address] [place] [address] Richie Rowell, [facility] [address] [place] [address] 10/23/2024 8:00 AM VAUDEVILLE ACTOR Lab [facility] [address] [facility] 120 [place] [phone] 10/30/2024 10:00 AM VAUDEVILLE ACTOR Office Visit [facility] [address] [place] [address] [address] [place] [phone] Christina Roe PA-C [address] [place] [address] documented as of this encounter Visit Diagnoses Not on filedocumented in this encounter Care Teams Varnish Finisher Relationship Specialty Start Date End Date Feliciano Uribe MD [facility] [address] [place] [address] PCP - General Family Medicine 06/01/23 Christina Roe PA-C [address] [place] [address] Physician Order Dispatcher Chief Rheumatology 11/06/23 Christina Roe PA-C [address] [place] [address] Assigned Rheumatology Provider 11/09/23 Richie Rowell [facility] [address] [place] [address] Pharmacist Pharmacist 04/08/24 Richie Rowell RP [address] [place] [address] Assigned MTM Pharmacist 04/18/24 Zhane Crain MD [address] [place] [address] [phone] Physician Rheumatology 05/14/24 Saeed Berry MD [address] [place] [address] [phone] Assigned Surgical Provider 05/19/24 documented as of this encounter
--- OUTSIDE RECORDS SUMMARY | 2024-08-30 16:48 | XMS_ITS | Encounter Summary ---
Author Organization [place] Address [address] [place] [address] Care Team Providers Care Lead Nurse Name Role Phone Feliciano Uribe MD Primary Care Provider Christina Roe PA-C Unavailable Christina Roe PA-C Unavailable Richie Rowell [facility] Unavailable Richie Rowell [facility] Unavailable Zhane Crain MD Unavailable Saeed Berry MD Unavailable [phone] Encounter Details Date Type Department Care Team (Late st Contact Info) Description 04/21/2024 MyC Medical Advice [facility] [address] [facility] [address] [place] [address] Richie Rowell, [facility] [address] [place], [place] [phone] Social History Tobacco Use Types Packs/Day Years [...] Legal Sex Female 3:41 AM PAINTER HELPER SIGN Gender Identity Not on file Sexual Orientation Not on file documented as of this encounter Plan of Treatment Upcoming Encounters Date Type Department Care Team (Late st Contact Info) Description 10/07/2024 9:30 AM PAINTER HELPER SIGN Virtual Visit [facility] [address] [facility] [address] [place] [phone] Christina Roe PA-C [address] [place] [address] [facility] 909 [place] [address] 10/23/2024 8:00 AM PAINTER HELPER SIGN Lab [facility] Laboratory [address] [facility] [address] [place] [phone] 10/30/2024 10:00 AM PAINTER HELPER SIGN Office Visit [facility] [address] [facility] [address] [place] [phone] Christina Roe PA-C [address] [place] [address] documented as of this encounter Visit Diagnoses Not on filedocumented in this encounter Care Teams Lead Nurse Relationship Specialty Start Date End Date Feliciano Uribe MD [facility] & [address] [address] PCP - General Family Medicine 06/01/23 Christina Roe PA-C [address] [place] [address] Physician Topographic Computator Rheumatology 11/06/23 Christina Roe PA-C [address] [place] [address] Assigned Rheumatology Provider 11/09/23 Richie Rowell RPH [address] [place] [address] Pharmacist Pharmacist 04/08/24 Richie Rowell RPH [address] [place] [address] Assigned MTM Pharmacist 04/18/24 Zhane Crain MD [address] [place] [address] Physician Rheumatology 05/14/24 Saeed Berry MD [address] [place] [address] [phone] Assigned Surgical Provider 05/19/24 documented as of this encounter
--- OUTSIDE RECORDS SUMMARY | 2024-08-30 16:48 | XMS_ITS | Encounter Summary ---
Author Organization [place] Address [address] [place] [address] Care Team Providers Care Pickup Driver Name Role Phone Feliciano Uribe MD Primary Care Provider Christina Roe PA-C Unavailable Christina Roe PA-C Unavailable Richie Rowell [facility] Unavailable Richie Rowell [facility] Unavailable Zhane Crain MD Unavailable Saeed Berry MD Unavailable [phone] Reason for Visit * Reason Onset Date Comments Appointment 10/23/2023 Encounter Details Date Type Department Care Team (Late st Contact Info) Description 10/23/2023 MyC Medical Advice [address] [place] [address] Christina Roe PA-C [address] [place] [address] Appointment Social History Tobacco Use Types Packs/Day Years Used Date Smoking Tobacco: Never Assessed Adolescent Education Answer Date Record ed Getting School Help Needed Not on file 05/31 Comments Unknown Sex and Gender Information Value Date Recorded Sex Assigned at Not on file Legal Sex Female 3:41 AM COMPOSING ROOM MACHINIST APPRENTICE Gender Identity Not on file Sexual Orientation Not on file documented as of this encounter Miscellaneous Notes * Telephone Encounter - Shayy Michelle - 11/20/2023 11:57 AM CDT LVM * Telephone Encounter - Brenda Hartley - 11/05/2023 12:04 PM CDT Lvm x2 * Telephone Encounter - Brenda Hartley - 10/23/2023 3:24 PM CST lvm OSING ROOM MACHINIST APPRENTICE * Telephone Encounter - Smiley Perez - 10/23/2023 2:23 PM CST [facility] Phone Message May a detailed message be left on voicemail: yes Reason for Call: Other: Patient called to schedule 1 month follow up appt per previous communication w/ Christina financial writer tried to schedule but did not see any available appts for Christina until 12/26. Please advise. Action Taken: Other: RHEUM Travel Screening: Not Applicable OSING ROOM MACHINIST APPRENTICE * Telephone Encounter - Jonelle Aguirre, RN - 10/23/2023 8:45 AM CST To provider to review and advise, I do not see any new medication that pt is referring to. Jonelle Aguirre [facility] RN OSING ROOM MACHINIST APPRENTICE documented in this encounter Plan of Treatment Upcoming Encounters Date Type Department Care Team (Late st Contact Info) Description 10/07/2024 9:30 AM COMPOSING ROOM MACHINIST APPRENTICE Virtual Visit [facility] Rheumatology [facility] [place] [facility] [address] [facility] [address] [place] [address] Christina Roe PA-C [address] [place] [address] Richie Rowell RPH [address] [place] [address] 10/23/2024 8:00 AM COMPOSING ROOM MACHINIST APPRENTICE Lab [facility] Laboratory [address] [place] [address] [address] [place] [phone] 10/30/2024 10:00 AM COMPOSING ROOM MACHINIST APPRENTICE Office Visit [facility] [address] [place] [address] 200 [place] [address] Christina Roe PA-C [address] [place] [address] documented as of this encounter Visit Diagnoses Diagnosis Polyarthralgia- Primary Pain in joint, multiple sites Myalgia Mylagia and myositis, unspecified documented in this encounter Care Teams Pickup Driver Relationship Specialty Start Date End Date Feliciano Uribe MD [address] [address] PCP - General Family Medicine 06/01/23 Christina Roe PA-C [address] [place] [address] Physician Computer Equipment Installer Rheumatology 11/06/23 Christina Roe PA-C [address] [place] [address] Assigned Rheumatology Provider 11/09/23 Richie Rowell RPH [address] [place] [address] Pharmacist Pharmacist 04/08/24 Richie Rowell [facility] [address] [place] [address] Assigned MTM Pharmacist 04/18/24 Zhane Crain MD [address] [place] [address] Physician Rheumatology 05/14/24 Saeed Berry MD [address] [place] [address] Assigned Surgical Provider 05/19/24 documented as of this encounter
--- OUTSIDE RECORDS SUMMARY | 2024-08-30 16:48 | XMS_ITS | Encounter Summary ---
Author Organization [place] Address [address] [place] [address]. [place] [address] Care Team Providers Care Grating Machine Operator Name Role Phone Felicaino Uribe MD Primary Care Provider [phone] Christina Roe PA-C Unavailable Christina Roe PA-C Unavailable [phone] Richie Rowell [facility] Unavailable Richie Rowell [facility] Unavailable Zhane Crain MD Unavailable Saeed Berry MD Unavailable [phone] Encounter Details Date Type Department Care Team (Late st Contact Info) Description 03/23/2024 Ophth Exam [facility] Services - Eye Care Service Line [address] [place] [address] Lamont Canales MD [address] [place] [address] [id number] Social History Tobacco Use Types Packs/Day Years [...] on file Legal Sex Female 3:41 AM CYBER SOFTWARE ENGINEER Gender Identity Not on file Sexual Orientation Not on file documented as of this encounter Plan of Treatment Upcoming Encounters Date Type Department Care Team (Late st Contact Info) Description 10/07/2024 9:30 AM CYBER SOFTWARE ENGINEER Virtual Visit [facility] Rheumatology [facility] [address] [facility] [address] [place] [phone] Christina Roe PA-C [address] [place] [address] [facility] [address] [place] [address] 10/23/2024 8:00 AM CYBER SOFTWARE ENGINEER Lab [facility] [address] [facility] [address] [place] [address] 10/30/2024 10:00 AM CYBER SOFTWARE ENGINEER Office Visit [facility] [address] [facility] [address] [place] [address] Christina Roe PA-C [address] [place] [address] documented as of this encounter Visit Diagnoses Not on filedocumented in this encounter Care Teams Grating Machine Operator Relationship Specialty Start Date End Date Feliciano Uribe MD [address] [address] PCP - General Family Medicine 06/01/23 Christina Roe PA-C [address] [place] [address] Physician Meteorological Engineer Rheumatology 11/06/23 Christina Roe PA-C [address] [place] [address] Assigned Rheumatology Provider 11/09/23 Richie Rowell RPH [address] [place] [address] Pharmacist Pharmacist 04/08/24 Richie Rowell RPH [address] [place] [address] Assigned MTM Pharmacist 04/18/24 Zhane Crain MD [address] [place] [address] Physician Rheumatology 05/14/24 Saeed Berry MD [address] [place] [address] Assigned Surgical Provider 05/19/24 documented as of this encounter
--- OUTSIDE RECORDS SUMMARY | 2024-08-30 16:48 | XMS_ITS | Encounter Summary ---
Author Organization [employer] Address [address] [place] [address] Care Team Providers Care Community Relations Representative Name Role Phone Feliciano Uribe MD Primary Care Provider Christina Roe PA-C Unavailable [phone] Christina Roe PA-C Unavailable Richie Rowell [facility] Unavailable Richie Rowell [facility] Unavailable Zhane Crain MD Unavailable Saeed Berry MD Unavailable [phone] Encounter Details Date Type Department Care Team (Late st Contact Info) Description 06/04/2024 [facility] Medical Advice [address] [place] [address] Christina Roe PA-C [address] [place] [address] Temporal arteritis (H); PMR (polymyalgia rheumatica) (H) [...] on file Legal Sex Female 3:41 AM DECKHAND OYSTER DREDGE Gender Identity Not on file Sexual Orientation Not on file documented as of this encounter Plan of Treatment Upcoming Encounters Date Type Department Care Team (Late st Contact Info) Description 10/07/2024 9:30 AM DECKHAND OYSTER DREDGE Virtual Visit [facility] Rheumatology [facility] [address] [facility] [address] [place] [phone] Christina Roe PA-C [address] [place] [address] [facility] 909 [place] [address] 10/23/2024 8:00 AM DECKHAND OYSTER DREDGE Lab [facility] [address] [place] [address] [address] [place] [phone] 10/30/2024 10:00 AM DECKHAND OYSTER DREDGE Office [facility] [address] [place] [address] [address] [place] [phone] Christina Roe PA-C [address] [place] [address] documented as of this encounter Visit Diagnoses Diagnosis Temporal arteritis (H) Giant cell arteritis PMR (polymyalgia rheumatica) (H) Polymyalgia rheumatica documented in this encounter Care Teams Community Relations Representative Relationship Specialty Start Date End Date Feliciano Uribe MD [address] [address] PCP - General Family Medicine 06/01/23 Crhistina Roe PA-C [address] [place] [address] Physician Cloth Brushing And Sueding Supervisor Rheumatology 11/06/23 Christina Roe PA-C [address] [place] [address] Assigned Rheumatology Provider 11/09/23 Richie Rowell RPH [address] [place] [address] Pharmacist Pharmacist 04/08/24 Richie Rowell RPH [address] [place] [address] Assigned MTM Pharmacist 04/18/24 Zhane Crain MD [address] [place] [address] Physician Rheumatology 05/14/24 Saeed Berry MD [address] [place] [address] [phone] Assigned Surgical Provider 05/19/24 documented as of this encounter
--- OUTSIDE RECORDS SUMMARY | 2024-08-30 16:48 | XMS_ITS | Encounter Summary ---
Author Organization [facility] Address [address] [place] [address] Care Team Providers Care Manager Oracle Database Name Role Phone Feliciano Uribe MD Primary Care Provider Christina Roe PA-C Unavailable Christina Roe PA-C Unavailable Richie Rowell [facility] Unavailable Richie Rowell [facility] Unavailable Zhane Crain MD Unavailable Saeed Berry MD Unavailable [phone] Encounter Details Date Type Department Care Team (Late st Contact Info) Description 02/15/2024 MyC Medical Advice [address] [place] [address] Christina Roe PA-C [address] [place] [address] Polymyalgia rheumatica (H) (Primary Dx) Social History [...] on file Legal Sex Female 3:41 AM ASPHALT MIXING 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 Gender Identity Not on file Sexual Orientation Not on file documented as of this encounter Plan of Treatment Upcoming Encounters Date Type Department Care Team (Late st Contact Info) Description 10/07/2024 9:30 AM ASPHALT MIXING 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 Virtual Visit [facility] Rheumatology [facility] [address] [facility] [address] [place] [phone] Christina Roe PA-C [address] [place] [address] [facility] 909 [place] [address] 10/23/2024 8:00 AM ASPHALT MIXING 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 Lab [facility] [address] [facility] [address] [place] [phone] 10/30/2024 10:00 AM ASPHALT MIXING 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 Office [facility] [address] [facility] [address] [place] [phone] Christina Roe PA-C [address] [place] [address] documented as of this encounter Visit Diagnoses Diagnosis Polymyalgia rheumatica (H)- Primary Polymyalgia rheumatica documented in this encounter Care Teams Manager Oracle Database Relationship Specialty Start Date End Date Feliciano Uribe MD [facility] [address] [place] [address] PCP - General Family Medicine 06/01/23 Christina Roe PA-C [address] [place] [address] Physician Laminate Floor Installer Rheumatology 11/06/23 Christina Roe PA-C [address] [place] [address] Assigned Rheumatology Provider 11/09/23 Richie Rowell RPH [address] [place] [address] [phone] Pharmacist Pharmacist 04/08/24 Richie Rowell RP [address] [place] [address] [phone] Assigned MTM Pharmacist 04/18/24 Zhane Crain MD [address] [place] [address] [phone] Physician Rheumatology 05/14/24 Saeed Berry MD [address] [place] [address] [phone] Assigned Surgical Provider 05/19/24 documented as of this encounter
--- OUTSIDE RECORDS SUMMARY | 2024-08-30 16:48 | XMS_ITS | Encounter Summary ---
Author Organization [place] Address [address] [place] [address] Care Team Providers Care Lead Printer Name Role Phone Feliciano Uribe MD Primary Care Provider Christina Roe PA-C Unavailable Christina Roe PA-C Unavailable [phone] Richie Rowell [facility] Unavailable Richie Rowell [facility] Unavailable Zhane Crain MD Unavailable Saeed Berry MD Unavailable [phone] Encounter Details Date Type Department Care Team (Late st Contact Info) Description 04/09/2024 MyC Medical Advice [facility] [address] [facility] [address] [place] [address] Richie Rowell, [facility] [address] [place], [place] [phone] Social History Tobacco Use Types Packs/Day Years [...] on file Legal Sex Female 3:41 AM SPRAY UNIT FEEDER Gender Identity Not on file Sexual Orientation Not on file documented as of this encounter Plan of Treatment Upcoming Encounters Date Type Department Care Team (Late st Contact Info) Description 10/07/2024 9:30 AM SPRAY UNIT FEEDER Virtual Visit [facility] Rheumatology [facility] [address] [facility] [address] [place] [phone] Christina Roe PA-C [address] [place] [address] [facility] 9[address] [place] [address] 10/23/2024 8:00 AM SPRAY UNIT FEEDER Lab [facility] [address] [facility] [address] [place] [phone] 10/30/2024 10:00 AM SPRAY UNIT FEEDER Office Visit [facility] [address] [facility] [address] [place] [phone] Christina Roe PA-C [address] [place] [address] documented as of this encounter Visit Diagnoses Not on filedocumented in this encounter Care Teams Lead Printer Relationship Specialty Start Date End Date Feliciano Uribe MD [facility] [address] [address] PCP - General Family Medicine 06/01/23 Christina Roe PA-C [address] [place] [address] Physician Grief Counsellor Rheumatology 11/06/23 Christina Roe PA-C [address] [place] [address] Assigned Rheumatology Provider 11/09/23 Richie Rowell RPH [address] [place] [address] Pharmacist Pharmacist 04/08/24 Richie Rowell RPH [address] [place] [address] Assigned MTM Pharmacist 04/18/24 Zhane Crain MD [address] [place] [address] Physician Rheumatology 05/14/24 Saeed Berry MD [address] [place] [address] 264115 Assigned Surgical Provider 05/19/24 documented as of this encounter
--- OUTSIDE RECORDS SUMMARY | 2024-08-30 16:48 | XMS_ITS | Encounter Summary ---
Author Organization [place] Address [address] [place] [address]. [place] [address] Care Team Providers Care Fac Engineer Name Role Phone Feliciano Uribe MD Primary Care Provider Christina Roe PA-C Unavailable Christina Roe PA-C Unavailable Richie Rowell [facility] Unavailable Richie Rowell [facility] Unavailable Zhane Crain MD Unavailable Saeed Berry MD Unavailable [phone] Encounter Details Date Type Department Care Team (Late st Contact Info) Description 03/24/2024 Ophth Exam [facility] Services - Eye Care Service Line [address] [place] [address] Lamont Canales MD [address] [place] [address] [phone] Social History Tobacco Use Types Packs/Day Years [...] on file Legal Sex Female 3:41 AM DIRECTOR BIOLOGICS Gender Identity Not on file Sexual Orientation Not on file documented as of this encounter Plan of Treatment Upcoming Encounters Date Type Department Care Team (Late st Contact Info) Description 10/07/2024 9:30 AM DIRECTOR BIOLOGICS Virtual [facility] Rheumatology [facility] [address] [facility] [address] [place] [phone] Christina Roe PA-C [address] [place] [address] [facility] 9[address] [place] [address] 10/23/2024 8:00 AM DIRECTOR BIOLOGICS Lab [facility] [address] [facility] [address] [place] [address] 10/30/2024 10:00 AM DIRECTOR BIOLOGICS Office Visit [facility] [address] [facility] [address] [place] [address] Christina Roe PA-C [address] [place] [address] documented as of this encounter Visit Diagnoses Not on filedocumented in this encounter Care Teams Fac Engineer Relationship Specialty Start Date End Date Feliciano Uribe MD [address] [address] PCP - General Family Medicine 06/01/23 Christina Roe PA-C [address] [place] [address] Physician Job Molder Rheumatology 11/06/23 Christina Roe PA-C [address] [place] [address] Assigned Rheumatology Provider 11/09/23 Richie Rowell RPH [address] [place] [address] Pharmacist Pharmacist 04/08/24 Richie Rowell RPH [address] [place] [address] Assigned MTM Pharmacist 04/18/24 Zhane Crain MD [address] [place] [address] Physician Rheumatology 05/14/24 Saeed Berry MD [address] [place] [address] Assigned Surgical Provider 05/19/24 documented as of this encounter
--- OUTSIDE RECORDS SUMMARY | 2024-08-30 16:48 | XMS_ITS | Encounter Summary ---
Author Organization [place] Address [address] [place] [address] Care Team Providers Care Renal Medicine Physician Name Role Phone Feliciano Uribe MD Primary Care Provider Christina Roe PA-C Unavailable Christina Roe PA-C Unavailable [phone] Richie Rowell [facility] Unavailable Richie Rowell [facility] Unavailable Zhane Crain MD Unavailable Saeed Berry MD Unavailable [phone] Encounter Details Date Type Department Care Team (Late st Contact Info) Description 05/09/2024 MyC Medical Advice [facility] [address] [place] [address] Adalberto Boles Social History Tobacco Use [...] on file Legal Sex Female 3:41 AM SITE INTERPRETER Gender Identity Not on file Sexual Orientation Not on file documented as of this encounter Plan of Treatment Upcoming Encounters Date Type Department Care Team (Late st Contact Info) Description 10/07/2024 9:30 AM SITE INTERPRETER Virtual Visit [facility] [place] [address] [facility] [address] [place] [phone] Christina Roe PA-C [address] [place] [address] Richie Rowell, [facility] 9[address] [place] [address] 10/23/2024 8:00 AM SITE INTERPRETER Lab [facility] [address] [facility] [address] [place] [address] 10/30/2024 10:00 AM SITE INTERPRETER Office [facility] [address] [place] [address] [address] [place] [address] Christina Roe PA-C [address] [place] [address] documented as of this encounter Visit Diagnoses Not on filedocumented in this encounter Care Teams Renal Medicine Physician Relationship Specialty Start Date End Date Feliciano Uribe MD [facility] [address] [place] [address] PCP - General Family Medicine 06/01/23 Christina Roe PA-C [address] [place] [address] Physician Postal Support Employee Rheumatology 11/06/23 Christina Roe PA-C [address] [place] [address] Assigned Rheumatology Provider 11/09/23 Richie Rowell [facility] 9[address] [place] [address] Pharmacist Pharmacist 04/08/24 Richie Rowell RP [address] [place] [address] Assigned MTM Pharmacist 04/18/24 Zhane Crain MD [address] [place] [address] [phone] Physician Rheumatology 05/14/24 Saede Berry MD [address] [place] [address] [phone] Assigned Surgical Provider 05/19/24 documented as of this encounter
--- OUTSIDE RECORDS SUMMARY | 2024-08-30 16:48 | XMS_ITS ---
Author Organization [facility] Address [address] [place] [address] Care Team Providers Care Project Hire Name Role Phone Unavailable Unavailable Unavailable Surgery Details Not on file Complications Check Surgery Details section. Procedure Estimated Blood Loss Check Surgery Details section. Procedure Findings Check Surgery Details section. Procedure Specimens Taken Check Surgery Details section.
--- OUTSIDE RECORDS SUMMARY | 2024-08-30 16:48 | XMS_ITS | Encounter Summary ---
Author Organization [place] Address [address] [place] [address] Care Team Providers Care Consultant Intern Name Role Phone Feliciano Uribe MD Primary Care Provider Christina Roe PA-C Unavailable [phone] Christina Roe PA-C Unavailable Richie Rowell [facility] Unavailable Richie Rowell [facility] Unavailable Zhane Crain MD Unavailable Saeed Berry MD Unavailable [phone] Encounter Details Date Type Department Care Team (Late st Contact Info) Description 05/06/2024 MyC Medical Advice [address] [place] [address] Christina Roe PA-C [address] [place] [address] Social History Tobacco Use Types Packs/Day Years [...] on file Legal Sex Female 3:41 AM RESOURCE TEACHER Gender Identity Not on file Sexual Orientation Not on file documented as of this encounter Plan of Treatment Upcoming Encounters Date Type Department Care Team (Late st Contact Info) Description 10/07/2024 9:30 AM RESOURCE TEACHER Virtual Visit [facility] Rheumatology [facility] [address] [facility] [address] [place] [phone] Christina Roe PA-C [address] [place] [address] Richie Rowell, [facility] [address] [place] [address] 10/23/2024 8:00 AM RESOURCE TEACHER Lab [facility] [address] [facility] [address] [place] [phone] 10/30/2024 10:00 AM RESOURCE TEACHER Office Visit [facility] [address] [facility] [address] [place] [address] Christina Roe PA-C [address] [place] [address] documented as of this encounter Visit Diagnoses Not on filedocumented in this encounter Care Teams Consultant Intern Relationship Specialty Start Date End Date Feliciano Uribe MD [facility] [address] [place] [address] PCP - General Family Medicine 06/01/23 Christina Roe PA-C [address] [place] [address] Physician Sanitary Plumber Rheumatology 11/06/23 Christina Roe PA-C [address] [place] [address] Assigned Rheumatology Provider 11/09/23 Richie Rowell RPH [address] [place] [address] Pharmacist Pharmacist 04/08/24 Richie Rowell RPH [address] [place] [address] Assigned MTM Pharmacist 04/18/24 Zhane Crain MD [address] [place] [address] Physician Rheumatology 05/14/24 Saeed Berry MD [address] [place] [address] [phone] Assigned Surgical Provider 05/19/24 documented as of this encounter
--- OUTSIDE RECORDS SUMMARY | 2024-08-30 16:48 | XMS_ITS | Clinical Summary ---
Author Organization [facility] Address [address] [place] [address] Care Team Providers Care Exchange Trouble Shooter Name Role Phone Feliciano Uribe MD Primary Care Provider [phone] Source Comments You are receiving this document as you are listed as the primary care provider,follow-up provider, or the patient has been referred to you for consultation.This is in compliance with the Medicare and[facility] EHR Incentive Program,which states Providers who transition their patient to another setting of careor provider of care or refers their patient to another provider of care shouldprovide summary care record for each transition of care or referral. [facility] Allergies No known active allergies Medications Medication [...] a day. 03/27/2019 Active Cholecalciferol (VITAMIN D3) 70370 units TABS 03/27/2019 Active levothyroxine (SYNTHROID) 137 [...] every week. Take 30 minutes before first lelo-phzjg-jzykhahti n. Avoid lying down for 30 minutes. [...] age to complete this topic Care Teams Exchange Trouble Shooter Relationship Specialty Start Date End Date Feliciano Uribe MD [address] [place] [address] PCP - General 02/17/19
--- OUTSIDE RECORDS SUMMARY | 2024-08-30 16:48 | XMS_ITS | Clinical Summary ---
Author Organization [facility] Address [address] [place] [address] Care Team Providers Care Fish Icer Name Role Phone Unavailable Primary Care Provider Unavailabl e Source Comments Patient records contain information from all sites at [facility]. For routine questions regarding patient records, call [phone] during business hours, M-F 8:00 AM - 5:00 PM Central Time. Record requests for emergency care only can be directed to [phone] at any time.[facility] Allergies [...] week 10/10/2022 How often do you attend [facility] or anabaptist services? More than 4 times per year 10/10/2022 Do you belong to any clubs o r organizations such as anabaptism groups, unions, fraternal or athletic groups, or [...] and heating? Not hard at all 10/10/2022 [facility] Occupat ional [facility] - Occupational Stress [...] Sex Assigned at Female 10/10/2022 4:07 PM DISH NETWORK INSTALLER Legal Sex Female 6:05 AM DISH NETWORK INSTALLER Gender Identity Female 07/16/2018 12:55 PM DISH NETWORK INSTALLER Sexual Orientation Straight 07/16/2018 12 :55 PM DISH NETWORK INSTALLER Last Filed Vital Signs Vital Sign Reading Time Taken Comments Blood Pressure 163/73 10/31/2022 12:17 PM DISH NETWORK INSTALLER Pulse 75 10/31/2022 12:17 PM DISH NETWORK INSTALLER Temperature 36.5 C (97.7 F) 10/31/2022 12:27 PM DISH NETWORK INSTALLER Respiratory Rate 20 10/31/2022 12:1 7 PM DISH NETWORK INSTALLER Oxygen Saturation 96% 10/31/2022 12: 17 PM DISH NETWORK INSTALLER Inhaled Oxygen Concentration - - Weight 55.2 kg (121 lb 11.1 oz) 11/01/2022 9:18 AM DISH NETWORK INSTALLER Height 152 cm (4' 11.84) 11/01/2022 9:18 AM DISH NETWORK INSTALLER Body Mass Index 23.89 11/01/2022 9:18 AM DISH NETWORK INSTALLER Plan of Treatment Health Maintenance Due Date [...] this topic Medical Devices Implanted Type Area Deckhand Tuna Boat Device Identifier Shelf Expiration Date Model / Serial / Lot Knee Implant- 022 Implanted:01/2022 (Quantity not on file) Knee Implant Right: Knee Ocular Lens Ocular Lens Bilatera l: Eye Procedures Procedure Name Priority Date/Time Associated Diagnosis Comments COMPREHENSIVE METABOLIC PANEL, S/P Routine 10/17/2022 10:01 AM DISH NETWORK INSTALLER 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, S Routine 06/23/2019 10:25 AM CDT Overweight Body Mass Index 25-29.9 Adult Hypertension Essential Primary Hyperlipidemia Family History Coronary Artery Disease Elevated Liver Enzyme Abnormal, Aspartate Transaminase, Serum Glutamic-Oxaloacetic Transaminase, Alanine Transaminase Hypothyroidism Primary from Last 3 Months or Most Recently Relevant to Health Maintenance Results * Comprehensive Metabolic Panel (10/17/2022 10:01 AM DISH NETWORK INSTALLER) Potassium, S 4.5 3.6 - 5.2 mmol/L 10/17/2022 11:02 AM DISH NETWORK INSTALLER DTL Sodium, S 141 135 - 145 mmol/L 10/17/2022 11:02 AM DISH NETWORK INSTALLER DTL Chloride, S 106 98 - 107 mmol/L 10/17/2022 11:02 AM DISH NETWORK INSTALLER DTL Bicarbonate, S 26 22 - 29 mmol/L 10/17/2022 11:02 AM DISH NETWORK INSTALLER DTL Anion Gap 9 7 - 15 10/17/2022 11:02 AM DISH NETWORK INSTALLER DTL BUN (Blood Urea Nitrogen), S 12 6 - 21 mg/dL 10/17/2022 11:02 AM DISH NETWORK INSTALLER DTL Creatinine 0.59 0.59 - 1.04 mg/dL 10/17/2022 11:02 AM DISH NETWORK INSTALLER DTL Estimated GFR (eGFR) >90 >=60 mL/min/BS A 10/17/2022 11:02 AM DISH NETWORK INSTALLER DTL Comment: Estimated GFR calculated using the 2020 CKD_EPI creatinine equation. Calcium, Total, S 9.7 8.8 - 10.2 mg/dL 10/17/2022 11:02 AM DISH NETWORK INSTALLER DTL Glucose, S 100 70 - 140 mg/dL 10/17/2022 11:02 AM DISH NETWORK INSTALLER DTL Protein, Total, S 6.8 6.3 - 7.9 g/dL 10/17/2022 11:02 AM DISH NETWORK INSTALLER DTL Albumin, S 4.5 3.5 - 5.0 g/dL 10/17/2022 11:02 AM DISH NETWORK INSTALLER DTL Aspartate Aminotransferase (AST), S 23 8 - 43 U/L 10/17/2022 11:02 AM DISH NETWORK INSTALLER DTL Alkaline Phosphatase, S 83 35 - 104 U/L 10/17/2022 11:02 AM DISH NETWORK INSTALLER DTL Alanine Aminotransferase (ALT), S 23 7 - 45 U/L 10/17/2022 11:02 AM DISH NETWORK INSTALLER DTL Bilirubin, Total, S 0.3 <=1.2 mg/dL 10/17/2022 11:02 AM DISH NETWORK INSTALLER DTL Blood (Blood, Venous) 10/17/2022 10:01 AM DISH NETWORK INSTALLER 10/17/2022 10:38 AM DISH NETWORK INSTALLER us Merlyn Cobos M.D. LAB BLOOD ADD-O N Final Result [facility] [address] [place] [address], [facility] [address] [place] [address] * (ABNORMAL) Thyroid Function [place] (06/23/2019 10:25 AM CDT) TSH, Sensitive 6.0(H) 0.3 - 4.2 mIU/L 06/24/2019 8:43 AM CDT DTL Blood (Blood, Venous) 06/23/2019 10:25 AM CDT 06/24/2019 7:34 AM CDT Narrative Resulting Agency Comment Mailed In Specimen Sony Rodriguez APRN, C.N.P., D.N.P. LAB BLOOD A DD-ON Final Result [facility] [address] [place] [address], [facility] [address] [place] [address] from Last 3 Months or Most Recently Relevant to Health Maintenance Insurance MEDICARE [facility]
--- OUTSIDE RECORDS SUMMARY | 2024-08-30 16:48 | XMS_ITS | Encounter Summary ---
Author Organization [facility] Address [address] [place] [address] Care Team Providers Care Clinical Data Programmer Name Role Phone Feliciano Uribe MD Primary Care Provider Christina Roe PA-C Unavailable [phone] Christina Roe PA-C Unavailable Richie Rowell [facility] Unavailable Richie Rowell [facility] Unavailable Zhane Crain MD Unavailable Saeed Berry MD Unavailable [phone] Reason for Visit * Reason Onset Date Comments Prior Auth - Medication 08/11/2024 Actemra FPAP renewal Encounter Details Date Type Department Care Team ([facility] Contact Info) Description 08/11/[address] [place] [address] Zhane Crain MD [address] [place] [address] Prior Auth - Medication (Actemra FPAP [...] on file Legal Sex Female 3:41 AM PAD HAND Gender Identity Not on file Sexual Orientation Not on file documented as of this encounter Miscellaneous Notes * Telephone Encounter - Adalberto Boles - 08/28/2024 2:40 PM CST Sent a test claim, coverage is good HAND * Telephone Encounter - Adalberto Boles - 08/19/2024 12:03 PM CST ALKA APPROVED Medication: ACTEMRA 162 MG/0.9ML SC SOSY Amount: $ Foundation Name: [facility] Effective Date: 08/27/2024 Foundation Expiration Date: 08/26/2025 Additional Information: must fill at [facility] Patient Notified: yes HAND * Telephone Encounter - Adalberto Boles - 08/11/2024 4:06 PM CST ALKA INITIATED Medication: ACTEMRA 162 MG/0.9ML SC SOSY [facility] Name: [facility] Date submitted: 08/11/2024 4:06 PM Pending renewal HAND documented in this encounter Plan of Treatment Upcoming Encounters Date Type Department Care Team (Late st Contact Info) Description 10/07/2024 9:30 AM PAD HAND Virtual Visit [facility] Rheumatology [facility] [address] [facility] [address] [place] [address] Christina Roe PA-C [address] [place] [address] Richie Rowell, [facility] [address] [place] [address] 10/23/2024 8:00 AM PAD HAND Lab [facility] [address] [facility] [address] [place] [phone] 10/30/2024 10:00 AM PAD HAND Office Visit [facility] [address] [place] [address] [address] [place] [phone] Christina Roe PA-C [address] [place] [address] documented as of this encounter Visit Diagnoses Not on filedocumented in this encounter Care Teams Clinical Data Programmer Relationship Specialty Start Date End Date Feliciano Uribe MD [address] [address] PCP - General Family Medicine 06/01/23 Christina Roe PA-C [address] [place] [address] Physician Hydroelectric Production Technician Rheumatology 11/06/23 Christina Roe PA-C [address] [place] [address] Assigned Rheumatology Provider 11/09/23 Richie Rowell RPH [address] [place] [address] Pharmacist Pharmacist 04/08/24 Richie Rowell RPH [address] [place] [address] Assigned MTM Pharmacist 04/18/24 Zhane Crain MD [address] [place] [address] Physician Rheumatology 05/14/24 Saeed Berry MD [address] [facility] [address] [place], [place] [address] Assigned Surgical Provider 05/19/24 documented as of this encounter
--- OUTSIDE RECORDS SUMMARY | 2024-08-30 16:48 | XMS_ITS | Encounter Summary ---
Author Organization [facility] Address [address] [place] [address] Care Team Providers Care Care Management Assistant Name Role Phone Feliciano Uribe MD Primary Care Provider Christina Roe PA-C Unavailable Christina Roe PA-C Unavailable Richie Rowell [facility] Unavailable Richie Rowell [facility] Unavailable Zhane Crain MD Unavailable Saeed Berry MD Unavailable [phone] Encounter Details Date Type Department Care Team (Late st Contact Info) Description 01/21/2024 MyC Medical Advice [address] [place] [address] Christina Roe PA-C [address] [place] [address] Social History Tobacco Use Types Packs/Day Years [...] on file Legal Sex Female 3:41 AM GRIEVANCE COORDINATOR Gender Identity Not on file Sexual Orientation Not on file documented as of this encounter Plan of Treatment Upcoming Encounters Date Type Department Care Team (Late st Contact Info) Description 10/07/2024 9:30 AM GRIEVANCE COORDINATOR Virtual Visit [facility] Rheumatology [facility] [address] [facility] [address] [place] [phone] Christina Roe PA-C [address] [place] [address] Richie Rowell, [facility] [address] [place] [address] 10/23/2024 8:00 AM GRIEVANCE COORDINATOR Lab [facility] [address] [facility] [address] [place] [phone] 10/30/2024 10:00 AM GRIEVANCE COORDINATOR Office Visit [facility] [address] [facility] [address] [place] [phone] Christina Roe PA-C [address] [place] [address] documented as of this encounter Visit Diagnoses Not on filedocumented in this encounter Care Teams Care Management Assistant Relationship Specialty Start Date End Date Feliciano Uribe MD [facility] - [address] [address] PCP - General Family Medicine 06/01/23 Christina Roe PA-C [address] [place] [address] Physician Forensic Economist Rheumatology 11/06/23 Christina Roe PA-C [address] [place] [address] Assigned Rheumatology Provider 11/09/23 Richie Rowell RPH [address] [place] [address] Pharmacist Pharmacist 04/08/24 Richie Rowell RP [address] [place] [address] Assigned MTM Pharmacist 04/18/24 Zhane Crain MD [address] [place] [address] Physician Rheumatology 05/14/24 Saeed Berry MD [address] [place] [address] Assigned Surgical Provider 05/19/24 documented as of this encounter
--- OUTSIDE RECORDS SUMMARY | 2024-08-30 16:48 | XMS_ITS | Encounter Summary ---
Author Organization [facility] Address [address] [place] [address]. [place] [address] Care Team Providers Care Drywall Hanger Helper Name Role Phone Feliciano Uribe MD Primary Care Provider Christina Roe PA-C Unavailable Christina Roe PA-C Unavailable Richie Rowell [facility] Unavailable Richie Rowell [facility] Unavailable Zhane Crain MD Unavailable Saeed Berry MD Unavailable [phone] Encounter Details Date Type Department Care Team (Late st Contact Info) Description 03/22/2024 Ophth Exam [facility] Services - Eye Care Service Line [address] [place] [address] Luis Alberto Anderson MD [address] [place] [address] Social History Tobacco Use Types Packs/Day [...] on file Legal Sex Female 3:41 AM SPECIAL NEEDS NANNY Gender Identity Not on file Sexual Orientation Not on file documented as of this encounter Plan of Treatment Upcoming Encounters Date Type Department Care Team (Late st Contact Info) Description 10/07/2024 9:30 AM SPECIAL NEEDS NANNY Virtual Visit [facility] Rheumatology [facility] [address] [facility] [address] [place] [phone] Christina Roe PA-C [address] [place] [address] [facility] [address] [place] [address] 10/23/2024 8:00 AM SPECIAL NEEDS NANNY Lab [facility] [address] [facility] [address] [place] [phone] 10/30/2024 10:00 AM SPECIAL NEEDS NANNY Office Visit [facility] [address] [facility] [address] [place] [phone] Christina Roe PA-C [address] [place] [address] documented as of this encounter Visit Diagnoses Not on filedocumented in this encounter Care Teams Drywall Hanger Helper Relationship Specialty Start Date End Date Feliciano Uribe MD [address] [address] PCP - General Family Medicine 06/01/23 Christina Roe PA-C [address] [place] [address] Physician Wallpaper Cleaner Rheumatology 11/06/23 Christina Roe PA-C [address] [place] [address] Assigned Rheumatology Provider 11/09/23 Richie Rowell RPH [address] [place] [address] Pharmacist Pharmacist 04/08/24 Richie Rowell RPH [address] [place] [address] Assigned MTM Pharmacist 04/18/24 Zhane Crain MD [address] [place] [address] Physician Rheumatology 05/14/24 Saeed Berry MD [address] [place] [address] Assigned Surgical Provider 05/19/24 documented as of this encounter
--- OUTSIDE RECORDS SUMMARY | 2024-08-30 16:48 | XMS_ITS | Encounter Summary ---
Author Organization [facility] Address [address] [place] [address] Care Team Providers Care Roll Handler Name Role Phone Feliciano Uribe MD Primary Care Provider [phone] Christina Roe PA-C Unavailable Christina Roe PA-C Unavailable [phone] Richie Rowell [facility] Unavailable Richie Rowell [facility] Unavailable Zhane Crain MD Unavailable Saeed Berry MD Unavailable [phone] Encounter Details Date Type Department Care Team (Late st Contact Info) Description 04/23/2024 MyC Medical Advice [address] [place] [address] Zhane Crain MD [address] [place] [address] Social History Tobacco Use Types Packs/Day [...] file Legal Sex Female 3:41 AM DIRECTOR OF REVENUE Gender Identity Not on file Sexual Orientation [...] Contact Info) Description 10/07/2024 9:30 AM DIRECTOR OF REVENUE Virtual Visit [facility] Rheumatology [facility] [address] [facility] [address] [place] [phone] Christina Roe PA-C [address] [place] [address] [facility] [address] [place] [address] 10/23/2024 8:00 AM DIRECTOR OF REVENUE Lab [facility] [address] [facility] [address] [place] [phone] 10/30/2024 10:00 AM DIRECTOR OF REVENUE Office Visit [facility] [address] [facility] [address] [place] [phone] Christina Roe PA-C [address] [place] [address] documented as of this encounter Visit Diagnoses Not on filedocumented in this encounter Care Teams Roll Handler Relationship Specialty Start Date End Date Feliciano Uribe MD [facility] [address] [place] [address] PCP - General Family Medicine 06/01/23 Christina Roe PA-C [address] [place] [address] Physician Mold Maintenance Technician Rheumatology 11/06/23 Christina Roe PA-C [address] [place] [address] Assigned Rheumatology Provider 11/09/23 Richie Rowell RPH [address] [place] [address] Pharmacist Pharmacist 04/08/24 Richie Rowell RPH [address] [place] [address] Assigned MTM Pharmacist 04/18/24 Zhane Crain MD [address] [place] [address] Physician Rheumatology 05/14/24 Saeed Berry MD [address] [place] [address] [address] [place], [place] [address] Assigned Surgical Provider 05/19/24 documented as of this encounter
--- OUTSIDE RECORDS SUMMARY | 2024-08-30 16:48 | XMS_ITS | Encounter Summary ---
Author Organization [facility] Address [address] [place] [address] Care Team Providers Care Scouts Name Role Phone Feliciano Uribe MD Primary Care Provider [phone] Christina Roe PA-C Unavailable [phone] Christina Roe PA-C Unavailable [phone] Richie Rowell [facility] Unavailable Richie Rowell [facility] Unavailable Zhane Crain MD Unavailable Saeed Berry MD Unavailable [phone] Encounter Details Date Type Department Care Team (Late st Contact Info) Description 07/31/2024 1:45 PM VBA PROGRAMMER Lab [facility] Laboratory [address] [place] [phone] GCA (giant cell arteritis) (H); PMR [...] on file Legal Sex Female 3:41 AM VBA PROGRAMMER Gender Identity Not on file Sexual Orientation Not on file documented as of this encounter Plan of Treatment Upcoming Encounters Date Type Department Care Team (Late st Contact Info) Description 10/07/2024 9:30 AM VBA PROGRAMMER Virtual Visit [facility] Rheumatology [place] [address] [facility] [address] [place] [phone] Christina Roe PA-C [address] [place] [address] Richie Rowell, [facility] 9[address] [place] [address] 10/23/2024 8:00 AM VBA PROGRAMMER Lab [facility] [address] [facility] [address] [place] [phone] 10/30/2024 10:00 AM VBA PROGRAMMER Office Visit [facility] [address] [facility] [address] [place] [phone] Christina Roe PA-C [address] [place] [address] documented as of this encounter Procedures Procedure Name Priority Date/Time Associated Diagnosis Comments CBC WITH PLATELETS AND DIFFERENTIAL Routine 07/31/2024 1:51 PM VBA PROGRAMMER GCA (giant cell arteritis) (H) PMR (polymyalgia rheumatica) (H) CBC WITH PLATELETS & DIFFERENTIAL Routine 07/31/2024 1:51 PM VBA PROGRAMMER GCA (giant cell arteritis) (H) PMR (polymyalgia rheumatica) (H) ERYTHROCYTE SEDIMENTATION RATE AUTO Routine 07/31/2024 1:51 PM VBA PROGRAMMER GCA (giant cell arteritis) (H) PMR (polymyalgia rheumatica) (H) CRP INFLAMMATION Routine 07/31/2024 1:51 PM VBA PROGRAMMER GCA (giant cell arteritis) (H) PMR (polymyalgia rheumatica) (H) CREATININE Routine 07/31/2024 1:51 PM VBA PROGRAMMER GCA (giant cell arteritis) (H) PMR (polymyalgia rheumatica) (H) AST Routine 07/31/2024 1:51 PM VBA PROGRAMMER GCA (giant cell arteritis) (H) PMR (polymyalgia rheumatica) (H) ALT Routine 07/31/2024 1:51 PM VBA PROGRAMMER GCA (giant cell arteritis) (H) PMR (polymyalgia rheumatica) (H) ALBUMIN LEVEL Routine 07/31/2024 1:51 PM VBA PROGRAMMER GCA (giant cell arteritis) (H) PMR (polymyalgia rheumatica) (H) documented in this encounter Results * (ABNORMAL) CBC with platelets and differential (07/31/2024 1:51 PM VBA PROGRAMMER) [facility] WBC Count 5.1 4.0 - 11.0 10e3/uL 07/31/2024 2:07 PM VBA PROGRAMMER [facility] RBC Count 4.53 3.80 - 5.20 10e6/uL 07/31/2024 2:07 PM VBA PROGRAMMER [facility] Hemoglobin 13.8 11.7 - 15.7 g/dL 07/31/2024 2:07 PM VBA PROGRAMMER [facility] Hematocrit 43.9 35.0 - 47.0 % 07/31/2024 2:07 PM VBA PROGRAMMER [facility] MCV 97 78 - 100 fL 07/31/2024 2:07 PM VBA PROGRAMMER [facility] MCH 30.5 26.5 - 33.0 pg 07/31/2024 2:07 PM VBA PROGRAMMER [facility] MCHC 31.4(L) 31.5 - 36.5 g/dL 07/31/2024 2:07 PM VBA PROGRAMMER [facility] RDW 15.8(H) 10.0 - 15.0 % 07/31/2024 2:07 PM VBA PROGRAMMER [facility] Platelet Count 251 150 - 450 10e3/uL 07/31/2024 2:07 PM VBA PROGRAMMER [facility] % Neutrophils 60 % 07/31/2024 2:07 PM VBA PROGRAMMER [facility] % Lymphocytes 13 % 07/31/2024 2:07 PM VBA PROGRAMMER [facility] % Monocytes 20 % 07/31/2024 2:07 PM VBA PROGRAMMER [facility] % Eosinophils 6 % 07/31/2024 2:07 PM VBA PROGRAMMER [facility] % Basophils 1 % 07/31/2024 2:07 PM VBA PROGRAMMER [facility] % Immature Granulocytes 0 % 07/31/2024 2:07 PM VBA PROGRAMMER [facility] Absolute Neutrophils 3.1 1.6 - 8.3 10e3/uL 07/31/2024 2:07 PM VBA PROGRAMMER [facility] Absolute Lymphocytes 0.7(L) 0.8 - 5.3 10e3/uL 07/31/2024 2:07 PM VBA PROGRAMMER [facility] Absolute Monocytes 1.0 0.0 - 1.3 10e3/uL 07/31/2024 2:07 PM VBA PROGRAMMER [facility] Absolute Eosinophils 0.3 0.0 - 0.7 10e3/uL 07/31/2024 2:07 PM VBA PROGRAMMER [facility] Absolute Basophils 0.0 0.0 - 0.2 10e3/uL 07/31/2024 2:07 PM VBA PROGRAMMER [facility] Absolute Immature Granulocytes 0.0 <=0.4 10e3/uL 07/31/2024 2:07 PM VBA PROGRAMMER [facility] Blood BLOOD SPECIMEN / Unknown Venipuncture / Unknown 07/31/2024 1:51 PM VBA PROGRAMMER 07/31/2024 1:51 PM VBA PROGRAMMER Christina Roe PA-C LAB - BLOOD ORDERABLES Final Result [facility] [address] * Albumin level (07/31/2024 1:51 PM VBA PROGRAMMER) [facility] Albumin 4.5 3.5 - 5.2 g/dL 07/31/2024 9:37 PM VBA PROGRAMMER [facility] Blood BLOOD SPECIMEN / Unknown Venipuncture / Unknown 07/31/2024 1:51 PM VBA PROGRAMMER 07/31/2024 1:51 PM VBA PROGRAMMER Christina KAPOOR-Veena LAB - BLOOD ORDERABLES Final Result [facility] [address] [facility] [place], [address] * ALT (07/31/2024 1:51 PM VBA PROGRAMMER) ALT 33 0 - 50 U/L 07/31/2024 9:3 7 PM VBA PROGRAMMER [facility] Blood BLOOD SPECIMEN / Unknown Venipuncture / Unknown 07/31/2024 1:51 PM VBA PROGRAMMER 07/31/2024 1:51 PM VBA PROGRAMMER Christina KAPOOR-C LAB - BLOOD ORDERABLES Final Result Performing Organization Address City/[facility]/ZIP Co de Phone Number [facility] [address] [facility] [place], [address] * AST (07/31/2024 1:51 PM VBA PROGRAMMER) AST 29 0 - 45 U/L 07/31/2024 9:3 7 PM VBA PROGRAMMER [facility] Blood BLOOD SPECIMEN / Unknown Venipuncture / Unknown 07/31/2024 1:51 PM VBA PROGRAMMER 07/31/2024 1:51 PM VBA PROGRAMMER Christina KAPOOR-C LAB - BLOOD ORDERABLES Final Result [facility] [address] [facility] [place], [address] * Creatinine (07/31/2024 1:51 PM VBA PROGRAMMER) Creatinine 0.75 0.51 - 0.95 mg/dL 07/31/2024 9:37 PM VBA PROGRAMMER [facility] GFR Estimate 81 >60 mL/min/1.7 3m2 07/31/2024 9:37 PM VBA PROGRAMMER [facility] Comment:eGFR calculated 2020 CKD-EPI equation. Blood BLOOD SPECIMEN / Unknown Venipuncture / Unknown 07/31/2024 1:51 PM VBA PROGRAMMER 07/31/2024 1:51 PM VBA PROGRAMMER Christina WRIGHTC LAB - BLOOD ORDERABLES Final Result [facility] [address] [facility] [place], [address] [phone] * Erythrocyte sedimentation rate auto (07/31/2024 1:51 PM VBA PROGRAMMER) Erythrocyte Sedimentation Rate 5 0 - 30 mm/hr 07/31/2024 2:14 PM [address]MER [facility] Blood BLOOD SPECIMEN / Unknown Venipuncture / Unknown 07/31/2024 1:51 PM VBA PROGRAMMER 07/31/2024 1:51 PM VBA PROGRAMMER Christina KAPOOR-C LAB - BLOOD ORDERABLES Final Result [facility] [address] * CRP inflammation (07/31/2024 1:51 PM VBA PROGRAMMER) CRP Inflammation <3.00 <5.00 mg/L 07/31/20 9:37 PM VBA PROGRAMMER [facility] Blood BLOOD SPECIMEN / Unknown Venipuncture / Unknown 07/31/2024 1:51 PM VBA PROGRAMMER 07/31/2024 1:51 PM VBA PROGRAMMER Christina KAPOOR-C LAB - BLOOD ORDERABLES Final Result [facility] [address] [facility] [place], [address] [place] [phone] documented in this encounter Visit Diagnoses Diagnosis GCA (giant cell arteritis) (H) Giant cell arteritis PMR (polymyalgia rheumatica) (H) Polymyalgia rheumatica documented in this encounter Care Teams Scouts Relationship Specialty Start Date End Date Feliciano Uribe MD [address] [address] PCP - General Family Medicine 06/01/23 Christina Roe PA-C [address] [place] [address] Physician Machine Adjuster Leader Rheumatology 11/06/23 Christina Roe PA-C [address] [place] [address] Assigned Rheumatology Provider 11/09/23 Richie Rowell Justine [address] [place] [address] Pharmacist Pharmacist 04/08/24 Richie Rowell RPH [address] [place] [address] Assigned MTM Pharmacist 04/18/24 Zhane Crain MD [address] [place] [address] Physician Rheumatology 05/14/24 Saeed Berry MD [address] [place] [address] Assigned Surgical Provider 05/19/24 documented as of this encounter
--- OUTSIDE RECORDS SUMMARY | 2024-08-30 16:48 | XMS_ITS | Encounter Summary ---
Author Organization [facility] Address [address] [place] [address] Care Team Providers Care Banquet Line Cook Name Role Phone Feliciano Uribe MD Primary Care Provider [phone] Christina Roe PA-C Unavailable Christina Roe PA-C Unavailable Richie Rowell [facility] Unavailable Richie Rowell [facility] Unavailable Zhane Crain MD Unavailable Saeed Berry MD Unavailable [phone] Encounter Details Date Type Department Care Team (Late st Contact Info) Description 04/10/2024 MyC Medical Advice [facility] [address] [facility] [address] [place] [address] Richie Rowell, [facility] [address] [place], [place] [phone] Social History Tobacco Use Types Packs/Day Years [...] on file Legal Sex Female 3:41 AM PRODUCTION POTTER Gender Identity Not on file Sexual Orientation Not on file documented as of this encounter Plan of Treatment Upcoming Encounters Date Type Department Care Team (Late st Contact Info) Description 10/07/2024 9:30 AM PRODUCTION POTTER Virtual Visit [facility] Rheumatology [facility] [address] [facility] [address] [place] [phone] Christina Roe PA-C [address] [place] [address] [facility] 9[address] [place] [address] 10/23/2024 8:00 AM PRODUCTION POTTER Lab [facility] [address] [facility] [address] [place] [phone] 10/30/2024 10:00 AM PRODUCTION POTTER Office Visit [facility] [address] [facility] [address] [place] [phone] Christina Roe PA-C [address] [place] [address] documented as of this encounter Visit Diagnoses Not on filedocumented in this encounter Care Teams Banquet Line Cook Relationship Specialty Start Date End Date Feliciano Uribe MD [facility] & [address] [address] PCP - General Family Medicine 06/01/23 Christina Roe PA-C [address] [place] [address] Physician Medical Sales Representative Rheumatology 11/06/23 Christina Roe PA-C [address] [place] [address] Assigned Rheumatology Provider 11/09/23 Richie Rowell RPH [address] [place] [address] Pharmacist Pharmacist 04/08/24 Richie Rowell RPH [address] [place] [address] Assigned MTM Pharmacist 04/18/24 Zhane Crain MD [address] [place] [address] Physician Rheumatology 05/14/24 Saeed Berry MD [address] [place] [phone] Assigned Surgical Provider 05/19/24 documented as of this encounter
--- OUTSIDE RECORDS SUMMARY | 2024-08-30 16:48 | XMS_ITS | Encounter Summary ---
Author Organization [facility] Address [address] [place] [address] Care Team Providers Care Software Firmware Engineer Name Role Phone Feliciano Uribe MD Primary Care Provider [phone] Christina Roe PA-C Unavailable Christina Roe PA-C Unavailable Richie Rowell [facility] Unavailable Richie Rowell [facility] Unavailable Zhane Crain MD Unavailable Saeed Berry MD Unavailable [phone] Encounter Details Date Type Department Care [...] on file Legal Sex Female 3:41 AM BREASTER Gender Identity Not on file Sexual Orientation Not on file documented as of this encounter Plan of Treatment Upcoming Encounters Date Type Department Care Team (Late st Contact Info) Description 10/07/2024 9:30 AM BREASTER Virtual Visit [facility] Rheumatology MTM [address] [facility] 101 [place] [phone] Christina Roe PA-C [address] [place] [address] Richie Rowell RPH [address] [place] [address] 10/23/2024 8:[address] [facility] [address] [facility] 120 [place] [phone] 10/30/2024 10:00 AM BREASTER Office Visit [facility] [address] [place] [address] 200 [place] [phone] Christina Roe PA-C [address] [place] [address] documented as of this encounter Visit Diagnoses Not on filedocumented in this encounter Care Teams Software Firmware Engineer Relationship Specialty Start Date End Date Feliciano Uribe MD [address] [address] PCP - General Family Medicine 06/01/23 Christina Roe PA-C [address] [place] [address] Physician Allopathic Doctor Rheumatology 11/06/23 Christina Roe PA-C [address] [place] [address] Assigned Rheumatology Provider 11/09/23 Richie Rowell RPH [address] [place] [address] Pharmacist Pharmacist 04/08/24 Richie Rowell [facility] 909 [place] [address] Assigned MTM Pharmacist 04/18/24 Zhane Crain MD [address] [place] [address] Physician Rheumatology 05/14/24 Saeed Berry MD [address] [place] [address] Assigned Surgical Provider 05/19/24 documented as of this encounter
--- OUTSIDE RECORDS SUMMARY | 2024-08-30 16:48 | XMS_ITS | Encounter Summary ---
Author Organization [facility] Address [address] [place] [address] Care Team Providers Care Top And Seat Cover Fitter Name Role Phone Feliciano rUibe MD Primary Care Provider [phone] Christina Roe PA-C Unavailable [phone] Christina Roe PA-C Unavailable [phone] Richie Rowell [facility] Unavailable Richie Rowell [facility] Unavailable Zhane Crain MD Unavailable Saeed Berry MD Unavailable [phone] Reason for Visit * Reason Comments RECHECK Encounter Details Date Type Department Care Team (Late st Contact Info) Description 07/31/2024 2:00 PM ALLERGIST/IMMUNOLOGIST Office Visit [address] 200 [place] [phone] Christina Roe PA-C [address] [place], [place] [phone] Temporal arteritis (H) (Primary Dx); PMR (polymyalgia [...] on file Legal Sex Female 3:41 AM ALLERGIST/IMMUNOLOGIST Gender Identity Not on file Sexual Orientation Not on file documented as of this encounter Last Filed Vital Signs Vital Sign Reading Time Taken Comments Blood Pressure 120/64 07/31/2024 1:12 PM ALLERGIST/IMMUNOLOGIST Pulse 72 07/31/2024 1:12 PM ALLERGIST/IMMUNOLOGIST Temperature - - Respiratory Rate - - Oxygen Saturation - - Inhaled Oxygen Concentration - - Weight 62.6 kg (138 lb) 07/31/2024 1:12 PM ALLERGIST/IMMUNOLOGIST Height - - Body Mass Index 26.95 03/23/2024 8:57 PM CDT documented in this encounter Patient Instructions * Patient Instructions* Christina Roe PA-C - 07/31/2024 2:00 PM ALLERGIST/IMMUNOLOGIST After Visit Instructions: Thank you for coming to [facility] Rheumatology for your care. [...] 2 weeks Continue Actemra Christina Roe PA-C [facility] Rhe[facility]ology [facility] Contact information: [facility] Rhe[facility] Clinic Number: [phone] Please call or send a [employer] message with any questions about your care RGIST/IMMUNOLOGIST RGIST/IMMUNOLOGIST documented in this encounter Progress Notes * Christina Roe PA-C - 07/31/2024 2:00 PM CST Rheumatology Clinic Visit [facility] MAURILIO Woodard Date of : 1945 Age: [...] Resource Strain: Low Risk (07/09/2024) [facility] Financial Resource Strain Difficulty of Paying Living Expenses: 3 Difficulty of Paying Living Expenses: Not on file Food Insecurity: No Food Insecurity (07/09/2024) Received from [employer] [facility] Food Insecurity Do you worry your food will run out before you are able to buy more?: 1 Transportation Needs: No Transportation Needs (07/09/2024) [facility] Needs Does lack of transportation keep you from medical appointments?: 1 Does lack of transportation keep you from work, meetings or getting things that you need?: 1 Physical Activity: Insufficiently Active (10/10/2022) [facility] Exercise Vital Sign Days of Exercise per Week: 2 days Minutes of Exercise per Session: 40 min Stress: No Stress Concern Present (10/10/2022) Received from [facility], [facility] [employer] [place] [employer] - Occupational Stress Questionnaire Feeling of Stress : Only a little Social Connections: Socially Integrated (07/09/2024) Received from [employer] [facility] Social Connections Do you often feel lonely or isolated from those around you?: 0 Interpersonal Safety: Not At Risk (10/10/2022) Received from [facility], [facility] Humiliation, Afraid, Rape, and Kick questionnaire Fear of Current or Ex-Partner: No Emotionally Abused: No Physically Abused: No Sexually Abused: No Housing Stability: Low Risk (07/09/2024) [facility] Housing Stability What is your housing situation [...] mcg every 30 days D3-50 1.25 MG (54048 UT) capsule Take 1,250 mcg by mouth [...] TB negative Hepatitis B and C nonreactive RGIST/IMMUNOLOGIST documented in this encounter Plan of Treatment Upcoming Encounters Date Type Department Care Team (Late st Contact Info) Description 10/07/2024 9:30 AM ALLERGIST/IMMUNOLOGIST Virtual Visit [facility] Rheumatology [facility] [address] [facility] 101 [place] [phone] Christina Roe PA-C [address] [place] [address] [facility] 909 [place] [address] 10/23/2024 8:00 AM ALLERGIST/IMMUNOLOGIST Lab [facility] Laboratory [address] [facility] 120 [place] [phone] 10/30/2024 10:00 AM ALLERGIST/IMMUNOLOGIST Office Visit [facility] [address] [facility] 200 [place] [phone] Christina Roe PA-C [address] [place] [address] Scheduled Orders Name Type Priority Associated Diagnoses [...] medications documented in this encounter Care Teams Top And Seat Cover Fitter Relationship Specialty Start Date End Date Feliciano Uribe MD [facility] [address] [place] [address] PCP - General Family Medicine 06/01/23 Christina Roe PA-C [address] [place] [address] Physician Concrete Paving Supervisor Rheumatology 11/06/23 Christina Roe PA-C [address] [place] [address] Assigned Rheumatology Provider 11/09/23 Richie Rowell RPH [address] [place] [address] Pharmacist Pharmacist 04/08/24 Richie Rowell RPH [address] [place] [address] Assigned MTM Pharmacist 04/18/24 Zhane Crain MD [address] [place] [address] Physician Rheumatology 05/14/24 Saeed Berry MD [address] [place] [phone] Assigned Surgical Provider 05/19/24 documented as of this encounter
--- OUTSIDE RECORDS SUMMARY | 2024-08-30 16:49 | XMS_ITS | Continuity of Care Document ---
Author Name NwTOMASN User [facility] Address Unknown Organization Unknown Address Unknown Procedures FILTER APPLIED:Only known Procedures with Onset Date within the last 5 years Procedure Date Procedure Provider Additiona l Information Status ADMISSION MED REC MARKER FOR REPORTING AND BPA'S (93935) Completed NT PROBNP INPATIENT (10891) Completed COMPREHEN METABOLIC PANEL (75810) Completed LIPID PANEL (81662) Comp leted ASSAY THYROID STIM HORMONE (12855) Completed CT ABD PELV W/CONTRAST (40106) Completed ROUTINE VENIPUNCTURE (40836) Completed ASSAY OF CREATININE (12417) Completed THER/PROPH/DIAG INJ IV PUSH (47825) Completed Encounters FILTER APPLIED:Only known Encounters with Admission Date within the last 5 years Encounter Location Admission Discharge Billing Code Grounds Manager Attender Outpatient Feliciano Uribe Outpatient Feliciano Uribe Outpatient [facility] Outpatient [facility] Outpatient [facility] Outpatient [facility] Outpatient [facility] Outpatient Feliciano Uribe Outpatient [facility] Outpatient [facility] Inpatient [facility] Recurring Patient [facility] Outpatient [facility] Recurring Patient [facility] Outpatient [facility] Recurring Patient [facility] Outpatient [facility] Outpatient [facility] Outpatient [facility] Outpatient [facility] Outpatient [facility] Unknown [id number] GREG JOEL Outpatient [facility] Outpatient [facility]
== END 2024-08-30 18:14 | disposition home or self-care (01) ==
PROVIDERS: Emergency Provider Emergency Medicine Emergency Medical Services; PCP Family Medicine
DX: R22.42 Localized swelling, mass and lump, left lower limb (principal)
CPT/HCPCS: 93971; 99283; 99284

== ENCOUNTER 2025-02-04 07:57 | Outpatient (CLI) | payer MEDICARE, BC, SELFPAY | END 2025-02-04 07:58 | disposition home or self-care (01) | LOC: NFLDREF 02-05 19:36 | PROVIDERS: PCP Family Medicine; Referring Provider Family Medicine; Visit Provider Family Medicine | DX: E78.5 Hyperlipidemia, unspecified (principal); E03.9 Hypothyroidism, unspecified | CPT/HCPCS: 80053; 80061; 84439; 84443 ==

== ENCOUNTER 2025-02-11 08:11 | Outpatient (RCR) | payer MEDICARE, BC, SELFPAY ==
[2025-02-11 08:25] VITALS: BP 122/65; PULSE 58; RESP 14; TEMP 36.7; O2SAT 97
== END 2025-08-10 23:59 | disposition home or self-care (01) ==
LOC: CCIC 08:11
PROVIDERS: PCP Family Medicine; Visit Provider Clinical Nurse Specialist
DX: M81.0 Age-related osteoporosis without current pathological fracture (principal)
CPT/HCPCS: 96374; J3489

== ENCOUNTER 2025-08-11 10:12 | Emergency (ER) | payer MEDICARE, BC, SELFPAY ==
--- OUTSIDE RECORDS SUMMARY | 2025-08-03 10:00 | XMS_ITS | Encounter Summary ---
Author Organization [place] Address [address] [place] [address] Care Team Providers Care Forestry Crew Chief Name Role Phone Feliciano Uribe MD Primary Care Provider Christina Roe PA-C Unavailable Christina Roe PA-C Unavailable Richie Rowell [facility] Unavailable Richie Rowell [facility] Unavailable Zhane Crain MD Unavailable Saeed Berry MD Unavailable [phone] Reason for Visit * ReasonCommentsMedication Therapy Management Encounter Details DateTypeDepartmentCare Team (Latest Contact Info)Jnsluboxfsf87/08/2025 10:00 AM CSTVirtual Visit [facility] Rhe[facility] [address] [facility] [address] [place] [address] Christina Roe PA-C [address] [place], [place] [id number] Richie Rowell [facility] [address] [place] [address] GCA (giant cell arteritis) (H) (Primary Dx); PMR (polymyalgia rheumatica) Social History Tobacco UseTypesPacks/DayYears UsedDateSmoking Tobacco: NeverPassive Smoke Exposure: PastSmokeless Tobacco: NeverAlcohol UseStandard Drinks/WeekCommentsYes 0 (1 standard drink = 0.6 oz pure alcohol)occasional winePHQ-2AnswerDate RecordedPHQ-2 Htecp1064Adolescent EducationAnswerDate RecordedGetting School Help NeededNot on file3CommentsUnknownSex and Gender InformationValueDate RecordedSex Assigned at BirthNot on fileLegal SexFemale 06/30/2012 3:41 AM CSTGender IdentityNot on fileSexual OrientationNot on file documented as of this encounter Patient Instructions * Patient Instructions* Richie Rowell RPH - 08/03/2025 10:00 AM MASTER SCHEDULER Recommendations from today's MTM visit: Continue current medication regimen Consider the following vaccines: Shingles (Shingrix). This is a 2-dose series. The second dose due 2-6 months after the first dose. Follow-up: Return in 6 months (on 02/01/2026) for Follow up, with me, using a video visit. It was great speaking with you today. I value your experience and would be very thankful for your time in providing feedback in our clinic survey. In the next few days, you may receive an email or text message from [employer] with a link to a survey related to your ???clinical pharmacist. To schedule another MTM appointment, please call the clinic directly or you may call the MTM scheduling line at [phone] or toll-free at . My Clinical Pharmacist's contact information: Please feel free to contact me with any questions or concerns you have. Richie Rowell, PharmD Medication Therapy Management Pharmacist [facility] ER SCHEDULER documented in this encounter Progress Notes * Richie Rowell RPH - 08/03/2025 10:00 AM CST Medication Therapy Management (MTM) Encounter ASSESSMENT: Medication Adherence/Access: No issues identified. Giant cell arteritis (GCA)/Polymyalgia rheumatica (PMR) Recommend patient continue Actemra at current dose as she is not having symptoms of flare and subjectively not having side effects. She is scheduled for lab monitoring on 09/07/2025. Vaccines discussed, see plan. After visit on 08/03/2025 - reviewed labs from 06/19/25 and note from her rheumatologistwas to recheck labs in 2 weeks. Called patient and confirmed she has not completed those labs yet. Scheduled patient for labs on 08/11/2025. PLAN: Continue current medication regimen Consider the following vaccines: Shingles (Shingrix). This is a 2-dose series. The second dose due 2-6 months after the first dose. Follow-up: Return in 6 months (on 02/01/2026) for Follow up, with me, using a video visit. SUBJECTIVE/OBJECTIVE: Gato Jimenez is a 80 year old female seen for a follow-up visit from 05/04/2025. She was referredto me from Christina Roe PA-C. Reason for visit: GCA follow up. Allergies/ADRs: Reviewed in chart Past Medical History: Reviewed in chart Tobacco: She reports that she has never smoked. She has been exposed to tobacco smoke. She has never used smokeless tobacco. Alcohol: Less than 1 beverage / month Caffeine: 2-3 cups of coffee per day Medication Adherence/Access: no issues reported. Giant cell arteritis (GCA)/Polymyalgia rheumatica (PMR) Actemra 162 mg subcutaneously every 14 days (started 05/26/2024, last dose 08/03/2025) Patient reports she is noticing more stiffness in her shoulders, back and hips, finds this is overall tolerable. Reports occasional headaches near the temples that is not severe, no jaw claudication,no changes in vision, no scalp tenderness. Reports no side effects from the Actemra. Reports her blood pressure this morning was 134/65 mmHg and she reports previously readings have been similar overthe past week. Previous therapies: Prednisone, Actemra once weekly (increased LFTs, decreased to every 14 days 06/04/2025) Last lab monitoring completed: 06/19/2025 Vaccinations: Immunization History Covid-19 vaccine (6347-1060 version) Up-to-date - states she received at PCP clinic Influenza (annual) Up-to-date - states she received at PCP clinic Pneumococcal Prevnar-13: 01/12/2015 Pneumovax-23: 08/27/2007 and 11/28/2013 Prevnar-20: 10/10/2024 Up-to-date Tetanus/Tdap Up-to-date Shingrix Due to receive RSV (only for >= 50 years old) Up-to-date All patients on biologics should avoid live vaccines (varicella/VZV, intranasal influenza, MMR, or yellow fever vaccine (if traveling)) Today's Vitals: There were no vitals taken for this visit. I spent 16 minutes with this patient today. All changes were made via collaborative practice agreement with Christina Roe. A summary of these recommendations was sent via [employer]. Richie Rowell, PharmD Medication Therapy Management Pharmacist [facility] Telemedicine Visit Details The patient's medications can be safely assessed via a telemedicine encounter. Type of service: Telephone visit Originating Location (pt. Location): Home Distant Location (provider location): On-site Start Time: 10:00 AM End Time: 10:16 AM Medication Therapy Recommendations No medication therapy recommendations to display ER SCHEDULER documented in this encounter Plan of Treatment DateTypeDepartmentCare Team (Latest Contact Info)Uzttbmiytmg09/16/2025 2:15 PM CSTLab [facility] [address] [place] [address] [address] [place] [address] 09/07/2025 11:15 AM CSTLab [facility] [address] [place] [address] [address] [place] [address] 09/10/2025 12:30 PM CSTOffice Visit [address] [place] [address] Christina Roe, PARosendoC [address] [place] [address] 02/01/2026 10:00 AM CDTVirtual Visit [facility] Rheumatology [facility] [address] [address] [place] [address] Christina Roe PA-C [address] [place] [address] Richie Rowell RPH [address] [place], [place] [phone] documented as of this encounter Visit Diagnoses Diagnosis GCA (giant cell arteritis) (H)- Primary Giant cell arteritis PMR (polymyalgia rheumatica) Polymyalgia rheumatica documented in this encounter Care Teams Team MemberRelationshipSpecialtyStart DateEnd Date Feliciano Uribe MD [facility] [address] [place] [address] PCP - GeneralFamily Tlswdjyd95/6/23 Christina Roe PA-C [address] [place] [address] Physician AssistantRheumatology11/06/23 Christina Roe PA-C [address] [place] [address] Assigned Rheumatology Provider11/09/23 Richie Rowell RPH [address] [place] [address] PharmacistPharmacist04/08/24 Richie Rowell RPH [address] [place] [address] Assigned MTM Pharmacist04/18/24 Zhane Crain MD [address] [place] [address] PhysicianRheumatology05/14/24 Saeed Berry MD [address] [address] Assigned Surgical Provider05/19/24documented as of this encounter
[2025-08-11 10:15] VITALS: BP 204/74; PULSE 53; RESP 16; TEMP 36.1; O2SAT 98; BMI 25.4
--- OUTSIDE RECORDS SUMMARY | 2025-08-11 10:22 | XMS_ITS | Encounter Summary ---
Author Organization [place] Address [address] [place] [address] Care Team Providers Care Senior Materials Scientist Name Role Phone Feliciano Uribe MD Primary Care Provider Christina Roe PA-C Unavailable Christina Roe PA-C Unavailable [phone] Richie Rowell [facility] Unavailable Richie Rowell [facility] Unavailable Zhane Crain MD Unavailable Saeed Berry MD Unavailable [phone] Reason for Visit * ReasonOnset DateCommentsPrior Auth - Hqinhvotpn12/03/2025Actemra FPAP renewal Encounter Details DateTypeDepartmentCare Team (Latest Contact Info)Alddtiqbtku90/03/2025Telephone [facility] [address] [place] [address] Christina Roe PA-C [address] [place], [place] [id number] Prior Auth - Medication (Actemra FPAP renewal) Social History Tobacco UseTypesPacks/DayYears UsedDateSmoking Tobacco: NeverPassive Smoke Exposure: PastSmokeless Tobacco: NeverAlcohol UseStandard Drinks/WeekCommentsYes 0 (1 standard drink = 0.6 oz pure alcohol)occasional winePHQ-2AnswerDate RecordedPHQ-2 Ucqur6734Adolescent EducationAnswerDate RecordedGetting School Help NeededNot on file3CommentsUnknownSex and Gender InformationValueDate RecordedSex Assigned at BirthNot on fileLegal SexFemale 06/30/2012 3:41 AM CSTGender IdentityNot on fileSexual OrientationNot on file documented as of this encounter Miscellaneous Notes * Telephone Encounter - Adalberto Boles - 08/03/2025 1:40 PM CST I'm not sure why this wasn't looked at yet, sent another request LATORY COMPLIANCE ENGINEER * Telephone Encounter - Adalberto Boles - 07/03/2025 8:34 AM CST ALKA INITIATED Medication: ACTEMRA 162 MG/0.9ML [facility] Name: [facility] Date submitted: 07/03 Pending renewal application LATORY COMPLIANCE ENGINEER * Telephone Encounter - Adalberto Boles - 06/29/2025 2:04 PM CST Sent patient a message asking for 2023 income LATORY COMPLIANCE ENGINEER documented in this encounter Plan of Treatment DateTypeDepartmentCare Team (Latest Contact Info)Mdyecaawmiu58/16/2025 2:15 PM CSTLab [facility] [address] [place] [address] 09/07/2025 11:15 AM CSTLab [facility] [address] [place] [address] 09/10/2025 12:30 PM CSTOffice Visit [address] [place] [address] Christina Roe PA-C [address] [place] [address] 02/01/2026 10:00 AM CDTVirtual Visit [facility] [place] [address] [facility] [address] [place] [address] Christina Roe PA-C [address] [place] [address] Richie Rowell RPH [address] [place] [address] documented as of this encounter Visit Diagnoses Not on filedocumented in this encounter Care Teams Team MemberRelationshipSpecialtyStart DateEnd Date Feliciano Uribe MD [facility] [address] [place] [address] PCP - GeneralFamily Ghwozhzm22/6/23 Christina Roe PA-C [address] [place] [address] Physician AssistantRheumatology11/06/23 Christina Roe PA-C [address] [place] [address] Assigned Rheumatology Provider11/09/23 Richie Rowell RPH [address] [place] [address] PharmacistPharmacist04/08/24 Richie Rowell RPH [address] [place] [address] Assigned MTM Pharmacist04/18/24 Zhane Crain MD [address] [place] [address] PhysicianRheumatology05/14/24 Saeed Berry MD 6 [facility] [address] [place] [address] Assigned Surgical Provider05/19/24documented as of this encounter
--- OUTSIDE RECORDS SUMMARY | 2025-08-11 10:22 | XMS_ITS | Encounter Summary ---
Author Organization [place] Address [address] [place] [address] Care Team Providers Care Knocker Out Name Role Phone Feliciano Uribe MD Primary Care Provider [phone] Christina Roe PA-C Unavailable Christina Roe PA-C Unavailable Richie Rowell [facility] Unavailable Richie Rowell [facility] Unavailable Zhane Crain MD Unavailable Saeed Berry MD Unavailable [phone] Encounter Details DateTypeDepartmentCare Team (Latest Contact Info)Yptfthmbchc66/05/2025[facility] Medical Advice [address] [place] [address] Christina Roe PA-C [address] [place] [address] Social History Tobacco UseTypesPacks/DayYears UsedDateSmoking Tobacco: NeverPassive Smoke Exposure: PastSmokeless Tobacco: NeverAlcohol UseStandard Drinks/WeekCommentsYes 0 (1 standard drink = 0.6 oz pure alcohol)occasional winePHQ-2AnswerDate RecordedPHQ-2 Fnfos3484Adolescent EducationAnswerDate RecordedGetting School Help NeededNot on file3CommentsUnknownSex and Gender InformationValueDate RecordedSex Assigned at BirthNot on fileLegal SexFemale 06/30/2012 3:41 AM CSTGender IdentityNot on fileSexual OrientationNot on file documented as of this encounter Plan of Treatment DateTypeDepartmentCare Team (Latest Contact Info)Mnkmaihwydl82/16/2025 2:[address] [facility] [address] [place] [address] [address] [place] [address] 09/07/2025 11:15 AM CSTLab [address] [place] [address] 09/10/2025 12:30 PM CSTOffice Visit [address] [place] [address] Christina Roe PA-C [address] [place] [address] 02/01/2026 10:00 AM CDTVirtual Visit [facility] Rheumatology [facility] [address] [facility] [address] [place] [address] Christina Roe PA-C [address] [place] [address] Richie Rowell, [facility] [address] [place] [address] documented as of this encounter Visit Diagnoses Not on filedocumented in this encounter Care Teams Team MemberRelationshipSpecialtyStart DateEnd Date Feliciano Uribe MD [address] [address] PCP - GeneralFamily Vklvljwi09/6/23 Christina Roe PA-C [address] [place] [address] Physician AssistantRheumatology11/06/23 Christina Roe PA-C [address] [place] [address] Assigned Rheumatology Provider11/09/23 Richie Rowell RPH [address] [place] [address] PharmacistPharmacist04/08/24 Richie Rowell [facility] [address] [place] [id number] Assigned MTM Pharmacist04/18/24 Zhane Crain MD [address] [place] [address] PhysicianRheumatology05/14/24 Saeed Berry MD [address] [place] [address] Assigned Surgical Provider05/19/24documented as of this encounter
--- OUTSIDE RECORDS SUMMARY | 2025-08-11 10:24 | XMS_ITS | Clinical Summary ---
Author Organization [facility] Address [address] [place] [address] Care Team Providers Care Dielectric Machine Operator Name Role Phone Feliciano Uribe MD Primary Care Provider [phone] Source Comments You are receiving this document as you are listed as the primary care provider,follow-up provider, or the patient has been referred to you for consultation.This is in compliance with the Medicare andSt. [facility] Hospitalcaid EHR Incentive Program,which states Providers who transition their patient to another setting of careor provider of care or refers their patient to another provider of care shouldprovide summary care record for each transition of care or referral. [email or web address] Allergies No known active allergies Medications MedicationSigDispense QuantityRefillsLast FilledStart DateEnd DateStatus amLODIPine (NORVASC) 10 MG tablet Take 1 Tablet by mouth daily. 90 Tablet Active atorvastatin (LIPITOR) 10 MG tablet Take 1 Tablet by mouth daily.Active chlorthalidone (HYGROTON) 50 MG tablet Take 1 Tablet by mouth daily. 90 Tablet Active FLUoxetine (PROZAC) 40 MG capsule Take 1 Capsule by mouth daily. 90 Capsule Active nitroglycerin (NITROSTAT) 0.[address] 1 Tablet under tongue every 5 minutes as needed for Chest Pain. If no relief after 5 min syrc023;continue 1 tab every 5 min max 3 tab 100 Tablet Active valACYclovir (VALTREX) 1 g tablet Take 1 Tablet by mouth two times a day.03/27/2019Active Cholecalciferol (VITAMIN D3) 20500 units TABS 03/27/2019Active levothyroxine (SYNTHROID) 137 MCG tablet Take 175 mcg by mouth daily. 90 Tablet Active multivitamin (THERAGRAN) tablet Take 1 Tablet by mouth daily. 30 Tablet 11003/27/2019Active calcium carbonate oyster shell (OYSTER SHELL) 500 mg elemental Ca tablet Take 1 Tablet by mouth two times a day.03/27/2019Active drug not in computer Cyanocobalamin (vitamin B 12)03/27/2019Active alendronate (FOSAMAX) 70 MG tablet Take 1 Tablet by mouth once every week. Take 30 minutes before first yshf-gpmqp-oekdifucwi. Avoid lying down for 30 minutes. 12 Tablet Active lisinopril (ZESTRIL) 10 MG tablet Take 1 Tablet by mouth daily. 90 Tablet Active celecoxib (CELEBREX) 100 MG capsule Take 1 Capsule by mouth two times daily as needed for Pain. 180 Capsule Active predniSONE (DELTASONE) 20 MG tablet 1-2 tabs daily for 1-10 days for attack of pseudogout 30 Tablet 04/07/2020Active Active Problems ProblemNoted DateDiagnosed DatePrimary osteoarthritis of left knee04/07/2020 Yvcgclmdjv20/12/8983Hddfpbswxwdesrliu60/12/2019Primary osteoarthritis of both azokko9004/07/2019Osteochondritis kylcairpa82/12/8312Qfbmyvmnntnpbs29/12/2019CAD (coronary artery disease)04/07/2019HTN (hypertension)04/07/2019Hyperlipidemia 04/07/20198571Kcjkwvr11/12/2019 Immunizations ImmunizationAdministration DatesNext DueDT Ped01/30/1980Influenza, Unspecified Sbmouanafdi31/26/2020 Social History Tobacco UseTypesPacks/DayYears UsedDateSmoking Tobacco: NeverSmokeless Tobacco: NeverAlcohol UseStandard Drinks/WeekCommentsNot Currently0 (1 standard drink = 0.6 oz pure alcohol)CommentsUnknownSex and Gender InformationValueDate RecordedSex Assigned at BirthNot on fileLegal SjbQybsfo54/18/2015 8:44 AM CDT Gender IdentityNot on fileSexual OrientationNot on file Last Filed Vital Signs Vital SignReadingTime TakenCommentsBlood Ewilxhwi340/8804/07/2020 9:21 AM CDT Soqdd429804/07/2020 9:21 AM UUEIuartrsqadb79.1 ??C (96.9 ??F)04/07/2020 9:21 AM CDTRespiratory Rate--Oxygen Saturation--Inhaled Oxygen Concentration--Asdpms62.8 kg (134 lb)04/07/2020 9:21 AM JTVEwhxlh216 cm (4' 11.84)04/07/2019 12:52 PM CDT Body Mass Index26.31004/07/2019 12:52 PM CDT Plan of Treatment Health MaintenanceDue DateLast DoneCommentsHep C Screening (Preventive Services) 1945Medicare Annual Wellness Visit1946Zoster/Shingles Vaccine (1 of 2)1996Dexa2011RSV Vaccine (1 - 1-dose 75+ series)2021 DTaP/Tdap/Td Vaccine (4 - Tdap), 03/10/2005, 01/30/1980 COVID-19 Vaccine (3 - season), 10/15/2020Influenza Vaccine (#1), 06/28/2018, 05/02/2017, Additional history existsPneumococcal Vaccine 50+ LmjHyuvzwwej09/19/2015, 11/28/2013, 08/27/2007 HepA VaccineAged OutNo longer eligible based on patient's age to complete this topicHepB VaccineAged OutNo longer eligible based on patient's age to complete this topicHib VaccineAged OutNo longer eligible based on patient's age to complete this topicIPV (Polio) VaccineAged OutNo longer eligible based on patient's age to complete this topicMCV4 VaccineAged OutNo longer eligible based on patient's age to complete this topicMeningococcal B VaccineAged OutNo longer eligible based on patient's age to complete this topic Insurance Care Teams Team MemberRelationshipSpecialtyStart DateEnd Date Feliciano Uribe MD [address] [place] [address] [facility] - General02/17/19
--- OUTSIDE RECORDS SUMMARY | 2025-08-11 10:24 | XMS_ITS | Clinical Summary ---
Author Organization [employer] [facility] [facility] Address [address] [place] [address] Care Team Providers Care Reliability Manager Name Role Phone Feliciano Uribe MD Primary Care Provider [phone] Allergies Active AllergyReactionsCriticalityNoted DateCommentsAspirinGI Noeuinrm27/12/2024 Contraindicated due to hx of gastric bypass Medications MedicationSigDispense QuantityRefillsLast FilledStart DateEnd DateStatus atorvastatin (LIPITOR) 10 mg tablet Take 10 mg by mouth at bedtime.07/04/2022ctive cholecalciferol (VITAMIN D3) 50,000 unit capsule Take 50,000 units by mouth once weekly.06/26/2022ctive FLUoxetine (PROZAC) 40 mg capsule Take 40 mg by mouth once daily.07/04/2022ctive nitroglycerin (NITROSTAT) 0.[address] 0.4 mg under the tongue every 5 minutes if needed.11/21/2021ctive Walker Indications:Arthritis of knee, rightWalker with front wheels for home use. 1 Each 07/27/2022ctive levothyroxine (SYNTHROID) 150 mcg tablet Take 1 Tablet (150 mcg) by mouth once daily.09/12/2023ctive metoprolol tartrate (LOPRESSOR) 25 mg tablet Indications:SVT (supraventricular tachycardia) (HC)TAKE 1 TABLET(25 MG) BY MOUTH TWICE DAILY 180 Tablet ctive Additional Information Patient taking differently: 25 mg Oral BID, Reported on 07/08/2024 lisinopriL (PRINIVIL; ZESTRIL) 10 mg tablet Indications:HypertensionTAKE 1 TABLET(10 MG) BY MOUTH TWICE DAILY 180 Tablet 06/16/2024ctive Additional Information Patient taking differently: 10 mg Oral BID, Reported on 07/08/2024 tocilizumab (Actemra) 162 mg/0.9 mL subcutaneous syringe Inject 162 mg subcutaneous once weekly.05/15/2024ctive pantoprazole (PROTONIX) 40 mg delayed-release tablet Take 40 mg by mouth once daily before a meal.03/27/2024ctive methocarbamoL 500 mg tablet Take 500 mg by mouth 4 times daily if needed for Muscle Spasm.03/26/2024ctive cyanocobalamin (VITAMIN B12) 1,000 mcg/mL injection 1,000 mcg once a month.Active Multivitamin Cmb No.21-Iron-FA 18-400 mg-mcg tab Take 1 Tablet by mouth once daily.Active amoxicillin 500 mg capsule TAKE 2 CAPSULES BY MOUTH TWICE DAILY NEEDED FOR DENTAL PROCEDURESActive calcium carbonate (TUMS) 200 mg calcium (500 mg) chewable tablet Chew 500 mg by mouth once daily.Active clobetasol (TEMOVATE) 0.05 % cream APPLY TO AFFECTED AREAS ON LEG TWICE DAILY FOR 3 WEEKS, THEN TAKE A 1 WEEK BREAK. RESUME NEEDED.01/10/2024ctive zoledronic acid in mannitol & water (RECLAST) 5 mg/100 mL infusion Inject 5 mg intravenous.Active oxyCODONE (ROXICODONE) 5 mg immediate release tablet Indications:S/P total knee arthroplasty, leftTake 1-2 Tablets (5-10 mg) by mouth every 4 hours if needed for Pain (for moderate to severe pain (5 mg for pain scale rating 4-6; 10 mg for pain scale 7-10)). 26 Tablet 07/09/2024ctive rivaroxaban (XARELTO) 10 mg tablet Indications:S/P total knee arthroplasty, leftTake 1 Tablet (10 mg) by mouth once daily with evening meal. 30 Tablet 07/09/2024ctive sennosides-docusate (SENOKOT S) (8.6-50 mg) tablet Indications:S/P total knee arthroplasty, leftTake 1 Tablet by mouth 2 times daily if needed for Constipation (Hold for loose stools). 30 Tablet 07/09/2024ctive acetaminophen (TYLENOL EXTRA STRGTH) 500 mg tablet Indications:S/P total knee arthroplasty, leftTake 2 Tablets (1,000 mg) by mouth every 8 hours if needed for Pain. Max acetaminophen dose: 4000mgin 24 hrs. 60 Tablet ctive ondansetron (ZOFRAN ODT) 4 mg disintegrating tablet Indications:NauseaPlace 1 Tablet (4 mg) on the tongue every 8 hours if needed for Nausea/Vomiting. 10 Tablet 4Active amLODIPine (NORVASC) 5 mg tablet Indications:Hypertension, unspecified typeTAKE 1 TABLET(5 MG) BY MOUTH DAILY 90 Tablet 5Active Active Problems ProblemNoted DateDiagnosed DateS/P total knee arthroplasty, left07/09/2024Giant cell icuudweei96/13/2024aroxysmal A-fib07/09/2024 Overview (07/09/2024): Patient reports atrial fibrillation during hospital stay for upper gastrointestinal bleed. Hemorrhagic shock07/22/2022Gastrointestinal hemorrhage with hematemesis 07/22/2022ieulafoy lesion (hemorrhagic) of stomach and hifjdjqm80/26/2022CAD (coronary artery disease)04/07/20194175Fpfxhflvnxxefn70/12/2019Hypothyroidism 04/07/2019Primary osteoarthritis of both bvdtee7504/07/20194078Msbslyppzs72/12/2019 Vsngyls6304/07/2019Primary hypertensionGastric bypass status for obesity Social History Tobacco UseTypesPacks/DayYears UsedDateSmoking Tobacco: NeverSmokeless Tobacco: Never Tobacco Cessation:Counseling Given: Not Answered Alcohol UseStandard Drinks/WeekCommentsYes0 (1 standard drink = 0.6 oz pure alcohol)occ wineSocial ConnectionsAnswerDate RecordedDo you often feel lonely or isolated from those around you?Financial Resource StrainAnswerDate RecordedDifficulty of Paying Living Fctabkcx541/13/2024ifficulty of Paying Living ExpensesNot on file07/09/2024Food InsecurityAnswerDate RecordedDo you worry your food will run out before you are able to buy more? Transportation NeedsAnswerDate RecordedDoes lack of transportation keep you from medical appointments?oes lack of transportation keep you from work, meetings or getting things that you need?Housing StabilityAnswerDate RecordedWhat is your housing situation today?Interpersonal Safety AnswerDate RecordedAre you being hit, kicked, pushed or yelled at (see row info)?No07/09/2024Interpersonal Safety Abuse 12 - 18Not on file07/09/2024 Interpersonal Safety Ambulatory VulnerabilityNot on file07/09/2024Utilities AnswerDate RecordedDo you have trouble paying for utilities (for example, heat, electricity, water, phone)?regnantCommentsNoSex and Gender InformationValueDate RecordedSex Assigned at BirthNot on fileLegal SexFemale 09/09/2012 8:24 AM CSTGender IdentityNot on fileSexual OrientationNot on file Last Filed Vital Signs Vital SignReadingTime TakenCommentsBlood Ogwdillh449/6907/10/2024 8:15 AM CERTIFIED GREEN BUILDING ENGINEER Zpkcu089607/10/2024 8:15 AM MABOgcohmkwrbn81.4 ??C (97.5 ??F)07/10/2024 8:03 AM CSTRespiratory Bylb202107/10/2024 8:15 AM CSTOxygen Eifpfipwud85%07/10/2024 8:15 AM CSTInhaled Oxygen Concentration--Ydheuj31.1 kg (145 lb 11.2 oz)07/09/2024 8:18 AM EMKIcvoqa269.8 cm (5' 10)07/04/2024 3:14 PM CSTBody Mass Index20.91 07/04/2024 3:14 PM CERTIFIED GREEN BUILDING ENGINEER Plan of Treatment Health MaintenanceDue DateLast DoneCommentsTetanus gsfanfl6704/06/1957Depression screening for age 12+1958BMI (ht and wt on same day) for age 18+1964 Hepatitis C screening for age 18-7904/06/1964Pneumococcal series for age 50+ (1 of 2 - PCV)1965Zoster (shingles) series for age 50+ (1 of 2)1965 DEXA/DXA scan for age 65+2011Medicare Wellness for age 65+2011COVID- 19 vaccine series (3 - Moderna risk series)/, 1RSV vaccine for adults or (1 - 1-dose 75+ series)2021Influenza Vaccine (#1)2025Hepatitis B series for 19+Aged OutNo longer eligible based on patient's age to complete this topic Medical Devices ImplantedTypeAreaManufacturerDevice IdentifierShelf Expiration DateModel / Serial / LotCmnt Bone 40g Simplex P Non Atb Mv - [id number] Implanted:Qty: 1 on 07/09/2024 by Rubin Mancera MD at [facility] Total JointLeft: [employer] Qbxmjxgsxvmm83/31/[id number] / / [id number] Cruciate Retaining Femoral Implanted:Qty: 1 on 07/09/2024 by Rubin Mancera MD at [facility] Total JointLeft: [facility] [place] Rrudndalllgw05/24/[id number] / / [id number] Primary Tibial Baseplate Implanted:Qty: 1 on 07/09/2024 by Rubin Mancera MD at [facility] Total JointLeft: [employer] Axcpioqgdjqo7513-K-348 / / [id number] Tib Sz 2 9mm Knee X3 Condylar Stabilizing Triathlon - [id number] Implanted:Qty: 1 on 07/09/2024 by Rubin Mancera MD at [facility] Total JointLeft: [facility] [place] Wabpblyyzobu31/07/[id number]-637-[id number] / / [id number] Patellar 26sfh5eo Knee X3 Asymmetric Triathlon - [id number] Implanted:Qty: 1 on 07/09/2024 by Rubin Mancera MD at [facility] Total JointLeft: KneeStryker Lhauetchljtf23/18/[id number]-727-[id number] / / [id number] Insurance Advance Directives * Full Code (Latest Code Status on File) Date ActivatedDate RaujmvnyazlBznygbji68/13/2024 7:51 AM07/10/2024 2:58 PM QuestionAnswerCommentsCode Status Discussion:* Unable to Assess Preferences, Provider to review later * Full Code Date ActivatedDate CoiycxvwrpjBtaludnn05/26/2022 1:18 PM07/27/2022 7:46 PM QuestionAnswerCommentsCode Status Discussion:* Reviewed Preferences Care Teams Team MemberRelationshipSpecialtyStart DateEnd Date Feliciano Uribe MD [address] [place] [address] PCP - [facility]09/01/22
--- OUTSIDE RECORDS SUMMARY | 2025-08-11 10:24 | XMS_ITS | Encounter Summary ---
Author Organization [employer] Address [address] [place] [address] Care Team Providers Care Imager Name Role Phone Feliciano Uribe MD Primary Care Provider [phone] Christina Roe PA-C Unavailable Christina Roe PA-C Unavailable Richie Rowell [facility] Unavailable Richie Rowell [facility] Unavailable Zhane Crain MD Unavailable Saeed Berry MD Unavailable [phone] Encounter Details DateTypeDepartmentCare Team (Latest Contact Info)Bwjzjsyslhm80/03/2025[facility] Medical Advice [facility] [address] [facility] [address] [place] [address] Adalberto Boles Social History Tobacco UseTypesPacks/DayYears UsedDateSmoking Tobacco: NeverPassive Smoke Exposure: PastSmokeless Tobacco: NeverAlcohol UseStandard Drinks/WeekCommentsYes 0 (1 standard drink = 0.6 oz pure alcohol)occasional winePHQ-2AnswerDate RecordedPHQ-2 Ixovx2434Adolescent EducationAnswerDate RecordedGetting School Help NeededNot on file3CommentsUnknownSex and Gender InformationValueDate RecordedSex Assigned at BirthNot on fileLegal SexFemale 06/30/2012 3:41 AM CSTGender IdentityNot on fileSexual OrientationNot on file documented as of this encounter Plan of Treatment DateTypeDepartmentCare Team (Latest Contact Info)Lrtvdadpjkq70/16/2025 2:15 PM CSTLab [facility] [address] [facility] [address] [place] [address] 09/07/2025 11:15 AM CSTLab [facility] [facility] [address] [place] [address] 09/10/2025 12:30 PM CSTOffice Visit [address] [place] [phone] Christina oRe PA-C [address] [place], [place] [phone] 02/01/2026 10:00 AM CDTVirtual Visit [facility] Rheumatology [facility] [address] [facility] [address] [place] [phone] Christina Roe PA-C [address] [place], [place] [phone] Richie Rowell, [facility] [address] [place] [address] documented as of this encounter Visit Diagnoses Not on filedocumented in this encounter Care Teams Team MemberRelationshipSpecialtyStart DateEnd Date Feliciano Uribe MD [facility] [address] [place] [address] PCP - GeneralFamily Ijbasqfv69/6/23 Christina Roe PA-C [facility] [place] [address] Physician AssistantRheumatology11/06/23 Christina Roe PA-C [address] [place] [address] Assigned Rheumatology Provider11/09/23 Richie Rowell [facility] [address] [place] [address] PharmacistPharmacist04/08/24 Rihcie Rowell [facility] [address] [place] [phone] Assigned MTM Pharmacist04/18/24 Zhane Crain MD [address] [place] [address] PhysicianRheumatology05/14/24 Saeed Berry MD [address] [place] [phone] Assigned Surgical Provider05/19/24documented as of this encounter
--- OUTSIDE RECORDS SUMMARY | 2025-08-11 10:24 | XMS_ITS | Encounter Summary ---
Author Organization [facility] Address [address] [place] [address] Care Team Providers Care Special Investigation Unit Investigator Name Role Phone Feliciano Uribe MD Primary Care Provider Christina Roe PA-C Unavailable Christina Roe PA-C Unavailable Richie Rowell [facility] Unavailable Richie Rowell [facility] Unavailable Zhane Crain MD Unavailable Saeed Berry MD Unavailable [phone] Reason for Visit * ReasonOnset DateCommentsPrior Auth - Yueylurkwr83/16/2024Actemra FPAP renewal Encounter Details DateTypeDepartmentCare Team (Latest Contact Info)Mbpqoayykvx78/16/[address] [phone] Zhane Crain MD [address] [place] [address] Prior Auth - Medication (Actemra FPAP renewal) Social History Tobacco UseTypesPacks/DayYears UsedDateSmoking Tobacco: NeverPassive Smoke Exposure: PastSmokeless Tobacco: NeverAlcohol UseStandard Drinks/WeekCommentsYes 0 (1 standard drink = 0.6 oz pure alcohol)occasional winePHQ-2AnswerDate RecordedPHQ-2 Liqtg6024Adolescent EducationAnswerDate RecordedGetting School Help NeededNot on file3CommentsUnknownSex and Gender InformationValueDate RecordedSex Assigned at BirthNot on fileLegal SexFemale 06/30/2012 3:41 AM CSTGender IdentityNot on fileSexual OrientationNot on file documented as of this encounter Miscellaneous Notes * Telephone Encounter - Adalberto Boles - 08/28/2024 2:40 PM CST Sent a test claim, coverage is good [employer] * Telephone Encounter - Adalberto Boles - 08/19/2024 12:03 PM CST [facility] APPROVED Medication: ACTEMRA 162 MG/0.9ML SC SOSY Amount: $ [employer] Name: [facility] Effective Date: 08/27/2024 Foundation Expiration Date: 08/26/2025 Additional Information: must fill at [facility] Patient Notified: yes [employer] * Telephone Encounter - Adalberto Boles - 08/11/2024 4:06 PM CST [facility] INITIATED Medication: ACTEMRA 162 MG/0.9ML SC SOSY [facility] Name: [facility] Date submitted: 08/11/2024 4:06 PM Pending renewal [employer] documented in this encounter Plan of Treatment DateTypeDepartmentCare Team (Latest Contact Info)Yxngcedtrkk24/16/2025 2:15 PM [facility] [address] [place] [phone] 09/07/2025 11:15 AM [facility] [address] [place] [phone] 09/10/2025 12:30 PM CSTOffice Visit [facility] [address] [facility] [address] [place] [phone] Christina Roe PA-C [address] [place] [address] 02/01/2026 10:00 AM CDTVirtual Visit [facility] Rheumat[facility] [address] [facility] [address] [place] [phone] Christina Roe PA-C [address] [place] [address] Richie Rowell RPH [address] [place] [phone] documented as of this encounter Visit Diagnoses Not on filedocumented in this encounter Care Teams Team MemberRelationshipSpecialtyStart DateEnd Date Feliciano Uribe MD [facility] 2] [address] [place] [address] PCP - GeneralFamily Gskymoni27/6/23 Christina Roe PA-C [address] [place] [address] Physician AssistantRheumatology11/06/23 Christina Roe PA-C [address] [place] [address] Assigned Rheumatology Provider11/09/23 Richie Rowell RPH [address] [place] [address] PharmacistPharmacist04/08/24 Richie Rowell [facility] [address] [place], [place] [phone] Assigned MTM Pharmacist04/18/24 Zhane Crain MD [address] [place] [phone] PhysicianRheumatology05/14/24 Saeed Berry MD [address] [address] Assigned Surgical Provider05/19/24documented as of this encounter
--- OUTSIDE RECORDS SUMMARY | 2025-08-11 10:24 | XMS_ITS | Clinical Summary ---
Author Organization [facility] Address [address] [place] [address] Care Team Providers Care Central Service Technician Name Role Phone Feliciano Uribe MD Primary Care Provider Christina Roe PA-C Unavailable [phone] Christina Roe PA-C Unavailable Richie Rowell [facility] Unavailable Richie Rowell [facility] Unavailable Zhane Crain MD Unavailable Saeed Berry MD Unavailable [phone] Allergies Active AllergyReactionsCriticalityNoted JliqOvivoxqjYrvfgua03/12/2024 Contraindicated due to hx of gastric bypass Medications MedicationSigDispense QuantityRefillsLast FilledStart DateEnd DateStatus amoxicillin (AMOXIL) 500 MG capsule TAKE 4 CAPSULES BY MOUTH 1 HOUR BEFORE DENTAL APPOINTMENT FOR 1 DOSE11/06/2022 Active atorvastatin (LIPITOR) 10 MG tablet Take 10 mg by mouth at bedtimeActive D3-50 1.25 MG (89682 UT) capsule Take 1,250 mcg by mouth once a weekActive FLUoxetine (PROZAC) 40 MG capsule Take 40 mg by mouth dailyActive lisinopril (ZESTRIL) 10 MG tablet Take 10 mg by mouth 2 times daily09/14/2023ctive metoprolol tartrate (LOPRESSOR) 25 MG tablet Take 25 mg by mouth 2 times daily09/14/2023ctive nitroGLYcerin (NITROSTAT) 0.[address] 0.4 mg under the ocjjru0411/21/2021ctive Cyanocobalamin 1000 MCG/ML KIT 1,000 mcg every 30 daysActive methocarbamol (ROBAXIN) 500 MG tablet Indications:Neck painTake 1 tablet (500 mg) by mouth 4 times daily as needed for muscle spasms 10 tablet 03/26/2024ctive Multiple Vitamin (MULTIVITAMIN ADULT PO) Take 1 tablet by mouth dailyActive calcium carbonate (TUMS) 500 MG chewable tablet Take 1 chew tab by mouth dailyActive zoledronic acid (RECLAST) 5 MG/100ML SOLN infusion Inject 5 mg into the vein once Every 12 monthsActive omeprazole (PRILOSEC) [address] capsule Take 40 mg by mouth daily as needed.11/01/2022ctive levothyroxine (SYNTHROID/LEVOTHROID) 125 MCG tablet Take 125 mcg by mouth every morning (before breakfast).Active tocilizumab (ACTEMRA) 162 MG/0.9ML subcutaneous injection Indications:GCA (giant cell arteritis) (H),PMR (polymyalgia rheumatica)Inject 0.9 mLs (162 mg) subcutaneously every 14 days. 1.8 mL 5Active amLODIPine (NORVASC) 5 MG tablet Take 5 mg by mouth dailyDiscontinued(Med Rec(No AVS / No eCancel)) rivaroxaban ANTICOAGULANT (XARELTO) 10 MG TABS tablet Take 10 mg by mouth daily (with dinner).Discontinued(Med Rec(No AVS / No eCancel)) Active Problems ProblemNoted DateDiagnosed DateTemporal euvanzeus93/27/2024Neck pain03/22/2024 PMR (polymyalgia rheumatica)4Right temporal oqgjwmuj66/27/2024ecreased vision of right eye03/22/2024ieulafoy lesion (hemorrhagic) of stomach and /26/2022Hemorrhagic shock07/22/2022Intestinal bypass and anastomosis jmyhpr7907/12/2020Primary osteoarthritis of left knee04/07/20208263Azzcvmt61/12/2019 Calcium pyrophosphate deposition vpoqkys5004/07/20194594Fwjuyjnvfyjgmkgln00/12/2019 Coronary zohgevzswlzpcit64/12/4603Iamnpezlrjmmmc93/12/2019Primary osteoarthritis of both lcazvw2504/07/2019High aspartate aminotransferase level03/24/2015 Adjustment vjmvrejm51/29/2013 Overview (05/28/2015): Problem list name updated by automated process. Provider to review Euqhyekyxqhgbk11/19/2010Primary bmcgdappwjqg97/19/2010 Encounters DateTypeDepartmentCare TzlnVrqofvjyofa19/08/2025 10:00 AM CSTVirtual Visit [facility] Rhe[facility]ology [facility] [address] [facility] [address] [place] [address] Christina Roe PA-C Krier, John, RPH GCA (giant cell arteritis) (H) (Primary Dx); PMR (polymyalgia rheumatica)07/01/2025MyC Medical Advice [facility] [address] [facility] [address] [place] [phone] Christina Roe PA-C 06/29/2025Telephone [address] [phone] Christina Roe PA-C Prior Auth - Medication (Actemra FPAP renewal)06/29/2025C Medical Advice [facility] [address] [facility] 1st [place] [phone] Adalberto Boles 06/19/2025 10:15 AM CDTLab [facility] [address] [facility] [place] [address] PMR (polymyalgia rheumatica); GCA (giant cell arteritis) (H); High risk medication use06/19/2025Results Follow-Up [address] [phone] Christina Roe PA-C Subj: Message about your fijbfez0706/19/20254406Gpimrh71/09/2025 10:30 AM CDTOffice Visit [facility] [address] [place] [address] [address] [place] [phone] Christina Roe PA-C PMR (polymyalgia rheumatica) (Primary Dx); GCA (giant cell arteritis) (H); High risk medication use06/04/2025MyC Medical Advice [facility] [address] [facility] [address] [place] [phone] Christina Roe PA-C 06/04/20255868Obutiy54/08/1849Ssvykx76/07/2025Telephone [facility] Rheumatology [facility] [address] [facility] [address] [place] [phone] Richie Rowell [facility] Medication Vyruxq9006/01/2025 10:30 AM CDTLab [facility] [address] [facility] [address] [place] [phone] High risk medication use; PMR (polymyalgia rheumatica); Temporal arteritis (H)06/01/2025Results Follow-Up [address] [phone] Christina Roe PA-C 06/01/2025Travelfrom Last 3 Months Immunizations ImmunizationAdministration DatesNext DueDT (PEDS <7y)01/30/1980Flu, Unspecified 06/21/2020,05/05/20119732H3e5-15 Novel Flu06/28/2009Influenza (High Dose) Trivalent,PF (Fluzone)06/28/2018,05/02/2017,06/05/2016,05/27/2014Influenza (IIV3) PF05/05/2011Influenza (prior to 2023)05/02/2012,05/13/2009Influenza Vaccine 65+ (Fluzone HD)06/19/2023,07/19/2021,06/21/2020Pneumo Conj 13-V (2010&after)01/12/2015Pneumococcal 23 kmfhvi1011/28/2013,08/27/2007TD,PF 7+ (Tenivac)03/10/2005TDAP (Adacel,Boostrix)11/21/2021,05/02/2012 Family History Medical HistoryRelationCommentsGlaucomaNo family hx ofMacular DegenerationNo family hx of Social History Tobacco UseTypesPacks/DayYears UsedDateSmoking Tobacco: NeverPassive Smoke Exposure: PastSmokeless Tobacco: Never Tobacco Cessation:Counseling Given: Not Answered Alcohol UseStandard Drinks/WeekCommentsYes0 (1 standard drink = 0.6 oz pure alcohol)occasional winePHQ-2AnswerDate RecordedPHQ-2 Kfgva5534Adolescent EducationAnswerDate RecordedGetting School Help NeededNot on file05/31/2023 CommentsUnknownSex and Gender InformationValueDate RecordedSex Assigned at BirthNot on fileLegal TxrBagitc22/04/2012 3:41 AM CSTGender IdentityNot on fileSexual OrientationNot on file Last Filed Vital Signs Vital SignReadingTime TakenCommentsBlood Ohezbohm043/9006/04/2025 10:41 AM CDT verbal rwjrycgovIfehp9498/09/2025 10:20 AM CXSAftxbmbcflr91.7 ??C (98.1 ??F) 03/26/2024 4:09 PM CDTRespiratory Eozk559304/17/2024 12:17 PM CDTOxygen Saturation 98%06/04/2025 10:20 AM CDTInhaled Oxygen Concentration--Uxwvqt01.3 kg (135 lb 3.2 oz)06/04/2025 10:20 AM LMEWurqoe386.4 cm (5')03/23/2024 8:57 PM CDTBody Mass Index26. 8:57 PM CDT Plan of Treatment DateTypeDepartmentCare Team (Latest Contact Info)Wwabhrxbrse05/16/2025 2:15 PM [facility] [address] [place] [address] [address] [place] [address] 09/07/2025 11:15 AM CSTLab [facility] [facility] [address] [place] [address] 09/10/2025 12:30 PM CSTOffice Visit [place] [address] [facility] [address] [place] [phone] Christina Roe PA-C [address] [place] [address] 02/01/2026 10:00 AM CDTVirtual Visit [facility] Rheumatology [facility] [address] [facility] [address] [place] [phone] Christina Roe PA-C [address] [place] [address] Richie Rowell, [facility] [address] [place] [address] Health MaintenanceDue DateLast DoneCommentsADVANCE CARE IZNKQKDC1946NNUAL REVIEW OF HM CNWAWZ62 1946DEXA1946ZOSTER VACCINE (1 of 2)1965FALL RISK UJRYALWCAK31/11/2011MEDICARE ANNUAL WELLNESS VISIT2011RSV VACCINE (1 - 1-dose 75+ series)1PHQ-2 (once per calendar year)/ TSH W/FREE T4 XFVRMJ02/OVID-19 VACCINE ( - 2024- season) /07/2025, 05/14/2022, 11/12/2020, Additional history existsINFLUENZA VACCINE (#1)/, 05/07/2022, 07/19/2021, Additional history rbxnosFJHSZ19/10/370593, 12/30/2024, 4BMP61, 03/05/2025, 03/26/2024, Additional history existsDIABETES VBLXBUVBL38/06/2028 06/01/2025, 03/05/2025, 03/26/2024, Additional history existsDTAP/TDAP/TD VACCINE (3 - Td or Tdap), 05/02/2012, 03/10/2005HEPATITIS C TFTFPELEKNiikthiyf01/22/2024PNEUMOCOCCAL VACCINE 50+ EYKSVWdauinyzw84/14/2025, 01/12/2015, 11/28/2013, Additional history existsHPV VACCINE (No Doses Required) CompletedMENINGITIS VACCINEAged OutNo longer eligible based on patient's age to complete this topic Procedures Procedure NamePriorityDate/TimeAssociated DiagnosisCommentsCBC WITH PLATELETS & WZKZXPNWCTSJSkcubmh42/24/2025 10:05 AM CDT PMR (polymyalgia rheumatica) GCA (giant cell arteritis) (H) High risk medication use CBC WITH PLATELETS AND BFXECKSKFDBOMvsyrvm31/24/2025 10:05 AM CDT PMR (polymyalgia rheumatica) GCA (giant cell arteritis) (H) High risk medication use ZFRViuskqe70/24/2025 10:05 AM CDT PMR (polymyalgia rheumatica) GCA (giant cell arteritis) (H) High risk medication use AZPXdoirbs95/24/2025 10:05 AM CDT PMR (polymyalgia rheumatica) GCA (giant cell arteritis) (H) High risk medication use CBC WITH PLATELETS & BFGCLGVLUIFFPwfmdxg00/06/2025 9:56 AM CDT High risk medication use PMR (polymyalgia rheumatica) Temporal arteritis (H) CBC WITH PLATELETS AND MLLLNSSELYDCNhpqxcc63/06/2025 9:56 AM CDT High risk medication use PMR (polymyalgia rheumatica) Temporal arteritis (H) CRP IZCGOJLWJBYMPpcspdi54/06/2025 9:56 AM CDT High risk medication use PMR (polymyalgia rheumatica) Temporal arteritis (H) ERYTHROCYTE SEDIMENTATION RATE BTYKFlpqhyt31/06/2025 9:56 AM CDT High risk medication use PMR (polymyalgia rheumatica) Temporal arteritis (H) COMPREHENSIVE METABOLIC FMUSKIjmxyks49/06/2025 9:56 AM CDT High risk medication use PMR (polymyalgia rheumatica) Temporal arteritis (H) LIPID REFLEX TO DIRECT LDL AQCSSNbfpwkt81/10/2025 10:08 AM CDT Temporal arteritis (H) PMR (polymyalgia rheumatica) On prednisone therapy High risk medication use HEPATITIS C CJLGOBUDFazssvk79/22/2024 1:11 PM CDT GCA (giant cell arteritis) (H) PMR (polymyalgia rheumatica) FYKHIJW1903/22/2024 8:45 AM CDT from Last 3 Months or Most Recently Relevant to Health Maintenance Results * (ABNORMAL) CBC with platelets and differential (06/19/2025 10:05 AM CDT) Only the most recent of2 resultswithin the time period is included. ComponentValueRef RangeTest MethodAnalysis TimePerformed AtPathologist Signature WBC Count4.964.00 - 11.00 10e3/uL06/19/2025 10:10 AM CDTMPLW LABORATORYRBC Count 4.123.80 - 5.20 10e6/uL06/19/2025 10:10 AM CDTMPLW SKRFPKQYXKWvryxqlyus09.711.7 - 15.7 g/dL06/19/2025 10:10 AM CDTMPLW EGVKNFINBVPuqpdmrcza86.735.0 - 47.0 % 06/19/2025 10:10 AM CDTMPLW EBKJAXMRXYLBM36.978.0 - 100.0 fL06/19/2025 10:10 AM CDTMPLW DRHZDJQSXRSBO61.826.5 - 33.0 pg06/19/2025 10:10 AM CDTMPLW LABORATORY MCHC32.831.5 - 36.5 g/dL06/19/2025 10:10 AM CDTMPLW WZMHZPLVARGKJ14.410.0 - 15.0 %06/19/2025 10:10 AM CDTMPLW LABORATORYPlatelet Qqsth188(L)150 - 450 10e3/uL 06/19/2025 10:10 AM CDTMPLW LABORATORY% Qmjbpahfsmt96.5%06/19/2025 10:10 AM CDT [facility]% Xxuoplwdxfe78.8%06/19/2025 10:10 AM CDTMPLW LABORATORY% Wuabxonjq08.9%06/19/2025 10:10 AM CDTMPLW LABORATORY% Eosinophils3.0%06/19/2025 10:10 AM CDTMPLW LABORATORY% Basophils0.6%06/19/2025 10:10 AM CDTMPLW LABORATORY % Immature Granulocytes0.2%06/19/2025 10:10 AM CDTMPLW LABORATORYAbsolute Neutrophils3.201.60 - 8.30 10e3/uL06/19/2025 10:10 AM CDTMPLW LABORATORYAbsolute Lymphocytes0.930.80 - 5.30 10e3/uL06/19/2025 10:10 AM CDTMPLW LABORATORYAbsolute Monocytes0.640.00 - 1.30 10e3/uL06/19/2025 10:10 AM CDTMPLW LABORATORYAbsolute Eosinophils0.150.00 - 0.70 10e3/uL06/19/2025 10:10 AM CDTMPLW LABORATORYAbsolute Basophils<0.040.00 - 0.20 e3/uL06/19/2025 10:10 AM CDTMPLW LABORATORYAbsolute Immature Granulocytes<0.04<=0.40 e3/uL06/19/2025 10:10 AM CDTMPLW LABORATORY Specimen (Source)Anatomical Location / LateralityCollection Method / Volume Collection TimeReceived TimeBloodBLOOD SPECIMEN / UnknownVenipuncture / Unknown 06/19/2025 10:05 AM CDT10/ 10:05 AM CDT Narrative Authorizing ProviderResult TypeResult StatusChristina Ralphmattie KAPOOR-CLAB - BLOOD ORDERABLESFinal ResultPerforming OrganizationAddressCity/State/ZIP CodePhone [place] [address], [facility] * (ABNORMAL) AST (06/19/2025 10:05 AM CDT)ComponentValueRef RangeTest Method Analysis TimePerformed AtPathologist VdaovenrrRTV625(H)0 - 45 U/L1 12:19 PM CDTUU LABORATORYSpecimen (Source)Anatomical Location / Laterality Collection Method / VolumeCollection TimeReceived TimeBloodBLOOD SPECIMEN / UnknownVenipuncture / Axduxro4706/19/2025 10:05 AM CDT1 10:05 AM CDT Narrative Authorizing ProviderResult TypeResult StatusChristina Evansjese KAPOOR-CLAB - BLOOD ORDERABLESFinal ResultPerforming OrganizationAddressCity/State/ZIP CodePhone Number LABORATORY [facility] [address] [facility], [address] * (ABNORMAL) ALT (06/19/2025 10:05 AM CDT)ComponentValueRef RangeTest Method Analysis TimePerformed AtPathologist TjocwibehKQD226(H)0 - 50 U/L1 12:19 PM CDTUU LABORATORYSpecimen (Source)Anatomical Location / Laterality Collection Method / VolumeCollection TimeReceived TimeBloodBLOOD SPECIMEN / UnknownVenipuncture / Adwirbf9006/19/2025 10:05 AM CDT1 10:05 AM CDT Narrative Authorizing ProviderResult TypeResult StatusChristina Evansjese PA-CLAB - BLOOD ORDERABLESFinal ResultPerforming OrganizationAddressCity/State/ZIP CodePhone Number LABORATORY [facility] [address] [facility], [address] [phone] * Erythrocyte sedimentation rate auto (06/01/2025 9:56 AM CDT)ComponentValueRef RangeTest MethodAnalysis TimePerformed AtPathologist SignatureErythrocyte Sedimentation Rate70 - 30 mm/hr06/01/2025 10:09 AM CDTMPLW LABORATORYSpecimen (Source)Anatomical Location / LateralityCollection Method / VolumeCollection TimeReceived TimeBloodBLOOD SPECIMEN / UnknownVenipuncture / Ffxelar7106/01/2025 9:56 AM CDT1 9:56 AM CDT Narrative Authorizing ProviderResult TypeResult Statusbao Krysta Roe PA-CLAB - BLOOD ORDERABLESFinal ResultPerforming OrganizationAddressCity/State/ZIP CodePhone Number [facility] [place] [address], [facility] * CRP inflammation (06/01/2025 9:56 AM CDT)ComponentValueRef RangeTest Method Analysis TimePerformed AtPathologist SignatureCRP Inflammation<3.00<5.00 mg/L 06/01/2025 12:36 PM CDTUU LABORATORYSpecimen (Source)Anatomical Location / LateralityCollection Method / VolumeCollection TimeReceived TimeBloodBLOOD SPECIMEN / UnknownVenipuncture / Mruwybh8006/01/2025 9:56 AM CDT1 9:56 AM CDT Narrative Authorizing ProviderResult TypeResult StatusChristina Roe PA-CLAB - BLOOD ORDERABLESFinal ResultPerforming OrganizationAddressCity/State/ZIP CodePhone Number LABORATORY [facility] [address] [facility], [address] [phone] * (ABNORMAL) Comprehensive metabolic panel (06/01/2025 9:56 AM CDT)Component ValueRef RangeTest MethodAnalysis TimePerformed AtPathologist SignatureSodium 676627 - 145 mmol/L1 12:36 PM CDTUU LABORATORYPotassium4.53.4 - 5.3 mmol/L1 12:36 PM CDTUU LABORATORYCarbon Dioxide (CO2)2422 - 29 mmol/L 06/01/2025 12:36 PM CDTUU LABORATORYAnion Gap87 - 15 mmol/L1 12:36 PM CDTUU LABORATORYUrea Lgoqlcuq02.58.0 - 23.0 mg/dL06/01/2025 12:36 PM CDTUU LABORATORYCreatinine0.710.51 - 0.95 mg/dL06/01/2025 12:36 PM CDTUU LABORATORY GFR Nrwigpec25>60 mL/min/1.79y94806/01/2025 12:36 PM CDTUU LABORATORYComment: eGFR calculated using 2020 CKD-EPI equation.Calcium9.68.8 - 10.4 mg/dL 06/01/2025 12:36 PM CDTUU YYYCWDWPBZUpcpoplc26872 - 107 mmol/L1 12:36 PM CDTUU OPFTGQQTXVLtbctqk3651 - 99 mg/dL06/01/2025 12:36 PM CDTUU LABORATORY Alkaline Omuksyojcfo7767 - 150 U/L1 12:36 PM CDTUU PSWQLCNVQEJIE68(H) 0 - 45 U/L1 12:36 PM CDTUU FXRJRPJLVPXQJ64(H)0 - 50 U/L1 12:36 PM CDTUU LABORATORYProtein Total6.0(L)6.4 - 8.3 g/dL06/01/2025 12:36 PM CDTUU LABORATORYAlbumin4.03.5 - 5.2 g/dL06/01/2025 12:36 PM CDTUU LABORATORY Bilirubin Total0.4<=1.2 mg/dL06/01/2025 12:36 PM CDTUU LABORATORYSpecimen (Source)Anatomical Location / LateralityCollection Method / VolumeCollection TimeReceived TimeBloodBLOOD SPECIMEN / UnknownVenipuncture / Obibudv9106/01/2025 9:56 AM CDT1 9:56 AM CDT Narrative Authorizing ProviderResult TypeResult StatusMebao STINSON - BLOOD ORDERABLESFinal ResultPerforming OrganizationAddressCity/State/ZIP CodePhone Number [facility] LABORATORY [facility] [address] [facility] [address] [facility], [address] [place] [address], [facility] * Lipid panel reflex to direct LDL Fasting (03/05/2025 10:08 AM CDT)Component ValueRef RangeTest MethodAnalysis TimePerformed AtPathologist Signature Uejqdzpxaqb079<200 mg/dL03/05/2025 1:19 PM CDTUU TCODHVSMMRUhmyfsobcrndz88<150 mg/dL03/05/2025 1:19 PM CDTUU LABORATORYDirect Measure HDL87>=50 mg/dL 03/05/2025 1:19 PM CDTUU LABORATORYLDL Cholesterol Rrcsvtuowp05<100 mg/dL 03/05/2025 1:19 PM CDTUU LABORATORYComment:LDL calculated using the Friedewald equation.Non HDL Xcnvndskobu22<130 mg/dL03/05/2025 1:19 PM CDTUU LABORATORY Patient Fasting > 8hrs?Yes03/05/2025 1:19 PM CDTUU LABORATORYSpecimen (Source) Anatomical Location / LateralityCollection Method / VolumeCollection Time Received TimeBloodSTRUCTURE OF RIGHT UPPER LIMB / UnknownVenipuncture / Kddbpap4203/05/2025 10:08 AM CDT03/05/2025 10:08 AM CDT Narrative [facility] LAB[facility]ORY - 03/05/2025 1:19 PM CDT Cholesterol Desirable: < 200 mg/dL Borderline High: 200 - 239 mg/dL High: >= 240 mg/dL Triglycerides Normal: < 150 mg/dL Borderline High: 150 - 199 mg/dL High: 200-499 mg/dL Very High: >= 500 mg/dL Direct Measure HDL Female: >= 50 mg/dL Male: >= 40 mg/dL LDL Cholesterol Desirable: < 100 mg/dL Above Desirable: 100 - 129 mg/dL Borderline High: 130 - 159 mg/dL High: ??160 - 189 mg/dL Very High: >= 190 mg/dL Non HDL Cholesterol Desirable: < 130 mg/dL Above Desirable: 130 - 159 mg/dL Borderline High: 160 - 189 mg/dL High: 190 - 219 mg/dL Very High: >= 220 mg/dL Authorizing ProviderResult TypeResult StatusMebao STINSON - BLOOD ORDERABLESFinal ResultPerforming OrganizationAddressCity/State/ZIP CodePhone Number [facility] LABORATORY [facility] [address] [facility], [address] [place] [phone], [facility] * Hepatitis C antibody (04/17/2024 1:11 PM CDT)ComponentValueRef RangeTest MethodAnalysis TimePerformed AtPathologist SignatureHepatitis C Antibody ZzzjxbuqxtwEhrauybuyrz44/22/2024 8:05 PM CDTUU LABORATORYComment:A nonreactive screening test result does not exclude the possibility [...] months from time of exposure) may have false-negative HCV antibody results due to the time needed for seroconversion (average of 8 to 9 weeks).Specimen (Source)Anatomical Location / LateralityCollection Method / VolumeCollection TimeReceived TimeBlood STRUCTURE OF RIGHT UPPER LIMB / UnknownVenipuncture / Jctdeuh1804/17/2024 1:11 PM CDT04/17/2024 1:24 PM CDT Narrative Authorizing ProviderResult TypeResult StatusZhane Crain MD LAB - BLOOD ORDERABLESFinal ResultPerforming OrganizationAddressCity/State/ZIP CodePhone Number LABORATORY [facility] [address] [facility], [address] * TSH (03/22/2024 8:45 AM CDT)ComponentValueRef RangeTest MethodAnalysis Time Performed AtPathologist SignatureTSH2.400.30 - 4.20 uIU/mL03/22/2024 10:19 AM CDTUU LABORATORYSpecimen (Source)Anatomical Location / LateralityCollection Method / VolumeCollection TimeReceived TimeBloodBLOOD SPECIMEN / Unknown Venipuncture / Vuqibzo2303/22/2024 8:45 AM CDT03/22/2024 9:23 AM CDT Narrative Authorizing ProviderResult TypeResult StatusJona Sears MDLAB - BLOOD ORDERABLESFinal ResultPerforming OrganizationAddressCity/State/ZIP CodePhone Number LABORATORY [facility] [address] [facility], [address] from Last 3 Months or Most Recently Relevant to Health Maintenance Insurance MemberSubscriberPlan / Payer (Effective 1997-Present)Name:Gato Jimenez Member ID:[id number] Relation to Subscriber:SelfName:Gato Jimenez Subscriber ID:[id number] Payer ID:[id number] Group ID:Not on file Type:Medicare Address: ATTN CLAIMS [place] [phone] Advance Directives For more information, please contact: [phone] * Full Code (Latest Code Status on File) Date ActivatedDate InactivatedComments03/25/2024 6:43 PM03/26/2024 9:05 PMAll basic and advanced life-sustaining interventions are performed as appropriate QuestionAnswerCommentsCode status determined by:* Discussion with patient/ legal decision maker * Full Code Date ActivatedDate InactivatedComments03/22/2024 5:39 PM03/25/2024 6:43 PMAll basic and advanced life-sustaining interventions are performed as appropriate QuestionAnswerCommentsCode status determined by:* Discussion with patient/ legal decision maker Care Teams Team MemberRelationshipSpecialtyStart DateEnd Date Feliciano Uribe MD [facility] [address] [place] [address] PCP - GeneralFamily Xxsqgfrr19/6/23 Christina Roe PA-C [address] [place] [address] Physician AssistantRheumatology11/06/23 Christina Roe PA-C [address] [place] [address] Assigned Rheumatology Provider11/09/23 Richie Rowell [facility] [address] [place] [address] PharmacistPharmacist04/08/24 Richie Rowell [facility] [address] [place] [address] Assigned MTM Pharmacist04/18/24 Zhane Crain MD [address] [place] [address] PhysicianRheumatology05/14/24 Saeed Berry MD [address] [place] [address] Assigned Surgical Provider05/19/24
[2025-08-11 10:34] VITALS: O2SAT 98
[2025-08-11 11:06] LABS: Lactate* 1.2 mmol/L (0.5-1.9)
[2025-08-11 11:09] LABS: Hematocrit* 42.5 % (33.0-51.0); Hemoglobin* 13.4 gm/dL (12.0-16.0); Immature Granulocytes Pct Auto 0.3 %; Mean Corpuscular HGB Conc 32 gm/dL (32-36); Mean Corpuscular Hemoglobin 31 pg (26-34); Mean Corpuscular Volume 97 fL (80-100); RDW Coefficient of Variation % 12.9 % (11.5-15.5); Red Blood Count* 4.37 m/uL (4.00-5.20); White Blood Count* 3.88 K/uL (4.50-11.00)
[2025-08-11 11:13] LABS: Immature Granulocytes Abs Auto 0.00 K/uL (0.00-0.30); Lymphocytes Absolute Auto 0.70 K/uL (0.90-2.90); Slide Review Reflex No
[2025-08-11 11:48] LABS: Albumin* 4.0 g/dL (3.3-5.0); Chloride* 106 mmol/L (96-114); Potassium* 4.5 mmol/L (3.6-5.1); Sodium* 133 mmol/L (135-149)
[2025-08-11 11:50] LABS: Blood Urea Nitrogen* 19 mg/dL (7-30); Creatinine* 0.7 mg/dL (0.5-1.5); Est. Creatinine Clearance* 32.77; Estimated Glomerular Filt Rate 88 ml/min
[2025-08-11 11:51] LABS: Alanine Aminotransferase* 54 U/L (4-35); Alkaline Phosphatase* 56 U/L (40-150); Anion Gap 4 mEq/L (7-15); Aspartate Amino Transferase* 57 U/L (12-35); Bilirubin Direct* 0.4 mg/dL (0.0-0.5); Bilirubin Total* 0.8 mg/dL (0.1-1.5); Calcium* 8.9 mg/dL (8.4-10.6); Carbon Dioxide* 23 mmol/L (20-32); Glucose* 103 mg/dL (60-115); Total Protein* 6.2 g/dL (6.0-8.3)
--- NOTE | 2025-08-11 11:57 | ED.GENADULT ---
HPI - General Adult General Chief complaint: Arrhythmia/Palpitations Stated complaint: Heart problems, nausea Time Seen by Provider: 08/11/25 10:20 Source: patient Mode of arrival: ambulatory Limitations: no limitations History of Present Illness HPI narrative: Patient is a 80-year-old female presenting today with palpitations. She states that approximately 3 hours prior to presenting she felt a fluttering in her chest the lasted minutes and then she felt nauseated. A fluttering has since gotten better. She is no longer nauseated. She did not vomit. She denies fevers or chills, no recent illness. She is not coughing. She denies any abdominal pain. She is not having any difficulty eating or drinking. She is not short of breath. Related Data Home Medications ?Medication ?Instructions ?Recorded ?Confirmed calcium carbonate (Oyster Shell 500 mg PO QDAY 06/26/22 02/11/25 Calcium) multivitamin 1 tab PO QAM 06/26/22 02/11/25 amlodipine 10 mg tablet 5 mg PO DAILY 01/02/24 02/11/25 cyanocobalamin (vitamin B-12) 1,000 mcg IM .Q4 weeks 01/02/24 02/11/25 1,000 mcg/mL injection solution tocilizumab 162 mg/0.9 mL 162 mg subcut QWEEK 06/24/24 02/11/25 subcutaneous syringe (Actemra) Previous Rx's ?Medication ?Instructions ?Recorded atorvastatin 10 mg tablet 10 mg PO .Bedtime #90 tabs 02/05/25 fluoxetine 40 mg capsule 40 mg PO DAILY #90 caps 02/05/25 levothyroxine 125 mcg tablet 125 mcg PO QDAY #90 tabs 02/05/25 lisinopril 10 mg tablet 10 mg PO BID #180 tabs 02/05/25 methocarbamol 500 mg tablet 500 mg PO QID PRN muscle spasm #30 02/05/25 tabs metoprolol tartrate 25 mg tablet 25 mg PO BID #180 tabs 02/05/25 nitroglycerin 0.4 mg sublingual 0.4 mg sublingual ONCE PRN chest 02/05/25 tablet pain #25 tabs cholecalciferol (vitamin D3) 1,250 50,000 unit PO QWEEK #12 tabs 06/25/25 mcg (50,000 unit) tablet Allergies Allergy/AdvReac Type Severity Reaction Status Date / Time No Known Allergies Allergy Verified 02/05/25 13:20 Review of Systems Status of ROS: Reports: 10 or more systems reviewed and unremarkable except as noted in History and below [facility] Medical History PMR (polymyalgia rheumatica) ?M35.3 - Polymyalgia rheumatica (ICD-10) Vitamin D deficiency ?E55.9 - Vitamin D deficiency, unspecified (ICD-10) Restless legs syndrome ?G25.81 - Restless legs syndrome (ICD-10) Osteoporosis ?M81.0 - Age-related osteoporosis without current pathological fracture (ICD-10) Osteopenia (05/13/09) ?M85.80 - Other specified disorders of bone density and structure, unspecified site (ICD-10) Obstructive sleep apnea syndrome ?G47.33 - Obstructive sleep apnea (adult) (pediatric) (ICD-10) Muscle spasms of neck ?M62.838 - Other muscle spasm (ICD-10) Hypothyroidism (05/06/09) ?E03.9 - Hypothyroidism, unspecified (ICD-10) Hypertension (05/06/09) ?I10 - Essential (primary) hypertension (ICD-10) Hyperlipidemia (05/06/09) ?E78.5 - Hyperlipidemia, unspecified (ICD-10) History of tear of meniscus of knee joint (05/02/12) ?Z87.828 - Personal history of other (healed) physical injury and trauma (ICD-10) Hiatal hernia (05/06/09) ?K44.9 - Diaphragmatic hernia without obstruction or gangrene (ICD-10) Graves' disease (05/06/09) ?E05.00 - Thyrotoxicosis with diffuse goiter without thyrotoxic crisis or storm (ICD-10) Gastroesophageal reflux disease (05/06/09) ?K21.9 - Gastro-esophageal reflux disease without esophagitis (ICD-10) Depression (05/06/09) ?F32.A - Depression, unspecified (ICD-10) Cerebrovascular accident (CVA) (05/02/12) ?I63.9 - Cerebral infarction, unspecified (ICD-10) Calculus of kidney (05/06/09) ?N20.0 - Calculus of kidney (ICD-10) Surgical History Hx of total knee arthroplasty ?Z96.659 - Presence of unspecified artificial knee joint (ICD-10) Status post gastric bypass for obesity ?Z98.84 - Bariatric surgery status (ICD-10) History of hysterectomy (05/02/12) ?Z90.710 - Acquired absence of both cervix and uterus (ICD-10) History of cystoscopy (05/02/12) ?Z98.890 - Other specified postprocedural states (ICD-10) Family History Father High blood pressure High cholesterol Sister High blood pressure High cholesterol Heart disease Mother Breast cancer, Onset Age: 40 Heart disease Social History What is your current living situation?: I presently have a place to live Problems where you live: no known problems In the past 12 months, utilities in danger of being shut off: no In past 12 months, lack of transportation kept you from medical appts, meetings, work, or getting things needed for daily living: no In the past 12 mos, have been you worried that your food would run out before you had money to buy more?: never true In the past 12 mos, the food you bought just didn't last and you didn't have money to buy more?: never true Smoking Status: Never smoker Do you use any of these nicotine containing products: None Second hand tobacco smoke exposure: No How often do you have a drink containing alcohol: 2-3 times a week Alcohol type: wine How many standard drinks containing alcohol do you have on a typical day: 1 or 2 How often do you have six or more drinks on one occasion: Never AUDIT-C Alcohol total score: 3 Non-prescribed substance use: denies use Caffeine: Yes (DAILY 3) How often does anyone, including family, friends and others, physically hurt you: never How often does anyone, including family, friends and others, insult or talk down to you: never How often does anyone, including family, friends and others, threaten you with harm: never How often does anyone, including family, friends and others, scream or curse at you: never Are you using contraception or practicing any form of control: No service: No Exam Narrative: Exam Narrative: Well-nourished well-developed patient in no acute distress. Alert and oriented X3. Answers questions appropriately. Mood and affect are appropriate. Thoughts are goal oriented and rational. No tangential or magical thinking noted. Patient speaks in full sentences without needing to catch her breath. HEENT: Normocephalic atraumatic. Pupils are equally round reactive to light. Extraocular muscles are intact. Conjunctivae are moist without any icterus noted. Moist mucous membranes. Posterior pharynx is normal. Cardiovascular: Heart is regular rate and rhythm S1 and S2 are present without any murmurs. no palpitations noted. Lungs: Clear to auscultation bilaterally , no pain with deep inspiration. Abdomen: Soft and nontender nondistended with normal bowel sounds. Extremities: Bilateral lower extremities are without edema. Skin: Well perfused without any obvious rashes. Const: Vital Signs, click to edit/add: Vital Signs - 24 hr 08/11/25 10:15 08/11/25 10:34 Temperature 97 F L Pulse Rate [Pulse Oximeter] 53 L Respiratory Rate 16 Blood Pressure [Ri ght Upper Arm] 204/74 H Pulse Oximetry 98 98 Oxygen Delivery Me thod Room Air Course Course ED Course: Patient states that she does have a history of paroxysmal atrial fibrillation. Could certainly be that patient went into atrial fibrillation and then back into sinus rhythm. Her EKG, read by me, shows sinus bradycardia with a pulse of 53. CBC shows mild thrombocytopenia with a platelet count of 227525. Sodium is slightly low at 133. LFTs are minimally elevated with an AST of 57 and ALT of 54- This is not new for the patient. CRP is normal. Patient did not have any arrhythmias noted on [facility] while she was here. Vital Signs Vital signs: Initial Vital Signs Temperature 97 F L 08/11/25 10:15 Temperature Source Temporal Artery Scan 08/11/25 10:15 Pulse Rate 53 L 08/11/25 10:15 Respiratory Rate 16 08/11/25 10:15 Blood Pressure 204/74 H 08/11/25 10:15 Blood Pressure Mean 117 H 08/11/25 10:15 Blood Pressure Position Sitting 08/11/25 10:15 Pulse Oximetry 98 08/11/25 10:15 Oxygen Delivery Method Room Air 08/11/25 10:15 Vital Signs Temperature 97 F L 08/11/25 10:15 Pulse Rate 53 L 08/11/25 10:15 Respiratory Rate 16 08/11/25 10:15 Blood Pressure 204/74 H 08/11/25 10:15 Pulse Oximetry 98 08/11/25 10:15 Oxygen Delivery Method Room Air 08/11/25 10:15 Temperature 97 F L 08/11/25 10:15 Pulse Rate 53 L 08/11/25 10:15 Respiratory Rate 16 08/11/25 10:15 Blood Pressure 204/74 H 08/11/25 10:15 Pulse Oximetry 98 08/11/25 10:34 Oxygen Delivery Method Room Air 08/11/25 10:15 Medical Decision Making MDM Narrative Medical decision making narrative: 80-year-old female with a brief episode of palpitations. Now resolved. Patient will keep an eye on her symptoms and follow up as needed. Lab Data Lab results reviewed: Yes I reviewed the patient's lab results Labs: Lab Results 08/11/25 08/11/25 Range/Units 10:35 10:55 WBC 3.88 L (4.50-11.00) K/uL RBC 4.37 (4.00-5.20) m/uL Hgb 13.4 (12.0-16.0) gm/dL Hct 42.5 (33.0-51.0) % MCV 97 (80-100) fL MCH 31 (26-34) pg MCHC 32 (32-36) gm/dL RDW Coeff of [place] 12.9 (11.5-15.5) % Plt Count 120 L (140-440) K/uL Neut % (Auto) 63.5 (42.0-72.0) % Lymph % (Auto) 17.3 L (20-44) % [place] % (Auto) 14.2 H (0.0-11.0) % Eos % (Auto) 3.9 (0.0-7.0) % Baso % (Auto) 0.8 (0.0-3.0) % Neut # (Auto) 2.50 (1.7-7.0) K/uL Lymph # (Auto) 0.70 L (0.90-2.90) K/uL [place] # (Auto) 0.60 (0.00-0.90) K/UL Eos # (Auto) 0.20 (0.00-0.50) K/uL Baso # (Auto) 0.00 (0.00-0.30) K/uL Abs Immat Gran (auto) 0.00 (0.00-0.30) K/uL Imm/Tot Granulo (auto) 0.3 % Sodium 133 L (135-149) mmol/L Potassium 4.5 (3.6-5.1) mmol/L Chloride 106 (96-114) mmol/L Carbon Dioxide 23 (20-32) mmol/L Anion Gap 4 L (7-15) mEq/L BUN 19 (7-30) mg/dL Creatinine 0.7 (0.5-1.5) mg/dL Estimated Creat Clear 32.77 Estimated GFR 88 ml/min Glucose 103 (60-115) mg/dL Lactate 1.2 (0.5-1.9) mmol/L Calcium 8.9 (8.4-10.6) mg/dL Magnesium 1.8 (1.5-2.6) mg/dL Total Bilirubin 0.8 (0.1-1.5) mg/dL Direct Bilirubin 0.4 (0.0-0.5) mg/dL AST 57 H (12-35) U/L ALT 54 H (4-35) U/L Alkaline Phosphatase 56 (40-150) U/L POC Troponin I High Sensi 7.7 (2.9-13.0) pg/mL C-Reactive Protein < 0.5 L (0.5-1.0) mg/dL Total Protein 6.2 (6.0-8.3) g/dL Albumin 4.0 (3.3-5.0) g/dL ECG Data Attestation: I personally reviewed and interpreted this ECG as follows: Discharge Plan Discharge Clinical Impression: Heart palpitations Patient Disposition: Home, Self-Care Condition: Stable Instructions: Heart Palpitations (ED) Prescriptions: No Action multivitamin Tablet 1 tab PO QAM calcium carbonate [Oyster Shell Calcium] 500 mg calcium (1,250 mg) tablet 500 mg PO QDAY cyanocobalamin (vitamin B-12) 1,000 mcg/mL solution 1,000 mcg IM .Q4 weeks Actemra 162 mg/0.9 mL syringe 162 mg subcut QWEEK atorvastatin 10 mg tablet 10 mg PO .Bedtime Qty: 90 3RF levothyroxine 125 mcg tablet 125 mcg PO QDAY Qty: 90 3RF fluoxetine 40 mg capsule 40 mg PO DAILY Qty: 90 3RF lisinopril 10 mg tablet 10 mg PO BID Qty: 180 3RF methocarbamol 500 mg tablet 500 mg PO QID PRN (Reason: muscle spasm) Qty: 30 0RF metoprolol tartrate 25 mg tablet 25 mg PO BID Qty: 180 3RF nitroglycerin 0.4 mg tablet, sublingual 0.4 mg sublingual ONCE PRN (Reason: chest pain) Qty: 25 0RF Rx Instructions: PRN CHEST PAIN, take every 5 min x 3 doses max amlodipine 10 mg tablet 5 mg PO DAILY cholecalciferol (vitamin D3) 1,250 mcg (50,000 unit) tablet 50,000 unit PO QWEEK Qty: 12 3RF Follow Up/Referrals: Feliciano Uribe MD [Primary Care Provider, Family Practice] Stand Alone Forms: [facility] Info Instructions
== END 2025-08-11 12:18 | disposition home or self-care (01) ==
PROVIDERS: Emergency Provider Family Medicine; PCP Family Medicine
DX: R00.2 Palpitations (principal)
CPT/HCPCS: 36415; 80048; 80076; 83605; 83735; 84484; 85025; 86140; 93005; 94761; 99284